=== PATIENT | female | born 1940 | race Caucasian/White ===

== ENCOUNTER 2016-03-09 14:12 | Observation (INO) | payer MEDICARE ==
--- NOTE | 2016-03-09 15:30 | ED ---
Fall HPI <Perfecto Camacho - Last Filed: 03/09/16 17:02> - General Source: patient, RN notes reviewed Mode of arrival: wheelchair <Johanny Cai - Last Filed: 03/09/16 17:29> - General Chief Complaint: Fall Stated Complaint: Fall Time Seen by Provider: 03/09/16 15:03 - History of Present Illness Initial Comments: 75 yo female presents to the ER with cc of fall. Patient states that yesterday she fell. Patient states all of a sudden she fell. Patient denies any lightheadedness or dizziness or chest pain or shortness of breath for the fall but does not really remember the fall. Patient was out for a few minutes after she fell. Patient felt left side of the face. Patient states she has left knee and right ankle pain from the fall as well. Patient states since the fall she just feels more unsteady than normal. Patient states isn't seen because her legs were just seems like if she didn't have her walker she'll most fall forward every time that she got up to move. Patient states she does have a little bit of a headache at this time he'll deep into her skull. Patient denies any neck pain. Patient denies any nausea vomiting. Patient states that she was concerned due to the fall so she thought that she should be evaluated. Patient denies any recent fever, chills, shortness of breath, chest pain, back pain, abdominal pain, nausea vomiting, numbness or tingling, dysuria or hematuria, constipation or diarrhea, headaches or visual changes, or any other current symptoms. (Johanny Cai) - Related Data Home Medications Medication Instructions Recorded Confirmed Adalimumab [Humira] 40 mg SQ WE 02/26/14 03/09/16 Levothyroxine Sodium [Synthroid] 274 mcg PO MOTUWETHFRSA 02/26/14 03/09/16 Simvastatin [Simvastatin] 40 mg PO HS 02/26/14 03/09/16 glyBURIDE/METFORMIN HCL 1 tab PO BID 02/26/14 03/09/16 [Glucovance 2.5-500 mg Tablet] Bisacodyl [Dulcolax] 5 mg PO QID 02/27/14 03/09/16 Calcium Carbonate/Vitamin D3 1 tab PO BID 02/27/14 03/09/16 [Calcium 600 + Vit D Tablet] Carisoprodol [Soma] 350 mg PO ACHS 02/27/14 03/09/16 Clotrimazole Cream [Lotrimin Cream] 1 applic TOPICAL DAILY PRN 02/27/14 03/09/16 Ergocalciferol [Vitamin D2 50,000 units PO LONG 02/27/14 03/09/16 (DRISDOL)] Fexofenadine/Pseudoephedrine 1 tab PO QID 02/27/14 03/09/16 [Iris-D 24 Hour Tablet] Gabapentin [Neurontin] 1,200 mg PO TID 02/27/14 03/09/16 Glucosamine Sulfate 1,500 mg PO DAILY 02/27/14 03/09/16 HYDROcodone/APAP 10-325MG [[place] 1 tab PO TID PRN 02/27/14 03/09/16 10-325] Insulin NPH Hum/Reg Insulin Hm See Protocol SQ BID 02/27/14 03/09/16 [NovoLIN 70-30 100 UNIT/ML VIAL] Lansoprazole [Prevacid] 15 mg PO HS 02/27/14 03/09/16 Levothyroxine Sodium [Synthroid] 137 mcg PO LONG 02/27/14 03/09/16 Morphine Sulfate ER [Ms Contin 30 mg PO Q12HR 02/27/14 03/09/16 30Mg] Multivitamins, Thera [Multivitamin] 1 tab PO DAILY 02/27/14 03/09/16 Pilocarpine HCl [Salagen] 7.5 mg PO TID 02/27/14 03/09/16 predniSONE 4 mg PO QAM 02/27/14 03/09/16 Aspirin 325 mg PO DAILY 03/09/16 03/09/16 Gabapentin 1,600 mg PO HS 03/09/16 03/09/16 Latanoprost [Xalatan 0.005%] 1 drop BOTH EYES HS 03/09/16 03/09/16 Magnesium 600 mg PO DAILY 03/09/16 03/09/16 Moexipril HCl [Univasc] 15 mg PO QAM 03/09/16 03/09/16 Psyllium Husk [Konsyl] 0.52 gm PO DAILY 03/09/16 03/09/16 hydrOXYzine HCL [Atarax] 50 mg PO HS 03/09/16 03/09/16 Allergies Allergy/AdvReac Type Severity Reaction Status Date / Time adhesive Allergy Rash/Hives Verified 03/09/16 15:28 cephalexin [From Keflex] Allergy Rash/Hives Verified 03/09/16 15:28 Sulfa (Sulfonamide Allergy Rash/Hives Verified 03/09/16 15:28 Antibiotics) Review of Systems ROS Other: All systems not noted in ROS Statement are negative. <Perfecto Camacho - Last Filed: 03/09/16 17:02> ROS Other: All systems not noted in ROS Statement are negative. <Johanny Cai - Last Filed: 03/09/16 17:29> ROS Statement: Those systems with pertinent positive or pertinent negative responses have been documented in the HPI. Past Medical History Past Medical History: Cancer, Diabetes Mellitus, Musculoskeletal Disorder, Neurologic Disorder, Osteoarthritis (OA), Rheumatoid Arthritis (RA), Thyroid Disorder Additional Past Medical History / Comment(s): spinal stenosis, renauds,sjogrens , hypothyroidism, acute kidney failure psoriasis History of Any Multi-Drug Resistant Organisms: MRSA Date of last positivie culture/infection: feb 2014 MDRO Source:: lungs Past Surgical History: Back Surgery, Breast Surgery, Orthopedic Surgery Additional Past Surgical History / Comment(s): cataracts Past Anesthesia/Blood Transfusion Reactions: No Reported Reaction Past Psychological History: No Psychological Hx Reported Additional Psychological History / Comment(s): She does have a history of prior MRSA infection, with the BURSITIS, DID REQUIRE SURGICAL DRAINAGE AND ANTIBIOTIC THERAPY. Smoking Status: Former smoker Past Alcohol Use History: None Reported Past Drug Use History: None Reported - Past Family History Sister(s) Additional Family Medical History / Comment(s): at age 34 with lupus <Johanny Cai - Last Filed: 03/09/16 17:29> General Exam Limitations: no limitations General appearance: alert Head exam: Present: other (Patient does appear to have ecchymosis around the left eye with associated lacerations.) Eye exam: Present: normal appearance ENT exam: Present: normal exam, mucous membranes moist Neck exam: Present: normal inspection. Absent: tenderness, meningismus, lymphadenopathy Respiratory exam: Present: normal lung sounds bilaterally. Absent: respiratory distress, wheezes, rales, rhonchi, stridor Cardiovascular Exam: Present: regular rate, normal rhythm, normal heart sounds. Absent: systolic murmur, diastolic murmur, rubs, gallop, clicks GI/Abdominal exam: Present: soft, normal bowel sounds. Absent: distended, tenderness, guarding, rebound, rigid Extremities exam: Present: normal inspection, full ROM (Except for the right ankle. Patient has pain and limited flexion and extensionmore associated with flexion and extension.), tenderness (Behind the right posterior calf), normal capillary refill. Absent: pedal edema, joint swelling, calf tenderness Back exam: Present: normal inspection Neurological exam: Present: alert, oriented X3, CN II-XII intact, reflexes normal, other. Absent: motor sensory deficit Psychiatric exam: Present: normal affect, normal mood Skin exam: Present: warm, dry, intact, normal color. Absent: rash <Johanny Cai - Last Filed: 03/09/16 17:29> Procedures - Orthopedic Splinting/Casting Injury #1 Side: right Lower Extremity Injury Location: foot Lower Extremity Immobilizer: posterior splint (short leg ) <Johanny Cai - Last Filed: 03/09/16 17:29> Medical Decision Making <Perfecto Camacho - Last Filed: 03/09/16 17:02> - Lab Data Result diagrams: 03/09/16 16:48 03/09/16 16:48 - Radiology Data Radiology results: report reviewed, image reviewed <Johanny Cai - Last Filed: 03/09/16 17:29> - Medical Decision Making The patient was seen and examined. All diagnostics were reviewed. The case was discussed with the PA and I agree with the findings as documented. (Perfecto Camacho) 75-year-old female presents emergency Department chief complaint of fall. At this time patient's head and C-spine and facial bone Scans do appear to be negative. Patient's x-ray and CAT scan of foot due to a calcaneal fracture with an Achilles tendon rupture with a fifth metatarsal fracture as well. This patient was placed in a splint. Due to patient being unsteady on her feet and unable to not bear weight to the right foot and be safe at home we will admit the patient. Due to this being a fall at his in protocol that we did contact orthopedic on-call Dr. Cormier regarding the admission he states does not believe the patient needs to be admitted for the fracture he does not want to be the person that the patient is admitted to. Dr. Hart the patient's Imitrex does agree to the admission due to her chronic issues her obesity her difficulty moving around along with a new foot fracture and unable to bear weight on only one leg and get around the house he does agree to the admission we will admit to Dr. Hart and consult Dr. Cormier We discussed with the patient who is in agreement with the plan. Patient does have chronic dizziness chronic double vision and chronic many other issues. At this time this would be a safer approach for the patient's continued care and outpatient follow-up. This was discussed the patient and family who are in agreement. (Johanny Cai) - Lab Data Lab Results 03/09/16 03/09/16 03/09/16 Range/Units 16:48 16:48 16:48 WBC 9.4 (3.8-10.6) k/uL RBC 4.34 (3.80-5.40) m/uL Hgb 12.4 (11.4-16.0) gm/dL Hct 39.6 (34.0-46.0) % MCV 91.1 (80.0-100.0) fL MCH 28.6 (25.0-35.0) pg MCHC 31.4 (31.0-37.0) g/dL RDW 14.2 (11.5-15.5) % Plt Count 207 (150-450) k/uL Neutrophils % 65 % Lymphocytes % 25 % Monocytes % 7 % Eosinophils % 2 % Basophils % 1 % Neutrophils # 6.1 (1.3-7.7) k/uL Lymphocytes # 2.3 (1.0-4.8) k/uL Monocytes # 0.6 (0-1.0) k/uL Eosinophils # 0.2 (0-0.7) k/uL Basophils # 0.1 (0-0.2) k/uL PT 10.5 (9.0-12.0) sec INR 1.0 (<1.1) APTT 23.6 (22.0-30.0) sec Sodium 138 (137-145) mmol/L Potassium 4.7 (3.5-5.1) mmol/L Chloride 97 L (98-107) mmol/L Carbon Dioxide 31 H (22-30) mmol/L Anion Gap 10 mmol/L BUN 19 H (7-17) mg/dL Creatinine 0.77 (0.52-1.04) mg/dL Est GFR (MDRD) Af Amer >60 (>60 ml/min/1.73 sqM) Est GFR (MDRD) Non-Af >60 (>60 ml/min/1.73 sqM) Glucose 174 H (74-99) mg/dL Calcium 9.3 (8.4-10.2) mg/dL Total Bilirubin 0.3 (0.2-1.3) mg/dL AST 30 (14-36) U/L ALT 33 (9-52) U/L Alkaline Phosphatase 63 (38-126) U/L Total Protein 6.7 (6.3-8.2) g/dL Albumin 3.9 (3.5-5.0) g/dL Disposition <Perfecto Camacho - Last Filed: 03/09/16 17:02> Time of Disposition: 17:06 Decision Date: 03/09/16 Decision Time: 17:06 <Johanny Cai - Last Filed: 03/09/16 17:29> Clinical Impression: Fall, Contusion, eye, left, Concussion with loss of consciousness, Abrasion, left knee, initial encounter, Fracture of metatarsal of right foot, closed, Avulsion fracture of calcaneus, Avulsion of achilles tendon Disposition: ADMITTED IP TO THIS [facility] Condition: Stable
--- NOTE | 2016-03-09 16:03 | XR ---
EXAMINATION TYPE: XR ankle complete RT DATE OF EXAM: 03/09/2016 3:59 PM COMPARISON: NONE HISTORY: Pain fall TECHNIQUE: 3 views right ankle FINDINGS: Degenerative joint changes are at the ankle. Secondary ossification centers or old fracture s are evident in the medial malleolus. There is soft tissue swelling over the lateral malleolus. Ankl e mortise is intact. A fracture of the ankle is not identified There is an avulsion and displacement of the posterior superior calcaneus on the lateral projection. Also correlate for Achilles tendon avulsion. On the frontal and oblique views there is a broad space between the first and second metatarsals part ially visualized. This could suggest an underlying Lisfranc fracture. Additional evaluation of the fo ot is recommended. IMPRESSION: 1. Avulsion from the superior posterior calcaneus. Secondary avulsion of the Achilles tendon is also suspected. 2. Additional evaluation of foot is recommended. There is a broad space between the first and second metatarsals suggestive for Lisfranc fracture. 3. Soft tissue swelling lateral malleolus.
--- NOTE | 2016-03-09 16:04 | XR ---
EXAMINATION TYPE: XR knee complete LT DATE OF EXAM: 03/09/2016 3:59 PM COMPARISON: NONE HISTORY: Pain, fall TECHNIQUE: 3 view left knee FINDINGS: There is loss of joint space from the medial compartment. Medial and lateral tibial plateau spurring is present. Moderate narrowing of the lateral compartment joint space is present. Medial an d lateral femoral condylar spurring is present. No significant joint effusion is evident. Patellofemo ral spurring is present. IMPRESSION: 1. No acute osseous abnormality. 2. Moderately advanced degenerative changes left knee
--- NOTE | 2016-03-09 16:23 | CT ---
EXAMINATION TYPE: CT brain simon wo con DATE OF EXAM: 03/09/2016 4:13 PM COMPARISON: NONE HISTORY: Left sided facial bruising post fall yesterday CT DLP: 2610 mGycm, Automated exposure control for dose reduction was used. CONTRAST: None CT of the brain is performed utilizing 3 mm thick sections through the posterior fossa and 3 mm thick sections through the remaining calvarium. Study is performed within 24 hours of arrival to the hospital. No abnormal hyperdensity is present to suggest an acute intracranial hemorrhage. No mass lesion is evident. No acute infarcts are evident. Minimal periventricular white matter ischemic type changes may be pre sent. Ventricles and sulci are appropriate for the patient age. Paranasal sinuses and mastoid air cells within the [id number] are clear. IMPRESSIONS: 1. No acute intracranial process. CT cervical spine. COMPARISON: None CT of the cervical spine is performed in the axial plane at 2 mm thick sections. Reconstructed image s in the coronal, and sagittal plane are reviewed on the computer. No acute fractures are evident. There is a grade 1 spondylolisthesis of C7 anterior and T1. Postsurgical changes are present C4-C6 Vertebral body heights are preserved. No spinal canal stenosis is evident. Severe left and moderate right foraminal stenosis at C3-4 level is present due to uncovertebral joint hypertrophy and facet hypertrophy. There is severe right foraminal stenosis C4-C5. IMPRESSIONS: 1. Multilevel degenerative disc changes. 2. Postsurgical changes. 3. Foraminal stenosis discussed above
--- NOTE | 2016-03-09 16:25 | CT ---
EXAMINATION TYPE: CT facial bones wo con DATE OF EXAM: 03/09/2016 4:13 PM COMPARISON: NONE HISTORY: Left sided facial bruising post fall yesterday CT DLP: 2610 mGycm Automated exposure control for dose reduction was used. TECHNIQUE: CT scan of the sinuses is performed without contrast, axial images are obtained, coronal r eformatted images are also reviewed. FINDINGS: No acute fractures are evident. The maxillary spine appears intact. Maxillary sinuses are clear. Ethm oid air cells are clear. Sphenoid sinuses are clear. Frontal sinuses are normal. No acute fractures a re evident. Zygomatic arches are intact. Greater wings of the sphenoid are normal. Temporomandibular joints appear normal. Right septal deviation is present. The ostiomeatal units are patent rate orbits are symmetrical. No b lowout fractures are evident. Some mild left cheek periorbital and left lateral soft tissue swelling is present. IMPRESSION: 1. Mild superficial soft tissue swelling. 2. No underlying fractures are evident.
--- NOTE | 2016-03-09 16:42 | CT ---
EXAMINATION TYPE: CT foot RT wo con DATE OF EXAM: 03/09/2016 4:34 PM COMPARISON: NONE HISTORY: Recent falls. Right foot pain. CT DLP: 169.20 mGycm Automated exposure control for dose reduction was used. Three-D reconstructed images are performed separately by the technologist on a separate computer revi ewed on the PACS. FINDINGS: Degenerative changes are noted through the ankle mortise. Acute fracture at the ankle mortise is not identified. There is an avulsion from the superior calcaneus. Additional calcification may be present more superi or to the calcaneal avulsion suggested for Achilles tendon tear. Soft tissue increased density can be compatible with the Achilles tendon tear. The space between the first and second metatarsal identified on the ankle images appears to be relate d to degenerative change in these images. An acute tarsal fracture is not identified. There is a nond isplaced fracture of the proximal fifth metatarsal. IMPRESSION: 1. AVULSION FROM THE POSTERIOR SUPERIOR CALCANEUS. 2. AVULSION OF THE ACHILLES TENDON INSERTION FROM THE CALCANEAL AVULSION. 3. NONDISPLACED FRACTURE PROXIMAL FIFTH METATARSAL. 4. DEGENERATIVE JOINT CHANGES.
[2016-03-09 17:03] LABS: Basophils # (A) 0.1 k/uL (0-0.2); Basophils % (A) 1 %; CH 28.8; CHCM 31.8; Eosinophils # (A) 0.2 k/uL (0-0.7); Eosinophils % (A) 2 %; HCT 39.6 % (34.0-46.0); HDW 2.46; HGB 12.4 gm/dL (11.4-16.0); Luc # (Auto) 0.13; Luc % (Auto) 1; Lymphocytes # (A) 2.3 k/uL (1.0-4.8); Lymphocytes % (A) 25 %; MCH 28.6 pg (25.0-35.0); MCHC 31.4 g/dL (31.0-37.0); MCV 91.1 fL (80.0-100.0); Mean Platelet Volume 7.4; Monocytes # (A) 0.6 k/uL (0-1.0); Monocytes % (A) 7 %; Neutrophils # (A) 6.1 k/uL (1.3-7.7); Neutrophils % (A) 65 %; RBC 4.34 m/uL (3.80-5.40); RDW 14.2 % (11.5-15.5); WBC 9.4 k/uL (3.8-10.6); WBC (Perox) 9.71
[2016-03-09] MEDS ORDERED: ONDANSETRON 4 MG/2 ML VIAL IVP PRN (17:07)
[2016-03-09] MEDS ORDERED: NALOXONE 0.4 MG/ML 1 ML VIAL IV PRN (17:07)
[2016-03-09] MEDS ORDERED: HYDROcodone/APAP 10-325MG 1 EACH TAB PO PRN ×2 (17:11→21:49)
[2016-03-09] MEDS ORDERED: CLOTRIMAZOLE 1% CREAM 15 GM TUBE TOPICAL PRN (17:11)
[2016-03-09 17:13] LABS: Partial Thromboplastin Time 23.6 sec (22.0-30.0); Prothrombin Time 10.5 sec (9.0-12.0)
[2016-03-09] MEDS ORDERED: ADALIMUMAB 40 MG SQ SCH (17:15)
[2016-03-09 17:16] LABS: ALT 33 U/L (9-52); AST 30 U/L (14-36); Alkaline Phosphatase 63 U/L (38-126); Anion Gap 10 mmol/L; Blood Urea Nitrogen 19 mg/dL (7-17); Calcium 9.3 mg/dL (8.4-10.2); Carbon Dioxide 31 mmol/L (22-30); Chloride 97 mmol/L (98-107); Glucose 174 mg/dL (74-99); Non-African American GFR(MDRD) >60 (>60 ml/min/1.73 sqM); Potassium 4.7 mmol/L (3.5-5.1); Sodium 138 mmol/L (137-145); Total Bilirubin 0.3 mg/dL (0.2-1.3); Total Protein 6.7 g/dL (6.3-8.2)
[2016-03-09] MEDS ORDERED: glipiZIDE 5 MG TAB PO SCH (18:00)
[2016-03-09] MEDS ORDERED: LORATADINE-PSEUDOEPH 5-120 MG 1 EACH TAB.ER.12H PO PRN (18:00)
[2016-03-09] MEDS ORDERED: metFORMIN 500 MG TAB PO SCH (18:00)
[2016-03-09] MEDS ORDERED: GABAPENTIN 400 MG CAP PO SCH ×2 (18:00→21:00)
[2016-03-09 20:53] LABS: Glucose,Whole Blood 202 mg/dL (75-99)
[2016-03-09] MEDS ORDERED: LATANOPROST 0.005% OPHTH DROPS 2.5 ML BTL BOTH EYES SCH (21:00)
[2016-03-09] MEDS ORDERED: NEURONTIN 800 MG PO SCH (21:00)
[2016-03-09] MEDS ORDERED: hydrOXYzine HCL 25 MG TAB PO SCH (21:00)
[2016-03-09] MEDS ORDERED: ATORVASTATIN 20 MG TAB PO SCH (21:00)
[2016-03-09] MEDS ORDERED: PANTOPRAZOLE 40 MG TABLET PO SCH (21:00)
[2016-03-09] MEDS: CARISOPRODOL 350 MG TAB PO SCH ×2 (21:01→23:24)
[2016-03-09] MEDS: BISACODYL 5 MG TABLET.DR PO SCH (21:01)
[2016-03-09] MEDS: CALCIUM CARB-VIT D 500MG-200UN 1 EACH TAB PO SCH (21:02)
[2016-03-09] MEDS: MORPHINE SULFATE ER 30 MG TABLET PO SCH (21:02)
[2016-03-09] MEDS: PILOCARPINE 5 MG TAB PO SCH (21:03)
[2016-03-09] MEDS ORDERED: MORPHINE SULFATE ER 30 MG TABLET PO STA (21:50)
[2016-03-10] MEDS: SODIUM CHLORIDE 0.9% 1,000 ML IV SCH ×3 (04:05→15:29)
[2016-03-10] MEDS ORDERED: LEVOTHYROXINE 137 MCG TAB PO SCH (06:30)
[2016-03-10 06:58] LABS: Glucose,Whole Blood 126 mg/dL (75-99)
[2016-03-10] MEDS ORDERED: GABAPENTIN 400 MG CAP PO SCH (07:30)
[2016-03-10] MEDS: INSULIN LISPRO (humaLOG) 300 UNIT/3 ML VIAL SQ SCH ×2 (07:54→13:21)
[2016-03-10] MEDS ORDERED: HYDROmorphone 1 MG/ML 1 ML SYRINGE IVP PRN (08:36)
--- NOTE | 2016-03-10 08:36 | P.HPIM ---
History of Present Illness This is a history and physical on a 75-year-old white female who has a history of diabetic neuropathy. The patient states she fell secondary to the fact that she has visual distortion and depth perception issues. She states she does struggle with this. Because of the fall, foot CT does show avulsion fracture of the posterior superior calcaneus with Achilles tendon insertion issue from the calcaneal avulsion. She also hasfracture of the proximal fifth metatarsal secondary to the fall. Have kept her nothing by mouth if orthopedics needs to repair from a surgical perspective. She is requesting Neurontin for her chronic neuropathic pain. I will allow this medication to continue. She is also on diabetes medication which will be held secondary to being nothing by mouth. Review of Systems Constitutional: Denies chills, Denies fever Eyes: left diplopia Ears, nose, mouth and throat: Denies headache, Denies sore throat Cardiovascular: Denies chest pain, Denies shortness of breath Respiratory: Denies cough Gastrointestinal: Denies abdominal pain, Denies diarrhea, Denies nausea, Denies vomiting Genitourinary: Denies dysuria, Denies hematuria Musculoskeletal: Denies myalgias Past Medical History Past Medical History: Cancer, Diabetes Mellitus, Musculoskeletal Disorder, Neurologic Disorder, Osteoarthritis (OA), Pneumonia, Rheumatoid Arthritis (RA), Thyroid Disorder Additional Past Medical History / Comment(s): spinal stenosis, reYnauds,sjogrens ," BALANCE ISSUES,SINUS 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 Past Anesthesia/Blood Transfusion Reactions: No Reported Reaction Past Psychological History: No Psychological Hx Reported Additional Psychological History / Comment(s): She does have a history of prior MRSA infection, with the BURSITIS, DID REQUIRE SURGICAL DRAINAGE AND ANTIBIOTIC THERAPY. Smoking Status: Former smoker Past Alcohol Use History: None Reported Additional Past Alcohol Use History / Comment(s): QUIT SMOKING 1970 Past Drug Use History: None Reported - Past Family History Mother Family Medical History: CVA/TIA Additional Family Medical History / Comment(s): RUPTURED BOWEL Father Family Medical History: Cancer, Pneumonia Additional Family Medical History / Comment(s): ASPIRATIVE PNE Sister(s) Additional Family Medical History / Comment(s): at age 34 with lupus Medications and Allergies Home Medications Medication Instructions Recorded Confirmed Type Adalimumab [Humira] 40 mg SQ WE 02/26/14 03/09/16 History Levothyroxine Sodium [Synthroid] 274 mcg PO MOTUWETHFRSA 02/26/14 03/09/16 History Simvastatin [Simvastatin] 40 mg PO HS 02/26/14 03/09/16 History glyBURIDE/METFORMIN HCL 1 tab PO BID 02/26/14 03/09/16 History [Glucovance 2.5-500 mg Tablet] Bisacodyl [Dulcolax] 5 mg PO QID 02/27/14 03/09/16 History Calcium Carbonate/Vitamin D3 1 tab PO BID 02/27/14 03/09/16 History [Calcium 600 + Vit D Tablet] Carisoprodol [Soma] 350 mg PO ACHS 02/27/14 03/09/16 History Clotrimazole Cream [Lotrimin Cream] 1 applic TOPICAL DAILY PRN 02/27/14 History Ergocalciferol [Vitamin D2 50,000 units PO LONG 02/27/14 03/09/16 History (DRISDOL)] Fexofenadine/Pseudoephedrine 1 tab PO QID 02/27/14 03/09/16 History [Iris-D 24 Hour Tablet] Gabapentin [Neurontin] 1,200 mg PO TID 02/27/14 03/09/16 History Glucosamine Sulfate 1,500 mg PO DAILY 02/27/14 03/09/16 History HYDROcodone/APAP 10-325MG [[place] 1 tab PO TID PRN 02/27/14 03/09/16 History 10-325] Insulin NPH Hum/Reg Insulin Hm See Protocol SQ BID 02/27/14 03/09/16 History [NovoLIN 70-30 100 UNIT/ML VIAL] Lansoprazole [Prevacid] 15 mg PO HS 02/27/14 03/09/16 History Levothyroxine Sodium [Synthroid] 137 mcg PO LONG 02/27/14 03/09/16 History Morphine Sulfate ER [Ms Contin 30 mg PO Q12HR 02/27/14 03/09/16 History 30Mg] Multivitamins, Thera [Multivitamin] 1 tab PO DAILY 02/27/14 03/09/16 History Pilocarpine HCl [Salagen] 7.5 mg PO TID 02/27/14 03/09/16 History predniSONE 4 mg PO QAM 02/27/14 03/09/16 History Aspirin 325 mg PO DAILY 03/09/16 03/09/16 History Gabapentin 1,600 mg PO HS 03/09/16 03/09/16 History Latanoprost [Xalatan 0.005%] 1 drop BOTH EYES HS 03/09/16 03/09/16 History Magnesium 600 mg PO DAILY 03/09/16 03/09/16 History Moexipril HCl [Univasc] 15 mg PO QAM 03/09/16 03/09/16 History Psyllium Husk [Konsyl] 0.52 gm PO DAILY 03/09/16 03/09/16 History hydrOXYzine HCL [Atarax] 50 mg PO HS 03/09/16 03/09/16 History Allergies Allergy/AdvReac Type Severity Reaction Status Date / Time adhesive Allergy Rash/Hives Verified 03/09/16 15:28 cephalexin [From Keflex] Allergy Rash/Hives Verified 03/09/16 15:28 Sulfa (Sulfonamide Allergy Rash/Hives Verified 03/09/16 15:28 Antibiotics) Physical Exam Vitals: Vital Signs Temp Pulse Pulse Pulse Resp BP BP 03/10/16 07:00 97.8 F 74 18 131/60 03/09/16 23:00 97.8 F 80 16 153/63 03/09/16 20:29 97.3 F L 81 16 140/65 03/09/16 18:26 79 14 142/65 Pulse Ox 03/10/16 07:00 93 L 03/09/16 23:00 94 L 03/09/16 20:29 93 L 03/09/16 18:26 95 Intake and Output 03/09/16 03/10/16 03/10/16 22:59 06:59 14:59 Intake Total 200 300 Balance 200 300 Intake: Intake, IV Titration 300 Amount Sodium Chloride 0.9% 1, 300 000 ml @ 100 mls/hr IV . Q10H ASHUTOSH Rx#:[id number] Oral 200 Other: Voiding Method Toilet Bedside Commode # Voids 1 1 # Bowel Movements 1 Weight 116.573 kg - Constitutional General appearance: obese - EENT Bruising of the left periorbital area secondary to the fall. Eyes: EOMI - Neck Neck: no lymphadenopathy - Respiratory Respiratory: bilateral: CTA - Cardiovascular Rhythm: regular Heart sounds: normal: S1, S2 - Gastrointestinal General gastrointestinal: soft, no tenderness Results CBC & Chem 7: 03/09/16 16:48 03/09/16 16:48 Labs: Abnormal Lab Results - Last 24 Hours (Table) 03/09/16 03/10/16 Range/Units 20:51 06:56 POC Glucose (mg/dL) 202 H 126 H (75-99) mg/dL Thrombosis Risk Factor Assmnt - Choose All That Apply Any of the Below Risk Factors Present?: Yes Each Factor Represents 1 point: Obesity (BMI >25) Other Risk Factors: Yes Each Risk Factor Represents 2 Points: Age 61-74 years, Malignancy Other congenital or acquired thrombophilia - If yes, enter type in comment: No Thrombosis Risk Factor Assessment Total Risk Factor Score: 5 Thrombosis Risk Factor Assessment Level: High Risk Assessment and Plan (1) Avulsion fracture of calcaneus Status: Acute (2) Avulsion of achilles tendon Status: Acute (3) Contusion, eye, left Status: Acute (4) Fall Status: Acute (5) Fracture of metatarsal of right foot, closed Status: Acute (6) Diabetes Status: Acute Plan: We'll go ahead and await orthopedic evaluation. Otherwise, keep nothing by mouth for possible surgical repair. Restart Neurontin as requested. Place on sliding scale for diabetes. If surgical treatment is unnecessary, restart home medications immediately and possibly discharge if weightbearing element is addressed with orthopedics. See orders otherwise. Time with Patient: Greater than 30
[2016-03-10] MEDS ORDERED: ASPIRIN 325 MG TAB PO SCH (09:00)
[2016-03-10] MEDS ORDERED: LISINOPRIL 20 MG TAB PO SCH (09:00)
[2016-03-10] MEDS ORDERED: MAGNESIUM OXIDE 400 MG TAB PO SCH (09:00)
[2016-03-10] MEDS ORDERED: predniSONE 1 MG TAB PO SCH (09:00)
[2016-03-10] MEDS ORDERED: MULTIVITAMINS, THERA 1 EACH TAB PO SCH (09:00)
[2016-03-10] MEDS ORDERED: PSYLLIUM HUSK 100% 6 GM PACKET PO SCH (09:00)
[2016-03-10] MEDS: PILOCARPINE 5 MG TAB PO SCH (09:07)
[2016-03-10] MEDS: CALCIUM CARB-VIT D 500MG-200UN 1 EACH TAB PO SCH (09:09)
[2016-03-10] MEDS: NEURONTIN 800 MG PO SCH ×2 (09:10→13:21)
[2016-03-10 09:12] LABS: Basophils # (A) 0.1 k/uL (0-0.2); Basophils % (A) 2 %; CH 28.8; CHCM 31.8; Eosinophils # (A) 0.3 k/uL (0-0.7); Eosinophils % (A) 3 %; HCT 39.3 % (34.0-46.0); HDW 2.41; HGB 12.1 gm/dL (11.4-16.0); Luc # (Auto) 0.18; Luc % (Auto) 2; Lymphocytes % (A) 42 %; MCH 28.1 pg (25.0-35.0); MCHC 30.9 g/dL (31.0-37.0); Mean Platelet Volume 7.4; Monocytes # (A) 0.6 k/uL (0-1.0); Monocytes % (A) 6 %; Neutrophils # (A) 4.3 k/uL (1.3-7.7); Neutrophils % (A) 46 %; RBC 4.32 m/uL (3.80-5.40); RDW 14.1 % (11.5-15.5); WBC 9.4 k/uL (3.8-10.6); WBC (Perox) 9.55
[2016-03-10 09:33] LABS: ALT 36 U/L (9-52); AST 26 U/L (14-36); Alkaline Phosphatase 66 U/L (38-126); Anion Gap 11 mmol/L; Blood Urea Nitrogen 15 mg/dL (7-17); Calcium 9.6 mg/dL (8.4-10.2); Carbon Dioxide 32 mmol/L (22-30); Chloride 98 mmol/L (98-107); Glucose 134 mg/dL (74-99); Non-African American GFR(MDRD) >60 (>60 ml/min/1.73 sqM); Potassium 4.6 mmol/L (3.5-5.1); Sodium 141 mmol/L (137-145); Total Bilirubin 0.5 mg/dL (0.2-1.3)
[2016-03-10] MEDS: CARISOPRODOL 350 MG TAB PO SCH ×2 (11:01→11:20)
[2016-03-10] MEDS: BISACODYL 5 MG TABLET.DR PO SCH ×2 (11:01→11:13)
[2016-03-10] MEDS: MORPHINE SULFATE ER 30 MG TABLET PO SCH (11:20)
[2016-03-10 12:09] LABS: Hemoglobin A1C 6.4 % (4.2-6.1)
[2016-03-10 12:36] LABS: Glucose,Whole Blood 154 mg/dL (75-99)
--- NOTE | 2016-03-10 12:46 | P.CNOR ---
History of Present Illness - [facility] Consult date: 03/10/16 Consult reason: fracture History of present illness: This is a 75-year-old female who fell in her home this week sustaining injury to her head and right foot. She states that she gets dizzy and lightheaded often secondary to her neurologic condition. She states that she got dizzy yesterday and fell in her home. She recalls falling but was told that she did have a short loss of consciousness. She complains of pain about the foot and ankle. She is admitted for her multiple medical problems and evaluation of her fracture. Past Medical History Past Medical History: Cancer, Diabetes Mellitus, Musculoskeletal Disorder, Neurologic Disorder, Osteoarthritis (OA), Pneumonia, Rheumatoid Arthritis (RA), Thyroid Disorder Additional Past Medical History / Comment(s): spinal stenosis, reYnauds,sjogrens ," BALANCE ISSUES,SINUS INFECTIONSHAS HAD DOUBLE VISION ALL HER LIFE" hypothyroidism, acute kidney failure psoriasis UTI STATED TAKING ABX, 03-09-16 FALL/RT FOOT FX AND LT EYE CONTUSION.melanoma skin cancer lt arm, egd/ colonoscopy, History of Any Multi-Drug Resistant Organisms: MRSA Year Discovered:: feb 2014 MDRO Source:: lungs Past Surgical History: Back Surgery, Breast Surgery, Orthopedic Surgery Additional Past Surgical History / Comment(s): cataracts, arthroscopies to lt wrist, gualberto knees, gualberto ankles, gualberto hips, lt hip replacment and redone, lt shoulder sx, rt breast bx,egd/colonoscopy. Past Anesthesia/Blood Transfusion Reactions: No Reported Reaction Past Psychological History: No Psychological Hx Reported Additional Psychological History / Comment(s): She does have a history of prior MRSA infection, with the BURSITIS, DID REQUIRE SURGICAL DRAINAGE AND ANTIBIOTIC THERAPY. Smoking Status: Former smoker Past Alcohol Use History: None Reported Additional Past Alcohol Use History / Comment(s): QUIT SMOKING 1970 Past Drug Use History: None Reported - Past Family History Mother Family Medical History: CVA/TIA Additional Family Medical History / Comment(s): RUPTURED BOWEL Father Family Medical History: Cancer, Pneumonia Additional Family Medical History / Comment(s): ASPIRATIVE PNE Sister(s) Additional Family Medical History / Comment(s): at age 34 with lupus Medications and Allergies Home Medications Medication Instructions Recorded Confirmed Type Adalimumab [Humira] 40 mg SQ WE 02/26/14 03/09/16 History Levothyroxine Sodium [Synthroid] 274 mcg PO MOTUWETHFRSA 02/26/14 03/09/16 History Simvastatin [Simvastatin] 40 mg PO HS 02/26/14 03/09/16 History glyBURIDE/METFORMIN HCL 1 tab PO BID 02/26/14 03/09/16 History [Glucovance 2.5-500 mg Tablet] Bisacodyl [Dulcolax] 5 mg PO QID 02/27/14 03/09/16 History Calcium Carbonate/Vitamin D3 1 tab PO BID 02/27/14 03/09/16 History [Calcium 600 + Vit D Tablet] Carisoprodol [Soma] 350 mg PO ACHS 02/27/14 03/09/16 History Clotrimazole Cream [Lotrimin Cream] 1 applic TOPICAL DAILY PRN 02/27/14 History Ergocalciferol [Vitamin D2 50,000 units PO LONG 02/27/14 03/09/16 History (DRISDOL)] Fexofenadine/Pseudoephedrine 1 tab PO QID 02/27/14 03/09/16 History [Iris-D 24 Hour Tablet] Gabapentin [Neurontin] 1,200 mg PO TID 02/27/14 03/09/16 History Glucosamine Sulfate 1,500 mg PO DAILY 02/27/14 03/09/16 History HYDROcodone/APAP 10-325MG [[place] 1 tab PO TID PRN 02/27/14 03/09/16 History 10-325] Insulin NPH Hum/Reg Insulin Hm See Protocol SQ BID 02/27/14 03/09/16 History [NovoLIN 70-30 100 UNIT/ML VIAL] Lansoprazole [Prevacid] 15 mg PO HS 02/27/14 03/09/16 History Levothyroxine Sodium [Synthroid] 137 mcg PO LONG 02/27/14 03/09/16 History Morphine Sulfate ER [Ms Contin 30 mg PO Q12HR 02/27/14 03/09/16 History 30Mg] Multivitamins, Thera [Multivitamin] 1 tab PO DAILY 02/27/14 03/09/16 History Pilocarpine HCl [Salagen] 7.5 mg PO TID 02/27/14 03/09/16 History predniSONE 4 mg PO QAM 02/27/14 03/09/16 History Aspirin 325 mg PO DAILY 03/09/16 03/09/16 History Gabapentin 1,600 mg PO HS 03/09/16 03/09/16 History Latanoprost [Xalatan 0.005%] 1 drop BOTH EYES HS 03/09/16 03/09/16 History Magnesium 600 mg PO DAILY 03/09/16 03/09/16 History Moexipril HCl [Univasc] 15 mg PO QAM 03/09/16 03/09/16 History Psyllium Husk [Konsyl] 0.52 gm PO DAILY 03/09/16 03/09/16 History hydrOXYzine HCL [Atarax] 50 mg PO HS 03/09/16 03/09/16 History Allergies Allergy/AdvReac Type Severity Reaction Status Date / Time adhesive Allergy Rash/Hives Verified 03/09/16 15:28 cephalexin [From Keflex] Allergy Rash/Hives Verified 03/09/16 15:28 Sulfa (Sulfonamide Allergy Rash/Hives Verified 03/09/16 15:28 Antibiotics) Physical Examination This is a 75-year-old female in no acute distress. She is alert and oriented 3. Exam of the head and neck reveal ecchymosis about the left orbit with a superficial laceration above the eye about the brow line. There is minimal pain with cervical spine motion. Minimal pain on palpation about cervical spine. Exam of the upper extremities unremarkable. She has fairly good shoulder, elbow , wrist and finger motion without difficulty or pain. Neurovascular status the upper extremities is intact. Exam of the lower extremities reveals soft dressing in place to the right ankle. She has removed the splint that was put on by the ER. There is no hip irritability noted. She can straight leg raise bilaterally. There is swelling and ecchymosis to the right foot and ankle, particularly about the posterior aspect of the heel. Skin is intact but there is questionable integrity to the skin due to the swelling. She is unable to actively dorsiflex or plantarflex the foot. She has full toe motion without difficulty or pain. There is pain with palpation about the lateral aspect of the foot and the heel. Neurovascular status to the lower extremities intact. Results X-ray and computed tomography scan of the foot and ankle reveal a displaced posterior calcaneus fracture consistent with an Achilles avulsion. There is also a nondisplaced fracture of the base of the fifth metatarsal. 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 Knee x-rays revealmoderate degenerative arthritis. No acute fractures identified. It appears there is an old healed fracture the proximal fibula. Facial CT revealed no acute fractures. - Labs Labs: Abnormal Lab Results - Last 24 Hours (Table) 03/09/16 03/10/16 03/10/16 Range/Units 20:51 06:56 08:46 MCHC 30.9 L (31.0-37.0) g/dL POC Glucose (mg/dL) 202 H 126 H (75-99) mg/dL H & H 03/10/16 Range/Units 08:46 Hgb 12.1 (11.4-16.0) gm/dL Hct 39.3 (34.0-46.0) % Result Diagrams: 03/10/16 08:46 03/10/16 08:46 Assessment and Plan (1) Avulsion fracture of calcaneus Status: Acute (2) Avulsion of achilles tendon Status: Acute (3) Concussion with loss of consciousness Status: Acute (4) Contusion, eye, left Status: Acute (5) Fracture of metatarsal of right foot, closed Status: Acute Plan: This is a 75-year-old female with multiple medical comorbidities with a significant injury to her right foot. It is discussed with the patient that she may possibly require surgical fixation. It is discussed that her skin is an issue, especially with her history of diabetes. I recommended the patient be placed in a short leg well-padded splint which she adamantly refuses. I also recommended that she have the heel off of the bed with a rolled towel to protect her skin, which she also refuses. I did get her to agreed to a pillow under the calf to raise the heel. I have recommended that she be evaluated by Dr. Lee who is our foot and ankle specialist. The patient is a bit agitated on exam today and states that she has no idea who Dr. Lee is and does not want to see him. I tried to explain to her the significance of her injury and the benefit of a specialist and I assured her of Dr Lee's qualifications. She still refused. She also went on for about 10 minutes about another orthopedic surgeon in our group stating that she had a horrible outcome and would not see him either. She states that she will only see Dr. Shearer. With her history of negative experiences I offered evaluation by the other orthopedic group in town which she refused. I discussed the case with Dr. Shearer. She has apparently been a noncompliant patient who has had several complaints regarding her care whenever she is in our office. Dr. Shearer has stated in the patient's chart that he will no longer see her as a patient. He too felt that she should be evaluated by a foot and ankle surgeon. The case is discussed between Dr. Shearer and Dr. Lee and they agreed that the patient should be transferred to a tertiary care center to be evaluated by a foot and ankle specialist or traumatologist. The patient was not willing to be evaluated by our foot and ankle specialist initially, and the surgeons in our practice feel that it would be a significant conflict of interest to treat this patient at this time. She would be best served by evaluation in a trauma Center. This has been discussed with the outpatient case manager, Jeannette Romero.
--- NOTE | 2016-03-10 13:46 | P.CNOR ---
History of Present Illness - [facility] Consult date: 03/10/16 Consult reason: fracture History of present illness: This is a 75-year-old female who is seen and examined today at bedside. Patient was recently admitted to [facility] after sustaining a fall at her home. Patient has a very significant history of falls. Patient deals with double vision and difficulty with depth perception. Patient states that she was walking along and feels that she tripped, she fell forward hitting her left side of her face along with hitting the left knee and obviously the right ankle and foot. Patient noted some increasing pain in the right foot, and decided to come to the hospital. Upon admission to the hospital, multiple imaging test were done. Images demonstrated a nondisplaced fracture of the fifth metatarsal the right foot, also a avulsion fracture involving the posterior aspect of the right calcaneus. She was Nonweightbearing and nothing by mouth for possible surgical fixation. Patient has seen a few different orthopedic surgeons in town, including having surgical procedures. Our practice has done a previous arthroscopic surgery on her left shoulder. Patient has a very significant medical history with regards to a neurologic Sjogren syndrome, she sees a specialist at [facility] for this problem. Patient admits to some left-sided facial pain, denies any lightheadedness, chest pain, shortness of breath. Review of Systems Constitutional: Reports as per HPI Past Medical History Past Medical History: Cancer, Diabetes Mellitus, Musculoskeletal Disorder, Neurologic Disorder, Osteoarthritis (OA), Pneumonia, Rheumatoid Arthritis (RA), Thyroid Disorder Additional Past Medical History / Comment(s): spinal stenosis, reYnauds,sjogrens ," BALANCE ISSUES,SINUS INFECTIONSHAS HAD DOUBLE VISION ALL HER LIFE" hypothyroidism, acute kidney failure psoriasis UTI STATED TAKING ABX, 03-09-16 FALL/RT FOOT FX AND LT EYE CONTUSION.melanoma skin cancer lt arm, egd/ colonoscopy, History of Any Multi-Drug Resistant Organisms: MRSA Year Discovered:: feb 2014 MDRO Source:: lungs Past Surgical History: Back Surgery, Breast Surgery, Orthopedic Surgery Additional Past Surgical History / Comment(s): cataracts, arthroscopies to lt wrist, gualberto knees, gualberto ankles, gualberto hips, lt hip replacment and redone, lt shoulder sx, rt breast bx,egd/colonoscopy. Past Anesthesia/Blood Transfusion Reactions: No Reported Reaction Past Psychological History: No Psychological Hx Reported Additional Psychological History / Comment(s): She does have a history of prior MRSA infection, with the BURSITIS, DID REQUIRE SURGICAL DRAINAGE AND ANTIBIOTIC THERAPY. Smoking Status: Former smoker Past Alcohol Use History: None Reported Additional Past Alcohol Use History / Comment(s): QUIT SMOKING 1970 Past Drug Use History: None Reported - Past Family History Mother Family Medical History: CVA/TIA Additional Family Medical History / Comment(s): RUPTURED BOWEL Father Family Medical History: Cancer, Pneumonia Additional Family Medical History / Comment(s): ASPIRATIVE PNE Sister(s) Additional Family Medical History / Comment(s): at age 34 with lupus Medications and Allergies Home Medications Medication Instructions Recorded Confirmed Type Adalimumab [Humira] 40 mg SQ WE 02/26/14 03/09/16 History Levothyroxine Sodium [Synthroid] 274 mcg PO MOTUWETHFRSA 02/26/14 03/09/16 History Simvastatin [Simvastatin] 40 mg PO HS 02/26/14 03/09/16 History glyBURIDE/METFORMIN HCL 1 tab PO BID 02/26/14 03/09/16 History [Glucovance 2.5-500 mg Tablet] Bisacodyl [Dulcolax] 5 mg PO QID 02/27/14 03/09/16 History Calcium Carbonate/Vitamin D3 1 tab PO BID 02/27/14 03/09/16 History [Calcium 600 + Vit D Tablet] Carisoprodol [Soma] 350 mg PO ACHS 02/27/14 03/09/16 History Clotrimazole Cream [Lotrimin Cream] 1 applic TOPICAL DAILY PRN 02/27/14 History Ergocalciferol [Vitamin D2 50,000 units PO LONG 02/27/14 03/09/16 History (DRISDOL)] Fexofenadine/Pseudoephedrine 1 tab PO QID 02/27/14 03/09/16 History [Iris-D 24 Hour Tablet] Gabapentin [Neurontin] 1,200 mg PO TID 02/27/14 03/09/16 History Glucosamine Sulfate 1,500 mg PO DAILY 02/27/14 03/09/16 History HYDROcodone/APAP 10-325MG [[place] 1 tab PO TID PRN 02/27/14 03/09/16 History 10-325] Insulin NPH Hum/Reg Insulin Hm See Protocol SQ BID 02/27/14 03/09/16 History [NovoLIN 70-30 100 UNIT/ML VIAL] Lansoprazole [Prevacid] 15 mg PO HS 02/27/14 03/09/16 History Levothyroxine Sodium [Synthroid] 137 mcg PO LONG 02/27/14 03/09/16 History Morphine Sulfate ER [Ms Contin 30 mg PO Q12HR 02/27/14 03/09/16 History 30Mg] Multivitamins, Thera [Multivitamin] 1 tab PO DAILY 02/27/14 03/09/16 History Pilocarpine HCl [Salagen] 7.5 mg PO TID 02/27/14 03/09/16 History predniSONE 4 mg PO QAM 02/27/14 03/09/16 History Aspirin 325 mg PO DAILY 03/09/16 03/09/16 History Gabapentin 1,600 mg PO HS 03/09/16 03/09/16 History Latanoprost [Xalatan 0.005%] 1 drop BOTH EYES HS 03/09/16 03/09/16 History Magnesium 600 mg PO DAILY 03/09/16 03/09/16 History Moexipril HCl [Univasc] 15 mg PO QAM 03/09/16 03/09/16 History Psyllium Husk [Konsyl] 0.52 gm PO DAILY 03/09/16 03/09/16 History hydrOXYzine HCL [Atarax] 50 mg PO HS 03/09/16 03/09/16 History Allergies Allergy/AdvReac Type Severity Reaction Status Date / Time adhesive Allergy Rash/Hives Verified 03/09/16 15:28 cephalexin [From Keflex] Allergy Rash/Hives Verified 03/09/16 15:28 Sulfa (Sulfonamide Allergy Rash/Hives Verified 03/09/16 15:28 Antibiotics) Physical Examination Right lower extremity: No obvious open lesions present throughout the right foot and ankle. There is obvious soft tissue swelling present on the dorsal aspect more in the forefoot and heel. There is also ecchymosis present mainly in the area of the heel. Minimal tenderness palpation of the base of the fifth metatarsal. Tenderness noted with palpation over the posterior heel. She is able to wiggle all the toes without difficulty. She denies any pain with palpation of the medial and lateral malleolus. I was able to visualize active plantar and dorsiflexion. Her sensory exam to light touch was intact throughout the right lower extremity. Her calf is supple , no tenderness with palpation. Dorsal pedis pulses 2+. Results - Labs Labs: Abnormal Lab Results - Last 24 Hours (Table) 03/09/16 03/10/16 03/10/16 Range/Units 20:51 06:56 08:46 MCHC 30.9 L (31.0-37.0) g/dL Carbon Dioxide (22-30) mmol/L Glucose (74-99) mg/dL POC Glucose (mg/dL) 202 H 126 H (75-99) mg/dL Hemoglobin A1c (4.2-6.1) % 03/10/16 03/10/16 03/10/16 Range/Units 08:46 08:46 12:34 MCHC (31.0-37.0) g/dL Carbon Dioxide 32 H (22-30) mmol/L Glucose 134 H (74-99) mg/dL POC Glucose (mg/dL) 154 H (75-99) mg/dL Hemoglobin A1c 6.4 H (4.2-6.1) % H & H 03/10/16 Range/Units 08:46 Hgb 12.1 (11.4-16.0) gm/dL Hct 39.3 (34.0-46.0) % Result Diagrams: 03/10/16 08:46 03/10/16 08:46 - Diagnostic results Ankle/Foot x-ray: report reviewed, image reviewed Ankle/Foot CT: report reviewed, image reviewed Assessment and Plan Plan: Imaging: Multiple images were reviewed of the right foot, including both x-rays and CT. Images demonstrated a nondisplaced fracture involving the base of the fifth metatarsal. Evidence of a avulsion fracture of the posterior calcaneus is present. Chronic arthritic changes noted both throughout the ankle and foot. Assessment: 1. Right foot pain and swelling 2. Nondisplaced right fifth metatarsal base fracture 3. Avulsion fracture posterior calcaneus Plan: 1. I was able to discuss this case with Dr. Mcfarland, including the physical exam findings and x-ray evaluation. Due to the patient's significant medical history she is very high risk for wound complications for surgical fixation. We believe conservative management should be attempted at this time. We recommend nonweightbearing at this time, either utilizing crutches or walker. He prescription was also placed for a Cam Walker boot. Ice and elevation often 2. Pain control via medical recommendations 3. Nonweightbearing, utilize Cam Walker boot 4. GI and DVT prophylaxis per medical 5. Discharge planning: On an orthopedic standpoint patient stable for outpatient follow-up Time with Patient: Less than 30
[2016-03-10 14:43] VITALS: BP 155/67; PULSE 71; RESP 20; TEMP 96.9
[2016-03-13] MEDS ORDERED: LEVOTHYROXINE 137 MCG TAB PO SCH (06:30)
[2016-03-13] MEDS ORDERED: ERGOCALCIFEROL 50,000 UNIT CAP PO SCH (12:00)
== END 2016-03-10 15:56 | disposition home or self-care (01) ==
LOC: EC 14:12 → 4MS4W 17:07
PROVIDERS: ADMIT Family Medicine; ATTEND Family Medicine
DX: S06.0X1A Concussion with loss of consciousness of 30 minutes or less, initial encounter (principal); S92.001A Unspecified fracture of right calcaneus, initial encounter for closed fracture; S92.354A Nondisplaced fracture of fifth metatarsal bone, right foot, initial encounter for closed fracture; W01.10XA Fall on same level from slipping, tripping and stumbling with subsequent striking against unspecified object, initial encounter; Z91.81 History of falling; Y93.01 Activity, walking, marching and hiking; Y92.009 Unspecified place in unspecified non-institutional (private) residence as the place of occurrence of the external cause; S00.12XA Contusion of left eyelid and periocular area, initial encounter; M54.2 Cervicalgia; M17.12 Unilateral primary osteoarthritis, left knee; E03.9 Hypothyroidism, unspecified; E11.40 Type 2 diabetes mellitus with diabetic neuropathy, unspecified; E66.9 Obesity, unspecified; H53.2 Diplopia; M06.9 Rheumatoid arthritis, unspecified; M19.90 Unspecified osteoarthritis, unspecified site; M35.00 Sjogren syndrome, unspecified; S80.212A Abrasion, left knee, initial encounter; S86.019A Strain of unspecified Achilles tendon, initial encounter; Z79.82 Long term (current) use of aspirin; Z85.820 Personal history of malignant melanoma of skin; Z86.14 Personal history of Methicillin resistant Staphylococcus aureus infection; Z87.891 Personal history of nicotine dependence; Z79.899 Other long term (current) drug therapy; Z79.84 Long term (current) use of oral hypoglycemic drugs; Z79.4 Long term (current) use of insulin; Z79.52 Long term (current) use of systemic steroids; Z88.1 Allergy status to other antibiotic agents; Z88.2 Allergy status to sulfonamides
CPT/HCPCS: 36415; 80053 ×2; 83036; 85025 ×2; 85610; 85730; 73562; 73610; 72125; 70486; 70450; 73700; 99285; 29515; G0378 ×2; J7512

== ENCOUNTER 2016-04-12 05:01 | Observation (INO) | payer MEDICARE ==
[2016-04-12] MEDS ORDERED: SODIUM CHLORIDE 0.9% 1,000 ML IV STA (05:09)
[2016-04-12] MEDS ORDERED: SODIUM CHLORIDE 0.9% 500 ML IV STA (05:09)
[2016-04-12] MEDS ORDERED: methylPREDNISolone SOD SUCCI 125 MG/2 ML VIAL IV STA (05:29)
--- NOTE | 2016-04-12 05:29 | ED ---
General Adult HPI - General Source: patient, RN notes reviewed, old records reviewed Mode of arrival: EMS Limitations: no limitations <Keon Nguyen - Last Filed: 04/12/16 05:28> <Keon Steinberg - Last Filed: 04/12/16 08:57> - General Chief complaint: Fever Stated complaint: flu Time Seen by Provider: 04/12/16 05:06 - History of Present Illness Initial comments: This is a 75-year-old female here for evaluation of weakness. Patient states she was going to the bathroom became very weak and went to the ground. She was unable to get up. Patient's of her multiple medical Cortez's recent broken foot, and autoimmune disease. Patient is on daily steroids. She also notes fever yesterday and thinks that she's had generalized body aches and weakness. No headaches no chest pain or shortness of breath no abdominal pain no dysuria or diarrhea, no nausea vomiting. Eating appropriately. (Keon Nguyen) - Related Data Home Medications Medication Instructions Recorded Confirmed Adalimumab [Humira] 40 mg SQ WE 02/26/14 04/12/16 Levothyroxine Sodium [Synthroid] 274 mcg PO DAILY 02/26/14 04/12/16 Simvastatin [Simvastatin] 40 mg PO HS 02/26/14 04/12/16 glyBURIDE/METFORMIN HCL 1 tab PO BID 02/26/14 04/12/16 [Glucovance 2.5-500 mg Tablet] Bisacodyl [Dulcolax] 5 mg PO QID 02/27/14 04/12/16 Calcium Carbonate/Vitamin D3 1 tab PO BID 02/27/14 04/12/16 [Calcium 600 + Vit D Tablet] Carisoprodol [Soma] 350 mg PO QID 02/27/14 04/12/16 Clotrimazole Cream [Lotrimin Cream] 1 applic TOPICAL DAILY PRN 02/27/14 04/12/16 Ergocalciferol [Vitamin D2 50,000 units PO LONG 02/27/14 04/12/16 (DRISDOL)] Fexofenadine/Pseudoephedrine 1 tab PO QID 02/27/14 04/12/16 [Iris-D 24 Hour Tablet] Gabapentin [Neurontin] 1,200 mg PO TID 02/27/14 04/12/16 Glucosamine Sulfate 1,500 mg PO DAILY 02/27/14 04/12/16 HYDROcodone/APAP 10-325MG [[place] 1 tab PO TID PRN 02/27/14 04/12/16 10-325] Insulin NPH Hum/Reg Insulin Hm 20 unit SQ BID 02/27/14 04/12/16 [NovoLIN 70-30 100 UNIT/ML VIAL] Lansoprazole [Prevacid] 15 mg PO HS 02/27/14 04/12/16 Morphine Sulfate ER [Ms Contin 30 mg PO Q12HR 02/27/14 04/12/16 30Mg] Multivitamins, Thera [Multivitamin] 1 tab PO DAILY 02/27/14 04/12/16 Pilocarpine HCl [Salagen] 7.5 mg PO TID 02/27/14 04/12/16 predniSONE 4 mg PO QAM 02/27/14 04/12/16 Aspirin 325 mg PO DAILY 03/09/16 04/12/16 Gabapentin 1,600 mg PO HS 03/09/16 04/12/16 Moexipril HCl [Univasc] 15 mg PO QAM 03/09/16 04/12/16 Psyllium Husk [Konsyl] 0.52 gm PO DAILY 03/09/16 04/12/16 Magnesium Oxide 600 mg PO DAILY 04/12/16 04/12/16 Travoprost [Travatan Z 0.004%] 1 drop BOTH EYES HS 04/12/16 04/12/16 hydrOXYzine HCL [Atarax] 50 mg PO HS PRN 04/12/16 04/12/16 Allergies Allergy/AdvReac Type Severity Reaction Status Date / Time adhesive Allergy Rash/Hives Verified 04/12/16 07:58 cephalexin [From Keflex] Allergy Rash/Hives Verified 04/12/16 07:58 Sulfa (Sulfonamide Allergy Rash/Hives Verified 04/12/16 07:58 Antibiotics) Review of Systems ROS Other: All systems not noted in ROS Statement are negative. <Keon Nguyen - Last Filed: 04/12/16 05:28> ROS Other: All systems not noted in ROS Statement are negative. <Keon Steinberg - Last Filed: 04/12/16 08:57> ROS Statement: Those systems with pertinent positive or pertinent negative responses have been documented in the HPI. Past Medical History Past Medical History: Cancer, Diabetes Mellitus, Musculoskeletal Disorder, Neurologic Disorder, Osteoarthritis (OA), Pneumonia, Rheumatoid Arthritis (RA), Thyroid Disorder Additional Past Medical History / Comment(s): spinal stenosis, reYnauds,sjogrens ," BALANCE ISSUES,SINUS INFECTIONSHAS HAD DOUBLE VISION ALL HER LIFE" hypothyroidism, acute kidney failure psoriasis UTI STATED TAKING ABX, 03-09-16 FALL/RT FOOT FX AND LT EYE CONTUSION.melanoma skin cancer lt arm, egd/ colonoscopy, History of Any Multi-Drug Resistant Organisms: MRSA Date of last positivie culture/infection: 02/27/14 MDRO Source:: Sputum Past Surgical History: Back Surgery, Breast Surgery, Orthopedic Surgery Additional Past Surgical History / Comment(s): cataracts, arthroscopies to lt wrist, gualberto knees, gualberto ankles, gualberto hips, lt hip replacment and redone, lt shoulder sx, rt breast bx,egd/colonoscopy. Past Anesthesia/Blood Transfusion Reactions: No Reported Reaction Past Psychological History: No Psychological Hx Reported Additional Psychological History / Comment(s): She does have a history of prior MRSA infection, with the BURSITIS, DID REQUIRE SURGICAL DRAINAGE AND ANTIBIOTIC THERAPY. Smoking Status: Former smoker Past Alcohol Use History: None Reported Additional Past Alcohol Use History / Comment(s): QUIT SMOKING 1970 Past Drug Use History: None Reported - Past Family History Mother Family Medical History: CVA/TIA Additional Family Medical History / Comment(s): RUPTURED BOWEL Father Family Medical History: Cancer, Pneumonia Additional Family Medical History / Comment(s): ASPIRATIVE PNE Sister(s) Additional Family Medical History / Comment(s): at age 34 with lupus <Keon Nguyen - Last Filed: 04/12/16 05:28> General Exam Limitations: no limitations General appearance: alert, in no apparent distress Head exam: Present: atraumatic, normocephalic, normal inspection Eye exam: Present: normal appearance, PERRL, EOMI. Absent: scleral icterus, conjunctival injection, periorbital swelling ENT exam: Present: normal exam, mucous membranes moist Neck exam: Present: normal inspection. Absent: tenderness, meningismus, lymphadenopathy Respiratory exam: Present: normal lung sounds bilaterally. Absent: respiratory distress, wheezes, rales, rhonchi, stridor Cardiovascular Exam: Present: regular rate, normal rhythm, normal heart sounds. Absent: systolic murmur, diastolic murmur, rubs, gallop, clicks GI/Abdominal exam: Present: soft, normal bowel sounds. Absent: distended, tenderness, guarding, rebound, rigid Extremities exam: Present: normal inspection, full ROM, normal capillary refill. Absent: tenderness, pedal edema, joint swelling, calf tenderness Back exam: Present: normal inspection Neurological exam: Present: alert, oriented X3, CN II-XII intact Psychiatric exam: Present: normal affect, normal mood Skin exam: Present: warm, dry, intact, normal color. Absent: rash <Keon Nguyen - Last Filed: 04/12/16 05:28> EKG Findings - EKG Comments: EKG Findings:: EKG shows normal sinus rhythm rate 98, IA 206, QRS 92, QTC 472 <Keon Nguyen - Last Filed: 04/12/16 05:28> Medical Decision Making <Keon Nguyen - Last Filed: 04/12/16 05:28> - Lab Data Result diagrams: 04/12/16 05:30 04/12/16 05:30 <Keon Steinberg - Last Filed: 04/12/16 08:57> - Medical Decision Making I spoke with Dr. Hart and he agreed that the patient should stay overnight we' ll hydrate her up and he'll reevaluate her again in the morning (Keon Steinberg ) - Lab Data Lab Results 04/12/16 04/12/16 04/12/16 Range/Units 05:30 05:30 05:30 WBC 11.3 H (3.8-10.6) k/uL RBC 4.86 (3.80-5.40) m/uL Hgb 14.2 (11.4-16.0) gm/dL Hct 44.5 (34.0-46.0) % MCV 91.5 (80.0-100.0) fL MCH 29.2 (25.0-35.0) pg MCHC 31.9 (31.0-37.0) g/dL RDW 14.5 (11.5-15.5) % Plt Count 165 (150-450) k/uL Neutrophils % 73 % Lymphocytes % 19 % Monocytes % 5 % Eosinophils % 1 % Basophils % 1 % Neutrophils # 8.2 H (1.3-7.7) k/uL Lymphocytes # 2.2 (1.0-4.8) k/uL Monocytes # 0.6 (0-1.0) k/uL Eosinophils # 0.1 (0-0.7) k/uL Basophils # 0.1 (0-0.2) k/uL PT (9.0-12.0) sec INR (<1.1) APTT (22.0-30.0) sec Sodium 137 (137-145) mmol/L Potassium 5.2 H (3.5-5.1) mmol/L Chloride 97 L (98-107) mmol/L Carbon Dioxide 26 (22-30) mmol/L Anion Gap 14 mmol/L BUN 12 (7-17) mg/dL Creatinine 0.69 (0.52-1.04) mg/dL Est GFR (MDRD) Af Amer >60 (>60 ml/min/1.73 sqM) Est GFR (MDRD) Non-Af >60 (>60 ml/min/1.73 sqM) Glucose 189 H (74-99) mg/dL Plasma Lactic Acid Cj (0.7-2.0) mmol/L Calcium 9.7 (8.4-10.2) mg/dL Phosphorus 4.3 (2.5-4.5) mg/dL Magnesium 1.7 (1.6-2.3) mg/dL Total Bilirubin 1.0 (0.2-1.3) mg/dL AST 35 (14-36) U/L ALT 32 (9-52) U/L Alkaline Phosphatase 76 (38-126) U/L Total Creatine Kinase 42 (30-135) U/L CK-MB (CK-2) 0.4 (0.0-2.4) ng/mL CK-MB (CK-2) Rel Index 1.0 Troponin I 0.018 (0.000-0.034) ng/mL Total Protein 8.2 (6.3-8.2) g/dL Albumin 4.3 (3.5-5.0) g/dL Urine Color Urine Appearance (Clear) Urine pH (5.0-8.0) Ur Specific [place] (1.001-1.035) Urine Protein (Negative) Urine Glucose (UA) (Negative) Urine Ketones (Negative) Urine Blood (Negative) Urine Nitrate (Negative) Urine Bilirubin (Negative) Urine Urobilinogen (<2.0) mg/dL Ur Leukocyte Esterase (Negative) Urine RBC (0-5) /hpf Urine WBC (0-5) /hpf Ur Squamous Epith Cells (0-4) /hpf Hyaline Casts (0-2) /lpf Urine Mucus (None) /hpf Influenza Type A RNA (Not Detectd) Influenza Type B (PCR) (Not Detectd) 04/12/16 04/12/16 04/12/16 Range/Units 05:30 05:30 07:00 WBC (3.8-10.6) k/uL RBC (3.80-5.40) m/uL Hgb (11.4-16.0) gm/dL Hct (34.0-46.0) % MCV (80.0-100.0) fL MCH (25.0-35.0) pg MCHC (31.0-37.0) g/dL RDW (11.5-15.5) % Plt Count (150-450) k/uL Neutrophils % % Lymphocytes % % Monocytes % % Eosinophils % % Basophils % % Neutrophils # (1.3-7.7) k/uL Lymphocytes # (1.0-4.8) k/uL Monocytes # (0-1.0) k/uL Eosinophils # (0-0.7) k/uL Basophils # (0-0.2) k/uL PT 11.4 (9.0-12.0) sec INR 1.1 (<1.1) APTT 22.4 (22.0-30.0) sec Sodium (137-145) mmol/L Potassium (3.5-5.1) mmol/L Chloride (98-107) mmol/L Carbon Dioxide (22-30) mmol/L Anion Gap mmol/L BUN (7-17) mg/dL Creatinine (0.52-1.04) mg/dL Est GFR (MDRD) Af Amer (>60 ml/min/1.73 sqM) Est GFR (MDRD) Non-Af (>60 ml/min/1.73 sqM) Glucose (74-99) mg/dL Plasma Lactic Acid Cj 1.6 (0.7-2.0) mmol/L Calcium (8.4-10.2) mg/dL Phosphorus (2.5-4.5) mg/dL Magnesium (1.6-2.3) mg/dL Total Bilirubin (0.2-1.3) mg/dL AST (14-36) U/L ALT (9-52) U/L Alkaline Phosphatase (38-126) U/L Total Creatine Kinase (30-135) U/L CK-MB (CK-2) (0.0-2.4) ng/mL CK-MB (CK-2) Rel Index Troponin I (0.000-0.034) ng/mL Total Protein (6.3-8.2) g/dL Albumin (3.5-5.0) g/dL Urine Color Urine Appearance (Clear) Urine pH (5.0-8.0) Ur Specific [place] (1.001-1.035) Urine Protein (Negative) Urine Glucose (UA) (Negative) Urine Ketones (Negative) Urine Blood (Negative) Urine Nitrate (Negative) Urine Bilirubin (Negative) Urine Urobilinogen (<2.0) mg/dL Ur Leukocyte Esterase (Negative) Urine RBC (0-5) /hpf Urine WBC (0-5) /hpf Ur Squamous Epith Cells (0-4) /hpf Hyaline Casts (0-2) /lpf Urine Mucus (None) /hpf Influenza Type A RNA Not Detected (Not Detectd) Influenza Type B (PCR) Not Detected (Not Detectd) 04/12/16 Range/Units 08:17 WBC (3.8-10.6) k/uL RBC (3.80-5.40) m/uL Hgb (11.4-16.0) gm/dL Hct (34.0-46.0) % MCV (80.0-100.0) fL MCH (25.0-35.0) pg MCHC (31.0-37.0) g/dL RDW (11.5-15.5) % Plt Count (150-450) k/uL Neutrophils % % Lymphocytes % % Monocytes % % Eosinophils % % Basophils % % Neutrophils # (1.3-7.7) k/uL Lymphocytes # (1.0-4.8) k/uL Monocytes # (0-1.0) k/uL Eosinophils # (0-0.7) k/uL Basophils # (0-0.2) k/uL PT (9.0-12.0) sec INR (<1.1) APTT (22.0-30.0) sec Sodium (137-145) mmol/L Potassium (3.5-5.1) mmol/L Chloride (98-107) mmol/L Carbon Dioxide (22-30) mmol/L Anion Gap mmol/L BUN (7-17) mg/dL Creatinine (0.52-1.04) mg/dL Est GFR (MDRD) Af Amer (>60 ml/min/1.73 sqM) Est GFR (MDRD) Non-Af (>60 ml/min/1.73 sqM) Glucose (74-99) mg/dL Plasma Lactic Acid Cj (0.7-2.0) mmol/L Calcium (8.4-10.2) mg/dL Phosphorus (2.5-4.5) mg/dL Magnesium (1.6-2.3) mg/dL Total Bilirubin (0.2-1.3) mg/dL AST (14-36) U/L ALT (9-52) U/L Alkaline Phosphatase (38-126) U/L Total Creatine Kinase (30-135) U/L CK-MB (CK-2) (0.0-2.4) ng/mL CK-MB (CK-2) Rel Index Troponin I (0.000-0.034) ng/mL Total Protein (6.3-8.2) g/dL Albumin (3.5-5.0) g/dL Urine Color Yellow Urine Appearance Clear (Clear) Urine pH 6.0 (5.0-8.0) Ur Specific [place] 1.022 (1.001-1.035) Urine Protein 1+ H (Negative) Urine Glucose (UA) Negative (Negative) Urine Ketones Negative (Negative) Urine Blood Trace H (Negative) Urine Nitrate Negative (Negative) Urine Bilirubin Negative (Negative) Urine Urobilinogen <2.0 (<2.0) mg/dL Ur Leukocyte Esterase Negative (Negative) Urine RBC 3 (0-5) /hpf Urine WBC 5 (0-5) /hpf Ur Squamous Epith Cells <1 (0-4) /hpf Hyaline Casts 3 H (0-2) /lpf Urine Mucus Occasional H (None) /hpf Influenza Type A RNA (Not Detectd) Influenza Type B (PCR) (Not Detectd) Disposition <Keon Nguyen - Last Filed: 04/12/16 05:28> Time of Disposition: 08:54 <Keon Steinberg - Last Filed: 04/12/16 08:57> Clinical Impression: Generalized weakness, Increased weakness when ambulating Disposition: ADMITTED IP TO THIS HOSP
--- NOTE | 2016-04-12 06:00 | XR ---
EXAMINATION TYPE: XR chest 2V DATE OF EXAM: 04/12/2016 5:44 AM COMPARISON: 03/03/2014 HISTORY: Weakness, no history of heart and lung disease. Patient complains of fever and bodyaches flulike symptoms with nausea TECHNIQUE: Frontal and lateral views of the chest are obtained. FINDINGS: There is evidence of mild pulmonary vascular congestion. There is no focal air space opacity, pleural effusion, or pneumothorax seen. Heart is borderline enla rged in size.. Atherosclerotic calcification is noted in the aortic arch. Mild degenerative changes are present in the thoracic spine. IMPRESSION: 1. Mild pulmonary vascular congestion. 2. No focal pneumonia. 3. No significant interval change.
[2016-04-12 06:09] LABS: Basophils # (A) 0.1 k/uL (0-0.2); Basophils % (A) 1 %; CH 29.5; CHCM 32.4; Eosinophils # (A) 0.1 k/uL (0-0.7); Eosinophils % (A) 1 %; HCT 44.5 % (34.0-46.0); HDW 2.59; HGB 14.2 gm/dL (11.4-16.0); Luc # (Auto) 0.13; Luc % (Auto) 1; Lymphocytes # (A) 2.2 k/uL (1.0-4.8); Lymphocytes % (A) 19 %; MCH 29.2 pg (25.0-35.0); MCHC 31.9 g/dL (31.0-37.0); MCV 91.5 fL (80.0-100.0); Mean Platelet Volume 8.6; Monocytes # (A) 0.6 k/uL (0-1.0); Monocytes % (A) 5 %; Neutrophils # (A) 8.2 k/uL (1.3-7.7); Neutrophils % (A) 73 %; RBC 4.86 m/uL (3.80-5.40); RDW 14.5 % (11.5-15.5); WBC 11.3 k/uL (3.8-10.6); WBC (Perox) 11.25
[2016-04-12 06:18] LABS: INR 1.1 (<1.1); Partial Thromboplastin Time 22.4 sec (22.0-30.0); Prothrombin Time 11.4 sec (9.0-12.0)
[2016-04-12 06:21] LABS: ALT 32 U/L (9-52); AST 35 U/L (14-36); Alkaline Phosphatase 76 U/L (38-126); Anion Gap 14 mmol/L; Blood Urea Nitrogen 12 mg/dL (7-17); Calcium 9.7 mg/dL (8.4-10.2); Carbon Dioxide 26 mmol/L (22-30); Chloride 97 mmol/L (98-107); Glucose 189 mg/dL (74-99); Magnesium 1.7 mg/dL (1.6-2.3); Non-African American GFR(MDRD) >60 (>60 ml/min/1.73 sqM); Phosphorous 4.3 mg/dL (2.5-4.5); Potassium 5.2 mmol/L (3.5-5.1); Sodium 137 mmol/L (137-145); Total Protein 8.2 g/dL (6.3-8.2)
[2016-04-12] MEDS ORDERED: KETOROLAC 30 MG/ML 1 ML VIAL IVP STA (06:39)
[2016-04-12 06:47] LABS: Creatine Kinase MB 0.4 ng/mL (0.0-2.4); Troponin I 0.018 ng/mL (0.000-0.034)
[2016-04-12] MEDS ORDERED: ACETAMINOPHEN TAB 500 MG TAB PO STA (08:21)
[2016-04-12 08:29] LABS: Appearance,Urine Clear (Clear); Bilirubin,Urine Negative (Negative); Glucose,Urine (UA) Negative (Negative); Ketones,Urine Negative (Negative); Leukocyte Esterase,Urine Negative (Negative); Mucus,Urine Occasional /hpf; Nitrite,Urine Negative (Negative); Particle Count 6715; Protein,Urine 1+ (Negative); RBC,Urine 3 /hpf (0-5); Specific Gravity,Urine 1.022 (1.001-1.035); Squamous Epithelial Cell,Urine <1 /hpf (0-4); UA Billing (MACRO vs. MICRO) MICRO; Urobilinogen,Urine <2.0 mg/dL (<2.0); WBC,Urine 5 /hpf (0-5)
[2016-04-12] MEDS ORDERED: SODIUM CHLORIDE 0.9% 1,000 ML IV ONE (08:59)
[2016-04-12 12:02] LABS: Glucose,Whole Blood 235 mg/dL (75-99)
[2016-04-12 13:02] LABS: Hemoglobin A1C 6.2 % (4.2-6.1)
[2016-04-12] MEDS: INSULIN LISPRO (humaLOG) 300 UNIT/3 ML VIAL SQ SCH ×4 (13:20→21:59)
[2016-04-12] MEDS ORDERED: HYDROcodone/APAP 10-325MG 1 EACH TAB PO PRN (13:28)
[2016-04-12] MEDS ORDERED: hydrOXYzine HCL 25 MG TAB PO PRN (13:28)
[2016-04-12] MEDS ORDERED: CLOTRIMAZOLE 1% CREAM 15 GM TUBE TOPICAL PRN (13:28)
[2016-04-12] MEDS: MORPHINE SULFATE ER 30 MG TABLET PO SCH ×2 (15:54→23:37)
[2016-04-12] MEDS: CARISOPRODOL 350 MG TAB PO SCH ×2 (15:56→21:45)
[2016-04-12] MEDS: PILOCARPINE 5 MG TAB PO SCH ×2 (16:55→21:41)
[2016-04-12] MEDS: GABAPENTIN 800 MG PO SCH (16:58)
[2016-04-12] MEDS ORDERED: MAGNESIUM SULFATE-D5W PMX 1 GM in DEXTROSE/WATER 1 100ML.BAG IVPB ONE (17:00)
[2016-04-12] MEDS: BISACODYL 5 MG TABLET.DR PO SCH ×2 (17:01→21:45)
[2016-04-12] MEDS: PSEUDOEPHEDRINE 30 MG TAB PO SCH ×2 (17:02→21:41)
[2016-04-12 17:24] LABS: Glucose,Whole Blood 299 mg/dL (75-99)
[2016-04-12] MEDS ORDERED: CARISOPRODOL 350 MG TAB PO SCH (18:00)
[2016-04-12] MEDS ORDERED: ACETAMINOPHEN TAB 325 MG TAB PO PRN (19:01)
[2016-04-12] MEDS ORDERED: MORPHINE SULFATE ER 30 MG TABLET PO SCH (21:00)
[2016-04-12] MEDS ORDERED: LATANOPROST 0.005% OPHTH DROPS 2.5 ML BTL BOTH EYES SCH (21:00)
[2016-04-12] MEDS ORDERED: PANTOPRAZOLE 40 MG TABLET PO SCH (21:00)
[2016-04-12] MEDS ORDERED: GABAPENTIN 800 MG PO SCH (21:00)
[2016-04-12] MEDS ORDERED: ATORVASTATIN 20 MG TAB PO SCH (21:00)
[2016-04-12 21:08] LABS: Glucose,Whole Blood 261 mg/dL (75-99)
[2016-04-12] MEDS: glipiZIDE 5 MG TAB PO SCH (21:41)
[2016-04-12] MEDS: CALCIUM CARB-VIT D 500MG-200UN 1 EACH TAB PO SCH (21:41)
[2016-04-12] MEDS: metFORMIN 500 MG TAB PO SCH (21:41)
[2016-04-12] MEDS: INSULIN NPH/REG INSULIN 70/30 300 UNIT/3 ML VIAL SQ SCH ×2 (21:43→21:49)
--- NOTE | 2016-04-12 23:45 | P.HPIM ---
History of Present Illness H&P Date: 04/12/16 Chief Complaint: Weakness with fever The patient comes in the hospital essentially for recent fall in bathroom. Significant weakness overcame the patient. She has multiple issues including recent foot fracture. Significant DJD with osteoarthritis and rheumatoid arthritis. She is on chronic steroid therapy at this time. She has an underlying history of spinal stenosis and Sjogren syndrome and visual distortion. She was recently discharged from the hospital after having a foot fracture. Workup so far has not shown significant problem but she is diaphoretic with fever. Question adrenal insufficiency element. Review of Systems Constitutional: Reports fatigue, Reports fever, Reports sweats Eyes: denies blurred vision, denies pain Ears, nose, mouth and throat: Denies headache, Denies sore throat Cardiovascular: Denies chest pain, Denies shortness of breath Respiratory: Denies cough Gastrointestinal: Reports as per HPI Genitourinary: Denies dysuria, Denies hematuria Musculoskeletal: Reports frequent falls, Reports gait dysfunction, Reports myalgias Integumentary: Denies pruritus, Denies rash Past Medical History Past Medical History: Cancer, Diabetes Mellitus, Hyperlipidemia, Hypertension, Musculoskeletal Disorder, Neurologic Disorder, Osteoarthritis (OA), Renal Disease, Skin Disorder, Thyroid Disorder Additional Past Medical History / Comment(s): IDDM type II, spinal stenosis, Reynauds, neurologic sjogrens BALANCE ISSUES, SINUS INFECTIONS, HAS HAD DOUBLE VISION ALL HER LIFE-when looks certain directions, hypothyroidism, acute kidney failure psoriasis, UTI s, 03-09-16 FALL/RT FOOT FX AND LT EYE CONTUSION, melanoma skin cancer lt arm, bilateral elbow bursitis with MRSA and I&Ds/ antibiotics. History of Any Multi-Drug Resistant Organisms: MRSA Date of last positivie culture/infection: 02/27/14 MDRO Source:: Sputum Past Surgical History: Back Surgery, Breast Surgery, Joint Replacement, Orthopedic Surgery Additional Past Surgical History / Comment(s): Bilateral cataracts with lens implants, arthroscopies to lt wrist, gualberto knees, gualberto ankles, gualberto hips, lt hip replacment and redone, L/R shoulder sxs, rt breast bx-benign, egd/colonoscopy, skin cancer removal L arm. Past Anesthesia/Blood Transfusion Reactions: No Reported Reaction Past Psychological History: No Psychological Hx Reported Additional Psychological History / Comment(s): Pt resides with her spouse. She is currently wearing a R leg immobilizer. She is also using crutches to ambulate. She is not driving at this time, but was prior to her R foot fracture. No home care. Smoking Status: Former smoker Past Alcohol Use History: None Reported Additional Past Alcohol Use History / Comment(s): Pt started smoking in college and QUIT SMOKING in 1969 Past Drug Use History: None Reported - Past Family History Mother Family Medical History: CVA/TIA Additional Family Medical History / Comment(s): RUPTURED BOWEL Father Family Medical History: Cancer, Pneumonia Additional Family Medical History / Comment(s): ASPIRATIVE PNE Sister(s) Additional Family Medical History / Comment(s): at age 34 with lupus Medications and Allergies Home Medications Medication Instructions Recorded Confirmed Type Adalimumab [Humira] 40 mg SQ WE 02/26/14 04/12/16 History Levothyroxine Sodium [Synthroid] 274 mcg PO DAILY 02/26/14 04/12/16 History Simvastatin [Simvastatin] 40 mg PO HS 02/26/14 04/12/16 History glyBURIDE/METFORMIN HCL 1 tab PO BID 02/26/14 04/12/16 History [Glucovance 2.5-500 mg Tablet] Bisacodyl [Dulcolax] 5 mg PO QID 02/27/14 04/12/16 History Calcium Carbonate/Vitamin D3 1 tab PO BID 02/27/14 04/12/16 History [Calcium 600 + Vit D Tablet] Carisoprodol [Soma] 350 mg PO QID 02/27/14 04/12/16 History Clotrimazole Cream [Lotrimin Cream] 1 applic TOPICAL DAILY PRN 02/27/14 History Ergocalciferol [Vitamin D2 50,000 units PO LONG 02/27/14 04/12/16 History (DRISDOL)] Fexofenadine/Pseudoephedrine 1 tab PO QID 02/27/14 04/12/16 History [Iris-D 24 Hour Tablet] Gabapentin [Neurontin] 1,200 mg PO TID 02/27/14 04/12/16 History Glucosamine Sulfate 1,500 mg PO DAILY 02/27/14 04/12/16 History HYDROcodone/APAP 10-325MG [[place] 1 tab PO TID PRN 02/27/14 04/12/16 History 10-325] Insulin NPH Hum/Reg Insulin Hm 20 unit SQ BID 02/27/14 04/12/16 History [NovoLIN 70-30 100 UNIT/ML VIAL] Lansoprazole [Prevacid] 15 mg PO HS 02/27/14 04/12/16 History Morphine Sulfate ER [Ms Contin 30 mg PO Q12HR 02/27/14 04/12/16 History 30Mg] Multivitamins, Thera [Multivitamin] 1 tab PO DAILY 02/27/14 04/12/16 History Pilocarpine HCl [Salagen] 7.5 mg PO TID 02/27/14 04/12/16 History predniSONE 4 mg PO QAM 02/27/14 04/12/16 History Aspirin 325 mg PO DAILY 03/09/16 04/12/16 History Gabapentin 1,600 mg PO HS 03/09/16 04/12/16 History Moexipril HCl [Univasc] 15 mg PO QAM 03/09/16 04/12/16 History Psyllium Husk [Konsyl] 0.52 gm PO DAILY 03/09/16 04/12/16 History Magnesium Oxide 600 mg PO DAILY 04/12/16 04/12/16 History Travoprost [Travatan Z 0.004%] 1 drop BOTH EYES HS 04/12/16 04/12/16 History hydrOXYzine HCL [Atarax] 50 mg PO HS PRN 04/12/16 04/12/16 History Allergies Allergy/AdvReac Type Severity Reaction Status Date / Time adhesive Allergy Rash/Hives Verified 04/12/16 07:58 cephalexin [From Keflex] Allergy Rash/Hives Verified 04/12/16 07:58 Sulfa (Sulfonamide Allergy Rash/Hives Verified 04/12/16 07:58 Antibiotics) Physical Exam Vitals: Vital Signs Temp Pulse Pulse Resp BP BP Pulse Ox 04/12/16 15:30 99.1 F 95 20 133/59 92 L 04/12/16 13:00 99.6 F 84 19 143/65 96 04/12/16 09:20 97.5 F L 89 16 139/64 93 L Intake and Output 04/12/16 04/12/16 04/13/16 14:59 22:59 06:59 Other: # Voids 2 - Constitutional General appearance: obese - EENT Eyes: EOMI - Neck Neck: no lymphadenopathy - Respiratory Respiratory: bilateral: diminished - Cardiovascular Rhythm: regular Heart sounds: normal: S1, S2 - Gastrointestinal General gastrointestinal: no organomegaly, soft, no tenderness - Integumentary Integumentary: rash - Neurologic Neurologic: CNII-XII intact - Musculoskeletal Musculoskeletal: gait normal - Psychiatric Psychiatric: A&O x's 3 Results CBC & Chem 7: 04/12/16 05:30 04/12/16 05:30 Labs: Abnormal Lab Results - Last 24 Hours (Table) 04/12/16 04/12/16 04/12/16 Range/Units 12:00 17:22 20:59 POC Glucose (mg/dL) 235 H 299 H 261 H (75-99) mg/dL Thrombosis Risk Factor Assmnt - Choose All That Apply Any of the Below Risk Factors Present?: Yes Each Factor Represents 1 point: Obesity (BMI >25) Other Risk Factors: Yes Each Risk Factor Represents 2 Points: Age 61-74 years, Malignancy Other congenital or acquired thrombophilia - If yes, enter type in comment: No Thrombosis Risk Factor Assessment Total Risk Factor Score: 5 Thrombosis Risk Factor Assessment Level: High Risk Assessment and Plan (1) Generalized weakness Status: Acute (2) Avulsion fracture of calcaneus Status: Acute (3) Diabetes Status: Acute Plan: I suspect IV hydration will help this patient significantly. Workup has been negative so far for influenza type some type of infectious etiology as far as viral element. Check CBC a CMP in a.m. Increase ambulation as close to baseline. If no better, consider infectious disease consult. Time with Patient: Less than 30
[2016-04-13 02:21] VITALS: RESP 18; TEMP 97
[2016-04-13 03:48] LABS: Glucose,Whole Blood 118 mg/dL (75-99)
[2016-04-13] MEDS ORDERED: LEVOTHYROXINE 137 MCG TAB PO SCH (06:30)
[2016-04-13 07:38] LABS: Glucose,Whole Blood 116 mg/dL (75-99)
[2016-04-13] MEDS: INSULIN LISPRO (humaLOG) 300 UNIT/3 ML VIAL SQ SCH (07:39)
[2016-04-13] MEDS: GABAPENTIN 800 MG PO SCH (08:31)
[2016-04-13] MEDS: BISACODYL 5 MG TABLET.DR PO SCH (08:32)
[2016-04-13] MEDS: glipiZIDE 5 MG TAB PO SCH (08:32)
[2016-04-13] MEDS: metFORMIN 500 MG TAB PO SCH (08:34)
[2016-04-13] MEDS: CALCIUM CARB-VIT D 500MG-200UN 1 EACH TAB PO SCH (08:34)
[2016-04-13] MEDS: PILOCARPINE 5 MG TAB PO SCH (08:34)
[2016-04-13] MEDS: INSULIN NPH/REG INSULIN 70/30 300 UNIT/3 ML VIAL SQ SCH (08:36)
[2016-04-13] MEDS: CARISOPRODOL 350 MG TAB PO SCH (08:36)
[2016-04-13] MEDS: PSEUDOEPHEDRINE 30 MG TAB PO SCH (08:36)
[2016-04-13 08:40] LABS: CH 29.1; CHCM 31.6; HCT 37.8 % (34.0-46.0); HDW 2.56; HGB 11.8 gm/dL (11.4-16.0); MCHC 31.3 g/dL (31.0-37.0); MCV 92.6 fL (80.0-100.0); Mean Platelet Volume 7.7; RBC 4.09 m/uL (3.80-5.40); RDW 14.4 % (11.5-15.5); WBC 10.6 k/uL (3.8-10.6)
[2016-04-13 08:54] LABS: ALT 27 U/L (9-52); AST 15 U/L (14-36); Alkaline Phosphatase 64 U/L (38-126); Anion Gap 10 mmol/L; Blood Urea Nitrogen 12 mg/dL (7-17); Calcium 9.3 mg/dL (8.4-10.2); Carbon Dioxide 30 mmol/L (22-30); Chloride 102 mmol/L (98-107); Glucose 129 mg/dL (74-99); Non-African American GFR(MDRD) >60 (>60 ml/min/1.73 sqM); Potassium 4.4 mmol/L (3.5-5.1); Sodium 142 mmol/L (137-145); Total Bilirubin 0.5 mg/dL (0.2-1.3); Total Protein 6.7 g/dL (6.3-8.2)
--- NOTE | 2016-04-13 08:58 | P.DS ---
Providers Date of admission: 04/12/16 09:01 Attending physician: Nicholas Hart Primary care physician: Nicholas Hart - Discharge Diagnosis(es) (1) Generalized weakness Current Visit: Yes Status: Acute (2) Avulsion fracture of calcaneus Current Visit: No Status: Acute (3) Diabetes Current Visit: No Status: Acute Hospital Course: This is a discharge summary on a 75 white female essentially admitted for weakness and fall. Question element of dehydration. Workup was negative in the emergency room. She is now resolved as far as her strength. She's emulating without difficulty with no voiding difficulties. She states probable dehydration with viral element. We will discharged in stable condition to follow-up with me in about one week. Patient Condition at Discharge: Stable Plan - Discharge Summary Discharge Medication List Adalimumab [Humira] 40 mg SQ WE 02/26/14 [History] Levothyroxine Sodium [Synthroid] 274 mcg PO DAILY 02/26/14 [History] Simvastatin [Simvastatin] 40 mg PO HS 02/26/14 [History] glyBURIDE/METFORMIN HCL [Glucovance 2.5-500 mg Tablet] 1 tab PO BID 02/26/14 [ History] Bisacodyl [Dulcolax] 5 mg PO QID 02/27/14 [History] Calcium Carbonate/Vitamin D3 [Calcium 600 + Vit D Tablet] 1 tab PO BID 02/27/14 [History] Carisoprodol [Soma] 350 mg PO QID 02/27/14 [History] Clotrimazole Cream [Lotrimin Cream] 1 applic TOPICAL DAILY PRN 02/27/14 [History ] Ergocalciferol [Vitamin D2 (DRISDOL)] 50,000 units PO LONG 02/27/14 [History] Fexofenadine/Pseudoephedrine [Iris-D 24 Hour Tablet] 1 tab PO QID 02/27/14 [ History] Gabapentin [Neurontin] 1,200 mg PO TID 02/27/14 [History] Glucosamine Sulfate 1,500 mg PO DAILY 02/27/14 [History] HYDROcodone/APAP 10-325MG [[place] 10-325] 1 tab PO TID PRN 02/27/14 [History] Insulin NPH Hum/Reg Insulin Hm [NovoLIN 70-30 100 UNIT/ML VIAL] 20 unit SQ BID 02/27/14 [History] Lansoprazole [Prevacid] 15 mg PO HS 02/27/14 [History] Morphine Sulfate ER [Ms Contin 30Mg] 30 mg PO Q12HR 02/27/14 [History] Multivitamins, Thera [Multivitamin] 1 tab PO DAILY 02/27/14 [History] Pilocarpine HCl [Salagen] 7.5 mg PO TID 02/27/14 [History] predniSONE 4 mg PO QAM 02/27/14 [History] Aspirin 325 mg PO DAILY 03/09/16 [History] Gabapentin 1,600 mg PO HS 03/09/16 [History] Moexipril HCl [Univasc] 15 mg PO QAM 03/09/16 [History] Psyllium Husk [Konsyl] 0.52 gm PO DAILY 03/09/16 [History] Magnesium Oxide 600 mg PO DAILY 04/12/16 [History] Travoprost [Travatan Z 0.004%] 1 drop BOTH EYES HS 04/12/16 [History] hydrOXYzine HCL [Atarax] 50 mg PO HS PRN 04/12/16 [History] Follow up Appointment(s)/Referral(s): Nicholas Hart MD [Primary Care Provider] - 1 Week
[2016-04-13] MEDS ORDERED: MAGNESIUM OXIDE 400 MG TAB PO SCH (09:00)
[2016-04-13] MEDS ORDERED: LORATADINE 10 MG TAB PO SCH (09:00)
[2016-04-13] MEDS ORDERED: predniSONE 1 MG TAB PO SCH (09:00)
[2016-04-13] MEDS ORDERED: PSYLLIUM HUSK 100% 6 GM PACKET PO SCH (09:00)
[2016-04-13] MEDS ORDERED: GLUCOSAMINE SULFATE 1500 MG PO SCH (09:00)
[2016-04-13] MEDS ORDERED: ASPIRIN 325 MG TAB PO SCH (09:00)
[2016-04-13] MEDS ORDERED: LISINOPRIL 20 MG TAB PO SCH (09:00)
[2016-04-13 10:08] VITALS: BP 145/76; PULSE 88
[2016-04-13] MEDS ORDERED: MULTIVITAMINS, THERA 1 EACH TAB PO SCH (12:00)
[2016-04-13] MEDS ORDERED: ADALIMUMAB 40 MG SQ SCH (13:28)
[2016-04-17] MEDS ORDERED: ERGOCALCIFEROL 50,000 UNIT CAP PO SCH (09:00)
== END 2016-04-13 10:49 | disposition home or self-care (01) ==
LOC: EC 05:01 → 4MS4W 09:01
PROVIDERS: ADMIT Family Medicine; ATTEND Family Medicine
DX: R53.1 Weakness (principal); S92.001A Unspecified fracture of right calcaneus, initial encounter for closed fracture; W19.XXXA Unspecified fall, initial encounter; E11.9 Type 2 diabetes mellitus without complications; E03.9 Hypothyroidism, unspecified; E78.5 Hyperlipidemia, unspecified; I10 Essential (primary) hypertension; M06.9 Rheumatoid arthritis, unspecified; M19.90 Unspecified osteoarthritis, unspecified site; M35.00 Sjogren syndrome, unspecified; Z79.52 Long term (current) use of systemic steroids; Z79.82 Long term (current) use of aspirin; Z79.4 Long term (current) use of insulin; Z87.891 Personal history of nicotine dependence; Z79.899 Other long term (current) drug therapy; Z88.1 Allergy status to other antibiotic agents; Z88.2 Allergy status to sulfonamides; R29.90 Unspecified symptoms and signs involving the nervous system; Z91.81 History of falling; R26.9 Unspecified abnormalities of gait and mobility
CPT/HCPCS: 36415; 80053 ×2; 83036; 82550; 82553; 83605; 83735; 84100; 84484; 85025; 85027; 85610; 85730; 81001; 87086; 87502; 71020; 99285; 96375 ×2; 96361 ×2; G0378 ×2; J2930; J1885; J3475; J7512; 93005; 96365

== ENCOUNTER 2016-08-13 18:25 | Emergency (ER) | payer MEDICARE ==
[2016-08-13] MEDS ORDERED: RX INFO: IV CONTRAST WAS GIVEN 1 EACH MISC MISCELLANE PRN (18:53)
[2016-08-13] MEDS ORDERED: SODIUM CHLORIDE 0.9% 1,000 ML IV STA ×2 (18:53)
[2016-08-13] MEDS: IPRATROPIUM 0.5 MG/2.5 ML NEBU INHALATION STA ×2 (19:02→19:08)
[2016-08-13] MEDS: ALBUTEROL NEBULIZED 2.5 MG/3 ML INHALATION STA ×2 (19:02→19:07)
[2016-08-13 19:05] LABS: Basophils % (A) 1 %; Eosinophils # (A) 0.2 k/uL (0-0.7); Eosinophils % (A) 3 %; HCT 40.8 % (34.0-46.0); HDW 2.69; HGB 13.8 gm/dL (11.4-16.0); Luc # (Auto) 0.22; Luc % (Auto) 3; Lymphocytes # (A) 2.9 k/uL (1.0-4.8); Lymphocytes % (A) 41 %; MCH 30.1 pg (25.0-35.0); MCHC 33.9 g/dL (31.0-37.0); MCV 88.6 fL (80.0-100.0); Mean Platelet Volume 6.9; Monocytes # (A) 0.4 k/uL (0-1.0); Monocytes % (A) 6 %; Neutrophils # (A) 3.3 k/uL (1.3-7.7); Neutrophils % (A) 46 %; RDW 14.7 % (11.5-15.5); WBC (Perox) 7.38
[2016-08-13] MEDS: IPRATROPIUM-ALBUTEROL 3 ML NEB INHALATION STA ×2 (19:07→19:08)
[2016-08-13 19:17] LABS: ALT 37 U/L (9-52); AST 27 U/L (14-36); Alkaline Phosphatase 52 U/L (38-126); Anion Gap 12 mmol/L; Blood Urea Nitrogen 18 mg/dL (7-17); Calcium 9.8 mg/dL (8.4-10.2); Carbon Dioxide 27 mmol/L (22-30); Chloride 102 mmol/L (98-107); Glucose 118 mg/dL (74-99); Magnesium 1.7 mg/dL (1.6-2.3); Non-African American GFR(MDRD) >60 (>60 ml/min/1.73 sqM); Potassium 4.1 mmol/L (3.5-5.1); Sodium 141 mmol/L (137-145); Total Bilirubin 0.4 mg/dL (0.2-1.3); Total Protein 7.1 g/dL (6.3-8.2)
[2016-08-13 19:19] LABS: Creatine Kinase 37 U/L (30-135); INR 1.1 (<1.1); Partial Thromboplastin Time 22.1 sec (22.0-30.0); Prothrombin Time 10.7 sec (9.0-12.0)
[2016-08-13 19:33] LABS: Creatine Kinase MB 0.9 ng/mL (0.0-2.4); Troponin I <0.012 ng/mL (0.000-0.034)
--- NOTE | 2016-08-13 19:35 | ED ---
General Adult HPI - General Chief complaint: Shortness of Breath Stated complaint: ROSE Time Seen by Provider: 08/13/16 18:42 Source: patient, family, RN notes reviewed, old records reviewed Mode of arrival: wheelchair Limitations: no limitations - History of Present Illness Initial comments: This is a 75-year-old female with multiple medical complications, multiple medical issues. History of shortness of breath and lung disease. Patient also has history of arthritis, multiple disease modifying factors, biologic medications. No fevers or cough congestion. Patient presented with back pain and shortness of breath for about a week now. We'll pulse ox 1 home today. again no fevers or travel history, patient has been states she was having some coughing, note abdominal pain. No nausea vomiting or diarrhea. Patient did stop taking her medication today she thought that was possibly the problem - Related Data Home Medications Medication Instructions Recorded Confirmed Levothyroxine Sodium [Synthroid] 274 mcg PO SUTUWETHFRSA 02/26/14 08/13/16 Simvastatin [Simvastatin] 40 mg PO HS 02/26/14 08/13/16 glyBURIDE/METFORMIN HCL 2 tab PO BID 02/26/14 08/13/16 [Glucovance 2.5-500 mg Tablet] Calcium Carbonate/Vitamin D3 1 tab PO BID 02/27/14 08/13/16 [Calcium 600 + Vit D Tablet] Carisoprodol [Soma] 350 mg PO QID 02/27/14 08/13/16 Clotrimazole Cream [Lotrimin Cream] 1 applic TOPICAL DAILY PRN 02/27/14 08/13/16 Ergocalciferol [Vitamin D2 50,000 units PO SUTUFR 02/27/14 08/13/16 (DRISDOL)] Fexofenadine/Pseudoephedrine 1 tab PO QID 02/27/14 08/13/16 [Iris-D 24 Hour Tablet] Gabapentin [Neurontin] 1,200 mg PO TID 02/27/14 08/13/16 Glucosamine Sulfate 1,500 mg PO DAILY 02/27/14 08/13/16 HYDROcodone/APAP 10-325MG [[place] 1 tab PO TID PRN 02/27/14 08/13/16 10-325] Insulin NPH Hum/Reg Insulin Hm See Protocol SQ ACHS 02/27/14 08/13/16 [NovoLIN 70-30 100 UNIT/ML VIAL] Lansoprazole [Prevacid] 15 mg PO HS 02/27/14 08/13/16 Multivitamins, Thera [Multivitamin] 1 tab PO DAILY 02/27/14 08/13/16 Pilocarpine HCl [Salagen] 7.5 mg PO TID 02/27/14 08/13/16 predniSONE 4 mg PO QAM 02/27/14 08/13/16 Gabapentin 1,600 mg PO HS 03/09/16 08/13/16 Moexipril HCl [Univasc] 7.5 mg PO QAM 03/09/16 08/13/16 Travoprost [Travatan Z 0.004%] 1 drop BOTH EYES HS 04/12/16 08/13/16 hydrOXYzine HCL [Atarax] 50 mg PO HS PRN 04/12/16 08/13/16 Aspirin EC [Ecotrin Low Dose] 81 mg PO DAILY 08/13/16 08/13/16 Folic Acid 1 mg PO DAILY 08/13/16 08/13/16 Levothyroxine Sodium [Synthroid] 137 mcg PO MO 08/13/16 08/13/16 Methotrexate Sodium [Methotrexate] 2.5 mg PO SUTUFR 08/13/16 08/13/16 Allergies Allergy/AdvReac Type Severity Reaction Status Date / Time adhesive Allergy Rash/Hives Verified 08/13/16 19:29 cephalexin [From Keflex] Allergy Rash/Hives Verified 08/13/16 19:29 Sulfa (Sulfonamide Allergy Rash/Hives Verified 08/13/16 19:29 Antibiotics) Review of Systems ROS Statement: Those systems with pertinent positive or pertinent negative responses have been documented in the HPI. ROS Other: All systems not noted in ROS Statement are negative. Past Medical History Past Medical History: Cancer, Diabetes Mellitus, Hyperlipidemia, Hypertension, Musculoskeletal Disorder, Neurologic Disorder, Osteoarthritis (OA), Renal Disease, Skin Disorder, Thyroid Disorder Additional Past Medical History / Comment(s): IDDM type II, spinal stenosis, Reynauds, neurologic sjogrens BALANCE ISSUES, SINUS INFECTIONS, HAS HAD DOUBLE VISION ALL HER LIFE-when looks certain directions, hypothyroidism, acute kidney failure psoriasis, UTI s, 03-09-16 FALL/RT FOOT FX AND LT EYE CONTUSION, melanoma skin cancer lt arm, bilateral elbow bursitis with MRSA and I&Ds/ antibiotics. History of Any Multi-Drug Resistant Organisms: MRSA Date of last positivie culture/infection: 02/27/14 MDRO Source:: Sputum Past Surgical History: Back Surgery, Breast Surgery, Joint Replacement, Orthopedic Surgery Additional Past Surgical History / Comment(s): Bilateral cataracts with lens implants, arthroscopies to lt wrist, gualberto knees, gualberto ankles, gualberto hips, lt hip replacment and redone, L/R shoulder sxs, rt breast bx-benign, egd/colonoscopy, skin cancer removal L arm. Past Anesthesia/Blood Transfusion Reactions: No Reported Reaction Past Psychological History: No Psychological Hx Reported Smoking Status: Former smoker Past Alcohol Use History: None Reported Past Drug Use History: None Reported - Past Family History Mother Family Medical History: CVA/TIA Additional Family Medical History / Comment(s): RUPTURED BOWEL Father Family Medical History: Cancer, Pneumonia Additional Family Medical History / Comment(s): ASPIRATIVE PNE Sister(s) Additional Family Medical History / Comment(s): at age 34 with lupus General Exam Limitations: no limitations General appearance: alert, in no apparent distress Head exam: Present: atraumatic, normocephalic, normal inspection Eye exam: Present: normal appearance, PERRL, EOMI. Absent: scleral icterus, conjunctival injection, periorbital swelling ENT exam: Present: normal exam, mucous membranes moist Neck exam: Present: normal inspection. Absent: tenderness, meningismus, lymphadenopathy Respiratory exam: Present: normal lung sounds bilaterally. Absent: respiratory distress, wheezes, rales, rhonchi, stridor Cardiovascular Exam: Present: regular rate, normal rhythm, normal heart sounds. Absent: systolic murmur, diastolic murmur, rubs, gallop, clicks GI/Abdominal exam: Present: soft, normal bowel sounds. Absent: distended, tenderness, guarding, rebound, rigid Extremities exam: Present: normal inspection, full ROM, normal capillary refill. Absent: tenderness, pedal edema, joint swelling, calf tenderness Back exam: Present: normal inspection Neurological exam: Present: alert, oriented X3, CN II-XII intact Psychiatric exam: Present: normal affect, normal mood Skin exam: Present: warm, dry, intact, normal color. Absent: rash Course Vital Signs 08/13/16 08/13/16 08/13/16 18:26 19:07 19:18 Temperature 97.8 F Pulse Rate 96 80 82 Respiratory 20 Rate Blood Pressure 169/74 O2 Sat by Pulse 96 Oximetry 08/13/16 08/13/16 19:20 20:17 Temperature Pulse Rate 86 Respiratory 22 18 Rate Blood Pressure 170/73 O2 Sat by Pulse 97 Oximetry - Reevaluation(s) Reevaluation #1: 08/13/16 19:35 Patient has really no improvement of breathing treatment EKG Findings - EKG Comments: EKG Findings:: EKG shows normal sinus rhythm rate of 80, ID 186, QRS 100, QTC 476 Medical Decision Making - Medical Decision Making 75 female ER for evaluation per patient presents here for evaluation chest patient was of breath, chest pain shortness of breath at this time are improved , CT labwork is normal. Patient's in no acute distress and can be discharged home - Lab Data Result diagrams: 08/13/16 18:48 08/13/16 18:48 Lab Results 08/13/16 08/13/16 08/13/16 Range/Units 18:48 18:48 18:48 WBC 7.0 (3.8-10.6) k/uL RBC 4.60 (3.80-5.40) m/uL Hgb 13.8 (11.4-16.0) gm/dL Hct 40.8 (34.0-46.0) % MCV 88.6 (80.0-100.0) fL MCH 30.1 (25.0-35.0) pg MCHC 33.9 (31.0-37.0) g/dL RDW 14.7 (11.5-15.5) % Plt Count 185 (150-450) k/uL Neutrophils % 46 % Lymphocytes % 41 % Monocytes % 6 % Eosinophils % 3 % Basophils % 1 % Neutrophils # 3.3 (1.3-7.7) k/uL Lymphocytes # 2.9 (1.0-4.8) k/uL Monocytes # 0.4 (0-1.0) k/uL Eosinophils # 0.2 (0-0.7) k/uL Basophils # 0.0 (0-0.2) k/uL PT (9.0-12.0) sec INR (<1.1) APTT (22.0-30.0) sec D-Dimer (<0.60) mg/L FEU Sodium 141 (137-145) mmol/L Potassium 4.1 (3.5-5.1) mmol/L Chloride 102 (98-107) mmol/L Carbon Dioxide 27 (22-30) mmol/L Anion Gap 12 mmol/L BUN 18 H (7-17) mg/dL Creatinine 0.57 (0.52-1.04) mg/dL Est GFR (MDRD) Af Amer >60 (>60 ml/min/1.73 sqM) Est GFR (MDRD) Non-Af >60 (>60 ml/min/1.73 sqM) Glucose 118 H (74-99) mg/dL Calcium 9.8 (8.4-10.2) mg/dL Magnesium 1.7 (1.6-2.3) mg/dL Total Bilirubin 0.4 (0.2-1.3) mg/dL AST 27 (14-36) U/L ALT 37 (9-52) U/L Alkaline Phosphatase 52 (38-126) U/L Total Creatine Kinase 37 (30-135) U/L CK-MB (CK-2) 0.9 (0.0-2.4) ng/mL CK-MB (CK-2) Rel Index 2.4 Troponin I <0.012 (0.000-0.034) ng/mL NT-Pro-B Natriuret Pep pg/mL Total Protein 7.1 (6.3-8.2) g/dL Albumin 4.2 (3.5-5.0) g/dL 08/13/16 08/13/16 Range/Units 18:48 18:48 WBC (3.8-10.6) k/uL RBC (3.80-5.40) m/uL Hgb (11.4-16.0) gm/dL Hct (34.0-46.0) % MCV (80.0-100.0) fL MCH (25.0-35.0) pg MCHC (31.0-37.0) g/dL RDW (11.5-15.5) % Plt Count (150-450) k/uL Neutrophils % % Lymphocytes % % Monocytes % % Eosinophils % % Basophils % % Neutrophils # (1.3-7.7) k/uL Lymphocytes # (1.0-4.8) k/uL Monocytes # (0-1.0) k/uL Eosinophils # (0-0.7) k/uL Basophils # (0-0.2) k/uL PT 10.7 (9.0-12.0) sec INR 1.1 (<1.1) APTT 22.1 (22.0-30.0) sec D-Dimer 0.21 (<0.60) mg/L FEU Sodium (137-145) mmol/L Potassium (3.5-5.1) mmol/L Chloride (98-107) mmol/L Carbon Dioxide (22-30) mmol/L Anion Gap mmol/L BUN (7-17) mg/dL Creatinine (0.52-1.04) mg/dL Est GFR (MDRD) Af Amer (>60 ml/min/1.73 sqM) Est GFR (MDRD) Non-Af (>60 ml/min/1.73 sqM) Glucose (74-99) mg/dL Calcium (8.4-10.2) mg/dL Magnesium (1.6-2.3) mg/dL Total Bilirubin (0.2-1.3) mg/dL AST (14-36) U/L ALT (9-52) U/L Alkaline Phosphatase (38-126) U/L Total Creatine Kinase (30-135) U/L CK-MB (CK-2) (0.0-2.4) ng/mL CK-MB (CK-2) Rel Index Troponin I (0.000-0.034) ng/mL NT-Pro-B Natriuret Pep 158 pg/mL Total Protein (6.3-8.2) g/dL Albumin (3.5-5.0) g/dL - Radiology Data Radiology results: report reviewed (CTA chest was negative for acute disease), image reviewed Disposition Clinical Impression: Bronchospasm Disposition: HOME SELF-CARE Condition: Good Instructions: Bronchospasm (ED) Referrals: Nicholas Hart MD [Primary Care Provider] - 1-2 days
[2016-08-13 20:23] VITALS: RESP 18
--- NOTE | 2016-08-13 20:26 | CT ---
EXAMINATION TYPE: CT angio chest DATE OF EXAM: 08/13/2016 8:09 PM COMPARISON: 11/01/2010 HISTORY: Patient denies pain at time of exam. Patient complains of episodes of difficulty breathing. CT DLP: 530.8 mGycm Automated exposure control for dose reduction was used. CONTRAST: CTA scan of the thorax is performed with IV Contrast, patient injected with 100 mL of Visipaque 320, pulmonary embolism protocol. There are 3-D post processed images.. FINDINGS: There is pulmonary interstitial edema. Heart is enlarged. There is no pleural effusion. Thoracic aort a is atheromatous. There is no evidence of aortic aneurysm or dissection. There is no pericardial eff usion. There are large central pulmonary arteries. I see no filling defects in the pulmonary arteries . There is no mediastinal adenopathy. I see no bony destructive process. IMPRESSION: NO EVIDENCE OF PULMONARY EMBOLISM. ATHEROSCLEROTIC VASCULAR DISEASE. CARDIOMEGALY. THERE IS PROBABLY SOME DEGREE OF PULMONARY HYPERTENSION. THERE IS MILD PULMONARY INTERSTITIAL EDEMA THAT COULD RELATE T O CONGESTIVE HEART FAILURE.
--- NOTE | 2016-08-13 20:28 | XR ---
EXAMINATION TYPE: XR chest 2V DATE OF EXAM: 08/13/2016 COMPARISON: 04/12/2016 HISTORY: Short of breath TECHNIQUE: Frontal and lateral views of the chest are obtained. FINDINGS: There is coarsening of interstitial markings. Heart appears enlarged. Lungs are clear of c onsolidation. I see no definite pleural effusion. IMPRESSION: Coarse lung markings that could relate to interstitial fibrosis or mild pulmonary inters titial edema and heart failure. This is similar to old exam. Mild cardiomegaly.
[2016-08-13 20:50] VITALS: BP 141/72; PULSE 87; TEMP 97.2
== END 2016-08-13 20:49 | disposition home or self-care (01) ==
LOC: EC 18:25
DX: J98.01 Acute bronchospasm (principal); M54.9 Dorsalgia, unspecified; R10.9 Unspecified abdominal pain; E78.5 Hyperlipidemia, unspecified; I10 Essential (primary) hypertension; E11.9 Type 2 diabetes mellitus without complications; E03.9 Hypothyroidism, unspecified; M19.90 Unspecified osteoarthritis, unspecified site; L40.9 Psoriasis, unspecified; M35.09 Sjogren syndrome with other organ involvement; Z87.891 Personal history of nicotine dependence; Z79.4 Long term (current) use of insulin; Z79.52 Long term (current) use of systemic steroids; Z79.82 Long term (current) use of aspirin; Z79.84 Long term (current) use of oral hypoglycemic drugs; Z79.899 Other long term (current) drug therapy; Z88.1 Allergy status to other antibiotic agents; Z88.2 Allergy status to sulfonamides; Z91.09 Other allergy status, other than to drugs and biological substances; Z86.69 Personal history of other diseases of the nervous system and sense organs; Z98.890 Other specified postprocedural states; Z83.6 Family history of other diseases of the respiratory system
CPT/HCPCS: 36415; 93005; 85379; 83880; 80053; 82550; 82553; 83735; 84484; 85025; 85610; 85730; 87040; 71020; 71275; 99285; 96360; Q9967

== ENCOUNTER 2016-10-17 20:33 | Emergency (ER) | payer MEDICARE ==
[2016-10-17 20:51] VITALS: RESP 16
[2016-10-17] MEDS ORDERED: SODIUM CHLORIDE 0.9% 1,000 ML IV STA (21:29)
--- NOTE | 2016-10-17 21:32 | ED ---
General Adult HPI - General Chief complaint: Weakness Stated complaint: weakness Time Seen by Provider: 10/17/16 21:13 Source: patient, family, EMS, RN notes reviewed Mode of arrival: EMS Limitations: no limitations - History of Present Illness Initial comments: Patient is a pleasant 76-year-old female presenting to the emergency department with weakness. Patient states she has these episodes frequently associated with her autoimmune disease. Patient has known neurological Sjogren's syndrome , rheumatoid arthritis and psoriatic arthritis. Patient has had similar episodes dozens of times. Patient gets extremely fatigued and weak all over. Patient becomes diaphoretic. Patient had another episode today prior to arrival. Symptoms have improved at this point however not completely resolved. No isolated area of weakness. No confusion. No pain. Onset was fairly sudden. - Related Data Home Medications Medication Instructions Recorded Confirmed Simvastatin [Simvastatin] 40 mg PO HS 02/26/14 10/17/16 glyBURIDE/METFORMIN HCL 2 tab PO BID 02/26/14 10/17/16 [Glucovance 2.5-500 mg Tablet] Calcium Carbonate/Vitamin D3 1 tab PO BID 02/27/14 10/17/16 [Calcium 600 + Vit D Tablet] Carisoprodol [Soma] 350 mg PO ACHS 02/27/14 10/17/16 Clotrimazole Cream [Lotrimin Cream] 1 applic TOPICAL DAILY PRN 02/27/14 10/17/16 Ergocalciferol [Vitamin D2 50,000 units PO SUTUFR 02/27/14 10/17/16 (DRISDOL)] Fexofenadine/Pseudoephedrine 1 tab PO QID 02/27/14 10/17/16 [Iris-D 24 Hour Tablet] Gabapentin [Neurontin] 1,200 mg PO TID 02/27/14 10/17/16 Glucosamine Sulfate 1,500 mg PO DAILY 02/27/14 10/17/16 HYDROcodone/APAP 10-325MG [[place] 1 tab PO TID PRN 02/27/14 10/17/16 10-325] Insulin NPH Hum/Reg Insulin Hm See Protocol SQ [facility] 02/27/14 10/17/16 [NovoLIN 70-30 100 UNIT/ML VIAL] Lansoprazole [Prevacid] 15 mg PO HS 02/27/14 10/17/16 Multivitamins, Thera [Multivitamin] 1 tab PO DAILY 02/27/14 10/17/16 Pilocarpine HCl [Salagen] 7.5 mg PO TID 02/27/14 10/17/16 predniSONE 4 mg PO QAM 02/27/14 10/17/16 Gabapentin 1,600 mg PO HS 03/09/16 10/17/16 Moexipril HCl [Univasc] 7.5 mg PO QAM 03/09/16 10/17/16 Travoprost [Travatan Z 0.004%] 1 drop BOTH EYES HS 04/12/16 10/17/16 hydrOXYzine HCL [Atarax] 50 mg PO HS 04/12/16 10/17/16 Aspirin EC [Ecotrin Low Dose] 81 mg PO DAILY 08/13/16 10/17/16 Folic Acid 1 mg PO DAILY 08/13/16 10/17/16 Adalimumab [Humira Pen] 40 mg SQ [id number] 10/17/16 10/17/16 Levothyroxine Sodium [Synthroid] 250 mcg PO DAILY 10/17/16 10/17/16 Allergies Allergy/AdvReac Type Severity Reaction Status Date / Time adhesive Allergy Rash/Hives Verified 10/17/16 22:08 cephalexin [From Keflex] Allergy Rash/Hives Verified 10/17/16 22:08 Sulfa (Sulfonamide Allergy Rash/Hives Verified 10/17/16 22:08 Antibiotics) Review of Systems ROS Statement: Those systems with pertinent positive or pertinent negative responses have been documented in the HPI. ROS Other: All systems not noted in ROS Statement are negative. Constitutional: Denies: fever Eyes: Denies: eye pain ENT: Denies: ear pain Respiratory: Denies: dyspnea Cardiovascular: Denies: chest pain Endocrine: Reports: fatigue Gastrointestinal: Denies: abdominal pain Genitourinary: Denies: dysuria Musculoskeletal: Denies: back pain Skin: Denies: rash Neurological: Reports: weakness (Generalized) Past Medical History Past Medical History: Cancer, Diabetes Mellitus, Hyperlipidemia, Hypertension, Musculoskeletal Disorder, Neurologic Disorder, Osteoarthritis (OA), Renal Disease, Skin Disorder, Thyroid Disorder Additional Past Medical History / Comment(s): IDDM type II, spinal stenosis, Reynauds, neurologic sjogrens BALANCE ISSUES, SINUS INFECTIONS, HAS HAD DOUBLE VISION ALL HER LIFE-when looks certain directions, hypothyroidism, acute kidney failure psoriasis, UTI s, 1-11-17 FALL/RT FOOT FX AND LT EYE CONTUSION, melanoma skin cancer lt arm, bilateral elbow bursitis with MRSA and I&Ds/ antibiotics. History of Any Multi-Drug Resistant Organisms: MRSA Date of last positivie culture/infection: 02/27/14 MDRO Source:: Sputum Past Surgical History: Back Surgery, Breast Surgery, Joint Replacement, Orthopedic Surgery Additional Past Surgical History / Comment(s): Bilateral cataracts with lens implants, arthroscopies to lt wrist, gualberto knees, gualberto ankles, gualberto hips, lt hip replacment and redone, L/R shoulder sxs, rt breast bx-benign, egd/colonoscopy, skin cancer removal L arm. Past Anesthesia/Blood Transfusion Reactions: No Reported Reaction Past Psychological History: No Psychological Hx Reported Smoking Status: Former smoker Past Alcohol Use History: None Reported Past Drug Use History: None Reported - Past Family History Mother Family Medical History: CVA/TIA Additional Family Medical History / Comment(s): RUPTURED BOWEL Father Family Medical History: Cancer, Pneumonia Additional Family Medical History / Comment(s): ASPIRATIVE PNE Sister(s) Additional Family Medical History / Comment(s): at age 34 with lupus General Exam Limitations: no limitations General appearance: alert, in no apparent distress Head exam: Present: atraumatic Eye exam: Present: normal appearance, PERRL, EOMI. Absent: nystagmus ENT exam: Present: normal oropharynx Neck exam: Present: normal inspection Respiratory exam: Present: normal lung sounds bilaterally Cardiovascular Exam: Present: regular rate, normal rhythm GI/Abdominal exam: Present: soft. Absent: tenderness Extremities exam: Present: normal inspection. Absent: pedal edema, calf tenderness Neurological exam: Present: alert, CN II-XII intact. Absent: motor sensory deficit Expanded Cranial nerves: EOM's Intact: Normal Sensory exam: Upper Extremity Light Touch: Normal, Lower Extremity Light Touch: Normal Motor strength exam: RUE: 5, LUE: 5, RLE: 5, LLE: 5 Eye Response: (4) open spontaneously Motor Response: (6) obeys commands Verbal Response: (5) oriented Psychiatric exam: Present: normal affect, normal mood Skin exam: Present: normal color Course Vital Signs 10/17/16 20:43 Temperature 97.0 F L Pulse Rate 101 H Respiratory 16 Rate Blood Pressure 111/47 O2 Sat by Pulse 96 Oximetry EKG Findings - EKG Comments: EKG Findings:: Sinus rhythm at 81. Sinus arrhythmia. PVC. VT 174. QRS 96. QT 386. QTc 448. Normal axis. Normal QRS. Nonspecific ST-T. Medical Decision Making - Medical Decision Making Patient reexamined and requests discharge. Patient states she feels better. Patient states is happened dozens of times previously. Patient was able to get up without difficulty. - Lab Data Result diagrams: 10/17/16 21:56 10/17/16 21:56 Lab Results 10/17/16 10/17/16 10/17/16 Range/Units 21:56 21:56 21:56 WBC 8.5 (3.8-10.6) k/uL RBC 4.51 (3.80-5.40) m/uL Hgb 13.5 (11.4-16.0) gm/dL Hct 41.1 (34.0-46.0) % MCV 91.3 (80.0-100.0) fL MCH 30.0 (25.0-35.0) pg MCHC 32.9 (31.0-37.0) g/dL RDW 13.7 (11.5-15.5) % Plt Count 210 (150-450) k/uL Neutrophils % 57 % Lymphocytes % 30 % Monocytes % 6 % Eosinophils % 3 % Basophils % 1 % Neutrophils # 4.9 (1.3-7.7) k/uL Lymphocytes # 2.6 (1.0-4.8) k/uL Monocytes # 0.5 (0-1.0) k/uL Eosinophils # 0.2 (0-0.7) k/uL Basophils # 0.0 (0-0.2) k/uL PT (9.0-12.0) sec INR (<1.2) APTT (22.0-30.0) sec Sodium 137 (137-145) mmol/L Potassium 4.5 (3.5-5.1) mmol/L Chloride 100 (98-107) mmol/L Carbon Dioxide 24 (22-30) mmol/L Anion Gap 13 mmol/L BUN 15 (7-17) mg/dL Creatinine 0.89 (0.52-1.04) mg/dL Est GFR (MDRD) Af Amer >60 (>60 ml/min/1.73 sqM) Est GFR (MDRD) Non-Af >60 (>60 ml/min/1.73 sqM) Glucose 263 H (74-99) mg/dL Calcium 9.2 (8.4-10.2) mg/dL Phosphorus 3.7 (2.5-4.5) mg/dL Magnesium 1.5 L (1.6-2.3) mg/dL Total Bilirubin 0.2 (0.2-1.3) mg/dL AST 26 (14-36) U/L ALT 29 (9-52) U/L Alkaline Phosphatase 46 (38-126) U/L Total Creatine Kinase 31 (30-135) U/L CK-MB (CK-2) 0.6 (0.0-2.4) ng/mL CK-MB (CK-2) Rel Index 1.9 Troponin I <0.012 (0.000-0.034) ng/mL Total Protein 6.6 (6.3-8.2) g/dL Albumin 3.9 (3.5-5.0) g/dL Urine Color Urine Appearance (Clear) Urine pH (5.0-8.0) Ur Specific [place] (1.001-1.035) Urine Protein (Negative) Urine Glucose (UA) (Negative) Urine Ketones (Negative) Urine Blood (Negative) Urine Nitrite (Negative) Urine Bilirubin (Negative) Urine Urobilinogen (<2.0) mg/dL Ur Leukocyte Esterase (Negative) Urine RBC (0-5) /hpf Urine WBC (0-5) /hpf Ur Squamous Epith Cells (0-4) /hpf Hyaline Casts (0-2) /lpf Urine Mucus (None) /hpf 10/17/16 10/17/16 Range/Units 21:56 22:45 WBC (3.8-10.6) k/uL RBC (3.80-5.40) m/uL Hgb (11.4-16.0) gm/dL Hct (34.0-46.0) % MCV (80.0-100.0) fL MCH (25.0-35.0) pg MCHC (31.0-37.0) g/dL RDW (11.5-15.5) % Plt Count (150-450) k/uL Neutrophils % % Lymphocytes % % Monocytes % % Eosinophils % % Basophils % % Neutrophils # (1.3-7.7) k/uL Lymphocytes # (1.0-4.8) k/uL Monocytes # (0-1.0) k/uL Eosinophils # (0-0.7) k/uL Basophils # (0-0.2) k/uL PT 10.9 (9.0-12.0) sec INR 1.1 (<1.2) APTT 20.8 L (22.0-30.0) sec Sodium (137-145) mmol/L Potassium (3.5-5.1) mmol/L Chloride (98-107) mmol/L Carbon Dioxide (22-30) mmol/L Anion Gap mmol/L BUN (7-17) mg/dL Creatinine (0.52-1.04) mg/dL Est GFR (MDRD) Af Amer (>60 ml/min/1.73 sqM) Est GFR (MDRD) Non-Af (>60 ml/min/1.73 sqM) Glucose (74-99) mg/dL Calcium (8.4-10.2) mg/dL Phosphorus (2.5-4.5) mg/dL Magnesium (1.6-2.3) mg/dL Total Bilirubin (0.2-1.3) mg/dL AST (14-36) U/L ALT (9-52) U/L Alkaline Phosphatase (38-126) U/L Total Creatine Kinase (30-135) U/L CK-MB (CK-2) (0.0-2.4) ng/mL CK-MB (CK-2) Rel Index Troponin I (0.000-0.034) ng/mL Total Protein (6.3-8.2) g/dL Albumin (3.5-5.0) g/dL Urine Color Yellow Urine Appearance Cloudy H (Clear) Urine pH 5.0 (5.0-8.0) Ur Specific [place] 1.030 (1.001-1.035) Urine Protein 1+ H (Negative) Urine Glucose (UA) Negative (Negative) Urine Ketones Trace H (Negative) Urine Blood Negative (Negative) Urine Nitrite Negative (Negative) Urine Bilirubin 1+ H (Negative) Urine Urobilinogen 2.0 (<2.0) mg/dL Ur Leukocyte Esterase Trace H (Negative) Urine RBC 2 (0-5) /hpf Urine WBC 2 (0-5) /hpf Ur Squamous Epith Cells 2 (0-4) /hpf Hyaline Casts 20 H (0-2) /lpf Urine Mucus Rare H (None) /hpf Disposition Clinical Impression: Generalized weakness Disposition: HOME SELF-CARE Condition: Stable Instructions: Weakness (ED) Additional Instructions: Please follow-up with your doctor, call in the morning. Return for weakness, fever, worsening or change in symptoms or other concerns. Referrals: Nicholas Hart MD [Primary Care Provider] - 1-2 days Time of Disposition: 23:45
[2016-10-17 22:09] LABS: Basophils % (A) 1 %; CH 29.4; CHCM 32.4; Eosinophils # (A) 0.2 k/uL (0-0.7); Eosinophils % (A) 3 %; HCT 41.1 % (34.0-46.0); HGB 13.5 gm/dL (11.4-16.0); Luc # (Auto) 0.27; Luc % (Auto) 3; Lymphocytes # (A) 2.6 k/uL (1.0-4.8); Lymphocytes % (A) 30 %; MCHC 32.9 g/dL (31.0-37.0); MCV 91.3 fL (80.0-100.0); Mean Platelet Volume 6.7; Monocytes # (A) 0.5 k/uL (0-1.0); Monocytes % (A) 6 %; Neutrophils # (A) 4.9 k/uL (1.3-7.7); Neutrophils % (A) 57 %; RBC 4.51 m/uL (3.80-5.40); RDW 13.7 % (11.5-15.5); WBC 8.5 k/uL (3.8-10.6); WBC (Perox) 8.87
[2016-10-17 22:18] LABS: ALT 29 U/L (9-52); AST 26 U/L (14-36); Alkaline Phosphatase 46 U/L (38-126); Anion Gap 13 mmol/L; Blood Urea Nitrogen 15 mg/dL (7-17); Calcium 9.2 mg/dL (8.4-10.2); Carbon Dioxide 24 mmol/L (22-30); Chloride 100 mmol/L (98-107); Glucose 263 mg/dL (74-99); Magnesium 1.5 mg/dL (1.6-2.3); Non-African American GFR(MDRD) >60 (>60 ml/min/1.73 sqM); Phosphorous 3.7 mg/dL (2.5-4.5); Potassium 4.5 mmol/L (3.5-5.1); Sodium 137 mmol/L (137-145); Total Bilirubin 0.2 mg/dL (0.2-1.3); Total Protein 6.6 g/dL (6.3-8.2)
[2016-10-17 22:20] LABS: INR 1.1 (<1.2); Prothrombin Time 10.9 sec (9.0-12.0)
[2016-10-17 22:26] LABS: Partial Thromboplastin Time 20.8 sec (22.0-30.0)
[2016-10-17 22:28] LABS: Creatine Kinase 31 U/L (30-135)
[2016-10-17 22:41] LABS: Creatine Kinase MB 0.6 ng/mL (0.0-2.4); Troponin I <0.012 ng/mL (0.000-0.034)
[2016-10-17 23:09] LABS: Appearance,Urine Cloudy (Clear); Bilirubin,Urine 1+ (Negative); Glucose,Urine (UA) Negative (Negative); Ketones,Urine Trace (Negative); Leukocyte Esterase,Urine Trace (Negative); Mucus,Urine Rare /hpf; Nitrite,Urine Negative (Negative); Particle Count 9897; Protein,Urine 1+ (Negative); RBC,Urine 2 /hpf (0-5); Squamous Epithelial Cell,Urine 2 /hpf (0-4); UA Billing (MACRO vs. MICRO) MICRO; WBC,Urine 2 /hpf (0-5)
[2016-10-17] MEDS ORDERED: MAGNESIUM OXIDE 400 MG TAB PO STA (23:18)
[2016-10-18 00:11] VITALS: BP 116/50; PULSE 76; TEMP 98.3
== END 2016-10-18 00:12 | disposition home or self-care (01) ==
LOC: EC 20:33
DX: R53.1 Weakness (principal); E11.9 Type 2 diabetes mellitus without complications; E78.5 Hyperlipidemia, unspecified; I10 Essential (primary) hypertension; M19.90 Unspecified osteoarthritis, unspecified site; E03.9 Hypothyroidism, unspecified; N17.9 Acute kidney failure, unspecified; Z85.820 Personal history of malignant melanoma of skin; Z87.891 Personal history of nicotine dependence; Z79.4 Long term (current) use of insulin; Z79.82 Long term (current) use of aspirin; Z79.52 Long term (current) use of systemic steroids; Z79.899 Other long term (current) drug therapy; Z88.1 Allergy status to other antibiotic agents; Z88.2 Allergy status to sulfonamides; Z91.048 Other nonmedicinal substance allergy status
CPT/HCPCS: 36415; 80053; 81001; 82550; 82553; 83735; 84100; 84484; 85025; 85610; 85730; 93005; 96360; 96361; 99285

== ENCOUNTER → 2016-11-24 | Outpatient (CLI) | payer MEDICARE | END | disposition home or self-care (01) | LOC: RADMRIMAIN 10:36 | PROVIDERS: ATTEND Family Medicine | DX: Z53.9 Procedure and treatment not carried out, unspecified reason (principal) ==

== ENCOUNTER 2017-08-11 15:41 | Inpatient (IN) | payer MEDICARE ==
[2017-08-11] MEDS ORDERED: SODIUM CHLORIDE 0.9% 1,000 ML IV STA (16:11)
[2017-08-11 16:36] LABS: Anisocytosis Slight; Basophils % (A) 0 %; Eosinophils # (A) 0.2 k/uL (0-0.7); Eosinophils % (A) 2 %; HGB 12.1 gm/dL (11.4-16.0); Hypochromasia Slight; Lymphocytes # (A) 2.3 k/uL (1.0-4.8); Lymphocytes % (A) 31 %; MCV 93.7 fL (80.0-100.0); Mean Platelet Volume 7.3; Monocytes # (A) 0.4 k/uL (0-1.0); Monocytes % (A) 5 %; Neutrophils # (A) 4.6 k/uL (1.3-7.7); Neutrophils % (A) 61 %; Platelet Count 195 k/uL (150-450); RBC 4.05 m/uL (3.80-5.40); WBC 7.6 k/uL (3.8-10.6)
[2017-08-11 16:48] LABS: ALT 30 U/L (9-52); AST 26 U/L (14-36); Albumin 4.1 g/dL (3.5-5.0); Alkaline Phosphatase 48 U/L (38-126); Anion Gap 12 mmol/L; Blood Urea Nitrogen 13 mg/dL (7-17); Calcium 9.5 mg/dL (8.4-10.2); Carbon Dioxide 26 mmol/L (22-30); Chloride 103 mmol/L (98-107); Glucose 127 mg/dL (74-99); Magnesium 1.6 mg/dL (1.6-2.3); Phosphorus 3.9 mg/dL (2.5-4.5); Potassium 4.5 mmol/L (3.5-5.1); Sodium 141 mmol/L (137-145); Total Bilirubin 0.4 mg/dL (0.2-1.3); Total Protein 6.9 g/dL (6.3-8.2)
[2017-08-11 16:55] LABS: INR 1.1 (<1.2); Partial Thromboplastin Time 22.7 sec (22.0-30.0); Prothrombin Time 10.6 sec (9.0-12.0)
--- NOTE | 2017-08-11 16:58 | XR ---
EXAMINATION TYPE: XR chest 2V DATE OF EXAM: 08/11/2017 COMPARISON: Prior chest x-ray 08/13/2016 HISTORY: Shortness of breath and irregular heartbeat, weakness TECHNIQUE: Frontal and lateral views of the chest are obtained. FINDINGS: Prominent lung volume could be indicative of underlying COPD. Central vascularity is incre ased, the heart is enlarged. No evident pneumothorax or pleural effusion. Question some increase in t he interstitium. IMPRESSION: Correlate for pulmonary artery hypertension, possible early congestive heart failure, fo llow-up suggested
[2017-08-11 17:11] LABS: Creatine Kinase MB 0.9 ng/mL (0.0-2.4); Troponin I 0.024 ng/mL (0.000-0.034)
[2017-08-11] MEDS ORDERED: DILTIAZEM 50 MG in SODIUM CHLORIDE 0.9% 40 ML IV ONE (17:18)
--- NOTE | 2017-08-11 17:18 | ED ---
General Adult HPI - General Chief complaint: Shortness of Breath Stated complaint: ROSE Time Seen by Provider: 08/11/17 15:58 Source: patient, RN notes reviewed, old records reviewed Mode of arrival: ambulatory Limitations: physical limitation - History of Present Illness Initial comments: This is a 76-year-old male to the ER for evaluation. They presents for evaluation regarding shortness of breath cough and congestion. Patient has significant shortness of breath, no specific chest pain. She states severe shortness of breath with exertion. 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 No prior similar episodes of elevated heart rate and irregular heart rate. Patient states any activity makes her severely short of breath. Denies fever and again denies chest pain - Related Data Home Medications Medication Instructions Recorded Confirmed Calcium Carbonate/Vitamin D3 1 tab PO BID 02/27/14 08/11/17 [Calcium 600 + Vit D Tablet] Carisoprodol [Soma] 350 mg PO ACHS 02/27/14 08/11/17 Clotrimazole Cream [Lotrimin Cream] 1 applic TOPICAL DAILY PRN 02/27/14 08/11/17 Fexofenadine/Pseudoephedrine 1 tab PO QID 02/27/14 08/11/17 [Iris-D 24 Hour Tablet] Gabapentin [Neurontin] 1,200 mg PO TID 02/27/14 08/11/17 Glucosamine Sulfate 1,500 mg PO DAILY 02/27/14 08/11/17 HYDROcodone/APAP 10-325MG [[place] 1 tab PO DAILY 02/27/14 08/11/17 10-325] Insulin NPH Hum/Reg Insulin Hm See Protocol SQ [facility] 02/27/14 08/11/17 [NovoLIN 70-30 100 UNIT/ML VIAL] Lansoprazole [Prevacid] 15 mg PO HS 02/27/14 08/11/17 Multivitamins, Thera [Multivitamin] 1 tab PO DAILY 02/27/14 08/11/17 Pilocarpine HCl [Salagen] 7.5 mg PO TID 02/27/14 08/11/17 predniSONE 4 mg PO QAM 02/27/14 08/11/17 Gabapentin 1,600 mg PO HS 03/09/16 08/11/17 Moexipril HCl [Univasc] 15 mg PO QAM 03/09/16 08/11/17 hydrOXYzine HCL [Atarax] 50 mg PO HS 04/12/16 08/11/17 Folic Acid 1 mg PO DAILY 08/13/16 08/11/17 Adalimumab [Humira Pen] 40 mg SQ WE 10/17/16 08/11/17 Acetaminophen [Tylenol Arthritis] 650 mg PO Q6H PRN 08/11/17 08/11/17 Aspirin 325 mg PO DAILY 08/11/17 08/11/17 Atorvastatin [Lipitor] 40 mg PO HS 08/11/17 08/11/17 Latanoprost [Xalatan 0.005%] 1 drop BOTH EYES HS 08/11/17 08/11/17 Levothyroxine Sodium [Synthroid] 124 mcg PO DAILY 08/11/17 08/11/17 Methotrexate Sodium [Methotrexate] 12.5 mg PO WE 08/11/17 08/11/17 metFORMIN HCL [Glucophage] 1,000 mg PO AC-BID 08/11/17 08/11/17 traMADol HCL [Ultram] 50 mg PO Q6HR PRN 08/11/17 08/11/17 Allergies Allergy/AdvReac Type Severity Reaction Status Date / Time adhesive Allergy Rash/Hives Verified 08/11/17 16:17 cephalexin [From Keflex] Allergy Rash/Hives Verified 08/11/17 16:17 grass pollen Allergy Unknown Verified 08/11/17 16:17 mold Allergy Unknown Verified 08/11/17 16:17 Sulfa (Sulfonamide Allergy Rash/Hives Verified 08/11/17 16:17 Antibiotics) yeast, dried Allergy Unknown Verified 08/11/17 16:17 newspaper ink Allergy Unknown Uncoded 08/11/17 16:17 Review of Systems ROS Statement: Those systems with pertinent positive or pertinent negative responses have been documented in the HPI. ROS Other: All systems not noted in ROS Statement are negative. Past Medical History Past Medical History: Cancer, Diabetes Mellitus, Hyperlipidemia, Hypertension, Musculoskeletal Disorder, Neurologic Disorder, Osteoarthritis (OA), Renal Disease, Skin Disorder, Thyroid Disorder Additional Past Medical History / Comment(s): IDDM type II, spinal stenosis, Reynauds, neurologic sjogrens BALANCE ISSUES, SINUS INFECTIONS, HAS HAD DOUBLE VISION ALL HER LIFE-when looks certain directions, hypothyroidism, acute kidney failure psoriasis, UTI s, 03-09-16 FALL/RT FOOT FX AND LT EYE CONTUSION, melanoma skin cancer lt arm, bilateral elbow bursitis with MRSA and I&Ds/ antibiotics. History of Any Multi-Drug Resistant Organisms: MRSA Date of last positivie culture/infection: 02/27/14 MDRO Source:: Sputum Past Surgical History: Back Surgery, Breast Surgery, Joint Replacement, Orthopedic Surgery Additional Past Surgical History / Comment(s): Bilateral cataracts with lens implants, arthroscopies to lt wrist, gualberto knees, gualberto ankles, gualberto hips, lt hip replacment and redone, L/R shoulder sxs, rt breast bx-benign, egd/colonoscopy, skin cancer removal L arm. Past Anesthesia/Blood Transfusion Reactions: No Reported Reaction Past Psychological History: No Psychological Hx Reported Smoking Status: Former smoker Past Alcohol Use History: None Reported Past Drug Use History: None Reported - Past Family History Mother Family Medical History: CVA/TIA Additional Family Medical History / Comment(s): RUPTURED BOWEL Father Family Medical History: Cancer, Pneumonia Additional Family Medical History / Comment(s): ASPIRATIVE PNE Sister(s) Additional Family Medical History / Comment(s): at age 34 with lupus General Exam Limitations: physical limitation General appearance: alert, in no apparent distress, anxious Head exam: Present: atraumatic, normocephalic, normal inspection Eye exam: Present: normal appearance, PERRL, EOMI. Absent: scleral icterus, conjunctival injection, periorbital swelling ENT exam: Present: normal exam, mucous membranes moist Neck exam: Present: normal inspection. Absent: tenderness, meningismus, lymphadenopathy Respiratory exam: Present: normal lung sounds bilaterally. Absent: respiratory distress, wheezes, rales, rhonchi, stridor Cardiovascular Exam: Present: tachycardia, irregular rhythm, normal heart sounds. Absent: systolic murmur, diastolic murmur, rubs, gallop, clicks GI/Abdominal exam: Present: soft, normal bowel sounds. Absent: distended, tenderness, guarding, rebound, rigid Extremities exam: Present: normal inspection, full ROM, normal capillary refill. Absent: tenderness, pedal edema, joint swelling, calf tenderness Back exam: Present: normal inspection Neurological exam: Present: alert, oriented X3, CN II-XII intact Psychiatric exam: Present: normal affect, normal mood Skin exam: Present: warm, dry, intact, normal color. Absent: rash Course Vital Signs 08/11/17 08/11/17 08/11/17 15:54 16:56 17:54 Temperature 97.7 F Pulse Rate 103 H 125 H 110 H Respiratory 22 20 20 Rate Blood Pressure 109/85 171/87 148/82 O2 Sat by Pulse 95 94 L 95 Oximetry - Reevaluation(s) Reevaluation #1: 08/11/17 17:57 Patient is having improvement heart rate control with medication here in the emergency room EKG Findings - EKG Comments: EKG Findings:: EKG shows A. fib with RVR rate 123, QRS 02, QTc 503 Medical Decision Making - Medical Decision Making 76 female the ER for evaluation of shortness of breath cough or congestion. Patient presented today for continued shortness of breath tachycardia and elevated heart rate. Positive new onset atrial fibrillation with RVR. Patient to be admitted for cardiology evaluation - Lab Data Result diagrams: 08/11/17 16:22 08/11/17 16:22 Lab Results 08/11/17 08/11/17 08/11/17 Range/Units 16:22 16:22 16:22 WBC 7.6 (3.8-10.6) k/uL RBC 4.05 (3.80-5.40) m/uL Hgb 12.1 (11.4-16.0) gm/dL Hct 38.0 (34.0-46.0) % MCV 93.7 (80.0-100.0) fL MCH 30.0 (25.0-35.0) pg MCHC 32.0 (31.0-37.0) g/dL RDW 16.0 H (11.5-15.5) % Plt Count 195 (150-450) k/uL Neutrophils % 61 % Lymphocytes % 31 % Monocytes % 5 % Eosinophils % 2 % Basophils % 0 % Neutrophils # 4.6 (1.3-7.7) k/uL Lymphocytes # 2.3 (1.0-4.8) k/uL Monocytes # 0.4 (0-1.0) k/uL Eosinophils # 0.2 (0-0.7) k/uL Basophils # 0.0 (0-0.2) k/uL Hypochromasia Slight Anisocytosis Slight PT (9.0-12.0) sec INR (<1.2) APTT (22.0-30.0) sec D-Dimer (<0.60) mg/L FEU Sodium 141 (137-145) mmol/L Potassium 4.5 (3.5-5.1) mmol/L Chloride 103 (98-107) mmol/L Carbon Dioxide 26 (22-30) mmol/L Anion Gap 12 mmol/L BUN 13 (7-17) mg/dL Creatinine 0.60 (0.52-1.04) mg/dL Est GFR (CKD-EPI)AfAm >90 (>60 ml/min/1.73 sqM) Est GFR (CKD-EPI)NonAf 90 (>60 ml/min/1.73 sqM) Glucose 127 H (74-99) mg/dL Calcium 9.5 (8.4-10.2) mg/dL Phosphorus 3.9 (2.5-4.5) mg/dL Magnesium 1.6 (1.6-2.3) mg/dL Total Bilirubin 0.4 (0.2-1.3) mg/dL AST 26 (14-36) U/L ALT 30 (9-52) U/L Alkaline Phosphatase 48 (38-126) U/L Total Creatine Kinase 22 L (30-135) U/L CK-MB (CK-2) 0.9 (0.0-2.4) ng/mL CK-MB (CK-2) Rel Index 4.1 Troponin I 0.024 (0.000-0.034) ng/mL NT-Pro-B Natriuret Pep pg/mL Total Protein 6.9 (6.3-8.2) g/dL Albumin 4.1 (3.5-5.0) g/dL TSH 1.810 (0.465-4.680) mIU/L 08/11/17 08/11/17 Range/Units 16:22 16:22 WBC (3.8-10.6) k/uL RBC (3.80-5.40) m/uL Hgb (11.4-16.0) gm/dL Hct (34.0-46.0) % MCV (80.0-100.0) fL MCH (25.0-35.0) pg MCHC (31.0-37.0) g/dL RDW (11.5-15.5) % Plt Count (150-450) k/uL Neutrophils % % Lymphocytes % % Monocytes % % Eosinophils % % Basophils % % Neutrophils # (1.3-7.7) k/uL Lymphocytes # (1.0-4.8) k/uL Monocytes # (0-1.0) k/uL Eosinophils # (0-0.7) k/uL Basophils # (0-0.2) k/uL Hypochromasia Anisocytosis PT 10.6 (9.0-12.0) sec INR 1.1 (<1.2) APTT 22.7 (22.0-30.0) sec D-Dimer 1.61 H (<0.60) mg/L FEU Sodium (137-145) mmol/L Potassium (3.5-5.1) mmol/L Chloride (98-107) mmol/L Carbon Dioxide (22-30) mmol/L Anion Gap mmol/L BUN (7-17) mg/dL Creatinine (0.52-1.04) mg/dL Est GFR (CKD-EPI)AfAm (>60 ml/min/1.73 sqM) Est GFR (CKD-EPI)NonAf (>60 ml/min/1.73 sqM) Glucose (74-99) mg/dL Calcium (8.4-10.2) mg/dL Phosphorus (2.5-4.5) mg/dL Magnesium (1.6-2.3) mg/dL Total Bilirubin (0.2-1.3) mg/dL AST (14-36) U/L ALT (9-52) U/L Alkaline Phosphatase (38-126) U/L Total Creatine Kinase (30-135) U/L CK-MB (CK-2) (0.0-2.4) ng/mL CK-MB (CK-2) Rel Index Troponin I (0.000-0.034) ng/mL NT-Pro-B Natriuret Pep 1000 pg/mL Total Protein (6.3-8.2) g/dL Albumin (3.5-5.0) g/dL TSH (0.465-4.680) mIU/L - Radiology Data Radiology results: report reviewed (Chest x-ray negative for acute disease, CTA pending), image reviewed Disposition Clinical Impression: Atrial fibrillation with RVR Disposition: ADMITTED IP TO THIS HOSP Condition: Fair Referrals: Nicholas Hart MD [Primary Care Provider] - 1-2 days
[2017-08-11 17:21] LABS: D-Dimer 1.61 mg/L FEU (<0.60)
[2017-08-11] MEDS ORDERED: traMADol 50 MG TAB PO STA (17:47)
[2017-08-11] MEDS ORDERED: ASPIRIN 81 MG PO STA (17:55)
[2017-08-11] MEDS ORDERED: HEPARIN SODIUM,PORCINE 5,000 UNIT/ML 1 ML VIAL IV ONE (17:55)
[2017-08-11] MEDS ORDERED: HEPARIN SODIUM,PORCINE 5,000 UNIT/ML 1 ML VIAL IV PRN (17:55)
[2017-08-11] MEDS ORDERED: NITROGLYCERIN SL TABS 0.4 MG TAB SUBLINGUAL PRN (17:55)
[2017-08-11] MEDS ORDERED: HEPARIN SOD,PORK IN 0.45% NACL 25,000 UNIT in 0.45% NACL 1 500ML.BAG IV SCH (18:00)
[2017-08-11] MEDS ORDERED: HEPARIN SODIUM,PORCINE/D5W PMX 25,000 UNIT in DEXTROSE/WATER 1 500ML.BAG IV SCH (18:20)
--- NOTE | 2017-08-11 18:32 | CT ---
EXAMINATION TYPE: CT angio chest DATE OF EXAM: 08/11/2017 6:25 PM COMPARISON: 08/13/2016 HISTORY: SOB/AFIB CT DLP: 524.8 mGycm Automated exposure control for dose reduction was used. CONTRAST: CTA scan of the thorax is performed with IV Contrast, patient injected with 100 mL of Isovue 370, pul monary embolism protocol. There are 3-D post processed images.. FINDINGS: There are bilateral pleural effusions. Heart size is normal. There is no pericardial effusion. There is some groundglass interstitial infiltrates throughout the lungs. There is bilateral mild bronchial adenopathy with lymph nodes that measure up to 1.5 cm. There are paratracheal lymph nodes that measur e up to 1.7 cm. There is some anterior mediastinal adenopathy. There is a 22 x 12 mm lymph node. Thor acic aorta is atheromatous. I see no filling defects in the pulmonary arteries. There is degenerative spurring in the thoracic sp ine. IMPRESSION: NO EVIDENCE OF PULMONARY EMBOLISM. THERE IS MEDIASTINAL AND BRONCHIAL ADENOPATHY THAT APPEARS INCREASED COMPARED TO LAST EXAM. GROUNDGLA SS INTERSTITIAL PULMONARY DENSITY IS SLIGHTLY INCREASED COMPARED TO OLD EXAM. THERE ARE NEW BILATERAL PLEURAL EFFUSIONS. CHEST FINDINGS MORE LIKELY RELATED TO INFLAMMATORY DISEASE.
[2017-08-11] MEDS: SODIUM CHLORIDE 0.9% 1,000 ML IV SCH (18:37)
[2017-08-11 20:18] VITALS: BMI 36.6
[2017-08-11] MEDS ORDERED: CLOTRIMAZOLE 1% CREAM 15 GM TUBE TOPICAL PRN (20:19)
[2017-08-11] MEDS ORDERED: ACETAMINOPHEN TAB 325 MG TAB PO PRN (20:19)
[2017-08-11 20:44] LABS: Glucose,Whole Blood 215 mg/dL (75-99)
[2017-08-11] MEDS ORDERED: METOPROLOL TARTRATE 25 MG TAB PO SCH (21:00)
[2017-08-11] MEDS ORDERED: GABAPENTIN 400 MG CAP PO SCH (21:00)
[2017-08-11] MEDS: ATORVASTATIN 40 MG TAB PO SCH (21:22)
[2017-08-11] MEDS: hydrOXYzine HCL 25 MG TAB PO SCH (21:23)
[2017-08-11] MEDS: LORATADINE-PSEUDOEPH 5-120 MG 1 EACH TAB.ER.12H PO SCH (21:23)
[2017-08-11] MEDS: CALCIUM CARB-VIT D 500MG-200UN 1 EACH TAB PO SCH (21:23)
[2017-08-11] MEDS: PILOCARPINE 5 MG TAB PO SCH (21:24)
[2017-08-11] MEDS: INSULIN ASPART 100 UNIT/ML 1 ML 10 ML VIAL SQ SCH (21:28)
[2017-08-11] MEDS: LATANOPROST 0.005% OPHTH DROPS 2.5 ML BTL BOTH EYES SCH (21:29)
[2017-08-11] MEDS: CARISOPRODOL 350 MG TAB PO SCH (21:57)
[2017-08-11 23:03] LABS: Troponin I 0.034 ng/mL (0.000-0.034)
[2017-08-12 01:35] LABS: Hemoglobin A1C 7.1 % (4.0-6.0)
[2017-08-12] MEDS: HYDROcodone/APAP 10-325MG 1 EACH TAB PO PRN (03:25)
[2017-08-12 04:32] LABS: Platelet Count 173 k/uL (150-450)
[2017-08-12 04:57] LABS: Cholesterol 88 mg/dL (<200); HDL Cholesterol 53 mg/dL (40-60); LDL Cholesterol,Calculated 20 mg/dL (0-99); Triglycerides 77 mg/dL (<150)
[2017-08-12] MEDS: SODIUM CHLORIDE 0.9% 1,000 ML IV SCH (04:58)
[2017-08-12 05:09] LABS: Creatine Kinase MB 0.7 ng/mL (0.0-2.4)
[2017-08-12 05:16] LABS: Troponin I 0.039 ng/mL (0.000-0.034)
[2017-08-12 05:30] LABS: Glucose,Whole Blood 169 mg/dL (75-99)
[2017-08-12] MEDS: CARISOPRODOL 350 MG TAB PO SCH ×4 (06:52→20:31)
[2017-08-12] MEDS: INSULIN ASPART 100 UNIT/ML 1 ML 10 ML VIAL SQ SCH ×4 (06:53→21:13)
[2017-08-12] MEDS: LEVOTHYROXINE 112 MCG TAB PO SCH (06:53)
[2017-08-12] MEDS: PANTOPRAZOLE 40 MG TABLET PO SCH (06:54)
[2017-08-12] MEDS ORDERED: GABAPENTIN 400 MG CAP PO SCH (08:00)
[2017-08-12] MEDS ORDERED: GLUCOSAMINE SULFATE 1500 MG PO SCH (09:00)
[2017-08-12] MEDS ORDERED: HYDROcodone/APAP 10-325MG 1 EACH TAB PO SCH (09:00)
[2017-08-12] MEDS ORDERED: ASPIRIN 325 MG TAB PO SCH ×2 (09:00)
[2017-08-12] MEDS: PILOCARPINE 5 MG TAB PO SCH ×3 (09:06→20:33)
[2017-08-12] MEDS: FOLIC ACID 1 MG TAB PO SCH (09:07)
[2017-08-12] MEDS: CALCIUM CARB-VIT D 500MG-200UN 1 EACH TAB PO SCH ×2 (09:07→20:31)
[2017-08-12] MEDS: LORATADINE-PSEUDOEPH 5-120 MG 1 EACH TAB.ER.12H PO SCH ×2 (09:08→20:32)
[2017-08-12] MEDS: metFORMIN 500 MG TAB PO SCH ×2 (09:08→17:18)
[2017-08-12] MEDS: APIXABAN 5 MG TAB PO SCH ×2 (09:09→20:31)
[2017-08-12] MEDS: METOPROLOL TARTRATE 50 MG TAB PO SCH ×2 (09:09→20:32)
[2017-08-12] MEDS: LISINOPRIL 20 MG TAB PO SCH (09:09)
[2017-08-12] MEDS: MULTIVITAMINS, THERA 1 EACH TAB PO SCH (09:10)
[2017-08-12] MEDS: predniSONE 1 MG TAB PO SCH (09:10)
[2017-08-12 10:13] LABS: Glucose,Whole Blood 166 mg/dL (75-99)
[2017-08-12] MEDS ORDERED: FUROSEMIDE 10 MG/ML 4 ML VIAL IV STA (11:14)
--- NOTE | 2017-08-12 11:26 | CONS ---
CONSULTATION Rosalva Lr is a 76-year-old female with a history of rheumatoid arthritis who follows with Dr. Gillette. She presented to the hospital with several weeks of shortness of breath even when she laid down. No chest discomfort. She was severely short of breath with average exertion. She states that she has started on steroids for pulmonary rheumatoid and since then she has been quite short of breath. There is no past history of atrial fibrillation. She was found to be in atrial fibrillation with RVR. She denies any chest discomfort. REVIEW OF SYSTEMS: No fever, chills, or rigors. No cough or expectoration. No nausea, vomiting, or diarrhea. No hematuria or dysuria. No strokes, seizures or skin lesions. No musculoskeletal complaints. MEDICATIONS: Home medications include calcium, Soma and gabapentin, pain medications, insulin, pilocarpine, prednisone, gabapentin, Univasc, , Lipitor, methotrexate, Glucophage, and tramadol. ALLERGIES: ALLERGIES TO ADHESIVE TAPE, KEFLEX, SULFA. PAST MEDICAL HISTORY: Diabetes, dyslipidemia, hypertension, increased BMI, morbid obesity, renal disease, type 2 diabetes, spinal stenosis, renal phenomena. PAST SURGICAL HISTORY: Orthopedic surgeries, cataract surgery. SOCIAL HISTORY: She is a former smoker. FAMILY HISTORY: CVA. PHYSICAL EXAMINATION: VITAL SIGNS: On examination, her blood pressure was 109/85, 148/82 mmHg, pulse rate was 125 beats per minute. She was afebrile, pulse ox was 95% on room air. Breath sounds are reduced bilaterally. Rhythm is irregular. She is on IV Cardizem drip. ABDOMEN: Soft, nontender. Extremities are warm. 12-lead ECG shows atrial fibrillation with RVR. IMPRESSION: 1. 76-year-old female presenting with shortness of breath with exertion as well as when lying flat in bed. 2. History of hypertension, diabetes type 2, dyslipidemia. 3. History of morbid obesity. 4. New onset atrial fibrillation or newly diagnosed atrial fibrillation possibly for the last 3 weeks since she has been having symptoms for the last 3 weeks. SUGGEST: 1. Start Eliquis 5 mg twice daily and heparin can be discontinued thereafter. 2. Metoprolol 50 mg twice daily and IV Cardizem can be discontinued thereafter. 3. 2D echo and Doppler study to assess cardiac structure and function. 4. I would recommend anticoagulation and rate control. Labs reviewed and hemoglobin is 12. D-dimer was elevated 1.61. Kidney function is normal. Troponin is borderline elevated. LDL 20, TSH is 1.8. From a cardiac standpoint, I would recommend anticoagulation, rate controlled. From a medical standpoint, workup for elevated D-dimer in view for shortness of breath and a borderline troponin and atrial fibrillation should be considered since she has obesity and risk factors for DVT. MMODL / IJN: [id number] /
[2017-08-12 12:13] LABS: Glucose,Whole Blood 167 mg/dL (75-99)
[2017-08-12] MEDS: GABAPENTIN 800 MG PO SCH ×2 (12:14→17:17)
[2017-08-12] MEDS: traMADol 50 MG TAB PO PRN ×2 (12:26→18:43)
--- NOTE | 2017-08-12 13:18 | ECHOF ---
Referral Reason:Cardiac function MEASUREMENTS -------- HEIGHT: 182.9 cm WEIGHT: 134.3 kg BP: IVSd: 1.3 cm (0.6 - 1.1) LVIDd: 5.1 cm (3.9 - 5.3) LVPWd: 1.4 cm (0.6 - 1.1) IVSs: 1.6 cm LVIDs: 4.3 cm LVPWs: 1.2 cm LA Diam: 4.4 cm (2.7 - 3.8) RVIDd: 2.6 cm (< 3.3) LAESV Index (A-L): 59.14 ml/m Ao Diam: 3.3 cm (2.0 - 3.7) LA Diam: 4.4 cm (2.7 - 3.8) AV Cusp: 1.6 cm (1.5 - 2.6) EPSS: 1.1 cm MV E Zi: 1.14 m/s MV DecT: 222 ms MV A Zi: 0.23 m/s MV E/A Ratio: 5.03 RAP: 5.00 mmHg RVSP: 38.46 mmHg MV EF SLOPE: 46.41 mm/s (70 - 150) MV EXCURSION: 14.45 mm (> 18.000) FINDINGS -------- Undetermined rhythm. This was a technically adequate study. Morbid Obesity The left ventricular size is normal. There is mild concentric left ventricular hypertrophy. Overa ll left ventricular systolic function is low-normal with, an EF between 50 - 55 %. The right ventricle is normal in size. The left atrium is moderately dilated. LA is moderately dilated 34-39 ml/m2 The right atrial size is normal. There is mild aortic valve sclerosis. There is no evidence of aortic regurgitation. Moderate mitral annular calcification present. Moderate mitral regurgitation is present. The pea k and mean MV gradients are 16.16mmHg 5.08mmHg as measured by doppler. Mild tricuspid regurgitation present. There is mild pulmonary hypertension. The right ventricular systolic pressure, as measured by Doppler, is 38.46mmHg. Trace/mild (physiologic) pulmonic regurgitation. The aortic root size is normal. There is no pericardial effusion. CONCLUSIONS -------- 1. This was a technically adequate study. 2. Morbid Obesity 3. The left ventricular size is normal. 4. There is mild concentric left ventricular hypertrophy. 5. Overall left ventricular systolic function is low-normal with, an EF between 50 - 55 %. 6. The right ventricle is normal in size. 7. The left atrium is moderately dilated. 8. LA is moderately dilated 34-39 ml/m2 9. The right atrial size is normal. 10. There is mild aortic valve sclerosis. 11. Moderate mitral annular calcification present. 12. Moderate mitral regurgitation is present. 13. The peak and mean MV gradients are 16.16mmHg 5.08mmHg as measured by doppler. 14. Mild tricuspid regurgitation present. 15. There is mild pulmonary hypertension. 16. The right ventricular systolic pressure, as measured by Doppler, is 38.46mmHg. 17. Trace/mild (physiologic) pulmonic regurgitation. 18. The aortic root size is normal. 19. There is no pericardial effusion. EDUCATIONAL RECRUITER: Yue Patel RDCS
--- NOTE | 2017-08-12 13:52 | P.HPIM ---
History of Present Illness 76-year-old female came in with complaints of shortness of breath cough with whitish production. Patient does have history of Sjogrens with systemic involvement including the lungs. Denied any orthopnea PND was found to be in atrial fibrillation with rapid ventricular rate had a computed tomography scan of the head chest which showed bilateral pleural effusions and some possible groundglass a paced is in the lung bases probably pulmonary edema, has BNP of thousand was admitted patient is presently rate controlled started on metoprolol. Metoprolol dose was increased today after which patient started having lightheadedness. Patient is saturating at 94% I'm giving her IV Lasix because of her lightheadedness improved with increased dose of metoprolol in the dose of IV Lasix all will monitor her overnight today if patient is clinically doing will be discharged tomorrow was a valid by cardiology and they recommended anticoagulation with the Eliquis, cleared for discharge. Patient's d-dimer is bit elevated because of which patient underwent CT angios the chest which did not show any pulmonary embolism. Patient denied any fever chills, no leukocytosis. Review of Systems REVIEW OF SYSTEMS: CONSTITUTIONAL: No fever, no malaise, no fatigue. HEENT: No recent visual problems or hearing problems. Denied any sore throat. CARDIOVASCULAR: No chest pain, orthopnea, PND, no palpitations, no syncope. PULMONARY: As mentioned in HPI GASTROINTESTINAL: No diarrhea, no nausea, no vomiting, no abdominal pain. Normoactive bowel sounds. NEUROLOGICAL: No headaches, no weakness, no numbness. HEMATOLOGICAL: Denies any bleeding or petechiae. GENITOURINARY: Denies any burning micturition, frequency, or urgency. MUSCULOSKELETAL/RHEUMATOLOGICAL: Denies any joint pain, swelling, or any muscle pain. ENDOCRINE: Denies any polyuria or polydipsia. The rest of the 14-point review of systems is negative. Past Medical History Past Medical History: Cancer, Diabetes Mellitus, Hyperlipidemia, Hypertension, Musculoskeletal Disorder, Neurologic Disorder, Osteoarthritis (OA), Renal Disease, Skin Disorder, Thyroid Disorder Additional Past Medical History / Comment(s): IDDM type II, spinal stenosis, Reynauds, neurologic sjogrens BALANCE ISSUES, SINUS INFECTIONS, HAS HAD DOUBLE VISION ALL HER LIFE-when looks certain directions, hypothyroidism, acute kidney failure psoriasis, UTI s, 03-09-16 FALL/RT FOOT FX AND LT EYE CONTUSION, melanoma skin cancer lt arm, bilateral elbow bursitis with MRSA and I&Ds/ antibiotics. History of Any Multi-Drug Resistant Organisms: MRSA Date of last positivie culture/infection: 02/27/14 MDRO Source:: Sputum Past Surgical History: Back Surgery, Breast Surgery, Joint Replacement, Orthopedic Surgery Additional Past Surgical History / Comment(s): Bilateral cataracts with lens implants, arthroscopies to lt wrist, gualberto knees, gualberto ankles, gualberto hips, lt hip replacment and redone, L/R shoulder sxs, rt breast bx-benign, egd/colonoscopy, skin cancer removal L arm. Past Anesthesia/Blood Transfusion Reactions: No Reported Reaction Past Psychological History: No Psychological Hx Reported Additional Psychological History / Comment(s): Pt resides with her spouse. She is currently wearing a R leg immobilizer. She is also using crutches to ambulate. She is not driving at this time, but was prior to her R foot fracture. No home care. Smoking Status: Former smoker Past Alcohol Use History: None Reported Additional Past Alcohol Use History / Comment(s): Pt started smoking in college and QUIT SMOKING in 1969 Past Drug Use History: None Reported - Past Family History Mother Family Medical History: CVA/TIA Additional Family Medical History / Comment(s): RUPTURED BOWEL Father Family Medical History: Cancer, Pneumonia Additional Family Medical History / Comment(s): ASPIRATIVE PNA Sister(s) Additional Family Medical History / Comment(s): at age 34 with lupus Medications and Allergies Home Medications Medication Instructions Recorded Confirmed Type Calcium Carbonate/Vitamin D3 1 tab PO BID 02/27/14 08/11/17 History [Calcium 600 + Vit D Tablet] Carisoprodol [Soma] 350 mg PO ACHS 02/27/14 08/11/17 History Clotrimazole Cream [Lotrimin Cream] 1 applic TOPICAL DAILY PRN 02/27/14 History Fexofenadine/Pseudoephedrine 1 tab PO QID 02/27/14 08/11/17 History [Iris-D 24 Hour Tablet] Gabapentin [Neurontin] 1,200 mg PO TID 02/27/14 08/11/17 History Glucosamine Sulfate 1,500 mg PO DAILY 02/27/14 08/11/17 History HYDROcodone/APAP 10-325MG [[place] 1 tab PO DAILY PRN 02/27/14 08/11/17 History 10-325] Insulin NPH Hum/Reg Insulin Hm 40 unit SQ TID-W/MEALS 02/27/14 08/11/17 History [NovoLIN 70-30 100 UNIT/ML VIAL] Lansoprazole [Prevacid] 15 mg PO HS 02/27/14 08/11/17 History Multivitamins, Thera [Multivitamin] 1 tab PO DAILY 02/27/14 08/11/17 History Pilocarpine HCl [Salagen] 7.5 mg PO TID 02/27/14 08/11/17 History predniSONE 4 mg PO QAM 02/27/14 08/11/17 History Gabapentin 1,600 mg PO HS 03/09/16 08/11/17 History Moexipril HCl [Univasc] 15 mg PO QAM 03/09/16 08/11/17 History hydrOXYzine HCL [Atarax] 50 mg PO HS 04/12/16 08/11/17 History Folic Acid 1 mg PO DAILY 08/13/16 08/11/17 History Adalimumab [Humira Pen] 40 mg SQ WE 10/17/16 08/11/17 History Acetaminophen [Tylenol Arthritis] 650 mg PO Q6H PRN 08/11/17 08/11/17 History Aspirin 325 mg PO DAILY 08/11/17 08/11/17 History Atorvastatin [Lipitor] 40 mg PO HS 08/11/17 08/11/17 History Latanoprost [Xalatan 0.005%] 1 drop BOTH EYES HS 08/11/17 08/11/17 History Levothyroxine Sodium [Synthroid] 224 mcg PO DAILY 08/11/17 08/11/17 History Methotrexate Sodium [Methotrexate] 10 mg PO WE 08/11/17 08/11/17 History Pilocarpine HCl [Salagen] 7.5 mg PO TID 08/11/17 08/11/17 History metFORMIN HCL [Glucophage] 1,000 mg PO AC-BID 08/11/17 08/11/17 History traMADol HCL [Ultram] 50 mg PO Q6HR PRN 08/11/17 08/11/17 History Allergies Allergy/AdvReac Type Severity Reaction Status Date / Time adhesive Allergy Rash/Hives Verified 08/11/17 16:17 cephalexin [From Keflex] Allergy Rash/Hives Verified 08/11/17 16:17 grass pollen Allergy Unknown Verified 08/11/17 16:17 mold Allergy Unknown Verified 08/11/17 16:17 Sulfa (Sulfonamide Allergy Rash/Hives Verified 08/11/17 16:17 Antibiotics) yeast, dried Allergy Unknown Verified 08/11/17 16:17 newspaper ink Allergy Unknown Uncoded 08/11/17 16:17 Physical Exam Vitals: Vital Signs Temp Pulse Pulse Resp BP BP Pulse Ox 08/12/17 08:00 97.6 F 79 16 125/62 94 L 08/12/17 03:20 97.6 F 88 18 121/62 97 08/12/17 00:00 96.9 F L 88 18 125/72 92 L 08/11/17 20:09 97.0 F L 128 H 18 135/68 93 L 08/11/17 19:30 97.0 F L 128 H 18 135/68 93 L 08/11/17 18:39 127 H 18 177/94 95 08/11/17 17:54 110 H 20 148/82 95 08/11/17 16:56 125 H 20 171/87 94 L 08/11/17 15:54 97.7 F 103 H 22 109/85 95 Intake and Output 08/11/17 08/12/17 08/12/17 22:59 06:59 14:59 Intake Total 138.514 Balance 138.514 Intake: Intake, IV Titration 138.514 Amount Heparin Sodium,Porcine/ 138.514 D5w Pmx 25,000 unit In Dextrose/Water 1 500ml. bag @ 7.5 UNITS/KG/HR 19. 93 mls/hr IV .Q24H [facility] Rx #:[id number] Other: # Voids 2 Weight 132.903 kg 134.4 kg PHYSICAL EXAMINATION: GENERAL: The patient is alert and oriented x3, not in any acute distress. Well developed, well nourished. HEENT: Pupils are round and equally reacting to light. EOMI. No scleral icterus. No conjunctival pallor. Normocephalic, atraumatic. No pharyngeal erythema. No thyromegaly. CARDIOVASCULAR: S1 and S2 present. No murmurs, rubs, or gallops. There is a minimally elevated JVD, still remains tachycardic irregularly irregular rhythm PULMONARY: Chest is clear to auscultation, no wheezing or crackles. ABDOMEN: Soft, nontender, nondistended, normoactive bowel sounds. No palpable organomegaly. MUSCULOSKELETAL: No joint swelling or deformity. EXTREMITIES: No cyanosis, clubbing, or pedal edema. NEUROLOGICAL: Gross neurological examination did not reveal any focal deficits. SKIN: No rashes. Results CBC & Chem 7: 08/12/17 04:10 08/11/17 16:22 Labs: Abnormal Lab Results - Last 24 Hours (Table) 08/11/17 08/11/17 08/11/17 Range/Units 16:22 16:22 16:22 RDW 16.0 H (11.5-15.5) % APTT (22.0-30.0) sec D-Dimer (<0.60) mg/L FEU Glucose 127 H (74-99) mg/dL POC Glucose (mg/dL) (75-99) mg/dL Hemoglobin A1c (4.0-6.0) % Total Creatine Kinase 22 L (30-135) U/L Troponin I (0.000-0.034) ng/mL 08/11/17 08/11/17 08/11/17 Range/Units 16:22 16:22 20:40 RDW (11.5-15.5) % APTT (22.0-30.0) sec D-Dimer 1.61 H (<0.60) mg/L FEU Glucose (74-99) mg/dL POC Glucose (mg/dL) 215 H (75-99) mg/dL Hemoglobin A1c 7.1 H (4.0-6.0) % Total Creatine Kinase (30-135) U/L Troponin I (0.000-0.034) ng/mL 08/11/17 08/12/17 08/12/17 Range/Units 22:10 04:10 05:25 RDW (11.5-15.5) % APTT (22.0-30.0) sec D-Dimer (<0.60) mg/L FEU Glucose (74-99) mg/dL POC Glucose (mg/dL) 169 H (75-99) mg/dL Hemoglobin A1c (4.0-6.0) % Total Creatine Kinase 26 L 22 L (30-135) U/L Troponin I 0.039 H* (0.000-0.034) ng/mL 08/12/17 08/12/17 08/12/17 Range/Units 05:28 10:10 12:11 RDW (11.5-15.5) % APTT 37.2 H (22.0-30.0) sec D-Dimer (<0.60) mg/L FEU Glucose (74-99) mg/dL POC Glucose (mg/dL) 166 H 167 H (75-99) mg/dL Hemoglobin A1c (4.0-6.0) % Total Creatine Kinase (30-135) U/L Troponin I (0.000-0.034) ng/mL Thrombosis Risk Factor Assmnt - Choose All That Apply Each Factor Represents 1 point: Obesity (BMI >25) Each Risk Factor Represents 3 Points: Age 75 years or older Thrombosis Risk Factor Assessment Total Risk Factor Score: 4 Thrombosis Risk Factor Assessment Level: Moderate Risk Assessment and Plan Plan: -New onset atrial fibrillation: Patient was started on metoprolol presently fairly rate controlled but today complaining of some dizziness. Monitor her one more night continue with anticoagulation possibly of discharge tomorrow if her heart rate remains under control. IV fluids will be discontinued -Bilateral pleural effusions and possible mild pulmonary edema: Secondary to atrial fibrillation, her systolic heart function is essentially within normal limits. Mild pulmonary hypertension. We will give a dose of Lasix. -Hypertension -Type 2 diabetes mellitus, he. To be uncontrolled and elevated with hemoglobin A1c of 7.1 -Hypothyroidism -sjogren's syndrome -Troponin elevation: Secondary to atrial fibrillation For above-mentioned chronic visual problems patient will be resumed and continued on appropriate home medications
[2017-08-12 16:39] LABS: Glucose,Whole Blood 163 mg/dL (75-99)
[2017-08-12] MEDS: ATORVASTATIN 40 MG TAB PO SCH (20:31)
[2017-08-12] MEDS: hydrOXYzine HCL 25 MG TAB PO SCH (20:32)
[2017-08-12] MEDS: LATANOPROST 0.005% OPHTH DROPS 2.5 ML BTL BOTH EYES SCH (20:38)
[2017-08-12 20:59] LABS: Glucose,Whole Blood 153 mg/dL (75-99)
[2017-08-12] MEDS ORDERED: GABAPENTIN 800 MG PO SCH (21:00)
[2017-08-12] MEDS ORDERED: METOPROLOL TARTRATE 50 MG TAB PO STA (22:04)
[2017-08-13] MEDS: traMADol 50 MG TAB PO PRN (00:38)
[2017-08-13] MEDS: HYDROcodone/APAP 10-325MG 1 EACH TAB PO PRN (02:25)
[2017-08-13 05:52] LABS: Glucose,Whole Blood 196 mg/dL (75-99)
[2017-08-13 06:18] LABS: Mean Platelet Volume 6.8; Platelet Count 190 k/uL (150-450)
[2017-08-13] MEDS: CARISOPRODOL 350 MG TAB PO SCH (06:50)
[2017-08-13] MEDS: metFORMIN 500 MG TAB PO SCH (06:51)
[2017-08-13] MEDS: INSULIN ASPART 100 UNIT/ML 1 ML 10 ML VIAL SQ SCH (06:51)
[2017-08-13] MEDS: LEVOTHYROXINE 112 MCG TAB PO SCH (06:51)
[2017-08-13] MEDS: PANTOPRAZOLE 40 MG TABLET PO SCH (06:52)
[2017-08-13 08:43] LABS: Magnesium 1.5 mg/dL (1.6-2.3); Potassium 4.7 mmol/L (3.5-5.1)
[2017-08-13] MEDS ORDERED: ASPIRIN 81 MG PO SCH (09:00)
[2017-08-13] MEDS ORDERED: VERAPAMIL SR 240 MG TABLET.ER PO SCH (09:00)
[2017-08-13] MEDS ORDERED: METOPROLOL TARTRATE 50 MG TAB PO SCH (09:00)
[2017-08-13] MEDS: PILOCARPINE 5 MG TAB PO SCH (10:50)
[2017-08-13] MEDS: MULTIVITAMINS, THERA 1 EACH TAB PO SCH (10:52)
[2017-08-13] MEDS: predniSONE 1 MG TAB PO SCH (10:52)
[2017-08-13] MEDS: FOLIC ACID 1 MG TAB PO SCH (10:53)
[2017-08-13] MEDS: LISINOPRIL 20 MG TAB PO SCH (10:53)
[2017-08-13] MEDS: CALCIUM CARB-VIT D 500MG-200UN 1 EACH TAB PO SCH (10:54)
[2017-08-13] MEDS: APIXABAN 5 MG TAB PO SCH (10:54)
[2017-08-13] MEDS: LORATADINE-PSEUDOEPH 5-120 MG 1 EACH TAB.ER.12H PO SCH (10:54)
[2017-08-13] MEDS: GABAPENTIN 800 MG PO SCH (10:56)
[2017-08-13] MEDS ORDERED: MAGNESIUM SULFATE-D5W PMX 1 GM in DEXTROSE/WATER 1 100ML.BAG IVPB SCH (11:00)
--- NOTE | 2017-08-13 11:03 | XR ---
EXAMINATION TYPE: XR chest 1V DATE OF EXAM: 08/13/2017 COMPARISON: 08/11/2017 HISTORY: Shortness of breath TECHNIQUE: Single frontal view of the chest is obtained. FINDINGS: Mediastinum is widened. Postsurgical change overlying the cervical spine. Interstitial pro minence and cardiomegaly noted and there are subsegmental changes at both lung bases with small effus ion. IMPRESSION: 1. Correlate for mild venous congestion with small left effusion. 2. Mediastinal and hilar widening compatible with the recent CT scans suggestive of adenopathy.
[2017-08-13 11:58] LABS: Glucose,Whole Blood 168 mg/dL (75-99)
--- NOTE | 2017-08-13 12:15 | PN ---
PROGRESS NOTE Rosalva is lying in bed and she states she is not feeling well and she is not tolerating her beta blockers. She does not look to be in any respiratory distress. She denies any chest discomfort. She just describes and she states the beta blockers are not making her feel good. EXAMINATION: She is afebrile, 97.8 degrees Fahrenheit, pulse rate in the 90s, blood pressure 134/67 mmHg. Head and neck examination is normal. She is obese. Breath sounds are reduced bilaterally. Heart sounds are irregular. IMPRESSION: Atrial fibrillation with rapid ventricular response. SUGGEST: Stop metoprolol. Start verapamil 240 mg p.o. daily. Continue anticoagulation. Suggest rate control and anticoagulation and follow up with Dr. Gillette as an outpatient on discharge. MMODL / IJN: [id number] /
[2017-08-13] MEDS ORDERED: FUROSEMIDE 40 MG TAB PO STA (12:29)
--- NOTE | 2017-08-13 12:32 | P.DS ---
Providers Date of admission: 08/11/17 17:56 Attending physician: Arthur Doyle Consults: 08/11/17 17:55 Consult Physician Urgent Consulting Provider: Levi Tolentino Consult Reason/Comments: afib Do you want consulting provider notified?: Yes Primary care physician: Nicholas Hart [facility] Course: 71-year-old admitted secondary to new onset atrial fibrillation patient had normal ejection fraction. Patient was cleared for discharge from cardiology perspective patient was started on anticoagulation with Apixaban 5 mg twice a day. Patient believes she is having a flareup of her autoimmune disease, asked her to discuss with her mortgage loan underwriter and patient is able to ambulate without rales and will be discharged today. Patient can use to have bilateral pleural effusions mild pulmonary edema patient will be discharged on oral Lasix. Need for Lasix need to be reevaluated as an outpatient patient pulmonary edema is probably secondary to atrial fibrillation which is rate controlled now. Constitutional: Still complaining of some fatigue PHYSICAL EXAMINATION: GENERAL: The patient is alert and oriented x3, not in any acute distress. Well developed, well nourished. HEENT: Pupils are round and equally reacting to light. EOMI. No scleral icterus. No conjunctival pallor. Normocephalic, atraumatic. No pharyngeal erythema. No thyromegaly. CARDIOVASCULAR: S1 and S2 present. No murmurs, rubs, or gallops. No JVD today PULMONARY: Chest is clear to auscultation, no wheezing or crackles. ABDOMEN: Soft, nontender, nondistended, normoactive bowel sounds. No palpable organomegaly. MUSCULOSKELETAL: No joint swelling or deformity. EXTREMITIES: No cyanosis, clubbing, or pedal edema. NEUROLOGICAL: Gross neurological examination did not reveal any focal deficits. SKIN: No rashes. Assessment and Plan Plan: -New onset atrial fibrillation: Presently rate controlled -Bilateral pleural effusions and possible mild pulmonary edema: Secondary to atrial fibrillation, her systolic heart function is essentially within normal limits. Mild pulmonary hypertension. -Hypertension -Type 2 diabetes mellitus, he. To be uncontrolled and elevated with hemoglobin A1c of 7.1 -Hypothyroidism -sjogren's syndrome -Troponin elevation: Secondary to atrial fibrillation Patient Condition at Discharge: Fair Plan - Discharge Summary Discharge Rx Participant: No New Discharge Prescriptions: New Apixaban [Eliquis] 5 mg PO BID #30 tab Insulin Aspart [NovoLOG (formulary)] See Protocol SQ ACHS #1 vial Nitroglycerin Sl Tabs [Nitrostat] 0.4 mg SUBLINGUAL Q5M PRN #30 tab PRN Reason: Chest Pain Verapamil Sr [Isoptin Sr] 240 mg PO DAILY #30 tablet.er Continue Pilocarpine HCl [Salagen] 7.5 mg PO TID Carisoprodol [Soma] 350 mg PO ACHS HYDROcodone/APAP 10-325MG [[place] 10-325] 1 tab PO DAILY PRN PRN Reason: Pain Gabapentin [Neurontin] 1,200 mg PO TID Multivitamins, Thera [Multivitamin (formulary)] 1 tab PO DAILY Glucosamine Sulfate 1,500 mg PO DAILY Lansoprazole [Prevacid] 15 mg PO HS Clotrimazole Cream [Lotrimin Cream] 1 applic TOPICAL DAILY PRN PRN Reason: Rash Calcium Carbonate/Vitamin D3 [Calcium 600-Vit D3 400 Tablet] 1 tab PO BID predniSONE 4 mg PO QAM Moexipril HCl [Univasc] 15 mg PO QAM Gabapentin 1,600 mg PO HS hydrOXYzine HCL [Atarax] 50 mg PO HS Folic Acid 1 mg PO DAILY Adalimumab [Humira Pen] 40 mg SQ WE Acetaminophen [Tylenol Arthritis] 650 mg PO Q6H PRN PRN Reason: Pain Aspirin 325 mg PO DAILY Atorvastatin [Lipitor] 40 mg PO HS Latanoprost [Xalatan 0.005%] 1 drop BOTH EYES HS Levothyroxine Sodium [Synthroid] 224 mcg PO DAILY metFORMIN HCL [Glucophage] 1,000 mg PO AC-BID Methotrexate Sodium [Methotrexate] 10 mg PO WE traMADol HCL [Ultram] 50 mg PO Q6HR PRN PRN Reason: Pain Pilocarpine HCl [Salagen] 7.5 mg PO TID Discontinued Fexofenadine/Pseudoephedrine [Iris-D 24 Hour Tablet] 1 tab PO QID Insulin NPH Hum/Reg Insulin Hm [NovoLIN 70-30 100 UNIT/ML VIAL] 40 unit SQ TID-W/MEALS Discharge Medication List Calcium Carbonate/Vitamin D3 [Calcium 600-Vit D3 400 Tablet] 1 tab PO BID [History] Carisoprodol [Soma] 350 mg PO ACHS 02/27/14 [History] Clotrimazole Cream [Lotrimin Cream] 1 applic TOPICAL DAILY PRN 02/27/14 [History ] Gabapentin [Neurontin] 1,200 mg PO TID 02/27/14 [History] Glucosamine Sulfate 1,500 mg PO DAILY 02/27/14 [History] HYDROcodone/APAP 10-325MG [[place] 10-325] 1 tab PO DAILY PRN 02/27/14 [History] Lansoprazole [Prevacid] 15 mg PO HS 02/27/14 [History] Multivitamins, Thera [Multivitamin (formulary)] 1 tab PO DAILY 02/27/14 [History ] Pilocarpine HCl [Salagen] 7.5 mg PO TID 02/27/14 [History] predniSONE 4 mg PO QAM 02/27/14 [History] Gabapentin 1,600 mg PO HS 03/09/16 [History] Moexipril HCl [Univasc] 15 mg PO QAM 03/09/16 [History] hydrOXYzine HCL [Atarax] 50 mg PO HS 04/12/16 [History] Folic Acid 1 mg PO DAILY 08/13/16 [History] Adalimumab [Humira Pen] 40 mg SQ WE 10/17/16 [History] Acetaminophen [Tylenol Arthritis] 650 mg PO Q6H PRN 08/11/17 [History] Aspirin 325 mg PO DAILY 08/11/17 [History] Atorvastatin [Lipitor] 40 mg PO HS 08/11/17 [History] Latanoprost [Xalatan 0.005%] 1 drop BOTH EYES HS 08/11/17 [History] Levothyroxine Sodium [Synthroid] 224 mcg PO DAILY 08/11/17 [History] Methotrexate Sodium [Methotrexate] 10 mg PO WE 08/11/17 [History] Pilocarpine HCl [Salagen] 7.5 mg PO TID 08/11/17 [History] metFORMIN HCL [Glucophage] 1,000 mg PO AC-BID 08/11/17 [History] traMADol HCL [Ultram] 50 mg PO Q6HR PRN 08/11/17 [History] Apixaban [Eliquis] 5 mg PO BID #30 tab 08/13/17 [Rx] Insulin Aspart [NovoLOG (formulary)] See Protocol SQ ACHS #1 vial 08/13/17 [Rx] Nitroglycerin Sl Tabs [Nitrostat] 0.4 mg SUBLINGUAL Q5M PRN #30 tab 08/13/17 [Rx ] Verapamil Sr [Isoptin Sr] 240 mg PO DAILY #30 tablet.er 08/13/17 [Rx] Follow up Appointment(s)/Referral(s): Nicholas Hart MD [Primary Care Provider] - 3 Days (Please call office when open on Monday) Patient Instructions/Handouts: A-fib (Atrial Fibrillation) (DC) Discharge Disposition: HOME SELF-CARE
[2017-08-13 12:36] VITALS: BP 137/81; PULSE 75; RESP 16; TEMP 97.9
[2017-08-16] MEDS ORDERED: METHOTREXATE SODIUM 2.5 MG TAB PO SCH (09:00)
[2017-08-16] MEDS ORDERED: ADALIMUMAB 80 MG/1.6 ML KIT SQ SCH (20:19)
== END 2017-08-13 15:09 | disposition home or self-care (01) | DRG 309 ==
LOC: EC 15:41 → 6SEL 17:56
PROVIDERS: ADMIT Hospitalist; ATTEND Hospitalist
DX: I48.91 Unspecified atrial fibrillation (principal); J90 Pleural effusion, not elsewhere classified; J81.1 Chronic pulmonary edema; M35.00 Sjogren syndrome, unspecified; Z79.4 Long term (current) use of insulin; Z79.82 Long term (current) use of aspirin; Z79.899 Other long term (current) drug therapy; Z82.3 Family history of stroke; Z85.820 Personal history of malignant melanoma of skin; M05.10 Rheumatoid lung disease with rheumatoid arthritis of unspecified site; Z87.891 Personal history of nicotine dependence; Z96.1 Presence of intraocular lens; Z98.42 Cataract extraction status, left eye; Z98.41 Cataract extraction status, right eye; E03.9 Hypothyroidism, unspecified; E11.65 Type 2 diabetes mellitus with hyperglycemia; Z68.37 Body mass index [BMI] 37.0-37.9, adult; E78.5 Hyperlipidemia, unspecified; I10 Essential (primary) hypertension; I27.20 Pulmonary hypertension, unspecified; Z87.440 Personal history of urinary (tract) infections; Z91.81 History of falling; Z79.52 Long term (current) use of systemic steroids; R74.8 Abnormal levels of other serum enzymes; Z79.890 Hormone replacement therapy; Z96.642 Presence of left artificial hip joint; Z80.9 Family history of malignant neoplasm, unspecified; E66.01 Morbid (severe) obesity due to excess calories; M48.00 Spinal stenosis, site unspecified
CPT/HCPCS: 36415; 71045; 71046; 71275; 80053; 80061; 82550; 82553; 83036; 83735; 83880; 84100; 84132; 84443; 84484; 85025; 85049; 85379; 85610; 85730; 93005; 93306; 96361; 96365; 96368; 96376; 99285

== ENCOUNTER → 2017-08-24 | Outpatient (CLI) | payer MEDICARE ==
[~2017-08-24] MED LIST: REGADENOSON 0.4 MG/5 ML SYRINGE IV ONE
--- NOTE | 2017-08-24 11:54 | NM ---
EXAMINATION TYPE: NM stress lexiscan cardiolite DATE OF EXAM: 08/24/2017 COMPARISON: NONE HISTORY: 76-year-old female with atrial fibrillation, difficulty in breathing, palpitations, hyperten gregory, diabetes, hypercholesterolemia. TECHNIQUE: After the intravenous administration of 10.68 mCi Tc 99m Sestamibi - Cardiolite resting S PECT images acquired 50 minutes post injection. The patient received 0.4mg Lexiscan, 28 mCi Tc 99m Sestamibi - Stress images obtained 35 minutes post injection FINDINGS: Review of stress and rest SPECT images demonstrates a few moderate-sized fixed perfusion defect along the mid anterior wall. There is mild left ventricular chamber enlargement. Gated analysis shows some hypokinesis along the anterior wall with an estimated left ventricular ejection fraction of 43 %. T ID calculated at 1.09, within normal limits. IMPRESSION: 1. 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 Correlate for possible underlying ischemic c ardiomyopathy. 2. No convincing evidence of inducible ischemia on this study.
--- NOTE | 2017-08-24 14:48 | EST ---
EXERCISE STRESS AGE: 76 SEX: F HT: 6 foot 3 WT: 292 PROTOCOL: Lexiscan HEART RATE REST: 131 BLOOD PRESSURE REST: 124/74 MAXIMUM HEART RATE ACHIEVED: 135 MAXIMUM BLOOD PRESSURE: 127/62 INDICATIONS: Atrial fibrillation. CLINICAL INFORMATION: Baseline EKG revealed atrial fibrillation with variable rate. The patient was administered Lexiscan as per protocol. Heart rate was around 120 beats per minute. Blood pressure was I 24/70. EKG remained inconclusive. By EKG criteria, this is an inconclusive Lexiscan stress test because of resting EKG changes. The nuclear scan results which are more pertinent, will be reported by the radiologist. MMODL / IJN: [id number] /
== END | disposition home or self-care (01) ==
LOC: RADNMMAIN 07:49
PROVIDERS: ATTEND Internal Medicine Cardiovascular Disease
DX: I48.91 Unspecified atrial fibrillation (principal); R94.39 Abnormal result of other cardiovascular function study; Z88.2 Allergy status to sulfonamides
CPT/HCPCS: 93017; 78452; A9500; J2785

== ENCOUNTER 2017-08-26 13:43 | Inpatient (IN) | payer MEDICARE ==
--- NOTE | 2017-08-26 14:32 | ED ---
SOB HPI - General Chief Complaint: Shortness of Breath Stated Complaint: SOB Time Seen by Provider: 08/26/17 14:07 Source: patient Mode of arrival: wheelchair Limitations: no limitations - History of Present Illness Initial Comments: Patient is a 76-year-old female presenting for shortness of breath. She states that 3 weeks ago, she was admitted for shortness of breath for approximately 3 days and diagnosed with atrial fibrillation. She was discharged and started come in today because last night she was having shortness of breath and worsening when she lay flat. She denies any cough or chest pain. She also denies any fevers or chills but admits to some nausea that started after she started taking Lasix. She also denies any vomiting or diarrhea. Additionally, she admits to taking Lasix that she was put on for the atrial fibrillation. She is unsure which medications she was started on at this last hospitalization. - Related Data Home Medications Medication Instructions Recorded Confirmed Calcium Carbonate/Vitamin D3 1 tab PO BID 02/27/14 08/11/17 [Calcium 600-Vit D3 400 Tablet] Carisoprodol [Soma] 350 mg PO ACHS 02/27/14 08/11/17 Clotrimazole Cream [Lotrimin Cream] 1 applic TOPICAL DAILY PRN 02/27/14 08/11/17 Gabapentin [Neurontin] 1,200 mg PO TID 02/27/14 08/11/17 Glucosamine Sulfate 1,500 mg PO DAILY 02/27/14 08/11/17 HYDROcodone/APAP 10-325MG [[place] 1 tab PO DAILY PRN 02/27/14 08/11/17 10-325] Lansoprazole [Prevacid] 15 mg PO HS 02/27/14 08/11/17 Multivitamins, Thera [Multivitamin 1 tab PO DAILY 02/27/14 08/11/17 (formulary)] Pilocarpine HCl [Salagen] 7.5 mg PO TID 02/27/14 08/11/17 predniSONE 4 mg PO QAM 02/27/14 08/11/17 Gabapentin 1,600 mg PO HS 03/09/16 08/11/17 Moexipril HCl [Univasc] 15 mg PO QAM 03/09/16 08/11/17 hydrOXYzine HCL [Atarax] 50 mg PO HS 04/12/16 08/11/17 Folic Acid 1 mg PO DAILY 08/13/16 08/11/17 Adalimumab [Humira Pen] 40 mg SQ WE 10/17/16 08/11/17 Acetaminophen [Tylenol Arthritis] 650 mg PO Q6H PRN 08/11/17 08/11/17 Aspirin 325 mg PO DAILY 08/11/17 08/11/17 Atorvastatin [Lipitor] 40 mg PO HS 08/11/17 08/11/17 Latanoprost [Xalatan 0.005%] 1 drop BOTH EYES HS 08/11/17 08/11/17 Levothyroxine Sodium [Synthroid] 224 mcg PO DAILY 08/11/17 08/11/17 Methotrexate Sodium [Methotrexate] 10 mg PO WE 08/11/17 08/11/17 Pilocarpine HCl [Salagen] 7.5 mg PO TID 08/11/17 08/11/17 metFORMIN HCL [Glucophage] 1,000 mg PO AC-BID 08/11/17 08/11/17 traMADol HCL [Ultram] 50 mg PO Q6HR PRN 08/11/17 08/11/17 Previous Rx's Medication Instructions Recorded Apixaban [Eliquis] 5 mg PO BID #30 tab 08/13/17 Furosemide [Lasix] 40 mg PO DAILY #30 tablet 08/13/17 Insulin Aspart [NovoLOG See Protocol SQ ACHS #1 vial 08/13/17 (formulary)] Nitroglycerin Sl Tabs [Nitrostat] 0.4 mg SUBLINGUAL Q5M PRN #30 tab 08/13/17 Verapamil Sr [Isoptin Sr] 240 mg PO DAILY #30 tablet.er 08/13/17 Allergies Allergy/AdvReac Type Severity Reaction Status Date / Time adhesive Allergy Rash/Hives Verified 08/26/17 14:00 cephalexin [From Keflex] Allergy Rash/Hives Verified 08/26/17 14:00 grass pollen Allergy Unknown Verified 08/26/17 14:00 mold Allergy Unknown Verified 08/26/17 14:00 Sulfa (Sulfonamide Allergy Rash/Hives Verified 08/26/17 14:00 Antibiotics) yeast, dried Allergy Unknown Verified 08/26/17 14:00 newspaper ink Allergy Unknown Uncoded 08/26/17 14:00 Review of Systems ROS Statement: Those systems with pertinent positive or pertinent negative responses have been documented in the HPI. Constitutional: Negative for chills, fatigue and fever. HENT: Negative for congestion. Respiratory: Negative for chest tightness, and wheezing. Negative for cough. Positive for shortness of breath Cardiovascular: Negative for chest pain and palpitations. Negative for leg swelling Gastrointestinal: Negative for abdominal pain. Negative for abdominal distention , diarrhea, and vomiting. Positive for nausea Genitourinary: Negative for dysuria. Musculoskeletal: Negative for back pain, neck pain and neck stiffness. Skin: Negative for color change. Neurological: Negative for dizziness, speech difficulty, weakness and light- headedness. Psychiatric/Behavioral: Negative for agitation and confusion. The patient is not nervous/anxious. ROS Other: All systems not noted in ROS Statement are negative. Past Medical History Past Medical History: Atrial Fibrillation, Cancer, Diabetes Mellitus, Hyperlipidemia, Hypertension, Musculoskeletal Disorder, Neurologic Disorder, Osteoarthritis (OA), Renal Disease, Skin Disorder, Thyroid Disorder Additional Past Medical History / Comment(s): IDDM type II, spinal stenosis, Reynauds, neurologic sjogrens BALANCE ISSUES, SINUS INFECTIONS, HAS HAD DOUBLE VISION ALL HER LIFE-when looks certain directions, hypothyroidism, acute kidney failure psoriasis, UTI s, melanoma skin cancer lt arm, bilateral elbow bursitis with MRSA and I&Ds/antibiotics. History of Any Multi-Drug Resistant Organisms: MRSA Date of last positivie culture/infection: 02/27/14 MDRO Source:: Sputum Past Surgical History: Back Surgery, Breast Surgery, Joint Replacement, Orthopedic Surgery Additional Past Surgical History / Comment(s): Bilateral cataracts with lens implants, arthroscopies to lt wrist, gualberto knees, gualberto ankles, gualberto hips, lt hip replacment and redone, L/R shoulder sxs, rt breast bx-benign, egd/colonoscopy, skin cancer removal L arm. Past Anesthesia/Blood Transfusion Reactions: No Reported Reaction Past Psychological History: No Psychological Hx Reported Smoking Status: Former smoker Past Alcohol Use History: None Reported Past Drug Use History: None Reported - Past Family History Mother Family Medical History: CVA/TIA Additional Family Medical History / Comment(s): RUPTURED BOWEL Father Family Medical History: Cancer, Pneumonia Additional Family Medical History / Comment(s): ASPIRATIVE PNA Sister(s) Additional Family Medical History / Comment(s): at age 34 with lupus General Exam - General Exam Comments Initial Comments: Constitutional: Pt is oriented to person, place, and time. Pt appears well- developed and well-nourished. No distress. HENT: Head: Normocephalic and atraumatic. Eyes: EOM are normal. Neck: Normal range of motion. Neck supple. Cardiovascular: Irregularly irregular and tachycardic, S1 normal, S2 normal and normal heart sounds. Exam reveals no gallop and no friction rub. No murmur heard. Pulmonary/Chest: Effort normal and breath sounds normal. No tachypnea and no bradypnea. No respiratory distress. No wheezes or rales noted. Abdominal: Soft. Bowel sounds are normal. Pt exhibits no shifting dullness, no distension, no pulsatile liver, no fluid wave, no abdominal bruit and no ascites. There is no tenderness. There is no rigidity, no rebound, no guarding, no tenderness at McBurney's point and negative Jerry's sign. Musculoskeletal: Normal range of motion. Neurological: Pt is alert and oriented to person, place, and time. No cranial nerve deficit. Skin: Skin is warm and dry. No rash noted. Pt is not diaphoretic. No erythema. No pallor. Psychiatric: Pt has a normal mood and affect. Pt behavior is normal. Thought content normal. Limitations: no limitations Course Vital Signs 08/26/17 08/26/17 13:57 15:29 Temperature 98.3 F Pulse Rate 78 122 H Respiratory 18 16 Rate Blood Pressure 151/77 110/76 O2 Sat by Pulse 97 94 L Oximetry Medical Decision Making - Medical Decision Making Laboratory studies showed that there is no significant leukocytosis and there is no changes to renal function. However, BNP appears to be trending upwards and now is close to 1500 from last recorded value of 1000. Additionally, troponin was negative and chest x-ray showed no evidence of acute pathology. However, the patient was in atrial fibrillation with RVR and therefore she had to be started on Cardizem bolus and infusion. She was also given 40 mg of Lasix as well as aspirin and noted to be chest pain-free at time of disposition.Explained all labs and diagnostic test results and that we will admit patient to hospital. Pt is agreeable to plan and case has been discussed with Dr. Agudelo and they agree to accept the pt. - Lab Data Result diagrams: 08/26/17 14:20 08/26/17 14:20 Lab Results 08/26/17 08/26/17 08/26/17 Range/Units 14:20 14:20 14:20 WBC 7.5 (3.8-10.6) k/uL RBC 4.08 (3.80-5.40) m/uL Hgb 12.5 (11.4-16.0) gm/dL Hct 38.8 (34.0-46.0) % MCV 95.2 (80.0-100.0) fL MCH 30.7 (25.0-35.0) pg MCHC 32.2 (31.0-37.0) g/dL RDW 16.8 H (11.5-15.5) % Plt Count 256 (150-450) k/uL Neutrophils % 60 % Lymphocytes % 29 % Monocytes % 4 % Eosinophils % 6 % Basophils % 0 % Neutrophils # 4.5 (1.3-7.7) k/uL Lymphocytes # 2.2 (1.0-4.8) k/uL Monocytes # 0.3 (0-1.0) k/uL Eosinophils # 0.4 (0-0.7) k/uL Basophils # 0.0 (0-0.2) k/uL Hypochromasia Slight Anisocytosis Slight PT (9.0-12.0) sec INR (<1.2) APTT (22.0-30.0) sec Sodium 138 (137-145) mmol/L Potassium 4.4 (3.5-5.1) mmol/L Chloride 100 (98-107) mmol/L Carbon Dioxide 25 (22-30) mmol/L Anion Gap 13 mmol/L BUN 14 (7-17) mg/dL Creatinine 0.50 L (0.52-1.04) mg/dL Est GFR (CKD-EPI)AfAm >90 (>60 ml/min/1.73 sqM) Est GFR (CKD-EPI)NonAf >90 (>60 ml/min/1.73 sqM) Glucose 139 H (74-99) mg/dL Calcium 9.6 (8.4-10.2) mg/dL Magnesium 1.6 (1.6-2.3) mg/dL Total Bilirubin 0.4 (0.2-1.3) mg/dL AST 23 (14-36) U/L ALT 30 (9-52) U/L Alkaline Phosphatase 50 (38-126) U/L Troponin I (0.000-0.034) ng/mL NT-Pro-B Natriuret Pep 1420 pg/mL Total Protein 7.0 (6.3-8.2) g/dL Albumin 4.1 (3.5-5.0) g/dL 08/26/17 08/26/17 Range/Units 14:20 14:20 WBC (3.8-10.6) k/uL RBC (3.80-5.40) m/uL Hgb (11.4-16.0) gm/dL Hct (34.0-46.0) % MCV (80.0-100.0) fL MCH (25.0-35.0) pg MCHC (31.0-37.0) g/dL RDW (11.5-15.5) % Plt Count (150-450) k/uL Neutrophils % % Lymphocytes % % Monocytes % % Eosinophils % % Basophils % % Neutrophils # (1.3-7.7) k/uL Lymphocytes # (1.0-4.8) k/uL Monocytes # (0-1.0) k/uL Eosinophils # (0-0.7) k/uL Basophils # (0-0.2) k/uL Hypochromasia Anisocytosis PT 10.9 (9.0-12.0) sec INR 1.1 (<1.2) APTT 23.5 (22.0-30.0) sec Sodium (137-145) mmol/L Potassium (3.5-5.1) mmol/L Chloride (98-107) mmol/L Carbon Dioxide (22-30) mmol/L Anion Gap mmol/L BUN (7-17) mg/dL Creatinine (0.52-1.04) mg/dL Est GFR (CKD-EPI)AfAm (>60 ml/min/1.73 sqM) Est GFR (CKD-EPI)NonAf (>60 ml/min/1.73 sqM) Glucose (74-99) mg/dL Calcium (8.4-10.2) mg/dL Magnesium (1.6-2.3) mg/dL Total Bilirubin (0.2-1.3) mg/dL AST (14-36) U/L ALT (9-52) U/L Alkaline Phosphatase (38-126) U/L Troponin I 0.021 (0.000-0.034) ng/mL NT-Pro-B Natriuret Pep pg/mL Total Protein (6.3-8.2) g/dL Albumin (3.5-5.0) g/dL - EKG Data EKG Comments: EKG shows atrial fibrillation with RVR with multiple PVCs. Rate measured at 114 , NH interval 200, QRS 106, QTC 427. There is no significant ST depressions or elevations. Disposition Clinical Impression: Congestive heart failure, Atrial fibrillation with RVR Disposition: ADMITTED IP TO THIS HOSP Condition: Good Referrals: Nicholas Hart MD [Primary Care Provider] - 1-2 days Time of Disposition: 16:11 Decision to Admit Reason: Admit from EC
[2017-08-26] MEDS ORDERED: ASPIRIN 81 MG PO STA (14:37)
[2017-08-26] MEDS ORDERED: DILTIAZEM DRIP BOLUS FROM BAG 1 MG SOLN IV ONE (14:46)
[2017-08-26 14:47] LABS: Anisocytosis Slight; Basophils % (A) 0 %; Eosinophils # (A) 0.4 k/uL (0-0.7); Eosinophils % (A) 6 %; HCT 38.8 % (34.0-46.0); HGB 12.5 gm/dL (11.4-16.0); Hypochromasia Slight; Lymphocytes # (A) 2.2 k/uL (1.0-4.8); Lymphocytes % (A) 29 %; MCH 30.7 pg (25.0-35.0); MCHC 32.2 g/dL (31.0-37.0); MCV 95.2 fL (80.0-100.0); Mean Platelet Volume 6.6; Monocytes # (A) 0.3 k/uL (0-1.0); Monocytes % (A) 4 %; Neutrophils # (A) 4.5 k/uL (1.3-7.7); Neutrophils % (A) 60 %; Platelet Count 256 k/uL (150-450); RBC 4.08 m/uL (3.80-5.40); RDW 16.8 % (11.5-15.5); WBC 7.5 k/uL (3.8-10.6)
[2017-08-26 14:56] LABS: INR 1.1 (<1.2); Partial Thromboplastin Time 23.5 sec (22.0-30.0); Prothrombin Time 10.9 sec (9.0-12.0)
[2017-08-26 14:57] LABS: ALT 30 U/L (9-52); AST 23 U/L (14-36); Albumin 4.1 g/dL (3.5-5.0); Alkaline Phosphatase 50 U/L (38-126); Anion Gap 13 mmol/L; Blood Urea Nitrogen 14 mg/dL (7-17); Calcium 9.6 mg/dL (8.4-10.2); Carbon Dioxide 25 mmol/L (22-30); Chloride 100 mmol/L (98-107); Glucose 139 mg/dL (74-99); Magnesium 1.6 mg/dL (1.6-2.3); Potassium 4.4 mmol/L (3.5-5.1); Sodium 138 mmol/L (137-145); Total Bilirubin 0.4 mg/dL (0.2-1.3)
[2017-08-26] MEDS ORDERED: DILTIAZEM 5 MG/ML 5 ML VIAL IV ONE (15:15)
--- NOTE | 2017-08-26 15:27 | XR ---
EXAMINATION TYPE: XR chest 2V DATE OF EXAM: 08/26/2017 COMPARISON: Prior chest x-ray 08/13/2017, 08/17/2017 HISTORY: Difficulty breathing TECHNIQUE: Frontal and lateral views of the chest are obtained. FINDINGS: There is no focal air space opacity, pleural effusion, or pneumothorax seen. The cardiac silhouette size is stable. Mediastinal adenopathy, right hilar adenopathy persists. Central vascular ity is prominent. Postop change noted to the cervical spine. Prominent lung volume may be indicative of underlying COPD. The osseous structures are intact. IMPRESSION: Stable exam, mediastinal and hilar adenopathy.
[2017-08-26] MEDS ORDERED: FUROSEMIDE 10 MG/ML 4 ML VIAL IV STA (15:29)
[2017-08-26] MEDS: DILTIAZEM 50 MG in SODIUM CHLORIDE 0.9% 40 ML IV SCH ×2 (15:48→20:40)
[2017-08-26] MEDS ORDERED: NALOXONE 0.4 MG/ML 1 ML VIAL IV PRN (16:12)
[2017-08-26] MEDS ORDERED: CLOTRIMAZOLE 1% CREAM 15 GM TUBE TOPICAL PRN (17:03)
[2017-08-26] MEDS ORDERED: NITROGLYCERIN SL TABS 0.4 MG TAB SUBLINGUAL PRN (17:03)
--- NOTE | 2017-08-26 17:23 | P.HPIM ---
History of Present Illness 76-year-old female came in with the comments of shortness of breath orthopnea and denied any paroxysmal nocturnal dyspnea has history of atrial seen by me and discharged by me about 3 weeks ago well-known patient to me patient does have history Sjogren's syndrome. Does have paratracheal lymphadenopathy during her last hospitalization as well patient had a CAT scan of the time. Patient is following up with pulmonology as an outpatient for that. Patient denied any fever chills nausea vomiting diarrhea. Patient had the bilateral pleural effusions during last admission which resolved at this point of time patient is on 40 mg of Lasix had normal ejection fraction the past. Patient takes verapamil 240 mg daily for atrial fibrillation along with anticoagulation. Patient doesn't take aspirin. Anti-correlation will be continued since she took her verapamil today we'll continue with Cardizem that was started in ER. Patient probably can be started back on her verapamil at a higher dose tomorrow and cardiology will evaluate the patient. TSH will be obtained. Review of Systems REVIEW OF SYSTEMS: CONSTITUTIONAL: No fever, no malaise, no fatigue. HEENT: No recent visual problems or hearing problems. Denied any sore throat. CARDIOVASCULAR: No chest pain, no palpitations, no syncope. PULMONARY: no cough, no hemoptysis. GASTROINTESTINAL: No diarrhea, no nausea, no vomiting, no abdominal pain. Normoactive bowel sounds. NEUROLOGICAL: No headaches, no weakness, no numbness. HEMATOLOGICAL: Denies any bleeding or petechiae. GENITOURINARY: Denies any burning micturition, frequency, or urgency. MUSCULOSKELETAL/RHEUMATOLOGICAL: Denies any joint pain, swelling, or any muscle pain. ENDOCRINE: Denies any polyuria or polydipsia. The rest of the 14-point review of systems is negative. Past Medical History Past Medical History: Atrial Fibrillation, Cancer, Diabetes Mellitus, Hyperlipidemia, Hypertension, Musculoskeletal Disorder, Neurologic Disorder, Osteoarthritis (OA), Renal Disease, Skin Disorder, Thyroid Disorder Additional Past Medical History / Comment(s): IDDM type II, spinal stenosis, Reynauds, neurologic sjogrens BALANCE ISSUES, SINUS INFECTIONS, HAS HAD DOUBLE VISION ALL HER LIFE-when looks certain directions, hypothyroidism, acute kidney failure psoriasis, UTI s, melanoma skin cancer lt arm, bilateral elbow bursitis with MRSA and I&Ds/antibiotics. History of Any Multi-Drug Resistant Organisms: MRSA Date of last positivie culture/infection: 02/27/14 MDRO Source:: Sputum Past Surgical History: Back Surgery, Breast Surgery, Joint Replacement, Orthopedic Surgery Additional Past Surgical History / Comment(s): Bilateral cataracts with lens implants, arthroscopies to lt wrist, gualberto knees, gualberto ankles, gualberto hips, lt hip replacment and redone, L/R shoulder sxs, rt breast bx-benign, egd/colonoscopy, skin cancer removal L arm. Past Anesthesia/Blood Transfusion Reactions: No Reported Reaction Past Psychological History: No Psychological Hx Reported Smoking Status: Former smoker Past Alcohol Use History: None Reported Past Drug Use History: None Reported - Past Family History Mother Family Medical History: CVA/TIA Additional Family Medical History / Comment(s): RUPTURED BOWEL Father Family Medical History: Cancer, Pneumonia Additional Family Medical History / Comment(s): ASPIRATIVE PNA Sister(s) Additional Family Medical History / Comment(s): at age 34 with lupus Medications and Allergies Home Medications Medication Instructions Recorded Confirmed Type Calcium Carbonate/Vitamin D3 1 tab PO BID 02/27/14 08/26/17 History [Calcium 600-Vit D3 400 Tablet] Carisoprodol [Soma] 350 mg PO ACHS 02/27/14 08/26/17 History Clotrimazole Cream [Lotrimin Cream] 1 applic TOPICAL DAILY PRN 02/27/14 History Gabapentin [Neurontin] 1,200 mg PO TID 02/27/14 08/26/17 History Glucosamine Sulfate 1,500 mg PO DAILY 02/27/14 08/26/17 History HYDROcodone/APAP 10-325MG [[place] 1 tab PO DAILY PRN 02/27/14 08/26/17 History 10-325] Lansoprazole [Prevacid] 15 mg PO HS 02/27/14 08/26/17 History Multivitamins, Thera [Multivitamin 1 tab PO DAILY 02/27/14 08/26/17 History (formulary)] predniSONE 4 mg PO QAM 02/27/14 08/26/17 History Gabapentin 1,600 mg PO HS 03/09/16 08/26/17 History Moexipril HCl [Univasc] 15 mg PO QAM 03/09/16 08/26/17 History hydrOXYzine HCL [Atarax] 50 mg PO HS 04/12/16 08/26/17 History Folic Acid 1 mg PO DAILY 08/13/16 08/26/17 History Adalimumab [Humira Pen] 40 mg SQ WE 10/17/16 08/26/17 History Acetaminophen [Tylenol Arthritis] 650 mg PO Q6H PRN 08/11/17 08/26/17 History Aspirin 325 mg PO DAILY 08/11/17 08/26/17 History Atorvastatin [Lipitor] 40 mg PO HS 08/11/17 08/26/17 History Latanoprost [Xalatan 0.005%] 1 drop BOTH EYES HS 08/11/17 08/26/17 History Levothyroxine Sodium [Synthroid] 224 mcg PO DAILY 08/11/17 08/26/17 History Methotrexate Sodium [Methotrexate] 10 mg PO WE 08/11/17 08/26/17 History Pilocarpine HCl [Salagen] 7.5 mg PO TID 08/11/17 08/26/17 History metFORMIN HCL [Glucophage] 1,000 mg PO AC-BID 08/11/17 08/26/17 History traMADol HCL [Ultram] 50 mg PO Q6HR PRN 08/11/17 08/26/17 History Apixaban [Eliquis] 5 mg PO BID #30 tab 08/13/17 08/26/17 Rx Furosemide [Lasix] 40 mg PO DAILY #30 tablet 08/13/17 08/26/17 Rx Insulin Aspart [NovoLOG See Protocol SQ ACHS #1 vial 08/13/17 08/26/17 Rx (formulary)] Nitroglycerin Sl Tabs [Nitrostat] 0.4 mg SUBLINGUAL Q5M PRN #30 tab 08/13/17 Rx Verapamil Sr [Isoptin Sr] 240 mg PO DAILY #30 tablet.er 08/13/17 08/26/17 Rx Allergies Allergy/AdvReac Type Severity Reaction Status Date / Time adhesive Allergy Rash/Hives Verified 08/26/17 16:31 cephalexin [From Keflex] Allergy Rash/Hives Verified 08/26/17 16:31 grass pollen Allergy Unknown Verified 08/26/17 16:31 mold Allergy Unknown Verified 08/26/17 16:31 Sulfa (Sulfonamide Allergy Rash/Hives Verified 08/26/17 16:31 Antibiotics) yeast, dried Allergy Unknown Verified 08/26/17 16:31 newspaper ink Allergy Unknown Uncoded 08/26/17 14:00 Physical Exam Vitals: Vital Signs Temp Pulse Resp BP Pulse Ox 08/26/17 16:51 120 H 16 144/79 97 08/26/17 16:16 91 16 131/69 95 08/26/17 15:29 122 H 16 110/76 94 L 08/26/17 13:57 98.3 F 78 18 151/77 97 Intake and Output 08/26/17 08/26/17 08/26/17 06:59 14:59 22:59 Other: Weight 132.449 kg PHYSICAL EXAMINATION: GENERAL: The patient is alert and oriented x3, not in any acute distress. Well developed, well nourished. HEENT: Pupils are round and equally reacting to light. EOMI. No scleral icterus. No conjunctival pallor. Normocephalic, atraumatic. No pharyngeal erythema. No thyromegaly. CARDIOVASCULAR: S1 and S2 present. No murmurs, rubs, or gallops. Irregularly irregular rhythm mildly tachycardic 90s heart rate PULMONARY: Chest is clear to auscultation, no wheezing or crackles. ABDOMEN: Soft, nontender, nondistended, normoactive bowel sounds. No palpable organomegaly. MUSCULOSKELETAL: No joint swelling or deformity. EXTREMITIES: No cyanosis, clubbing, or pedal edema. NEUROLOGICAL: Gross neurological examination did not reveal any focal deficits. SKIN: No rashes. Results CBC & Chem 7: 08/26/17 14:20 08/26/17 14:20 Labs: Abnormal Lab Results - Last 24 Hours (Table) 08/26/17 08/26/17 Range/Units 14:20 14:20 RDW 16.8 H (11.5-15.5) % Creatinine 0.50 L (0.52-1.04) mg/dL Glucose 139 H (74-99) mg/dL Assessment and Plan Plan: -Atrial fibrillation with rapid unclear rate: Further management as mentioned above continue with the Cardizem now patient is on Eliquis which will be continued. -History of Sjogren's syndrome: Continue with her immunosuppressive therapy. -Paratracheal lymphadenopathy: Being evaluated as an outpatient by pulmonology with concerns of lymphoma because of her autoimmune disease -Type 2 diabetes mellitus hold off on oral hypoglycemic agents sliding scale insulin -Hyperlipidemia -Hypothyroidism: We will obtain TSH patient is on high-dose of levothyroxine.
[2017-08-26 18:38] VITALS: BMI 36.5
[2017-08-26] MEDS: CARISOPRODOL 350 MG TAB PO SCH ×2 (19:52→21:41)
[2017-08-26 20:43] LABS: Glucose,Whole Blood 197 mg/dL (75-99)
[2017-08-26] MEDS: traMADol 50 MG TAB PO PRN (21:41)
[2017-08-26] MEDS: INSULIN ASPART 100 UNIT/ML 1 ML 10 ML VIAL SQ SCH (21:42)
[2017-08-26] MEDS: NEURONTIN 800 MG PO SCH (21:43)
[2017-08-26] MEDS: PANTOPRAZOLE 40 MG TABLET PO SCH (21:43)
[2017-08-26] MEDS: ATORVASTATIN 40 MG TAB PO SCH (21:44)
[2017-08-26] MEDS: hydrOXYzine HCL 25 MG TAB PO SCH (21:44)
[2017-08-26] MEDS: PILOCARPINE 5 MG TAB PO SCH (21:44)
[2017-08-26] MEDS: LATANOPROST 0.005% OPHTH DROPS 2.5 ML BTL BOTH EYES SCH (21:44)
[2017-08-26] MEDS: APIXABAN 5 MG TAB PO SCH (21:44)
[2017-08-26] MEDS ORDERED: GABAPENTIN 400 MG CAP PO SCH ×2 (22:00)
[2017-08-27] MEDS: DILTIAZEM 50 MG in SODIUM CHLORIDE 0.9% 40 ML IV SCH ×4 (00:07→15:22)
[2017-08-27] MEDS: HYDROcodone/APAP 10-325MG 1 EACH TAB PO PRN (00:08)
[2017-08-27 06:06] LABS: Glucose,Whole Blood 173 mg/dL (75-99)
[2017-08-27] MEDS: INSULIN ASPART 100 UNIT/ML 1 ML 10 ML VIAL SQ SCH ×4 (06:34→18:28)
[2017-08-27] MEDS: LEVOTHYROXINE 112 MCG TAB PO SCH (06:34)
[2017-08-27] MEDS: CARISOPRODOL 350 MG TAB PO SCH ×4 (06:34→21:26)
[2017-08-27] MEDS: traMADol 50 MG TAB PO PRN ×3 (06:35→18:27)
[2017-08-27] MEDS: NEURONTIN 800 MG PO SCH ×4 (06:37→22:32)
[2017-08-27 06:42] LABS: Anion Gap 14 mmol/L; Blood Urea Nitrogen 14 mg/dL (7-17); Calcium 9.5 mg/dL (8.4-10.2); Carbon Dioxide 29 mmol/L (22-30); Chloride 98 mmol/L (98-107); Glucose 171 mg/dL (74-99); Potassium 4.3 mmol/L (3.5-5.1); Sodium 141 mmol/L (137-145)
[2017-08-27] MEDS: APIXABAN 5 MG TAB PO SCH ×2 (07:52→21:22)
[2017-08-27] MEDS: FUROSEMIDE 40 MG TAB PO SCH (07:52)
[2017-08-27] MEDS: FOLIC ACID 1 MG TAB PO SCH (07:53)
[2017-08-27] MEDS: PILOCARPINE 5 MG TAB PO SCH ×3 (07:53→22:33)
[2017-08-27] MEDS: LISINOPRIL 20 MG TAB PO SCH (07:53)
[2017-08-27] MEDS: predniSONE 1 MG TAB PO SCH (07:54)
[2017-08-27] MEDS ORDERED: VERAPAMIL SR 240 MG TABLET.ER PO SCH ×2 (09:00→12:00)
[2017-08-27] MEDS ORDERED: ASPIRIN 325 MG TAB PO SCH (09:00)
[2017-08-27 11:28] LABS: Glucose,Whole Blood 165 mg/dL (75-99)
--- NOTE | 2017-08-27 11:28 | P.CRDCN ---
History of Present Illness Consult date: 08/27/17 Chief complaint: Shortness of breath History of present illness: This is a pleasant 76-year-old female patient with a past medical history significant for paroxysmal atrial fibrillation, diabetes, hypertension, and dyslipidemia, presented to the hospital complaining of shortness of breath. The patient was admitted to the hospital 2 weeks ago with shortness of breath and she was diagnosed with A. fib with RVR which was of new onset A. fib. Rate controlled strategy was advised and the patient was discharged home on verapamil as well as oral anticoagulation. During her stay, she underwent an echocardiogram which showed normal LV function with moderate MR and mild mitral stenosis. She underwent also a myocardial perfusion imaging stress test and that revealed a moderate area of myocardial infarction involving the anterior wall. There was a concern about severe underlying coronary artery disease at that point. She was in her usual state of health this time until yesterday when she started experiencing shortness of breath again without any chest pain or discomfort, dizziness or lightheadedness, or syncope. In the ER she was found to be in A. fib with RVR. She was admitted to the floor and started on Cardizem and drip. Her oral anticoagulation was resume. Past Medical History Past Medical History: Atrial Fibrillation, Cancer, Diabetes Mellitus, Hyperlipidemia, Hypertension, Musculoskeletal Disorder, Neurologic Disorder, Osteoarthritis (OA), Renal Disease, Skin Disorder, Thyroid Disorder Additional Past Medical History / Comment(s): IDDM type II, spinal stenosis, Reynauds, neurologic sjogrens BALANCE ISSUES, SINUS INFECTIONS, HAS HAD DOUBLE VISION ALL HER LIFE-when looks certain directions, hypothyroidism, acute kidney failure psoriasis, UTI s, melanoma skin cancer lt arm, bilateral elbow bursitis with MRSA and I&Ds/antibiotics. History of Any Multi-Drug Resistant Organisms: MRSA Date of last positivie culture/infection: 02/27/14 MDRO Source:: Sputum Past Surgical History: Back Surgery, Breast Surgery, Joint Replacement, Orthopedic Surgery Additional Past Surgical History / Comment(s): Bilateral cataracts with lens implants, arthroscopies to lt wrist, gualberto knees, gualberto ankles, gualberto hips, lt hip replacment and redone, L/R shoulder sxs, rt breast bx-benign, egd/colonoscopy, skin cancer removal L arm. Past Anesthesia/Blood Transfusion Reactions: No Reported Reaction Past Psychological History: No Psychological Hx Reported Additional Psychological History / Comment(s): Pt resides with her spouse. She is currently wearing a R leg immobilizer. She is also using crutches to ambulate. She is not driving at this time, but was prior to her R foot fracture. No home care. Smoking Status: Former smoker Past Alcohol Use History: None Reported Additional Past Alcohol Use History / Comment(s): Pt started smoking in college and QUIT SMOKING in 1970 Past Drug Use History: None Reported - Past Family History Mother Family Medical History: CVA/TIA Additional Family Medical History / Comment(s): RUPTURED BOWEL Father Family Medical History: Cancer, Pneumonia Additional Family Medical History / Comment(s): ASPIRATIVE PNA Sister(s) Additional Family Medical History / Comment(s): at age 34 with lupus Medications and Allergies Home Medications Medication Instructions Recorded Confirmed Type Calcium Carbonate/Vitamin D3 1 tab PO BID 02/27/14 08/26/17 History [Calcium 600-Vit D3 400 Tablet] Carisoprodol [Soma] 350 mg PO ACHS 02/27/14 08/26/17 History Clotrimazole Cream [Lotrimin Cream] 1 applic TOPICAL DAILY PRN 02/27/14 History Gabapentin [Neurontin] 1,200 mg PO TID 02/27/14 08/26/17 History Glucosamine Sulfate 1,500 mg PO DAILY 02/27/14 08/26/17 History HYDROcodone/APAP 10-325MG [Honaker 1 tab PO DAILY PRN 02/27/14 08/26/17 History 10-325] Lansoprazole [Prevacid] 15 mg PO HS 02/27/14 08/26/17 History Multivitamins, Thera [Multivitamin 1 tab PO DAILY 02/27/14 08/26/17 History (formulary)] predniSONE 4 mg PO QAM 02/27/14 08/26/17 History Gabapentin 1,600 mg PO HS 03/09/16 08/26/17 History Moexipril HCl [Univasc] 15 mg PO QAM 03/09/16 08/26/17 History hydrOXYzine HCL [Atarax] 50 mg PO HS 04/12/16 08/26/17 History Folic Acid 1 mg PO DAILY 08/13/16 08/26/17 History Adalimumab [Humira Pen] 40 mg SQ WE 10/17/16 08/26/17 History Acetaminophen [Tylenol Arthritis] 650 mg PO Q6H PRN 08/11/17 08/26/17 History Aspirin 325 mg PO DAILY 08/11/17 08/26/17 History Atorvastatin [Lipitor] 40 mg PO HS 08/11/17 08/26/17 History Latanoprost [Xalatan 0.005%] 1 drop BOTH EYES HS 08/11/17 08/26/17 History Levothyroxine Sodium [Synthroid] 224 mcg PO DAILY 08/11/17 08/26/17 History Methotrexate Sodium [Methotrexate] 10 mg PO WE 08/11/17 08/26/17 History Pilocarpine HCl [Salagen] 7.5 mg PO TID 08/11/17 08/26/17 History metFORMIN HCL [Glucophage] 1,000 mg PO AC-BID 08/11/17 08/26/17 History traMADol HCL [Ultram] 50 mg PO Q6HR PRN 08/11/17 08/26/17 History Apixaban [Eliquis] 5 mg PO BID #30 tab 08/13/17 08/26/17 Rx Furosemide [Lasix] 40 mg PO DAILY #30 tablet 08/13/17 08/26/17 Rx Insulin Aspart [NovoLOG See Protocol SQ ACHS #1 vial 08/13/17 08/26/17 Rx (formulary)] Nitroglycerin Sl Tabs [Nitrostat] 0.4 mg SUBLINGUAL Q5M PRN #30 tab 08/13/17 Rx Verapamil Sr [Isoptin Sr] 240 mg PO DAILY #30 tablet.er 08/13/17 08/26/17 Rx Allergies Allergy/AdvReac Type Severity Reaction Status Date / Time adhesive Allergy Rash/Hives Verified 08/26/17 16:31 cephalexin [From Keflex] Allergy Rash/Hives Verified 08/26/17 16:31 grass pollen Allergy Unknown Verified 08/26/17 16:31 mold Allergy Unknown Verified 08/26/17 16:31 Sulfa (Sulfonamide Allergy Rash/Hives Verified 08/26/17 16:31 Antibiotics) yeast, dried Allergy Unknown Verified 08/26/17 16:31 newspaper ink Allergy Unknown Uncoded 08/26/17 14:00 Physical Exam Vitals: Vital Signs Temp Pulse Pulse Resp BP BP Pulse Ox 08/27/17 04:00 75 17 146/69 100 08/27/17 00:00 97.7 F 80 17 140/64 94 L 08/26/17 20:00 98.3 F 83 16 133/74 95 08/26/17 18:10 96.2 F L 94 18 141/78 95 08/26/17 17:35 108 H 16 123/67 97 08/26/17 16:51 120 H 16 144/79 97 08/26/17 16:16 91 16 131/69 95 08/26/17 15:29 122 H 16 110/76 94 L 08/26/17 13:57 98.3 F 78 18 151/77 97 Intake and Output 08/26/17 08/27/17 08/27/17 22:59 06:59 14:59 Intake Total 78.667 234.5 480 Balance 78.667 234.5 480 Intake: IV 30 150 0.9 20 100 Diltiazem 50 mg In Sodium 10 50 Chloride 0.9% 40 ml @ 10 MG/HR 10 mls/hr IV .Q5H [facility] Rx#:[id number] Intake, IV Titration 48.667 84.5 Amount Diltiazem 50 mg In Sodium 48.667 84.5 Chloride 0.9% 40 ml @ 10 MG/HR 10 mls/hr IV .Q5H [facility] Rx#:[id number] Oral 480 Other: Voiding Method Toilet Toilet # Voids 1 Weight 132.449 kg 130 kg - Constitutional General appearance: no acute distress - Respiratory Respiratory: bilateral: CTA - Cardiovascular Rhythm: irregularly irregular Heart sounds: normal: S1, S2 Results 08/26/17 14:20 08/27/17 06:13 Cardiac Enzymes 08/26/17 08/26/17 08/26/17 Range/Units 14:20 14:20 20:20 AST 23 (14-36) U/L Troponin I 0.021 0.023 (0.000-0.034) ng/mL Coagulation 08/26/17 Range/Units 14:20 PT 10.9 (9.0-12.0) sec APTT 23.5 (22.0-30.0) sec CBC 08/26/17 Range/Units 14:20 WBC 7.5 (3.8-10.6) k/uL RBC 4.08 (3.80-5.40) m/uL Hgb 12.5 (11.4-16.0) gm/dL Hct 38.8 (34.0-46.0) % Plt Count 256 (150-450) k/uL Comprehensive Metabolic Panel 08/26/17 08/27/17 Range/Units 14:20 06:13 Sodium 138 141 (137-145) mmol/L Potassium 4.4 4.3 (3.5-5.1) mmol/L Chloride 100 98 (98-107) mmol/L Carbon Dioxide 25 29 (22-30) mmol/L BUN 14 14 (7-17) mg/dL Creatinine 0.50 L 0.59 (0.52-1.04) mg/dL Glucose 139 H 171 H (74-99) mg/dL Calcium 9.6 9.5 (8.4-10.2) mg/dL AST 23 (14-36) U/L ALT 30 (9-52) U/L Alkaline Phosphatase 50 (38-126) U/L Total Protein 7.0 (6.3-8.2) g/dL Albumin 4.1 (3.5-5.0) g/dL Current Medications Generic Name Dose Route Start Last Admin Trade Name Freq PRN Reason Stop Dose Admin Hydrocodone Bitart/Acetaminophen 1 each 08/26/17 17:03 08/27/17 00:08 Honaker 10 PO 1 each DAILY PRN Administration Pain Adalimumab 40 mg 08/30/17 12:00 Humira SQ WE [facility] Apixaban 5 mg 08/26/17 21:00 08/27/17 07:52 Eliquis PO 5 mg BID [facility] Administration Atorvastatin Calcium 40 mg 08/26/17 21:00 08/26/17 21:44 Lipitor PO 40 mg HS [facility] Administration Carisoprodol 350 mg 08/26/17 17:30 08/27/17 06:34 Soma PO 350 mg ACHS [facility] Administration Clotrimazole 1 applic 08/26/17 17:03 Lotrimin Cream TOPICAL DAILY PRN Rash Folic Acid 1 mg 08/27/17 12:00 08/27/17 07:53 Folic Acid PO 1 mg 1200 [facility] Administration Furosemide 40 mg 08/27/17 09:00 08/27/17 07:52 Lasix PO 40 mg DAILY [facility] Administration Hydroxyzine HCl 50 mg 08/26/17 21:00 08/26/17 21:44 Atarax PO 50 mg HS [facility] Administration Diltiazem HCl 50 mg/ Sodium 50 mls @ 10 mls/hr 08/26/17 15:30 08/27/17 06:34 Chloride IV 10 mg/hr .Q5H [facility] 10 mls/hr Administration 10 MG/HR Insulin Aspart 0 unit 08/26/17 21:00 08/27/17 06:34 Novolog SQ 2 unit ACHS [facility] Administration Protocol Latanoprost 1 drops 08/26/17 21:00 08/26/17 21:44 Xalatan 0.005% BOTH EYES 1 drops HS [facility] Administration Levothyroxine Sodium 224 mcg 08/27/17 06:30 08/27/17 06:34 Synthroid PO 224 mcg 0630 [facility] Administration Lisinopril 20 mg 08/27/17 09:00 08/27/17 07:53 Zestril PO 20 mg QAM [facility] Administration Methotrexate 10 mg 08/30/17 09:00 Methotrexate PO We@0900 [facility] Metoprolol Tartrate 25 mg 08/27/17 21:00 Lopressor PO BID [facility] Naloxone HCl 0.2 mg 08/26/17 16:12 Narcan IV Q2M PRN Opioid Reversal Nitroglycerin 0.4 mg 08/26/17 17:03 Nitrostat SUBLINGUAL Q5M PRN Chest Pain Patient's Own Med-- 1.5 each 08/26/17 22:00 08/27/17 06:37 Neurontin 800mg Tab PO 1.5 each QID [facility] Administration Pantoprazole Sodium 40 mg 08/26/17 21:00 08/26/17 21:43 Protonix PO 40 mg HS [facility] Administration Pilocarpine HCl 7.5 mg 08/26/17 22:00 08/27/17 07:53 Salagen PO 7.5 mg TID [facility] Administration Prednisone 4 mg 08/27/17 09:00 08/27/17 07:54 PO 4 mg QAM [facility] Administration Tramadol HCl 50 mg 08/26/17 17:03 08/27/17 06:35 Ultram PO 50 mg Q6HR PRN Administration Pain Intake and Output 08/26/17 08/27/17 08/27/17 22:59 06:59 14:59 Intake Total 78.667 234.5 480 Balance 78.667 234.5 480 Intake: IV 30 150 0.9 20 100 Diltiazem 50 mg In Sodium 10 50 Chloride 0.9% 40 ml @ 10 MG/HR 10 mls/hr IV .Q5H [facility] Rx#:[id number] Intake, IV Titration 48.667 84.5 Amount Diltiazem 50 mg In Sodium 48.667 84.5 Chloride 0.9% 40 ml @ 10 MG/HR 10 mls/hr IV .Q5H [facility] Rx#:[id number] Oral 480 Other: Voiding Method Toilet Toilet # Voids 1 Weight 132.449 kg 130 kg 08/26/17 14:20 08/27/17 06:13 Assessment and Plan Assessment: Assessment #1 atrial fibrillation with RVR. #2 diabetes type 2 #3 hypertension #4 morbid obesity Plan #1 continue oral anticoagulation #2 I am going to start the patient on metoprolol and try to wean her from the Cardizem drip #3 she underwent a workup recently including echocardiogram and stress test #4 she does need to have a heart catheterization to rule out any severe underlying coronary artery disease. The stress test suggestive possible severe underlying CAD. Thank you for allowing us participate in her care and we will continue following up with the patient
--- NOTE | 2017-08-27 13:28 | P.PN ---
Subjective Patient is admitted for atrial fibrillation with rapid ventricular rate patient did is fairly controlled now patient is being continued on anticoagulation. Cardiology valid the patient patient is being started on beta kathi and may eventually need a cardiac catheterization as per the recommendation. Calcium channel blockers are being discontinued. Constitutional: Denied any fatigue denied any fever. Cardio vascular: denied any chest pain, palpitations Gastrointestinal denied any nausea vomiting Pulmonary: Denied any shortness of breath cough Neurologic denied any new focal deficits Objective - Vital Signs Vital signs: Vital Signs Temp 96.7 F L 08/27/17 12:00 Pulse 88 08/27/17 12:00 Resp 18 08/27/17 12:00 BP 136/80 08/27/17 12:00 Pulse Ox 95 08/27/17 12:00 Intake & Output 08/26/17 08/27/17 08/27/17 18:59 06:59 18:59 Intake Total 30 283.167 480 Balance 30 283.167 480 Weight 132.449 kg 130 kg Intake: IV 30 150 0.9 20 100 Diltiazem 50 mg In Sodium 10 50 Chloride 0.9% 40 ml @ 10 MG/HR 10 mls/hr IV .Q5H [facility] Rx#:[id number] Intake, IV Titration 133.167 Amount Diltiazem 50 mg In Sodium 133.167 Chloride 0.9% 40 ml @ 10 MG/HR 10 mls/hr IV .Q5H [facility] Rx#:[id number] Oral 480 Other: Voiding Method Toilet Toilet # Voids 1 - Exam PHYSICAL EXAMINATION: GENERAL: The patient is alert and oriented x3, not in any acute distress. Well developed, well nourished. HEENT: Pupils are round and equally reacting to light. EOMI. No scleral icterus. No conjunctival pallor. Normocephalic, atraumatic. No pharyngeal erythema. No thyromegaly. CARDIOVASCULAR: S1 and S2 present. No murmurs, rubs, or gallops. Irregularly irregular rhythm mildly tachycardic 90s heart rate PULMONARY: Chest is clear to auscultation, no wheezing or crackles. ABDOMEN: Soft, nontender, nondistended, normoactive bowel sounds. No palpable organomegaly. MUSCULOSKELETAL: No joint swelling or deformity. EXTREMITIES: No cyanosis, clubbing, or pedal edema. NEUROLOGICAL: Gross neurological examination did not reveal any focal deficits. SKIN: No rashes. - Labs CBC & Chem 7: 08/26/17 14:20 08/27/17 06:13 Labs: Abnormal Lab Results - Last 24 Hours (Table) 08/26/17 08/26/17 08/26/17 Range/Units 14:20 14:20 20:39 RDW 16.8 H (11.5-15.5) % Creatinine 0.50 L (0.52-1.04) mg/dL Glucose 139 H (74-99) mg/dL POC Glucose (mg/dL) 197 H (75-99) mg/dL 08/27/17 08/27/17 08/27/17 Range/Units 06:04 06:13 11:23 RDW (11.5-15.5) % Creatinine (0.52-1.04) mg/dL Glucose 171 H (74-99) mg/dL POC Glucose (mg/dL) 173 H 165 H (75-99) mg/dL Assessment and Plan Plan: -Atrial fibrillation with rapid unclear rate: Patient was started on beta kathi discontinuing calcium channel blockers because of a fixed defect on the myocardial perfusion imaging during her last hospitalization, patient may need cardiac catheterization eventually as per cardiology patient is on Eliquis which will be continued. -History of Sjogren's syndrome: Continue with her immunosuppressive therapy. -Paratracheal lymphadenopathy: Being evaluated as an outpatient by pulmonology with concerns of lymphoma because of her autoimmune disease -Type 2 diabetes mellitus hold off on oral hypoglycemic agents sliding scale insulin -Hyperlipidemia -Hypothyroidism: We will obtain TSH patient is on high-dose of levothyroxine.
[2017-08-27] MEDS: METOPROLOL TARTRATE 25 MG TAB PO SCH ×2 (15:20→21:23)
[2017-08-27 16:50] LABS: Glucose,Whole Blood 192 mg/dL (75-99)
[2017-08-27 20:55] LABS: Glucose,Whole Blood 228 mg/dL (75-99)
[2017-08-27] MEDS ORDERED: METOPROLOL TARTRATE 25 MG TAB PO SCH (21:00)
[2017-08-27] MEDS: hydrOXYzine HCL 25 MG TAB PO SCH (21:20)
[2017-08-27] MEDS: ATORVASTATIN 40 MG TAB PO SCH (21:22)
[2017-08-27] MEDS: PANTOPRAZOLE 40 MG TABLET PO SCH (21:23)
[2017-08-28] MEDS: traMADol 50 MG TAB PO PRN ×4 (00:40→22:45)
[2017-08-28] MEDS: HYDROcodone/APAP 10-325MG 1 EACH TAB PO PRN (04:22)
[2017-08-28] MEDS: LATANOPROST 0.005% OPHTH DROPS 2.5 ML BTL BOTH EYES SCH (06:04)
[2017-08-28 06:10] LABS: Glucose,Whole Blood 280 mg/dL (75-99)
[2017-08-28] MEDS: INSULIN ASPART 100 UNIT/ML 1 ML 10 ML VIAL SQ SCH ×4 (07:09→22:35)
[2017-08-28] MEDS: LEVOTHYROXINE 112 MCG TAB PO SCH (07:09)
[2017-08-28] MEDS: CARISOPRODOL 350 MG TAB PO SCH ×4 (07:11→22:30)
--- NOTE | 2017-08-28 07:26 | P.PN ---
Subjective Progress Note Date: 08/28/17 Principal diagnosis: HR fibrillation rapid ventricular response. This is a continue process on 6-year-old white female who is very well-known to my practice with admission for A. fib with RVR. The patient also has history of recent stress test which shows coronary artery disease. Question need for cardiac catheterization in the future. Appreciate cardiology input. Patient seems asymptomatic today. No sniffing nausea or vomiting. Objective - Vital Signs Vital signs: Vital Signs Temp 97.2 F L 08/28/17 04:00 Pulse 96 08/28/17 04:00 Resp 18 08/28/17 04:00 BP 126/69 08/28/17 04:00 Pulse Ox 94 L 08/28/17 04:00 Intake & Output 08/27/17 08/28/17 08/28/17 18:59 06:59 18:59 Intake Total 1080 Balance 1080 Weight 130.5 kg Intake: Oral 1080 Other: Voiding Method Toilet Toilet # Voids 1 2 - Constitutional General appearance: Present: obese - EENT Eyes: Absent: abnormal pupil - Neck Neck: Absent: lymphadenopathy - Respiratory Respiratory: bilateral: CTA - Cardiovascular Rhythm: regular Heart sounds: normal: S1, S2 Abnormal Heart Sounds: Absent: S3 Gallop - Gastrointestinal General gastrointestinal: Absent: tenderness - Integumentary Integumentary: Absent: rash - Labs CBC & Chem 7: 08/26/17 14:20 08/27/17 06:13 Labs: Abnormal Lab Results - Last 24 Hours (Table) 08/27/17 08/27/17 08/27/17 Range/Units 11:23 16:41 20:54 POC Glucose (mg/dL) 165 H 192 H 228 H (75-99) mg/dL 08/28/17 Range/Units 06:09 POC Glucose (mg/dL) 280 H (75-99) mg/dL Assessment and Plan (1) CAD (coronary artery disease) Current Visit: Yes Status: Acute Code(s): I25.10 - ATHSCL HEART DISEASE OF [place] CORONARY ARTERY W/O ANG PCTRS SNOMED Code(s): 63370839 (2) Atrial fibrillation with RVR Current Visit: Yes Status: Acute Code(s): I48.91 - UNSPECIFIED ATRIAL FIBRILLATION SNOMED Code(s): 956516872317234 (3) Diabetes Current Visit: No Status: Acute Code(s): E11.9 - TYPE 2 DIABETES MELLITUS WITHOUT COMPLICATIONS SNOMED Code(s): 60467600 (4) Generalized weakness Current Visit: No Status: Acute Code(s): R53.1 - WEAKNESS SNOMED Code(s): 35221388 Plan: Continue current regimen of treatment. Oral anticoagulation has been instituted. The patient seems to be improving clinically. We'll continue to follow. Time with Patient: Less than 30
[2017-08-28] MEDS: NEURONTIN 800 MG PO SCH ×4 (08:39→22:37)
[2017-08-28] MEDS: predniSONE 1 MG TAB PO SCH (08:39)
[2017-08-28] MEDS: PILOCARPINE 5 MG TAB PO SCH ×3 (08:40→22:37)
[2017-08-28] MEDS: FUROSEMIDE 40 MG TAB PO SCH (08:41)
[2017-08-28] MEDS: APIXABAN 5 MG TAB PO SCH (08:41)
[2017-08-28] MEDS: METOPROLOL TARTRATE 25 MG TAB PO SCH ×2 (08:41→18:47)
[2017-08-28] MEDS: LISINOPRIL 20 MG TAB PO SCH (08:42)
[2017-08-28] MEDS: FOLIC ACID 1 MG TAB PO SCH (08:42)
[2017-08-28] MEDS ORDERED: ALPRAZolam 0.25 MG TAB PO PRN (10:05)
[2017-08-28] MEDS ORDERED: ALPRAZolam 0.5 MG TAB PO PRN (10:05)
[2017-08-28] MEDS ORDERED: NITROGLYCERIN SL TABS 0.4 MG TAB SUBLINGUAL PRN (10:05)
[2017-08-28] MEDS ORDERED: SODIUM CHLORIDE 0.9% 1,000 ML in EMPTY BAG 1 BAG IV ONE (10:05)
[2017-08-28] MEDS ORDERED: ASPIRIN 325 MG TAB PO STA (10:08)
[2017-08-28] MEDS ORDERED: ATORVASTATIN 80 MG TAB PO STA (10:08)
[2017-08-28 11:57] LABS: Glucose,Whole Blood 188 mg/dL (75-99)
--- NOTE | 2017-08-28 13:03 | P.PN ---
Subjective Progress Note Date: 08/28/17 This is a pleasant 76-year-old female patient with a past medical history significant for paroxysmal atrial fibrillation, diabetes, hypertension, and dyslipidemia, presented to the hospital complaining of shortness of breath.The patient was admitted to the hospital 2 weeks ago with shortness of breath and she was diagnosed with A. fib with RVR which was of new onset A. fib. Rate controlled strategy was advised and the patient was discharged home on verapamil as well as oral anticoagulation. During her stay, she underwent an echocardiogram which showed normal LV function with moderate MR and mild mitral stenosis. She underwent also a myocardial perfusion imaging stress test and that revealed a moderate area of myocardial infarction involving the anterior wall. There was a concern about severe underlying coronary artery disease at that point. In the ER on admission patient was found to be in atrial fibrillation with rapid ventricular response, was admitted to the floor and initiated on Cardizem drip. Cardizem drip was discontinued, patient is currently on beta kathi. Because of the mild abnormality in troponin, as well as the evidence of a prior myocardial infarction on her recent stress test , patient was advised to undergo cardiac catheterization, the risks and the benefits were explained to the patient in detail, this will be performed tomorrow by Dr. Burgess. Objective - Vital Signs Vital signs: Vital Signs Temp 97.0 F L 08/28/17 08:00 Pulse 90 08/28/17 08:00 Resp 18 08/28/17 08:00 BP 120/60 08/28/17 08:00 Pulse Ox 94 L 08/28/17 09:10 Intake & Output 08/27/17 08/28/17 08/28/17 18:59 06:59 18:59 Intake Total 1080 120 Balance 1080 120 Weight 130.5 kg Intake: Oral 1080 120 Other: Voiding Method Toilet Toilet Toilet # Voids 1 2 0 # Bowel Movements 0 - Exam PHYSICAL EXAMINATION: GENERAL: 76-year-old female in no acute distress at the time of my examination. HEENT: Head is atraumatic, normocephalic. Pupils equal, round. Sclera anicteric. Conjunctiva are clear. Mucous membranes of the mouth are moist. Neck is supple. There is no elevated jugular venous pressure.] bruit is heard. HEART EXAMINATION: Heart S1-S2 irregular irregular CHEST EXAMINATION: Lungs are clear to auscultation and precussion. No chest wall tenderness is noted on palpation or with deep breathing. ABDOMEN: Soft, nontender. Bowel sounds are heard. No organomegaly noted. EXTREMITIES: 2+ peripheral pulses with no evidence of peripheral edema and no calf tenderness noted. NEUROLOGIC patient is awake, alert and oriented ?-3. . - Labs CBC & Chem 7: 08/26/17 14:20 08/27/17 06:13 Labs: Abnormal Lab Results - Last 24 Hours (Table) 08/27/17 08/27/17 08/28/17 Range/Units 16:41 20:54 06:09 POC Glucose (mg/dL) 192 H 228 H 280 H (75-99) mg/dL 08/28/17 Range/Units 11:55 POC Glucose (mg/dL) 188 H (75-99) mg/dL Assessment and Plan Plan: Assessment and plan #1 atrial fibrillation with RVR. #2 diabetes type 2 #3 hypertension #4 morbid obesity #5 abnormal troponin Plan From cardiology's perspective, patient has been advised to undergo cardiac catheterization in view of the fact the recent stress test show evidence of a moderate size defect along the mid anterior wall suggesting an old infarct. Ejection fraction documented by stress testing 43% suggesting ischemic cardiomyopathy. The risks and the benefits of the procedure were explained to the patient in detail, we will hold her Eliquis today and she will be scheduled to undergo cardiac catheterization tomorrow with Dr. Kitchen. DNP note has been reviewed, I agree with a documented findings and plan of care. Patient was seen and examined.
[2017-08-28 15:19] LABS: Hemoglobin A1C 6.8 % (4.0-6.0)
[2017-08-28 16:40] LABS: Glucose,Whole Blood 189 mg/dL (75-99)
[2017-08-28 20:47] LABS: Glucose,Whole Blood 241 mg/dL (75-99)
[2017-08-28] MEDS: hydrOXYzine HCL 25 MG TAB PO SCH (22:31)
[2017-08-28] MEDS: PANTOPRAZOLE 40 MG TABLET PO SCH (22:36)
[2017-08-29] MEDS ORDERED: ATORVASTATIN 80 MG TAB PO ONE (05:00)
[2017-08-29] MEDS ORDERED: ASPIRIN 325 MG TAB PO ONE (05:00)
[2017-08-29] MEDS: LATANOPROST 0.005% OPHTH DROPS 2.5 ML BTL BOTH EYES SCH ×2 (05:39→21:37)
[2017-08-29] MEDS: traMADol 50 MG TAB PO PRN ×4 (05:40→23:40)
[2017-08-29] MEDS: LISINOPRIL 20 MG TAB PO SCH (05:45)
[2017-08-29] MEDS: LEVOTHYROXINE 112 MCG TAB PO SCH (05:45)
[2017-08-29] MEDS: NEURONTIN 800 MG PO SCH ×5 (05:46→21:39)
[2017-08-29] MEDS: predniSONE 1 MG TAB PO SCH (05:47)
[2017-08-29] MEDS: PILOCARPINE 5 MG TAB PO SCH ×3 (05:47→21:38)
[2017-08-29] MEDS: METOPROLOL TARTRATE 25 MG TAB PO SCH ×2 (05:47→20:19)
[2017-08-29 05:56] LABS: Glucose,Whole Blood 183 mg/dL (75-99)
[2017-08-29 06:54] LABS: Anisocytosis Slight; HCT 41.6 % (34.0-46.0); HGB 12.8 gm/dL (11.4-16.0); Hypochromasia Moderate; MCH 29.4 pg (25.0-35.0); MCHC 30.9 g/dL (31.0-37.0); Platelet Count 265 k/uL (150-450); RBC 4.37 m/uL (3.80-5.40); RDW 16.1 % (11.5-15.5); WBC 9.5 k/uL (3.8-10.6)
--- NOTE | 2017-08-29 07:05 | P.PN ---
Subjective Principal diagnosis: HR fibrillation rapid ventricular response. The patient essentially 6-year-old white female essentially admitted for H fibrillation and rapid ventricular response with a normal stress testing. Cardiac Physicians pending today. She is asymptomatic at this point from a palpitation perspective. I did take some time to explain the reasoning behind her testing. No significant nausea, vomiting or diarrhea stated Objective - Vital Signs Vital signs: Vital Signs Temp 96.7 F L 08/29/17 04:00 Pulse 87 08/29/17 04:00 Resp 18 08/29/17 04:00 BP 147/76 08/29/17 04:00 Pulse Ox 93 L 08/29/17 04:00 Intake & Output 08/28/17 08/29/17 08/29/17 18:59 06:59 18:59 Intake Total 592 Balance 592 Weight 131 kg Intake: Oral 592 Other: Voiding Method Toilet Toilet # Voids 1 1 # Bowel Movements 0 0 - Constitutional General appearance: Present: obese - EENT Eyes: Absent: abnormal pupil - Respiratory Respiratory: bilateral: CTA - Cardiovascular Rhythm: regular Heart sounds: normal: S1, S2 Abnormal Heart Sounds: Absent: S3 Gallop - Gastrointestinal General gastrointestinal: Present: soft. Absent: tenderness - Integumentary Integumentary: Absent: cyanotic - Neurologic Neurologic: Present: CNII-XII intact - Labs CBC & Chem 7: 08/26/17 14:20 08/27/17 06:13 Labs: Abnormal Lab Results - Last 24 Hours (Table) 08/26/17 08/28/17 08/28/17 Range/Units 14:20 11:55 16:37 POC Glucose (mg/dL) 188 H 189 H (75-99) mg/dL Hemoglobin A1c 6.8 H (4.0-6.0) % 08/28/17 08/29/17 Range/Units 20:45 05:54 POC Glucose (mg/dL) 241 H 183 H (75-99) mg/dL Hemoglobin A1c (4.0-6.0) % Assessment and Plan (1) CAD (coronary artery disease) Current Visit: Yes Status: Acute Code(s): I25.10 - ATHSCL HEART DISEASE OF [place] CORONARY ARTERY W/O ANG PCTRS SNOMED Code(s): 86310674 (2) Atrial fibrillation with RVR Current Visit: Yes Status: Acute Code(s): I48.91 - UNSPECIFIED ATRIAL FIBRILLATION SNOMED Code(s): 043465959799357 (3) Diabetes Current Visit: No Status: Acute Code(s): E11.9 - TYPE 2 DIABETES MELLITUS WITHOUT COMPLICATIONS SNOMED Code(s): 12222932 (4) Generalized weakness Current Visit: No Status: Acute Code(s): R53.1 - WEAKNESS SNOMED Code(s): 13353485 Plan: Element of abnormal stress test with atrial fibrillation. Diabetes-stable with control. Again, await cardiac catheterization. We'll continue follow with appropriate specialty consultation.
[2017-08-29 07:15] LABS: ALT 31 U/L (9-52); AST 23 U/L (14-36); Albumin 4.2 g/dL (3.5-5.0); Alkaline Phosphatase 54 U/L (38-126); Anion Gap 14 mmol/L; Blood Urea Nitrogen 15 mg/dL (7-17); Calcium 9.6 mg/dL (8.4-10.2); Carbon Dioxide 26 mmol/L (22-30); Chloride 99 mmol/L (98-107); Glucose 206 mg/dL (74-99); Potassium 4.5 mmol/L (3.5-5.1); Sodium 139 mmol/L (137-145); Total Bilirubin 0.4 mg/dL (0.2-1.3); Total Protein 7.3 g/dL (6.3-8.2)
[2017-08-29] MEDS: CARISOPRODOL 350 MG TAB PO SCH ×4 (08:04→21:37)
[2017-08-29] MEDS: INSULIN ASPART 100 UNIT/ML 1 ML 10 ML VIAL SQ SCH ×4 (08:04→21:37)
[2017-08-29] MEDS ORDERED: LIDOCAINE 1% INJ 10MG/ML (20 ML MDV) ONE (09:10)
[2017-08-29] MEDS ORDERED: MIDAZOLAM 2 MG/2 ML VIAL ONE (09:10)
[2017-08-29] MEDS: FOLIC ACID 1 MG TAB PO SCH (11:21)
[2017-08-29 11:26] LABS: Glucose,Whole Blood 235 mg/dL (75-99)
[2017-08-29] MEDS: FUROSEMIDE 40 MG TAB PO SCH (13:17)
--- NOTE | 2017-08-29 15:32 | P.PN ---
Subjective Progress Note Date: 08/29/17 This is a pleasant 76-year-old female patient with a past medical history significant for paroxysmal atrial fibrillation, diabetes, hypertension, and dyslipidemia, presented to the hospital complaining of shortness of breath.The patient was admitted to the hospital 2 weeks ago with shortness of breath and she was diagnosed with A. fib with RVR which was of new onset A. fib. Rate controlled strategy was advised and the patient was discharged home on verapamil as well as oral anticoagulation. During her stay, she underwent an echocardiogram which showed normal LV function with moderate MR and mild mitral stenosis. She underwent also a myocardial perfusion imaging stress test and that revealed a moderate area of myocardial infarction involving the anterior wall. There was a concern about severe underlying coronary artery disease at that point. In the ER on admission patient was found to be in atrial fibrillation with rapid ventricular response, was admitted to the floor and initiated on Cardizem drip. Cardizem drip was discontinued, patient is currently on beta kathi. Because of the mild abnormality in troponin, as well as the evidence of a prior myocardial infarction on her recent stress test , patient was advised to undergo cardiac catheterization, the risks and the benefits were explained to the patient in detail. Cardiac catheterization will be performed by Dr. George via radial approach. Objective - Vital Signs Vital signs: Vital Signs Temp 97 F L 08/29/17 08:00 Pulse 76 08/29/17 11:41 Resp 17 08/29/17 15:01 BP 128/61 08/29/17 11:41 Pulse Ox 99 08/29/17 11:41 Intake & Output 08/28/17 08/29/17 08/29/17 18:59 06:59 18:59 Intake Total 592 Balance 592 Weight 131 kg Intake: Oral 592 Other: Voiding Method Toilet Toilet Toilet # Voids 1 1 # Bowel Movements 0 0 - Exam GENERAL: 76-year-old female in no acute distress at the time of my examination. HEENT: Head is atraumatic, normocephalic. Pupils equal, round. Sclera anicteric. Conjunctiva are clear. Mucous membranes of the mouth are moist. Neck is supple. There is no elevated jugular venous pressure. HEART EXAMINATION: Heart S1-S2 irregular irregular, no murmur noted CHEST EXAMINATION: Lungs are clear to auscultation and precussion. No chest wall tenderness is noted on palpation or with deep breathing. ABDOMEN: Soft, nontender. Bowel sounds are heard. No organomegaly noted. EXTREMITIES: 2+ peripheral pulses with evidence of trace peripheral edema and no calf tenderness noted. NEUROLOGIC patient is awake, alert and oriented x3. - Labs CBC & Chem 7: 08/29/17 06:23 08/29/17 06:23 Labs: Abnormal Lab Results - Last 24 Hours (Table) 08/26/17 08/28/17 08/28/17 Range/Units 14:20 16:37 20:45 MCHC (31.0-37.0) g/dL RDW (11.5-15.5) % Glucose (74-99) mg/dL POC Glucose (mg/dL) 189 H 241 H (75-99) mg/dL Hemoglobin A1c 6.8 H (4.0-6.0) % 08/29/17 08/29/17 08/29/17 Range/Units 05:54 06:23 06:23 MCHC 30.9 L (31.0-37.0) g/dL RDW 16.1 H (11.5-15.5) % Glucose 206 H (74-99) mg/dL POC Glucose (mg/dL) 183 H (75-99) mg/dL Hemoglobin A1c (4.0-6.0) % 08/29/17 Range/Units 11:24 MCHC (31.0-37.0) g/dL RDW (11.5-15.5) % Glucose (74-99) mg/dL POC Glucose (mg/dL) 235 H (75-99) mg/dL Hemoglobin A1c (4.0-6.0) % Assessment and Plan Assessment: #1 atrial fibrillation with RVR. #2 diabetes type 2 #3 hypertension #4 morbid obesity #5 abnormal troponin with evidence of old NC noted on recent stress test Plan: From cardiology's perspective, patient has been advised to undergo cardiac catheterization in view of the fact the recent stress test show evidence of a moderate size defect along the mid anterior wall suggesting an old infarct. Ejection fraction documented by stress testing 43% suggesting ischemic cardiomyopathy. The risks and the benefits of the procedure were explained to the patient in detail, we will hold her Eliquis today and she will be scheduled to undergo cardiac catheterization tomorrow with Dr. George. The above dictated assessment and findings were discussed with signing physician. The impression and plan of care have been directed as dictated. Stephanie Zhao, Nurse Practitioner, acting as scribe for signing physician.
[2017-08-29 17:13] LABS: Glucose,Whole Blood 189 mg/dL (75-99)
[2017-08-29] MEDS: PANTOPRAZOLE 40 MG TABLET PO SCH (20:19)
[2017-08-29] MEDS: hydrOXYzine HCL 25 MG TAB PO SCH (20:19)
[2017-08-29 21:00] LABS: Glucose,Whole Blood 194 mg/dL (75-99)
[2017-08-29] MEDS ORDERED: NEURONTIN 800 MG PO SCH (22:00)
[2017-08-29] MEDS ORDERED: METOPROLOL TARTRATE 25 MG TAB PO STA (22:35)
[2017-08-30] MEDS: HYDROcodone/APAP 10-325MG 1 EACH TAB PO PRN ×2 (01:42→16:19)
[2017-08-30 05:37] VITALS: TEMP 97.1
[2017-08-30 06:10] LABS: Glucose,Whole Blood 252 mg/dL (75-99)
[2017-08-30] MEDS: NEURONTIN 800 MG PO SCH ×3 (06:40→17:38)
[2017-08-30] MEDS: LEVOTHYROXINE 112 MCG TAB PO SCH (06:40)
[2017-08-30] MEDS: predniSONE 1 MG TAB PO SCH (06:41)
[2017-08-30] MEDS: FUROSEMIDE 40 MG TAB PO SCH (06:41)
[2017-08-30] MEDS: METOPROLOL TARTRATE 25 MG TAB PO SCH (06:41)
[2017-08-30] MEDS: LISINOPRIL 20 MG TAB PO SCH (06:42)
[2017-08-30] MEDS: PILOCARPINE 5 MG TAB PO SCH ×2 (06:42→16:19)
[2017-08-30] MEDS: CARISOPRODOL 350 MG TAB PO SCH ×3 (06:42→17:36)
[2017-08-30] MEDS: INSULIN ASPART 100 UNIT/ML 1 ML 10 ML VIAL SQ SCH ×3 (06:43→17:38)
[2017-08-30] MEDS ORDERED: ATORVASTATIN 80 MG TAB PO STA (07:14)
[2017-08-30] MEDS ORDERED: ASPIRIN 325 MG TAB PO STA (07:14)
[2017-08-30] MEDS ORDERED: ASPIRIN 325 MG TAB PO ONE (07:45)
[2017-08-30] MEDS ORDERED: ASPIRIN 325 MG TAB ONE (07:55)
[2017-08-30] MEDS ORDERED: VERAPAMIL 2.5 MG/ML 2 ML AMP ONE (08:02)
[2017-08-30] MEDS ORDERED: HEPARIN SODIUM 1,000 UN/ML (10ML VL) ONE (08:02)
[2017-08-30] MEDS ORDERED: LIDOCAINE 1% INJ 10MG/ML (20 ML MDV) ONE (08:02)
[2017-08-30] MEDS ORDERED: MIDAZOLAM 2 MG/2 ML VIAL ONE (08:03)
[2017-08-30] MEDS ORDERED: SODIUM CHLORIDE 0.9% 1,000 ML IV ONE (08:17)
[2017-08-30] MEDS ORDERED: MIDAZOLAM 2 MG/2 ML VIAL IVP ONE (08:23)
[2017-08-30] MEDS ORDERED: LIDOCAINE 1% INJ 10MG/ML (20 ML MDV) SQ ONE (08:25)
[2017-08-30] MEDS ORDERED: VERAPAMIL SYRINGE (5 MG/10 ML) INTRAARTER ONE (08:26)
[2017-08-30] MEDS ORDERED: HEPARIN SODIUM 1,000 UN/ML (10ML VL) IV ONE (08:27)
[2017-08-30] MEDS ORDERED: RX INFO: IV CONTRAST WAS GIVEN 1 EACH MISC MISCELLANE PRN (08:43)
[2017-08-30] MEDS ORDERED: SODIUM CHLORIDE 0.9% 1,000 ML IV SCH (08:45)
[2017-08-30] MEDS ORDERED: IOPAMIDOL-370 125ML BTL INJ ONE (08:49)
[2017-08-30] MEDS ORDERED: METHOTREXATE SODIUM 2.5 MG TAB PO SCH (09:00)
--- NOTE | 2017-08-30 10:02 | P.DS ---
Providers Date of admission: 08/26/17 15:29 Expected date of discharge: 08/30/17 Attending physician: Nicholas Hart Consults: 08/26/17 17:20 Consult Physician Routine Consulting Provider: Jamshid George Consult Reason/Comments: Kareen Do you want consulting provider notified?: Yes Primary care physician: Nicholas Hart - Discharge Diagnosis(es) (1) CAD (coronary artery disease) Current Visit: Yes Status: Acute (2) Atrial fibrillation with RVR Current Visit: Yes Status: Acute (3) Diabetes Current Visit: No Status: Acute (4) Generalized weakness Current Visit: No Status: Acute Hospital Course: This discharge summary 76-year-old white female essentially admitted for new- onset atrial from a rapid ventricular response. She had abnormal stress testing last week and ended up having cardiac catheterization. She is now stabilized on Eliquis and metoprolol in addition to the medication that has been reconciled. The patient will be discharged in stable condition once cleared by cardiology to follow-up with me in about 3-5 days. Patient Condition at Discharge: Good Plan - Discharge Summary New Discharge Prescriptions: New Metoprolol Tartrate [Lopressor] 25 mg PO BID #60 tab Continue Carisoprodol [Soma] 350 mg PO ACHS HYDROcodone/APAP 10-325MG [Whitney 10-325] 1 tab PO DAILY PRN PRN Reason: Pain Gabapentin [Neurontin] 1,200 mg PO TID Multivitamins, Thera [Multivitamin (formulary)] 1 tab PO DAILY Glucosamine Sulfate 1,500 mg PO DAILY Lansoprazole [Prevacid] 15 mg PO HS Clotrimazole Cream [Lotrimin Cream] 1 applic TOPICAL DAILY PRN PRN Reason: Rash Calcium Carbonate/Vitamin D3 [Calcium 600-Vit D3 400 Tablet] 1 tab PO BID predniSONE 4 mg PO QAM Moexipril HCl [Univasc] 15 mg PO QAM Gabapentin 1,600 mg PO HS hydrOXYzine HCL [Atarax] 50 mg PO HS Folic Acid 1 mg PO DAILY Adalimumab [Humira Pen] 40 mg SQ WE Acetaminophen [Tylenol Arthritis] 650 mg PO Q6H PRN PRN Reason: Pain Aspirin 325 mg PO DAILY Atorvastatin [Lipitor] 40 mg PO HS Latanoprost [Xalatan 0.005%] 1 drop BOTH EYES HS Levothyroxine Sodium [Synthroid] 224 mcg PO DAILY metFORMIN HCL [Glucophage] 1,000 mg PO AC-BID Methotrexate Sodium [Methotrexate] 10 mg PO WE traMADol HCL [Ultram] 50 mg PO Q6HR PRN PRN Reason: Pain Pilocarpine HCl [Salagen] 7.5 mg PO TID Insulin Aspart [NovoLOG (formulary)] See Protocol SQ ACHS #1 vial Nitroglycerin Sl Tabs [Nitrostat] 0.4 mg SUBLINGUAL Q5M PRN #30 tab PRN Reason: Chest Pain Verapamil Sr [Isoptin Sr] 240 mg PO DAILY #30 tablet.er Furosemide [Lasix] 40 mg PO DAILY #30 tablet Apixaban [Eliquis] 5 mg PO BID #60 tab Discharge Medication List Calcium Carbonate/Vitamin D3 [Calcium 600-Vit D3 400 Tablet] 1 tab PO BID [History] Carisoprodol [Soma] 350 mg PO ACHS 02/27/14 [History] Clotrimazole Cream [Lotrimin Cream] 1 applic TOPICAL DAILY PRN 02/27/14 [History ] Gabapentin [Neurontin] 1,200 mg PO TID 02/27/14 [History] Glucosamine Sulfate 1,500 mg PO DAILY 02/27/14 [History] HYDROcodone/APAP 10-325MG [Whitney 10-325] 1 tab PO DAILY PRN 02/27/14 [History] Lansoprazole [Prevacid] 15 mg PO HS 02/27/14 [History] Multivitamins, Thera [Multivitamin (formulary)] 1 tab PO DAILY 02/27/14 [History ] predniSONE 4 mg PO QAM 02/27/14 [History] Gabapentin 1,600 mg PO HS 03/09/16 [History] Moexipril HCl [Univasc] 15 mg PO QAM 03/09/16 [History] hydrOXYzine HCL [Atarax] 50 mg PO HS 04/12/16 [History] Folic Acid 1 mg PO DAILY 08/13/16 [History] Adalimumab [Humira Pen] 40 mg SQ WE 10/17/16 [History] Acetaminophen [Tylenol Arthritis] 650 mg PO Q6H PRN 08/11/17 [History] Aspirin 325 mg PO DAILY 08/11/17 [History] Atorvastatin [Lipitor] 40 mg PO HS 08/11/17 [History] Latanoprost [Xalatan 0.005%] 1 drop BOTH EYES HS 08/11/17 [History] Levothyroxine Sodium [Synthroid] 224 mcg PO DAILY 08/11/17 [History] Methotrexate Sodium [Methotrexate] 10 mg PO WE 08/11/17 [History] Pilocarpine HCl [Salagen] 7.5 mg PO TID 08/11/17 [History] metFORMIN HCL [Glucophage] 1,000 mg PO AC-BID 08/11/17 [History] traMADol HCL [Ultram] 50 mg PO Q6HR PRN 08/11/17 [History] Furosemide [Lasix] 40 mg PO DAILY #30 tablet 08/13/17 [Rx] Insulin Aspart [NovoLOG (formulary)] See Protocol SQ ACHS #1 vial 08/13/17 [Rx] Nitroglycerin Sl Tabs [Nitrostat] 0.4 mg SUBLINGUAL Q5M PRN #30 tab 08/13/17 [Rx ] Verapamil Sr [Isoptin Sr] 240 mg PO DAILY #30 tablet.er 08/13/17 [Rx] Apixaban [Eliquis] 5 mg PO BID #60 tab 08/30/17 [Rx] Metoprolol Tartrate [Lopressor] 25 mg PO BID #60 tab 08/30/17 [Rx] Follow up Appointment(s)/Referral(s): [facility] [Provider Group] - 1 Week Nicholas Hart MD [Primary Care Provider] - 09/04/17 3:10 pm (MONDAY) Patient Instructions/Handouts: A-fib (Atrial Fibrillation) (DC), Left Heart Catheterization (DC)
--- NOTE | 2017-08-30 10:22 | CC ---
CARDIAC CATHETERIZATION REPORT DATE OF SERVICE: August 30, 2017 PERFORMING PHYSICIAN: Jamshid George MD. PROCEDURE PERFORMED: 1. Selective right and left coronary angiogram. 2. Left heart catheterization. INDICATION: This is a pleasant 76-year-old female patient, female patient with a past medical history significant for paroxysmal atrial fibrillation, diabetes, hypertension, and dyslipidemia, was admitted to the hospital with shortness of breath. The patient underwent a stress test recently showed prior myocardial infarction. Her troponin was slightly elevated. Because of that, a heart catheterization was advised to rule out any severe underlying coronary artery disease. APPROACH: Right radial artery. LEVEL OF SEDATION: Moderate with sedation length of 16 minutes. COMPLICATION: None. PROCEDURE DESCRIPTION: After obtaining an informed consent, the patient was brought to cardiac section laborer. The right radial artery was cannulated using micropuncture technique and then I placed a 6- [place] sheath in the right radial artery. Subsequently I gave the patient 2 mg of verapamil IA and 8000 units of heparin IV. I did after that selective right and left coronary angiogram using JR4 and JL3.5 catheters. Left heart catheterization was performed using 5-[place] pigtail catheter. The procedure was completed without any complication. SELECTIVE CORONARY ANGIOGRAM: 1. The RCA is a large caliber vessel, and it is a dominant vessel. It does have mild diffuse disease only. Distally bifurcates into PDA and PLV branches both are angiographically normal. 2. The left main has mild disease only distally. It bifurcates into left circumflex, ramus intermedius, and left anterior descending artery. 3. The left circumflex is a medium caliber vessel and it is a nondominant vessel. The proximal left circumflex appeared to be angiographically normal. The mid left circumflex has a lesion in the range of 50%. The left circumflex at that area is a medium caliber vessel only. The left circumflex distally angiographically normal. 4. The ramus intermedius is angiographically normal. 5. The LAD: The LAD itself in the proximal, mid and distal portion appeared to be angiographically normal. Proximally it gives rise into the first diagonal branch which is a large caliber vessel with mild disease in the ostium. HEMODYNAMICS: The left ventricular end-diastolic pressure was 12 mmHg. CONCLUSION: 1. Mild disease involving the right coronary artery which is a large and dominant vessel. 2. Intermediate disease involving the mid left circumflex which is a medium caliber nondominant vessel. 3. Normal left anterior descending artery. 4. Mild disease involving the left main coronary artery. POSTPROCEDURE MANAGEMENT: Maximize medical treatment and follow up with the patient. RAFA / INOCENCIA: [id number] /
--- NOTE | 2017-08-30 10:22 | LTR ---
August 30, [address] Hart: Ms. Rosalva Lr underwent a heart catheterization and that revealed intermediate disease involving the left circumflex. Maximized medical treatment is recommended at this point of time. Thank you for allowing us to participate in her care and please do not hesitate to call if you have any questions or concerns. MMODL / IJN: [id number] /
[2017-08-30 11:56] LABS: Glucose,Whole Blood 334 mg/dL (75-99)
[2017-08-30] MEDS ORDERED: ADALIMUMAB SQ SCH (12:00)
[2017-08-30] MEDS: FOLIC ACID 1 MG TAB PO SCH (12:52)
[2017-08-30 13:35] VITALS: RESP 17
[2017-08-30 16:12] VITALS: BP 118/70; PULSE 97
[2017-08-30 16:52] LABS: Glucose,Whole Blood 200 mg/dL (75-99)
[2017-08-30] MEDS ORDERED: ATORVASTATIN 40 MG TAB PO SCH (21:00)
== END 2017-08-30 19:27 | disposition home or self-care (01) | DRG 287 ==
LOC: EC 13:43 → 6SEL 15:29
PROVIDERS: ADMIT Family Medicine; ATTEND Family Medicine
PROC: 4A023N7 Measurement of Cardiac Sampling and Pressure, Left Heart, Percutaneous Approach (ICD-10-PCS; principal; 2017-08-26)
PROC: B2111ZZ Fluoroscopy of Multiple Coronary Arteries using Low Osmolar Contrast (ICD-10-PCS; 2017-08-26)
PROC: B2151ZZ Fluoroscopy of Left Heart using Low Osmolar Contrast (ICD-10-PCS; 2017-08-26)
DX: I48.0 Paroxysmal atrial fibrillation (principal); E11.9 Type 2 diabetes mellitus without complications; I10 Essential (primary) hypertension; E03.9 Hypothyroidism, unspecified; E66.01 Morbid (severe) obesity due to excess calories; Z96.1 Presence of intraocular lens; E78.5 Hyperlipidemia, unspecified; I25.10 Atherosclerotic heart disease of native coronary artery without angina pectoris; M35.00 Sjogren syndrome, unspecified; R59.0 Localized enlarged lymph nodes; H53.2 Diplopia; L40.9 Psoriasis, unspecified; M48.00 Spinal stenosis, site unspecified; R77.8 Other specified abnormalities of plasma proteins; Z87.440 Personal history of urinary (tract) infections; Z68.38 Body mass index [BMI] 38.0-38.9, adult; I25.2 Old myocardial infarction; Z86.14 Personal history of Methicillin resistant Staphylococcus aureus infection; Z79.4 Long term (current) use of insulin; Z79.82 Long term (current) use of aspirin; Z79.899 Other long term (current) drug therapy; Z87.891 Personal history of nicotine dependence; Z98.42 Cataract extraction status, left eye; Z98.41 Cataract extraction status, right eye; Z79.890 Hormone replacement therapy; Z88.1 Allergy status to other antibiotic agents; Z88.2 Allergy status to sulfonamides; Z91.09 Other allergy status, other than to drugs and biological substances; I34.0 Nonrheumatic mitral (valve) insufficiency; Z79.01 Long term (current) use of anticoagulants; Z85.820 Personal history of malignant melanoma of skin
CPT/HCPCS: 36415; 71046; 78452; 80048; 80053; 83036; 83735; 83880; 84443; 84484; 85025; 85027; 85610; 85730; 93005; 93017; 93458; 94760; 96365; 96366; 96375; 96376; 99285

== ENCOUNTER 2017-09-06 09:59 | Inpatient (IN) | payer MEDICARE ==
--- NOTE | 2017-09-06 11:09 | XR ---
EXAMINATION TYPE: XR chest 2V DATE OF EXAM: 09/06/2017 COMPARISON: Chest x-ray August 26, 2017. CTA chest 04/13/2017. HISTORY: Shortness of breath today. TECHNIQUE: Frontal and lateral views of the chest are obtained. FINDINGS: Cardiomegaly is redemonstrated with atherosclerotic thoracic aorta. There is mild to moder ate central vascular congestion there is no suspicious new peripheral focal airspace opacity or pneum othorax seen bilaterally. No large effusions are evident. Widening right acromioclavicular joint is r edemonstrated. IMPRESSION: Correlate for CHF exacerbation as there is cardiomegaly with suspected mild to moderate central vascular congestion on current study.
[2017-09-06 11:10] LABS: Basophils % (A) 1 %; Eosinophils # (A) 0.3 k/uL (0-0.7); Eosinophils % (A) 4 %; HCT 35.5 % (34.0-46.0); HGB 11.5 gm/dL (11.4-16.0); Hypochromasia Slight; Lymphocytes # (A) 1.4 k/uL (1.0-4.8); Lymphocytes % (A) 18 %; MCH 30.1 pg (25.0-35.0); MCHC 32.4 g/dL (31.0-37.0); Mean Platelet Volume 7.3; Monocytes # (A) 0.5 k/uL (0-1.0); Monocytes % (A) 7 %; Neutrophils # (A) 5.6 k/uL (1.3-7.7); Neutrophils % (A) 70 %; Platelet Count 208 k/uL (150-450); RBC 3.81 m/uL (3.80-5.40); RDW 15.8 % (11.5-15.5); WBC 7.9 k/uL (3.8-10.6)
[2017-09-06 11:16] LABS: INR 1.4 (<1.2); Partial Thromboplastin Time 24.3 sec (22.0-30.0); Prothrombin Time 12.7 sec (9.0-12.0)
[2017-09-06 12:46] LABS: Creatine Kinase MB 0.5 ng/mL (0.0-2.4)
[2017-09-06 13:17] LABS: ALT 27 U/L (9-52); AST 20 U/L (14-36); Albumin 3.7 g/dL (3.5-5.0); Alkaline Phosphatase 48 U/L (38-126); Anion Gap 16 mmol/L; Blood Urea Nitrogen 20 mg/dL (7-17); Calcium 9.4 mg/dL (8.4-10.2); Carbon Dioxide 25 mmol/L (22-30); Chloride 99 mmol/L (98-107); Glucose 176 mg/dL (74-99); Potassium 3.8 mmol/L (3.5-5.1); Sodium 140 mmol/L (137-145); Total Bilirubin 0.4 mg/dL (0.2-1.3); Total Protein 6.4 g/dL (6.3-8.2)
[2017-09-06 13:26] LABS: Troponin I 0.022 ng/mL (0.000-0.034)
[2017-09-06] MEDS ORDERED: FUROSEMIDE 10 MG/ML 4 ML VIAL IV STA (13:45)
[2017-09-06] MEDS ORDERED: NITROGLYCERIN SL TABS 0.4 MG TAB SUBLINGUAL PRN ×2 (13:53→13:59)
--- NOTE | 2017-09-06 13:53 | ED ---
SOB HPI - General Chief Complaint: Shortness of Breath Stated Complaint: shani, Hx AFIB Time Seen by Provider: 09/06/17 10:39 Source: patient Mode of arrival: ambulatory Limitations: no limitations - History of Present Illness Initial Comments: 77 years old female sets with a shortness of breath she stating she was started on new medications recently she feels those meds or affecting her adversely she been nauseous no vomiting has been short-winded no chest pain no pleuritic chest pain no fever no chills no abdominal pain no frequency urgency dysuria no symptoms of TIA or CVA he has a history of for atrial fibrillation - Related Data Home Medications Medication Instructions Recorded Confirmed Calcium Carbonate/Vitamin D3 1 tab PO BID 02/27/14 09/06/17 [Calcium 600-Vit D3 400 Tablet] Carisoprodol [Soma] 350 mg PO ACHS 02/27/14 09/06/17 Clotrimazole Cream [Lotrimin Cream] 1 applic TOPICAL DAILY PRN 02/27/14 09/06/17 Gabapentin [Neurontin] 1,200 mg PO TID 02/27/14 09/06/17 Glucosamine Sulfate 1,500 mg PO DAILY 02/27/14 09/06/17 HYDROcodone/APAP 10-325MG [[place] 1 tab PO DAILY PRN 02/27/14 09/06/17 10-325] Lansoprazole [Prevacid] 15 mg PO HS 02/27/14 09/06/17 Multivitamins, Thera [Multivitamin 1 tab PO DAILY 02/27/14 09/06/17 (formulary)] predniSONE 4 mg PO QAM 02/27/14 09/06/17 Gabapentin 1,600 mg PO HS 03/09/16 09/06/17 Moexipril HCl [Univasc] 15 mg PO QAM 03/09/16 09/06/17 hydrOXYzine HCL [Atarax] 50 mg PO HS 04/12/16 09/06/17 Folic Acid 1 mg PO DAILY 08/13/16 09/06/17 Adalimumab [Humira Pen] 40 mg SQ WE 10/17/16 09/06/17 Atorvastatin [Lipitor] 40 mg PO HS 08/11/17 09/06/17 Latanoprost [Xalatan 0.005%] 1 drop BOTH EYES HS 08/11/17 09/06/17 Levothyroxine Sodium [Synthroid] 224 mcg PO DAILY 08/11/17 09/06/17 Methotrexate Sodium [Methotrexate] 10 mg PO WE 08/11/17 09/06/17 Pilocarpine HCl [Salagen] 7.5 mg PO TID 08/11/17 09/06/17 metFORMIN HCL [Glucophage] 1,000 mg PO AC-BID 08/11/17 09/06/17 traMADol HCL [Ultram] 50 mg PO Q6HR PRN 08/11/17 09/06/17 Insulin NPH Hum/Reg Insulin Hm See Protocol SQ ACHS 09/06/17 09/06/17 [NovoLIN 70-30 100 UNIT/ML VIAL] Previous Rx's Medication Instructions Recorded Furosemide [Lasix] 40 mg PO DAILY #30 tablet 08/13/17 Nitroglycerin Sl Tabs [Nitrostat] 0.4 mg SUBLINGUAL Q5M PRN #30 tab 08/13/17 Verapamil Sr [Isoptin Sr] 240 mg PO DAILY #30 tablet.er 08/13/17 Apixaban [Eliquis] 5 mg PO BID #60 tab 08/30/17 Metoprolol Tartrate [Lopressor] 25 mg PO BID #60 tab 08/30/17 Allergies Allergy/AdvReac Type Severity Reaction Status Date / Time adhesive Allergy Rash/Hives Verified 09/06/17 11:04 cephalexin [From Keflex] Allergy Rash/Hives Verified 09/06/17 11:04 grass pollen Allergy Unknown Verified 09/06/17 11:04 mold Allergy Unknown Verified 09/06/17 11:04 Sulfa (Sulfonamide Allergy Rash/Hives Verified 09/06/17 11:04 Antibiotics) newspaper ink Allergy Unknown Uncoded 09/06/17 10:22 Review of Systems ROS Statement: Those systems with pertinent positive or pertinent negative responses have been documented in the HPI. ROS Other: All systems not noted in ROS Statement are negative. Past Medical History Past Medical History: Atrial Fibrillation, Cancer, Diabetes Mellitus, Hyperlipidemia, Hypertension, Musculoskeletal Disorder, Neurologic Disorder, Osteoarthritis (OA), Renal Disease, Skin Disorder, Thyroid Disorder Additional Past Medical History / Comment(s): IDDM type II, spinal stenosis, Reynauds, neurologic sjogrens BALANCE ISSUES, SINUS INFECTIONS, HAS HAD DOUBLE VISION ALL HER LIFE-when looks certain directions, hypothyroidism, acute kidney failure psoriasis, UTI s, melanoma skin cancer lt arm, bilateral elbow bursitis with MRSA and I&Ds/antibiotics. History of Any Multi-Drug Resistant Organisms: MRSA Date of last positivie culture/infection: 02/27/14 MDRO Source:: Sputum Past Surgical History: Back Surgery, Breast Surgery, Joint Replacement, Orthopedic Surgery Additional Past Surgical History / Comment(s): Bilateral cataracts with lens implants, arthroscopies to lt wrist, gualberto knees, gualberto ankles, gualberto hips, lt hip replacment and redone, L/R shoulder sxs, rt breast bx-benign, egd/colonoscopy, skin cancer removal L arm. Past Anesthesia/Blood Transfusion Reactions: No Reported Reaction Past Psychological History: No Psychological Hx Reported Smoking Status: Former smoker Past Alcohol Use History: None Reported Past Drug Use History: None Reported - Past Family History Mother Family Medical History: CVA/TIA Additional Family Medical History / Comment(s): RUPTURED BOWEL Father Family Medical History: Cancer, Pneumonia Additional Family Medical History / Comment(s): ASPIRATIVE PNA Sister(s) Additional Family Medical History / Comment(s): at age 34 with lupus General Exam - General Exam Comments Initial Comments: General: The patient is awake and alert, in no distress, and does not appear acutely ill. Skin: Skin is warm and dry and no rashes or lesions are noted. Eye: Pupils are equal, round and reactive to light, extra-ocular movements are intact; there is normal conjunctiva bilaterally. Ears, nose, mouth and throat: There are moist mucous membranes and no oral lesions. Neck: The neck is supple, there is no tenderness or JVD. Cardiovascular: There is atrial fibrillation Respiratory: To auscultation bilateral, noticed crackles at the bases bilateral Gastrointestinal: Soft, non-distended, non-tender abdomen without masses or organomegaly noted. There is no rebound or guarding present. Bowel sounds are unremarkable. Back: There is no tenderness to palpation in the midline. There is no obvious deformity. Musculoskeletal: Normal ROM, no tenderness, There is no pedal edema. There is no calf tenderness or swelling. No cords were appreciated. Neurological: CN II-XII intact, Cranial nerves III through XII are intact. There are no obvious motor or sensory deficits. Coordination appears grossly intact. Speech is normal. Psychiatric: Cooperative, appropriate mood & affect, normal judgment. Limitations: no limitations Course Vital Signs 09/06/17 09/06/17 09/06/17 10:17 10:37 11:47 Temperature 97.6 F Pulse Rate 86 83 86 Respiratory 18 20 20 Rate Blood Pressure 102/65 103/57 135/60 O2 Sat by Pulse 96 93 L 97 Oximetry 09/06/17 12:05 Temperature Pulse Rate 74 Respiratory 16 Rate Blood Pressure 106/59 O2 Sat by Pulse 98 Oximetry EKG is atrial fibrillation ventricular rate is 83 MN interval, QRS duration is 110 QT/QTc is 412/484 review of this EKG reveals slight ST depression in lead 2 and 3 and aVF Noticed CBC is normal, INR, troponin, comp his metabolic panel are unremarkable considering congestive heart failure and chest x-ray she be admitted to Dr. Hart's service and will consult cardiology Medical Decision Making - Lab Data Result diagrams: 09/06/17 10:40 09/06/17 10:40 Lab Results 09/06/17 09/06/17 09/06/17 Range/Units 10:40 10:40 10:40 WBC 7.9 (3.8-10.6) k/uL RBC 3.81 (3.80-5.40) m/uL Hgb 11.5 (11.4-16.0) gm/dL Hct 35.5 (34.0-46.0) % MCV 93.0 (80.0-100.0) fL MCH 30.1 (25.0-35.0) pg MCHC 32.4 (31.0-37.0) g/dL RDW 15.8 H (11.5-15.5) % Plt Count 208 (150-450) k/uL Neutrophils % 70 % Lymphocytes % 18 % Monocytes % 7 % Eosinophils % 4 % Basophils % 1 % Neutrophils # 5.6 (1.3-7.7) k/uL Lymphocytes # 1.4 (1.0-4.8) k/uL Monocytes # 0.5 (0-1.0) k/uL Eosinophils # 0.3 (0-0.7) k/uL Basophils # 0.0 (0-0.2) k/uL Hypochromasia Slight PT (9.0-12.0) sec INR (<1.2) APTT (22.0-30.0) sec Sodium 140 (137-145) mmol/L Potassium 3.8 (3.5-5.1) mmol/L Chloride 99 (98-107) mmol/L Carbon Dioxide 25 (22-30) mmol/L Anion Gap 16 mmol/L BUN 20 H (7-17) mg/dL Creatinine 0.60 (0.52-1.04) mg/dL Est GFR (CKD-EPI)AfAm >90 (>60 ml/min/1.73 sqM) Est GFR (CKD-EPI)NonAf 89 (>60 ml/min/1.73 sqM) Glucose 176 H (74-99) mg/dL Calcium 9.4 (8.4-10.2) mg/dL Total Bilirubin 0.4 (0.2-1.3) mg/dL AST 20 (14-36) U/L ALT 27 (9-52) U/L Alkaline Phosphatase 48 (38-126) U/L Total Creatine Kinase 21 L (30-135) U/L CK-MB (CK-2) 0.5 (0.0-2.4) ng/mL CK-MB (CK-2) Rel Index 2.4 Troponin I 0.022 (0.000-0.034) ng/mL Total Protein 6.4 (6.3-8.2) g/dL Albumin 3.7 (3.5-5.0) g/dL 09/06/17 Range/Units 10:40 WBC (3.8-10.6) k/uL RBC (3.80-5.40) m/uL Hgb (11.4-16.0) gm/dL Hct (34.0-46.0) % MCV (80.0-100.0) fL MCH (25.0-35.0) pg MCHC (31.0-37.0) g/dL RDW (11.5-15.5) % Plt Count (150-450) k/uL Neutrophils % % Lymphocytes % % Monocytes % % Eosinophils % % Basophils % % Neutrophils # (1.3-7.7) k/uL Lymphocytes # (1.0-4.8) k/uL Monocytes # (0-1.0) k/uL Eosinophils # (0-0.7) k/uL Basophils # (0-0.2) k/uL Hypochromasia PT 12.7 H (9.0-12.0) sec INR 1.4 H (<1.2) APTT 24.3 (22.0-30.0) sec Sodium (137-145) mmol/L Potassium (3.5-5.1) mmol/L Chloride (98-107) mmol/L Carbon Dioxide (22-30) mmol/L Anion Gap mmol/L BUN (7-17) mg/dL Creatinine (0.52-1.04) mg/dL Est GFR (CKD-EPI)AfAm (>60 ml/min/1.73 sqM) Est GFR (CKD-EPI)NonAf (>60 ml/min/1.73 sqM) Glucose (74-99) mg/dL Calcium (8.4-10.2) mg/dL Total Bilirubin (0.2-1.3) mg/dL AST (14-36) U/L ALT (9-52) U/L Alkaline Phosphatase (38-126) U/L Total Creatine Kinase (30-135) U/L CK-MB (CK-2) (0.0-2.4) ng/mL CK-MB (CK-2) Rel Index Troponin I (0.000-0.034) ng/mL Total Protein (6.3-8.2) g/dL Albumin (3.5-5.0) g/dL Disposition Clinical Impression: Dyspnea, Congestive heart failure Disposition: ADMITTED IP TO THIS HOSP Condition: Good Referrals: Nicholas Hart MD [Primary Care Provider] - 1-2 days
[2017-09-06] MEDS ORDERED: CLOTRIMAZOLE 1% CREAM 15 GM TUBE TOPICAL PRN (13:59)
[2017-09-06 17:22] LABS: Creatine Kinase MB 0.6 ng/mL (0.0-2.4); Troponin I 0.023 ng/mL (0.000-0.034)
[2017-09-06] MEDS ORDERED: GABAPENTIN 400 MG CAP PO SCH ×2 (17:30→21:00)
[2017-09-06] MEDS: ADALIMUMAB 80 MG/1.6 ML KIT SQ SCH (17:58)
[2017-09-06] MEDS: PILOCARPINE HCL PO SCH (17:59)
[2017-09-06] MEDS: traMADol 50 MG TAB PO PRN ×2 (18:29→22:55)
[2017-09-06] MEDS: metFORMIN 500 MG TAB PO SCH (18:31)
[2017-09-06] MEDS: CARISOPRODOL 350 MG TAB PO SCH ×2 (18:35→20:42)
[2017-09-06] MEDS: APIXABAN 5 MG TAB PO SCH (20:37)
[2017-09-06] MEDS: ATORVASTATIN 40 MG TAB PO SCH (20:37)
[2017-09-06] MEDS: METOPROLOL TARTRATE 25 MG TAB PO SCH (20:38)
[2017-09-06] MEDS: hydrOXYzine HCL 25 MG TAB PO SCH (20:38)
[2017-09-06] MEDS: CALCIUM CARB-VIT D 500MG-200UN 1 EACH TAB PO SCH (20:38)
[2017-09-06] MEDS: PANTOPRAZOLE 40 MG TABLET PO SCH (20:39)
[2017-09-06] MEDS: LATANOPROST 0.005% OPHTH DROPS 2.5 ML BTL BOTH EYES SCH (20:42)
[2017-09-06 21:04] LABS: Glucose,Whole Blood 176 mg/dL (75-99)
[2017-09-06 22:12] LABS: Cholesterol 73 mg/dL (<200); HDL Cholesterol 37 mg/dL (40-60); LDL Cholesterol,Calculated 17 mg/dL (0-99); Triglycerides 96 mg/dL (<150)
[2017-09-06] MEDS: NEURONTIN 800 MG PO SCH (22:48)
[2017-09-06 23:32] LABS: Creatine Kinase MB 0.5 ng/mL (0.0-2.4); Troponin I 0.022 ng/mL (0.000-0.034)
[2017-09-07] MEDS: PILOCARPINE HCL PO SCH ×4 (00:31→16:14)
[2017-09-07] MEDS: MORPHINE SULFATE 2 MG/ML SYRINGE IVP PRN (00:37)
[2017-09-07 06:08] LABS: Glucose,Whole Blood 175 mg/dL (75-99)
[2017-09-07] MEDS: metFORMIN 500 MG TAB PO SCH ×2 (06:41→17:09)
[2017-09-07] MEDS: LEVOTHYROXINE 112 MCG TAB PO SCH (06:41)
[2017-09-07] MEDS: NEURONTIN 800 MG PO SCH ×4 (06:42→21:40)
[2017-09-07] MEDS: CARISOPRODOL 350 MG TAB PO SCH ×4 (06:50→21:40)
--- NOTE | 2017-09-07 07:56 | P.HPIM ---
History of Present Illness H&P Date: 09/07/17 Chief Complaint: Shortness of breath This is a history of physical 77-year-old white female with known history of fibromyalgia with new onset atrial fibrillation. She was recently discharged recently and I saw her for follow-up where she was fairly stable. However, for the last 3 days she's been having significant worsening shortness of breath and lower extremity edema. The patient is now admitted secondary to exacerbation of heart failure most likely related to atrial fibrillation. No overt fever or chills. No overt chest pain or anginal equivalent stated. The patient has orthopnea which is worsening over the last several days. Review of Systems Constitutional: Denies chills, Denies fever Eyes: denies blurred vision, denies pain Ears, nose, mouth and throat: Denies headache, Denies sore throat Cardiovascular: Reports edema, Reports orthopnea, Reports shortness of breath Respiratory: Denies cough Gastrointestinal: Denies abdominal pain, Denies diarrhea, Denies nausea, Denies vomiting Musculoskeletal: Denies myalgias Past Medical History Past Medical History: Atrial Fibrillation, Cancer, Diabetes Mellitus, Hyperlipidemia, Hypertension, Musculoskeletal Disorder, Neurologic Disorder, Osteoarthritis (OA), Renal Disease, Rheumatoid Arthritis (RA), Skin Disorder, Thyroid Disorder Additional Past Medical History / Comment(s): IDDM type II, spinal stenosis, Reynauds, neurologic sjogrens BALANCE ISSUES, SINUS INFECTIONS, HAS HAD DOUBLE VISION ALL HER LIFE-when looks certain directions, hypothyroidism, acute kidney failure psoriasis, UTI s, melanoma skin cancer lt arm, bilateral elbow bursitis with MRSA and I&Ds/antibiotics.pt stated never had gout. History of Any Multi-Drug Resistant Organisms: MRSA Date of last positivie culture/infection: 02/27/14 MDRO Source:: Sputum Past Surgical History: Back Surgery, Breast Surgery, Heart Catheterization, Joint Replacement, Orthopedic Surgery Additional Past Surgical History / Comment(s): Bilateral cataracts with lens implants, arthroscopies to lt wrist, gualberto knees, gualberto ankles, gualberto hips, lt hip replacment and redone, L/R shoulder sxs, rt breast bx-benign, egd/colonoscopy, skin cancer removal L arm. Past Anesthesia/Blood Transfusion Reactions: No Reported Reaction Smoking Status: Former smoker - Past Family History Mother Family Medical History: CVA/TIA Additional Family Medical History / Comment(s): RUPTURED BOWEL Father Family Medical History: Cancer, Pneumonia Additional Family Medical History / Comment(s): ASPIRATIVE PNA Sister(s) Additional Family Medical History / Comment(s): at age 34 with lupus Medications and Allergies Home Medications Medication Instructions Recorded Confirmed Type Calcium Carbonate/Vitamin D3 1 tab PO BID 02/27/14 09/06/17 History [Calcium 600-Vit D3 400 Tablet] Carisoprodol [Soma] 350 mg PO ACHS 02/27/14 09/06/17 History Clotrimazole Cream [Lotrimin Cream] 1 applic TOPICAL DAILY PRN 02/27/14 History Gabapentin [Neurontin] 1,200 mg PO TID 02/27/14 09/06/17 History Glucosamine Sulfate 1,500 mg PO DAILY 02/27/14 09/06/17 History HYDROcodone/APAP 10-325MG [[place] 1 tab PO DAILY PRN 02/27/14 09/06/17 History 10-325] Lansoprazole [Prevacid] 15 mg PO HS 02/27/14 09/06/17 History Multivitamins, Thera [Multivitamin 1 tab PO DAILY 02/27/14 09/06/17 History (formulary)] predniSONE 4 mg PO QAM 02/27/14 09/06/17 History Gabapentin 1,600 mg PO HS 03/09/16 09/06/17 History Moexipril HCl [Univasc] 15 mg PO QAM 03/09/16 09/06/17 History hydrOXYzine HCL [Atarax] 50 mg PO HS 04/12/16 09/06/17 History Folic Acid 1 mg PO DAILY 08/13/16 09/06/17 History Adalimumab [Humira Pen] 40 mg SQ WE 10/17/16 09/06/17 History Atorvastatin [Lipitor] 40 mg PO HS 08/11/17 09/06/17 History Latanoprost [Xalatan 0.005%] 1 drop BOTH EYES HS 08/11/17 09/06/17 History Levothyroxine Sodium [Synthroid] 224 mcg PO DAILY 08/11/17 09/06/17 History Methotrexate Sodium [Methotrexate] 10 mg PO WE 08/11/17 09/06/17 History Pilocarpine HCl [Salagen] 7.5 mg PO TID 08/11/17 09/06/17 History metFORMIN HCL [Glucophage] 1,000 mg PO AC-BID 08/11/17 09/06/17 History traMADol HCL [Ultram] 50 mg PO Q6HR PRN 08/11/17 09/06/17 History Furosemide [Lasix] 40 mg PO DAILY #30 tablet 08/13/17 09/06/17 Rx Nitroglycerin Sl Tabs [Nitrostat] 0.4 mg SUBLINGUAL Q5M PRN #30 tab 08/13/1701/14 Rx Verapamil Sr [Isoptin Sr] 240 mg PO DAILY #30 tablet.er 08/13/17 09/06/17 Rx Apixaban [Eliquis] 5 mg PO BID #60 tab 08/30/17 09/06/17 Rx Metoprolol Tartrate [Lopressor] 25 mg PO BID #60 tab 08/30/17 09/06/17 Rx Insulin NPH Hum/Reg Insulin Hm See Protocol SQ ACHS 09/06/17 09/06/17 History [NovoLIN 70-30 100 UNIT/ML VIAL] Allergies Allergy/AdvReac Type Severity Reaction Status Date / Time adhesive Allergy Rash/Hives Verified 09/06/17 11:04 cephalexin [From Keflex] Allergy Rash/Hives Verified 09/06/17 11:04 grass pollen Allergy Unknown Verified 09/06/17 11:04 mold Allergy Unknown Verified 09/06/17 11:04 Sulfa (Sulfonamide Allergy Rash/Hives Verified 09/06/17 11:04 Antibiotics) newspaper ink Allergy Unknown Uncoded 09/06/17 10:22 Physical Exam Vitals: Vital Signs Temp Pulse Pulse Resp BP BP Pulse Ox 09/07/17 04:00 97.6 F 71 18 117/69 97 09/07/17 00:00 97.7 F 69 17 119/63 94 L 09/06/17 20:00 98.2 F 83 18 117/70 94 L 09/06/17 18:53 16 09/06/17 15:38 97.4 F L 84 16 131/79 97 09/06/17 14:53 76 16 125/68 97 09/06/17 13:00 74 16 123/84 92 L 09/06/17 12:05 74 16 106/59 98 09/06/17 11:47 86 20 135/60 97 09/06/17 10:37 83 20 103/57 93 L 09/06/17 10:17 97.6 F 86 18 102/65 96 Intake and Output 09/06/17 09/07/17 09/07/17 22:59 06:59 14:59 Intake Total 240 Output Total 400 Balance -160 Intake: Oral 240 Output: Urine 400 Other: Voiding Method Toilet Toilet Weight 133.2 kg 132.7 kg - Constitutional General appearance: morbidly obese - EENT Eyes: no abnormal pupil - Neck Neck: no lymphadenopathy - Respiratory Respiratory: bilateral: diminished - Cardiovascular Rhythm: irregularly irregular Heart sounds: normal: S1, S2 Abnormal Heart Sounds: no S3 Gallop - Gastrointestinal General gastrointestinal: soft, no tenderness - Musculoskeletal Musculoskeletal: generalized weakness - Psychiatric Psychiatric: A&O x's 3, appropriate affect, intact judgment & insight Results CBC & Chem 7: 09/06/17 10:40 09/06/17 10:40 Labs: Abnormal Lab Results - Last 24 Hours (Table) 09/06/17 09/06/17 09/06/17 Range/Units 10:40 10:40 10:40 RDW 15.8 H (11.5-15.5) % PT (9.0-12.0) sec INR (<1.2) BUN 20 H (7-17) mg/dL Glucose 176 H (74-99) mg/dL POC Glucose (mg/dL) (75-99) mg/dL Total Creatine Kinase 21 L (30-135) U/L HDL Cholesterol (40-60) mg/dL 09/06/17 09/06/17 09/06/17 Range/Units 10:40 10:40 16:28 RDW (11.5-15.5) % PT 12.7 H (9.0-12.0) sec INR 1.4 H (<1.2) BUN (7-17) mg/dL Glucose (74-99) mg/dL POC Glucose (mg/dL) (75-99) mg/dL Total Creatine Kinase 23 L (30-135) U/L HDL Cholesterol 37 L (40-60) mg/dL 09/06/17 09/06/17 09/07/17 Range/Units 21:03 22:28 06:06 RDW (11.5-15.5) % PT (9.0-12.0) sec INR (<1.2) BUN (7-17) mg/dL Glucose (74-99) mg/dL POC Glucose (mg/dL) 176 H 175 H (75-99) mg/dL Total Creatine Kinase 23 L (30-135) U/L HDL Cholesterol (40-60) mg/dL Assessment and Plan (1) Chronic atrial fibrillation Current Visit: Yes Status: Acute Code(s): I48.2 - CHRONIC ATRIAL FIBRILLATION SNOMED Code(s): 934734598 (2) Congestive heart failure Current Visit: Yes Status: Acute Code(s): I50.9 - HEART FAILURE, UNSPECIFIED SNOMED Code(s): 85639964 (3) Dyspnea Current Visit: Yes Status: Acute Code(s): R06.00 - DYSPNEA, UNSPECIFIED SNOMED Code(s): 233530784 (4) Diabetes Current Visit: No Status: Acute Code(s): E11.9 - TYPE 2 DIABETES MELLITUS WITHOUT COMPLICATIONS SNOMED Code(s): 15569515 (5) Generalized weakness Current Visit: No Status: Acute Code(s): R53.1 - WEAKNESS SNOMED Code(s): 07130472 (6) Gout Current Visit: No Status: Acute Code(s): M10.9 - GOUT, UNSPECIFIED SNOMED Code(s): 95605348 Plan: Due to her acute congestive heart failure, we will go ahead and institute appropriate diuresis. Glacing Machine Tender consulted. Repeat echocardiogram if necessary. Check CBC and CMP in a.m. She is otherwise full code. See orders otherwise. Prognosis is guarded today but should improve once her baseline edema is addressed. Time with Patient: Greater than 30
[2017-09-07] MEDS ORDERED: GLUCOSAMINE SULFATE 1500 MG PO SCH (09:00)
[2017-09-07] MEDS: predniSONE 1 MG TAB PO SCH (09:00)
[2017-09-07] MEDS ORDERED: ASPIRIN 325 MG TAB PO SCH (09:00)
[2017-09-07] MEDS: APIXABAN 5 MG TAB PO SCH ×2 (09:00→21:41)
[2017-09-07] MEDS ORDERED: FUROSEMIDE 40 MG TAB PO SCH (09:00)
[2017-09-07] MEDS: METOPROLOL TARTRATE 25 MG TAB PO SCH ×2 (09:01→21:42)
[2017-09-07] MEDS: VERAPAMIL SR 240 MG TABLET.ER PO SCH (09:03)
[2017-09-07] MEDS: FUROSEMIDE 10 MG/ML 4 ML VIAL IV SCH ×2 (09:05→19:54)
[2017-09-07] MEDS: CALCIUM CARB-VIT D 500MG-200UN 1 EACH TAB PO SCH ×2 (09:07→21:41)
--- NOTE | 2017-09-07 10:02 | P.CRDCN ---
History of Present Illness Consult date: 09/07/17 Requesting physician: Nicholas Hart Consult reason: congestive heart failure Chief complaint: Shortness of breath History of present illness: This is 77 year old female who follows with Dr. Gillette in the office. She has a known history of paroxysmal atrial fibrillation, rheumatoid arthritis, diabetes, hypertension, hyperlipidemia, she was recently in the hospital at the end of July, underwent a cardiac catheterization by Dr. Gaytan which revealed mild disease involving the right coronary artery, intermediate disease involving the mid circumflex, normal LAD, mild disease in the left main , medical therapy was advised. She presents to the hospital on this occasion with symptoms of progressively worsening shortness of breath. She also states that she had noticed some bilateral leg swelling which was new to her. Chest x- ray on admission showed congestive heart failure exacerbation with mild to moderate central vascular congestion. An echocardiogram with Doppler study was performed which revealed an ejection fraction of 50-55%, moderate mitral regurgitation. EKG on admission here showed atrial fibrillation with a controlled ventricular response. White blood cell count 7.9, hemoglobin 11.5, platelet count 208. Sodium 140, potassium 3.8, BUN 20, creatinine 0.6. BNP level 1510. Troponins 0.022, 0.023, 0.022. At the time of my examination this morning, patient states she cannot lie completely flat in bed still has some short of breath when she does that, she has been putting out good amounts of urine on the IV Lasix. She is currently on Lasix 40 mg IV twice a day. Past Medical History Past Medical History: Atrial Fibrillation, Cancer, Diabetes Mellitus, Hyperlipidemia, Hypertension, Musculoskeletal Disorder, Neurologic Disorder, Osteoarthritis (OA), Renal Disease, Rheumatoid Arthritis (RA), Skin Disorder, Thyroid Disorder Additional Past Medical History / Comment(s): IDDM type II, spinal stenosis, Reynauds, neurologic sjogrens BALANCE ISSUES, SINUS INFECTIONS, HAS HAD DOUBLE VISION ALL HER LIFE-when looks certain directions, hypothyroidism, acute kidney failure psoriasis, UTI s, melanoma skin cancer lt arm, bilateral elbow bursitis with MRSA and I&Ds/antibiotics.pt stated never had gout. History of Any Multi-Drug Resistant Organisms: MRSA Date of last positivie culture/infection: 02/27/14 MDRO Source:: Sputum Past Surgical History: Back Surgery, Breast Surgery, Heart Catheterization, Joint Replacement, Orthopedic Surgery Additional Past Surgical History / Comment(s): Bilateral cataracts with lens implants, arthroscopies to lt wrist, gualberto knees, gualberto ankles, gualberto hips, lt hip replacment and redone, L/R shoulder sxs, rt breast bx-benign, egd/colonoscopy, skin cancer removal L arm. Past Anesthesia/Blood Transfusion Reactions: No Reported Reaction Smoking Status: Former smoker - Past Family History Mother Family Medical History: CVA/TIA Additional Family Medical History / Comment(s): RUPTURED BOWEL Father Family Medical History: Cancer, Pneumonia Additional Family Medical History / Comment(s): ASPIRATIVE PNA Sister(s) Additional Family Medical History / Comment(s): at age 34 with lupus Medications and Allergies Home Medications Medication Instructions Recorded Confirmed Type Calcium Carbonate/Vitamin D3 1 tab PO BID 02/27/14 09/06/17 History [Calcium 600-Vit D3 400 Tablet] Carisoprodol [Soma] 350 mg PO ACHS 02/27/14 09/06/17 History Clotrimazole Cream [Lotrimin Cream] 1 applic TOPICAL DAILY PRN 02/27/14 History Gabapentin [Neurontin] 1,200 mg PO TID 02/27/14 09/06/17 History Glucosamine Sulfate 1,500 mg PO DAILY 02/27/14 09/06/17 History HYDROcodone/APAP 10-325MG [[place] 1 tab PO DAILY PRN 02/27/14 09/06/17 History 10-325] Lansoprazole [Prevacid] 15 mg PO HS 02/27/14 09/06/17 History Multivitamins, Thera [Multivitamin 1 tab PO DAILY 02/27/14 09/06/17 History (formulary)] predniSONE 4 mg PO QAM 02/27/14 09/06/17 History Gabapentin 1,600 mg PO HS 03/09/16 09/06/17 History Moexipril HCl [Univasc] 15 mg PO QAM 03/09/16 09/06/17 History hydrOXYzine HCL [Atarax] 50 mg PO HS 04/12/16 09/06/17 History Folic Acid 1 mg PO DAILY 08/13/16 09/06/17 History Adalimumab [Humira Pen] 40 mg SQ WE 10/17/16 09/06/17 History Atorvastatin [Lipitor] 40 mg PO HS 08/11/17 09/06/17 History Latanoprost [Xalatan 0.005%] 1 drop BOTH EYES HS 08/11/17 09/06/17 History Levothyroxine Sodium [Synthroid] 224 mcg PO DAILY 08/11/17 09/06/17 History Methotrexate Sodium [Methotrexate] 10 mg PO WE 08/11/17 09/06/17 History Pilocarpine HCl [Salagen] 7.5 mg PO TID 08/11/17 09/06/17 History metFORMIN HCL [Glucophage] 1,000 mg PO AC-BID 08/11/17 09/06/17 History traMADol HCL [Ultram] 50 mg PO Q6HR PRN 08/11/17 09/06/17 History Furosemide [Lasix] 40 mg PO DAILY #30 tablet 08/13/17 09/06/17 Rx Nitroglycerin Sl Tabs [Nitrostat] 0.4 mg SUBLINGUAL Q5M PRN #30 tab 08/13/1701/14 Rx Verapamil Sr [Isoptin Sr] 240 mg PO DAILY #30 tablet.er 08/13/17 09/06/17 Rx Apixaban [Eliquis] 5 mg PO BID #60 tab 08/30/17 09/06/17 Rx Metoprolol Tartrate [Lopressor] 25 mg PO BID #60 tab 08/30/17 09/06/17 Rx Insulin NPH Hum/Reg Insulin Hm See Protocol SQ ACHS 09/06/17 09/06/17 History [NovoLIN 70-30 100 UNIT/ML VIAL] Allergies Allergy/AdvReac Type Severity Reaction Status Date / Time adhesive Allergy Rash/Hives Verified 09/06/17 11:04 cephalexin [From Keflex] Allergy Rash/Hives Verified 09/06/17 11:04 grass pollen Allergy Unknown Verified 09/06/17 11:04 mold Allergy Unknown Verified 09/06/17 11:04 Sulfa (Sulfonamide Allergy Rash/Hives Verified 09/06/17 11:04 Antibiotics) newspaper ink Allergy Unknown Uncoded 09/06/17 10:22 Physical Exam Vitals: Vital Signs Temp Pulse Pulse Pulse Resp BP BP 09/07/17 09:13 71 18 09/07/17 09:12 98.5 F 71 18 107/62 09/07/17 08:53 09/07/17 04:00 97.6 F 71 18 117/69 09/07/17 00:00 97.7 F 69 17 119/63 09/06/17 20:00 98.2 F 83 18 117/70 09/06/17 18:53 16 09/06/17 15:38 97.4 F L 84 16 131/79 09/06/17 14:53 76 16 125/68 09/06/17 13:00 74 16 123/84 09/06/17 12:05 74 16 106/59 09/06/17 11:47 86 20 135/60 09/06/17 10:37 83 20 103/57 09/06/17 10:17 97.6 F 86 18 102/65 Pulse Ox 09/07/17 09:13 09/07/17 09:12 97 09/07/17 08:53 97 09/07/17 04:00 97 09/07/17 00:00 94 L 09/06/17 20:00 94 L 09/06/17 18:53 09/06/17 15:38 97 09/06/17 14:53 97 09/06/17 13:00 92 L 09/06/17 12:05 98 09/06/17 11:47 97 09/06/17 10:37 93 L 09/06/17 10:17 96 Intake and Output 09/06/17 09/07/17 09/07/17 22:59 06:59 14:59 Intake Total 240 400 Output Total 400 0 0 Balance -160 0 400 Intake: Oral 240 400 Output: Urine 400 0 0 Other: Voiding Method Toilet Toilet Toilet Weight 133.2 kg 132.7 kg PHYSICAL EXAMINATION: GENERAL: 77-year-old female in no apparent distress at the time of my examination HEENT: Head is atraumatic, normocephalic. Pupils equal, round. Sclera anicteric. Conjunctiva are clear. Mucous membranes of the mouth are moist. Neck is supple. There is no elevated jugular venous pressure.] bruit is heard. HEART EXAMINATION: Heart S1 and S2 irregularly irregular a systolic murmur is heard CHEST EXAMINATION: Lungs are clear to auscultation and precussion. No chest wall tenderness is noted on palpation or with deep breathing. ABDOMEN: Soft, nontender. Bowel sounds are heard. No organomegaly noted. EXTREMITIES: 2+ peripheral pulses with trace evidence of peripheral edema and no calf tenderness noted. Right radial site from prior cath no hematoma, no ecchymosis, good distal pulse NEUROLOGIC patient is awake, alert and oriented ?-3. . Results 09/06/17 10:40 09/06/17 10:40 Cardiac Enzymes 09/06/17 09/06/17 09/06/17 Range/Units 10:40 10:40 16:28 AST 20 (14-36) U/L CK-MB (CK-2) 0.5 0.6 (0.0-2.4) ng/mL Troponin I 0.022 0.023 (0.000-0.034) ng/mL 09/06/17 Range/Units 22:28 AST (14-36) U/L CK-MB (CK-2) 0.5 (0.0-2.4) ng/mL Troponin I 0.022 (0.000-0.034) ng/mL Coagulation 09/06/17 Range/Units 10:40 PT 12.7 H (9.0-12.0) sec APTT 24.3 (22.0-30.0) sec Lipids 09/06/17 Range/Units 10:40 Triglycerides 96 (<150) mg/dL Cholesterol 73 (<200) mg/dL HDL Cholesterol 37 L (40-60) mg/dL CBC 09/06/17 Range/Units 10:40 WBC 7.9 (3.8-10.6) k/uL RBC 3.81 (3.80-5.40) m/uL Hgb 11.5 (11.4-16.0) gm/dL Hct 35.5 (34.0-46.0) % Plt Count 208 (150-450) k/uL Comprehensive Metabolic Panel 09/06/17 Range/Units 10:40 Sodium 140 (137-145) mmol/L Potassium 3.8 (3.5-5.1) mmol/L Chloride 99 (98-107) mmol/L Carbon Dioxide 25 (22-30) mmol/L BUN 20 H (7-17) mg/dL Creatinine 0.60 (0.52-1.04) mg/dL Glucose 176 H (74-99) mg/dL Calcium 9.4 (8.4-10.2) mg/dL AST 20 (14-36) U/L ALT 27 (9-52) U/L Alkaline Phosphatase 48 (38-126) U/L Total Protein 6.4 (6.3-8.2) g/dL Albumin 3.7 (3.5-5.0) g/dL Current Medications Generic Name Dose Route Start Last Admin Trade Name Freq PRN Reason Stop Dose Admin Hydrocodone Bitart/Acetaminophen 1 each 09/06/17 13:59 [place] 10 PO DAILY PRN Moderate Pain Adalimumab 40 mg 09/06/17 14:00 09/06/17 17:58 Humira SQ Not Given WE ASHUTOSH Apixaban 5 mg 09/06/17 21:00 09/07/17 09:00 Eliquis PO 5 mg BID ASHUTOSH Administration Aspirin 325 mg 09/07/17 09:00 09/07/17 09:00 Aspirin PO Not Given DAILY ASHUTOSH Atorvastatin Calcium 40 mg 09/06/17 21:00 09/06/17 20:37 Lipitor PO 40 mg HS ASHUTOSH Administration Calcium Carbonate 1 each 09/06/17 21:00 09/07/17 09:07 Oscal 500+D PO 1 each BID ASHUTOSH Administration Carisoprodol 350 mg 09/06/17 17:30 09/07/17 06:50 Soma PO 350 mg ACHS ASHUTOSH Administration Clotrimazole 1 applic 09/06/17 13:59 Lotrimin Cream TOPICAL DAILY PRN Rash Folic Acid 1 mg 09/07/17 12:00 Folic Acid PO DAILY@1200 ASHUTOSH Furosemide 40 mg 09/07/17 09:00 09/07/17 09:05 Lasix IV 40 mg Q12HR ASHUTOSH Administration Hydroxyzine HCl 50 mg 09/06/17 21:00 09/06/17 20:38 Atarax PO 50 mg HS ASHUTOSH Administration Latanoprost 1 drops 09/06/17 21:00 09/06/17 20:42 Xalatan 0.005% BOTH EYES 1 drops HS ASHUTOSH Administration Levothyroxine Sodium 224 mcg 09/07/17 06:30 09/07/17 06:41 Synthroid PO 224 mcg DAILY@0630 ASHUTOSH Administration Lisinopril 20 mg 09/07/17 09:00 Zestril PO QAM ASHUTOSH Metformin HCl 1,000 mg 09/06/17 17:30 09/07/17 06:41 Glucophage PO 1,000 mg AC-BID ASHUTOSH Administration Methotrexate 10 mg 09/13/17 09:00 Methotrexate PO WE ASHUTOSH Metoprolol Tartrate 25 mg 09/06/17 21:00 09/07/17 09:01 Lopressor PO 25 mg BID ASHUTOSH Administration Morphine Sulfate 2 mg 09/06/17 13:53 09/07/17 00:37 Morphine Sulfate (Inj) IVP 2 mg Q5M PRN Administration Chest Pain Multivitamins 1 each 09/07/17 12:00 Theragran PO DAILY@1200 ASHUTOSH Nitroglycerin 0.4 mg 09/06/17 13:59 Nitrostat SUBLINGUAL Q5M PRN Chest Pain Pilocarpine Hcl [ 7.5 mg 09/06/17 16:00 09/07/17 09:02 Salagen] PO Not Given TID ASHUTOSH Neurontin 800mg Tab 1.5 each 09/06/17 18:23 09/07/17 06:42 PO 1.5 each TID-W/MEALS ASHUTOSH Administration Neurontin 800mg Tab 2 each 09/06/17 21:00 09/06/17 22:48 PO 2 each HS ASHUTOSH Administration Pantoprazole Sodium 40 mg 09/06/17 21:00 09/06/17 20:39 Protonix PO 40 mg HS ASHUTOSH Administration Prednisone 4 mg 09/07/17 09:00 09/07/17 09:00 PO 4 mg QAM ASHUTOSH Administration Tramadol HCl 50 mg 09/06/17 13:59 09/06/17 22:55 Ultram PO 50 mg Q6HR PRN Administration Mild Pain Verapamil HCl 240 mg 09/07/17 09:00 09/07/17 09:03 Isoptin Sr PO 240 mg DAILY ASHUTOSH Administration Intake and Output 09/06/17 09/07/17 09/07/17 22:59 06:59 14:59 Intake Total 240 400 Output Total 400 0 0 Balance -160 0 400 Intake: Oral 240 400 Output: Urine 400 0 0 Other: Voiding Method Toilet Toilet Toilet Weight 133.2 kg 132.7 kg 09/06/17 10:40 09/06/17 10:40 EKG Interpretations (text) EKG shows atrial fibrillation with a controlled ventricular response Assessment and Plan Plan: Assessment and plan #1 congestive heart failure, diastolic, acute on chronic #2 recent heart catheterization less than one month ago which revealed mild disease involving the RCA, intermediate disease in the mid circumflex, normal LAD, mild disease in the left main, medical therapy advised #3 paroxysmal atrial fibrillation, on Eliquis for anticoagulation #4 rheumatoid arthritis #5 hypertension #6 diabetes #7 hyperlipidemia Plan We will decrease aspirin 81 mg daily, continue IV Lasix as well as DIANA inhibitor , beta kathi, Lipitor, and Eliquis. Check daily lytes BUN and creatinine, intake and output and daily weights. Further recommendations to follow. DNP note has been reviewed, I agree with a documented findings and plan of care. Patient was seen and examined.
[2017-09-07] MEDS: traMADol 50 MG TAB PO PRN ×2 (10:29→17:14)
[2017-09-07 11:12] VITALS: BMI 36.6
[2017-09-07 11:29] LABS: Glucose,Whole Blood 135 mg/dL (75-99)
[2017-09-07] MEDS: MULTIVITAMINS, THERA 1 EACH TAB PO SCH (12:00)
[2017-09-07] MEDS: FOLIC ACID 1 MG TAB PO SCH (12:01)
[2017-09-07] MEDS: LISINOPRIL 20 MG TAB PO SCH (12:01)
[2017-09-07] MEDS: ADALIMUMAB 80 MG/1.6 ML KIT SQ SCH (16:13)
[2017-09-07 16:29] LABS: Glucose,Whole Blood 210 mg/dL (75-99)
[2017-09-07 20:44] LABS: Glucose,Whole Blood 156 mg/dL (75-99)
[2017-09-07] MEDS: hydrOXYzine HCL 25 MG TAB PO SCH (21:41)
[2017-09-07] MEDS: ATORVASTATIN 40 MG TAB PO SCH (21:41)
[2017-09-07] MEDS: PANTOPRAZOLE 40 MG TABLET PO SCH (21:42)
[2017-09-07] MEDS: LATANOPROST 0.005% OPHTH DROPS 2.5 ML BTL BOTH EYES SCH (21:42)
[2017-09-08] MEDS: PILOCARPINE HCL PO SCH ×4 (00:03→21:56)
[2017-09-08] MEDS: traMADol 50 MG TAB PO PRN ×4 (00:04→23:10)
[2017-09-08] MEDS: HYDROcodone/APAP 10-325MG 1 EACH TAB PO PRN (00:35)
[2017-09-08 05:39] LABS: Glucose,Whole Blood 156 mg/dL (75-99)
[2017-09-08] MEDS: NEURONTIN 800 MG PO SCH ×4 (06:16→21:54)
[2017-09-08] MEDS: CARISOPRODOL 350 MG TAB PO SCH ×4 (06:16→21:54)
[2017-09-08] MEDS: LEVOTHYROXINE 112 MCG TAB PO SCH (06:17)
[2017-09-08] MEDS: metFORMIN 500 MG TAB PO SCH ×2 (06:17→17:07)
[2017-09-08 07:23] LABS: Albumin 3.9 g/dL (3.5-5.0); Calcium 9.3 mg/dL (8.4-10.2); Potassium 4.1 mmol/L (3.5-5.1); Total Bilirubin 0.4 mg/dL (0.2-1.3); Total Protein 6.6 g/dL (6.3-8.2)
--- NOTE | 2017-09-08 08:02 | P.PN ---
Subjective Progress Note Date: 09/08/17 Principal diagnosis: Congestive heart failure This can impression a 77-year-old white female essentially admitted for exacerbation of congestive heart failure most likely related to recent onset of atrial fibrillation. The patient is feeling much better. Less orthopnea is noted. The patient otherwise has decreased edema. No other voiding symptoms are stated. No significant nausea, vomiting or diarrhea is noted. Objective - Vital Signs Vital signs: Vital Signs Temp 97.2 F L 09/08/17 04:00 Pulse 63 09/08/17 04:00 Resp 18 09/08/17 04:00 BP 112/61 09/08/17 04:00 Pulse Ox 95 09/08/17 04:00 Intake & Output 09/07/17 09/08/17 09/08/17 18:59 06:59 18:59 Intake Total 980 Output Total 500 Balance 480 Weight 132.7 kg 135.4 kg Intake: Oral 980 Output: Urine 500 Other: Voiding Method Toilet Toilet # Voids 1 1 - Constitutional General appearance: Present: morbidly obese - EENT Eyes: Absent: abnormal pupil - Respiratory Respiratory: bilateral: diminished - Cardiovascular Rhythm: irregularly irregular Heart sounds: normal: S1, S2 Abnormal Heart Sounds: Absent: S3 Gallop - Gastrointestinal General gastrointestinal: Present: soft. Absent: tenderness - Integumentary Integumentary: Absent: cellulitis - Psychiatric Psychiatric: Present: A&O x's 3, appropriate affect - Labs CBC & Chem 7: 09/06/17 10:40 09/08/17 06:53 Labs: Abnormal Lab Results - Last 24 Hours (Table) 09/07/17 09/07/17 09/07/17 Range/Units 11:27 16:28 20:42 Sodium (137-145) mmol/L Chloride (98-107) mmol/L Carbon Dioxide (22-30) mmol/L BUN (7-17) mg/dL Glucose (74-99) mg/dL POC Glucose (mg/dL) 135 H 210 H 156 H (75-99) mg/dL 09/08/17 09/08/17 Range/Units 05:38 06:53 Sodium 134 L (137-145) mmol/L Chloride 93 L (98-107) mmol/L Carbon Dioxide 31 H (22-30) mmol/L BUN 32 H (7-17) mg/dL Glucose 149 H (74-99) mg/dL POC Glucose (mg/dL) 156 H (75-99) mg/dL Assessment and Plan (1) Chronic atrial fibrillation Current Visit: Yes Status: Acute Code(s): I48.2 - CHRONIC ATRIAL FIBRILLATION SNOMED Code(s): 993517912 (2) Congestive heart failure Current Visit: Yes Status: Acute Code(s): I50.9 - HEART FAILURE, UNSPECIFIED SNOMED Code(s): 40283587 (3) Dyspnea Current Visit: Yes Status: Acute Code(s): R06.00 - DYSPNEA, UNSPECIFIED SNOMED Code(s): 768199331 (4) Diabetes Current Visit: No Status: Acute Code(s): E11.9 - TYPE 2 DIABETES MELLITUS WITHOUT COMPLICATIONS SNOMED Code(s): 21480202 (5) Generalized weakness Current Visit: No Status: Acute Code(s): R53.1 - WEAKNESS SNOMED Code(s): 47641047 (6) Gout Current Visit: No Status: Acute Code(s): M10.9 - GOUT, UNSPECIFIED SNOMED Code(s): 04951717 Plan: Continue current regimen of treatment including IV Lasix. Check CMP in a.m. Appreciate cardiology input. Dr. Doyle's group will covering for the weekend. Anticipate discharge in next 24-48 hours if clinical improvement follows this trajectory.
[2017-09-08] MEDS: VERAPAMIL SR 240 MG TABLET.ER PO SCH (08:40)
[2017-09-08] MEDS: LISINOPRIL 20 MG TAB PO SCH (08:41)
[2017-09-08] MEDS: APIXABAN 5 MG TAB PO SCH ×2 (08:41→21:53)
[2017-09-08] MEDS: METOPROLOL TARTRATE 25 MG TAB PO SCH ×2 (08:41→21:53)
[2017-09-08] MEDS: FUROSEMIDE 10 MG/ML 4 ML VIAL IV SCH ×2 (08:41→21:54)
[2017-09-08] MEDS: predniSONE 1 MG TAB PO SCH (08:41)
[2017-09-08] MEDS: ASPIRIN 81 MG PO SCH (08:41)
[2017-09-08] MEDS: CALCIUM CARB-VIT D 500MG-200UN 1 EACH TAB PO SCH ×2 (08:41→21:53)
[2017-09-08 11:24] LABS: Glucose,Whole Blood 145 mg/dL (75-99)
[2017-09-08] MEDS: MULTIVITAMINS, THERA 1 EACH TAB PO SCH (12:17)
[2017-09-08] MEDS: FOLIC ACID 1 MG TAB PO SCH (12:18)
--- NOTE | 2017-09-08 14:28 | P.PN ---
Subjective Progress Note Date: 09/08/17 This is 77 year old female who follows with Dr. Gillette in the office. She has a known history of paroxysmal atrial fibrillation, rheumatoid arthritis, diabetes, hypertension, hyperlipidemia, she was recently in the hospital at the end of July, underwent a cardiac catheterization by Dr. Gaytan which revealed mild disease involving the right coronary artery, intermediate disease involving the mid circumflex, normal LAD, mild disease in the left main , medical therapy was advised. She presents to the hospital on this occasion with symptoms of progressively worsening shortness of breath. She also states that she had noticed some bilateral leg swelling which was new to her. Chest x- ray on admission showed congestive heart failure exacerbation with mild to moderate central vascular congestion. An echocardiogram with Doppler study was performed which revealed an ejection fraction of 50-55%, moderate mitral regurgitation. EKG on admission here showed atrial fibrillation with a controlled ventricular response. White blood cell count 7.9, hemoglobin 11.5, platelet count 208. Sodium 140, potassium 3.8, BUN 20, creatinine 0.6. BNP level 1510. Troponins 0.022, 0.023, 0.022. She is currently on Lasix 40 mg IV twice a day. Upon examination, patient is up ambulating to the bathroom. She verbalizes feeling quite a bit better today. Denies shortness of breath with activity. She continues to complain of some lower extremity edema but feels that this is either compared to yesterday. Denies complaints of orthopnea. Objective - Vital Signs Vital signs: Vital Signs Temp 96.8 F L 09/08/17 08:50 Pulse 71 09/08/17 12:08 Resp 20 09/08/17 12:08 BP 113/56 09/08/17 08:50 Pulse Ox 97 09/08/17 12:09 Intake & Output 09/07/17 09/08/17 09/08/17 18:59 06:59 18:59 Intake Total 980 236 Output Total 500 200 Balance 480 36 Weight 132.7 kg 135.4 kg Intake: Oral 980 236 Output: Urine 500 200 Other: Voiding Method Toilet Toilet Toilet # Voids 1 1 1 - Exam GENERAL: 77-year-old female in no apparent distress at the time of my examination HEENT: Head is atraumatic, normocephalic. Pupils equal, round. Sclera anicteric. Conjunctiva are clear. Mucous membranes of the mouth are moist. Neck is supple. There is no elevated jugular venous pressure. HEART EXAMINATION: Heart S1 and S2 irregularly irregular a systolic murmur is heard CHEST EXAMINATION: Lungs are clear to auscultation and precussion. No chest wall tenderness is noted on palpation or with deep breathing. ABDOMEN: Soft, nontender. Bowel sounds are heard. No organomegaly noted. EXTREMITIES: 2+ peripheral pulses with trace evidence of peripheral edema and no calf tenderness noted. Right radial site from prior cath no hematoma, no ecchymosis, good distal pulse NEUROLOGIC patient is awake, alert and oriented x3. - Labs CBC & Chem 7: 09/06/17 10:40 09/08/17 06:53 Labs: Abnormal Lab Results - Last 24 Hours (Table) 09/07/17 09/07/17 09/08/17 Range/Units 16:28 20:42 05:38 Sodium (137-145) mmol/L Chloride (98-107) mmol/L Carbon Dioxide (22-30) mmol/L BUN (7-17) mg/dL Glucose (74-99) mg/dL POC Glucose (mg/dL) 210 H 156 H 156 H (75-99) mg/dL 09/08/17 09/08/17 Range/Units 06:53 11:21 Sodium 134 L (137-145) mmol/L Chloride 93 L (98-107) mmol/L Carbon Dioxide 31 H (22-30) mmol/L BUN 32 H (7-17) mg/dL Glucose 149 H (74-99) mg/dL POC Glucose (mg/dL) 145 H (75-99) mg/dL Assessment and Plan Assessment: #1 congestive heart failure, diastolic, acute on chronic #2 recent heart catheterization which revealed mild disease involving RCA, intermediate disease involving the mid circumflex, normal LAD and mild disease in left main, medical therapy was advised #3 paroxysmal atrial fibrillation, likely related #4 rheumatoid arthritis #5 hypertension #6 hyperlipidemia #7 diabetes mellitus Plan: From cardiology's perspective, we will continue IV Lasix. continue to monitor daily weights, intake and output as well as electrolytes and renal function. We' ll continue to follow the patient right further recommendations accordingly. PROFESSIONAL BONDSMAN note has been reviewed, I agree with a documented findings and plan of care. Patient was seen and examined.
[2017-09-08 17:03] LABS: Glucose,Whole Blood 138 mg/dL (75-99)
[2017-09-08 20:42] LABS: Glucose,Whole Blood 157 mg/dL (75-99)
[2017-09-08] MEDS: hydrOXYzine HCL 25 MG TAB PO SCH (21:53)
[2017-09-08] MEDS: ATORVASTATIN 40 MG TAB PO SCH (21:53)
[2017-09-08] MEDS: LATANOPROST 0.005% OPHTH DROPS 2.5 ML BTL BOTH EYES SCH (21:53)
[2017-09-08] MEDS: PANTOPRAZOLE 40 MG TABLET PO SCH (21:53)
[2017-09-09] MEDS: HYDROcodone/APAP 10-325MG 1 EACH TAB PO PRN (01:13)
[2017-09-09 06:26] LABS: Glucose,Whole Blood 147 mg/dL (75-99)
[2017-09-09] MEDS: CARISOPRODOL 350 MG TAB PO SCH ×4 (06:42→21:28)
[2017-09-09] MEDS: traMADol 50 MG TAB PO PRN ×2 (06:42→18:03)
[2017-09-09] MEDS: LEVOTHYROXINE 112 MCG TAB PO SCH (06:43)
[2017-09-09] MEDS: NEURONTIN 800 MG PO SCH ×4 (06:43→21:29)
[2017-09-09] MEDS: metFORMIN 500 MG TAB PO SCH ×2 (06:43→17:44)
[2017-09-09] MEDS: INSULIN ASPART 100 UNIT/ML 1 ML 10 ML VIAL SQ SCH ×4 (06:43→21:30)
[2017-09-09] MEDS: PILOCARPINE HCL PO SCH ×3 (06:50→21:41)
[2017-09-09] MEDS: APIXABAN 5 MG TAB PO SCH ×2 (08:32→21:28)
[2017-09-09] MEDS: METOPROLOL TARTRATE 25 MG TAB PO SCH (08:32)
[2017-09-09] MEDS: FUROSEMIDE 10 MG/ML 4 ML VIAL IV SCH ×2 (08:32→21:28)
[2017-09-09] MEDS: VERAPAMIL SR 240 MG TABLET.ER PO SCH (08:32)
[2017-09-09] MEDS: ASPIRIN 81 MG PO SCH (08:32)
[2017-09-09] MEDS: predniSONE 1 MG TAB PO SCH (08:32)
[2017-09-09] MEDS: LISINOPRIL 20 MG TAB PO SCH (08:32)
[2017-09-09] MEDS: CALCIUM CARB-VIT D 500MG-200UN 1 EACH TAB PO SCH ×2 (08:33→21:28)
--- NOTE | 2017-09-09 08:36 | P.PN ---
Subjective Progress Note Date: 09/09/17 Principal diagnosis: CHF secondary to diastole dysfunction This is a pleasant 77-year-old female patient with history of mild to moderate nonobstructive CAD based on recent heart catheterization, congestive heart failure secondary to diastolic dysfunction, paroxysmal atrial fibrillation , and morbid obesity, was admitted to the hospital with progressive dyspnea and bilateral lower extremities edema and was diagnosed with CHF secondary to diastolic dysfunction. On follow-up with her today, overall she is feeling better. She denies having any chest pain or chest discomfort. The shortness of breath has improved. She still have diminished breathing sounds bilaterally and also bilateral lower extremities edema and she is slightly tachycardic and she does have irregular rhythm seems to be in atrial fibrillation with heart rate around 110 beats per minutes. I did recommend keeping the patient for additional 24 hours. The patient would like to be discharged home. I am going to increase the dose of metoprolol to 50 mg by mouth twice a day. Continue oral anticoagulation. And continue IV Lasix as well. We'll continue monitor the kidney function and electrolytes. Objective - Vital Signs Vital signs: Vital Signs Temp 96.0 F L 09/09/17 04:00 Pulse 105 H 09/09/17 04:00 Resp 18 09/09/17 04:00 BP 140/90 09/09/17 04:00 Pulse Ox 95 09/09/17 04:00 Intake & Output 09/08/17 09/09/17 09/09/17 18:59 06:59 18:59 Intake Total 534 240 Output Total 600 Balance -66 240 Weight 131.5 kg Intake: Oral 534 240 Output: Urine 600 Other: Voiding Method Toilet Toilet # Voids 1 4 - Constitutional General appearance: Present: no acute distress - Respiratory Respiratory: bilateral: diminished - Cardiovascular Rhythm: irregularly irregular Heart sounds: normal: S1, S2 - Labs CBC & Chem 7: 09/06/17 10:40 09/08/17 06:53 Labs: Abnormal Lab Results - Last 24 Hours (Table) 09/08/17 09/08/17 09/08/17 Range/Units 11:21 16:40 20:40 POC Glucose (mg/dL) 145 H 138 H 157 H (75-99) mg/dL 09/09/17 Range/Units 06:25 POC Glucose (mg/dL) 147 H (75-99) mg/dL Assessment and Plan Assessment: Assessment #1 congestive heart failure exacerbation secondary to diastolic dysfunction #2 atrial fibrillation was uncontrolled heart rate #3 mild to moderate nonobstructive coronary artery disease #4 obesity Plan #1 increase the dose of metoprolol to 50 mg by mouth twice a day #2 continue the IV Lasix for additional 24 hours #3 follow-up with the patient.
[2017-09-09] MEDS: MORPHINE SULFATE 2 MG/ML SYRINGE IVP PRN (10:43)
[2017-09-09 11:44] LABS: Glucose,Whole Blood 150 mg/dL (75-99)
[2017-09-09] MEDS: MULTIVITAMINS, THERA 1 EACH TAB PO SCH (11:56)
[2017-09-09] MEDS: FOLIC ACID 1 MG TAB PO SCH (11:56)
--- NOTE | 2017-09-09 15:33 | P.PN ---
Subjective Progress Note Date: 09/09/17 Principal diagnosis: Acute exacerbation diastolic CHF This is a pleasant 77-year-old female patient with history of mild to moderate nonobstructive CAD based on recent heart catheterization, congestive heart failure secondary to diastolic dysfunction, paroxysmal atrial fibrillation , and morbid obesity, was admitted to the hospital with progressive dyspnea and bilateral lower extremities edema and was diagnosed with CHF secondary to diastolic dysfunction. 09/09/2017 Patient is seen and evaluated in the room at bedside; she reports improvement in shortness of breath; patient denies any chest pain Patient continues to have decreased breath sounds bilaterally with bibasilar crackles along with lower extremity edema; she remains in atrial fibrillation with heart rate around 110; patient has been seen by cardiology service this morning; they're recommending continued IV Lasix and monitoring for another 24 hours with monitoring of renal function and electrolytes; patient's metoprolol has been increased to 50 mg twice a day Objective - Vital Signs Vital signs: Vital Signs Temp 96.8 F L 09/09/17 12:06 Pulse 56 L 09/09/17 12:09 Resp 20 09/09/17 12:09 BP 114/71 09/09/17 12:06 Pulse Ox 96 09/09/17 12:10 Intake & Output 09/08/17 09/09/17 09/09/17 18:59 06:59 18:59 Intake Total 534 580 Output Total 600 200 Balance -66 380 Weight 131.5 kg Intake: Oral 534 580 Output: Urine 600 200 Other: Voiding Method Toilet Toilet Toilet # Voids 1 4 1 # Bowel Movements 0 - Exam - Constitutional General appearance: Present: average body habitus, cooperative, no acute distress - EENT Eyes: Present: anicteric sclerae, EOMI, PERRLA, normal appearance ENT: Present: hearing grossly normal, normal oropharynx Ears: bilateral: normal - Neck Neck: Present: normal ROM. Absent: lymphadenopathy, rigidity, thyromegaly Carotids: negative: bruit present Thyroid: bilateral: normal size, negative: enlarged, nodule - Respiratory Respiratory: bilateral: Decreased breath sounds with bibasilar crackles - Cardiovascular Rhythm: Tachycardic ;irregular Heart sounds: normal: S1, S2 Abnormal Heart Sounds: Absent: systolic murmur, diastolic murmur - Gastrointestinal General gastrointestinal: Present: normal bowel sounds, soft. Absent: distended , organomegaly, tenderness - Genitourinary Genitourinary Comment(s): deferred - Integumentary Integumentary: Present: normal turgor. Absent: jaundiced, rash, ulcer - Neurologic Neurologic: Present: CNII-XII intact. Absent: focal deficits - Musculoskeletal Musculoskeletal: Present: gait normal, strength equal bilaterally - Psychiatric Psychiatric: Present: A&O x's 3, appropriate affect, intact judgment & insight - Labs CBC & Chem 7: 09/06/17 10:40 09/08/17 06:53 Labs: Abnormal Lab Results - Last 24 Hours (Table) 09/08/17 09/08/17 09/09/17 Range/Units 16:40 20:40 06:25 POC Glucose (mg/dL) 138 H 157 H 147 H (75-99) mg/dL 09/09/17 Range/Units 11:43 POC Glucose (mg/dL) 150 H (75-99) mg/dL Assessment and Plan Assessment: 1. Acute exacerbation diastolic CHF - Cardiology service is following and is recommending to continue IV Lasix for additional 24 hours - Metoprolol is increased to 50 mg twice a day per cardiology recommendations - We will continue to monitor electrolytes and renal function along with daily weights and I&O's - Discharged and agreeable to cardiology 2. Atrial fibrillation with RVR - Heart rate remains in 110 - Cardiology increased her metoprolol to 50 mg twice a day - We will continue to monitor for another 24 hours 3. Coronary artery disease; stable 4. Obesity; counseling done on weight reduction 5. Diabetes mellitus; fairly controlled Disposition; possible discharge in next 24-48 hours once cleared by cardiology Time with Patient: Greater than 30
[2017-09-09 16:54] LABS: Glucose,Whole Blood 173 mg/dL (75-99)
[2017-09-09 18:29] VITALS: RESP 18
[2017-09-09 20:49] LABS: Glucose,Whole Blood 109 mg/dL (75-99)
[2017-09-09] MEDS: ATORVASTATIN 40 MG TAB PO SCH (21:28)
[2017-09-09] MEDS: hydrOXYzine HCL 25 MG TAB PO SCH (21:28)
[2017-09-09] MEDS: LATANOPROST 0.005% OPHTH DROPS 2.5 ML BTL BOTH EYES SCH (21:29)
[2017-09-09] MEDS: PANTOPRAZOLE 40 MG TABLET PO SCH (21:29)
[2017-09-09] MEDS: METOPROLOL TARTRATE 50 MG TAB PO SCH (21:40)
[2017-09-10] MEDS: traMADol 50 MG TAB PO PRN ×3 (00:13→14:09)
[2017-09-10] MEDS: HYDROcodone/APAP 10-325MG 1 EACH TAB PO PRN ×2 (01:37→12:51)
[2017-09-10 05:43] LABS: Glucose,Whole Blood 150 mg/dL (75-99)
[2017-09-10] MEDS: metFORMIN 500 MG TAB PO SCH (06:50)
[2017-09-10] MEDS: CARISOPRODOL 350 MG TAB PO SCH ×2 (06:51→12:47)
[2017-09-10] MEDS: NEURONTIN 800 MG PO SCH ×2 (06:51→12:33)
[2017-09-10] MEDS: INSULIN ASPART 100 UNIT/ML 1 ML 10 ML VIAL SQ SCH ×3 (06:51→17:10)
[2017-09-10] MEDS: LEVOTHYROXINE 112 MCG TAB PO SCH (06:51)
[2017-09-10] MEDS: METOPROLOL TARTRATE 50 MG TAB PO SCH (08:17)
[2017-09-10] MEDS: CALCIUM CARB-VIT D 500MG-200UN 1 EACH TAB PO SCH (08:17)
[2017-09-10] MEDS: ASPIRIN 81 MG PO SCH (08:17)
[2017-09-10] MEDS: predniSONE 1 MG TAB PO SCH (08:17)
[2017-09-10] MEDS: FUROSEMIDE 10 MG/ML 4 ML VIAL IV SCH (08:17)
[2017-09-10] MEDS: APIXABAN 5 MG TAB PO SCH (08:17)
[2017-09-10] MEDS: LISINOPRIL 20 MG TAB PO SCH (08:17)
[2017-09-10] MEDS: FOLIC ACID 1 MG TAB PO SCH (08:18)
[2017-09-10] MEDS: MULTIVITAMINS, THERA 1 EACH TAB PO SCH (08:18)
[2017-09-10] MEDS: VERAPAMIL SR 240 MG TABLET.ER PO SCH (08:18)
[2017-09-10] MEDS: PILOCARPINE HCL PO SCH ×2 (08:19→16:38)
--- NOTE | 2017-09-10 09:39 | P.PN ---
Subjective Progress Note Date: 09/10/17 Principal diagnosis: CHF secondary to diastole dysfunction This is a pleasant 77-year-old female patient with history of mild to moderate nonobstructive CAD based on recent heart catheterization, congestive heart failure secondary to diastolic dysfunction, paroxysmal atrial fibrillation , and morbid obesity, was admitted to the hospital with progressive dyspnea and bilateral lower extremities edema and was diagnosed with CHF secondary to diastolic dysfunction. On follow-up with her today, overall she is feeling better. She denies having any chest pain or chest discomfort. The shortness of breath has improved. She still have diminished breathing sounds bilaterally and also bilateral lower extremities edema and she continues to be in atrial fibrillation was controlled heart rate. The patient would like to be discharged home. I am going to change the Lasix IV to Lasix by mouth. Continue the oral anticoagulation. Continue the current dose of metoprolol. From the cardiac standpoint the patient can be discharged home. Objective - Vital Signs Vital signs: Vital Signs Temp 97.3 F L 09/10/17 04:00 Pulse 89 09/10/17 08:15 Resp 18 09/10/17 08:15 BP 114/59 09/10/17 04:00 Pulse Ox 96 09/10/17 04:00 Intake & Output 09/09/17 09/10/17 09/10/17 18:59 06:59 18:59 Intake Total 820 250 Output Total 750 2400 Balance 70 -2400 250 Weight 130.6 kg Intake: IV 10 Invasive Line 2 10 Oral 820 240 Output: Urine 750 2400 Other: Voiding Method Toilet Toilet Toilet Bedside Commode Bedside Commode # Voids 1 # Bowel Movements 0 - Constitutional General appearance: Present: no acute distress - Respiratory Respiratory: bilateral: CTA - Cardiovascular Rhythm: irregularly irregular Heart sounds: normal: S1, S2 - Labs CBC & Chem 7: 09/06/17 10:40 09/08/17 06:53 Labs: Abnormal Lab Results - Last 24 Hours (Table) 09/09/17 09/09/17 09/09/17 Range/Units 11:43 16:25 20:48 POC Glucose (mg/dL) 150 H 173 H 109 H (75-99) mg/dL 09/10/17 Range/Units 05:42 POC Glucose (mg/dL) 150 H (75-99) mg/dL Assessment and Plan Assessment: Assessment #1 congestive heart failure exacerbation secondary to diastolic dysfunction #2 atrial fibrillation was uncontrolled heart rate #3 mild to moderate nonobstructive coronary artery disease #4 obesity Plan #1 changed the Lasix IV to Lasix by mouth. #2 continue the current dose of metoprolol #3 from the cardiac standpoint the patient can be discharged home.
[2017-09-10 11:51] LABS: Glucose,Whole Blood 169 mg/dL (75-99)
--- NOTE | 2017-09-10 15:33 | P.DS ---
Providers Date of admission: 09/08/17 12:46 Expected date of discharge: 09/10/17 Attending physician: Nicholas Hart Consults: 09/06/17 13:53 Consult Physician Urgent Consulting Provider: Main Kitchen Consult Reason/Comments: CHF Do you want consulting provider notified?: Yes Primary care physician: Nicholas Hart [facility] Course: This is a pleasant 77-year-old female patient with history of mild to moderate nonobstructive CAD based on recent heart catheterization, congestive heart failure secondary to diastolic dysfunction, paroxysmal atrial fibrillation , and morbid obesity, was admitted to the hospital with progressive dyspnea and bilateral lower extremities edema and was diagnosed with CHF secondary to diastolic dysfunction. 09/09/2017 Patient is seen and evaluated in the room at bedside; she reports improvement in shortness of breath; patient denies any chest pain Patient continues to have decreased breath sounds bilaterally with bibasilar crackles along with lower extremity edema; she remains in atrial fibrillation with heart rate around 110; patient has been seen by cardiology service this morning; they're recommending continued IV Lasix and monitoring for another 24 hours with monitoring of renal function and electrolytes; patient's metoprolol has been increased to 50 mg twice a day 09/10/17; dc patient Plan - Discharge Summary Discharge Rx Participant: No New Discharge Prescriptions: New Furosemide [Lasix] 40 mg PO BID@0900,1600 tab Continue Carisoprodol [Soma] 350 mg PO ACHS HYDROcodone/APAP 10-325MG [[place] 10-325] 1 tab PO DAILY PRN PRN Reason: Pain Gabapentin [Neurontin] 1,200 mg PO TID Multivitamins, Thera [Multivitamin (formulary)] 1 tab PO DAILY Glucosamine Sulfate 1,500 mg PO DAILY Lansoprazole [Prevacid] 15 mg PO HS Clotrimazole Cream [Lotrimin Cream] 1 applic TOPICAL DAILY PRN PRN Reason: Rash Calcium Carbonate/Vitamin D3 [Calcium 600-Vit D3 400 Tablet] 1 tab PO BID predniSONE 4 mg PO QAM Moexipril HCl [Univasc] 15 mg PO QAM Gabapentin 1,600 mg PO HS hydrOXYzine HCL [Atarax] 50 mg PO HS Folic Acid 1 mg PO DAILY Adalimumab [Humira Pen] 40 mg SQ WE Atorvastatin [Lipitor] 40 mg PO HS Latanoprost [Xalatan 0.005%] 1 drop BOTH EYES HS Levothyroxine Sodium [Synthroid] 224 mcg PO DAILY metFORMIN HCL [Glucophage] 1,000 mg PO AC-BID Methotrexate Sodium [Methotrexate] 10 mg PO WE traMADol HCL [Ultram] 50 mg PO Q6HR PRN PRN Reason: Pain Pilocarpine HCl [Salagen] 7.5 mg PO TID Nitroglycerin Sl Tabs [Nitrostat] 0.4 mg SUBLINGUAL Q5M PRN #30 tab PRN Reason: Chest Pain Verapamil Sr [Isoptin Sr] 240 mg PO DAILY #30 tablet.er Metoprolol Tartrate [Lopressor] 25 mg PO BID #60 tab Apixaban [Eliquis] 5 mg PO BID #60 tab Insulin NPH Hum/Reg Insulin Hm [NovoLIN 70-30 100 UNIT/ML VIAL] See Protocol SQ ACHS Discontinued Furosemide [Lasix] 40 mg PO DAILY #30 tablet Discharge Medication List Calcium Carbonate/Vitamin D3 [Calcium 600-Vit D3 400 Tablet] 1 tab PO BID [History] Carisoprodol [Soma] 350 mg PO ACHS 02/27/14 [History] Clotrimazole Cream [Lotrimin Cream] 1 applic TOPICAL DAILY PRN 02/27/14 [History ] Gabapentin [Neurontin] 1,200 mg PO TID 02/27/14 [History] Glucosamine Sulfate 1,500 mg PO DAILY 02/27/14 [History] HYDROcodone/APAP 10-325MG [[place] 10-325] 1 tab PO DAILY PRN 02/27/14 [History] Lansoprazole [Prevacid] 15 mg PO HS 02/27/14 [History] Multivitamins, Thera [Multivitamin (formulary)] 1 tab PO DAILY 02/27/14 [History ] predniSONE 4 mg PO QAM 02/27/14 [History] Gabapentin 1,600 mg PO HS 03/09/16 [History] Moexipril HCl [Univasc] 15 mg PO QAM 03/09/16 [History] hydrOXYzine HCL [Atarax] 50 mg PO HS 04/12/16 [History] Folic Acid 1 mg PO DAILY 08/13/16 [History] Adalimumab [Humira Pen] 40 mg SQ WE 10/17/16 [History] Atorvastatin [Lipitor] 40 mg PO HS 08/11/17 [History] Latanoprost [Xalatan 0.005%] 1 drop BOTH EYES HS 08/11/17 [History] Levothyroxine Sodium [Synthroid] 224 mcg PO DAILY 08/11/17 [History] Methotrexate Sodium [Methotrexate] 10 mg PO WE 08/11/17 [History] Pilocarpine HCl [Salagen] 7.5 mg PO TID 08/11/17 [History] metFORMIN HCL [Glucophage] 1,000 mg PO AC-BID 08/11/17 [History] traMADol HCL [Ultram] 50 mg PO Q6HR PRN 08/11/17 [History] Nitroglycerin Sl Tabs [Nitrostat] 0.4 mg SUBLINGUAL Q5M PRN #30 tab 08/13/17 [Rx ] Verapamil Sr [Isoptin Sr] 240 mg PO DAILY #30 tablet.er 08/13/17 [Rx] Apixaban [Eliquis] 5 mg PO BID #60 tab 08/30/17 [Rx] Metoprolol Tartrate [Lopressor] 25 mg PO BID #60 tab 08/30/17 [Rx] Insulin NPH Hum/Reg Insulin Hm [NovoLIN 70-30 100 UNIT/ML VIAL] See Protocol SQ ACHS 09/06/17 [History] Furosemide [Lasix] 40 mg PO BID@0900,1600 tab 09/10/17 [Rx] Follow up Appointment(s)/Referral(s): Jamshid George MD [STAFF PHYSICIAN] - 1 Week (Offices are closed at this time. Please call to make a follow up appointment) Nicholas Hart MD [Primary Care Provider] - 09/15/17 11:00 am (Monday) Patient Instructions/Handouts: Heart Failure (DC) Discharge Disposition: HOME SELF-CARE Pending Studies Pending Results: none
[2017-09-10 16:00] VITALS: BP 135/66; PULSE 66; TEMP 98.4
[2017-09-10] MEDS ORDERED: FUROSEMIDE 40 MG TAB PO SCH (16:00)
[2017-09-10 16:35] LABS: Glucose,Whole Blood 232 mg/dL (75-99)
[2017-09-13] MEDS ORDERED: METHOTREXATE SODIUM 2.5 MG TAB PO SCH (09:00)
== END 2017-09-10 17:40 | disposition home or self-care (01) | DRG 293 ==
LOC: EC 09:59 → 6SEL 13:53 → OBSVTOIN 09-08 12:46
PROVIDERS: ADMIT Family Medicine; ATTEND Family Medicine
DX: I11.0 Hypertensive heart disease with heart failure (principal); E03.9 Hypothyroidism, unspecified; E11.9 Type 2 diabetes mellitus without complications; Z68.36 Body mass index [BMI] 36.0-36.9, adult; Z71.3 Dietary counseling and surveillance; E78.5 Hyperlipidemia, unspecified; I25.10 Atherosclerotic heart disease of native coronary artery without angina pectoris; I34.0 Nonrheumatic mitral (valve) insufficiency; I48.2 Chronic atrial fibrillation; I50.33 Acute on chronic diastolic (congestive) heart failure; M06.9 Rheumatoid arthritis, unspecified; E66.01 Morbid (severe) obesity due to excess calories; M10.9 Gout, unspecified; M35.00 Sjogren syndrome, unspecified; Z96.642 Presence of left artificial hip joint; Z96.1 Presence of intraocular lens; M79.7 Fibromyalgia; Z79.01 Long term (current) use of anticoagulants; Z79.4 Long term (current) use of insulin; Z79.899 Other long term (current) drug therapy; Z85.820 Personal history of malignant melanoma of skin; Z87.891 Personal history of nicotine dependence; Z98.42 Cataract extraction status, left eye; Z98.41 Cataract extraction status, right eye; Z79.890 Hormone replacement therapy; Z88.1 Allergy status to other antibiotic agents; Z88.2 Allergy status to sulfonamides; Z91.048 Other nonmedicinal substance allergy status
CPT/HCPCS: 36415; 71046; 80053; 80061; 82550; 82553; 83880; 84484; 85025; 85610; 85730; 93005; 94760; 96374; 99285

== ENCOUNTER 2017-09-16 23:49 | Observation (INO) | payer MEDICARE ==
[2017-09-17] MEDS ORDERED: SODIUM CHLORIDE 0.9% 1,000 ML IV STA (00:28)
[2017-09-17 00:45] LABS: Basophils # (A) 0.1 k/uL (0-0.2); Basophils % (A) 1 %; Eosinophils # (A) 0.4 k/uL (0-0.7); Eosinophils % (A) 4 %; HCT 37.4 % (34.0-46.0); HGB 11.8 gm/dL (11.4-16.0); Hypochromasia Slight; Lymphocytes % (A) 33 %; MCH 28.7 pg (25.0-35.0); MCHC 31.7 g/dL (31.0-37.0); MCV 90.8 fL (80.0-100.0); Mean Platelet Volume 7.2; Monocytes # (A) 0.5 k/uL (0-1.0); Monocytes % (A) 5 %; Neutrophils # (A) 5.1 k/uL (1.3-7.7); Neutrophils % (A) 56 %; Platelet Count 222 k/uL (150-450); RBC 4.12 m/uL (3.80-5.40); RDW 15.5 % (11.5-15.5); WBC 9.1 k/uL (3.8-10.6)
[2017-09-17 00:54] LABS: ALT 33 U/L (9-52); AST 23 U/L (14-36); Albumin 3.5 g/dL (3.5-5.0); Alkaline Phosphatase 52 U/L (38-126); Anion Gap 7 mmol/L; Blood Urea Nitrogen 17 mg/dL (7-17); Calcium 9.7 mg/dL (8.4-10.2); Carbon Dioxide 30 mmol/L (22-30); Chloride 102 mmol/L (98-107); Glucose 149 mg/dL (74-99); Potassium 3.6 mmol/L (3.5-5.1); Sodium 139 mmol/L (137-145); Total Bilirubin 0.4 mg/dL (0.2-1.3); Total Protein 6.4 g/dL (6.3-8.2)
[2017-09-17 00:57] LABS: INR 1.3 (<1.2); Partial Thromboplastin Time 23.3 sec (22.0-30.0); Prothrombin Time 12.4 sec (9.0-12.0)
[2017-09-17 01:05] LABS: Creatine Kinase <20 U/L (30-135)
[2017-09-17 01:17] LABS: Creatine Kinase MB 0.5 ng/mL (0.0-2.4); Troponin I 0.022 ng/mL (0.000-0.034)
--- NOTE | 2017-09-17 01:17 | XR ---
EXAMINATION TYPE: XR chest 2V DATE OF EXAM: 09/17/2017 COMPARISON: 09/06/2017 HISTORY: Difficulty breathing TECHNIQUE: Frontal and lateral views of the chest are obtained. FINDINGS: Thoracic aorta is atheromatous. There is no overt heart failure. There is some coarsening of interstitial markings. There is no pleural effusion. Heart is slightly enlarged. IMPRESSION: Cardiomegaly. Mild pulmonary fibrosis. No gross heart failure. There is however some mil d pulmonary vascular redistribution similar to old exam. No significant change compared to old exam.
[2017-09-17] MEDS ORDERED: FUROSEMIDE 10 MG/ML 4 ML VIAL IV STA (02:00)
--- NOTE | 2017-09-17 02:06 | ED ---
SOB HPI - General Chief Complaint: Shortness of Breath Stated Complaint: ROSE Time Seen by Provider: 09/17/17 00:17 Source: patient, family Mode of arrival: wheelchair Limitations: no limitations - History of Present Illness Initial Comments: Going shortness of breath for about a month now got worse today she has been using her Lasix and that she is using aliquots she does have a history of atrial fibrillation she noticed her heart rate was in 120s earlier today. She denies any pleuritic chest pain or worsening of about chest pain with deep breaths she has no chest pain at this point. She has been compliant with her A[place]quist. Venous system is unremarkable otherwise - Related Data Home Medications Medication Instructions Recorded Confirmed Calcium Carbonate/Vitamin D3 1 tab PO BID 02/27/14 09/16/17 [Calcium 600-Vit D3 400 Tablet] Carisoprodol [Soma] 350 mg PO ACHS 02/27/14 09/16/17 Clotrimazole Cream [Lotrimin Cream] 1 applic TOPICAL DAILY PRN 02/27/14 09/16/17 Gabapentin [Neurontin] 1,200 mg PO TID 02/27/14 09/16/17 Glucosamine Sulfate 1,500 mg PO DAILY 02/27/14 09/16/17 HYDROcodone/APAP 10-325MG [Phillips 1 tab PO DAILY PRN 02/27/14 09/16/17 10-325] Lansoprazole [Prevacid] 15 mg PO HS 02/27/14 09/16/17 Multivitamins, Thera [Multivitamin 1 tab PO DAILY 02/27/14 09/16/17 (formulary)] predniSONE 4 mg PO QAM 02/27/14 09/16/17 Gabapentin 1,600 mg PO HS 03/09/16 09/16/17 Moexipril HCl [Univasc] 15 mg PO QAM 03/09/16 09/16/17 hydrOXYzine HCL [Atarax] 50 mg PO HS 04/12/16 09/16/17 Folic Acid 1 mg PO DAILY 08/13/16 09/16/17 Adalimumab [Humira Pen] 40 mg SQ WE 10/17/16 09/16/17 Atorvastatin [Lipitor] 40 mg PO HS 08/11/17 09/16/17 Latanoprost [Xalatan 0.005%] 1 drop BOTH EYES HS 08/11/17 09/16/17 Levothyroxine Sodium [Synthroid] 224 mcg PO DAILY 08/11/17 09/16/17 Methotrexate Sodium [Methotrexate] 10 mg PO WE 08/11/17 09/16/17 Pilocarpine HCl [Salagen] 7.5 mg PO TID 08/11/17 09/16/17 metFORMIN HCL [Glucophage] 1,000 mg PO AC-BID 08/11/17 09/16/17 traMADol HCL [Ultram] 50 mg PO Q6HR PRN 08/11/17 09/16/17 Insulin NPH Hum/Reg Insulin Hm See Protocol SQ ACHS 09/06/17 09/16/17 [NovoLIN 70-30 100 UNIT/ML VIAL] Previous Rx's Medication Instructions Recorded Nitroglycerin Sl Tabs [Nitrostat] 0.4 mg SUBLINGUAL Q5M PRN #30 tab 08/13/17 Verapamil Sr [Isoptin Sr] 240 mg PO DAILY #30 tablet.er 08/13/17 Apixaban [Eliquis] 5 mg PO BID #60 tab 08/30/17 Metoprolol Tartrate [Lopressor] 25 mg PO BID #60 tab 08/30/17 Furosemide [Lasix] 40 mg PO BID@0900,1600 tab 09/10/17 Allergies Allergy/AdvReac Type Severity Reaction Status Date / Time adhesive Allergy Rash/Hives Verified 09/16/17 23:53 cephalexin [From Keflex] Allergy Rash/Hives Verified 09/16/17 23:53 grass pollen Allergy Unknown Verified 09/16/17 23:53 mold Allergy Unknown Verified 09/16/17 23:53 Sulfa (Sulfonamide Allergy Rash/Hives Verified 09/16/17 23:53 Antibiotics) newspaper ink Allergy Unknown Uncoded 09/16/17 23:53 Review of Systems ROS Statement: Those systems with pertinent positive or pertinent negative responses have been documented in the HPI. ROS Other: All systems not noted in ROS Statement are negative. Past Medical History Past Medical History: Atrial Fibrillation, Cancer, Diabetes Mellitus, Hyperlipidemia, Hypertension, Musculoskeletal Disorder, Neurologic Disorder, Osteoarthritis (OA), Renal Disease, Rheumatoid Arthritis (RA), Skin Disorder, Thyroid Disorder Additional Past Medical History / Comment(s): IDDM type II, spinal stenosis, Reynauds, neurologic sjogrens BALANCE ISSUES, SINUS INFECTIONS, HAS HAD DOUBLE VISION ALL HER LIFE-when looks certain directions, hypothyroidism, acute kidney failure psoriasis, UTI s, melanoma skin cancer lt arm, bilateral elbow bursitis with MRSA and I&Ds/antibiotics.pt stated never had gout. History of Any Multi-Drug Resistant Organisms: MRSA Date of last positivie culture/infection: 02/27/14 MDRO Source:: Sputum Past Surgical History: Back Surgery, Breast Surgery, Heart Catheterization, Joint Replacement, Orthopedic Surgery Additional Past Surgical History / Comment(s): Bilateral cataracts with lens implants, arthroscopies to lt wrist, gualberto knees, gualberto ankles, gualberto hips, lt hip replacment and redone, L/R shoulder sxs, rt breast bx-benign, egd/colonoscopy, skin cancer removal L arm. Past Anesthesia/Blood Transfusion Reactions: No Reported Reaction Past Psychological History: No Psychological Hx Reported Smoking Status: Former smoker Past Alcohol Use History: None Reported Past Drug Use History: None Reported - Past Family History Mother Family Medical History: CVA/TIA Additional Family Medical History / Comment(s): RUPTURED BOWEL Father Family Medical History: Cancer, Pneumonia Additional Family Medical History / Comment(s): ASPIRATIVE PNA Sister(s) Additional Family Medical History / Comment(s): at age 34 with lupus General Exam - General Exam Comments Initial Comments: General: The patient is awake and alert, in no distress, and does not appear acutely ill. Skin: Skin is warm and dry and no rashes or lesions are noted. Eye: Pupils are equal, round and reactive to light, extra-ocular movements are intact; there is normal conjunctiva bilaterally. Ears, nose, mouth and throat: There are moist mucous membranes and no oral lesions. Neck: The neck is supple, there is no tenderness or JVD. Cardiovascular: There is a regular rate and rhythm. No murmur, rub or gallop is appreciated. Respiratory: To auscultation bilateral, noticed some atrial fibrillation and some PVCs Gastrointestinal: Soft, non-distended, non-tender abdomen without masses or organomegaly noted. There is no rebound or guarding present. Bowel sounds are unremarkable. Back: There is no tenderness to palpation in the midline. There is no obvious deformity. Musculoskeletal: Normal ROM, no tenderness, noticed some pedal edema as well as dependent edema Neurological: CN II-XII intact, Cranial nerves III through XII are intact. There are no obvious motor or sensory deficits. Coordination appears grossly intact. Speech is normal. Psychiatric: Cooperative, appropriate mood & affect, normal judgment. Limitations: no limitations Course Vital Signs 09/16/17 23:51 Temperature 97.7 F Pulse Rate 80 Respiratory 18 Rate Blood Pressure 121/82 O2 Sat by Pulse 94 L Oximetry EKG is atrial fibrillation noticed a few PVCs ventricular rate is 101 QRS duration is 106 QT/QTc is 382/495 review of this EKG does not reveal any STEMI. There are some few artifacts making it hard to interpret the case Upon reassessment noticed CBC is normal INR, troponin is normal EKG didn't reveal any STEMI does confirm atrial fibrillation BNP is 3726 chest x-ray is unremarkable compress metabolic panel is within normal range considering his shortness of breath and history of heart disease I would like to observe her for next 24 hours she also mentioned that heart rate was fast at home though he here it has been quite watch her with the 3 sets of cardiac markers cardiology consult and patient be admitted to Dr. Doyle Medical Decision Making - Lab Data Result diagrams: 09/17/17 00:25 09/17/17 00:25 Lab Results 09/17/17 09/17/17 09/17/17 Range/Units 00:25 00:25 00:25 WBC 9.1 (3.8-10.6) k/uL RBC 4.12 (3.80-5.40) m/uL Hgb 11.8 (11.4-16.0) gm/dL Hct 37.4 (34.0-46.0) % MCV 90.8 (80.0-100.0) fL MCH 28.7 (25.0-35.0) pg MCHC 31.7 (31.0-37.0) g/dL RDW 15.5 (11.5-15.5) % Plt Count 222 (150-450) k/uL Neutrophils % 56 % Lymphocytes % 33 % Monocytes % 5 % Eosinophils % 4 % Basophils % 1 % Neutrophils # 5.1 (1.3-7.7) k/uL Lymphocytes # 3.0 (1.0-4.8) k/uL Monocytes # 0.5 (0-1.0) k/uL Eosinophils # 0.4 (0-0.7) k/uL Basophils # 0.1 (0-0.2) k/uL Hypochromasia Slight PT (9.0-12.0) sec INR (<1.2) APTT (22.0-30.0) sec Sodium 139 (137-145) mmol/L Potassium 3.6 (3.5-5.1) mmol/L Chloride 102 (98-107) mmol/L Carbon Dioxide 30 (22-30) mmol/L Anion Gap 7 mmol/L BUN 17 (7-17) mg/dL Creatinine 0.60 (0.52-1.04) mg/dL Est GFR (CKD-EPI)AfAm >90 (>60 ml/min/1.73 sqM) Est GFR (CKD-EPI)NonAf 89 (>60 ml/min/1.73 sqM) Glucose 149 H (74-99) mg/dL Calcium 9.7 (8.4-10.2) mg/dL Total Bilirubin 0.4 (0.2-1.3) mg/dL AST 23 (14-36) U/L ALT 33 (9-52) U/L Alkaline Phosphatase 52 (38-126) U/L Total Creatine Kinase <20 L (30-135) U/L CK-MB (CK-2) 0.5 (0.0-2.4) ng/mL CK-MB (CK-2) Rel Index Troponin I 0.022 (0.000-0.034) ng/mL NT-Pro-B Natriuret Pep pg/mL Total Protein 6.4 (6.3-8.2) g/dL Albumin 3.5 (3.5-5.0) g/dL 09/17/17 09/17/17 Range/Units 00:25 00:25 WBC (3.8-10.6) k/uL RBC (3.80-5.40) m/uL Hgb (11.4-16.0) gm/dL Hct (34.0-46.0) % MCV (80.0-100.0) fL MCH (25.0-35.0) pg MCHC (31.0-37.0) g/dL RDW (11.5-15.5) % Plt Count (150-450) k/uL Neutrophils % % Lymphocytes % % Monocytes % % Eosinophils % % Basophils % % Neutrophils # (1.3-7.7) k/uL Lymphocytes # (1.0-4.8) k/uL Monocytes # (0-1.0) k/uL Eosinophils # (0-0.7) k/uL Basophils # (0-0.2) k/uL Hypochromasia PT 12.4 H (9.0-12.0) sec INR 1.3 H (<1.2) APTT 23.3 (22.0-30.0) sec Sodium (137-145) mmol/L Potassium (3.5-5.1) mmol/L Chloride (98-107) mmol/L Carbon Dioxide (22-30) mmol/L Anion Gap mmol/L BUN (7-17) mg/dL Creatinine (0.52-1.04) mg/dL Est GFR (CKD-EPI)AfAm (>60 ml/min/1.73 sqM) Est GFR (CKD-EPI)NonAf (>60 ml/min/1.73 sqM) Glucose (74-99) mg/dL Calcium (8.4-10.2) mg/dL Total Bilirubin (0.2-1.3) mg/dL AST (14-36) U/L ALT (9-52) U/L Alkaline Phosphatase (38-126) U/L Total Creatine Kinase (30-135) U/L CK-MB (CK-2) (0.0-2.4) ng/mL CK-MB (CK-2) Rel Index Troponin I (0.000-0.034) ng/mL NT-Pro-B Natriuret Pep 3720 pg/mL Total Protein (6.3-8.2) g/dL Albumin (3.5-5.0) g/dL Disposition Clinical Impression: Atrial fibrillation, Dyspnea Disposition: ADMITTED IP TO THIS HOSP Referrals: Nicholas Hart MD [Primary Care Provider] - 1-2 days
[2017-09-17] MEDS ORDERED: MORPHINE SULFATE 4 MG/ML SYRINGE IV PRN (02:37)
[2017-09-17] MEDS ORDERED: NITROGLYCERIN SL TABS 0.4 MG TAB SUBLINGUAL PRN ×2 (02:37→02:42)
[2017-09-17] MEDS ORDERED: traMADol 50 MG TAB PO PRN (02:42)
[2017-09-17] MEDS ORDERED: HYDROcodone/APAP 10-325MG 1 EACH TAB PO PRN (02:42)
[2017-09-17] MEDS ORDERED: CLOTRIMAZOLE 1% CREAM 15 GM TUBE TOPICAL PRN (02:42)
[2017-09-17 03:40] VITALS: BMI 36.1
[2017-09-17] MEDS ORDERED: LEVOTHYROXINE 112 MCG TAB PO SCH (06:30)
[2017-09-17] MEDS: CARISOPRODOL 350 MG TAB PO SCH ×2 (06:41→12:39)
[2017-09-17 06:49] LABS: Glucose,Whole Blood 100 mg/dL (75-99)
[2017-09-17] MEDS ORDERED: metFORMIN 500 MG TAB PO SCH (07:30)
[2017-09-17 07:32] LABS: Creatine Kinase MB 0.4 ng/mL (0.0-2.4); Troponin I 0.021 ng/mL (0.000-0.034)
[2017-09-17 08:45] VITALS: RESP 16; TEMP 97.8
[2017-09-17] MEDS ORDERED: predniSONE 1 MG TAB PO SCH (09:00)
[2017-09-17] MEDS ORDERED: OSCAL PO SCH (09:00)
[2017-09-17] MEDS ORDERED: VERAPAMIL SR 240 MG TABLET.ER PO SCH (09:00)
[2017-09-17] MEDS ORDERED: PILOCARPINE 5 MG TAB PO SCH (09:00)
[2017-09-17] MEDS ORDERED: GABAPENTIN 400 MG CAP PO SCH ×2 (09:00→21:00)
[2017-09-17] MEDS ORDERED: GLUCOSAMINE SULFATE 1500 MG PO SCH (09:00)
[2017-09-17] MEDS ORDERED: LISINOPRIL 20 MG TAB PO SCH (09:00)
[2017-09-17] MEDS: NEURONTIN 800 MG PO SCH ×2 (09:00→12:39)
[2017-09-17] MEDS ORDERED: NEURONTIN 800 MG PO SCH ×3 (09:00→21:00)
[2017-09-17] MEDS ORDERED: METOPROLOL TARTRATE 25 MG TAB PO SCH (09:00)
[2017-09-17] MEDS ORDERED: APIXABAN 5 MG TAB PO SCH (09:00)
[2017-09-17] MEDS ORDERED: FUROSEMIDE 40 MG TAB PO SCH (09:00)
[2017-09-17 11:32] VITALS: BP 105/64; PULSE 73
--- NOTE | 2017-09-17 11:37 | CONS ---
CONSULTATION ATTENDING PHYSICIAN: Dr. Hart Mrs. Lr is a 77-year-old female with known history of atrial fibrillation, hypertension, who presented with symptoms of dyspnea and palpitations. She was in the hospital recently with CHF with diastolic dysfunction and preserved systolic function. She has underwent cardiac catheterization recently and she has mild nonobstructive coronary artery disease. She has run out of her verapamil for a few days and she has noted that her heart rate was going faster and she was becoming more dyspneic. She came into the emergency room and received 1 dose of IV Lasix. She is feeling well today. She feels that her breathing is back to her baseline. She denies any chest pain. She denies any syncope. No PND, orthopnea. No peripheral edema. Her coronary risk factors are remarkable for history of hypertension and diabetes. She is nonsmoker. She is hyperlipidemic. MEDICATION: Include Ultram, prednisone, metformin 1 g twice a day, hydroxyzine, verapamil SR 240 mg daily, pilocarpine, Univasc 15 mg daily, metoprolol tartrate 25 mg twice a day, methotrexate, Xalatan, Prevacid, insulin, Neurontin, Lasix 40 mg twice a day, Lipitor 40 mg daily, Eliquis 5 mg twice a day. REVIEW OF SYSTEMS: RESPIRATORY system: She had dyspnea on exertion. No recent wheezing or cough. GI system: No recent GI bleeding. No peptic ulcer disease. system: No dysuria or hematuria. Nervous system: No history of stroke or seizures. Musculoskeletal: She has history of rheumatoid arthritis. PHYSICAL EXAMINATION: 77-year-old female, alert, oriented, in no apparent distress. Blood pressure 133/80 with a heart rate in the 180s. HEAD: Normocephalic. Eyes: Sclerae anicteric. Neck: Good upstroke. No bruit. No jugular venous distention. Lungs clear to auscultation. Heart irregularly irregular S1, S2. No S3 with systolic murmur heard at the base. No diastolic murmur. No rub. ABDOMEN: Soft, nontender, obese. Positive bowel sounds. No organomegaly. Extremities: Trace edema. LAB DATA: Lab data revealed EKG, atrial fibrillation with right axis deviation. Occasional wide- complex rhythm probable aberrantly conducted with nonspecific ST-T wave changes. Troponin 0.022, 0.021, BUN and creatinine 17 and 0.6, potassium 3.6. Her NT proBNP 3720. Chest x-ray shows no acute changes. IMPRESSION: 1. Atrial fibrillation with prior episode of rapid ventricular response. Improved after taking her verapamil. 2. Symptoms of dyspnea with known history of congestive heart failure with preserved systolic function. 3. Hypertension. 4. Hyperlipidemia. 5. Diabetes mellitus. 6. Mild nonobstructive coronary disease. RECOMMENDATION: From the cardiac standpoint, she is stable. I do not see any significant fluid overload at this time. She should be able to be discharged home on her present medical regimen and follow up as an outpatient with Dr. George. Thank you for this consult. We will follow with you. RAFA / MANNN: [id number] /
[2017-09-17 11:52] LABS: Glucose,Whole Blood 93 mg/dL (75-99)
[2017-09-17] MEDS ORDERED: MULTIVITAMINS, THERA 1 EACH TAB PO SCH (12:00)
[2017-09-17] MEDS ORDERED: FOLIC ACID 1 MG TAB PO SCH (12:00)
[2017-09-17 13:11] LABS: Creatine Kinase MB 0.4 ng/mL (0.0-2.4); Troponin I 0.018 ng/mL (0.000-0.034)
--- NOTE | 2017-09-17 15:49 | P.DS ---
Providers Date of admission: 09/17/17 02:37 Attending physician: Arthur Doyle Consults: 09/17/17 02:37 Consult Physician Urgent Consulting Provider: Main Kitchen Consult Reason/Comments: Atrial fibrillation, dyspnea Do you want consulting provider notified?: Yes Primary care physician: Nicholas Hart [facility] Course: Please refer to my HPI Plan - Discharge Summary Discharge Rx Participant: Yes New Discharge Prescriptions: Continue Carisoprodol [Soma] 350 mg PO ACHS HYDROcodone/APAP 10-325MG [Arp 10-325] 1 tab PO DAILY PRN PRN Reason: Pain Gabapentin [Neurontin] 1,200 mg PO TID Multivitamins, Thera [Multivitamin (formulary)] 1 tab PO DAILY Glucosamine Sulfate 1,500 mg PO DAILY Lansoprazole [Prevacid] 15 mg PO HS Clotrimazole Cream [Lotrimin Cream] 1 applic TOPICAL DAILY PRN PRN Reason: Rash Calcium Carbonate/Vitamin D3 [Calcium 600-Vit D3 400 Tablet] 1 tab PO BID predniSONE 4 mg PO QAM Moexipril HCl [Univasc] 15 mg PO QAM Gabapentin 1,600 mg PO HS hydrOXYzine HCL [Atarax] 50 mg PO HS Folic Acid 1 mg PO DAILY Adalimumab [Humira Pen] 40 mg SQ WE Atorvastatin [Lipitor] 40 mg PO HS Latanoprost [Xalatan 0.005%] 1 drop BOTH EYES HS Levothyroxine Sodium [Synthroid] 224 mcg PO DAILY metFORMIN HCL [Glucophage] 1,000 mg PO AC-BID Methotrexate Sodium [Methotrexate] 10 mg PO WE traMADol HCL [Ultram] 50 mg PO Q6HR PRN PRN Reason: Pain Pilocarpine HCl [Salagen] 7.5 mg PO TID Nitroglycerin Sl Tabs [Nitrostat] 0.4 mg SUBLINGUAL Q5M PRN #30 tab PRN Reason: Chest Pain Verapamil Sr [Isoptin Sr] 240 mg PO DAILY #30 tablet.er Metoprolol Tartrate [Lopressor] 25 mg PO BID #60 tab Apixaban [Eliquis] 5 mg PO BID #60 tab Insulin NPH Hum/Reg Insulin Hm [NovoLIN 70-30 100 UNIT/ML VIAL] See Protocol SQ ACHS Furosemide [Lasix] 40 mg PO BID@0900,1600 tab Discharge Medication List Calcium Carbonate/Vitamin D3 [Calcium 600-Vit D3 400 Tablet] 1 tab PO BID [History] Carisoprodol [Soma] 350 mg PO ACHS 02/27/14 [History] Clotrimazole Cream [Lotrimin Cream] 1 applic TOPICAL DAILY PRN 02/27/14 [History ] Gabapentin [Neurontin] 1,200 mg PO TID 02/27/14 [History] Glucosamine Sulfate 1,500 mg PO DAILY 02/27/14 [History] HYDROcodone/APAP 10-325MG [Arp 10-325] 1 tab PO DAILY PRN 02/27/14 [History] Lansoprazole [Prevacid] 15 mg PO HS 02/27/14 [History] Multivitamins, Thera [Multivitamin (formulary)] 1 tab PO DAILY 02/27/14 [History ] predniSONE 4 mg PO QAM 02/27/14 [History] Gabapentin 1,600 mg PO HS 03/09/16 [History] Moexipril HCl [Univasc] 15 mg PO QAM 03/09/16 [History] hydrOXYzine HCL [Atarax] 50 mg PO HS 04/12/16 [History] Folic Acid 1 mg PO DAILY 08/13/16 [History] Adalimumab [Humira Pen] 40 mg SQ WE 10/17/16 [History] Atorvastatin [Lipitor] 40 mg PO HS 08/11/17 [History] Latanoprost [Xalatan 0.005%] 1 drop BOTH EYES HS 08/11/17 [History] Levothyroxine Sodium [Synthroid] 224 mcg PO DAILY 08/11/17 [History] Methotrexate Sodium [Methotrexate] 10 mg PO WE 08/11/17 [History] Pilocarpine HCl [Salagen] 7.5 mg PO TID 08/11/17 [History] metFORMIN HCL [Glucophage] 1,000 mg PO AC-BID 08/11/17 [History] traMADol HCL [Ultram] 50 mg PO Q6HR PRN 08/11/17 [History] Nitroglycerin Sl Tabs [Nitrostat] 0.4 mg SUBLINGUAL Q5M PRN #30 tab 08/13/17 [Rx ] Verapamil Sr [Isoptin Sr] 240 mg PO DAILY #30 tablet.er 08/13/17 [Rx] Apixaban [Eliquis] 5 mg PO BID #60 tab 08/30/17 [Rx] Metoprolol Tartrate [Lopressor] 25 mg PO BID #60 tab 08/30/17 [Rx] Insulin NPH Hum/Reg Insulin Hm [NovoLIN 70-30 100 UNIT/ML VIAL] See Protocol SQ ACHS 09/06/17 [History] Furosemide [Lasix] 40 mg PO BID@0900,1600 tab 09/10/17 [Rx] Follow up Appointment(s)/Referral(s): Jamshid George MD [STAFF PHYSICIAN] - 1 Week Nicholas Hart MD [Primary Care Provider] - 3 Days Patient Instructions/Handouts: A-fib (Atrial Fibrillation) (DC), Dyspnea (GEN) Discharge Disposition: HOME SELF-CARE
--- NOTE | 2017-09-17 15:49 | P.HPIM ---
History of Present Illness 77-year-old pleasant female came in with comments of shortness of breath and felt like patient is having water in her lungs because of which patient came to ER. Before coming to ER, patient took verapamil which was a recently refilled, and he misses some doses and felt like she is going into atrial fibrillation because of which she ended up taking verapamil after which her symptoms completely resolved patient came to ER anyway patient any significant orthopnea PND chest x-ray did not show any increased pulmonary edema patient is rate controlled now with the the previous regimen she is on. Patient was evaluated cardiology and they cleared her for discharge patient is being discharged today. Patient had fever chills nausea vomiting abdominal pain. Review of Systems REVIEW OF SYSTEMS: CONSTITUTIONAL: No fever, no malaise, no fatigue. HEENT: No recent visual problems or hearing problems. Denied any sore throat. CARDIOVASCULAR: No chest pain, orthopnea, PND, no syncope. PULMONARY: no cough, no hemoptysis. GASTROINTESTINAL: No diarrhea, no nausea, no vomiting, no abdominal pain. Normoactive bowel sounds. NEUROLOGICAL: No headaches, no weakness, no numbness. HEMATOLOGICAL: Denies any bleeding or petechiae. GENITOURINARY: Denies any burning micturition, frequency, or urgency. MUSCULOSKELETAL/RHEUMATOLOGICAL: Denies any joint pain, swelling, or any muscle pain. ENDOCRINE: Denies any polyuria or polydipsia. The rest of the 14-point review of systems is negative. Past Medical History Past Medical History: Atrial Fibrillation, Cancer, Diabetes Mellitus, Hyperlipidemia, Hypertension, Musculoskeletal Disorder, Neurologic Disorder, Osteoarthritis (OA), Renal Disease, Rheumatoid Arthritis (RA), Skin Disorder, Thyroid Disorder Additional Past Medical History / Comment(s): IDDM type II, spinal stenosis, Reynauds, neurologic sjogrens BALANCE ISSUES, SINUS INFECTIONS, HAS HAD DOUBLE VISION ALL HER LIFE-when looks certain directions, hypothyroidism, acute kidney failure psoriasis, UTI s, melanoma skin cancer lt arm, bilateral elbow bursitis with MRSA and I&Ds/antibiotics.pt stated never had gout. History of Any Multi-Drug Resistant Organisms: MRSA Date of last positivie culture/infection: 02/27/14 MDRO Source:: Sputum Past Surgical History: Back Surgery, Breast Surgery, Heart Catheterization, Joint Replacement, Orthopedic Surgery Additional Past Surgical History / Comment(s): Bilateral cataracts with lens implants, arthroscopies to lt wrist, gualberto knees, gualberto ankles, gualberto hips, lt hip replacment and redone, L/R shoulder sxs, rt breast bx-benign, egd/colonoscopy, skin cancer removal L arm. Past Anesthesia/Blood Transfusion Reactions: No Reported Reaction Past Psychological History: No Psychological Hx Reported Additional Psychological History / Comment(s): Pt resides with her spouse. pt drives. No home care.uses cane when up Smoking Status: Former smoker Past Alcohol Use History: None Reported Additional Past Alcohol Use History / Comment(s): Pt started smoking in college and QUIT SMOKING in 1969 Past Drug Use History: None Reported - Past Family History Mother Family Medical History: CVA/TIA Additional Family Medical History / Comment(s): RUPTURED BOWEL Father Family Medical History: Cancer, Pneumonia Additional Family Medical History / Comment(s): ASPIRATIVE PNA Sister(s) Additional Family Medical History / Comment(s): at age 34 with lupus Medications and Allergies Home Medications Medication Instructions Recorded Confirmed Type Calcium Carbonate/Vitamin D3 1 tab PO BID 02/27/14 09/17/17 History [Calcium 600-Vit D3 400 Tablet] Carisoprodol [Soma] 350 mg PO ACHS 02/27/14 09/17/17 History Clotrimazole Cream [Lotrimin Cream] 1 applic TOPICAL DAILY PRN 02/27/14 History Gabapentin [Neurontin] 1,200 mg PO TID 02/27/14 09/17/17 History Glucosamine Sulfate 1,500 mg PO DAILY 02/27/14 09/17/17 History HYDROcodone/APAP 10-325MG [Berwick 1 tab PO DAILY PRN 02/27/14 09/17/17 History 10-325] Lansoprazole [Prevacid] 15 mg PO HS 02/27/14 09/17/17 History Multivitamins, Thera [Multivitamin 1 tab PO DAILY 02/27/14 09/17/17 History (formulary)] predniSONE 4 mg PO QAM 02/27/14 09/17/17 History Gabapentin 1,600 mg PO HS 03/09/16 09/17/17 History Moexipril HCl [Univasc] 15 mg PO QAM 03/09/16 09/17/17 History hydrOXYzine HCL [Atarax] 50 mg PO HS 04/12/16 09/17/17 History Folic Acid 1 mg PO DAILY 08/13/16 09/17/17 History Adalimumab [Humira Pen] 40 mg SQ WE 10/17/16 09/17/17 History Atorvastatin [Lipitor] 40 mg PO HS 08/11/17 09/17/17 History Latanoprost [Xalatan 0.005%] 1 drop BOTH EYES HS 08/11/17 09/17/17 History Levothyroxine Sodium [Synthroid] 224 mcg PO DAILY 08/11/17 09/17/17 History Methotrexate Sodium [Methotrexate] 10 mg PO WE 08/11/17 09/17/17 History Pilocarpine HCl [Salagen] 7.5 mg PO TID 08/11/17 09/17/17 History metFORMIN HCL [Glucophage] 1,000 mg PO AC-BID 08/11/17 09/17/17 History traMADol HCL [Ultram] 50 mg PO Q6HR PRN 08/11/17 09/17/17 History Nitroglycerin Sl Tabs [Nitrostat] 0.4 mg SUBLINGUAL Q5M PRN #30 tab 08/13/17 Rx Verapamil Sr [Isoptin Sr] 240 mg PO DAILY #30 tablet.er 08/13/17 09/17/17 Rx Apixaban [Eliquis] 5 mg PO BID #60 tab 08/30/17 09/17/17 Rx Metoprolol Tartrate [Lopressor] 25 mg PO BID #60 tab 08/30/17 09/17/17 Rx Insulin NPH Hum/Reg Insulin Hm See Protocol SQ ACHS 09/06/17 09/17/17 History [NovoLIN 70-30 100 UNIT/ML VIAL] Furosemide [Lasix] 40 mg PO BID@0900,1600 tab 09/10/17 09/17/17 Rx Allergies Allergy/AdvReac Type Severity Reaction Status Date / Time adhesive Allergy Rash/Hives Verified 09/17/17 12:14 cephalexin [From Keflex] Allergy Rash/Hives Verified 09/17/17 12:14 grass pollen Allergy Unknown Verified 09/17/17 12:14 mold Allergy Unknown Verified 09/17/17 12:14 Sulfa (Sulfonamide Allergy Rash/Hives Verified 09/17/17 12:14 Antibiotics) newspaper ink Allergy Unknown Uncoded 07/21/18 23:53 Physical Exam Vitals: Vital Signs Temp Pulse Pulse Resp BP BP Pulse Ox 09/17/17 11:33 16 09/17/17 11:31 73 16 105/64 91 L 09/17/17 08:30 97.8 F 80 16 133/85 95 09/17/17 04:00 93 18 09/17/17 03:38 97.5 F L 93 18 147/93 100 09/17/17 02:48 93 16 146/74 96 09/16/17 23:51 97.7 F 80 18 121/82 94 L Intake and Output 09/17/17 09/17/17 09/17/17 06:59 14:59 22:59 Intake Total 240 Balance 240 Intake: Oral 240 Other: Voiding Method Toilet Toilet # Voids 1 2 Weight 130.5 kg PHYSICAL EXAMINATION: GENERAL: The patient is alert and oriented x3, not in any acute distress. Well developed, well nourished. HEENT: Pupils are round and equally reacting to light. EOMI. No scleral icterus. No conjunctival pallor. Normocephalic, atraumatic. No pharyngeal erythema. No thyromegaly. CARDIOVASCULAR: S1 and S2 present. No murmurs, rubs, or gallops. PULMONARY: Chest is clear to auscultation, no wheezing or crackles. ABDOMEN: Soft, nontender, nondistended, normoactive bowel sounds. No palpable organomegaly. MUSCULOSKELETAL: No joint swelling or deformity. EXTREMITIES: No cyanosis, clubbing, or pedal edema. NEUROLOGICAL: Gross neurological examination did not reveal any focal deficits. SKIN: No rashes. Results CBC & Chem 7: 09/17/17 00:25 09/17/17 00:25 Labs: Abnormal Lab Results - Last 24 Hours (Table) 09/17/17 09/17/17 09/17/17 Range/Units 00:25 00:25 00:25 PT 12.4 H (9.0-12.0) sec INR 1.3 H (<1.2) Glucose 149 H (74-99) mg/dL POC Glucose (mg/dL) (75-99) mg/dL Total Creatine Kinase <20 L (30-135) U/L 09/17/17 09/17/17 09/17/17 Range/Units 06:37 06:40 12:20 PT (9.0-12.0) sec INR (<1.2) Glucose (74-99) mg/dL POC Glucose (mg/dL) 100 H (75-99) mg/dL Total Creatine Kinase 20 L 23 L (30-135) U/L Thrombosis Risk Factor Assmnt - Choose All That Apply Each Risk Factor Represents 3 Points: Age 75 years or older Thrombosis Risk Factor Assessment Total Risk Factor Score: 3 Thrombosis Risk Factor Assessment Level: Moderate Risk Assessment and Plan Plan: -Atrial fibrillation, episode of rapid and regular rate improved with verapamil no further changes are being made patient is to be discharged today -Dyspnea secondary to A. fib patient is not in CHF exacerbation patient has can start failure with preserved ejection fraction of chronic diastolic dysfunction does not have any acute exacerbation -Hypertension -Hyperlipidemia -Type 2 diabetes mellitus -Coronary artery disease history nonobstructive -Hypothyroidism -History of scleroderma -Rheumatoid arthritis -Osteoarthritis Patient had multiple medical problems no changes are being made in her medication list for above-mentioned chronic medical problems
[2017-09-17] MEDS ORDERED: PANTOPRAZOLE 40 MG TABLET PO SCH (21:00)
[2017-09-17] MEDS ORDERED: hydrOXYzine HCL 25 MG TAB PO SCH (21:00)
[2017-09-17] MEDS ORDERED: ATORVASTATIN 40 MG TAB PO SCH (21:00)
[2017-09-17] MEDS ORDERED: LATANOPROST 0.005% OPHTH DROPS 2.5 ML BTL BOTH EYES SCH (21:00)
[2017-09-20] MEDS ORDERED: METHOTREXATE SODIUM 2.5 MG TAB PO SCH (09:00)
[2017-09-20] MEDS ORDERED: ADALIMUMAB 80 MG/1.6 ML KIT SQ SCH (09:00)
== END 2017-09-17 14:31 | disposition home or self-care (01) ==
LOC: EC 23:49 → 6SEL 09-17 02:37
PROVIDERS: ADMIT Hospitalist; ATTEND Hospitalist
DX: I48.91 Unspecified atrial fibrillation (principal); I11.0 Hypertensive heart disease with heart failure; I50.32 Chronic diastolic (congestive) heart failure; E78.5 Hyperlipidemia, unspecified; E11.9 Type 2 diabetes mellitus without complications; I25.10 Atherosclerotic heart disease of native coronary artery without angina pectoris; E03.9 Hypothyroidism, unspecified; M48.00 Spinal stenosis, site unspecified; M35.00 Sjogren syndrome, unspecified; H53.2 Diplopia; I73.00 Raynaud's syndrome without gangrene; M06.9 Rheumatoid arthritis, unspecified; M19.90 Unspecified osteoarthritis, unspecified site; Z79.01 Long term (current) use of anticoagulants; Z79.890 Hormone replacement therapy; Z79.4 Long term (current) use of insulin; Z79.899 Other long term (current) drug therapy; Z88.1 Allergy status to other antibiotic agents; Z88.2 Allergy status to sulfonamides; Z91.048 Other nonmedicinal substance allergy status; Z86.14 Personal history of Methicillin resistant Staphylococcus aureus infection; Z98.42 Cataract extraction status, left eye; Z98.41 Cataract extraction status, right eye; Z96.1 Presence of intraocular lens; Z96.642 Presence of left artificial hip joint; Z87.891 Personal history of nicotine dependence; Z85.820 Personal history of malignant melanoma of skin; Z82.3 Family history of stroke; Z82.5 Family history of asthma and other chronic lower respiratory diseases; Z83.49 Family history of other endocrine, nutritional and metabolic diseases; Z80.9 Family history of malignant neoplasm, unspecified
CPT/HCPCS: 99285 ×2; 96374 ×2; 36415; 83880; 80053; 82550; 82553; 84484; 85025; 85610; 85730; 71046; G0378; J1940; J7512

== ENCOUNTER → 2017-10-17 | Outpatient (CLI) | payer MEDICARE ==
[2017-10-17 10:09] LABS: Anisocytosis Slight; HCT 39.2 % (34.0-46.0); HGB 12.1 gm/dL (11.4-16.0); Hypochromasia Moderate; MCH 28.4 pg (25.0-35.0); MCHC 30.9 g/dL (31.0-37.0); MCV 91.9 fL (80.0-100.0); Platelet Count 198 k/uL (150-450); RBC 4.27 m/uL (3.80-5.40); RDW 16.1 % (11.5-15.5); WBC 5.2 k/uL (3.8-10.6)
[2017-10-17 10:15] LABS: Anion Gap 8 mmol/L; Blood Urea Nitrogen 13 mg/dL (7-17); Carbon Dioxide 35 mmol/L (22-30); Chloride 98 mmol/L (98-107); Potassium 3.8 mmol/L (3.5-5.1); Sodium 141 mmol/L (137-145)
== END | disposition home or self-care (01) ==
LOC: LABPAT 09:43
PROVIDERS: ATTEND Internal Medicine Interventional Cardiology
DX: Z01.812 Encounter for preprocedural laboratory examination (principal)
CPT/HCPCS: 36415; 80051; 82565; 84520; 85027

== ENCOUNTER → 2017-10-20 | Day surgery (SDC) | payer MEDICARE ==
[2017-10-17 11:48] VITALS: BMI 34.9
[~2017-10-20] MED LIST changes: +BENZOCAINE SPRAY 1 CAN MUCOUS MEM ONE; +LACTATED RINGERS 1,000 ML IV SCH; +LIDOCAINE 1% 20 ML VIAL (10MG/ML) FOR IV START INTRADERMA PRN; +MIDAZOLAM 2 MG/2 ML VIAL IV PRN; +PROPOFOL 10 MG/ML 20 ML VIAL IV ONE; -REGADENOSON 0.4 MG/5 ML SYRINGE IV ONE; +SODIUM CHLORIDE 0.9% 1,000 ML IV ONE
[2017-10-20 07:09] LABS: Glucose,Whole Blood 194 mg/dL (75-99)
--- NOTE | 2017-10-20 07:59 | ECHOT ---
TRANSESOPHAGEAL ECHOCARDIOGRAM DATE OF SERVICE: October 20, 2017 PERFORMING PHYSICIAN: Jamshid George MD. PROCEDURE PERFORMED: Transesophageal echocardiogram. INDICATION: This is a pleasant 77-year-old female patient with history of paroxysmal atrial fibrillation, who was experiencing shortness of breath and she was found to be in A. fib. COMPLICATION: None. LEVEL OF SEDATION: Deep sedation was performed using propofol. PROCEDURE DESCRIPTION: After obtaining an informed consent, explaining the procedure, benefits, risks, complications and alternatives, the patient was brought to the transesophageal echocardiogram suite. A pulse oximetry and heart rate monitors were attached to the patient prior to the procedure. The patient's throat was sprayed using lidocaine locally. Following that, the patient was turned into left lateral position. A bite guard was placed and the patient was then sedated with the above doses of Versed and fentanyl in divided doses. Following that, the transesophageal echocardiogram probe was advanced through the bite guard into the mid esophagus where 2-D echocardiogram images as well as color Doppler images of various cardiac structures were obtained. We evaluated the interatrial septum using 2-D echocardiogram, color Doppler, and contrast study. The procedure was completed. There were no complications. FINDINGS: The left ventricular dimension and systolic function appeared to be on the low normal of limits. The ejection fraction appeared to be in the range of 50%. The right ventricle appeared to be within normal limits for dimension. The left atrium is mildly dilated and left atrial appendage appeared to be free from any thrombus. The interatrial septum appeared to be intact. The aortic valve is trileaflet valve without stenosis with mild insufficiency. The mitral valve seems to be thickened and calcified with evidence of mild mitral stenosis and moderate insufficiency. Normal tricuspid valve and pulmonic valve. CONCLUSION: 1. Normal left atrial appendage without any evidence of thrombus. 2. Intact interatrial septum without any evidence of shunt. 3. Low normal left ventricular systolic function with ejection fraction of 50%. 4. Trileaflet aortic valve without stenosis with mild insufficiency. 5. Thickened mitral valve leaflets with mild stenosis and moderate to severe mitral insufficiency. 6. Normal tricuspid valve and pulmonic valve. 7. Normal aortic root dimension. 8. No evidence of pericardial effusion. MMODL / IJN: [id number] /
[2017-10-20 08:05] VITALS: RESP 16
--- NOTE | 2017-10-20 08:08 | CE ---
CARDIAC ELECTROPHYSIOLOGY REPORT CARDIOVERSION DATE OF SERVICE: October 20, 2017. PERFORMING PHYSICIAN: Jamshid George MD. PROCEDURE PERFORMED: Cardioversion. INDICATION: This is a pleasant 77-year-old female patient who was diagnosed with A. fib and she was brought today for cardioversion. She was symptomatic with A. fib with shortness of breath. COMPLICATION: None. LEVEL OF SEDATION: Deep sedation was performed using propofol. PROCEDURE DESCRIPTION: After transesophageal echocardiogram was performed and left atrial appendage as well as intracardiac thrombus was ruled out, we did cardioversion. The patient converted from atrial fibrillation to normal sinus mechanism using 200 joules on first attempt. CONCLUSION: Successful cardioversion of atrial fibrillation to normal sinus mechanism using 200 joules on first attempt. MMODL / IJN: [id number] /
[2017-10-20 08:40] VITALS: TEMP 98
[2017-10-20 09:19] VITALS: BP 109/56; PULSE 79
== END | disposition home or self-care (01) ==
LOC: CATHCVL 06:30
PROVIDERS: ATTEND Internal Medicine Interventional Cardiology
DX: I48.0 Paroxysmal atrial fibrillation (principal); J44.9 Chronic obstructive pulmonary disease, unspecified; E78.00 Pure hypercholesterolemia, unspecified; I11.0 Hypertensive heart disease with heart failure; I50.32 Chronic diastolic (congestive) heart failure; E11.9 Type 2 diabetes mellitus without complications; E66.9 Obesity, unspecified; M05.10 Rheumatoid lung disease with rheumatoid arthritis of unspecified site; I34.0 Nonrheumatic mitral (valve) insufficiency; Z86.73 Personal history of transient ischemic attack (TIA), and cerebral infarction without residual deficits; Z79.82 Long term (current) use of aspirin; Z79.4 Long term (current) use of insulin; Z79.899 Other long term (current) drug therapy; Z79.891 Long term (current) use of opiate analgesic; Z79.890 Hormone replacement therapy
CPT/HCPCS: 93312; 93320; 93325; 92960; J2250; J2704

== ENCOUNTER → 2017-11-28 | Outpatient (CLI) | payer MEDICARE ==
[2017-11-28 13:30] LABS: Blood Urea Nitrogen 13 mg/dL (7-17)
--- NOTE | 2017-11-28 16:05 | CT ---
EXAMINATION TYPE: CT abdomen pelvis w con DATE OF EXAM: 11/28/2017 COMPARISON: 03/24/2011 CT lower extremity and CT chest 08/11/2017 HISTORY: 77-year-old female malignant melanoma, observation for metastases. Abnormal chest CT per pat ient TECHNIQUE: Contiguous axial scanning of the abdomen and pelvis following administration of 100 ml Iso ron 300 IV contrast. Delayed images through the kidneys and coronal/sagittal reconstructions perform ed. CT DLP: 2723.5 mGycm Automated exposure control for dose reduction was used. FINDINGS: Heart borderline enlarged with dense mitral annular calcifications and coronary vessel calcifications . No pericardial effusion. Interval resolution of the patient's previous small pleural effusions. Liver enlarged measuring 22.7 cm craniocaudal. No focal lesion. Gallbladder, adrenal glands, spleen, and pancreas show no gross abnormality. Moderate atherosclerotic calcifications within the abdominal aorta and proximal iliac arteries with a fusiform ectasia infrarenal abdominal aorta 2.6 cm. There is a subcentimeter hypodensity lower pole right kidney too small fractured CT characterization, likely cyst. Parapelvic cysts are present in the left kidney. No mesenteric or retroperitoneal lymphadenopathy. There is mild overall stone burden without pericolonic inflammatory change. Bladder nondistended. Small uterus. Bilateral ovaries are seen. No abnormal fluid collection clearly seen in the pelvis. There is limitation due to extensive artifacts from the patient's left hip total arthroplasty. No definite pelvic lymphadenopathy. Bones: Left hip total arthroplasty. Moderate to severe degenerative changes at the right hip. Extensi ve posterior fusion hardware from L2 through S1 levels with corresponding laminectomies. IMPRESSION: 1. INTERVAL RESOLUTION OF PREVIOUS SMALL EFFUSIONS. QUERY RESOLUTION OF CHF SINCE THE CT OF 08/11/2017 . 2. THREE-MONTH FOLLOW-UP CT CHEST CAN BE CONSIDERED TO REASSESS THE MEDIASTINAL LYMPH NODES WHICH MAY HAVE BEEN REACTIVE. 3. NO SUSPICIOUS LYMPHADENOPATHY IN THE ABDOMEN OR PELVIS. 4. HEPATOMEGALY (22.7 CM) WITHOUT FOCAL LIVER LESION. 5. FUSIFORM ECTASIA OF THE INFRARENAL ABDOMINAL AORTA AT 2.6 CM. NO WILLIAM AAA.
== END ==
LOC: RADCTMAIN 13:00
PROVIDERS: ATTEND Internal Medicine Hematology & Oncology
DX: C43.9 Malignant melanoma of skin, unspecified (principal); R16.0 Hepatomegaly, not elsewhere classified; I77.811 Abdominal aortic ectasia; Z88.1 Allergy status to other antibiotic agents; Z88.2 Allergy status to sulfonamides; Z91.09 Other allergy status, other than to drugs and biological substances
CPT/HCPCS: 82565; 84520; 74177; 36415; Q9967

== ENCOUNTER → 2018-04-03 | Outpatient (CLI) | payer MEDICARE ==
--- NOTE | 2018-04-03 12:45 | CT ---
EXAMINATION TYPE: CT ChestAbdPelvis wo con DATE OF EXAM: 04/03/2018 COMPARISON: November 28, 2017 HISTORY: Lymphadenopathy CT DLP: 2453.6mGycm Unenhanced CT of the Chest, Abdomen and Pelvis Unenhanced CT of the chest ,abdomen and pelvis is performed. The lack of intravenous contrast limits evaluation of the solid and hollow viscera. Oral contrast: Yes CT Chest: LUNGS: The lungs are clear and free of infiltrate or atelectasis. No pulmonary nodule or mass is det ected. No pleural effusion or CT evidence of interstitial lung disease. MEDIASTINUM: Thoracic aorta is of normal caliber. The heart is not enlarged. No evidence for media stinal mass or adenopathy. HILAR STRUCTURES: No evidence for mass. No hilar adenopathy is appreciated. OTHER: No significant abnormality. CONTRAST CT ABDOMEN AND PELVIS: LIVER/GB: No calcified gallstones. No space occupying hepatic lesion. Biliary tree is of normal ca liber. PANCREAS: No inflammation. No distinct mass. SPLEEN: No splenic enlargement. No lesion seen. ADRENALS: No nodule. No thickening. KIDNEYS/BLADDER: No hydronephrosis. No nephrolithiasis. No disctinct renal mass. Renal parenchymal thinning noted. BOWEL: Normal appendix. Normal bowel caliber. No inflammation. GENITAL ORGANS: No gross abnormality. LYMPH NODES: No greater than 1cm abdominal or pelvic lymph nodes areappreciated. AORTA: No significant abnormality. OSSEOUS STRUCTURES: No significant abnormality is seen. OTHER: No significant additional abnormality is seen. IMPRESSION: 1. No evidence for adenopathy. No significant abnormality seen.
== END | disposition home or self-care (01) ==
LOC: RADCTMAIN 09:39
PROVIDERS: ATTEND Internal Medicine Hematology & Oncology
DX: R59.0 Localized enlarged lymph nodes (principal); Z88.2 Allergy status to sulfonamides; Z88.1 Allergy status to other antibiotic agents; Z91.048 Other nonmedicinal substance allergy status
CPT/HCPCS: 71250; 74176

== ENCOUNTER 2018-05-14 01:03 | Inpatient (IN) | payer MEDICARE ==
--- NOTE | 2018-05-14 01:42 | XR ---
EXAM: XR Chest, 2 Views CLINICAL HISTORY: ITS.REASON XR Reason: Pain TECHNIQUE: Frontal and lateral views of the chest. COMPARISON: 09/17/2017 FINDINGS: Lungs: Subsegmental changes are suggested in the lateral projection inferior to the norma and anterior overlying the cardiac silhouette and appear to be new from the previous exam. These opacities are not well defined in the frontal projection. Pleural space: No pleural effusion. No pneumothorax. Heart: The cardiac silhouette is within normal limits. Mediastinum: Minimal calcification of the aortic arch is noted. The medius CONTOURS are otherwise unremarkable. The trachea is midline. Bones/joints: Unremarkable. IMPRESSION: Questionable transient subsegmental changes at the lung bases without evidence for significant lung consolidation. No large pleural effusion or pneumothorax. Otherwise no significant alteration from previous examination.
[2018-05-14] MEDS ORDERED: SODIUM CHLORIDE 0.9% 1,000 ML IV STA (02:36)
[2018-05-14] MEDS ORDERED: methylPREDNISolone SOD SUCCI 125 MG/2 ML VIAL IV STA (02:37)
[2018-05-14] MEDS ORDERED: ALBUTEROL NEBULIZED 2.5 MG/3 ML INHALATION STA (02:37)
[2018-05-14] MEDS ORDERED: IPRATROPIUM 0.5 MG/2.5 ML NEBU INHALATION STA (02:37)
[2018-05-14 03:04] LABS: Basophils % (A) 0 %; Eosinophils # (A) 0.2 k/uL (0-0.7); Eosinophils % (A) 2 %; HCT 43.1 % (34.0-46.0); HGB 13.5 gm/dL (11.4-16.0); Hypochromasia Slight; Lymphocytes # (A) 1.7 k/uL (1.0-4.8); Lymphocytes % (A) 18 %; MCHC 31.3 g/dL (31.0-37.0); MCV 95.9 fL (80.0-100.0); Mean Platelet Volume 6.1; Monocytes # (A) 0.7 k/uL (0-1.0); Monocytes % (A) 7 %; Neutrophils # (A) 6.2 k/uL (1.3-7.7); Neutrophils % (A) 69 %; Platelet Count 158 k/uL (150-450); RBC 4.49 m/uL (3.80-5.40); RDW 15.5 % (11.5-15.5)
[2018-05-14 03:11] LABS: ALT 31 U/L (9-52); AST 31 U/L (14-36); Albumin 3.6 g/dL (3.5-5.0); Alkaline Phosphatase 56 U/L (38-126); Anion Gap 10 mmol/L; Blood Urea Nitrogen 12 mg/dL (7-17); Calcium 9.1 mg/dL (8.4-10.2); Carbon Dioxide 27 mmol/L (22-30); Chloride 99 mmol/L (98-107); Glucose 180 mg/dL (74-99); Partial Thromboplastin Time 23.5 sec (22.0-30.0); Potassium 3.9 mmol/L (3.5-5.1); Prothrombin Time 10.6 sec (9.0-12.0); Sodium 136 mmol/L (137-145); Total Bilirubin 0.5 mg/dL (0.2-1.3); Total Protein 6.5 g/dL (6.3-8.2)
[2018-05-14 03:28] LABS: Appearance,Urine Cloudy (Clear); Bilirubin,Urine Negative (Negative); Blood,Urine Negative (Negative); Color,Urine Yellow; Glucose,Urine (UA) Negative (Negative); Ketones,Urine Trace (Negative); Leukocyte Esterase,Urine Trace (Negative); Nitrite,Urine Negative (Negative); PH, Urine 8.5 (5.0-8.0); Protein,Urine Trace (Negative); RBC,Urine <1 /hpf (0-5); Specific Gravity,Urine 1.019 (1.001-1.035); Squamous Epithelial Cell,Urine 2 /hpf (0-4); Urobilinogen,Urine <2.0 mg/dL (<2.0); WBC,Urine 8 /hpf (0-5)
[2018-05-14] MEDS ORDERED: IBUPROFEN 600 MG TAB PO STA (03:58)
[2018-05-14] MEDS ORDERED: HYDROcodone/APAP 10-325MG 1 EACH TAB PO ONE (03:58)
[2018-05-14] MEDS ORDERED: ACETAMINOPHEN TAB 325 MG TAB PO STA (03:58)
--- NOTE | 2018-05-14 04:28 | ED ---
URI HPI - General Source: patient, EMS Mode of arrival: EMS Limitations: no limitations <Savannah Natarajan - Last Filed: 05/14/18 04:53> <Emre Mcgowan - Last Filed: 05/15/18 10:04> - General Chief Complaint: Upper Respiratory Infection Stated Complaint: pain Time Seen by Provider: 05/14/18 01:49 - History of Present Illness Initial Comments: 77-year-old female patient presents to the emergency department today for evaluation of shortness of breath and weakness. Patient states that she has been sick with upper respiratory symptoms for the last 3 days. States that she has had a dry nonproductive cough. She reports sore throat and nasal congestion. States that she has felt generally weak and chilled today. States that she has been having some shortness of breath with the illness however it seemed to worsen this evening. States that she was unable to catch her breath so thought she should come in for evaluation. Patient states she was having an aching pain in her chest and some nausea prior to arrival. She denies any sweats or dizziness. Denies any numbness or tingling to her extremities. Casper alford denies any recent rash, abdominal pain, vomiting, diarrhea, constipation, back pain, numbness, tingling, hematuria, dysuria, urinary urgency, urinary frequency, headache, visual changes, or any other complaints. (Savannah Natarajan) - Related Data Home Medications Medication Instructions Recorded Confirmed Calcium Carbonate/Vitamin D3 1 tab PO BID 02/27/14 05/14/18 [Calcium 600-Vit D3 400 Tablet] Clotrimazole Cream [Lotrimin Cream] 1 applic TOPICAL DAILY PRN 02/27/14 05/14/18 Gabapentin [Neurontin] 1,200 mg PO TID 02/27/14 05/14/18 Glucosamine Sulfate 1,500 mg PO DAILY 02/27/14 05/14/18 Lansoprazole [Prevacid] 15 mg PO HS 02/27/14 05/14/18 predniSONE 4 mg PO QAM 02/27/14 05/14/18 Gabapentin 1,600 mg PO HS 03/09/16 05/14/18 hydrOXYzine HCL [Atarax] 50 mg PO HS 04/12/16 05/14/18 Folic Acid 1 mg PO DAILY 08/13/16 05/14/18 Adalimumab [Humira Pen] 40 mg SQ WE 10/17/16 05/14/18 Atorvastatin [Lipitor] 40 mg PO HS 08/11/17 05/14/18 Latanoprost [Xalatan 0.005%] 1 drop BOTH EYES HS 08/11/17 05/14/18 Levothyroxine Sodium [Synthroid] 224 mcg PO DAILY 08/11/17 05/14/18 Methotrexate Sodium [Methotrexate] 12.5 mg PO WE 08/11/17 05/14/18 Pilocarpine HCl [Salagen] 7.5 mg PO TID 08/11/17 05/14/18 metFORMIN HCL [Glucophage] 1,000 mg PO AC-BID 08/11/17 05/14/18 traMADol HCL [Ultram] 50 mg PO Q6HR PRN 08/11/17 05/14/18 Insulin NPH Hum/Reg Insulin Hm See Protocol SQ ACHS 09/06/17 05/14/18 [NovoLIN 70-30 100 UNIT/ML VIAL] Aspirin 325 mg PO DAILY 10/17/17 05/14/18 Acetaminophen [Tylenol Arthritis] 650 mg PO Q6H PRN 05/14/18 05/14/18 Multivitamins, Thera [Multivitamin 1 tab PO DAILY 05/14/18 05/14/18 (formulary)] Previous Rx's Medication Instructions Recorded Nitroglycerin Sl Tabs [Nitrostat] 0.4 mg SUBLINGUAL Q5M PRN #30 tab 08/13/17 Verapamil Sr [Isoptin Sr] 240 mg PO DAILY #30 tablet.er 08/13/17 Apixaban [Eliquis] 5 mg PO BID #60 tab 08/30/17 Metoprolol Tartrate [Lopressor] 25 mg PO BID #60 tab 08/30/17 Furosemide [Lasix] 40 mg PO BID@0900,1600 tab 09/10/17 Allergies Allergy/AdvReac Type Severity Reaction Status Date / Time adhesive Allergy Rash/Hives Verified 05/14/18 07:57 cephalexin [From Keflex] Allergy Rash/Hives Verified 05/14/18 07:57 grass pollen Allergy Unknown Verified 05/14/18 07:57 mold Allergy Unknown Verified 05/14/18 07:57 Sulfa (Sulfonamide Allergy Rash/Hives Verified 05/14/18 07:57 Antibiotics) newspaper ink Allergy Unknown Uncoded 10/17/17 11:35 Review of Systems ROS Other: All systems not noted in ROS Statement are negative. <Savannah Natarajan - Last Filed: 05/14/18 04:53> ROS Other: All systems not noted in ROS Statement are negative. <Emre Mcgowan - Last Filed: 05/15/18 10:04> ROS Statement: Those systems with pertinent positive or pertinent negative responses have been documented in the HPI. Past Medical History Past Medical History: Atrial Fibrillation, Cancer, Diabetes Mellitus, Hyperlipidemia, Hypertension, Musculoskeletal Disorder, Neurologic Disorder, Osteoarthritis (OA), Renal Disease, Rheumatoid Arthritis (RA), Skin Disorder, Thyroid Disorder Additional Past Medical History / Comment(s): IDDM type II, spinal stenosis, Reynauds, neurologic sjogrens BALANCE ISSUES, SINUS INFECTIONS, HAS HAD DOUBLE VISION ALL HER LIFE-when looks certain directions, hypothyroidism, acute kidney failure psoriasis, UTI s, melanoma skin cancer lt arm, bilateral elbow bursitis with MRSA and I&Ds/antibiotics.pt stated never had gout. History of Any Multi-Drug Resistant Organisms: MRSA Date of last positivie culture/infection: 02/27/14 MDRO Source:: Sputum Past Surgical History: Back Surgery, Breast Surgery, Heart Catheterization, Joint Replacement, Orthopedic Surgery Additional Past Surgical History / Comment(s): Bilateral cataracts with lens implants, arthroscopies to lt wrist, gualberto knees, gualberto ankles, gualberto hips, lt hip replacment and redone, L/R shoulder sxs, rt breast bx-benign, egd/colonoscopy, skin cancer removal L arm. Past Anesthesia/Blood Transfusion Reactions: No Reported Reaction Past Psychological History: No Psychological Hx Reported Smoking Status: Former smoker - Past Family History Mother Family Medical History: CVA/TIA Additional Family Medical History / Comment(s): RUPTURED BOWEL Father Family Medical History: Cancer, Pneumonia Additional Family Medical History / Comment(s): ASPIRATIVE PNA Sister(s) Additional Family Medical History / Comment(s): at age 34 with lupus <Savannah Natarajan - Last Filed: 05/14/18 04:53> General Exam Limitations: no limitations General appearance: alert, in no apparent distress, other (Physical well- developed, well-nourished elderly female patient sent to mild shortness of breath. Vital signs upon presentation are temperature 101.4F, pulse 132, respirations 32, blood pressure 160/84, pulse ox 93% on room air.) Eye exam: Present: normal appearance, PERRL, EOMI. Absent: scleral icterus, c onjunctival injection, periorbital swelling ENT exam: Present: normal exam, normal oropharynx, mucous membranes moist Respiratory exam: Present: wheezes (Expiratory wheezing noted in the posterior lung oliveira.). Absent: normal lung sounds bilaterally, respiratory distress, rales, rhonchi, stridor Cardiovascular Exam: Present: normal rhythm, tachycardia, normal heart sounds. Absent: systolic murmur, diastolic murmur, rubs, gallop, clicks GI/Abdominal exam: Present: soft, normal bowel sounds. Absent: distended, tenderness, guarding, rebound, rigid Neurological exam: Present: alert, oriented X3, CN II-XII intact Psychiatric exam: Present: normal affect, normal mood Skin exam: Present: warm, dry, intact, normal color. Absent: rash <Savannah Natarajan M - Last Filed: 05/14/18 04:53> Course Vital Signs 05/14/18 05/14/18 05/14/18 01:13 02:30 02:48 Temperature 101.4 F H 102 F H Pulse Rate 132 H 118 H Respiratory 32 H Rate Blood Pressure 168/84 O2 Sat by Pulse 93 L Oximetry 05/14/18 05/14/18 05/14/18 02:51 03:00 03:10 Temperature Pulse Rate 112 H 110 H 120 H Respiratory 22 20 Rate Blood Pressure 158/72 159/76 O2 Sat by Pulse 100 97 Oximetry 05/14/18 05/14/18 05/14/18 05:30 05:35 09:33 Temperature 100 F H 100.5 F H 98.4 F Pulse Rate 112 H 102 H Respiratory 20 16 Rate Blood Pressure 151/73 138/69 O2 Sat by Pulse 97 95 Oximetry 05/14/18 12:24 Temperature 97.8 F Pulse Rate 96 Respiratory 16 Rate Blood Pressure 138/70 O2 Sat by Pulse 98 Oximetry Medical Decision Making - Lab Data Result diagrams: 05/14/18 02:48 05/14/18 02:48 - EKG Data -: EKG Interpreted by Ne - Radiology Data Radiology results: report reviewed, image reviewed <Savannah Natarajan - Last Filed: 05/14/18 04:53> - Lab Data Result diagrams: 05/15/18 03:34 05/14/18 02:48 <Emre Mcgowan - Last Filed: 05/15/18 10:04> - Medical Decision Making 77-year-old female patient presents to the emergency department today for evaluation of upper respiratory symptoms, shortness of breath, and weakness. Patient did report some aching in her chest and nausea prior to arrival but this is after coughing episode. Physical examination did reveal expiratory wheezing to the posterior lung oliveira. Patient was tachypneic and tachycardic. She did have T-max of 102F in the department. Labs reviewed and did reveal normal white blood cell count, normal lactic acid. She had elevated troponin at 0.04. Patient also exhibited EKG changes. We will start heparin and give aspirin. P mary ann will be admitted to the hospital for serial troponins and further evaluation of what appears to be an acute bronchitis most likely viral as chest x-ray was negative for any consolidation. She is negative influenza. I did discuss findings, results, and plan with the patient she is agreeable. (Savannah Natarajan) I saw this patient in conjunction with the physician ssn/ssbn assistant navigator. I performed independent history and physical exam. Agree with case management. (Emre Mcgowan) - Lab Data Lab Results 05/14/18 05/14/18 05/14/18 Range/Units 01:15 02:48 02:48 WBC 9.0 (3.8-10.6) k/uL RBC 4.49 (3.80-5.40) m/uL Hgb 13.5 (11.4-16.0) gm/dL Hct 43.1 (34.0-46.0) % MCV 95.9 (80.0-100.0) fL MCH 30.0 (25.0-35.0) pg MCHC 31.3 (31.0-37.0) g/dL RDW 15.5 (11.5-15.5) % Plt Count 158 (150-450) k/uL Neutrophils % 69 % Lymphocytes % 18 % Monocytes % 7 % Eosinophils % 2 % Basophils % 0 % Neutrophils # 6.2 (1.3-7.7) k/uL Lymphocytes # 1.7 (1.0-4.8) k/uL Monocytes # 0.7 (0-1.0) k/uL Eosinophils # 0.2 (0-0.7) k/uL Basophils # 0.0 (0-0.2) k/uL Hypochromasia Slight PT (9.0-12.0) sec INR (<1.2) APTT (22.0-30.0) sec Sodium 136 L (137-145) mmol/L Potassium 3.9 (3.5-5.1) mmol/L Chloride 99 (98-107) mmol/L Carbon Dioxide 27 (22-30) mmol/L Anion Gap 10 mmol/L BUN 12 (7-17) mg/dL Creatinine 0.44 L (0.52-1.04) mg/dL Est GFR (CKD-EPI)AfAm >90 (>60 ml/min/1.73 sqM) Est GFR (CKD-EPI)NonAf >90 (>60 ml/min/1.73 sqM) Glucose 180 H (74-99) mg/dL Plasma Lactic Acid Cj (0.7-2.0) mmol/L Calcium 9.1 (8.4-10.2) mg/dL Total Bilirubin 0.5 (0.2-1.3) mg/dL AST 31 (14-36) U/L ALT 31 (9-52) U/L Alkaline Phosphatase 56 (38-126) U/L Troponin I (0.000-0.034) ng/mL Total Protein 6.5 (6.3-8.2) g/dL Albumin 3.6 (3.5-5.0) g/dL Urine Color Urine Appearance (Clear) Urine pH (5.0-8.0) Ur Specific [place] (1.001-1.035) Urine Protein (Negative) Urine Glucose (UA) (Negative) Urine Ketones (Negative) Urine Blood (Negative) Urine Nitrite (Negative) Urine Bilirubin (Negative) Urine Urobilinogen (<2.0) mg/dL Ur Leukocyte Esterase (Negative) Urine RBC (0-5) /hpf Urine WBC (0-5) /hpf Ur Squamous Epith Cells (0-4) /hpf Influenza Type A RNA Not Detected (Not Detectd) Influenza Type B (PCR) Not Detected (Not Detectd) 05/14/18 05/14/18 05/14/18 Range/Units 02:48 02:48 02:48 WBC (3.8-10.6) k/uL RBC (3.80-5.40) m/uL Hgb (11.4-16.0) gm/dL Hct (34.0-46.0) % MCV (80.0-100.0) fL MCH (25.0-35.0) pg MCHC (31.0-37.0) g/dL RDW (11.5-15.5) % Plt Count (150-450) k/uL Neutrophils % % Lymphocytes % % Monocytes % % Eosinophils % % Basophils % % Neutrophils # (1.3-7.7) k/uL Lymphocytes # (1.0-4.8) k/uL Monocytes # (0-1.0) k/uL Eosinophils # (0-0.7) k/uL Basophils # (0-0.2) k/uL Hypochromasia PT 10.6 (9.0-12.0) sec INR 1.0 (<1.2) APTT 23.5 (22.0-30.0) sec Sodium (137-145) mmol/L Potassium (3.5-5.1) mmol/L Chloride (98-107) mmol/L Carbon Dioxide (22-30) mmol/L Anion Gap mmol/L BUN (7-17) mg/dL Creatinine (0.52-1.04) mg/dL Est GFR (CKD-EPI)AfAm (>60 ml/min/1.73 sqM) Est GFR (CKD-EPI)NonAf (>60 ml/min/1.73 sqM) Glucose (74-99) mg/dL Plasma Lactic Acid Cj 2.0 (0.7-2.0) mmol/L Calcium (8.4-10.2) mg/dL Total Bilirubin (0.2-1.3) mg/dL AST (14-36) U/L ALT (9-52) U/L Alkaline Phosphatase (38-126) U/L Troponin I 0.042 H* (0.000-0.034) ng/mL Total Protein (6.3-8.2) g/dL Albumin (3.5-5.0) g/dL Urine Color Urine Appearance (Clear) Urine pH (5.0-8.0) Ur Specific [place] (1.001-1.035) Urine Protein (Negative) Urine Glucose (UA) (Negative) Urine Ketones (Negative) Urine Blood (Negative) Urine Nitrite (Negative) Urine Bilirubin (Negative) Urine Urobilinogen (<2.0) mg/dL Ur Leukocyte Esterase (Negative) Urine RBC (0-5) /hpf Urine WBC (0-5) /hpf Ur Squamous Epith Cells (0-4) /hpf Influenza Type A RNA (Not Detectd) Influenza Type B (PCR) (Not Detectd) 05/14/18 05/14/18 Range/Units 03:20 04:04 WBC (3.8-10.6) k/uL RBC (3.80-5.40) m/uL Hgb (11.4-16.0) gm/dL Hct (34.0-46.0) % MCV (80.0-100.0) fL MCH (25.0-35.0) pg MCHC (31.0-37.0) g/dL RDW (11.5-15.5) % Plt Count (150-450) k/uL Neutrophils % % Lymphocytes % % Monocytes % % Eosinophils % % Basophils % % Neutrophils # (1.3-7.7) k/uL Lymphocytes # (1.0-4.8) k/uL Monocytes # (0-1.0) k/uL Eosinophils # (0-0.7) k/uL Basophils # (0-0.2) k/uL Hypochromasia PT (9.0-12.0) sec INR (<1.2) APTT (22.0-30.0) sec Sodium (137-145) mmol/L Potassium (3.5-5.1) mmol/L Chloride (98-107) mmol/L Carbon Dioxide (22-30) mmol/L Anion Gap mmol/L BUN (7-17) mg/dL Creatinine (0.52-1.04) mg/dL Est GFR (CKD-EPI)AfAm (>60 ml/min/1.73 sqM) Est GFR (CKD-EPI)NonAf (>60 ml/min/1.73 sqM) Glucose (74-99) mg/dL Plasma Lactic Acid Cj (0.7-2.0) mmol/L Calcium (8.4-10.2) mg/dL Total Bilirubin (0.2-1.3) mg/dL AST (14-36) U/L ALT (9-52) U/L Alkaline Phosphatase (38-126) U/L Troponin I (0.000-0.034) ng/mL Total Protein (6.3-8.2) g/dL Albumin (3.5-5.0) g/dL Urine Color Yellow Urine Appearance Cloudy H (Clear) Urine pH 8.5 H (5.0-8.0) Ur Specific [place] 1.019 (1.001-1.035) Urine Protein Trace H (Negative) Urine Glucose (UA) Negative (Negative) Urine Ketones Trace H (Negative) Urine Blood Negative (Negative) Urine Nitrite Negative (Negative) Urine Bilirubin Negative (Negative) Urine Urobilinogen <2.0 (<2.0) mg/dL Ur Leukocyte Esterase Trace H (Negative) Urine RBC <1 (0-5) /hpf Urine WBC 8 H (0-5) /hpf Ur Squamous Epith Cells 2 (0-4) /hpf Influenza Type A RNA Not Detected (Not Detectd) Influenza Type B (PCR) Not Detected (Not Detectd) - EKG Data EKG Comments: EKG obtained at 0111 shows sinus tachycardia with incomplete right bundle branch block, ventricular rate is 127, para interval 154, QRS duration 96, QT 354, QTC 514. ST changes in aVR, V4, and V5. (Savannah Natarajan) - Radiology Data Two-view x-ray of the chest is obtained. Report was reviewed in its entirety. Impression by Dr. Childs shows question of a transient subsegmental changes at the lung bases without evidence for significant lung consolidation. No large pleural effusion or pneumothorax. Otherwise no significant alteration from previous exam. (Savannah Natarajan) Disposition Decision to Admit Reason: Admit from EC Decision Date: 05/14/18 Decision Time: 04:48 <Savannah Natarajan - Last Filed: 05/14/18 04:53> <Emre Mcgowan - Last Filed: 05/15/18 10:04> Clinical Impression: Chest pain, Acute bronchitis, Elevated troponin Disposition: ADMITTED IP TO THIS [facility] Condition: Serious
[2018-05-14] MEDS ORDERED: ASPIRIN 81 MG PO STA (04:29)
[2018-05-14] MEDS ORDERED: HEPARIN SODIUM,PORCINE 5,000 UNIT/ML 1 ML VIAL IV ONE (04:29)
[2018-05-14] MEDS ORDERED: MORPHINE SULFATE 2 MG/ML SYRINGE IVP PRN (04:48)
[2018-05-14] MEDS ORDERED: NITROGLYCERIN SL TABS 0.4 MG TAB SUBLINGUAL PRN ×2 (04:48→18:07)
[2018-05-14] MEDS ORDERED: ACETAMINOPHEN TAB 325 MG TAB PO PRN (04:51)
[2018-05-14] MEDS ORDERED: IPRATROPIUM-ALBUTEROL 3 ML NEB INHALATION PRN (04:51)
[2018-05-14] MEDS ORDERED: METOPROLOL TARTRATE 25 MG TAB PO STA (05:35)
[2018-05-14] MEDS: HEPARIN SOD,PORK IN 0.45% NACL 25,000 UNIT in 0.45% NACL 1 250ML.BAG IV SCH (05:38)
[2018-05-14] MEDS: IPRATROPIUM-ALBUTEROL 3 ML NEB INHALATION SCH ×5 (07:01→23:27)
--- NOTE | 2018-05-14 08:13 | P.HPIM ---
History of Present Illness H&P Date: 05/14/18 Chief Complaint: Respiratory cough This is a history and physical on a 77-year-old white female with multiple issues including diabetes, hyperlipidemia and chronic pain elements. She does have history of gait disturbances. She saw me last week for lower respiratory infection was treated with appropriate antibiotics. Her has been ill also in the last several weeks with respiratory infection. She came in because she felt flulike. Evaluation here did show slight elevation of cardiac enzymes and she is appropriately admitted for rule out myocardial infarction. Heparin has been instituted and her jewelry racker is now to be consulted. No diaphoresis stated. Questions mild element of nausea without vomiting. Review of Systems Constitutional: Denies chills, Denies fever Eyes: denies blurred vision, denies pain Ears, nose, mouth and throat: Denies headache, Denies sore throat Cardiovascular: Reports shortness of breath, Denies chest pain Respiratory: Denies cough Gastrointestinal: Denies abdominal pain, Denies diarrhea, Denies nausea, Denies vomiting Genitourinary: Denies dysuria, Denies hematuria Past Medical History Past Medical History: Atrial Fibrillation, Cancer, Diabetes Mellitus, Hyperlipidemia, Hypertension, Musculoskeletal Disorder, Neurologic Disorder, Osteoarthritis (OA), Renal Disease, Rheumatoid Arthritis (RA), Skin Disorder, Thyroid Disorder Additional Past Medical History / Comment(s): IDDM type II, spinal stenosis, Reynauds, neurologic sjogrens BALANCE ISSUES, SINUS INFECTIONS, HAS HAD DOUBLE VISION ALL HER LIFE-when looks certain directions, hypothyroidism, acute kidney failure psoriasis, UTI s, melanoma skin cancer lt arm, bilateral elbow bursitis with MRSA and I&Ds/antibiotics.pt stated never had gout. History of Any Multi-Drug Resistant Organisms: MRSA Date of last positivie culture/infection: 02/27/14 MDRO Source:: Sputum Past Surgical History: Back Surgery, Breast Surgery, Heart Catheterization, Joint Replacement, Orthopedic Surgery Additional Past Surgical History / Comment(s): Bilateral cataracts with lens implants, arthroscopies to lt wrist, gualberto knees, gualberto ankles, gualberto hips, lt hip replacment and redone, L/R shoulder sxs, rt breast bx-benign, egd/colonoscopy, skin cancer removal L arm. Past Anesthesia/Blood Transfusion Reactions: No Reported Reaction Past Psychological History: No Psychological Hx Reported Smoking Status: Former smoker - Past Family History Mother Family Medical History: CVA/TIA Additional Family Medical History / Comment(s): RUPTURED BOWEL Father Family Medical History: Cancer, Pneumonia Additional Family Medical History / Comment(s): ASPIRATIVE PNA Sister(s) Additional Family Medical History / Comment(s): at age 34 with lupus Medications and Allergies Home Medications Medication Instructions Recorded Confirmed Type Calcium Carbonate/Vitamin D3 1 tab PO BID 02/27/14 05/14/18 History [Calcium 600-Vit D3 400 Tablet] Clotrimazole Cream [Lotrimin Cream] 1 applic TOPICAL DAILY PRN 02/27/14 05/14/18 History Gabapentin [Neurontin] 1,200 mg PO TID 02/27/14 05/14/18 History Glucosamine Sulfate 1,500 mg PO DAILY 02/27/14 05/14/18 History Lansoprazole [Prevacid] 15 mg PO HS 02/27/14 05/14/18 History predniSONE 4 mg PO QAM 02/27/14 05/14/18 History Gabapentin 1,600 mg PO HS 03/09/16 05/14/18 History hydrOXYzine HCL [Atarax] 50 mg PO HS 04/12/16 05/14/18 History Folic Acid 1 mg PO DAILY 08/13/16 05/14/18 History Adalimumab [Humira Pen] 40 mg SQ WE 10/17/16 05/14/18 History Atorvastatin [Lipitor] 40 mg PO HS 08/11/17 05/14/18 History Latanoprost [Xalatan 0.005%] 1 drop BOTH EYES HS 08/11/17 05/14/18 History Levothyroxine Sodium [Synthroid] 224 mcg PO DAILY 08/11/17 05/14/18 History Methotrexate Sodium [Methotrexate] 12.5 mg PO WE 08/11/17 05/14/18 History Pilocarpine HCl [Salagen] 7.5 mg PO TID 08/11/17 05/14/18 History metFORMIN HCL [Glucophage] 1,000 mg PO AC-BID 08/11/17 05/14/18 History traMADol HCL [Ultram] 50 mg PO Q6HR PRN 08/11/17 05/14/18 History Nitroglycerin Sl Tabs [Nitrostat] 0.4 mg SUBLINGUAL Q5M PRN #30 tab 08/13/17 05/14/18 Rx Verapamil Sr [Isoptin Sr] 240 mg PO DAILY #30 tablet.er 08/13/17 05/14/18 Rx Apixaban [Eliquis] 5 mg PO BID #60 tab 08/30/17 05/14/18 Rx Metoprolol Tartrate [Lopressor] 25 mg PO BID #60 tab 08/30/17 05/14/18 Rx Insulin NPH Hum/Reg Insulin Hm See Protocol SQ ACHS 09/06/17 05/14/18 History [NovoLIN 70-30 100 UNIT/ML VIAL] Furosemide [Lasix] 40 mg PO BID@0900,1600 tab 09/10/17 05/14/18 Rx Aspirin 325 mg PO DAILY 10/17/17 05/14/18 History Acetaminophen [Tylenol Arthritis] 650 mg PO Q6H PRN 05/14/18 05/14/18 History Multivitamins, Thera [Multivitamin 1 tab PO DAILY 05/14/18 05/14/18 History (formulary)] Allergies Allergy/AdvReac Type Severity Reaction Status Date / Time adhesive Allergy Rash/Hives Verified 05/14/18 07:57 cephalexin [From Keflex] Allergy Rash/Hives Verified 05/14/18 07:57 grass pollen Allergy Unknown Verified 05/14/18 07:57 mold Allergy Unknown Verified 05/14/18 07:57 Sulfa (Sulfonamide Allergy Rash/Hives Verified 05/14/18 07:57 Antibiotics) newspaper ink Allergy Unknown Uncoded 10/17/17 11:35 Physical Exam Vitals: Vital Signs Temp Pulse Resp BP Pulse Ox 05/14/18 05:35 100.5 F H 05/14/18 05:30 100 F H 112 H 20 151/73 97 05/14/18 03:10 120 H 05/14/18 03:00 110 H 20 159/76 97 05/14/18 02:51 112 H 22 158/72 100 05/14/18 02:48 118 H 05/14/18 02:30 102 F H 05/14/18 01:13 101.4 F H 132 H 32 H 168/84 93 L Intake and Output 05/13/18 05/14/18 05/14/18 22:59 06:59 14:59 Other: Weight 134.717 kg - Constitutional General appearance: obese - EENT Eyes: EOMI - Neck Neck: no lymphadenopathy - Respiratory Respiratory: bilateral: CTA - Cardiovascular Rhythm: regular Heart sounds: normal: S1, S2 Abnormal Heart Sounds: no S3 Gallop - Gastrointestinal General gastrointestinal: soft, no tenderness - Integumentary Integumentary: no cellulitis - Neurologic Neurologic: CNII-XII intact Results CBC & Chem 7: 05/14/18 02:48 05/14/18 02:48 Labs: Abnormal Lab Results - Last 24 Hours (Table) 05/14/18 05/14/18 05/14/18 Range/Units 02:48 02:48 03:20 Sodium 136 L (137-145) mmol/L Creatinine 0.44 L (0.52-1.04) mg/dL Glucose 180 H (74-99) mg/dL Troponin I 0.042 H* (0.000-0.034) ng/mL Urine Appearance Cloudy H (Clear) Urine pH 8.5 H (5.0-8.0) Urine Protein Trace H (Negative) Urine Ketones Trace H (Negative) Ur Leukocyte Esterase Trace H (Negative) Urine WBC 8 H (0-5) /hpf Assessment and Plan (1) Acute bronchitis Current Visit: Yes Status: Acute Code(s): J20.9 - ACUTE BRONCHITIS, UNSPECIFIED SNOMED Code(s): 40948821 (2) Elevated troponin Current Visit: Yes Status: Acute Code(s): R74.8 - ABNORMAL LEVELS OF OTHER SERUM ENZYMES SNOMED Code(s): 560336038 (3) Atrial fibrillation with RVR Current Visit: No Status: Acute Code(s): I48.91 - UNSPECIFIED ATRIAL FIBRILLATION SNOMED Code(s): 214173062584081 (4) CAD (coronary artery disease) Current Visit: No Status: Acute Code(s): I25.10 - ATHSCL HEART DISEASE OF [place] CORONARY ARTERY W/O ANG PCTRS SNOMED Code(s): 93794562 (5) Generalized weakness Current Visit: No Status: Acute Code(s): R53.1 - WEAKNESS SNOMED Code(s): 46177994 (6) Gout Current Visit: No Status: Acute Code(s): M10.9 - GOUT, UNSPECIFIED SNOMED Code(s): 81680781 (7) Increased weakness when ambulating Current Visit: No Status: Acute Code(s): R53.1 - WEAKNESS SNOMED Code(s): 880182309 Plan: Rule out myocardial infarction. Consult cardiology. Reconcile medications as necessary. Keep nothing by mouth in with heparin at this time. We'll continue to follow. Prognosis is guarded secondary to her multiple comorbidities. Time with Patient: Greater than 30
[2018-05-14] MEDS ORDERED: GLUCOSAMINE SULFATE 1500 MG PO SCH (09:00)
[2018-05-14] MEDS ORDERED: METOPROLOL TARTRATE 25 MG TAB PO SCH (09:00)
[2018-05-14] MEDS ORDERED: METOPROLOL TARTRATE 50 MG TAB PO STA (09:14)
[2018-05-14] MEDS: LEVOTHYROXINE 112 MCG TAB PO SCH (10:20)
[2018-05-14] MEDS: PILOCARPINE 5 MG TAB PO SCH ×3 (10:21→21:21)
[2018-05-14] MEDS: MULTIVITAMINS, THERA 1 EACH TAB PO SCH (10:21)
[2018-05-14] MEDS: CALCIUM CARB-VIT D 500MG-200UN 1 EACH TAB PO SCH ×2 (10:22→21:20)
[2018-05-14] MEDS: FOLIC ACID 1 MG TAB PO SCH (10:23)
[2018-05-14] MEDS: VERAPAMIL SR 240 MG TABLET.ER PO SCH (10:23)
[2018-05-14 10:48] LABS: Basophils % (A) 0 %; Eosinophils % (A) 0 %; HCT 42.8 % (34.0-46.0); HGB 13.4 gm/dL (11.4-16.0); Hypochromasia Slight; Lymphocytes % (A) 13 %; MCH 29.6 pg (25.0-35.0); MCHC 31.4 g/dL (31.0-37.0); MCV 94.2 fL (80.0-100.0); Mean Platelet Volume 7.6; Monocytes # (A) 0.1 k/uL (0-1.0); Monocytes % (A) 2 %; Neutrophils # (A) 6.3 k/uL (1.3-7.7); Neutrophils % (A) 84 %; Platelet Count 187 k/uL (150-450); RBC 4.54 m/uL (3.80-5.40); RDW 15.3 % (11.5-15.5); WBC 7.5 k/uL (3.8-10.6)
[2018-05-14 10:55] LABS: Partial Thromboplastin Time 33.4 sec (22.0-30.0); Prothrombin Time 10.5 sec (9.0-12.0)
--- NOTE | 2018-05-14 12:18 | P.CRDCN ---
History of Present Illness Consult date: 05/14/18 Reason for Consult (text): Elevated troponins/shortnes of breath Chief complaint: Elevated troponins/shortness of breath History of present illness: HISTORY OF PRESENT ILLNESS AND PLAN: This is a 77-year-old female who presents in the emergency department with history of atrial fibrillation s/p post cardioversion, recent ERIK in September 2017 WNL, EF 50%, negative for thrombus. Patient also has history of diabetes mellitus, chronic pain syndrome, altered gait. Patient presents to ER with c omplaints of increasing shortness of breath and weakness. Recently has been treated with outpatient antibiotics for upper respiratory infection, states she just started antibiotics on Monday. Patient states she has productive cough green sputum, sore throat, and sinus infection, fever with nausea, and vomiting. patient presents with increased temperature of 100.5. Patient's troponins elevated on presentation 0.042. Patient has no current complaints of chest pain or discomfort. Patient has no current complaints of shortness of breath palpitations or lower extremity edema. She should still complains of sore throat and sinus infection. Patient tested negative for flu. Borderline U/A. Patient sinus rhythm sinus tach on monitor heart rate currently 98. Patient in no acute distress, alert, oriented, able to sit up at the edge of the bed or examination. Plan: Discontinue aspirin. Increase metoprolol tartrate to 50 mg twice a day, first dose now. Continue with cautious IV hydration, continue with antibiotics. SIGNIFICANT PAST MEDICAL HISTORY: [Atrial fibrillation status post cardioversion September 2017. ERIK negative for thrombus within normal limits, EF 50-55% September 2017. Cardiac cath August 2017 right dominant system, WNL. No disease of LAD. Mild disease in the RCA. Moderate disease in circumflex. diabetes mellitus, hypertension, chronic pain, altered gait.] PAST SURGICAL HISTORY: See list. EKG shows [sinus rhythm/sinus tach], heart rate [98] beats per minute. Troponins positive x [1] 0.042. negative 1 0.029 SIGNIFICANT LABORATORY VALUES: [CBC negative. BMP negative. Negative flu swab. borderline UA.]. Chest x-ray [significant consolidation, possible changes at lung bases.]. Most recent ERIK echo dated = [september 2017] indicates [EF THE NORMAL LIMITS, ef 5 0-55% NEGATIVE FOR THROMBUS]. Most recent cardiac cath = August 2017 right dominant system, WNL. No disease of LAD. Mild disease in the RCA. Moderate disease in circumflex. 1. acute upper respiratory tract infection 2. troponin elevation, not suggestive of acute myocardial injury 3. Tachycardia, fever. With history of atrial fibrillation status post cardioversion increased metoprolol titrate 50 mg twice daily. PLAN: [Troponin elevation secondary to acute upper respiratory infection. No acute myocardial injury. Discontinue aspirin. Increase metoprolol tartrate to 50 mg twice daily. Will follow along, call with questions or concerns.] Nurse Practitioner note has been reviewed by Physician. Signing provider agrees with the documented findings, assessment and plan of care. Review of Systems REVIEW OF SYSTEMS: CONSTITUTIONAL: [Complains of fever. Denies chills.] EYES: Denies blurred vision. [Denies blurred vision or vision changes. Denies eye pain.] EARS, NOSE, MOUTH & THROAT: [Denies headache. C/o sore throat. Denies ear pain Denies hemoptysis.] CARDIOVASCULAR: [Denies chest pain. Denies shortness of breath. Denies orthopnea. Denies PND. Denies palpitations.] RESPIRATORY: [C/o cough. No current shortness of breath. Complains of sputum ] GASTROINTESTINAL: [Denies abdominal pain or distention. Denies diarrhea. Denies constipation. Denies no current nausea or vomiting.] MUSCULOSKELETAL: [C/O myalgias.] INTEGUMENTARY: [Denies pruitis. Denies rash.] ENDOCRINE: [C/o fatigue. Denies weight change. Denies polydipsia. Denies polyurina Denies heat/cold intolerance.] GENITOURINARY:[ Denies burning, hematuria or urgency with micturation.] HEMATOLOGIC: [Denies history of anemia. Denies bleeding.] NEUROLOGIC: [Denies numbness. Denies tingling. Denies weakness.] PSYCHIATRIC: [Denies anxiety. Denies depression.] Past Medical History Past Medical History: Atrial Fibrillation, Cancer, Diabetes Mellitus, Hyperlipidemia, Hypertension, Musculoskeletal Disorder, Neurologic Disorder, Osteoarthritis (OA), Renal Disease, Rheumatoid Arthritis (RA), Skin Disorder, Thyroid Disorder Additional Past Medical History / Comment(s): IDDM type II, spinal stenosis, Reynauds, neurologic sjogrens BALANCE ISSUES, SINUS INFECTIONS, HAS HAD DOUBLE VISION ALL HER LIFE-when looks certain directions, hypothyroidism, acute kidney failure psoriasis, UTI s, melanoma skin cancer lt arm, bilateral elbow bursitis with MRSA and I&Ds/antibiotics.pt stated never had gout. History of Any Multi-Drug Resistant Organisms: MRSA Date of last positivie culture/infection: 02/27/14 MDRO Source:: Sputum Past Surgical History: Back Surgery, Breast Surgery, Heart Catheterization, Joint Replacement, Orthopedic Surgery Additional Past Surgical History / Comment(s): Bilateral cataracts with lens implants, arthroscopies to lt wrist, gualberto knees, gualberto ankles, gualberto hips, lt hip replacment and redone, L/R shoulder sxs, rt breast bx-benign, egd/colonoscopy, skin cancer removal L arm. Past Anesthesia/Blood Transfusion Reactions: No Reported Reaction Past Psychological History: No Psychological Hx Reported Smoking Status: Former smoker - Past Family History Mother Family Medical History: CVA/TIA Additional Family Medical History / Comment(s): RUPTURED BOWEL Father Family Medical History: Cancer, Pneumonia Additional Family Medical History / Comment(s): ASPIRATIVE PNA Sister(s) Additional Family Medical History / Comment(s): at age 34 with lupus Medications and Allergies Home Medications Medication Instructions Recorded Confirmed Type Calcium Carbonate/Vitamin D3 1 tab PO BID 02/27/14 05/14/18 History [Calcium 600-Vit D3 400 Tablet] Clotrimazole Cream [Lotrimin Cream] 1 applic TOPICAL DAILY PRN 02/27/14 05/14/18 History Gabapentin [Neurontin] 1,200 mg PO TID 02/27/14 05/14/18 History Glucosamine Sulfate 1,500 mg PO DAILY 02/27/14 05/14/18 History Lansoprazole [Prevacid] 15 mg PO HS 02/27/14 05/14/18 History predniSONE 4 mg PO QAM 02/27/14 05/14/18 History Gabapentin 1,600 mg PO HS 03/09/16 05/14/18 History hydrOXYzine HCL [Atarax] 50 mg PO HS 04/12/16 05/14/18 History Folic Acid 1 mg PO DAILY 08/13/16 05/14/18 History Adalimumab [Humira Pen] 40 mg SQ WE 10/17/16 05/14/18 History Atorvastatin [Lipitor] 40 mg PO HS 08/11/17 05/14/18 History Latanoprost [Xalatan 0.005%] 1 drop BOTH EYES HS 08/11/17 05/14/18 History Levothyroxine Sodium [Synthroid] 224 mcg PO DAILY 08/11/17 05/14/18 History Methotrexate Sodium [Methotrexate] 12.5 mg PO WE 08/11/17 05/14/18 History Pilocarpine HCl [Salagen] 7.5 mg PO TID 08/11/17 05/14/18 History metFORMIN HCL [Glucophage] 1,000 mg PO AC-BID 08/11/17 05/14/18 History traMADol HCL [Ultram] 50 mg PO Q6HR PRN 08/11/17 05/14/18 History Nitroglycerin Sl Tabs [Nitrostat] 0.4 mg SUBLINGUAL Q5M PRN #30 tab 08/13/17 05/14/18 Rx Verapamil Sr [Isoptin Sr] 240 mg PO DAILY #30 tablet.er 08/13/17 05/14/18 Rx Apixaban [Eliquis] 5 mg PO BID #60 tab 08/30/17 05/14/18 Rx Metoprolol Tartrate [Lopressor] 25 mg PO BID #60 tab 08/30/17 05/14/18 Rx Insulin NPH Hum/Reg Insulin Hm See Protocol SQ ACHS 09/06/17 05/14/18 History [NovoLIN 70-30 100 UNIT/ML VIAL] Furosemide [Lasix] 40 mg PO BID@0900,1600 tab 09/10/17 05/14/18 Rx Aspirin 325 mg PO DAILY 10/17/17 05/14/18 History Acetaminophen [Tylenol Arthritis] 650 mg PO Q6H PRN 05/14/18 05/14/18 History Multivitamins, Thera [Multivitamin 1 tab PO DAILY 05/14/18 05/14/18 History (formulary)] Allergies Allergy/AdvReac Type Severity Reaction Status Date / Time adhesive Allergy Rash/Hives Verified 05/14/18 07:57 cephalexin [From Keflex] Allergy Rash/Hives Verified 05/14/18 07:57 grass pollen Allergy Unknown Verified 05/14/18 07:57 mold Allergy Unknown Verified 05/14/18 07:57 Sulfa (Sulfonamide Allergy Rash/Hives Verified 05/14/18 07:57 Antibiotics) newspaper ink Allergy Unknown Uncoded 10/17/17 11:35 Physical Exam Vitals: Vital Signs Temp Pulse Resp BP Pulse Ox 05/14/18 09:33 98.4 F 102 H 16 138/69 95 05/14/18 05:35 100.5 F H 05/14/18 05:30 100 F H 112 H 20 151/73 97 05/14/18 03:10 120 H 05/14/18 03:00 110 H 20 159/76 97 05/14/18 02:51 112 H 22 158/72 100 05/14/18 02:48 118 H 05/14/18 02:30 102 F H 05/14/18 01:13 101.4 F H 132 H 32 H 168/84 93 L Intake and Output 05/13/18 05/14/18 05/14/18 22:59 06:59 14:59 Other: Weight 134.717 kg PHYSICAL EXAM: VITAL SIGNS: WNL. HR 98. GENERAL: Well developed, in no acute distress. HEENT: Head is atraumatic, normocephalic. Pupils are equal, round. Extra ocular movements intact. Mucous membranes moist. Neck supple. No JVD. No carotid bruit. No thyromegaly. LUNGS: Clear to auscultation no wheezes, rales or rhonchi. No chest wall tenderness on palpation or with deep breathing. HEART: Regular rate and rhythm, no rubs or gallops. S1 and S2 heard. No murmur. ABDOMEN: Abdominal exam, WNL. Bowel sounds x4 quads. Soft, non-tender, without masses, organomegaly, or abdominal aorta enlargement. EXTREMITIES/VASCULAR: Extremities have easily palpable radial, femoral, dorsalis pedis and posterior tibial pulses. No cyanosis, calf tenderness. No BLE edema. NEUROLOGIC: Patient is awake, alert and oriented x3. No focal neurologic abnormalities. Results 05/14/18 10:24 05/14/18 02:48 Cardiac Enzymes 05/14/18 05/14/18 05/14/18 Range/Units 02:48 02:48 10:24 AST 31 (14-36) U/L Troponin I 0.042 H* 0.029 (0.000-0.034) ng/mL Coagulation 05/14/18 05/14/18 Range/Units 02:48 10:24 PT 10.6 10.5 (9.0-12.0) sec APTT 23.5 33.4 H (22.0-30.0) sec CBC 05/14/18 05/14/18 Range/Units 02:48 10:24 WBC 9.0 7.5 (3.8-10.6) k/uL RBC 4.49 4.54 (3.80-5.40) m/uL Hgb 13.5 13.4 (11.4-16.0) gm/dL Hct 43.1 42.8 (34.0-46.0) % Plt Count 158 187 (150-450) k/uL Comprehensive Metabolic Panel 05/14/18 Range/Units 02:48 Sodium 136 L (137-145) mmol/L Potassium 3.9 (3.5-5.1) mmol/L Chloride 99 (98-107) mmol/L Carbon Dioxide 27 (22-30) mmol/L BUN 12 (7-17) mg/dL Creatinine 0.44 L (0.52-1.04) mg/dL Glucose 180 H (74-99) mg/dL Calcium 9.1 (8.4-10.2) mg/dL AST 31 (14-36) U/L ALT 31 (9-52) U/L Alkaline Phosphatase 56 (38-126) U/L Total Protein 6.5 (6.3-8.2) g/dL Albumin 3.6 (3.5-5.0) g/dL Current Medications Generic Name Dose Route Start Last Admin Trade Name Freq PRN Reason Stop Dose Admin Acetaminophen 650 mg 05/14/18 04:51 Tylenol Tab PO Q6HR PRN Fever and/ or Pain Albuterol/Ipratropium 3 ml 05/14/18 08:00 05/14/18 11:27 Duoneb 0.5 Mg-3 Mg/3 Ml Soln INHALATION Not Given RT-Q4H [facility] Albuterol/Ipratropium 3 ml 05/14/18 04:51 Duoneb 0.5 Mg-3 Mg/3 Ml Soln INHALATION RT-Q2H PRN Shortness Of Breath Or Wheezing Atorvastatin Calcium 40 mg 05/14/18 21:00 Lipitor PO HS [facility] Calcium Carbonate 1 each 05/14/18 09:00 05/14/18 10:22 Oscal 500+D PO 1 each BID [facility] Administration Folic Acid 1 mg 03/18/19 12:00 05/14/18 10:23 Folic Acid PO 1 mg 1200 [facility] Administration Gabapentin 1,600 mg 05/14/18 21:00 Neurontin PO HS [facility] Heparin Sodium (Porcine) 0 unit 05/14/18 04:29 Heparin IV PER PROTOCOL PRN Low PTT Protocol Hydroxyzine HCl 50 mg 05/14/18 21:00 Atarax PO HS [facility] Heparin Sodium/Sodium Chloride 250 mls @ 9.43 mls/hr 05/14/18 04:30 05/14/18 05:38 25,000 unit/ Sodium Chloride IV 7 units/kg/hr .Q24H [facility] 9.43 mls/hr Administration Protocol 7 UNITS/KG/HR Latanoprost 1 drops 05/14/18 21:00 Xalatan 0.005% BOTH EYES HS [facility] Levothyroxine Sodium 224 mcg 05/14/18 09:00 05/14/18 10:20 Synthroid PO 224 mcg 0630 [facility] Administration Methylprednisolone Sodium Succinate 60 mg 05/14/18 06:00 Solu-Medrol IV Q6HR [facility] Metoprolol Tartrate 50 mg 05/14/18 21:00 Lopressor PO BID [facility] Morphine Sulfate 2 mg 05/14/18 04:48 Morphine Sulfate (Inj) IVP Q5M PRN Chest Pain Multivitamins 1 each 05/14/18 12:00 05/14/18 10:21 Theragran PO 1 each 1200 [facility] Administration Nitroglycerin 0.4 mg 05/14/18 04:48 Nitrostat SUBLINGUAL Q5M PRN Chest Pain Pantoprazole Sodium 40 mg 05/14/18 21:00 Protonix PO HS [facility] Pilocarpine HCl 7.5 mg 05/14/18 09:00 05/14/18 10:21 Salagen PO 7.5 mg TID [facility] Administration Tramadol HCl 50 mg 05/14/18 08:07 Ultram PO Q6HR PRN Pain Verapamil HCl 240 mg 05/14/18 09:00 05/14/18 10:23 Isoptin Sr PO 240 mg DAILY [facility] Administration Intake and Output 05/13/18 05/14/18 05/14/18 22:59 06:59 14:59 Other: Weight 134.717 kg 05/14/18 10:24 05/14/18 02:48 - EKG Interpretation EKG: sinus rhythm (, HR 98) Assessment and Plan Plan: 1. acute upper respiratory tract infection 2. troponin elevation, not suggestive of acute myocardial injury 3. Tachycardia, fever. With history of atrial fibrillation status post cardioversion increased metoprolol titrate 50 mg twice daily. PLAN: [Troponin elevation secondary to acute upper respiratory infection. No acute myocardial injury. Discontinue aspirin. Increase metoprolol tartrate to 50 mg twice daily. Will follow along, call with questions or concerns.]
[2018-05-14 13:18] LABS: Glucose,Whole Blood 330 mg/dL (75-99)
[2018-05-14 16:55] LABS: Glucose,Whole Blood 321 mg/dL (75-99)
[2018-05-14] MEDS: methylPREDNISolone SOD SUCCI 125 MG/2 ML VIAL IV SCH ×3 (17:18→23:41)
[2018-05-14] MEDS ORDERED: CLOTRIMAZOLE 1% CREAM 15 GM TUBE TOPICAL PRN (18:07)
[2018-05-14] MEDS: GABAPENTIN 400 MG CAP PO SCH ×2 (19:01→21:23)
[2018-05-14] MEDS: traMADol 50 MG TAB PO PRN (19:10)
[2018-05-14 20:43] LABS: Glucose,Whole Blood 318 mg/dL (75-99)
[2018-05-14] MEDS: ATORVASTATIN 40 MG TAB PO SCH (21:20)
[2018-05-14] MEDS: METOPROLOL TARTRATE 50 MG TAB PO SCH (21:21)
[2018-05-14] MEDS: PANTOPRAZOLE 40 MG TABLET PO SCH (21:21)
[2018-05-14] MEDS: HEPARIN SODIUM,PORCINE 5,000 UNIT/ML 1 ML VIAL IV PRN (21:30)
[2018-05-14] MEDS: hydrOXYzine HCL 25 MG TAB PO SCH (22:01)
[2018-05-14] MEDS: LATANOPROST 0.005% OPHTH DROPS 2.5 ML BTL BOTH EYES SCH (22:01)
[2018-05-14] MEDS: INSULIN ASPART (NovoLOG) 100 UNIT/ML VIAL SQ SCH (22:11)
[2018-05-15] MEDS: IPRATROPIUM-ALBUTEROL 3 ML NEB INHALATION SCH ×5 (03:33→20:40)
[2018-05-15 04:02] LABS: Basophils % (A) 0 %; Eosinophils % (A) 0 %; HCT 42.9 % (34.0-46.0); HGB 13.3 gm/dL (11.4-16.0); Hypochromasia Slight; Lymphocytes # (A) 1.2 k/uL (1.0-4.8); Lymphocytes % (A) 17 %; MCH 29.6 pg (25.0-35.0); MCHC 30.9 g/dL (31.0-37.0); MCV 95.7 fL (80.0-100.0); Mean Platelet Volume 6.3; Monocytes # (A) 0.2 k/uL (0-1.0); Monocytes % (A) 3 %; Neutrophils # (A) 5.6 k/uL (1.3-7.7); Neutrophils % (A) 79 %; Platelet Count 186 k/uL (150-450); RBC 4.48 m/uL (3.80-5.40); RDW 15.7 % (11.5-15.5)
[2018-05-15] MEDS: HEPARIN SODIUM,PORCINE 5,000 UNIT/ML 1 ML VIAL IV PRN (04:13)
[2018-05-15 04:14] LABS: Cholesterol 122 mg/dL (<200); HDL Cholesterol 61 mg/dL (40-60); LDL Cholesterol,Calculated 40 mg/dL (0-99); Triglycerides 103 mg/dL (<150)
[2018-05-15] MEDS: HEPARIN SOD,PORK IN 0.45% NACL 25,000 UNIT in 0.45% NACL 1 250ML.BAG IV SCH (04:14)
[2018-05-15 06:11] LABS: Glucose,Whole Blood 350 mg/dL (75-99)
[2018-05-15] MEDS: methylPREDNISolone SOD SUCCI 125 MG/2 ML VIAL IV SCH (06:13)
[2018-05-15] MEDS: LEVOTHYROXINE 112 MCG TAB PO SCH (06:13)
[2018-05-15] MEDS: GABAPENTIN 400 MG CAP PO SCH ×4 (06:15→17:35)
[2018-05-15] MEDS: INSULIN ASPART (NovoLOG) 100 UNIT/ML VIAL SQ SCH ×4 (06:41→22:12)
--- NOTE | 2018-05-15 07:14 | P.PN ---
Subjective Progress Note Date: 05/15/18 Principal diagnosis: Upper rest or infection with chest pain element of elevated troponin. The patient is much improved this morning. No overt chest pressure. Appreciate cardiology consult. At this time, her atrial fibrillation is fairly stable. No significant chills or sweats. Recent relation and discontinue heparin when cleared by cardiology. Objective - Vital Signs Vital signs: Vital Signs Temp 99 F 05/15/18 03:52 Pulse 94 05/15/18 03:53 Resp 18 05/15/18 03:53 BP 175/82 05/15/18 03:52 Pulse Ox 95 05/15/18 04:48 Intake & Output 05/14/18 05/15/18 05/15/18 18:59 06:59 18:59 Intake Total 240 1770.964 Balance 240 1770.964 Weight 134.859 kg Intake: IV 330 normal saline 330 Intake, IV Titration 240.964 Amount Heparin Sod,Pork in 0.45% 240.964 NaCl 25,000 unit In 0.45 % NaCl 1 250ml.bag @ 7 UNITS/KG/HR 9.43 mls/hr IV .Q24H [facility] Rx#: [id number] Oral 240 1200 Other: Voiding Method Toilet Toilet Diaper Diaper # Voids 1 3 - Constitutional General appearance: Present: obese - EENT Eyes: Absent: abnormal pupil - Neck Neck: Absent: lymphadenopathy - Respiratory Respiratory: bilateral: CTA - Cardiovascular Rhythm: irregularly irregular Abnormal Heart Sounds: Absent: S3 Gallop - Gastrointestinal General gastrointestinal: Present: soft. Absent: tenderness - Neurologic Neurologic: Present: CNII-XII intact. Absent: focal deficits - Labs CBC & Chem 7: 05/15/18 03:34 05/14/18 02:48 Labs: Abnormal Lab Results - Last 24 Hours (Table) 05/14/18 05/14/18 05/14/18 Range/Units 10:24 13:16 16:51 MCHC (31.0-37.0) g/dL RDW (11.5-15.5) % APTT 33.4 H (22.0-30.0) sec POC Glucose (mg/dL) 330 H 321 H (75-99) mg/dL HDL Cholesterol (40-60) mg/dL 05/14/18 05/15/18 05/15/18 Range/Units 20:41 03:34 03:34 MCHC 30.9 L (31.0-37.0) g/dL RDW 15.7 H (11.5-15.5) % APTT (22.0-30.0) sec POC Glucose (mg/dL) 318 H (75-99) mg/dL HDL Cholesterol 61 H (40-60) mg/dL 05/15/18 05/15/18 Range/Units 03:34 06:06 MCHC (31.0-37.0) g/dL RDW (11.5-15.5) % APTT 31.0 H (22.0-30.0) sec POC Glucose (mg/dL) 350 H (75-99) mg/dL HDL Cholesterol (40-60) mg/dL Microbiology - Last 24 Hours (Table) 05/14/18 02:48 Blood Culture - Preliminary Blood No Growth after 24 hours Assessment and Plan (1) Acute bronchitis Current Visit: Yes Status: Acute Code(s): J20.9 - ACUTE BRONCHITIS, UNSPECIFIED SNOMED Code(s): 70706451 (2) Elevated troponin Current Visit: Yes Status: Acute Code(s): R74.8 - ABNORMAL LEVELS OF OTHER SERUM ENZYMES SNOMED Code(s): 778531221 (3) Atrial fibrillation with RVR Current Visit: No Status: Acute Code(s): I48.91 - UNSPECIFIED ATRIAL FIBRILLATION SNOMED Code(s): 254369344005375 (4) CAD (coronary artery disease) Current Visit: No Status: Acute Code(s): I25.10 - ATHSCL HEART DISEASE OF [place] CORONARY ARTERY W/O ANG PCTRS SNOMED Code(s): 48490097 (5) Generalized weakness Current Visit: No Status: Acute Code(s): R53.1 - WEAKNESS SNOMED Code(s): 33898913 (6) Gout Current Visit: No Status: Acute Code(s): M10.9 - GOUT, UNSPECIFIED SNOMED Code(s): 05276345 (7) Increased weakness when ambulating Current Visit: No Status: Acute Code(s): R53.1 - WEAKNESS SNOMED Code(s): 179640613 Plan: We'll continue to follow. Decrease Solu-Medrol. Anticoagulation element. New. Check CBC and CMP in a.m. Anticipate discharge in a.m. Time with Patient: Less than 30
[2018-05-15] MEDS: FUROSEMIDE 40 MG TAB PO SCH ×2 (07:55→17:56)
[2018-05-15] MEDS: FOLIC ACID 1 MG TAB PO SCH (07:55)
[2018-05-15] MEDS: VERAPAMIL SR 240 MG TABLET.ER PO SCH (07:56)
[2018-05-15] MEDS: MULTIVITAMINS, THERA 1 EACH TAB PO SCH (07:56)
[2018-05-15] MEDS: APIXABAN 5 MG TAB PO SCH ×2 (07:56→21:47)
[2018-05-15] MEDS: METOPROLOL TARTRATE 50 MG TAB PO SCH ×2 (07:56→21:51)
[2018-05-15] MEDS: methylPREDNISolone SOD SUCCI 40 MG/ML 1 ML VIAL IV SCH ×3 (07:57→23:37)
[2018-05-15] MEDS: AZITHROMYCIN 500 MG TAB PO SCH (07:57)
[2018-05-15] MEDS: CALCIUM CARB-VIT D 500MG-200UN 1 EACH TAB PO SCH ×2 (07:57→21:47)
[2018-05-15] MEDS: PILOCARPINE 5 MG TAB PO SCH ×3 (07:57→21:53)
[2018-05-15] MEDS: metFORMIN 500 MG TAB PO SCH ×2 (08:03→17:55)
[2018-05-15] MEDS ORDERED: ASPIRIN 325 MG TAB PO SCH (09:00)
[2018-05-15] MEDS: traMADol 50 MG TAB PO PRN ×2 (10:48→21:58)
[2018-05-15 12:07] LABS: Glucose,Whole Blood 328 mg/dL (75-99)
--- NOTE | 2018-05-15 12:47 | P.PN ---
Subjective Progress Note Date: 05/15/18 05/15/2018 Patient continues sinus rhythm on telemetry s/p cardioversion 2017. Patient in no acute distress sitting up in chair with no current complaints of shortness of breath or chest pain. Patient currently afebrile. She states she feels much better this day. DC IV heparin, no need for subcutaneous heparin with eliquis anticoagulation. Continue all other cardiac meds, continue IV steroids and ca utious IV fluid administration. Will continue to follow, please call with questions or concerns. Objective - Vital Signs Vital signs: Vital Signs Temp 98.4 F 05/15/18 07:55 Pulse 91 05/15/18 07:55 Resp 20 05/15/18 07:55 BP 143/90 05/15/18 07:55 Pulse Ox 94 L 05/15/18 07:55 Intake & Output 05/14/18 05/15/18 05/15/18 18:59 06:59 18:59 Intake Total 240 1770.964 Balance 240 1770.964 Weight 134.859 kg Intake: IV 330 normal saline 330 Intake, IV Titration 240.964 Amount Heparin Sod,Pork in 0.45% 240.964 NaCl 25,000 unit In 0.45 % NaCl 1 250ml.bag @ 7 UNITS/KG/HR 9.43 mls/hr IV .Q24H [facility] Rx#: [id number] Oral 240 1200 Other: Voiding Method Toilet Toilet Diaper Diaper # Voids 1 3 - Labs CBC & Chem 7: 05/15/18 03:34 05/14/18 02:48 Labs: Abnormal Lab Results - Last 24 Hours (Table) 05/14/18 05/14/18 05/14/18 Range/Units 13:16 16:51 20:41 MCHC (31.0-37.0) g/dL RDW (11.5-15.5) % APTT (22.0-30.0) sec POC Glucose (mg/dL) 330 H 321 H 318 H (75-99) mg/dL HDL Cholesterol (40-60) mg/dL 05/15/18 05/15/18 05/15/18 Range/Units 03:34 03:34 03:34 MCHC 30.9 L (31.0-37.0) g/dL RDW 15.7 H (11.5-15.5) % APTT 31.0 H (22.0-30.0) sec POC Glucose (mg/dL) (75-99) mg/dL HDL Cholesterol 61 H (40-60) mg/dL 05/15/18 05/15/18 05/15/18 Range/Units 06:06 10:05 11:48 MCHC (31.0-37.0) g/dL RDW (11.5-15.5) % APTT 45.9 H (22.0-30.0) sec POC Glucose (mg/dL) 350 H 328 H (75-99) mg/dL HDL Cholesterol (40-60) mg/dL Microbiology - Last 24 Hours (Table) 05/14/18 02:48 Blood Culture - Preliminary Blood No Growth after 24 hours
[2018-05-15] MEDS ORDERED: INSULIN ASPART (NovoLOG) 100 UNIT/ML VIAL SQ ONE ×2 (13:34→21:17)
[2018-05-15 15:50] LABS: Hemoglobin A1C 8.4 % (4.0-6.0)
[2018-05-15 16:47] LABS: Glucose,Whole Blood 288 mg/dL (75-99)
[2018-05-15 19:39] LABS: Glucose,Whole Blood 320 mg/dL (75-99)
[2018-05-15] MEDS: ATORVASTATIN 40 MG TAB PO SCH (21:47)
[2018-05-15] MEDS: LATANOPROST 0.005% OPHTH DROPS 2.5 ML BTL BOTH EYES SCH (21:50)
[2018-05-15] MEDS: PANTOPRAZOLE 40 MG TABLET PO SCH (21:52)
[2018-05-15] MEDS: hydrOXYzine HCL 25 MG TAB PO SCH (22:13)
[2018-05-16] MEDS: IPRATROPIUM-ALBUTEROL 3 ML NEB INHALATION SCH ×3 (00:12→07:36)
[2018-05-16] MEDS: traMADol 50 MG TAB PO PRN (05:57)
[2018-05-16 07:15] LABS: Glucose,Whole Blood 347 mg/dL (75-99)
[2018-05-16] MEDS: INSULIN ASPART (NovoLOG) 100 UNIT/ML VIAL SQ SCH (07:21)
[2018-05-16] MEDS: FUROSEMIDE 40 MG TAB PO SCH (07:21)
[2018-05-16] MEDS: AZITHROMYCIN 500 MG TAB PO SCH (07:21)
[2018-05-16] MEDS: CALCIUM CARB-VIT D 500MG-200UN 1 EACH TAB PO SCH (07:22)
[2018-05-16] MEDS: APIXABAN 5 MG TAB PO SCH (07:22)
[2018-05-16] MEDS: methylPREDNISolone SOD SUCCI 40 MG/ML 1 ML VIAL IV SCH (07:22)
[2018-05-16] MEDS: metFORMIN 500 MG TAB PO SCH (07:22)
[2018-05-16] MEDS: GABAPENTIN 400 MG CAP PO SCH (07:22)
[2018-05-16] MEDS: METOPROLOL TARTRATE 50 MG TAB PO SCH (07:23)
[2018-05-16] MEDS: PILOCARPINE 5 MG TAB PO SCH (07:23)
[2018-05-16] MEDS: MULTIVITAMINS, THERA 1 EACH TAB PO SCH (07:23)
[2018-05-16] MEDS: FOLIC ACID 1 MG TAB PO SCH (07:23)
[2018-05-16] MEDS ORDERED: INSULIN ASPART (NovoLOG) 100 UNIT/ML VIAL SQ SCH (07:30)
[2018-05-16 07:49] VITALS: BP 176/74; PULSE 80; RESP 16; TEMP 97.4
--- NOTE | 2018-05-16 07:53 | P.DS ---
Providers Date of admission: 05/14/18 05:32 Attending physician: Nicholas Hart Consults: 05/14/18 04:48 Consult Physician Urgent Consulting Provider: [facility] Consult Reason/Comments: Chest Pain; Elevated trop Do you want consulting provider notified?: Yes Primary care physician: Nicholas Hart - Discharge Diagnosis(es) (1) Acute bronchitis Current Visit: Yes Status: Acute (2) Elevated troponin Current Visit: Yes Status: Acute (3) Atrial fibrillation with RVR Current Visit: No Status: Acute (4) CAD (coronary artery disease) Current Visit: No Status: Acute (5) Generalized weakness Current Visit: No Status: Acute (6) Gout Current Visit: No Status: Acute (7) Increased weakness when ambulating Current Visit: No Status: Acute Hospital Course: This discharge summary 77 or white female with history of H fibrillation diabetes morbid obesity and elements of fibromyalgia and rheumatoid arthritis. The patient was admitted for chest pain with elevated troponin. The patient ended up having clearance from cardiology but this continue to be treated for lower respiratory infection. The patient is doing quite well and will be discharged in stable but fair condition to be followed me in about one week. Patient Condition at Discharge: Fair Plan - Discharge Summary Discharge Rx Participant: No New Discharge Prescriptions: New Metoprolol Tartrate [Lopressor] 50 mg PO BID #60 tab Azithromycin [Zithromax] 500 mg PO DAILY #3 tab Continue Gabapentin [Neurontin] 1,200 mg PO TID Glucosamine Sulfate 1,500 mg PO DAILY Lansoprazole [Prevacid] 15 mg PO HS Clotrimazole Cream [Lotrimin Cream] 1 applic TOPICAL DAILY PRN PRN Reason: Rash Calcium Carbonate/Vitamin D3 [Calcium 600-Vit D3 400 Tablet] 1 tab PO BID predniSONE 4 mg PO QAM Gabapentin 1,600 mg PO HS hydrOXYzine HCL [Atarax] 50 mg PO HS Folic Acid 1 mg PO DAILY Adalimumab [Humira Pen] 40 mg SQ WE Atorvastatin [Lipitor] 40 mg PO HS Latanoprost [Xalatan 0.005%] 1 drop BOTH EYES HS Levothyroxine Sodium [Synthroid] 224 mcg PO DAILY metFORMIN HCL [Glucophage] 1,000 mg PO AC-BID Methotrexate Sodium [Methotrexate] 12.5 mg PO WE traMADol HCL [Ultram] 50 mg PO Q6HR PRN PRN Reason: Pain Pilocarpine HCl [Salagen] 7.5 mg PO TID Nitroglycerin Sl Tabs [Nitrostat] 0.4 mg SUBLINGUAL Q5M PRN #30 tab PRN Reason: Chest Pain Verapamil Sr [Isoptin Sr] 240 mg PO DAILY #30 tablet.er Apixaban [Eliquis] 5 mg PO BID #60 tab Insulin NPH Hum/Reg Insulin Hm [NovoLIN 70-30 100 UNIT/ML VIAL] See Protocol SQ ACHS Furosemide [Lasix] 40 mg PO BID@0900,1600 tab Aspirin 325 mg PO DAILY Multivitamins, Thera [Multivitamin (formulary)] 1 tab PO DAILY Acetaminophen [Tylenol Arthritis] 650 mg PO Q6H PRN PRN Reason: Pain Discontinued Metoprolol Tartrate [Lopressor] 25 mg PO BID #60 tab Discharge Medication List Calcium Carbonate/Vitamin D3 [Calcium 600-Vit D3 400 Tablet] 1 tab PO BID [History] Clotrimazole Cream [Lotrimin Cream] 1 applic TOPICAL DAILY PRN 02/27/14 [History] Gabapentin [Neurontin] 1,200 mg PO TID 02/27/14 [History] Glucosamine Sulfate 1,500 mg PO DAILY 02/27/14 [History] Lansoprazole [Prevacid] 15 mg PO HS 02/27/14 [History] predniSONE 4 mg PO QAM 02/27/14 [History] Gabapentin 1,600 mg PO HS 03/09/16 [History] hydrOXYzine HCL [Atarax] 50 mg PO HS 04/12/16 [History] Folic Acid 1 mg PO DAILY 08/13/16 [History] Adalimumab [Humira Pen] 40 mg SQ WE 10/17/16 [History] Atorvastatin [Lipitor] 40 mg PO HS 08/11/17 [History] Latanoprost [Xalatan 0.005%] 1 drop BOTH EYES HS 08/11/17 [History] Levothyroxine Sodium [Synthroid] 224 mcg PO DAILY 08/11/17 [History] Methotrexate Sodium [Methotrexate] 12.5 mg PO WE 08/11/17 [History] Pilocarpine HCl [Salagen] 7.5 mg PO TID 08/11/17 [History] metFORMIN HCL [Glucophage] 1,000 mg PO AC-BID 08/11/17 [History] traMADol HCL [Ultram] 50 mg PO Q6HR PRN 08/11/17 [History] Nitroglycerin Sl Tabs [Nitrostat] 0.4 mg SUBLINGUAL Q5M PRN #30 tab 08/13/17 [Rx] Verapamil Sr [Isoptin Sr] 240 mg PO DAILY #30 tablet.er 08/13/17 [Rx] Apixaban [Eliquis] 5 mg PO BID #60 tab 08/30/17 [Rx] Insulin NPH Hum/Reg Insulin Hm [NovoLIN 70-30 100 UNIT/ML VIAL] See Protocol SQ ACHS 09/06/17 [History] Furosemide [Lasix] 40 mg PO BID@0900,1600 tab 09/10/17 [Rx] Aspirin 325 mg PO DAILY 10/17/17 [History] Acetaminophen [Tylenol Arthritis] 650 mg PO Q6H PRN 05/14/18 [History] Multivitamins, Thera [Multivitamin (formulary)] 1 tab PO DAILY 05/14/18 [History] Azithromycin [Zithromax] 500 mg PO DAILY #3 tab 05/16/18 [Rx] Metoprolol Tartrate [Lopressor] 50 mg PO BID #60 tab 05/16/18 [Rx] Follow up Appointment(s)/Referral(s): [facility] [Provider Group] - 1 Week Nicholas Hart MD [Primary Care Provider] - 1-2 days Patient Instructions/Handouts: Chest Pain (DC), Dyspnea (DC)
[2018-05-16] MEDS ORDERED: METHOTREXATE SODIUM 2.5 MG TAB PO SCH (09:00)
[2018-05-16] MEDS: LEVOTHYROXINE 112 MCG TAB PO SCH (09:07)
[2018-05-16] MEDS: VERAPAMIL SR 240 MG TABLET.ER PO SCH (09:08)
== END 2018-05-16 10:16 | disposition home or self-care (01) | DRG 203 ==
LOC: EC 01:03 → 3SCARD 05:32 → 4MS4W 05-15 22:48
PROVIDERS: ADMIT Internal Medicine; ATTEND Family Medicine
DX: J20.9 Acute bronchitis, unspecified (principal); E03.9 Hypothyroidism, unspecified; E11.9 Type 2 diabetes mellitus without complications; E78.5 Hyperlipidemia, unspecified; G89.4 Chronic pain syndrome; I10 Essential (primary) hypertension; I25.10 Atherosclerotic heart disease of native coronary artery without angina pectoris; I48.91 Unspecified atrial fibrillation; M06.9 Rheumatoid arthritis, unspecified; M10.9 Gout, unspecified; M35.00 Sjogren syndrome, unspecified; M79.7 Fibromyalgia; Z79.01 Long term (current) use of anticoagulants; Z79.4 Long term (current) use of insulin; Z79.82 Long term (current) use of aspirin; Z79.890 Hormone replacement therapy; Z79.899 Other long term (current) drug therapy; Z85.820 Personal history of malignant melanoma of skin; Z87.891 Personal history of nicotine dependence; Z98.42 Cataract extraction status, left eye; Z98.41 Cataract extraction status, right eye; Z96.1 Presence of intraocular lens; R26.89 Other abnormalities of gait and mobility; Z82.3 Family history of stroke; Z83.6 Family history of other diseases of the respiratory system; Z80.9 Family history of malignant neoplasm, unspecified; M48.00 Spinal stenosis, site unspecified; I73.00 Raynaud's syndrome without gangrene; Z82.0 Family history of epilepsy and other diseases of the nervous system; Z86.14 Personal history of Methicillin resistant Staphylococcus aureus infection; Z87.440 Personal history of urinary (tract) infections; Z88.1 Allergy status to other antibiotic agents; Z88.2 Allergy status to sulfonamides; Z96.642 Presence of left artificial hip joint
CPT/HCPCS: 36415; 71046; 80053; 80061; 81001; 83036; 83605; 84484; 85025; 85610; 85730; 87040; 87502; 93005; 94640; 96361; 96365; 96366; 96374; 96376; 99285

== ENCOUNTER 2018-09-25 10:04 | Emergency (ER) | payer MEDICARE ==
--- NOTE | 2018-09-25 10:24 | ED ---
General Adult HPI - General Chief complaint: Overdose Stated complaint: Accidental insulin overdose Time Seen by Provider: 09/25/18 10:09 Source: patient Mode of arrival: wheelchair Limitations: no limitations - History of Present Illness Initial comments: Patient is a 78-year-old female presenting to the emergency Department with complaints of accidentally taking 46 units of Humalog x 1 hour ago. Patient states her doctor recently switched her insulin to Tresiba and novalog and she got her bottles mixed up this morning and actually took Humalog instead. Patient states she called her doctor and he recommended coming to the ER to be evaluated. Patient states she feels a little "out of it" but denies nausea, vomiting, dizziness, chest pain, shortness of breath, sweating. Patient states she has not eaten anything today but did have some juice and an egg salad sandwich in the ER waiting room. Patient has multiple comorbidities including A. fib, diabetes, hypertension, renal disease among the few. No other complaints at this time. Upon arrival, patient is sitting comfortably on the bed eating a sandwich with her present. - Related Data Home Medications Medication Instructions Recorded Confirmed Calcium Carbonate/Vitamin D3 1 tab PO BID 02/27/14 09/25/18 [Calcium 600-Vit D3 400 Tablet] Clotrimazole Cream [Lotrimin Cream] 1 applic TOPICAL DAILY PRN 02/27/14 09/25/18 Gabapentin [Neurontin] 1,600 mg PO DAILY 02/27/14 09/25/18 Glucosamine Sulfate 500 mg PO TID 02/27/14 09/25/18 Lansoprazole [Prevacid] 15 mg PO HS 02/27/14 09/25/18 hydrOXYzine HCL [Atarax] 50 mg PO HS 04/12/16 09/25/18 Folic Acid 1 mg PO DAILY 08/13/16 09/25/18 Latanoprost [Xalatan 0.005%] 1 drop BOTH EYES HS 08/11/17 09/25/18 Levothyroxine Sodium [Synthroid] 224 mcg PO DAILY 08/11/17 09/25/18 Methotrexate Sodium [Methotrexate] 12.5 mg PO WE 08/11/17 09/25/18 Pilocarpine HCl [Salagen] 7.5 mg PO TID 08/11/17 09/25/18 metFORMIN HCL [Glucophage] 1,000 mg PO AC-BID 08/11/17 09/25/18 Aspirin 325 mg PO DAILY 10/17/17 09/25/18 Acetaminophen [Tylenol Arthritis] 650 mg PO Q6H PRN 05/14/18 09/25/18 Multivitamins, Thera [Multivitamin 1 tab PO DAILY 05/14/18 09/25/18 (formulary)] Adalimumab [Humira Pediatric] 40 mg SQ WE 09/25/18 09/25/18 Cyclobenzaprine [Flexeril] 10 mg PO BID 09/25/18 09/25/18 Furosemide [Lasix] 80 mg PO DAILY 09/25/18 09/25/18 Gabapentin 1,200 mg PO TID 09/25/18 09/25/18 HYDROcodone/APAP 10-325MG [Boaz 1 tab PO Q6HR PRN 09/25/18 09/25/18 10-325] Insulin Degludec [Tresiba] 46 units SQ DAILY 09/25/18 09/25/18 Insulin Lispro [humaLOG Kwikpen] 3 unit SQ AC-TID 09/25/18 09/25/18 Metoprolol Tartrate [Lopressor] 25 mg PO BID 09/25/18 09/25/18 Moexipril HCl [Univasc] 15 mg PO DAILY 09/25/18 09/25/18 Montelukast [Singulair] 10 mg PO HS 09/25/18 09/25/18 Rosuvastatin [Crestor] 10 mg PO HS 09/25/18 09/25/18 Tolterodine Tartrate [Detrol LA] 4 mg PO DAILY 09/25/18 09/25/18 predniSONE 5 mg PO BID 09/25/18 09/25/18 Previous Rx's Medication Instructions Recorded Nitroglycerin Sl Tabs [Nitrostat] 0.4 mg SUBLINGUAL Q5M PRN #30 tab 08/13/17 Verapamil Sr [Isoptin Sr] 240 mg PO DAILY #30 tablet.er 08/13/17 Apixaban [Eliquis] 5 mg PO BID #60 tab 08/30/17 Allergies Allergy/AdvReac Type Severity Reaction Status Date / Time adhesive Allergy Rash/Hives Verified 09/25/18 10:26 cephalexin [From Keflex] Allergy Rash/Hives Verified 09/25/18 10:26 grass pollen Allergy Unknown Verified 09/25/18 10:26 mold Allergy Unknown Verified 09/25/18 10:26 Sulfa (Sulfonamide Allergy Rash/Hives Verified 09/25/18 10:26 Antibiotics) newspaper ink Allergy Unknown Uncoded 09/25/18 10:12 Review of Systems ROS Statement: Those systems with pertinent positive or pertinent negative responses have been documented in the HPI. ROS Other: All systems not noted in ROS Statement are negative. Past Medical History Past Medical History: Atrial Fibrillation, Cancer, Diabetes Mellitus, Hyperlipidemia, Hypertension, Musculoskeletal Disorder, Neurologic Disorder, Osteoarthritis (OA), Renal Disease, Rheumatoid Arthritis (RA), Skin Disorder, Thyroid Disorder Additional Past Medical History / Comment(s): IDDM type II, spinal stenosis, Reynauds, neurologic sjogrens BALANCE ISSUES, SINUS INFECTIONS, HAS HAD DOUBLE VISION ALL HER LIFE-when looks certain directions, hypothyroidism, acute kidney failure psoriasis, UTI s, melanoma skin cancer lt arm, bilateral elbow bursitis with MRSA and I&Ds/antibiotics.pt stated never had gout. History of Any Multi-Drug Resistant Organisms: MRSA Date of last positivie culture/infection: 02/27/14 MDRO Source:: Sputum Past Surgical History: Back Surgery, Breast Surgery, Heart Catheterization, Joint Replacement, Orthopedic Surgery Additional Past Surgical History / Comment(s): Bilateral cataracts with lens implants, arthroscopies to lt wrist, gualberto knees, gualberto ankles, gualberto hips, lt hip replacment and redone, L/R shoulder sxs, rt breast bx-benign, egd/colonoscopy, skin cancer removal L arm. Past Anesthesia/Blood Transfusion Reactions: No Reported Reaction Past Psychological History: No Psychological Hx Reported Smoking Status: Former smoker Past Alcohol Use History: None Reported Past Drug Use History: None Reported - Past Family History Mother Family Medical History: CVA/TIA Additional Family Medical History / Comment(s): RUPTURED BOWEL Father Family Medical History: Cancer, Pneumonia Additional Family Medical History / Comment(s): ASPIRATIVE PNA Sister(s) Additional Family Medical History / Comment(s): at age 34 with lupus General Exam - General Exam Comments Initial Comments: GENERAL: Well-appearing, well-nourished and in no acute distress. HEAD: Atraumatic, normocephalic. EYES: Pupils equal round and reactive to light, extraocular movements intact, sclera anicteric, conjunctiva are normal. ENT: TMs normal, nares patent, oropharynx clear without exudates. Moist mucous membranes. NECK: Normal range of motion, supple without lymphadenopathy or JVD. LUNGS: Breath sounds clear to auscultation bilaterally and equal. No wheezes rales or rhonchi. HEART: Regular rate and rhythm without murmurs, rubs or gallops. ABDOMEN: Soft, nontender, normoactive bowel sounds. No guarding, no rebound. No masses appreciated. : Deferred EXTREMITIES: Normal range of motion, no pitting or edema. No clubbing or cyanosis. NEUROLOGICAL: Cranial nerves II through XII grossly intact. Normal speech, normal gait. PSYCH: Normal mood, normal affect. SKIN: Warm, Dry, normal turgor, no rashes or lesions noted. Limitations: no limitations Course Vital Signs 09/25/18 09/25/18 10:07 10:39 Temperature 97.4 F L Pulse Rate 76 Respiratory 18 Rate Blood Pressure 119/84 O2 Sat by Pulse 96 98 Oximetry Medical Decision Making - Medical Decision Making Patient is a 78-year-old female presenting to the ER after accidentally taking too much insulin this morning. Patient states she took 46 units of Humalog by mistake. Upon arrival to ER patient was feeling a little "out of it." The patient's exam is within normal limits. Blood glucose check was 165 upon arrival. I did order some basic lab work but the lab work was lost. Patient did not want to be re-poked. Patient was feeling improvement after eating a sandwich and drinking some apple juice. Patient is wanting to go home. Patient states she will label her medications for this will not happen again. Patient's vital signs remained stable during stay. Patient is stable for discharge. Case discussed with Dr. Staley. Return parameters were discussed with the patient she verbalized understanding. - Lab Data Lab Results 09/25/18 Range/Units 10:34 POC Glucose (mg/dL) 165 H (75-99) mg/dL POC Glu Alterations Tailor ID Sravani Shankar Disposition Clinical Impression: Insulin overdose Disposition: HOME SELF-CARE Condition: Stable Instructions (If sedation given, give patient instructions): Type 2 Diabetes Management for Adults (ED) Additional Instructions: Please return to the Emergency Department if symptoms worsen or any other concerns. Follow-up with PCP as needed Is patient prescribed a controlled substance at d/c from ED?: No Referrals: Nicholas Hart MD [Primary Care Provider] - 1-2 days
[2018-09-25 10:35] LABS: Glucose,Whole Blood 165 mg/dL (75-99)
[2018-09-25 12:22] VITALS: BP 106/64; PULSE 80; RESP 12; TEMP 98.2
[2018-09-25 12:35] LABS: Anisocytosis Slight; Basophils # (A) 0.1 k/uL (0-0.2); Basophils % (A) 1 %; Eosinophils # (A) 0.1 k/uL (0-0.7); Eosinophils % (A) 2 %; HCT 42.8 % (34.0-46.0); HGB 13.5 gm/dL (11.4-16.0); Lymphocytes % (A) 46 %; MCH 27.9 pg (25.0-35.0); MCHC 31.6 g/dL (31.0-37.0); MCV 88.3 fL (80.0-100.0); Mean Platelet Volume 8.1; Monocytes # (A) 0.4 k/uL (0-1.0); Monocytes % (A) 6 %; Neutrophils # (A) 2.8 k/uL (1.3-7.7); Neutrophils % (A) 43 %; Platelet Count 201 k/uL (150-450); RBC 4.85 m/uL (3.80-5.40); RDW 16.1 % (11.5-15.5); WBC 6.4 k/uL (3.8-10.6)
[2018-09-25 12:44] LABS: ALT 46 U/L (9-52); AST 44 U/L (14-36); African American GFR (CKD) >90 (>60 ml/min/1.73 sqM); Alkaline Phosphatase 51 U/L (38-126); Anion Gap 11 mmol/L; Blood Urea Nitrogen 22 mg/dL (7-17); Calcium 10.3 mg/dL (8.4-10.2); Carbon Dioxide 30 mmol/L (22-30); Chloride 99 mmol/L (98-107); Glucose 154 mg/dL (74-99); Potassium 3.3 mmol/L (3.5-5.1); Sodium 140 mmol/L (137-145); Total Bilirubin 0.5 mg/dL (0.2-1.3)
== END 2018-09-25 12:13 | disposition home or self-care (01) ==
LOC: EC 10:04
DX: T38.3X1A Poisoning by insulin and oral hypoglycemic [antidiabetic] drugs, accidental (unintentional), initial encounter (principal); I48.91 Unspecified atrial fibrillation; E78.5 Hyperlipidemia, unspecified; I10 Essential (primary) hypertension; M06.9 Rheumatoid arthritis, unspecified; E03.9 Hypothyroidism, unspecified; E11.9 Type 2 diabetes mellitus without complications; Z85.820 Personal history of malignant melanoma of skin; Z86.14 Personal history of Methicillin resistant Staphylococcus aureus infection; Z95.818 Presence of other cardiac implants and grafts; Z96.642 Presence of left artificial hip joint; Z87.891 Personal history of nicotine dependence; Z79.890 Hormone replacement therapy; Z79.4 Long term (current) use of insulin; Z79.82 Long term (current) use of aspirin; Z79.52 Long term (current) use of systemic steroids; Z79.899 Other long term (current) drug therapy; Z91.048 Other nonmedicinal substance allergy status; Z88.1 Allergy status to other antibiotic agents; Z88.2 Allergy status to sulfonamides
CPT/HCPCS: 36415; 80053; 85025; 99284

== ENCOUNTER → 2018-09-28 | Outpatient (CLI) | payer MEDICARE ==
[2018-09-28 12:45] LABS: African American GFR (CKD) >90 (>60 ml/min/1.73 sqM); Blood Urea Nitrogen 17 mg/dL (7-17)
--- NOTE | 2018-09-28 14:43 | CT ---
EXAMINATION TYPE: CT ChestAbdPelvis w con DATE OF EXAM: 09/28/2018 COMPARISON: Prior exam 04/03/2018 HISTORY: MELANOMA CT DLP: 3009.6 mGycm Automated exposure control for dose reduction was used. CONTRAST: CT scan of the chest, abdomen and pelvis is performed with Oral Contrast and with IV Contrast, patien t injected with 80 mL of Isovue 300. FINDINGS: LUNGS: The lungs are grossly clear, there is no concerning parenchymal mass or nodule identified. T here is no pleural effusion or pneumothorax seen. The tracheobronchial tree is patent. MEDIASTINUM: There are no greater than 1 cm hilar or mediastinal lymph nodes. No pericardial effusi on is seen. Coronary artery calcifications, mitral annular calcification, calcification at the level of the aortic root are again noted AORTA: Atheromatous changes are present, distal abdominal aorta mildly ectatic at approximately 3 cm .. OTHER: No additional significant abnormality is seen. LIVER/GB: The liver shows low attenuation likely due to hepatic steatosis and liver is enlarged, gall bladder is unremarkable. PANCREAS: No significant abnormality is seen. SPLEEN: No significant abnormality is seen. ADRENALS: No significant abnormality is seen. KIDNEYS: Stable, there are likely parapelvic cysts present bilaterally.. REPRODUCTIVE ORGANS: Thought to be stable, there is artifact due to patient's hip prosthesis. BOWEL: No significant abnormality is seen. FREE AIR: No Free Air visible. ASCITES: None seen. RETROPERITONEAL ADENOPATHY: No retroperitoneal adenopathy is seen. LYMPH NODES: No greater than 1 cm abdominal or pelvic lymph nodes are appreciated. URINARY BLADDER: No significant abnormality is seen. PELVIC ADENOPATHY: None visualized. OSSEOUS STRUCTURES: Postop changes noted to the left hip and lumbar spine. IMPRESSION: Stable exam, no significant interval change. Coronary artery disease, correlate for hepat ic steatosis. Postop changes.
== END | disposition home or self-care (01) ==
LOC: RADCTMAIN 12:04
PROVIDERS: ATTEND Internal Medicine Hematology & Oncology
DX: I25.10 Atherosclerotic heart disease of native coronary artery without angina pectoris (principal); R59.0 Localized enlarged lymph nodes; C43.9 Malignant melanoma of skin, unspecified
CPT/HCPCS: 82565; 84520; 71260; 74177; 36415; Q9967

== ENCOUNTER → 2018-10-16 | Outpatient (CLI) | payer MEDICARE ==
--- NOTE | 2018-10-16 23:06 | XR ---
EXAMINATION TYPE: XR tibia fibula LT DATE OF EXAM: 10/16/2018 COMPARISON: Correlation knee radiograph 03/09/2016 HISTORY: 78-year-old female with proximal and lateral leg pain. History of multiple prior fractures. TECHNIQUE: 2 views FINDINGS: As compared to 03/09/2016, there is stable prominent periosteal callus along the proximal fibular shaf t. Moderate to severe loss of cartilage and joint space in the medial compartment with tricompartment al marginal spurring. Some nonspecific soft tissue calcifications are present in the mid pretibial re gion. Additional mature callus formation along the distal fibular shaft. Underlying degenerative change at the tibiotalar joint. Prominent ossification at the medial malleolus without overlying soft tissue sw elling. No acute fracture seen. IMPRESSION: 1. Mature callus involving healed fractures along the proximal and distal fibular shafts. 2. Moderate to severe medial compartmental osteoarthrosis of the knee and moderate to severe tibiotal ar joint osteoarthrosis. 3. Prominent hyperostotic change of the medial malleolus likely reflecting sequela of prior injury.
== END | disposition home or self-care (01) ==
LOC: RADXRMAIN 11:27
PROVIDERS: ATTEND Family Medicine
DX: M17.12 Unilateral primary osteoarthritis, left knee (principal); M19.072 Primary osteoarthritis, left ankle and foot

== ENCOUNTER 2018-11-14 05:43 | Emergency (ER) | payer MEDICARE ==
[2018-11-14 05:53] VITALS: TEMP 97.3
[2018-11-14] MEDS ORDERED: SODIUM CHLORIDE 0.9% 1,000 ML IV STA (06:16)
[2018-11-14] MEDS ORDERED: KETOROLAC 30 MG/ML 1 ML VIAL IVP STA (06:16)
[2018-11-14] MEDS ORDERED: MORPHINE SULFATE 4 MG/ML SYRINGE IV STA (06:16)
--- NOTE | 2018-11-14 06:18 | ED ---
Back Pain HPI - General Chief Complaint: Back Pain/Injury Stated Complaint: Back Pain Time Seen by Provider: 11/14/18 06:04 Source: patient, RN notes reviewed, old records reviewed Limitations: no limitations - History of Present Illness Initial Comments: Patient is a 78-year-old female percent segments department today with 3 days of right-sided mid to lower back pain radiation towards the abdomen. She has history of chronic kidney disease as well as history of incontinence. She states that she is on diuretics and has frequent urination. She also reports history of kidney and urinary tract infections. Patient states that she's had no fever. She's taken multiple doses of her chronic pain medication including Langeloth and Soma and states that she has had no relief of her back pain. She states that she's tried heat and taking admissions a muscle spasm but is continuing to persist despite all efforts. Patient states that she's had no falls or trauma. She denies any significant strenuous activity prior to the onset of her pain. - Related Data Home Medications Medication Instructions Recorded Confirmed Gabapentin [Neurontin] 1,200 mg PO TID 02/27/14 11/14/18 Lansoprazole [Prevacid] 15 mg PO HS 02/27/14 11/14/18 hydrOXYzine HCL [Atarax] 50 mg PO HS 04/12/16 11/14/18 Folic Acid 1 mg PO DAILY 08/13/16 11/14/18 Latanoprost [Xalatan 0.005%] 1 drop BOTH EYES HS 08/11/17 11/14/18 Levothyroxine Sodium [Synthroid] 224 mcg PO DAILY 08/11/17 11/14/18 Pilocarpine HCl [Salagen] 7.5 mg PO TID 08/11/17 11/14/18 metFORMIN HCL [Glucophage] 1,000 mg PO AC-BID@1200,1700 08/11/17 11/14/18 Adalimumab [Humira Pediatric] 40 mg SQ WE 09/25/18 11/14/18 Furosemide [Lasix] 40 mg PO DAILY 09/25/18 11/14/18 HYDROcodone/APAP 10-325MG [Langeloth 1 tab PO Q6HR PRN 09/25/18 11/14/18 10-325] Insulin Degludec [Tresiba] 46 units SQ DAILY 09/25/18 11/14/18 Insulin Lispro [humaLOG Kwikpen] See Protocol SQ AC-TID 09/25/18 11/14/18 Metoprolol Tartrate [Lopressor] 25 mg PO BID 09/25/18 11/14/18 Tolterodine Tartrate [Detrol LA] 4 mg PO DAILY 09/25/18 11/14/18 Amoxicillin 2,000 mg PO ONCE PRN 11/14/18 11/14/18 Gabapentin 1,600 mg PO HS 11/14/18 11/14/18 Leflunomide 20 mg PO DAILY 11/14/18 11/14/18 Methocarbamol [Robaxin] 750 mg PO TID 11/14/18 11/14/18 predniSONE 4 mg PO DAILY 11/14/18 11/14/18 Previous Rx's Medication Instructions Recorded Nitroglycerin Sl Tabs [Nitrostat] 0.4 mg SUBLINGUAL Q5M PRN #30 tab 08/13/17 Verapamil Sr [Isoptin Sr] 240 mg PO DAILY #30 tablet.er 08/13/17 Apixaban [Eliquis] 5 mg PO BID #60 tab 08/30/17 methylPREDNISolone Dose Pack 4 mg PO DIRECTED #21 package 11/14/18 [Medrol Dose Pack] Allergies Allergy/AdvReac Type Severity Reaction Status Date / Time adhesive Allergy Rash/Hives Verified 11/14/18 07:45 cephalexin [From Keflex] Allergy Rash/Hives Verified 11/14/18 07:45 grass pollen Allergy Unknown Verified 11/14/18 07:45 mold Allergy Unknown Verified 11/14/18 07:45 Sulfa (Sulfonamide Allergy Rash/Hives Verified 11/14/18 07:45 Antibiotics) newspaper ink Allergy Unknown Uncoded 09/25/18 10:12 Review of Systems ROS Statement: Those systems with pertinent positive or pertinent negative responses have been documented in the HPI. ROS Other: All systems not noted in ROS Statement are negative. Past Medical History Past Medical History: Atrial Fibrillation, Cancer, Diabetes Mellitus, Hyperlipidemia, Hypertension, Musculoskeletal Disorder, Neurologic Disorder, Osteoarthritis (OA), Renal Disease, Rheumatoid Arthritis (RA), Skin Disorder, Thyroid Disorder Additional Past Medical History / Comment(s): IDDM type II, spinal stenosis, Reynauds, neurologic sjogrens BALANCE ISSUES, SINUS INFECTIONS, HAS HAD DOUBLE VISION ALL HER LIFE-when looks certain directions, hypothyroidism, acute kidney failure psoriasis, UTI s, melanoma skin cancer lt arm, bilateral elbow bursitis with MRSA and I&Ds/antibiotics.pt stated never had gout. History of Any Multi-Drug Resistant Organisms: MRSA Date of last positivie culture/infection: 02/27/14 MDRO Source:: Sputum Past Surgical History: Back Surgery, Breast Surgery, Heart Catheterization, Natali int Replacement, Orthopedic Surgery Additional Past Surgical History / Comment(s): Bilateral cataracts with lens implants, arthroscopies to lt wrist, gualberto knees, gualberto ankles, gualberto hips, lt hip replacment and redone, L/R shoulder sxs, rt breast bx-benign, egd/colonoscopy, skin cancer removal L arm. Past Anesthesia/Blood Transfusion Reactions: No Reported Reaction Past Psychological History: No Psychological Hx Reported Smoking Status: Former smoker Past Alcohol Use History: None Reported Past Drug Use History: None Reported - Past Family History Mother Family Medical History: CVA/TIA Additional Family Medical History / Comment(s): RUPTURED BOWEL Father Family Medical History: Cancer, Pneumonia Additional Family Medical History / Comment(s): ASPIRATIVE PNA Sister(s) Additional Family Medical History / Comment(s): at age 34 with lupus General Exam - General Exam Comments Initial Comments: 78-year-old female. Alert and oriented 3. Patient appears in no significant distress. Sitting in a wheelchair. Limitations: no limitations General appearance: alert, in no apparent distress Head exam: Present: atraumatic, normocephalic, normal inspection Eye exam: Present: normal appearance, PERRL, EOMI. Absent: scleral icterus, conjunctival injection, periorbital swelling ENT exam: Present: normal exam, mucous membranes moist Neck exam: Present: normal inspection. Absent: tenderness, meningismus, lymphadenopathy Respiratory exam: Present: normal lung sounds bilaterally Cardiovascular Exam: Present: regular rate GI/Abdominal exam: Present: soft, normal bowel sounds. Absent: distended, tenderness, guarding, rebound, rigid Extremities exam: Present: normal inspection, full ROM, normal capillary refill, other (Right CVA tenderness.). Absent: tenderness, pedal edema, joint swelling, calf tenderness Back exam: Present: normal inspection Neurological exam: Present: alert, oriented X3, CN II-XII intact Psychiatric exam: Present: normal affect, normal mood Skin exam: Present: warm, dry, intact, normal color. Absent: rash Course Vital Signs 11/14/18 11/14/18 05:45 06:25 Temperature 97.3 F L Pulse Rate 91 64 Respiratory 18 18 Rate Blood Pressure 118/76 107/83 O2 Sat by Pulse 97 96 Oximetry Medical Decision Making - Medical Decision Making This Patient is a 38-year-old female presents emergency room today with back pa in right side reading towards the front of her abdomen. At this time patient's labwork was reviewed and unremarkable including UA. On reevaluation she of back pain and concern for abdominal tenderness. CT on pelvis started. This name for any acute process. Patient was informed of these results Patient feels better after morphine and Toradol. Discussed the Patient started prescribe nifedipine medicine, no further prescription can be completed as well as she receives I and Soma. Discussed is no other concerning findings that muscle spasm. Patient is agreeable to following up with her primary care doctor. Patient instructed to return parameters were discussed. - Lab Data Result diagrams: 11/14/18 06:30 11/14/18 06:30 Lab Results 11/14/18 11/14/18 11/14/18 Range/Units 06:30 06:30 06:55 WBC 7.8 (3.8-10.6) k/uL RBC 4.51 (3.80-5.40) m/uL Hgb 12.9 (11.4-16.0) gm/dL Hct 38.9 (34.0-46.0) % MCV 86.2 (80.0-100.0) fL MCH 28.5 (25.0-35.0) pg MCHC 33.1 (31.0-37.0) g/dL RDW 15.8 H (11.5-15.5) % Plt Count 208 (150-450) k/uL Neutrophils % 47 % Lymphocytes % 42 % Monocytes % 6 % Eosinophils % 2 % Basophils % 1 % Neutrophils # 3.7 (1.3-7.7) k/uL Lymphocytes # 3.3 (1.0-4.8) k/uL Monocytes # 0.5 (0-1.0) k/uL Eosinophils # 0.2 (0-0.7) k/uL Basophils # 0.1 (0-0.2) k/uL Sodium 140 (137-145) mmol/L Potassium 4.0 (3.5-5.1) mmol/L Chloride 101 (98-107) mmol/L Carbon Dioxide 29 (22-30) mmol/L Anion Gap 10 mmol/L BUN 18 H (7-17) mg/dL Creatinine 0.57 (0.52-1.04) mg/dL Est GFR (CKD-EPI)AfAm >90 (>60 ml/min/1.73 sqM) Est GFR (CKD-EPI)NonAf 90 (>60 ml/min/1.73 sqM) Glucose 208 H (74-99) mg/dL Calcium 9.3 (8.4-10.2) mg/dL Total Bilirubin 0.6 (0.2-1.3) mg/dL AST 25 (14-36) U/L ALT 20 (9-52) U/L Alkaline Phosphatase 39 (38-126) U/L Total Protein 6.8 (6.3-8.2) g/dL Albumin 3.8 (3.5-5.0) g/dL Lipase 28 (23-300) U/L Urine Color Yellow Urine Appearance Clear (Clear) Urine pH 5.5 (5.0-8.0) Ur Specific [place] 1.025 (1.001-1.035) Urine Protein Trace H (Negative) Urine Glucose (UA) Negative (Negative) Urine Ketones Negative (Negative) Urine Blood Negative (Negative) Urine Nitrite Negative (Negative) Urine Bilirubin Negative (Negative) Urine Urobilinogen <2.0 (<2.0) mg/dL Ur Leukocyte Esterase Negative (Negative) - Radiology Data Radiology results: report reviewed CT abdomen and pelvis was reviewed negative for any acute findings seen for patient's symptoms. Extensive surgical hent L2 S1. Tachycardia from left hip arthroplasty cousin streaking artifact limiting evaluation posterior structures. Moderate to severe narrowing of the right hip joint. Atherosclerotic changes of the aorta extending to the branch vessels. Ectatic course is noted. No guarding 3 animal changes seen. Cortical thinning of both kidneys as of demonstrated. Some metric obtained with delayed excretion on current study. No hydronephrosis. Pelvic cyst on left kidney. No signs of bowel dilation. No CT evidence for diverticulitis. Disposition Clinical Impression: Back pain Disposition: HOME SELF-CARE Condition: Good Instructions (If sedation given, give patient instructions): Acute Low Back Pain (ED) Additional Instructions: Please use already prescribed medication as discussed. She uses steroids help with inflammation. Please follow up with family doctor if symptoms have not improved over the next two days. Please return to the emergency room if your symptoms increase or worsen or for any other concerns. Prescriptions: methylPREDNISolone Dose Pack [Medrol Dose Pack] 4 mg PO DIRECTED #21 package Is patient prescribed a controlled substance at d/c from ED?: No Referrals: Nicholas Hart MD [Primary Care Provider] - 1-2 days Time of Disposition: 08:39
[2018-11-14 06:52] LABS: Basophils # (A) 0.1 k/uL (0-0.2); Basophils % (A) 1 %; Eosinophils # (A) 0.2 k/uL (0-0.7); Eosinophils % (A) 2 %; HCT 38.9 % (34.0-46.0); HGB 12.9 gm/dL (11.4-16.0); Lymphocytes # (A) 3.3 k/uL (1.0-4.8); Lymphocytes % (A) 42 %; MCH 28.5 pg (25.0-35.0); MCHC 33.1 g/dL (31.0-37.0); MCV 86.2 fL (80.0-100.0); Monocytes # (A) 0.5 k/uL (0-1.0); Monocytes % (A) 6 %; Neutrophils # (A) 3.7 k/uL (1.3-7.7); Neutrophils % (A) 47 %; Platelet Count 208 k/uL (150-450); RBC 4.51 m/uL (3.80-5.40); RDW 15.8 % (11.5-15.5); WBC 7.8 k/uL (3.8-10.6)
[2018-11-14 07:07] LABS: Appearance,Urine Clear (Clear); Bilirubin,Urine Negative (Negative); Blood,Urine Negative (Negative); Color,Urine Yellow; Glucose,Urine (UA) Negative (Negative); Ketones,Urine Negative (Negative); Leukocyte Esterase,Urine Negative (Negative); Nitrite,Urine Negative (Negative); PH, Urine 5.5 (5.0-8.0); Protein,Urine Trace (Negative); Specific Gravity,Urine 1.025 (1.001-1.035); Urobilinogen,Urine <2.0 mg/dL (<2.0)
[2018-11-14 07:20] LABS: ALT 20 U/L (9-52); AST 25 U/L (14-36); African American GFR (CKD) >90 (>60 ml/min/1.73 sqM); Albumin 3.8 g/dL (3.5-5.0); Alkaline Phosphatase 39 U/L (38-126); Anion Gap 10 mmol/L; Blood Urea Nitrogen 18 mg/dL (7-17); Calcium 9.3 mg/dL (8.4-10.2); Carbon Dioxide 29 mmol/L (22-30); Chloride 101 mmol/L (98-107); Glucose 208 mg/dL (74-99); Sodium 140 mmol/L (137-145); Total Bilirubin 0.6 mg/dL (0.2-1.3); Total Protein 6.8 g/dL (6.3-8.2)
--- NOTE | 2018-11-14 08:29 | CT ---
EXAMINATION TYPE: CT abdomen pelvis w con DATE OF EXAM: 11/14/2018 HISTORY: Right sided abdominal and back pain; history of spinal fusion CT DLP: 3828.4mGycm Automated Exposure Control for Dose Reduction was Utilized. CONTRAST: CT scan of the abdomen and pelvis is performed without oral but with IV Contrast, patient injected wi th 100 ml mL of Isovue 300. COMPARISON: CT abdomen and pelvis 6 weeks ago. FINDINGS: LUNG BASES: Coronary artery calcification in the RCA distribution is redemonstrated. Calcific at the level of mitral valve again seen. LIVER/GB: Liver remains low dense suggesting diffuse fatty infiltration PANCREAS: Moderate fat replaced atrophy. SPLEEN: No significant abnormality is seen. ADRENALS: No significant abnormality is seen. KIDNEYS: Cortical thinning both kidneys is redemonstrated. Symmetric respiratory uptake with delayed excretion on current study. No hydronephrosis is noted bilaterally. Small parapelvic cyst centrally l eft kidney are redemonstrated. BOWEL: No suspicious small or large bowel dilatation. Occasional distal colonic diverticula. No CT e vidence for acute diverticulitis. UTERUS/ADNEXA: Uterus is surgically absent or markedly atrophic. LYMPH NODES: No greater than 1cm abdominal or pelvic lymph nodes are appreciated. OSSEOUS STRUCTURES: Extensive surgical change to the back L2-S1 levels redemonstrated. Loss of normal lumbar lordosis. Metallic hardware from left hip arthroplasty causes streak artifact limiting evalua tion of pelvic structures. Moderate to severe narrowing and spurring of the right hip joint. OTHER: There is atherosclerotic change of the aorta extending into branch vessels. Ectatic course is noted. No greater than 3 cm aneurysmal changes seen IMPRESSION: No significant new or acute finding is seen to account for patient's clinical symptoms.
[2018-11-14 08:53] VITALS: BP 110/73; PULSE 65; RESP 16
== END 2018-11-14 08:48 | disposition home or self-care (01) ==
LOC: EC 05:43
DX: M54.5 Low back pain (principal); R10.819 Abdominal tenderness, unspecified site; G89.29 Other chronic pain; E11.9 Type 2 diabetes mellitus without complications; I10 Essential (primary) hypertension; L98.9 Disorder of the skin and subcutaneous tissue, unspecified; H53.2 Diplopia; E03.9 Hypothyroidism, unspecified; M06.9 Rheumatoid arthritis, unspecified; J30.1 Allergic rhinitis due to pollen; M19.90 Unspecified osteoarthritis, unspecified site; Z79.84 Long term (current) use of oral hypoglycemic drugs; Z79.4 Long term (current) use of insulin; Z79.52 Long term (current) use of systemic steroids; Z79.890 Hormone replacement therapy; Z91.048 Other nonmedicinal substance allergy status; Z88.1 Allergy status to other antibiotic agents; Z88.2 Allergy status to sulfonamides; Z85.828 Personal history of other malignant neoplasm of skin; Z87.891 Personal history of nicotine dependence; Z86.14 Personal history of Methicillin resistant Staphylococcus aureus infection
CPT/HCPCS: 99284; 96374; 96375; 96361 ×2; 36415; 80053; 83690; 85025; 81003; 74177; J2270; J1885; Q9967

== ENCOUNTER 2018-11-14 21:49 | Inpatient (IN) | payer MEDICARE ==
[2018-11-14] MEDS ORDERED: KETOROLAC 30 MG/ML 1 ML VIAL IVP STA (22:19)
[2018-11-14 22:45] LABS: Anisocytosis Slight; Basophils # (A) 0.1 k/uL (0-0.2); Basophils % (A) 1 %; Eosinophils % (A) 1 %; HCT 40.2 % (34.0-46.0); HGB 12.6 gm/dL (11.4-16.0); Lymphocytes % (A) 17 %; MCH 27.2 pg (25.0-35.0); MCHC 31.3 g/dL (31.0-37.0); Mean Platelet Volume 7.1; Monocytes # (A) 0.3 k/uL (0-1.0); Monocytes % (A) 5 %; Neutrophils # (A) 4.6 k/uL (1.3-7.7); Neutrophils % (A) 76 %; Platelet Count 218 k/uL (150-450); RBC 4.62 m/uL (3.80-5.40); WBC 6.1 k/uL (3.8-10.6)
[2018-11-14 23:07] LABS: ALT 23 U/L (9-52); AST 21 U/L (14-36); African American GFR (CKD) >90 (>60 ml/min/1.73 sqM); Alkaline Phosphatase 55 U/L (38-126); Anion Gap 12 mmol/L; Blood Urea Nitrogen 19 mg/dL (7-17); Calcium 9.2 mg/dL (8.4-10.2); Carbon Dioxide 28 mmol/L (22-30); Chloride 100 mmol/L (98-107); Creatine Kinase 36 U/L (30-135); Glucose 333 mg/dL (74-99); Magnesium 1.7 mg/dL (1.6-2.3); Potassium 4.1 mmol/L (3.5-5.1); Sodium 140 mmol/L (137-145); Total Bilirubin 0.4 mg/dL (0.2-1.3); Total Protein 7.1 g/dL (6.3-8.2)
--- NOTE | 2018-11-14 23:17 | ED ---
Back Pain HPI - General Chief Complaint: Back Pain/Injury Stated Complaint: Back Pain Time Seen by Provider: 11/14/18 22:02 Source: patient, RN notes reviewed Limitations: no limitations - History of Present Illness Initial Comments: This is a 78-year-old female with a history of multiple medical problems was seen here earlier today for right-sided abdominal and chest pain who is back today complaining of 9/10 severe pain she states is right-sided sharp and waxing and waning she's had for 3 nights and has not slept for 3 days she states she was here earlier and they get some relief with the medication was rendered but after the medication wore off she had pain this as severe as when it started. She denies any shortness of breath cough fevers chills nausea vomiting sweats no phlegm production. No known trauma. She does have a history of herpes zoster is in the past but she states this feels different and she has no rash. No other complaints or modifying factors at this time MD Complaint: back pain - Related Data Home Medications Medication Instructions Recorded Confirmed Gabapentin [Neurontin] 1,200 mg PO TID 02/27/14 11/14/18 Lansoprazole [Prevacid] 15 mg PO HS 02/27/14 11/14/18 hydrOXYzine HCL [Atarax] 50 mg PO HS 04/12/16 11/14/18 Folic Acid 1 mg PO DAILY 08/13/16 11/14/18 Latanoprost [Xalatan 0.005%] 1 drop BOTH EYES HS 08/11/17 11/14/18 Levothyroxine Sodium [Synthroid] 224 mcg PO DAILY 08/11/17 11/14/18 Pilocarpine HCl [Salagen] 7.5 mg PO TID 08/11/17 11/14/18 metFORMIN HCL [Glucophage] 1,000 mg PO AC-BID@1200,1700 08/11/17 11/14/18 Adalimumab [Humira Pediatric] 40 mg SQ WE 09/25/18 11/14/18 Furosemide [Lasix] 40 mg PO DAILY 09/25/18 11/14/18 HYDROcodone/APAP 10-325MG [[place] 1 tab PO Q6HR PRN 09/25/18 11/14/18 10-325] Insulin Degludec [Tresiba] 46 units SQ DAILY 09/25/18 11/14/18 Insulin Lispro [humaLOG Kwikpen] See Protocol SQ AC-TID 09/25/18 11/14/18 Metoprolol Tartrate [Lopressor] 25 mg PO BID 09/25/18 11/14/18 Tolterodine Tartrate [Detrol LA] 4 mg PO DAILY 09/25/18 11/14/18 Amoxicillin 2,000 mg PO ONCE PRN 11/14/18 11/14/18 Gabapentin 1,600 mg PO HS 11/14/18 11/14/18 Leflunomide 20 mg PO DAILY 11/14/18 11/14/18 Methocarbamol [Robaxin] 750 mg PO TID 11/14/18 11/14/18 methylPREDNISolone Dose Pack See Taper PO DIRECTED 11/14/18 11/14/18 [Medrol Dose Pack] predniSONE 4 mg PO DAILY 11/14/18 11/14/18 Previous Rx's Medication Instructions Recorded Nitroglycerin Sl Tabs [Nitrostat] 0.4 mg SUBLINGUAL Q5M PRN #30 tab 08/13/17 Verapamil Sr [Isoptin Sr] 240 mg PO DAILY #30 tablet.er 08/13/17 Apixaban [Eliquis] 5 mg PO BID #60 tab 08/30/17 Allergies Allergy/AdvReac Type Severity Reaction Status Date / Time adhesive Allergy Rash/Hives Verified 11/14/18 22:16 cephalexin [From Keflex] Allergy Rash/Hives Verified 11/14/18 22:16 grass pollen Allergy Unknown Verified 11/14/18 22:16 mold Allergy Unknown Verified 11/14/18 22:16 Sulfa (Sulfonamide Allergy Rash/Hives Verified 11/14/18 22:16 Antibiotics) newspaper ink Allergy Unknown Uncoded 11/14/18 21:55 Review of Systems ROS Statement: Those systems with pertinent positive or pertinent negative responses have been documented in the HPI. ROS Other: All systems not noted in ROS Statement are negative. Past Medical History Past Medical History: Atrial Fibrillation, Cancer, Diabetes Mellitus, Hyperlipidemia, Hypertension, Musculoskeletal Disorder, Neurologic Disorder, Osteoarthritis (OA), Renal Disease, Rheumatoid Arthritis (RA), Skin Disorder, Thyroid Disorder Additional Past Medical History / Comment(s): IDDM type II, spinal stenosis, Reynauds, neurologic sjogrens BALANCE ISSUES, SINUS INFECTIONS, HAS HAD DOUBLE VISION ALL HER LIFE-when looks certain directions, hypothyroidism, acute kidney failure psoriasis, UTI s, melanoma skin cancer lt arm, bilateral elbow bursitis with MRSA and I&Ds/antibiotics.pt stated never had gout. History of Any Multi-Drug Resistant Organisms: MRSA Date of last positivie culture/infection: 02/27/14 MDRO Source:: Sputum Past Surgical History: Back Surgery, Breast Surgery, Heart Catheterization, Yun nt Replacement, Orthopedic Surgery Additional Past Surgical History / Comment(s): Bilateral cataracts with lens implants, arthroscopies to lt wrist, gualberto knees, gualberto ankles, gualberto hips, lt hip replacment and redone, L/R shoulder sxs, rt breast bx-benign, egd/colonoscopy, skin cancer removal L arm. Past Anesthesia/Blood Transfusion Reactions: No Reported Reaction Past Psychological History: No Psychological Hx Reported Smoking Status: Former smoker Past Alcohol Use History: None Reported Past Drug Use History: None Reported - Past Family History Mother Family Medical History: CVA/TIA Additional Family Medical History / Comment(s): RUPTURED BOWEL Father Family Medical History: Cancer, Pneumonia Additional Family Medical History / Comment(s): ASPIRATIVE PNA Sister(s) Additional Family Medical History / Comment(s): at age 34 with lupus General Exam - General Exam Comments Initial Comments: This is a well-developed well-nourished awake alert oriented 3 female Limitations: no limitations General appearance: alert, in no apparent distress Head exam: Present: atraumatic, normocephalic, normal inspection Eye exam: Present: normal appearance, PERRL, EOMI. Absent: scleral icterus, conjunctival injection, periorbital swelling ENT exam: Present: mucous membranes dry Neck exam: Present: normal inspection. Absent: tenderness, meningismus, lymphadenopathy Respiratory exam: Present: normal lung sounds bilaterally, other (No rash noted). Absent: respiratory distress, wheezes, rales, rhonchi, stridor, chest wall tenderness Cardiovascular Exam: Present: normal rhythm, tachycardia, normal heart sounds. Absent: systolic murmur, diastolic murmur, rubs, gallop, clicks GI/Abdominal exam: Present: soft, normal bowel sounds. Absent: distended, tenderness, guarding, rebound, rigid, bruit, pulsatile mass (No rash noted) Extremities exam: Present: normal inspection, full ROM, normal capillary refill. Absent: tenderness, pedal edema, joint swelling, calf tenderness Back exam: Present: normal inspection Neurological exam: Present: alert, oriented X3, CN II-XII intact Psychiatric exam: Present: normal affect, normal mood Skin exam: Present: warm, dry, intact, normal color. Absent: rash Course Vital Signs 11/14/18 11/14/18 21:51 23:47 Temperature 97.7 F 98 F Pulse Rate 137 H 83 Respiratory 20 18 Rate Blood Pressure 175/109 144/116 O2 Sat by Pulse 95 96 Oximetry - Reevaluation(s) Reevaluation #1: 11/14/18 23:50 I did discuss the findings with the patient and her . Patient has continued pain patient will be admitted for pain control tonight. The case is discussed with Dr. Hart Medical Decision Making - Lab Data Result diagrams: 11/14/18 22:32 11/14/18 22:32 Lab Results 11/14/18 11/14/18 11/14/18 Range/Units 22:32 22:32 22:32 WBC 6.1 (3.8-10.6) k/uL RBC 4.62 (3.80-5.40) m/uL Hgb 12.6 (11.4-16.0) gm/dL Hct 40.2 (34.0-46.0) % MCV 87.0 (80.0-100.0) fL MCH 27.2 (25.0-35.0) pg MCHC 31.3 (31.0-37.0) g/dL RDW 16.0 H (11.5-15.5) % Plt Count 218 (150-450) k/uL Neutrophils % 76 % Lymphocytes % 17 % Monocytes % 5 % Eosinophils % 1 % Basophils % 1 % Neutrophils # 4.6 (1.3-7.7) k/uL Lymphocytes # 1.0 (1.0-4.8) k/uL Monocytes # 0.3 (0-1.0) k/uL Eosinophils # 0.0 (0-0.7) k/uL Basophils # 0.1 (0-0.2) k/uL Anisocytosis Slight Sodium 140 (137-145) mmol/L Potassium 4.1 (3.5-5.1) mmol/L Chloride 100 (98-107) mmol/L Carbon Dioxide 28 (22-30) mmol/L Anion Gap 12 mmol/L BUN 19 H (7-17) mg/dL Creatinine 0.61 (0.52-1.04) mg/dL Est GFR (CKD-EPI)AfAm >90 (>60 ml/min/1.73 sqM) Est GFR (CKD-EPI)NonAf 88 (>60 ml/min/1.73 sqM) Glucose 333 H (74-99) mg/dL Calcium 9.2 (8.4-10.2) mg/dL Magnesium 1.7 (1.6-2.3) mg/dL Total Bilirubin 0.4 (0.2-1.3) mg/dL AST 21 (14-36) U/L ALT 23 (9-52) U/L Alkaline Phosphatase 55 (38-126) U/L Creatine Kinase 36 (30-135) U/L Troponin I 0.019 (0.000-0.034) ng/mL C-Reactive Protein 13.0 H (<10.0) mg/L Total Protein 7.1 (6.3-8.2) g/dL Albumin 4.0 (3.5-5.0) g/dL Lipase 25 (23-300) U/L Acetone, Qual (Negative) 11/14/18 Range/Units 22:32 WBC (3.8-10.6) k/uL RBC (3.80-5.40) m/uL Hgb (11.4-16.0) gm/dL Hct (34.0-46.0) % MCV (80.0-100.0) fL MCH (25.0-35.0) pg MCHC (31.0-37.0) g/dL RDW (11.5-15.5) % Plt Count (150-450) k/uL Neutrophils % % Lymphocytes % % Monocytes % % Eosinophils % % Basophils % % Neutrophils # (1.3-7.7) k/uL Lymphocytes # (1.0-4.8) k/uL Monocytes # (0-1.0) k/uL Eosinophils # (0-0.7) k/uL Basophils # (0-0.2) k/uL Anisocytosis Sodium (137-145) mmol/L Potassium (3.5-5.1) mmol/L Chloride (98-107) mmol/L Carbon Dioxide (22-30) mmol/L Anion Gap mmol/L BUN (7-17) mg/dL Creatinine (0.52-1.04) mg/dL Est GFR (CKD-EPI)AfAm (>60 ml/min/1.73 sqM) Est GFR (CKD-EPI)NonAf (>60 ml/min/1.73 sqM) Glucose (74-99) mg/dL Calcium (8.4-10.2) mg/dL Magnesium (1.6-2.3) mg/dL Total Bilirubin (0.2-1.3) mg/dL AST (14-36) U/L ALT (9-52) U/L Alkaline Phosphatase (38-126) U/L Creatine Kinase (30-135) U/L Troponin I (0.000-0.034) ng/mL C-Reactive Protein (<10.0) mg/L Total Protein (6.3-8.2) g/dL Albumin (3.5-5.0) g/dL Lipase (23-300) U/L Acetone, Qual Negative (Negative) Disposition Clinical Impression: Intractable abdominal pain, Right-sided chest wall pain Disposition: ADMITTED IP TO THIS [facility] Condition: Fair Referrals: Nicholas Hart MD [Primary Care Provider] - 1-2 days
[2018-11-14] MEDS ORDERED: SODIUM CHLORIDE 0.9% 1,000 ML IV STA (23:18)
[2018-11-14] MEDS ORDERED: SODIUM CHLORIDE 0.9% 500 ML 500 ML IV STA (23:18)
[2018-11-14] MEDS ORDERED: HYDROmorphone 1 MG/ML 1 ML SYRINGE IVP STA (23:31)
[2018-11-14] MEDS ORDERED: MAGNESIUM SULFATE-D5W PMX 1 GM in DEXTROSE/WATER 1 100ML.BAG IVPB ONE (23:31)
[2018-11-14 23:49] VITALS: RESP 18
[2018-11-14] MEDS ORDERED: ONDANSETRON 4 MG/2 ML VIAL IVP PRN (23:54)
[2018-11-14] MEDS ORDERED: NALOXONE 0.4 MG/ML 1 ML VIAL IV PRN (23:54)
--- NOTE | 2018-11-14 23:54 | ED ---
Medical Decision Making - Lab Data Result diagrams: 11/14/18 22:32 11/14/18 22:32 Lab Results 11/14/18 11/14/18 11/14/18 Range/Units 22:32 22:32 22:32 WBC 6.1 (3.8-10.6) k/uL RBC 4.62 (3.80-5.40) m/uL Hgb 12.6 (11.4-16.0) gm/dL Hct 40.2 (34.0-46.0) % MCV 87.0 (80.0-100.0) fL MCH 27.2 (25.0-35.0) pg MCHC 31.3 (31.0-37.0) g/dL RDW 16.0 H (11.5-15.5) % Plt Count 218 (150-450) k/uL Neutrophils % 76 % Lymphocytes % 17 % Monocytes % 5 % Eosinophils % 1 % Basophils % 1 % Neutrophils # 4.6 (1.3-7.7) k/uL Lymphocytes # 1.0 (1.0-4.8) k/uL Monocytes # 0.3 (0-1.0) k/uL Eosinophils # 0.0 (0-0.7) k/uL Basophils # 0.1 (0-0.2) k/uL Anisocytosis Slight Sodium 140 (137-145) mmol/L Potassium 4.1 (3.5-5.1) mmol/L Chloride 100 (98-107) mmol/L Carbon Dioxide 28 (22-30) mmol/L Anion Gap 12 mmol/L BUN 19 H (7-17) mg/dL Creatinine 0.61 (0.52-1.04) mg/dL Est GFR (CKD-EPI)AfAm >90 (>60 ml/min/1.73 sqM) Est GFR (CKD-EPI)NonAf 88 (>60 ml/min/1.73 sqM) Glucose 333 H (74-99) mg/dL Calcium 9.2 (8.4-10.2) mg/dL Magnesium 1.7 (1.6-2.3) mg/dL Total Bilirubin 0.4 (0.2-1.3) mg/dL AST 21 (14-36) U/L ALT 23 (9-52) U/L Alkaline Phosphatase 55 (38-126) U/L Creatine Kinase 36 (30-135) U/L Troponin I 0.019 (0.000-0.034) ng/mL C-Reactive Protein 13.0 H (<10.0) mg/L Total Protein 7.1 (6.3-8.2) g/dL Albumin 4.0 (3.5-5.0) g/dL Lipase 25 (23-300) U/L Acetone, Qual (Negative) 11/14/18 Range/Units 22:32 WBC (3.8-10.6) k/uL RBC (3.80-5.40) m/uL Hgb (11.4-16.0) gm/dL Hct (34.0-46.0) % MCV (80.0-100.0) fL MCH (25.0-35.0) pg MCHC (31.0-37.0) g/dL RDW (11.5-15.5) % Plt Count (150-450) k/uL Neutrophils % % Lymphocytes % % Monocytes % % Eosinophils % % Basophils % % Neutrophils # (1.3-7.7) k/uL Lymphocytes # (1.0-4.8) k/uL Monocytes # (0-1.0) k/uL Eosinophils # (0-0.7) k/uL Basophils # (0-0.2) k/uL Anisocytosis Sodium (137-145) mmol/L Potassium (3.5-5.1) mmol/L Chloride (98-107) mmol/L Carbon Dioxide (22-30) mmol/L Anion Gap mmol/L BUN (7-17) mg/dL Creatinine (0.52-1.04) mg/dL Est GFR (CKD-EPI)AfAm (>60 ml/min/1.73 sqM) Est GFR (CKD-EPI)NonAf (>60 ml/min/1.73 sqM) Glucose (74-99) mg/dL Calcium (8.4-10.2) mg/dL Magnesium (1.6-2.3) mg/dL Total Bilirubin (0.2-1.3) mg/dL AST (14-36) U/L ALT (9-52) U/L Alkaline Phosphatase (38-126) U/L Creatine Kinase (30-135) U/L Troponin I (0.000-0.034) ng/mL C-Reactive Protein (<10.0) mg/L Total Protein (6.3-8.2) g/dL Albumin (3.5-5.0) g/dL Lipase (23-300) U/L Acetone, Qual Negative (Negative) Disposition Clinical Impression: Intractable abdominal pain, Right-sided chest wall pain, Dehydration Disposition: ADMITTED IP TO THIS [facility] Condition: Fair Referrals: Nicholas Hart MD [Primary Care Provider] - 1-2 days
[2018-11-14] MEDS ORDERED: NITROGLYCERIN SL TABS 0.4 MG TAB SUBLINGUAL PRN (23:57)
[2018-11-15] MEDS ORDERED: METOPROLOL TARTRATE 25 MG TAB PO STA (00:45)
[2018-11-15] MEDS: HYDROcodone/APAP 10-325MG 1 EACH TAB PO PRN ×2 (04:47→16:11)
[2018-11-15] MEDS: LEVOTHYROXINE 112 MCG TAB PO SCH (06:04)
[2018-11-15] MEDS: HYDROmorphone 1 MG/ML 1 ML SYRINGE IVP PRN ×2 (06:04→19:38)
[2018-11-15 06:33] LABS: Glucose,Whole Blood 292 mg/dL (75-99)
[2018-11-15] MEDS: INSULIN ASPART (NovoLOG) 100 UNIT/ML VIAL SQ SCH ×4 (08:36→19:37)
[2018-11-15] MEDS: [UNRECOGNIZED DRUG - REMARK] PO SCH ×3 (08:36→17:17)
[2018-11-15] MEDS: INSULIN DETEMIR (LEVEMIR) 100 UNIT/ML SYR SQ SCH (08:36)
[2018-11-15] MEDS: METOPROLOL TARTRATE 25 MG TAB PO SCH ×2 (08:37→19:39)
[2018-11-15] MEDS: VERAPAMIL SR 240 MG TABLET.ER PO SCH (08:37)
[2018-11-15] MEDS: OXYBUTYNIN XL 5 MG TAB.ER.24 PO SCH (08:37)
[2018-11-15] MEDS: METHOCARBAMOL 750 MG TAB PO SCH ×3 (08:37→19:38)
[2018-11-15] MEDS ORDERED: tiZANidine 4 MG TAB PO PRN (08:37)
[2018-11-15] MEDS: FOLIC ACID 1 MG TAB PO SCH (08:38)
[2018-11-15] MEDS: PILOCARPINE 5 MG TAB PO SCH ×3 (08:38→19:38)
[2018-11-15] MEDS: FAMOTIDINE 20 MG TAB PO SCH ×2 (08:38→19:38)
[2018-11-15] MEDS: APIXABAN 5 MG TAB PO SCH ×2 (08:39→19:39)
[2018-11-15] MEDS: FUROSEMIDE 40 MG TAB PO SCH (08:39)
--- NOTE | 2018-11-15 08:41 | P.HPIM ---
History of Present Illness H&P Date: 11/15/18 Chief Complaint: Right-sided chest wall pain. 78-year-old white female with history of gout DJD and hypertension who states yesterday she is having intractable right-sided chest wall pain with right lower quadrant abdominal pain. No GI element no cough no pleurisy stated. The patient states no fever or chills. The pain waxes and wanes and is not aggravated by movement or made better with positional change. Workup in the ER did not show significant element of pathology as far as computed tomography scan. Cardiology has cleared the patient and the patient still continues to have atypical type chest wall pain. We will try Lidoderm and if no better, consider anesthesia referral. Review of Systems Constitutional: Denies chills, Denies fever Eyes: denies blurred vision, denies pain Ears, nose, mouth and throat: Denies headache, Denies sore throat Cardiovascular: Reports chest pain Respiratory: Denies cough Gastrointestinal: Denies abdominal pain, Denies diarrhea, Denies nausea, Denies vomiting Genitourinary: Denies dysuria, Denies hematuria Musculoskeletal: Denies myalgias Past Medical History Past Medical History: Atrial Fibrillation, Cancer, Diabetes Mellitus, Hyperlipidemia, Hypertension, Musculoskeletal Disorder, Neurologic Disorder, Osteoarthritis (OA), Renal Disease, Rheumatoid Arthritis (RA), Skin Disorder, Thyroid Disorder Additional Past Medical History / Comment(s): IDDM type II, spinal stenosis, Reynauds, neurologic sjogrens BALANCE ISSUES, SINUS INFECTIONS, HAS HAD DOUBLE VISION ALL HER LIFE-when looks certain directions, hypothyroidism, acute kidney failure psoriasis, UTI s, melanoma skin cancer lt arm, bilateral elbow bursitis with MRSA and I&Ds/antibiotics.pt stated never had gout. History of Any Multi-Drug Resistant Organisms: MRSA Date of last positivie culture/infection: 02/27/14 MDRO Source:: Sputum Past Surgical History: Back Surgery, Breast Surgery, Heart Catheterization, Joint Replacement, Orthopedic Surgery Additional Past Surgical History / Comment(s): Bilateral cataracts with lens implants, arthroscopies to lt wrist, gualberto knees, gualberto ankles, gualberto hips, lt hip replacment and redone, L/R shoulder sxs, rt breast bx-benign, egd/colonoscopy, skin cancer removal L arm. Past Anesthesia/Blood Transfusion Reactions: No Reported Reaction Smoking Status: Former smoker - Past Family History Mother Family Medical History: CVA/TIA Additional Family Medical History / Comment(s): RUPTURED BOWEL Father Family Medical History: Cancer, Pneumonia Additional Family Medical History / Comment(s): ASPIRATIVE PNA Sister(s) Additional Family Medical History / Comment(s): at age 34 with lupus Medications and Allergies Home Medications Medication Instructions Recorded Confirmed Type Gabapentin [Neurontin] 1,200 mg PO TID 02/27/14 11/14/18 History Lansoprazole [Prevacid] 15 mg PO HS 02/27/14 11/14/18 History hydrOXYzine HCL [Atarax] 50 mg PO HS 04/12/16 11/14/18 History Folic Acid 1 mg PO DAILY 08/13/16 11/14/18 History Latanoprost [Xalatan 0.005%] 1 drop BOTH EYES HS 08/11/17 11/14/18 History Levothyroxine Sodium [Synthroid] 224 mcg PO DAILY 08/11/17 11/14/18 History Pilocarpine HCl [Salagen] 7.5 mg PO TID 08/11/17 11/14/18 History metFORMIN HCL [Glucophage] 1,000 mg PO AC-BID@1200,1700 08/11/17 11/14/18 History Nitroglycerin Sl Tabs [Nitrostat] 0.4 mg SUBLINGUAL Q5M PRN #30 tab 08/13/17 11/14/18 Rx Verapamil Sr [Isoptin Sr] 240 mg PO DAILY #30 tablet.er 08/13/17 11/14/18 Rx Apixaban [Eliquis] 5 mg PO BID #60 tab 08/30/17 11/14/18 Rx Adalimumab [Humira Pediatric] 40 mg SQ WE 09/25/18 11/14/18 History Furosemide [Lasix] 40 mg PO DAILY 09/25/18 11/14/18 History HYDROcodone/APAP 10-325MG [[place] 1 tab PO Q6HR PRN 09/25/18 11/14/18 History 10-325] Insulin Degludec [Tresiba] 75 units SQ DAILY 09/25/18 11/15/18 History Insulin Lispro [humaLOG Kwikpen] See Protocol SQ AC-TID 09/25/18 11/14/18 History Metoprolol Tartrate [Lopressor] 25 mg PO BID 09/25/18 11/14/18 History Tolterodine Tartrate [Detrol LA] 4 mg PO DAILY 09/25/18 11/14/18 History Gabapentin 1,600 mg PO HS 11/14/18 11/14/18 History Leflunomide 20 mg PO DAILY 11/14/18 11/14/18 History Methocarbamol [Robaxin] 750 mg PO TID 11/14/18 11/14/18 History methylPREDNISolone Dose Pack See Taper PO DIRECTED 11/14/18 11/14/18 History [Medrol Dose Pack] predniSONE 4 mg PO DAILY 11/14/18 11/14/18 History Cyclobenzaprine [Flexeril] 10 mg PO BID 11/15/18 11/15/18 History tiZANidine [Zanaflex] 8 mg PO Q8HR PRN 11/15/18 11/15/18 History Allergies Allergy/AdvReac Type Severity Reaction Status Date / Time adhesive Allergy Rash/Hives Verified 11/15/18 01:01 cephalexin [From Keflex] Allergy Rash/Hives Verified 11/15/18 01:01 grass pollen Allergy Unknown Verified 11/15/18 01:01 mold Allergy Unknown Verified 11/15/18 01:01 Sulfa (Sulfonamide Allergy Rash/Hives Verified 11/15/18 01:01 Antibiotics) newspaper ink Allergy Unknown Uncoded 11/15/18 01:01 Physical Exam Vitals: Vital Signs Temp Pulse Pulse Resp BP BP Pulse Ox 11/15/18 06:58 97.8 F 98 18 108/78 95 11/15/18 03:37 18 11/15/18 02:00 18 11/15/18 01:48 97.6 F 137 H 18 147/82 93 L 11/15/18 00:38 150/104 98 11/14/18 23:47 98 F 83 18 144/116 96 11/14/18 21:51 97.7 F 137 H 20 175/109 95 Intake and Output 11/14/18 11/15/18 11/15/18 22:59 06:59 14:59 Other: # Voids 1 Weight 134.263 kg Results CBC & Chem 7: 11/14/18 22:32 11/14/18 22:32 Labs: Abnormal Lab Results - Last 24 Hours (Table) 11/14/18 11/14/18 11/15/18 Range/Units 22:32 22:32 06:31 RDW 16.0 H (11.5-15.5) % BUN 19 H (7-17) mg/dL Glucose 333 H (74-99) mg/dL POC Glucose (mg/dL) 292 H (75-99) mg/dL C-Reactive Protein 13.0 H (<10.0) mg/L Thrombosis Risk Factor Assmnt - Choose All That Apply Each Factor Represents 1 point: Obesity (BMI >25) Each Risk Factor Represents 3 Points: Age 75 years or older Thrombosis Risk Factor Assessment Total Risk Factor Score: 4 Thrombosis Risk Factor Assessment Level: Moderate Risk Assessment and Plan (1) Dehydration Current Visit: Yes Status: Acute Code(s): E86.0 - DEHYDRATION SNOMED Code(s): 12521600 (2) Right-sided chest wall pain Current Visit: Yes Status: Acute Code(s): R07.89 - OTHER CHEST PAIN SNOMED Code(s): 895496169 (3) Chronic atrial fibrillation Current Visit: No Status: Acute Code(s): I48.2 - CHRONIC ATRIAL FIBRILLATION SNOMED Code(s): 409682847 (4) Diabetes Current Visit: No Status: Acute Code(s): E11.9 - TYPE 2 DIABETES MELLITUS WITHOUT COMPLICATIONS SNOMED Code(s): 85457804 Plan: Reconcile medications. Lidoderm patch. Again, consider anesthesia consult if no improvement. Anticipate discharge in the next 24 hours. We will attempt pain control at this time. We'll continue to follow.
[2018-11-15] MEDS: predniSONE 1 MG TAB PO SCH (08:48)
[2018-11-15] MEDS: LIDOCAINE 5% PATCH TOPICAL SCH (08:48)
[2018-11-15] MEDS ORDERED: GABAPENTIN 400 MG CAP PO SCH ×2 (09:00→21:00)
[2018-11-15] MEDS ORDERED: INSULIN DETEMIR (LEVEMIR) 100 UNIT/ML SYR SQ SCH (09:00)
[2018-11-15] MEDS: LEFLUNOMIDE 20 MG TAB PO SCH (09:16)
--- NOTE | 2018-11-15 09:44 | P.CRDCN ---
History of Present Illness History of present illness: This is a pleasant 78-year-old female past medical history significant for mild nonobstructive coronary artery disease, paroxysmal atrial fibrillation despite cardioversion on long-term anticoagulation, hypertension, dyslipidemia, diabetes mellitus, rheumatoid arthritis, chronic pain. She follows in the office with Dr. George. We have been asked to see her in consultation secondary to chest pain. She presented to the hospital initially yesterday morning with symptoms of right upper and lower quadrant abdominal discomfort she underwent a CT of her abdomen and pelvis that was unremarkable and was discharged home. She came back last evening with ongoing abdominal discomfort. She states she has a pain in the right lower quadrant that radiates up to the right upper quadrant. The pain has been constant for 4 days however has worsening episodes of intensity. She denies associated nausea, vomiting or constipation. She denies chest discomfort, has chronic dyspnea with no worsening recently, denies palpitations or diaphoresis. She underwent successful cardioversion in September 2017. The patient states she cannot feel palpitations or telemetry when she is in atrial fibrillation however when she was in the office in September undergoing an echocardiogram it was noted that she was in A. fib at that time. EKG obtained on arrival reveals atrial fibrillation with nonspecific ST abnormalities with a heart rate of 118. Laboratory data reviewed, WBC 6.1, hemoglobin to 18, sodium 140, potassium 4.1, creatinine 0.61, magnesium 1.7, cardiac enzymes negative 2, C-reactive protein 13. Current daily cardiac medications include Eliquis 5 mg twice a day, Lasix 40 mg daily, Lopressor 25 mg twice a day. Most recent echocardiogram obtained in the office September 2018 reveals preserved LV systolic function with ejection fraction 55%, mild tricuspid regurgitation and moderate left ventricular hypertrophy. At that time she was noted to be in atrial fibrillation. At the time of my exam: CONSTITUTIONAL: Denies fever. Denies chills. EYES: Denies blurred vision. Denies vision changes. Denies eye pain. EARS, NOSE, MOUTH & THROAT: Denies headache. Denies sore throat. Denies ear pain. CARDIOVASCULAR: Denies chest pain. Denies shortness of breath. Denies orthopnea. Denies PND. Denies palpitations. RESPIRATORY: Denies cough. GASTROINTESTINAL: Complains of abdominal pain. Denies diarrhea. Denies constipation. Denies nausea. Denies vomiting. MUSCULOSKELETAL: Denies myalgias. INTEGUMENTARY: Denies pruitis. Denies rash. NEUROLOGIC: Denies numbness. Denies tingling. Denies weakness. PSYCHIATRIC: Denies anxiety. Denies depression. ENDOCRINE: Denies fatigue. Denies weight change. Denies polydipsia. Denies polyurina. GENITOURINARY: Denies burning, hematuria or urgency with micturation. HEMATOLOGIC: Denies history of anemia. Denies bleeding. Blood pressure 108/78 heart rate 98 afebrile maintaining oxygen saturation on room air GENERAL: This is a 78-year-old occasion female in no apparent distress at the time of my examination. Obese. HEENT: Head is atraumatic, normocephalic. Pupils are equal, round. Sclerae anicteric. Conjunctivae are clear. Mucous membranes of the mouth are moist. Neck is supple. There is no jugular venous distention. No carotid bruit is heard. LUNGS: Clear to auscultation no wheezes, rales or rhonchi. No chest wall tenderness is noted on palpation or with deep breathing. HEART: Irregular rate and rhythm with systolic ejection murmur at the left sternal border, no rubs or gallops. S1 and S2 heard. ABDOMEN: Soft, nontender. Bowel sounds are heard. No organomegaly noted. EXTREMITIES: No evidence of peripheral edema and no calf tenderness noted. VASCULAR: Radial and dorsalis pedis pulses palpated, no evidence of clubbing. NEUROLOGIC: Patient is awake, alert and oriented x3. ASSESSMENT Paroxysmal atrial fibrillation with relatively controlled ventricular rates Abdominal pain of unclear etiology, non-cardiac Hypertension Dyslipidemia Diabetes mellitus Rheumatoid arthritis Obesity, BMI 37 PLAN Pain is non-cardiac. A-fib is noted with relatively controlled ventricular rates. Continue current medical regimen. Can given an additional dose of lopressor as needed for elevated heart rates if blood pressure tolerates. Ongoing medical management. No further cardiac work-up at this time. Plan has been discussed with the patient in detail. Follow up with Dr. George upon discharge. Thank you kindly for this consultation. Nurse Practitioner note has been reviewed, I agree with a documented findings and plan of care. Patient was seen and examined. Past Medical History Past Medical History: Atrial Fibrillation, Cancer, Diabetes Mellitus, Hyperlipidemia, Hypertension, Musculoskeletal Disorder, Neurologic Disorder, Osteoarthritis (OA), Renal Disease, Rheumatoid Arthritis (RA), Skin Disorder, Thyroid Disorder Additional Past Medical History / Comment(s): IDDM type II, spinal stenosis, Reynauds, neurologic sjogrens BALANCE ISSUES, SINUS INFECTIONS, HAS HAD DOUBLE VISION ALL HER LIFE-when looks certain directions, hypothyroidism, acute kidney failure psoriasis, UTI s, melanoma skin cancer lt arm, bilateral elbow bursitis with MRSA and I&Ds/antibiotics.pt stated never had gout. History of Any Multi-Drug Resistant Organisms: MRSA Date of last positivie culture/infection: 02/27/14 MDRO Source:: Sputum Past Surgical History: Back Surgery, Breast Surgery, Heart Catheterization, Joint Replacement, Orthopedic Surgery Additional Past Surgical History / Comment(s): Bilateral cataracts with lens implants, arthroscopies to lt wrist, gualberto knees, gualberto ankles, gualberto hips, lt hip replacment and redone, L/R shoulder sxs, rt breast bx-benign, egd/colonoscopy, skin cancer removal L arm. Past Anesthesia/Blood Transfusion Reactions: No Reported Reaction Smoking Status: Former smoker - Past Family History Mother Family Medical History: CVA/TIA Additional Family Medical History / Comment(s): RUPTURED BOWEL Father Family Medical History: Cancer, Pneumonia Additional Family Medical History / Comment(s): ASPIRATIVE PNA Sister(s) Additional Family Medical History / Comment(s): at age 34 with lupus Medications and Allergies Home Medications Medication Instructions Recorded Confirmed Type Gabapentin [Neurontin] 1,200 mg PO TID 02/27/14 11/14/18 History Lansoprazole [Prevacid] 15 mg PO HS 02/27/14 11/14/18 History hydrOXYzine HCL [Atarax] 50 mg PO HS 04/12/16 11/14/18 History Folic Acid 1 mg PO DAILY 08/13/16 11/14/18 History Latanoprost [Xalatan 0.005%] 1 drop BOTH EYES HS 08/11/17 11/14/18 History Levothyroxine Sodium [Synthroid] 224 mcg PO DAILY 08/11/17 11/14/18 History Pilocarpine HCl [Salagen] 7.5 mg PO TID 08/11/17 11/14/18 History metFORMIN HCL [Glucophage] 1,000 mg PO AC-BID@1200,1700 08/11/17 11/14/18 History Nitroglycerin Sl Tabs [Nitrostat] 0.4 mg SUBLINGUAL Q5M PRN #30 tab 08/13/17 11/14/18 Rx Verapamil Sr [Isoptin Sr] 240 mg PO DAILY #30 tablet.er 08/13/17 11/14/18 Rx Apixaban [Eliquis] 5 mg PO BID #60 tab 08/30/17 11/14/18 Rx Adalimumab [Humira Pediatric] 40 mg SQ WE 09/25/18 11/14/18 History Furosemide [Lasix] 40 mg PO DAILY 09/25/18 11/14/18 History HYDROcodone/APAP 10-325MG [[place] 1 tab PO Q6HR PRN 09/25/18 11/14/18 History 10-325] Insulin Degludec [Tresiba] 75 units SQ DAILY 09/25/18 11/15/18 History Insulin Lispro [humaLOG Kwikpen] See Protocol SQ AC-TID 09/25/18 11/14/18 History Metoprolol Tartrate [Lopressor] 25 mg PO BID 09/25/18 11/14/18 History Tolterodine Tartrate [Detrol LA] 4 mg PO DAILY 09/25/18 11/14/18 History Gabapentin 1,600 mg PO HS 11/14/18 11/14/18 History Leflunomide 20 mg PO DAILY 11/14/18 11/14/18 History Methocarbamol [Robaxin] 750 mg PO TID 11/14/18 11/14/18 History methylPREDNISolone Dose Pack See Taper PO DIRECTED 11/14/18 11/14/18 History [Medrol Dose Pack] predniSONE 4 mg PO DAILY 11/14/18 11/14/18 History Cyclobenzaprine [Flexeril] 10 mg PO BID 11/15/18 11/15/18 History tiZANidine [Zanaflex] 8 mg PO Q8HR PRN 11/15/18 11/15/18 History Allergies Allergy/AdvReac Type Severity Reaction Status Date / Time adhesive Allergy Rash/Hives Verified 11/15/18 01:01 cephalexin [From Keflex] Allergy Rash/Hives Verified 11/15/18 01:01 grass pollen Allergy Unknown Verified 11/15/18 01:01 mold Allergy Unknown Verified 11/15/18 01:01 Sulfa (Sulfonamide Allergy Rash/Hives Verified 11/15/18 01:01 Antibiotics) newspaper ink Allergy Unknown Uncoded 11/15/18 01:01 Physical Exam Vitals: Vital Signs Temp Pulse Pulse Resp BP BP Pulse Ox 11/15/18 06:58 97.8 F 98 18 108/78 95 11/15/18 03:37 18 11/15/18 02:00 18 11/15/18 01:48 97.6 F 137 H 18 147/82 93 L 11/15/18 00:38 150/104 98 11/14/18 23:47 98 F 83 18 144/116 96 11/14/18 21:51 97.7 F 137 H 20 175/109 95 Intake and Output 11/14/18 11/15/18 11/15/18 22:59 06:59 14:59 Other: # Voids 1 Weight 134.263 kg Results 11/14/18 22:32 11/14/18 22:32 Cardiac Enzymes 11/14/18 11/14/18 11/15/18 Range/Units 22:32 22:32 05:21 AST 21 (14-36) U/L Troponin I 0.019 0.024 (0.000-0.034) ng/mL CBC 11/14/18 Range/Units 22:32 WBC 6.1 (3.8-10.6) k/uL RBC 4.62 (3.80-5.40) m/uL Hgb 12.6 (11.4-16.0) gm/dL Hct 40.2 (34.0-46.0) % Plt Count 218 (150-450) k/uL Comprehensive Metabolic Panel 11/14/18 Range/Units 22:32 Sodium 140 (137-145) mmol/L Potassium 4.1 (3.5-5.1) mmol/L Chloride 100 (98-107) mmol/L Carbon Dioxide 28 (22-30) mmol/L BUN 19 H (7-17) mg/dL Creatinine 0.61 (0.52-1.04) mg/dL Glucose 333 H (74-99) mg/dL Calcium 9.2 (8.4-10.2) mg/dL AST 21 (14-36) U/L ALT 23 (9-52) U/L Alkaline Phosphatase 55 (38-126) U/L Total Protein 7.1 (6.3-8.2) g/dL Albumin 4.0 (3.5-5.0) g/dL Current Medications Generic Name Dose Route Start Last Admin Trade Name Freq PRN Reason Stop Dose Admin Hydrocodone Bitart/Acetaminophen 1 each 11/14/18 23:57 11/15/18 04:47 [place] 10 PO 1 each Q6HR PRN Administration Pain Apixaban 5 mg 11/15/18 09:00 Eliquis PO BID [facility] Famotidine 20 mg 11/15/18 09:00 Pepcid PO BID [facility] Folic Acid 1 mg 11/15/18 09:00 Folic Acid PO DAILY [facility] Furosemide 40 mg 11/15/18 09:00 Lasix PO DAILY [facility] Hydromorphone HCl 1 mg 11/15/18 00:00 11/15/18 06:04 Dilaudid IVP 1 mg Q3HR PRN Administration Severe Pain Hydroxyzine HCl 50 mg 11/15/18 21:00 Atarax PO HS [facility] Sodium Chloride 1,000 mls @ 80 mls/hr 11/14/18 23:18 11/14/18 23:50 Saline 0.9% IV 11/15/18 11:47 75 mls/hr .[id number] STA Administration Insulin Aspart 0 unit 11/15/18 07:30 Novolog SQ ACHS [facility] Protocol Insulin Detemir 75 unit 11/15/18 09:00 Levemir SQ DAILY [facility] Latanoprost 1 drops 11/15/18 21:00 Xalatan 0.005% BOTH EYES HS [facility] Leflunomide 20 mg 11/15/18 09:00 Arava PO DAILY [facility] Levothyroxine Sodium 224 mcg 11/15/18 06:30 11/15/18 06:04 Synthroid PO 224 mcg DAILY@0630 A[facility]H Administration Metformin HCl 1,000 mg 11/15/18 12:00 Glucophage PO AC-BID@1200,1700 [facility] Methocarbamol 750 mg 11/15/18 09:00 Robaxin PO TID [facility] Metoprolol Tartrate 25 mg 11/15/18 09:00 Lopressor PO BID [facility] Naloxone HCl 0.2 mg 11/14/18 23:54 Narcan IV Q2M PRN Opioid Reversal Nitroglycerin 0.4 mg 11/14/18 23:57 Nitrostat SUBLINGUAL Q5M PRN Chest Pain Non Form. Drug 1.5 each 11/15/18 09:00 Gabapentin 1,200mg ( PO Neurontin 800mg Ea.) TID@0900,1300,1700 ASHUTOSH Non Form. Drug 2 each 11/15/18 21:00 Gabapentin 1,600mg ( PO Neurontin 800mg Ea.) HS A[facility] Ondansetron HCl 4 mg 11/14/18 23:54 Zofran IVP Q8HR PRN Nausea And Vomiting Oxybutynin Chloride 10 mg 11/15/18 09:00 Ditropan Xl PO DAILY [facility] Pantoprazole Sodium 40 mg 11/15/18 21:00 Protonix PO HS [facility] Pilocarpine HCl 7.5 mg 11/15/18 09:00 Salagen PO TID [facility] Verapamil HCl 240 mg 11/15/18 09:00 Isoptin Sr PO DAILY [facility] Intake and Output 11/14/18 11/15/18 11/15/18 22:59 06:59 14:59 Other: # Voids 1 Weight 134.263 kg 11/14/18 22:32 11/14/18 22:32
[2018-11-15 11:37] LABS: Glucose,Whole Blood 128 mg/dL (75-99)
[2018-11-15] MEDS: metFORMIN 500 MG TAB PO SCH ×2 (12:06→17:17)
[2018-11-15 16:34] LABS: Glucose,Whole Blood 116 mg/dL (75-99)
[2018-11-15 19:29] LABS: Glucose,Whole Blood 124 mg/dL (75-99)
[2018-11-15] MEDS ORDERED: hydrOXYzine HCL 25 MG TAB PO SCH (21:00)
[2018-11-15] MEDS ORDERED: PANTOPRAZOLE 40 MG TABLET PO SCH (21:00)
[2018-11-15] MEDS ORDERED: [UNRECOGNIZED DRUG - REMARK] PO SCH (21:00)
[2018-11-15] MEDS ORDERED: LATANOPROST 0.005% OPHTH DROPS 2.5 ML BTL BOTH EYES SCH (21:00)
[2018-11-16] MEDS: HYDROmorphone 1 MG/ML 1 ML SYRINGE IVP PRN ×3 (02:27→11:09)
[2018-11-16] MEDS: LEVOTHYROXINE 112 MCG TAB PO SCH (06:07)
[2018-11-16 06:43] LABS: Glucose,Whole Blood 83 mg/dL (75-99)
[2018-11-16] MEDS: INSULIN ASPART (NovoLOG) 100 UNIT/ML VIAL SQ SCH ×3 (07:14→16:37)
[2018-11-16] MEDS: METOPROLOL TARTRATE 25 MG TAB PO SCH (08:21)
[2018-11-16] MEDS: APIXABAN 5 MG TAB PO SCH (08:21)
[2018-11-16] MEDS: HYDROcodone/APAP 10-325MG 1 EACH TAB PO PRN ×2 (08:21→14:52)
[2018-11-16] MEDS: FAMOTIDINE 20 MG TAB PO SCH (08:21)
[2018-11-16] MEDS: LEFLUNOMIDE 20 MG TAB PO SCH (08:21)
[2018-11-16] MEDS: METHOCARBAMOL 750 MG TAB PO SCH ×2 (08:21→16:37)
[2018-11-16] MEDS: predniSONE 1 MG TAB PO SCH (08:22)
[2018-11-16] MEDS: LIDOCAINE 5% PATCH TOPICAL SCH (08:22)
[2018-11-16] MEDS: PILOCARPINE 5 MG TAB PO SCH ×2 (08:22→16:37)
[2018-11-16] MEDS: VERAPAMIL SR 240 MG TABLET.ER PO SCH (08:22)
[2018-11-16] MEDS: OXYBUTYNIN XL 5 MG TAB.ER.24 PO SCH (08:22)
[2018-11-16] MEDS: FUROSEMIDE 40 MG TAB PO SCH (08:23)
[2018-11-16] MEDS: [UNRECOGNIZED DRUG - REMARK] PO SCH ×3 (08:23→14:50)
[2018-11-16] MEDS: FOLIC ACID 1 MG TAB PO SCH (08:23)
[2018-11-16] MEDS: INSULIN DETEMIR (LEVEMIR) 100 UNIT/ML SYR SQ SCH (08:25)
[2018-11-16 11:37] LABS: Glucose,Whole Blood 140 mg/dL (75-99)
[2018-11-16] MEDS: metFORMIN 500 MG TAB PO SCH ×2 (12:11→16:37)
[2018-11-16 15:24] VITALS: BP 127/68; PULSE 77; TEMP 97.5
[2018-11-16] MEDS ORDERED: GABAPENTIN 400 MG CAP PO SCH (16:00)
[2018-11-16 16:27] LABS: Glucose,Whole Blood 219 mg/dL (75-99)
== END 2018-11-16 17:50 | disposition home or self-care (01) | DRG 641 ==
LOC: EC 21:49 → 1SOBS 23:54 → OBSVTOIN 11-16 14:40
PROVIDERS: ADMIT Family Medicine; ATTEND Family Medicine
DX: E86.0 Dehydration (principal); G89.29 Other chronic pain; E11.65 Type 2 diabetes mellitus with hyperglycemia; E66.9 Obesity, unspecified; Z68.37 Body mass index [BMI] 37.0-37.9, adult; E78.5 Hyperlipidemia, unspecified; I10 Essential (primary) hypertension; I25.10 Atherosclerotic heart disease of native coronary artery without angina pectoris; I48.2 Chronic atrial fibrillation; Z79.01 Long term (current) use of anticoagulants; E03.9 Hypothyroidism, unspecified; M06.9 Rheumatoid arthritis, unspecified; M48.00 Spinal stenosis, site unspecified; M35.00 Sjogren syndrome, unspecified; Z79.4 Long term (current) use of insulin; Z79.890 Hormone replacement therapy; Z79.899 Other long term (current) drug therapy; Z85.820 Personal history of malignant melanoma of skin; Z87.891 Personal history of nicotine dependence; Z98.42 Cataract extraction status, left eye; Z98.41 Cataract extraction status, right eye; Z96.1 Presence of intraocular lens; Z83.49 Family history of other endocrine, nutritional and metabolic diseases; Z96.642 Presence of left artificial hip joint; Z87.440 Personal history of urinary (tract) infections; I73.00 Raynaud's syndrome without gangrene; Z82.3 Family history of stroke; Z83.6 Family history of other diseases of the respiratory system; Z86.14 Personal history of Methicillin resistant Staphylococcus aureus infection; Z88.1 Allergy status to other antibiotic agents; Z88.2 Allergy status to sulfonamides
CPT/HCPCS: 36415; 74177; 80053; 81003; 82009; 82550; 83690; 83735; 84484; 85025; 86140; 96361; 96365; 96374; 96375; 99284

== ENCOUNTER 2018-11-19 00:14 | Inpatient (IN) | payer MEDICARE ==
[2018-11-19 00:25] LABS: Glucose,Whole Blood 186 mg/dL (75-99)
[2018-11-19] MEDS ORDERED: ASPIRIN 81 MG PO STA (00:31)
[2018-11-19] MEDS ORDERED: DILTIAZEM DRIP BOLUS FROM BAG 1 MG SOLN IV ONE (00:31)
--- NOTE | 2018-11-19 00:32 | ED ---
SOB HPI - General Chief Complaint: Shortness of Breath Stated Complaint: Afib Time Seen by Provider: 11/19/18 00:20 Source: EMS Mode of arrival: EMS Limitations: altered mental status - History of Present Illness Initial Comments: Rosalva is a 78-year-old female with extensive past medical history is brought to the ED via EMS for evaluation of shortness of breath. Patient reports that this evening she became short of breath, she tried breathing treatments didn't feel any better. EMS was contacted and found the patient to be in A. fib with RVR with heart rates in the 180s. Patient also had some mild accessory wheezing she is given a breathing treatment in route to the hospital. Patient denies any chest pain but reports significant pain in her lower back her is concerned she has a shingles outbreak. She has had shingles vaccine in the past. is a history of atrial fibrillation, she is on metoprolol and verapamil. She reports she's been compliant with her medications. She is also on L Michelle. - Related Data Home Medications Medication Instructions Recorded Confirmed Gabapentin [Neurontin] 1,200 mg PO TID 02/27/14 11/14/18 Lansoprazole [Prevacid] 15 mg PO HS 02/27/14 11/14/18 hydrOXYzine HCL [Atarax] 50 mg PO HS 04/12/16 11/14/18 Folic Acid 1 mg PO DAILY 08/13/16 11/14/18 Latanoprost [Xalatan 0.005%] 1 drop BOTH EYES HS 08/11/17 11/14/18 Levothyroxine Sodium [Synthroid] 224 mcg PO DAILY 08/11/17 11/14/18 Pilocarpine HCl [Salagen] 7.5 mg PO TID 08/11/17 11/14/18 metFORMIN HCL [Glucophage] 1,000 mg PO AC-BID@1200,1700 08/11/17 11/14/18 Adalimumab [Humira Pediatric 40 mg SQ WE 09/25/18 11/14/18 Crohn's] Furosemide [Lasix] 40 mg PO DAILY 09/25/18 11/14/18 HYDROcodone/APAP 10-325MG [[place] 1 tab PO Q6HR PRN 09/25/18 11/14/18 10-325] Insulin Degludec [Tresiba] 75 units SQ DAILY 09/25/18 11/15/18 Insulin Lispro [humaLOG Kwikpen] See Protocol SQ AC-TID 09/25/18 11/14/18 Metoprolol Tartrate [Lopressor] 25 mg PO BID 09/25/18 11/14/18 Tolterodine Tartrate [Detrol LA] 4 mg PO DAILY 09/25/18 11/14/18 Gabapentin 1,600 mg PO HS 11/14/18 11/14/18 Leflunomide 20 mg PO DAILY 11/14/18 11/14/18 Methocarbamol [Robaxin] 750 mg PO TID 11/14/18 11/14/18 methylPREDNISolone Dose Pack See Taper PO DIRECTED 11/14/18 11/14/18 [Medrol Dose Pack] predniSONE 4 mg PO DAILY 11/14/18 11/14/18 tiZANidine [Zanaflex] 8 mg PO Q8HR PRN 11/15/18 11/15/18 Previous Rx's Medication Instructions Recorded Nitroglycerin Sl Tabs [Nitrostat] 0.4 mg SUBLINGUAL Q5M PRN #30 tab 08/13/17 Verapamil Sr [Isoptin Sr] 240 mg PO DAILY #30 tablet.er 08/13/17 Apixaban [Eliquis] 5 mg PO BID #60 tab 08/30/17 Lidocaine 5% Patch [Lidoderm 5% 1 patch TOPICAL DAILY #5 patch 11/16/18 Patch] Allergies Allergy/AdvReac Type Severity Reaction Status Date / Time adhesive Allergy Rash/Hives Verified 11/19/18 00:27 cephalexin [From Keflex] Allergy Rash/Hives Verified 11/19/18 00:27 grass pollen Allergy Unknown Verified 11/19/18 00:27 mold Allergy Unknown Verified 11/19/18 00:27 Sulfa (Sulfonamide Allergy Rash/Hives Verified 11/19/18 00:27 Antibiotics) newspaper ink Allergy Unknown Uncoded 11/19/18 00:27 Review of Systems ROS Statement: Those systems with pertinent positive or pertinent negative responses have been documented in the HPI. ROS Other: All systems not noted in ROS Statement are negative. Past Medical History Past Medical History: Atrial Fibrillation, Cancer, Diabetes Mellitus, Hyperlipidemia, Hypertension, Musculoskeletal Disorder, Neurologic Disorder, Osteoarthritis (OA), Renal Disease, Rheumatoid Arthritis (RA), Skin Disorder, Thyroid Disorder Additional Past Medical History / Comment(s): IDDM type II, spinal stenosis, Reynauds, neurologic sjogrens BALANCE ISSUES, SINUS INFECTIONS, HAS HAD DOUBLE VISION ALL HER LIFE-when looks certain directions, hypothyroidism, acute kidney failure psoriasis, UTI s, melanoma skin cancer lt arm, bilateral elbow bursitis with MRSA and I&Ds/antibiotics.pt stated never had gout. History of Any Multi-Drug Resistant Organisms: MRSA Date of last positivie culture/infection: 02/27/14 MDRO Source:: Sputum Past Surgical History: Back Surgery, Breast Surgery, Heart Catheterization, Joint Replacement, Orthopedic Surgery Additional Past Surgical History / Comment(s): Bilateral cataracts with lens implants, arthroscopies to lt wrist, gualberto knees, gualberto ankles, gualberto hips, lt hip replacment and redone, L/R shoulder sxs, rt breast bx-benign, egd/colonoscopy, skin cancer removal L arm. Past Anesthesia/Blood Transfusion Reactions: No Reported Reaction Past Psychological History: No Psychological Hx Reported Smoking Status: Former smoker Past Alcohol Use History: Occasional Past Drug Use History: None Reported - Past Family History Mother Family Medical History: CVA/TIA Additional Family Medical History / Comment(s): RUPTURED BOWEL Father Family Medical History: Cancer, Pneumonia Additional Family Medical History / Comment(s): ASPIRATIVE PNA Sister(s) Additional Family Medical History / Comment(s): at age 34 with lupus General Exam - General Exam Comments Initial Comments: Physical Exam GENERAL: Patient is well-developed and well-nourished. Patient is nontoxic and well-hy drated and is in no distress. HENT: Normocephalic, Atraumatic. EYES: PERRL, EOMI PULMONARY: Crackles at bases CARDIOVASCULAR: Irregularly irregular tachycardia ABDOMEN: Obese Soft and nontender with normal bowel sounds. SKIN: Seizure a rash over the right lumbar region concerning for shingles : Deferred NEUROLOGIC: Patient is alert and oriented x3. Moving all extremities spontaneously MUSCULOSKELETAL: Chronic deformity of bilateral feet PSYCHIATRIC: Normal psychiatric evaluation. Limitations: altered mental status Course Vital Signs 11/19/18 11/19/18 11/19/18 00:27 00:31 01:08 Temperature 97.9 F Pulse Rate 173 H 160 H Pulse Rate [ 172 H Apical] Respiratory 30 H 30 H Rate Blood Pressure 191/143 134/97 O2 Sat by Pulse 93 L 97 Oximetry 09/23/19 09/23/19 09/23/19 01:21 01:55 03:00 Temperature 99.8 F H Pulse Rate 168 H 172 H 146 H Pulse Rate [ Apical] Respiratory 28 H 26 H 26 H Rate Blood Pressure 142/80 129/89 109/64 O2 Sat by Pulse 95 95 95 Oximetry 11/19/18 11/19/18 11/19/18 03:37 04:15 04:22 Temperature 98.3 F Pulse Rate 147 H 154 H 146 H Pulse Rate [ Apical] Respiratory 24 24 24 Rate Blood Pressure 107/79 118/78 119/91 O2 Sat by Pulse 95 95 95 Oximetry 11/19/18 11/19/18 04:45 04:54 Temperature 99.1 F Pulse Rate 120 H 114 H Pulse Rate [ Apical] Respiratory 26 H 20 Rate Blood Pressure 114/73 113/70 O2 Sat by Pulse 96 97 Oximetry Medical Decision Making - Medical Decision Making The patient was seen and evaluated upon arrival emergency department if the patient was noted to be per family tachycardic with rates in the 160s to 180s, EKG was obtained, EKG obtained at 12:22 AM, rate is 177 rhythm is narrow complex irregularly irregular tachycardia consistent with atrial fibrillation with RVR. There is some ST depressions laterally but no acute ST elevations. Labs and imaging were ordered Cardizem bolus and infusion were ordered for management of A. fib with RVR Troponin mildly elevated this is likely a type II in STEMI secondary to tachycardia care was discussed with cardiology on-call Dr. Gillette who recommends adding amiodarone for better rate management Amiodarone infusion was ordered Chest x-ray concerning for right upper lobe pneumonia, Levaquin was ordered due to the patient's previous ALLERGIES care was again discussed with cardiology Dr. Gillette who recommended adding dig or Lopressor pushes. - Lab Data Result diagrams: 11/19/18 00:22 11/19/18 00:22 Lab Results 11/19/18 11/19/18 11/19/18 Range/Units 00:22 00:22 00:22 WBC 8.1 (3.8-10.6) k/uL RBC 4.63 (3.80-5.40) m/uL Hgb 13.0 (11.4-16.0) gm/dL Hct 40.0 (34.0-46.0) % MCV 86.5 (80.0-100.0) fL MCH 28.2 (25.0-35.0) pg MCHC 32.6 (31.0-37.0) g/dL RDW 18.3 H (11.5-15.5) % Plt Count 174 (150-450) k/uL Neutrophils % 71 % Lymphocytes % 17 % Monocytes % 8 % Eosinophils % 1 % Basophils % 1 % Neutrophils # 5.7 (1.3-7.7) k/uL Lymphocytes # 1.4 (1.0-4.8) k/uL Monocytes # 0.7 (0-1.0) k/uL Eosinophils # 0.1 (0-0.7) k/uL Basophils # 0.1 (0-0.2) k/uL Anisocytosis Slight PT (9.0-12.0) sec INR (<1.2) APTT (22.0-30.0) sec Sodium 138 (137-145) mmol/L Potassium 3.9 (3.5-5.1) mmol/L Chloride 100 (98-107) mmol/L Carbon Dioxide 24 (22-30) mmol/L Anion Gap 14 mmol/L BUN 15 (7-17) mg/dL Creatinine 0.61 (0.52-1.04) mg/dL Est GFR (CKD-EPI)AfAm >90 (>60 ml/min/1.73 sqM) Est GFR (CKD-EPI)NonAf 88 (>60 ml/min/1.73 sqM) Glucose 192 H (74-99) mg/dL POC Glucose (mg/dL) (75-99) mg/dL POC Glu Scrap Picker ID Plasma Lactic Acid Cj (0.7-2.0) mmol/L Calcium 9.4 (8.4-10.2) mg/dL Magnesium 1.5 L (1.6-2.3) mg/dL Total Bilirubin 1.3 (0.2-1.3) mg/dL AST 33 (14-36) U/L ALT 28 (9-52) U/L Alkaline Phosphatase 57 (38-126) U/L Troponin I (0.000-0.034) ng/mL NT-Pro-B Natriuret Pep 2240 pg/mL Total Protein 7.2 (6.3-8.2) g/dL Albumin 4.1 (3.5-5.0) g/dL 11/19/18 11/19/18 11/19/18 Range/Units 00:22 00:22 00:23 WBC (3.8-10.6) k/uL RBC (3.80-5.40) m/uL Hgb (11.4-16.0) gm/dL Hct (34.0-46.0) % MCV (80.0-100.0) fL MCH (25.0-35.0) pg MCHC (31.0-37.0) g/dL RDW (11.5-15.5) % Plt Count (150-450) k/uL Neutrophils % % Lymphocytes % % Monocytes % % Eosinophils % % Basophils % % Neutrophils # (1.3-7.7) k/uL Lymphocytes # (1.0-4.8) k/uL Monocytes # (0-1.0) k/uL Eosinophils # (0-0.7) k/uL Basophils # (0-0.2) k/uL Anisocytosis PT 11.6 (9.0-12.0) sec INR 1.1 (<1.2) APTT 20.6 L (22.0-30.0) sec Sodium (137-145) mmol/L Potassium (3.5-5.1) mmol/L Chloride (98-107) mmol/L Carbon Dioxide (22-30) mmol/L Anion Gap mmol/L BUN (7-17) mg/dL Creatinine (0.52-1.04) mg/dL Est GFR (CKD-EPI)AfAm (>60 ml/min/1.73 sqM) Est GFR (CKD-EPI)NonAf (>60 ml/min/1.73 sqM) Glucose (74-99) mg/dL POC Glucose (mg/dL) 186 H (75-99) mg/dL POC Glu Scrap Picker ID Valentine Marquis Plasma Lactic Acid Cj (0.7-2.0) mmol/L Calcium (8.4-10.2) mg/dL Magnesium (1.6-2.3) mg/dL Total Bilirubin (0.2-1.3) mg/dL AST (14-36) U/L ALT (9-52) U/L Alkaline Phosphatase (38-126) U/L Troponin I 0.056 H* (0.000-0.034) ng/mL NT-Pro-B Natriuret Pep pg/mL Total Protein (6.3-8.2) g/dL Albumin (3.5-5.0) g/dL 11/19/18 Range/Units 04:00 WBC (3.8-10.6) k/uL RBC (3.80-5.40) m/uL Hgb (11.4-16.0) gm/dL Hct (34.0-46.0) % MCV (80.0-100.0) fL MCH (25.0-35.0) pg MCHC (31.0-37.0) g/dL RDW (11.5-15.5) % Plt Count (150-450) k/uL Neutrophils % % Lymphocytes % % Monocytes % % Eosinophils % % Basophils % % Neutrophils # (1.3-7.7) k/uL Lymphocytes # (1.0-4.8) k/uL Monocytes # (0-1.0) k/uL Eosinophils # (0-0.7) k/uL Basophils # (0-0.2) k/uL Anisocytosis PT (9.0-12.0) sec INR (<1.2) APTT (22.0-30.0) sec Sodium (137-145) mmol/L Potassium (3.5-5.1) mmol/L Chloride (98-107) mmol/L Carbon Dioxide (22-30) mmol/L Anion Gap mmol/L BUN (7-17) mg/dL Creatinine (0.52-1.04) mg/dL Est GFR (CKD-EPI)AfAm (>60 ml/min/1.73 sqM) Est GFR (CKD-EPI)NonAf (>60 ml/min/1.73 sqM) Glucose (74-99) mg/dL POC Glucose (mg/dL) (75-99) mg/dL POC Glu Scrap Picker ID Plasma Lactic Acid Cj 2.0 (0.7-2.0) mmol/L Calcium (8.4-10.2) mg/dL Magnesium (1.6-2.3) mg/dL Total Bilirubin (0.2-1.3) mg/dL AST (14-36) U/L ALT (9-52) U/L Alkaline Phosphatase (38-126) U/L Troponin I (0.000-0.034) ng/mL NT-Pro-B Natriuret Pep pg/mL Total Protein (6.3-8.2) g/dL Albumin (3.5-5.0) g/dL Critical Care Time Critical Care Time: Yes Total Critical Care Time: 45 Critical Care Time: Critical Care Time Critical care time was exclusive of separately billable procedures and treating other patients and teaching time. Critical care was necessary to treat or prevent imminent or life-threatening deterioration. Given the critical condition in which the patient arrived, the patient was immediately assessed by myself and the nurse, and cardiac monitoring initiated due to the potential for rapid decompensation of the patient's clinical condition. During the course of the patients stay, I spent a considerable amount of time at the bedside performing serial re-evaluations of the patient's hemodynamic and clinical status because of the recognized potential threat to life or limb in this condition. I then had a chance to review not only all of the available current laboratory and radiographic studies obtained today, but I also reviewed old records available to me at the time. Additionally, any ancillary information available including delivery mgr records were reviewed. Sequential vital signs were obtained. Disposition Clinical Impression: Community acquired pneumonia, Atrial fibrillation with RVR Disposition: ADMITTED IP TO THIS HOSP Condition: Serious Is patient prescribed a controlled substance at d/c from ED?: No
[2018-11-19 00:58] LABS: Anisocytosis Slight; Basophils # (A) 0.1 k/uL (0-0.2); Basophils % (A) 1 %; Eosinophils # (A) 0.1 k/uL (0-0.7); Eosinophils % (A) 1 %; Lymphocytes # (A) 1.4 k/uL (1.0-4.8); Lymphocytes % (A) 17 %; MCH 28.2 pg (25.0-35.0); MCHC 32.6 g/dL (31.0-37.0); MCV 86.5 fL (80.0-100.0); Mean Platelet Volume 7.9; Monocytes # (A) 0.7 k/uL (0-1.0); Monocytes % (A) 8 %; Neutrophils # (A) 5.7 k/uL (1.3-7.7); Neutrophils % (A) 71 %; Platelet Count 174 k/uL (150-450); RBC 4.63 m/uL (3.80-5.40); RDW 18.3 % (11.5-15.5); WBC 8.1 k/uL (3.8-10.6)
--- NOTE | 2018-11-19 00:58 | XR ---
EXAMINATION TYPE: XR chest 1V portable DATE OF EXAM: 11/19/2018 COMPARISON: 05/14/2018 HISTORY: Chest pain TECHNIQUE: Single frontal view of the chest is obtained. FINDINGS: There is some airspace consolidation in the right upper lobe. Heart is slightly enlarged. There is no gross heart failure. There is slight blunting of the costophrenic angles. IMPRESSION: There is right upper lobe pneumonia that is new compared to last exam. Pulmonary fibroti c changes. No overt heart failure. There are probably small pleural effusions new compared to last ex am.
[2018-11-19] MEDS: DILTIAZEM 125 MG in SODIUM CHLORIDE 0.9% 100 ML IV SCH (01:03)
[2018-11-19 01:14] LABS: INR 1.1 (<1.2); Prothrombin Time 11.6 sec (9.0-12.0)
[2018-11-19 01:37] LABS: Partial Thromboplastin Time 20.6 sec (22.0-30.0)
[2018-11-19 01:45] LABS: ALT 28 U/L (9-52); AST 33 U/L (14-36); African American GFR (CKD) >90 (>60 ml/min/1.73 sqM); Albumin 4.1 g/dL (3.5-5.0); Alkaline Phosphatase 57 U/L (38-126); Anion Gap 14 mmol/L; Blood Urea Nitrogen 15 mg/dL (7-17); Calcium 9.4 mg/dL (8.4-10.2); Carbon Dioxide 24 mmol/L (22-30); Chloride 100 mmol/L (98-107); Glucose 192 mg/dL (74-99); Magnesium 1.5 mg/dL (1.6-2.3); Potassium 3.9 mmol/L (3.5-5.1); Sodium 138 mmol/L (137-145); Total Bilirubin 1.3 mg/dL (0.2-1.3); Total Protein 7.2 g/dL (6.3-8.2)
[2018-11-19] MEDS ORDERED: DEXTROSE 5% IN WATER 100 ML with AMIODARONE 150 MG IV ONE (02:30)
[2018-11-19] MEDS ORDERED: AMIODARONE 360 MG in DEXTROSE 5% IN WATER 200 ML IV ONE ×2 (02:30)
[2018-11-19] MEDS ORDERED: LEVOFLOXACIN 750MG-D5W PMX 750 MG in DEXTROSE/WATER 1 150ML.BAG IVPB STA (03:29)
[2018-11-19] MEDS: METOPROLOL TARTRATE 5 MG/5 ML VIAL IVP SCH ×3 (04:17→05:55)
[2018-11-19] MEDS ORDERED: ACETAMINOPHEN TAB 325 MG TAB PO PRN (04:28)
[2018-11-19] MEDS ORDERED: NALOXONE 0.4 MG/ML 1 ML VIAL IV PRN (04:28)
[2018-11-19] MEDS: MORPHINE SULFATE 4 MG/ML SYRINGE IV PRN ×5 (04:43→21:30)
[2018-11-19 05:22] LABS: Glucose,Whole Blood 236 mg/dL (75-99)
[2018-11-19 06:38] VITALS: BMI 36.8
[2018-11-19 06:53] LABS: Glucose,Whole Blood 241 mg/dL (75-99)
[2018-11-19] MEDS ORDERED: NITROGLYCERIN SL TABS 0.4 MG TAB SUBLINGUAL PRN (07:59)
--- NOTE | 2018-11-19 07:59 | P.HPIM ---
History of Present Illness H&P Date: 11/19/18 Chief Complaint: Shortness of breath This is a history and physical on a 78-year-old white female who was recently admitted for observation status because of right-sided chest pain. Because of atypical nature cardiology and I signed off on the patient at but 2 days later, she had worsening shortness of breath. Readmission to the emergency room showed atrial fibrillation with rapid ventricular response and she now admitted for this. No fever or chills. She seems somewhat tired and slightly disoriented today. No history of illicit substance abuse or alcohol abuse. Review of Systems Constitutional: Denies chills, Denies fever Eyes: denies blurred vision, denies pain Ears, nose, mouth and throat: Denies headache, Denies sore throat Cardiovascular: Reports rapid heart beat, Reports shortness of breath Respiratory: Denies cough Gastrointestinal: Denies abdominal pain, Denies diarrhea, Denies nausea, Denies vomiting Genitourinary: Denies dysuria, Denies hematuria Past Medical History Past Medical History: Atrial Fibrillation, Cancer, Diabetes Mellitus, Hyperlipidemia, Hypertension, Musculoskeletal Disorder, Neurologic Disorder, O steoarthritis (OA), Renal Disease, Rheumatoid Arthritis (RA), Skin Disorder, Thyroid Disorder Additional Past Medical History / Comment(s): IDDM type II, spinal stenosis, Reynauds, neurologic sjogrens BALANCE ISSUES, SINUS INFECTIONS, HAS HAD DOUBLE VISION ALL HER LIFE-when looks certain directions, hypothyroidism, acute kidney failure psoriasis, UTI s, melanoma skin cancer lt arm, bilateral elbow bursitis with MRSA and I&Ds/antibiotics.pt stated never had gout. History of Any Multi-Drug Resistant Organisms: MRSA Date of last positivie culture/infection: 02/27/14 MDRO Source:: Sputum Past Surgical History: Back Surgery, Breast Surgery, Heart Catheterization, Joint Replacement, Orthopedic Surgery Additional Past Surgical History / Comment(s): Bilateral cataracts with lens implants, arthroscopies to lt wrist, gualberto knees, gualberto ankles, gualberto hips, lt hip replacment and redone, L/R shoulder sxs, rt breast bx-benign, egd/colonoscopy, skin cancer removal L arm. Past Anesthesia/Blood Transfusion Reactions: No Reported Reaction Past Psychological History: No Psychological Hx Reported Smoking Status: Former smoker Past Alcohol Use History: Occasional Past Drug Use History: None Reported - Past Family History Mother Family Medical History: CVA/TIA Additional Family Medical History / Comment(s): RUPTURED BOWEL Father Family Medical History: Cancer, Pneumonia Additional Family Medical History / Comment(s): ASPIRATIVE PNA Sister(s) Additional Family Medical History / Comment(s): at age 34 with lupus Medications and Allergies Home Medications Medication Instructions Recorded Confirmed Type Gabapentin [Neurontin] 1,200 mg PO TID 02/27/14 11/19/18 History Lansoprazole [Prevacid] 15 mg PO HS 02/27/14 11/19/18 History hydrOXYzine HCL [Atarax] 50 mg PO HS 04/12/16 11/19/18 History Folic Acid 1 mg PO DAILY 08/13/16 11/19/18 History Latanoprost [Xalatan 0.005%] 1 drop BOTH EYES HS 08/11/17 11/19/18 History Levothyroxine Sodium [Synthroid] 224 mcg PO DAILY 08/11/17 11/19/18 History Pilocarpine HCl [Salagen] 7.5 mg PO TID 08/11/17 11/19/18 History metFORMIN HCL [Glucophage] 1,000 mg PO AC-BID@1200,1700 08/11/17 11/19/18 History Nitroglycerin Sl Tabs [Nitrostat] 0.4 mg SUBLINGUAL Q5M PRN #30 tab 08/13/17 11/19/18 Rx Verapamil Sr [Isoptin Sr] 240 mg PO DAILY #30 tablet.er 08/13/17 11/19/18 Rx Apixaban [Eliquis] 5 mg PO BID #60 tab 08/30/17 11/19/18 Rx Adalimumab [Humira Pediatric 40 mg SQ WE 09/25/18 11/19/18 History Crohn's] Furosemide [Lasix] 40 mg PO DAILY 09/25/18 11/19/18 History HYDROcodone/APAP 10-325MG [[place] 1 tab PO Q6HR PRN 09/25/18 11/19/18 History 10-325] Insulin Degludec [Tresiba] 46 units SQ DAILY 09/25/18 11/19/18 History Insulin Lispro [humaLOG Kwikpen] See Protocol SQ AC-TID 09/25/18 11/19/18 History Tolterodine Tartrate [Detrol LA] 4 mg PO DAILY 09/25/18 11/19/18 History Gabapentin 1,600 mg PO HS 11/14/18 11/19/18 History Leflunomide 20 mg PO DAILY 11/14/18 11/19/18 History Methocarbamol [Robaxin] 750 mg PO TID 11/14/18 11/19/18 History methylPREDNISolone Dose Pack See Taper PO DIRECTED 11/14/18 11/19/18 History [Medrol Dose Pack] predniSONE 4 mg PO DAILY 11/14/18 11/19/18 History tiZANidine [Zanaflex] 4 - 8 mg PO HS PRN 11/15/18 11/19/18 History Aspirin EC [Ecotrin] 325 mg PO DAILY 11/19/18 11/19/18 History Calcium Carbonate/Vitamin D3 1 tab PO BID 11/19/18 11/19/18 History [Calcium 500-Vit D3 200 Tablet] Clotrimazole [Lotrimin AF] 1 applic TOPICAL DAILY 11/19/18 11/19/18 History Cyclobenzaprine [Flexeril] 10 mg PO BID 11/19/18 11/19/18 History Glucosam/Cristian-Msm1/C/Finn/Bosw 1 tab PO DAILY 11/19/18 11/19/18 History [Glucosamine-Chondroitin Tablet] Metoprolol Tartrate [Lopressor] 50 mg PO BID 11/19/18 11/19/18 History Multivitamins, Thera [Multivitamin 1 tab PO DAILY 11/19/18 11/19/18 History (formulary)] Rosuvastatin [Crestor] 10 mg PO HS 11/19/18 11/19/18 History Allergies Allergy/AdvReac Type Severity Reaction Status Date / Time adhesive Allergy Rash/Hives Verified 11/19/18 07:28 cephalexin [From Keflex] Allergy Rash/Hives Verified 11/19/18 07:28 grass pollen Allergy Unknown Verified 11/19/18 07:28 mold Allergy Unknown Verified 11/19/18 07:28 Sulfa (Sulfonamide Allergy Rash/Hives Verified 11/19/18 07:28 Antibiotics) newspaper ink Allergy Unknown Uncoded 11/19/18 00:27 Physical Exam Vitals: Vital Signs Temp Pulse Pulse Resp BP Pulse Ox 11/19/18 07:00 113 H 20 91/58 98 11/19/18 06:30 122 H 22 90/61 97 11/19/18 06:00 115 H 19 90/54 97 11/19/18 05:30 97.6 F 116 H 20 93/56 96 11/19/18 04:54 99.1 F 114 H 20 113/70 97 11/19/18 04:45 120 H 26 H 114/73 96 11/19/18 04:22 146 H 24 119/91 95 11/19/18 04:15 98.3 F 154 H 24 118/78 95 11/19/18 03:37 147 H 24 107/79 95 11/19/18 03:00 99.8 F H 146 H 26 H 109/64 95 11/19/18 01:55 172 H 26 H 129/89 95 11/19/18 01:21 168 H 28 H 142/80 95 11/19/18 01:08 160 H 30 H 134/97 97 11/19/18 00:31 172 H 11/19/18 00:27 97.9 F 173 H 30 H 191/143 93 L Intake and Output 11/18/18 11/19/18 11/19/18 22:59 06:59 14:59 Intake Total 182.000 Balance 182.000 Intake: Intake, IV Titration 182.000 Amount Diltiazem 125 mg In 32.000 Sodium Chloride 0.9% 100 ml @ Per Protocol IV .Q0M [facility] Rx#:[id number] Levofloxacin 750Mg-D5w 150 Pmx 750 mg In Dextrose/ Water 1 150ml.bag @ 100 mls/hr IVPB ONCE STA Rx#: [id number] Other: Weight 136.577 kg - EENT Eyes: no abnormal pupil - Neck Neck: no lymphadenopathy - Respiratory Respiratory: bilateral: CTA - Cardiovascular Rhythm: regularly irregular Heart sounds: normal: S1, S2 Abnormal Heart Sounds: no S3 Gallop - Gastrointestinal General gastrointestinal: soft, no tenderness - Integumentary Integumentary: cellulitis - Musculoskeletal Musculoskeletal: generalized weakness - Psychiatric Psychiatric: A&O x's 3, no appropriate affect Results CBC & Chem 7: 11/19/18 00:22 11/19/18 00:22 Labs: Abnormal Lab Results - Last 24 Hours (Table) 11/19/18 11/19/18 11/19/18 Range/Units 00:22 00:22 00:22 RDW 18.3 H (11.5-15.5) % APTT 20.6 L (22.0-30.0) sec Glucose 192 H (74-99) mg/dL POC Glucose (mg/dL) (75-99) mg/dL Magnesium 1.5 L (1.6-2.3) mg/dL Troponin I (0.000-0.034) ng/mL 11/19/18 11/19/18 11/19/18 Range/Units 00:22 00:23 05:10 RDW (11.5-15.5) % APTT (22.0-30.0) sec Glucose (74-99) mg/dL POC Glucose (mg/dL) 186 H 236 H (75-99) mg/dL Magnesium (1.6-2.3) mg/dL Troponin I 0.056 H* (0.000-0.034) ng/mL 11/19/18 Range/Units 06:42 RDW (11.5-15.5) % APTT (22.0-30.0) sec Glucose (74-99) mg/dL POC Glucose (mg/dL) 241 H (75-99) mg/dL Magnesium (1.6-2.3) mg/dL Troponin I (0.000-0.034) ng/mL Thrombosis Risk Factor Assmnt - Choose All That Apply Any of the Below Risk Factors Present?: Yes Each Factor Represents 1 point: Medical pt on bed rest, Obesity (BMI >25), Serious lung disease incl. pneumonia (< 1month), Swollen legs (current) Other Risk Factors: Yes Each Risk Factor Represents 3 Points: Age 75 years or older Thrombosis Risk Factor Assessment Total Risk Factor Score: 7 Thrombosis Risk Factor Assessment Level: High Risk Assessment and Plan (1) Atrial fibrillation with RVR Current Visit: Yes Status: Acute Code(s): I48.91 - UNSPECIFIED ATRIAL FIBRILLATION SNOMED Code(s): 252926332297225 (2) Community acquired pneumonia Current Visit: Yes Status: Acute Code(s): J18.9 - PNEUMONIA, UNSPECIFIED ORGANISM SNOMED Code(s): 118698352 (3) Diabetes Current Visit: No Status: Acute Code(s): E11.9 - TYPE 2 DIABETES MELLITUS WITHOUT COMPLICATIONS SNOMED Code(s): 61190427 (4) Elevated troponin Current Visit: No Status: Acute Code(s): R74.8 - ABNORMAL LEVELS OF OTHER SERUM ENZYMES SNOMED Code(s): 494251881 (5) Generalized weakness Current Visit: No Status: Acute Code(s): R53.1 - WEAKNESS SNOMED Code(s): 22065558 Plan: Titrate medication for rate control. Reconcile home medications. Was on sliding scale. Check CBC and CMP in a.m. Appreciate multiple consultants input. See orders otherwise. Prognosis is guarded. The patient is otherwise full code.
[2018-11-19] MEDS: INSULIN ASPART (NovoLOG) 100 UNIT/ML VIAL SQ SCH ×4 (08:10→21:30)
[2018-11-19 08:20] LABS: Glucose,Whole Blood 213 mg/dL (75-99)
[2018-11-19] MEDS: METOPROLOL TARTRATE 50 MG TAB PO SCH ×2 (08:43→21:29)
[2018-11-19] MEDS: GABAPENTIN 400 MG CAP PO SCH ×2 (09:31→13:07)
[2018-11-19] MEDS: APIXABAN 5 MG TAB PO SCH ×2 (09:31→21:28)
[2018-11-19] MEDS: FOLIC ACID 1 MG TAB PO SCH (09:31)
[2018-11-19] MEDS: CLOTRIMAZOLE 1% CREAM 15 GM TUBE TOPICAL SCH (09:31)
[2018-11-19] MEDS: MULTIVITAMINS, THERA 1 EACH TAB PO SCH (09:31)
[2018-11-19] MEDS: LEVOTHYROXINE 112 MCG TAB PO SCH (09:40)
[2018-11-19] MEDS: predniSONE 1 MG TAB PO SCH (09:45)
[2018-11-19] MEDS: OXYBUTYNIN 10 MG TAB.ER.24 PO SCH (09:45)
[2018-11-19] MEDS: PILOCARPINE 5 MG TAB PO SCH ×3 (09:45→21:29)
[2018-11-19] MEDS: valACYclovir HCL 1,000 MG TABLET PO SCH ×2 (09:46→21:29)
[2018-11-19] MEDS: LEFLUNOMIDE 20 MG TAB PO SCH (09:46)
[2018-11-19 12:04] LABS: Glucose,Whole Blood 203 mg/dL (75-99)
[2018-11-19] MEDS: AMIODARONE 300 MG in DEXTROSE 5% IN WATER 250 ML IV SCH ×4 (12:45→21:28)
[2018-11-19] MEDS: NON FORMULARY DRUG (Glucosam/Chon-Msm1/C/Mang/Bosw [Glucosamine-Chondroitin Tablet] 1 TAB) PO SCH (13:07)
[2018-11-19] MEDS: NEURONTIN 800 MG PO SCH ×2 (15:02→21:29)
[2018-11-19] MEDS: AZITHROMYCIN 500 MG in SODIUM CHLORIDE 0.9% 250 ML IVPB SCH ×2 (15:36→15:44)
[2018-11-19] MEDS ORDERED: LEVOFLOXACIN 500MG-D5W PMX 500 MG in DEXTROSE/WATER 1 100ML.BAG IVPB SCH (15:45)
--- NOTE | 2018-11-19 16:56 | P.CRDCN ---
History of Present Illness Consult date: 11/19/18 History of present illness: This is a 78-year-old female with history of mild coronary artery disease, paroxysmal atrial fibrillation on long-term anticoagulation, hypertension, dyslipidemia, diabetes mellitus who follows with Dr. Gaytan regularly. Patient came to hospital with complaints of right-sided chest pain and also pulmonary congestion and cough and worsening shortness of breath. On admission patient was found to have atrial fibrillation with rapid ventricular response. Chest x- ray is consistent with pneumonia. Patient was started on IV amiodarone and also Cardizem and is admitted here for further evaluation. Her heart rate is moderately controlled at this time. She doesn't seem to be in acute distress. She is currently being treated with antibiotics for pneumonia. Will stay on the current cardiac medications Review of Systems As per the chart Past Medical History Past Medical History: Atrial Fibrillation, Cancer, Diabetes Mellitus, Hyperlipidemia, Hypertension, Musculoskeletal Disorder, Neurologic Disorder, Osteoarthritis (OA), Renal Disease, Rheumatoid Arthritis (RA), Skin Disorder, Thyroid Disorder Additional Past Medical History / Comment(s): IDDM type II, spinal stenosis, Reynauds, neurologic sjogrens BALANCE ISSUES, SINUS INFECTIONS, HAS HAD DOUBLE VISION ALL HER LIFE-when looks certain directions, hypothyroidism, acute kidney failure psoriasis, UTI s, melanoma skin cancer lt arm, bilateral elbow bursitis with MRSA and I&Ds/antibiotics.pt stated never had gout. History of Any Multi-Drug Resistant Organisms: MRSA Date of last positivie culture/infection: 02/27/14 MDRO Source:: Sputum Past Surgical History: Back Surgery, Breast Surgery, Heart Catheterization, Joint Replacement, Orthopedic Surgery Additional Past Surgical History / Comment(s): Bilateral cataracts with lens implants, arthroscopies to lt wrist, gualberto knees, gualberto ankles, gualberto hips, lt hip replacment and redone, L/R shoulder sxs, rt breast bx-benign, egd/colonoscopy, skin cancer removal L arm. Past Anesthesia/Blood Transfusion Reactions: No Reported Reaction Past Psychological History: No Psychological Hx Reported Smoking Status: Former smoker Past Alcohol Use History: Occasional Past Drug Use History: None Reported - Past Family History Mother Family Medical History: CVA/TIA Additional Family Medical History / Comment(s): RUPTURED BOWEL Father Family Medical History: Cancer, Pneumonia Additional Family Medical History / Comment(s): ASPIRATIVE PNA Sister(s) Additional Family Medical History / Comment(s): at age 34 with lupus Medications and Allergies Home Medications Medication Instructions Recorded Confirmed Type Gabapentin [Neurontin] 1,200 mg PO TID 02/27/14 11/19/18 History Lansoprazole [Prevacid] 15 mg PO HS 02/27/14 11/19/18 History hydrOXYzine HCL [Atarax] 50 mg PO HS 04/12/16 11/19/18 History Folic Acid 1 mg PO DAILY 08/13/16 11/19/18 History Latanoprost [Xalatan 0.005%] 1 drop BOTH EYES HS 08/11/17 11/19/18 History Levothyroxine Sodium [Synthroid] 224 mcg PO DAILY 08/11/17 11/19/18 History Pilocarpine HCl [Salagen] 7.5 mg PO TID 08/11/17 11/19/18 History metFORMIN HCL [Glucophage] 1,000 mg PO AC-BID@1200,1700 08/11/17 11/19/18 History Nitroglycerin Sl Tabs [Nitrostat] 0.4 mg SUBLINGUAL Q5M PRN #30 tab 08/13/17 11/19/18 Rx Verapamil Sr [Isoptin Sr] 240 mg PO DAILY #30 tablet.er 08/13/17 11/19/18 Rx Apixaban [Eliquis] 5 mg PO BID #60 tab 08/30/17 11/19/18 Rx Adalimumab [Humira Pediatric 40 mg SQ WE 09/25/18 11/19/18 History Crohn's] Furosemide [Lasix] 40 mg PO DAILY 09/25/18 11/19/18 History HYDROcodone/APAP 10-325MG [[place] 1 tab PO Q6HR PRN 09/25/18 11/19/18 History 10-325] Insulin Degludec [Tresiba] 46 units SQ DAILY 09/25/18 11/19/18 History Insulin Lispro [humaLOG Kwikpen] See Protocol SQ AC-TID 09/25/18 11/19/18 History Tolterodine Tartrate [Detrol LA] 4 mg PO DAILY 09/25/18 11/19/18 History Gabapentin 1,600 mg PO HS 11/14/18 11/19/18 History Leflunomide 20 mg PO DAILY 11/14/18 11/19/18 History Methocarbamol [Robaxin] 750 mg PO TID 11/14/18 11/19/18 History methylPREDNISolone Dose Pack See Taper PO DIRECTED 11/14/18 11/19/18 History [Medrol Dose Pack] predniSONE 4 mg PO DAILY 11/14/18 11/19/18 History tiZANidine [Zanaflex] 4 - 8 mg PO HS PRN 11/15/18 11/19/18 History Aspirin EC [Ecotrin] 325 mg PO DAILY 11/19/18 11/19/18 History Calcium Carbonate/Vitamin D3 1 tab PO BID 11/19/18 11/19/18 History [Calcium 500-Vit D3 200 Tablet] Clotrimazole [Lotrimin AF] 1 applic TOPICAL DAILY 11/19/18 11/19/18 History Cyclobenzaprine [Flexeril] 10 mg PO BID 11/19/18 11/19/18 History Glucosam/Cristian-Msm1/C/Finn/Bosw 1 tab PO DAILY 11/19/18 11/19/18 History [Glucosamine-Chondroitin Tablet] Metoprolol Tartrate [Lopressor] 50 mg PO BID 11/19/18 11/19/18 History Multivitamins, Thera [Multivitamin 1 tab PO DAILY 11/19/18 11/19/18 History (formulary)] Rosuvastatin [Crestor] 10 mg PO HS 11/19/18 11/19/18 History Allergies Allergy/AdvReac Type Severity Reaction Status Date / Time adhesive Allergy Rash/Hives Verified 11/19/18 07:28 cephalexin [From Keflex] Allergy Rash/Hives Verified 11/19/18 07:28 grass pollen Allergy Unknown Verified 11/19/18 07:28 mold Allergy Unknown Verified 11/19/18 07:28 Sulfa (Sulfonamide Allergy Rash/Hives Verified 11/19/18 07:28 Antibiotics) newspaper ink Allergy Unknown Uncoded 11/19/18 00:27 Physical Exam Vitals: Vital Signs Temp Pulse Pulse Resp BP Pulse Ox 11/19/18 12:00 98.2 F 93 18 97/72 97 11/19/18 11:30 105 H 18 119/69 97 11/19/18 11:00 107 H 22 108/72 96 11/19/18 10:30 93 7 L 99/60 98 11/19/18 10:00 106 H 19 96/54 95 11/19/18 09:30 105 H 16 103/61 95 11/19/18 09:00 103 H 12 88/52 96 11/19/18 08:30 110 H 16 92/61 97 11/19/18 08:00 98.1 F 105 H 12 89/74 97 11/19/18 07:00 113 H 20 91/58 98 11/19/18 06:30 122 H 22 90/61 97 11/19/18 06:00 115 H 19 90/54 97 11/19/18 05:30 97.6 F 116 H 20 93/56 96 11/19/18 04:54 99.1 F 114 H 20 113/70 97 11/19/18 04:45 120 H 26 H 114/73 96 11/19/18 04:22 146 H 24 119/91 95 11/19/18 04:15 98.3 F 154 H 24 118/78 95 11/19/18 03:37 147 H 24 107/79 95 11/19/18 03:00 99.8 F H 146 H 26 H 109/64 95 11/19/18 01:55 172 H 26 H 129/89 95 11/19/18 01:21 168 H 28 H 142/80 95 11/19/18 01:08 160 H 30 H 134/97 97 11/19/18 00:31 172 H 11/19/18 00:27 97.9 F 173 H 30 H 191/143 93 L Intake and Output 11/19/18 11/19/18 11/19/18 06:59 14:59 22:59 Intake Total 182.000 220 Output Total 500 Balance 182.000 -280 Intake: IV 220 0.9 220 Intake, IV Titration 182.000 Amount Diltiazem 125 mg In 32.000 Sodium Chloride 0.9% 100 ml @ Per Protocol IV .Q0M [facility], [facility]1983 Rx#:[id number] Levofloxacin 750Mg-D5w 150 Pmx 750 mg In Dextrose/ Water 1 150ml.bag @ 100 mls/hr IVPB ONCE STA Rx#: [id number] Output: Urine 500 Other: Voiding Method Incontinent Incontinent # Bowel Movements 1 Weight 136.577 kg GENERAL EXAM: Patient is alert and oriented and doesn't appear to be in any acute distress HEENT: Normocephalic. Normal reaction of pupils, equal size, normal range of extraocular motion. No erythema or exudates in the throat. NECK: No masses, no nuchal rigidity. CHEST: No chest wall deformity. LUNGS: Diminished breath sounds with scattered rhonchi HEART: S1 and S2 normal. Irregular heart sounds ABDOMEN: No hepatosplenomegaly, normal bowel sounds, no guarding or rigidity. SKIN: No rashes CENTRAL NERVOUS SYSTEM: No focal deficits. EXTREMITIES: No cyanosis, clubbing or edema. Results 11/19/18 00:22 11/19/18 00:22 Cardiac Enzymes 11/19/18 11/19/18 Range/Units 00:22 00:22 AST 33 (14-36) U/L Troponin I 0.056 H* (0.000-0.034) ng/mL Coagulation 11/19/18 Range/Units 00:22 PT 11.6 (9.0-12.0) sec APTT 20.6 L (22.0-30.0) sec CBC 11/19/18 Range/Units 00:22 WBC 8.1 (3.8-10.6) k/uL RBC 4.63 (3.80-5.40) m/uL Hgb 13.0 (11.4-16.0) gm/dL Hct 40.0 (34.0-46.0) % Plt Count 174 (150-450) k/uL Comprehensive Metabolic Panel 11/19/18 Range/Units 00:22 Sodium 138 (137-145) mmol/L Potassium 3.9 (3.5-5.1) mmol/L Chloride 100 (98-107) mmol/L Carbon Dioxide 24 (22-30) mmol/L BUN 15 (7-17) mg/dL Creatinine 0.61 (0.52-1.04) mg/dL Glucose 192 H (74-99) mg/dL Calcium 9.4 (8.4-10.2) mg/dL AST 33 (14-36) U/L ALT 28 (9-52) U/L Alkaline Phosphatase 57 (38-126) U/L Total Protein 7.2 (6.3-8.2) g/dL Albumin 4.1 (3.5-5.0) g/dL Current Medications Generic Name Dose Route Start Last Admin Trade Name Freq PRN Reason Stop Dose Admin Acetaminophen 650 mg 11/19/18 04:28 11/19/18 04:41 Tylenol Tab PO 650 mg Q6HR PRN Administration Mild Pain or Fever > 100.5 Apixaban 5 mg 11/19/18 09:00 11/19/18 09:31 Eliquis PO 5 mg BID [facility] Administration Atorvastatin Calcium 20 mg 11/19/18 21:00 Lipitor PO HS [facility] Clotrimazole 1 applic 11/19/18 09:00 11/19/18 09:31 Lotrimin Cream TOPICAL 1 applic DAILY [facility] Administration Folic Acid 1 mg 11/19/18 09:00 11/19/18 09:31 Folic Acid PO 1 mg DAILY [facility] Administration Hydroxyzine HCl 50 mg 11/19/18 21:00 Atarax PO HS [facility] Diltiazem HCl 125 mg/ Sodium 125 mls @ 0 mls/hr 11/19/18 01:00 11/19/18 03:35 Chloride IV 5 ml/hr .Q0M [facility] 5 mls/hr Titration Protocol Per Protocol Amiodarone HCl 300 mg/ 250 mls @ 25 mls/hr 11/19/18 09:00 11/19/18 12:45 Dextrose/Water IV 11/20/18 02:59 0.5 mg/min .Q10H [facility] 25 mls/hr Administration Protocol 0.5 MG/MIN Levofloxacin 500 mg/ IV 100 mls @ 100 mls/hr 11/20/18 06:00 Solution IVPB Q24H [facility] Insulin Aspart 0 unit 11/19/18 07:30 11/19/18 13:07 Novolog SQ 4 unit ACHS [facility] Administration Protocol Latanoprost 1 drops 11/19/18 21:00 Xalatan 0.005% BOTH EYES HS [facility] Leflunomide 20 mg 11/19/18 09:00 11/19/18 09:46 Arava PO 20 mg DAILY [facility] Administration Levothyroxine Sodium 224 mcg 11/19/18 09:00 11/19/18 09:40 Synthroid PO 224 mcg DAILY@0630 [facility] Administration Metoprolol Tartrate 50 mg 11/19/18 09:00 11/19/18 08:43 Lopressor PO Not Given BID [facility] Morphine Sulfate 4 mg 11/19/18 04:28 11/19/18 14:22 Morphine Sulfate (Inj) IV 4 mg Q4HR PRN Administration Severe Pain Multivitamins 1 each 11/19/18 09:00 11/19/18 09:31 Theragran PO 1 each DAILY [facility] Administration Naloxone HCl 0.2 mg 11/19/18 04:28 Narcan IV Q2M PRN Opioid Reversal Nitroglycerin 0.4 mg 11/19/18 07:59 Nitrostat SUBLINGUAL Q5M PRN Chest Pain Non-Formulary Medication 1 tab 11/19/18 09:00 11/19/18 13:07 Glucosam/Cristian-Msm1/C/Finn/Bosw [Glucosamine-Chondroitin Tablet] PO Not Given DAILY [facility] *Pom* Neurontin 1.5 each 11/19/18 17:00 11/19/18 15:02 800mg Tablet PO 1.5 each TID@0900,1300,1700 [facility] Administration *Pom* Neurontin 2 each 11/19/18 21:00 800mg Tablet PO HS [facility] Oxybutynin Chloride 10 mg 11/19/18 09:00 11/19/18 09:45 Ditropan Xl PO 10 mg DAILY [facility] Administration Pantoprazole Sodium 40 mg 11/19/18 21:00 Protonix PO HS [facility] Pilocarpine HCl 7.5 mg 11/19/18 09:00 11/19/18 15:02 Salagen PO 7.5 mg TID [facility] Administration Prednisone 4 mg 11/19/18 09:00 11/19/18 09:45 PO 4 mg DAILY [facility] Administration Valacyclovir HCl 1,000 mg 11/19/18 09:00 11/19/18 09:46 Valtrex PO 1,000 mg BID [facility] Administration Intake and Output 11/19/18 11/19/18 11/19/18 06:59 14:59 22:59 Intake Total 182.000 220 Output Total 500 Balance 182.000 -280 Intake: IV 220 0.9 220 Intake, IV Titration 182.000 Amount Diltiazem 125 mg In 32.000 Sodium Chloride 0.9% 100 ml @ Per Protocol IV .Q0M [facility] Rx#:[id number] Levofloxacin 750Mg-D5w 150 Pmx 750 mg In Dextrose/ Water 1 150ml.bag @ 100 mls/hr IVPB ONCE STA Rx#: [id number] Output: Urine 500 Other: Voiding Method Incontinent Incontinent # Bowel Movements 1 Weight 136.577 kg 11/19/18 00:22 09/23/19 00:22 EKG Interpretations (text) Atrial fibrillation with rapid ventricular response Assessment and Plan (1) Atrial fibrillation with RVR Current Visit: Yes Status: Acute Code(s): I48.91 - UNSPECIFIED ATRIAL FIBRILLATION SNOMED Code(s): 247004297640380 (2) Community acquired pneumonia Current Visit: Yes Status: Acute Code(s): J18.9 - PNEUMONIA, UNSPECIFIED ORGANISM SNOMED Code(s): 599978558 (3) CAD (coronary artery disease) Current Visit: No Status: Acute Code(s): I25.10 - ATHSCL HEART DISEASE OF [place] CORONARY ARTERY W/O ANG PCTRS SNOMED Code(s): 13770673 Plan: Continue current medical therapy. We'll switch to by mouth amiodarone. Once the pneumonia is corrected, heart rate control will become easier.
[2018-11-19 17:08] LABS: Glucose,Whole Blood 225 mg/dL (75-99)
[2018-11-19 20:32] LABS: Glucose,Whole Blood 246 mg/dL (75-99)
[2018-11-19] MEDS ORDERED: GABAPENTIN 400 MG CAP PO SCH (21:00)
[2018-11-19] MEDS: ATORVASTATIN 20 MG TAB PO SCH (21:28)
[2018-11-19] MEDS: PANTOPRAZOLE 40 MG TABLET PO SCH (21:28)
[2018-11-19] MEDS: LATANOPROST 0.005% OPHTH DROPS 2.5 ML BTL BOTH EYES SCH (21:29)
[2018-11-19] MEDS: hydrOXYzine HCL 25 MG TAB PO SCH (21:29)
[2018-11-20] MEDS: METOPROLOL TARTRATE 5 MG/5 ML VIAL IVP SCH ×3 (00:02→19:43)
[2018-11-20] MEDS: MORPHINE SULFATE 4 MG/ML SYRINGE IV PRN ×6 (02:23→23:19)
[2018-11-20] MEDS: LEVOTHYROXINE 112 MCG TAB PO SCH (05:52)
[2018-11-20] MEDS ORDERED: LEVOFLOXACIN 500MG-D5W PMX 500 MG in DEXTROSE/WATER 1 100ML.BAG IVPB SCH (06:00)
[2018-11-20] MEDS: DILTIAZEM 125 MG in SODIUM CHLORIDE 0.9% 100 ML IV SCH ×2 (07:01→15:18)
[2018-11-20] MEDS: INSULIN ASPART (NovoLOG) 100 UNIT/ML VIAL SQ SCH ×4 (07:01→21:48)
[2018-11-20 07:03] LABS: Glucose,Whole Blood 160 mg/dL (75-99)
[2018-11-20] MEDS: APIXABAN 5 MG TAB PO SCH ×2 (10:26→21:48)
[2018-11-20] MEDS: FOLIC ACID 1 MG TAB PO SCH (10:27)
[2018-11-20] MEDS: LEFLUNOMIDE 20 MG TAB PO SCH (10:29)
[2018-11-20] MEDS: MULTIVITAMINS, THERA 1 EACH TAB PO SCH (10:31)
[2018-11-20] MEDS: OXYBUTYNIN 10 MG TAB.ER.24 PO SCH (10:32)
[2018-11-20] MEDS: PILOCARPINE 5 MG TAB PO SCH ×3 (10:33→21:47)
[2018-11-20] MEDS: CLOTRIMAZOLE 1% CREAM 15 GM TUBE TOPICAL SCH (10:36)
[2018-11-20] MEDS: valACYclovir HCL 1,000 MG TABLET PO SCH ×2 (10:36→21:50)
[2018-11-20] MEDS: predniSONE 1 MG TAB PO SCH (10:36)
[2018-11-20] MEDS: AMIODARONE 200 MG TAB PO SCH ×3 (10:40→21:54)
[2018-11-20] MEDS: NEURONTIN 800 MG PO SCH ×4 (11:03→21:47)
[2018-11-20] MEDS: NON FORMULARY DRUG (Glucosam/Chon-Msm1/C/Mang/Bosw [Glucosamine-Chondroitin Tablet] 1 TAB) PO SCH (12:29)
[2018-11-20 13:01] LABS: Glucose,Whole Blood 183 mg/dL (75-99)
[2018-11-20 13:12] LABS: Hemoglobin A1C 8.3 % (4.0-6.0)
[2018-11-20] MEDS: METOPROLOL TARTRATE 50 MG TAB PO SCH ×3 (16:39→21:48)
[2018-11-20 17:08] LABS: Glucose,Whole Blood 201 mg/dL (75-99)
--- NOTE | 2018-11-20 17:13 | P.PN ---
Subjective Progress Note Date: 11/20/18 This patient is being treated for pneumonia and also atrial fibrillation with rapid ventricular response. She is off amiodarone drip. I'm going to start her on by mouth amiodarone. I also increase the dose of the metoprolol. If heart rate is well controlled, will discontinue IV Cardizem tomorrow. She is getting IV antibiotics. Overall she seemed to be stable. She is also being treated for shingles. Lungs appeared to be relatively clear. Heart is irregular Objective - Vital Signs Vital signs: Vital Signs Temp 98.6 F 11/20/18 16:00 Pulse 90 11/20/18 16:00 Resp 11 L 11/20/18 16:20 BP 128/76 11/20/18 16:00 Pulse Ox 95 11/20/18 16:00 Intake & Output 11/19/18 11/20/18 11/20/18 18:59 06:59 18:59 Intake Total 220 217.917 372.833 Output Total 500 300 Balance -280 -82.083 372.833 Weight 134 kg Intake: IV 220 240 0.9 220 240 Intake, IV Titration 217.917 132.833 Amount Amiodarone 300 mg In 217.917 Dextrose 5% in Water 250 ml @ 0.5 MG/MIN 25 mls/hr IV .Q10H [facility] Rx#: [id number] Diltiazem 125 mg In 132.833 Sodium Chloride 0.9% 100 ml @ Per Protocol IV .Q0M [facility] Rx#:[id number] Output: Urine 500 300 Other: Voiding Method Incontinent Bedside Commode Bedside Commode # Voids 1 # Bowel Movements 1 1 - Exam GENERAL EXAM: Patient is alert and oriented and doesn't appear to be in any acute distress HEENT: Normocephalic. Normal reaction of pupils, equal size, normal range of extraocular motion. No erythema or exudates in the throat. NECK: No masses, no nuchal rigidity. CHEST: No chest wall deformity. LUNGS: Diminished breath sounds HEART: S1 and S2 normal with no audible mumurs or gallops. Regular rhythm, femorals equal on both sides.. ABDOMEN: No hepatosplenomegaly, normal bowel sounds, no guarding or rigidity. SKIN: No rashes CENTRAL NERVOUS SYSTEM: No focal deficits. EXTREMITIES: No cyanosis, clubbing or edema. - Labs CBC & Chem 7: 11/19/18 00:22 11/19/18 00:22 Labs: Abnormal Lab Results - Last 24 Hours (Table) 11/19/18 11/19/18 11/20/18 Range/Units 00:22 20:21 06:52 POC Glucose (mg/dL) 246 H 160 H (75-99) mg/dL Hemoglobin A1c 8.3 H (4.0-6.0) % 11/20/18 11/20/18 Range/Units 12:31 16:57 POC Glucose (mg/dL) 183 H 201 H (75-99) mg/dL Hemoglobin A1c (4.0-6.0) % Microbiology - Last 24 Hours (Table) 11/19/18 04:07 Blood Culture - Preliminary Blood No Growth after 24 hours Assessment and Plan (1) Atrial fibrillation with RVR Current Visit: Yes Status: Acute Code(s): I48.91 - UNSPECIFIED ATRIAL FIBRILLATION SNOMED Code(s): 622919290991654 (2) Community acquired pneumonia Current Visit: Yes Status: Acute Code(s): J18.9 - PNEUMONIA, UNSPECIFIED ORGANISM SNOMED Code(s): 290448575 (3) CAD (coronary artery disease) Current Visit: No Status: Acute Code(s): I25.10 - ATHSCL HEART DISEASE OF [place] CORONARY ARTERY W/O ANG PCTRS SNOMED Code(s): 08642616 Plan: Atrial fibrillation with a rapid ventricle response. Heart rate is better controlled. I'm going to increase the dose of beta kathi. Hopefully we can discontinue IV Cardizem tomorrow.
[2018-11-20 21:06] LABS: Glucose,Whole Blood 182 mg/dL (75-99)
[2018-11-20] MEDS: ATORVASTATIN 20 MG TAB PO SCH (21:48)
[2018-11-20] MEDS: hydrOXYzine HCL 25 MG TAB PO SCH (21:48)
[2018-11-20] MEDS: LATANOPROST 0.005% OPHTH DROPS 2.5 ML BTL BOTH EYES SCH (21:48)
[2018-11-20] MEDS: PANTOPRAZOLE 40 MG TABLET PO SCH (21:48)
--- NOTE | 2018-11-20 22:38 | P.PN ---
Subjective Progress Note Date: 11/20/18 Principal diagnosis: Atrial fibrillation with RVR This is a continue present a 78-year-old white female with known history of atrial fibrillation with rapid ventricular response who has also element of shingles on the right lower quadrant abdominal area. She is resting more com fortably this morning. No significant chest pressure or shortness of breath. No voiding difficulties otherwise stated. She still has significant rapid ventricular response. Objective - Vital Signs Vital signs: Vital Signs Temp 97.8 F 11/20/18 20:00 Pulse 80 11/20/18 20:00 Resp 16 11/20/18 20:00 BP 117/61 11/20/18 20:00 Pulse Ox 98 11/20/18 20:00 Intake & Output 11/20/18 11/20/18 11/21/18 06:59 18:59 06:59 Intake Total 217.917 372.833 61.167 Output Total 300 Balance -82.083 372.833 61.167 Weight 134 kg Intake: IV 240 0.9 240 Intake, IV Titration 217.917 132.833 61.167 Amount Amiodarone 300 mg In 217.917 Dextrose 5% in Water 250 ml @ 0.5 MG/MIN 25 mls/hr IV .Q10H [facility] Rx#: [id number] Diltiazem 125 mg In 132.833 61.167 Sodium Chloride 0.9% 100 ml @ Per Protocol IV .Q0M [facility] Rx#:[id number] Output: Urine 300 Other: Voiding Method Bedside Commode Bedside Commode # Voids 1 # Bowel Movements 1 - Constitutional General appearance: Present: obese - EENT Eyes: Present: abnormal pupil - Cardiovascular Rhythm: irregularly irregular Abnormal Heart Sounds: Absent: S3 Gallop - Integumentary Integumentary: Absent: cellulitis - Psychiatric Psychiatric: Present: A&O x's 3, appropriate affect - Labs CBC & Chem 7: 11/19/18 00:22 11/19/18 00:22 Labs: Abnormal Lab Results - Last 24 Hours (Table) 11/19/18 11/20/18 11/20/18 Range/Units 00:22 06:52 12:31 POC Glucose (mg/dL) 160 H 183 H (75-99) mg/dL Hemoglobin A1c 8.3 H (4.0-6.0) % 11/20/18 11/20/18 Range/Units 16:57 20:55 POC Glucose (mg/dL) 201 H 182 H (75-99) mg/dL Hemoglobin A1c (4.0-6.0) % Microbiology - Last 24 Hours (Table) 11/19/18 04:07 Blood Culture - Preliminary Blood No Growth after 24 hours Assessment and Plan (1) Atrial fibrillation with RVR Current Visit: Yes Status: Acute Code(s): I48.91 - UNSPECIFIED ATRIAL FIBRILLATION SNOMED Code(s): 499773092695547 (2) Community acquired pneumonia Current Visit: Yes Status: Acute Code(s): J18.9 - PNEUMONIA, UNSPECIFIED ORGANISM SNOMED Code(s): 666539916 (3) Diabetes Current Visit: No Status: Acute Code(s): E11.9 - TYPE 2 DIABETES MELLITUS WITHOUT COMPLICATIONS SNOMED Code(s): 67534670 (4) Elevated troponin Current Visit: No Status: Acute Code(s): R74.8 - ABNORMAL LEVELS OF OTHER S LANA ENZYMES SNOMED Code(s): 964876736 (5) Generalized weakness Current Visit: No Status: Acute Code(s): R53.1 - WEAKNESS SNOMED Code(s): 43637293 Plan: We will continue current regimen of treatment with amiodarone and Cardizem. Hopefully we can wean off the IV medication. Appreciate cardiology input. Check CBC and CMP in a.m.
[2018-11-21 05:42] LABS: African American GFR (CKD) >90 (>60 ml/min/1.73 sqM); Anion Gap 7 mmol/L; Blood Urea Nitrogen 11 mg/dL (7-17); Calcium 8.5 mg/dL (8.4-10.2); Carbon Dioxide 29 mmol/L (22-30); Chloride 99 mmol/L (98-107); Glucose 148 mg/dL (74-99); Potassium 3.7 mmol/L (3.5-5.1); Sodium 135 mmol/L (137-145)
[2018-11-21 05:45] LABS: Anisocytosis Slight; Basophils # (A) 0.1 k/uL (0-0.2); Basophils % (A) 3 %; Eosinophils # (A) 0.1 k/uL (0-0.7); Eosinophils % (A) 3 %; HGB 10.6 gm/dL (11.4-16.0); Lymphocytes # (A) 1.5 k/uL (1.0-4.8); Lymphocytes % (A) 35 %; MCH 28.1 pg (25.0-35.0); MCHC 32.2 g/dL (31.0-37.0); MCV 87.4 fL (80.0-100.0); Mean Platelet Volume 6.9; Monocytes # (A) 0.4 k/uL (0-1.0); Monocytes % (A) 9 %; Neutrophils % (A) 47 %; Platelet Count 166 k/uL (150-450); RBC 3.78 m/uL (3.80-5.40); WBC 4.3 k/uL (3.8-10.6)
[2018-11-21] MEDS: LEVOTHYROXINE 112 MCG TAB PO SCH (06:04)
[2018-11-21] MEDS: MORPHINE SULFATE 4 MG/ML SYRINGE IV PRN ×5 (06:05→22:08)
[2018-11-21 06:25] LABS: Glucose,Whole Blood 139 mg/dL (75-99)
[2018-11-21] MEDS: INSULIN ASPART (NovoLOG) 100 UNIT/ML VIAL SQ SCH ×4 (06:27→22:01)
--- NOTE | 2018-11-21 09:13 | P.PN ---
Subjective Progress Note Date: 11/21/18 This patient is being treated for pneumonia and also atrial fibrillation with rapid ventricular response. She is off amiodarone drip. I'm going to start her on by mouth amiodarone. I also increase the dose of the metoprolol. If heart rate is well controlled, will discontinue IV Cardizem tomorrow. She is getting IV antibiotics. Overall she seemed to be stable. She is also being treated for shingles. Lungs appeared to be relatively clear. Heart is irregular. 11/21/2018: This patient is admitted to the hospital with pneumonia atrial fibrillation with rapid ventricular response. Patient required multiple medications and control the heart rate. Currently she is on amiodarone and also IV Cardizem and Lopressor. I'm going to discontinue IV Cardizem and start her on by mouth Cardizem. Patient is otherwise doing well. She is also being treated for herpes [place]. Continue current medical therapy. Patient could be transferred to telemetry unit Objective - Vital Signs Vital signs: Vital Signs Temp 98.4 F 11/21/18 04:00 Pulse 81 11/21/18 08:00 Resp 21 11/21/18 08:00 BP 104/62 11/21/18 08:00 Pulse Ox 97 11/21/18 08:00 Intake & Output 11/20/18 11/21/18 11/21/18 18:59 06:59 18:59 Intake Total 372.833 61.167 20 Output Total 400 Balance 372.833 -338.833 20 Weight 135 kg Intake: IV 240 20 0.9 240 20 Intake, IV Titration 132.833 61.167 Amount Diltiazem 125 mg In 132.833 61.167 Sodium Chloride 0.9% 100 ml @ Per Protocol IV .Q0M [facility] Rx#:[id number] Output: Urine 400 Other: Voiding Method Bedside Commode Bedside Commode # Voids 1 1 # Bowel Movements 1 - Exam GENERAL EXAM: Patient is alert and oriented and doesn't appear to be in any acute distress HEENT: Normocephalic. Normal reaction of pupils, equal size, normal range of extraocular motion. No erythema or exudates in the throat. NECK: No masses, no nuchal rigidity. CHEST: No chest wall deformity. LUNGS: Diminished breath sounds HEART: S1 and S2 normal with no audible mumurs or gallops. Regular rhythm, femorals equal on both sides.. ABDOMEN: No hepatosplenomegaly, normal bowel sounds, no guarding or rigidity. SKIN: No rashes CENTRAL NERVOUS SYSTEM: No focal deficits. EXTREMITIES: No cyanosis, clubbing or edema. - Labs CBC & Chem 7: 11/21/18 04:50 11/21/18 04:50 Labs: Abnormal Lab Results - Last 24 Hours (Table) 11/19/18 11/20/18 11/20/18 Range/Units 00:22 12:31 16:57 RBC (3.80-5.40) m/uL Hgb (11.4-16.0) gm/dL Hct (34.0-46.0) % RDW (11.5-15.5) % Sodium (137-145) mmol/L Glucose (74-99) mg/dL POC Glucose (mg/dL) 183 H 201 H (75-99) mg/dL Hemoglobin A1c 8.3 H (4.0-6.0) % 11/20/18 11/21/18 11/21/18 Range/Units 20:55 04:50 04:50 RBC 3.78 L (3.80-5.40) m/uL Hgb 10.6 L (11.4-16.0) gm/dL Hct 33.0 L (34.0-46.0) % RDW 16.0 H (11.5-15.5) % Sodium 135 L (137-145) mmol/L Glucose 148 H (74-99) mg/dL POC Glucose (mg/dL) 182 H (75-99) mg/dL Hemoglobin A1c (4.0-6.0) % 11/21/18 Range/Units 06:13 RBC (3.80-5.40) m/uL Hgb (11.4-16.0) gm/dL Hct (34.0-46.0) % RDW (11.5-15.5) % Sodium (137-145) mmol/L Glucose (74-99) mg/dL POC Glucose (mg/dL) 139 H (75-99) mg/dL Hemoglobin A1c (4.0-6.0) % Microbiology - Last 24 Hours (Table) 11/19/18 04:07 Blood Culture - Preliminary Blood No Growth after 48 hours Assessment and Plan (1) Atrial fibrillation with RVR Current Visit: Yes Status: Acute Code(s): I48.91 - UNSPECIFIED ATRIAL FIBRILLATION SNOMED Code(s): 686980265816937 (2) Community acquired pneumonia Current Visit: Yes Status: Acute Code(s): J18.9 - PNEUMONIA, UNSPECIFIED ORGANISM SNOMED Code(s): 663598703 (3) CAD (coronary artery disease) Current Visit: No Status: Acute Code(s): I25.10 - ATHSCL HEART DISEASE OF [place] CORONARY ARTERY W/O ANG PCTRS SNOMED Code(s): 36040470 Plan: Change IV Cardizem to by mouth Cardizem. Continue rest of the medication, patient may be transferred to telemetry
[2018-11-21] MEDS: NON FORMULARY DRUG (Glucosam/Chon-Msm1/C/Mang/Bosw [Glucosamine-Chondroitin Tablet] 1 TAB) PO SCH (09:16)
--- NOTE | 2018-11-21 09:19 | P.PN ---
Subjective Principal diagnosis: Atrial fibrillation with RVR This is a continue present a 78-year-old white female with known history of atrial fibrillation with rapid ventricular response who has also element of shingles on the right lower quadrant abdominal area. She is resting more comfortably this morning. No significant chest pressure or shortness of breath. No voiding difficulties otherwise stated. She still has significant rapid ventricular response. 11/21 The patient continues to improve. HR is now controlled. NO side effects from medication stated Objective - Vital Signs Vital signs: Vital Signs Temp 98.4 F 11/21/18 04:00 Pulse 81 11/21/18 08:00 Resp 21 11/21/18 08:00 BP 104/62 11/21/18 08:00 Pulse Ox 97 11/21/18 08:00 Intake & Output 11/20/18 11/21/18 11/21/18 18:59 06:59 18:59 Intake Total 372.833 61.167 20 Output Total 400 Balance 372.833 -338.833 20 Weight 135 kg Intake: IV 240 20 0.9 240 20 Intake, IV Titration 132.833 61.167 Amount Diltiazem 125 mg In 132.833 61.167 Sodium Chloride 0.9% 100 ml @ Per Protocol IV .Q0M [facility] Rx#:[id number] Output: Urine 400 Other: Voiding Method Bedside Commode Bedside Commode # Voids 1 1 # Bowel Movements 1 - Constitutional General appearance: Present: obese - EENT Eyes: Absent: abnormal pupil - Respiratory Respiratory: bilateral: diminished - Cardiovascular Rhythm: regular Heart sounds: normal: S1, S2 Abnormal Heart Sounds: Absent: S3 Gallop - Gastrointestinal General gastrointestinal: Present: soft. Absent: tenderness - Psychiatric Psychiatric: Present: A&O x's 3 - Labs CBC & Chem 7: 11/21/18 04:50 11/21/18 04:50 Labs: Abnormal Lab Results - Last 24 Hours (Table) 11/19/18 11/20/18 11/20/18 Range/Units 00:22 12:31 16:57 RBC (3.80-5.40) m/uL Hgb (11.4-16.0) gm/dL Hct (34.0-46.0) % RDW (11.5-15.5) % Sodium (137-145) mmol/L Glucose (74-99) mg/dL POC Glucose (mg/dL) 183 H 201 H (75-99) mg/dL Hemoglobin A1c 8.3 H (4.0-6.0) % 11/20/18 11/21/18 11/21/18 Range/Units 20:55 04:50 04:50 RBC 3.78 L (3.80-5.40) m/uL Hgb 10.6 L (11.4-16.0) gm/dL Hct 33.0 L (34.0-46.0) % RDW 16.0 H (11.5-15.5) % Sodium 135 L (137-145) mmol/L Glucose 148 H (74-99) mg/dL POC Glucose (mg/dL) 182 H (75-99) mg/dL Hemoglobin A1c (4.0-6.0) % 11/21/18 Range/Units 06:13 RBC (3.80-5.40) m/uL Hgb (11.4-16.0) gm/dL Hct (34.0-46.0) % RDW (11.5-15.5) % Sodium (137-145) mmol/L Glucose (74-99) mg/dL POC Glucose (mg/dL) 139 H (75-99) mg/dL Hemoglobin A1c (4.0-6.0) % Microbiology - Last 24 Hours (Table) 11/19/18 04:07 Blood Culture - Preliminary Blood No Growth after 48 hours Assessment and Plan (1) Atrial fibrillation with RVR Current Visit: Yes Status: Acute Code(s): I48.91 - UNSPECIFIED ATRIAL FIBRIL LATION SNOMED Code(s): 024408787254162 (2) Community acquired pneumonia Current Visit: Yes Status: Acute Code(s): J18.9 - PNEUMONIA, UNSPECIFIED ORGANISM SNOMED Code(s): 486918766 (3) Diabetes Current Visit: No Status: Acute Code(s): E11.9 - TYPE 2 DIABETES MELLITUS WITHOUT COMPLICATIONS SNOMED Code(s): 95705620 (4) Elevated troponin Current Visit: No Status: Acute Code(s): R74.8 - ABNORMAL LEVELS OF OTHER SERUM ENZYMES SNOMED Code(s): 090433120 (5) Generalized weakness Current Visit: No Status: Acute Code(s): R53.1 - WEAKNESS SNOMED Code(s): 25948769 Plan: We will continue current regimen of treatment with Cardizem. Hopefully we can wean off the IV medication. Appreciate cardiology input. Check CBC and CMP in a.m. Anticipate transfer from ICU soon Time with Patient: Less than 30
[2018-11-21] MEDS: CLOTRIMAZOLE 1% CREAM 15 GM TUBE TOPICAL SCH (09:20)
[2018-11-21] MEDS: AMIODARONE 200 MG TAB PO SCH ×3 (09:20→21:59)
[2018-11-21] MEDS: DILTIAZEM ORAL 30 MG TAB PO SCH ×3 (09:20→21:58)
[2018-11-21] MEDS: APIXABAN 5 MG TAB PO SCH ×2 (09:20→21:59)
[2018-11-21] MEDS: FOLIC ACID 1 MG TAB PO SCH (09:21)
[2018-11-21] MEDS: LEFLUNOMIDE 20 MG TAB PO SCH (09:21)
[2018-11-21] MEDS: MULTIVITAMINS, THERA 1 EACH TAB PO SCH (09:22)
[2018-11-21] MEDS: METOPROLOL TARTRATE 50 MG TAB PO SCH ×3 (09:22→22:00)
[2018-11-21] MEDS: PILOCARPINE 5 MG TAB PO SCH ×3 (09:23→22:00)
[2018-11-21] MEDS: OXYBUTYNIN 10 MG TAB.ER.24 PO SCH (09:23)
[2018-11-21] MEDS: predniSONE 1 MG TAB PO SCH (09:24)
[2018-11-21] MEDS: LEVOFLOXACIN 500 MG TAB PO SCH (09:24)
[2018-11-21] MEDS: valACYclovir HCL 1,000 MG TABLET PO SCH ×2 (09:24→21:59)
[2018-11-21] MEDS: NEURONTIN 800 MG PO SCH ×4 (10:22→21:58)
--- NOTE | 2018-11-21 10:29 | XR ---
EXAMINATION TYPE: XR chest 1V portable DATE OF EXAM: 11/21/2018 CLINICAL HISTORY: Pneumonia progress study. TECHNIQUE: Single AP portable upright view of the chest is obtained. COMPARISON: Chest x-ray from 2 days earlier FINDINGS: Marked interval improvement in right upper lobe infiltrate with air bronchograms. No new f ocal airspace opacity, pleural effusion, or pneumothorax as noted bilaterally. Elevated right hemidia phragm. Cardiac silhouette size is stable and enlarged with atherosclerotic aorta. Partial visualizat ion of surgical change lower cervical spine. IMPRESSION: Resolution/near-complete resolution of right upper lobe pneumonic infiltrate. No new infi ltrate is seen.
[2018-11-21 11:46] LABS: Glucose,Whole Blood 227 mg/dL (75-99)
[2018-11-21 17:12] LABS: Glucose,Whole Blood 219 mg/dL (75-99)
[2018-11-21 21:44] LABS: Glucose,Whole Blood 273 mg/dL (75-99)
[2018-11-21] MEDS: ATORVASTATIN 20 MG TAB PO SCH (21:59)
[2018-11-21] MEDS: hydrOXYzine HCL 25 MG TAB PO SCH (22:01)
[2018-11-21] MEDS: LATANOPROST 0.005% OPHTH DROPS 2.5 ML BTL BOTH EYES SCH (22:01)
[2018-11-21] MEDS: PANTOPRAZOLE 40 MG TABLET PO SCH (22:02)
[2018-11-22 05:27] LABS: Anisocytosis Slight; Basophils # (A) 0.1 k/uL (0-0.2); Basophils % (A) 1 %; Eosinophils # (A) 0.1 k/uL (0-0.7); Eosinophils % (A) 2 %; HCT 31.8 % (34.0-46.0); HGB 10.4 gm/dL (11.4-16.0); Hypochromasia Slight; Lymphocytes % (A) 38 %; MCH 28.8 pg (25.0-35.0); MCHC 32.7 g/dL (31.0-37.0); MCV 88.4 fL (80.0-100.0); Mean Platelet Volume 7.6; Monocytes # (A) 0.3 k/uL (0-1.0); Monocytes % (A) 6 %; Neutrophils # (A) 2.6 k/uL (1.3-7.7); Neutrophils % (A) 49 %; Platelet Count 161 k/uL (150-450); RBC 3.59 m/uL (3.80-5.40); RDW 18.4 % (11.5-15.5); WBC 5.3 k/uL (3.8-10.6)
[2018-11-22 05:37] LABS: African American GFR (CKD) >90 (>60 ml/min/1.73 sqM); Anion Gap 8 mmol/L; Blood Urea Nitrogen 11 mg/dL (7-17); Calcium 8.4 mg/dL (8.4-10.2); Carbon Dioxide 25 mmol/L (22-30); Chloride 101 mmol/L (98-107); Glucose 204 mg/dL (74-99); Potassium 3.5 mmol/L (3.5-5.1); Sodium 134 mmol/L (137-145)
[2018-11-22] MEDS: MORPHINE SULFATE 4 MG/ML SYRINGE IV PRN ×5 (06:00→21:15)
[2018-11-22] MEDS ORDERED: Potassium Replacement Protocol 1 EACH MISC MISCELLANE PRN (06:05)
[2018-11-22] MEDS: INSULIN ASPART (NovoLOG) 100 UNIT/ML VIAL SQ SCH ×4 (06:50→21:12)
[2018-11-22] MEDS: LEVOTHYROXINE 112 MCG TAB PO SCH (06:50)
[2018-11-22 06:59] LABS: Glucose,Whole Blood 198 mg/dL (75-99)
[2018-11-22] MEDS: APIXABAN 5 MG TAB PO SCH ×2 (09:20→21:11)
[2018-11-22] MEDS: CLOTRIMAZOLE 1% CREAM 15 GM TUBE TOPICAL SCH (09:20)
[2018-11-22] MEDS: FOLIC ACID 1 MG TAB PO SCH (09:20)
[2018-11-22] MEDS: NON FORMULARY DRUG (Glucosam/Chon-Msm1/C/Mang/Bosw [Glucosamine-Chondroitin Tablet] 1 TAB) PO SCH (09:27)
--- NOTE | 2018-11-22 09:29 | P.PN ---
Subjective Progress Note Date: 11/22/18 This patient is being treated for pneumonia and also atrial fibrillation with rapid ventricular response. She is off amiodarone drip. I'm going to start her on by mouth amiodarone. I also increase the dose of the metoprolol. If heart rate is well controlled, will discontinue IV Cardizem tomorrow. She is getting IV antibiotics. Overall she seemed to be stable. She is also being treated for shingles. Lungs appeared to be relatively clear. Heart is irregular. 11/21/2018: This patient is admitted to the hospital with pneumonia atrial fibrillation with rapid ventricular response. Patient required multiple medications and control the heart rate. Currently she is on amiodarone and also IV Cardizem and Lopressor. I'm going to discontinue IV Cardizem and start her on by mouth Cardizem. Patient is otherwise doing well. She is also being treated for herpes Josten. Continue current medical therapy. Patient could be transferred to telemetry unit. 11/22/2018: This patient seemed to be clinically stable. Doesn't appear to be in acute distress. Her chest x-ray showed complete resolution of the pneumonia. Heart heart rate is well controlled and in fact sometimes his bradycardic. We will cut back the dose of the amiodarone to 200 mg by mouth twice a day. Continue rest of the medications. Increase activity. Also to stepdown unit. Consider discharge within next 24 hours Objective - Vital Signs Vital signs: Vital Signs Temp 98.0 F 11/22/18 04:00 Pulse 89 11/22/18 06:00 Resp 14 11/22/18 06:00 BP 146/68 11/22/18 06:00 Pulse Ox 94 L 11/22/18 04:00 Intake & Output 11/21/18 11/22/18 11/22/18 18:59 06:59 18:59 Intake Total 280 Balance 280 Weight 134.8 kg Intake: IV 20 0.9 20 Oral 260 Other: Voiding Method Bedside Commode Bedside Commode # Voids 1 2 - Exam GENERAL EXAM: Patient is alert and oriented and doesn't appear to be in any acute distress HEENT: Normocephalic. Normal reaction of pupils, equal size, normal range of extraocular motion. No erythema or exudates in the throat. NECK: No masses, no nuchal rigidity. CHEST: No chest wall deformity. LUNGS: Diminished breath sounds HEART: S1 and S2 normal with no audible mumurs or gallops. Regular rhythm, femorals equal on both sides.. ABDOMEN: No hepatosplenomegaly, normal bowel sounds, no guarding or rigidity. SKIN: No rashes CENTRAL NERVOUS SYSTEM: No focal deficits. EXTREMITIES: No cyanosis, clubbing or edema. - Labs CBC & Chem 7: 11/22/18 05:16 11/22/18 05:16 Labs: Abnormal Lab Results - Last 24 Hours (Table) 11/21/18 11/21/18 11/21/18 Range/Units 11:35 17:00 21:32 RBC (3.80-5.40) m/uL Hgb (11.4-16.0) gm/dL Hct (34.0-46.0) % RDW (11.5-15.5) % Sodium (137-145) mmol/L Glucose (74-99) mg/dL POC Glucose (mg/dL) 227 H 219 H 273 H (75-99) mg/dL 11/22/18 11/22/18 11/22/18 Range/Units 05:16 05:16 06:48 RBC 3.59 L (3.80-5.40) m/uL Hgb 10.4 L (11.4-16.0) gm/dL Hct 31.8 L (34.0-46.0) % RDW 18.4 H (11.5-15.5) % Sodium 134 L (137-145) mmol/L Glucose 204 H (74-99) mg/dL POC Glucose (mg/dL) 198 H (75-99) mg/dL Microbiology - Last 24 Hours (Table) 11/19/18 04:07 Blood Culture - Preliminary Blood No Growth after 72 hours Assessment and Plan (1) Atrial fibrillation with RVR Current Visit: Yes Status: Acute Code(s): I48.91 - UNSPECIFIED ATRIAL FIBRILLATION SNOMED Code(s): 091643896373990 (2) Community acquired pneumonia Current Visit: Yes Status: Acute Code(s): J18.9 - PNEUMONIA, UNSPECIFIED ORGANISM SNOMED Code(s): 503695660 (3) CAD (coronary artery disease) Current Visit: No Status: Acute Code(s): I25.10 - ATHSCL HEART DISEASE OF [place] CORONARY ARTERY W/O ANG PCTRS SNOMED Code(s): 25211831 Plan: Patient's heart rate is well controlled. Sometimes his becoming bradycardic. Will cut back the dose of the amiodarone to 200 mg by mouth twice a day. Increase activity. Possible discharge within next 24 hours
[2018-11-22] MEDS: METOPROLOL TARTRATE 50 MG TAB PO SCH ×3 (09:51→21:14)
[2018-11-22] MEDS: NEURONTIN 800 MG PO SCH ×4 (09:51→21:13)
[2018-11-22] MEDS: valACYclovir HCL 1,000 MG TABLET PO SCH ×2 (09:51→21:13)
[2018-11-22] MEDS: LEFLUNOMIDE 20 MG TAB PO SCH (09:52)
[2018-11-22] MEDS: AMIODARONE 200 MG TAB PO SCH ×2 (09:52→21:11)
[2018-11-22] MEDS: LEVOFLOXACIN 500 MG TAB PO SCH (09:52)
[2018-11-22] MEDS: PILOCARPINE 5 MG TAB PO SCH ×3 (09:52→21:14)
[2018-11-22] MEDS: MULTIVITAMINS, THERA 1 EACH TAB PO SCH (09:52)
[2018-11-22] MEDS: OXYBUTYNIN 10 MG TAB.ER.24 PO SCH (09:52)
[2018-11-22] MEDS: DILTIAZEM ORAL 30 MG TAB PO SCH ×3 (09:52→21:14)
[2018-11-22] MEDS: POTASSIUM CHLORIDE ER 20 MEQ TAB.ER PO SCH ×2 (09:53→11:47)
[2018-11-22] MEDS: predniSONE 1 MG TAB PO SCH (09:53)
[2018-11-22 11:44] LABS: Glucose,Whole Blood 211 mg/dL (75-99)
--- NOTE | 2018-11-22 14:52 | CDI ---
Non Stemi ruled out Documentation Clarification Form Date: 11/22/2018 2:36:41 PM From: Lauren King Phone: '[phone] Admit Date: 11/19/2018 4:31:00 AM Patient Name: Rosalva Lr Visit Number: [id number] Discharge Date: ATTENTION: The Clinical Documentation Specialists (CDI) and [facility] Coding Staff appreciate your assistance in clarifying documentation. Please respond to the clarification below the line at the bottom and electronically sign. The CDI & [facility] Coding staff will review the response and follow-up if needed. Please note: Queries are made part of the Legal Health Record. If you have any questions, please contact the author of this message via ITS. Dr. Akua Gillette, Troponin mildly elevated this is likely a type II in STEMI secondary to tachycardia History/Risk Factors: 78-year-old female presents to the ED via EMS for shortness of breath. Medical History of Atrial Fibrillation; Cancer; DM2; HTN; Renal Disease; Clinical Indicators: Lab findings: Troponin 0.056 EKG Atrial fibrillation with RVR with premature ventricular or aberrantly conducted complexes. Possible Anterior Infarct, age determined. . Marked ST abnormality possible inferior subendocardial injury. Vital Signs: 159/143 173 97.9 30 93% ra Treatment: ICU admit , Amiodarone ivpb ; Amiodarone hcl po 200mg bid , Cardizem ivpb Consults: Cardiology Consult In your professional opinion, can you please clarify If NSTEMI Type II secondary to tachycardia? * NSTEMI Type II secondary to tachycardia * NSTEMI (please specify type) * NSTEMI Ruled Out * Other, please specify * Unable to determine (Last Revision: May 2017) MTDD
[2018-11-22 16:40] LABS: Glucose,Whole Blood 237 mg/dL (75-99)
[2018-11-22 16:55] VITALS: PULSE 83
--- NOTE | 2018-11-22 20:42 | P.PN ---
Subjective Principal diagnosis: Atrial fibrillation with RVR This is a continue present a 78-year-old white female with known history of atrial fibrillation with rapid ventricular response who has also element of shingles on the right lower quadrant abdominal area. She is resting more comfortably this morning. No significant chest pressure or shortness of breath. No voiding difficulties otherwise stated. She still has significant rapid ventricular response. 11/21 The patient continues to improve. HR is now controlled. NO side effects from medication stated. 11/22. Heart rate seems nomina I anticipate transfer to general medical floor today. Objective - Vital Signs Vital signs: Vital Signs Temp 98.2 F 11/22/18 16:00 Pulse 83 11/22/18 16:00 Resp 17 11/22/18 16:00 BP 125/88 11/22/18 16:00 Pulse Ox 94 L 11/22/18 16:00 Intake & Output 11/22/18 11/22/18 11/23/18 06:59 18:59 06:59 Intake Total 200 Balance 200 Weight 134.8 kg Intake: Oral 200 Other: Voiding Method Bedside Commode Bedside Commode # Voids 2 2 - Constitutional General appearance: Present: morbidly obese - EENT Eyes: Absent: abnormal pupil - Neck Neck: Present: lymphadenopathy - Respiratory Respiratory: bilateral: diminished - Cardiovascular Rhythm: irregularly irregular Heart sounds: normal: S1, S2 Abnormal Heart Sounds: Absent: S3 Gallop - Gastrointestinal Gastrointestinal Comment(s): There is right lower quadrant tenderness related to shingles General gastrointestinal: Present: soft. Absent: tenderness - Psychiatric Psychiatric: Present: A&O x's 3, appropriate affect - Labs CBC & Chem 7: 11/22/18 05:16 11/22/18 05:16 Labs: Abnormal Lab Results - Last 24 Hours (Table) 11/21/18 11/22/18 11/22/18 Range/Units 21:32 05:16 05:16 RBC 3.59 L (3.80-5.40) m/uL Hgb 10.4 L (11.4-16.0) gm/dL Hct 31.8 L (34.0-46.0) % RDW 18.4 H (11.5-15.5) % Sodium 134 L (137-145) mmol/L Glucose 204 H (74-99) mg/dL POC Glucose (mg/dL) 273 H (75-99) mg/dL 11/22/18 11/22/18 11/22/18 Range/Units 06:48 11:33 16:29 RBC (3.80-5.40) m/uL Hgb (11.4-16.0) gm/dL Hct (34.0-46.0) % RDW (11.5-15.5) % Sodium (137-145) mmol/L Glucose (74-99) mg/dL POC Glucose (mg/dL) 198 H 211 H 237 H (75-99) mg/dL Microbiology - Last 24 Hours (Table) 11/19/18 04:07 Blood Culture - Preliminary Blood No Growth after 72 hours Assessment and Plan (1) Atrial fibrillation with RVR Current Visit: Yes Status: Acute Code(s): I48.91 - UNSPECIFIED ATRIAL FIBRILLATION SNOMED Code(s): 061706766342929 (2) Community acquired pneumonia Current Visit: Yes Status: Acute Code(s): J18.9 - PNEUMONIA, UNSPECIFIED ORGANISM SNOMED Code(s): 233694549 (3) Diabetes Current Visit: No Status: Acute Code(s): E11.9 - TYPE 2 DIABETES MELLITUS W ITHOUT COMPLICATIONS SNOMED Code(s): 23352516 (4) Elevated troponin Current Visit: No Status: Acute Code(s): R74.8 - ABNORMAL LEVELS OF OTHER SERUM ENZYMES SNOMED Code(s): 251356420 (5) Generalized weakness Current Visit: No Status: Acute Code(s): R53.1 - WEAKNESS SNOMED Code(s): 82558109 Plan: We will continue current regimen of treatment with Cardizem. Hopefully we can wean off the IV medication. Appreciate cardiology input. Check CBC and CMP in a.m. Anticipate transfer from ICU Today Time with Patient: Greater than 30
[2018-11-22 21:08] LABS: Glucose,Whole Blood 230 mg/dL (75-99)
[2018-11-22] MEDS: ATORVASTATIN 20 MG TAB PO SCH (21:11)
[2018-11-22] MEDS: LATANOPROST 0.005% OPHTH DROPS 2.5 ML BTL BOTH EYES SCH (21:12)
[2018-11-22] MEDS: hydrOXYzine HCL 25 MG TAB PO SCH (21:12)
[2018-11-22] MEDS: PANTOPRAZOLE 40 MG TABLET PO SCH (21:13)
[2018-11-23 01:05] VITALS: RESP 18
[2018-11-23] MEDS: MORPHINE SULFATE 4 MG/ML SYRINGE IV PRN ×3 (01:30→10:10)
[2018-11-23] MEDS: LEVOTHYROXINE 112 MCG TAB PO SCH (06:25)
[2018-11-23 06:51] LABS: Glucose,Whole Blood 219 mg/dL (75-99)
[2018-11-23] MEDS: INSULIN ASPART (NovoLOG) 100 UNIT/ML VIAL SQ SCH ×2 (07:28→12:05)
--- NOTE | 2018-11-23 09:19 | P.DS ---
Providers Date of admission: 11/19/18 04:31 Expected date of discharge: 11/23/18 Attending physician: Nicholas Hart Consults: 11/19/18 04:28 Consult Physician Stat Consulting Provider: Akua Gillette Consult Reason/Comments: RVR Do you want consulting provider notified?: Already Contacted Primary care physician: Nicholas Hart - Discharge Diagnosis(es) (1) Atrial fibrillation with RVR Current Visit: Yes Status: Acute (2) Community acquired pneumonia Current Visit: Yes Status: Acute (3) Diabetes Current Visit: No Status: Acute (4) Elevated troponin Current Visit: No Status: Acute (5) Generalized weakness Current Visit: No Status: Acute Hospital Course: This discharge summary 78-year-old white female essentially admitted for atrial fibrillation left ventricular response. Cardiology was consulted and amiodarone and Cardizem was instituted and the patient was stabilized. The patient did develop varicella-zoster of the right lower quadrant area and she is start Valtrex. The patient is discharged once cleared by cardiology follow-up with me in about one week Patient Condition at Discharge: Serious Plan - Discharge Summary Discharge Rx Participant: No New Discharge Prescriptions: New Diltiazem Oral [Cardizem*] 90 mg PO TID #90 tab Amiodarone [Cordarone] 200 mg PO BID #60 tab Levofloxacin [Levaquin] 500 mg PO DAILY #7 tab valACYclovir HCL [Valtrex] 1,000 mg PO BID #10 tablet Continue Gabapentin [Neurontin] 1,200 mg PO TID Lansoprazole [Prevacid] 15 mg PO HS hydrOXYzine HCL [Atarax] 50 mg PO HS Folic Acid 1 mg PO DAILY Latanoprost [Xalatan 0.005%] 1 drop BOTH EYES HS Levothyroxine Sodium [Synthroid] 224 mcg PO DAILY metFORMIN HCL [Glucophage] 1,000 mg PO AC-BID@1200,1700 Pilocarpine HCl [Salagen] 7.5 mg PO TID Nitroglycerin Sl Tabs [Nitrostat] 0.4 mg SUBLINGUAL Q5M PRN #30 tab PRN Reason: Chest Pain Apixaban [Eliquis] 5 mg PO BID #60 tab Insulin Degludec [Tresiba] 46 units SQ DAILY HYDROcodone/APAP 10-325MG [[place] 10-325] 1 tab PO Q6HR PRN PRN Reason: Pain Adalimumab [Humira Pediatric Crohn's] 40 mg SQ WE Furosemide [Lasix] 40 mg PO DAILY Insulin Lispro [humaLOG Kwikpen] See Protocol SQ AC-TID Tolterodine Tartrate [Detrol LA] 4 mg PO DAILY Gabapentin 1,600 mg PO HS Leflunomide 20 mg PO DAILY Methocarbamol [Robaxin] 750 mg PO TID predniSONE 4 mg PO DAILY methylPREDNISolone Dose Pack [Medrol Dose Pack] See Taper PO DIRECTED tiZANidine [Zanaflex] 4 - 8 mg PO HS PRN PRN Reason: Muscle Spasm Aspirin EC [Ecotrin] 325 mg PO DAILY Calcium Carbonate/Vitamin D3 [Calcium 500-Vit D3 200 Tablet] 1 tab PO BID Clotrimazole [Lotrimin AF] 1 applic TOPICAL DAILY Cyclobenzaprine [Flexeril] 10 mg PO BID Glucosam/Cristian-Msm1/C/Finn/Bosw [Glucosamine-Chondroitin Tablet] 1 tab PO DAILY Metoprolol Tartrate [Lopressor] 50 mg PO BID Multivitamins, Thera [Multivitamin (formulary)] 1 tab PO DAILY Rosuvastatin [Crestor] 10 mg PO HS Discontinued Verapamil Sr [Isoptin Sr] 240 mg PO DAILY #30 tablet.er Discharge Medication List Gabapentin [Neurontin] 1,200 mg PO TID 02/27/14 [History] Lansoprazole [Prevacid] 15 mg PO HS 02/27/14 [History] hydrOXYzine HCL [Atarax] 50 mg PO HS 04/12/16 [History] Folic Acid 1 mg PO DAILY 08/13/16 [History] Latanoprost [Xalatan 0.005%] 1 drop BOTH EYES HS 08/11/17 [History] Levothyroxine Sodium [Synthroid] 224 mcg PO DAILY 08/11/17 [History] Pilocarpine HCl [Salagen] 7.5 mg PO TID 08/11/17 [History] metFORMIN HCL [Glucophage] 1,000 mg PO AC-BID@1200,1700 08/11/17 [History] Nitroglycerin Sl Tabs [Nitrostat] 0.4 mg SUBLINGUAL Q5M PRN #30 tab 08/13/17 [Rx] Apixaban [Eliquis] 5 mg PO BID #60 tab 08/30/17 [Rx] Adalimumab [Humira Pediatric Crohn's] 40 mg SQ WE 09/25/18 [History] Furosemide [Lasix] 40 mg PO DAILY 09/25/18 [History] HYDROcodone/APAP 10-325MG [[place] 10-325] 1 tab PO Q6HR PRN 09/25/18 [History] Insulin Degludec [Tresiba] 46 units SQ DAILY 09/25/18 [History] Insulin Lispro [humaLOG Kwikpen] See Protocol SQ AC-TID 09/25/18 [History] Tolterodine Tartrate [Detrol LA] 4 mg PO DAILY 09/25/18 [History] Gabapentin 1,600 mg PO HS 11/14/18 [History] Leflunomide 20 mg PO DAILY 11/14/18 [History] Methocarbamol [Robaxin] 750 mg PO TID 11/14/18 [History] methylPREDNISolone Dose Pack [Medrol Dose Pack] See Taper PO DIRECTED 11/14/18 [History] predniSONE 4 mg PO DAILY 11/14/18 [History] tiZANidine [Zanaflex] 4 - 8 mg PO HS PRN 11/15/18 [History] Aspirin EC [Ecotrin] 325 mg PO DAILY 11/19/18 [History] Calcium Carbonate/Vitamin D3 [Calcium 500-Vit D3 200 Tablet] 1 tab PO BID 11/19/18 [History] Clotrimazole [Lotrimin AF] 1 applic TOPICAL DAILY 11/19/18 [History] Cyclobenzaprine [Flexeril] 10 mg PO BID 11/19/18 [History] Glucosam/Cristian-Msm1/C/Finn/Bosw [Glucosamine-Chondroitin Tablet] 1 tab PO DAILY 11/19/18 [History] Metoprolol Tartrate [Lopressor] 50 mg PO BID 11/19/18 [History] Multivitamins, Thera [Multivitamin (formulary)] 1 tab PO DAILY 11/19/18 [History] Rosuvastatin [Crestor] 10 mg PO HS 11/19/18 [History] Amiodarone [Cordarone] 200 mg PO BID #60 tab 11/23/18 [Rx] Diltiazem Oral [Cardizem*] 90 mg PO TID #90 tab 11/23/18 [Rx] Levofloxacin [Levaquin] 500 mg PO DAILY #7 tab 11/23/18 [Rx] valACYclovir HCL [Valtrex] 1,000 mg PO BID #10 tablet 11/23/18 [Rx] Follow up Appointment(s)/Referral(s): [facility] Visiting Nurse, [NON-STAFF] - 1-2 Days Nicholas Hart MD [Primary Care Provider] - 3 Days
[2018-11-23] MEDS: METOPROLOL TARTRATE 50 MG TAB PO SCH (10:10)
[2018-11-23] MEDS: LEVOFLOXACIN 500 MG TAB PO SCH (10:10)
[2018-11-23] MEDS: CLOTRIMAZOLE 1% CREAM 15 GM TUBE TOPICAL SCH (10:10)
[2018-11-23] MEDS: DILTIAZEM ORAL 30 MG TAB PO SCH (10:10)
[2018-11-23] MEDS: AMIODARONE 200 MG TAB PO SCH (10:10)
[2018-11-23] MEDS: APIXABAN 5 MG TAB PO SCH (10:10)
[2018-11-23] MEDS: FOLIC ACID 1 MG TAB PO SCH (10:10)
[2018-11-23] MEDS: MULTIVITAMINS, THERA 1 EACH TAB PO SCH (10:10)
[2018-11-23] MEDS: NEURONTIN 800 MG PO SCH (10:10)
[2018-11-23 11:02] VITALS: BP 167/64; TEMP 97.7
[2018-11-23] MEDS: NON FORMULARY DRUG (Glucosam/Chon-Msm1/C/Mang/Bosw [Glucosamine-Chondroitin Tablet] 1 TAB) PO SCH (11:56)
[2018-11-23 11:58] LABS: Glucose,Whole Blood 292 mg/dL (75-99)
[2018-11-23] MEDS: PILOCARPINE 5 MG TAB PO SCH (11:58)
[2018-11-23] MEDS: valACYclovir HCL 1,000 MG TABLET PO SCH (11:58)
[2018-11-23] MEDS: LEFLUNOMIDE 20 MG TAB PO SCH (11:58)
[2018-11-23] MEDS: OXYBUTYNIN 10 MG TAB.ER.24 PO SCH (11:58)
[2018-11-23] MEDS: predniSONE 1 MG TAB PO SCH (11:58)
--- NOTE | 2018-11-23 17:27 | P.PN ---
Subjective Progress Note Date: 11/23/18 This patient is being treated for pneumonia and also atrial fibrillation with rapid ventricular response. She is off amiodarone drip. I'm going to start her on by mouth amiodarone. I also increase the dose of the metoprolol. If heart rate is well controlled, will discontinue IV Cardizem tomorrow. She is getting IV antibiotics. Overall she seemed to be stable. She is also being treated for shingles. Lungs appeared to be relatively clear. Heart is irregular. 11/21/2018: This patient is admitted to the hospital with pneumonia atrial fibrillation with rapid ventricular response. Patient required multiple medications and control the heart rate. Currently she is on amiodarone and also IV Cardizem and Lopressor. I'm going to discontinue IV Cardizem and start her on by mouth Cardizem. Patient is otherwise doing well. She is also being treated for herpes Josten. Continue current medical therapy. Patient could be transferred to telemetry unit. 11/22/2018: This patient seemed to be clinically stable. Doesn't appear to be in acute distress. Her chest x-ray showed complete resolution of the pneumonia. Heart heart rate is well controlled and in fact sometimes his bradycardic. We will cut back the dose of the amiodarone to 200 mg by mouth twice a day. Continue rest of the medications. Increase activity. Also to stepdown unit. Consider discharge within next 24 hours. 11/23/2018: This patient is admitted with atypical fibrillation of the Event corresponds and also pneumonia. Patient also has had with zoster. Her heart rate is well controlled. Chest x-ray showed clearing of pneumonia. Patient is otherwise clinically stable. Being discharged home today. Follow-up in the office Objective - Vital Signs Vital signs: Vital Signs Temp 97.7 F 11/23/18 08:00 Pulse 83 11/22/18 16:00 Resp 18 11/23/18 08:00 BP 167/64 11/23/18 08:00 Pulse Ox 94 L 11/23/18 08:00 Intake & Output 11/22/18 11/23/18 11/23/18 18:59 06:59 18:59 Intake Total 200 1160 Output Total 800 1100 Balance 200 -800 60 Weight 134.8 kg Intake: Oral 200 1160 Output: Urine 800 1100 Other: Voiding Method Bedside Commode Toilet Toilet # Voids 2 1 - Exam GENERAL EXAM: Patient is alert and oriented and doesn't appear to be in any acute distress HEENT: Normocephalic. Normal reaction of pupils, equal size, normal range of extraocular motion. No erythema or exudates in the throat. NECK: No masses, no nuchal rigidity. CHEST: No chest wall deformity. LUNGS: Diminished breath sounds HEART: S1 and S2 normal with no audible mumurs or gallops. Regular rhythm, femorals equal on both sides.. ABDOMEN: No hepatosplenomegaly, normal bowel sounds, no guarding or rigidity. SKIN: No rashes CENTRAL NERVOUS SYSTEM: No focal deficits. EXTREMITIES: No cyanosis, clubbing or edema. - Labs CBC & Chem 7: 11/22/18 05:16 11/22/18 05:16 Labs: Abnormal Lab Results - Last 24 Hours (Table) 11/22/18 11/23/18 11/23/18 Range/Units 21:07 06:32 11:37 POC Glucose (mg/dL) 230 H 219 H 292 H (75-99) mg/dL Microbiology - Last 24 Hours (Table) 11/19/18 04:07 Blood Culture - Preliminary Blood No Growth after 96 hours Assessment and Plan (1) Atrial fibrillation with RVR Status: Acute Code(s): I48.91 - UNSPECIFIED ATRIAL FIBRILLATION SNOMED Code(s): 938601478803396 (2) Community acquired pneumonia Status: Acute Code(s): J18.9 - PNEUMONIA, UNSPECIFIED ORGANISM SNOMED Code(s): 261829258 (3) CAD (coronary artery disease) Status: Acute Code(s): I25.10 - ATHSCL HEART DISEASE OF [place] CORONARY ARTERY W/O ANG PCTRS SNOMED Code(s): 75068653 Plan: Patient is clinically stable. Will cut back the dose of the amiodarone to 200 mg daily. She'll continue the Cardizem and beta kathi. Follow-up in the office in one week
[2018-11-24] MEDS ORDERED: AMIODARONE 200 MG TAB PO SCH (09:00)
== END 2018-11-23 12:57 | disposition home health service (06) | DRG 308 ==
LOC: EC 00:14 → 2SICU 04:31 → 3SCARD 11-22 18:49
PROVIDERS: ADMIT Family Medicine; ATTEND Family Medicine
DX: I48.91 Unspecified atrial fibrillation (principal); J18.9 Pneumonia, unspecified organism; K50.90 Crohn's disease, unspecified, without complications; B02.9 Zoster without complications; E11.9 Type 2 diabetes mellitus without complications; R79.89 Other specified abnormal findings of blood chemistry; I25.10 Atherosclerotic heart disease of native coronary artery without angina pectoris; R00.1 Bradycardia, unspecified; Z96.1 Presence of intraocular lens; E03.9 Hypothyroidism, unspecified; E78.5 Hyperlipidemia, unspecified; I10 Essential (primary) hypertension; M06.9 Rheumatoid arthritis, unspecified; M35.00 Sjogren syndrome, unspecified; Z79.01 Long term (current) use of anticoagulants; Z79.4 Long term (current) use of insulin; Z79.82 Long term (current) use of aspirin; Z79.890 Hormone replacement therapy; Z79.899 Other long term (current) drug therapy; Z85.820 Personal history of malignant melanoma of skin; Z87.891 Personal history of nicotine dependence; Z88.1 Allergy status to other antibiotic agents; Z88.2 Allergy status to sulfonamides; Z91.048 Other nonmedicinal substance allergy status; Z91.09 Other allergy status, other than to drugs and biological substances; Z98.42 Cataract extraction status, left eye; Z98.41 Cataract extraction status, right eye
CPT/HCPCS: 36415; 71045; 80048; 80053; 83036; 83605; 83735; 83880; 84484; 85025; 85610; 85730; 87040; 93005; 96365; 96366; 96367; 96375; 96376; 99291

== ENCOUNTER 2019-08-02 08:52 | Inpatient (IN) | payer MEDICARE ==
--- NOTE | 2019-08-02 09:20 | ED ---
General Adult HPI - General Chief complaint: Shortness of Breath Stated complaint: ROSE Time Seen by Provider: 08/02/19 08:54 Source: EMS Mode of arrival: EMS Limitations: no limitations - History of Present Illness Initial comments: Dictation was produced using [employer] dictation software. please excuse any grammatical, word or spelling errors. This patient was cared for during a federal and state declared state of emergency secondary to Covid 19 Chief Complaint: 78-year-old female presents with dyspnea 3 days. History of Present Illness: 78-year-old female presents with dyspnea 3 days. Patient states she has history of H fibrillation. She denies any history of heart failure. Patient reports that there is ago she began having symptoms. He states worse when she lies flat. She denies any chest pain but does complain of some left shoulder pain. Patient states his hard to sleep when lying flat she sleeps in a hospital bed and has to sit up. She denies any swelling in her legs. Patient does take a look was atrial fibrillation. She denies any history of DVT or PE. 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 She does see a chemical production engineer for this. Patient per she is compliant with her medications at home. The ROS documented in this emergency department record has been reviewed and confirmed by me. Those systems with pertinent positive or negative responses have been documented in the HPI. All other systems are other negative and/or noncontributory. PHYSICAL EXAM: General Impression: Alert and oriented x3, not in acute distress HEENT: Normocephalic atraumatic, extra-ocular movements intact, pupils equal and reactive to light bilaterally, mucous membranes moist. Cardiovascular: Heart regular rate and rhythm Chest: Speaking 5-6 word sentences, no retractions, no tachypnea, lungs clear to auscultation bilaterally Abdomen: abdomen soft, non-tender, non-distended, no organomegaly Musculoskeletal: Pulses present and equal in all extremities, no peripheral edema Motor: no focal deficits noted Neurological: CN II-XII grossly intact, no focal motor or sensory deficits noted Skin: Intact with no visualized rashes Psych: Normal affect and mood ED course: 78-year-old female presents with acute on chronic dyspnea 3 days. Signs upon arrival shows findings within acceptable limits. Patient at rest appears to be in no respiratory distress however when asked to speak long sentences she can with complete 5-6 word sentences. Laboratory evaluation obtained. CBC, coag panel unremarkable. Venous blood gas is unremarkable. Metabolic panel is negative. Patient has a troponin 0.015 which is around her baseline. Her nitrate peptide is 2500 which is slightly above her baseline. Patient's chest x-ray was clear. Considering patient's clear lung sounds and normal chest x-ray highly doubt that patient's clinical presentation represents decompensated heart failure. May be slightly mild. Patient given 40 mg of IV Lasix. Concerning patient's degree of dyspnea we'll have patient made observation with consultation to pulmonology. Discussed patient case with Tanner was is willing to accept patients care. EKG interpretation: Ventricular rate 104, A. fib, QRS 104, QTc 507. No UT prolongation, no QTC prolongation, no ST or T-wave changes noted. EKG compared to November 262018 showing no changes. Overall, this EKG is unremar kable - Related Data Home Medications Medication Instructions Recorded Confirmed Gabapentin [Neurontin] 1,200 mg PO TID 02/27/14 11/19/18 Lansoprazole [Prevacid] 15 mg PO HS 02/27/14 11/19/18 hydrOXYzine HCL [Atarax] 50 mg PO HS 04/12/16 11/19/18 Folic Acid 1 mg PO DAILY 08/13/16 11/19/18 Latanoprost [Xalatan 0.005%] 1 drop BOTH EYES HS 08/11/17 11/19/18 Levothyroxine Sodium [Synthroid] 224 mcg PO DAILY 08/11/17 11/19/18 Pilocarpine HCl [Salagen] 7.5 mg PO TID 08/11/17 11/19/18 metFORMIN HCL [Glucophage] 1,000 mg PO AC-BID@1200,1700 08/11/17 11/19/18 Adalimumab [Humira Pediatric 40 mg SQ WE 09/25/18 11/19/18 Crohn's] Furosemide [Lasix] 40 mg PO DAILY 09/25/18 11/19/18 HYDROcodone/APAP 10-325MG [[place] 1 tab PO Q6HR PRN 09/25/18 11/19/18 10-325] Insulin Degludec [Tresiba] 46 units SQ DAILY 09/25/18 11/19/18 Insulin Lispro [humaLOG Kwikpen] See Protocol SQ AC-TID 09/25/18 11/19/18 Tolterodine Tartrate [Detrol LA] 4 mg PO DAILY 09/25/18 11/19/18 Gabapentin 1,600 mg PO HS 11/14/18 11/19/18 Leflunomide 20 mg PO DAILY 11/14/18 11/19/18 Methocarbamol [Robaxin] 750 mg PO TID 11/14/18 11/19/18 methylPREDNISolone Dose Pack See Taper PO DIRECTED 11/14/18 11/19/18 [Medrol Dose Pack] predniSONE 4 mg PO DAILY 11/14/18 11/19/18 tiZANidine [Zanaflex] 4 - 8 mg PO HS PRN 11/15/18 11/19/18 Aspirin EC [Ecotrin] 325 mg PO DAILY 11/19/18 11/19/18 Calcium Carbonate/Vitamin D3 1 tab PO BID 11/19/18 11/19/18 [Calcium 500-Vit D3 200 Tablet] Clotrimazole [Lotrimin AF] 1 applic TOPICAL DAILY 11/19/18 11/19/18 Cyclobenzaprine [Flexeril] 10 mg PO BID 11/19/18 11/19/18 Glucosam/Cristian-Msm1/C/Finn/Bosw 1 tab PO DAILY 11/19/18 11/19/18 [Glucosamine-Chondroitin Tablet] Metoprolol Tartrate [Lopressor] 50 mg PO BID 11/19/18 11/19/18 Multivitamins, Thera [Multivitamin 1 tab PO DAILY 11/19/18 11/19/18 (formulary)] Rosuvastatin [Crestor] 10 mg PO HS 11/19/18 11/19/18 Previous Rx's Medication Instructions Recorded Nitroglycerin Sl Tabs [Nitrostat] 0.4 mg SUBLINGUAL Q5M PRN #30 tab 08/13/17 Apixaban [Eliquis] 5 mg PO BID #60 tab 08/30/17 Amiodarone [Cordarone] 200 mg PO DAILY #30 tab 11/23/18 Diltiazem Oral [Cardizem*] 90 mg PO TID #90 tab 11/23/18 Levofloxacin [Levaquin] 500 mg PO DAILY #7 tab 11/23/18 valACYclovir HCL [Valtrex] 1,000 mg PO BID #10 tablet 11/23/18 Allergies Allergy/AdvReac Type Severity Reaction Status Date / Time adhesive Allergy Rash/Hives Verified 11/19/18 07:28 cephalexin [From Keflex] Allergy Rash/Hives Verified 11/19/18 07:28 grass pollen Allergy Unknown Verified 11/19/18 07:28 mold Allergy Unknown Verified 11/19/18 07:28 Sulfa (Sulfonamide Allergy Rash/Hives Verified 11/19/18 07:28 Antibiotics) newspaper ink Allergy Unknown Uncoded 11/19/18 00:27 Review of Systems ROS Statement: Those systems with pertinent positive or pertinent negative responses have been documented in the HPI. ROS Other: All systems not noted in ROS Statement are negative. Past Medical History Past Medical History: Atrial Fibrillation, Cancer, Diabetes Mellitus, Hyperlipidemia, Hypertension, Musculoskeletal Disorder, Neurologic Disorder, Osteoarthritis (OA), Renal Disease, Rheumatoid Arthritis (RA), Skin Disorder, Thyroid Disorder Additional Past Medical History / Comment(s): IDDM type II, spinal stenosis, Reynauds, neurologic sjogrens BALANCE ISSUES, SINUS INFECTIONS, HAS HAD DOUBLE VISION ALL HER LIFE-when looks certain directions, hypothyroidism, acute kidney failure psoriasis, UTI s, melanoma skin cancer lt arm, bilateral elbow bursitis with MRSA and I&Ds/antibiotics.pt stated never had gout. History of Any Multi-Drug Resistant Organisms: MRSA Date of last positivie culture/infection: 02/27/14 MDRO Source:: Sputum Past Surgical History: Back Surgery, Breast Surgery, Heart Catheterization, Joint Replacement, Orthopedic Surgery Additional Past Surgical History / Comment(s): Bilateral cataracts with lens implants, arthroscopies to lt wrist, gualberto knees, gualberto ankles, gualberto hips, lt hip replacment and redone, L/R shoulder sxs, rt breast bx-benign, egd/colonoscopy, skin cancer removal L arm. Past Anesthesia/Blood Transfusion Reactions: No Reported Reaction Past Psychological History: No Psychological Hx Reported Smoking Status: Former smoker Past Alcohol Use History: None Reported Past Drug Use History: None Reported - Past Family History Mother Family Medical History: CVA/TIA Additional Family Medical History / Comment(s): RUPTURED BOWEL Father Family Medical History: Cancer, Pneumonia Additional Family Medical History / Comment(s): ASPIRATIVE PNA Sister(s) Additional Family Medical History / Comment(s): at age 34 with lupus General Exam Limitations: no limitations Course Vital Signs 08/02/19 08/02/19 08/02/19 08:53 08:59 09:30 Temperature 99.3 F Pulse Rate 103 H 89 Respiratory 18 18 15 Rate Blood Pressure 116/68 111/59 O2 Sat by Pulse 94 L 95 Oximetry 08/02/19 08/02/19 10:00 10:30 Temperature Pulse Rate 86 84 Respiratory 18 17 Rate Blood Pressure 114/60 122/71 O2 Sat by Pulse 96 96 Oximetry Medical Decision Making - Lab Data Result diagrams: 08/02/19 08:59 08/02/19 08:59 Lab Results 08/02/19 08/02/19 08/02/19 Range/Units 08:59 08:59 08:59 WBC 8.8 (3.8-10.6) k/uL RBC 4.38 (3.80-5.40) m/uL Hgb 11.9 (11.4-16.0) gm/dL Hct 38.8 (34.0-46.0) % MCV 88.5 (80.0-100.0) fL MCH 27.3 (25.0-35.0) pg MCHC 30.8 L (31.0-37.0) g/dL RDW 15.5 (11.5-15.5) % Plt Count 195 (150-450) k/uL Neutrophils % 70 % Lymphocytes % 18 % Monocytes % 8 % Eosinophils % 1 % Basophils % 1 % Neutrophils # 6.1 (1.3-7.7) k/uL Lymphocytes # 1.6 (1.0-4.8) k/uL Monocytes # 0.7 (0-1.0) k/uL Eosinophils # 0.1 (0-0.7) k/uL Basophils # 0.1 (0-0.2) k/uL Hypochromasia Slight PT 11.1 (9.0-12.0) sec INR 1.1 (<1.2) APTT 26.6 (22.0-30.0) sec VBG pH (7.31-7.41) VBG pCO2 (37-51) mmHg VBG HCO3 (24-28) mmol/L Sodium 134 L (137-145) mmol/L Potassium 4.3 (3.5-5.1) mmol/L Chloride 100 (98-107) mmol/L Carbon Dioxide 26 (22-30) mmol/L Anion Gap 8 mmol/L BUN 11 (7-17) mg/dL Creatinine 0.59 (0.52-1.04) mg/dL Est GFR (CKD-EPI)AfAm >90 (>60 ml/min/1.73 sqM) Est GFR (CKD-EPI)NonAf 89 (>60 ml/min/1.73 sqM) Glucose 161 H (74-99) mg/dL Plasma Lactic Acid Cj (0.7-2.0) mmol/L Calcium 9.4 (8.4-10.2) mg/dL Magnesium 1.5 L (1.6-2.3) mg/dL Total Bilirubin 0.9 (0.2-1.3) mg/dL AST 27 (14-36) U/L ALT 14 (4-34) U/L Alkaline Phosphatase 51 (38-126) U/L Troponin I (0.000-0.034) ng/mL NT-Pro-B Natriuret Pep pg/mL Total Protein 6.7 (6.3-8.2) g/dL Albumin 3.8 (3.5-5.0) g/dL 08/02/19 08/02/19 08/02/19 Range/Units 08:59 08:59 08:59 WBC (3.8-10.6) k/uL RBC (3.80-5.40) m/uL Hgb (11.4-16.0) gm/dL Hct (34.0-46.0) % MCV (80.0-100.0) fL MCH (25.0-35.0) pg MCHC (31.0-37.0) g/dL RDW (11.5-15.5) % Plt Count (150-450) k/uL Neutrophils % % Lymphocytes % % Monocytes % % Eosinophils % % Basophils % % Neutrophils # (1.3-7.7) k/uL Lymphocytes # (1.0-4.8) k/uL Monocytes # (0-1.0) k/uL Eosinophils # (0-0.7) k/uL Basophils # (0-0.2) k/uL Hypochromasia PT (9.0-12.0) sec INR (<1.2) APTT (22.0-30.0) sec VBG pH (7.31-7.41) VBG pCO2 (37-51) mmHg VBG HCO3 (24-28) mmol/L Sodium (137-145) mmol/L Potassium (3.5-5.1) mmol/L Chloride (98-107) mmol/L Carbon Dioxide (22-30) mmol/L Anion Gap mmol/L BUN (7-17) mg/dL Creatinine (0.52-1.04) mg/dL Est GFR (CKD-EPI)AfAm (>60 ml/min/1.73 sqM) Est GFR (CKD-EPI)NonAf (>60 ml/min/1.73 sqM) Glucose (74-99) mg/dL Plasma Lactic Acid Cj 1.9 (0.7-2.0) mmol/L Calcium (8.4-10.2) mg/dL Magnesium (1.6-2.3) mg/dL Total Bilirubin (0.2-1.3) mg/dL AST (14-36) U/L ALT (4-34) U/L Alkaline Phosphatase (38-126) U/L Troponin I 0.015 (0.000-0.034) ng/mL NT-Pro-B Natriuret Pep 2510 pg/mL Total Protein (6.3-8.2) g/dL Albumin (3.5-5.0) g/dL 08/02/19 Range/Units 09:28 WBC (3.8-10.6) k/uL RBC (3.80-5.40) m/uL Hgb (11.4-16.0) gm/dL Hct (34.0-46.0) % MCV (80.0-100.0) fL MCH (25.0-35.0) pg MCHC (31.0-37.0) g/dL RDW (11.5-15.5) % Plt Count (150-450) k/uL Neutrophils % % Lymphocytes % % Monocytes % % Eosinophils % % Basophils % % Neutrophils # (1.3-7.7) k/uL Lymphocytes # (1.0-4.8) k/uL Monocytes # (0-1.0) k/uL Eosinophils # (0-0.7) k/uL Basophils # (0-0.2) k/uL Hypochromasia PT (9.0-12.0) sec INR (<1.2) APTT (22.0-30.0) sec VBG pH 7.46 H (7.31-7.41) VBG pCO2 39 (37-51) mmHg VBG HCO3 27 (24-28) mmol/L Sodium (137-145) mmol/L Potassium (3.5-5.1) mmol/L Chloride (98-107) mmol/L Carbon Dioxide (22-30) mmol/L Anion Gap mmol/L BUN (7-17) mg/dL Creatinine (0.52-1.04) mg/dL Est GFR (CKD-EPI)AfAm (>60 ml/min/1.73 sqM) Est GFR (CKD-EPI)NonAf (>60 ml/min/1.73 sqM) Glucose (74-99) mg/dL Plasma Lactic Acid Cj (0.7-2.0) mmol/L Calcium (8.4-10.2) mg/dL Magnesium (1.6-2.3) mg/dL Total Bilirubin (0.2-1.3) mg/dL AST (14-36) U/L ALT (4-34) U/L Alkaline Phosphatase (38-126) U/L Troponin I (0.000-0.034) ng/mL NT-Pro-B Natriuret Pep pg/mL Total Protein (6.3-8.2) g/dL Albumin (3.5-5.0) g/dL Disposition Clinical Impression: Dyspnea Disposition: ADMITTED IP TO THIS HOSP Condition: Fair Referrals: Nicholas Hart MD [Primary Care Provider] - 1-2 days Decision Time: 10:56
[2019-08-02 09:32] LABS: Basophils # (A) 0.1 k/uL (0-0.2); Basophils % (A) 1 %; Eosinophils # (A) 0.1 k/uL (0-0.7); Eosinophils % (A) 1 %; HCT 38.8 % (34.0-46.0); HGB 11.9 gm/dL (11.4-16.0); Hypochromasia Slight; Lymphocytes # (A) 1.6 k/uL (1.0-4.8); Lymphocytes % (A) 18 %; MCH 27.3 pg (25.0-35.0); MCHC 30.8 g/dL (31.0-37.0); MCV 88.5 fL (80.0-100.0); Monocytes # (A) 0.7 k/uL (0-1.0); Monocytes % (A) 8 %; Neutrophils # (A) 6.1 k/uL (1.3-7.7); Neutrophils % (A) 70 %; Platelet Count 195 k/uL (150-450); RBC 4.38 m/uL (3.80-5.40); RDW 15.5 % (11.5-15.5); WBC 8.8 k/uL (3.8-10.6)
[2019-08-02 09:42] LABS: INR 1.1 (<1.2); Partial Thromboplastin Time 26.6 sec (22.0-30.0); Prothrombin Time 11.1 sec (9.0-12.0)
[2019-08-02 09:43] LABS: ALT 14 U/L (4-34); AST 27 U/L (14-36); African American GFR (CKD) >90 (>60 ml/min/1.73 sqM); Albumin 3.8 g/dL (3.5-5.0); Alkaline Phosphatase 51 U/L (38-126); Anion Gap 8 mmol/L; Blood Urea Nitrogen 11 mg/dL (7-17); Calcium 9.4 mg/dL (8.4-10.2); Carbon Dioxide 26 mmol/L (22-30); Chloride 100 mmol/L (98-107); Glucose 161 mg/dL (74-99); Magnesium 1.5 mg/dL (1.6-2.3); Non-African American GFR(CKD) 89 (>60 ml/min/1.73 sqM); Potassium 4.3 mmol/L (3.5-5.1); Sodium 134 mmol/L (137-145); Total Bilirubin 0.9 mg/dL (0.2-1.3); Total Protein 6.7 g/dL (6.3-8.2)
--- NOTE | 2019-08-02 09:43 | XR ---
EXAMINATION TYPE: XR chest 1V DATE OF EXAM: 08/02/2019 COMPARISON: Chest x-ray November 21, 2018. CT September 28, 2018. HISTORY: Dyspnea. TECHNIQUE: Single AP portable frontal view of the chest is obtained. FINDINGS: Overlying EKG leads are present. There is chronic parenchymal changes bilaterally without suspicious new focal air space opacity, pleural effusion, or pneumothorax seen. The cardiac silhouet te size remains mildly enlarged with atherosclerotic aorta. Partial visualization of fusion plate in the cervical spine noted. Suspect prior distal right clavicular resection. IMPRESSION: Chronic changes and mild cardiomegaly without acute pulmonary process currently.
[2019-08-02 09:47] LABS: VBG PH 7.46 (7.31-7.41)
[2019-08-02] MEDS ORDERED: NALOXONE 0.4 MG/ML 1 ML VIAL IV PRN (10:52)
[2019-08-02] MEDS ORDERED: ACETAMINOPHEN TAB 325 MG TAB PO PRN (10:52)
[2019-08-02] MEDS ORDERED: FUROSEMIDE 10 MG/ML 4 ML VIAL IV STA (10:55)
[2019-08-02] MEDS: SODIUM CHLORIDE 0.9% 1,000 ML IV SCH (12:58)
--- NOTE | 2019-08-02 13:53 | P.CNPUL ---
History of Present Illness Consult date: 08/02/19 Reason for consult: dyspnea History of present illness: 78-year-old morbidly obese female patient with known history of chronic atrial fibrillation and rheumatoid arthritis maintained on immunosuppressive agents coming into the hospital because of some limited shortness of breath over the past few days. No significant hypoxemia. No pleurisy. No hemoptysis. Shortness of breath essentially exertional. No orthopnea. No proximal nocturnal dyspnea. No previous history of DVT or pulmonary embolism. No indication for any form of chronic interstitial lung disease based on the most recent computed tomography scan of the chest that was done 2018. At that time the patient also was noted to have recovery of previously noted mediastinal ly mph nodes. The patient's white cell count of 8.8. Hemoglobin is 11.9. ProBNP is 2510. All of the LFTs are within normal limits. Electrodes are also within normal limits. Renal function is within normal limits. The patient's chest x- ray showing some mild cardiomegaly without any acute cardio pulmonary process the EKG is consistent with atrial fibrillation and old anterior wall myocardial infarction with Q waves and left posterior fascicular block. Review of Systems CONSTITUTIONAL: No fever, no malaise, no fatigue. HEENT: No recent visual problems or hearing problems. Denied any sore throat. CARDIOVASCULAR: No chest pain, orthopnea, PND, no syncope. PULMONARY: no cough, no hemoptysis. GASTROINTESTINAL: No diarrhea, no nausea, no vomiting, no abdominal pain. Normoactive bowel sounds. NEUROLOGICAL: No headaches, no weakness, no numbness. HEMATOLOGICAL: Denies any bleeding or petechiae. GENITOURINARY: Denies any burning micturition, frequency, or urgency. MUSCULOSKELETAL/RHEUMATOLOGICAL: Denies any joint pain, swelling, or any muscle pain. ENDOCRINE: Denies any polyuria or polydipsia. The rest of the 14-point review of systems is negative. Past Medical History Past Medical History: Atrial Fibrillation, Coronary Artery Disease (CAD), Cancer, Diabetes Mellitus, Hyperlipidemia, Hypertension, Musculoskeletal Disorder, Neurologic Disorder, Osteoarthritis (OA), Renal Disease, Rheumatoid Arthritis (RA), Skin Disorder, Thyroid Disorder Additional Past Medical History / Comment(s): Morbid obesity, chronic atrial fibrillation, diabetes mellitus type 2, hypertension, hyperlipidemia, spinal stenosis, osteoarthritis, hypothyroidism, hypertension, history of skin melanoma, history of bursitis with MRSA post I&D, rheumatoid arthritis, Sjogren's disease, 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 Past Anesthesia/Blood Transfusion Reactions: No Reported Reaction Past Psychological History: No Psychological Hx Reported Smoking Status: Former smoker Past Alcohol Use History: None Reported Past Drug Use History: None Reported - Past Family History Mother Family Medical History: CVA/TIA Additional Family Medical History / Comment(s): RUPTURED BOWEL Father Family Medical History: Cancer, Pneumonia Additional Family Medical History / Comment(s): ASPIRATIVE PNA Sister(s) Additional Family Medical History / Comment(s): at age 34 with lupus Medications and Allergies Home Medications Medication Instructions Recorded Confirmed Type RX: Gabapentin [Neurontin] 1,200 mg PO BID@0800,1800 02/27/14 08/02/19 History RX: Lansoprazole [Prevacid] 15 mg PO HS 02/27/14 08/02/19 History RX: hydrOXYzine HCL [Atarax] 50 mg PO HS 04/12/16 08/02/19 History RX: Folic Acid 1 mg PO DAILY 08/13/16 08/02/19 History RX: Latanoprost [Xalatan 0.005%] 1 drop BOTH EYES HS 08/11/17 08/02/19 History RX: Pilocarpine HCl [Salagen] 7.5 mg PO TID@0800,1200,1800 08/11/17 08/02/19 History RX: metFORMIN HCL [Glucophage] 1,000 mg PO AC-BID 08/11/17 08/02/19 History RX: Nitroglycerin Sl Tabs 0.4 mg SUBLINGUAL Q5M PRN #30 tab 08/13/17 08/02/19 Rx [Nitrostat] RX: Apixaban [Eliquis] 5 mg PO BID #60 tab 08/30/17 08/02/19 Rx RX: Adalimumab [Humira Pediatric 40 mg SQ WE 09/25/18 08/02/19 History Crohn's] RX: Furosemide [Lasix] 80 mg PO DAILY 09/25/18 08/02/19 History RX: HYDROcodone/APAP 10-325MG 1 tab PO Q6HR 09/25/18 08/02/19 History [[place] 10-325] RX: Insulin Degludec [Tresiba] 46 units SQ DAILY 09/25/18 08/02/19 History RX: Insulin Lispro [humaLOG See Protocol SQ AC-TID 09/25/18 08/02/19 History Kwikpen] RX: Tolterodine Tartrate [Detrol 4 mg PO DAILY@1200 09/25/18 08/02/19 History LA] RX: Gabapentin 1,600 mg PO HS 11/14/18 08/02/19 History RX: Leflunomide 20 mg PO DAILY 11/14/18 08/02/19 History RX: Methocarbamol [Robaxin] 750 mg PO TID@1200,1800,2100 11/14/18 08/02/19 History RX: predniSONE 4 mg PO DAILY 11/14/18 08/02/19 History RX: tiZANidine [Zanaflex] 4 - 8 mg PO HS PRN 11/15/18 08/02/19 History RX: Aspirin EC [Ecotrin] 325 mg PO DAILY 11/19/18 08/02/19 History RX: Calcium Carbonate/Vitamin D3 1 tab PO BID 11/19/18 08/02/19 History [Calcium 500-Vit D3 200 Tablet] RX: Clotrimazole [Lotrimin AF] 1 applic TOPICAL DAILY 11/19/18 08/02/19 History RX: Glucosam/Cristian-Msm1/C/Finn/Bosw 1 tab PO DAILY 11/19/18 08/02/19 History [Glucosamine-Chondroitin Tablet] RX: Metoprolol Tartrate [Lopressor] 50 mg PO BID@0800,2100 11/19/18 08/02/19 History RX: Multivitamins, Thera 1 tab PO DAILY 11/19/18 08/02/19 History [Multivitamin (formulary)] RX: Amiodarone [Cordarone] 200 mg PO DAILY #30 tab 11/23/18 08/02/19 Rx RX: Diltiazem Oral [Cardizem*] 90 mg PO TID #90 tab 11/23/18 08/02/19 Rx Gabapentin [Neurontin] 800 mg PO DAILY@1200 08/02/19 08/02/19 History Levothyroxine Sodium [Synthroid] 250 mcg PO DAILY 08/02/19 08/02/19 History Metoprolol Tartrate [Lopressor] 25 mg PO DAILY@1200 08/02/19 08/02/19 History Allergies Allergy/AdvReac Type Severity Reaction Status Date / Time adhesive Allergy Rash/Hives Verified 08/02/19 11:25 cephalexin [From Keflex] Allergy Rash/Hives Verified 08/02/19 11:25 grass pollen Allergy Unknown Verified 08/02/19 11:25 mold Allergy Unknown Verified 08/02/19 11:25 Sulfa (Sulfonamide Allergy Rash/Hives Verified 08/02/19 11:25 Antibiotics) Yeast Allergy Unknown Verified 08/02/19 11:25 newspaper ink Allergy Mild Unknown Uncoded 08/02/19 11:25 Physical Exam Vitals: Vital Signs Temp Pulse Resp BP Pulse Ox 08/02/19 12:30 17 126/63 98 08/02/19 12:00 76 18 114/76 97 08/02/19 11:30 78 18 115/61 97 08/02/19 11:00 70 17 116/72 93 L 08/02/19 10:30 84 17 122/71 96 08/02/19 10:00 86 18 114/60 96 08/02/19 09:30 89 15 111/59 95 08/02/19 08:59 18 08/02/19 08:53 99.3 F 103 H 18 116/68 94 L Intake and Output 08/01/19 08/02/19 08/02/19 22:59 06:59 14:59 Other: Weight 129.274 kg GENERAL: The patient is alert and oriented x3, not in any acute distress. Well developed, well nourished. HEENT: Pupils are round and equally reacting to light. EOMI. No scleral icterus. No conjunctival pallor. Normocephalic, atraumatic. No pharyngeal erythema. No thyromegaly. CARDIOVASCULAR: S1 and S2 present. No murmurs, rubs, or gallops. PULMONARY: Chest is clear to auscultation, no wheezing or crackles. ABDOMEN: Soft, nontender, nondistended, normoactive bowel sounds. No palpable organomegaly. MUSCULOSKELETAL: No joint swelling or deformity. EXTREMITIES: No cyanosis, clubbing, or pedal edema. NEUROLOGICAL: Gross neurological examination did not reveal any focal deficits. SKIN: No rashes. Results - Laboratory Findings CBC and BMP: 08/02/19 08:59 08/02/19 08:59 PT/INR, D-dimer PT 11.1 sec (9.0-12.0) 08/02/19 08:59 INR 1.1 (<1.2) 08/02/19 08:59 Abnormal lab findings: Abnormal Labs 08/02/19 08/02/19 08/02/19 08:59 08:59 09:28 MCHC 30.8 L VBG pH 7.46 H Sodium 134 L Glucose 161 H Magnesium 1.5 L - Diagnostic Findings Chest x-ray: image reviewed Assessment and Plan Plan: 1 chronic dyspnea/shortness of breath, multifactorial, without any acute abnor malities identified on today's evaluation 2 chronic atrial fibrillation rate controlled on long-term and to coagulation with Eliquis 3 history of rheumatoid arthritis maintained on immunosuppressive agents 4 history of Sjogren's disease 5 hypertension 6 hyperlipidemia 7 obesity with a BMI of 35.6 8 diabetes mellitus type 2 9 coronary artery disease, nonobstructive 10 hypothyroidism 11 osteoarthritis 12 history of skin melanoma, resected 13 history of bursitis with MRSA, postprandial and treated 13 history of spinal stenosis Plan Patient has been admitted for observation I will resume home medications Continue long-term articulation with Eliquis Room air pulse ox is ranging between 90-98% We'll follow
[2019-08-02 14:53] LABS: Glucose,Whole Blood 178 mg/dL (75-99)
[2019-08-02] MEDS ORDERED: NITROGLYCERIN SL TABS 0.4 MG TAB SUBLINGUAL PRN (16:08)
[2019-08-02] MEDS ORDERED: tiZANidine 4 MG TAB PO PRN (16:08)
[2019-08-02 16:44] LABS: Glucose,Whole Blood 198 mg/dL (75-99)
[2019-08-02] MEDS: HYDROcodone/APAP 10-325MG 1 EACH TAB PO SCH (17:13)
[2019-08-02] MEDS: metFORMIN 500 MG TAB PO SCH (17:13)
[2019-08-02] MEDS: INSULIN ASPART (NovoLOG) 100 UNIT/ML VIAL SQ SCH ×2 (17:14→21:52)
[2019-08-02] MEDS: METHOCARBAMOL 750 MG TAB PO SCH ×2 (17:17→21:51)
[2019-08-02] MEDS: PILOCARPINE 5 MG TAB PO SCH (17:17)
[2019-08-02] MEDS ORDERED: GABAPENTIN PO SCH ×3 (17:30→21:00)
[2019-08-02] MEDS: GABAPENTIN PO SCH ×2 (17:43→22:43)
[2019-08-02 21:04] LABS: Glucose,Whole Blood 187 mg/dL (75-99)
[2019-08-02] MEDS: METOPROLOL TARTRATE 50 MG TAB PO SCH (21:50)
[2019-08-02] MEDS: hydrOXYzine HCL 25 MG TAB PO SCH (21:50)
[2019-08-02] MEDS: APIXABAN 5 MG TAB PO SCH (21:50)
[2019-08-02] MEDS: PANTOPRAZOLE 40 MG TABLET PO SCH (21:50)
[2019-08-02] MEDS: CALCIUM CARB-VIT D 500MG-200UN 1 EACH TAB PO SCH (21:50)
[2019-08-02] MEDS: INSULIN DETEMIR (LEVEMIR) 100 UNIT/ML SYR SQ SCH (21:50)
[2019-08-02] MEDS: LATANOPROST 0.005% OPHTH DROPS 2.5 ML BTL BOTH EYES SCH (21:51)
[2019-08-02] MEDS: DILTIAZEM ORAL 30 MG TAB PO SCH (21:52)
[2019-08-02] MEDS ORDERED: ALPRAZolam 0.25 MG TAB PO PRN (23:44)
[2019-08-03] MEDS: HYDROcodone/APAP 10-325MG 1 EACH TAB PO SCH ×5 (00:22→23:45)
[2019-08-03] MEDS: methylPREDNISolone SOD SUCCI 125 MG/2 ML VIAL IV SCH ×5 (00:23→23:46)
[2019-08-03] MEDS: LEVOTHYROXINE 125 MCG TAB PO SCH (06:19)
--- NOTE | 2019-08-03 07:11 | HP ---
HISTORY AND PHYSICAL DATE OF SERVICE: 08/02/2019 CHIEF COMPLAINT: Shortness of breath. 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 Hart in the outpatient setting is complaining of increased shortness of breath for the last 3 weeks. The patient came to [facility] and admitted for further evaluation and treatment. Chest x-ray showed only chronic changes. Otherwise, there is no history of fever or rigors. No headache, loss of consciousness, seizures. No history of sick contacts. Also, the patient is started on IV steroids. Heart rate is also elevated up to 100 at this time. PAST MEDICAL HISTORY: History of atrial fibrillation, CAD, diabetes, hypertension, hyperlipidemia, DJD, history of back surgery. HOME MEDICATIONS: 1. Insulin degludec, that is Tresiba. 2. Gabapentin. 3. Atarax. 4. Detrol LA. 5. Salagen. 6. Nitrostat. 7. Folic acid. 8. Zanaflex. 9. Prednisone. 10.Ecotrin. 11.Cordarone. 12.Humira. 13.Lotrimin. 14.Gabapentin. 15.Lopressor. 16.Glucophage. 17.Robaxin. 18.Pravachol. 19.Hydrocodone. 20.Lasix. 21.Eliquis. 22.Cardizem. Doses are reviewed. ALLERGIES: ( ), GRASS, POLLEN, MOLD, SULFA, NEWSPAPER INK. FAMILY HISTORY: History of CVA, TIA, history of lupus. SOCIAL HISTORY: History of smoking. No current smoking or alcohol intake. REVIEW OF SYSTEMS: ENT No history of diminished hearing or vision. CARDIOVASCULAR No angina or palpitations. RESPIRATORY As mentioned earlier. GI No nausea, vomiting, or diarrhea. No dysuria or hematuria. NERVOUS No numbness or weakness. ALLERGY/IMMUNOLOGY No asthma or hayfever. MUSCULOSKELETAL As mentioned earlier. HEMATOLOGY/ONCOLOGY Negative. ENDOCRINE As mentioned earlier. CONSTITUTIONAL As mentioned earlier. DERMATOLOGY Negative. RHEUMATOLOGY Negative. PSYCHIATRY As mentioned earlier. PHYSICAL EXAMINATION: Alert and oriented x3. Pulse is 93, blood pressure 124/77, respiration 12, temperature 97.8, pulse ox 99% on 3 L. HEENT: Conjunctivae normal. Oral mucosa moist. NECK: No jugular venous distention. No lymph node enlargement. CARDIOVASCULAR: S1, S2. Tachycardiac. RESPIRATORY: Diminished breath sounds at the bases. A few scattered rhonchi and crackles. ABDOMEN: Soft, obese, nontender. LEGS: No edema, no swelling. NERVOUS SYSTEM: Higher functions mentioned earlier. Moves all four limbs. No focal deficits. LYMPHATICS: No lymph node in neck or axilla. SKIN: No rash. JOINTS: No active deforming arthropathy. LABS: WBC 8.2, hemoglobin 11.9, sodium 135, magnesium 1.5. ASSESSMENT: 1. 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 2. Atrial fibrillation with fast ventricular rate. 3. Hyponatremia. 4. Hypomagnesemia. 5. History of chronic atrial fibrillation. 6. Coronary artery disease. 7. Diabetes type 2. 8. Hypertension. 9. Hyperlipidemia. 10.Degenerative joint disease. 11.History of pneumonia. 12.History of skin disorder. 13.History of morbid obesity. 14.History of spinal stenosis. 15.History of degenerative joint disease. 16.History of hypothyroidism. 17.History of skin melanoma. 18.History of bursitis MRSA. 19.History of Sjogren's disease. 20.History of mediastinal lymphadenopathy, recovered. 21.History of MRSA. 22.History of cardiac catheterization. 23.History of bilateral cataracts. 24.History of degenerative joint disease. 25.Remote history of nicotine dependence. 26.FULL CODE. RECOMMENDATIONS AND DISCUSSION: In this 78-year-old woman who presented with multiple complex medical issues, at this time I recommend to continue the current medications, continue symptomatic treatment. I recommend empiric course of IV steroids and bronchodilators. Continue to monitor. Otherwise, resume the rest of the medications. Sugars are elevated, I recommend IV insulin drip otherwise continue to monitor. Prognosis guarded because of multiple complex medical issues. I would also recommend consult Cardiology because heart rate is also elevated up to 100. The patient might require further adjustment of the beta blockers or Cardizem. We will follow the patient closely with you. MMRUIZL / MANNN: [id number] /
[2019-08-03 07:31] LABS: Glucose,Whole Blood 318 mg/dL (75-99)
[2019-08-03] MEDS: INSULIN ASPART (NovoLOG) 100 UNIT/ML VIAL SQ SCH ×4 (07:38→21:27)
[2019-08-03] MEDS: GABAPENTIN PO SCH ×4 (07:38→21:26)
[2019-08-03] MEDS: FOLIC ACID 1 MG TAB PO SCH (07:39)
[2019-08-03] MEDS: metFORMIN 500 MG TAB PO SCH ×2 (07:39→17:28)
[2019-08-03] MEDS: DILTIAZEM ORAL 30 MG TAB PO SCH ×3 (07:39→21:26)
[2019-08-03] MEDS: METOPROLOL TARTRATE 50 MG TAB PO SCH ×3 (07:39→23:45)
[2019-08-03] MEDS: MULTIVITAMINS, THERA 1 EACH TAB PO SCH (07:40)
[2019-08-03] MEDS: CALCIUM CARB-VIT D 500MG-200UN 1 EACH TAB PO SCH ×2 (07:40→21:26)
[2019-08-03] MEDS: PILOCARPINE 5 MG TAB PO SCH ×3 (07:40→17:28)
[2019-08-03] MEDS: APIXABAN 5 MG TAB PO SCH ×2 (07:40→21:26)
[2019-08-03] MEDS: FUROSEMIDE 80 MG TAB PO SCH (07:40)
[2019-08-03] MEDS: NON FORMULARY DRUG (Glucosam/Chon-Msm1/C/Mang/Bosw [Glucosamine-Chondroitin Tablet] 1 TAB) PO SCH (07:48)
[2019-08-03 08:20] LABS: Basophils % (A) 1 %; Eosinophils % (A) 1 %; HCT 37.9 % (34.0-46.0); HGB 11.6 gm/dL (11.4-16.0); Hypochromasia Slight; Lymphocytes # (A) 0.7 k/uL (1.0-4.8); Lymphocytes % (A) 14 %; MCH 27.6 pg (25.0-35.0); MCHC 30.6 g/dL (31.0-37.0); MCV 90.2 fL (80.0-100.0); Mean Platelet Volume 7.8; Monocytes # (A) 0.2 k/uL (0-1.0); Monocytes % (A) 3 %; Neutrophils # (A) 4.1 k/uL (1.3-7.7); Neutrophils % (A) 81 %; Platelet Count 186 k/uL (150-450); RDW 15.4 % (11.5-15.5)
[2019-08-03 08:31] LABS: African American GFR (CKD) >90 (>60 ml/min/1.73 sqM); Anion Gap 7 mmol/L; Blood Urea Nitrogen 14 mg/dL (7-17); Calcium 9.4 mg/dL (8.4-10.2); Carbon Dioxide 28 mmol/L (22-30); Chloride 101 mmol/L (98-107); Glucose 289 mg/dL (74-99); Non-African American GFR(CKD) >90 (>60 ml/min/1.73 sqM); Potassium 4.8 mmol/L (3.5-5.1); Sodium 136 mmol/L (137-145)
[2019-08-03] MEDS: CLOTRIMAZOLE 1% CREAM 15 GM TUBE TOPICAL SCH (08:45)
[2019-08-03] MEDS ORDERED: LEFLUNOMIDE 20 MG TAB PO SCH (09:00)
[2019-08-03] MEDS ORDERED: ASPIRIN 325 MG TAB PO SCH (09:00)
[2019-08-03] MEDS ORDERED: AMIODARONE 200 MG TAB PO SCH (09:00)
[2019-08-03] MEDS ORDERED: predniSONE 1 MG TAB PO SCH (09:00)
--- NOTE | 2019-08-03 10:06 | P.CRDCN ---
History of Present Illness History of present illness: This is Dr. Murphy dictating a consult on this patient, Rosalva The patient was interviewed and examined IMPRESSION / ASSESSMENT: Patient presenting with shortness of breath and orthopnea History of mitral regurgitation Atrial fibrillation despite 200 mg of amiodarone Mildly elevated BNP and and rate control of atrial fibrillation PLAN: Stop amiodarone Check TSH 2-D echo and Doppler study HPI patient presenting with shortness of breath the last 3 days. Past history of atrial fibrillation status post electrical cardioversion Currently in atrial fibrillation with mild RVR Symptoms consistent with orthopnea Normal troponin BNP around 2500 Treated with IV Lasix 40 mg in the ER Twelve-lead ECG shows atrial fibrillation with a ventricular rate of 104 beats a minute ROS: No fever chills or rigors, no cough, phlegm or expectoration, no nausea, vomiting or diarrhea, no hematuria, dysuria, no musculoskeletal complaints, no strokes or seizures, no skin lesions. EXAMINATION: Blood pressure 124 77 mmHg pulse rate in the 80s and 90s afebrile Systolic murmur consistent with mitral regurgitation Breath sounds are diminished on the right side Lower extremity no edema ?JVD, thick neck REVIEW OF LABS, ECG & MEDICAL DATA Past history diabetes Past history of persistent atrial fibrillation and electrical cardioversion in 2018 Currently on amiodarone Diabetic on insulin Past history of dyslipidemia and hypertension Twelve-lead ECG is reviewed and shows atrial fibrillation with ventricular rate of 140 beats a minute ERIK in 2018 showed moderate to severe mitral regurgitation Past Medical History Past Medical History: Atrial Fibrillation, Coronary Artery Disease (CAD), Cancer, Diabetes Mellitus, Hyperlipidemia, Hypertension, Musculoskeletal Disorder, Neurologic Disorder, Osteoarthritis (OA), Pneumonia, Renal Disease, Rheumatoid Arthritis (RA), Skin Disorder, Thyroid Disorder Additional Past Medical History / Comment(s): Morbid obesity, chronic atrial fibrillation, diabetes mellitus type 2, hypertension, hyperlipidemia, spinal stenosis, osteoarthritis, hypothyroidism, hypertension, history of skin melanoma, history of bursitis with MRSA post I&D, rheumatoid arthritis, Sjogren's disease, 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 without any indication of ILD related to RA, History of Any Multi-Drug Resistant Organisms: MRSA Date of last positivie culture/infection: 02/27/14 MDRO Source:: Sputum Past Surgical History: Back Surgery, Breast Surgery, Heart Catheterization, J oint Replacement, Orthopedic Surgery Additional Past Surgical History / Comment(s): Bilateral cataracts with lens implants, arthroscopies to lt wrist, gualberto knees, gualberto ankles, gualberto hips, lt hip replacment and redone, L/R shoulder sxs, rt breast bx-benign, egd/colonoscopy, skin cancer removal L arm. Past Anesthesia/Blood Transfusion Reactions: No Reported Reaction Past Psychological History: No Psychological Hx Reported Additional Psychological History / Comment(s): Pt resides with her spouse. pt nataly aponte. No home care.uses cane when up Smoking Status: Former smoker Past Alcohol Use History: None Reported Additional Past Alcohol Use History / Comment(s): Pt started smoking in college and QUIT SMOKING in 1969 Past Drug Use History: None Reported - Past Family History Mother Family Medical History: CVA/TIA Additional Family Medical History / Comment(s): RUPTURED BOWEL Father Family Medical History: Cancer, Pneumonia Additional Family Medical History / Comment(s): ASPIRATIVE PNA Sister(s) Additional Family Medical History / Comment(s): at age 34 with lupus Medications and Allergies Home Medications Medication Instructions Recorded Confirmed Type Gabapentin [Neurontin] 1,200 mg PO AC-TID 02/27/14 08/02/19 History Lansoprazole [Prevacid] 15 mg PO HS 02/27/14 08/02/19 History hydrOXYzine HCL [Atarax] 50 mg PO HS 04/12/16 08/02/19 History Folic Acid 1 mg PO DAILY 08/13/16 08/02/19 History Latanoprost [Xalatan 0.005%] 1 drop BOTH EYES HS 08/11/17 08/02/19 History Pilocarpine HCl [Salagen] 7.5 mg PO TID@0800,1200,1800 08/11/17 08/02/19 History metFORMIN HCL [Glucophage] 1,000 mg PO AC-BID 08/11/17 08/02/19 History Nitroglycerin Sl Tabs [Nitrostat] 0.4 mg SUBLINGUAL Q5M PRN #30 tab 08/13/17 08/02/19 Rx Apixaban [Eliquis] 5 mg PO BID #60 tab 08/30/17 08/02/19 Rx Adalimumab [Humira Pediatric 40 mg SQ WE 09/25/18 08/02/19 History Crohn's] Furosemide [Lasix] 80 mg PO DAILY 09/25/18 08/02/19 History HYDROcodone/APAP 10-325MG [Rowan 1 tab PO Q6HR 09/25/18 08/02/19 History 10-325] Insulin Degludec [Tresiba] 60 units SQ HS 09/25/18 08/02/19 History Insulin Lispro [humaLOG Kwikpen] See Protocol SQ AC-TID 09/25/18 08/02/19 His tory Tolterodine Tartrate [Detrol LA] 4 mg PO DAILY@1200 09/25/18 08/02/19 History Gabapentin 1,600 mg PO HS 11/14/18 08/02/19 History Leflunomide 20 mg PO DAILY 11/14/18 08/02/19 History Methocarbamol [Robaxin] 750 mg PO TID@1200,1800,2100 11/14/18 08/02/19 History predniSONE 4 mg PO DAILY 11/14/18 08/02/19 History tiZANidine [Zanaflex] 4 - 8 mg PO HS PRN 11/15/18 08/02/19 History Aspirin EC [Ecotrin] 325 mg PO DAILY 11/19/18 08/02/19 History Calcium Carbonate/Vitamin D3 1 tab PO BID 11/19/18 08/02/19 History [Calcium 500-Vit D3 200 Tablet] Clotrimazole [Lotrimin AF] 1 applic TOPICAL DAILY 11/19/18 08/02/19 History Glucosam/Cristian-Msm1/C/Finn/Bosw 1 tab PO DAILY 11/19/18 08/02/19 History [Glucosamine-Chondroitin Tablet] Metoprolol Tartrate [Lopressor] 50 mg PO BID@0800,2100 11/19/18 08/02/19 History Multivitamins, Thera [Multivitamin 1 tab PO DAILY 11/19/18 08/02/19 History (formulary)] Amiodarone [Cordarone] 200 mg PO DAILY #30 tab 11/23/18 08/02/19 Rx Diltiazem Oral [Cardizem*] 90 mg PO TID #90 tab 11/23/18 08/02/19 Rx Levothyroxine Sodium [Synthroid] 250 mcg PO DAILY 08/02/19 08/02/19 History Metoprolol Tartrate [Lopressor] 25 mg PO DAILY@1200 08/02/19 08/02/19 History Allergies Allergy/AdvReac Type Severity Reaction Status Date / Time adhesive Allergy Rash/Hives Verified 08/02/19 11:25 cephalexin [From Keflex] Allergy Rash/Hives Verified 08/02/19 11:25 grass pollen Allergy Unknown Verified 08/02/19 11:25 mold Allergy Unknown Verified 08/02/19 11:25 Sulfa (Sulfonamide Allergy Rash/Hives Verified 08/02/19 11:25 Antibiotics) newspaper ink Allergy Mild Unknown Uncoded 08/02/19 11:25 Physical Exam Vitals: Vital Signs Temp Pulse Pulse Resp BP BP Pulse Ox 08/03/19 07:00 98.0 F 81 18 134/76 95 08/03/19 02:34 97.5 F L 72 18 131/79 97 08/02/19 19:45 97.8 F 93 12 125/77 99 08/02/19 15:00 97.9 F 101 H 18 133/69 97 08/02/19 14:22 97.9 F 105 H 18 134/86 98 08/02/19 12:30 17 126/63 98 08/02/19 12:00 76 18 114/76 97 08/02/19 11:30 78 18 115/61 97 08/02/19 11:00 70 17 116/72 93 L 08/02/19 10:30 84 17 122/71 96 Intake and Output 08/02/19 08/03/19 08/03/19 22:59 06:59 14:59 Other: Voiding Method Toilet Toilet # Voids 1 1 Weight 129.274 kg Results 08/03/19 07:43 08/03/19 07:43 Cardiac Enzymes 08/02/19 Range/Units 08:59 Troponin I 0.015 (0.000-0.034) ng/mL CBC 08/03/19 Range/Units 07:43 WBC 5.0 (3.8-10.6) k/uL RBC 4.20 (3.80-5.40) m/uL Hgb 11.6 (11.4-16.0) gm/dL Hct 37.9 (34.0-46.0) % Plt Count 186 (150-450) k/uL Comprehensive Metabolic Panel 08/03/19 Range/Units 07:43 Sodium 136 L (137-145) mmol/L Potassium 4.8 (3.5-5.1) mmol/L Chloride 101 (98-107) mmol/L Carbon Dioxide 28 (22-30) mmol/L BUN 14 (7-17) mg/dL Creatinine 0.52 (0.52-1.04) mg/dL Glucose 289 H (74-99) mg/dL Calcium 9.4 (8.4-10.2) mg/dL Current Medications Generic Name Dose Route Start Last Admin Trade Name Freq PRN Reason Stop Dose Admin Acetaminophen 650 mg 08/02/19 10:52 08/02/19 12:59 Tylenol Tab PO 650 mg Q6HR PRN Administration Mild Pain or Fever > 100.5 Hydrocodone Bitart/Acetaminophen 1 each 08/02/19 18:00 08/03/19 06:18 Rowan 10 PO 1 each Q6HR ASHUTOSH Administration Alprazolam 0.25 mg 08/02/19 23:44 Xanax PO TID PRN Anxiety Apixaban 5 mg 08/02/19 21:00 08/03/19 07:40 Eliquis PO 5 mg BID ASHUTOSH Administration Aspirin 81 mg 08/04/19 09:00 Aspirin PO DAILY ASHUTOSH Calcium Carbonate 1 each 08/02/19 21:00 08/03/19 07:40 Oscal 500+D PO 1 each BID ASHUTOSH Administration Clotrimazole 1 applic 08/03/19 09:00 08/03/19 08:45 Lotrimin Cream TOPICAL 1 applic DAILY ASHUTOSH Administration Diltiazem HCl 90 mg 08/02/19 22:00 08/03/19 07:39 Cardizem Oral PO 90 mg TID ASHUTOSH Administration Folic Acid 1 mg 08/03/19 09:00 08/03/19 07:39 Folic Acid PO 1 mg DAILY ASHUTOSH Administration Furosemide 80 mg 08/03/19 09:00 08/03/19 07:40 Lasix PO 80 mg DAILY ASHUTOSH Administration Hydromorphone HCl 0.5 mg 08/02/19 23:44 Dilaudid IVP Q6HR PRN Severe Pain Hydroxyzine HCl 50 mg 08/02/19 21:00 08/02/19 21:50 Atarax PO 50 mg HS ASHUTOSH Administration Sodium Chloride 1,000 mls @ 20 mls/hr 08/02/19 11:00 08/02/19 12:58 Saline 0.9% IV 20 mls/hr .Q24H ASHUTOSH Administration Insulin Aspart 0 unit 08/02/19 17:30 08/03/19 07:38 Novolog SQ 8 unit ACHS ASHUTOSH Administration Protocol Insulin Detemir 60 unit 08/02/19 21:00 08/02/19 21:50 Levemir SQ 60 unit HS ASHUTOSH Administration Latanoprost 1 drops 08/02/19 21:00 08/02/19 21:51 Xalatan 0.005% BOTH EYES 1 drops HS ASHUTOSH Administration Leflunomide 20 mg 08/03/19 09:00 08/03/19 08:46 Arava PO 20 mg DAILY ASHUTOSH Administration Levothyroxine Sodium 250 mcg 08/03/19 06:30 08/03/19 06:19 Synthroid PO 250 mcg 0630 ASHUTOSH Administration Metformin HCl 1,000 mg 08/02/19 17:30 08/03/19 07:39 Glucophage PO 1,000 mg AC-BID ASHUTOSH Administration Methocarbamol 750 mg 08/02/19 18:00 08/02/19 21:51 Robaxin PO 750 mg TID@1200,1800,2100 ASHUTOSH Administration Methylprednisolone Sodium Succinate 60 mg 08/03/19 00:00 08/03/19 06:18 Solu-Medrol IV 60 mg Q6HR ASHUTOSH Administration Metoprolol Tartrate 50 mg 08/03/19 10:15 Lopressor PO Q8H ASHUTOSH Multivitamins 1 each 08/03/19 09:00 08/03/19 07:40 Theragran PO 1 each DAILY ASHUTOSH Administration Naloxone HCl 0.2 mg 08/02/19 10:52 Narcan IV Q2M PRN Opioid Reversal Nitroglycerin 0.4 mg 08/02/19 16:08 Nitrostat SUBLINGUAL Q5M PRN Chest Pain Non-Formulary Medication 1 tab 08/03/19 09:00 08/03/19 07:48 Glucosam/Cristian-Msm1/C/Finn/Bosw [Glucosamine-Chondroitin Tablet] PO Not Given DAILY ASHUTOSH *Pom Brand* 1,200 mg 08/02/19 17:30 08/03/19 07:38 Neurontin ( PO 1,200 mg Gabapentin) 800 Mg AC-TID ASHUTOSH Administration Tablet *Pom Brand* 1,600 each 08/02/19 21:00 08/02/19 22:43 Neurontin ( PO 1,600 each Gabapentin) 800 Mg HS ASHUTOSH Administration Tablet Oxybutynin Chloride 10 mg 08/03/19 12:00 Ditropan Xl PO DAILY@1200 ASHUTOSH Pantoprazole Sodium 40 mg 08/02/19 21:00 08/02/19 21:50 Protonix PO 40 mg HS ASHUTOSH Administration Pilocarpine HCl 7.5 mg 08/02/19 18:00 08/03/19 07:40 Salagen PO 7.5 mg TID@0800,1200,1800 ASHUTOSH Administration Tizanidine HCl 4 mg 08/02/19 16:08 Zanaflex PO HS PRN Muscle Spasm Intake and Output 08/02/19 08/03/19 08/03/19 22:59 06:59 14:59 Other: Voiding Method Toilet Toilet # Voids 1 1 Weight 129.274 kg 08/03/19 07:43 08/03/19 07:43
--- NOTE | 2019-08-03 10:52 | P.PN ---
Subjective Progress Note Date: 08/03/19 Principal diagnosis: Acute on chronic shortness of breath 78-year-old morbidly obese female patient with known history of chronic atrial fibrillation and rheumatoid arthritis maintained on immunosuppressive agents coming into the hospital because of some limited shortness of breath over the past few days. No significant hypoxemia. No pleurisy. No hemoptysis. Shortness of breath essentially exertional. No orthopnea. No proximal nocturnal dyspnea. No previous history of DVT or pulmonary embolism. No indication for any form of chronic interstitial lung disease based on the most recent computed tomography scan of the chest that was done 2018. At that time the patient also was noted to have recovery of previously noted mediastinal lymph nodes. The patient's white cell count of 8.8. Hemoglobin is 11.9. ProBNP is 2510. All of the LFTs are within normal limits. Electrodes are also within normal limits. Renal function is within normal limits. The patient's c hest x-ray showing some mild cardiomegaly without any acute cardio pulmonary process the EKG is consistent with atrial fibrillation and old anterior wall myocardial infarction with Q waves and left posterior fascicular block. The patient is seen today 08/03/2019 in follow-up on the regular medical floor. She is awake and alert in no acute distress. He is maintaining O2 saturations in the 90s on 2 L/m per nasal cannula. She is short of breath with exertion only. She's been afebrile. Hemodynamically stable. White count 5.0. Hemoglobin 11.6. Sodium 136. Potassium 4.8. Creatinine 0.52. She is currently on IV Solu-Medrol. Anticoagulated with Eliquis. Objective - Vital Signs Vital signs: Vital Signs Temp 98.0 F 08/03/19 07:00 Pulse 81 08/03/19 07:00 Resp 18 08/03/19 07:00 BP 134/76 08/03/19 07:00 Pulse Ox 95 08/03/19 07:00 Intake & Output 08/02/19 08/03/19 08/03/19 18:59 06:59 18:59 Weight 129.274 kg Other: Voiding Method Toilet Toilet # Voids 1 - Exam GENERAL: Pleasant 78-year-old female patient, alert and oriented x3, not in any acute distress. Well developed, well nourished. HEENT: Pupils are round and equally reacting to light. EOMI. No scleral icterus. No conjunctival pallor. Normocephalic, atraumatic. No pharyngeal erythema. No thyromegaly. CARDIOVASCULAR: S1 and S2 present. No murmurs, rubs, or gallops. PULMONARY: Chest is clear to auscultation, no wheezing or crackles. ABDOMEN: Soft, nontender, nondistended, normoactive bowel sounds. No palpable organomegaly. MUSCULOSKELETAL: No joint swelling or deformity. EXTREMITIES: No cyanosis, clubbing, or pedal edema. NEUROLOGICAL: Gross neurological examination did not reveal any focal deficits. SKIN: No rashes. - Labs CBC & Chem 7: 08/03/19 07:43 08/03/19 07:43 Labs: Abnormal Lab Results - Last 24 Hours (Table) 08/02/19 08/02/19 08/02/19 Range/Units 14:52 16:44 21:01 MCHC (31.0-37.0) g/dL Lymphocytes # (1.0-4.8) k/uL Sodium (137-145) mmol/L Glucose (74-99) mg/dL POC Glucose (mg/dL) 178 H 198 H 187 H (75-99) mg/dL 08/03/19 08/03/19 08/03/19 Range/Units 07:31 07:43 07:43 MCHC 30.6 L (31.0-37.0) g/dL Lymphocytes # 0.7 L (1.0-4.8) k/uL Sodium 136 L (137-145) mmol/L Glucose 289 H (74-99) mg/dL POC Glucose (mg/dL) 318 H (75-99) mg/dL Assessment and Plan Assessment: 1 chronic dyspnea/shortness of breath, multifactorial, without any acute abno rmalities identified on today's evaluation 2 chronic atrial fibrillation rate controlled on long-term and to coagulation with Eliquis 3 history of rheumatoid arthritis maintained on immunosuppressive agents 4 history of Sjogren's disease 5 hypertension 6 hyperlipidemia 7 obesity with a BMI of 35.6 8 diabetes mellitus type 2 9 coronary artery disease, nonobstructive 10 hypothyroidism 11 osteoarthritis 12 history of skin melanoma, resected 13 history of bursitis with MRSA, postprandial and treated 13 history of spinal stenosis Plan The patient was seen and evaluated by Dr. Crowe She is stable from the pulmonary standpoint Titrate down the FiO2 Continue steroids Echocardiogram pending We'll continue to follow I, the cosigning physician, performed a history & physical examination of the patient. Lungs sounds are clear. Maintaining good O2 saturations in the 90s on 2 L/m per nasal cannula. I discussed the assessment and plan of care with my nurse practitioner, Suze Rdz. I attest to the above note as dictated by her.
[2019-08-03] MEDS: SODIUM CHLORIDE 0.9% 1,000 ML IV SCH (11:06)
[2019-08-03 11:22] LABS: Glucose,Whole Blood 342 mg/dL (75-99)
[2019-08-03] MEDS ORDERED: METOPROLOL TARTRATE 25 MG TAB PO SCH (12:00)
[2019-08-03] MEDS: METHOCARBAMOL 750 MG TAB PO SCH ×3 (12:12→21:27)
[2019-08-03] MEDS: OXYBUTYNIN XL 5 MG TAB.ER.24 PO SCH (12:12)
--- NOTE | 2019-08-03 15:38 | ECHOF ---
Referral Reason:chf, mitral regurg MEASUREMENTS -------- HEIGHT: 190.5 cm WEIGHT: 129.3 kg BP: 134/76 IVSd: 1.5 cm (0.6 - 1.1) LVIDd: 4.5 cm (3.9 - 5.3) LVPWd: 1.4 cm (0.6 - 1.1) IVSs: 2.1 cm LVIDs: 3.0 cm LVPWs: 1.8 cm LA Diam: 4.1 cm (2.7 - 3.8) RVIDd: 2.8 cm (< 3.3) LAESV Index (A-L): 43.82 ml/m Ao Diam: 3.2 cm (2.0 - 3.7) AV Cusp: 2.2 cm (1.5 - 2.6) EPSS: 1.1 cm AR PHT: 557 ms RAP: 5.00 mmHg RVSP: 40.44 mmHg MV EF SLOPE: 32.91 mm/s (70 - 150) MV EXCURSION: 10.33 mm (> 18.000) FINDINGS -------- Atrial fibrillation. This was a technically adequate study. The left ventricular size is normal. There is moderate concentric left ventricular hypertrophy. O verall left ventricular systolic function is normal with, an EF between 60 - 65 %. The right ventricle is normal in size. LA is severely dilated >40 ml/m2 The right atrium is normal in size. Interatrial and interventricular septum intact. There is mild aortic valve sclerosis. The mitral valve leaflets are mildly thickened. Moderate mitral annular calcification present. Mi ld mitral regurgitation is present. The peak and mean MV gradients are 19.72mmHg 7.23mmHg as measu red by doppler. Mild tricuspid regurgitation present. There is mild pulmonary hypertension. The right ventricular systolic pressure, as measured by Doppler, is 40.44mmHg. Trace/mild (physiologic) pulmonic regurgitation. The aortic root size is normal. IVC Not well visulized. There is no pericardial effusion. CONCLUSIONS -------- 1. Atrial fibrillation. 2. This was a technically adequate study. 3. The left ventricular size is normal. 4. There is moderate concentric left ventricular hypertrophy. 5. Overall left ventricular systolic function is normal with, an EF between 60 - 65 %. 6. The right ventricle is normal in size. 7. LA is severely dilated >40 ml/m2 8. The right atrium is normal in size. 9. Interatrial and interventricular septum intact. 10. There is mild aortic valve sclerosis. 11. The mitral valve leaflets are mildly thickened. 12. Moderate mitral annular calcification present. 13. Mild mitral regurgitation is present. 14. The peak and mean MV gradients are 19.72mmHg 7.23mmHg as measured by doppler. 15. Mild tricuspid regurgitation present. 16. There is mild pulmonary hypertension. 17. The right ventricular systolic pressure, as measured by Doppler, is 40.44mmHg. 18. Trace/mild (physiologic) pulmonic regurgitation. 19. The aortic root size is normal. 20. IVC Not well visulized. 21. There is no pericardial effusion. WEB APPLICATIONS PROGRAMMER: Judith Mesa RDCS
[2019-08-03 16:31] LABS: Glucose,Whole Blood 314 mg/dL (75-99)
--- NOTE | 2019-08-03 19:50 | PN ---
PROGRESS NOTE DATE OF SERVICE: 08/02/2009 I am covering for Dr. Hart. 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 The patient also had atrial fibrillation. A 2D echo with Doppler was also done which was evaluated by Cardiology, Pulmonary and Cardiology following the patient closely. Ejection fraction found to be 60-65 percent and mild valvular abnormalities also noted with a moderate mitral valve calcification. LA was severely dilated 40 mm. Mitral valve gradient was also noted. PAST MEDICAL HISTORY: Reviewed. REVIEW OF SYSTEMS: Cardiovascular is as mentioned earlier. Respiratory as mentioned earlier. GI no nausea. no dysuria. NERVOUS SYSTEM: No numbness or weakness. CURRENT MEDICATIONS: Reviewed and include: 1. Tylenol 650 q.6 p.r.n. 2. Vassar 10 mg q.h.s. 3. Xanax 0.25 t.i.d. 4. Eliquis 5 mg b.i.d. 5. Aspirin 81 mg daily. 6. Os-Florencio with vitamin D 1 p.o. b.i.d. 7. Lotrimin daily. 8. Cardizem 90 mg p.o. t.i.d. 9. Folic acid 1 mg daily. 10.Lasix 80 mg p.o. daily. 11.Dilaudid p.r.n. 12.Atarax 50 mg q.h.s. 13.NovoLog. 14.Levemir 60 units subcu q.h.s. 15.Xalatan 0.05 1 drop both eyes. 16.Arava 20 mg p.o. daily. 17.Synthroid 250 mcg p.o. 18.Glucophage 1000 mg p.o. daily. 19.Robaxin 750 p.o. t.i.d. 20.Solu-Medrol 60 IV q.6h. 21.Lopressor 50 mg q.h.s. 22.Multivitamins. 23.Narcan. 24.Nitrostat. 25.Protonix 40 mg. 26.Salagen. 27.Zanaflex 4 mg q.h.s. p.r.n. PHYSICAL EXAM: Patient is alert, oriented x3. Pulse 78. Blood pressure 110/60. Respirations 18. Temperature 98 degrees, pulse ox 94% on 3 L. HEENT: Conjunctivae normal. NECK: No JVD. CARDIOVASCULAR: S1, S2 muffled. RESPIRATION: Breath sounds diminished in the bases. A few scattered rhonchi and crackles. ABDOMEN: Soft, obese. LEGS no edema. No swelling. NERVOUS SYSTEM: No focal deficits. LABS: Accu-Cheks 318, 342. Other labs are noted. ASSESSMENT: 1. 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 2. Atrial fibrillation with fast ventricular rate. 3. Hyponatremia. 4. Hypomagnesemia. 5. History of chronic atrial fibrillation. 6. Coronary artery disease. 7. Diabetes type 2. 8. Hypertension. 9. Hyperlipidemia. 10.Degenerative joint disease. 11.History of pneumonia. 12.History of skin disorder. 13.History of morbid obesity. 14.History of spinal stenosis. 15.History of degenerative joint disease. 16.History of hypothyroidism. 17.History of skin melanoma. 18.History of bursitis MRSA. 19.History of Sjogren's disease. 20.History of mediastinal lymphadenopathy recovered. 21.History of MRSA. 22.History of cardiac ablation. 23.History of bilateral cataracts. 24.History of degenerative joint disease. 25.Remote history of nicotine dependence. 26.FULL CODE. RECOMMENDATIONS AND DISCUSSION: Recommend to continue current medications, continue to monitor. Symptomatic treatment. Otherwise at this time I would recommend continue with monitor the blood sugars. Continue with IV steroids. Continue the rest of the medications. Prognosis guarded. Otherwise, closely follow. See orders for details. Further recommendations to follow. MMODL / IJN: [id number] /
[2019-08-03 21:07] LABS: Glucose,Whole Blood 355 mg/dL (75-99)
[2019-08-03] MEDS: hydrOXYzine HCL 25 MG TAB PO SCH (21:26)
[2019-08-03] MEDS: PANTOPRAZOLE 40 MG TABLET PO SCH (21:26)
[2019-08-03] MEDS: INSULIN DETEMIR (LEVEMIR) 100 UNIT/ML SYR SQ SCH (21:27)
[2019-08-03] MEDS: LATANOPROST 0.005% OPHTH DROPS 2.5 ML BTL BOTH EYES SCH (21:30)
[2019-08-04] MEDS: HYDROmorphone 0.5 MG/0.5 ML SYRINGE IVP PRN ×2 (03:38→10:15)
[2019-08-04] MEDS: HYDROcodone/APAP 10-325MG 1 EACH TAB PO SCH ×4 (05:35→23:25)
[2019-08-04] MEDS: methylPREDNISolone SOD SUCCI 125 MG/2 ML VIAL IV SCH (05:36)
[2019-08-04] MEDS: LEVOTHYROXINE 125 MCG TAB PO SCH (05:36)
[2019-08-04 07:15] LABS: Glucose,Whole Blood 320 mg/dL (75-99)
[2019-08-04] MEDS: DILTIAZEM ORAL 30 MG TAB PO SCH ×3 (07:27→21:49)
[2019-08-04] MEDS: INSULIN ASPART (NovoLOG) 100 UNIT/ML VIAL SQ SCH ×4 (07:27→21:49)
[2019-08-04] MEDS: metFORMIN 500 MG TAB PO SCH ×2 (07:27→16:38)
[2019-08-04] MEDS: CALCIUM CARB-VIT D 500MG-200UN 1 EACH TAB PO SCH ×2 (07:28→21:48)
[2019-08-04] MEDS: APIXABAN 5 MG TAB PO SCH ×2 (07:28→21:48)
[2019-08-04] MEDS: ASPIRIN 81 MG PO SCH (07:28)
[2019-08-04] MEDS: MULTIVITAMINS, THERA 1 EACH TAB PO SCH (07:28)
[2019-08-04] MEDS: FOLIC ACID 1 MG TAB PO SCH (07:28)
[2019-08-04] MEDS: METOPROLOL TARTRATE 50 MG TAB PO SCH ×3 (07:28→23:25)
[2019-08-04] MEDS: GABAPENTIN PO SCH ×4 (07:29→21:50)
[2019-08-04] MEDS: PILOCARPINE 5 MG TAB PO SCH ×3 (07:32→17:26)
[2019-08-04] MEDS: CLOTRIMAZOLE 1% CREAM 15 GM TUBE TOPICAL SCH (07:36)
[2019-08-04] MEDS: FUROSEMIDE 80 MG TAB PO SCH (07:36)
[2019-08-04] MEDS: NON FORMULARY DRUG (Glucosam/Chon-Msm1/C/Mang/Bosw [Glucosamine-Chondroitin Tablet] 1 TAB) PO SCH (07:38)
[2019-08-04 08:01] LABS: Basophils % (A) 0 %; Eosinophils # (A) 0.1 k/uL (0-0.7); Eosinophils % (A) 1 %; HCT 36.7 % (34.0-46.0); HGB 11.7 gm/dL (11.4-16.0); Hypochromasia Moderate; Lymphocytes # (A) 1.1 k/uL (1.0-4.8); Lymphocytes % (A) 10 %; MCHC 31.8 g/dL (31.0-37.0); MCV 91.4 fL (80.0-100.0); Mean Platelet Volume 7.9; Monocytes # (A) 0.4 k/uL (0-1.0); Monocytes % (A) 4 %; Neutrophils # (A) 9.5 k/uL (1.3-7.7); Neutrophils % (A) 86 %; Platelet Count 204 k/uL (150-450); RBC 4.01 m/uL (3.80-5.40); RDW 15.4 % (11.5-15.5); WBC 11.2 k/uL (3.8-10.6)
[2019-08-04 08:10] LABS: African American GFR (CKD) >90 (>60 ml/min/1.73 sqM); Anion Gap 10 mmol/L; Blood Urea Nitrogen 22 mg/dL (7-17); Calcium 9.5 mg/dL (8.4-10.2); Carbon Dioxide 25 mmol/L (22-30); Chloride 98 mmol/L (98-107); Glucose 322 mg/dL (74-99); Non-African American GFR(CKD) 82 (>60 ml/min/1.73 sqM); Potassium 4.7 mmol/L (3.5-5.1); Sodium 133 mmol/L (137-145)
[2019-08-04 11:30] LABS: Glucose,Whole Blood 381 mg/dL (75-99)
--- NOTE | 2019-08-04 11:44 | P.PN ---
Subjective Progress Note Date: 08/04/19 The patient is a 78-year-old female with past medical history of persistent atrial fibrillation, mild coronary artery disease, diabetes mellitus, hypertension, hyperlipidemia, and rheumatoid lung disease, who presented to the hospital with increased shortness of breath. Today she states she is doing well. She does not have any shortness of breath at rest, however she is on 2 L nasal cannula. She denies any chest pain, chest pressure, palpitations, dizziness, or lightheadedness. Echocardiogram shows LV function at 60-65% with moderate LVH and without significant valvular abnormalities GENERAL: Well-appearing, well-nourished and in no acute distress. NECK: Supple without JVD or thyromegaly. LUNGS: Breath sounds clear to auscultation. Diminished in the bases. Respiration equal and unlabored. No wheezes, rales or rhonchi. HEART: Irregular rate and rhythm. Soft systolic murmur. No rubs or gallops. S1 and S2 heard. EXTREMITIES: Normal range of motion. No clubbing or cyanosis. Peripheral pulses intact and strong. Mild lower extremity edema TELEMETRY: Rate controlled atrial fibrillation overnight LABS: WBC 11.2, hemoglobin 11.7, hematocrit 36.7, platelet 204, sodium 133, potassium 4.7, BUN 22, creatinine 0.72, IMPRESSION: #1 shortness of breath, multifactorial #2 congestive heart failure, diastolic #3 persistent atrial fibrillation, rate controlled, on anticoagulation with Eliquis #4 valvular heart disease, mitral regurgitation #5 hypertension #6 history of coronary artery disease #7 history of diabetes mellitus #8 history of dyslipidemia #9 morbid obesity PLAN: Continue current medication regimen, including diuretics. No additional recommendations at this time. Objective - Vital Signs Vital signs: Vital Signs Temp 98.1 F 08/04/19 07:00 Pulse 85 08/04/19 07:00 Resp 19 08/04/19 07:00 BP 125/67 08/04/19 07:00 Pulse Ox 96 08/04/19 07:00 Intake & Output 08/03/19 08/04/19 08/04/19 18:59 06:59 18:59 Other: Voiding Method Toilet Toilet Toilet # Voids 4 3 - Labs CBC & Chem 7: 08/04/19 07:27 08/04/19 07:27 Labs: Abnormal Lab Results - Last 24 Hours (Table) 08/03/19 08/03/19 08/04/19 Range/Units 16:30 21:05 07:14 WBC (3.8-10.6) k/uL Neutrophils # (1.3-7.7) k/uL Sodium (137-145) mmol/L BUN (7-17) mg/dL Glucose (74-99) mg/dL POC Glucose (mg/dL) 314 H 355 H 320 H (75-99) mg/dL 08/04/19 08/04/19 Range/Units 07:27 07:27 WBC 11.2 H (3.8-10.6) k/uL Neutrophils # 9.5 H (1.3-7.7) k/uL Sodium 133 L (137-145) mmol/L BUN 22 H (7-17) mg/dL Glucose 322 H (74-99) mg/dL POC Glucose (mg/dL) (75-99) mg/dL
--- NOTE | 2019-08-04 11:49 | P.PN ---
Subjective Progress Note Date: 08/04/19 Principal diagnosis: Acute on chronic shortness of breath 78-year-old morbidly obese female patient with known history of chronic atrial fibrillation and rheumatoid arthritis maintained on immunosuppressive agents coming into the hospital because of some limited shortness of breath over the past few days. No significant hypoxemia. No pleurisy. No hemoptysis. Shortness of breath essentially exertional. No orthopnea. No proximal nocturnal dyspnea. No previous history of DVT or pulmonary embolism. No indication for any form of chronic interstitial lung disease based on the most recent computed tomography scan of the chest that was done 2018. At that time the patient also was noted to have recovery of previously noted mediastinal lymph nodes. The patient's white cell count of 8.8. Hemoglobin is 11.9. ProBNP is 2510. All of the LFTs are within normal limits. Electrodes are also within normal limits. Renal function is within normal limits. The patient's c hest x-ray showing some mild cardiomegaly without any acute cardio pulmonary process the EKG is consistent with atrial fibrillation and old anterior wall myocardial infarction with Q waves and left posterior fascicular block. The patient is seen today 08/03/2019 in follow-up on the regular medical floor. She is awake and alert in no acute distress. He is maintaining O2 saturations in the 90s on 2 L/m per nasal cannula. She is short of breath with exertion only. She's been afebrile. Hemodynamically stable. White count 5.0. Hemoglobin 11.6. Sodium 136. Potassium 4.8. Creatinine 0.52. She is currently on IV Solu-Medrol. Anticoagulated with Eliquis. The patient is seen today 08/04/2019 in follow-up on the regular medical floor. She is currently resting comfortably in bed. Awake and alert in no acute distress. Maintaining O2 saturations in the mid to upper 90s on 2 L/m per nasal cannula. She's afebrile. Hemodynamically stable. White count 11.2. Hemoglobin 11.7. Sodium 133. Potassium 4.7. Creatinine 0.72. Lung sounds are clear. Objective - Vital Signs Vital signs: Vital Signs Temp 98.1 F 08/04/19 07:00 Pulse 85 08/04/19 07:00 Resp 19 08/04/19 07:00 BP 125/67 08/04/19 07:00 Pulse Ox 96 08/04/19 07:00 Intake & Output 08/03/19 08/04/19 08/04/19 18:59 06:59 18:59 Other: Voiding Method Toilet Toilet Toilet # Voids 4 3 - Exam GENERAL: Pleasant 78-year-old female patient, alert and oriented x3, not in any acute distress. Well developed, well nourished. HEENT: Pupils are round and equally reacting to light. EOMI. No scleral icterus. No conjunctival pallor. Normocephalic, atraumatic. No pharyngeal erythema. No thyromegaly. CARDIOVASCULAR: S1 and S2 present. No murmurs, rubs, or gallops. PULMONARY: Chest is clear to auscultation, no wheezing or crackles. ABDOMEN: Soft, nontender, nondistended, normoactive bowel sounds. No palpable organomegaly. MUSCULOSKELETAL: No joint swelling or deformity. EXTREMITIES: No cyanosis, clubbing, or pedal edema. NEUROLOGICAL: Gross neurological examination did not reveal any focal deficits. SKIN: No rashes. - Labs CBC & Chem 7: 08/04/19 07:27 08/04/19 07:27 Labs: Abnormal Lab Results - Last 24 Hours (Table) 08/03/19 08/03/19 08/04/19 Range/Units 16:30 21:05 07:14 WBC (3.8-10.6) k/uL Neutrophils # (1.3-7.7) k/uL Sodium (137-145) mmol/L BUN (7-17) mg/dL Glucose (74-99) mg/dL POC Glucose (mg/dL) 314 H 355 H 320 H (75-99) mg/dL 08/04/19 08/04/19 08/04/19 Range/Units 07:27 07:27 11:29 WBC 11.2 H (3.8-10.6) k/uL Neutrophils # 9.5 H (1.3-7.7) k/uL Sodium 133 L (137-145) mmol/L BUN 22 H (7-17) mg/dL Glucose 322 H (74-99) mg/dL POC Glucose (mg/dL) 381 H (75-99) mg/dL Assessment and Plan Assessment: 1 chronic dyspnea/shortness of breath, multifactorial, with acute on chronic diastolic congestive heart failure without any acute abnormalities identified on today's evaluation 2 chronic atrial fibrillation rate controlled on long-term and to coagulation with Eliquis 3 history of rheumatoid arthritis maintained on immunosuppressive agents 4 history of Sjogren's disease 5 hypertension 6 hyperlipidemia 7 obesity with a BMI of 35.6 8 diabetes mellitus type 2 9 coronary artery disease, nonobstructive 10 hypothyroidism 11 osteoarthritis 12 history of skin melanoma, resected 13 history of bursitis with MRSA, postprandial and treated 13 history of spinal stenosis Plan The patient was seen and evaluated by Dr. Crowe She is stable from the pulmonary standpoint Titrate down the FiO2 IV Solu-Medrol discontinued Prednisone taper We'll continue to follow I, the cosigning physician, performed a history & physical examination of the patient. Lungs sounds are clear. Maintaining good O2 saturations in the 90s on 2 L/m per nasal cannula. I discussed the assessment and plan of care with my nurse practitioner, Suze Rdz. I attest to the above note as dictated by her.
[2019-08-04] MEDS: OXYBUTYNIN XL 5 MG TAB.ER.24 PO SCH (12:05)
[2019-08-04] MEDS: METHOCARBAMOL 750 MG TAB PO SCH ×3 (12:05→21:48)
[2019-08-04] MEDS: SODIUM CHLORIDE 0.9% 1,000 ML IV SCH (13:10)
[2019-08-04 16:28] LABS: Glucose,Whole Blood 309 mg/dL (75-99)
[2019-08-04 21:02] LABS: Glucose,Whole Blood 258 mg/dL (75-99)
[2019-08-04] MEDS: ALBUTEROL HFA INHALER INHALATION SCH (21:08)
[2019-08-04] MEDS: INSULIN DETEMIR (LEVEMIR) 100 UNIT/ML SYR SQ SCH (21:49)
[2019-08-04] MEDS: hydrOXYzine HCL 25 MG TAB PO SCH (21:49)
[2019-08-04] MEDS: LATANOPROST 0.005% OPHTH DROPS 2.5 ML BTL BOTH EYES SCH (21:51)
[2019-08-04] MEDS: PANTOPRAZOLE 40 MG TABLET PO SCH (21:51)
--- NOTE | 2019-08-05 03:50 | PN ---
PROGRESS NOTE DATE OF SERVICE: 08/04/2019 I am covering for Dr. Hart. This 78-year-old woman who was admitted with shortness of breath and possible rheumatoid lung acute exacerbation is closely monitored. Patient is on IV steroids. and bronchodilators. No chest pain or palpitations. No fever. PHYSICAL EXAMINATION: On exam, alert and oriented x3. Pulse 82, blood pressure 112/65, respiration 18, temperature 98 degrees, pulse ox 96% on 2 L. HEENT: Conjunctivae normal. NECK: No jugular venous distention. CARDIOVASCULAR: S1, S2 muffled. RESPIRATORY: Breath sounds diminished at the bases. A few scattered rhonchi and crackles. Expiratory wheezing. ABDOMEN: Soft, nontender. LEGS: No edema. No swelling. NERVOUS SYSTEM: No focal deficits. LABS: WBC 11.2, hemoglobin 11.7. Glucose 322. Sodium 133. ASSESSMENT: 1. Shortness of breath, possibly acute rheumatoid lung acute exacerbation. 2. Atrial fibrillation with fast ventricular rate. 3. Hyponatremia. 4. Hypomagnesemia. 5. History of chronic atrial fibrillation. 6. History of coronary artery disease. 7. Diabetes mellitus type 2. 8. Hypertension. 9. Hyperlipidemia. 10.History of degenerative joint disease. 11.History of pneumonia. 12.History of skin disorder. 13.History of morbid obesity. 14.History of spinal stenosis. 15.History of degenerative joint disease. 16.History of hypothyroidism. 17.History of skin melanoma. 18.History of bursitis MRSA. 19.History of Sjogren's disease. 20.History of mediastinal lymphadenopathy, improved. 21.History of MRSA. 22.History of cardiac ablation. 23.History of bilateral cataracts. 24.History of degenerative joint disease. 25.Remote history of nicotine dependence. 26.FULL CODE. RECOMMENDATIONS AND DISCUSSION: Recommend to continue current medications, continue symptomatic treatment. Continue steroids, bronchodilators. Closely follow with Pulmonary. Otherwise Dr. Hart will follow tomorrow. MMODL / IJN: [id number] /
[2019-08-05] MEDS: HYDROcodone/APAP 10-325MG 1 EACH TAB PO SCH (05:24)
[2019-08-05] MEDS: LEVOTHYROXINE 125 MCG TAB PO SCH (05:24)
[2019-08-05 06:41] LABS: Glucose,Whole Blood 266 mg/dL (75-99)
[2019-08-05] MEDS: metFORMIN 500 MG TAB PO SCH (07:37)
[2019-08-05] MEDS: MULTIVITAMINS, THERA 1 EACH TAB PO SCH (07:37)
[2019-08-05] MEDS: FOLIC ACID 1 MG TAB PO SCH (07:37)
[2019-08-05] MEDS: APIXABAN 5 MG TAB PO SCH (07:37)
[2019-08-05] MEDS: CALCIUM CARB-VIT D 500MG-200UN 1 EACH TAB PO SCH (07:38)
[2019-08-05] MEDS: METOPROLOL TARTRATE 50 MG TAB PO SCH (07:38)
[2019-08-05] MEDS: ASPIRIN 81 MG PO SCH (07:38)
[2019-08-05] MEDS: INSULIN ASPART (NovoLOG) 100 UNIT/ML VIAL SQ SCH (07:38)
[2019-08-05] MEDS: PILOCARPINE 5 MG TAB PO SCH (07:39)
[2019-08-05] MEDS: FUROSEMIDE 80 MG TAB PO SCH (07:39)
[2019-08-05] MEDS: DILTIAZEM ORAL 30 MG TAB PO SCH (07:39)
[2019-08-05] MEDS: NON FORMULARY DRUG (Glucosam/Chon-Msm1/C/Mang/Bosw [Glucosamine-Chondroitin Tablet] 1 TAB) PO SCH (07:40)
[2019-08-05] MEDS: CLOTRIMAZOLE 1% CREAM 15 GM TUBE TOPICAL SCH (07:44)
[2019-08-05 07:53] LABS: Calcium 9.7 mg/dL (8.4-10.2); Potassium 4.4 mmol/L (3.5-5.1)
[2019-08-05 08:02] LABS: Basophils % (A) 0 %; Eosinophils % (A) 0 %; HCT 37.5 % (34.0-46.0); HGB 11.9 gm/dL (11.4-16.0); Hypochromasia Slight; Lymphocytes # (A) 1.6 k/uL (1.0-4.8); Lymphocytes % (A) 14 %; MCH 28.6 pg (25.0-35.0); MCHC 31.7 g/dL (31.0-37.0); MCV 90.2 fL (80.0-100.0); Mean Platelet Volume 7.7; Monocytes # (A) 0.7 k/uL (0-1.0); Monocytes % (A) 6 %; Neutrophils # (A) 9.4 k/uL (1.3-7.7); Neutrophils % (A) 79 %; Platelet Count 227 k/uL (150-450); RBC 4.16 m/uL (3.80-5.40); RDW 15.3 % (11.5-15.5); WBC 11.9 k/uL (3.8-10.6)
--- NOTE | 2019-08-05 08:05 | P.DS ---
Providers Date of admission: 08/05/19 07:17 Attending physician: Nicholas Hart Consults: 08/02/19 10:53 Consult Physician Routine Consulting Provider: Otoniel Mckeon Consult Reason/Comments: dyspnea Do you want consulting provider notified?: Yes 08/03/19 00:07 Consult Physician Routine Consulting Provider: Jamshid George Consult Reason/Comments: Afib/sob Do you want consulting provider notified?: Yes, Notify in am Primary care physician: Nicholas Hart Patient Condition at Discharge: Fair Plan - Discharge Summary Discharge Rx Participant: No New Discharge Prescriptions: New RX: predniSONE [Deltasone] 40 mg PO DAILY #5 tab Continue RX: Gabapentin [Neurontin] 1,200 mg PO AC-TID RX: Lansoprazole [Prevacid] 15 mg PO HS RX: hydrOXYzine HCL [Atarax] 50 mg PO HS RX: Folic Acid 1 mg PO DAILY RX: Latanoprost [Xalatan 0.005%] 1 drop BOTH EYES HS RX: metFORMIN HCL [Glucophage] 1,000 mg PO AC-BID RX: Pilocarpine HCl [Salagen] 7.5 mg PO TID@0800,1200,1800 RX: Nitroglycerin Sl Tabs [Nitrostat] 0.4 mg SUBLINGUAL Q5M PRN #30 tab PRN Reason: Chest Pain RX: Apixaban [Eliquis] 5 mg PO BID #60 tab RX: Insulin Degludec [Tresiba] 60 units SQ HS RX: HYDROcodone/APAP 10-325MG [[place] 10-325] 1 tab PO Q6HR RX: Adalimumab [Humira Pediatric Crohn's] 40 mg SQ WE RX: Furosemide [Lasix] 80 mg PO DAILY RX: Insulin Lispro [humaLOG Kwikpen] See Protocol SQ AC-TID RX: Tolterodine Tartrate [Detrol LA] 4 mg PO DAILY@1200 RX: Gabapentin 1,600 mg PO HS RX: Leflunomide 20 mg PO DAILY RX: Methocarbamol [Robaxin] 750 mg PO TID@1200,1800,2100 RX: tiZANidine [Zanaflex] 4 - 8 mg PO HS PRN PRN Reason: Muscle Spasm RX: Aspirin EC [Ecotrin] 325 mg PO DAILY RX: Calcium Carbonate/Vitamin D3 [Calcium 500-Vit D3 200 Tablet] 1 tab PO BID RX: Clotrimazole [Lotrimin AF] 1 applic TOPICAL DAILY RX: Glucosam/Cristian-Msm1/C/Finn/Bosw [Glucosamine-Chondroitin Tablet] 1 tab PO DAILY RX: Metoprolol Tartrate [Lopressor] 50 mg PO BID@0800,2100 RX: Multivitamins, Thera [Multivitamin (formulary)] 1 tab PO DAILY RX: Diltiazem Oral [Cardizem*] 90 mg PO TID #90 tab RX: Amiodarone [Cordarone] 200 mg PO DAILY #30 tab RX: Metoprolol Tartrate [Lopressor] 25 mg PO DAILY@1200 RX: Levothyroxine Sodium [Synthroid] 250 mcg PO DAILY Discontinued RX: predniSONE 4 mg PO DAILY Discharge Medication List RX: Gabapentin [Neurontin] 1,200 mg PO AC-TID 02/27/14 [History] RX: Lansoprazole [Prevacid] 15 mg PO HS 02/27/14 [History] RX: hydrOXYzine HCL [Atarax] 50 mg PO HS 04/12/16 [History] RX: Folic Acid 1 mg PO DAILY 08/13/16 [History] RX: Latanoprost [Xalatan 0.005%] 1 drop BOTH EYES HS 08/11/17 [History] RX: Pilocarpine HCl [Salagen] 7.5 mg PO TID@0800,1200,1800 08/11/17 [History] RX: metFORMIN HCL [Glucophage] 1,000 mg PO AC-BID 08/11/17 [History] RX: Nitroglycerin Sl Tabs [Nitrostat] 0.4 mg SUBLINGUAL Q5M PRN #30 tab 08/13/17 [Rx] RX: Apixaban [Eliquis] 5 mg PO BID #60 tab 08/30/17 [Rx] RX: Adalimumab [Humira Pediatric Crohn's] 40 mg SQ WE 09/25/18 [History] RX: Furosemide [Lasix] 80 mg PO DAILY 09/25/18 [History] RX: HYDROcodone/APAP 10-325MG [[place] 10-325] 1 tab PO Q6HR 09/25/18 [History] RX: Insulin Degludec [Tresiba] 60 units SQ HS 09/25/18 [History] RX: Insulin Lispro [humaLOG Kwikpen] See Protocol SQ AC-TID 09/25/18 [History] RX: Tolterodine Tartrate [Detrol LA] 4 mg PO DAILY@1200 09/25/18 [History] RX: Gabapentin 1,600 mg PO HS 11/14/18 [History] RX: Leflunomide 20 mg PO DAILY 11/14/18 [History] RX: Methocarbamol [Robaxin] 750 mg PO TID@1200,1800,2100 11/14/18 [History] RX: tiZANidine [Zanaflex] 4 - 8 mg PO HS PRN 11/15/18 [History] RX: Aspirin EC [Ecotrin] 325 mg PO DAILY 11/19/18 [History] RX: Calcium Carbonate/Vitamin D3 [Calcium 500-Vit D3 200 Tablet] 1 tab PO BID 11/19/18 [History] RX: Clotrimazole [Lotrimin AF] 1 applic TOPICAL DAILY 11/19/18 [History] RX: Glucosam/Cristian-Msm1/C/Finn/Bosw [Glucosamine-Chondroitin Tablet] 1 tab PO DAILY 11/19/18 [History] RX: Metoprolol Tartrate [Lopressor] 50 mg PO BID@0800,2100 11/19/18 [History] RX: Multivitamins, Thera [Multivitamin (formulary)] 1 tab PO DAILY 11/19/18 [History] RX: Amiodarone [Cordarone] 200 mg PO DAILY #30 tab 11/23/18 [Rx] RX: Diltiazem Oral [Cardizem*] 90 mg PO TID #90 tab 11/23/18 [Rx] RX: Levothyroxine Sodium [Synthroid] 250 mcg PO DAILY 08/02/19 [History] RX: Metoprolol Tartrate [Lopressor] 25 mg PO DAILY@1200 08/02/19 [History] RX: predniSONE [Deltasone] 40 mg PO DAILY #5 tab 08/05/19 [Rx] Follow up Appointment(s)/Referral(s): Nicholas Hart MD [Primary Care Provider] - 1 Week Discharge Disposition: HOME SELF-CARE
[2019-08-05] MEDS: GABAPENTIN PO SCH (08:15)
[2019-08-05 08:30] VITALS: BP 150/83; PULSE 81; RESP 16; TEMP 97.9
[2019-08-05] MEDS: ALBUTEROL HFA INHALER INHALATION SCH ×2 (08:49→12:32)
[2019-08-05] MEDS ORDERED: LEFLUNOMIDE 20 MG TAB PO SCH (09:00)
[2019-08-05] MEDS ORDERED: predniSONE 20 MG TAB PO SCH (09:00)
[2019-08-05 11:03] LABS: Glucose,Whole Blood 217 mg/dL (75-99)
[2019-08-05] MEDS: SODIUM CHLORIDE 0.9% 1,000 ML IV SCH (11:36)
--- NOTE | 2019-08-05 13:02 | P.PN ---
Subjective Progress Note Date: 08/05/19 Principal diagnosis: Acute on chronic shortness of breath 78-year-old morbidly obese female patient with known history of chronic atrial fibrillation and rheumatoid arthritis maintained on immunosuppressive agents coming into the hospital because of some limited shortness of breath over the past few days. No significant hypoxemia. No pleurisy. No hemoptysis. Shortness of breath essentially exertional. No orthopnea. No proximal nocturnal dyspnea. No previous history of DVT or pulmonary embolism. No indication for any form of chronic interstitial lung disease based on the most recent computed tomography scan of the chest that was done 2018. At that time the patient also was noted to have recovery of previously noted mediastinal lymph nodes. The patient's white cell count of 8.8. Hemoglobin is 11.9. ProBNP is 2510. All of the LFTs are within normal limits. Electrodes are also within normal limits. Renal function is within normal limits. The patient's c hest x-ray showing some mild cardiomegaly without any acute cardio pulmonary process the EKG is consistent with atrial fibrillation and old anterior wall myocardial infarction with Q waves and left posterior fascicular block. The patient is seen today 08/03/2019 in follow-up on the regular medical floor. She is awake and alert in no acute distress. He is maintaining O2 saturations in the 90s on 2 L/m per nasal cannula. She is short of breath with exertion only. She's been afebrile. Hemodynamically stable. White count 5.0. Hemoglobin 11.6. Sodium 136. Potassium 4.8. Creatinine 0.52. She is currently on IV Solu-Medrol. Anticoagulated with Eliquis. The patient is seen today 08/04/2019 in follow-up on the regular medical floor. She is currently resting comfortably in bed. Awake and alert in no acute distress. Maintaining O2 saturations in the mid to upper 90s on 2 L/m per nasal cannula. She's afebrile. Hemodynamically stable. White count 11.2. Hemoglobin 11.7. Sodium 133. Potassium 4.7. Creatinine 0.72. Lung sounds are clear. On 6 L thousand 20 patient seen in follow-up on a regular medical surgical floor. She is feeling better, she remains on 2 L of oxygen and her pulse ox is 95%, afebrile, hemodynamically she is stable. She remains on oral Lasix, breath ing treatments, she is on Eliquis for chronic atrial fibrillation, IV steroids have been transitioned to oral prednisone. No acute events overnight, no worsening dyspnea, cough or congestion, no complaints of chest pain. Patient is going home today. Objective - Vital Signs Vital signs: Vital Signs Temp 97.9 F 08/05/19 07:00 Pulse 81 08/05/19 07:00 Resp 16 08/05/19 07:00 BP 150/83 08/05/19 07:00 Pulse Ox 95 08/05/19 07:00 Intake & Output 08/04/19 08/05/19 08/05/19 18:59 06:59 18:59 Other: Voiding Method Toilet Toilet Toilet # Voids 3 2 - Exam GENERAL EXAM: Alert, very pleasant, 78-year-old female on 2 L of oxygen and the pulse ox of 95%, comfortable in no apparent distress. HEAD: Normocephalic/atraumatic. EYES: Normal reaction of pupils, equal size. Conjunctiva pink, sclera white. NOSE: Clear with pink turbinates. THROAT: No erythema or exudates. NECK: No masses, no JVD, no thyroid enlargement, no adenopathy. CHEST: No chest wall deformity. Symmetrical expansion. LUNGS: Equal air entry with no crackles, wheeze, rhonchi or dullness. CVS: Irregular rate and rhythm, normal S1 and S2, no gallops, no murmurs, no rubs ABDOMEN: Soft, nontender. No hepatosplenomegaly, normal bowel sounds, no guarding or rigidity. EXTREMITIES: No clubbing, no edema, no cyanosis, 2+ pulses and upper and lower extremities. MUSCULOSKELETAL: Muscle strength and tone normal. SPINE: No scoliosis or deformity SKIN: No rashes CENTRAL NERVOUS SYSTEM: Alert and oriented -3. No focal deficits, tone is normal in all 4 extremities. PSYCHIATRIC: Alert and oriented -3. Appropriate affect. Intact judgment and insight. - Labs CBC & Chem 7: 08/05/19 06:34 08/05/19 06:34 Labs: Abnormal Lab Results - Last 24 Hours (Table) 08/04/19 08/04/19 08/05/19 Range/Units 16:27 21:00 06:34 WBC 11.9 H (3.8-10.6) k/uL Neutrophils # 9.4 H (1.3-7.7) k/uL Sodium (137-145) mmol/L Chloride (98-107) mmol/L BUN (7-17) mg/dL Glucose (74-99) mg/dL POC Glucose (mg/dL) 309 H 258 H (75-99) mg/dL 08/05/19 08/05/19 08/05/19 Range/Units 06:34 06:40 11:01 WBC (3.8-10.6) k/uL Neutrophils # (1.3-7.7) k/uL Sodium 135 L (137-145) mmol/L Chloride 97 L (98-107) mmol/L BUN 29 H (7-17) mg/dL Glucose 258 H (74-99) mg/dL POC Glucose (mg/dL) 266 H 217 H (75-99) mg/dL Assessment and Plan Plan: Assessment: 1 chronic dyspnea/shortness of breath, multifactorial, with acute on chronic diastolic congestive heart failure without any acute abnormalities identified on today's evaluation 2 chronic atrial fibrillation rate controlled on long-term and to coagulation with Eliquis 3 history of rheumatoid arthritis maintained on immunosuppressive agents 4 history of Sjogren's disease 5 hypertension 6 hyperlipidemia 7 obesity with a BMI of 35.6 8 diabetes mellitus type 2 9 coronary artery disease, nonobstructive 10 hypothyroidism 11 osteoarthritis 12 history of skin melanoma, resected 13 history of bursitis with MRSA, postprandial and treated 13 history of spinal stenosis Plan: Patient continues to improve, no worsening dyspnea, vital signs are stable, no fever or chills, patient has been transitioned to oral steroids, she is on home dose of Lasix, she is breathing easier, no complaints of chest pain, no cough or congestion, no wheezing. From pulmonary perspective patient stable for discharge home today, follow up with Dr. Riley in the office in 7-10 days I performed a history & physical examination of the patient and discussed their management with my nurse practitioner, Jaleesa Benitez. I reviewed the nurse practitioner's note and agree with the documented findings and plan of care. Lung sounds are positive for diminished breath sounds The findings and the impression was discussed with the patient. I attest to the documentation by the nurse practitioner. Time with Patient: Less than 30
== END 2019-08-05 12:59 | disposition home or self-care (01) | DRG 196 ==
LOC: EC 08:52 → 4SSUR 10:52 → OBSVTOIN 08-05 07:17
PROVIDERS: ADMIT Family Medicine; ATTEND Family Medicine
DX: M05.10 Rheumatoid lung disease with rheumatoid arthritis of unspecified site (principal); I50.33 Acute on chronic diastolic (congestive) heart failure; I48.19 Other persistent atrial fibrillation; E87.1 Hypo-osmolality and hyponatremia; K50.90 Crohn's disease, unspecified, without complications; I11.0 Hypertensive heart disease with heart failure; Z79.01 Long term (current) use of anticoagulants; E11.9 Type 2 diabetes mellitus without complications; M35.00 Sjogren syndrome, unspecified; Z79.4 Long term (current) use of insulin; E66.01 Morbid (severe) obesity due to excess calories; Z20.828 Contact with and (suspected) exposure to other viral communicable diseases; E83.42 Hypomagnesemia; I34.0 Nonrheumatic mitral (valve) insufficiency; E78.5 Hyperlipidemia, unspecified; E03.9 Hypothyroidism, unspecified; I25.10 Atherosclerotic heart disease of native coronary artery without angina pectoris; I44.5 Left posterior fascicular block; M19.90 Unspecified osteoarthritis, unspecified site; M48.00 Spinal stenosis, site unspecified; I73.00 Raynaud's syndrome without gangrene; L40.9 Psoriasis, unspecified; M25.512 Pain in left shoulder; H53.2 Diplopia; Z68.35 Body mass index [BMI] 35.0-35.9, adult; Z79.82 Long term (current) use of aspirin; Z79.890 Hormone replacement therapy; Z79.52 Long term (current) use of systemic steroids; Z79.899 Other long term (current) drug therapy; Z87.891 Personal history of nicotine dependence; Z86.14 Personal history of Methicillin resistant Staphylococcus aureus infection; Z98.42 Cataract extraction status, left eye; Z98.41 Cataract extraction status, right eye; Z96.1 Presence of intraocular lens; Z87.440 Personal history of urinary (tract) infections; Z85.820 Personal history of malignant melanoma of skin; Z96.642 Presence of left artificial hip joint; Z98.890 Other specified postprocedural states; Z87.01 Personal history of pneumonia (recurrent); Z88.1 Allergy status to other antibiotic agents; Z88.2 Allergy status to sulfonamides; Z91.048 Other nonmedicinal substance allergy status; Z82.3 Family history of stroke; Z83.79 Family history of other diseases of the digestive system; Z83.6 Family history of other diseases of the respiratory system; Z82.69 Family history of other diseases of the musculoskeletal system and connective tissue
CPT/HCPCS: 36415; 71045; 80048; 80053; 82803; 83605; 83735; 83880; 84443; 84484; 85025; 85610; 85730; 93005; 93306; 96374; 99285

== ENCOUNTER → 2020-03-09 | Outpatient (CLI) | payer MEDICARE | END | disposition home or self-care (01) | LOC: LABWHC1 13:11 | PROVIDERS: ATTEND Family Medicine | DX: Z20.822 Contact with and (suspected) exposure to COVID-19 (principal); R09.81 Nasal congestion; R11.0 Nausea | CPT/HCPCS: U0003; C9803; U0005 ==

== ENCOUNTER → 2020-04-10 | Outpatient (CLI) | payer MEDICARE ==
--- NOTE | 2020-04-10 13:57 | ECHOF ---
Referral Reason:R60.9 Edema MEASUREMENTS -------- HEIGHT: 182.9 cm WEIGHT: 144.2 kg BP: RVIDd: 3.9 cm (< 3.3) IVSd: 1.3 cm (0.6 - 1.1) LVIDd: 4.3 cm (3.9 - 5.3) LVPWd: 1.7 cm (0.6 - 1.1) IVSs: 1.9 cm LVIDs: 3.1 cm LVPWs: 1.9 cm LA Diam: 5.4 cm (2.7 - 3.8) Ao Diam: 3.2 cm (2.0 - 3.7) AV Cusp: 1.6 cm (1.5 - 2.6) LA Diam: 4.1 cm (2.7 - 3.8) MV EXCURSION: 18.351 mm (> 18.000) MV EF SLOPE: 49 mm/s (70 - 150) EPSS: 0.9 cm AR PHT: 550 ms RAP: 10.00 mmHg RVSP: 68.31 mmHg FINDINGS -------- Atrial fibrillation. This was a technically adequate study. Morbid Obesity LV size, wall thickness and systolic function are normal, with an EF greater than 55%. The left katie tricular size is normal. The right ventricle is moderately enlarged. The left atrium is markedly dilated. The right atrial size is normal. There is mild aortic valve sclerosis. There is mild aortic regurgitation. Mild mitral annular calcification present. Moderate mitral regurgitation is present. The peak an d mean MV gradients are 14.80mmHg 4.76mmHg as measured by doppler. Mild mitral stenosis. Moderate tricuspid regurgitation present. There is moderate to severe pulmonary hypertension. The right ventricular systolic pressure, as measured by Doppler, is 68.31mmHg. There is no pulmonic regurgitation present. The aortic root size is normal. There is no pericardial effusion. CONCLUSIONS -------- 1. Morbid Obesity 2. LV size, wall thickness and systolic function are normal, with an EF greater than 55%. 3. The right ventricle is moderately enlarged. 4. The left atrium is markedly dilated. 5. There is mild aortic valve sclerosis. 6. There is mild aortic regurgitation. 7. Moderate mitral regurgitation is present. 8. Mild mitral stenosis. 9. Moderate tricuspid regurgitation present. 10. There is moderate to severe pulmonary hypertension. 11. There is no pericardial effusion. [employer]: Yue Patel RDCS
== END | disposition home or self-care (01) ==
LOC: RADECHMAIN 11:26
PROVIDERS: ATTEND Family Medicine
DX: I08.3 Combined rheumatic disorders of mitral, aortic and tricuspid valves (principal); I27.20 Pulmonary hypertension, unspecified; E66.01 Morbid (severe) obesity due to excess calories
CPT/HCPCS: 93306

== ENCOUNTER → 2020-04-13 | Outpatient (CLI) | payer MEDICARE ==
[2020-04-13 21:38] LABS: HCT 38.8 % (37.2-46.3); HGB 11.1 g/dL (12.0-15.0); MCH 26.7 pg (27.0-32.0); MCHC 28.6 g/dL (32.0-37.0); MCV 93.3 fL (80.0-97.0); Mean Platelet Volume 10.1 fL (9.5-12.2); Platelet Count 273 X 10*3/uL (140-440); RBC 4.16 X 10*6/uL (4.10-5.20); RDW 15.9 % (11.5-14.5); WBC 10.22 X 10*3/uL (4.50-10.00)
[2020-04-13 23:13] LABS: Albumin 4.3 g/dL (3.80-4.90); Albumin/Globulin Ratio 1.79 (1.60-3.17); Anion Gap 7.5 mmol/L (4.00-12.00); BUN/Creat Ratio 15.56 Ratio (12.00-20.00); Calcium 9.2 mg/dL (8.7-10.3); Carbon Dioxide 35.5 mmol/L (21.6-31.8); Globulin 2.4 g/dL (1.6-3.3); Non-African American GFR(CKD) 61.2 (60.0-200.0); Potassium 4.2 mmol/L (3.5-5.5); Total Bilirubin 0.4 mg/dL (0.3-1.2); Total Protein 6.7 g/dL (6.2-8.2)
== END | disposition home or self-care (01) ==
LOC: LABWHC1 12:20
PROVIDERS: ATTEND Family Medicine
DX: R60.9 Edema, unspecified (principal)
CPT/HCPCS: 36415; 80053; 85027

== ENCOUNTER → 2020-09-25 | Outpatient (CLI) | payer MEDICARE ==
--- NOTE | 2020-09-25 14:11 | CT ---
EXAMINATION TYPE: CT abdomen wo con DATE OF EXAM: 09/25/2020 COMPARISON: 11/14/2018 HISTORY: Abdominal distention. CT DLP: 1001.7 mGycm Automated exposure control for dose reduction was used. TECHNIQUE: Helical acquisition of images was performed from the lung bases through the top of iliac crest to include entire abdomen. Lack of contrast limits the exam. CONTRAST: Performed with Oral Contrast and without IV contrast. FINDINGS: LUNG BASES: The heart is enlarged there subsegmental atelectasis involving both lung bases. Coronary artery calcification noted. Atherosclerotic change aorta. LIVER/GB: No significant abnormality is appreciated. PANCREAS: No significant abnormality is seen. SPLEEN: No significant abnormality is seen. ADRENALS: No significant abnormality is seen. KIDNEYS: No hydronephrosis or nephrolithiasis. There appears to be cortical loss involving the right kidney chronic and unchanged from prior exam. Able suspected left-sided parapelvic renal cyst. BOWEL: Nonspecific gas pattern with retained debris throughout the colon. LYMPH NODES: No significant abnormality is appreciated. OSSEOUS STRUCTURES: Degenerative changes of the spine with postsurgical change involving the vertebr al column. FREE AIR: No free air is visualized. OTHER: No free fluid. Aorta of normal caliber with atherosclerotic changes. IMPRESSION: 1. No acute process. 2. Cardiomegaly with coronary artery calcification. 3. Nonspecific abdomen with extensive retained fecal debris correlate for constipation
== END | disposition home or self-care (01) ==
LOC: RADCTMAIN 11:54
PROVIDERS: ATTEND Family Medicine
DX: I25.10 Atherosclerotic heart disease of native coronary artery without angina pectoris (principal)
CPT/HCPCS: 74150

== ENCOUNTER 2021-07-23 12:16 | Inpatient (IN) | payer MEDICARE ==
[2021-07-23] MEDS ORDERED: SODIUM CHLORIDE 0.9% 500 ML 500 ML IV STA (12:40)
--- NOTE | 2021-07-23 12:44 | ED ---
General Adult HPI - General Chief complaint: Weakness Stated complaint: Weakness Time Seen by Provider: 07/23/21 12:31 Source: patient, EMS, RN notes reviewed Mode of arrival: EMS Limitations: no limitations - History of Present Illness Initial comments: Patient is a pleasant 80-year-old female presenting to the emergency Department with weakness and left leg injury. Patient had a fall yesterday. Patient needed assistance getting back in bed by EMS. This morning patient was unable to get out of bed. Patient states this is secondary to discomfort of her left knee area. Patient does have history of previous hip surgery. Patient denies any head injury or loss of consciousness. No syncope. Discomfort improved with morphine by EMS - Related Data Home Medications Medication Instructions Recorded Confirmed Gabapentin [Neurontin] 1,200 mg PO BID@0800,1700 02/27/14 07/23/21 Lansoprazole [Prevacid] 15 mg PO HS 02/27/14 07/23/21 hydrOXYzine HCL [Atarax] 50 mg PO HS 04/12/16 07/23/21 Latanoprost [Xalatan 0.005%] 1 drop BOTH EYES HS 08/11/17 07/23/21 Pilocarpine HCl [Salagen] 7.5 mg PO TID@0800,1200,1800 08/11/17 07/23/21 metFORMIN HCL [Glucophage] 1,000 mg PO AC-BID 08/11/17 07/23/21 Adalimumab [Humira Pediatric 40 mg SQ WE 09/25/18 07/23/21 Crohn's] Furosemide [Lasix] 80 mg PO DAILY 09/25/18 07/23/21 HYDROcodone/APAP 10-325MG [[place]fu 1 tab PO Q6HR 09/25/18 07/23/21 10-325] Insulin Degludec [Tresiba] 46 units SQ DAILY 09/25/18 07/23/21 Insulin Lispro [humaLOG Kwikpen] See Protocol SQ AC-TID 09/25/18 07/23/21 Tolterodine Tartrate [Detrol LA] 4 mg PO DAILY 09/25/18 07/23/21 Gabapentin 1,600 mg PO HS 11/14/18 07/23/21 methocarbamoL [Robaxin] 750 mg PO TID@1200,1800,2100 11/14/18 07/23/21 Calcium Carbonate/Vitamin D3 1 tab PO BID 11/19/18 07/23/21 [Calcium 500-Vit D3 5 Mcg (200 Iu)] Clotrimazole [Lotrimin AF] 1 applic TOPICAL DAILY 11/19/18 07/23/21 Glucosam/Cristian-Msm1/C/Finn/Bosw 1 tab PO DAILY 11/19/18 07/23/21 [Glucosamine-Chondroitin Tablet] Metoprolol Tartrate [Lopressor] 100 mg PO BID 11/19/18 07/23/21 Multivitamins, Thera [Multivitamin 1 tab PO DAILY 11/19/18 07/23/21 (formulary)] Levothyroxine Sodium [Synthroid] 250 mcg PO DAILY 08/02/19 07/23/21 Amiodarone [Cordarone] 100 mg PO DAILY 07/23/21 07/23/21 Aspirin EC [Ecotrin Low Dose] 81 mg PO DAILY 07/23/21 07/23/21 Cyclobenzaprine [Flexeril] 10 mg PO BID PRN 07/23/21 07/23/21 Gabapentin 800 mg PO DAILY@1200 07/23/21 07/23/21 dilTIAZem HCL 90 mg PO BID 07/23/21 07/23/21 predniSONE 5 mg PO DAILY 07/23/21 07/23/21 Previous Rx's Medication Instructions Recorded Nitroglycerin Sl Tabs [Nitrostat] 0.4 mg SUBLINGUAL Q5M PRN #30 tab 08/13/17 Apixaban [Eliquis] 5 mg PO BID #60 tab 08/30/17 Allergies Allergy/AdvReac Type Severity Reaction Status Date / Time adhesive Allergy Rash/Hives Verified 07/23/21 13:55 cephalexin [From Keflex] Allergy Rash/Hives Verified 07/23/21 13:55 grass pollen Allergy Unknown Verified 07/23/21 13:55 mold Allergy Unknown Verified 07/23/21 13:55 Sulfa (Sulfonamide Allergy Rash/Hives Verified 07/23/21 13:55 Antibiotics) newspaper ink Allergy Mild Unknown Uncoded 08/02/19 11:25 Review of Systems ROS Statement: Those systems with pertinent positive or pertinent negative responses have been documented in the HPI. ROS Other: All systems not noted in ROS Statement are negative. Constitutional: Denies: fever Eyes: Denies: eye pain ENT: Denies: ear pain Respiratory: Denies: cough Cardiovascular: Denies: palpitations Endocrine: Denies: fatigue Gastrointestinal: Denies: vomiting Genitourinary: Denies: dysuria Musculoskeletal: Reports: as per HPI. Denies: back pain Skin: Denies: rash Neurological: Denies: confusion Past Medical History Past Medical History: Atrial Fibrillation, Coronary Artery Disease (CAD), Cancer, Diabetes Mellitus, Hyperlipidemia, Hypertension, Musculoskeletal Disorder, Neurologic Disorder, Osteoarthritis (OA), Pneumonia, Renal Disease, Rheumatoid Arthritis (RA), Skin Disorder, Thyroid Disorder Additional Past Medical History / Comment(s): Morbid obesity, chronic atrial fibrillation, diabetes mellitus type 2, hypertension, hyperlipidemia, spinal stenosis, osteoarthritis, hypothyroidism, hypertension, history of skin melanoma, history of bursitis with MRSA post I&D, rheumatoid arthritis, Sjogren's disease, 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 Past Anesthesia/Blood Transfusion Reactions: No Reported Reaction Past Psychological History: No Psychological Hx Reported Additional Psychological History / Comment(s): Pt resides with her spouse. pt drives. No home care.uses cane when up Past Alcohol Use History: None Reported Additional Past Alcohol Use History / Comment(s): Pt started smoking in college and QUIT SMOKING in 1969 Past Drug Use History: None Reported - Past Family History Mother Family Medical History: CVA/TIA Additional Family Medical History / Comment(s): RUPTURED BOWEL Father Family Medical History: Cancer, Pneumonia Additional Family Medical History / Comment(s): ASPIRATIVE PNA Sister(s) Additional Family Medical History / Comment(s): at age 34 with lupus General Exam Limitations: no limitations General appearance: alert, in no apparent distress Head exam: Present: normocephalic Eye exam: Present: normal appearance ENT exam: Present: mucous membranes dry (Patient states chronic from her Sjogren syndrome) Neck exam: Present: normal inspection Respiratory exam: Present: normal lung sounds bilaterally Cardiovascular Exam: Present: irregular rhythm Expanded Peripheral pulses: 2+: Posterior Tibialis (L), Dorsalis Pedis (L) GI/Abdominal exam: Present: soft. Absent: tenderness Extremities exam: Present: tenderness (Tenderness upper portion of left knee and lower femur) Neurological exam: Present: alert, CN II-XII intact. Absent: motor sensory deficit Expanded Neurological exam: Present: protecting the airway Motor strength exam: RUE: 5, LUE: 5, RLE: 5, LLE: 5 Eye Response: (4) open spontaneously Motor Response: (6) obeys commands Verbal Response: (5) oriented Psychiatric exam: Present: normal affect, normal mood Skin exam: Present: normal color Course Vital Signs 07/23/21 07/23/21 12:55 14:25 Temperature 98.2 F Pulse Rate 84 84 Respiratory 20 20 Rate Blood Pressure 116/63 115/94 O2 Sat by Pulse 98 95 Oximetry Medical Decision Making - Medical Decision Making Patient reevaluated. Patient and family updated. Both are not comfortable with discharge home secondary to patient being unable Amer later take care of herself. Patient has no traumatic injuries therefore Dr. Hart has been paged for admission of his patient. Case was discussed with Dr. Hart. - Lab Data Result diagrams: 07/23/21 13:12 07/23/21 13:12 Lab Results 07/23/21 07/23/21 07/23/21 Range/Units 13:12 13:12 13:12 WBC 10.2 (3.8-10.6) k/uL RBC 4.12 (3.80-5.40) m/uL Hgb 10.2 L (11.4-16.0) gm/dL Hct 35.0 (34.0-46.0) % MCV 84.9 (80.0-100.0) fL MCH 24.8 L (25.0-35.0) pg MCHC 29.2 L (31.0-37.0) g/dL RDW 17.7 H (11.5-15.5) % Plt Count 207 (150-450) k/uL MPV 6.9 Neutrophils % 74 % Lymphocytes % 14 % Monocytes % 7 % Eosinophils % 3 % Basophils % 1 % Neutrophils # 7.6 (1.3-7.7) k/uL Lymphocytes # 1.5 (1.0-4.8) k/uL Monocytes # 0.7 (0-1.0) k/uL Eosinophils # 0.3 (0-0.7) k/uL Basophils # 0.1 (0-0.2) k/uL Hypochromasia Marked Anisocytosis Slight PT 12.1 H (9.0-12.0) sec INR 1.1 (<1.2) APTT 25.1 (22.0-30.0) sec Sodium 138 (137-145) mmol/L Potassium 4.0 (3.5-5.1) mmol/L Chloride 95 L (98-107) mmol/L Carbon Dioxide 37 H (22-30) mmol/L Anion Gap 6 mmol/L BUN 15 (7-17) mg/dL Creatinine 0.72 (0.52-1.04) mg/dL Est GFR (CKD-EPI)AfAm >90 (>60 ml/min/1.73 sqM) Est GFR (CKD-EPI)NonAf 81 (>60 ml/min/1.73 sqM) Glucose 71 L (74-99) mg/dL Calcium 8.6 (8.4-10.2) mg/dL Total Bilirubin 0.7 (0.2-1.3) mg/dL AST 23 (14-36) U/L ALT 12 (4-34) U/L Alkaline Phosphatase 57 (38-126) U/L Total Protein 7.0 (6.3-8.2) g/dL Albumin 3.8 (3.5-5.0) g/dL - Radiology Data Radiology results: image reviewed (Pelvis, left femur and left knee x-ray shows no acute process.) Disposition Clinical Impression: Weakness, Fall Disposition: ADMITTED IP TO THIS HOSP Is patient prescribed a controlled substance at d/c from ED?: No Referrals: Nicholas Hart MD [Primary Care Provider] - 1-2 days Time of Disposition: 14:47
[2021-07-23 13:28] LABS: Anisocytosis Slight; Basophils # (A) 0.1 k/uL (0-0.2); Basophils % (A) 1 %; Eosinophils # (A) 0.3 k/uL (0-0.7); Eosinophils % (A) 3 %; HGB 10.2 gm/dL (11.4-16.0); Hypochromasia Marked; Lymphocytes # (A) 1.5 k/uL (1.0-4.8); Lymphocytes % (A) 14 %; MCH 24.8 pg (25.0-35.0); MCHC 29.2 g/dL (31.0-37.0); MCV 84.9 fL (80.0-100.0); Mean Platelet Volume 6.9; Monocytes # (A) 0.7 k/uL (0-1.0); Monocytes % (A) 7 %; Neutrophils # (A) 7.6 k/uL (1.3-7.7); Neutrophils % (A) 74 %; Platelet Count 207 k/uL (150-450); RBC 4.12 m/uL (3.80-5.40); RDW 17.7 % (11.5-15.5); WBC 10.2 k/uL (3.8-10.6)
[2021-07-23 13:46] LABS: ALT 12 U/L (4-34); AST 23 U/L (14-36); African American GFR (CKD) >90 (>60 ml/min/1.73 sqM); Albumin 3.8 g/dL (3.5-5.0); Alkaline Phosphatase 57 U/L (38-126); Anion Gap 6 mmol/L; Blood Urea Nitrogen 15 mg/dL (7-17); Calcium 8.6 mg/dL (8.4-10.2); Carbon Dioxide 37 mmol/L (22-30); Chloride 95 mmol/L (98-107); Glucose 71 mg/dL (74-99); Non-African American GFR(CKD) 81 (>60 ml/min/1.73 sqM); Sodium 138 mmol/L (137-145); Total Bilirubin 0.7 mg/dL (0.2-1.3)
[2021-07-23 13:51] LABS: INR 1.1 (<1.2); Partial Thromboplastin Time 25.1 sec (22.0-30.0); Prothrombin Time 12.1 sec (9.0-12.0)
--- NOTE | 2021-07-23 14:01 | XR ---
EXAMINATION TYPE: XR pelvis AP view, XR knee complete LT, XR femur LT DATE OF EXAM: 07/23/2021 CLINICAL HISTORY: Pelvic and left femur and knee pain after recent fall injury. TECHNIQUE: A single AP view of the pelvis is obtained. Two views of the left femur are obtained. 2 v iews left knee. COMPARISON: Prior pelvic x-ray April 28, 2015. FINDINGS: There is no acute fracture/dislocation evident in the pelvis. Advanced degenerative change right hip joint is redemonstrated with marked joint space loss and spurring. Pubic symphysis is intact. Sacroil iac joints are preserved. Surgical change of lumbar spine is partially imaged. Mild left-sided vascul ar calcification is present. 2 views of left femur show metallic artifact from left hip arthroplasty redemonstrated with 2 proxima l surgical anchors near greater tuberosity again seen. Osseous structures are demineralized. No acute displaced fracture. Overlying clothing material is present. Mild to moderate medial posterior arteri al vascular calcification. Images of left knee show [id number] medial tibiofemoral compartment joint space loss. There i s moderate narrowing and spurring patellofemoral compartment with additional anterior patellar spurri ng. There is old healed fracture of the proximal fibular diaphysis. There is no acute displaced fract ure seen. IMPRESSION: There is no acute fracture or dislocation in the pelvis, left femur, or left knee.
[2021-07-23] MEDS ORDERED: MORPHINE SULFATE 4 MG/ML SYRINGE IVP STA (14:19)
[2021-07-23] MEDS ORDERED: ACETAMINOPHEN TAB 325 MG TAB PO PRN (14:48)
[2021-07-23] MEDS ORDERED: IBUPROFEN 400 MG TAB PO PRN (14:48)
[2021-07-23] MEDS ORDERED: NALOXONE 0.4 MG/ML 1 ML VIAL IV PRN (14:48)
--- NOTE | 2021-07-23 14:48 | XR ---
EXAMINATION TYPE: XR chest 2V DATE OF EXAM: 07/23/2021 COMPARISON: Chest x-ray dated 08/02/2019 HISTORY: Trauma and pain TECHNIQUE: Frontal and lateral views of the chest are obtained. FINDINGS: There is no focal air space opacity, pleural effusion, or pneumothorax seen. The cardiac silhouette size is stable accounting for differences in technique, heart may be enlarged, aorta is de nse. Postop changes are noted the cervical spine. Patient is rotated. The osseous structures are sta ble, distal clavicle in the right is superiorly displaced in relation to the acromion, question some erosion, chronic posttraumatic change.. IMPRESSION: No acute cardiopulmonary process.
[2021-07-23] MEDS: SODIUM CHLORIDE 0.9% 1,000 ML IV SCH (15:15)
--- NOTE | 2021-07-23 16:34 | CT ---
EXAMINATION TYPE: CT brain wo con DATE OF EXAM: 07/23/2021 COMPARISON: 03/09/2016 HISTORY: ams CT DLP: 1145.4 mGycm Automated exposure control for dose reduction was used. FINDINGS: The ventricles, basal cisterns and sulci over the convexities are moderately enlarged consistent with moderate atrophy. There is no mass, mass effect or shift of midline structures. There is remote cortical and subcortical white matter infarct in the right parietal lobe which is see n previously. There is no acute intra or extra-axial hemorrhage.: THE POSTERIOR FOSSA INCLUDING THE BRAINSTEM, FOURTH VENTRICLE AND CEREBELLAR PONTINE ANGLES APPEAR NO RMAL. INTRAORBITAL CONTENTS APPEAR NORMAL AND SYMMETRIC. VISUALIZED PARANASAL SINUSES AND MASTOID AIR CELLS ARE WELL AERATED. IMPRESSION: 1. NO ACUTE BLEED OR MASS EFFECT. 2. 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 3. MODERATE GENERALIZED ATROPHY APPROPRIATE FOR THE PATIENT'S AGE.
[2021-07-23 18:26] LABS: Appearance,Urine Cloudy (Clear); Bilirubin,Urine Negative (Negative); Blood,Urine Negative (Negative); Color,Urine Yellow; Glucose,Urine (UA) Negative (Negative); Ketones,Urine Negative (Negative); Leukocyte Esterase,Urine Moderate (Negative); Nitrite,Urine Negative (Negative); Protein,Urine Negative (Negative); RBC,Urine 1 /hpf (0-5); Specific Gravity,Urine 1.013 (1.001-1.035); Squamous Epithelial Cell,Urine <1 /hpf (0-4); Urobilinogen,Urine <2.0 mg/dL (<2.0); WBC,Urine 8 /hpf (0-5)
[2021-07-24] MEDS ORDERED: GABAPENTIN 400 MG CAP PO SCH (00:45)
[2021-07-24] MEDS: MORPHINE SULFATE 4 MG/ML SYRINGE IV PRN ×6 (00:55→21:09)
[2021-07-24] MEDS: traMADol 50 MG TAB PO PRN (02:42)
[2021-07-24] MEDS: SODIUM CHLORIDE 0.9% 1,000 ML IV SCH ×3 (03:59→18:10)
[2021-07-24] MEDS: GABAPENTIN 400 MG CAP PO SCH ×2 (08:36→11:38)
[2021-07-24] MEDS: NEURONTIN 800 MG PO SCH ×2 (10:24→18:07)
[2021-07-24] MEDS: AMIODARONE 100 MG TAB PO SCH (11:42)
[2021-07-24] MEDS: PILOCARPINE 5 MG TAB PO SCH ×2 (11:42→18:06)
[2021-07-24] MEDS: APIXABAN 5 MG TAB PO SCH ×2 (11:42→21:08)
[2021-07-24] MEDS: metFORMIN 500 MG TAB PO SCH (18:07)
[2021-07-24] MEDS: METOPROLOL TARTRATE 50 MG TAB PO SCH (18:19)
--- NOTE | 2021-07-24 19:50 | P.HPIM ---
History of Present Illness H&P Date: 07/24/21 Chief Complaint: Weakness 80-year-old female presenting to the emergency Department with weakness and left leg injury. Patient had a fall yesterday. Patient needed assistance getting back in bed by EMS. This morning patient was unable to get out of bed. Patient states this is secondary to discomfort of her left knee area. Patient does have history of previous hip surgery. Patient denies any head injury or loss of consciousness. No syncope. Discomfort improved with morphine by EMS At the time of examination patient was reported to have elevated heart rate in the 140s and EKG revealed atrial fibrillation; patient denies any complaint of chest pain or shortness of breath; does report swelling both lower extremities up to the abdomen Review of Systems REVIEW OF SYSTEMS: CONSTITUTIONAL: No fever, no malaise, no fatigue. HEENT: No recent visual problems or hearing problems. Denied any sore throat. CARDIOVASCULAR: No chest pain, orthopnea, PND, no palpitations, no syncope. PULMONARY: No shortness of breath, no cough, no hemoptysis. GASTROINTESTINAL: No diarrhea, no nausea, no vomiting, no abdominal pain. NEUROLOGICAL: No headaches, no weakness, no numbness. HEMATOLOGICAL: Denies any bleeding or petechiae. GENITOURINARY: Denies any burning micturition, frequency, or urgency. MUSCULOSKELETAL/RHEUMATOLOGICAL: Denies any joint pain, swelling, or any muscle pain. ENDOCRINE: Denies any polyuria or polydipsia. The rest of the 14-point review of systems is negative. Past Medical History Past Medical History: Atrial Fibrillation, Coronary Artery Disease (CAD), Cancer, Diabetes Mellitus, Hyperlipidemia, Hypertension, Musculoskeletal Disorder, Neurologic Disorder, Osteoarthritis (OA), Pneumonia, Renal Disease, Rheumatoid Arthritis (RA), Skin Disorder, Thyroid Disorder Additional Past Medical History / Comment(s): Morbid obesity, chronic atrial fibrillation, diabetes mellitus type 2, hypertension, hyperlipidemia, spinal stenosis, osteoarthritis, hypothyroidism, hypertension, history of skin melanoma, history of bursitis with MRSA post I&D, rheumatoid arthritis, Sjogren's disease, 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 Past Anesthesia/Blood Transfusion Reactions: No Reported Reaction Past Psychological History: No Psychological Hx Reported Additional Psychological History / Comment(s): Pt resides with her spouse. pt drives. No home care.uses cane when up Smoking Status: Former smoker Past Alcohol Use History: None Reported Additional Past Alcohol Use History / Comment(s): Pt started smoking in college and QUIT SMOKING in 1969 Past Drug Use History: None Reported - Past Family History Mother Family Medical History: CVA/TIA Additional Family Medical History / Comment(s): RUPTURED BOWEL Father Family Medical History: Cancer, Pneumonia Additional Family Medical History / Comment(s): ASPIRATIVE PNA Sister(s) Additional Family Medical History / Comment(s): at age 34 with lupus Medications and Allergies Home Medications Medication Instructions Recorded Confirmed Type Gabapentin [Neurontin] 1,200 mg PO BID@0800,1700 02/27/14 07/23/21 History Lansoprazole [Prevacid] 15 mg PO HS 02/27/14 07/23/21 History hydrOXYzine HCL [Atarax] 50 mg PO HS 04/12/16 07/23/21 History Latanoprost [Xalatan 0.005%] 1 drop BOTH EYES HS 08/11/17 07/23/21 History Pilocarpine HCl [Salagen] 7.5 mg PO TID@0800,1200,1800 08/11/17 07/23/21 History metFORMIN HCL [Glucophage] 1,000 mg PO AC-BID 08/11/17 07/23/21 History Nitroglycerin Sl Tabs [Nitrostat] 0.4 mg SUBLINGUAL Q5M PRN #30 tab 08/13/17 07/23/21 Rx Apixaban [Eliquis] 5 mg PO BID #60 tab 08/30/17 07/23/21 Rx Adalimumab [Humira Pediatric 40 mg SQ WE 09/25/18 07/23/21 History Crohn's] Furosemide [Lasix] 80 mg PO DAILY 09/25/18 07/23/21 History HYDROcodone/APAP 10-325MG [[place] 1 tab PO Q6HR 09/25/18 07/23/21 History 10-325] Insulin Degludec [Tresiba] 46 units SQ DAILY 09/25/18 07/23/21 History Insulin Lispro [humaLOG Kwikpen] See Protocol SQ AC-TID 09/25/18 07/23/21 History Tolterodine Tartrate [Detrol LA] 4 mg PO DAILY 09/25/18 07/23/21 History Gabapentin 1,600 mg PO HS 11/14/18 07/23/21 History methocarbamoL [Robaxin] 750 mg PO TID@1200,1800,2100 11/14/18 07/23/21 History Calcium Carbonate/Vitamin D3 1 tab PO BID 11/19/18 07/23/21 History [Calcium 500-Vit D3 5 Mcg (200 Iu)] Clotrimazole [Lotrimin AF] 1 applic TOPICAL DAILY 11/19/18 07/23/21 History Glucosam/Cristian-Msm1/C/Finn/Bosw 1 tab PO DAILY 11/19/18 07/23/21 History [Glucosamine-Chondroitin Tablet] Metoprolol Tartrate [Lopressor] 100 mg PO BID 11/19/18 07/23/21 History Multivitamins, Thera [Multivitamin 1 tab PO DAILY 11/19/18 07/23/21 History (formulary)] Levothyroxine Sodium [Synthroid] 250 mcg PO DAILY 08/02/19 07/23/21 History Amiodarone [Cordarone] 100 mg PO DAILY 07/23/21 07/23/21 History Aspirin EC [Ecotrin Low Dose] 81 mg PO DAILY 07/23/21 07/23/21 History Cyclobenzaprine [Flexeril] 10 mg PO BID PRN 07/23/21 07/23/21 History Gabapentin 800 mg PO DAILY@1200 07/23/21 07/23/21 History dilTIAZem HCL 90 mg PO BID 07/23/21 07/23/21 History predniSONE 5 mg PO DAILY 07/23/21 07/23/21 History Allergies Allergy/AdvReac Type Severity Reaction Status Date / Time adhesive Allergy Rash/Hives Verified 07/23/21 13:55 cephalexin [From Keflex] Allergy Rash/Hives Verified 07/23/21 13:55 grass pollen Allergy Unknown Verified 07/23/21 13:55 mold Allergy Unknown Verified 07/23/21 13:55 Sulfa (Sulfonamide Allergy Rash/Hives Verified 07/23/21 13:55 Antibiotics) newspaper ink Allergy Mild Unknown Uncoded 08/02/19 11:25 Physical Exam Vitals: Vital Signs Temp Pulse Pulse Resp BP BP Pulse Ox 07/24/21 08:40 98.2 F 96 16 146/72 96 07/24/21 02:15 98.8 F 111 H 20 146/65 94 L 07/23/21 14:25 84 20 115/94 95 07/23/21 12:55 98.2 F 84 20 116/63 98 Intake and Output 07/23/21 07/24/21 07/24/21 22:59 06:59 14:59 Intake Total 118 Output Total 650 Balance -650 118 Intake: Oral 118 Output: Urine 650 Other: Voiding Method External Catheter External Catheter External Catheter # Voids 1 Weight 136.078 kg PHYSICAL EXAMINATION: GENERAL: The patient is alert and oriented x3, not in any acute distress. Well developed, well nourished. HEENT: Pupils are round and equally reacting to light. EOMI. No scleral icterus. No conjunctival pallor. Normocephalic, atraumatic. No pharyngeal erythema. No thyromegaly. CARDIOVASCULAR: S1 and S2 present. No murmurs, rubs, or gallops. PULMONARY: Chest is clear to auscultation, no wheezing or crackles. ABDOMEN: Soft, nontender, nondistended, normoactive bowel sounds. No palpable organomegaly. MUSCULOSKELETAL: No joint swelling or deformity. EXTREMITIES: No cyanosis, clubbing, or pedal edema. NEUROLOGICAL: Gross neurological examination did not reveal any focal deficits. SKIN: No rashes. Results CBC & Chem 7: 07/23/21 13:12 07/23/21 13:12 Labs: Abnormal Lab Results - Last 24 Hours (Table) 07/23/21 07/23/21 07/23/21 Range/Units 13:12 13:12 13:12 Hgb 10.2 L (11.4-16.0) gm/dL MCH 24.8 L (25.0-35.0) pg MCHC 29.2 L (31.0-37.0) g/dL RDW 17.7 H (11.5-15.5) % PT 12.1 H (9.0-12.0) sec Chloride 95 L (98-107) mmol/L Carbon Dioxide 37 H (22-30) mmol/L Glucose 71 L (74-99) mg/dL Urine Appearance (Clear) Ur Leukocyte Esterase (Negative) Urine WBC (0-5) /hpf 07/23/21 Range/Units 18:17 Hgb (11.4-16.0) gm/dL MCH (25.0-35.0) pg MCHC (31.0-37.0) g/dL RDW (11.5-15.5) % PT (9.0-12.0) sec Chloride (98-107) mmol/L Carbon Dioxide (22-30) mmol/L Glucose (74-99) mg/dL Urine Appearance Cloudy H (Clear) Ur Leukocyte Esterase Moderate H (Negative) Urine WBC 8 H (0-5) /hpf Assessment and Plan Assessment: 1. Atrial fibrillation with RVR - Start EKGs order; patient is placed on telemetry; heart rate down in 80s to 90s - Patient remains on metoprolol 100 mg twice a day and Cardizem 90 mg; amiodarone 100 mg daily - Patient is currently anticoagulated with Eliquis 5 mg twice a day 2. Fluid overload/CHF; we will order BNP; monitor strict RAEGAN's and daily weights; low-salt and fluid restricted diet - Order 2-D echo; patient takes Lasix 80 mg daily; we will hold on oral Lasix and switched to Lasix 60 mg IV every 12 hours - Consult cardiology for further recommendations 3. Pain and swelling both lower extremities; rule out DVT; we will check venous Doppler both lower extremities 4. Hypertension; stable on Cardizem, metoprolol and Lasix 5. Hypothyroidism; levothyroxin 250 MCG daily 6. Diabetes mellitus controlled with insulin; continue with home dose of Levemir 46 units subcu daily; metformin thousand milligrams twice a day - We will continue to monitor Accu-Cheks every before meals and at bedtime with insulin sliding scale DVT prophylaxis; SCDs/systemic anticoagulation CODE STATUS; full code
[2021-07-24 20:19] LABS: Glucose,Whole Blood 143 mg/dL (75-99)
[2021-07-24] MEDS: PANTOPRAZOLE 40 MG TABLET PO SCH (21:08)
[2021-07-24] MEDS: DILTIAZEM ORAL 30 MG TAB PO SCH (21:08)
[2021-07-24] MEDS: LATANOPROST 0.005% OPHTH DROPS 2.5 ML BTL BOTH EYES SCH (21:08)
[2021-07-24] MEDS: CALCIUM CARB-VIT D 500 MG-5 MCG TAB PO SCH (21:08)
--- NOTE | 2021-07-24 21:14 | US ---
EXAMINATION TYPE: US venous doppler duplex LE DATE OF EXAM: 07/24/2021 8:26 PM COMPARISON: NONE CLINICAL HISTORY: swelling. Leg pain and swelling SIDE PERFORMED: Bilateral TECHNIQUE: The lower extremity deep venous system is examined utilizing real time linear array sonog matthew with graded compression, doppler sonography and color-flow sonography. VESSELS IMAGED: Common Femoral Vein Deep Femoral Vein Greater Saphenous Vein * Femoral Vein Popliteal Vein Small Saphenous Vein * Proximal Calf Veins (* superficial vessels) Limited exam, pt morbidly obese, unable to tolerate compressions bilaterally Right Leg: Visualized portions appear negative for DVT, right EIV, CFV, Deep FV, and GSV unable to b e visualized, probable Hilton's Cyst right pop fossa= 5.7 x 2.1 x 4.1 cm Left Leg: Visualized portions appear negative for DVT, left EIV, CFV, Deep FV, and GSV unable to be visualized IMPRESSION: No evidence of deep vein thrombosis in both legs. There is right-sided popliteal cyst. Akua palafox exam.
[2021-07-24] MEDS ORDERED: METOPROLOL TARTRATE 50 MG TAB PO STA (22:01)
[2021-07-25] MEDS: MORPHINE SULFATE 4 MG/ML SYRINGE IV PRN ×5 (04:01→20:41)
[2021-07-25] MEDS: traMADol 50 MG TAB PO PRN ×2 (06:04→14:53)
[2021-07-25] MEDS: LEVOTHYROXINE 125 MCG TAB PO SCH (06:05)
[2021-07-25 08:01] LABS: Glucose,Whole Blood 123 mg/dL (75-99)
[2021-07-25] MEDS: CALCIUM CARB-VIT D 500 MG-5 MCG TAB PO SCH ×2 (08:05→20:39)
[2021-07-25] MEDS: DILTIAZEM ORAL 30 MG TAB PO SCH ×3 (08:05→20:39)
[2021-07-25] MEDS: AMIODARONE 100 MG TAB PO SCH (08:05)
[2021-07-25] MEDS: ASPIRIN 81 MG PO SCH (08:05)
[2021-07-25] MEDS: MULTIVITAMINS, THERA 1 EACH TAB PO SCH (08:05)
[2021-07-25] MEDS: metFORMIN 500 MG TAB PO SCH ×2 (08:06→17:53)
[2021-07-25] MEDS: predniSONE 5 MG TAB PO SCH (08:06)
[2021-07-25] MEDS: OXYBUTYNIN 10 MG TAB.ER.24 PO SCH (08:06)
[2021-07-25] MEDS: APIXABAN 5 MG TAB PO SCH ×2 (08:06→20:39)
[2021-07-25] MEDS: PILOCARPINE 5 MG TAB PO SCH ×3 (08:07→17:52)
[2021-07-25] MEDS ORDERED: FUROSEMIDE 80 MG TAB PO SCH (09:00)
[2021-07-25 09:16] LABS: Anion Gap 10.4 mmol/L (10.00-18.00); BUN/Creat Ratio 15.61 Ratio (12.00-20.00); Blood Urea Nitrogen 10.1 mg/dL (9.0-27.0); Calcium 8.7 mg/dL (8.7-10.3); Carbon Dioxide 28.9 mmol/L (20.0-27.5); Non-African American GFR(CKD) 84.6 (60.0-200.0); Potassium 4.3 mmol/L (3.5-5.5)
[2021-07-25 09:24] LABS: Basophils # (A) 0.05 X 10*3/uL (0.00-0.10); Basophils % (A) 0.5 %; Eosinophils # (A) 0.35 X 10*3/uL (0.04-0.35); Eosinophils % (A) 3.4 %; HCT 33.8 % (37.2-46.3); HGB 9.6 g/dL (12.0-15.0); Immature Grans, Automated 0.3 %; Lymphocytes # (A) 2.38 X 10*3/uL (0.90-5.00); Lymphocytes % (A) 23.3 %; MCH 24.7 pg (27.0-32.0); MCHC 28.4 g/dL (32.0-37.0); MCV 87.1 fL (80.0-97.0); Mean Platelet Volume 10.4 fL (9.5-12.2); Monocytes # (A) 1.11 X 10*3/uL (0.20-1.00); Monocytes % (A) 10.9 %; NRBC Per 100 WBC 0 /100 WBCS (0.0-0.0); Neutrophils # (A) 6.28 X 10*3/uL (1.80-7.70); Neutrophils % (A) 61.6 %; Platelet Count 182 X 10*3/uL (140-440); RBC 3.88 X 10*6/uL (4.10-5.20); RDW 18.9 % (11.5-14.5)
[2021-07-25] MEDS: INSULIN DETEMIR (LEVEMIR) 100 UNIT/ML SYR SQ SCH (11:45)
[2021-07-25] MEDS: SODIUM CHLORIDE 0.9% 1,000 ML IV SCH ×2 (11:45→20:40)
[2021-07-25] MEDS: METOPROLOL TARTRATE 50 MG TAB PO SCH ×2 (11:57→20:39)
[2021-07-25] MEDS: NEURONTIN 800 MG PO SCH ×2 (11:57→17:52)
[2021-07-25 12:09] LABS: Glucose,Whole Blood 156 mg/dL (75-99)
--- NOTE | 2021-07-25 12:37 | CONS ---
CONSULTATION HISTORY OF PRESENT ILLNESS: Rosalva is a 80-year-old lady with multiple and complex medical problems, including persistent atrial fibrillation, hypertension, insulin-requiring diabetes, hypothyroidism, who presented to the hospital following a fall at home that was mechanical in nature with discomfort in her left leg. The patient had atrial fibrillation with rapid ventricular rate due to which she is admitted to hospital and Cardiology had been consulted. She does not have chest pain or difficulty in breathing. She has mild bilateral leg edema. She did not have any syncope. Her predominant symptom at the moment is leg discomfort and patient had received morphine for the same. Her EKG shows atrial fibrillation with rapid ventricular rate with secondary ST-T wave changes. Troponins have come back mildly elevated at 0.04 and 0.04, probably due to supply/demand mismatch related to atrial fibrillation with rapid ventricular rate. Her BNP is elevated and she has mild bilateral leg edema. These could be related to acute exacerbation of chronic congestive heart failure. The patient had an echocardiogram last year that showed ejection fraction of 55%, enlarged right ventricle, mild aortic regurgitation and moderate mitral regurgitation. PAST MEDICAL HISTORY: Significant for persistent atrial fibrillation. Mild nonobstructive coronary artery disease based on cardiac catheterization in 2018, hypertension, diabetes, dyslipidemia. MEDICATIONS: Medications at home include: Amiodarone, Eliquis 5 b.i.d., aspirin, Cardizem CD 90 b.i.d., Lasix 80 mg daily, , Synthroid, Glucophage, Lopressor, Narcan, Ditropan, Protonix and Ultram. ALLERGIC: TO KEFLEX, MOLD, SULFA AND POLLEN. FAMILY HISTORY: Negative for premature coronary artery disease. SOCIAL HISTORY: Negative for smoking, EtOH abuse or drug abuse. REVIEW OF SYSTEMS: 14 out of review of systems has been performed. The pertinent are the patient had a fall and had pain in the left and she had a fall today. Rest of the system review is unremarkable. EXAM: Comfortable at rest. Heart rate is 130 beats per minute. Blood pressure is 149/85. Respiratory 18, O2 saturation 95% on room air. There is no jugular venous distention. Chest exam reveals good air entry bilaterally. Heart exam reveals first and second heart sounds, irregular rhythm and an ejection systolic murmur in the aortic area. Abdomen: Soft. Exam of extremities reveals bilateral 2+ pitting edema with chronic stasis changes and palpable pulses. LAB: Showed that the hemoglobin is low at 9.6, platelet count is 182, potassium is 4.3, creatinine 0.6. Troponins are mildly elevated. BNP is elevated. EKG is abnormal as described above. ASSESSMENT AND PLAN: 1. Persistent atrial fibrillation with poorly controlled ventricular rate. 2. Acute exacerbation of chronic diastolic heart failure. 3. Status post fall. 4. Hypertension. 5. Dyslipidemia. PLAN: The patient's heart rate is still poorly controlled. I am going to hold the amiodarone at this time, go up on the Cardizem to 90 t.i.d. and add digoxin 0.25 mg daily. I will increase the dose of oral Cardizem, add digoxin and continue the metoprolol. I will obtain a 2D echo on her tomorrow morning. MMODL / IJN: [id number] /
[2021-07-25 17:09] LABS: Glucose,Whole Blood 185 mg/dL (75-99)
[2021-07-25] MEDS: PANTOPRAZOLE 40 MG TABLET PO SCH (20:39)
--- NOTE | 2021-07-25 20:39 | P.PN ---
Subjective Progress Note Date: 07/25/21 Principal diagnosis: Persistent if to fibrillation with RVR Acute exacerbation of chronic diastolic CHF Status post fall/debility 80-year-old female presenting to the emergency Department with weakness and left leg injury. Patient had a fall yesterday. Patient needed assistance getting back in bed by EMS. This morning patient was unable to get out of bed. Patient states this is secondary to discomfort of her left knee area. Patient does have history of previous hip surgery. Patient denies any head injury or loss of consciousness. No syncope. Discomfort improved with morphine by EMS At the time of examination patient was reported to have elevated heart rate in the 140s and EKG revealed atrial fibrillation; patient denies any complaint of chest pain or shortness of breath; does report swelling both lower extremities up to the abdomen Cardiology on board for acute exacerbation of diastolic CHF; patient has been placed on Lasix 60 mg IV every 12 hours; patient's heart rate remains poorly controlled; cardiology recommending to discontinue amiodarone at this time and increased Cardizem up to 90 mg 3 times a day with addition of digoxin 0.25 mg daily - 2-D echo is ordered and pending Objective - Vital Signs Vital signs: Vital Signs Temp 98.5 F 07/25/21 14:42 Pulse 85 07/25/21 14:42 Resp 18 07/25/21 14:42 BP 152/74 07/25/21 14:42 Pulse Ox 96 07/25/21 14:42 FiO2 Intake & Output 07/24/21 07/25/21 07/25/21 18:59 06:59 18:59 Intake Total 718 Output Total 600 1200 Balance 718 -600 -1200 Intake: Intake, IV Titration 600 Amount Sodium Chloride 0.9% 1, 600 000 ml @ 75 mls/hr IV . [id number] [facility] Rx#:[id number] Oral 118 Output: Urine 600 1200 Other: Voiding Method External Catheter External Catheter - Exam PHYSICAL EXAMINATION: GENERAL: The patient is alert and oriented x3, not in any acute distress. Well developed, well nourished. HEENT: Pupils are round and equally reacting to light. EOMI. No scleral icterus. No conjunctival pallor. Normocephalic, atraumatic. No pharyngeal erythema. No th yromegaly. CARDIOVASCULAR: S1 and S2 present. No murmurs, rubs, or gallops. PULMONARY: Chest is clear to auscultation, no wheezing or crackles. ABDOMEN: Soft, nontender, nondistended, normoactive bowel sounds. No palpable organomegaly. MUSCULOSKELETAL: No joint swelling or deformity. EXTREMITIES: No cyanosis, clubbing, or pedal edema. NEUROLOGICAL: Gross neurological examination did not reveal any focal deficits. SKIN: No rashes. - Labs CBC & Chem 7: 07/25/21 06:07 07/25/21 06:07 Labs: Abnormal Lab Results - Last 24 Hours (Table) 07/24/21 07/24/21 07/25/21 Range/Units 20:17 20:36 00:37 WBC (4.50-10.00) X 10*3/uL RBC (4.10-5.20) X 10*6/uL Hgb (12.0-15.0) g/dL Hct (37.2-46.3) % MCH (27.0-32.0) pg MCHC (32.0-37.0) g/dL RDW (11.5-14.5) % Monocytes # (0.20-1.00) X 10*3/uL Carbon Dioxide (20.0-27.5) mmol/L Glucose (70-110) mg/dL POC Glucose (mg/dL) 143 H (75-99) mg/dL Troponin I 0.044 H* 0.045 H* (0.000-0.034) ng/mL 07/25/21 07/25/21 07/25/21 Range/Units 06:07 06:07 08:00 WBC 10.20 H (4.50-10.00) X 10*3/uL RBC 3.88 L (4.10-5.20) X 10*6/uL Hgb 9.6 L (12.0-15.0) g/dL Hct 33.8 L (37.2-46.3) % MCH 24.7 L (27.0-32.0) pg MCHC 28.4 L (32.0-37.0) g/dL RDW 18.9 H (11.5-14.5) % Monocytes # 1.11 H (0.20-1.00) X 10*3/uL Carbon Dioxide 28.9 H (20.0-27.5) mmol/L Glucose 131 H (70-110) mg/dL POC Glucose (mg/dL) 123 H (75-99) mg/dL Troponin I (0.000-0.034) ng/mL 07/25/21 Range/Units 12:06 WBC (4.50-10.00) X 10*3/uL RBC (4.10-5.20) X 10*6/uL Hgb (12.0-15.0) g/dL Hct (37.2-46.3) % MCH (27.0-32.0) pg MCHC (32.0-37.0) g/dL RDW (11.5-14.5) % Monocytes # (0.20-1.00) X 10*3/uL Carbon Dioxide (20.0-27.5) mmol/L Glucose (70-110) mg/dL POC Glucose (mg/dL) 156 H (75-99) mg/dL Troponin I (0.000-0.034) ng/mL Assessment and Plan Assessment: 1. Atrial fibrillation with RVR - Start EKGs order; patient is placed on telemetry; heart rate down in 80s to 90s - Patient remains on metoprolol 100 mg twice a day and Cardizem 90 mg; amiodarone 100 mg daily - Patient is currently anticoagulated with Eliquis 5 mg twice a day 2. Fluid overload/CHF; we will order BNP; monitor strict RAEGAN's and daily weights; low-salt and fluid restricted diet - Order 2-D echo; patient takes Lasix 80 mg daily; we will hold on oral Lasix and switched to Lasix 60 mg IV every 12 hours - Consult cardiology for further recommendations 3. Pain and swelling both lower extremities; rule out DVT; we will check venous Doppler both lower extremities 4. Hypertension; stable on Cardizem, metoprolol and Lasix 5. Hypothyroidism; levothyroxin 250 MCG daily 6. Diabetes mellitus controlled with insulin; continue with home dose of Levemir 46 units subcu daily; metformin thousand milligrams twice a day - We will continue to monitor Accu-Cheks every before meals and at bedtime with insulin sliding scale DVT prophylaxis; SCDs/systemic anticoagulation CODE STATUS; full code
[2021-07-25] MEDS: LATANOPROST 0.005% OPHTH DROPS 2.5 ML BTL BOTH EYES SCH (20:40)
[2021-07-25] MEDS: FUROSEMIDE 10 MG/ML 10 ML VIAL IV SCH (20:40)
[2021-07-25 21:20] LABS: Glucose,Whole Blood 193 mg/dL (75-99)
[2021-07-26] MEDS: MORPHINE SULFATE 4 MG/ML SYRINGE IV PRN ×5 (01:59→22:15)
[2021-07-26] MEDS: LEVOTHYROXINE 125 MCG TAB PO SCH (05:41)
[2021-07-26] MEDS: traMADol 50 MG TAB PO PRN ×2 (05:45→20:03)
[2021-07-26 07:22] LABS: Glucose,Whole Blood 174 mg/dL (75-99)
[2021-07-26] MEDS: MULTIVITAMINS, THERA 1 EACH TAB PO SCH (08:16)
[2021-07-26] MEDS: APIXABAN 5 MG TAB PO SCH ×2 (08:16→19:49)
[2021-07-26] MEDS: metFORMIN 500 MG TAB PO SCH ×2 (08:16→17:23)
[2021-07-26] MEDS: METOPROLOL TARTRATE 50 MG TAB PO SCH ×2 (08:16→19:50)
[2021-07-26] MEDS: ASPIRIN 81 MG PO SCH (08:16)
[2021-07-26] MEDS: CALCIUM CARB-VIT D 500 MG-5 MCG TAB PO SCH ×2 (08:16→19:50)
[2021-07-26] MEDS: PILOCARPINE 5 MG TAB PO SCH ×3 (08:17→17:23)
[2021-07-26] MEDS: predniSONE 5 MG TAB PO SCH (08:17)
[2021-07-26] MEDS: AMIODARONE 100 MG TAB PO SCH (08:18)
[2021-07-26] MEDS: FUROSEMIDE 10 MG/ML 10 ML VIAL IV SCH ×2 (08:19→19:50)
[2021-07-26] MEDS: DILTIAZEM ORAL 30 MG TAB PO SCH ×3 (08:19→22:15)
[2021-07-26] MEDS: DIGOXIN 125 MCG TAB PO SCH (08:38)
[2021-07-26] MEDS: INSULIN DETEMIR (LEVEMIR) 100 UNIT/ML SYR SQ SCH (08:38)
[2021-07-26] MEDS: OXYBUTYNIN 10 MG TAB.ER.24 PO SCH (08:51)
[2021-07-26] MEDS: NEURONTIN 800 MG PO SCH ×2 (09:03→17:24)
--- NOTE | 2021-07-26 11:26 | P.PN ---
Subjective Progress Note Date: 07/26/21 Patient is a 80-year-old female with a known history of mild nonobstructive CAD persistent atrial fibrillation, hypertension, insulin dependent diabetes, hypothyroidism who initially presented to the hospital after a fall at home that was mechanical in nature. Patient's EKG showed her in atrial fibrillation with rapid ventricular rate. Patient's heart rate is better controlled today will continue digoxin, Cardizem, and amiodarone. TSH is 1.9. Echocardiogram is pending. Due to high fall risk Will discontinue her aspirin and continue with Eliquis only. Objective - Vital Signs Vital signs: Vital Signs Temp 98.1 F 07/26/21 07:00 Pulse 82 07/26/21 07:00 Resp 16 07/26/21 07:00 BP 157/81 07/26/21 07:00 Pulse Ox 97 07/26/21 07:00 FiO2 Intake & Output 07/25/21 07/26/21 07/26/21 18:59 06:59 18:59 Output Total 1200 900 Balance -1200 -900 Output: Urine 1200 900 Other: Voiding Method External Catheter External Catheter # Voids 2 - Exam PHYSICAL EXAM: VITAL SIGNS: Reviewed. GENERAL: Well-developed in no acute distress. HEENT: Head is normocephalic. Pupils are equal, round. Sclerae anicteric. Mucous membranes of the mouth are moist. NECK: Supple. No JVD or thyromegaly RESPIRATORY: Respirations even and unlabored. Lungs diminished to auscultation bilaterally. CARDIO: Regular rate and rhythm. S1 and S2 heard. No murmur or gallops. EXTREMITIES: Normal range of motion. No clubbing or cyanosis. Peripheral pulses intact. bilateral lower extremity edema NEURO: Orientated to person, time, mood is appropriate - Labs CBC & Chem 7: 07/25/21 06:07 07/25/21 06:07 Labs: Abnormal Lab Results - Last 24 Hours (Table) 07/25/21 07/25/21 07/25/21 Range/Units 12:06 17:07 21:18 POC Glucose (mg/dL) 156 H 185 H 193 H (75-99) mg/dL 07/26/21 Range/Units 07:20 POC Glucose (mg/dL) 174 H (75-99) mg/dL Assessment and Plan Assessment: Persistent atrial fibrillation with controlled ventricle rate Acute exacerbation of chronic diastolic heart failure Status post fall Hypertension Dyslipidemia Plan: Discontinue aspirin due to high fall risk Continue with all other current cardiac medications Echocardiogram pending Continue with telemetry monitoring Continue with strict I's and O's Further recommendations based on clinical course The above impression and plan of care have been discussed and directed by the signing physician. Stephanie Youngblood, nurse practitioner, acting as scribe for signing physician.
[2021-07-26 12:00] LABS: Glucose,Whole Blood 166 mg/dL (75-99)
[2021-07-26] MEDS: SODIUM CHLORIDE 0.9% 1,000 ML IV SCH (13:54)
[2021-07-26 17:23] LABS: Glucose,Whole Blood 180 mg/dL (75-99)
[2021-07-26] MEDS: LATANOPROST 0.005% OPHTH DROPS 2.5 ML BTL BOTH EYES SCH (19:50)
[2021-07-26] MEDS: PANTOPRAZOLE 40 MG TABLET PO SCH (19:51)
[2021-07-26 20:31] LABS: Glucose,Whole Blood 164 mg/dL (75-99)
[2021-07-26 22:01] LABS: Anisocytosis Slight; HCT 36.5 % (34.0-46.0); HGB 10.3 gm/dL (11.4-16.0); Hypochromasia Marked; MCH 25.1 pg (25.0-35.0); MCHC 28.3 g/dL (31.0-37.0); MCV 88.6 fL (80.0-100.0); Mean Platelet Volume 6.8; Platelet Count 239 k/uL (150-450); RBC 4.12 m/uL (3.80-5.40); RDW 17.7 % (11.5-15.5); WBC 11.3 k/uL (3.8-10.6)
[2021-07-26] MEDS ORDERED: ACETAMINOPHEN TAB 325 MG TAB PO STA (22:05)
[2021-07-26 22:09] LABS: African American GFR (CKD) >90 (>60 ml/min/1.73 sqM); Anion Gap 7 mmol/L; Blood Urea Nitrogen 16 mg/dL (7-17); Calcium 8.5 mg/dL (8.4-10.2); Carbon Dioxide 32 mmol/L (22-30); Chloride 97 mmol/L (98-107); Glucose 168 mg/dL (74-99); Magnesium 1.5 mg/dL (1.6-2.3); Non-African American GFR(CKD) 87 (>60 ml/min/1.73 sqM); Potassium 3.6 mmol/L (3.5-5.1); Sodium 136 mmol/L (137-145)
--- NOTE | 2021-07-26 22:10 | P.PN ---
Subjective 80-year-old female presenting to the emergency Department with weakness and left leg injury. Patient had a fall yesterday. Patient needed assistance getting back in bed by EMS. This morning patient was unable to get out of bed. Patient states this is secondary to discomfort of her left knee area. Patient does have history of previous hip surgery. Patient denies any head injury or loss of consciousness. No syncope. Discomfort improved with morphine by EMS At the time of examination patient was reported to have elevated heart rate in the 140s and EKG revealed atrial fibrillation; patient denies any complaint of chest pain or shortness of breath; does report swelling both lower extremities up to the abdomen Cardiology on board for acute exacerbation of diastolic CHF; patient has been placed on Lasix 60 mg IV every 12 hours; patient's heart rate remains poorly controlled; cardiology recommending to discontinue amiodarone at this time and increased Cardizem up to 90 mg 3 times a day with addition of digoxin 0.25 mg daily - 2-D echo is ordered and pending I am resuming the care of the patient today 07/26/2021 This is a pleasant 80 years old female who presents with fall at rest from. She has generalized weakness and severe osteoarthritis of the knee. Patient states that she has chronic history of back and neck pain and she had previous fusion surgeries of her neck and back more than 10 years ago, her orthopedic is out of the town. She is complaining of from chronic leg weakness, but now is worsened by pain, she does not think her leg weakness is getting worse per se. No upper extremity weakness. No numbness. No dizziness. No chest pain. No dyspnea while sitting in bed. She was found to have with elevated troponin and acute CHF, diastolic type and she was currently covered with IV Lasix 60 mg twice daily. Also she was on Eliquis at home 5 mg which is continued with cardiology team followed closely for her A. fib and RVR. She has mild coronary artery disease and because of fall risk I discussed the case with cardiology team who agreed to discontinue aspirin. Also she is on home dose of prednisone of 5 mg. She is diabetic on metformin and Levemir, also she is on metoprolol and amiodarone, digoxin is admitted today by cardiology team X-rays of the left knee and femur is negative, chest x-ray showing no significant infiltrate. CT of the brain is negative. Ultrasound of both legs is negative for DVT. Labs showing WBC of 10.2, hemoglobin 9.6, repeat labs tonight ordered for tonight. Patient is getting Lasix 60 mg IV twice daily and normal saline 75 mL/h together, we are going to discontinue IV fluid for her a CHF Review of systems CONSTITUTIONAL: No fever, no malaise, no fatigue. HEENT: No recent visual problems or hearing problems. Denied any sore throat. CARDIOVASCULAR: No orthopnea, PND, no palpitations, no syncope. PULMONARY: No shortness of breath, no cough, no hemoptysis. GASTROINTESTINAL: No diarrhea, no nausea, no vomiting, no abdominal pain. Normoactive bowel sounds. NEUROLOGICAL: No dizziness, no slurred speech, no blurred vision, no numbness. Active Medications Generic Name Dose Route Start Last Admin Trade Name Freq PRN Reason Stop Dose Admin Acetaminophen 650 mg 07/23/21 14:48 Acetaminophen Tab 325 Mg Tab PO Q6HR PRN Mild Pain or Fever > 100.5 Amiodarone HCl 100 mg 07/24/21 10:45 07/26/21 08:18 Amiodarone 100 Mg Tab PO 100 mg DAILY ASHUTOSH Administration Apixaban 5 mg 07/24/21 10:45 07/26/21 19:49 Apixaban 5 Mg Tab PO 5 mg BID ASHUTOSH Administration Protocol Calcium Carbonate 1 each 07/24/21 21:00 07/26/21 19:50 Calcium Carb-Vit D 500 Mg-5 Mcg Tab PO 1 each BID ASHUTOSH Administration Digoxin 125 mcg 07/26/21 09:00 07/26/21 08:38 Digoxin 125 Mcg Tab PO 125 mcg DAILY ASHUTOSH Administration Diltiazem HCl 90 mg 07/25/21 16:00 07/26/21 17:23 Diltiazem Oral 30 Mg Tab PO 90 mg TID ASHUTOSH Administration Furosemide 60 mg 07/25/21 21:00 07/26/21 19:50 Furosemide 10 Mg/Ml 10 Ml Vial IV 60 mg Q12HR ASHUTOSH Administration Ibuprofen 400 mg 07/23/21 14:48 Ibuprofen 400 Mg Tab PO Q6HR PRN Mild Pain or Fever > 100.5 Insulin Detemir 46 unit 07/25/21 09:00 07/26/21 08:38 Insulin Detemir (Levemir) 100 Unit/Ml Syr SQ 46 unit DAILY ASHUTOSH Administration Latanoprost 1 drops 07/24/21 21:00 07/26/21 19:50 Latanoprost 0.005% Ophth Drops 2.5 Ml Btl BOTH EYES 1 drops HS ASHUTOSH Administration Levothyroxine Sodium 250 mcg 07/25/21 06:30 07/26/21 05:41 Levothyroxine 125 Mcg Tab PO 250 mcg DAILY@0630 ASHUTOSH Administration Metformin HCl 1,000 mg 07/24/21 17:30 07/26/21 17:23 Metformin 500 Mg Tab PO 1,000 mg AC-BID ASHUTOSH Administration Metoprolol Tartrate 100 mg 07/24/21 21:00 07/26/21 19:50 Metoprolol Tartrate 50 Mg Tab PO 100 mg BID ASHUTOSH Administration Morphine Sulfate 4 mg 07/23/21 14:48 07/26/21 17:55 Morphine Sulfate 4 Mg/Ml Syringe IV 4 mg Q4HR PRN Administration Severe Pain Multivitamins 1 each 07/25/21 09:00 07/26/21 08:16 Multivitamins, Thera 1 Each Tab PO 1 each DAILY ASHUTOSH Administration Naloxone HCl 0.2 mg 07/23/21 14:48 Naloxone 0.4 Mg/Ml 1 Ml Vial IV Q2M PRN Opioid Reversal Neurontin 800 Mg Tab 1,200 each 07/24/21 10:15 07/26/21 17:24 PO 1,200 each BID@0800,1700 ASHUTOSH Administration Oxybutynin Chloride 10 mg 07/25/21 09:00 07/26/21 08:51 Oxybutynin 10 Mg Tab.Er.24 PO 10 mg DAILY ASHUTOSH Administration Pantoprazole Sodium 40 mg 07/24/21 21:00 07/26/21 19:51 Pantoprazole 40 Mg Tablet PO 40 mg HS ASHUTOSH Administration Pilocarpine HCl 7.5 mg 07/24/21 12:00 07/26/21 17:23 Pilocarpine 5 Mg Tab PO 7.5 mg TID@0800,1200,1800 ASHUTOSH Administration Prednisone 5 mg 07/25/21 09:00 07/26/21 08:17 Prednisone 5 Mg Tab PO 5 mg DAILY ASHUTOSH Administration Tramadol HCl 50 mg 07/23/21 14:48 07/26/21 20:03 Tramadol 50 Mg Tab PO 50 mg Q6H PRN Administration Moderate Pain Objective - Vital Signs Vital signs: Vital Signs Temp 98.1 F 07/26/21 07:00 Pulse 82 05/30/22 07:00 Resp 16 07/26/21 07:00 BP 157/81 07/26/21 07:00 Pulse Ox 97 07/26/21 07:00 FiO2 Intake & Output 07/25/21 07/26/21 07/26/21 18:59 06:59 18:59 Output Total 1200 900 Balance -1200 -900 Output: Urine 1200 900 Other: Voiding Method External Catheter External Catheter # Voids 2 - Exam GENERAL: The patient is alert and oriented x3, not in any acute distress. Morbidly obese, generally weak HEENT: Pupils are round and equally reacting to light. EOMI. No scleral icterus. No conjunctival pallor. Normocephalic, atraumatic. No pharyngeal erythema. No thyromegaly. CARDIOVASCULAR: S1 and S2 present. No murmurs, rubs, or gallops. PULMONARY: Chest is clear to auscultation, no wheezing or crackles. ABDOMEN: Soft, nontender, nondistended, normoactive bowel sounds. No palpable organomegaly. MUSCULOSKELETAL: No joint swelling or deformity. -EXTREMITIES: No cyanosis, clubbing, bilateral pitting like edema -NEUROLOGICAL: Cranial nerves are grossly intact. Sensation is intact. Strength is 5/5, they can examination is limited by severe pain in her knees and hip areas. Meningeal signs are absent. Gait is deferred SKIN: No rashes. no petechiae. - Labs CBC & Chem 7: 07/25/21 06:07 07/25/21 06:07 Labs: Abnormal Lab Results - Last 24 Hours (Table) 07/25/21 07/25/21 07/25/21 Range/Units 12:06 17:07 21:18 POC Glucose (mg/dL) 156 H 185 H 193 H (75-99) mg/dL 07/26/21 Range/Units 07:20 POC Glucose (mg/dL) 174 H (75-99) mg/dL Assessment and Plan Assessment: Persistent atrial fibrillation with RVR Acute on chronic diastolic CHF Elevated troponin, secondary to above Severe osteoarthritis with chronic neck and back pain, which may contributing to fall Anemia History of mild coronary artery disease Severe osteoarthritis of the knees Morbid obesity with BMI of 37.5. Diabetes mellitus Hypertension Hypothermic Plan: This is a pleasant 80 his old female who presents with A. fib and RVR, CHF and fall Continue with IV Lasix Continue with Eliquis, discontinue aspirin after discussion with sericulture teacher Discontinue IV fluids Continue with prednisone Online Advertising Director team on the case We going to reconsult orthopedic team given her severe osteoarthritis which may contribute to her falling Prior to check urinalysis and bladder scan Labs and medication were reviewed.. Continue same treatment. Continue with symptomatic treatment. Resume home medication. Monitor lytes and vitals. DVT and GI prophylaxis. Further recommendations as per clinical course of the patient DVT prophylaxis: Eliquis GI Prophylaxis: Ppi PT/OT: Pending Prognosis is guarded
[2021-07-26 23:32] LABS: Appearance,Urine Clear (Clear); Bilirubin,Urine Negative (Negative); Blood,Urine Negative (Negative); Color,Urine Light Yellow; Glucose,Urine (UA) Negative (Negative); Ketones,Urine Negative (Negative); Leukocyte Esterase,Urine Negative (Negative); Nitrite,Urine Negative (Negative); Protein,Urine Negative (Negative); Specific Gravity,Urine 1.009 (1.001-1.035); Urobilinogen,Urine <2.0 mg/dL (<2.0)
[2021-07-27] MEDS ORDERED: Magnesium Replacement Protocol 1 EACH MISC MISCELLANE PRN (00:43)
[2021-07-27] MEDS: TAMSULOSIN 0.4 MG CAP.ER.24H PO SCH ×2 (01:37→17:42)
[2021-07-27] MEDS: MORPHINE SULFATE 4 MG/ML SYRINGE IV PRN ×5 (02:15→21:53)
[2021-07-27] MEDS: LEVOTHYROXINE 125 MCG TAB PO SCH (05:45)
[2021-07-27 07:40] LABS: Glucose,Whole Blood 87 mg/dL (75-99)
--- NOTE | 2021-07-27 08:21 | P.PN ---
Subjective Principal diagnosis: Urinary retention The patient is here status post weakness. Still not ambulatory. Element of urinary retention stated. Ruth catheter and is now been placed. No significant nausea, vomiting or diarrhea Objective - Vital Signs Vital signs: Vital Signs Temp 98.1 F 07/27/21 02:12 Pulse 62 07/27/21 02:12 Resp 18 07/27/21 02:12 BP 124/51 07/27/21 02:12 Pulse Ox 98 07/27/21 02:12 FiO2 Intake & Output 07/26/21 07/27/21 07/27/21 18:59 06:59 18:59 Intake Total 600 Output Total 1550 350 Balance -950 -350 Intake: Intake, IV Titration 600 Amount Sodium Chloride 0.9% 1, 600 000 ml @ 75 mls/hr IV . [id number] [facility] Rx#:[id number] Output: Urine 1550 350 Other: Voiding Method External Catheter External Catheter # Voids 0 - Constitutional General appearance: Present: morbidly obese - EENT Eyes: Absent: abnormal pupil - Neck Neck: Absent: lymphadenopathy - Respiratory Respiratory: bilateral: CTA - Cardiovascular Rhythm: regular Heart sounds: normal: S1, S2 Abnormal Heart Sounds: Absent: S3 Gallop - Gastrointestinal General gastrointestinal: Present: soft. Absent: tenderness - Integumentary Integumentary: Present: normal - Musculoskeletal Musculoskeletal: Present: generalized weakness - Labs CBC & Chem 7: 07/26/21 21:41 07/26/21 21:41 Labs: Abnormal Lab Results - Last 24 Hours (Table) 07/26/21 07/26/21 07/26/21 Range/Units 11:57 17:22 20:30 WBC (3.8-10.6) k/uL Hgb (11.4-16.0) gm/dL MCHC (31.0-37.0) g/dL RDW (11.5-15.5) % Sodium (137-145) mmol/L Chloride (98-107) mmol/L Carbon Dioxide (22-30) mmol/L Glucose (74-99) mg/dL POC Glucose (mg/dL) 166 H 180 H 164 H (75-99) mg/dL Magnesium (1.6-2.3) mg/dL 07/26/21 07/26/21 Range/Units 21:41 21:41 WBC 11.3 H (3.8-10.6) k/uL Hgb 10.3 L (11.4-16.0) gm/dL MCHC 28.3 L (31.0-37.0) g/dL RDW 17.7 H (11.5-15.5) % Sodium 136 L (137-145) mmol/L Chloride 97 L (98-107) mmol/L Carbon Dioxide 32 H (22-30) mmol/L Glucose 168 H (74-99) mg/dL POC Glucose (mg/dL) (75-99) mg/dL Magnesium 1.5 L (1.6-2.3) mg/dL Assessment and Plan (1) Fall Current Visit: Yes Status: Acute Code(s): W19.XXXA - UNSPECIFIED FALL, INITIAL ENCOUNTER SNOMED Code(s): 1161297 (2) Generalized weakness Current Visit: Yes Status: Acute Code(s): R53.1 - WEAKNESS SNOMED Code(s): 77816674 (3) CAD (coronary artery disease) Current Visit: No Status: Acute Code(s): I25.10 - ATHSCL HEART DISEASE OF [place] CORONARY ARTERY W/O ANG PCTRS SNOMED Code(s): 22287781 (4) Chronic atrial fibrillation Current Visit: No Status: Acute Code(s): I48.2 - CHRONIC ATRIAL FIBRILLATION * DO NOT USE * SNOMED Code(s): 100921644 (5) Gout Current Visit: No Status: Acute Code(s): M10.9 - GOUT, UNSPECIFIED SNOMED Code(s): 24287793 (6) Increased weakness when ambulating Current Visit: No Status: Acute Code(s): R53.1 - WEAKNESS SNOMED Code(s): 946544205 Plan: Discharge planning. PT/OT. Leave Ruth catheter in for now. I anticipate need for rehab.
[2021-07-27] MEDS: OXYBUTYNIN 10 MG TAB.ER.24 PO SCH (09:00)
[2021-07-27] MEDS: DILTIAZEM ORAL 30 MG TAB PO SCH ×3 (09:00→20:56)
[2021-07-27] MEDS: PILOCARPINE 5 MG TAB PO SCH ×3 (09:01→17:42)
[2021-07-27] MEDS: CALCIUM CARB-VIT D 500 MG-5 MCG TAB PO SCH ×2 (09:02→20:56)
[2021-07-27] MEDS: AMIODARONE 100 MG TAB PO SCH (09:02)
[2021-07-27] MEDS: metFORMIN 500 MG TAB PO SCH ×2 (09:02→17:42)
[2021-07-27] MEDS: METOPROLOL TARTRATE 50 MG TAB PO SCH ×2 (09:02→20:56)
[2021-07-27] MEDS: predniSONE 5 MG TAB PO SCH (09:02)
[2021-07-27] MEDS: APIXABAN 5 MG TAB PO SCH ×2 (09:03→20:56)
[2021-07-27] MEDS: FUROSEMIDE 10 MG/ML 10 ML VIAL IV SCH ×2 (09:03→20:56)
[2021-07-27] MEDS: NEURONTIN 800 MG PO SCH ×2 (09:03→17:43)
[2021-07-27] MEDS: DIGOXIN 125 MCG TAB PO SCH (09:03)
[2021-07-27] MEDS: MULTIVITAMINS, THERA 1 EACH TAB PO SCH (09:10)
--- NOTE | 2021-07-27 10:00 | P.GSCN ---
History of Present Illness Consult date: 07/27/21 Reason for Consult: Urinary retention History of present illness: This is a 80 yo female Admitted to the hospital with following a fall, on ev aluation she patient was also tachycardic. Urology is consulted for urinary retention, postvoid residual was obtained which was 1 L. she indicated at baseline she is able to void, but has urinary incontinence. No history of recurrent UTIs gross hematuria. Attempted to place Ruth catheter by nurses was unsuccessful due to patient's obesity Review of Systems - Constitutional Denies fever, Denies weight loss - EENT Ears, nose, mouth and throat: Denies dysphagia - Cardiovascular Denies chest pain, Denies shortness of breath - Respiratory Denies cough, Denies 7 - Gastrointestinal Reports as per HPI - Genitourinary Genitourinary: Denies dysuria, Denies flank pain, Denies hematuria - Musculoskeletal Reports frequent falls - Neurological Denies headaches, Denies syncope Past Medical History Past Medical History: Atrial Fibrillation, Coronary Artery Disease (CAD), Cancer, Diabetes Mellitus, Hyperlipidemia, Hypertension, Musculoskeletal Disorder, Neurologic Disorder, Osteoarthritis (OA), Pneumonia, Renal Disease, Rheumatoid Arthritis (RA), Skin Disorder, Thyroid Disorder Additional Past Medical History / Comment(s): Morbid obesity, chronic atrial fibrillation, diabetes mellitus type 2, hypertension, hyperlipidemia, spinal stenosis, osteoarthritis, hypothyroidism, hypertension, history of skin melanoma, history of bursitis with MRSA post I&D, rheumatoid arthritis, Sjogren's disease, 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 Past Anesthesia/Blood Transfusion Reactions: No Reported Reaction Past Psychological History: No Psychological Hx Reported Additional Psychological History / Comment(s): Pt resides with her spouse. pt drives. No home care.uses cane when up Smoking Status: Former smoker Past Alcohol Use History: None Reported Additional Past Alcohol Use History / Comment(s): Pt started smoking in college and QUIT SMOKING in 1970 Past Drug Use History: None Reported - Past Family History Mother Family Medical History: CVA/TIA Additional Family Medical History / Comment(s): RUPTURED BOWEL Father Family Medical History: Cancer, Pneumonia Additional Family Medical History / Comment(s): ASPIRATIVE PNA Sister(s) Additional Family Medical History / Comment(s): at age 34 with lupus Medications and Allergies Home Medications Medication Instructions Recorded Confirmed Type Gabapentin [Neurontin] 1,200 mg PO BID@0800,1700 02/27/14 07/23/21 History Lansoprazole [Prevacid] 15 mg PO HS 02/27/14 07/23/21 History hydrOXYzine HCL [Atarax] 50 mg PO HS 04/12/16 07/23/21 History Latanoprost [Xalatan 0.005%] 1 drop BOTH EYES HS 08/11/17 07/23/21 History Pilocarpine HCl [Salagen] 7.5 mg PO TID@0800,1200,1800 08/11/17 07/23/21 History metFORMIN HCL [Glucophage] 1,000 mg PO AC-BID 08/11/17 07/23/21 History Nitroglycerin Sl Tabs [Nitrostat] 0.4 mg SUBLINGUAL Q5M PRN #30 tab 08/13/17 07/23/21 Rx Apixaban [Eliquis] 5 mg PO BID #60 tab 08/30/17 07/23/21 Rx Adalimumab [Humira Pediatric 40 mg SQ WE 09/25/18 07/23/21 History Crohn's] Furosemide [Lasix] 80 mg PO DAILY 09/25/18 07/23/21 History HYDROcodone/APAP 10-325MG [[place] 1 tab PO Q6HR 09/25/18 07/23/21 History 10-325] Insulin Degludec [Tresiba] 46 units SQ DAILY 09/25/18 07/23/21 History Insulin Lispro [humaLOG Kwikpen] See Protocol SQ AC-TID 09/25/18 07/23/21 History Tolterodine Tartrate [Detrol LA] 4 mg PO DAILY 09/25/18 07/23/21 History Gabapentin 1,600 mg PO HS 11/14/18 07/23/21 History methocarbamoL [Robaxin] 750 mg PO TID@1200,1800,2100 11/14/18 07/23/21 History Calcium Carbonate/Vitamin D3 1 tab PO BID 11/19/18 07/23/21 History [Calcium 500-Vit D3 5 Mcg (200 Iu)] Clotrimazole [Lotrimin AF] 1 applic TOPICAL DAILY 11/19/18 07/23/21 History Glucosam/Cristian-Msm1/C/Finn/Bosw 1 tab PO DAILY 11/19/18 07/23/21 History [Glucosamine-Chondroitin Tablet] Metoprolol Tartrate [Lopressor] 100 mg PO BID 11/19/18 07/23/21 History Multivitamins, Thera [Multivitamin 1 tab PO DAILY 11/19/18 07/23/21 History (formulary)] Levothyroxine Sodium [Synthroid] 250 mcg PO DAILY 08/02/19 07/23/21 History Amiodarone [Cordarone] 100 mg PO DAILY 07/23/21 07/23/21 History Aspirin EC [Ecotrin Low Dose] 81 mg PO DAILY 07/23/21 07/23/21 History Cyclobenzaprine [Flexeril] 10 mg PO BID PRN 07/23/21 07/23/21 History Gabapentin 800 mg PO DAILY@1200 07/23/21 07/23/21 History dilTIAZem HCL 90 mg PO BID 07/23/21 07/23/21 History predniSONE 5 mg PO DAILY 07/23/21 07/23/21 History Allergies Allergy/AdvReac Type Severity Reaction Status Date / Time adhesive Allergy Rash/Hives Verified 07/23/21 13:55 cephalexin [From Keflex] Allergy Rash/Hives Verified 07/23/21 13:55 grass pollen Allergy Unknown Verified 07/23/21 13:55 mold Allergy Unknown Verified 07/23/21 13:55 Sulfa (Sulfonamide Allergy Rash/Hives Verified 07/23/21 13:55 Antibiotics) newspaper ink Allergy Mild Unknown Uncoded 08/02/19 11:25 Surgical - Exam Vital Signs Temp Pulse Resp BP Pulse Ox 98.2 F 84 20 116/63 98 07/23/21 12:55 07/23/21 12:55 07/23/21 12:55 07/23/21 12:55 07/23/21 12:55 - General no distress, no pain - Eyes normal ocular movement, no pale - ENT normal nares, normal mucosa - Respiratory normal expansion, normal respiratory effort - Abdomen Abdomen: soft, non tender - Psychiatric oriented to time, oriented to person, no oriented to place Results - Labs 07/26/21 21:41 07/26/21 21:41 Abnormal Lab Results - Last 24 Hours (Table) 07/26/21 07/26/21 07/26/21 Range/Units 11:57 17:22 20:30 WBC (3.8-10.6) k/uL Hgb (11.4-16.0) gm/dL MCHC (31.0-37.0) g/dL RDW (11.5-15.5) % Sodium (137-145) mmol/L Chloride (98-107) mmol/L Carbon Dioxide (22-30) mmol/L Glucose (74-99) mg/dL POC Glucose (mg/dL) 166 H 180 H 164 H (75-99) mg/dL Magnesium (1.6-2.3) mg/dL 07/26/21 07/26/21 Range/Units 21:41 21:41 WBC 11.3 H (3.8-10.6) k/uL Hgb 10.3 L (11.4-16.0) gm/dL MCHC 28.3 L (31.0-37.0) g/dL RDW 17.7 H (11.5-15.5) % Sodium 136 L (137-145) mmol/L Chloride 97 L (98-107) mmol/L Carbon Dioxide 32 H (22-30) mmol/L Glucose 168 H (74-99) mg/dL POC Glucose (mg/dL) (75-99) mg/dL Magnesium 1.5 L (1.6-2.3) mg/dL Diabetes panel 07/26/21 Range/Units 21:41 Sodium 136 L (137-145) mmol/L Potassium 3.6 (3.5-5.1) mmol/L Chloride 97 L (98-107) mmol/L Carbon Dioxide 32 H (22-30) mmol/L BUN 16 (7-17) mg/dL Creatinine 0.60 (0.52-1.04) mg/dL Glucose 168 H (74-99) mg/dL Calcium 8.5 (8.4-10.2) mg/dL Thyroid panel 07/26/21 Range/Units 05:14 TSH 1.900 (0.350-5.500) uIU/mL Calcium panel 07/26/21 Range/Units 21:41 Calcium 8.5 (8.4-10.2) mg/dL Pituitary panel 07/26/21 07/26/21 Range/Units 05:14 21:41 Sodium 136 L (137-145) mmol/L Potassium 3.6 (3.5-5.1) mmol/L Chloride 97 L (98-107) mmol/L Carbon Dioxide 32 H (22-30) mmol/L BUN 16 (7-17) mg/dL Creatinine 0.60 (0.52-1.04) mg/dL Glucose 168 H (74-99) mg/dL Calcium 8.5 (8.4-10.2) mg/dL TSH 1.900 (0.350-5.500) uIU/mL Adrenal panel 07/26/21 Range/Units 21:41 Sodium 136 L (137-145) mmol/L Potassium 3.6 (3.5-5.1) mmol/L Chloride 97 L (98-107) mmol/L Carbon Dioxide 32 H (22-30) mmol/L BUN 16 (7-17) mg/dL Creatinine 0.60 (0.52-1.04) mg/dL Glucose 168 H (74-99) mg/dL Calcium 8.5 (8.4-10.2) mg/dL Assessment and Plan Assessment: 80-year-old female with 1 L urinary retention, nursing staff unable to place Ruth catheter secondary to patient's obesity. at baseline patient is able to void, but has urinary incontinence, most likely her incontinence from overflow incontinence, she mostly has incomplete voiding at baseline.. I Was able to place a 16-Tajik Ruth with return of clear urine. -keep catheter in for minimum of 1 week, if still in the hospital can perform a trial of void, otherwise can follow-up as an outpatient for trial of void.
[2021-07-27 10:59] LABS: African American GFR (CKD) 100.5 (60.0-200.0); Anion Gap 10.9 mmol/L (10.00-18.00); BUN/Creat Ratio 22.5 Ratio (12.00-20.00); Blood Urea Nitrogen 13.5 mg/dL (9.0-27.0); Calcium 8.7 mg/dL (8.7-10.3); Carbon Dioxide 30.1 mmol/L (20.0-27.5); Magnesium 1.6 mg/dL (1.5-2.4); Non-African American GFR(CKD) 86.7 (60.0-200.0); Potassium 3.5 mmol/L (3.5-5.5)
--- NOTE | 2021-07-27 12:11 | P.PN ---
Subjective Progress Note Date: 07/27/21 HISTORY OF PRESENT ILLNESS: This is 80-year-old female who is admitted to the hospital after sustaining a fall. The patient was found to be in A. fib with RVR. The patient was started on digoxin and her Cardizem dose was increased to 3 times a day. The patient remains in atrial fibrillation with a heart rate in the 80s. She denies chest pain or pressure. She denies shortness of breath. She remains on IV Lasix for lower extremity edema. PHYSICAL EXAM: VITAL SIGNS: Reviewed. GENERAL: Well-developed in no acute distress. NECK: Supple. No JVD or thyromegaly LUNGS: Respirations even and unlabored. Lungs essentially clear to auscultation bilaterally. HEART: Regular rate and rhythm. S1 and S2 heard. EXTREMITIES: Normal range of motion. No clubbing or cyanosis. Peripheral pulses intact. No lower extremity edema ASSESSMENT: Status post fall Paroxysmal atrial fibrillation Acute on chronic heart failure with preserved ejection fraction Hypertension Hyperlipidemia PLAN: 2D echo ordered. Await results. Continue current cardiac medications Continue IV lasix Continue telemetry monitoring Further recommendations pending patient course Nurse practitioner note has been reviewed by physician. Signing provider agrees with the documented findings, assessment, and plan of care. Objective - Vital Signs Vital signs: Vital Signs Temp 98.2 F 07/27/21 07:00 Pulse 69 07/27/21 07:00 Resp 19 07/27/21 07:00 BP 126/63 07/27/21 07:00 Pulse Ox 98 07/27/21 07:00 FiO2 Intake & Output 07/26/21 07/27/21 07/27/21 18:59 06:59 18:59 Intake Total 600 236 Output Total 2362 089 0720 Balance -950 -350 -764 Intake: Intake, IV Titration 600 Amount Sodium Chloride 0.9% 1, 600 000 ml @ 75 mls/hr IV . [id number] [facility] Rx#:[id number] Oral 236 Output: Urine 1791 526 8081 Other: Voiding Method External Catheter External Catheter Indwelling Catheter # Voids 0 - Labs CBC & Chem 7: 07/26/21 21:41 07/27/21 07:47 Labs: Abnormal Lab Results - Last 24 Hours (Table) 07/26/21 07/26/21 07/26/21 Range/Units 11:57 17:22 20:30 WBC (3.8-10.6) k/uL Hgb (11.4-16.0) gm/dL MCHC (31.0-37.0) g/dL RDW (11.5-15.5) % Sodium (137-145) mmol/L Chloride (98-107) mmol/L Carbon Dioxide (22-30) mmol/L BUN/Creatinine Ratio (12.00-20.00) Ratio Glucose (74-99) mg/dL POC Glucose (mg/dL) 166 H 180 H 164 H (75-99) mg/dL Magnesium (1.6-2.3) mg/dL 07/26/21 07/26/21 07/27/21 Range/Units 21:41 21:41 07:47 WBC 11.3 H (3.8-10.6) k/uL Hgb 10.3 L (11.4-16.0) gm/dL MCHC 28.3 L (31.0-37.0) g/dL RDW 17.7 H (11.5-15.5) % Sodium 136 L (137-145) mmol/L Chloride 97 L (98-107) mmol/L Carbon Dioxide 32 H 30.1 H (22-30) mmol/L BUN/Creatinine Ratio 22.50 H (12.00-20.00) Ratio Glucose 168 H (74-99) mg/dL POC Glucose (mg/dL) (75-99) mg/dL Magnesium 1.5 L (1.6-2.3) mg/dL
[2021-07-27 12:31] LABS: Glucose,Whole Blood 169 mg/dL (75-99)
--- NOTE | 2021-07-27 12:58 | P.CNOR ---
History of Present Illness - [facility] Consult date: 07/27/21 Requesting physician: Meek E Sheet History of present illness: She is a pleasant 80-year-old female who is seen and examined at bedside for further evaluation of her left lower extremity. She sustained a fall on 07/22/2021. She was unable to get off of the floor and back into her bed and needed assistance by the EMS. She was unable to get out of bed on the morning of 07/23/2021 and presented to the emergency department via EMS for further evaluation. Patient states she chronically uses a walker to aid in ambulation. She states since the fall she has had significant difficulty with mobility and weakness. She feels generally weaker specifically generally weak in the bilateral lower extremities. She initially was having some left lower extremity leg pain and most significant towards the knee. Multiple imaging modalities were taken including the pelvis, left hip, and left knee without evidence of acute fracture. She does have history of a left total hip arthroplasty. She states she has history of previous surgical intervention with fusion at her lumbar spine performed by Dr. Sorto. At the bedside she has difficulty lifting her legs off the bed independently. She states she has back pain as well. She has not had any imaging in regards to her lumbar spine. She is unwilling to roll over in bed with assistance for examination of her lumbar spine. She does have difficulty describing pains in her lower extremities. She is not complaining of a specific pain in the lower extremities but does state her legs hurt. She has been in bed over the weekend as I was told therapy was not available to help the patient increase her mobility and ambulation. Patient states she is unsure what kind of mobility she could perform independently. She was experiencing urinary retention this morning and a Ruth catheter was placed by urology. Nursing states patient did void her bladder yesterday unknowingly and did not sense that she was urinating. She continues to be seen by medicine and cardiology. When specifically questioned about it, patient denied saddle anesthesia. Patient does admit to a history of previous fracture to her left proximal fibula. Patient's other medical diagnoses include acute on chronic heart failure with preserved ejection fraction, persistent atrial fibrillation, hypertension, hyperlipidemia, insulin-dependent diabetes, obesity, and hypothyroidism. Cardiology is planning for a 2-D echocardiogram. Past Medical History Past Medical History: Atrial Fibrillation, Coronary Artery Disease (CAD), Cancer, Diabetes Mellitus, Hyperlipidemia, Hypertension, Musculoskeletal Disorder, Neurologic Disorder, Osteoarthritis (OA), Pneumonia, Renal Disease, Rheumatoid Arthritis (RA), Skin Disorder, Thyroid Disorder Additional Past Medical History / Comment(s): Morbid obesity, chronic atrial fibrillation, diabetes mellitus type 2, hypertension, hyperlipidemia, spinal stenosis, osteoarthritis, hypothyroidism, hypertension, history of skin melanoma, history of bursitis with MRSA post I&D, rheumatoid arthritis, Sjogren's disease, 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 Past Anesthesia/Blood Transfusion Reactions: No Reported Reaction Past Psychological History: No Psychological Hx Reported Additional Psychological History / Comment(s): Pt resides with her spouse. pt drives. No home care.uses cane when up Smoking Status: Former smoker Past Alcohol Use History: None Reported Additional Past Alcohol Use History / Comment(s): Pt started smoking in college and QUIT SMOKING in 1969 Past Drug Use History: None Reported - Past Family History Mother Family Medical History: CVA/TIA Additional Family Medical History / Comment(s): RUPTURED BOWEL Father Family Medical History: Cancer, Pneumonia Additional Family Medical History / Comment(s): ASPIRATIVE PNA Sister(s) Additional Family Medical History / Comment(s): at age 34 with lupus Medications and Allergies Home Medications Medication Instructions Recorded Confirmed Type Gabapentin [Neurontin] 1,200 mg PO BID@0800,1700 02/27/14 07/23/21 History Lansoprazole [Prevacid] 15 mg PO HS 02/27/14 07/23/21 History hydrOXYzine HCL [Atarax] 50 mg PO HS 04/12/16 07/23/21 History Latanoprost [Xalatan 0.005%] 1 drop BOTH EYES HS 08/11/17 07/23/21 History Pilocarpine HCl [Salagen] 7.5 mg PO TID@0800,1200,1800 08/11/17 07/23/21 History metFORMIN HCL [Glucophage] 1,000 mg PO AC-BID 08/11/17 07/23/21 History Nitroglycerin Sl Tabs [Nitrostat] 0.4 mg SUBLINGUAL Q5M PRN #30 tab 08/13/17 07/23/21 Rx Apixaban [Eliquis] 5 mg PO BID #60 tab 08/30/17 07/23/21 Rx Adalimumab [Humira Pediatric 40 mg SQ WE 09/25/18 07/23/21 History Crohn's] Furosemide [Lasix] 80 mg PO DAILY 09/25/18 07/23/21 History HYDROcodone/APAP 10-325MG [[place] 1 tab PO Q6HR 09/25/18 07/23/21 History 10-325] Insulin Degludec [Tresiba] 46 units SQ DAILY 09/25/18 07/23/21 History Insulin Lispro [humaLOG Kwikpen] See Protocol SQ AC-TID 09/25/18 07/23/21 History Tolterodine Tartrate [Detrol LA] 4 mg PO DAILY 09/25/18 07/23/21 History Gabapentin 1,600 mg PO HS 11/14/18 07/23/21 History methocarbamoL [Robaxin] 750 mg PO TID@1200,1800,2100 11/14/18 07/23/21 History Calcium Carbonate/Vitamin D3 1 tab PO BID 11/19/18 07/23/21 History [Calcium 500-Vit D3 5 Mcg (200 Iu)] Clotrimazole [Lotrimin AF] 1 applic TOPICAL DAILY 11/19/18 07/23/21 History Glucosam/Cristian-Msm1/C/Finn/Bosw 1 tab PO DAILY 11/19/18 07/23/21 History [Glucosamine-Chondroitin Tablet] Metoprolol Tartrate [Lopressor] 100 mg PO BID 11/19/18 07/23/21 History Multivitamins, Thera [Multivitamin 1 tab PO DAILY 11/19/18 07/23/21 History (formulary)] Levothyroxine Sodium [Synthroid] 250 mcg PO DAILY 08/02/19 07/23/21 History Amiodarone [Cordarone] 100 mg PO DAILY 07/23/21 07/23/21 History Aspirin EC [Ecotrin Low Dose] 81 mg PO DAILY 07/23/21 07/23/21 History Cyclobenzaprine [Flexeril] 10 mg PO BID PRN 07/23/21 07/23/21 History Gabapentin 800 mg PO DAILY@1200 07/23/21 07/23/21 History dilTIAZem HCL 90 mg PO BID 07/23/21 07/23/21 History predniSONE 5 mg PO DAILY 07/23/21 07/23/21 History Allergies Allergy/AdvReac Type Severity Reaction Status Date / Time adhesive Allergy Rash/Hives Verified 07/23/21 13:55 cephalexin [From Keflex] Allergy Rash/Hives Verified 07/23/21 13:55 grass pollen Allergy Unknown Verified 07/23/21 13:55 mold Allergy Unknown Verified 07/23/21 13:55 Sulfa (Sulfonamide Allergy Rash/Hives Verified 07/23/21 13:55 Antibiotics) newspaper ink Allergy Mild Unknown Uncoded 08/02/19 11:25 Physical Examination Physical exam: Patient is awake, alert, and oriented 3 Vital signs stable Good chest excursion with deep inspiration and expiration Patient remains lying flat in bed during physical examination; patient unwilling to roll or be rolled for examination of her lumbar spine Dorsiflexion and plantar flexion positive sustained bilaterally Significant generalized weakness in bilateral lower extremities Patient is unable to lift her legs off the bed independently Mild generalized pain with palpation over the lower extremities No significant pain with internal and external rotation of the hips bilaterally Some increased pain with Lasegue's test bilaterally No hyperreflexia the patellar bilaterally No signs or symptoms of DVT; no calf pain No pain with internal and external rotation of the hips bilaterally Neurovascularly intact Some generalized swelling in the lower extremities Results Pertinent studies: X-rays of the left femur, pelvis, and left knee taken on 07/23/2021: Evidence of a left total hip arthroplasty which remains in good alignment and good position; osteoarthritis of the left knee; evidence of chronic proximal fibular diaphysis fracture with evidence of good bony healing; evidence of retained hardware at the lumbosacral spine but can only visualize up to L5; moderate to severe medial tibial femoral compartment osteoarthritis - Labs Labs: Abnormal Lab Results - Last 24 Hours (Table) 07/26/21 07/26/21 07/26/21 Range/Units 17:22 20:30 21:41 WBC 11.3 H (3.8-10.6) k/uL Hgb 10.3 L (11.4-16.0) gm/dL MCHC 28.3 L (31.0-37.0) g/dL RDW 17.7 H (11.5-15.5) % Sodium (137-145) mmol/L Chloride (98-107) mmol/L Carbon Dioxide (22-30) mmol/L BUN/Creatinine Ratio (12.00-20.00) Ratio Glucose (74-99) mg/dL POC Glucose (mg/dL) 180 H 164 H (75-99) mg/dL Magnesium (1.6-2.3) mg/dL 07/26/21 07/27/21 07/27/21 Range/Units 21:41 07:47 12:27 WBC (3.8-10.6) k/uL Hgb (11.4-16.0) gm/dL MCHC (31.0-37.0) g/dL RDW (11.5-15.5) % Sodium 136 L (137-145) mmol/L Chloride 97 L (98-107) mmol/L Carbon Dioxide 32 H 30.1 H (22-30) mmol/L BUN/Creatinine Ratio 22.50 H (12.00-20.00) Ratio Glucose 168 H (74-99) mg/dL POC Glucose (mg/dL) 169 H (75-99) mg/dL Magnesium 1.5 L (1.6-2.3) mg/dL H & H 07/23/21 07/25/21 07/26/21 Range/Units 13:12 06:07 21:41 Hgb 10.2 L 9.6 L 10.3 L (11.4-16.0) gm/dL Hct 35.0 33.8 L 36.5 (34.0-46.0) % Coagulation 07/23/21 Range/Units 13:12 INR 1.1 (<1.2) Result Diagrams: 07/26/21 21:41 07/27/21 07:47 Assessment and Plan Assessment: Assessment: Significant generalized bilateral lower extremity weakness Status post fall Urinary retention Urinary voiding yesterday without sensation while doing so Low back pain History of lumbar fusion Rule out cauda equina and nerve Acute on chronic heart failure with preserved ejection fraction Persistent atrial fibrillation Hypertension Hyperlipidemia Insulin-dependent diabetes Obesity Hypothyroidism History of left proximal fibular fracture History of left total hip arthroplasty Osteoarthritis of the left knee History of lumbar fusion (1) Lower extremity weakness Current Visit: Yes Status: Acute Code(s): R29.898 - OTH SYMPTOMS AND SIGNS INVOLVING THE MUSCULOSKELETAL SYSTEM SNOMED Code(s): 692754034 (2) Urinary retention Current Visit: Yes Status: Acute Code(s): R33.9 - RETENTION OF URINE, UNSPECIFIED SNOMED Code(s): 722137262 (3) Lower extremity pain Current Visit: Yes Status: Acute Code(s): M79.606 - PAIN IN LEG, UNSPECIFIED SNOMED Code(s): 94831018 (4) Loss of sensation Current Visit: Yes Status: Acute Code(s): R20.0 - ANESTHESIA OF SKIN SNOMED Code(s): 99745314 (5) Cauda equina syndrome Current Visit: Yes Status: Acute Code(s): G83.4 - CAUDA EQUINA SYNDROME SNOMED Code(s): 454307347 (6) Heart failure Current Visit: Yes Status: Acute Code(s): I50.9 - HEART FAILURE, UNSPECIFIED SNOMED Code(s): 69398643 (7) Persistent atrial fibrillation Current Visit: Yes Status: Acute Code(s): I48.19 - OTHER PERSISTENT ATRIAL FIBRILLATION SNOMED Code(s): 304409974 (8) Hypertension Current Visit: Yes Status: Acute Code(s): I10 - ESSENTIAL (PRIMARY) HYPERTENSION SNOMED Code(s): 84746056 (9) Hyperlipidemia Current Visit: Yes Status: Acute Code(s): E78.5 - HYPERLIPIDEMIA, UNSPECIFIED SNOMED Code(s): 88935175 (10) Insulin dependent diabetes mellitus Current Visit: Yes Status: Acute Code(s): KYH7542 - SNOMED Code(s): 03805343 (11) Obesity (BMI 30-39.9) Current Visit: Yes Status: Acute Code(s): E66.9 - OBESITY, UNSPECIFIED SNOMED Code(s): 877310901 (12) Low back pain Current Visit: Yes Status: Acute Code(s): M54.50 - LOW BACK PAIN, UNSPECIFIED SNOMED Code(s): 653114086 (13) History of lumbar fusion Current Visit: Yes Status: Acute Code(s): Z98.1 - ARTHRODESIS STATUS SN OMED Code(s): 16945745568716 (14) Hypothyroidism Current Visit: Yes Status: Acute Code(s): E03.9 - HYPOTHYROIDISM, UNSPECIFIED SNOMED Code(s): 93115814 (15) History of total left hip arthroplasty Current Visit: Yes Status: Acute Code(s): Z96.642 - PRESENCE OF LEFT AR TIFICIAL HIP JOINT SNOMED Code(s): 365325239099 (16) History of fracture of fibula Current Visit: Yes Status: Acute Code(s): Z87.81 - PERSONAL HISTORY OF (HEALED) TRAUMATIC FRACTURE SNOMED Code(s): 087731282 (17) Osteoarthritis of left knee Current Visit: Yes Status: Acute Code(s): M17.12 - UNILATERAL PRIMARY OSTEOARTHRITIS, LEFT KNEE SNOMED Code(s): 560344280465188 (18) Fall Current Visit: Yes Status: Acute Code(s): W19.XXXA - UNSPECIFIED FALL, INITIAL ENCOUNTER SNOMED Code(s): 2474626 (19) Generalized weakness Current Visit: Yes Status: Acute Code(s): R53.1 - WEAKNESS SNOMED Code(s): 33912226 Plan: Plan: 1. Patient has been having significant difficulty with mobility and ambulation after sustaining a fall at home on 07/22/2021. At the time the fall she was unable to get up off of the floor required EMS to help her get back into bed. She was unable to get out of bed the following day and presented to [facility] via EMS for further evaluation. Initially she was complaining of some left lower extremity pain with some pain at the knee and underwent multiple imaging modalities including x-rays of the left hip, pelvis, and left knee without evidence of acute fracture. Patient has been lying in bed over the weekend. I have been told there was not physical therapy available over the wee kend to help increase the patient's mobility. With further discussion with the patient, she is not currently able to describe a specific pain in her lower extremities. She admits to some bilateral lower extremity leg pain without a specific pattern. She does have significant weakness with her bilateral lower extremities has difficulty attempting to lift her legs off the bed. She is able to perform dorsiflexion and plantar flexion bilaterally. She does have a history of previous lumbar fusion with some retained hardware that is partially visualized on pelvis x-ray imaging. Her lumbar surgery was performed by Dr. Sorto. She states she has been experiencing some low back pain. She has not had any imaging specifically in regards to her lumbar spine during this admission. Patient yesterday voided her bladder but was unable to sense she was urinating at that time. Today she is experiencing urinary retention and a catheter placed by urology this morning. Patient is experiencing some cauda equina symptoms. Given the patient's recent fall, significant changes in function of her bilateral lower extremities in terms of weakness following a fall, low back pain, her inability to sense voiding yesterday, and current urinary retention, we will plan to order a stat MRI of the lumbar spine with and without contrast for further evaluation and to rule out cauda equina. We did discuss the patient will remain on bed rest until following the completion and review of her lumbar MRI imaging. We did discuss that if the patient is unable to have this stat MRI imaging performed here at [facility] she must be transferred to a tertiary facility that could perform this lumbar MRI imaging for her. Plan of care is discussed in detail with nursing. 2. Patient will continue to be seen in exam by other medical providers including medicine and cardiology Time with Patient: Greater than 30 (Including obtaining history, physical examination, reviewing of imaging, and dictation.)
[2021-07-27] MEDS ORDERED: diazePAM 5 MG TAB PO STA (13:05)
[2021-07-27] MEDS: INSULIN DETEMIR (LEVEMIR) 100 UNIT/ML SYR SQ SCH (13:11)
--- NOTE | 2021-07-27 13:40 | CA ---
Transthoracic Echo Report Name: Rosalva Lr Age: 80 Gender: F : 1940 Exam Date: 07/27/2021 08:25 Exam Location: [facility] Ht (in): 73 Wt (lb): 300 Ordering Physician: Stephanie Youngblood Attending/Referring Phys: [employer] Prevention Specialist Erin Mcmahon RDCS Procedure CPT: Indications: a fib Cardiac Hx: Technical Quality: Good Contrast 1: Total Dose (mL): Contrast 2: Total Dose (mL): MEASUREMENTS (Male / Female) Normal Values 2D ECHO LV Diastolic Diameter PLAX 4.0 cm 4.2 - 5.9 / 3.9 - 5.3 cm LV Systolic Diameter PLAX 1.8 cm IVS Diastolic Thickness 1.4 cm 0.6 - 1.0 / 0.6 - 0.9 cm LVPW Diastolic Thickness 1.9 cm 0.6 - 1.0 / 0.6 - 0.9 cm LV Relative Wall Thickness 0.8 RV Internal Dim ED PLAX 4.3 cm M-MODE Aortic Root Diameter MM 3.2 cm LA Systolic Diameter MM 3.3 cm LA Ao Ratio MM 1.0 MV E Point Septal Separation 1.1 cm AV Cusp Separation MM 1.8 cm DOPPLER AV Peak Velocity 150.6 cm/s AV Peak Gradient 9.1 mmHg AI Peak Velocity 190.5 cm/s AI Peak Gradient 14.5 mmHg AI Pressure Half Time 587.9 ms MR Peak Velocity 454.2 cm/s MR Peak Gradient 82.5 mmHg TR Peak Velocity 350.4 cm/s TR Peak Gradient 49.1 mmHg Right Ventricular Systolic Press 50.7 mmHg FINDINGS Left Ventricle Moderately increased septal wall thickness. Left ventricular ejection fraction is estimated at 55-60 %. Left ventricular cavity size normal. Right Ventricle Mild right ventricular dilatation. Moderate pulmonary hypertension. Right ventricular systolic pressure estimated at 50 mmHg. Right Atrium Normal right atrial size. Left Atrium The left atrium is normal in size. Mitral Valve Structurally normal mitral valve without significant stenosis or prolapse. There is mild mitral regurgitation. Mitral valve thickened. Mitral annular calcification. Aortic Valve Structurally normal aortic valve without significant sclerosis or stenosis. There is a trace of aortic regurgitation. Tricuspid Valve Structurally normal tricuspid valve without significant stenosis. Pulmonary artery systolic pressure is normal. Moderate tricuspid regurgitation. Pulmonic Valve Structurally normal pulmonic valve without significant stenosis. There is no pulmonic regurgitation. Pericardium Normal pericardium without effusion. Aorta Normal aortic root dimension. CONCLUSIONS Moderate left ventricular hypertrophy Normal left ventricular ejection fraction 55-60% Moderate pulmonary hypertension RVSP 50 Mild mitral regurgitation Moderate to severe mitral annular calcification Moderate tricuspid regurgitation Previewed by: Dr. Vincent Ellis DO (Electronically Signed) Final Date: 27 Jul 2021 13:39
[2021-07-27 17:08] LABS: Glucose,Whole Blood 210 mg/dL (75-99)
[2021-07-27 19:28] LABS: Glucose,Whole Blood 248 mg/dL (75-99)
[2021-07-27 20:32] LABS: Glucose,Whole Blood 234 mg/dL (75-99)
[2021-07-27] MEDS: PANTOPRAZOLE 40 MG TABLET PO SCH (20:56)
[2021-07-27] MEDS: LATANOPROST 0.005% OPHTH DROPS 2.5 ML BTL BOTH EYES SCH (20:57)
[2021-07-27] MEDS: traMADol 50 MG TAB PO PRN (22:42)
[2021-07-28] MEDS: MORPHINE SULFATE 4 MG/ML SYRINGE IV PRN ×4 (02:00→17:33)
[2021-07-28] MEDS: LEVOTHYROXINE 125 MCG TAB PO SCH (05:49)
[2021-07-28 07:12] LABS: Glucose,Whole Blood 201 mg/dL (75-99)
[2021-07-28] MEDS ORDERED: LORazepam 2 MG/ML INJ IV STA (08:04)
--- NOTE | 2021-07-28 08:21 | P.PN ---
Subjective Principal diagnosis: Urinary retention The patient is here status post weakness. Still not ambulatory. Element of urinary retention stated. Ruth catheter and is now been placed. No significant nausea, vomiting or diarrhea MRI scheduled for later today of the lumbar spine due to her mobility. Objective - Vital Signs Vital signs: Vital Signs Temp 97.9 F 07/28/21 07:32 Pulse 71 07/28/21 07:32 Resp 16 07/28/21 07:32 BP 148/70 07/28/21 07:32 Pulse Ox 99 07/28/21 07:32 FiO2 Intake & Output 07/27/21 07/28/21 07/28/21 18:59 06:59 18:59 Intake Total 354 Output Total 2600 1125 Balance -2246 -1125 Intake: Oral 354 Output: Urine 2600 1125 Other: Voiding Method Indwelling Catheter Indwelling Catheter Indwelling Catheter - Constitutional General appearance: Present: morbidly obese - EENT Eyes: Absent: abnormal pupil - Respiratory Respiratory: bilateral: CTA - Cardiovascular Rhythm: regular Heart sounds: normal: S1, S2 Abnormal Heart Sounds: Absent: S3 Gallop - Gastrointestinal General gastrointestinal: Present: soft. Absent: tenderness - Musculoskeletal Musculoskeletal: Present: generalized weakness - Labs CBC & Chem 7: 07/26/21 21:41 07/27/21 07:47 Labs: Abnormal Lab Results - Last 24 Hours (Table) 07/27/21 07/27/21 07/27/21 Range/Units 07:47 12:27 17:06 Carbon Dioxide 30.1 H (20.0-27.5) mmol/L BUN/Creatinine Ratio 22.50 H (12.00-20.00) Ratio POC Glucose (mg/dL) 169 H 210 H (75-99) mg/dL 07/27/21 07/27/21 07/28/21 Range/Units 19:27 20:30 07:10 Carbon Dioxide (20.0-27.5) mmol/L BUN/Creatinine Ratio (12.00-20.00) Ratio POC Glucose (mg/dL) 248 H 234 H 201 H (75-99) mg/dL Assessment and Plan (1) Fall Current Visit: Yes Status: Acute Code(s): W19.XXXA - UNSPECIFIED FALL, INITIAL ENCOUNTER SNOMED Code(s): 1439958 (2) Generalized weakness Current Visit: Yes Status: Acute Code(s): R53.1 - WEAKNESS SNOMED Code(s): 53522941 (3) CAD (coronary artery disease) Current Visit: No Status: Acute Code(s): I25.10 - ATHSCL HEART DISEASE OF [place] CORONARY ARTERY W/O ANG PCTRS SNOMED Code(s): 52893957 (4) Chronic atrial fibrillation Current Visit: No Status: Acute Code(s): I48.2 - CHRONIC ATRIAL FIBRILLATION * DO NOT USE * SNOMED Code(s): 568283127 (5) Gout Current Visit: No Status: Acute Code(s): M10.9 - GOUT, UNSPECIFIED SNOMED Code(s): 18187573 (6) Increased weakness when ambulating Current Visit: No Status: Acute Code(s): R53.1 - WEAKNESS SNOMED Code(s): 427767675 Plan: Discharge planning. PT/OT. Leave Ruth catheter in for now. I anticipate need for rehab. Await MRI results. Appreciate multiple consultants.
[2021-07-28] MEDS: AMIODARONE 100 MG TAB PO SCH (08:32)
[2021-07-28] MEDS: CALCIUM CARB-VIT D 500 MG-5 MCG TAB PO SCH (08:32)
[2021-07-28] MEDS: DILTIAZEM ORAL 30 MG TAB PO SCH ×2 (08:32→16:30)
--- NOTE | 2021-07-28 08:32 | P.PN ---
Subjective HISTORY OF PRESENT ILLNESS: This is 80-year-old female who is admitted to the hospital after sustaining a fall. The patient was found to be in A. fib with RVR. The patient was started on digoxin and her Cardizem dose was increased to 3 times a day. The patient remains in atrial fibrillation with a heart rate in the 80s. She denies chest pain or pressure. She denies shortness of breath. She remains on IV Lasix for lower extremity edema. 07/28 Patient seen and examined. Patient remains in A. fib with relatively controlled rates 80s to 90s. She denies any chest pain or pressure. Remains on IV Lasix with Ruth in place. Documentation of approximately -3 L over the last 24 hours. Echo shows preserved EF 55-60% with RVSP of 50, mild mitral regurgitation, moderate to severe mitral annular calcification. PHYSICAL EXAM: VITAL SIGNS: Reviewed. GENERAL: Well-developed in no acute distress. Obese NECK: Supple. No JVD or thyromegaly LUNGS: Respirations even and unlabored. Lungs essentially clear to auscultation bilaterally. HEART: Irregular rate and rhythm. S1 and S2 heard. EXTREMITIES: Normal range of motion. No clubbing or cyanosis. Peripheral pulses intact. 1-2+ lower extremity edema ASSESSMENT: Status post fall Paroxysmal atrial fibrillation Acute on chronic heart failure with preserved ejection fraction Hypertension Hyperlipidemia PLAN: 2D echo ordered. Await results. Continue current cardiac medications Continue IV lasix as appears to be diuresing well with improved LE edema. Continue telemetry monitoring Further recommendations pending patient course Objective - Vital Signs Vital signs: Vital Signs Temp 97.9 F 07/28/21 07:32 Pulse 71 07/28/21 07:32 Resp 16 07/28/21 07:32 BP 148/70 07/28/21 07:32 Pulse Ox 99 07/28/21 07:32 FiO2 Intake & Output 07/27/21 07/28/21 07/28/21 18:59 06:59 18:59 Intake Total 354 Output Total 2600 1125 Balance -2246 -1125 Intake: Oral 354 Output: Urine 2600 1125 Other: Voiding Method Indwelling Catheter Indwelling Catheter Indwelling Catheter - Labs CBC & Chem 7: 07/26/21 21:41 07/27/21 07:47 Labs: Abnormal Lab Results - Last 24 Hours (Table) 05/07/27/21 07/27/21 Range/Units 07:47 12:27 17:06 Carbon Dioxide 30.1 H (20.0-27.5) mmol/L BUN/Creatinine Ratio 22.50 H (12.00-20.00) Ratio POC Glucose (mg/dL) 169 H 210 H (75-99) mg/dL 07/27/21 07/27/21 07/28/21 Range/Units 19:27 20:30 07:10 Carbon Dioxide (20.0-27.5) mmol/L BUN/Creatinine Ratio (12.00-20.00) Ratio POC Glucose (mg/dL) 248 H 234 H 201 H (75-99) mg/dL
[2021-07-28] MEDS: predniSONE 5 MG TAB PO SCH (08:33)
[2021-07-28] MEDS: MULTIVITAMINS, THERA 1 EACH TAB PO SCH (08:33)
[2021-07-28] MEDS: DIGOXIN 125 MCG TAB PO SCH (08:34)
[2021-07-28] MEDS: OXYBUTYNIN 10 MG TAB.ER.24 PO SCH (08:34)
[2021-07-28] MEDS: metFORMIN 500 MG TAB PO SCH ×2 (08:34→17:20)
[2021-07-28] MEDS: APIXABAN 5 MG TAB PO SCH (08:34)
[2021-07-28] MEDS: traMADol 50 MG TAB PO PRN (08:34)
[2021-07-28] MEDS: PILOCARPINE 5 MG TAB PO SCH ×3 (08:35→17:20)
[2021-07-28] MEDS: FUROSEMIDE 10 MG/ML 10 ML VIAL IV SCH (08:35)
[2021-07-28] MEDS: METOPROLOL TARTRATE 50 MG TAB PO SCH (08:35)
[2021-07-28] MEDS: NEURONTIN 800 MG PO SCH ×2 (08:42→17:21)
[2021-07-28] MEDS: INSULIN DETEMIR (LEVEMIR) 100 UNIT/ML SYR SQ SCH (08:42)
[2021-07-28] MEDS: CALCIUM CARBONATE 500 MG CHEWABLE PO PRN (10:11)
--- NOTE | 2021-07-28 10:56 | P.PN ---
Progress Note - Text Progress Note Date: 07/28/21 Orthopedic spine: History of present illness: She is a pleasant 80-year-old female who is seen and examined at bedside for further evaluation of her left lower extremity and lumbar spine. She sustained a fall on 07/22/2021. She was unable to get off of the floor and back into her bed and needed assistance by the EMS. She was unable to get out of bed on the morning of 07/23/2021 and presented to the emergency department via EMS for further evaluation. Patient states she chronically uses a walker to aid in ambulation. She states since the fall she has had significant difficulty with mobility and weakness. She feels generally weaker specifically generally weak in the bilateral lower extremities. She initially was having some left lower extremity leg pain and most significant towards the knee. Multiple imaging modalities were taken including the pelvis, left hip, and left knee without evidence of acute fracture. She does have history of a left total hip arthroplasty. She states she has history of previous surgical intervention with fusion at her lumbar spine performed by Dr. Sorto. She has not had any improvement of her symptoms as compared to yesterday. She continues to have difficulty lifting her legs off the bed independently. She states she has back pain as well. She has not had any imaging in regards to her lumbar spine. She is unwilling to roll over in bed with assistance for examination of her lumbar spine. She does have difficulty describing pains in her lower extremities. She is not complaining of a specific pain in the lower extremities but does state her legs hurt. She has been in bed over the weekend as I was told therapy was not available to help the patient increase her mobility and ambulation. Patient states she is unsure what kind of mobility she could perform independently. She was experiencing urinary retention yesterday morning and a Ruth catheter was placed by urology. Nursing states patient did void her bladder yesterday unknowingly and did not sense that she was urinating. She continues to be seen by medicine and cardiology. Patient does admit to a history of previous fracture to her left proximal fibula. Patient's other medical diagnoses include acute on chronic heart failure with preserved ejection fraction, persistent atrial fibrillation, hypertension, hyperlipidemia, insulin-dependent diabetes, obesity, and hypothyroidism. Cardiology is planning for a 2-D echocardiogram. Lumbar MRI imaging with and without contrast was ordered to be performed yesterday. I left the patient on bed rest until following the completion of the lumbar MRI with and without contrast. Patient was scheduledand taken downstairs for the MRI to be performed and once she got down for her MRI she declined to have the MRI performed due to pain. Patient was given further medication this morning and was scheduled for her lumbar MRI to be performed this morning. Patient once again declined to have this MRI imaging performed when she was taken down for the scheduled lumbar MRI testing. The necessity of this test was discussed in significant detail with the patient. Multiple times the patient states she understood and would be willing to go forward with the MRI but has continued to decline having it performed on the testing has been scheduled. Physical exam: Patient is awake, alert, and oriented 3 Vital signs stable Good chest excursion with deep inspiration and expiration Patient remains lying flat in bed during physical examination; patient unwilling to roll or be rolled for examination of her lumbar spine Dorsiflexion and plantar flexion positive sustained bilaterally Significant generalized weakness in bilateral lower extremities Patient is unable to lift her legs off the bed independently Mild generalized pain with palpation over the lower extremities No significant pain with internal and external rotation of the hips bilaterally No hyperreflexia the patellar bilaterally No signs or symptoms of DVT; no calf pain No pain with internal and external rotation of the hips bilaterally Neurovascularly intact Some generalized swelling in the lower extremities Ruth catheter intact Pertinent studies: X-rays of the left femur, pelvis, and left knee taken on 07/23/2021: Evidence of a left total hip arthroplasty which remains in good alignment and good position; osteoarthritis of the left knee; evidence of chronic proximal fibular diaphysis fracture with evidence of good bony healing; evidence of retained hardware at the lumbosacral spine but can only visualize up to L5; moderate to severe medial tibial femoral compartment osteoarthritis Assessment: Significant generalized bilateral lower extremity weakness Status post fall Urinary retention Urinary voiding yesterday without sensation while doing so Low back pain History of lumbar fusion Rule out cauda equina and nerve Acute on chronic heart failure with preserved ejection fraction Persistent atrial fibrillation Hypertension Hyperlipidemia Insulin-dependent diabetes Obesity Hypothyroidism History of left proximal fibular fracture History of left total hip arthroplasty Osteoarthritis of the left knee History of lumbar fusion Plan: 1. She has not had any significant change or improvement of her symptoms as compared to yesterday. Patient has been having significant difficulty with m obility and ambulation after sustaining a fall at home on 07/22/2021. At the time the fall she was unable to get up off of the floor required EMS to help her get back into bed. She was unable to get out of bed the following day and presented to [facility] via EMS for further evaluation. Initially she was complaining of some left lower extremity pain with some pain at the knee and underwent multiple imaging modalities including x-rays of the left hip, pelvis, and left knee without evidence of acute fracture. Patient has been lying in bed over the weekend. I have been told there was not physical therapy available over the weekend to help increase the patient's mobility. With further discussion with the patient, she is not currently able to describe a specific pain in her lower extremities. She admits to some bilateral lower extremity leg pain without a specific pattern. She does have significant weakness with her bilateral lower extremities has difficulty attempting to lift her legs off the bed. She is able to perform dorsiflexion and plantar flexion bilaterally. She does have a history of previous lumbar fusion with some retained hardware that is partially visualized on pelvis x-ray imaging. Her lumbar surgery was performed by Dr. Sorto. She states she has been experiencing some low back pain. She has not had any imaging specifically in regards to her lumbar spine during this admission. Patient previously voided her bladder but was unable to sense she was urinating at that time. Yesterday she was experiencing urinary retention and a catheter placed by urology yesterday morning. Patient is experiencing some cauda equina symptoms. Given the patient's recent fall, significant changes in function of her bilateral lower extremities in terms of weakness following a fall, low back pain, her inability to sense voiding yesterday, and current urinary retention, I ordered STAT Lumbar MRI imaging with and without contrast for further evaluation and to rule out cauda equina, which was scheduled to to be performed yesterday. I put the patient patient on bed rest until following the completion of the lumbar MRI with and without contrast. Patient has remained in bed. Patient was scheduled and taken downstairs for the MRI to be performed and once she got down for her MRI she declined to have the MRI performed due to pain. Patient was given further medication again this morning and was scheduled for her lumbar MRI to be performed this morning. Patient once again, for a second time, declined to have this MRI imaging performed when she was taken down for the scheduled lumbar MRI testing. The necessity of this test was discussed in significant detail with the patient. Multiple times the patient states she understood and would be willing to go forward with the MRI but has continued to decline having it performed on the testing has been scheduled. Given her declining to have this lumbar MRI imaging performed on 2 separate occasions, we would strongly recommend transfer to a tertiary facility for the patient to have a sedated MRI of the lumbar spine with and without contrast. This has been discussed in detail with nursing we will contact the patient's admitting service, medicine, to discuss transfer. It was discussed that this lumbar MRI imaging is necessary for this patient. She will continue to remain on bed rest. 2. Patient will continue to be seen in exam by other medical providers including medicine and cardiology She has seen and examined today at bedside. I reviewed the imaging as well as her chart. We have ordered an MRI and we try to obtain yesterday but she refused the MRI. We try to arrange the MRI again today but she again refused. She says she is unable lay flat for the MRI. She denies any thoracic back pain she says the pain is mainly around her lower back and toward her hips. On exam she is nontender to palpation at her back for at her midline of her lower lumbar spine. She is nontender to palpation over thoracic and lumbar spine. She moves her neck and her arms well. She is a well-healed incision at her anterior cervical spine. Her lower extremity she has some tenderness over her anterior patella on the right knee but she is able to move her knee. She has difficulty moving her right leg in general but she is able to do so. She has weakness at her right leg really due to pain. She localizes her pain by description over her hips posteriorly. She denies acute change with numbness tingling in her legs but she says her legs feel very weak and this is significant change from her to last week since she fell last . She says that normally she is able to walk around to some degree with a walker around the house. Now she has great difficulty. She denies any thoracic back pain. She denies any shortness of breath. She denies any radiating pain around her midsection or core. We have attempted to obtain MRI. Hospital I think it is worthwhile image for her. She is insistent that she is unable to have it without sedation. With this issue I think that she needs transfer to another facility where they can perform sedated MRI. She has a prior L2 to S1 fusion and lumbar spine prior anterior cervical fusion which was done with Dr. Fleming more than 10 years ago. His difficul to fully ascertain the extent of her issues as she has some restrictions in her exam due to her pain. I think further imaging given her history is necessary for transfer her to another facility and further imaging with sedation for an MRI and further workup and possible definitive treatment. I discussed this with her at length bedside and she seems to understand and she is now requesting to transfer
[2021-07-28 11:59] LABS: Glucose,Whole Blood 188 mg/dL (75-99)
[2021-07-28 12:44] LABS: Anisocytosis Slight; Basophils % (A) 0 %; Eosinophils # (A) 0.2 k/uL (0-0.7); Eosinophils % (A) 3 %; HCT 34.6 % (34.0-46.0); HGB 10.6 gm/dL (11.4-16.0); Hypochromasia Marked; Lymphocytes # (A) 1.2 k/uL (1.0-4.8); Lymphocytes % (A) 14 %; MCH 26.3 pg (25.0-35.0); MCHC 30.6 g/dL (31.0-37.0); MCV 85.9 fL (80.0-100.0); Mean Platelet Volume 6.7; Monocytes # (A) 0.7 k/uL (0-1.0); Monocytes % (A) 8 %; Neutrophils # (A) 6.6 k/uL (1.3-7.7); Neutrophils % (A) 74 %; Platelet Count 261 k/uL (150-450); RBC 4.02 m/uL (3.80-5.40); RDW 17.9 % (11.5-15.5); WBC 8.9 k/uL (3.8-10.6)
[2021-07-28 13:16] LABS: ALT 14 U/L (4-34); African American GFR (CKD) >90 (>60 ml/min/1.73 sqM); Albumin 3.5 g/dL (3.5-5.0); Anion Gap 12 mmol/L; Blood Urea Nitrogen 16 mg/dL (7-17); Calcium 8.7 mg/dL (8.4-10.2); Carbon Dioxide 27 mmol/L (22-30); Chloride 95 mmol/L (98-107); Globulin 3.5 g/dL; Glucose 175 mg/dL (74-99); Non-African American GFR(CKD) 88 (>60 ml/min/1.73 sqM); Sodium 134 mmol/L (137-145); Total Bilirubin 0.9 mg/dL (0.2-1.3)
[2021-07-28 13:28] LABS: AST 52 U/L (14-36); Alkaline Phosphatase 50 U/L (38-126); Potassium 4.5 mmol/L (3.5-5.1)
[2021-07-28 17:11] LABS: Glucose,Whole Blood 189 mg/dL (75-99)
[2021-07-28] MEDS: TAMSULOSIN 0.4 MG CAP.ER.24H PO SCH (17:20)
--- NOTE | 2021-07-28 20:20 | CT ---
EXAMINATION TYPE: CT thor lumbar spine wo con CT DLP: 2594.1 mGycm, Automated exposure control for dose reduction was used. DATE OF EXAM: 07/28/2021 5:13 PM COMPARISON: CT angiogram chest 08/11/2017. CLINICAL INDICATION:Female, 80 years old with history of Falls with Lower extremity weakness and h/o fusion, Falls with Lower extremity weakness and h/o fusion TECHNIQUE: Axial images of the thoracic spine were obtained without contrast. Coronal and sagittal re formats were performed. FINDINGS: There is fusion hardware within the lower cervical spine C4-C5 and C5-C6. Additionally fixa tion hardware at L2-S1 is also present. Hardware appears intact. There is laminectomy changes at L3-L 5. There is straightening of the spine with bony fusion of the facets along the L2-L5 levels. Streak hardware limits evaluation of the spinal canal and neural foramen, within these limitations th ere is mild bilateral L5-S1 neural foraminal stenosis. No gross evidence for spinal canal stenosis wi thin the lumbar or cervical spine. The thoracic spine demonstrates mild spinal canal stenosis at T8-T 9 through T11-T12 secondary to facet joint arthropathy and the neural foramen demonstrate mild multil evel neural foraminal narrowing. There is atherosclerosis of the arterial vasculature. Coronary artery atherosclerosis is also present . Mitral valve annular calcifications are present. Fusiform ectasia of the distal aorta measuring up to 2.6 cm. Asymmetric right elevated diaphragm. Low lung volumes with mosaic attenuation to the lung parenchyma. IMPRESSION: 1. No evidence of acute fracture. 2. Postsurgical changes to the cervical and lumbar spine. No evidence of hardware failure. 3. Multilevel disc degeneration changes resulting in at least mild spinal canal stenosis from T8-T9 t hrough T11-T12 as well as at least mild neural foraminal stenosis scattered throughout these levels.
[2021-07-28 21:29] LABS: Glucose,Whole Blood 187 mg/dL (75-99)
[2021-07-29] MEDS: LATANOPROST 0.005% OPHTH DROPS 2.5 ML BTL BOTH EYES SCH ×2 (00:08→19:47)
[2021-07-29] MEDS: MORPHINE SULFATE 4 MG/ML SYRINGE IV PRN ×6 (00:09→22:11)
[2021-07-29] MEDS: CALCIUM CARB-VIT D 500 MG-5 MCG TAB PO SCH ×3 (00:10→19:47)
[2021-07-29] MEDS: APIXABAN 5 MG TAB PO SCH ×3 (00:10→19:46)
[2021-07-29] MEDS: PANTOPRAZOLE 40 MG TABLET PO SCH ×2 (00:11→19:47)
[2021-07-29] MEDS: METOPROLOL TARTRATE 50 MG TAB PO SCH ×3 (00:11→19:47)
[2021-07-29] MEDS: DILTIAZEM ORAL 30 MG TAB PO SCH ×4 (00:12→19:48)
[2021-07-29] MEDS: FUROSEMIDE 10 MG/ML 10 ML VIAL IV SCH ×3 (00:12→19:47)
[2021-07-29] MEDS: traMADol 50 MG TAB PO PRN ×3 (02:36→19:48)
[2021-07-29] MEDS: LEVOTHYROXINE 125 MCG TAB PO SCH (06:23)
[2021-07-29 07:20] LABS: Glucose,Whole Blood 203 mg/dL (75-99)
[2021-07-29] MEDS: metFORMIN 500 MG TAB PO SCH ×2 (08:07→16:53)
[2021-07-29] MEDS: INSULIN DETEMIR (LEVEMIR) 100 UNIT/ML SYR SQ SCH (08:08)
[2021-07-29] MEDS: DIGOXIN 125 MCG TAB PO SCH (08:08)
[2021-07-29] MEDS: AMIODARONE 100 MG TAB PO SCH (08:08)
[2021-07-29] MEDS: PILOCARPINE 5 MG TAB PO SCH ×3 (08:08→17:05)
[2021-07-29] MEDS: predniSONE 5 MG TAB PO SCH (08:09)
[2021-07-29] MEDS: OXYBUTYNIN 10 MG TAB.ER.24 PO SCH (08:09)
[2021-07-29] MEDS: MULTIVITAMINS, THERA 1 EACH TAB PO SCH (08:09)
--- NOTE | 2021-07-29 08:12 | P.DS ---
Providers Date of admission: 07/27/21 11:59 Attending physician: Nicholas Hart Consults: 07/24/21 14:25 Consult Physician Routine Consulting Provider: Main iKtchen Consult Reason/Comments: afib, gualberto le edema Do you want consulting provider notified?: Yes 07/26/21 22:04 Consult Physician Urgent Consulting Provider: Sissy Everett Consult Reason/Comments: sever osteoarthritis and weakness of legs Do you want consulting provider notified?: Yes 07/27/21 05:58 Consult Physician Stat Consulting Provider: Osvaldo Mendoza Consult Reason/Comments: Urine Retention Do you want consulting provider notified?: Already Contacted Primary care physician: Nicholas Hart - Discharge Diagnosis(es) (1) Fall Current Visit: Yes Status: Acute (2) Generalized weakness Current Visit: Yes Status: Acute (3) CAD (coronary artery disease) Current Visit: No Status: Acute (4) Chronic atrial fibrillation Current Visit: No Status: Acute (5) Gout Current Visit: No Status: Acute (6) Increased weakness when ambulating Current Visit: No Status: Acute Hospital Course: This discharge summary 80-year-old white female who essentially minute for fall with generalized weakness. She's been nonambulatory and has sudden onset of urinary retention. Scan did not show acute fracture but because of her inability to mobilize, we are anticipating need for MRI. Urology was consulted for her urinary retention and catheter has been placed. She was unable to tolerate MRI in our facility and will need to be sedated prior to being transferred for appropriate rehab. She is going to be transferred to [facility] for appropriate treatment. Continue all her home medications she is multiplicity of chronic illnesses as stated in her H&P. Patient Condition at Discharge: Undetermined Plan - Discharge Summary New Discharge Prescriptions: New RX: Digoxin [Lanoxin] 125 mcg PO DAILY tab RX: Calcium Carbonate [Tums] 1,000 mg PO QID PRN tab PRN Reason: Heartburn RX: traMADol HCl [Ultram] 50 mg PO Q6H PRN tab PRN Reason: Moderate Pain RX: Ibuprofen [Motrin] 400 mg PO Q6HR PRN tab PRN Reason: Mild Pain Or Fever > 100.5 Continue RX: Gabapentin [Neurontin] 1,200 mg PO BID@0800,1700 RX: Lansoprazole [Prevacid] 15 mg PO HS RX: hydrOXYzine HCL [Atarax] 50 mg PO HS RX: Latanoprost [Xalatan 0.005%] 1 drop BOTH EYES HS RX: metFORMIN HCL [Glucophage] 1,000 mg PO AC-BID RX: Pilocarpine HCl [Salagen] 7.5 mg PO TID@0800,1200,1800 RX: Nitroglycerin Sl Tabs [Nitrostat] 0.4 mg SUBLINGUAL Q5M PRN #30 tab PRN Reason: Chest Pain RX: Apixaban [Eliquis] 5 mg PO BID #60 tab RX: Insulin Degludec [Tresiba] 46 units SQ DAILY RX: HYDROcodone/APAP 10-325MG [[place] 10-325] 1 tab PO Q6HR RX: Adalimumab [Humira Pediatric Crohn's] 40 mg SQ WE RX: Furosemide [Lasix] 80 mg PO DAILY RX: Insulin Lispro [humaLOG Kwikpen] See Protocol SQ AC-TID RX: Tolterodine Tartrate [Detrol LA] 4 mg PO DAILY RX: Gabapentin 1,600 mg PO HS RX: methocarbamoL [Robaxin] 750 mg PO TID@1200,1800,2100 RX: Calcium Carbonate/Vitamin D3 [Calcium 500-Vit D3 5 Mcg (200 Iu)] 1 tab PO BID RX: Clotrimazole [Lotrimin AF] 1 applic TOPICAL DAILY RX: Glucosam/Cristian-Msm1/C/Finn/Bosw [Glucosamine-Chondroitin Tablet] 1 tab PO DAILY RX: Metoprolol Tartrate [Lopressor] 100 mg PO BID RX: Multivitamins, Thera [Multivitamin (formulary)] 1 tab PO DAILY RX: Levothyroxine Sodium [Synthroid] 250 mcg PO DAILY RX: Amiodarone [Cordarone] 100 mg PO DAILY RX: Aspirin EC [Ecotrin Low Dose] 81 mg PO DAILY RX: Cyclobenzaprine [Flexeril] 10 mg PO BID PRN PRN Reason: Muscle Spasm RX: dilTIAZem HCL 90 mg PO BID RX: Gabapentin 800 mg PO DAILY@1200 RX: predniSONE 5 mg PO DAILY Discharge Medication List RX: Gabapentin [Neurontin] 1,200 mg PO BID@0800,1700 02/27/14 [History] RX: Lansoprazole [Prevacid] 15 mg PO HS 02/27/14 [History] RX: hydrOXYzine HCL [Atarax] 50 mg PO HS 04/12/16 [History] RX: Latanoprost [Xalatan 0.005%] 1 drop BOTH EYES HS 08/11/17 [History] RX: Pilocarpine HCl [Salagen] 7.5 mg PO TID@0800,1200,1800 08/11/17 [History] RX: metFORMIN HCL [Glucophage] 1,000 mg PO AC-BID 08/11/17 [History] RX: Nitroglycerin Sl Tabs [Nitrostat] 0.4 mg SUBLINGUAL Q5M PRN #30 tab 08/13/17 [Rx] RX: Apixaban [Eliquis] 5 mg PO BID #60 tab 08/30/17 [Rx] RX: Adalimumab [Humira Pediatric Crohn's] 40 mg SQ WE 09/25/18 [History] RX: Furosemide [Lasix] 80 mg PO DAILY 09/25/18 [History] RX: HYDROcodone/APAP 10-325MG [[place] 10-325] 1 tab PO Q6HR 09/25/18 [History] RX: Insulin Degludec [Tresiba] 46 units SQ DAILY 09/25/18 [History] RX: Insulin Lispro [humaLOG Kwikpen] See Protocol SQ AC-TID 09/25/18 [History] RX: Tolterodine Tartrate [Detrol LA] 4 mg PO DAILY 09/25/18 [History] RX: Gabapentin 1,600 mg PO HS 11/14/18 [History] RX: methocarbamoL [Robaxin] 750 mg PO TID@1200,1800,2100 11/14/18 [History] RX: Calcium Carbonate/Vitamin D3 [Calcium 500-Vit D3 5 Mcg (200 Iu)] 1 tab PO BID 11/19/18 [History] RX: Clotrimazole [Lotrimin AF] 1 applic TOPICAL DAILY 11/19/18 [History] RX: Glucosam/Cristian-Msm1/C/Finn/Bosw [Glucosamine-Chondroitin Tablet] 1 tab PO DAILY 11/19/18 [History] RX: Metoprolol Tartrate [Lopressor] 100 mg PO BID 11/19/18 [History] RX: Multivitamins, Thera [Multivitamin (formulary)] 1 tab PO DAILY 11/19/18 [History] RX: Levothyroxine Sodium [Synthroid] 250 mcg PO DAILY 08/02/19 [History] RX: Amiodarone [Cordarone] 100 mg PO DAILY 07/23/21 [History] RX: Aspirin EC [Ecotrin Low Dose] 81 mg PO DAILY 07/23/21 [History] RX: Cyclobenzaprine [Flexeril] 10 mg PO BID PRN 07/23/21 [History] RX: Gabapentin 800 mg PO DAILY@1200 07/23/21 [History] RX: dilTIAZem HCL 90 mg PO BID 07/23/21 [History] RX: predniSONE 5 mg PO DAILY 07/23/21 [History] RX: Calcium Carbonate [Tums] 1,000 mg PO QID PRN tab 07/29/21 [Rx] RX: Digoxin [Lanoxin] 125 mcg PO DAILY tab 07/29/21 [Rx] RX: Ibuprofen [Motrin] 400 mg PO Q6HR PRN tab 07/29/21 [Rx] RX: traMADol HCl [Ultram] 50 mg PO Q6H PRN tab 07/29/21 [Rx] Follow up Appointment(s)/Referral(s): Nicholas Hart MD [Primary Care Provider] - 1-2 days
[2021-07-29] MEDS: NEURONTIN 800 MG PO SCH ×2 (08:30→17:06)
--- NOTE | 2021-07-29 08:33 | P.PN ---
Progress Note - Text Progress Note Date: 07/29/21 The patient is seen and examined today at bedside. I was able to review the computed tomography scan images and report. The patient says that she feels her right leg is moving somewhat better today. She has not yet been out of bed on her own but feels her pain may be slightly better. She is not sure that she would be able stand up on her own and she still has a Ruth intact. On exam she is afebrile with stable vital signs. She says weakness globally at her right lower extremity but has about 3 or 5 dorsal flexion plantarflexion right foot. Unable to lift her leg up off the bed but she is able to slightly flex her knee had about 3 out of 5 The computed tomography scan shows prior fusion and decompression L2 to S1 which appears stable. There is some degenerative changes at her lower thoracic and upper lumbar. She has prior surgery at her cervical spine as well which appears stable. There is no evidence of any fracture dislocation or instability. Assessment and plan Acute neurologic change of uncertain etiology. She had an episode where she lost control of her bladder and had new weakness in her right leg. It is very difficult to attribute this to orthopedic issue or spine origin however with her multiple for seizures a requires further investigation. She has been unable to obtain an MRI here as she has been unable to lay flat and is requiring sedation for MRI imaging. She has had 2 views these here in the hospital on 2 separate occasions. We obtained a computed tomography scan which shows good overall bony stability will we need further soft tissue neurologic imaging for further care. We discussed at length the possibility of transferring to a alternative facility for further testing and per potential treatment. She has been accepted at [facility] and will pursue transferring her to [facility] for further imaging and definitive care. I discussed this with Dr. Hart and the patient and they're agreeable.
--- NOTE | 2021-07-29 11:53 | P.PN ---
Subjective Progress Note Date: 07/29/21 HISTORY OF PRESENT ILLNESS: This is 80-year-old female who is admitted to the hospital after sustaining a fall. The patient was found to be in A. fib with RVR. The patient was started on digoxin and her Cardizem dose was increased to 3 times a day. The patient remains in atrial fibrillation with a heart rate in the 80s. She denies chest pain or pressure. She denies shortness of breath. She remains on IV Lasix for lower extremity edema. 07/28 Patient seen and examined. Patient remains in A. fib with relatively controlled rates 80s to 90s. She denies any chest pain or pressure. Remains on IV Lasix with Ruth in place. Documentation of approximately -3 L over the last 24 hours. Echo shows preserved EF 55-60% with RVSP of 50, mild mitral regurgitation, moderate to severe mitral annular calcification. 07/29/2021 Patient examined this morning at the bedside. She denies SOB. Denies chest pain or pressure. Remains on IV lasix. Lower extremity edema present but improving. PHYSICAL EXAM: VITAL SIGNS: Reviewed. GENERAL: Well-developed in no acute distress. NECK: Supple. No JVD or thyromegaly LUNGS: Respirations even and unlabored. Lungs essentially clear to auscultation bilaterally. HEART: Regular rate and rhythm. S1 and S2 heard. EXTREMITIES: Normal range of motion. No clubbing or cyanosis. Peripheral pulses intact. No lower extremity edema ASSESSMENT: Status post fall Paroxysmal atrial fibrillation Acute on chronic heart failure with preserved ejection fraction Hypertension Hyperlipidemia PLAN: Continue current cardiac medications Continue IV lasix for lower extremity edema Patient is being transferred to [facility] in [place] per internal medicine and orthopedics Nurse practitioner note has been reviewed by physician. Signing provider agrees with the documented findings, assessment, and plan of care. Objective - Vital Signs Vital signs: Vital Signs Temp 98.4 F 07/29/21 07:45 Pulse 62 07/29/21 07:45 Resp 16 07/29/21 07:45 BP 155/61 07/29/21 07:45 Pulse Ox 100 07/29/21 07:45 FiO2 Intake & Output 07/28/21 07/29/21 07/29/21 18:59 06:59 18:59 Intake Total 118 240 Output Total 750 3400 Balance -632 -3160 Intake: Oral 118 240 Output: Urine 750 3400 Other: Voiding Method Indwelling Catheter Indwelling Catheter # Voids 1 - Labs CBC & Chem 7: 07/28/21 12:19 07/28/21 12:19 Labs: Abnormal Lab Results - Last 24 Hours (Table) 07/28/21 07/28/21 07/28/21 Range/Units 11:57 12:19 12:19 Hgb 10.6 L (11.4-16.0) gm/dL MCHC 30.6 L (31.0-37.0) g/dL RDW 17.9 H (11.5-15.5) % Sodium 134 L (137-145) mmol/L Chloride 95 L (98-107) mmol/L Glucose 175 H (74-99) mg/dL POC Glucose (mg/dL) 188 H (75-99) mg/dL AST 52 H (14-36) U/L 07/28/21 07/28/21 07/29/21 Range/Units 17:08 21:27 07:18 Hgb (11.4-16.0) gm/dL MCHC (31.0-37.0) g/dL RDW (11.5-15.5) % Sodium (137-145) mmol/L Chloride (98-107) mmol/L Glucose (74-99) mg/dL POC Glucose (mg/dL) 189 H 187 H 203 H (75-99) mg/dL AST (14-36) U/L
[2021-07-29 12:09] LABS: Glucose,Whole Blood 186 mg/dL (75-99)
[2021-07-29 16:19] LABS: Glucose,Whole Blood 214 mg/dL (75-99)
[2021-07-29] MEDS: TAMSULOSIN 0.4 MG CAP.ER.24H PO SCH (17:11)
[2021-07-29 19:35] LABS: Glucose,Whole Blood 171 mg/dL (75-99)
[2021-07-30] MEDS: MORPHINE SULFATE 4 MG/ML SYRINGE IV PRN ×5 (04:28→21:16)
[2021-07-30] MEDS: LEVOTHYROXINE 125 MCG TAB PO SCH (05:51)
[2021-07-30 07:24] LABS: Glucose,Whole Blood 137 mg/dL (75-99)
[2021-07-30] MEDS: FUROSEMIDE 10 MG/ML 10 ML VIAL IV SCH ×2 (07:58→20:13)
[2021-07-30] MEDS: OXYBUTYNIN 10 MG TAB.ER.24 PO SCH (07:58)
[2021-07-30] MEDS: CALCIUM CARB-VIT D 500 MG-5 MCG TAB PO SCH ×2 (07:58→20:11)
[2021-07-30] MEDS: METOPROLOL TARTRATE 50 MG TAB PO SCH ×2 (07:58→20:12)
[2021-07-30] MEDS: predniSONE 5 MG TAB PO SCH (07:59)
[2021-07-30] MEDS: traMADol 50 MG TAB PO PRN ×3 (07:59→20:12)
[2021-07-30] MEDS: AMIODARONE 100 MG TAB PO SCH (07:59)
[2021-07-30] MEDS: DILTIAZEM ORAL 30 MG TAB PO SCH ×3 (07:59→21:16)
[2021-07-30] MEDS: APIXABAN 5 MG TAB PO SCH ×2 (07:59→20:11)
[2021-07-30] MEDS: MULTIVITAMINS, THERA 1 EACH TAB PO SCH (08:00)
[2021-07-30] MEDS: PILOCARPINE 5 MG TAB PO SCH ×3 (08:00→17:07)
[2021-07-30] MEDS: metFORMIN 500 MG TAB PO SCH ×2 (08:00→17:07)
[2021-07-30] MEDS: DIGOXIN 125 MCG TAB PO SCH (08:00)
[2021-07-30] MEDS: NEURONTIN 800 MG PO SCH ×2 (08:00→17:07)
[2021-07-30] MEDS: INSULIN DETEMIR (LEVEMIR) 100 UNIT/ML SYR SQ SCH (08:01)
--- NOTE | 2021-07-30 08:27 | P.PN ---
Subjective Principal diagnosis: Urinary retention The patient is here status post weakness. Still not ambulatory. Element of urinary retention stated. Ruth catheter and is now been placed. No significant nausea, vomiting or diarrhea Otherwise, we are awaiting transferred to [facility] related to sedated MRI Objective - Vital Signs Vital signs: Vital Signs Temp 98.1 F 07/30/21 08:00 Pulse 76 07/30/21 08:00 Resp 16 07/30/21 08:00 BP 152/66 07/30/21 08:00 Pulse Ox 95 07/30/21 08:00 FiO2 Intake & Output 07/29/21 07/30/21 07/30/21 18:59 06:59 18:59 Intake Total 960 Output Total 3400 2500 Balance -2440 -2500 Intake: Oral 960 Output: Urine 3400 2500 Other: Voiding Method Indwelling Catheter # Voids 1 # Bowel Movements 0 0 - Labs CBC & Chem 7: 07/28/21 12:19 07/28/21 12:19 Labs: Abnormal Lab Results - Last 24 Hours (Table) 07/29/21 07/29/21 07/29/21 Range/Units 12:01 16:17 19:34 POC Glucose (mg/dL) 186 H 214 H 171 H (75-99) mg/dL 07/30/21 Range/Units 07:22 POC Glucose (mg/dL) 137 H (75-99) mg/dL Assessment and Plan (1) Fall Current Visit: Yes Status: Acute Code(s): W19.XXXA - UNSPECIFIED FALL, INITIAL ENCOUNTER SNOMED Code(s): 3276366 (2) Generalized weakness Current Visit: Yes Status: Acute Code(s): R53.1 - WEAKNESS SNOMED Code(s): 12095655 (3) CAD (coronary artery disease) Current Visit: No Status: Acute Code(s): I25.10 - ATHSCL HEART DISEASE OF [place] CORONARY ARTERY W/O ANG PCTRS SNOMED Code(s): 56153729 (4) Chronic atrial fibrillation Current Visit: No Status: Acute Code(s): I48.2 - CHRONIC ATRIAL FIBRILLATION * DO NOT USE * SNOMED Code(s): 373923479 (5) Gout Current Visit: No Status: Acute Code(s): M10.9 - GOUT, UNSPECIFIED SNOMED Code(s): 48309723 (6) Increased weakness when ambulating Current Visit: No Status: Acute Code(s): R53.1 - WEAKNESS SNOMED Code(s): 309430234 Plan: Essentially awaiting transfer for MRI sedation. Continue to follow. Dr. Doyle's group will be covering for the weekend
[2021-07-30 12:24] LABS: Glucose,Whole Blood 124 mg/dL (75-99)
[2021-07-30] MEDS: TAMSULOSIN 0.4 MG CAP.ER.24H PO SCH (17:07)
[2021-07-30 17:30] LABS: Glucose,Whole Blood 99 mg/dL (75-99)
[2021-07-30 19:39] LABS: Glucose,Whole Blood 102 mg/dL (75-99)
[2021-07-30] MEDS: PANTOPRAZOLE 40 MG TABLET PO SCH (20:12)
[2021-07-30] MEDS: LATANOPROST 0.005% OPHTH DROPS 2.5 ML BTL BOTH EYES SCH (20:13)
[2021-07-31] MEDS: CALCIUM CARBONATE 500 MG CHEWABLE PO PRN ×3 (00:49→17:56)
[2021-07-31] MEDS: MORPHINE SULFATE 4 MG/ML SYRINGE IV PRN ×4 (05:32→22:12)
[2021-07-31 07:02] LABS: Glucose,Whole Blood 138 mg/dL (75-99)
[2021-07-31] MEDS: FUROSEMIDE 10 MG/ML 10 ML VIAL IV SCH ×2 (08:33→20:36)
[2021-07-31] MEDS: DILTIAZEM ORAL 30 MG TAB PO SCH ×3 (08:33→22:12)
[2021-07-31] MEDS: PILOCARPINE 5 MG TAB PO SCH ×3 (08:33→16:58)
[2021-07-31] MEDS: traMADol 50 MG TAB PO PRN ×3 (08:34→20:37)
[2021-07-31] MEDS: METOPROLOL TARTRATE 50 MG TAB PO SCH ×2 (08:34→20:37)
[2021-07-31] MEDS: CALCIUM CARB-VIT D 500 MG-5 MCG TAB PO SCH ×2 (08:34→20:39)
[2021-07-31] MEDS: APIXABAN 5 MG TAB PO SCH ×2 (08:34→20:39)
[2021-07-31] MEDS: INSULIN DETEMIR (LEVEMIR) 100 UNIT/ML SYR SQ SCH (08:34)
[2021-07-31] MEDS: LEVOTHYROXINE 125 MCG TAB PO SCH (08:35)
[2021-07-31] MEDS: AMIODARONE 100 MG TAB PO SCH (08:35)
[2021-07-31] MEDS: DIGOXIN 125 MCG TAB PO SCH (08:35)
[2021-07-31] MEDS: predniSONE 5 MG TAB PO SCH (08:35)
[2021-07-31] MEDS: OXYBUTYNIN 10 MG TAB.ER.24 PO SCH (08:37)
[2021-07-31] MEDS: metFORMIN 500 MG TAB PO SCH ×2 (08:37→16:58)
[2021-07-31] MEDS: MULTIVITAMINS, THERA 1 EACH TAB PO SCH (08:37)
[2021-07-31] MEDS: NEURONTIN 800 MG PO SCH ×2 (08:43→16:57)
[2021-07-31 11:54] LABS: Glucose,Whole Blood 171 mg/dL (75-99)
[2021-07-31 12:07] LABS: Anisocytosis Slight; Basophils # (A) 0.1 k/uL (0-0.2); Basophils % (A) 1 %; Eosinophils # (A) 0.3 k/uL (0-0.7); Eosinophils % (A) 3 %; HCT 37.7 % (34.0-46.0); HGB 11.4 gm/dL (11.4-16.0); Hypochromasia Marked; Lymphocytes # (A) 1.4 k/uL (1.0-4.8); Lymphocytes % (A) 16 %; MCH 25.8 pg (25.0-35.0); MCHC 30.2 g/dL (31.0-37.0); MCV 85.4 fL (80.0-100.0); Mean Platelet Volume 6.6; Monocytes # (A) 0.5 k/uL (0-1.0); Monocytes % (A) 6 %; Neutrophils % (A) 71 %; Platelet Count 333 k/uL (150-450); RBC 4.41 m/uL (3.80-5.40); RDW 17.7 % (11.5-15.5); WBC 8.4 k/uL (3.8-10.6)
[2021-07-31 12:23] LABS: African American GFR (CKD) 85 (>60 ml/min/1.73 sqM); Anion Gap 7 mmol/L; Blood Urea Nitrogen 22 mg/dL (7-17); Calcium 8.5 mg/dL (8.4-10.2); Carbon Dioxide 40 mmol/L (22-30); Chloride 86 mmol/L (98-107); Glucose 184 mg/dL (74-99); Magnesium 1.1 mg/dL (1.6-2.3); Non-African American GFR(CKD) 74 (>60 ml/min/1.73 sqM); Potassium 3.4 mmol/L (3.5-5.1); Sodium 133 mmol/L (137-145)
[2021-07-31] MEDS ORDERED: Magnesium Replacement Protocol 1 EACH MISC MISCELLANE PRN (12:38)
[2021-07-31] MEDS ORDERED: Potassium Replacement Protocol 1 EACH MISC MISCELLANE PRN (13:20)
[2021-07-31] MEDS: MAGNESIUM SULFATE-D5W PMX 1 GM in DEXTROSE/WATER 1 100ML.BAG IVPB SCH ×3 (13:31→16:07)
[2021-07-31] MEDS: POTASSIUM CHLORIDE ER 20 MEQ TAB.ER PO SCH ×2 (13:37→15:05)
[2021-07-31 16:49] LABS: Glucose,Whole Blood 295 mg/dL (75-99)
[2021-07-31] MEDS: TAMSULOSIN 0.4 MG CAP.ER.24H PO SCH (16:57)
--- NOTE | 2021-07-31 17:07 | P.PN ---
Subjective 80-year-old female presenting to the emergency Department with weakness and left leg injury. Patient had a fall yesterday. Patient needed assistance getting back in bed by EMS. This morning patient was unable to get out of bed. Patient states this is secondary to discomfort of her left knee area. Patient does have history of previous hip surgery. Patient denies any head injury or loss of consciousness. No syncope. Discomfort improved with morphine by EMS At the time of examination patient was reported to have elevated heart rate in the 140s and EKG revealed atrial fibrillation; patient denies any complaint of chest pain or shortness of breath; does report swelling both lower extremities up to the abdomen Cardiology on board for acute exacerbation of diastolic CHF; patient has been placed on Lasix 60 mg IV every 12 hours; patient's heart rate remains poorly controlled; cardiology recommending to discontinue amiodarone at this time and increased Cardizem up to 90 mg 3 times a day with addition of digoxin 0.25 mg daily - 2-D echo is ordered and pending I am resuming the care of the patient today 07/26/2021 This is a pleasant 80 years old female who presents with fall at rest from. She has generalized weakness and severe osteoarthritis of the knee. Patient states that she has chronic history of back and neck pain and she had previous fusion surgeries of her neck and back more than 10 years ago, her orthopedic is out of the town. She is complaining of from chronic leg weakness, but now is worsened by pain, she does not think her leg weakness is getting worse per se. No upper extremity weakness. No numbness. No dizziness. No chest pain. No dyspnea while sitting in bed. She was found to have with elevated troponin and acute CHF, diastolic type and she was currently covered with IV Lasix 60 mg twice daily. Also she was on Eliquis at home 5 mg which is continued with cardiology team followed closely for her A. fib and RVR. She has mild coronary artery disease and because of fall risk I discussed the case with cardiology team who agreed to discontinue aspirin. Also she is on home dose of prednisone of 5 mg. She is diabetic on metformin and Levemir, also she is on metoprolol and amiodarone, digoxin is admitted today by cardiology team X-rays of the left knee and femur is negative, chest x-ray showing no significant infiltrate. CT of the brain is negative. Ultrasound of both legs is negative for DVT. Labs showing WBC of 10.2, hemoglobin 9.6, repeat labs tonight ordered for tonight. Patient is getting Lasix 60 mg IV twice daily and normal saline 75 mL/h together, we are going to discontinue IV fluid for her a CHF I am Resuming the care of the patient today 07/31/2021, covering Dr. Hart over the weekend and will resume the care of the patient on Wednesday 08/02 Patient still weak and lying in bed she has minimal ability to move her both legs, she cannot lift them off the bed. No significant back pain. She's been evaluated by orthopedic team, MRI of the lumbar spine is recommended however because of her body habitus it cannot be done at this facility, patient is pending transfer to [facility]. Today she is lying in bed comfortable no distress, no shortness of breath while in bed. She has mild leg edema. She remains on IV Lasix 60 mg twice daily. Ruth catheter replaced for urinary retention Continue with insulin and prednisone. Also she is on home dose of Eliquis 5 mg Protonix. Objective - Vital Signs Vital signs: Vital Signs Temp 98 F 07/31/21 08:00 Pulse 68 07/31/21 08:00 Resp 18 07/31/21 08:00 BP 131/58 07/31/21 08:00 Pulse Ox 92 L 07/31/21 08:00 FiO2 Intake & Output 07/30/21 07/31/21 07/31/21 18:59 06:59 18:59 Intake Total 472 120 Output Total 2300 1000 Balance -1828 -1000 120 Intake: Oral 472 120 Output: Urine 2300 1000 Other: Voiding Method Indwelling Catheter Indwelling Catheter Indwelling Catheter # Voids 1 # Bowel Movements 0 - Exam GENERAL: The patient is alert and oriented x3, not in any acute distress. Morbidly obese, generally weak HEENT: Pupils are round and equally reacting to light. EOMI. No scleral icterus. No conjunctival pallor. Normocephalic, atraumatic. No pharyngeal erythema. No thyromegaly. CARDIOVASCULAR: S1 and S2 present. No murmurs, rubs, or gallops. PULMONARY: Chest is clear to auscultation, no wheezing or crackles. ABDOMEN: Soft, nontender, nondistended, normoactive bowel sounds. No palpable organomegaly. MUSCULOSKELETAL: No joint swelling or deformity. -EXTREMITIES: No cyanosis, clubbing, bilateral pitting like edema -NEUROLOGICAL: Cranial nerves are grossly intact. Sensation is intact. Strength is 5/5, they can examination is limited by severe pain in her knees and hip areas. Meningeal signs are absent. Gait is deferred SKIN: No rashes. no petechiae. - Labs CBC & Chem 7: 07/31/21 11:45 07/31/21 11:45 Labs: Abnormal Lab Results - Last 24 Hours (Table) 07/30/21 07/30/21 07/31/21 Range/Units 12:22 19:38 06:51 POC Glucose (mg/dL) 124 H 102 H 138 H (75-99) mg/dL Assessment and Plan Assessment: Persistent atrial fibrillation with RVR Acute on chronic diastolic CHF Elevated troponin, secondary to above Severe osteoarthritis with chronic neck and back pain, which may contributing to fall Anemia History of mild coronary artery disease Severe osteoarthritis of the knees Morbid obesity with BMI of 37.5. Diabetes mellitus Hypertension Hypothermic Plan: This is a pleasant 80 his old female who presents with A. fib and RVR, CHF and fall, with leg weakness Patient pending bit inability at [facility] to do a lumbar MRI as she cannot fit in this facility MRI Continue with IV Lasix, currently on 60 mg twice daily Continue with Eliquis, discontinue aspirin Continue with prednisone Event Specialist team on the case We going orthopedic team already evaluated the patient Continue Ruth catheter Labs and medication were reviewed.. Continue same treatment. Continue with symptomatic treatment. Resume home medication. Monitor lytes and vitals. DVT and GI prophylaxis. Further recommendations as per clinical course of the patient DVT prophylaxis: Eliquis GI Prophylaxis: Ppi PT/OT: Pending Prognosis is guarded
[2021-07-31 20:15] LABS: Glucose,Whole Blood 254 mg/dL (75-99)
[2021-07-31 20:19] VITALS: BP 147/61; PULSE 88; RESP 16; TEMP 98.1
--- NOTE | 2021-07-31 20:32 | P.PN ---
Progress Note - Text Progress Note Date: 07/31/21 The patient was seen and examined this morning. Long discussion with her in regards to her issues at her back and her lower extremities and her urinary status. She has had low back pain chronically for decades she says she says is quite severe and she has been through multiple surgeries and now has fusion from L2 to S1. She says her back pain is not particularly changed. She also says that she is incontinent of urine for the past 2 years. She says however that last week she was doing much better than she is now and she had a significant change after she fell. She feels significantly weaker at her right leg. She is unsure if her urinary status has worsened. When she initially presented she had told us that she had acute change in her urinary status. Currently she says she is feeling somewhat better overall. Therapy was able to get her up sitting at the side of the bed but she is not able to that on her own. She says that prior to her fall she was moving much better and moving her right leg much better. On exam she is able to dorsiflex and plantarflex to about 2+ or 3 minus out of 5. She is not able to lift her legs up off the bed. She is not able to sit herself up independently. The patient has apparent new weakness at her right lower extremity and had initially reported acute change in her urinary status Her computed tomography scan does not show any acute changes and I think with her history is necessary to get further imaging with MRI. We have tried this on 2 occasions here in the hospital but she has been unable to go through with the image and we are awaiting transfer to another facility so she can continue with sedated MRI imaging and potential further workup as needed. she seems to understand this and agrees.
[2021-07-31] MEDS: LATANOPROST 0.005% OPHTH DROPS 2.5 ML BTL BOTH EYES SCH (20:36)
[2021-07-31] MEDS: PANTOPRAZOLE 40 MG TABLET PO SCH (20:39)
[2021-08-01] MEDS: CALCIUM CARBONATE 500 MG CHEWABLE PO PRN (00:55)
[2021-08-01] MEDS: MORPHINE SULFATE 4 MG/ML SYRINGE IV PRN (01:57)
== END 2021-08-01 02:04 | DRG 291 ==
LOC: EC 12:16 → 6NMEDSUR 14:48 → OBSVTOIN 07-27 11:59
PROVIDERS: ADMIT Family Medicine; ATTEND Family Medicine
DX: I11.0 Hypertensive heart disease with heart failure (principal); I50.33 Acute on chronic diastolic (congestive) heart failure; I48.19 Other persistent atrial fibrillation; G83.4 Cauda equina syndrome; K50.90 Crohn's disease, unspecified, without complications; W19.XXXA Unspecified fall, initial encounter; Z79.899 Other long term (current) drug therapy; E03.9 Hypothyroidism, unspecified; E11.9 Type 2 diabetes mellitus without complications; Z79.4 Long term (current) use of insulin; T68.XXXA Hypothermia, initial encounter; M35.00 Sjogren syndrome, unspecified; I25.10 Atherosclerotic heart disease of native coronary artery without angina pectoris; N39.490 Overflow incontinence; R56.9 Unspecified convulsions; E78.5 Hyperlipidemia, unspecified; D64.9 Anemia, unspecified; M06.9 Rheumatoid arthritis, unspecified; I48.0 Paroxysmal atrial fibrillation; I08.1 Rheumatic disorders of both mitral and tricuspid valves; R00.0 Tachycardia, unspecified; M54.2 Cervicalgia; M54.9 Dorsalgia, unspecified; I27.20 Pulmonary hypertension, unspecified; E66.9 Obesity, unspecified; R33.8 Other retention of urine; G89.29 Other chronic pain; M10.9 Gout, unspecified; M17.0 Bilateral primary osteoarthritis of knee; Y92.009 Unspecified place in unspecified non-institutional (private) residence as the place of occurrence of the external cause; Z79.01 Long term (current) use of anticoagulants; Z79.82 Long term (current) use of aspirin; Z79.84 Long term (current) use of oral hypoglycemic drugs; Z79.890 Hormone replacement therapy; Z82.3 Family history of stroke; Z85.820 Personal history of malignant melanoma of skin; Z87.891 Personal history of nicotine dependence; Z91.81 History of falling; Z96.642 Presence of left artificial hip joint; Z96.1 Presence of intraocular lens; Z98.1 Arthrodesis status; Z98.42 Cataract extraction status, left eye; Z98.41 Cataract extraction status, right eye; Z68.37 Body mass index [BMI] 37.0-37.9, adult; Z86.14 Personal history of Methicillin resistant Staphylococcus aureus infection
CPT/HCPCS: 36415; 70450; 71046; 72128; 72131; 72170; 80048; 80053; 81001; 81003; 83735; 83880; 84443; 84484; 85025; 85027; 85610; 85730; 87635; 93306; 93970; 96361; 96374; 99285

== ENCOUNTER 2021-08-30 19:50 | Inpatient (IN) | payer MEDICARE ==
[2021-08-30 20:07] LABS: Glucose,Whole Blood 160 mg/dL (70-110)
[2021-08-30 20:28] LABS: Anisocytosis Slight; Basophils # (A) 0.1 k/uL (0-0.2); Basophils % (A) 1 %; Eosinophils # (A) 0.1 k/uL (0-0.7); Eosinophils % (A) 0 %; HCT 34.9 % (34.0-46.0); HGB 11.1 gm/dL (11.4-16.0); Hypochromasia Moderate; Lymphocytes # (A) 1.8 k/uL (1.0-4.8); Lymphocytes % (A) 9 %; MCH 27.9 pg (25.0-35.0); MCHC 31.7 g/dL (31.0-37.0); MCV 87.9 fL (80.0-100.0); Monocytes % (A) 5 %; Neutrophils # (A) 16.3 k/uL (1.3-7.7); Neutrophils % (A) 83 %; Platelet Count 175 k/uL (150-450); RBC 3.97 m/uL (3.80-5.40); RDW 18.3 % (11.5-15.5); WBC 19.6 k/uL (3.8-10.6)
[2021-08-30 20:42] LABS: ALT 15 U/L (4-34); AST 21 U/L (14-36); African American GFR (CKD) >90 (>60 ml/min/1.73 sqM); Albumin 2.6 g/dL (3.5-5.0); Alkaline Phosphatase 85 U/L (38-126); Anion Gap 5 mmol/L; Blood Urea Nitrogen 22 mg/dL (7-17); Calcium 8.2 mg/dL (8.4-10.2); Carbon Dioxide 29 mmol/L (22-30); Chloride 97 mmol/L (98-107); Glucose 163 mg/dL (74-99); Magnesium 1.8 mg/dL (1.6-2.3); Non-African American GFR(CKD) 85 (>60 ml/min/1.73 sqM); Potassium 3.7 mmol/L (3.5-5.1); Sodium 131 mmol/L (137-145); Total Bilirubin 0.8 mg/dL (0.2-1.3); Total Protein 5.5 g/dL (6.3-8.2)
--- NOTE | 2021-08-30 20:42 | XR ---
EXAMINATION TYPE: XR chest 2V DATE OF EXAM: 08/30/2021 COMPARISON: 07/23/2021 HISTORY: Fall. Pain TECHNIQUE: 2 views FINDINGS: Heart is enlarged. There is some mild pulmonary congestion. Thoracic aorta is atheromatous. No definite pleural effusion. Bony thorax is intact. IMPRESSION: Cardiomegaly and pulmonary congestion increased slightly compared to old exam. I suspect mild heart failure.
[2021-08-30 20:47] LABS: INR 1.2 (<1.2); Partial Thromboplastin Time 27.8 sec (22.0-30.0); Prothrombin Time 12.7 sec (9.0-12.0)
[2021-08-30 21:41] LABS: T4, Free (Free Thyroxine) 1.21 ng/dL (0.78-2.19)
--- NOTE | 2021-08-30 21:50 | ED ---
General Adult HPI - General Chief complaint: Arrhythmia/Palpitations Stated complaint: AFib Time Seen by Provider: 08/30/21 20:15 Source: patient Mode of arrival: ambulatory Limitations: no limitations - History of Present Illness Initial comments: 80-year-old female is brought in from [facility] for A. fib with RVR. Patient does have a history of A. fib however staff was concerned that her heart rate was higher than normal. does present to bedside and provides more history. States that the patient has been confused since Monday. She has been yelling out in pain. Reports to abdominal pain with nausea. She has had a poor appetite with very poor oral intake. Denies fevers or chills. No vomiting. The patient has not reported any diarrhea or constipation. No known head trauma. The patient's Bal been complaining of some chest pain. HPI is limited due to the patient's current mental status however does have significant medical history documented on patient which I do review - Related Data Home Medications Medication Instructions Recorded Confirmed Latanoprost [Xalatan 0.005%] 1 drop BOTH EYES HS@199908/11/17 08/30/21 Insulin Lispro [humaLOG Kwikpen] See Protocol SQ ACHS 09/25/18 08/30/21 Multivitamins, Thera [Multivitamin 1 tab PO HS@199911/19/18 08/30/21 (formulary)] Levothyroxine Sodium [Synthroid] 125 mcg PO DAILY@0800 08/02/19 08/30/21 Gabapentin 800 mg PO BID@0800,1700 07/23/21 08/30/21 predniSONE 5 mg PO DAILY@0800 07/23/21 08/30/21 Acetaminophen Tab [Tylenol] 650 mg PO Q6H PRN 08/30/21 08/30/21 Amiodarone HCl [Cordarone] 100 mg PO DAILY@0800 08/30/21 08/30/21 Apixaban [Eliquis] 5 mg PO BID@0800,1700 08/30/21 08/30/21 Artificial Tears-Hypromellose 2 drops BOTH EYES DAILY PRN 08/30/21 08/30/21 [Artificial Tear Drops] Dicyclomine [Bentyl] 10 mg PO Q8H PRN 08/30/21 08/30/21 Famotidine [Pepcid] 10 mg PO Q12H PRN 08/30/21 08/30/21 Insulin Glargine,Hum.rec.anlog 46 units SQ DAILY@0800 08/30/21 08/30/21 [Lantus Solostar Pen] Magnesium Oxide 400 mg PO BID@0800,1700 08/30/21 08/30/21 Metoprolol Tartrate [Lopressor] 100 mg PO BID@0800,1700 08/30/21 08/30/21 Omeprazole 20 mg PO DAILY@0800 08/30/21 08/30/21 Oxybutynin Chloride [Oxybutynin 10 mg PO DAILY@0808/30/21 08/30/21 Chloride ER] Tamsulosin [Flomax] 0.4 mg PO DAILY@0800 08/30/21 08/30/21 methocarbamoL [Methocarbamol] 1,000 mg PO Q6H PRN 08/30/21 08/30/21 Previous Rx's Medication Instructions Recorded Nitroglycerin Sl Tabs [Nitrostat] 0.4 mg SUBLINGUAL Q5M PRN #30 tab 08/13/17 Allergies Allergy/AdvReac Type Severity Reaction Status Date / Time adhesive Allergy Rash/Hives Verified 08/30/21 23:15 cephalexin [From Keflex] Allergy Rash/Hives Verified 08/30/21 23:15 grass pollen Allergy Unknown Verified 08/30/21 23:15 mold Allergy Unknown Verified 08/30/21 23:15 Sulfa (Sulfonamide Allergy Rash/Hives Verified 08/30/21 23:15 Antibiotics) newspaper ink Allergy Mild Unknown Uncoded 08/30/21 20:11 Review of Systems ROS Statement: Those systems with pertinent positive or pertinent negative responses have been documented in the HPI. ROS Other: All systems not noted in ROS Statement are negative. Past Medical History Past Medical History: Atrial Fibrillation, Coronary Artery Disease (CAD), Cancer, Diabetes Mellitus, Hyperlipidemia, Hypertension, Musculoskeletal Disorder, Neurologic Disorder, Osteoarthritis (OA), Pneumonia, Renal Disease, Rheumatoid Arthritis (RA), Skin Disorder, Thyroid Disorder Additional Past Medical History / Comment(s): Morbid obesity, chronic atrial fibrillation, diabetes mellitus type 2, hypertension, hyperlipidemia, spinal stenosis, osteoarthritis, hypothyroidism, hypertension, history of skin melanoma, history of bursitis with MRSA post I&D, rheumatoid arthritis, Sjogren's disease, 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 Past Anesthesia/Blood Transfusion Reactions: No Reported Reaction Past Psychological History: No Psychological Hx Reported Smoking Status: Former smoker Past Alcohol Use History: None Reported Past Drug Use History: None Reported - Past Family History Mother Family Medical History: CVA/TIA Additional Family Medical History / Comment(s): RUPTURED BOWEL Father Family Medical History: Cancer, Pneumonia Additional Family Medical History / Comment(s): ASPIRATIVE PNA Sister(s) Additional Family Medical History / Comment(s): at age 34 with lupus General Exam Limitations: altered mental status General appearance: alert, in no apparent distress, lethargic Head exam: Present: atraumatic, normocephalic, normal inspection Eye exam: Present: normal appearance, PERRL, EOMI. Absent: scleral icterus, conjunctival injection, periorbital swelling ENT exam: Present: normal exam, mucous membranes dry Neck exam: Present: normal inspection. Absent: tenderness, meningismus, lymphadenopathy Respiratory exam: Present: normal lung sounds bilaterally. Absent: respiratory distress, wheezes, rales, rhonchi, stridor Cardiovascular Exam: Present: tachycardia, irregular rhythm, normal heart sounds. Absent: systolic murmur, diastolic murmur, rubs, gallop, clicks GI/Abdominal exam: Present: distended, tenderness (generalized), normal bowel sounds. Absent: guarding, rebound, rigid Extremities exam: Present: normal inspection, full ROM, normal capillary refill. Absent: tenderness, pedal edema, joint swelling, calf tenderness Back exam: Present: normal inspection Neurological exam: Present: altered, CN II-XII intact Psychiatric exam: Present: flat affect Skin exam: Present: warm, dry, intact, normal color. Absent: rash Course Vital Signs 08/30/21 08/30/21 08/30/21 20:11 21:00 22:00 Temperature 98.1 F Pulse Rate 108 H 113 H Respiratory 20 21 24 Rate Blood Pressure 93/52 114/65 113/61 O2 Sat by Pulse 96 Oximetry 08/30/21 08/31/21 08/31/21 23:00 00:00 01:00 Temperature Pulse Rate 125 H 111 H 113 H Respiratory 22 24 21 Rate Blood Pressure 96/56 108/56 107/92 O2 Sat by Pulse 95 Oximetry 08/31/21 08/31/21 08/31/21 02:00 03:00 04:00 Temperature Pulse Rate 112 H 130 H 118 H Respiratory 22 24 24 Rate Blood Pressure 119/75 106/56 86/67 O2 Sat by Pulse Oximetry 08/31/21 08/31/21 08/31/21 05:00 06:00 07:30 Temperature Pulse Rate 115 H 124 H Respiratory 22 22 Rate Blood Pressure 95/71 113/80 109/71 O2 Sat by Pulse 92 L 95 Oximetry 08/31/21 08/31/21 08/31/21 08:27 09:30 12:32 Temperature Pulse Rate 112 H 105 H 101 H Respiratory 22 22 18 Rate Blood Pressure 111/53 111/53 101/50 O2 Sat by Pulse 94 L 97 99 Oximetry 08/31/21 13:34 Temperature Pulse Rate 100 Respiratory 22 Rate Blood Pressure 96/75 O2 Sat by Pulse 100 Oximetry EKG Findings - EKG Comments: EKG Findings:: EKG demonstrates A. fib with a rate of 106. QRS 111. QTC 385. No acute ST segment elevations or depressions Medical Decision Making - Medical Decision Making Upon arrival patient is placed in a trauma 2. A thorough history and physical exam was performed. Patient is in A. fib however rate is only between 105 and 115. IV is established and laboratory studies are conducted. White count of 19.6. Sodium 131. Troponin 0.053. BNP 10,700. Urinalysis does demonstrate moderate bacteria. No old urine cultures. CT of the head and cervical spine demonstrates no acute process. Chest x-ray demonstrates mild pulmonary vascular congestion. CT of the abdomen and pelvis demonstrates ileus. Gallbladder is thickened with questionable signs of cystitis. Patient is placed on Colace and MiraLAX. She is additionally started on Zosyn for her urinary tract infection and questionable cholecystitis. is updated. I did order her home meds for her A. fib. does agree to admission. Patient awaiting a bed on the floor in stable condition - Lab Data Result diagrams: 09/02/21 08:26 09/02/21 08:26 Lab Results 08/30/21 08/30/21 08/30/21 Range/Units 20:06 20:17 20:17 WBC 19.6 H (3.8-10.6) k/uL RBC 3.97 (3.80-5.40) m/uL Hgb 11.1 L (11.4-16.0) gm/dL Hct 34.9 (34.0-46.0) % MCV 87.9 (80.0-100.0) fL MCH 27.9 (25.0-35.0) pg MCHC 31.7 (31.0-37.0) g/dL RDW 18.3 H (11.5-15.5) % Plt Count 175 (150-450) k/uL MPV 8.0 Neutrophils % 83 % Lymphocytes % 9 % Monocytes % 5 % Eosinophils % 0 % Basophils % 1 % Neutrophils # 16.3 H (1.3-7.7) k/uL Lymphocytes # 1.8 (1.0-4.8) k/uL Monocytes # 1.0 (0-1.0) k/uL Eosinophils # 0.1 (0-0.7) k/uL Basophils # 0.1 (0-0.2) k/uL Hypochromasia Moderate Anisocytosis Slight PT 12.7 H (9.0-12.0) sec INR 1.2 H (<1.2) APTT 27.8 (22.0-30.0) sec Sodium (137-145) mmol/L Potassium (3.5-5.1) mmol/L Chloride (98-107) mmol/L Carbon Dioxide (22-30) mmol/L Anion Gap mmol/L BUN (7-17) mg/dL Creatinine (0.52-1.04) mg/dL Est GFR (CKD-EPI)AfAm (>60 ml/min/1.73 sqM) Est GFR (CKD-EPI)NonAf (>60 ml/min/1.73 sqM) Glucose (74-99) mg/dL POC Glucose (mg/dL) 160 H (70-110) mg/dL POC Glu Stage Builder ID Joaquim Quarles Calcium (8.4-10.2) mg/dL Magnesium (1.6-2.3) mg/dL Total Bilirubin (0.2-1.3) mg/dL AST (14-36) U/L ALT (4-34) U/L Alkaline Phosphatase (38-126) U/L Troponin I (0.000-0.034) ng/mL NT-Pro-B Natriuret Pep pg/mL Total Protein (6.3-8.2) g/dL Albumin (3.5-5.0) g/dL Lipase (23-300) U/L TSH (0.465-4.680) mIU/L Free T4 (0.78-2.19) ng/dL Urine Color Urine Appearance (Clear) Urine pH (5.0-8.0) Ur Specific [place] (1.001-1.035) Urine Protein (Negative) Urine Glucose (UA) (Negative) Urine Ketones (Negative) Urine Blood (Negative) Urine Nitrite (Negative) Urine Bilirubin (Negative) Urine Urobilinogen (<2.0) mg/dL Ur Leukocyte Esterase (Negative) Urine RBC (0-5) /hpf Urine WBC (0-5) /hpf Urine WBC Clumps (None) /hpf Ur Squamous Epith Cells (0-4) /hpf Ur Transition Epith Cell (0-1) /hpf Ur Renal Epithelial Cell (0) /hpf Urine Bacteria (None) /hpf Urine Mucus (None) /hpf 08/30/21 08/30/21 08/30/21 Range/Units 20:17 20:17 20:44 WBC (3.8-10.6) k/uL RBC (3.80-5.40) m/uL Hgb (11.4-16.0) gm/dL Hct (34.0-46.0) % MCV (80.0-100.0) fL MCH (25.0-35.0) pg MCHC (31.0-37.0) g/dL RDW (11.5-15.5) % Plt Count (150-450) k/uL MPV Neutrophils % % Lymphocytes % % Monocytes % % Eosinophils % % Basophils % % Neutrophils # (1.3-7.7) k/uL Lymphocytes # (1.0-4.8) k/uL Monocytes # (0-1.0) k/uL Eosinophils # (0-0.7) k/uL Basophils # (0-0.2) k/uL Hypochromasia Anisocytosis PT (9.0-12.0) sec INR (<1.2) APTT (22.0-30.0) sec Sodium 131 L (137-145) mmol/L Potassium 3.7 (3.5-5.1) mmol/L Chloride 97 L (98-107) mmol/L Carbon Dioxide 29 (22-30) mmol/L Anion Gap 5 mmol/L BUN 22 H (7-17) mg/dL Creatinine 0.64 (0.52-1.04) mg/dL Est GFR (CKD-EPI)AfAm >90 (>60 ml/min/1.73 sqM) Est GFR (CKD-EPI)NonAf 85 (>60 ml/min/1.73 sqM) Glucose 163 H (74-99) mg/dL POC Glucose (mg/dL) (70-110) mg/dL POC Glu Stage Builder ID Calcium 8.2 L (8.4-10.2) mg/dL Magnesium 1.8 (1.6-2.3) mg/dL Total Bilirubin 0.8 (0.2-1.3) mg/dL AST 21 (14-36) U/L ALT 15 (4-34) U/L Alkaline Phosphatase 85 (38-126) U/L Troponin I 0.053 H* (0.000-0.034) ng/mL NT-Pro-B Natriuret Pep 88146 pg/mL Total Protein 5.5 L (6.3-8.2) g/dL Albumin 2.6 L (3.5-5.0) g/dL Lipase (23-300) U/L TSH 7.140 H (0.465-4.680) mIU/L Free T4 1.21 (0.78-2.19) ng/dL Urine Color Urine Appearance (Clear) Urine pH (5.0-8.0) Ur Specific [place] (1.001-1.035) Urine Protein (Negative) Urine Glucose (UA) (Negative) Urine Ketones (Negative) Urine Blood (Negative) Urine Nitrite (Negative) Urine Bilirubin (Negative) Urine Urobilinogen (<2.0) mg/dL Ur Leukocyte Esterase (Negative) Urine RBC (0-5) /hpf Urine WBC (0-5) /hpf Urine WBC Clumps (None) /hpf Ur Squamous Epith Cells (0-4) /hpf Ur Transition Epith Cell (0-1) /hpf Ur Renal Epithelial Cell (0) /hpf Urine Bacteria (None) /hpf Urine Mucus (None) /hpf 08/30/21 08/30/21 Range/Units 21:03 23:18 WBC (3.8-10.6) k/uL RBC (3.80-5.40) m/uL Hgb (11.4-16.0) gm/dL Hct (34.0-46.0) % MCV (80.0-100.0) fL MCH (25.0-35.0) pg MCHC (31.0-37.0) g/dL RDW (11.5-15.5) % Plt Count (150-450) k/uL MPV Neutrophils % % Lymphocytes % % Monocytes % % Eosinophils % % Basophils % % Neutrophils # (1.3-7.7) k/uL Lymphocytes # (1.0-4.8) k/uL Monocytes # (0-1.0) k/uL Eosinophils # (0-0.7) k/uL Basophils # (0-0.2) k/uL Hypochromasia Anisocytosis PT (9.0-12.0) sec INR (<1.2) APTT (22.0-30.0) sec Sodium (137-145) mmol/L Potassium (3.5-5.1) mmol/L Chloride (98-107) mmol/L Carbon Dioxide (22-30) mmol/L Anion Gap mmol/L BUN (7-17) mg/dL Creatinine (0.52-1.04) mg/dL Est GFR (CKD-EPI)AfAm (>60 ml/min/1.73 sqM) Est GFR (CKD-EPI)NonAf (>60 ml/min/1.73 sqM) Glucose (74-99) mg/dL POC Glucose (mg/dL) (70-110) mg/dL POC Glu Stage Builder ID Calcium (8.4-10.2) mg/dL Magnesium (1.6-2.3) mg/dL Total Bilirubin (0.2-1.3) mg/dL AST (14-36) U/L ALT (4-34) U/L Alkaline Phosphatase (38-126) U/L Troponin I (0.000-0.034) ng/mL NT-Pro-B Natriuret Pep pg/mL Total Protein (6.3-8.2) g/dL Albumin (3.5-5.0) g/dL Lipase 10 L (23-300) U/L TSH (0.465-4.680) mIU/L Free T4 (0.78-2.19) ng/dL Urine Color Yellow Urine Appearance Cloudy H (Clear) Urine pH 5.5 (5.0-8.0) Ur Specific [place] 1.037 H (1.001-1.035) Urine Protein 1+ H (Negative) Urine Glucose (UA) Negative (Negative) Urine Ketones Negative (Negative) Urine Blood Small H (Negative) Urine Nitrite Negative (Negative) Urine Bilirubin Negative (Negative) Urine Urobilinogen <2.0 (<2.0) mg/dL Ur Leukocyte Esterase Large H (Negative) Urine RBC 7 H (0-5) /hpf Urine WBC 122 H (0-5) /hpf Urine WBC Clumps Few H (None) /hpf Ur Squamous Epith Cells 3 (0-4) /hpf Ur Transition Epith Cell <1 (0-1) /hpf Ur Renal Epithelial Cell <1 (0) /hpf Urine Bacteria Moderate H (None) /hpf Urine Mucus Few H (None) /hpf Disposition Clinical Impression: Abdominal pain, Ileus, UTI (urinary tract infection), Cholecystitis, Leukocytosis, Atrial fibrillation with RVR Disposition: ADMITTED IP TO THIS HOSP Condition: Stable Is patient prescribed a controlled substance at d/c from ED?: No Time of Disposition: 01:19 Decision to Admit Reason: Admit from EC Decision Date: 08/31/21 Decision Time: 01:19
--- NOTE | 2021-08-30 22:02 | CT ---
EXAMINATION TYPE: CT abdomen pelvis w con DATE OF EXAM: 08/30/2021 COMPARISON: 09/25/2020 HISTORY: Abdominal pain. CT DLP: 3715 mGycm Automated exposure control for dose reduction was used. CONTRAST: Performed with IV Contrast, patient injected with 100ml mL of Isovue 300. Images obtained from the diaphragm to the floor of the pelvis with the IV contrast. There is some patchy interstitial infiltrate and atelectasis at the lung bases. No pleural effusion. Heart is mildly enlarged. No pericardial effusion. Liver is intact. The gallbladder is dilated with mild wall thickening. Gallbladder measures 6 cm in d iameter. Spleen is intact. The stomach is intact. No evidence of pancreatic mass. The bile ducts are not dilated. There is no adrenal mass. Kidneys have normal size. No hydronephrosis. Ureters are not dilated. Delay ed images show little renal excretion. There is no retroperitoneal adenopathy. There is left hip pros thesis. There is some retained fecal material in the rectum. No evidence of free air. There is some g as-filled distended large bowel. There is some retained fecal material in the large bowel. No sign of free air. No mesenteric edema. There is some minimal fluid in the right paracolic gutter. There is lower lumbar spine and multilevel posterior fusion surgery with rods and screws. IMPRESSION: There is some interstitial infiltrate and atelectasis at the lung bases increased compared to old exa m. Cardiomegaly. Dilated gallbladder with some wall thickening that is increased compared to old exam an d consistent with cholecystitis. Minimal fluid in the right paracolic gutter is new and could relate to cholecystitis. Large bowel ileus and constipation.
--- NOTE | 2021-08-30 22:06 | CT ---
EXAMINATION TYPE: CT brain simon gavin DATE OF EXAM: 08/30/2021 COMPARISON: None HISTORY: Altered mental status. CT DLP: 1594.8 mGycm Automated exposure control for dose reduction was used. Images of the brain and cervical spine obtained with no contrast. There is diffuse cerebral cortical atrophy. There is no mass effect or midline shift. No sign of intr acranial hemorrhage. There is 1.5 cm area of hypodensity in the cortex right posterior temporal lobe that could be an old infarct. The calvarium is intact. There is normal aeration of the mastoid sinuse s. The cervical vertebra have normal alignment. There is plate with screws fusing anteriorly the cervica l spine from C4 to C6. There is hypertrophic multilevel facet arthropathy. There is no evidence of fo fran bone destruction. IMPRESSION: Previous cervical spine fusion surgery. Spondylotic changes. No fracture in the cervical spine. Cerebral atrophy. No acute intracranial abnormality. 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
[2021-08-30] MEDS: SODIUM CHLORIDE 0.9% 1,000 ML IV SCH (23:20)
[2021-08-31 00:13] LABS: Appearance,Urine Cloudy (Clear); Bacteria,Urine Moderate /hpf; Bilirubin,Urine Negative (Negative); Blood,Urine Small (Negative); Color,Urine Yellow; Glucose,Urine (UA) Negative (Negative); Ketones,Urine Negative (Negative); Leukocyte Esterase,Urine Large (Negative); Mucus,Urine Few /hpf; Nitrite,Urine Negative (Negative); PH, Urine 5.5 (5.0-8.0); Protein,Urine 1+ (Negative); RBC,Urine 7 /hpf (0-5); Renal Epithelial Cells,Urine <1 /hpf (0); Specific Gravity,Urine 1.037 (1.001-1.035); Squamous Epithelial Cell,Urine 3 /hpf (0-4); Transitional Epi Cells,Urine <1 /hpf (0-1); Urobilinogen,Urine <2.0 mg/dL (<2.0); WBC,Urine 122 /hpf (0-5)
[2021-08-31] MEDS ORDERED: DILTIAZEM CD 120 MG CAP.ER.24H PO STA (00:27)
[2021-08-31] MEDS ORDERED: GABAPENTIN 400 MG CAP PO STA (00:29)
[2021-08-31] MEDS ORDERED: fentaNYL (PF) 50 MCG/ML 2 ML AMP IVP STA (00:50)
[2021-08-31] MEDS ORDERED: LEVOFLOXACIN 750MG-D5W PMX 750 MG in DEXTROSE/WATER 1 150ML.BAG IVPB STA (00:54)
[2021-08-31] MEDS ORDERED: NALOXONE 0.4 MG/ML 1 ML VIAL IV PRN (01:30)
[2021-08-31] MEDS: PIPERACILLIN-TAZOBACTAM 3.375 GM in SODIUM CHLORIDE 0.9% 100 ML IVPB SCH ×3 (02:13→18:20)
[2021-08-31] MEDS ORDERED: LORazepam 2 MG/ML INJ IV STA (03:31)
[2021-08-31] MEDS: SODIUM CHLORIDE 0.9% 1,000 ML IV SCH ×3 (05:17→22:24)
[2021-08-31] MEDS ORDERED: HYDROmorphone 0.5 MG/0.5 ML SYRINGE IVP STA (05:22)
[2021-08-31] MEDS: polyethylene glycoL 3350 17 GM POWD.PACK PO SCH (08:12)
[2021-08-31] MEDS: METOPROLOL TARTRATE 50 MG TAB PO SCH ×2 (08:45→17:53)
--- NOTE | 2021-08-31 08:53 | US ---
EXAMINATION TYPE: US gallbladder DATE OF EXAM: 08/31/2021 COMPARISON: none CLINICAL HISTORY: possible cholecystitis. Poor historian. Patient unable to move or follow instructio ns. EXAM MEASUREMENTS: Liver Length: 20.0 cm Gallbladder Wall: 0.7 cm Right Kidney: 11.5 x 5.2 x 5.9 cm Limited due to patient body habitus and patient unable to move Pancreas: Obscured by bowel gas Liver: Limited visualization Gallbladder: Internal echoes visualized, gb wall thickening Evidence for sonographic Jerry's sign: neg CBD: Obscured by overlying bowel gas Right Kidney: No hydronephrosis or masses seen IMPRESSION: Internal echoes are seen within the gallbladder lumen as well as associated wall thickening.
[2021-08-31] MEDS: predniSONE 5 MG TAB PO SCH (08:56)
[2021-08-31] MEDS: DOCUSATE 100 MG CAP PO SCH ×2 (08:56→20:39)
[2021-08-31] MEDS: DIGOXIN 125 MCG TAB PO SCH (08:56)
--- NOTE | 2021-08-31 08:56 | P.HPIM ---
History of Present Illness H&P Date: 08/31/21 Chief Complaint: Atrial fibrillation with poor ambulation. This is history and physical on a 80-year-old white female with known history of atrial fibrillation. The patient was recently discharged from the hospital because she could not tolerate MRI of the lumbar spine which was ordered secondary to her inability to ambulate. She went to [facility] and found that the MRI showed that she only had chronic changes however ambulation has been very difficult and she has returned secondary to rehab. However, the patient has had significant worsening heart rate and was admitted for evaluation of this. She has chronic atrial fibrillation. However, cognitively she's becoming more unresponsive. She now has developed elevated white blood cell count and workup does show UTI but possible cholecystitis. Surgery is not consulted. Poor by mouth intake otherwise. Review of Systems ROS unobtainable: due to mental status Past Medical History Past Medical History: Atrial Fibrillation, Coronary Artery Disease (CAD), Cancer, Diabetes Mellitus, Hyperlipidemia, Hypertension, Musculoskeletal Disorder, Neurologic Disorder, Osteoarthritis (OA), Pneumonia, Renal Disease, Rheumatoid Arthritis (RA), Skin Disorder, Thyroid Disorder Additional Past Medical History / Comment(s): Morbid obesity, chronic atrial fibrillation, diabetes mellitus type 2, hypertension, hyperlipidemia, spinal stenosis, osteoarthritis, hypothyroidism, hypertension, history of skin melano ma, history of bursitis with MRSA post I&D, rheumatoid arthritis, Sjogren's disease, 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 Past Anesthesia/Blood Transfusion Reactions: No Reported Reaction Past Psychological History: No Psychological Hx Reported Smoking Status: Former smoker Past Alcohol Use History: None Reported Past Drug Use History: None Reported - Past Family History Mother Family Medical History: CVA/TIA Additional Family Medical History / Comment(s): RUPTURED BOWEL Father Family Medical History: Cancer, Pneumonia Additional Family Medical History / Comment(s): ASPIRATIVE PNA Sister(s) Additional Family Medical History / Comment(s): at age 34 with lupus Medications and Allergies Home Medications Medication Instructions Recorded Confirmed Type Latanoprost [Xalatan 0.005%] 1 drop BOTH EYES HS@199908/11/17 08/30/21 History Nitroglycerin Sl Tabs [Nitrostat] 0.4 mg SUBLINGUAL Q5M PRN #30 tab 08/13/17 08/30/21 Rx Insulin Lispro [humaLOG Kwikpen] See Protocol SQ ACHS 09/25/18 08/30/21 History Multivitamins, Thera [Multivitamin 1 tab PO HS@199911/19/18 08/30/21 History (formulary)] Levothyroxine Sodium [Synthroid] 125 mcg PO DAILY@0800 08/02/19 08/30/21 History Gabapentin 800 mg PO BID@0800,1700 07/23/21 08/30/21 History predniSONE 5 mg PO DAILY@0800 07/23/21 08/30/21 History Acetaminophen Tab [Tylenol] 650 mg PO Q6H PRN 08/30/21 08/30/21 History Amiodarone HCl [Cordarone] 100 mg PO DAILY@0800 08/30/21 08/30/21 History Apixaban [Eliquis] 5 mg PO BID@0800,1700 08/30/21 08/30/21 History Artificial Tears-Hypromellose 2 drops BOTH EYES DAILY PRN 08/30/21 08/30/21 History [Artificial Tear Drops] Dicyclomine [Bentyl] 10 mg PO Q8H PRN 08/30/21 08/30/21 History Famotidine [Pepcid] 10 mg PO Q12H PRN 08/30/21 08/30/21 History Insulin Glargine,Hum.rec.anlog 46 units SQ DAILY@0800 08/30/21 08/30/21 History [Lantus Solostar Pen] Magnesium Oxide 400 mg PO BID@0800,1700 08/30/21 08/30/21 History Metoprolol Tartrate [Lopressor] 100 mg PO BID@0800,1700 08/30/21 08/30/21 History Omeprazole 20 mg PO DAILY@0800 08/30/22 07/04/22 History Oxybutynin Chloride [Oxybutynin 10 mg PO DAILY@79908/30/21 08/30/21 History Chloride ER] Tamsulosin [Flomax] 0.4 mg PO DAILY@79908/30/21 08/30/21 History methocarbamoL [Methocarbamol] 1,000 mg PO Q6H PRN 08/30/21 08/30/21 History Allergies Allergy/AdvReac Type Severity Reaction Status Date / Time adhesive Allergy Rash/Hives Verified 08/30/21 23:15 cephalexin [From Keflex] Allergy Rash/Hives Verified 08/30/21 23:15 grass pollen Allergy Unknown Verified 08/30/21 23:15 mold Allergy Unknown Verified 08/30/21 23:15 Sulfa (Sulfonamide Allergy Rash/Hives Verified 08/30/21 23:15 Antibiotics) newspaper ink Allergy Mild Unknown Uncoded 08/30/21 20:11 Physical Exam Vitals: Vital Signs Temp Pulse Resp BP Pulse Ox 08/31/21 08:27 112 H 22 111/53 94 L 08/31/21 06:00 115 H 22 113/80 92 L 08/31/21 05:00 95/71 08/31/21 04:00 118 H 24 86/67 08/31/21 03:00 130 H 24 106/56 08/31/21 02:00 112 H 22 119/75 08/31/21 01:00 113 H 21 107/92 95 08/31/21 00:00 111 H 24 108/56 08/30/21 23:00 125 H 22 96/56 08/30/21 22:00 24 113/61 08/30/21 21:00 113 H 21 114/65 08/30/21 20:11 98.1 F 108 H 20 93/52 96 Intake and Output 08/30/21 08/31/21 08/31/21 22:59 06:59 14:59 Other: Weight 142 kg - Constitutional General appearance: no cooperative, obese - EENT Eyes: EOMI - Neck Neck: no lymphadenopathy - Respiratory Respiratory: bilateral: CTA - Cardiovascular Rhythm: regular Heart sounds: normal: S1, S2 Abnormal Heart Sounds: no S3 Gallop - Gastrointestinal General gastrointestinal: distended, soft, no tenderness - Integumentary Integumentary: no cellulitis - Psychiatric Psychiatric: no A&O x's 3, no appropriate affect Results CBC & Chem 7: 08/30/21 20:17 08/30/21 20:17 Labs: Abnormal Lab Results - Last 24 Hours (Table) 08/30/21 08/30/21 08/30/21 Range/Units 20:06 20:17 20:17 WBC 19.6 H (3.8-10.6) k/uL Hgb 11.1 L (11.4-16.0) gm/dL RDW 18.3 H (11.5-15.5) % Neutrophils # 16.3 H (1.3-7.7) k/uL PT 12.7 H (9.0-12.0) sec INR 1.2 H (<1.2) Sodium (137-145) mmol/L Chloride (98-107) mmol/L BUN (7-17) mg/dL Glucose (74-99) mg/dL POC Glucose (mg/dL) 160 H (70-110) mg/dL Calcium (8.4-10.2) mg/dL Troponin I (0.000-0.034) ng/mL Total Protein (6.3-8.2) g/dL Albumin (3.5-5.0) g/dL Lipase (23-300) U/L TSH (0.465-4.680) mIU/L Urine Appearance (Clear) Ur Specific [place] (1.001-1.035) Urine Protein (Negative) Urine Blood (Negative) Ur Leukocyte Esterase (Negative) Urine RBC (0-5) /hpf Urine WBC (0-5) /hpf Urine WBC Clumps (None) /hpf Urine Bacteria (None) /hpf Urine Mucus (None) /hpf 08/30/21 08/30/21 08/30/21 Range/Units 20:17 20:17 21:03 WBC (3.8-10.6) k/uL Hgb (11.4-16.0) gm/dL RDW (11.5-15.5) % Neutrophils # (1.3-7.7) k/uL PT (9.0-12.0) sec INR (<1.2) Sodium 131 L (137-145) mmol/L Chloride 97 L (98-107) mmol/L BUN 22 H (7-17) mg/dL Glucose 163 H (74-99) mg/dL POC Glucose (mg/dL) (70-110) mg/dL Calcium 8.2 L (8.4-10.2) mg/dL Troponin I 0.053 H* (0.000-0.034) ng/mL Total Protein 5.5 L (6.3-8.2) g/dL Albumin 2.6 L (3.5-5.0) g/dL Lipase 10 L (23-300) U/L TSH 7.140 H (0.465-4.680) mIU/L Urine Appearance (Clear) Ur Specific [place] (1.001-1.035) Urine Protein (Negative) Urine Blood (Negative) Ur Leukocyte Esterase (Negative) Urine RBC (0-5) /hpf Urine WBC (0-5) /hpf Urine WBC Clumps (None) /hpf Urine Bacteria (None) /hpf Urine Mucus (None) /hpf 08/30/21 Range/Units 23:18 WBC (3.8-10.6) k/uL Hgb (11.4-16.0) gm/dL RDW (11.5-15.5) % Neutrophils # (1.3-7.7) k/uL PT (9.0-12.0) sec INR (<1.2) Sodium (137-145) mmol/L Chloride (98-107) mmol/L BUN (7-17) mg/dL Glucose (74-99) mg/dL POC Glucose (mg/dL) (70-110) mg/dL Calcium (8.4-10.2) mg/dL Troponin I (0.000-0.034) ng/mL Total Protein (6.3-8.2) g/dL Albumin (3.5-5.0) g/dL Lipase (23-300) U/L TSH (0.465-4.680) mIU/L Urine Appearance Cloudy H (Clear) Ur Specific [place] 1.037 H (1.001-1.035) Urine Protein 1+ H (Negative) Urine Blood Small H (Negative) Ur Leukocyte Esterase Large H (Negative) Urine RBC 7 H (0-5) /hpf Urine WBC 122 H (0-5) /hpf Urine WBC Clumps Few H (None) /hpf Urine Bacteria Moderate H (None) /hpf Urine Mucus Few H (None) /hpf Assessment and Plan (1) Cholecystitis Current Visit: Yes Status: Acute Code(s): K81.9 - CHOLECYSTITIS, UNSPECIFIED SNOMED Code(s): 30148461 (2) Ileus Current Visit: Yes Status: Acute Code(s): K56.7 - ILEUS, UNSPECIFIED SNOMED Code(s): 237293942 (3) UTI (urinary tract infection) Current Visit: Yes Status: Acute Code(s): N39.0 - URINARY TRACT INFECTION, SITE NOT SPECIFIED SNOMED Code(s): 19946114 (4) CAD (coronary artery disease) Current Visit: No Status: Acute Code(s): I25.10 - ATHSCL HEART DISEASE OF [place] CORONARY ARTERY W/O ANG PCTRS SNOMED Code(s): 85805468 (5) Congestive heart failure Current Visit: No Status: Acute Code(s): I50.9 - HEART FAILURE, UNSPECIFIED SNOMED Code(s): 71706633 (6) Diabetes Current Visit: No Status: Acute Code(s): E11.9 - TYPE 2 DIABETES MELLITUS WITHOUT COMPLICATIONS SNOMED Code(s): 12555873 (7) Elevated troponin Current Visit: No Status: Acute Code(s): R74.8 - ABNORMAL LEVELS OF OTHER SERUM ENZYMES SNOMED Code(s): 097807690 (8) History of total left hip arthroplasty Current Visit: No Status: Acute Code(s): Z96.642 - PRESENCE OF LEFT ARTIFICIAL HIP JOINT SNOMED Code(s): 031662037965 (9) Hypertension Current Visit: No Status: Acute Code(s): I10 - ESSENTIAL (PRIMARY) HYPERTENSION SNOMED Code(s): 48069284 (10) Hypothyroidism Current Visit: No Status: Acute Code(s): E03.9 - HYPOTHYROIDISM, UNSPECIFIED SNOMED Code(s): 02234368 Plan: Continue current regimen of antibiotic treatment. Ultrasound of abdomen is pending. Appreciate surgical input. Consider cardiology evaluation for atrial flutter especially if the patient is not able to tolerate by mouth medication. Prognosis is guarded secondary to multiple comorbidities. check CBC and CMP in a.m. Sliding scale otherwise.
[2021-08-31] MEDS: TAMSULOSIN 0.4 MG CAP.ER.24H PO SCH (08:57)
[2021-08-31] MEDS: OXYBUTYNIN 10 MG TAB.ER.24 PO SCH (08:58)
[2021-08-31] MEDS: APIXABAN 5 MG TAB PO SCH ×2 (08:58→22:44)
[2021-08-31] MEDS: AMIODARONE 100 MG TAB PO SCH (08:59)
[2021-08-31] MEDS: LEVOTHYROXINE 125 MCG TAB PO SCH (08:59)
[2021-08-31] MEDS: PANTOPRAZOLE 40 MG/10 ML VIAL IVP SCH (09:02)
[2021-08-31] MEDS: GABAPENTIN 400 MG CAP PO SCH ×2 (09:03→17:53)
[2021-08-31] MEDS ORDERED: LORazepam 2 MG/ML INJ IV PRN (10:10)
[2021-08-31] MEDS ORDERED: ACETAMINOPHEN TAB 325 MG TAB PO PRN (16:16)
--- NOTE | 2021-08-31 17:24 | P.GSCN ---
History of Present Illness Consult date: 08/31/21 Reason for Consult: Cholecystitis History of present illness: This 80-year-old female admitted to Dr. Hart service. Patient is unable to give any significant medical history. Apparently she has had some complaints of abdominal pain. Patient's CAT scan suggestive of cholecystitis. Patient's currently on liquids. She is also been diagnosed with atrial ablation with rapid ventricular rate. Past Medical History Past Medical History: Atrial Fibrillation, Coronary Artery Disease (CAD), Cancer, Heart Failure, Diabetes Mellitus, Eye Disorder, GERD/Reflux, Hyperlipidemia, Hypertension, Musculoskeletal Disorder, Neurologic Disorder, Pneumonia, Renal Disease, Rheumatoid Arthritis (RA), Skin Disorder, Thyroid Disorder, Vascular Disorder Additional Past Medical History / Comment(s): IDDM type II, chronic Afib, pulmonary htn, mediastinal lymphodenopathy, past pleurisy, neurologic sjogren's, psoriatic arthritis, chronic pain, balance issues/FALLS, melanoma L arm with removal, UTIs, UTI with sepsis, urinary retention, episodes of acute renal failure/renal cysts, gout, bilateral elbow bursitis/mrsa, gastric and colon polyps, diverticular disease, mouth/throat ulcers, vasculitis bilateral arms, hypothyroid, past cellulitis R breast, dental issues. History of Any Multi-Drug Resistant Organisms: MRSA Year Discovered:: 02/27/14 MDRO Source:: Sputum Past Surgical History: Back Surgery, Breast Surgery, Heart Catheterization, Joint Replacement, Orthopedic Surgery Additional Past Surgical History / Comment(s): Bilateral cataracts with lens implants/eye surgeries, arthroscopies to lt wrist/gualberto knees/ gualberto ankles/ gualberto hips, lt hip replacment and redone, L/R shoulder sxs, rt breast bx-benign, egd/colonoscopy, skin cancer removal L arm, salivary gland biopsy, ERIK/cardioversion, Past Anesthesia/Blood Transfusion Reactions: Previous Problems w/ Anesthesia Additional Past Anesthesia/Blood Transfusion Reaction / Comm: Pt has been told not to have anesthesia metabolized by the kidneys and has neurologic Sjogren's with post anesthesia paralysis. Smoking Status: Former smoker - Past Family History Mother Family Medical History: CVA/TIA Additional Family Medical History / Comment(s): RUPTURED BOWEL Father Family Medical History: Cancer, Pneumonia Additional Family Medical History / Comment(s): ASPIRATIVE PNA Sister(s) Additional Family Medical History / Comment(s): at age 34 with lupus Medications and Allergies Home Medications Medication Instructions Recorded Confirmed Type Latanoprost [Xalatan 0.005%] 1 drop BOTH EYES HS@199908/11/17 08/30/21 History Nitroglycerin Sl Tabs [Nitrostat] 0.4 mg SUBLINGUAL Q5M PRN #30 tab 08/13/17 08/30/21 Rx Insulin Lispro [humaLOG Kwikpen] See Protocol SQ ACHS 09/25/18 08/30/21 History Multivitamins, Thera [Multivitamin 1 tab PO HS@199911/19/18 08/30/21 History (formulary)] Levothyroxine Sodium [Synthroid] 125 mcg PO DAILY@0800 08/02/19 08/30/21 History Gabapentin 800 mg PO BID@0800,1700 07/23/21 08/30/21 History predniSONE 5 mg PO DAILY@0800 07/23/21 08/30/21 History Acetaminophen Tab [Tylenol] 650 mg PO Q6H PRN 08/30/21 08/30/21 History Amiodarone HCl [Cordarone] 100 mg PO DAILY@0800 08/30/21 08/30/21 History Apixaban [Eliquis] 5 mg PO BID@0800,1700 08/30/21 08/30/21 History Artificial Tears-Hypromellose 2 drops BOTH EYES DAILY PRN 08/30/21 08/30/21 History [Artificial Tear Drops] Dicyclomine [Bentyl] 10 mg PO Q8H PRN 08/30/21 08/30/21 History Famotidine [Pepcid] 10 mg PO Q12H PRN 08/30/21 08/30/21 History Insulin Glargine,Hum.rec.anlog 46 units SQ DAILY@0800 08/30/21 08/30/21 History [Lantus Solostar Pen] Magnesium Oxide 400 mg PO BID@0800,1700 08/30/21 08/30/21 History Metoprolol Tartrate [Lopressor] 100 mg PO BID@0800,1700 08/30/21 08/30/21 History Omeprazole 20 mg PO DAILY@0800 08/30/21 08/30/21 History Oxybutynin Chloride [Oxybutynin 10 mg PO DAILY@0808/30/21 07/04/22 History Chloride ER] Tamsulosin [Flomax] 0.4 mg PO DAILY@79908/30/21 08/30/21 History methocarbamoL [Methocarbamol] 1,000 mg PO Q6H PRN 08/30/21 08/30/21 History Allergies Allergy/AdvReac Type Severity Reaction Status Date / Time adhesive Allergy Rash/Hives Verified 08/30/21 23:15 cephalexin [From Keflex] Allergy Rash/Hives Verified 08/30/21 23:15 grass pollen Allergy Unknown Verified 08/30/21 23:15 mold Allergy Unknown Verified 08/30/21 23:15 Sulfa (Sulfonamide Allergy Rash/Hives Verified 08/30/21 23:15 Antibiotics) newspaper ink Allergy Mild Unknown Uncoded 08/30/21 20:11 Surgical - Exam Vital Signs Temp Pulse Resp BP Pulse Ox 98.1 F 108 H 20 93/52 96 08/30/21 20:11 08/30/21 20:11 08/30/21 20:11 08/30/21 20:11 08/30/21 20:11 - General Patient is somnolent and unable to give any medical history. well developed, no distress - Eyes PERRL - ENT normal pinna - Neck no masses - Cardiovascular Rhythm: regular - Abdomen Mild epigastric tenderness Abdomen: soft Results - Labs 08/30/21 20:17 08/30/21 20:17 Abnormal Lab Results - Last 24 Hours (Table) 08/30/21 08/30/21 08/30/21 Range/Units 20:06 20:17 20:17 WBC 19.6 H (3.8-10.6) k/uL Hgb 11.1 L (11.4-16.0) gm/dL RDW 18.3 H (11.5-15.5) % Neutrophils # 16.3 H (1.3-7.7) k/uL PT 12.7 H (9.0-12.0) sec INR 1.2 H (<1.2) Sodium (137-145) mmol/L Chloride (98-107) mmol/L BUN (7-17) mg/dL Glucose (74-99) mg/dL POC Glucose (mg/dL) 160 H (70-110) mg/dL Calcium (8.4-10.2) mg/dL Troponin I (0.000-0.034) ng/mL Total Protein (6.3-8.2) g/dL Albumin (3.5-5.0) g/dL Lipase (23-300) U/L TSH (0.465-4.680) mIU/L Urine Appearance (Clear) Ur Specific [place] (1.001-1.035) Urine Protein (Negative) Urine Blood (Negative) Ur Leukocyte Esterase (Negative) Urine RBC (0-5) /hpf Urine WBC (0-5) /hpf Urine WBC Clumps (None) /hpf Urine Bacteria (None) /hpf Urine Mucus (None) /hpf 08/30/21 08/30/21 08/30/21 Range/Units 20:17 20:17 21:03 WBC (3.8-10.6) k/uL Hgb (11.4-16.0) gm/dL RDW (11.5-15.5) % Neutrophils # (1.3-7.7) k/uL PT (9.0-12.0) sec INR (<1.2) Sodium 131 L (137-145) mmol/L Chloride 97 L (98-107) mmol/L BUN 22 H (7-17) mg/dL Glucose 163 H (74-99) mg/dL POC Glucose (mg/dL) (70-110) mg/dL Calcium 8.2 L (8.4-10.2) mg/dL Troponin I 0.053 H* (0.000-0.034) ng/mL Total Protein 5.5 L (6.3-8.2) g/dL Albumin 2.6 L (3.5-5.0) g/dL Lipase 10 L (23-300) U/L TSH 7.140 H (0.465-4.680) mIU/L Urine Appearance (Clear) Ur Specific [place] (1.001-1.035) Urine Protein (Negative) Urine Blood (Negative) Ur Leukocyte Esterase (Negative) Urine RBC (0-5) /hpf Urine WBC (0-5) /hpf Urine WBC Clumps (None) /hpf Urine Bacteria (None) /hpf Urine Mucus (None) /hpf 08/30/21 Range/Units 23:18 WBC (3.8-10.6) k/uL Hgb (11.4-16.0) gm/dL RDW (11.5-15.5) % Neutrophils # (1.3-7.7) k/uL PT (9.0-12.0) sec INR (<1.2) Sodium (137-145) mmol/L Chloride (98-107) mmol/L BUN (7-17) mg/dL Glucose (74-99) mg/dL POC Glucose (mg/dL) (70-110) mg/dL Calcium (8.4-10.2) mg/dL Troponin I (0.000-0.034) ng/mL Total Protein (6.3-8.2) g/dL Albumin (3.5-5.0) g/dL Lipase (23-300) U/L TSH (0.465-4.680) mIU/L Urine Appearance Cloudy H (Clear) Ur Specific [place] 1.037 H (1.001-1.035) Urine Protein 1+ H (Negative) Urine Blood Small H (Negative) Ur Leukocyte Esterase Large H (Negative) Urine RBC 7 H (0-5) /hpf Urine WBC 122 H (0-5) /hpf Urine WBC Clumps Few H (None) /hpf Urine Bacteria Moderate H (None) /hpf Urine Mucus Few H (None) /hpf Microbiology - Last 24 Hours (Table) 08/30/21 23:18 Urine Culture - Preliminary Urine,Voided Diabetes panel 08/30/21 Range/Units 20:17 Sodium 131 L (137-145) mmol/L Potassium 3.7 (3.5-5.1) mmol/L Chloride 97 L (98-107) mmol/L Carbon Dioxide 29 (22-30) mmol/L BUN 22 H (7-17) mg/dL Creatinine 0.64 (0.52-1.04) mg/dL Glucose 163 H (74-99) mg/dL Calcium 8.2 L (8.4-10.2) mg/dL AST 21 (14-36) U/L ALT 15 (4-34) U/L Alkaline Phosphatase 85 (38-126) U/L Total Protein 5.5 L (6.3-8.2) g/dL Albumin 2.6 L (3.5-5.0) g/dL Thyroid panel 08/30/21 Range/Units 20:17 TSH 7.140 H (0.465-4.680) mIU/L Calcium panel 08/30/21 Range/Units 20:17 Calcium 8.2 L (8.4-10.2) mg/dL Albumin 2.6 L (3.5-5.0) g/dL Pituitary panel 08/30/21 Range/Units 20:17 Sodium 131 L (137-145) mmol/L Potassium 3.7 (3.5-5.1) mmol/L Chloride 97 L (98-107) mmol/L Carbon Dioxide 29 (22-30) mmol/L BUN 22 H (7-17) mg/dL Creatinine 0.64 (0.52-1.04) mg/dL Glucose 163 H (74-99) mg/dL Calcium 8.2 L (8.4-10.2) mg/dL TSH 7.140 H (0.465-4.680) mIU/L Adrenal panel 08/30/21 Range/Units 20:17 Sodium 131 L (137-145) mmol/L Potassium 3.7 (3.5-5.1) mmol/L Chloride 97 L (98-107) mmol/L Carbon Dioxide 29 (22-30) mmol/L BUN 22 H (7-17) mg/dL Creatinine 0.64 (0.52-1.04) mg/dL Glucose 163 H (74-99) mg/dL Calcium 8.2 L (8.4-10.2) mg/dL Total Bilirubin 0.8 (0.2-1.3) mg/dL AST 21 (14-36) U/L ALT 15 (4-34) U/L Alkaline Phosphatase 85 (38-126) U/L Total Protein 5.5 L (6.3-8.2) g/dL Albumin 2.6 L (3.5-5.0) g/dL - Imaging US - abdomen: report reviewed (Gallbladder was grossly thickened at 7 mm. There is evidence of cholelithiasis) Assessment and Plan Assessment: Probable acute cholecystitis. Patient is currently L Michelle. He HAS been held. She will be treated for with IV and a box currently.
[2021-08-31] MEDS ORDERED: ACETAMINOPHEN IV (For NPO) 1,000 MG in EMPTY BAG 1 BAG IVPB SCH (18:00)
[2021-08-31] MEDS ORDERED: LORazepam 0.5 MG TAB PO PRN (18:03)
[2021-08-31] MEDS ORDERED: ACETAMINOPHEN IV (For NPO) 1,000 MG in EMPTY BAG 1 BAG IVPB PRN (19:00)
[2021-08-31] MEDS: LATANOPROST 0.005% OPHTH DROPS 2.5 ML BTL BOTH EYES SCH (20:53)
[2021-08-31] MEDS: HYDROmorphone 0.5 MG/0.5 ML SYRINGE IVP PRN (22:19)
[2021-08-31] MEDS: DILTIAZEM 125 MG in SODIUM CHLORIDE 0.9% 100 ML IV SCH (23:41)
[2021-09-01] MEDS: PIPERACILLIN-TAZOBACTAM 3.375 GM in SODIUM CHLORIDE 0.9% 100 ML IVPB SCH ×3 (01:00→17:12)
[2021-09-01] MEDS: HYDROmorphone 0.5 MG/0.5 ML SYRINGE IVP PRN ×4 (02:54→21:48)
--- NOTE | 2021-09-01 08:33 | P.PN ---
Subjective Principal diagnosis: Back pain altered mental status This 80-year-old white female who is essentially admitted for weakness and alter ed mental status. She had significant workup yesterday which showed probable acute cholecystitis. Appreciate surgical consult. Last night because of her poor by mouth intake she has not been taking most her medications and her heart rate has been elevated. She has not underlying history of atrial fibrillation with rapid ventricular response and the patient has been started on Cardizem drip. Cardiology consult is now pending. No new voiding difficulties she is not ambulating at this time. Objective - Vital Signs Vital signs: Vital Signs Temp 97.8 F 09/01/21 04:00 Pulse 132 H 09/01/21 04:00 Resp 16 09/01/21 04:00 BP 121/58 09/01/21 04:00 Pulse Ox 97 09/01/21 04:00 FiO2 Intake & Output 08/31/21 09/01/21 09/01/21 18:59 06:59 18:59 Intake Total 1000 Output Total 375 Balance 625 Weight 142 kg Intake: Intake, IV Titration 1000 Amount Piperacillin-Tazobactam 3 100 .375 gm In Sodium Chloride 0.9% 100 ml @ 25 mls/hr IVPB Q8H [facility] Rx#: [id number] Sodium Chloride 0.9% 1, 900 000 ml @ 75 mls/hr IV . [id number] [facility] Rx#:[id number] Oral 0 Output: Urine 375 Other: Voiding Method Diaper External Catheter Incontinent - Constitutional General appearance: Present: morbidly obese - EENT Eyes: Absent: abnormal pupil - Neck Neck: Absent: lymphadenopathy - Respiratory Respiratory: bilateral: diminished - Cardiovascular Rhythm: irregularly irregular Heart sounds: normal: S1, S2 Abnormal Heart Sounds: Absent: S3 Gallop - Gastrointestinal General gastrointestinal: Present: soft. Absent: tenderness - Integumentary Integumentary: Absent: cellulitis - Musculoskeletal Musculoskeletal: Present: generalized weakness - Psychiatric Psychiatric: Absent: A&O x's 3 - Labs CBC & Chem 7: 08/30/21 20:17 08/30/21 20:17 Labs: Microbiology - Last 24 Hours (Table) 08/30/21 23:18 Urine Culture - Preliminary Urine,Voided Assessment and Plan (1) Cholecystitis Current Visit: Yes Status: Acute Code(s): K81.9 - CHOLECYSTITIS, UNSPECIFIED SNOMED Code(s): 77879180 (2) Ileus Current Visit: Yes Status: Acute Code(s): K56.7 - ILEUS, UNSPECIFIED SNOMED Code(s): 139570408 (3) UTI (urinary tract infection) Current Visit: Yes Status: Acute Code(s): N39.0 - URINARY TRACT INFECTION, SITE NOT SPECIFIED SNOMED Code(s): 81143389 (4) CAD (coronary artery disease) Current Visit: No Status: Acute Code(s): I25.10 - ATHSCL HEART DISEASE OF [place] CORONARY ARTERY W/O ANG PCTRS SNOMED Code(s): 20405719 (5) Congestive heart failure Current Visit: No Status: Acute Code(s): I50.9 - HEART FAILURE, UNSPECIFIED SNOMED Code(s): 24196374 (6) Diabetes Current Visit: No Status: Acute Code(s): E11.9 - TYPE 2 DIABETES MELLITUS WITHOUT COMPLICATIONS SNOMED Code(s): 93689585 (7) Elevated troponin Current Visit: No Status: Acute Code(s): R74.8 - ABNORMAL LEVELS OF OTHER SERUM ENZYMES SNOMED Code(s): 352032391 (8) History of total left hip arthroplasty Current Visit: No Status: Acute Code(s): Z96.642 - PRESENCE OF LEFT ARTIFICIAL HIP JOINT SNOMED Code(s): 156290815757 (9) Hypertension Current Visit: No Status: Acute Code(s): I10 - ESSENTIAL (PRIMARY) HYPERTENSION SNOMED Code(s): 73502235 (10) Hypothyroidism Current Visit: No Status: Acute Code(s): E03.9 - HYPOTHYROIDISM, UNSPECIFIED SNOMED Code(s): 42217549 Plan: Continue current regimen of antibiotic treatment. Cardiology consult is pending. Continue Cardizem drip for now. check CBC and CMP in a.m. Altered mental status could be multifactorial. Poor nutrition versus UTI versus cholecystitis. Discharge planning? We'll continue to follow
[2021-09-01 08:45] LABS: Anisocytosis Slight; Basophils # (A) 0.1 k/uL (0-0.2); Basophils % (A) 0 %; Eosinophils # (A) 0.3 k/uL (0-0.7); Eosinophils % (A) 2 %; HCT 33.4 % (34.0-46.0); HGB 10.2 gm/dL (11.4-16.0); Hypochromasia Marked; Lymphocytes % (A) 8 %; MCH 27.6 pg (25.0-35.0); MCHC 30.6 g/dL (31.0-37.0); MCV 90.2 fL (80.0-100.0); Monocytes # (A) 0.8 k/uL (0-1.0); Monocytes % (A) 6 %; Neutrophils # (A) 9.9 k/uL (1.3-7.7); Neutrophils % (A) 80 %; Platelet Count 167 k/uL (150-450); RBC 3.71 m/uL (3.80-5.40); RDW 17.9 % (11.5-15.5); WBC 12.3 k/uL (3.8-10.6)
[2021-09-01 09:13] LABS: ALT 37 U/L (4-34); AST 109 U/L (14-36); African American GFR (CKD) >90 (>60 ml/min/1.73 sqM); Albumin 2.6 g/dL (3.5-5.0); Alkaline Phosphatase 103 U/L (38-126); Anion Gap 7 mmol/L; Blood Urea Nitrogen 19 mg/dL (7-17); Calcium 8.3 mg/dL (8.4-10.2); Carbon Dioxide 29 mmol/L (22-30); Chloride 100 mmol/L (98-107); Glucose 115 mg/dL (74-99); Non-African American GFR(CKD) 86 (>60 ml/min/1.73 sqM); Sodium 136 mmol/L (137-145); Total Protein 5.7 g/dL (6.3-8.2)
[2021-09-01] MEDS: METOPROLOL TARTRATE 50 MG TAB PO SCH ×2 (09:33→17:13)
[2021-09-01] MEDS: OXYBUTYNIN 10 MG TAB.ER.24 PO SCH (09:33)
[2021-09-01] MEDS: PANTOPRAZOLE 40 MG/10 ML VIAL IVP SCH (09:34)
[2021-09-01] MEDS: predniSONE 5 MG TAB PO SCH (09:34)
[2021-09-01] MEDS: AMIODARONE 100 MG TAB PO SCH (09:34)
[2021-09-01] MEDS: GABAPENTIN 400 MG CAP PO SCH ×2 (09:55→17:14)
[2021-09-01] MEDS: DIGOXIN 125 MCG TAB PO SCH (10:06)
[2021-09-01] MEDS: FUROSEMIDE 10 MG/ML 2 ML VIAL IV SCH ×2 (11:19→21:46)
[2021-09-01] MEDS: ONDANSETRON 4 MG/2 ML VIAL IVP PRN ×3 (11:19→21:48)
[2021-09-01 12:41] VITALS: BMI 42.4
--- NOTE | 2021-09-01 12:53 | P.CRDCN ---
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 She follows in the office with Dr. George. We have been asked to see in consultation for elevated troponin. Patient is seen and examined at bedside, she is confused. Unable to give an accurate history. Patient apparently was brought in for medical [place] for an increased heart rate as well as increased confusion, and yelling out in pain and shortness of breath. Patient is currently being treated for cholecystitis, urinary tract infection and ileus. Patient was found to be in atrial fibrillation with heart rate in the low 100s.She was recently admitted from 07/28/19 with heart failure exacerbation fall, atrial fibrillation with RVR. DIAGNOSTICS EKG reveals atrial fibrillation, heart rate 106 Telemetry tracings indicate atrial fibrillation heart rate [address]. CT abdomen and pelvis revealed no pericardial effusion, heart is mildly enlarged, dilated gallbladder with some wall thickening as increased compared to old exam consistent with cholecystitis, large bowel ileus and constipation. Chest x-ray revealed cardiomegaly with pulmonary congestion and increased compar ed to last exam. 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 No acute intracranial abnormality Gallbladder revealed internal echoes as well as wall thickening Laboratory reviewed, WBC 12.3, hemoglobin 10.2, platelets 167, sodium 136, potassium 4.0, BUN 19, serum gram 0.6, troponin negative, WBC 3020 Current home cardiac medications include metoprolol titrate 100 mg twice a day, Eliquis 5 mg twice a day, amiodarone 200 mg daily, digoxin 125 mcg daiy Echo 07/27/2021 shows preserved EF 55-60% with RVSP of 50, mild mitral regurgitation, moderate to severe mitral annular calcification. REVIEW OF SYSTEMS At the time of my exam: Unable to complete an accurate review of systems due to patient's mental status PHYSICAL EXAMINATION Blood pressure 135/63, heart rate 114, temp 99.8, 97% on 3 L nasal cannula CONSTITUTIONAL: Confused HEENT: Head is normocephalic. Pupils are equal, round. Sclerae anicteric. Mucous membranes of the mouth are moist. No JVD. CHEST EXAMINATION: Lungs mild crackes in the bases to auscultation. No chest wall tenderness is noted on palpation or with deep breathing. HEART EXAMINATION: Irregular rate and rhythm. S1, S2 heard. Systolic murmur at apex. ABDOMEN: Soft, nontender. Positive bowel sounds. EXTREMITIES: 2+ peripheral pulses, 3+ bilateral lower extremity edema and no calf tenderness. 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 PLAN Continue outpatient Digoxin, metoprolol and amiodarone IV lasix 20mg BID for 24 hours Monitor I/Os, daily weights renal function and electrolytes Wean off cardizem drip Further recommendations based on clinical course Nurse practitioner note has been reviewed by physician. Signing provider agrees with the documented findings, assessment, and plan of care. Past Medical History Past Medical History: Atrial Fibrillation, Coronary Artery Disease (CAD), Cancer, Heart Failure, Diabetes Mellitus, Eye Disorder, GERD/Reflux, Hyperlipidemia, Hypertension, Musculoskeletal Disorder, Neurologic Disorder, Pneumonia, Renal Disease, Rheumatoid Arthritis (RA), Skin Disorder, Thyroid Disorder, Vascular Disorder Additional Past Medical History / Comment(s): IDDM type II, chronic Afib, pulmonary htn, mediastinal lymphodenopathy, past pleurisy, neurologic sjogren's, psoriatic arthritis, chronic pain, balance issues/FALLS, melanoma L arm with removal, UTIs, UTI with sepsis, urinary retention, episodes of acute renal failure/renal cysts, gout, bilateral elbow bursitis/mrsa, gastric and colon polyps, diverticular disease, mouth/throat ulcers, vasculitis bilateral arms, hypothyroid, past cellulitis R breast, dental issues. History of Any Multi-Drug Resistant Organisms: MRSA Date of last positivie culture/infection: 02/27/14 MDRO Source:: Sputum Past Surgical History: Back Surgery, Breast Surgery, Heart Catheterization, Joint Replacement, Orthopedic Surgery Additional Past Surgical History / Comment(s): Bilateral cataracts with lens implants/eye surgeries, arthroscopies to lt wrist/gualberto knees/ gualberto ankles/ gualberto hips, lt hip replacment and redone, L/R shoulder sxs, rt breast bx-benign, egd/colonoscopy, skin cancer removal L arm, salivary gland biopsy, ERIK/cardioversion, Past Anesthesia/Blood Transfusion Reactions: Previous Problems w/ Anesthesia Additional Past Anesthesia/Blood Transfusion Reaction / Comment(s): Pt has been told not to have anesthesia metabolized by the kidneys and has neurologic Sjogren's with post anesthesia paralysis. Smoking Status: Former smoker - Past Family History Mother Family Medical History: CVA/TIA Additional Family Medical History / Comment(s): RUPTURED BOWEL Father Family Medical History: Cancer, Pneumonia Additional Family Medical History / Comment(s): ASPIRATIVE PNA Sister(s) Additional Family Medical History / Comment(s): at age 34 with lupus Medications and Allergies Home Medications Medication Instructions Recorded Confirmed Type Latanoprost [Xalatan 0.005%] 1 drop BOTH EYES HS@199908/11/17 08/30/21 History Nitroglycerin Sl Tabs [Nitrostat] 0.4 mg SUBLINGUAL Q5M PRN #30 tab 08/13/17 08/30/21 Rx Insulin Lispro [humaLOG Kwikpen] See Protocol SQ ACHS 09/25/18 08/30/21 History Multivitamins, Thera [Multivitamin 1 tab PO HS@199911/19/18 08/30/21 History (formulary)] Levothyroxine Sodium [Synthroid] 125 mcg PO DAILY@0800 08/02/19 08/30/21 History Gabapentin 800 mg PO BID@0800,1700 07/23/21 08/30/21 History predniSONE 5 mg PO DAILY@0800 07/23/21 08/30/21 History Acetaminophen Tab [Tylenol] 650 mg PO Q6H PRN 08/30/21 08/30/21 History Amiodarone HCl [Cordarone] 100 mg PO DAILY@0800 08/30/21 08/30/21 History Apixaban [Eliquis] 5 mg PO BID@0800,1700 08/30/21 08/30/21 History Artificial Tears-Hypromellose 2 drops BOTH EYES DAILY PRN 08/30/21 08/30/21 History [Artificial Tear Drops] Dicyclomine [Bentyl] 10 mg PO Q8H PRN 08/30/21 08/30/21 History Famotidine [Pepcid] 10 mg PO Q12H PRN 08/30/21 08/30/21 History Insulin Glargine,Hum.rec.anlog 46 units SQ DAILY@0800 08/30/21 08/30/21 History [Lantus Solostar Pen] Magnesium Oxide 400 mg PO BID@0800,1700 08/30/21 08/30/21 History Metoprolol Tartrate [Lopressor] 100 mg PO BID@0800,1700 08/30/21 08/30/21 History Omeprazole 20 mg PO DAILY@0800 08/30/21 08/30/21 History Oxybutynin Chloride [Oxybutynin 10 mg PO DAILY@0800 08/30/21 08/30/21 History Chloride ER] Tamsulosin [Flomax] 0.4 mg PO DAILY@0800 08/30/21 08/30/21 History methocarbamoL [Methocarbamol] 1,000 mg PO Q6H PRN 08/30/21 08/30/21 History Allergies Allergy/AdvReac Type Severity Reaction Status Date / Time adhesive Allergy Rash/Hives Verified 08/30/21 23:15 cephalexin [From Keflex] Allergy Rash/Hives Verified 08/30/21 23:15 grass pollen Allergy Unknown Verified 08/30/21 23:15 mold Allergy Unknown Verified 08/30/21 23:15 Sulfa (Sulfonamide Allergy Rash/Hives Verified 08/30/21 23:15 Antibiotics) newspaper ink Allergy Mild Unknown Uncoded 08/30/21 20:11 Physical Exam Vitals: Vital Signs Temp Pulse Pulse Resp BP BP Pulse Ox 09/01/21 04:00 97.8 F 132 H 16 121/58 97 09/01/21 00:00 97.6 F 124 H 18 135/62 100 08/31/21 20:00 97.8 F 58 L 20 147/69 100 08/31/21 16:44 96.7 F L 99 22 127/69 98 08/31/21 14:30 101 H 16 08/31/21 14:15 100.0 F H 101 H 16 128/72 97 08/31/21 13:34 100 22 96/75 100 08/31/21 12:32 101 H 18 101/50 99 08/31/21 09:30 105 H 22 111/53 97 08/31/21 08:27 112 H 22 111/53 94 L 08/31/21 07:30 124 H 22 109/71 95 Intake and Output 08/31/21 09/01/21 09/01/21 22:59 06:59 14:59 Intake Total 0 1000 Output Total 375 Balance 0 625 Intake: Intake, IV Titration 1000 Amount Piperacillin-Tazobactam 3 100 .375 gm In Sodium Chloride 0.9% 100 ml @ 25 mls/hr IVPB Q8H [facility] Rx#: [id number] Sodium Chloride 0.9% 1, 900 000 ml @ 75 mls/hr IV . [id number] [facility] Rx#:[id number] Oral 0 Output: Urine 375 Other: Voiding Method External Catheter External Catheter Results 09/01/21 08:06 09/01/21 08:06 Current Medications Generic Name Dose Route Start Last Admin Trade Name Freq PRN Reason Stop Dose Admin Acetaminophen 650 mg 08/31/21 16:16 Acetaminophen Tab 325 Mg Tab PO Q6HR PRN Fever and/ or Pain Amiodarone HCl 100 mg 08/31/21 08:00 08/31/21 08:59 Amiodarone 100 Mg Tab PO 100 mg DAILY@0800 [facility] Administration Digoxin 125 mcg 08/31/21 09:00 08/31/21 08:56 Digoxin 125 Mcg Tab PO 125 mcg DAILY [facility] Administration Docusate Sodium 100 mg 08/31/21 09:00 08/31/21 20:39 Docusate 100 Mg Cap PO Not Given BID [facility] Gabapentin 800 mg 08/31/21 08:00 08/31/21 17:53 Gabapentin 400 Mg Cap PO Not Given BID@0800,1700 [facility] Hydromorphone HCl 0.5 mg 08/31/21 10:10 09/01/21 02:54 Hydromorphone 0.5 Mg/0.5 Ml Syringe IVP 0.5 mg Q4HR PRN Administration Pain Piperacillin Sod/Tazobactam 100 mls @ 25 mls/hr 08/31/21 01:00 09/01/21 01:00 Sod 3.375 gm/ Sodium Chloride IVPB 25 mls/hr Q8H [facility] Administration Protocol Sodium Chloride 1,000 mls @ 75 mls/hr 08/31/21 09:00 08/31/21 22:24 Saline 0.9% IV Not Given .[id number] [facility] Acetaminophen 1,000 mg/ IV 100 mls @ 400 mls/hr 08/31/21 19:00 Solution IVPB 09/01/21 19:01 Q6H PRN Fever Diltiazem HCl 125 mg/ Sodium 125 mls @ 10 mls/hr 08/31/21 23:30 08/31/21 23:41 Chloride IV 10 mg/hr .[id number] [facility] 10 mls/hr Administration 10 MG/HR Latanoprost 1 drops 08/31/21 20:00 08/31/21 20:53 Latanoprost 0.005% Ophth Drops 2.5 Ml Btl BOTH EYES 1 drops HS@2000 [facility] Administration Levothyroxine Sodium 125 mcg 08/31/21 08:00 08/31/21 08:59 Levothyroxine 125 Mcg Tab PO 125 mcg DAILY@0800 [facility] Administration Lorazepam 0.5 mg 08/31/21 18:03 Lorazepam 0.5 Mg Tab PO Q6HR PRN Anxiety Metoprolol Tartrate 100 mg 08/31/21 08:00 08/31/21 17:53 Metoprolol Tartrate 50 Mg Tab PO Not Given BID@0800,1700 [facility] Naloxone HCl 0.2 mg 08/31/21 01:30 Naloxone 0.4 Mg/Ml 1 Ml Vial IV Q2M PRN Opioid Reversal Oxybutynin Chloride 10 mg 08/31/21 08:00 08/31/21 08:58 Oxybutynin 10 Mg Tab.Er.24 PO 10 mg DAILY@0800 [facility] Administration Pantoprazole Sodium 40 mg 08/31/21 09:00 08/31/21 09:02 Pantoprazole 40 Mg/10 Ml Vial IVP 40 mg DAILY [facility] Administration Polyethylene Glycol 17 gm 08/31/21 09:00 08/31/21 08:12 Polyethylene Glycol 3350 17 Gm Powd.Pack PO Not Given DAILY [facility] Prednisone 5 mg 08/31/21 08:00 08/31/21 08:56 Prednisone 5 Mg Tab PO 5 mg DAILY@0800 [facility] Administration Tamsulosin HCl 0.4 mg 08/31/21 08:00 08/31/21 08:57 Tamsulosin 0.4 Mg Cap.Er.24h PO 0.4 mg DAILY@0800 [facility] Administration Intake and Output 08/31/21 09/01/21 09/01/21 22:59 06:59 14:59 Intake Total 0 1000 Output Total 375 Balance 0 625 Intake: Intake, IV Titration 1000 Amount Piperacillin-Tazobactam 3 100 .375 gm In Sodium Chloride 0.9% 100 ml @ 25 mls/hr IVPB Q8H [facility] Rx#: [id number] Sodium Chloride 0.9% 1, 900 000 ml @ 75 mls/hr IV . [id number] [facility] Rx#:[id number] Oral 0 Output: Urine 375 Other: Voiding Method External Catheter External Catheter 08/30/21 20:17 08/30/21 20:17
--- NOTE | 2021-09-01 12:56 | P.PN ---
Subjective Progress Note Date: 09/01/21 CHIEF COMPLAINT: A. fib/palpitations HISTORY OF PRESENT ILLNESS: Surgical service following in regards to cholecystitis. Patient's is confused. At times she does report abdominal pain. When examined with Dr. sy patient had reported no abdominal pain. No nausea or vomiting. She did have a temp of 100 yesterday. She is currently afebrile. She has been tachycardic with atrial fibrillation. Ultrasound had shown gallbladder wall thickening. Her Eliquis is on hold. WBC is down from 19.6-12.3 hemoglobin 10.2 platelets 167 sodium 136 potassium is 4 creatinine 0.63 AST 109 and ALT 37. LFTs have gone up. Total bili 1.0 Patient seen and examined with Dr. sy PHYSICAL EXAM: VITAL SIGNS: Reviewed. GENERAL: Well-developed in no acute distress. HEENT: No sclera icterus. Extraocular movements grossly intact. Moist buccal mucosa. Head is atraumatic, normocephalic. ABDOMEN: Soft. Nondistended. Nontender when examined with Dr. sy NEUROLOGIC: Confused ASSESSMENT: 1. Acute on chronic cholecystitis PLAN: -Continue supportive care -Recommend laparoscopic cholecystectomy when medically stable -Continue antibiotics -Add low-fat diet -IV Lasix per cardiology for CHF exacerbation Physician Staff Development Educator note has been reviewed by physician. Signing provider agrees with the documented findings, assessment, and plan of care. Objective - Vital Signs Vital signs: Vital Signs Temp 98.4 F 09/01/21 11:29 Pulse 72 09/01/21 11:29 Resp 13 09/01/21 11:29 BP 147/70 09/01/21 11:29 Pulse Ox 97 09/01/21 11:29 FiO2 Intake & Output 08/31/21 09/01/21 09/01/21 18:59 06:59 18:59 Intake Total 1000 349.916 Output Total 375 Balance 625 349.916 Weight 142 kg 142 kg Intake: Intake, IV Titration 1000 109.916 Amount Diltiazem 125 mg In 109.916 Sodium Chloride 0.9% 100 ml @ 10 MG/HR 10 mls/hr IV .[id number] [facility] Rx#: [id number] Piperacillin-Tazobactam 3 100 .375 gm In Sodium Chloride 0.9% 100 ml @ 25 mls/hr IVPB Q8H [facility] Rx#: [id number] Sodium Chloride 0.9% 1, 900 000 ml @ 75 mls/hr IV . [id number] [facility] Rx#:[id number] Oral 0 240 Output: Urine 375 Other: Voiding Method Diaper External Catheter Incontinent Incontinent External Catheter - Labs CBC & Chem 7: 09/01/21 08:06 09/01/21 08:06 Labs: Abnormal Lab Results - Last 24 Hours (Table) 09/01/21 09/01/21 Range/Units 08:06 08:06 WBC 12.3 H (3.8-10.6) k/uL RBC 3.71 L (3.80-5.40) m/uL Hgb 10.2 L (11.4-16.0) gm/dL Hct 33.4 L (34.0-46.0) % MCHC 30.6 L (31.0-37.0) g/dL RDW 17.9 H (11.5-15.5) % Neutrophils # 9.9 H (1.3-7.7) k/uL Sodium 136 L (137-145) mmol/L BUN 19 H (7-17) mg/dL Glucose 115 H (74-99) mg/dL Calcium 8.3 L (8.4-10.2) mg/dL AST 109 H (14-36) U/L ALT 37 H (4-34) U/L Total Protein 5.7 L (6.3-8.2) g/dL Albumin 2.6 L (3.5-5.0) g/dL Microbiology - Last 24 Hours (Table) 08/30/21 23:18 Urine Culture - Preliminary Urine,Voided Gram Neg Bacilli
[2021-09-01] MEDS: DILTIAZEM 125 MG in SODIUM CHLORIDE 0.9% 100 ML IV SCH (14:21)
[2021-09-01] MEDS: DOCUSATE 100 MG CAP PO SCH ×2 (14:22→21:46)
[2021-09-01] MEDS: LEVOTHYROXINE 125 MCG TAB PO SCH (14:24)
[2021-09-01] MEDS: TAMSULOSIN 0.4 MG CAP.ER.24H PO SCH (14:30)
[2021-09-01] MEDS: SODIUM CHLORIDE 0.9% 1,000 ML IV SCH (14:31)
[2021-09-01] MEDS: polyethylene glycoL 3350 17 GM POWD.PACK PO SCH (14:31)
[2021-09-01 23:39] LABS: Glucose,Whole Blood 160 mg/dL (70-110)
[2021-09-01] MEDS: LATANOPROST 0.005% OPHTH DROPS 2.5 ML BTL BOTH EYES SCH (23:41)
[2021-09-02] MEDS: PIPERACILLIN-TAZOBACTAM 3.375 GM in SODIUM CHLORIDE 0.9% 100 ML IVPB SCH ×3 (01:12→15:47)
[2021-09-02] MEDS: HYDROmorphone 0.5 MG/0.5 ML SYRINGE IVP PRN ×2 (01:19→05:49)
[2021-09-02 05:57] LABS: Glucose,Whole Blood 152 mg/dL (70-110)
[2021-09-02] MEDS: SODIUM CHLORIDE 0.9% 1,000 ML IV SCH ×2 (06:44→11:11)
[2021-09-02] MEDS: GABAPENTIN 400 MG CAP PO SCH ×2 (08:21→15:46)
[2021-09-02] MEDS: OXYBUTYNIN 10 MG TAB.ER.24 PO SCH (08:21)
[2021-09-02] MEDS: METOPROLOL TARTRATE 50 MG TAB PO SCH ×2 (08:21→15:46)
[2021-09-02] MEDS: predniSONE 5 MG TAB PO SCH (08:21)
[2021-09-02] MEDS: LEVOTHYROXINE 125 MCG TAB PO SCH (08:21)
[2021-09-02] MEDS: DOCUSATE 100 MG CAP PO SCH ×2 (08:21→22:50)
[2021-09-02] MEDS: TAMSULOSIN 0.4 MG CAP.ER.24H PO SCH (08:21)
[2021-09-02] MEDS: DIGOXIN 125 MCG TAB PO SCH (08:21)
[2021-09-02] MEDS: AMIODARONE 100 MG TAB PO SCH (08:21)
[2021-09-02] MEDS: polyethylene glycoL 3350 17 GM POWD.PACK PO SCH (08:22)
[2021-09-02] MEDS: FUROSEMIDE 10 MG/ML 2 ML VIAL IV SCH ×2 (08:25→22:50)
[2021-09-02] MEDS: PANTOPRAZOLE 40 MG/10 ML VIAL IVP SCH (08:26)
--- NOTE | 2021-09-02 08:36 | P.PN ---
Subjective Principal diagnosis: Back pain altered mental status This is an 81-year-old white female who is essentially admitted for UTI with sep sis element acute on chronic cholecystitis with element of heart failure and atrial fibrillation with rapid ventricular response. Appreciate cardiology input. She still seems a little disoriented. Element of discharge planning needs to be addressed. Objective - Vital Signs Vital signs: Vital Signs Temp 97.7 F 09/02/21 08:00 Pulse 160 H 09/02/21 08:00 Resp 16 09/02/21 08:00 BP 131/64 09/02/21 08:00 Pulse Ox 98 09/02/21 08:00 FiO2 Intake & Output 09/01/21 09/02/21 09/02/21 18:59 06:59 18:59 Intake Total 349.916 Output Total 800 650 Balance -450.084 -650 Weight 142 kg Intake: Intake, IV Titration 109.916 Amount Diltiazem 125 mg In 109.916 Sodium Chloride 0.9% 100 ml @ 10 MG/HR 10 mls/hr IV .[id number] [facility] Rx#: [id number] Oral 240 Output: Urine 800 650 Other: Voiding Method External Catheter Incontinent External Catheter - Constitutional General appearance: Present: morbidly obese - EENT Eyes: Absent: abnormal pupil - Neck Neck: Absent: lymphadenopathy - Respiratory Respiratory: bilateral: diminished - Cardiovascular Rhythm: irregularly irregular Abnormal Heart Sounds: Absent: S3 Gallop - Gastrointestinal General gastrointestinal: Present: soft. Absent: tenderness - Integumentary Integumentary: Absent: cellulitis - Psychiatric Psychiatric: Absent: A&O x's 3, appropriate affect, intact judgment & insight - Labs CBC & Chem 7: 09/01/21 08:06 09/01/21 08:06 Labs: Abnormal Lab Results - Last 24 Hours (Table) 09/01/21 09/01/21 09/01/21 Range/Units 08:06 08:06 23:37 WBC 12.3 H (3.8-10.6) k/uL RBC 3.71 L (3.80-5.40) m/uL Hgb 10.2 L (11.4-16.0) gm/dL Hct 33.4 L (34.0-46.0) % MCHC 30.6 L (31.0-37.0) g/dL RDW 17.9 H (11.5-15.5) % Neutrophils # 9.9 H (1.3-7.7) k/uL Sodium 136 L (137-145) mmol/L BUN 19 H (7-17) mg/dL Glucose 115 H (74-99) mg/dL POC Glucose (mg/dL) 160 H (70-110) mg/dL Calcium 8.3 L (8.4-10.2) mg/dL AST 109 H (14-36) U/L ALT 37 H (4-34) U/L Total Protein 5.7 L (6.3-8.2) g/dL Albumin 2.6 L (3.5-5.0) g/dL 09/02/21 Range/Units 05:56 WBC (3.8-10.6) k/uL RBC (3.80-5.40) m/uL Hgb (11.4-16.0) gm/dL Hct (34.0-46.0) % MCHC (31.0-37.0) g/dL RDW (11.5-15.5) % Neutrophils # (1.3-7.7) k/uL Sodium (137-145) mmol/L BUN (7-17) mg/dL Glucose (74-99) mg/dL POC Glucose (mg/dL) 152 H (70-110) mg/dL Calcium (8.4-10.2) mg/dL AST (14-36) U/L ALT (4-34) U/L Total Protein (6.3-8.2) g/dL Albumin (3.5-5.0) g/dL Microbiology - Last 24 Hours (Table) 08/30/21 23:18 Urine Culture - Preliminary Urine,Voided Gram Neg Bacilli Assessment and Plan (1) Cholecystitis Current Visit: Yes Status: Acute Code(s): K81.9 - CHOLECYSTITIS, UNSPECIFIED SNOMED Code(s): 88887107 (2) Ileus Current Visit: Yes Status: Acute Code(s): K56.7 - ILEUS, UNSPECIFIED SNOMED Code(s): 097317199 (3) UTI (urinary tract infection) Current Visit: Yes Status: Acute Code(s): N39.0 - URINARY TRACT INFECTION, SITE NOT SPECIFIED SNOMED Code(s): 58607446 (4) CAD (coronary artery disease) Current Visit: No Status: Acute Code(s): I25.10 - ATHSCL HEART DISEASE OF [place] CORONARY ARTERY W/O ANG PCTRS SNOMED Code(s): 99315661 (5) Congestive heart failure Current Visit: No Status: Acute Code(s): I50.9 - HEART FAILURE, UNSPECIFIED SNOMED Code(s): 88359797 (6) Diabetes Current Visit: No Status: Acute Code(s): E11.9 - TYPE 2 DIABETES MELLITUS WITHOUT COMPLICATIONS SNOMED Code(s): 38931361 (7) Elevated troponin Current Visit: No Status: Acute Code(s): R74.8 - ABNORMAL LEVELS OF OTHER SERUM ENZYMES SNOMED Code(s): 842564534 (8) History of total left hip arthroplasty Current Visit: No Status: Acute Code(s): Z96.642 - PRESENCE OF LEFT ARTIFICIAL HIP JOINT SNOMED Code(s): 132044799652 (9) Hypertension Current Visit: No Status: Acute Code(s): I10 - ESSENTIAL (PRIMARY) HYPERTENSION SNOMED Code(s): 54286609 (10) Hypothyroidism Current Visit: No Status: Acute Code(s): E03.9 - HYPOTHYROIDISM, UNSPECIFIED SNOMED Code(s): 46953021 Plan: Her mental state still does not seem appropriately like it is resolving. Multifactorial causes. 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 Discharge planning element. Heart failure with A. fib and RVR. White blood cell count is improved. Check CBC and CMP in a.m.
[2021-09-02 09:22] LABS: ALT 39 U/L (4-34); AST 67 U/L (14-36); African American GFR (CKD) >90 (>60 ml/min/1.73 sqM); Albumin 2.8 g/dL (3.5-5.0); Alkaline Phosphatase 117 U/L (38-126); Anion Gap 8 mmol/L; Blood Urea Nitrogen 17 mg/dL (7-17); Calcium 8.4 mg/dL (8.4-10.2); Carbon Dioxide 30 mmol/L (22-30); Chloride 98 mmol/L (98-107); Glucose 175 mg/dL (74-99); Non-African American GFR(CKD) 84 (>60 ml/min/1.73 sqM); Potassium 4.2 mmol/L (3.5-5.1); Sodium 136 mmol/L (137-145); Total Bilirubin 0.9 mg/dL (0.2-1.3)
[2021-09-02 09:42] LABS: Anisocytosis Slight; HCT 33.5 % (34.0-46.0); HGB 10.8 gm/dL (11.4-16.0); Hypochromasia Marked; MCH 29.3 pg (25.0-35.0); MCHC 32.2 g/dL (31.0-37.0); MCV 90.9 fL (80.0-100.0); Mean Platelet Volume 7.9; Platelet Count 165 k/uL (150-450); RBC 3.69 m/uL (3.80-5.40); RDW 17.6 % (11.5-15.5); WBC 12.3 k/uL (3.8-10.6)
[2021-09-02 11:49] LABS: Glucose,Whole Blood 209 mg/dL (70-110)
--- NOTE | 2021-09-02 13:13 | CDI ---
Documentation Clarification Form Date: 09/02/2021 12:48:26 PM From: Annia LiRecinosEUSEBIA pearce, CCDS Admit Date: 08/31/2021 01:30:00 AM Patient Name: Rosalva Lr Visit Number: [id number] Discharge Date: ATTENTION: The Clinical Documentation Specialists (CDI) and [facility] Coding Staff appreciate your assistance in clarifying documentation. Please respond to the clarification below the line at the bottom and electronically sign. The CDI & [facility] Coding staff will review the response and follow-up if needed. Please note: Queries are made part of the Legal Health Record. If you have any questions, please contact the author of this message via ITS. Dr. Nicholas Hart: Per the 09/02 Attending Progress Note: Admitted for UTI with Sepsis, element Acute on Chronic Cholecystitis with element of Heart Failure & Atrial Fibrillation with RVR. She still seems a little disoriented. 09/01 Cardiology Consult: Patient brought in from (SNF) for an increased heart rate as well as increased confusion and yelling out in pain and SOB. IMP: Altered mental status. Additional clarification regarding the patient's altered mental status and confusion is requested. History/Risk Factors per the 08/31 H/P: Atrial Fibrillation, CAD, DM, Hyperlipidemia, Hypertension, Osteoarthritis, Pneumonia, Rheumatoid Arthritis, Morbid Obesity (BMI 42.5), Sjogren's Disease, MRSA sputum infection 02/2014. Former smoker. Clinical Indicators: Presented to the ED on 08/30 with Arrhythmia/Palpitations from SNF with Atrial Fibrillation RVR. Poor appetite with very poor oral intake. Admit with Abdominal pain, Ileus, UTI, Cholecystitis, Leukocytosis, Atrial Fibrillation w/RVR 08/30 VS: T 98.1, P 108, R 20, BP 93/52, PO 96 2Lnc, BMI: 42.5 08/30 LAB: WBC 19.6, Hgb 11.1, Neutrophils 16.3; PT 12.7, INR 1.2; Na 131, Chl 97, BUN 22, Glucose 163, Calcium 8.2, Troponin 0.053, Total Protein 5.5, Albumin 2.6, Lipase 10, TSH 7.140. 08/30 UA: Cloudy, Specific [place] 1.037, 1+ Protein, Small Blood, Large Esterase, RBC 7, WBC 122, Moderate Bacteria 08/30 Urine culture: (Preliminary): Enterobacter aerogenes 09/01 Blood culture: (Preliminary): neg after 24 hours. 08/30 CXR: Cardiomegaly and pulmonary congestion increased slightly compared to old exam. I suspect mild heart failure. Treatment 08/30, 08/31: Telemetry, Hypoglycemia protocol, Insulin sliding scale, O2 2Lnc, IV Na Chl 1,000 mls @ 130 mls/hr q7H, po Neurontinn 800 mg x1, IV Fentanyl 50 mcg x1, IV Zosyn 100 mls @ 25 mls/hr q8H, IV Ativan 0.5 mg x1. Please clarify the type of encephalopathy, if known: [ ] Metabolic Encephalopathy [ x ] Septic Encephalopathy [ ] Other, please specify: [ ] Unable to determine (Template Last Revised: April 2020) MTDD
--- NOTE | 2021-09-02 13:31 | P.PN ---
Subjective Progress Note Date: 09/02/21 CHIEF COMPLAINT: A. fib/palpitations HISTORY OF PRESENT ILLNESS: Surgical service following in regards to cholecystitis. Patient is confused. When asked if she has abdominal pain she points to the left side the abdomen. She denies any nausea or vomiting. Cardiology following in regards to her atrial fibrillation. Cardiology has placed patient on IV Lasix for CHF. Patient has been in atrial fibrillation with RVR. Afebrile. Tachycardic. WBC 12.3 HCP 10.8 platelets 165 Patient seen and examined with Dr. sy PHYSICAL EXAM: VITAL SIGNS: Reviewed. GENERAL: Well-developed in no acute distress. HEENT: No sclera icterus. Extraocular movements grossly intact. Moist buccal mucosa. Head is atraumatic, normocephalic. ABDOMEN: Soft. Nondistended. Tenderness to palpation right upper quadrant NEUROLOGIC: Confused ASSESSMENT: 1. Acute on chronic cholecystitis PLAN: -Continue supportive care -Recommend laparoscopic cholecystectomy when medically stable -Continue antibiotics -low-fat diet Physician Transactional Attorney note has been reviewed by physician. Signing provider agrees with the documented findings, assessment, and plan of care. Objective - Vital Signs Vital signs: Vital Signs Temp 97.3 F L 09/02/21 12:00 Pulse 80 09/02/21 12:00 Resp 16 09/02/21 12:00 BP 125/57 09/02/21 12:00 Pulse Ox 98 09/02/21 12:00 FiO2 Intake & Output 09/01/21 09/02/21 09/02/21 18:59 06:59 18:59 Intake Total 349.916 148 Output Total 800 650 Balance -450.084 -650 148 Weight 142 kg 142 kg Intake: IV 30 Invasive Line 1 10 Invasive Line 2 20 Intake, IV Titration 109.916 Amount Diltiazem 125 mg In 109.916 Sodium Chloride 0.9% 100 ml @ 10 MG/HR 10 mls/hr IV .[id number] [facility] Rx#: [id number] Oral 240 118 Output: Urine 800 650 Other: Voiding Method External Catheter Incontinent Diaper External Catheter Incontinent - Labs CBC & Chem 7: 09/02/21 08:26 09/02/21 08:26 Labs: Abnormal Lab Results - Last 24 Hours (Table) 09/01/21 09/02/21 09/02/21 Range/Units 23:37 05:56 08:26 WBC 12.3 H (3.8-10.6) k/uL RBC 3.69 L (3.80-5.40) m/uL Hgb 10.8 L (11.4-16.0) gm/dL Hct 33.5 L (34.0-46.0) % RDW 17.6 H (11.5-15.5) % Sodium (137-145) mmol/L Glucose (74-99) mg/dL POC Glucose (mg/dL) 160 H 152 H (70-110) mg/dL AST (14-36) U/L ALT (4-34) U/L Total Protein (6.3-8.2) g/dL Albumin (3.5-5.0) g/dL 09/02/21 09/02/21 Range/Units 08:26 11:47 WBC (3.8-10.6) k/uL RBC (3.80-5.40) m/uL Hgb (11.4-16.0) gm/dL Hct (34.0-46.0) % RDW (11.5-15.5) % Sodium 136 L (137-145) mmol/L Glucose 175 H (74-99) mg/dL POC Glucose (mg/dL) 209 H (70-110) mg/dL AST 67 H (14-36) U/L ALT 39 H (4-34) U/L Total Protein 6.0 L (6.3-8.2) g/dL Albumin 2.8 L (3.5-5.0) g/dL Microbiology - Last 24 Hours (Table) 09/01/21 09:44 Blood Culture - Preliminary Blood No Growth after 24 hours 08/30/21 23:18 Urine Culture - Preliminary Urine,Voided Enterobacter aerogenes
--- NOTE | 2021-09-02 13:55 | P.PN ---
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 She follows in the office with Dr. George. We have been asked to see in consultation for elevated troponin. Patient is seen and examined at bedside, she is confused. Unable to give an accurate history. Patient apparently was brought in for medical [place] for an increased heart rate as well as increased confusion, and yelling out in pain and shortness of breath. Patient is currently being treated for cholecystitis, urinary tract infection and ileus. Patient was found to be in atrial fibrillation with heart rate in the low 100s.She was recently admitted from 07/28/19 with heart failure exacerbation, fall, and atrial fibrillation with RVR. DIAGNOSTICS EKG reveals atrial fibrillation, heart rate 106 CT abdomen and pelvis revealed no pericardial effusion, heart is mildly enlarged, dilated gallbladder with some wall thickening as increased compared to old exam consistent with cholecystitis, large bowel ileus and constipation. Chest x-ray revealed cardiomegaly with pulmonary congestion and increased compared to last exam. 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 No acute intracranial abnormality Gallbladder revealed internal echoes as well as wall thickening Laboratory reviewed, WBC 12.3, hemoglobin 10.2, platelets 167, sodium 136, potassium 4.0, BUN 19, serum gram 0.6, troponin negative, WBC 3020 Echo 07/27/2021 shows preserved EF 55-60% with RVSP of 50, mild mitral regurgitation, moderate to severe mitral annular calcification. 09/02/2021 patient seen and examined at bedside, she is lethargic. Oriented 1. She is unable to explain her symptoms. She is lethargic. Patient is incontinent, I/Os reveal 1.4L urine output over the past 24 hours. No change in weight. She is continued on IV Lasix 20mg BID her Edema has improved. Her heart rates are relatively controlled today with some improvement in HR 80s-115. She is currently maintained on amiodarone 100 mg daily, digoxin 125mcg daily, metoprolol titrate 100 mg twice a day Labs: blood culture negative. Urine culture positive for Enterobacter aerogenes , WBC 12.3, hemoglobin 10.8, platelets 165, sodium 136, potassium 4.2, BUN 17, serum creatinine 0.6 PHYSICAL EXAMINATION Vitals reviewed CONSTITUTIONAL: Confused HEENT: Head is normocephalic. No JVD. CHEST EXAMINATION: Lungs mild crackles in the bases to auscultation. No chest wall tenderness is noted on palpation or with deep breathing. HEART EXAMINATION: Irregular rate and rhythm. S1, S2 heard. Systolic murmur at apex. ABDOMEN: Soft, nontender. Positive bowel sounds. EXTREMITIES: 2+ peripheral pulses, 2+ bilateral lower extremity edema and no calf tenderness. NEUROLOGIC EXAMINATION: Patient is awake, oriented to person only ASSESSMENT Altered mental status Urinary tract infection Cholecystitis Leukocytosis Acute on chronic congestive heart failure with preserved ejection fraction. 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 Signing provider agrees with the documented findings, assessment, and plan of care. Objective - Vital Signs Vital signs: Vital Signs Temp 97.3 F L 09/02/21 12:00 Pulse 80 09/02/21 12:00 Resp 16 09/02/21 12:00 BP 125/57 09/02/21 12:00 Pulse Ox 98 09/02/21 12:00 FiO2 Intake & Output 09/01/21 09/02/21 09/02/21 18:59 06:59 18:59 Intake Total 349.916 148 Output Total 800 650 Balance -450.084 -650 148 Weight 142 kg 142 kg Intake: IV 30 Invasive Line 1 10 Invasive Line 2 20 Intake, IV Titration 109.916 Amount Diltiazem 125 mg In 109.916 Sodium Chloride 0.9% 100 ml @ 10 MG/HR 10 mls/hr IV .[id number] [facility] Rx#: [id number] Oral 240 118 Output: Urine 800 650 Other: Voiding Method External Catheter Incontinent Diaper External Catheter Incontinent - Labs CBC & Chem 7: 09/02/21 08:26 09/02/21 08:26 Labs: Abnormal Lab Results - Last 24 Hours (Table) 09/01/21 09/02/21 09/02/21 Range/Units 23:37 05:56 08:26 WBC 12.3 H (3.8-10.6) k/uL RBC 3.69 L (3.80-5.40) m/uL Hgb 10.8 L (11.4-16.0) gm/dL Hct 33.5 L (34.0-46.0) % RDW 17.6 H (11.5-15.5) % Sodium (137-145) mmol/L Glucose (74-99) mg/dL POC Glucose (mg/dL) 160 H 152 H (70-110) mg/dL AST (14-36) U/L ALT (4-34) U/L Total Protein (6.3-8.2) g/dL Albumin (3.5-5.0) g/dL 09/02/21 09/02/21 Range/Units 08:26 11:47 WBC (3.8-10.6) k/uL RBC (3.80-5.40) m/uL Hgb (11.4-16.0) gm/dL Hct (34.0-46.0) % RDW (11.5-15.5) % Sodium 136 L (137-145) mmol/L Glucose 175 H (74-99) mg/dL POC Glucose (mg/dL) 209 H (70-110) mg/dL AST 67 H (14-36) U/L ALT 39 H (4-34) U/L Total Protein 6.0 L (6.3-8.2) g/dL Albumin 2.8 L (3.5-5.0) g/dL Microbiology - Last 24 Hours (Table) 09/01/21 09:44 Blood Culture - Preliminary Blood No Growth after 24 hours 08/30/21 23:18 Urine Culture - Preliminary Urine,Voided Enterobacter aerogenes
--- NOTE | 2021-09-02 16:25 | XR ---
EXAMINATION TYPE: XR abdomen 2V DATE OF EXAM: 09/02/2021 COMPARISON: None INDICATION: Pain free air or ileus TECHNIQUE: Abdominal series performed supine and upright views the abdomen FINDINGS: Fixation is rods and screws are within the lumbar spine. There may be a fracture on the left inferior fixation narda. Abundant bowel gas is within colon. Air fluid level may be within the right upper quad rant. Diaphragm is poorly visualized and small amount of free air may not be visualized on this exami nation. No mass effect is evident. Some small bowel loops containing air are present. Differential ai r-fluid levels are not identified. IMPRESSION: 1. Nonspecific abdomen. Ileus could be considered. 2. Given the patient's body habitus and field of view, a small amount of free air may not be visualiz ed on this exam. Follow-up as clinically indicated.
[2021-09-02 16:48] LABS: Glucose,Whole Blood 220 mg/dL (70-110)
[2021-09-02 20:11] LABS: Glucose,Whole Blood 204 mg/dL (70-110)
[2021-09-02] MEDS: HYDROcodone/APAP 7.5-325MG 1 EACH TAB PO PRN (23:03)
[2021-09-03] MEDS: PIPERACILLIN-TAZOBACTAM 3.375 GM in SODIUM CHLORIDE 0.9% 100 ML IVPB SCH ×3 (01:11→16:43)
[2021-09-03 06:09] LABS: Glucose,Whole Blood 202 mg/dL (70-110)
[2021-09-03] MEDS: LATANOPROST 0.005% OPHTH DROPS 2.5 ML BTL BOTH EYES SCH ×2 (07:07→22:11)
[2021-09-03] MEDS: SODIUM CHLORIDE 0.9% 1,000 ML IV SCH ×2 (07:34→16:45)
[2021-09-03 08:28] LABS: ALT 35 U/L (4-34); AST 57 U/L (14-36); African American GFR (CKD) >90 (>60 ml/min/1.73 sqM); Albumin 2.4 g/dL (3.5-5.0); Alkaline Phosphatase 106 U/L (38-126); Anion Gap 4 mmol/L; Blood Urea Nitrogen 15 mg/dL (7-17); Calcium 7.9 mg/dL (8.4-10.2); Carbon Dioxide 34 mmol/L (22-30); Chloride 95 mmol/L (98-107); Glucose 192 mg/dL (74-99); Magnesium 1.6 mg/dL (1.6-2.3); Non-African American GFR(CKD) 87 (>60 ml/min/1.73 sqM); Potassium 3.6 mmol/L (3.5-5.1); Sodium 133 mmol/L (137-145); Total Bilirubin 0.6 mg/dL (0.2-1.3); Total Protein 5.2 g/dL (6.3-8.2)
[2021-09-03 08:39] LABS: Anisocytosis Slight; Basophils % (A) 0 %; Eosinophils # (A) 0.3 k/uL (0-0.7); Eosinophils % (A) 3 %; HCT 33.7 % (34.0-46.0); HGB 10.3 gm/dL (11.4-16.0); Hypochromasia Marked; Lymphocytes # (A) 1.5 k/uL (1.0-4.8); Lymphocytes % (A) 14 %; MCH 27.6 pg (25.0-35.0); MCHC 30.7 g/dL (31.0-37.0); Mean Platelet Volume 7.6; Monocytes # (A) 0.8 k/uL (0-1.0); Monocytes % (A) 8 %; Neutrophils # (A) 7.6 k/uL (1.3-7.7); Neutrophils % (A) 72 %; Platelet Count 216 k/uL (150-450); RBC 3.74 m/uL (3.80-5.40); RDW 17.8 % (11.5-15.5); WBC 10.6 k/uL (3.8-10.6)
[2021-09-03] MEDS: PANTOPRAZOLE 40 MG/10 ML VIAL IVP SCH (09:24)
[2021-09-03] MEDS: predniSONE 5 MG TAB PO SCH (09:25)
[2021-09-03] MEDS: METOPROLOL TARTRATE 50 MG TAB PO SCH ×2 (09:25→16:42)
[2021-09-03] MEDS: DIGOXIN 125 MCG TAB PO SCH (09:25)
[2021-09-03] MEDS: FUROSEMIDE 10 MG/ML 2 ML VIAL IV SCH (09:25)
[2021-09-03] MEDS: AMIODARONE 100 MG TAB PO SCH (09:25)
[2021-09-03] MEDS: DOCUSATE 100 MG CAP PO SCH ×2 (09:25→21:23)
[2021-09-03] MEDS: TAMSULOSIN 0.4 MG CAP.ER.24H PO SCH (09:25)
[2021-09-03] MEDS: OXYBUTYNIN 10 MG TAB.ER.24 PO SCH (09:26)
[2021-09-03] MEDS: LEVOTHYROXINE 125 MCG TAB PO SCH (09:26)
[2021-09-03] MEDS: GABAPENTIN 400 MG CAP PO SCH ×2 (09:26→16:42)
[2021-09-03] MEDS: polyethylene glycoL 3350 17 GM POWD.PACK PO SCH (09:27)
[2021-09-03 11:50] LABS: Glucose,Whole Blood 302 mg/dL (70-110)
--- NOTE | 2021-09-03 13:10 | P.PN ---
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 She follows in the office with Dr. George. We have been asked to see in consultation for elevated troponin. Patient is seen and examined at bedside, she is confused. Unable to give an accurate history. Patient apparently was brought in for medical [place] for an increased heart rate as well as increased confusion, and yelling out in pain and shortness of breath. Patient is currently being treated for cholecystitis, urinary tract infection and ileus. Patient was found to be in atrial fibrillation with heart rate in the low 100s.She was recently admitted from 07/28/19 with heart failure exacerbation, fall, and atrial fibrillation with RVR. DIAGNOSTICS EKG reveals atrial fibrillation, heart rate 106 CT abdomen and pelvis revealed no pericardial effusion, heart is mildly enlarged, dilated gallbladder with some wall thickening as increased compared to old exam consistent with cholecystitis, large bowel ileus and constipation. Chest x-ray revealed cardiomegaly with pulmonary congestion and increased compared to last exam. 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 No acute intracranial abnormality Gallbladder revealed internal echoes as well as wall thickening Laboratory reviewed, WBC 12.3, hemoglobin 10.2, platelets 167, sodium 136, potassium 4.0, BUN 19, serum gram 0.6, troponin negative, WBC 3020 Echo 07/27/2021 shows preserved EF 55-60% with RVSP of 50, mild mitral regurgitation, moderate to severe mitral annular calcification. 09/03/2021 Patient seen and examined at bedside, she is alert this morning. Oriented x3, mentation has significantly improved. She denies any chest pain or worsening shortness of breath, very adamant on being discharged to rehab today. Patient is incontinent, I/Os do not appear to be accurate but LE edema improved. No change in weight. She is continued on IV Lasix 20mg BID. Her heart rates are better controlled today She is currently maintained on amiodarone 100 mg daily, digoxin 125mcg daily, metoprolol tartrate 100 mg twice a day Labs: blood culture negative. Urine culture positive for Enterobacter aerogenes , WBC 10.6, hemoglobin 10.3, platelets 216, sodium 133, potassium 3.6, BUN 15, serum creatinine 0.5 PHYSICAL EXAMINATION Vitals reviewed CONSTITUTIONAL: No acute distress. More alert this morning. HEENT: Head is normocephalic. No JVD. CHEST EXAMINATION: Lungs mild crackles in the bases to auscultation. No chest wall tenderness is noted on palpation or with deep breathing. HEART EXAMINATION: Irregular rate and rhythm. S1, S2 heard. Systolic murmur at apex. ABDOMEN: Soft, nontender. Positive bowel sounds. EXTREMITIES: 2+ peripheral pulses, 1-2+ bilateral lower extremity edema and no calf tenderness. NEUROLOGIC EXAMINATION: Patient is awake, oriented to person, knows she is at [facility] in [place] and knows year ASSESSMENT Altered mental status, improved Urinary tract infection Cholecystitis Leukocytosis Acute on chronic congestive heart failure with preserved ejection fraction. 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 We'll follow the patient as needed. Please reconsult if needed. Patient to follow up outpatient with Dr. George Nurse practitioner note has been reviewed by physician. Signing provider agrees with the documented findings, assessment, and plan of care. Objective - Vital Signs Vital signs: Vital Signs Temp 97.6 F 09/03/21 09:08 Pulse 80 09/03/21 09:08 Resp 16 09/03/21 09:08 BP 137/57 09/03/21 09:08 Pulse Ox 99 09/03/21 09:08 FiO2 Intake & Output 09/02/21 09/03/21 09/03/21 18:59 06:59 18:59 Intake Total 178 60 30 Balance 178 60 30 Weight 142 kg 142 kg Intake: IV 60 60 30 Invasive Line 1 20 20 10 Invasive Line 2 40 40 20 Oral 118 Other: Voiding Method Diaper Diaper Diaper Incontinent Incontinent Incontinent # Voids 1 - Labs CBC & Chem 7: 09/03/21 07:47 09/03/21 07:47 Labs: Abnormal Lab Results - Last 24 Hours (Table) 09/02/21 09/02/21 09/03/21 Range/Units 16:47 20:04 06:08 RBC (3.80-5.40) m/uL Hgb (11.4-16.0) gm/dL Hct (34.0-46.0) % MCHC (31.0-37.0) g/dL RDW (11.5-15.5) % Sodium (137-145) mmol/L Chloride (98-107) mmol/L Carbon Dioxide (22-30) mmol/L Glucose (74-99) mg/dL POC Glucose (mg/dL) 220 H 204 H 202 H (70-110) mg/dL Calcium (8.4-10.2) mg/dL AST (14-36) U/L ALT (4-34) U/L Total Protein (6.3-8.2) g/dL Albumin (3.5-5.0) g/dL 09/03/21 09/03/21 09/03/21 Range/Units 07:47 07:47 11:48 RBC 3.74 L (3.80-5.40) m/uL Hgb 10.3 L (11.4-16.0) gm/dL Hct 33.7 L (34.0-46.0) % MCHC 30.7 L (31.0-37.0) g/dL RDW 17.8 H (11.5-15.5) % Sodium 133 L (137-145) mmol/L Chloride 95 L (98-107) mmol/L Carbon Dioxide 34 H (22-30) mmol/L Glucose 192 H (74-99) mg/dL POC Glucose (mg/dL) 302 H (70-110) mg/dL Calcium 7.9 L (8.4-10.2) mg/dL AST 57 H (14-36) U/L ALT 35 H (4-34) U/L Total Protein 5.2 L (6.3-8.2) g/dL Albumin 2.4 L (3.5-5.0) g/dL Microbiology - Last 24 Hours (Table) 09/01/21 09:44 Blood Culture - Preliminary Blood No Growth after 48 hours 08/30/21 23:18 Urine Culture - Final Urine,Voided Enterobacter aerogenes Enterococcus faecium
--- NOTE | 2021-09-03 13:39 | P.PN ---
Subjective Progress Note Date: 09/03/21 CHIEF COMPLAINT: A. fib/palpitations HISTORY OF PRESENT ILLNESS: Surgical service following in regards to cholecystitis. Patient is confused. Patient denies any nausea or vomiting. Decreased appetite. She does complain of abdominal pain. She points to the left side of the abdomen. White count has normalized to 10.6. Minimally elevated LFTs trending down. Cardiology following in regards to her atrial fibrillation. Cardiology has switched patient to oral Lasix. afebrile. Abdominal x-ray nonspecific abdomen. Ileus could be considered. Given the patient's body habitus and field of view small amount of free air may not be visualized on this exam. X-ray results reviewed with Dr. sy. Per nurse patient has not had a bowel movement in several days. Patient seen and examined with Dr. sy PHYSICAL EXAM: VITAL SIGNS: Reviewed. GENERAL: Well-developed in no acute distress. HEENT: No sclera icterus. Extraocular movements grossly intact. Moist buccal mucosa. Head is atraumatic, normocephalic. ABDOMEN: Soft. Nondistended. Tenderness to palpation right upper quadrant NEUROLOGIC: Confused ASSESSMENT: 1. Acute on chronic cholecystitis 2. Ileus PLAN: -Add Reglan for ileus -continue colace and miralax -Continue supportive care -Recommend laparoscopic cholecystectomy when medically stable -Continue antibiotics -low-fat diet Physician Hot Metal Crane Operator note has been reviewed by physician. Signing provider agrees with the documented findings, assessment, and plan of care. Objective - Vital Signs Vital signs: Vital Signs Temp 97.6 F 09/03/21 09:08 Pulse 80 09/03/21 09:08 Resp 16 09/03/21 09:08 BP 137/57 09/03/21 09:08 Pulse Ox 99 09/03/21 09:08 FiO2 Intake & Output 09/02/21 09/03/21 09/03/21 18:59 06:59 18:59 Intake Total 178 60 30 Balance 178 60 30 Weight 142 kg 142 kg Intake: IV 60 60 30 Invasive Line 1 20 20 10 Invasive Line 2 40 40 20 Oral 118 Other: Voiding Method Diaper Diaper Diaper Incontinent Incontinent Incontinent # Voids 1 - Labs CBC & Chem 7: 09/03/21 07:47 09/03/21 07:47 Labs: Abnormal Lab Results - Last 24 Hours (Table) 09/02/21 09/02/21 09/03/21 Range/Units 16:47 20:04 06:08 RBC (3.80-5.40) m/uL Hgb (11.4-16.0) gm/dL Hct (34.0-46.0) % MCHC (31.0-37.0) g/dL RDW (11.5-15.5) % Sodium (137-145) mmol/L Chloride (98-107) mmol/L Carbon Dioxide (22-30) mmol/L Glucose (74-99) mg/dL POC Glucose (mg/dL) 220 H 204 H 202 H (70-110) mg/dL Calcium (8.4-10.2) mg/dL AST (14-36) U/L ALT (4-34) U/L Total Protein (6.3-8.2) g/dL Albumin (3.5-5.0) g/dL 09/03/21 09/03/21 09/03/21 Range/Units 07:47 07:47 11:48 RBC 3.74 L (3.80-5.40) m/uL Hgb 10.3 L (11.4-16.0) gm/dL Hct 33.7 L (34.0-46.0) % MCHC 30.7 L (31.0-37.0) g/dL RDW 17.8 H (11.5-15.5) % Sodium 133 L (137-145) mmol/L Chloride 95 L (98-107) mmol/L Carbon Dioxide 34 H (22-30) mmol/L Glucose 192 H (74-99) mg/dL POC Glucose (mg/dL) 302 H (70-110) mg/dL Calcium 7.9 L (8.4-10.2) mg/dL AST 57 H (14-36) U/L ALT 35 H (4-34) U/L Total Protein 5.2 L (6.3-8.2) g/dL Albumin 2.4 L (3.5-5.0) g/dL Microbiology - Last 24 Hours (Table) 09/01/21 09:44 Blood Culture - Preliminary Blood No Growth after 48 hours 08/30/21 23:18 Urine Culture - Final Urine,Voided Enterobacter aerogenes Enterococcus faecium
[2021-09-03] MEDS: METOCLOPRAMIDE 5 MG/ML 2 ML VIAL IVP SCH ×2 (15:47→16:42)
[2021-09-03 16:28] LABS: Glucose,Whole Blood 313 mg/dL (70-110)
[2021-09-03] MEDS: FUROSEMIDE 40 MG TAB PO SCH (16:42)
[2021-09-03] MEDS: INSULIN ASPART (NovoLOG) 100 UNIT/ML VIAL SQ SCH ×2 (17:04→21:23)
--- NOTE | 2021-09-03 17:15 | P.PN ---
Subjective Principal diagnosis: Back pain altered mental status This is an 81-year-old white female who is essentially admitted for UTI with sep sis element acute on chronic cholecystitis with element of heart failure and atrial fibrillation with rapid ventricular response. Appreciate cardiology input. She still seems a little disoriented. Element of discharge planning needs to be addressed. Discussion held with the family today. They are quite concerned about her overall prognosis. I tried to reassure the Family that we need to motivate the patient so that she can get strength enough to rehabilitate to try to possibly go home. The son Kevin, is now temporary guardian. Objective - Vital Signs Vital signs: Vital Signs Temp 97.6 F 09/03/21 15:42 Pulse 91 09/03/21 15:42 Resp 16 09/03/21 15:42 BP 157/72 09/03/21 15:42 Pulse Ox 93 L 09/03/21 15:42 FiO2 Intake & Output 09/02/21 09/03/21 09/03/21 18:59 06:59 18:59 Intake Total 178 60 60 Balance 178 60 60 Weight 142 kg 142 kg Intake: IV 60 60 60 Invasive Line 1 20 20 20 Invasive Line 2 40 40 40 Oral 118 Other: Voiding Method Diaper Diaper Diaper Incontinent Incontinent Incontinent # Voids 1 1 - Constitutional General appearance: Present: morbidly obese - EENT Eyes: Absent: abnormal pupil - Neck Neck: Absent: lymphadenopathy - Respiratory Respiratory: bilateral: diminished - Cardiovascular Rhythm: irregularly irregular Heart sounds: normal: S1, S2 Abnormal Heart Sounds: Absent: S3 Gallop - Gastrointestinal General gastrointestinal: Present: soft. Absent: tenderness - Psychiatric Psychiatric: Present: appropriate affect - Labs CBC & Chem 7: 09/03/21 07:47 09/03/21 07:47 Labs: Abnormal Lab Results - Last 24 Hours (Table) 09/02/21 09/03/21 09/03/21 Range/Units 20:04 06:08 07:47 RBC 3.74 L (3.80-5.40) m/uL Hgb 10.3 L (11.4-16.0) gm/dL Hct 33.7 L (34.0-46.0) % MCHC 30.7 L (31.0-37.0) g/dL RDW 17.8 H (11.5-15.5) % Sodium (137-145) mmol/L Chloride (98-107) mmol/L Carbon Dioxide (22-30) mmol/L Glucose (74-99) mg/dL POC Glucose (mg/dL) 204 H 202 H (70-110) mg/dL Calcium (8.4-10.2) mg/dL AST (14-36) U/L ALT (4-34) U/L Total Protein (6.3-8.2) g/dL Albumin (3.5-5.0) g/dL 09/03/21 09/03/21 09/03/21 Range/Units 07:47 11:48 16:26 RBC (3.80-5.40) m/uL Hgb (11.4-16.0) gm/dL Hct (34.0-46.0) % MCHC (31.0-37.0) g/dL RDW (11.5-15.5) % Sodium 133 L (137-145) mmol/L Chloride 95 L (98-107) mmol/L Carbon Dioxide 34 H (22-30) mmol/L Glucose 192 H (74-99) mg/dL POC Glucose (mg/dL) 302 H 313 H (70-110) mg/dL Calcium 7.9 L (8.4-10.2) mg/dL AST 57 H (14-36) U/L ALT 35 H (4-34) U/L Total Protein 5.2 L (6.3-8.2) g/dL Albumin 2.4 L (3.5-5.0) g/dL Microbiology - Last 24 Hours (Table) 09/01/21 09:44 Blood Culture - Preliminary Blood No Growth after 48 hours 08/30/21 23:18 Urine Culture - Final Urine,Voided Enterobacter aerogenes Enterococcus faecium Assessment and Plan (1) Cholecystitis Current Visit: Yes Status: Acute Code(s): K81.9 - CHOLECYSTITIS, UNSPECIFIED SNOMED Code(s): 88078361 (2) Ileus Current Visit: Yes Status: Acute Code(s): K56.7 - ILEUS, UNSPECIFIED SNOMED Code(s): 590806698 (3) UTI (urinary tract infection) Current Visit: Yes Status: Acute Code(s): N39.0 - URINARY TRACT INFECTION, SITE NOT SPECIFIED SNOMED Code(s): 48701582 (4) CAD (coronary artery disease) Current Visit: No Status: Acute Code(s): I25.10 - ATHSCL HEART DISEASE OF [place] CORONARY ARTERY W/O ANG PCTRS SNOMED Code(s): 78948398 (5) Congestive heart failure Current Visit: No Status: Acute Code(s): I50.9 - HEART FAILURE, UNSPECIFIED SNOMED Code(s): 24613785 (6) Diabetes Current Visit: No Status: Acute Code(s): E11.9 - TYPE 2 DIABETES MELLITUS WITHOUT COMPLICATIONS SNOMED Code(s): 36959741 (7) Elevated troponin Current Visit: No Status: Acute Code(s): R74.8 - ABNORMAL LEVELS OF OTHER SERUM ENZYMES SNOMED Code(s): 687148353 (8) History of total left hip arthroplasty Current Visit: No Status: Acute Code(s): Z96.642 - PRESENCE OF LEFT ARTIFICIAL HIP JOINT SNOMED Code(s): 301710936725 (9) Hypertension Current Visit: No Status: Acute Code(s): I10 - ESSENTIAL (PRIMARY) HYPERTENSION SNOMED Code(s): 26789142 (10) Hypothyroidism Current Visit: No Status: Acute Code(s): E03.9 - HYPOTHYROIDISM, UNSPECIFIED SNOMED Code(s): 48622540 Plan: Her mental state still does not seem appropriately like it is resolving. Multifactorial causes. 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 Heart failure with A. fib and RVR Heart rate significantly improved. White blood cell count is improved. Check CBC and CMP in a.m. Dr. Doyle's group is covering for the weekend. Discharge planning for appropriate placement. Time with Patient: Greater than 30
[2021-09-03] MEDS ORDERED: INSULIN ASPART (NovoLOG) 100 UNIT/ML VIAL SQ SCH (17:30)
[2021-09-03] MEDS: HYDROcodone/APAP 7.5-325MG 1 EACH TAB PO PRN (19:42)
[2021-09-03 20:18] LABS: Glucose,Whole Blood 231 mg/dL (70-110)
[2021-09-04] MEDS: METOCLOPRAMIDE 5 MG/ML 2 ML VIAL IVP SCH ×5 (00:02→23:24)
[2021-09-04] MEDS: PIPERACILLIN-TAZOBACTAM 3.375 GM in SODIUM CHLORIDE 0.9% 100 ML IVPB SCH ×4 (00:03→23:23)
[2021-09-04 06:46] LABS: Glucose,Whole Blood 233 mg/dL (70-110)
[2021-09-04] MEDS: INSULIN ASPART (NovoLOG) 100 UNIT/ML VIAL SQ SCH ×4 (07:01→21:21)
[2021-09-04] MEDS: SODIUM CHLORIDE 0.9% 1,000 ML IV SCH ×2 (07:02→21:21)
[2021-09-04 08:33] LABS: ALT 28 U/L (4-34); AST 35 U/L (14-36); African American GFR (CKD) >90 (>60 ml/min/1.73 sqM); Albumin 2.4 g/dL (3.5-5.0); Alkaline Phosphatase 102 U/L (38-126); Anion Gap 5 mmol/L; Blood Urea Nitrogen 9 mg/dL (7-17); Calcium 7.7 mg/dL (8.4-10.2); Carbon Dioxide 34 mmol/L (22-30); Chloride 94 mmol/L (98-107); Glucose 208 mg/dL (74-99); Magnesium 1.6 mg/dL (1.6-2.3); Non-African American GFR(CKD) 87 (>60 ml/min/1.73 sqM); Potassium 3.5 mmol/L (3.5-5.1); Sodium 133 mmol/L (137-145); Total Bilirubin 0.7 mg/dL (0.2-1.3); Total Protein 5.3 g/dL (6.3-8.2)
--- NOTE | 2021-09-04 08:55 | P.PN ---
Subjective Progress Note Date: 09/04/21 Principal diagnosis: Cholecystitis Patient without new complaints. She is tired today she says. Denies pain. Had a bowel movement. Denies nausea or vomiting. Objective - Vital Signs Vital signs: Vital Signs Temp 98.9 F 09/04/21 04:00 Pulse 87 09/04/21 04:00 Resp 17 09/04/21 04:00 BP 140/63 09/04/21 04:00 Pulse Ox 94 L 09/04/21 04:00 FiO2 Intake & Output 09/03/21 09/04/21 09/04/21 18:59 06:59 18:59 Intake Total 60 20 Balance 60 20 Weight 142 kg Intake: IV 60 20 Invasive Line 1 20 20 Invasive Line 2 40 Other: Voiding Method Diaper Diaper Incontinent Incontinent # Voids 1 # Bowel Movements 1 - Exam Abdomen: Soft, nontender, nondistended - Labs CBC & Chem 7: 09/03/21 07:47 09/04/21 07:25 Labs: Abnormal Lab Results - Last 24 Hours (Table) 09/03/21 09/03/21 09/03/21 Range/Units 11:48 16:26 20:16 Sodium (137-145) mmol/L Chloride (98-107) mmol/L Carbon Dioxide (22-30) mmol/L Glucose (74-99) mg/dL POC Glucose (mg/dL) 302 H 313 H 231 H (70-110) mg/dL Calcium (8.4-10.2) mg/dL Total Protein (6.3-8.2) g/dL Albumin (3.5-5.0) g/dL 09/04/21 09/04/21 Range/Units 06:42 07:25 Sodium 133 L (137-145) mmol/L Chloride 94 L (98-107) mmol/L Carbon Dioxide 34 H (22-30) mmol/L Glucose 208 H (74-99) mg/dL POC Glucose (mg/dL) 233 H (70-110) mg/dL Calcium 7.7 L (8.4-10.2) mg/dL Total Protein 5.3 L (6.3-8.2) g/dL Albumin 2.4 L (3.5-5.0) g/dL Microbiology - Last 24 Hours (Table) 07/06/22 09:44 Blood Culture - Preliminary Blood No Growth after 48 hours Assessment and Plan (1) Cholecystitis Narrative/Plan: Patient clinically doing fairly well. Continue diet. Continue optimization. Possible laparoscopic cholecystectomy when medically stable. Current Visit: Yes Status: Acute Code(s): K81.9 - CHOLECYSTITIS, UNSPECIFIED SNOMED Code(s): 32571107
[2021-09-04 09:17] LABS: Anisocytosis Slight; Basophils # (A) 0.1 k/uL (0-0.2); Basophils % (A) 1 %; Eosinophils # (A) 0.2 k/uL (0-0.7); Eosinophils % (A) 2 %; HCT 35.1 % (34.0-46.0); Hypochromasia Marked; Lymphocytes # (A) 1.5 k/uL (1.0-4.8); Lymphocytes % (A) 13 %; MCH 28.1 pg (25.0-35.0); MCHC 31.4 g/dL (31.0-37.0); MCV 89.4 fL (80.0-100.0); Mean Platelet Volume 7.5; Monocytes # (A) 0.7 k/uL (0-1.0); Monocytes % (A) 6 %; Neutrophils # (A) 8.2 k/uL (1.3-7.7); Neutrophils % (A) 74 %; Platelet Count 272 k/uL (150-450); RBC 3.93 m/uL (3.80-5.40); RDW 17.7 % (11.5-15.5); WBC 11.1 k/uL (3.8-10.6)
[2021-09-04] MEDS: AMIODARONE 100 MG TAB PO SCH (09:19)
[2021-09-04] MEDS: METOPROLOL TARTRATE 50 MG TAB PO SCH ×2 (09:19→18:15)
[2021-09-04] MEDS: GABAPENTIN 400 MG CAP PO SCH ×2 (09:19→18:16)
[2021-09-04] MEDS: PANTOPRAZOLE 40 MG/10 ML VIAL IVP SCH (09:19)
[2021-09-04] MEDS: DOCUSATE 100 MG CAP PO SCH ×2 (09:20→21:15)
[2021-09-04] MEDS: DIGOXIN 125 MCG TAB PO SCH (09:20)
[2021-09-04] MEDS: LEVOTHYROXINE 125 MCG TAB PO SCH (09:20)
[2021-09-04] MEDS: OXYBUTYNIN 10 MG TAB.ER.24 PO SCH (09:20)
[2021-09-04] MEDS: FUROSEMIDE 40 MG TAB PO SCH ×2 (09:20→18:16)
[2021-09-04] MEDS: TAMSULOSIN 0.4 MG CAP.ER.24H PO SCH (09:20)
[2021-09-04] MEDS: predniSONE 5 MG TAB PO SCH (09:20)
[2021-09-04] MEDS: polyethylene glycoL 3350 17 GM POWD.PACK PO SCH (09:20)
[2021-09-04 11:58] LABS: Glucose,Whole Blood 212 mg/dL (70-110)
[2021-09-04 16:47] LABS: Glucose,Whole Blood 217 mg/dL (70-110)
--- NOTE | 2021-09-04 17:19 | P.PN ---
Subjective Progress Note Date: 09/04/21 Principal diagnosis: Altered mental status/ UTI with sepsis Acute on chronic cholecystitis Atrial fibrillation with rapid ventricular response 80-year-old white female with known history of atrial fibrillation. The patient was recently discharged from the hospital because she could not tolerate MRI of the lumbar spine which was ordered secondary to her inability to ambulate. She went to [facility] and found that the MRI showed that she only had chronic changes however ambulation has been very difficult and she has returned secondary to rehab. However, the patient has had significant worsening heart rate and was admitted for evaluation of this. She has chronic atrial fibrillation. However, cognitively she's becoming more unresponsive. She now has developed elevated white blood cell count and workup does show UTI but possible cholecystitis. Surgery is not consulted. Poor by mouth intake otherwise. Objective - Vital Signs Vital signs: Vital Signs Temp 98.6 F 09/04/21 08:00 Pulse 79 09/04/21 08:00 Resp 19 09/04/21 08:00 BP 125/67 09/04/21 08:00 Pulse Ox 99 09/04/21 08:00 FiO2 Intake & Output 09/03/21 09/04/21 09/04/21 18:59 06:59 18:59 Intake Total 60 20 118 Balance 60 20 118 Weight 142 kg Intake: IV 60 20 Invasive Line 1 20 20 Invasive Line 2 40 Oral 118 Other: Voiding Method Diaper Diaper Incontinent Incontinent # Voids 1 # Bowel Movements 1 1 - Exam PHYSICAL EXAMINATION: GENERAL: The patient is alert and oriented x3, not in any acute distress. Well developed, well nourished. HEENT: Pupils are round and equally reacting to light. EOMI. No scleral icterus. No conjunctival pallor. Normocephalic, atraumatic. No pharyngeal erythema. No thyromegaly. CARDIOVASCULAR: S1 and S2 present. No murmurs, rubs, or gallops. PULMONARY: Chest is clear to auscultation, no wheezing or crackles. ABDOMEN: Soft, nontender, nondistended, normoactive bowel sounds. No palpable organomegaly. MUSCULOSKELETAL: No joint swelling or deformity. EXTREMITIES: No cyanosis, clubbing, or pedal edema. NEUROLOGICAL: Gross neurological examination did not reveal any focal deficits. SKIN: No rashes. - Labs CBC & Chem 7: 09/04/21 07:25 09/04/21 07:25 Labs: Abnormal Lab Results - Last 24 Hours (Table) 09/03/21 09/03/21 09/03/21 Range/Units 11:48 16:26 20:16 WBC (3.8-10.6) k/uL Hgb (11.4-16.0) gm/dL RDW (11.5-15.5) % Neutrophils # (1.3-7.7) k/uL Sodium (137-145) mmol/L Chloride (98-107) mmol/L Carbon Dioxide (22-30) mmol/L Glucose (74-99) mg/dL POC Glucose (mg/dL) 302 H 313 H 231 H (70-110) mg/dL Calcium (8.4-10.2) mg/dL Total Protein (6.3-8.2) g/dL Albumin (3.5-5.0) g/dL 09/04/21 09/04/21 09/04/21 Range/Units 06:42 07:25 07:25 WBC 11.1 H (3.8-10.6) k/uL Hgb 11.0 L (11.4-16.0) gm/dL RDW 17.7 H (11.5-15.5) % Neutrophils # 8.2 H (1.3-7.7) k/uL Sodium 133 L (137-145) mmol/L Chloride 94 L (98-107) mmol/L Carbon Dioxide 34 H (22-30) mmol/L Glucose 208 H (74-99) mg/dL POC Glucose (mg/dL) 233 H (70-110) mg/dL Calcium 7.7 L (8.4-10.2) mg/dL Total Protein 5.3 L (6.3-8.2) g/dL Albumin 2.4 L (3.5-5.0) g/dL Microbiology - Last 24 Hours (Table) 09/01/21 09:44 Blood Culture - Preliminary Blood No Growth after 48 hours Assessment and Plan Assessment: 1. Altered mental status; toxic/metabolic encephalopathy related to UTI/acute on chronic cholecystitis 2. Sepsis/UTI/acute or chronic cholecystitis; patient remains on IV Zosyn 3.375 g IV every 8 hours; general surgery on board with plans to proceed with cholecystectomy once patient is clinically stable 3. CHF/elevated troponin; no signs of acute coronary syndrome 4. Hypertension; metoprolol 100 mg twice a day 5. Hypothyroidism; levothyroxine 125 MCG daily 6. Diabetes mellitus; monitor Accu-Cheks before meals and at bedtime with insulin sliding scale 7. Atrial fibrillation with RVR; patient is currently rate controlled on amiodarone and digoxin along with metoprolol 100 mg twice a day; currently not anticoagulated DVT prophylaxis; SCDs CODE STATUS; full code
[2021-09-04 20:58] LABS: Glucose,Whole Blood 216 mg/dL (70-110)
[2021-09-04] MEDS: LATANOPROST 0.005% OPHTH DROPS 2.5 ML BTL BOTH EYES SCH (21:20)
[2021-09-04] MEDS: HYDROcodone/APAP 7.5-325MG 1 EACH TAB PO PRN (21:21)
[2021-09-05] MEDS: HYDROcodone/APAP 7.5-325MG 1 EACH TAB PO PRN ×3 (04:43→20:56)
[2021-09-05] MEDS: METOCLOPRAMIDE 5 MG/ML 2 ML VIAL IVP SCH ×4 (06:21→23:49)
[2021-09-05 06:25] LABS: Glucose,Whole Blood 190 mg/dL (70-110)
[2021-09-05] MEDS: INSULIN ASPART (NovoLOG) 100 UNIT/ML VIAL SQ SCH ×4 (06:57→20:56)
[2021-09-05] MEDS: METOPROLOL TARTRATE 50 MG TAB PO SCH ×2 (08:41→17:24)
[2021-09-05] MEDS: DIGOXIN 125 MCG TAB PO SCH (08:41)
[2021-09-05] MEDS: FUROSEMIDE 40 MG TAB PO SCH ×2 (08:41→17:24)
[2021-09-05] MEDS: OXYBUTYNIN 10 MG TAB.ER.24 PO SCH (08:41)
[2021-09-05] MEDS: GABAPENTIN 400 MG CAP PO SCH ×2 (08:41→17:24)
[2021-09-05] MEDS: TAMSULOSIN 0.4 MG CAP.ER.24H PO SCH (08:41)
[2021-09-05] MEDS: AMIODARONE 100 MG TAB PO SCH (08:41)
[2021-09-05] MEDS: predniSONE 5 MG TAB PO SCH (08:41)
[2021-09-05] MEDS: LEVOTHYROXINE 125 MCG TAB PO SCH (08:41)
[2021-09-05] MEDS: PANTOPRAZOLE 40 MG/10 ML VIAL IVP SCH (08:42)
[2021-09-05] MEDS: DOCUSATE 100 MG CAP PO SCH ×2 (08:42→20:07)
[2021-09-05] MEDS: polyethylene glycoL 3350 17 GM POWD.PACK PO SCH (08:42)
[2021-09-05] MEDS: PIPERACILLIN-TAZOBACTAM 3.375 GM in SODIUM CHLORIDE 0.9% 100 ML IVPB SCH ×3 (08:42→23:49)
--- NOTE | 2021-09-05 09:18 | P.PN ---
Subjective Progress Note Date: 09/05/21 Principal diagnosis: Cholecystitis Patient without new complaints. She is more alert today. Tolerating diet. Denies abdominal pain. Objective - Vital Signs Vital signs: Vital Signs Temp 97.4 F L 09/05/21 08:34 Pulse 62 09/05/21 08:34 Resp 18 09/05/21 08:34 BP 120/62 09/05/21 08:34 Pulse Ox 99 09/05/21 08:34 FiO2 Intake & Output 09/04/21 09/05/21 09/05/21 18:59 06:59 18:59 Intake Total 776 180 Balance 776 180 Weight 140 kg Intake: Oral 776 180 Other: Voiding Method Diaper Diaper Incontinent Incontinent # Voids 1 1 # Bowel Movements 2 - Exam Abdomen: Soft, nontender, nondistended - Labs CBC & Chem 7: 09/04/21 07:25 09/04/21 07:25 Labs: Abnormal Lab Results - Last 24 Hours (Table) 09/04/21 09/04/21 09/04/21 Range/Units 07:25 11:56 16:45 WBC 11.1 H (3.8-10.6) k/uL Hgb 11.0 L (11.4-16.0) gm/dL RDW 17.7 H (11.5-15.5) % Neutrophils # 8.2 H (1.3-7.7) k/uL POC Glucose (mg/dL) 212 H 217 H (70-110) mg/dL 09/04/21 09/05/21 Range/Units 20:56 06:24 WBC (3.8-10.6) k/uL Hgb (11.4-16.0) gm/dL RDW (11.5-15.5) % Neutrophils # (1.3-7.7) k/uL POC Glucose (mg/dL) 216 H 190 H (70-110) mg/dL Microbiology - Last 24 Hours (Table) 09/01/21 09:44 Blood Culture - Preliminary Blood No Growth after 72 hours Assessment and Plan (1) Cholecystitis Narrative/Plan: Patient doing well at this time. Continue diet as tolerated. Monitor for recurrent abdominal pain symptoms. Will follow. Current Visit: Yes Status: Acute Code(s): K81.9 - CHOLECYSTITIS, UNSPECIFIED SNOMED Code(s): 38573212
[2021-09-05 11:45] LABS: Glucose,Whole Blood 240 mg/dL (70-110)
[2021-09-05] MEDS: SODIUM CHLORIDE 0.9% 1,000 ML IV SCH ×2 (12:03→23:48)
--- NOTE | 2021-09-05 15:50 | P.PN ---
Subjective Progress Note Date: 09/05/21 Principal diagnosis: Altered mental status/ UTI with sepsis Acute on chronic cholecystitis Atrial fibrillation with rapid ventricular response 80-year-old white female with known history of atrial fibrillation. The patient was recently discharged from the hospital because she could not tolerate MRI of the lumbar spine which was ordered secondary to her inability to ambulate. She went to [facility] and found that the MRI showed that she only had chronic changes however ambulation has been very difficult and she has returned secondary to rehab. However, the patient has had significant worsening heart rate and was admitted for evaluation of this. She has chronic atrial fibrillation. However, cognitively she's becoming more unresponsive. She now has developed elevated white blood cell count and workup does show UTI but possible cholecystitis. Surgery is not consulted. Poor by mouth intake otherwise. 09/05/2021 Patient is seen and evaluated with son at bedside; questions about further plans regarding cholecystectomy was discussed with patient and family; family is concerned about patient's anticoagulation therapy placed on hold Vital signs are reviewed and are stable with temperature of 97.4, pulse 62, respiration 18 and blood pressure 120/62, O2 saturation of 99% General surgery on board; patient is currently asymptomatic and denies any abdominal pain; no plans to proceed with surgery for acute cholecystitis at this time; surgery is recommending to monitor closely to patient is more stable - Patient remains on IV Zosyn 3.375 g IV every 8 hours for acute on chronic cholecystitis and UTI - We will continue to monitor CBC, CRP and pro-calcitonin Objective - Vital Signs Vital signs: Vital Signs Temp 97.4 F L 09/05/21 08:34 Pulse 62 09/05/21 08:34 Resp 18 09/05/21 08:34 BP 120/62 09/05/21 08:34 Pulse Ox 99 09/05/21 08:34 FiO2 Intake & Output 09/04/21 09/05/21 09/05/21 18:59 06:59 18:59 Intake Total 776 180 Balance 776 180 Weight 140 kg Intake: Oral 776 180 Other: Voiding Method Diaper Diaper Incontinent Incontinent # Voids 1 1 # Bowel Movements 2 - Exam PHYSICAL EXAMINATION: GENERAL: The patient is alert and oriented x3, not in any acute distress. Well developed, well nourished. HEENT: Pupils are round and equally reacting to light. EOMI. No scleral icterus. No conjunctival pallor. Normocephalic, atraumatic. No pharyngeal erythema. No thyromegaly. CARDIOVASCULAR: S1 and S2 present. No murmurs, rubs, or gallops. PULMONARY: Chest is clear to auscultation, no wheezing or crackles. ABDOMEN: Soft, nontender, nondistended, normoactive bowel sounds. No palpable organomegaly. MUSCULOSKELETAL: No joint swelling or deformity. EXTREMITIES: No cyanosis, clubbing, or pedal edema. NEUROLOGICAL: Gross neurological examination did not reveal any focal deficits. SKIN: No rashes. - Labs CBC & Chem 7: 09/04/21 07:25 09/04/21 07:25 Labs: Abnormal Lab Results - Last 24 Hours (Table) 09/04/21 09/04/21 09/04/21 Range/Units 11:56 16:45 20:56 POC Glucose (mg/dL) 212 H 217 H 216 H (70-110) mg/dL 09/05/21 Range/Units 06:24 POC Glucose (mg/dL) 190 H (70-110) mg/dL Microbiology - Last 24 Hours (Table) 09/01/21 09:44 Blood Culture - Preliminary Blood No Growth after 72 hours Assessment and Plan Assessment: 1. Altered mental status; toxic/metabolic encephalopathy related to UTI/acute on chronic cholecystitis 2. Sepsis/UTI/acute or chronic cholecystitis; patient remains on IV Zosyn 3.375 g IV every 8 hours; general surgery on board with plans to proceed with cholecystectomy once patient is clinically stable 3. CHF/elevated troponin; no signs of acute coronary syndrome 4. Hypertension; metoprolol 100 mg twice a day 5. Hypothyroidism; levothyroxine 125 MCG daily 6. Diabetes mellitus; monitor Accu-Cheks before meals and at bedtime with insulin sliding scale 7. Atrial fibrillation with RVR; patient is currently rate controlled on amiodarone and digoxin along with metoprolol 100 mg twice a day; currently not anticoagulated DVT prophylaxis; SCDs CODE STATUS; full code
[2021-09-05 17:13] LABS: Glucose,Whole Blood 223 mg/dL (70-110)
[2021-09-05 20:26] LABS: Glucose,Whole Blood 271 mg/dL (70-110)
[2021-09-05] MEDS: LATANOPROST 0.005% OPHTH DROPS 2.5 ML BTL BOTH EYES SCH (20:56)
[2021-09-06] MEDS: METOCLOPRAMIDE 5 MG/ML 2 ML VIAL IVP SCH ×3 (05:47→17:00)
[2021-09-06 06:16] LABS: Glucose,Whole Blood 192 mg/dL (70-110)
[2021-09-06] MEDS: INSULIN ASPART (NovoLOG) 100 UNIT/ML VIAL SQ SCH ×4 (06:50→20:36)
[2021-09-06 07:28] LABS: Anisocytosis Slight; Basophils # (A) 0.1 k/uL (0-0.2); Basophils % (A) 1 %; Eosinophils # (A) 0.2 k/uL (0-0.7); Eosinophils % (A) 3 %; HCT 34.2 % (34.0-46.0); HGB 10.6 gm/dL (11.4-16.0); Hypochromasia Marked; Lymphocytes # (A) 1.7 k/uL (1.0-4.8); Lymphocytes % (A) 21 %; MCH 27.7 pg (25.0-35.0); MCHC 30.9 g/dL (31.0-37.0); MCV 89.7 fL (80.0-100.0); Monocytes # (A) 0.4 k/uL (0-1.0); Monocytes % (A) 5 %; Neutrophils # (A) 5.3 k/uL (1.3-7.7); Neutrophils % (A) 67 %; Platelet Count 317 k/uL (150-450); RBC 3.82 m/uL (3.80-5.40); RDW 17.7 % (11.5-15.5); WBC 7.9 k/uL (3.8-10.6)
[2021-09-06] MEDS: DIGOXIN 125 MCG TAB PO SCH (08:06)
[2021-09-06] MEDS: DOCUSATE 100 MG CAP PO SCH ×2 (08:06→20:36)
[2021-09-06] MEDS: TAMSULOSIN 0.4 MG CAP.ER.24H PO SCH (08:06)
[2021-09-06] MEDS: PIPERACILLIN-TAZOBACTAM 3.375 GM in SODIUM CHLORIDE 0.9% 100 ML IVPB SCH ×2 (08:06→16:14)
[2021-09-06] MEDS: METOPROLOL TARTRATE 50 MG TAB PO SCH ×2 (08:06→16:14)
[2021-09-06] MEDS: PANTOPRAZOLE 40 MG/10 ML VIAL IVP SCH (08:06)
[2021-09-06] MEDS: LEVOTHYROXINE 125 MCG TAB PO SCH (08:06)
[2021-09-06] MEDS: OXYBUTYNIN 10 MG TAB.ER.24 PO SCH (08:06)
[2021-09-06] MEDS: FUROSEMIDE 40 MG TAB PO SCH ×2 (08:06→16:14)
[2021-09-06] MEDS: predniSONE 5 MG TAB PO SCH (08:06)
[2021-09-06] MEDS: GABAPENTIN 400 MG CAP PO SCH ×2 (08:06→16:14)
[2021-09-06] MEDS: AMIODARONE 100 MG TAB PO SCH (08:06)
[2021-09-06] MEDS: polyethylene glycoL 3350 17 GM POWD.PACK PO SCH ×2 (08:07→08:10)
--- NOTE | 2021-09-06 08:08 | P.DS ---
Providers Date of admission: 08/31/21 01:30 Attending physician: Nicholas Hart Consults: 08/31/21 09:57 Consult Physician Urgent Consulting Provider: Darius Cruz Consult Reason/Comments: possible cholecystitis Do you want consulting provider notified?: Yes 08/31/21 15:12 Consult Physician Routine Consulting Provider: Vincent Ellis Consult Reason/Comments: positive troponins Do you want consulting provider notified?: Already Contacted Primary care physician: Kevin Welsh - Discharge Diagnosis(es) (1) Cholecystitis Current Visit: Yes Status: Acute (2) Ileus Current Visit: Yes Status: Acute (3) UTI (urinary tract infection) Current Visit: Yes Status: Acute (4) CAD (coronary artery disease) Current Visit: No Status: Acute (5) Congestive heart failure Current Visit: No Status: Acute (6) Diabetes Current Visit: No Status: Acute (7) Elevated troponin Current Visit: No Status: Acute (8) History of total left hip arthroplasty Current Visit: No Status: Acute (9) Hypertension Current Visit: No Status: Acute (10) Hypothyroidism Current Visit: No Status: Acute Hospital Course: This is a discharge summary 81-year-old white female essentially admitted for altered mental status. The patient was found to have acute on chronic cholecystitis with UTI and sepsis element. The patient has an underlying history diabetes and atrial fibrillation showed significant rapid ventricular response and cardiology was consulted and adjusted medications are digoxin. The patient was stabilized has been afebrile now blood sugar has been somewhat labile but Place on sliding scale. I had a long discussion with her son and we need to get her rehabilitated so that she can tolerate probable outpatient surgery. She seems to be tolerating diet we will keep her on low-fat cardiac element. The patient will be discharged in stable but guarded condition to follow-up with me in about one week. She is to be transferred to rehab. Patient Condition at Discharge: Stable Plan - Discharge Summary Discharge Rx Participant: No New Discharge Prescriptions: New Docusate [Colace] 100 mg PO BID #0 cap Digoxin [Lanoxin] 125 mcg PO DAILY #30 tab Furosemide [Lasix] 40 mg PO BID@0900,1600 tab HYDROcodone/APAP 7.5-325MG [[place] 7.5-325] 1 each PO Q6HR PRN tab PRN Reason: Pain polyethylene glycoL 3350 [Miralax] 17 gm PO DAILY packet Continue Latanoprost [Xalatan 0.005%] 1 drop BOTH EYES HS@1999 Nitroglycerin Sl Tabs [Nitrostat] 0.4 mg SUBLINGUAL Q5M PRN #30 tab PRN Reason: Chest Pain Insulin Lispro [humaLOG Kwikpen] See Protocol SQ ACHS Multivitamins, Thera [Multivitamin (formulary)] 1 tab PO HS@1999 Levothyroxine Sodium [Synthroid] 125 mcg PO DAILY@0800 Gabapentin 800 mg PO BID@0800,1700 Acetaminophen Tab [Tylenol] 650 mg PO Q6H PRN PRN Reason: Pain Artificial Tears-Hypromellose [Artificial Tear Drops] 2 drops BOTH EYES DAILY PRN PRN Reason: DRY EYES Dicyclomine [Bentyl] 10 mg PO Q8H PRN PRN Reason: CRAMPS/STOMACH PAIN Insulin Glargine,Hum.rec.anlog [Lantus Solostar Pen] 46 units SQ DAILY@0800 Magnesium Oxide 400 mg PO BID@0800,1700 Omeprazole 20 mg PO DAILY@0800 Tamsulosin [Flomax] 0.4 mg PO DAILY@0800 predniSONE 5 mg PO DAILY@0800 Amiodarone HCl [Cordarone] 100 mg PO DAILY@0800 Apixaban [Eliquis] 5 mg PO BID@0800,1700 Famotidine [Pepcid] 10 mg PO Q12H PRN PRN Reason: Heartburn methocarbamoL [Methocarbamol] 1,000 mg PO Q6H PRN PRN Reason: Pain Metoprolol Tartrate [Lopressor] 100 mg PO BID@0800,1700 Oxybutynin Chloride [Oxybutynin Chloride ER] 10 mg PO DAILY@0800 Discharge Medication List Latanoprost [Xalatan 0.005%] 1 drop BOTH EYES HS@199908/11/17 [History] Nitroglycerin Sl Tabs [Nitrostat] 0.4 mg SUBLINGUAL Q5M PRN #30 tab 08/13/17 [Rx] Insulin Lispro [humaLOG Kwikpen] See Protocol SQ ACHS 09/25/18 [History] Multivitamins, Thera [Multivitamin (formulary)] 1 tab PO HS@199911/19/18 [History] Levothyroxine Sodium [Synthroid] 125 mcg PO DAILY@0800 08/02/19 [History] Gabapentin 800 mg PO BID@0800,1700 07/23/21 [History] predniSONE 5 mg PO DAILY@0807/23/21 [History] Acetaminophen Tab [Tylenol] 650 mg PO Q6H PRN 08/30/21 [History] Amiodarone HCl [Cordarone] 100 mg PO DAILY@0800 08/30/21 [History] Apixaban [Eliquis] 5 mg PO BID@0800,17008/30/21 [History] Artificial Tears-Hypromellose [Artificial Tear Drops] 2 drops BOTH EYES DAILY PRN 08/30/21 [History] Dicyclomine [Bentyl] 10 mg PO Q8H PRN 08/30/21 [History] Famotidine [Pepcid] 10 mg PO Q12H PRN 08/30/21 [History] Insulin Glargine,Hum.rec.anlog [Lantus Solostar Pen] 46 units SQ DAILY@0808/30/21 [History] Magnesium Oxide 400 mg PO BID@0800,17008/30/21 [History] Metoprolol Tartrate [Lopressor] 100 mg PO BID@0800,17008/30/21 [History] Omeprazole 20 mg PO DAILY@0808/30/21 [History] Oxybutynin Chloride [Oxybutynin Chloride ER] 10 mg PO DAILY@0800 08/30/21 [History] Tamsulosin [Flomax] 0.4 mg PO DAILY@0808/30/21 [History] methocarbamoL [Methocarbamol] 1,000 mg PO Q6H PRN 08/30/21 [History] Digoxin [Lanoxin] 125 mcg PO DAILY #30 tab 09/06/21 [Rx] Docusate [Colace] 100 mg PO BID #0 cap 09/06/21 [Rx] Furosemide [Lasix] 40 mg PO BID@0900,1600 tab 09/06/21 [Rx] HYDROcodone/APAP 7.5-325MG [[place] 7.5-325] 1 each PO Q6HR PRN tab 09/06/21 [Rx] polyethylene glycoL 3350 [Miralax] 17 gm PO DAILY packet 09/06/21 [Rx] Follow up Appointment(s)/Referral(s): Kevin Welsh DO [Primary Care Provider] - 1-2 days Jamshid George MD [STAFF PHYSICIAN] - 2 Weeks Darius Cruz MD [STAFF PHYSICIAN] - 1 Week Discharge Disposition: TRANSFER TO SNF/ECF
[2021-09-06] MEDS: SODIUM CHLORIDE 0.9% 1,000 ML IV SCH (08:13)
[2021-09-06 08:25] LABS: African American GFR (CKD) >90 (>60 ml/min/1.73 sqM); Anion Gap 4 mmol/L; Blood Urea Nitrogen 4 mg/dL (7-17); C Reactive Protein 8.3 mg/dL (<1.0); Calcium 7.8 mg/dL (8.4-10.2); Chloride 92 mmol/L (98-107); Glucose 191 mg/dL (74-99); Non-African American GFR(CKD) >90 (>60 ml/min/1.73 sqM); Potassium 3.3 mmol/L (3.5-5.1); Sodium 136 mmol/L (137-145)
[2021-09-06 08:35] LABS: Carbon Dioxide 40 mmol/L (22-30)
[2021-09-06] MEDS ORDERED: Potassium Replacement Protocol 1 EACH MISC MISCELLANE PRN (09:30)
[2021-09-06] MEDS: POTASSIUM CHLORIDE ER 20 MEQ TAB.ER PO SCH ×2 (09:47→12:12)
--- NOTE | 2021-09-06 11:22 | P.PN ---
Subjective Progress Note Date: 09/06/21 CHIEF COMPLAINT: A. fib/palpitations HISTORY OF PRESENT ILLNESS: Surgical service following in regards to cholecystitis. Patient's mentation has improved. She denies any abdominal pain. Denies any nausea or vomiting. Reports that her appetite is doing better. She is having bowel movements. Afebrile. WBC 7.9 Hgb 10.6 Patient seen and examined with Dr. sy PHYSICAL EXAM: VITAL SIGNS: Reviewed. GENERAL: Well-developed in no acute distress. ABDOMEN: Soft. Nondistended. Nontender ASSESSMENT: 1. Acute on chronic cholecystitis 2. Ileus PLAN: -Patient is stable from surgical standpoint for discharge -Recommend laparoscopic cholecystectomy when medically stable -low-fat diet -Follow up outpatient with Dr. sy -Continue good bowel regimen Physician Vendor Manager note has been reviewed by physician. Signing provider agrees with the documented findings, assessment, and plan of care. Objective - Vital Signs Vital signs: Vital Signs Temp 97.9 F 09/06/21 08:00 Pulse 66 09/06/21 11:03 Resp 18 09/06/21 11:03 BP 142/63 09/06/21 11:03 Pulse Ox 98 09/06/21 11:03 FiO2 Intake & Output 09/05/21 09/06/21 09/06/21 18:59 06:59 18:59 Intake Total 900 240 Output Total 600 Balance 900 -360 Intake: Oral 900 240 Output: Urine 600 Other: Voiding Method Diaper Diaper Diaper Incontinent Incontinent Incontinent External Catheter # Voids 1 1 # Bowel Movements 1 - Labs CBC & Chem 7: 09/06/21 07:10 09/06/21 07:10 Labs: Abnormal Lab Results - Last 24 Hours (Table) 09/05/21 09/05/21 09/05/21 Range/Units 11:44 17:12 20:24 Hgb (11.4-16.0) gm/dL MCHC (31.0-37.0) g/dL RDW (11.5-15.5) % Sodium (137-145) mmol/L Potassium (3.5-5.1) mmol/L Chloride (98-107) mmol/L Carbon Dioxide (22-30) mmol/L BUN (7-17) mg/dL Glucose (74-99) mg/dL POC Glucose (mg/dL) 240 H 223 H 271 H (70-110) mg/dL Calcium (8.4-10.2) mg/dL C-Reactive Protein (<1.0) mg/dL 09/06/21 09/06/21 09/06/21 Range/Units 06:15 07:10 07:10 Hgb 10.6 L (11.4-16.0) gm/dL MCHC 30.9 L (31.0-37.0) g/dL RDW 17.7 H (11.5-15.5) % Sodium 136 L (137-145) mmol/L Potassium 3.3 L (3.5-5.1) mmol/L Chloride 92 L (98-107) mmol/L Carbon Dioxide 40 H (22-30) mmol/L BUN 4 L (7-17) mg/dL Glucose 191 H (74-99) mg/dL POC Glucose (mg/dL) 192 H (70-110) mg/dL Calcium 7.8 L (8.4-10.2) mg/dL C-Reactive Protein 8.3 H (<1.0) mg/dL Microbiology - Last 24 Hours (Table) 09/01/21 09:44 Blood Culture - Preliminary Blood No Growth after 96 hours
[2021-09-06 12:09] LABS: Glucose,Whole Blood 344 mg/dL (70-110)
[2021-09-06] MEDS: HYDROcodone/APAP 7.5-325MG 1 EACH TAB PO PRN ×2 (12:59→20:38)
[2021-09-06 16:50] LABS: Glucose,Whole Blood 209 mg/dL (70-110)
[2021-09-06] MEDS: HYDROmorphone 0.5 MG/0.5 ML SYRINGE IVP PRN (18:06)
[2021-09-06 20:05] LABS: Glucose,Whole Blood 273 mg/dL (70-110)
[2021-09-06] MEDS: LATANOPROST 0.005% OPHTH DROPS 2.5 ML BTL BOTH EYES SCH (20:36)
[2021-09-07] MEDS: PIPERACILLIN-TAZOBACTAM 3.375 GM in SODIUM CHLORIDE 0.9% 100 ML IVPB SCH (00:07)
[2021-09-07] MEDS: METOCLOPRAMIDE 5 MG/ML 2 ML VIAL IVP SCH ×2 (00:08→06:38)
[2021-09-07 06:12] LABS: Glucose,Whole Blood 194 mg/dL (70-110)
[2021-09-07] MEDS: SODIUM CHLORIDE 0.9% 1,000 ML IV SCH ×2 (06:16→06:41)
[2021-09-07] MEDS: INSULIN ASPART (NovoLOG) 100 UNIT/ML VIAL SQ SCH ×3 (06:39→16:50)
[2021-09-07] MEDS: polyethylene glycoL 3350 17 GM POWD.PACK PO SCH (08:02)
[2021-09-07] MEDS: OXYBUTYNIN 10 MG TAB.ER.24 PO SCH (08:09)
[2021-09-07] MEDS: PANTOPRAZOLE 40 MG/10 ML VIAL IVP SCH (08:09)
[2021-09-07] MEDS: METOPROLOL TARTRATE 50 MG TAB PO SCH ×2 (08:09→16:17)
[2021-09-07] MEDS: TAMSULOSIN 0.4 MG CAP.ER.24H PO SCH (08:09)
[2021-09-07] MEDS: AMIODARONE 100 MG TAB PO SCH (08:09)
[2021-09-07] MEDS: FUROSEMIDE 40 MG TAB PO SCH ×2 (08:09→16:17)
[2021-09-07] MEDS: GABAPENTIN 400 MG CAP PO SCH ×2 (08:09→16:17)
[2021-09-07] MEDS: LEVOTHYROXINE 125 MCG TAB PO SCH (08:09)
[2021-09-07] MEDS: DOCUSATE 100 MG CAP PO SCH (08:09)
[2021-09-07] MEDS: predniSONE 5 MG TAB PO SCH (08:09)
[2021-09-07] MEDS: DIGOXIN 125 MCG TAB PO SCH (08:09)
[2021-09-07 11:31] VITALS: RESP 18
[2021-09-07 11:56] LABS: Glucose,Whole Blood 230 mg/dL (70-110)
[2021-09-07] MEDS: METOCLOPRAMIDE 10 MG TAB PO SCH ×2 (12:12→16:50)
--- NOTE | 2021-09-07 13:28 | P.PN ---
Subjective Progress Note Date: 09/07/21 CHIEF COMPLAINT: A. fib/palpitations HISTORY OF PRESENT ILLNESS: Surgical service following in regards to cholecystitis. Patient's mentation has improved. She denies any abdominal pain. Denies any nausea or vomiting. Reports that her appetite is doing better. She reports a small bowel movement yesterday. She is awaiting insurance authorization for placement. Afebrile. Patient seen and examined with Dr. sy PHYSICAL EXAM: VITAL SIGNS: Reviewed. GENERAL: Well-developed in no acute distress. ABDOMEN: Soft. Nondistended. Nontender ASSESSMENT: 1. Acute on chronic cholecystitis 2. Ileus PLAN: -Patient is stable from surgical standpoint for discharge -Recommend laparoscopic cholecystectomy when medically stable -low-fat diet -Follow up outpatient with Dr. sy -Continue good bowel regimen Physician Levers Lace Machine Operator note has been reviewed by physician. Signing provider agrees with the documented findings, assessment, and plan of care. Objective - Vital Signs Vital signs: Vital Signs Temp 97.7 F 09/07/21 08:06 Pulse 73 09/07/21 13:25 Resp 18 09/07/21 11:30 BP 150/66 09/07/21 11:30 Pulse Ox 99 09/07/21 11:30 FiO2 Intake & Output 09/06/21 09/07/21 09/07/21 18:59 06:59 18:59 Intake Total 960 281 3447 Output Total 600 2150 Balance 116 -1750 1190 Intake: Intake, IV Titration 160 Amount Piperacillin-Tazobactam 3 100 .375 gm In Sodium Chloride 0.9% 100 ml @ 25 mls/hr IVPB Q8H [facility] Rx#: [id number] Sodium Chloride 0.9% 1, 60 000 ml @ 75 mls/hr IV . [id number] [facility] Rx#:[id number] Oral 133 520 7502 Output: Urine 600 2150 Other: Voiding Method Diaper Diaper Diaper Incontinent Incontinent Incontinent External Catheter External Catheter External Catheter - Labs CBC & Chem 7: 09/06/21 07:10 09/06/21 07:10 Labs: Abnormal Lab Results - Last 24 Hours (Table) 09/06/21 09/06/21 09/07/21 Range/Units 16:32 20:04 06:11 POC Glucose (mg/dL) 209 H 273 H 194 H (70-110) mg/dL 09/07/21 Range/Units 11:54 POC Glucose (mg/dL) 230 H (70-110) mg/dL Microbiology - Last 24 Hours (Table) 09/01/21 09:44 Blood Culture - Final Blood No Growth after 144 hours
[2021-09-07] MEDS: HYDROcodone/APAP 7.5-325MG 1 EACH TAB PO PRN (13:37)
[2021-09-07 16:38] LABS: Glucose,Whole Blood 302 mg/dL (70-110)
[2021-09-07 17:46] VITALS: BP 153/66; PULSE 64; TEMP 98
== END 2021-09-07 20:03 | DRG 871 ==
LOC: EC 19:50 → 3SCARD 08-31 01:30 → EEVIPCON 08-31 01:30 → 3SCARD 08-31 13:30
PROVIDERS: ADMIT Family Medicine; ATTEND Family Medicine
DX: A41.9 Sepsis, unspecified organism (principal); G92.8 Other toxic encephalopathy; I50.33 Acute on chronic diastolic (congestive) heart failure; N39.0 Urinary tract infection, site not specified; K81.2 Acute cholecystitis with chronic cholecystitis; Z68.41 Body mass index [BMI] 40.0-44.9, adult; K56.7 Ileus, unspecified; I48.19 Other persistent atrial fibrillation; I27.20 Pulmonary hypertension, unspecified; M05.10 Rheumatoid lung disease with rheumatoid arthritis of unspecified site; L40.50 Arthropathic psoriasis, unspecified; I11.0 Hypertensive heart disease with heart failure; E11.9 Type 2 diabetes mellitus without complications; E66.01 Morbid (severe) obesity due to excess calories; M35.0B Sjogren syndrome with vasculitis; Z79.4 Long term (current) use of insulin; R65.20 Severe sepsis without septic shock; M47.816 Spondylosis without myelopathy or radiculopathy, lumbar region; E78.5 Hyperlipidemia, unspecified; E03.9 Hypothyroidism, unspecified; K21.9 Gastro-esophageal reflux disease without esophagitis; R32 Unspecified urinary incontinence; I25.10 Atherosclerotic heart disease of native coronary artery without angina pectoris; G89.29 Other chronic pain; M48.00 Spinal stenosis, site unspecified; K59.00 Constipation, unspecified; R77.8 Other specified abnormalities of plasma proteins; M19.90 Unspecified osteoarthritis, unspecified site; Z79.01 Long term (current) use of anticoagulants; Z79.890 Hormone replacement therapy; Z79.52 Long term (current) use of systemic steroids; Z79.899 Other long term (current) drug therapy; Z87.39 Personal history of other diseases of the musculoskeletal system and connective tissue; Z87.891 Personal history of nicotine dependence; Z86.14 Personal history of Methicillin resistant Staphylococcus aureus infection; Z86.19 Personal history of other infectious and parasitic diseases; Z85.820 Personal history of malignant melanoma of skin; Z96.642 Presence of left artificial hip joint; Z86.73 Personal history of transient ischemic attack (TIA), and cerebral infarction without residual deficits; Z71.3 Dietary counseling and surveillance; Z88.1 Allergy status to other antibiotic agents; Z88.2 Allergy status to sulfonamides; Z91.048 Other nonmedicinal substance allergy status
CPT/HCPCS: 36415; 70450; 71046; 72125; 74019; 74177; 76705; 80048; 80053; 81001; 83605; 83690; 83735; 83880; 84145; 84439; 84443; 84484; 85025; 85027; 85610; 85730; 86140; 87040; 87077; 87086; 87186; 93005; 94760; 96361; 96374; 96375; 99285

== ENCOUNTER 2021-11-16 08:22 | Observation (INO) | payer MEDICARE ==
--- NOTE | 2021-11-16 09:42 | XR ---
EXAMINATION TYPE: XR lumbar spine 2 or 3V DATE OF EXAM: 11/16/2021 CLINICAL HISTORY: Fall, pain. TECHNIQUE: Three views of the lumbar spine are submitted. COMPARISON: Lumbar spine radiographs 03/10/2011, CT thoracic lumbar spine 07/28/2021. FINDINGS: There are 5 lumbar type vertebral bodies identified. Mild degree of scoliotic curvature with right-si ded convexity centered at the mid lumbar spine redemonstrated. Interpedicular stabilization screws kimball perimpose the bodies of the second, third, fourth, fifth lumbar and first sacral segments. Multilevel laminectomy changes. Hardware appears unchanged. No definitive spondylolisthesis. Vertebral body hei ghts are maintained. Multilevel degenerative disc disease with disc space narrowing, endplate scleros is, and anterior osteophytosis. Vascular sclerosis. The overlying soft tissue appears unremarkable. P artial visualization of left total hip arthroplasty. IMPRESSION: 1. No acute fracture or dislocation is seen in the lumbar spine. 2. Redemonstration of posterior fusion changes of the lumbosacral spine. Hardware appears unchanged.
--- NOTE | 2021-11-16 09:46 | ED ---
Fall HPI - General Chief Complaint: Fall Stated Complaint: low back pain Time Seen by Provider: 11/16/21 08:36 Source: patient, EMS, RN notes reviewed Mode of arrival: EMS Limitations: no limitations - History of Present Illness Initial Comments: This an 81-year-old female presents emergency department via EMS for evaluation of low back pain. Patient states that she soaked former doctors into a wall and sliding down into her low back. Patient states she had pain in her low back initially but states that she does not have pain currently. She is concerned that she's had prior fusion of her lumbar spine years ago. Patient denies any bowel, bladder incontinence or retention or saddle anesthesias. Patient did not take anything prior arrival. Patient denies any head injury no loss conscious other complaints. - Related Data Home Medications Medication Instructions Recorded Confirmed Latanoprost [Xalatan 0.005%] 1 drop BOTH EYES HS@199908/11/17 08/30/21 Insulin Lispro [humaLOG Kwikpen] See Protocol SQ ACHS 09/25/18 08/30/21 Multivitamins, Thera [Multivitamin 1 tab PO HS@199911/19/18 08/30/21 (formulary)] Levothyroxine Sodium [Synthroid] 125 mcg PO DAILY@0800 08/02/19 08/30/21 predniSONE 5 mg PO DAILY@0800 07/23/21 08/30/21 Acetaminophen Tab [Tylenol] 650 mg PO Q6H PRN 08/30/21 08/30/21 Amiodarone HCl [Cordarone] 100 mg PO DAILY@0800 08/30/21 08/30/21 Apixaban [Eliquis] 5 mg PO BID@0800,1700 08/30/21 08/30/21 Artificial Tears-Hypromellose 2 drops BOTH EYES DAILY PRN 08/30/21 08/30/21 [Artificial Tear Drops] Dicyclomine [Bentyl] 10 mg PO Q8H PRN 08/30/21 08/30/21 Famotidine [Pepcid] 10 mg PO Q12H PRN 08/30/21 08/30/21 Insulin Glargine,Hum.rec.anlog 46 units SQ DAILY@0800 08/30/21 08/30/21 [Lantus Solostar Pen] Magnesium Oxide 400 mg PO BID@0800,1700 08/30/21 08/30/21 Metoprolol Tartrate [Lopressor] 100 mg PO BID@0800,1700 08/30/21 08/30/21 Omeprazole 20 mg PO DAILY@0800 08/30/21 08/30/21 Oxybutynin Chloride [Oxybutynin 10 mg PO DAILY@0800 08/30/21 08/30/21 Chloride ER] Tamsulosin [Flomax] 0.4 mg PO DAILY@0800 08/30/21 08/30/21 methocarbamoL [Methocarbamol] 1,000 mg PO Q6H PRN 08/30/21 08/30/21 Previous Rx's Medication Instructions Recorded Nitroglycerin Sl Tabs [Nitrostat] 0.4 mg SUBLINGUAL Q5M PRN #30 tab 08/13/17 Digoxin [Lanoxin] 125 mcg PO DAILY #30 tab 09/06/21 Docusate [Colace] 100 mg PO BID #0 cap 09/06/21 Furosemide [Lasix] 40 mg PO BID@0900,1600 tab 09/06/21 polyethylene glycoL 3350 [Miralax] 17 gm PO DAILY packet 09/06/21 Gabapentin 800 mg PO BID@0800,1700 #6 tab 09/07/21 HYDROcodone/APAP 7.5-325MG [Errol 1 tab PO Q6HR PRN 3 Days #12 tab 09/07/21 7.5-325] Allergies Allergy/AdvReac Type Severity Reaction Status Date / Time adhesive Allergy Rash/Hives Verified 11/16/21 08:33 cephalexin [From Keflex] Allergy Rash/Hives Verified 11/16/21 08:33 grass pollen Allergy Unknown Verified 11/16/21 08:33 mold Allergy Unknown Verified 11/16/21 08:33 Sulfa (Sulfonamide Allergy Rash/Hives Verified 11/16/21 08:33 Antibiotics) newspaper ink Allergy Mild Unknown Uncoded 11/16/21 08:33 Review of Systems ROS Statement: Those systems with pertinent positive or pertinent negative responses have been documented in the HPI. ROS Other: All systems not noted in ROS Statement are negative. Past Medical History Past Medical History: Atrial Fibrillation, Coronary Artery Disease (CAD), Cancer, Diabetes Mellitus, Hyperlipidemia, Hypertension, Musculoskeletal Disorder, Neurologic Disorder, Osteoarthritis (OA), Pneumonia, Renal Disease, Rheumatoid Arthritis (RA), Skin Disorder, Thyroid Disorder Additional Past Medical History / Comment(s): Morbid obesity, chronic atrial fibrillation, diabetes mellitus type 2, hypertension, hyperlipidemia, spinal stenosis, osteoarthritis, hypothyroidism, hypertension, history of skin melanoma, history of bursitis with MRSA post I&D, rheumatoid arthritis, Sjogren's disease, 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 Past Anesthesia/Blood Transfusion Reactions: No Reported Reaction Additional Past Anesthesia/Blood Transfusion Reaction / Comment(s): Pt has been told not to have anesthesia metabolized by the kidneys and has neurologic Sjogren's with post anesthesia paralysis. Past Psychological History: No Psychological Hx Reported Smoking Status: Former smoker Past Alcohol Use History: None Reported Past Drug Use History: None Reported - Past Family History Mother Family Medical History: CVA/TIA Additional Family Medical History / Comment(s): RUPTURED BOWEL Father Family Medical History: Cancer, Pneumonia Additional Family Medical History / Comment(s): ASPIRATIVE PNA Sister(s) Additional Family Medical History / Comment(s): at age 34 with lupus General Exam Limitations: no limitations General appearance: alert, in no apparent distress Head exam: Present: atraumatic, normocephalic, normal inspection Neck exam: Present: normal inspection, full ROM. Absent: tenderness, meningismus, lymphadenopathy Respiratory exam: Present: normal lung sounds bilaterally. Absent: respiratory distress, wheezes, rales, rhonchi, stridor Cardiovascular Exam: Present: regular rate, normal rhythm, normal heart sounds. Absent: systolic murmur, diastolic murmur, rubs, gallop, clicks GI/Abdominal exam: Present: soft, normal bowel sounds. Absent: distended, tenderness, guarding, rebound, rigid Extremities exam: Present: normal inspection, full ROM, normal capillary refill. Absent: tenderness, pedal edema, joint swelling, calf tenderness Back exam: Present: full ROM. Absent: tenderness, paraspinal tenderness, vertebral tenderness Neurological exam: Present: alert, oriented X3, CN II-XII intact, reflexes normal. Absent: motor sensory deficit Skin exam: Present: warm, dry, intact, normal color. Absent: rash Course Vital Signs 11/16/21 08:24 Pulse Rate 60 Respiratory 16 Rate Blood Pressure 118/65 O2 Sat by Pulse 98 Oximetry Medical Decision Making - Medical Decision Making X-ray shows no acute changes patient is neurologically intact with no red flag symptoms. Patient be discharged in stable condition return parameters were discussed. Disposition Clinical Impression: Fall, Back pain Disposition: HOME SELF-CARE Condition: Stable Instructions (If sedation given, give patient instructions): Back Pain (ED) Additional Instructions: Please return to the Emergency Department if symptoms worsen or any other concerns. Is patient prescribed a controlled substance at d/c from ED?: No Referrals: Nicholas Hart MD [Primary Care Provider] - 1-2 days Time of Disposition: 09:45
[2021-11-16] MEDS ORDERED: HYDROcodone/APAP 7.5-325MG 1 EACH TAB PO ONE (10:12)
[2021-11-16 10:23] LABS: Glucose,Whole Blood 272 mg/dL (70-110)
--- NOTE | 2021-11-16 11:58 | ED ---
Medical Decision Making - Medical Decision Making Patient is unable to stand, unable to ambulate upon being discharged. Patient will be admitted for physical therapy, rehab as she is unstable, unfit for home - Lab Data Lab Results 11/16/21 Range/Units 10:21 POC Glucose (mg/dL) 272 H (70-110) mg/dL POC Glu Activated Sludge Operator ID Emilee Koroma Disposition Clinical Impression: Fall, Back pain, Unable to ambulate, Inability to perform activities of daily living Disposition: ADMITTED IP TO THIS [facility] Condition: Fair Additional Instructions: Please return to the Emergency Department if symptoms worsen or any other concerns. Referrals: Nicholas Hart MD [Primary Care Provider] - 1-2 days
[2021-11-16] MEDS ORDERED: ONDANSETRON 4 MG/2 ML VIAL IVP PRN (12:05)
[2021-11-16] MEDS ORDERED: NALOXONE 0.4 MG/ML 1 ML VIAL IV PRN (12:05)
[2021-11-16 13:26] LABS: Anisocytosis Slight; Basophils # (A) 0.1 k/uL (0-0.2); Basophils % (A) 1 %; Eosinophils # (A) 0.1 k/uL (0-0.7); Eosinophils % (A) 1 %; HCT 38.4 % (34.0-46.0); HGB 11.8 gm/dL (11.4-16.0); Hypochromasia Moderate; Lymphocytes # (A) 1.2 k/uL (1.0-4.8); Lymphocytes % (A) 12 %; MCH 28.2 pg (25.0-35.0); MCHC 30.7 g/dL (31.0-37.0); MCV 91.8 fL (80.0-100.0); Mean Platelet Volume 7.2; Monocytes # (A) 0.5 k/uL (0-1.0); Monocytes % (A) 5 %; Neutrophils # (A) 8.3 k/uL (1.3-7.7); Neutrophils % (A) 81 %; Platelet Count 192 k/uL (150-450); RBC 4.18 m/uL (3.80-5.40); RDW 16.3 % (11.5-15.5); WBC 10.3 k/uL (3.8-10.6)
[2021-11-16 13:35] LABS: ALT 20 U/L (4-34); AST 33 U/L (14-36); African American GFR (CKD) >90 (>60 ml/min/1.73 sqM); Albumin 3.5 g/dL (3.5-5.0); Alkaline Phosphatase 103 U/L (38-126); Anion Gap 8 mmol/L; Blood Urea Nitrogen 10 mg/dL (7-17); Calcium 8.5 mg/dL (8.4-10.2); Carbon Dioxide 34 mmol/L (22-30); Chloride 95 mmol/L (98-107); Glucose 283 mg/dL (74-99); Magnesium 1.3 mg/dL (1.6-2.3); Non-African American GFR(CKD) 87 (>60 ml/min/1.73 sqM); Potassium 3.4 mmol/L (3.5-5.1); Sodium 137 mmol/L (137-145); Total Bilirubin 0.9 mg/dL (0.2-1.3); Total Protein 6.8 g/dL (6.3-8.2)
[2021-11-16] MEDS ORDERED: MAGNESIUM OXIDE 400 MG TAB PO STA (14:24)
[2021-11-16] MEDS ORDERED: POTASSIUM CHLORIDE ER 20 MEQ TAB.ER PO STA (14:24)
[2021-11-16] MEDS ORDERED: DICYCLOMINE 10 MG CAP PO PRN (14:25)
[2021-11-16] MEDS ORDERED: methocarbamoL 500 MG TAB PO PRN (14:25)
[2021-11-16] MEDS ORDERED: FAMOTIDINE 20 MG TAB PO PRN (14:25)
[2021-11-16] MEDS ORDERED: DIGOXIN 125 MCG TAB PO ONE (14:45)
[2021-11-16] MEDS: GABAPENTIN 400 MG CAP PO SCH (14:48)
[2021-11-16] MEDS: CALCIUM CARB-VIT D 500 MG-5 MCG TAB PO SCH (17:37)
[2021-11-16] MEDS: METOPROLOL TARTRATE 50 MG TAB PO SCH (17:37)
[2021-11-16] MEDS: FUROSEMIDE 40 MG TAB PO SCH (17:38)
[2021-11-16] MEDS: DOCUSATE 100 MG CAP PO SCH (17:38)
[2021-11-16] MEDS: APIXABAN 5 MG TAB PO SCH (17:38)
[2021-11-16] MEDS: metFORMIN 500 MG TAB PO SCH (20:55)
[2021-11-16] MEDS: HYDROcodone/APAP 7.5-325MG 1 EACH TAB PO SCH (20:55)
[2021-11-16] MEDS: LEVOTHYROXINE 75 MCG TAB PO SCH (20:56)
[2021-11-17] MEDS: HYDROcodone/APAP 7.5-325MG 1 EACH TAB PO SCH ×5 (01:55→21:57)
[2021-11-17 02:12] LABS: Appearance,Urine Turbid (Clear); Bacteria,Urine Many /hpf; Bilirubin,Urine Negative (Negative); Blood,Urine Trace (Negative); Color,Urine Yellow; Glucose,Urine (UA) 3+ (Negative); Ketones,Urine Negative (Negative); Leukocyte Esterase,Urine Large (Negative); Nitrite,Urine Positive (Negative); Protein,Urine 1+ (Negative); RBC,Urine 2 /hpf (0-5); Specific Gravity,Urine 1.019 (1.001-1.035); Squamous Epithelial Cell,Urine 1 /hpf (0-4); Urobilinogen,Urine <2.0 mg/dL (<2.0); WBC,Urine >182 /hpf (0-5)
[2021-11-17 07:15] LABS: Glucose,Whole Blood 264 mg/dL (70-110)
[2021-11-17] MEDS: predniSONE 5 MG TAB PO SCH (07:57)
[2021-11-17] MEDS: AMIODARONE 100 MG TAB PO SCH (07:57)
[2021-11-17] MEDS: OXYBUTYNIN 10 MG TAB.ER.24 PO SCH (07:57)
[2021-11-17] MEDS: DOCUSATE 100 MG CAP PO SCH ×2 (07:58→17:29)
[2021-11-17] MEDS: MAGNESIUM OXIDE 400 MG TAB PO SCH (07:58)
[2021-11-17] MEDS: PANTOPRAZOLE 40 MG TABLET PO SCH (07:58)
[2021-11-17] MEDS: GABAPENTIN 400 MG CAP PO SCH ×2 (08:01→17:29)
[2021-11-17] MEDS: metFORMIN 500 MG TAB PO SCH ×2 (08:01→17:30)
[2021-11-17] MEDS: METOPROLOL TARTRATE 50 MG TAB PO SCH ×2 (08:04→17:29)
[2021-11-17] MEDS: FUROSEMIDE 40 MG TAB PO SCH ×2 (08:05→17:29)
[2021-11-17] MEDS: TAMSULOSIN 0.4 MG CAP.ER.24H PO SCH (08:06)
[2021-11-17] MEDS: APIXABAN 5 MG TAB PO SCH ×2 (08:06→17:29)
[2021-11-17] MEDS: INSULIN DETEMIR (LEVEMIR) 100 UNIT/ML SYR SQ SCH (08:06)
[2021-11-17] MEDS ORDERED: DEXTROSE 50% SYRINGE 50 ML IVP PRN ×4 (08:16→13:06)
--- NOTE | 2021-11-17 08:23 | P.HPIM ---
History of Present Illness H&P Date: 11/17/21 Chief Complaint: Status post fall elbow pain The patient is admitted for observation related to fall. She states she was in her bedroom and it was dark and she tripped and fell. Workup in the emergency room did not show anything acute discharged fracture. However significant immobility secondary to chronic back pain. History diabetes atrial fibrillation fibromyalgia depression elements as well. She hasn't been unable to transfer appropriately. Physical therapy will be consulted. He told patient that if she is unable to transfer properly she'll need to go back to [facility]. Review of Systems Constitutional: Reports chronic pain, Denies chills, Denies fever Eyes: denies blurred vision, denies pain Ears, nose, mouth and throat: Denies headache, Denies sore throat Cardiovascular: Denies chest pain, Denies shortness of breath Respiratory: Denies cough Past Medical History Past Medical History: Atrial Fibrillation, Coronary Artery Disease (CAD), Cancer, Diabetes Mellitus, Hyperlipidemia, Hypertension, Musculoskeletal Disorder, Neurologic Disorder, Osteoarthritis (OA), Pneumonia, Renal Disease, Rheumatoid Arthritis (RA), Skin Disorder, Thyroid Disorder Additional Past Medical History / Comment(s): Morbid obesity, chronic atrial fibrillation, diabetes mellitus type 2, hypertension, hyperlipidemia, spinal stenosis, osteoarthritis, hypothyroidism, hypertension, history of skin melanoma, history of bursitis with MRSA post I&D, rheumatoid arthritis, Sjogren 's disease, 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 Past Anesthesia/Blood Transfusion Reactions: No Reported Reaction Additional Past Anesthesia/Blood Transfusion Reaction / Comment(s): Pt has been told not to have anesthesia metabolized by the kidneys and has neurologic Sjog hipolito's with post anesthesia paralysis. Past Psychological History: No Psychological Hx Reported Additional Psychological History / Comment(s): Pt currently at [facility] for rehab which spouse states "has not been going well". She has stood with assist/walker only. Smoking Status: Former smoker Past Alcohol Use History: None Reported Additional Past Alcohol Use History / Comment(s): Pt started smoking in 1961 and quit in 1969 Past Drug Use History: None Reported - Past Family History Mother Family Medical History: CVA/TIA Additional Family Medical History / Comment(s): RUPTURED BOWEL Father Family Medical History: Cancer, Pneumonia Additional Family Medical History / Comment(s): ASPIRATIVE PNA Sister(s) Additional Family Medical History / Comment(s): at age 34 with lupus Medications and Allergies Home Medications Medication Instructions Recorded Confirmed Type RX: Latanoprost [Xalatan 0.005%] 1 drop BOTH EYES HS 08/11/17 11/16/21 History RX: Insulin Lispro [humaLOG See Protocol SQ AC-TID 09/25/18 11/16/21 History Kwikpen] RX: Multivitamins, Thera 1 tab PO DAILY 11/19/18 11/16/21 History [Multivitamin (formulary)] RX: predniSONE 5 mg PO DAILY 07/23/21 11/16/21 History RX: Amiodarone HCl [Cordarone] 100 mg PO DAILY 08/30/21 11/16/21 History RX: Apixaban [Eliquis] 5 mg PO BID@0900,1700 08/30/21 11/16/21 History RX: Dicyclomine [Bentyl] 10 mg PO Q8H PRN 08/30/21 11/16/21 History RX: Famotidine [Pepcid] 10 mg PO Q12H PRN 08/30/21 11/16/21 History RX: Insulin Glargine,Hum.rec.anlog 52 units SQ DAILY 08/30/21 11/16/21 History [Lantus Solostar Pen] RX: Magnesium Oxide 400 mg PO DAILY 08/30/21 11/16/21 History RX: Metoprolol Tartrate [Lopressor] 100 mg PO BID@0900,1700 08/30/21 11/16/21 History RX: Omeprazole 20 mg PO DAILY 08/30/21 11/16/21 History RX: Oxybutynin Chloride 10 mg PO DAILY 08/30/21 11/16/21 History [Oxybutynin Chloride ER] RX: Tamsulosin [Flomax] 0.4 mg PO DAILY 08/30/21 11/16/21 History RX: methocarbamoL [Methocarbamol] 1,000 mg PO Q6H PRN 08/30/21 11/16/21 History RX: polyethylene glycoL 3350 17 gm PO DAILY packet 09/06/21 11/16/21 Rx [Miralax] Calcium Citrate/Vitamin D3 1 tab PO BID@0900,1700 11/16/21 11/16/21 History [Citracal + D Maximum Caplet] Clotrimazole [Lotrimin AF] 1 applic TOPICAL DAILY PRN 11/16/21 11/16/21 History HYDROcodone/APAP 7.5-325MG [Lenore 1 tab PO QID 11/16/21 11/16/21 History 7.5-325] Levothyroxine Sodium [Synthroid] 137 mcg PO SUTHFRSA@209911/16/21 11/16/21 History Potassium Chloride ER [K-Dur 10] 10 meq PO DAILY@1200 11/16/21 11/16/21 History RX: Digoxin [Lanoxin] 125 mcg PO Q48H 11/16/21 11/16/21 History RX: Docusate [Colace] 100 mg PO BID@0900,1700 11/16/21 11/16/21 History RX: Furosemide [Lasix] 40 mg PO BID@0900,1700 11/16/21 11/16/21 History RX: Gabapentin 800 mg PO BID@0900,1700 11/16/21 11/16/21 History RX: Levothyroxine Sodium 150 mcg PO MOTUWE@209911/16/21 11/16/21 History RX: Nitroglycerin Sl Tabs 0.4 mg SL Q5M PRN 11/16/21 11/16/21 History [Nitrostat] metFORMIN HCL ER [Glucophage XR] 500 mg PO DAILY@169911/16/21 11/16/21 History Allergies Allergy/AdvReac Type Severity Reaction Status Date / Time adhesive Allergy Rash/Hives Verified 11/16/21 11:56 cephalexin [From Keflex] Allergy Rash/Hives Verified 11/16/21 11:56 grass pollen Allergy Unknown Verified 11/16/21 11:56 mold Allergy Unknown Verified 11/16/21 11:56 Sulfa (Sulfonamide Allergy Rash/Hives Verified 11/16/21 11:56 Antibiotics) newspaper ink Allergy Mild Unknown Uncoded 11/16/21 11:56 Physical Exam Vitals: Vital Signs Temp Pulse Pulse Resp BP BP Pulse Ox 11/17/21 07:37 98.4 F 70 15 127/64 97 11/17/21 02:04 98.3 F 69 18 103/58 97 11/16/21 20:00 19 11/16/21 19:08 98.5 F 73 19 115/57 98 11/16/21 18:26 98.7 F 68 110 H 16 145/68 117/70 99 11/16/21 16:27 98.4 F 100 20 141/48 99 11/16/21 14:54 98.6 F 66 20 133/65 94 L 11/16/21 13:17 97.8 F 74 20 143/59 99 11/16/21 08:24 60 16 118/65 98 Intake and Output 11/16/21 11/17/21 11/17/21 22:59 06:59 14:59 Intake Total 118 Output Total 350 Balance 118 -350 Intake: Oral 118 Output: Urine 350 Other: # Voids 0 Weight 122.924 kg - Constitutional General appearance: morbidly obese - EENT Eyes: no abnormal pupil - Neck Neck: no lymphadenopathy - Respiratory Respiratory: bilateral: CTA - Cardiovascular Rhythm: irregularly irregular Heart sounds: normal: S1, S2 Abnormal Heart Sounds: no S3 Gallop - Gastrointestinal General gastrointestinal: soft, no tenderness - Integumentary Edema of the left lower external - Psychiatric Psychiatric: appropriate affect Results CBC & Chem 7: 11/16/21 13:16 11/16/21 13:16 Labs: Abnormal Lab Results - Last 24 Hours (Table) 11/16/21 11/16/21 11/16/21 Range/Units 10:21 13:16 13:16 MCHC 30.7 L (31.0-37.0) g/dL RDW 16.3 H (11.5-15.5) % Neutrophils # 8.3 H (1.3-7.7) k/uL Potassium 3.4 L (3.5-5.1) mmol/L Chloride 95 L (98-107) mmol/L Carbon Dioxide 34 H (22-30) mmol/L Glucose 283 H (74-99) mg/dL POC Glucose (mg/dL) 272 H (70-110) mg/dL Magnesium 1.3 L (1.6-2.3) mg/dL Urine Appearance (Clear) Urine Protein (Negative) Urine Glucose (UA) (Negative) Urine Blood (Negative) Urine Nitrite (Negative) Ur Leukocyte Esterase (Negative) Urine WBC (0-5) /hpf Urine WBC Clumps (None) /hpf Urine Bacteria (None) /hpf 11/17/21 11/17/21 Range/Units 02:00 07:13 MCHC (31.0-37.0) g/dL RDW (11.5-15.5) % Neutrophils # (1.3-7.7) k/uL Potassium (3.5-5.1) mmol/L Chloride (98-107) mmol/L Carbon Dioxide (22-30) mmol/L Glucose (74-99) mg/dL POC Glucose (mg/dL) 264 H (70-110) mg/dL Magnesium (1.6-2.3) mg/dL Urine Appearance Turbid H (Clear) Urine Protein 1+ H (Negative) Urine Glucose (UA) 3+ H (Negative) Urine Blood Trace H (Negative) Urine Nitrite Positive H (Negative) Ur Leukocyte Esterase Large H (Negative) Urine WBC >182 H (0-5) /hpf Urine WBC Clumps Occasional H (None) /hpf Urine Bacteria Many H (None) /hpf Assessment and Plan (1) Back pain Current Visit: Yes Status: Acute Code(s): M54.9 - DORSALGIA, UNSPECIFIED SNOMED Code(s): 051110495 (2) Fall Current Visit: Yes Status: Acute Code(s): W19.XXXA - UNSPECIFIED FALL, INITIAL ENCOUNTER SNOMED Code(s): 4364194 (3) Inability to perform activities of daily living Current Visit: Yes Status: Acute Code(s): Z78.9 - OTHER SPECIFIED HEALTH STATUS SNOMED Code(s): 566706604 (4) Unable to ambulate Current Visit: Yes Status: Acute Code(s): R26.2 - DIFFICULTY IN WALKING, NOT ELSEWHERE CLASSIFIED SNOMED Code(s): 492512115 (5) Chronic atrial fibrillation Current Visit: No Status: Acute Code(s): I48.2 - CHRONIC ATRIAL FIBRILLATION * DO NOT USE * SNOMED Code(s): 427096102 (6) Diabetes Current Visit: No Status: Acute Code(s): E11.9 - TYPE 2 DIABETES MELLITUS WITHOUT COMPLICATIONS SNOMED Code(s): 62253894 (7) UTI (urinary tract infection) Current Visit: No Status: Acute Code(s): N39.0 - URINARY TRACT INFECTION, SITE NOT SPECIFIED SNOMED Code(s): 96442505 Plan: Empiric Macrobid. Sliding scale. Physical therapy. Home versus placement. Reconcile medications. The patient is otherwise full code.
[2021-11-17] MEDS: NITROFURANTOIN MONOHYD/M-CRYST 100 MG CAP PO SCH ×2 (10:04→21:57)
[2021-11-17] MEDS: CALCIUM CARB-VIT D 500 MG-5 MCG TAB PO SCH ×2 (10:06→18:21)
[2021-11-17 12:17] LABS: Glucose,Whole Blood 334 mg/dL (70-110)
[2021-11-17] MEDS: INSULIN ASPART (NovoLOG) 100 UNIT/ML VIAL SQ SCH ×3 (13:20→21:57)
[2021-11-17] MEDS: POTASSIUM CHLORIDE ER 10 MEQ TAB.ER.PRT PO SCH (13:29)
[2021-11-17 17:58] LABS: Glucose,Whole Blood 259 mg/dL (70-110)
[2021-11-17 21:12] LABS: Glucose,Whole Blood 242 mg/dL (70-110)
[2021-11-17] MEDS: LEVOTHYROXINE 75 MCG TAB PO SCH (21:56)
[2021-11-18 07:33] LABS: Glucose,Whole Blood 172 mg/dL (70-110)
[2021-11-18] MEDS ORDERED: DIGOXIN 125 MCG TAB PO SCH (09:00)
[2021-11-18] MEDS: GABAPENTIN 400 MG CAP PO SCH ×2 (09:03→17:12)
[2021-11-18] MEDS: HYDROcodone/APAP 7.5-325MG 1 EACH TAB PO SCH ×4 (09:03→21:25)
[2021-11-18] MEDS: metFORMIN 500 MG TAB PO SCH ×2 (09:19→17:12)
[2021-11-18] MEDS: METOPROLOL TARTRATE 50 MG TAB PO SCH ×2 (09:19→17:12)
[2021-11-18] MEDS: INSULIN ASPART (NovoLOG) 100 UNIT/ML VIAL SQ SCH ×4 (09:19→21:28)
[2021-11-18] MEDS: APIXABAN 5 MG TAB PO SCH ×2 (09:20→17:12)
[2021-11-18] MEDS: PANTOPRAZOLE 40 MG TABLET PO SCH (09:20)
[2021-11-18] MEDS: DOCUSATE 100 MG CAP PO SCH ×2 (09:20→17:12)
[2021-11-18] MEDS: CALCIUM CARB-VIT D 500 MG-5 MCG TAB PO SCH ×2 (09:20→17:12)
[2021-11-18] MEDS: MAGNESIUM OXIDE 400 MG TAB PO SCH (09:20)
[2021-11-18] MEDS: INSULIN DETEMIR (LEVEMIR) 100 UNIT/ML SYR SQ SCH (09:21)
[2021-11-18] MEDS: AMIODARONE 100 MG TAB PO SCH (09:22)
[2021-11-18] MEDS: FUROSEMIDE 40 MG TAB PO SCH ×2 (09:30→17:17)
[2021-11-18] MEDS: NITROFURANTOIN MONOHYD/M-CRYST 100 MG CAP PO SCH ×2 (09:31→22:52)
[2021-11-18] MEDS: OXYBUTYNIN 10 MG TAB.ER.24 PO SCH (09:32)
[2021-11-18] MEDS: predniSONE 5 MG TAB PO SCH (09:32)
[2021-11-18] MEDS: TAMSULOSIN 0.4 MG CAP.ER.24H PO SCH (09:34)
[2021-11-18 12:18] LABS: Glucose,Whole Blood 216 mg/dL (70-110)
[2021-11-18] MEDS: POTASSIUM CHLORIDE ER 10 MEQ TAB.ER.PRT PO SCH (15:00)
[2021-11-18 16:54] LABS: Glucose,Whole Blood 258 mg/dL (70-110)
[2021-11-18 20:23] LABS: Glucose,Whole Blood 252 mg/dL (70-110)
--- NOTE | 2021-11-18 20:54 | P.PN ---
Subjective Progress Note Date: 11/18/21 Principal diagnosis: Mobility The patient is an 81-year-old white female essentially admitted for immobility. Status post fall. She has poor depth perception and fell in her house. History of chronic back pain. She is admitted essentially for therapy and possible placement back to [facility]. Objective - Vital Signs Vital signs: Vital Signs Temp 98.2 F 11/18/21 20:00 Pulse 64 11/18/21 20:00 Resp 22 11/18/21 20:00 BP 122/51 11/18/21 20:00 Pulse Ox 94 L 11/18/21 20:00 FiO2 Intake & Output 11/18/21 11/18/21 11/19/21 06:59 18:59 06:59 Intake Total 240 Output Total 600 1880 Balance -600 -1640 Intake: Oral 240 Output: Urine 600 1880 Other: Voiding Method External Catheter External Catheter External Catheter # Voids 2 - Constitutional General appearance: Present: obese - EENT Eyes: Absent: abnormal pupil - Neck Neck: Absent: lymphadenopathy - Respiratory Respiratory: bilateral: diminished - Cardiovascular Rhythm: irregularly irregular Heart sounds: normal: S1, S2 Abnormal Heart Sounds: Absent: S3 Gallop - Gastrointestinal General gastrointestinal: Present: soft. Absent: tenderness - Musculoskeletal Musculoskeletal: Present: generalized weakness - Labs CBC & Chem 7: 11/16/21 13:16 11/16/21 13:16 Labs: Abnormal Lab Results - Last 24 Hours (Table) 11/17/21 11/18/21 11/18/21 Range/Units 21:11 07:32 12:17 POC Glucose (mg/dL) 242 H 172 H 216 H (70-110) mg/dL 11/18/21 11/18/21 Range/Units 16:52 20:21 POC Glucose (mg/dL) 258 H 252 H (70-110) mg/dL Microbiology - Last 24 Hours (Table) 11/17/21 02:00 Urine Culture - Preliminary Urine,Voided Gram Neg Bacilli Assessment and Plan (1) Back pain Current Visit: Yes Status: Acute Code(s): M54.9 - DORSALGIA, UNSPECIFIED SNOMED Code(s): 514392864 (2) Fall Current Visit: Yes Status: Acute Code(s): W19.XXXA - UNSPECIFIED FALL, INITIAL ENCOUNTER SNOMED Code(s): 3621112 (3) Inability to perform activities of daily living Current Visit: Yes Status: Acute Code(s): Z78.9 - OTHER SPECIFIED HEALTH STATUS SNOMED Code(s): 786619774 (4) Unable to ambulate Current Visit: Yes Status: Acute Code(s): R26.2 - DIFFICULTY IN WALKING, NOT ELSEWHERE CLASSIFIED SNOMED Code(s): 131004239 (5) Chronic atrial fibrillation Current Visit: No Status: Acute Code(s): I48.2 - CHRONIC ATRIAL FIBRILLATION * DO NOT USE * SNOMED Code(s): 907710320 (6) Diabetes Current Visit: No Status: Acute Code(s): E11.9 - TYPE 2 DIABETES MELLITUS WITHOUT COMPLICATIONS SNOMED Code(s): 27299573 (7) UTI (urinary tract infection) Current Visit: No Status: Acute Code(s): N39.0 - URINARY TRACT INFECTION, SITE NOT SPECIFIED SNOMED Code(s): 23771746 Plan: Anticipate home health care versus placement back to [facility]. Continue PT. Prep anticipate discharge in the next 24 hours.
[2021-11-18] MEDS ORDERED: LEVOTHYROXINE 137 MCG TAB PO SCH (21:00)
[2021-11-19 07:24] LABS: Glucose,Whole Blood 154 mg/dL (70-110)
[2021-11-19] MEDS: APIXABAN 5 MG TAB PO SCH ×2 (08:32→17:38)
[2021-11-19] MEDS: CALCIUM CARB-VIT D 500 MG-5 MCG TAB PO SCH ×2 (08:32→17:38)
[2021-11-19] MEDS: FUROSEMIDE 40 MG TAB PO SCH ×2 (08:32→17:38)
[2021-11-19] MEDS: METOPROLOL TARTRATE 50 MG TAB PO SCH ×2 (08:32→17:38)
[2021-11-19] MEDS: INSULIN ASPART (NovoLOG) 100 UNIT/ML VIAL SQ SCH ×3 (08:33→18:05)
[2021-11-19] MEDS: AMIODARONE 100 MG TAB PO SCH (08:33)
[2021-11-19] MEDS: metFORMIN 500 MG TAB PO SCH ×2 (08:33→17:39)
[2021-11-19] MEDS: DOCUSATE 100 MG CAP PO SCH ×2 (08:33→17:38)
[2021-11-19] MEDS: GABAPENTIN 400 MG CAP PO SCH ×2 (08:33→17:38)
[2021-11-19] MEDS: TAMSULOSIN 0.4 MG CAP.ER.24H PO SCH (08:34)
[2021-11-19] MEDS: PANTOPRAZOLE 40 MG TABLET PO SCH (08:34)
[2021-11-19] MEDS: HYDROcodone/APAP 7.5-325MG 1 EACH TAB PO SCH ×3 (08:34→18:04)
[2021-11-19] MEDS: NITROFURANTOIN MONOHYD/M-CRYST 100 MG CAP PO SCH (08:34)
[2021-11-19] MEDS: MAGNESIUM OXIDE 400 MG TAB PO SCH (08:35)
[2021-11-19] MEDS: predniSONE 5 MG TAB PO SCH (08:35)
[2021-11-19] MEDS: OXYBUTYNIN 10 MG TAB.ER.24 PO SCH (08:35)
[2021-11-19] MEDS: INSULIN DETEMIR (LEVEMIR) 100 UNIT/ML SYR SQ SCH (08:36)
[2021-11-19 10:03] VITALS: RESP 18
[2021-11-19 12:12] LABS: Glucose,Whole Blood 167 mg/dL (70-110)
[2021-11-19] MEDS: POTASSIUM CHLORIDE ER 10 MEQ TAB.ER.PRT PO SCH (13:02)
--- NOTE | 2021-11-19 15:59 | P.DS ---
Providers Date of admission: 11/16/21 12:07 Attending physician: Nicholas Hart Primary care physician: Nicholas Hart - Discharge Diagnosis(es) (1) Back pain Current Visit: Yes Status: Acute (2) Fall Current Visit: Yes Status: Acute (3) Inability to perform activities of daily living Current Visit: Yes Status: Acute (4) Unable to ambulate Current Visit: Yes Status: Acute (5) Chronic atrial fibrillation Current Visit: No Status: Acute (6) Diabetes Current Visit: No Status: Acute (7) UTI (urinary tract infection) Current Visit: No Status: Acute Hospital Course: This is a discharge summary an 81-year-old white female essentially admitted status post fall with significant immobility. She was recently discharged from [facility] with similar symptomatology. She was home for about a week and ended up having another fall. She has poor depth perception and she fell in her house at night in the dark. Patient could not ambulate properly because of her severe back and degenerative disc disease. Previous surgery was otherwise noted. Because of her multiplicity of elements of chronic pain, rehab was instituted and she would be retransferred to [facility] for appropriate rehabilitation. Patient Condition at Discharge: Fair Plan - Discharge Summary New Discharge Prescriptions: New Nitrofurantoin Monohyd/M-Cryst [Macrobid] 100 mg PO BID #0 cap Continue Latanoprost [Xalatan 0.005%] 1 drop BOTH EYES HS Insulin Lispro [humaLOG Kwikpen] See Protocol SQ AC-TID Multivitamins, Thera [Multivitamin (formulary)] 1 tab PO DAILY Dicyclomine [Bentyl] 10 mg PO Q8H PRN PRN Reason: CRAMPS/STOMACH PAIN Insulin Glargine,Hum.rec.anlog [Lantus Solostar Pen] 52 units SQ DAILY Magnesium Oxide 400 mg PO DAILY Omeprazole 20 mg PO DAILY Tamsulosin [Flomax] 0.4 mg PO DAILY Levothyroxine Sodium 150 mcg PO MOTUWE@2100 Docusate [Colace] 100 mg PO BID@0900,1700 Calcium Citrate/Vitamin D3 [Citracal + D Maximum Caplet] 1 tab PO BID@0900,1700 predniSONE 5 mg PO DAILY Amiodarone HCl [Cordarone] 100 mg PO DAILY Apixaban [Eliquis] 5 mg PO BID@0900,1700 Famotidine [Pepcid] 10 mg PO Q12H PRN PRN Reason: Heartburn methocarbamoL [Methocarbamol] 1,000 mg PO Q6H PRN PRN Reason: Pain Metoprolol Tartrate [Lopressor] 100 mg PO BID@0900,1700 Oxybutynin Chloride [Oxybutynin Chloride ER] 10 mg PO DAILY polyethylene glycoL 3350 [Miralax] 17 gm PO DAILY packet Potassium Chloride ER [K-Dur 10] 10 meq PO DAILY@1200 Nitroglycerin Sl Tabs [Nitrostat] 0.4 mg SL Q5M PRN PRN Reason: Chest Pain metFORMIN HCL ER [Glucophage XR] 500 mg PO DAILY@1700 Levothyroxine Sodium [Synthroid] 137 mcg PO SUTHFRSA@2100 Furosemide [Lasix] 40 mg PO BID@0900,1700 Digoxin [Lanoxin] 125 mcg PO Q48H Clotrimazole [Lotrimin AF] 1 applic TOPICAL DAILY PRN PRN Reason: fungas Changed Gabapentin 800 mg PO BID@0900,1700 #6 tab HYDROcodone/APAP 7.5-325MG [[place] 7.5-325] 1 tab PO QID #12 tab Discharge Medication List Latanoprost [Xalatan 0.005%] 1 drop BOTH EYES HS 08/11/17 [History] Insulin Lispro [humaLOG Kwikpen] See Protocol SQ AC-TID 09/25/18 [History] Multivitamins, Thera [Multivitamin (formulary)] 1 tab PO DAILY 11/19/18 [History] predniSONE 5 mg PO DAILY 07/23/21 [History] Amiodarone HCl [Cordarone] 100 mg PO DAILY 08/30/21 [History] Apixaban [Eliquis] 5 mg PO BID@0900,1700 08/30/21 [History] Dicyclomine [Bentyl] 10 mg PO Q8H PRN 08/30/21 [History] Famotidine [Pepcid] 10 mg PO Q12H PRN 08/30/21 [History] Insulin Glargine,Hum.rec.anlog [Lantus Solostar Pen] 52 units SQ DAILY 08/30/21 [History] Magnesium Oxide 400 mg PO DAILY 08/30/21 [History] Metoprolol Tartrate [Lopressor] 100 mg PO BID@0900,1700 08/30/21 [History] Omeprazole 20 mg PO DAILY 08/30/21 [History] Oxybutynin Chloride [Oxybutynin Chloride ER] 10 mg PO DAILY 08/30/21 [History] Tamsulosin [Flomax] 0.4 mg PO DAILY 08/30/21 [History] methocarbamoL [Methocarbamol] 1,000 mg PO Q6H PRN 08/30/21 [History] polyethylene glycoL 3350 [Miralax] 17 gm PO DAILY packet 09/06/21 [Rx] Calcium Citrate/Vitamin D3 [Citracal + D Maximum Caplet] 1 tab PO BID@0900,1700 11/16/21 [History] Clotrimazole [Lotrimin AF] 1 applic TOPICAL DAILY PRN 11/16/21 [History] Digoxin [Lanoxin] 125 mcg PO Q48H 11/16/21 [History] Docusate [Colace] 100 mg PO BID@0900,1700 11/16/21 [History] Furosemide [Lasix] 40 mg PO BID@0900,1700 11/16/21 [History] Levothyroxine Sodium 150 mcg PO MOTUWE@209911/16/21 [History] Levothyroxine Sodium [Synthroid] 137 mcg PO SUTHFRSA@209911/16/21 [History] Nitroglycerin Sl Tabs [Nitrostat] 0.4 mg SL Q5M PRN 11/16/21 [History] Potassium Chloride ER [K-Dur 10] 10 meq PO DAILY@1200 11/16/21 [History] metFORMIN HCL ER [Glucophage XR] 500 mg PO DAILY@169911/16/21 [History] Nitrofurantoin Monohyd/M-Cryst [Macrobid] 100 mg PO BID #0 cap 11/18/21 [Rx] Gabapentin 800 mg PO BID@0900,1700 #6 tab 11/19/21 [Rx] HYDROcodone/APAP 7.5-325MG [[place] 7.5-325] 1 tab PO QID #12 tab 11/19/21 [Rx] Follow up Appointment(s)/Referral(s): Nicholas Hart MD [Primary Care Provider] - 1-2 days Activity/Diet/Wound Care/Special Instructions: Please return to the Emergency Department if symptoms worsen or any other concerns. Discharge Disposition: TRANSFER TO SNF/ECF
[2021-11-19 16:16] VITALS: BP 109/62; PULSE 67; TEMP 97.4
[2021-11-19 17:49] LABS: Glucose,Whole Blood 217 mg/dL (70-110)
== END 2021-11-19 19:55 ==
LOC: EEVIPCON 08:22 → EC 08:22 → 6NMEDSUR 12:07
PROVIDERS: ADMIT Family Medicine; ATTEND Family Medicine
DX: M54.9 Dorsalgia, unspecified (principal); G89.29 Other chronic pain; N39.0 Urinary tract infection, site not specified; R26.2 Difficulty in walking, not elsewhere classified; M41.86 Other forms of scoliosis, lumbar region; M51.36 Other intervertebral disc degeneration, lumbar region; I25.10 Atherosclerotic heart disease of native coronary artery without angina pectoris; E11.9 Type 2 diabetes mellitus without complications; E78.5 Hyperlipidemia, unspecified; I10 Essential (primary) hypertension; M06.9 Rheumatoid arthritis, unspecified; E66.9 Obesity, unspecified; I48.20 Chronic atrial fibrillation, unspecified; M48.00 Spinal stenosis, site unspecified; E03.9 Hypothyroidism, unspecified; M35.00 Sjogren syndrome, unspecified; Z98.42 Cataract extraction status, left eye; Z79.899 Other long term (current) drug therapy; Z96.642 Presence of left artificial hip joint; Z85.820 Personal history of malignant melanoma of skin; Z98.1 Arthrodesis status; Z79.890 Hormone replacement therapy; Z79.01 Long term (current) use of anticoagulants; Z79.4 Long term (current) use of insulin; Z88.2 Allergy status to sulfonamides; Z98.41 Cataract extraction status, right eye; Z96.1 Presence of intraocular lens; Z87.891 Personal history of nicotine dependence; Z82.3 Family history of stroke; Z80.9 Family history of malignant neoplasm, unspecified; Z79.84 Long term (current) use of oral hypoglycemic drugs; Z68.33 Body mass index [BMI] 33.0-33.9, adult
CPT/HCPCS: 99285; 36415; 97530 ×2; 97162; 97535; 97166; 80053; 83735; 85025; 81001; 87086; 87077; 87186; 83036 ×2; 72100; G0378 ×4; J7512 ×3

== ENCOUNTER 2021-12-15 01:34 | Inpatient (IN) | payer MEDICARE ==
--- NOTE | 2021-12-15 02:00 | ED ---
General Adult HPI - General Source: patient Mode of arrival: EMS <Bruna Pedroza - Last Filed: 12/15/21 04:07> <Burton Colindres - Last Filed: 12/15/21 05:31> - General Chief complaint: Fever Stated complaint: Weakness Time Seen by Provider: 12/15/21 01:41 - History of Present Illness Initial comments: Patient is an 81-year-old female presents to the emergency department via EMS with concerns regarding chills. She reports that she began having severe chills of approximately 9 PM this evening and symptoms have worsened. She is also complaining of continued decreased mobility and chronic back pain without an acute flare. She denies any cough, shortness of breath, chest pain, abdominal pain, nausea, vomiting, diarrhea, headache or dizziness. She complains of generalized weakness but denies any focal neurological deficits. She has a significant past medical history that includes atrial fibrillation violation, CAD, diabetes, hypertension, hyperlipidemia, spinal stenosis, hypothyroid, rheumatoid arthritis, Sjogren's disease, renal impairment, and skin cancer. (Bruna Pedroza) - Related Data Home Medications Medication Instructions Recorded Confirmed Latanoprost [Xalatan 0.005%] 1 drop BOTH EYES HS 08/11/17 11/16/21 Insulin Lispro [humaLOG Kwikpen] See Protocol SQ AC-TID 09/25/18 11/16/21 Multivitamins, Thera [Multivitamin 1 tab PO DAILY 11/19/18 11/16/21 (formulary)] predniSONE 5 mg PO DAILY 07/23/21 11/16/21 Amiodarone HCl [Cordarone] 100 mg PO DAILY 08/30/21 11/16/21 Apixaban [Eliquis] 5 mg PO BID@0900,1700 08/30/21 11/16/21 Dicyclomine [Bentyl] 10 mg PO Q8H PRN 08/30/21 11/16/21 Famotidine [Pepcid] 10 mg PO Q12H PRN 08/30/21 11/16/21 Insulin Glargine,Hum.rec.anlog 52 units SQ DAILY 08/30/21 11/16/21 [Lantus Solostar Pen] Magnesium Oxide 400 mg PO DAILY 08/30/21 11/16/21 Metoprolol Tartrate [Lopressor] 100 mg PO BID@0900,1700 08/30/21 11/16/21 Omeprazole 20 mg PO DAILY 08/30/21 11/16/21 Oxybutynin Chloride [Oxybutynin 10 mg PO DAILY 08/30/21 11/16/21 Chloride ER] Tamsulosin [Flomax] 0.4 mg PO DAILY 08/30/21 11/16/21 methocarbamoL [Methocarbamol] 1,000 mg PO Q6H PRN 08/30/21 11/16/21 Calcium Citrate/Vitamin D3 1 tab PO BID@0900,1700 11/16/21 11/16/21 [Citracal + D Maximum Caplet] Clotrimazole [Lotrimin AF] 1 applic TOPICAL DAILY PRN 11/16/21 11/16/21 Digoxin [Lanoxin] 125 mcg PO Q48H 11/16/21 11/16/21 Docusate [Colace] 100 mg PO BID@0900,169911/16/21 11/16/21 Furosemide [Lasix] 40 mg PO BID@0900,17011/16/21 11/16/21 Levothyroxine Sodium 150 mcg PO MOTUWE@209911/16/21 11/16/21 Levothyroxine Sodium [Synthroid] 137 mcg PO SUTHFRSA@209911/16/21 11/16/21 Nitroglycerin Sl Tabs [Nitrostat] 0.4 mg SL Q5M PRN 11/16/21 11/16/21 Potassium Chloride ER [K-Dur 10] 10 meq PO DAILY@1200 11/16/21 11/16/21 metFORMIN HCL ER [Glucophage XR] 500 mg PO DAILY@17011/16/21 11/16/21 Previous Rx's Medication Instructions Recorded polyethylene glycoL 3350 [Miralax] 17 gm PO DAILY packet 09/06/21 Nitrofurantoin Monohyd/M-Cryst 100 mg PO BID #0 cap 11/18/21 [Macrobid] Gabapentin 800 mg PO BID@0900,1700 #6 tab 11/19/21 HYDROcodone/APAP 7.5-325MG [[place] 1 tab PO QID #12 tab 11/19/21 7.5-325] Allergies Allergy/AdvReac Type Severity Reaction Status Date / Time adhesive Allergy Rash/Hives Verified 11/16/21 11:56 cephalexin [From Keflex] Allergy Rash/Hives Verified 11/16/21 11:56 grass pollen Allergy Unknown Verified 11/16/21 11:56 mold Allergy Unknown Verified 11/16/21 11:56 Sulfa (Sulfonamide Allergy Rash/Hives Verified 11/16/21 11:56 Antibiotics) newspaper ink Allergy Mild Unknown Uncoded 11/16/21 11:56 Review of Systems ROS Other: All systems not noted in ROS Statement are negative. <Bruna Pedroza - Last Filed: 12/15/21 04:07> ROS Other: All systems not noted in ROS Statement are negative. <Burton Colindres - Last Filed: 12/15/21 05:31> ROS Statement: Those systems with pertinent positive or pertinent negative responses have been documented in the HPI. Past Medical History Past Medical History: Atrial Fibrillation, Coronary Artery Disease (CAD), Cancer, Diabetes Mellitus, Hyperlipidemia, Hypertension, Musculoskeletal Disorder, Neurologic Disorder, Osteoarthritis (OA), Pneumonia, Renal Disease, Rheumatoid Arthritis (RA), Skin Disorder, Thyroid Disorder Additional Past Medical History / Comment(s): Morbid obesity, chronic atrial fibrillation, diabetes mellitus type 2, hypertension, hyperlipidemia, spinal stenosis, osteoarthritis, hypothyroidism, hypertension, history of skin melanoma, history of bursitis with MRSA post I&D, rheumatoid arthritis, Sjogren's disease, 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 without any indication of ILD related to RA, History of Any Multi-Drug Resistant Organisms: MRSA Date of last positivie culture/infection: 02/27/14 MDRO Source:: Sputum Past Surgical History: Back Surgery, Breast Surgery, Heart Catheterization, Yun nt Replacement, Orthopedic Surgery Additional Past Surgical History / Comment(s): Bilateral cataracts with lens implants, arthroscopies to lt wrist, gualberto knees, gualberto ankles, gualberto hips, lt hip replacment and redone, L/R shoulder sxs, rt breast bx-benign, egd/colonoscopy, skin cancer removal L arm. Past Anesthesia/Blood Transfusion Reactions: No Reported Reaction Additional Past Anesthesia/Blood Transfusion Reaction / Comment(s): Pt has been told not to have anesthesia metabolized by the kidneys and has neurologic Sjogren's with post anesthesia paralysis. Past Psychological History: No Psychological Hx Reported Additional Psychological History / Comment(s): Pt currently at [facility] for rehab which spouse states "has not been going well". She has stood with assist/walker only. Smoking Status: Former smoker Past Alcohol Use History: None Reported Additional Past Alcohol Use History / Comment(s): Pt started smoking in 1961 and quit in 1969 Past Drug Use History: None Reported - Past Family History Mother Family Medical History: CVA/TIA Additional Family Medical History / Comment(s): RUPTURED BOWEL Father Family Medical History: Cancer, Pneumonia Additional Family Medical History / Comment(s): ASPIRATIVE PNA Sister(s) Additional Family Medical History / Comment(s): at age 34 with lupus <Bruna Pedroza - Last Filed: 12/15/21 04:07> General Exam General appearance: alert, in no apparent distress, obese Head exam: Present: atraumatic, normocephalic, normal inspection Eye exam: Present: normal appearance, PERRL. Absent: scleral icterus, conjunctival injection ENT exam: Present: normal exam, mucous membranes moist Neck exam: Present: normal inspection Respiratory exam: Present: normal lung sounds bilaterally. Absent: respiratory distress, wheezes, rales, rhonchi, stridor Cardiovascular Exam: Present: regular rate, irregular rhythm. Absent: systolic murmur, diastolic murmur, rubs, gallop, clicks GI/Abdominal exam: Present: soft, normal bowel sounds. Absent: distended, tenderness, guarding, rebound, rigid Extremities exam: Present: other (pedal deformities noted). Absent: pedal edema, joint swelling Back exam: Present: other (unable to assess due to body habitus) Neurological exam: Present: alert, oriented X3, CN II-XII intact Psychiatric exam: Present: flat affect Skin exam: Present: warm, dry, intact, normal color. Absent: rash <Bruna Pedroza - Last Filed: 12/15/21 04:07> Course Vital Signs 12/15/21 12/15/21 01:35 04:43 Temperature 99.3 F 99.6 F Pulse Rate 98 63 Respiratory 18 20 Rate Blood Pressure 127/62 125/58 O2 Sat by Pulse 92 L 95 Oximetry Medical Decision Making - Lab Data Result diagrams: 12/15/21 02:22 12/15/21 02:22 - Radiology Data Radiology results: report reviewed, image reviewed <Bruna Pedroza - Last Filed: 12/15/21 04:07> - Lab Data Result diagrams: 12/15/21 02:22 12/15/21 02:22 <Burton Colindres - Last Filed: 12/15/21 05:31> - Medical Decision Making 81-year-old female presenting to the emergency room with onset of chills earlier this evening. Also reports generalized weakness and chronic back pain. No other specific complaints. Low-grade temperature and mild hypoxia noted. Will check CBC, CMP, blood cultures, lactic acid, urinalysis, Covid swab, influenza swab, and chest x-ray. Hypoxia mild setting 92 on room air no need for supplemental oxygen. No evidence of wheeze no indication for nebulized treatment or steroids at this time. Fever mild at 99.2, no need for antipyretics at this time. Will monitor. CBC showed slightly elevated white blood cell count and mild chronic anemia. CMP showed slightly elevated AST, ALT and alk phos; bilirubin normal. Renal function stable. Still awaiting urinalysis. Chest x-ray negative for acute disease. COVID and influenza not detected. Will check CT of the abdomen in the setting of mild leukocytosis with elevated AST, ALT and alk phos. (Bruna Pedroza) Low-grade fevers, chills, as well mildly elevated LFTs and alk phos above baseline, decision was made to obtain a CT abdomen and pelvis.. Patient signed out to me pending results. CT abdomen and pelvis revealed Stranding in the right upper quadrant around the gallbladder as well as findings consistent with acute and chronic cholecystitis. There is worsening gallbladder wall thickening. No dilated ducts. There is also a small irregular 3 cm fluid collection posterior to the gallbladder fundus of unknown etiology. Gallbladder rupture as possible. Aggressive gallbladder tumor is also possible. Follow-up is recommended. On evaluation of the patient by myself, patient's abdominal exam is relatively unremarkable. No concern for acute abdomen at this time. I did recommend admis gregory and initiation of antibiotics due to the findings on CT. She was in agreement this plan.Patient does not have an acute abdomen at this time.I spoke with surgery on-call, Dr. Cruz who was in agreement with the plan. He requested the patient remain nothing by mouth.. He will evaluate the patient the morning. I'll consult the patient's PCP Dr. Hart for medical management. We will hold her anticoagulation at this time and event that the patient goes for surgery. This can be restarted later. Patient was admitted in stable condition. (Burton Colindres) - Lab Data Lab Results 12/15/21 12/15/21 12/15/21 Range/Units 02:22 02:22 02:22 WBC 11.4 H (3.8-10.6) k/uL RBC 3.83 (3.80-5.40) m/uL Hgb 10.9 L (11.4-16.0) gm/dL Hct 34.2 (34.0-46.0) % MCV 89.3 (80.0-100.0) fL MCH 28.4 (25.0-35.0) pg MCHC 31.8 (31.0-37.0) g/dL RDW 15.5 (11.5-15.5) % Plt Count 194 (150-450) k/uL MPV 8.3 Neutrophils % 80 % Lymphocytes % 11 % Monocytes % 5 % Eosinophils % 2 % Basophils % 1 % Neutrophils # 9.2 H (1.3-7.7) k/uL Lymphocytes # 1.3 (1.0-4.8) k/uL Monocytes # 0.6 (0-1.0) k/uL Eosinophils # 0.2 (0-0.7) k/uL Basophils # 0.1 (0-0.2) k/uL Hypochromasia Moderate Sodium 133 L (137-145) mmol/L Potassium 4.1 (3.5-5.1) mmol/L Chloride 99 (98-107) mmol/L Carbon Dioxide 25 (22-30) mmol/L Anion Gap 9 mmol/L BUN 11 (7-17) mg/dL Creatinine 0.63 (0.52-1.04) mg/dL Est GFR (CKD-EPI)AfAm >90 (>60 ml/min/1.73 sqM) Est GFR (CKD-EPI)NonAf 85 (>60 ml/min/1.73 sqM) Glucose 220 H (74-99) mg/dL Plasma Lactic Acid Cj (0.7-2.0) mmol/L Calcium 8.3 L (8.4-10.2) mg/dL Total Bilirubin 1.0 (0.2-1.3) mg/dL AST 107 H (14-36) U/L ALT 50 H (4-34) U/L Alkaline Phosphatase 225 H (38-126) U/L Total Protein 6.4 (6.3-8.2) g/dL Albumin 3.2 L (3.5-5.0) g/dL Coronavirus (PCR) (Not Detectd) Influenza Type A RNA Not Detected (Not Detectd) Influenza Type B (PCR) Not Detected (Not Detectd) 12/15/21 12/15/21 Range/Units 02: 04:53 WBC (3.8-10.6) k/uL RBC (3.80-5.40) m/uL Hgb (11.4-16.0) gm/dL Hct (34.0-46.0) % MCV (80.0-100.0) fL MCH (25.0-35.0) pg MCHC (31.0-37.0) g/dL RDW (11.5-15.5) % Plt Count (150-450) k/uL MPV Neutrophils % % Lymphocytes % % Monocytes % % Eosinophils % % Basophils % % Neutrophils # (1.3-7.7) k/uL Lymphocytes # (1.0-4.8) k/uL Monocytes # (0-1.0) k/uL Eosinophils # (0-0.7) k/uL Basophils # (0-0.2) k/uL Hypochromasia Sodium (137-145) mmol/L Potassium (3.5-5.1) mmol/L Chloride (98-107) mmol/L Carbon Dioxide (22-30) mmol/L Anion Gap mmol/L BUN (7-17) mg/dL Creatinine (0.52-1.04) mg/dL Est GFR (CKD-EPI)AfAm (>60 ml/min/1.73 sqM) Est GFR (CKD-EPI)NonAf (>60 ml/min/1.73 sqM) Glucose (74-99) mg/dL Plasma Lactic Acid Cj 1.4 (0.7-2.0) mmol/L Calcium (8.4-10.2) mg/dL Total Bilirubin (0.2-1.3) mg/dL AST (14-36) U/L ALT (4-34) U/L Alkaline Phosphatase (38-126) U/L Total Protein (6.3-8.2) g/dL Albumin (3.5-5.0) g/dL Coronavirus (PCR) Not Detected (Not Detectd) Influenza Type A RNA (Not Detectd) Influenza Type B (PCR) (Not Detectd) - Radiology Data Chest x-ray two-view shows quotient pulmonary interstitial infiltrates straight which could correlate to interstitial fibrosis present on previous exam. No pleural fluid seen to check suggest heart failure. (Bruna Pedroza) Disposition Is patient prescribed a controlled substance at d/c from ED?: No Time of Disposition: 04:03 <Bruna Pedroza - Last Filed: 12/15/21 04:07> Time of Disposition: 05:00 <Burton Colindres - Last Filed: 12/15/21 05:31> Clinical Impression: Chills, Cholecystitis, History of atrial fibrillation Disposition: ADMITTED IP TO THIS HOSP Condition: Stable Instructions (If sedation given, give patient instructions): Fever in Adults (ED) Additional Instructions: Please continue to use Tylenol as needed for fevers. Stay well hydrated. Please follow-up with your primary care provider. Please return to the Emergency Department if symptoms worsen or any other concerns. Referrals: Nicholas Hart MD [Primary Care Provider] - 1-2 days
[2021-12-15 02:41] LABS: Basophils # (A) 0.1 k/uL (0-0.2); Basophils % (A) 1 %; Eosinophils # (A) 0.2 k/uL (0-0.7); Eosinophils % (A) 2 %; HCT 34.2 % (34.0-46.0); HGB 10.9 gm/dL (11.4-16.0); Hypochromasia Moderate; Lymphocytes # (A) 1.3 k/uL (1.0-4.8); Lymphocytes % (A) 11 %; MCH 28.4 pg (25.0-35.0); MCHC 31.8 g/dL (31.0-37.0); MCV 89.3 fL (80.0-100.0); Mean Platelet Volume 8.3; Monocytes # (A) 0.6 k/uL (0-1.0); Monocytes % (A) 5 %; Neutrophils # (A) 9.2 k/uL (1.3-7.7); Neutrophils % (A) 80 %; Platelet Count 194 k/uL (150-450); RBC 3.83 m/uL (3.80-5.40); RDW 15.5 % (11.5-15.5); WBC 11.4 k/uL (3.8-10.6)
--- NOTE | 2021-12-15 02:52 | XR ---
EXAMINATION TYPE: XR chest 2V DATE OF EXAM: 12/15/2021 COMPARISON: 08/30/2021 HISTORY: Hypoxemia TECHNIQUE: 2 views FINDINGS: There is coarse pulmonary interstitial edema. Heart is slightly enlarged. There are large c entral pulmonary arteries. No definite pleural effusion. IMPRESSION: Coarse pulmonary interstitial infiltrates could be interstitial fibrosis and also present on old exam. No pleural fluid seen to suggest heart failure. Pulmonary hypertension or bronchial fely nopathy also possible.
[2021-12-15 02:54] LABS: ALT 50 U/L (4-34); AST 107 U/L (14-36); African American GFR (CKD) >90 (>60 ml/min/1.73 sqM); Alkaline Phosphatase 225 U/L (38-126); Blood Urea Nitrogen 11 mg/dL (7-17); Calcium 8.3 mg/dL (8.4-10.2); Carbon Dioxide 25 mmol/L (22-30); Non-African American GFR(CKD) 85 (>60 ml/min/1.73 sqM); Potassium 4.1 mmol/L (3.5-5.1); Sodium 133 mmol/L (137-145)
[2021-12-15 03:09] LABS: Albumin 3.2 g/dL (3.5-5.0); Anion Gap 9 mmol/L; Chloride 99 mmol/L (98-107); Glucose 220 mg/dL (74-99); Total Protein 6.4 g/dL (6.3-8.2)
--- NOTE | 2021-12-15 04:15 | CT ---
EXAMINATION TYPE: CT abdomen pelvis wo con DATE OF EXAM: 12/15/2021 COMPARISON: 08/30/2021 HISTORY: Back pain elevated lab values CT DLP: 1794.6 mGycm Automated exposure control for dose reduction was used. Images obtained from the diaphragm to the floor the pelvis with no contrast. There is some mild atelectasis at the lung bases. Heart is enlarged. No pericardial effusion. There i s coronary artery calcification. There is calcification of the mitral annulus. There is irregular hypodensity around the gallbladder. Gallbladder wall appears thickened at the fund us. Spleen is intact. There is no pancreatic mass. The bile ducts are not dilated. There is fat stran ding in the right upper quadrant around the gallbladder. There is irregular 3 cm fluid collection pos terior to the gallbladder fundus. There is also hypodensity in the anterior right lobe of the liver s uperior to the gallbladder. There is no adrenal mass. Kidneys have normal size. No hydronephrosis. No retroperitoneal adenopathy. Abdominal aorta is atheromatous. There is no ascites or free air. No bowel obstruction. No mesenteri c edema. Urinary bladder distends smoothly. There is left hip prosthesis. There is metal artifact fro m multilevel posterior lumbar spine fusion surgery. There is osteoarthritis right hip joint. IMPRESSION: There is fat stranding right upper quadrant around the gallbladder there is gallbladder wall thickeni ng. This is consistent with acute and chronic cholecystitis. Gallbladder wall thickening significantl y increased compared to the old exam. No dilated ducts. There is small irregular 3 cm fluid collectio n posterior to the gallbladder fundus. Gallbladder rupture is possible. An aggressive gallbladder phil or is also possible. Follow-up is recommended.
[2021-12-15] MEDS ORDERED: VANCOMYCIN IV PER PHARMACY 1 EACH MISC MISCELLANE PRN (04:23)
[2021-12-15] MEDS ORDERED: VANCOMYCIN 2,000 MG in SODIUM CHLORIDE 0.9% 500 ML 500 ML IVPB ONE (04:30)
[2021-12-15] MEDS ORDERED: LEVOFLOXACIN 500MG-D5W PMX 500 MG in DEXTROSE/WATER 1 100ML.BAG IVPB ONE (04:30)
[2021-12-15] MEDS: metroNIDAZOLE 500 MG TAB PO SCH ×4 (04:39→23:07)
[2021-12-15] MEDS ORDERED: NALOXONE 0.4 MG/ML 1 ML VIAL IV PRN (05:25)
[2021-12-15] MEDS: MORPHINE SULFATE 4 MG/ML SYRINGE IVP PRN (06:11)
[2021-12-15] MEDS: SODIUM CHLORIDE 0.9% 1,000 ML IV SCH ×2 (06:32→16:30)
--- NOTE | 2021-12-15 08:31 | P.CONS ---
History of Present Illness - Reason for Consult Consult date: 12/15/21 - Chief Complaint Fever - History of Present Illness This is a progress note/consultation note on an 81-year-old white female whose contacted me last night because his was having difficulty with fever and chills. Auricular temperature was 101. I advised Motrin to observe. Fever returned and the patient felt the need to get evaluated. ER workup did not show a focal source of infection per se however chronic cholecystitis was found. The patient does not complain of overt abdominal pain is been tolerating diet. She has severe DJD of the lumbar spine mobility issues which we have been treating over the last several months. Atrial fibrillation diabetes fibromyalgia is also noted. The patient is now evaluated for observation. She's had similar hospitalization for this remotely. She denies any significant ethanol or IV drug abuse. Review of Systems Constitutional: Denies chills, Denies fever Eyes: denies blurred vision, denies pain Ears, nose, mouth and throat: Denies headache, Denies sore throat Cardiovascular: Denies chest pain, Denies shortness of breath Respiratory: Denies cough Gastrointestinal: Denies abdominal pain, Denies diarrhea, Denies nausea, Denies vomiting Genitourinary: Denies dysuria, Denies hematuria Musculoskeletal: Reports low back pain Integumentary: Denies pruritus, Denies rash Past Medical History Past Medical History: Atrial Fibrillation, Coronary Artery Disease (CAD), Cancer, Diabetes Mellitus, Hyperlipidemia, Hypertension, Musculoskeletal Disorder, Neurologic Disorder, Osteoarthritis (OA), Pneumonia, Renal Disease, Rheumatoid Arthritis (RA), Skin Disorder, Thyroid Disorder Additional Past Medical History / Comment(s): Morbid obesity, chronic atrial fibrillation, diabetes mellitus type 2, hypertension, hyperlipidemia, spinal stenosis, osteoarthritis, hypothyroidism, hypertension, history of skin melanoma, history of bursitis with MRSA post I&D, rheumatoid arthritis, Sjogren's disease, 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 Past Anesthesia/Blood Transfusion Reactions: No Reported Reaction Additional Past Anesthesia/Blood Transfusion Reaction / Comm: Pt has been told not to have anesthesia metabolized by the kidneys and has neurologic Sjogren's with post anesthesia paralysis. Past Psychological History: No Psychological Hx Reported Additional Psychological History / Comment(s): Pt currently at [facility] for rehab which spouse states "has not been going well". She has stood with assist/walker only. Smoking Status: Former smoker Past Alcohol Use History: None Reported Additional Past Alcohol Use History / Comment(s): Pt started smoking in 1961 and quit in 1969 Past Drug Use History: None Reported - Past Family History Mother Family Medical History: CVA/TIA Additional Family Medical History / Comment(s): RUPTURED BOWEL Father Family Medical History: Cancer, Pneumonia Additional Family Medical History / Comment(s): ASPIRATIVE PNA Sister(s) Additional Family Medical History / Comment(s): at age 34 with lupus Medications and Allergies Home Medications Medication Instructions Recorded Confirmed Type Latanoprost [Xalatan 0.005%] 1 drop BOTH EYES HS 08/11/17 11/16/21 History Insulin Lispro [humaLOG Kwikpen] See Protocol SQ AC-TID 09/25/18 11/16/21 History Multivitamins, Thera [Multivitamin 1 tab PO DAILY 11/19/18 11/16/21 History (formulary)] predniSONE 5 mg PO DAILY 07/23/21 11/16/21 History Amiodarone HCl [Cordarone] 100 mg PO DAILY 08/30/21 11/16/21 History Apixaban [Eliquis] 5 mg PO BID@0900,1700 08/30/21 11/16/21 History Dicyclomine [Bentyl] 10 mg PO Q8H PRN 08/30/21 11/16/21 History Famotidine [Pepcid] 10 mg PO Q12H PRN 08/30/21 11/16/21 History Insulin Glargine,Hum.rec.anlog 52 units SQ DAILY 08/30/21 11/16/21 History [Lantus Solostar Pen] Magnesium Oxide 400 mg PO DAILY 08/30/21 11/16/21 History Metoprolol Tartrate [Lopressor] 100 mg PO BID@0900,1700 08/30/21 11/16/21 History Omeprazole 20 mg PO DAILY 08/30/21 11/16/21 History Oxybutynin Chloride [Oxybutynin 10 mg PO DAILY 08/30/21 11/16/21 History Chloride ER] Tamsulosin [Flomax] 0.4 mg PO DAILY 08/30/21 11/16/21 History methocarbamoL [Methocarbamol] 1,000 mg PO Q6H PRN 08/30/21 11/16/21 History polyethylene glycoL 3350 [Miralax] 17 gm PO DAILY packet 09/06/21 11/16/21 Rx Calcium Citrate/Vitamin D3 1 tab PO BID@0900,1700 11/16/21 11/16/21 History [Citracal + D Maximum Caplet] Clotrimazole [Lotrimin AF] 1 applic TOPICAL DAILY PRN 11/16/21 11/16/21 History Digoxin [Lanoxin] 125 mcg PO Q48H 11/16/21 11/16/21 History Docusate [Colace] 100 mg PO BID@0900,1700 11/16/21 11/16/21 History Furosemide [Lasix] 40 mg PO BID@0900,1700 11/16/21 11/16/21 History Levothyroxine Sodium 150 mcg PO MOTUWE@209911/16/21 11/16/21 History Levothyroxine Sodium [Synthroid] 137 mcg PO SUTHFRSA@209911/16/21 11/16/21 History Nitroglycerin Sl Tabs [Nitrostat] 0.4 mg SL Q5M PRN 11/16/21 11/16/21 History Potassium Chloride ER [K-Dur 10] 10 meq PO DAILY@1200 11/16/21 11/16/21 History metFORMIN HCL ER [Glucophage XR] 500 mg PO DAILY@1700 11/16/21 11/16/21 History Nitrofurantoin Monohyd/M-Cryst 100 mg PO BID #0 cap 11/18/21 Rx [Macrobid] Gabapentin 800 mg PO BID@0900,1700 #6 tab 11/19/21 Rx HYDROcodone/APAP 7.5-325MG [[place] 1 tab PO QID #12 tab 11/19/21 Rx 7.5-325] Allergies Allergy/AdvReac Type Severity Reaction Status Date / Time adhesive Allergy Rash/Hives Verified 11/16/21 11:56 cephalexin [From Keflex] Allergy Rash/Hives Verified 11/16/21 11:56 grass pollen Allergy Unknown Verified 11/16/21 11:56 mold Allergy Unknown Verified 11/16/21 11:56 Sulfa (Sulfonamide Allergy Rash/Hives Verified 11/16/21 11:56 Antibiotics) newspaper ink Allergy Mild Unknown Uncoded 11/16/21 11:56 Physical Exam Vitals: Vital Signs Temp Pulse Resp BP Pulse Ox 12/15/21 06:15 98.5 F 60 18 106/54 97 12/15/21 04:43 99.6 F 63 20 125/58 95 12/15/21 01:35 99.3 F 98 18 127/62 92 L Intake and Output 12/14/21 12/15/21 12/15/21 22:59 06:59 14:59 Other: Weight 127.006 kg - Constitutional General appearance: no acute distress, obese - EENT Eyes: EOMI - Neck Neck: no lymphadenopathy - Respiratory Respiratory: bilateral: CTA - Cardiovascular Rhythm: irregularly irregular Heart sounds: normal: S1, S2 Abnormal Heart Sounds: no S3 Gallop - Gastrointestinal General gastrointestinal: soft, no tenderness - Integumentary Integumentary: no cyanotic - Neurologic Neurologic: CNII-XII intact - Musculoskeletal Musculoskeletal: strength equal bilaterally - Psychiatric Psychiatric: A&O x's 3, appropriate affect Results CBC & Chem 7: 12/15/21 02:22 12/15/21 02:22 Labs: Abnormal Lab Results - Last 24 Hours (Table) 12/15/21 12/15/21 Range/Units 02:22 02:22 WBC 11.4 H (3.8-10.6) k/uL Hgb 10.9 L (11.4-16.0) gm/dL Neutrophils # 9.2 H (1.3-7.7) k/uL Sodium 133 L (137-145) mmol/L Glucose 220 H (74-99) mg/dL Calcium 8.3 L (8.4-10.2) mg/dL AST 107 H (14-36) U/L ALT 50 H (4-34) U/L Alkaline Phosphatase 225 H (38-126) U/L Albumin 3.2 L (3.5-5.0) g/dL Assessment and Plan (1) Chills Current Visit: Yes Status: Acute Code(s): R68.83 - CHILLS (WITHOUT FEVER) SNOMED Code(s): 95235408 (2) Cholecystitis Current Visit: Yes Status: Acute Code(s): K81.9 - CHOLECYSTITIS, UNSPECIFIED SNOMED Code(s): 04780346 (3) History of atrial fibrillation Current Visit: Yes Status: Acute Code(s): Z86.79 - PERSONAL HISTORY OF OTHER DISEASES OF THE CIRCULATORY SYSTEM SNOMED Code(s): 163278806 (4) Back pain Current Visit: No Status: Acute Code(s): M54.9 - DORSALGIA, UNSPECIFIED SNOMED Code(s): 756978630 (5) Diabetes Current Visit: No Status: Acute Code(s): E11.9 - TYPE 2 DIABETES MELLITUS WITHOUT COMPLICATIONS SNOMED Code(s): 44133209 (6) Generalized weakness Current Visit: No Status: Acute Code(s): R53.1 - WEAKNESS SNOMED Code(s): 48180340 (7) Hyperlipidemia Current Visit: No Status: Acute Code(s): E78.5 - HYPERLIPIDEMIA, UNSPECIFIED SNOMED Code(s): 76668907 (8) Hypertension Current Visit: No Status: Acute Code(s): I10 - ESSENTIAL (PRIMARY) HYPERTENSION SNOMED Code(s): 84008897 (9) Hypothyroidism Current Visit: No Status: Acute Code(s): E03.9 - HYPOTHYROIDISM, UNSPECIFIED SNOMED Code(s): 89006804 Plan: We'll continue to follow with general surgery. Reconcile medications. Check CBC and CMP in a.m. Advance diet per surgery. See orders otherwise
[2021-12-15] MEDS ORDERED: SODIUM CHLORIDE 0.9% 1,000 ML IV ONE ×2 (09:50→11:15)
[2021-12-15] MEDS ORDERED: DICYCLOMINE 10 MG CAP PO PRN (10:31)
[2021-12-15] MEDS ORDERED: FAMOTIDINE 20 MG TAB PO PRN (10:31)
[2021-12-15] MEDS ORDERED: NITROGLYCERIN SL TABS 0.4 MG TAB SUBLINGUAL PRN (10:31)
[2021-12-15] MEDS ORDERED: CLOTRIMAZOLE 1% CREAM 30 GM TUBE TOPICAL PRN (10:31)
[2021-12-15] MEDS ORDERED: APIXABAN 5 MG TAB PO SCH (10:45)
--- NOTE | 2021-12-15 11:30 | P.GSHP ---
History of Present Illness H&P Date: 12/15/21 CHIEF COMPLAINT: Fever and chills HISTORY OF PRESENT ILLNESS: This is a 81-year-old female who presented to the hospital with complaints of fever and chills. She was having a temp of 101 at home. Patient reports she hadn't started to not feel well around 9:00 last night. She denies any nausea or vomiting. Denies any abdominal pain. She did have noted elevated liver enzymes and white count a computed tomography scan abdomen and pelvis was completed which demonstrated fat stranding in the right upper quadrant around the gallbladder. There is gallbladder wall thickening. This is consistent with acute on chronic cholecystitis. Gallbladder wall thickening has significantly increased compared to old exam. No dilated ducts. There is small irregular 3 cm fluid collection posterior to the gallbladder fundus. Gallbladder rupture as possible. Aggressive gallbladder tumor is also possible. Patient has a known history of atrial fibrillation. She is on Eliquis at home. Currently in the ER she was hypotensive and tachycardic. She has received a fluid bolus. Blood pressure had initially been in the 80s. And now blood pressure is 99/42 with a heart rate of 147. Patient is receive another 1 L fluid bolus. Patient denies any chest pain or shortness breath. PAST MEDICAL HISTORY: Atrial Fibrillation, Coronary Artery Disease (CAD), Cancer, Diabetes Mellitus, Hyperlipidemia, Hypertension, Musculoskeletal Disorder, Neurologic Disorder, Osteoarthritis (OA), Pneumonia, Renal Disease, Rheumatoid Arthritis (RA), Skin Disorder, Thyroid Disorder, sjogren's disease PAST SURGICAL HISTORY: Back Surgery, Breast Surgery, Heart Catheterization, Joint Replacement, Orthopedic Surgery MEDICATIONS: See list. ALLERGIES: See list. SOCIAL HISTORY: No illicit drug use. REVIEW OF SYSTEMS: CONSTITUTIONAL: Denies fever or chills. HEENT: Denies blurred vision, vision changes, or eye pain. Denies hemoptysis CARDIOVASCULAR: Denies chest pain or pressure. RESPIRATORY: No shortness of breath. GASTROINTESTINAL: See HPI for pertinent findings HEMATOLOGIC: Denies bleeding disorders. GENITOURINARY: Denies any blood in urine or increased urinary frequency. SKIN: Denies pruitis. Denies rash. PHYSICAL EXAM: VITAL SIGNS: Reviewed GENERAL: Well-developed in no acute distress. HEENT: No sclera icterus. Extraocular movements grossly intact. Moist buccal mucosa. Head is atraumatic, normocephalic. No nasal drainage. ABDOMEN: Soft. Obese. Nondistended. Nontender NEUROLOGIC: Patient is lethargic but able to arouse and answer questions LABORATORY DATA: WBC 11.4 hemoglobin 10.9 platelets 194 Sodium 133 potassium 4.1 creatinine 0.63 Lactic acid 1.4 Total bilirubin 1.0 AST 107 ALT 50 alk phos 225 Covid and influenza not detected IMAGING: Computed tomography scan abdomen and pelvis as stated above ASSESSMENT: 1. Acute on chronic cholecystitis with computed tomography scan showing fat stranding in the right upper quadrant. Gallbladder wall thickening. Small irregular 3 cm fluid collection at the gallbladder fundus. 2. Elevated LFTs secondary to above 3. Sepsis with hypotension and tachycardia 4. Known history of atrial fibrillation PLAN: -Patient scheduled for laparoscopic cholecystectomy today with Dr. Cruz -Continue antibiotics -Patient will receive another 1 L fluid bolus for her hypotension and tachycardia -Okay to resume her amiodarone and metoprolol if blood pressure improves with fluid bolus -Increase maintenance fluids to 125 mL per hour -Hold Eliquis -Continue supportive care Physician Kindergarten Teacher Assistant note has been reviewed by physician. Signing provider agrees with the documented findings, assessment, and plan of care. Past Medical History Past Medical History: Atrial Fibrillation, Coronary Artery Disease (CAD), Cancer, Diabetes Mellitus, Hyperlipidemia, Hypertension, Musculoskeletal Disorder, Neurologic Disorder, Osteoarthritis (OA), Pneumonia, Renal Disease, Rheumatoid Arthritis (RA), Skin Disorder, Thyroid Disorder Additional Past Medical History / Comment(s): Morbid obesity, chronic atrial fibrillation, diabetes mellitus type 2, hypertension, hyperlipidemia, spinal stenosis, osteoarthritis, hypothyroidism, hypertension, history of skin melanoma, history of bursitis with MRSA post I&D, rheumatoid arthritis, Sjogren's disease, 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 Past Anesthesia/Blood Transfusion Reactions: No Reported Reaction Additional Past Anesthesia/Blood Transfusion Reaction / Comment(s): Pt has been told not to have anesthesia metabolized by the kidneys and has neurologic Sjogren's with post anesthesia paralysis. Past Psychological History: No Psychological Hx Reported Additional Psychological History / Comment(s): Pt currently at [facility] for rehab which spouse states "has not been going well". She has stood with assist/walker only. Smoking Status: Former smoker Past Alcohol Use History: None Reported Additional Past Alcohol Use History / Comment(s): Pt started smoking in 1961 and quit in 1969 Past Drug Use History: None Reported - Past Family History Mother Family Medical History: CVA/TIA Additional Family Medical History / Comment(s): RUPTURED BOWEL Father Family Medical History: Cancer, Pneumonia Additional Family Medical History / Comment(s): ASPIRATIVE PNA Sister(s) Additional Family Medical History / Comment(s): at age 34 with lupus Medications and Allergies Home Medications Medication Instructions Recorded Confirmed Type Latanoprost [Xalatan 0.005%] 1 drop BOTH EYES HS 08/11/17 12/15/21 History Insulin Lispro [humaLOG Kwikpen] See Protocol SQ AC-TID 09/25/18 12/15/21 History Multivitamins, Thera [Multivitamin 1 tab PO DAILY 11/19/18 12/15/21 History (formulary)] predniSONE 5 mg PO DAILY 07/23/21 12/15/21 History Amiodarone HCl [Cordarone] 100 mg PO DAILY 08/30/21 12/15/21 History Apixaban [Eliquis] 5 mg PO BID@0900,1700 08/30/21 12/15/21 History Dicyclomine [Bentyl] 10 mg PO Q8H PRN 08/30/21 12/15/21 History Famotidine [Pepcid] 10 mg PO Q12H PRN 08/30/21 12/15/21 History Insulin Glargine,Hum.rec.anlog 30 units SQ Q12H 08/30/21 12/15/21 History [Lantus Solostar Pen] Magnesium Oxide 400 mg PO DAILY 08/30/21 12/15/21 History Metoprolol Tartrate [Lopressor] 100 mg PO BID@0900,1700 08/30/21 12/15/21 History Omeprazole 20 mg PO DAILY 08/30/21 12/15/21 History Oxybutynin Chloride [Oxybutynin 10 mg PO DAILY 08/30/21 12/15/21 History Chloride ER] Tamsulosin [Flomax] 0.4 mg PO DAILY 08/30/21 12/15/21 History methocarbamoL [Methocarbamol] 1,000 mg PO Q6H PRN 08/30/21 12/15/21 History polyethylene glycoL 3350 [Miralax] 17 gm PO DAILY packet 09/06/21 12/15/21 Rx Calcium Citrate/Vitamin D3 1 tab PO BID@0900,1700 11/16/21 12/15/21 History [Citracal + D Maximum Caplet] Clotrimazole [Lotrimin AF] 1 applic TOPICAL DAILY PRN 11/16/21 12/15/21 History Digoxin [Lanoxin] 125 mcg PO Q48H 11/16/21 12/15/21 History Docusate [Colace] 100 mg PO BID@0900,0 11/16/21 12/15/21 History Furosemide [Lasix] 40 mg PO BID@0900,1700 11/16/21 12/15/21 History Levothyroxine Sodium 150 mcg PO MOTUWE@209911/16/21 12/15/21 History Levothyroxine Sodium [Synthroid] 137 mcg PO SUTHFRSA@209911/16/21 12/15/21 History Nitroglycerin Sl Tabs [Nitrostat] 0.4 mg SL Q5M PRN 11/16/21 12/15/21 History Potassium Chloride ER [K-Dur 10] 10 meq PO DAILY@1200 11/16/21 12/15/21 History metFORMIN HCL ER [Glucophage XR] 500 mg PO DAILY@1700 11/16/21 12/15/21 History Gabapentin 800 mg PO BID@0900,1700 #6 tab 11/19/21 12/15/21 Rx HYDROcodone/APAP 7.5-325MG [[place] 1 tab PO QID #12 tab 11/19/21 12/15/21 Rx 7.5-325] Allergies Allergy/AdvReac Type Severity Reaction Status Date / Time adhesive Allergy Rash/Hives Verified 11/16/21 11:56 cephalexin [From Keflex] Allergy Rash/Hives Verified 11/16/21 11:56 grass pollen Allergy Unknown Verified 11/16/21 11:56 mold Allergy Unknown Verified 11/16/21 11:56 Sulfa (Sulfonamide Allergy Rash/Hives Verified 11/16/21 11:56 Antibiotics) newspaper ink Allergy Mild Unknown Uncoded 11/16/21 11:56 Surgical - Exam Vital Signs Temp Pulse Resp BP Pulse Ox 99.3 F 98 18 127/62 92 L 12/15/21 01:35 12/15/21 01:35 12/15/21 01:35 12/15/21 01:35 12/15/21 01:35 Results - Labs 12/15/21 02:22 12/15/21 02:22 Abnormal Lab Results - Last 24 Hours (Table) 12/15/21 12/15/21 Range/Units 02:22 02:22 WBC 11.4 H (3.8-10.6) k/uL Hgb 10.9 L (11.4-16.0) gm/dL Neutrophils # 9.2 H (1.3-7.7) k/uL Sodium 133 L (137-145) mmol/L Glucose 220 H (74-99) mg/dL Calcium 8.3 L (8.4-10.2) mg/dL AST 107 H (14-36) U/L ALT 50 H (4-34) U/L Alkaline Phosphatase 225 H (38-126) U/L Albumin 3.2 L (3.5-5.0) g/dL Diabetes panel 12/15/21 Range/Units 02:22 Sodium 133 L (137-145) mmol/L Potassium 4.1 (3.5-5.1) mmol/L Chloride 99 (98-107) mmol/L Carbon Dioxide 25 (22-30) mmol/L BUN 11 (7-17) mg/dL Creatinine 0.63 (0.52-1.04) mg/dL Glucose 220 H (74-99) mg/dL Calcium 8.3 L (8.4-10.2) mg/dL AST 107 H (14-36) U/L ALT 50 H (4-34) U/L Alkaline Phosphatase 225 H (38-126) U/L Total Protein 6.4 (6.3-8.2) g/dL Albumin 3.2 L (3.5-5.0) g/dL Calcium panel 12/15/21 Range/Units 02:22 Calcium 8.3 L (8.4-10.2) mg/dL Albumin 3.2 L (3.5-5.0) g/dL Pituitary panel 12/15/21 Range/Units 02:22 Sodium 133 L (137-145) mmol/L Potassium 4.1 (3.5-5.1) mmol/L Chloride 99 (98-107) mmol/L Carbon Dioxide 25 (22-30) mmol/L BUN 11 (7-17) mg/dL Creatinine 0.63 (0.52-1.04) mg/dL Glucose 220 H (74-99) mg/dL Calcium 8.3 L (8.4-10.2) mg/dL Adrenal panel 12/15/21 Range/Units 02:22 Sodium 133 L (137-145) mmol/L Potassium 4.1 (3.5-5.1) mmol/L Chloride 99 (98-107) mmol/L Carbon Dioxide 25 (22-30) mmol/L BUN 11 (7-17) mg/dL Creatinine 0.63 (0.52-1.04) mg/dL Glucose 220 H (74-99) mg/dL Calcium 8.3 L (8.4-10.2) mg/dL Total Bilirubin 1.0 (0.2-1.3) mg/dL AST 107 H (14-36) U/L ALT 50 H (4-34) U/L Alkaline Phosphatase 225 H (38-126) U/L Total Protein 6.4 (6.3-8.2) g/dL Albumin 3.2 L (3.5-5.0) g/dL
[2021-12-15 11:43] LABS: Glucose,Whole Blood 160 mg/dL (70-110)
[2021-12-15] MEDS: INSULIN DETEMIR (LEVEMIR) 100 UNIT/ML SYR SQ SCH ×2 (11:44→23:07)
[2021-12-15] MEDS: MAGNESIUM OXIDE 400 MG TAB PO SCH (11:48)
[2021-12-15] MEDS: POTASSIUM CHLORIDE ER 10 MEQ TAB.ER.PRT PO SCH (11:48)
[2021-12-15] MEDS: OXYBUTYNIN 10 MG TAB.ER.24 PO SCH (11:48)
[2021-12-15] MEDS ORDERED: LACTATED RINGERS 1,000 ML IV ONE ×2 (13:13→14:52)
[2021-12-15] MEDS ORDERED: ONDANSETRON 4 MG/2 ML VIAL ONE (13:20)
[2021-12-15 13:24] LABS: Glucose,Whole Blood 153 mg/dL (70-110)
[2021-12-15] MEDS ORDERED: ONDANSETRON 4 MG/2 ML VIAL IVP ONE (13:25)
[2021-12-15] MEDS ORDERED: SUCCINYLCHOLINE CHLORIDE 200 MG/10 ML VIAL IV ONE (13:53)
[2021-12-15] MEDS ORDERED: METOPROLOL TARTRATE 5 MG/5 ML VIAL IVP ONE ×2 (13:53→15:47)
[2021-12-15] MEDS ORDERED: fentaNYL (PF) 50 MCG/ML 2 ML AMP ONE (13:53)
[2021-12-15] MEDS ORDERED: HYDROmorphone (PF) 1 MG/ML ONE (13:53)
[2021-12-15] MEDS ORDERED: PHENYLEPHRINE-0.9% NACL SYG 1,000 MCG/10 ML SYRINGE ONE (13:53)
[2021-12-15] MEDS ORDERED: GLYCOPYRROLATE 0.2 MG/ML 2 ML VIAL ONE (13:53)
[2021-12-15] MEDS ORDERED: PROPOFOL 10 MG/ML 20 ML VIAL IV ONE (13:53)
[2021-12-15] MEDS ORDERED: NEOSTIGMINE 1 MG/ML 10 ML VIAL ONE (13:53)
[2021-12-15] MEDS ORDERED: LIDOCAINE 4% LTA KIT (4 ML) TOPICAL ONE (13:53)
[2021-12-15] MEDS ORDERED: LIDOCAINE 2% INJ 20 MG/ML (2 ML VIAL) ONE (13:53)
[2021-12-15] MEDS ORDERED: ROCURONIUM 10 MG/ML (5 ML VIAL) IV ONE (13:53)
[2021-12-15] MEDS ORDERED: LIDOCAINE 1%-EPI 1:100,000 20 ML VIAL SQ ONE (14:39)
[2021-12-15] MEDS: LEVOFLOXACIN 500MG-D5W PMX 500 MG in DEXTROSE/WATER 1 100ML.BAG IVPB SCH (14:52)
--- NOTE | 2021-12-15 15:57 | P.OP ---
Date of Procedure: 12/15/21 Preoperative Diagnosis: Acute cholecystitis Postoperative Diagnosis: Acute on chronic cholecystitis Empyema gallbladder Cholelithiasis Procedure(s) Performed: Diagnostic laparoscopy Open cholecystectomy Anesthesia: BRITTANY Surgeon: Darius Cruz Estimated Blood Loss (ml): 50 Pathology: other (Gallbladder) Condition: stable Disposition: PACU Description of Procedure: TThe patient was placed on the operating table. The patient received a general endotracheal tube anesthesia. The patients abdomen was prepped and draped in the usual sterile fashion. Through an infraumbilical stab incision, the fascia of the anterior abdominal wall was grasped with a pair of Kochers and then the Veress needle was placed in the peritoneal cavity. Position of the Veress needle was confirmed with positive drop test. The abdomen was then insufflated. After adequate insufflation, the 10 mm trocar was placed in the peritoneal cavity. Following this the laparoscope was placed in the peritoneal cavity. The patient was placed in the head-up, right side up position and then a 5 mm trocar was placed in the right lateral and right subcostal position under direct visualization. A 8 mm trocar was placed in the epigastric position. There was significant inflammatory change in the right upper quadrant. There was some bilious fluid seen. The gallbladder cannot be visualized secondary to adhesions. At this point decided perform an open cholestatic. The trochars withdrawn. The skin was divided in the right upper quadrant along the subcostal area using a 15 blade. Using left cautery this the abdominal was divided. There was inflammatory mass in the right upper quadrant at the liver. The gallbladder was encased in omentum. This was bluntly and sharply dissected. Left cautery was used to aid the dissection. The gallbladder was grossly thickened. There was significant inflammatory change around the gallbladder. At this point the cystic duct was doubly visualized. There was significant inflammatory change around the santhosh hepatis. The ductal structures could not be identified. This point the gallbladder was taken down in a dome down fashion. In order to not injure the cystic duct. It was decided perform a subtotal cholecystectomy. The gallbladder infundibulum was clamped with a Marcia clamp. And then the gallbladder was divided with a pair of [place]field scissors. There was mary pus seen within the gallbladder. There is multiple little gallstones. The gallbladder infundibulum was then oversewn with 0 Vicryl suture. A SYL drains placed the gallbladder fossa. Scope was brought out through separate stab incision right lower quadrant. The abdomen was irrigated there is no bleeding seen. The fascia was closed with looped #1 PDS suture. Skin was closed. Patient was sent to recovery room in stable condition.
[2021-12-15 16:05] LABS: Glucose,Whole Blood 161 mg/dL (70-110)
[2021-12-15] MEDS: AMIODARONE 100 MG TAB PO SCH (16:30)
[2021-12-15] MEDS: HYDROcodone/APAP 7.5-325MG 1 EACH TAB PO SCH ×3 (16:30→23:07)
[2021-12-15] MEDS: METOPROLOL TARTRATE 50 MG TAB PO SCH (18:02)
[2021-12-15] MEDS: CALCIUM CARB-VIT D 500 MG-5 MCG TAB PO SCH (18:02)
[2021-12-15] MEDS: DOCUSATE 100 MG CAP PO SCH (18:02)
[2021-12-15] MEDS: metFORMIN 500 MG TAB PO SCH (18:02)
[2021-12-15] MEDS: GABAPENTIN 400 MG CAP PO SCH (18:02)
[2021-12-15] MEDS: VANCOMYCIN 2,000 MG in SODIUM CHLORIDE 0.9% 500 ML 500 ML IVPB SCH (18:03)
[2021-12-15] MEDS: FUROSEMIDE 40 MG TAB PO SCH (18:03)
[2021-12-15 22:55] LABS: Glucose,Whole Blood 179 mg/dL (70-110)
[2021-12-15] MEDS: LEVOTHYROXINE 75 MCG TAB PO SCH (23:07)
[2021-12-15] MEDS: LATANOPROST 0.005% OPHTH DROPS 2.5 ML BTL BOTH EYES SCH (23:07)
[2021-12-15] MEDS ORDERED: METOPROLOL TARTRATE 50 MG TAB PO STA (23:54)
[2021-12-16] MEDS: SODIUM CHLORIDE 0.9% 1,000 ML IV SCH ×4 (00:02→23:45)
[2021-12-16] MEDS: ACETAMINOPHEN TAB 325 MG TAB PO PRN ×2 (01:34→07:39)
[2021-12-16] MEDS: VANCOMYCIN 2,000 MG in SODIUM CHLORIDE 0.9% 500 ML 500 ML IVPB SCH (06:02)
[2021-12-16] MEDS: methocarbamoL 500 MG TAB PO PRN (06:32)
[2021-12-16 07:03] LABS: Glucose,Whole Blood 122 mg/dL (70-110)
[2021-12-16] MEDS: INSULIN DETEMIR (LEVEMIR) 100 UNIT/ML SYR SQ SCH ×2 (08:51→20:52)
[2021-12-16] MEDS: AMIODARONE 100 MG TAB PO SCH (08:52)
[2021-12-16] MEDS: DIGOXIN 125 MCG TAB PO SCH (08:52)
[2021-12-16] MEDS: CALCIUM CARB-VIT D 500 MG-5 MCG TAB PO SCH ×2 (08:52→16:50)
[2021-12-16] MEDS: GABAPENTIN 400 MG CAP PO SCH ×2 (08:53→17:44)
[2021-12-16] MEDS: MULTIVITAMINS, THERA 1 EACH TAB PO SCH (08:53)
[2021-12-16] MEDS: OXYBUTYNIN 10 MG TAB.ER.24 PO SCH (08:53)
[2021-12-16] MEDS: DOCUSATE 100 MG CAP PO SCH ×2 (08:53→16:50)
[2021-12-16] MEDS: predniSONE 5 MG TAB PO SCH (08:53)
[2021-12-16] MEDS: metroNIDAZOLE 500 MG TAB PO SCH ×3 (08:53→20:52)
[2021-12-16] MEDS: FUROSEMIDE 40 MG TAB PO SCH ×2 (08:53→16:50)
[2021-12-16] MEDS: MAGNESIUM OXIDE 400 MG TAB PO SCH (08:54)
[2021-12-16] MEDS: HYDROcodone/APAP 7.5-325MG 1 EACH TAB PO SCH ×4 (08:54→20:52)
[2021-12-16] MEDS: PANTOPRAZOLE 40 MG TABLET PO SCH (08:54)
[2021-12-16] MEDS: TAMSULOSIN 0.4 MG CAP.ER.24H PO SCH (08:54)
[2021-12-16] MEDS: METOPROLOL TARTRATE 50 MG TAB PO SCH ×2 (08:54→16:50)
--- NOTE | 2021-12-16 08:57 | P.PN ---
Subjective Progress Note Date: 12/16/21 Principal diagnosis: Acute cholecystitis This is an 81-year-old female who presented to the ER with complaints of fever. Acute cholecystitis was found in an open cholecystectomy was performed last night by Dr. Cruz. Patient seen sitting on the side of the bed this morning about to be transferred to the chair with physical therapy. Patient reports moderate pain this morning. Fever is coming down, heart rate also now stable. Objective - Vital Signs Vital signs: Vital Signs Temp 100.3 F H 12/16/21 07:15 Pulse 81 12/16/21 07:40 Resp 16 12/16/21 07:40 BP 103/54 12/16/21 07:15 Pulse Ox 97 12/16/21 08:31 FiO2 3 12/16/21 08:31 Intake & Output 12/15/21 12/16/21 12/16/21 18:59 06:59 18:59 Intake Total 1850 Output Total 100 245 Balance 1750 -245 Weight 127.006 kg Intake: IV 1850 Output: Drainage 45 Right Abdomen 45 Urine 200 Estimated Blood Loss 100 Other: Voiding Method External Catheter External Catheter # Voids 2 - Constitutional General appearance: Present: cooperative, no acute distress - Neck Neck: Present: normal ROM - Respiratory Respiratory: bilateral: CTA - Cardiovascular Rhythm: irregularly irregular - Gastrointestinal General gastrointestinal: Present: normal bowel sounds, soft - Integumentary Integumentary: Present: normal - Psychiatric Psychiatric: Present: A&O x's 3, appropriate affect, intact judgment & insight - Labs CBC & Chem 7: 12/15/21 02:22 12/15/21 02:22 Labs: Abnormal Lab Results - Last 24 Hours (Table) 12/15/21 12/15/21 12/15/21 Range/Units 11:39 13:23 16:04 POC Glucose (mg/dL) 160 H 153 H 161 H (70-110) mg/dL 12/15/21 12/16/21 Range/Units 22:53 07:01 POC Glucose (mg/dL) 179 H 122 H (70-110) mg/dL Microbiology - Last 24 Hours (Table) 12/15/21 15:30 Gram Stain - Preliminary Other - Other Wound Culture - Preliminary 12/15/21 03:42 Blood Culture Gram Stain - Preliminary Blood 12/15/21 02:20 Blood Culture Gram Stain - Preliminary Blood 12/15/21 02:22 Blood Culture - Preliminary Blood No Growth after 24 hours 12/15/21 03:42 Blood Culture - Preliminary Blood No Growth after 24 hours 12/15/21 15:30 Anaerobic Culture - Preliminary Other - Other Assessment and Plan (1) Cholecystitis Current Visit: Yes Status: Acute Code(s): K81.9 - CHOLECYSTITIS, UNSPECIFIED SNOMED Code(s): 44084983 (2) Chills Current Visit: Yes Status: Acute Code(s): R68.83 - CHILLS (WITHOUT FEVER) SNOMED Code(s): 58911079 (3) History of atrial fibrillation Current Visit: Yes Status: Acute Code(s): Z86.79 - PERSONAL HISTORY OF OTHER DISEASES OF THE CIRCULATORY SYSTEM SNOMED Code(s): 237167360 (4) Back pain Current Visit: No Status: Acute Code(s): M54.9 - DORSALGIA, UNSPECIFIED SNOMED Code(s): 752629122 (5) Diabetes Current Visit: No Status: Acute Code(s): E11.9 - TYPE 2 DIABETES MELLITUS WITHOUT COMPLICATIONS SNOMED Code(s): 74376790 (6) Hyperlipidemia Current Visit: No Status: Acute Code(s): E78.5 - HYPERLIPIDEMIA, UNSPECIFIED SNOMED Code(s): 78800971 (7) Hypertension Current Visit: No Status: Acute Code(s): I10 - ESSENTIAL (PRIMARY) HYPERTENSION SNOMED Code(s): 10768264 Plan: CBC and CMP tomorrow morning. Continue to work with physical therapy. [facility] Patient seen and evaluated by nurse practitioner. Physician in agreement with plan.
[2021-12-16] MEDS: polyethylene glycoL 3350 17 GM POWD.PACK PO SCH (09:00)
[2021-12-16 09:09] LABS: Basophils # (A) 0.01 X 10*3/uL (0.00-0.10); Basophils % (A) 0.1 %; Eosinophils # (A) 0.03 X 10*3/uL (0.04-0.35); Eosinophils % (A) 0.3 %; HCT 31.1 % (37.2-46.3); HGB 9.7 g/dL (12.0-15.0); Immature Grans, Automated 0.5 %; Lymphocytes # (A) 0.72 X 10*3/uL (0.90-5.00); Lymphocytes % (A) 8.3 %; MCHC 31.2 g/dL (32.0-37.0); MCV 89.6 fL (80.0-97.0); Mean Platelet Volume 10.8 fL (9.5-12.2); Monocytes # (A) 0.84 X 10*3/uL (0.20-1.00); Monocytes % (A) 9.7 %; NRBC Per 100 WBC 0 /100 WBCS (0.0-0.0); Neutrophils # (A) 7.06 X 10*3/uL (1.80-7.70); Neutrophils % (A) 81.1 %; Platelet Count 177 X 10*3/uL (140-440); RBC 3.47 X 10*6/uL (4.10-5.20); RDW 15.9 % (11.5-14.5)
[2021-12-16 10:15] LABS: HCT 33.4 % (34.0-46.0); HGB 10.5 gm/dL (11.4-16.0); Hypochromasia Marked; MCH 28.8 pg (25.0-35.0); MCHC 31.3 g/dL (31.0-37.0); MCV 91.8 fL (80.0-100.0); Mean Platelet Volume 8.5; Platelet Count 181 k/uL (150-450); RBC 3.64 m/uL (3.80-5.40); WBC 7.9 k/uL (3.8-10.6)
[2021-12-16 10:23] LABS: African American GFR (CKD) 54.9 (60.0-200.0); Albumin 2.6 g/dL (3.8-4.9); Albumin/Globulin Ratio 0.96 (1.60-3.17); Anion Gap 9.9 mmol/L (10.00-18.00); BUN/Creat Ratio 14.91 Ratio (12.00-20.00); Blood Urea Nitrogen 16.4 mg/dL (9.0-27.0); Calcium 7.6 mg/dL (8.7-10.3); Carbon Dioxide 23.1 mmol/L (20.0-27.5); Globulin 2.7 g/dL (1.6-3.3); Non-African American GFR(CKD) 47.4 (60.0-200.0); Potassium 4.7 mmol/L (3.5-5.5); Total Bilirubin 3.5 mg/dL (0.30-1.20); Total Protein 5.3 g/dL (6.2-8.2)
[2021-12-16 11:29] LABS: Glucose,Whole Blood 140 mg/dL (70-110)
[2021-12-16] MEDS: KETOROLAC 15 MG/ML 1 ML VIAL IVP SCH ×3 (11:53→23:45)
[2021-12-16] MEDS: POTASSIUM CHLORIDE ER 10 MEQ TAB.ER.PRT PO SCH (13:22)
--- NOTE | 2021-12-16 14:01 | P.PN ---
Subjective Progress Note Date: 12/16/21 CHIEF COMPLAINT: Fever and chills HISTORY OF PRESENT ILLNESS: Patient is postop day #1 status post diagnostic laparoscopy with open cholecystectomy for acute on chronic cholecystitis, empyema gallbladder and cholelithiasis. Patient is sitting up at bedside chair. She is reporting abdominal pain as well as back pain. She did have a temp of 103 last night temp this morning is 100.3. Heart rate has improved. Cardiac meds restarted. She denies any nausea or vomiting. She did tolerate clear liquids. No flatus. SYL drain with 40 mL of serosanguineous output. WBC is 7.9 Hgb 10.5 platelet to 181 sodium is 135 potassium is 4.7 creatinine 1.1 total bilirubin is up at 3.50. AST 107/82 ALT 50 down to 49 alk phos 225 down to 189. Wound culture pending. One positive blood culture gram-positive cocci Patient seen and examined with Dr. sy PHYSICAL EXAM: VITAL SIGNS: Reviewed. GENERAL: Well-developed in no acute distress. HEENT: No sclera icterus. Extraocular movements grossly intact. Moist buccal mucosa. Head is atraumatic, normocephalic. ABDOMEN: Soft. Nondistended. Incision site clean dry and intact. SYL drain serosanguineous output Neuro: Alert and oriented. Cranial nerves II through XII grossly intact. ASSESSMENT: 1. Acute on chronic cholecystitis, empyema gallbladder, cholelithiasis status post open cholecystectomy PLAN: -Continue clear liquid diet -Toradol added for pain control -Continue antibiotics -Repeat blood culture -Encouraged patient to increase activity level -Encouraged patient to use incentive spirometer -Continue to work with PT OT -Consult transplant case manager for possible ECF placement -Continue to hold Eliquis -GI prophylaxis Protonix and DVT prophylaxis subcu heparin Physician Staff Development Nurse note has been reviewed by physician. Signing provider agrees with the documented findings, assessment, and plan of care. Objective - Vital Signs Vital signs: Vital Signs Temp 100.3 F H 12/16/21 07:15 Pulse 81 12/16/21 07:40 Resp 16 12/16/21 07:40 BP 103/54 12/16/21 07:15 Pulse Ox 97 12/16/21 08:31 FiO2 3 12/16/21 08:31 Intake & Output 12/15/21 12/16/21 12/16/21 18:59 06:59 18:59 Intake Total 1850 Output Total 100 245 Balance 1750 -245 Weight 127.006 kg Intake: IV 1850 Output: Drainage 45 Right Abdomen 45 Urine 200 Estimated Blood Loss 100 Other: Voiding Method External Catheter External Catheter # Voids 2 - Labs CBC & Chem 7: 12/16/21 08:53 12/16/21 06:12 Labs: Abnormal Lab Results - Last 24 Hours (Table) 12/15/21 12/15/21 12/16/21 Range/Units 16:04 22:53 06:12 RBC 3.47 L (4.10-5.20) X 10*6/uL Hgb 9.7 L (12.0-15.0) g/dL Hct 31.1 L (37.2-46.3) % MCHC 31.2 L (32.0-37.0) g/dL RDW 15.9 H (11.5-14.5) % Lymphocytes # 0.72 L (0.90-5.00) X 10*3/uL Eosinophils # 0.03 L (0.04-0.35) X 10*3/uL Anion Gap (10.00-18.00) mmol/L Est GFR (CKD-EPI)AfAm (60.0-200.0) Est GFR (CKD-EPI)NonAf (60.0-200.0) Glucose (70-110) mg/dL POC Glucose (mg/dL) 161 H 179 H (70-110) mg/dL Calcium (8.7-10.3) mg/dL Total Bilirubin (0.30-1.20) mg/dL AST (13-35) U/L ALT (8-44) U/L Alkaline Phosphatase (41-126) U/L Total Protein (6.2-8.2) g/dL Albumin (3.8-4.9) g/dL Albumin/Globulin Ratio (1.60-3.17) g/dL 12/16/21 12/16/21 12/16/21 Range/Units 06:12 07:01 08:53 RBC 3.64 L (4.10-5.20) X 10*6/uL Hgb 10.5 L (12.0-15.0) g/dL Hct 33.4 L (37.2-46.3) % MCHC (32.0-37.0) g/dL RDW (11.5-14.5) % Lymphocytes # (0.90-5.00) X 10*3/uL Eosinophils # (0.04-0.35) X 10*3/uL Anion Gap 9.90 L (10.00-18.00) mmol/L Est GFR (CKD-EPI)AfAm 54.9 L (60.0-200.0) Est GFR (CKD-EPI)NonAf 47.4 L (60.0-200.0) Glucose 125 H (70-110) mg/dL POC Glucose (mg/dL) 122 H (70-110) mg/dL Calcium 7.6 L (8.7-10.3) mg/dL Total Bilirubin 3.50 H (0.30-1.20) mg/dL AST 82 H (13-35) U/L ALT 49 H (8-44) U/L Alkaline Phosphatase 189 H (41-126) U/L Total Protein 5.3 L (6.2-8.2) g/dL Albumin 2.6 L (3.8-4.9) g/dL Albumin/Globulin Ratio 0.96 L (1.60-3.17) g/dL 12/16/21 Range/Units 11:28 RBC (4.10-5.20) X 10*6/uL Hgb (12.0-15.0) g/dL Hct (37.2-46.3) % MCHC (32.0-37.0) g/dL RDW (11.5-14.5) % Lymphocytes # (0.90-5.00) X 10*3/uL Eosinophils # (0.04-0.35) X 10*3/uL Anion Gap (10.00-18.00) mmol/L Est GFR (CKD-EPI)AfAm (60.0-200.0) Est GFR (CKD-EPI)NonAf (60.0-200.0) Glucose (70-110) mg/dL POC Glucose (mg/dL) 140 H (70-110) mg/dL Calcium (8.7-10.3) mg/dL Total Bilirubin (0.30-1.20) mg/dL AST (13-35) U/L ALT (8-44) U/L Alkaline Phosphatase (41-126) U/L Total Protein (6.2-8.2) g/dL Albumin (3.8-4.9) g/dL Albumin/Globulin Ratio (1.60-3.17) g/dL Microbiology - Last 24 Hours (Table) 12/15/21 02:20 Blood Culture Gram Stain - Preliminary Blood 12/15/21 03:42 Blood Culture Gram Stain - Preliminary Blood 12/15/21 15:30 Gram Stain - Preliminary Other - Other Wound Culture - Preliminary 12/15/21 02:22 Blood Culture - Preliminary Blood No Growth after 24 hours 12/15/21 03:42 Blood Culture - Preliminary Blood No Growth after 24 hours 12/15/21 15:30 Anaerobic Culture - Preliminary Other - Other
[2021-12-16 16:33] LABS: Glucose,Whole Blood 128 mg/dL (70-110)
[2021-12-16] MEDS: metFORMIN 500 MG TAB PO SCH (16:50)
[2021-12-16 19:41] LABS: Glucose,Whole Blood 155 mg/dL (70-110)
[2021-12-16] MEDS: HEPARIN SODIUM,PORCINE/PF 5,000 UNIT/0.5 ML SYRINGE SQ SCH (20:53)
[2021-12-16] MEDS: LATANOPROST 0.005% OPHTH DROPS 2.5 ML BTL BOTH EYES SCH (20:55)
[2021-12-16] MEDS ORDERED: VANCOMYCIN 2,000 MG in SODIUM CHLORIDE 0.9% 500 ML 500 ML IVPB SCH (22:00)
[2021-12-16] MEDS: LEVOTHYROXINE 137 MCG TAB PO SCH (22:09)
[2021-12-17] MEDS: LEVOFLOXACIN 500MG-D5W PMX 500 MG in DEXTROSE/WATER 1 100ML.BAG IVPB SCH (05:48)
[2021-12-17] MEDS: KETOROLAC 15 MG/ML 1 ML VIAL IVP SCH ×4 (05:48→23:42)
[2021-12-17 07:08] LABS: Glucose,Whole Blood 75 mg/dL (70-110)
[2021-12-17] MEDS: CALCIUM CARB-VIT D 500 MG-5 MCG TAB PO SCH ×2 (08:13→17:02)
[2021-12-17] MEDS: FUROSEMIDE 40 MG TAB PO SCH ×2 (08:13→17:02)
[2021-12-17] MEDS: MULTIVITAMINS, THERA 1 EACH TAB PO SCH (08:13)
[2021-12-17] MEDS: metroNIDAZOLE 500 MG TAB PO SCH ×3 (08:13→21:26)
[2021-12-17] MEDS: PANTOPRAZOLE 40 MG TABLET PO SCH (08:13)
[2021-12-17] MEDS: METOPROLOL TARTRATE 50 MG TAB PO SCH ×2 (08:13→17:02)
[2021-12-17] MEDS: TAMSULOSIN 0.4 MG CAP.ER.24H PO SCH (08:13)
[2021-12-17] MEDS: HYDROcodone/APAP 7.5-325MG 1 EACH TAB PO SCH ×4 (08:13→21:26)
[2021-12-17] MEDS: GABAPENTIN 400 MG CAP PO SCH ×2 (08:13→17:02)
[2021-12-17] MEDS: MAGNESIUM OXIDE 400 MG TAB PO SCH (08:13)
[2021-12-17] MEDS: DOCUSATE 100 MG CAP PO SCH ×2 (08:13→17:01)
[2021-12-17] MEDS: predniSONE 5 MG TAB PO SCH (08:14)
[2021-12-17] MEDS: AMIODARONE 100 MG TAB PO SCH (08:14)
[2021-12-17] MEDS: OXYBUTYNIN 10 MG TAB.ER.24 PO SCH (08:14)
[2021-12-17] MEDS: INSULIN DETEMIR (LEVEMIR) 100 UNIT/ML SYR SQ SCH ×2 (08:15→21:26)
[2021-12-17] MEDS: polyethylene glycoL 3350 17 GM POWD.PACK PO SCH (08:15)
[2021-12-17] MEDS: HEPARIN SODIUM,PORCINE/PF 5,000 UNIT/0.5 ML SYRINGE SQ SCH ×2 (08:15→21:26)
--- NOTE | 2021-12-17 08:27 | P.PN ---
Subjective Progress Note Date: 12/17/21 Principal diagnosis: Cholecystitis status post post cystectomy The patient is postop day #2 for infected cholecystitis. The patient is doing well however complaining of urinary retention. We will follow this closely. Increase mobilization as possible. Appreciate PT/OT. Objective - Vital Signs Vital signs: Vital Signs Temp 97.6 F 12/17/21 07:46 Pulse 66 12/17/21 07:46 Resp 15 12/17/21 07:46 BP 118/64 12/17/21 07:46 Pulse Ox 92 L 12/17/21 07:46 FiO2 3 12/16/21 08:31 Intake & Output 12/16/21 12/17/21 12/17/21 18:59 06:59 18:59 Intake Total 1200 3020 Output Total 70 Balance 1130 3020 Intake: Intake, IV Titration 1200 1800 Amount Levofloxacin 500Mg-D5w 100 Pmx 500 mg In Dextrose/ Water 1 100ml.bag @ 100 mls/hr IVPB Q24H [facility] Rx#: [id number] Sodium Chloride 0.9% 1, 1200 1200 000 ml @ 125 mls/hr IV . Q8H [facility] Rx#:[id number] Vancomycin 2,000 mg In 500 Sodium Chloride 0.9% 500 ml 500 ml @ 167 mls/hr IVPB Q16H [facility] Rx#: [id number] Oral 1220 Output: Drainage 70 Right Abdomen 70 Urine 0 Other: Voiding Method External Catheter Toilet - Constitutional General appearance: Present: morbidly obese - EENT Eyes: Absent: abnormal pupil - Neck Neck: Absent: lymphadenopathy - Respiratory Respiratory: bilateral: diminished - Cardiovascular Rhythm: irregularly irregular Heart sounds: normal: S1, S2 Abnormal Heart Sounds: Absent: S3 Gallop - Gastrointestinal General gastrointestinal: Present: distended, soft, tenderness - Integumentary Integumentary: Absent: cellulitis - Psychiatric Psychiatric: Present: A&O x's 3 - Labs CBC & Chem 7: 12/16/21 08:53 12/16/21 06:12 Labs: Abnormal Lab Results - Last 24 Hours (Table) 12/16/21 12/16/21 12/16/21 Range/Units 06:12 06:12 08:53 RBC 3.47 L 3.64 L (4.10-5.20) X 10*6/uL Hgb 9.7 L 10.5 L (12.0-15.0) g/dL Hct 31.1 L 33.4 L (37.2-46.3) % MCHC 31.2 L (32.0-37.0) g/dL RDW 15.9 H (11.5-14.5) % Lymphocytes # 0.72 L (0.90-5.00) X 10*3/uL Eosinophils # 0.03 L (0.04-0.35) X 10*3/uL Anion Gap 9.90 L (10.00-18.00) mmol/L Est GFR (CKD-EPI)AfAm 54.9 L (60.0-200.0) Est GFR (CKD-EPI)NonAf 47.4 L (60.0-200.0) Glucose 125 H (70-110) mg/dL POC Glucose (mg/dL) (70-110) mg/dL Calcium 7.6 L (8.7-10.3) mg/dL Total Bilirubin 3.50 H (0.30-1.20) mg/dL AST 82 H (13-35) U/L ALT 49 H (8-44) U/L Alkaline Phosphatase 189 H (41-126) U/L Total Protein 5.3 L (6.2-8.2) g/dL Albumin 2.6 L (3.8-4.9) g/dL Albumin/Globulin Ratio 0.96 L (1.60-3.17) g/dL 12/16/21 12/16/21 12/16/21 Range/Units 11:28 16:32 19:39 RBC (4.10-5.20) X 10*6/uL Hgb (12.0-15.0) g/dL Hct (37.2-46.3) % MCHC (32.0-37.0) g/dL RDW (11.5-14.5) % Lymphocytes # (0.90-5.00) X 10*3/uL Eosinophils # (0.04-0.35) X 10*3/uL Anion Gap (10.00-18.00) mmol/L Est GFR (CKD-EPI)AfAm (60.0-200.0) Est GFR (CKD-EPI)NonAf (60.0-200.0) Glucose (70-110) mg/dL POC Glucose (mg/dL) 140 H 128 H 155 H (70-110) mg/dL Calcium (8.7-10.3) mg/dL Total Bilirubin (0.30-1.20) mg/dL AST (13-35) U/L ALT (8-44) U/L Alkaline Phosphatase (41-126) U/L Total Protein (6.2-8.2) g/dL Albumin (3.8-4.9) g/dL Albumin/Globulin Ratio (1.60-3.17) g/dL Microbiology - Last 24 Hours (Table) 12/15/21 03:42 Blood Culture - Final Blood 12/15/21 02:22 Blood Culture - Final Blood 12/15/21 03:42 Blood Culture Gram Stain - Preliminary Blood Blood Culture - Preliminary Streptococcus species 12/15/21 15:30 Gram Stain - Preliminary Other - Other Wound Culture - Preliminary Gram Neg Bacilli 12/15/21 02:20 Blood Culture Gram Stain - Preliminary Blood Assessment and Plan (1) Chills Current Visit: Yes Status: Acute Code(s): R68.83 - CHILLS (WITHOUT FEVER) SNOMED Code(s): 00286635 (2) Cholecystitis Current Visit: Yes Status: Acute Code(s): K81.9 - CHOLECYSTITIS, UNSPECIFIED SNOMED Code(s): 06564554 (3) History of atrial fibrillation Current Visit: Yes Status: Acute Code(s): Z86.79 - PERSONAL HISTORY OF OTHER DISEASES OF THE CIRCULATORY SYSTEM SNOMED Code(s): 835746742 (4) Back pain Current Visit: No Status: Acute Code(s): M54.9 - DORSALGIA, UNSPECIFIED SNOMED Code(s): 150727159 (5) Diabetes Current Visit: No Status: Acute Code(s): E11.9 - TYPE 2 DIABETES MELLITUS WITHOUT COMPLICATIONS SNOMED Code(s): 99780535 (6) Generalized weakness Current Visit: No Status: Acute Code(s): R53.1 - WEAKNESS SNOMED Code(s): 08485293 (7) Hyperlipidemia Current Visit: No Status: Acute Code(s): E78.5 - HYPERLIPIDEMIA, UNSPECIFIED SNOMED Code(s): 69275265 (8) Hypertension Current Visit: No Status: Acute Code(s): I10 - ESSENTIAL (PRIMARY) HYPERTENSION SNOMED Code(s): 91372423 (9) Hypothyroidism Current Visit: No Status: Acute Code(s): E03.9 - HYPOTHYROIDISM, UNSPECIFIED SNOMED Code(s): 79864405 Plan: We'll continue to follow with general surgery. Reconcile medications. Check CBC and CMP in a.m. Advance diet per surgery. Restart anticoagulation per surgery clearance.
[2021-12-17] MEDS: SODIUM CHLORIDE 0.9% 1,000 ML IV SCH ×3 (09:03→22:45)
[2021-12-17 09:11] LABS: Basophils % (A) 1 %; Eosinophils # (A) 0.3 k/uL (0-0.7); Eosinophils % (A) 4 %; HCT 31.7 % (34.0-46.0); HGB 9.6 gm/dL (11.4-16.0); Hypochromasia Marked; Lymphocytes % (A) 13 %; MCH 28.1 pg (25.0-35.0); MCHC 30.4 g/dL (31.0-37.0); MCV 92.4 fL (80.0-100.0); Monocytes # (A) 0.4 k/uL (0-1.0); Monocytes % (A) 5 %; Neutrophils # (A) 5.6 k/uL (1.3-7.7); Neutrophils % (A) 75 %; Platelet Count 168 k/uL (150-450); RBC 3.43 m/uL (3.80-5.40); RDW 15.4 % (11.5-15.5); WBC 7.4 k/uL (3.8-10.6)
[2021-12-17 10:07] LABS: African American GFR (CKD) 44.9 (60.0-200.0); Albumin 2.4 g/dL (3.8-4.9); Albumin/Globulin Ratio 0.83 (1.60-3.17); Anion Gap 9.9 mmol/L (10.00-18.00); BUN/Creat Ratio 18.54 Ratio (12.00-20.00); Blood Urea Nitrogen 24.1 mg/dL (9.0-27.0); Calcium 7.9 mg/dL (8.7-10.3); Carbon Dioxide 23.1 mmol/L (20.0-27.5); Globulin 2.9 g/dL (1.6-3.3); Non-African American GFR(CKD) 38.7 (60.0-200.0); Potassium 4.2 mmol/L (3.5-5.5); Total Bilirubin 3.1 mg/dL (0.30-1.20); Total Protein 5.3 g/dL (6.2-8.2)
[2021-12-17 11:17] LABS: Glucose,Whole Blood 71 mg/dL (70-110)
[2021-12-17] MEDS: POTASSIUM CHLORIDE ER 10 MEQ TAB.ER.PRT PO SCH (12:18)
--- NOTE | 2021-12-17 13:55 | CDI ---
Documentation Clarification Form Date: 12/17/2021 01:31:41 PM From: Lauren King RN CCDS Admit Date: 12/15/2021 05:25:00 AM Patient Name: Rosalva Lr Visit Number: [id number] Discharge Date: ATTENTION: The Clinical Documentation Specialists (CDI) and [facility] Coding Staff appreciate your assistance in clarifying documentation. Please respond to the clarification below the line at the bottom and electronically sign. The CDI & [facility] Coding staff will review the response and follow-up if needed. Please note: Queries are made part of the Legal Health Record. If you have any questions, please contact the author of this message via ITS. Dr. Darius Cruz Sepsis is documented H&P, 12/17, but is not noted in subsequent documentation. Clarification is requested. History/Risk Factors: 81-year-old female presents to the ED with temp of 101 at home, abdominal pain and chills. Medical history: Atiral fibrillation; DM, HLD and renal disease. 12/15, H&P. Clinical Indicators: VSS: B/P 127/62; HR 98; Temp 99.3 F Oral; SpO2 92% room air LABS: 12/15 Wbc 11.4; Neutrophils 9.2 Blood Culture: 12/15 Alpha Hemolytic Streptococcus Wound Culture: 12/15 Gram negative Bacilli ABD PELV CT: 12/15 There is fat stranding right upper quadrant around the gallbladder there is gallbladder wall thickening. This is consistent with acute and chronic cholecystitis. Gallbladder wall thickening significantly increased compared to the old exam. No dilated ducts. There is small irregular 3 cm fluid collection posterior to the gallbladder fundus. Gallbladder rupture is possible Treatment: 12/15 Open cholecystectomy. Antibiotics: 12/15 Levofloxacin IVPB x 1; 12/15 Flagyl PO TID; 12/15 12/16 Vancomycin IVPB Q12H, 12/16 12/17 Levaquin IVPB Q24H; 12/16 - 12/16 Vancomycin IVPB Q16HR. Fluids: 12/15 0.9NS 1L bolus x 2; 12/15 0.9NS IVFL 125cc/hr; Please clarify if the Sepsis is: [ xxxx ] Sepsis confirmed, remains under treatment [ ] Sepsis confirmed, resolved [ ] Sepsis ruled out [ ] Other condition, please specify [ ] Unable to determine (Template Last Revised: April 2020) MTDD
--- NOTE | 2021-12-17 14:37 | P.PN ---
Subjective Progress Note Date: 12/17/21 CHIEF COMPLAINT: Fever and chills HISTORY OF PRESENT ILLNESS: Patient is postop day #2 status post diagnostic laparoscopy with open cholecystectomy for acute on chronic cholecystitis, empyema gallbladder and cholelithiasis. Patient is sitting up at bedside chair. Patient reports her pain is controlled. She denies any nausea or vomiting. Per nursing staff she is not moving much. Patient has worked with physical therapy. She is going to require rehab placement at discharge. Afebrile. WBC is 7.4 hemoglobin is 9.6 kg or 168 sodium is 136 potassium 4.2 creatinine 1.3 total bilirubin is down slightly from 3.5-3.10 AST is down from 82-66 ALT has normalized at 39 and alk phos trended down from 189-176. Blood culture 2 growing alpha hemolytic streptococcus. Repeat blood culture pending Wound culture gram-negative bacilli. SYL drain 70 mL serosanguineous output Patient seen and examined with Dr. sy PHYSICAL EXAM: VITAL SIGNS: Reviewed. GENERAL: Well-developed in no acute distress. HEENT: No sclera icterus. Extraocular movements grossly intact. Moist buccal mucosa. Head is atraumatic, normocephalic. ABDOMEN: Soft. Nondistended. Incisional dressing clean dry and intact. SYL drain serosanguineous output Neuro: Alert and oriented. Cranial nerves II through XII grossly intact. ASSESSMENT: 1. Acute on chronic cholecystitis, empyema gallbladder, cholelithiasis status post open cholecystectomy PLAN: -Continue clear liquid diet -Continue antibiotics -Consult infectious disease for possible blood cultures -Continue to hold Eliquis -Encouraged patient to increase activity level -Encouraged patient to use incentive spirometer -Continue to work with PT OT -Consult rn field case manager for possible ECF placement -GI prophylaxis Protonix and DVT prophylaxis subcu heparin Physician Science Manager note has been reviewed by physician. Signing provider agrees with the documented findings, assessment, and plan of care. Objective - Vital Signs Vital signs: Vital Signs Temp 96.9 F L 12/17/21 13:31 Pulse 69 12/17/21 13:31 Resp 16 12/17/21 13:31 BP 129/66 12/17/21 13:31 Pulse Ox 100 12/17/21 13:31 FiO2 3 12/16/21 08:31 Intake & Output 12/16/21 12/17/21 12/17/21 18:59 06:59 18:59 Intake Total 1200 3020 Output Total 70 Balance 1130 3020 Intake: Intake, IV Titration 1200 1800 Amount Levofloxacin 500Mg-D5w 100 Pmx 500 mg In Dextrose/ Water 1 100ml.bag @ 100 mls/hr IVPB Q24H [facility] Rx#: [id number] Sodium Chloride 0.9% 1, 1200 1200 000 ml @ 125 mls/hr IV . Q8H [facility] Rx#:[id number] Vancomycin 2,000 mg In 500 Sodium Chloride 0.9% 500 ml 500 ml @ 167 mls/hr IVPB Q16H [facility] Rx#: [id number] Oral 1220 Output: Drainage 70 Right Abdomen 70 Urine 0 Other: Voiding Method External Catheter Toilet Toilet - Labs CBC & Chem 7: 12/17/21 03:56 12/17/21 03:56 Labs: Abnormal Lab Results - Last 24 Hours (Table) 12/16/21 12/16/21 12/17/21 Range/Units 16:32 19:39 03:56 RBC (3.80-5.40) m/uL Hgb (11.4-16.0) gm/dL Hct (34.0-46.0) % MCHC (31.0-37.0) g/dL Anion Gap 9.90 L (10.00-18.00) mmol/L Est GFR (CKD-EPI)AfAm 44.9 L (60.0-200.0) Est GFR (CKD-EPI)NonAf 38.7 L (60.0-200.0) POC Glucose (mg/dL) 128 H 155 H (70-110) mg/dL Calcium 7.9 L (8.7-10.3) mg/dL Total Bilirubin 3.10 H (0.30-1.20) mg/dL AST 66 H (13-35) U/L Alkaline Phosphatase 176 H (41-126) U/L Total Protein 5.3 L (6.2-8.2) g/dL Albumin 2.4 L (3.8-4.9) g/dL Albumin/Globulin Ratio 0.83 L (1.60-3.17) g/dL 12/17/21 Range/Units 03:56 RBC 3.43 L (3.80-5.40) m/uL Hgb 9.6 L (11.4-16.0) gm/dL Hct 31.7 L (34.0-46.0) % MCHC 30.4 L (31.0-37.0) g/dL Anion Gap (10.00-18.00) mmol/L Est GFR (CKD-EPI)AfAm (60.0-200.0) Est GFR (CKD-EPI)NonAf (60.0-200.0) POC Glucose (mg/dL) (70-110) mg/dL Calcium (8.7-10.3) mg/dL Total Bilirubin (0.30-1.20) mg/dL AST (13-35) U/L Alkaline Phosphatase (41-126) U/L Total Protein (6.2-8.2) g/dL Albumin (3.8-4.9) g/dL Albumin/Globulin Ratio (1.60-3.17) g/dL Microbiology - Last 24 Hours (Table) 12/15/21 02:20 Blood Culture Gram Stain - Preliminary Blood Blood Culture - Preliminary Alpha Hemolytic Streptococcus 12/15/21 03:42 Blood Culture Gram Stain - Preliminary Blood Blood Culture - Preliminary Alpha Hemolytic Streptococcus 12/15/21 03:42 Blood Culture - Final Blood 12/15/21 02:22 Blood Culture - Final Blood 12/15/21 15:30 Gram Stain - Preliminary Other - Other Wound Culture - Preliminary Gram Neg Bacilli
[2021-12-17 16:12] LABS: Glucose,Whole Blood 78 mg/dL (70-110)
[2021-12-17] MEDS: methocarbamoL 500 MG TAB PO PRN (16:43)
[2021-12-17] MEDS: metFORMIN 500 MG TAB PO SCH (17:02)
[2021-12-17 19:25] LABS: Glucose,Whole Blood 77 mg/dL (70-110)
[2021-12-17 20:04] LABS: Appearance,Urine Cloudy (Clear); Bacteria,Urine Rare /hpf; Bilirubin,Urine 1+ (Negative); Blood,Urine Negative (Negative); Color,Urine Dark Yellow; Glucose,Urine (UA) Negative (Negative); Ketones,Urine Negative (Negative); Leukocyte Esterase,Urine Moderate (Negative); Mucus,Urine Rare /hpf; Nitrite,Urine Negative (Negative); Protein,Urine Trace (Negative); RBC,Urine 5 /hpf (0-5); Specific Gravity,Urine 1.017 (1.001-1.035); Squamous Epithelial Cell,Urine 4 /hpf (0-4); WBC,Urine 23 /hpf (0-5)
[2021-12-17] MEDS: LEVOTHYROXINE 137 MCG TAB PO SCH (21:25)
[2021-12-17] MEDS: LATANOPROST 0.005% OPHTH DROPS 2.5 ML BTL BOTH EYES SCH (21:26)
[2021-12-17] MEDS: VANCOMYCIN 2,000 MG in SODIUM CHLORIDE 0.9% 500 ML 500 ML IVPB SCH ×2 (21:26→22:45)
[2021-12-18 04:33] LABS: HGB 9.7 gm/dL (11.4-16.0); Hypochromasia Marked; MCH 28.7 pg (25.0-35.0); MCHC 31.2 g/dL (31.0-37.0); Mean Platelet Volume 8.5; Platelet Count 161 k/uL (150-450); RBC 3.37 m/uL (3.80-5.40); WBC 6.7 k/uL (3.8-10.6)
[2021-12-18] MEDS: KETOROLAC 15 MG/ML 1 ML VIAL IVP SCH ×4 (06:05→23:45)
[2021-12-18 06:56] LABS: Glucose,Whole Blood 52 mg/dL (70-110)
[2021-12-18 08:27] LABS: Glucose,Whole Blood 49 mg/dL (70-110)
[2021-12-18 08:48] LABS: Glucose,Whole Blood 57 mg/dL (70-110)
[2021-12-18] MEDS ORDERED: DEXTROSE 50% SYRINGE 50 ML IVP ONE (08:48)
[2021-12-18] MEDS: INSULIN DETEMIR (LEVEMIR) 100 UNIT/ML SYR SQ SCH (08:53)
[2021-12-18] MEDS: PANTOPRAZOLE 40 MG TABLET PO SCH (08:59)
[2021-12-18] MEDS: DOCUSATE 100 MG CAP PO SCH ×2 (08:59→17:08)
[2021-12-18] MEDS: FUROSEMIDE 40 MG TAB PO SCH ×2 (08:59→17:07)
[2021-12-18] MEDS: MULTIVITAMINS, THERA 1 EACH TAB PO SCH (08:59)
[2021-12-18] MEDS: TAMSULOSIN 0.4 MG CAP.ER.24H PO SCH (08:59)
[2021-12-18] MEDS: SODIUM CHLORIDE 0.9% 1,000 ML IV SCH ×3 (08:59→23:46)
[2021-12-18] MEDS: metroNIDAZOLE 500 MG TAB PO SCH ×3 (08:59→22:00)
[2021-12-18] MEDS: GABAPENTIN 400 MG CAP PO SCH ×2 (08:59→17:08)
[2021-12-18] MEDS: CALCIUM CARB-VIT D 500 MG-5 MCG TAB PO SCH ×2 (08:59→17:08)
[2021-12-18] MEDS: METOPROLOL TARTRATE 50 MG TAB PO SCH ×2 (09:00→17:07)
[2021-12-18] MEDS: HEPARIN SODIUM,PORCINE/PF 5,000 UNIT/0.5 ML SYRINGE SQ SCH ×2 (09:00→22:00)
[2021-12-18] MEDS: polyethylene glycoL 3350 17 GM POWD.PACK PO SCH (09:00)
[2021-12-18] MEDS: DIGOXIN 125 MCG TAB PO SCH (09:01)
[2021-12-18] MEDS: HYDROcodone/APAP 7.5-325MG 1 EACH TAB PO SCH ×4 (09:01→22:00)
[2021-12-18] MEDS: MAGNESIUM OXIDE 400 MG TAB PO SCH (09:01)
[2021-12-18] MEDS: OXYBUTYNIN 10 MG TAB.ER.24 PO SCH (09:02)
[2021-12-18] MEDS: predniSONE 5 MG TAB PO SCH (09:02)
[2021-12-18] MEDS: AMIODARONE 100 MG TAB PO SCH (09:02)
[2021-12-18 09:14] LABS: Glucose,Whole Blood 176 mg/dL (70-110)
--- NOTE | 2021-12-18 09:14 | P.CONS ---
History of Present Illness - Reason for Consult Consult date: 12/17/21 - History of Present Illness Patient is a 81-year-old female presenting to the ER on 15 December 2021 for evaluation of chills started 9 PM before presentation to the hospital patient complaining of decreased mobility and also have a chronic back pain but no acute flareup patient denies having any chest pain or shortness of breath or cough has been complaints of abdominal pain and nausea but no vomiting or no di arrhea on presentation to the hospital the patient was afebrile subsequently did spike a fever of 103 F yesterday morning patient has been afebrile since then patient did have a white count of 11.4 admission that has subsequently normalized kidney function has been normal Lumizyme's evaluated urine has been positive COVID and influenza testing was negative patient did have blood cultures coming back positive with alphahemolytic Streptococcus patient did have a chest x-ray coarse pulmonary station infiltrate could be interstitial fibrosis present on previous admission CT abdominal pelvis fat stranding right upper quadrant around the gallbladder and gallbladder wall thickening concerning for acute on chronic cholecystitis patient was taken to the OR on 15 December in this patient noticed to have acute and chronic ostitis empyema of the gallbladder cholelithiasis status post open cholecystectomy abdominal cultures obtained she currently growing gram-negative bacilli infectious disease was consulted today because of positive culture and need for further antibiotic therapy this patient do have a multiple antibiotic allergies Past Medical History Past Medical History: Atrial Fibrillation, Coronary Artery Disease (CAD), Cancer, Diabetes Mellitus, Hyperlipidemia, Hypertension, Musculoskeletal Disorder, Neurologic Disorder, Osteoarthritis (OA), Pneumonia, Renal Disease, Rheumatoid Arthritis (RA), Skin Disorder, Thyroid Disorder Additional Past Medical History / Comment(s): Morbid obesity, chronic atrial fibrillation, diabetes mellitus type 2, hypertension, hyperlipidemia, spinal stenosis, osteoarthritis, hypothyroidism, hypertension, history of skin melanoma, history of bursitis with MRSA post I&D, rheumatoid arthritis, Sjogren's disease, 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 without any indication of ILD related to RA, Fall on July 22 transfer to [facility] for MRI, then Fall on 11/16/21 History of Any Multi-Drug Resistant Organisms: MRSA Year Discovered:: 02/27/14 MDRO Source:: Sputum Past Surgical History: Back Surgery, Breast Surgery, Heart Catheterization, Joint Replacement, Orthopedic Surgery Additional Past Surgical History / Comment(s): Bilateral cataracts with lens implants, arthroscopies to lt wrist, gualberto knees, gualberto ankles, gualberto hips, lt hip replacment and redone, L/R shoulder sxs, rt breast bx-benign, egd/colonoscopy, skin cancer removal L arm, Lumbar fixnation possible broken Past Anesthesia/Blood Transfusion Reactions: No Reported Reaction Additional Past Anesthesia/Blood Transfusion Reaction / Comm: Pt has been told not to have anesthesia metabolized by the kidneys and has neurologic Sjogren's with post anesthesia paralysis. Past Psychological History: No Psychological Hx Reported Additional Psychological History / Comment(s): Pt currently at [facility] for rehab which spouse states "has not been going well". She has stood with assist/walker only. Smoking Status: Former smoker Past Alcohol Use History: None Reported Additional Past Alcohol Use History / Comment(s): Pt started smoking in 1961 and quit in 1969 Past Drug Use History: None Reported - Past Family History Mother Family Medical History: CVA/TIA Additional Family Medical History / Comment(s): RUPTURED BOWEL Father Family Medical History: Cancer, Pneumonia Additional Family Medical History / Comment(s): ASPIRATIVE PNA Sister(s) Additional Family Medical History / Comment(s): at age 34 with lupus Medications and Allergies Home Medications Medication Instructions Recorded Confirmed Type Latanoprost [Xalatan 0.005%] 1 drop BOTH EYES HS 08/11/17 12/15/21 History Insulin Lispro [humaLOG Kwikpen] See Protocol SQ AC-TID 09/25/18 12/15/21 History Multivitamins, Thera [Multivitamin 1 tab PO DAILY 11/19/18 12/15/21 History (formulary)] predniSONE 5 mg PO DAILY 07/23/21 12/15/21 History Amiodarone HCl [Cordarone] 100 mg PO DAILY 08/30/21 12/15/21 History Apixaban [Eliquis] 5 mg PO BID@0900,1700 08/30/21 12/15/21 History Dicyclomine [Bentyl] 10 mg PO Q8H PRN 08/30/21 12/15/21 History Famotidine [Pepcid] 10 mg PO Q12H PRN 08/30/21 12/15/21 History Insulin Glargine,Hum.rec.anlog 30 units SQ Q12H 08/30/21 12/15/21 History [Lantus Solostar Pen] Magnesium Oxide 400 mg PO DAILY 08/30/21 12/15/21 History Metoprolol Tartrate [Lopressor] 100 mg PO BID@0900,1700 08/30/21 12/15/21 History Omeprazole 20 mg PO DAILY 08/30/21 12/15/21 History Oxybutynin Chloride [Oxybutynin 10 mg PO DAILY 08/30/21 12/15/21 History Chloride ER] Tamsulosin [Flomax] 0.4 mg PO DAILY 08/30/21 12/15/21 History methocarbamoL [Methocarbamol] 1,000 mg PO Q6H PRN 08/30/21 12/15/21 History polyethylene glycoL 3350 [Miralax] 17 gm PO DAILY packet 09/06/21 12/15/21 Rx Calcium Citrate/Vitamin D3 1 tab PO BID@0900,1700 11/16/21 12/15/21 History [Citracal + D Maximum Caplet] Clotrimazole [Lotrimin AF] 1 applic TOPICAL DAILY PRN 11/16/21 12/15/21 History Digoxin [Lanoxin] 125 mcg PO Q48H 11/16/21 12/15/21 History Docusate [Colace] 100 mg PO BID@0900,1700 11/16/21 12/15/21 History Furosemide [Lasix] 40 mg PO BID@0900,1700 11/16/21 12/15/21 History Levothyroxine Sodium 150 mcg PO MOTUWE@209911/16/21 12/15/21 History Levothyroxine Sodium [Synthroid] 137 mcg PO SUTHFRSA@209911/16/21 12/15/21 History Nitroglycerin Sl Tabs [Nitrostat] 0.4 mg SL Q5M PRN 11/16/21 12/15/21 History Potassium Chloride ER [K-Dur 10] 10 meq PO DAILY@1200 11/16/21 12/15/21 History metFORMIN HCL ER [Glucophage XR] 500 mg PO DAILY@1700 11/16/21 12/15/21 History Gabapentin 800 mg PO BID@0900,1700 #6 tab 11/19/21 12/15/21 Rx HYDROcodone/APAP 7.5-325MG [[place] 1 tab PO QID #12 tab 11/19/21 12/15/21 Rx 7.5-325] Allergies Allergy/AdvReac Type Severity Reaction Status Date / Time adhesive Allergy Rash/Hives Verified 11/16/21 11:56 cephalexin [From Keflex] Allergy Rash/Hives Verified 11/16/21 11:56 grass pollen Allergy Unknown Verified 11/16/21 11:56 mold Allergy Unknown Verified 11/16/21 11:56 Sulfa (Sulfonamide Allergy Rash/Hives Verified 11/16/21 11:56 Antibiotics) newspaper ink Allergy Mild Unknown Uncoded 11/16/21 11:56 Physical Exam Vitals: Vital Signs Temp Pulse Pulse Resp BP Pulse Ox 12/17/21 07:46 97.6 F 66 15 118/64 92 L 12/17/21 02:48 98.2 F 82 16 116/64 99 12/16/21 20:52 114 H 70 17 12/16/21 19:36 98.1 F 70 17 98/60 93 L 12/16/21 13:58 97.5 F L 76 17 105/57 97 Intake and Output 12/16/21 12/17/21 12/17/21 22:59 06:59 14:59 Intake Total 1700 2520 Output Total 70 Balance 1630 2520 Intake: Intake, IV Titration 1200 1800 Amount Levofloxacin 500Mg-D5w 100 Pmx 500 mg In Dextrose/ Water 1 100ml.bag @ 100 mls/hr IVPB Q24H [facility] Rx#: [id number] Sodium Chloride 0.9% 1, 1200 1200 000 ml @ 125 mls/hr IV . Q8H [facility] Rx#:[id number] Vancomycin 2,000 mg In 500 Sodium Chloride 0.9% 500 ml 500 ml @ 167 mls/hr IVPB Q16H [facility] Rx#: [id number] Oral 500 720 Output: Drainage 70 Right Abdomen 70 Urine 0 Other: Voiding Method Toilet Toilet Results CBC & Chem 7: 12/18/21 03:05 12/17/21 03:56 Labs: Abnormal Lab Results - Last 24 Hours (Table) 12/16/21 12/16/21 12/17/21 Range/Units 16:32 19:39 03:56 RBC (3.80-5.40) m/uL Hgb (11.4-16.0) gm/dL Hct (34.0-46.0) % MCHC (31.0-37.0) g/dL Anion Gap 9.90 L (10.00-18.00) mmol/L Est GFR (CKD-EPI)AfAm 44.9 L (60.0-200.0) Est GFR (CKD-EPI)NonAf 38.7 L (60.0-200.0) POC Glucose (mg/dL) 128 H 155 H (70-110) mg/dL Calcium 7.9 L (8.7-10.3) mg/dL Total Bilirubin 3.10 H (0.30-1.20) mg/dL AST 66 H (13-35) U/L Alkaline Phosphatase 176 H (41-126) U/L Total Protein 5.3 L (6.2-8.2) g/dL Albumin 2.4 L (3.8-4.9) g/dL Albumin/Globulin Ratio 0.83 L (1.60-3.17) g/dL 12/17/21 Range/Units 03:56 RBC 3.43 L (3.80-5.40) m/uL Hgb 9.6 L (11.4-16.0) gm/dL Hct 31.7 L (34.0-46.0) % MCHC 30.4 L (31.0-37.0) g/dL Anion Gap (10.00-18.00) mmol/L Est GFR (CKD-EPI)AfAm (60.0-200.0) Est GFR (CKD-EPI)NonAf (60.0-200.0) POC Glucose (mg/dL) (70-110) mg/dL Calcium (8.7-10.3) mg/dL Total Bilirubin (0.30-1.20) mg/dL AST (13-35) U/L Alkaline Phosphatase (41-126) U/L Total Protein (6.2-8.2) g/dL Albumin (3.8-4.9) g/dL Albumin/Globulin Ratio (1.60-3.17) g/dL Microbiology - Last 24 Hours (Table) 12/15/21 02:20 Blood Culture Gram Stain - Preliminary Blood Blood Culture - Preliminary Alpha Hemolytic Streptococcus 12/15/21 03:42 Blood Culture Gram Stain - Preliminary Blood Blood Culture - Preliminary Alpha Hemolytic Streptococcus 12/15/21 03:42 Blood Culture - Final Blood 12/15/21 02:22 Blood Culture - Final Blood 12/15/21 15:30 Gram Stain - Preliminary Other - Other Wound Culture - Preliminary Gram Neg Bacilli Assessment and Plan Plan: 1patient presented to hospital with sepsis in this patient with a fever elevated white count source is likely acute on chronic ascites with empyema of the gallbladder status post open cholecystectomy in this patient abdominal cultures currently growing gram-negative Monnette enteric pathogen. 2positive blood culture with alphahemolytic Streptococcus possible skin contamination as currently no other obvious focus of infection. 3antibiotic allergies that would limit the number of antibiotics safe to use. 4continue with Levaquin however discontinue vancomycin and add Azactam for better gram-negative coverage We will follow on clinical condition and cultures to further adjust medication if needed Thank you for this consultation will follow this patient along with you Time with Patient: Greater than 30
[2021-12-18] MEDS ORDERED: DEXTROSE 50% SYRINGE 50 ML IVP PRN ×2 (09:38)
[2021-12-18] MEDS: AZTREONAM 2 GM in SODIUM CHLORIDE 0.9% 100 ML IVPB SCH ×2 (10:04→17:09)
[2021-12-18] MEDS: ONDANSETRON 4 MG/2 ML VIAL IVP PRN (10:47)
[2021-12-18 11:04] LABS: Glucose,Whole Blood 94 mg/dL (70-110)
[2021-12-18 11:05] LABS: African American GFR (CKD) 49.4 (60.0-200.0); Albumin 2.4 g/dL (3.8-4.9); Albumin/Globulin Ratio 0.83 (1.60-3.17); Anion Gap 7.8 mmol/L (10.00-18.00); BUN/Creat Ratio 20.67 Ratio (12.00-20.00); Blood Urea Nitrogen 24.8 mg/dL (9.0-27.0); Calcium 7.8 mg/dL (8.7-10.3); Carbon Dioxide 24.2 mmol/L (20.0-27.5); Globulin 2.9 g/dL (1.6-3.3); Non-African American GFR(CKD) 42.6 (60.0-200.0); Potassium 4.1 mmol/L (3.5-5.5); Total Bilirubin 2.4 mg/dL (0.30-1.20); Total Protein 5.3 g/dL (6.2-8.2)
[2021-12-18] MEDS: PANTOPRAZOLE 40 MG/10 ML VIAL IVP SCH ×2 (12:39→22:00)
[2021-12-18] MEDS: POTASSIUM CHLORIDE ER 10 MEQ TAB.ER.PRT PO SCH (12:40)
[2021-12-18] MEDS: INSULIN ASPART (NovoLOG) 100 UNIT/ML VIAL SQ SCH ×3 (12:41→22:00)
--- NOTE | 2021-12-18 15:58 | P.PN ---
Subjective Progress Note Date: 12/18/21 Cholecystitis status post post cystectomy The patient is postop day #2 for infected cholecystitis. The patient is doing well however complaining of urinary retention. We will follow this closely. Increase mobilization as possible. Appreciate PT/OT. 12/18/2021 Patient is seen today post up for open cholecystectomy with general surgery following. Patient is continued on IV abx and awaiting cultures. Patient is on clear liquid diet and is tolerating. Blood sugars have been running low and recommend to monitor accuchecks achs and will add sliding scale. Hold long acting BID. Encouraged increased activity as tolerated. ID following. Afebrile and denies chest pain or worsening shortness of breath. PHysical exam: GENERAL: Alert and oriented 3 ,SItting up in bed, obese HEENT: Normocephalic. Pupils reactive. Neck: supple, no lymphadenopathy noted CHEST EXAMINATION: diminished breath sounds bilaterally with no wheezing or rhonchi noted CARDIAC: S1, S2 muffled ABDOMEN: Soft. mildly tender, mildly distended. Bowel sounds normal. No organomegaly. No guarding. Extremities: reveal no edema. No clubbing or cyanosis Neurological: Cranial nerves 2 through 12 grossly intact. No focal deficits noted Skin: Warm and dry, No rash. Assessment: Cholecystitis s/p open cholecystectomy History of atrial fibrillation Back pain Diabetes type 2, insulin dependent Generalized weakness Hyperlipidemia Hypertension GI and DVT prophylaxis Full code Plan: Continue on current medication regimen ,monitoring and symptomatic treatment. Continue to monitor blood sugars achs. Blood sugars have been low and recommend continuing with sliding scale and hold long acting bid for now Continue on clear liquid per surgery and advance when surgical increases the d iet Resume anticoagulation when surgery clears Continue IV antibiotics with ID following Prognosis guarded given multiple complex medical issues. Further recommendations to follow based on the clinical course of the patient. We will continue to follow with surgery during hospitalization, Thank you for this consultation The impression and plan of care has been dictated as a scribe by Kimberlee Lopez, nurse practitioner as directed. Dr. Vivek MD I have performed a history and examination and MDM of this patient, discussed the same with the dictator, and has been documented as a scribe. Based on total visit time, I have performed more than 50% of the visit. Any additional findings or plans will be noted. Objective - Vital Signs Vital signs: Vital Signs Temp 97.3 F L 12/18/21 02:35 Pulse 65 12/18/21 02:35 Resp 16 12/18/21 02:35 BP 112/61 12/18/21 02:35 Pulse Ox 99 12/18/21 02:35 FiO2 3 12/16/21 08:31 Intake & Output 12/17/21 12/18/21 12/18/21 18:59 06:59 18:59 Intake Total 1700 Output Total 105 Balance 1595 Intake: Intake, IV Titration 1700 Amount Sodium Chloride 0.9% 1, 1200 000 ml @ 125 mls/hr IV . Q8H [facility] Rx#:[id number] Vancomycin 2,000 mg In 500 Sodium Chloride 0.9% 500 ml 500 ml @ 167 mls/hr IVPB Q24H [facility] Rx#: [id number] Output: Drainage 105 Right Abdomen 105 Other: Voiding Method Toilet Bedpan # Voids 1 # Bowel Movements 1 - Labs CBC & Chem 7: 12/18/21 03:05 12/18/21 03:05 Labs: Abnormal Lab Results - Last 24 Hours (Table) 12/17/21 12/17/21 12/17/21 Range/Units 03:56 03:56 19:44 RBC 3.43 L (3.80-5.40) m/uL Hgb 9.6 L (11.4-16.0) gm/dL Hct 31.7 L (34.0-46.0) % MCHC 30.4 L (31.0-37.0) g/dL Anion Gap 9.90 L (10.00-18.00) mmol/L Est GFR (CKD-EPI)AfAm 44.9 L (60.0-200.0) Est GFR (CKD-EPI)NonAf 38.7 L (60.0-200.0) POC Glucose (mg/dL) (70-110) mg/dL Calcium 7.9 L (8.7-10.3) mg/dL Total Bilirubin 3.10 H (0.30-1.20) mg/dL AST 66 H (13-35) U/L Alkaline Phosphatase 176 H (41-126) U/L Total Protein 5.3 L (6.2-8.2) g/dL Albumin 2.4 L (3.8-4.9) g/dL Albumin/Globulin Ratio 0.83 L (1.60-3.17) g/dL Urine Appearance Cloudy H (Clear) Urine Protein Trace H (Negative) Urine Bilirubin 1+ H (Negative) Ur Leukocyte Esterase Moderate H (Negative) Urine WBC 23 H (0-5) /hpf Urine Bacteria Rare H (None) /hpf Urine Mucus Rare H (None) /hpf 12/18/21 12/18/21 Range/Units 03:05 06:55 RBC 3.37 L (3.80-5.40) m/uL Hgb 9.7 L (11.4-16.0) gm/dL Hct 31.0 L (34.0-46.0) % MCHC (31.0-37.0) g/dL Anion Gap (10.00-18.00) mmol/L Est GFR (CKD-EPI)AfAm (60.0-200.0) Est GFR (CKD-EPI)NonAf (60.0-200.0) POC Glucose (mg/dL) 52 L (70-110) mg/dL Calcium (8.7-10.3) mg/dL Total Bilirubin (0.30-1.20) mg/dL AST (13-35) U/L Alkaline Phosphatase (41-126) U/L Total Protein (6.2-8.2) g/dL Albumin (3.8-4.9) g/dL Albumin/Globulin Ratio (1.60-3.17) g/dL Urine Appearance (Clear) Urine Protein (Negative) Urine Bilirubin (Negative) Ur Leukocyte Esterase (Negative) Urine WBC (0-5) /hpf Urine Bacteria (None) /hpf Urine Mucus (None) /hpf Microbiology - Last 24 Hours (Table) 12/17/21 19:44 Urine Culture - Preliminary Urine,Voided 12/16/21 14:56 Blood Culture - Preliminary Blood No Growth after 24 hours 12/15/21 02:20 Blood Culture Gram Stain - Preliminary Blood Blood Culture - Preliminary Alpha Hemolytic Streptococcus 12/15/21 03:42 Blood Culture Gram Stain - Preliminary Blood Blood Culture - Preliminary Alpha Hemolytic Streptococcus 12/15/21 03:42 Blood Culture - Final Blood 12/15/21 02:22 Blood Culture - Final Blood
--- NOTE | 2021-12-18 16:10 | P.PN ---
Subjective Progress Note Date: 12/18/21 CHIEF COMPLAINT: Acute cholecystitis HISTORY OF PRESENT ILLNESS: The patient is a 81-year-old female status post open cholecystectomy for gangrenous cholecystitis. She had positive blood cultures. She reports tolerating liquids and once more to eat. She is having bowel movements. She is voiding spontaneously. ROS: No fevers or chills. No new chest pain. PHYSICAL EXAM: VITAL SIGNS: Reviewed CONSTITUTIONAL: Well developed and in no acute distress. EYES: Conjuctivae without sclera icterus. Extraocular movements grossly intact. HEAD, EARS, NOSE, THROAT: Moist buccal mucosa. Head is atraumatic, normocephalic. Hears conversational speech. No nasal drainage. RESPIRATORY: Non-labored respirations and equal bilateral excursions. CARDIOVASCULAR: Palpable 2+ radial pulses. ABDOMEN: No peritonitis. MUSCULOSKELETAL: No gross deformity of the lower extremities noted. No clubbing. No cyanosis. SKIN: Good skin turgor. Well perfused. NEUROLOGIC: Cranial nerves II through XII grossly intact. No focal or lateralizing signs. PSYCH: Appropriate affect. Alert and oriented to person, place and time. CLINICAL LABS: Reviewed. WBC normal 6.7. Hemoglobin stable 9.6 yesterday, toda y 9.7. Total bilirubin elevated trending down 3.1-2.4. LFTs trending down. MICRO: Alphahemolytic streptococcus 2 and blood cultures. Wound gram-negative bacilli. ASSESSMENT: 1. Gangrenous cholecystitis 2. Bacteremia PLAN: 1. Antibiotic recommendations per Infectious disease 2. Advance diet to full liquid Objective - Vital Signs Vital signs: Vital Signs Temp 97.3 F L 12/18/21 02:35 Pulse 55 L 12/18/21 07:58 Resp 18 12/18/21 07:58 BP 99/61 12/18/21 07:58 Pulse Ox 100 12/18/21 07:58 FiO2 3 12/16/21 08:31 Intake & Output 12/17/21 12/18/21 12/18/21 18:59 06:59 18:59 Intake Total 1700 Output Total 105 Balance 1595 Intake: Intake, IV Titration 1700 Amount Sodium Chloride 0.9% 1, 1200 000 ml @ 125 mls/hr IV . Q8H [facility] Rx#:[id number] Vancomycin 2,000 mg In 500 Sodium Chloride 0.9% 500 ml 500 ml @ 167 mls/hr IVPB Q24H [facility] Rx#: [id number] Output: Drainage 105 Right Abdomen 105 Other: Voiding Method Toilet Bedpan Incontinent External Catheter # Voids 1 # Bowel Movements 1 # Emeses 1 - Labs CBC & Chem 7: 12/18/21 03:05 12/18/21 03:05 Labs: Abnormal Lab Results - Last 24 Hours (Table) 12/17/21 12/18/21 12/18/21 Range/Units 19:44 03:05 03:05 RBC 3.37 L (3.80-5.40) m/uL Hgb 9.7 L (11.4-16.0) gm/dL Hct 31.0 L (34.0-46.0) % Anion Gap 7.80 L (10.00-18.00) mmol/L Est GFR (CKD-EPI)AfAm 49.4 L (60.0-200.0) Est GFR (CKD-EPI)NonAf 42.6 L (60.0-200.0) BUN/Creatinine Ratio 20.67 H (12.00-20.00) Ratio Glucose 50 L (70-110) mg/dL POC Glucose (mg/dL) (70-110) mg/dL Calcium 7.8 L (8.7-10.3) mg/dL Total Bilirubin 2.40 H (0.30-1.20) mg/dL AST 63 H (13-35) U/L Alkaline Phosphatase 185 H (41-126) U/L Total Protein 5.3 L (6.2-8.2) g/dL Albumin 2.4 L (3.8-4.9) g/dL Albumin/Globulin Ratio 0.83 L (1.60-3.17) g/dL Urine Appearance Cloudy H (Clear) Urine Protein Trace H (Negative) Urine Bilirubin 1+ H (Negative) Ur Leukocyte Esterase Moderate H (Negative) Urine WBC 23 H (0-5) /hpf Urine Bacteria Rare H (None) /hpf Urine Mucus Rare H (None) /hpf 12/18/21 12/18/21 12/18/21 Range/Units 06:55 08:23 08:46 RBC (3.80-5.40) m/uL Hgb (11.4-16.0) gm/dL Hct (34.0-46.0) % Anion Gap (10.00-18.00) mmol/L Est GFR (CKD-EPI)AfAm (60.0-200.0) Est GFR (CKD-EPI)NonAf (60.0-200.0) BUN/Creatinine Ratio (12.00-20.00) Ratio Glucose (70-110) mg/dL POC Glucose (mg/dL) 52 L 49 L 57 L (70-110) mg/dL Calcium (8.7-10.3) mg/dL Total Bilirubin (0.30-1.20) mg/dL AST (13-35) U/L Alkaline Phosphatase (41-126) U/L Total Protein (6.2-8.2) g/dL Albumin (3.8-4.9) g/dL Albumin/Globulin Ratio (1.60-3.17) g/dL Urine Appearance (Clear) Urine Protein (Negative) Urine Bilirubin (Negative) Ur Leukocyte Esterase (Negative) Urine WBC (0-5) /hpf Urine Bacteria (None) /hpf Urine Mucus (None) /hpf 12/18/21 Range/Units 09:09 RBC (3.80-5.40) m/uL Hgb (11.4-16.0) gm/dL Hct (34.0-46.0) % Anion Gap (10.00-18.00) mmol/L Est GFR (CKD-EPI)AfAm (60.0-200.0) Est GFR (CKD-EPI)NonAf (60.0-200.0) BUN/Creatinine Ratio (12.00-20.00) Ratio Glucose (70-110) mg/dL POC Glucose (mg/dL) 176 H (70-110) mg/dL Calcium (8.7-10.3) mg/dL Total Bilirubin (0.30-1.20) mg/dL AST (13-35) U/L Alkaline Phosphatase (41-126) U/L Total Protein (6.2-8.2) g/dL Albumin (3.8-4.9) g/dL Albumin/Globulin Ratio (1.60-3.17) g/dL Urine Appearance (Clear) Urine Protein (Negative) Urine Bilirubin (Negative) Ur Leukocyte Esterase (Negative) Urine WBC (0-5) /hpf Urine Bacteria (None) /hpf Urine Mucus (None) /hpf Microbiology - Last 24 Hours (Table) 12/17/21 19:44 Urine Culture - Preliminary Urine,Voided 12/16/21 14:56 Blood Culture - Preliminary Blood No Growth after 24 hours 12/15/21 02:20 Blood Culture Gram Stain - Preliminary Blood Blood Culture - Preliminary Alpha Hemolytic Streptococcus 12/15/21 03:42 Blood Culture Gram Stain - Preliminary Blood Blood Culture - Preliminary Alpha Hemolytic Streptococcus
[2021-12-18] MEDS: methocarbamoL 500 MG TAB PO PRN (16:19)
[2021-12-18 16:56] LABS: Glucose,Whole Blood 88 mg/dL (70-110)
[2021-12-18] MEDS: metFORMIN 500 MG TAB PO SCH (17:08)
[2021-12-18 19:30] LABS: Glucose,Whole Blood 92 mg/dL (70-110)
[2021-12-18] MEDS: LEVOTHYROXINE 137 MCG TAB PO SCH (22:00)
[2021-12-18] MEDS: LATANOPROST 0.005% OPHTH DROPS 2.5 ML BTL BOTH EYES SCH (22:01)
[2021-12-19] MEDS: AZTREONAM 2 GM in SODIUM CHLORIDE 0.9% 100 ML IVPB SCH ×3 (02:10→22:56)
[2021-12-19] MEDS: KETOROLAC 15 MG/ML 1 ML VIAL IVP SCH (05:50)
[2021-12-19 07:07] LABS: Glucose,Whole Blood 50 mg/dL (70-110)
[2021-12-19] MEDS: INSULIN ASPART (NovoLOG) 100 UNIT/ML VIAL SQ SCH ×4 (07:34→21:20)
[2021-12-19 07:47] LABS: African American GFR (CKD) 45 (>60 ml/min/1.73 sqM); Anion Gap 7 mmol/L; Blood Urea Nitrogen 26 mg/dL (7-17); Calcium 7.7 mg/dL (8.4-10.2); Carbon Dioxide 24 mmol/L (22-30); Chloride 105 mmol/L (98-107); Non-African American GFR(CKD) 39 (>60 ml/min/1.73 sqM); Potassium 4.4 mmol/L (3.5-5.1); Sodium 136 mmol/L (137-145)
[2021-12-19 07:52] LABS: Glucose 46 mg/dL (74-99)
[2021-12-19 07:55] LABS: Glucose,Whole Blood 53 mg/dL (70-110)
[2021-12-19] MEDS ORDERED: LEVOFLOXACIN 500MG-D5W PMX 500 MG in DEXTROSE/WATER 1 100ML.BAG IVPB SCH (08:00)
[2021-12-19 08:02] LABS: Basophils % (A) 0 %; Eosinophils # (A) 0.3 k/uL (0-0.7); Eosinophils % (A) 3 %; HCT 31.5 % (34.0-46.0); HGB 9.5 gm/dL (11.4-16.0); Hypochromasia Marked; Lymphocytes # (A) 1.4 k/uL (1.0-4.8); Lymphocytes % (A) 19 %; MCH 28.3 pg (25.0-35.0); MCHC 30.1 g/dL (31.0-37.0); MCV 93.9 fL (80.0-100.0); Mean Platelet Volume 8.6; Monocytes # (A) 0.4 k/uL (0-1.0); Monocytes % (A) 6 %; Neutrophils # (A) 5.4 k/uL (1.3-7.7); Neutrophils % (A) 70 %; Platelet Count 155 k/uL (150-450); RBC 3.35 m/uL (3.80-5.40); RDW 15.1 % (11.5-15.5); WBC 7.7 k/uL (3.8-10.6)
[2021-12-19 08:21] LABS: Glucose,Whole Blood 58 mg/dL (70-110)
[2021-12-19] MEDS: HEPARIN SODIUM,PORCINE/PF 5,000 UNIT/0.5 ML SYRINGE SQ SCH ×2 (08:29→21:19)
[2021-12-19] MEDS: MULTIVITAMINS, THERA 1 EACH TAB PO SCH (08:30)
[2021-12-19] MEDS: MAGNESIUM OXIDE 400 MG TAB PO SCH (08:30)
[2021-12-19] MEDS: METOPROLOL TARTRATE 50 MG TAB PO SCH ×2 (08:30→21:19)
[2021-12-19] MEDS: DOCUSATE 100 MG CAP PO SCH ×2 (08:30→16:21)
[2021-12-19] MEDS: GABAPENTIN 400 MG CAP PO SCH ×2 (08:30→16:21)
[2021-12-19] MEDS: CALCIUM CARB-VIT D 500 MG-5 MCG TAB PO SCH ×2 (08:30→16:21)
[2021-12-19] MEDS: TAMSULOSIN 0.4 MG CAP.ER.24H PO SCH (08:31)
[2021-12-19] MEDS: FUROSEMIDE 40 MG TAB PO SCH ×2 (08:31→16:21)
[2021-12-19] MEDS: metroNIDAZOLE 500 MG TAB PO SCH ×3 (08:33→21:19)
[2021-12-19] MEDS: HYDROcodone/APAP 7.5-325MG 1 EACH TAB PO SCH ×4 (08:33→21:19)
[2021-12-19] MEDS: polyethylene glycoL 3350 17 GM POWD.PACK PO SCH (08:33)
[2021-12-19] MEDS: OXYBUTYNIN 10 MG TAB.ER.24 PO SCH (08:34)
[2021-12-19] MEDS: predniSONE 5 MG TAB PO SCH (08:35)
[2021-12-19] MEDS: SODIUM CHLORIDE 0.9% 1,000 ML IV SCH ×2 (08:37→08:47)
[2021-12-19 08:40] LABS: Glucose,Whole Blood 97 mg/dL (70-110)
[2021-12-19] MEDS: POTASSIUM CHLORIDE ER 10 MEQ TAB.ER.PRT PO SCH (08:47)
[2021-12-19] MEDS: PANTOPRAZOLE 40 MG/10 ML VIAL IVP SCH ×2 (08:47→21:20)
[2021-12-19] MEDS: AMIODARONE 100 MG TAB PO SCH (09:42)
[2021-12-19 11:17] LABS: Glucose,Whole Blood 92 mg/dL (70-110)
--- NOTE | 2021-12-19 14:43 | P.PN ---
Subjective Progress Note Date: 12/19/21 CHIEF COMPLAINT: Acute cholecystitis HISTORY OF PRESENT ILLNESS: The patient is a 81-year-old female status post open cholecystectomy for gangrenous cholecystitis. She had positive blood cultures are now growing E. coli. Antibiotic changes per infectious disease appreciated. Patient is resting comfortably. She is having bowel movements. ROS: No fevers or chills. No new chest pain. PHYSICAL EXAM: VITAL SIGNS: Reviewed CONSTITUTIONAL: Well developed and in no acute distress. EYES: Conjuctivae without sclera icterus. Extraocular movements grossly intact. HEAD, EARS, NOSE, THROAT: Moist buccal mucosa. Head is atraumatic, normocephalic. Hears conversational speech. No nasal drainage. RESPIRATORY: Non-labored respirations and equal bilateral excursions. CARDIOVASCULAR: Palpable 2+ radial pulses. ABDOMEN: No peritonitis. MUSCULOSKELETAL: No gross deformity of the lower extremities noted. No clubbing. No cyanosis. SKIN: Good skin turgor. Well perfused. NEUROLOGIC: Cranial nerves II through XII grossly intact. No focal or lateralizing signs. PSYCH: Appropriate affect. Alert and oriented to person, place and time. CLINICAL LABS: Reviewed. Blood sugar glucose 50-92. MICRO: Alphahemolytic streptococcus 2 and blood cultures. Wound gram-negative bacilli now E. coli. ASSESSMENT: 1. Gangrenous cholecystitis 2. Bacteremia PLAN: 1. Continue full liquid diet 2. Antibiotic adjustment per infectious disease Objective - Vital Signs Vital signs: Vital Signs Temp 97.6 F 12/19/21 07:29 Pulse 62 12/19/21 07:29 Resp 17 12/19/21 07:29 BP 96/56 12/19/21 07:29 Pulse Ox 99 12/19/21 07:29 FiO2 3 12/16/21 08:31 Intake & Output 12/18/21 12/19/21 12/19/21 18:59 06:59 18:59 Output Total 200 560 Balance -200 -560 Output: Drainage 200 60 Right Abdomen 200 60 Urine 500 Other: Voiding Method Incontinent Diaper Diaper External Catheter Incontinent Incontinent External Catheter # Voids 1 # Emeses 1 - Labs CBC & Chem 7: 12/19/21 06:59 12/19/21 06:59 Labs: Abnormal Lab Results - Last 24 Hours (Table) 12/19/21 12/19/21 12/19/21 Range/Units 06:59 06:59 07:05 RBC 3.35 L (3.80-5.40) m/uL Hgb 9.5 L (11.4-16.0) gm/dL Hct 31.5 L (34.0-46.0) % MCHC 30.1 L (31.0-37.0) g/dL Sodium 136 L (137-145) mmol/L BUN 26 H (7-17) mg/dL Creatinine 1.30 H (0.52-1.04) mg/dL Glucose 46 L* (74-99) mg/dL POC Glucose (mg/dL) 50 L (70-110) mg/dL Calcium 7.7 L (8.4-10.2) mg/dL 12/19/21 12/19/21 Range/Units 07:55 08:20 RBC (3.80-5.40) m/uL Hgb (11.4-16.0) gm/dL Hct (34.0-46.0) % MCHC (31.0-37.0) g/dL Sodium (137-145) mmol/L BUN (7-17) mg/dL Creatinine (0.52-1.04) mg/dL Glucose (74-99) mg/dL POC Glucose (mg/dL) 53 L 58 L (70-110) mg/dL Calcium (8.4-10.2) mg/dL Microbiology - Last 24 Hours (Table) 12/15/21 15:30 Gram Stain - Final Other - Other Wound Culture - Final Escherichia coli Alpha Hemolytic Streptococcus 12/15/21 15:30 Anaerobic Culture - Preliminary Other - Other 12/17/21 19:44 Urine Culture - Final Urine,Voided 12/16/21 14:56 Blood Culture - Preliminary Blood No Growth after 48 hours 12/15/21 02:20 Blood Culture Gram Stain - Final Blood Blood Culture - Final Alpha Hemolytic Streptococcus 12/15/21 03:42 Blood Culture Gram Stain - Final Blood Blood Culture - Final Alpha Hemolytic Streptococcus
[2021-12-19] MEDS: metFORMIN 500 MG TAB PO SCH (16:08)
[2021-12-19 16:30] LABS: Glucose,Whole Blood 139 mg/dL (70-110)
[2021-12-19 19:44] LABS: Glucose,Whole Blood 202 mg/dL (70-110)
[2021-12-19] MEDS: LATANOPROST 0.005% OPHTH DROPS 2.5 ML BTL BOTH EYES SCH (21:20)
[2021-12-19] MEDS: LEVOTHYROXINE 137 MCG TAB PO SCH (22:45)
[2021-12-19] MEDS: MORPHINE SULFATE 4 MG/ML SYRINGE IVP PRN (22:55)
--- NOTE | 2021-12-19 23:09 | P.PN ---
Subjective Progress Note Date: 12/18/21 Principal diagnosis: Empyema of the gallbladder and bacteremia Patient is a 81-year-old female presenting to the hospital on 12/15/2021 for evaluation of chills weakness patient did have a fever and has been diagnosed with empyema of the gallbladder status post open cholecystectomy patient did have a alphahemolytic Streptococcus bacteremia and cephalexin allergy. On today's evaluation that is 12/18/2021 the patient is afebrile, the patient complaining of some right-sided abdominal pain and nausea but no vomiting no chest pain shortness of breath or cough no diarrhea Objective - Vital Signs Vital signs: Vital Signs Temp 97.3 F L 12/18/21 02:35 Pulse 55 L 12/18/21 07:58 Resp 18 12/18/21 07:58 BP 99/61 12/18/21 07:58 Pulse Ox 100 12/18/21 07:58 FiO2 3 12/16/21 08:31 Intake & Output 12/17/21 12/18/21 12/18/21 18:59 06:59 18:59 Intake Total 1700 Output Total 105 Balance 1595 Intake: Intake, IV Titration 1700 Amount Sodium Chloride 0.9% 1, 1200 000 ml @ 125 mls/hr IV . Q8H [facility] Rx#:[id number] Vancomycin 2,000 mg In 500 Sodium Chloride 0.9% 500 ml 500 ml @ 167 mls/hr IVPB Q24H [facility] Rx#: [id number] Output: Drainage 105 Right Abdomen 105 Other: Voiding Method Toilet Bedpan Incontinent External Catheter # Voids 1 # Bowel Movements 1 # Emeses 1 - Exam GENERAL DESCRIPTION: An elderly female lying in bed in no distress RESPIRATORY SYSTEM: Unlabored breathing , decreased breath sounds at bases HEART: S1 S2 regular rate and rhythm , ABDOMEN: Soft , no tenderness EXTREMITIES: No edema feet - Labs CBC & Chem 7: 12/19/21 06:59 12/19/21 06:59 Labs: Abnormal Lab Results - Last 24 Hours (Table) 12/17/21 12/18/21 12/18/21 Range/Units 19:44 03:05 03:05 RBC 3.37 L (3.80-5.40) m/uL Hgb 9.7 L (11.4-16.0) gm/dL Hct 31.0 L (34.0-46.0) % Anion Gap 7.80 L (10.00-18.00) mmol/L Est GFR (CKD-EPI)AfAm 49.4 L (60.0-200.0) Est GFR (CKD-EPI)NonAf 42.6 L (60.0-200.0) BUN/Creatinine Ratio 20.67 H (12.00-20.00) Ratio Glucose 50 L (70-110) mg/dL POC Glucose (mg/dL) (70-110) mg/dL Calcium 7.8 L (8.7-10.3) mg/dL Total Bilirubin 2.40 H (0.30-1.20) mg/dL AST 63 H (13-35) U/L Alkaline Phosphatase 185 H (41-126) U/L Total Protein 5.3 L (6.2-8.2) g/dL Albumin 2.4 L (3.8-4.9) g/dL Albumin/Globulin Ratio 0.83 L (1.60-3.17) g/dL Urine Appearance Cloudy H (Clear) Urine Protein Trace H (Negative) Urine Bilirubin 1+ H (Negative) Ur Leukocyte Esterase Moderate H (Negative) Urine WBC 23 H (0-5) /hpf Urine Bacteria Rare H (None) /hpf Urine Mucus Rare H (None) /hpf 12/18/21 12/18/21 12/18/21 Range/Units 06:55 08:23 08:46 RBC (3.80-5.40) m/uL Hgb (11.4-16.0) gm/dL Hct (34.0-46.0) % Anion Gap (10.00-18.00) mmol/L Est GFR (CKD-EPI)AfAm (60.0-200.0) Est GFR (CKD-EPI)NonAf (60.0-200.0) BUN/Creatinine Ratio (12.00-20.00) Ratio Glucose (70-110) mg/dL POC Glucose (mg/dL) 52 L 49 L 57 L (70-110) mg/dL Calcium (8.7-10.3) mg/dL Total Bilirubin (0.30-1.20) mg/dL AST (13-35) U/L Alkaline Phosphatase (41-126) U/L Total Protein (6.2-8.2) g/dL Albumin (3.8-4.9) g/dL Albumin/Globulin Ratio (1.60-3.17) g/dL Urine Appearance (Clear) Urine Protein (Negative) Urine Bilirubin (Negative) Ur Leukocyte Esterase (Negative) Urine WBC (0-5) /hpf Urine Bacteria (None) /hpf Urine Mucus (None) /hpf 12/18/21 Range/Units 09:09 RBC (3.80-5.40) m/uL Hgb (11.4-16.0) gm/dL Hct (34.0-46.0) % Anion Gap (10.00-18.00) mmol/L Est GFR (CKD-EPI)AfAm (60.0-200.0) Est GFR (CKD-EPI)NonAf (60.0-200.0) BUN/Creatinine Ratio (12.00-20.00) Ratio Glucose (70-110) mg/dL POC Glucose (mg/dL) 176 H (70-110) mg/dL Calcium (8.7-10.3) mg/dL Total Bilirubin (0.30-1.20) mg/dL AST (13-35) U/L Alkaline Phosphatase (41-126) U/L Total Protein (6.2-8.2) g/dL Albumin (3.8-4.9) g/dL Albumin/Globulin Ratio (1.60-3.17) g/dL Urine Appearance (Clear) Urine Protein (Negative) Urine Bilirubin (Negative) Ur Leukocyte Esterase (Negative) Urine WBC (0-5) /hpf Urine Bacteria (None) /hpf Urine Mucus (None) /hpf Microbiology - Last 24 Hours (Table) 12/15/21 02:20 Blood Culture Gram Stain - Final Blood Blood Culture - Final Alpha Hemolytic Streptococcus 12/15/21 03:42 Blood Culture Gram Stain - Final Blood Blood Culture - Final Alpha Hemolytic Streptococcus 12/17/21 19:44 Urine Culture - Preliminary Urine,Voided 12/16/21 14:56 Blood Culture - Preliminary Blood No Growth after 24 hours Assessment and Plan (1) Bacteremia Current Visit: Yes Status: Acute Code(s): R78.81 - BACTEREMIA SNOMED Code(s): 8826337 (2) Cholecystitis Current Visit: Yes Status: Acute Code(s): K81.9 - CHOLECYSTITIS, UNSPECIFIED SNOMED Code(s): 40748661 Plan: 1patient presented to hospital with sepsis in this patient with a fever elevated white count source is likely acute on chronic ascites with empyema of the gallbladder status post open cholecystectomy in this patient abdominal cultures currently growing gram-negative Monnette enteric pathogen. 2positive blood culture with alphahemolytic Streptococcus possible related to empyema of the gallbladder 3antibiotic allergies that would limit the number of antibiotics safe to use. 4patient to continue with Levaquin and Azactam for better gram-negative coverage while waiting for sensitivities to finalize Time with Patient: Less than 30
--- NOTE | 2021-12-19 23:11 | P.PN ---
Subjective Progress Note Date: 12/19/21 Principal diagnosis: Empyema of the gallbladder and bacteremia Patient is a 81-year-old female presenting to the hospital on 12/15/2021 for evaluation of chills weakness patient did have a fever and has been diagnosed with empyema of the gallbladder status post open cholecystectomy patient did have a alphahemolytic Streptococcus bacteremia and cephalexin allergy. On today's evaluation that is 12/19/2021 the patient remains to be afebrile, the patient breathing comfortably, the patient denies having any chest pain or shortness of cough no abdominal pain has improved no nausea no vomiting or diarrhea Objective - Vital Signs Vital signs: Vital Signs Temp 97.8 F 12/19/21 15:03 Pulse 64 12/19/21 15:03 Resp 18 12/19/21 15:03 BP 105/51 12/19/21 15:03 Pulse Ox 99 12/19/21 15:03 FiO2 3 12/16/21 08:31 Intake & Output 12/18/21 12/19/21 12/19/21 18:59 06:59 18:59 Output Total 200 560 Balance -200 -560 Output: Drainage 200 60 Right Abdomen 200 60 Urine 500 Other: Voiding Method Incontinent Diaper Diaper External Catheter Incontinent Incontinent External Catheter # Voids 1 # Emeses 1 - Exam GENERAL DESCRIPTION: An elderly female lying in bed in no distress RESPIRATORY SYSTEM: Unlabored breathing , decreased breath sounds at bases HEART: S1 S2 regular rate and rhythm , ABDOMEN: Soft , no tenderness EXTREMITIES: No edema feet - Labs CBC & Chem 7: 12/19/21 06:59 12/19/21 06:59 Labs: Abnormal Lab Results - Last 24 Hours (Table) 12/19/21 12/19/21 12/19/21 Range/Units 06:59 06:59 07:05 RBC 3.35 L (3.80-5.40) m/uL Hgb 9.5 L (11.4-16.0) gm/dL Hct 31.5 L (34.0-46.0) % MCHC 30.1 L (31.0-37.0) g/dL Sodium 136 L (137-145) mmol/L BUN 26 H (7-17) mg/dL Creatinine 1.30 H (0.52-1.04) mg/dL Glucose 46 L* (74-99) mg/dL POC Glucose (mg/dL) 50 L (70-110) mg/dL Calcium 7.7 L (8.4-10.2) mg/dL 12/19/21 12/19/21 Range/Units 07:55 08:20 RBC (3.80-5.40) m/uL Hgb (11.4-16.0) gm/dL Hct (34.0-46.0) % MCHC (31.0-37.0) g/dL Sodium (137-145) mmol/L BUN (7-17) mg/dL Creatinine (0.52-1.04) mg/dL Glucose (74-99) mg/dL POC Glucose (mg/dL) 53 L 58 L (70-110) mg/dL Calcium (8.4-10.2) mg/dL Microbiology - Last 24 Hours (Table) 12/15/21 15:30 Gram Stain - Final Other - Other Wound Culture - Final Escherichia coli Alpha Hemolytic Streptococcus 12/15/21 15:30 Anaerobic Culture - Preliminary Other - Other 12/17/21 19:44 Urine Culture - Final Urine,Voided 12/16/21 14:56 Blood Culture - Preliminary Blood No Growth after 48 hours 12/15/21 02:20 Blood Culture Gram Stain - Final Blood Blood Culture - Final Alpha Hemolytic Streptococcus 12/15/21 03:42 Blood Culture Gram Stain - Final Blood Blood Culture - Final Alpha Hemolytic Streptococcus Assessment and Plan (1) Bacteremia Current Visit: Yes Status: Acute Code(s): R78.81 - BACTEREMIA SNOMED Code(s): 5882252 (2) Cholecystitis Current Visit: Yes Status: Acute Code(s): K81.9 - CHOLECYSTITIS, UNSPECIFIED SNOMED Code(s): 25218615 Plan: 1patient presented to hospital with sepsis in this patient with a fever elevated white count source is likely acute on chronic ascites with empyema of the gallbladder status post open cholecystectomy in this patient abdominal cultures currently growing gram-negative Monnette enteric pathogen. 2positive blood culture with alphahemolytic Streptococcus possible related to empyema of the gallbladder 3antibiotic allergies that would limit the number of antibiotics safe to use. 4patient repeat blood culture had been negative so far patient seemed to have her clinical improvement 5-patient to continue with Azactam however the patient will be able to finish therapy with oral Cipro and close outpatient follow-up Time with Patient: Less than 30
[2021-12-20] MEDS: SODIUM CHLORIDE 0.9% 1,000 ML IV SCH ×3 (00:58→12:30)
--- NOTE | 2021-12-20 01:19 | CONS ---
CONSULTATION CHIEF COMPLAINT: Pauses. HISTORY OF PRESENT ILLNESS: Rosalva is an 81-year-old lady with history of persistent atrial fibrillation who is admitted to hospital with not feeling well and had acute cholecystitis and underwent surgery for the same. She is on telemetry and has been having pauses less than 3 seconds, for which Cardiology had been consulted. She has known persistent atrial fibrillation and is currently on multiple AV lo blockers. I reviewed her rhythm strip. She is in atrial fibrillation with episodes of slow ventricular rate. I am going to cut back on the dose of her metoprolol. She is also taking digoxin once every 48 hours. PAST MEDICAL HISTORY: Significant for atrial fibrillation, hypothyroidism, fzk-kytxqgi-bbwpzhqig diabetes, and renal insufficiency. MEDICATIONS AT HOME: Include: 1. Amiodarone 100 mg daily. 2. Eliquis 5 b.i.d. 3. Synthroid. 4. Pepcid. 5. Lotrimin. 6. MiraLAX. 7. Flomax. 8. K-Dur. 9. Oxybutynin. 10.Metformin. 11.Lopressor 100 b.i.d. 12.Gabapentin. ALLERGIES: Multiple drug allergies, they are charted and I reviewed them. FAMILY HISTORY: Negative for premature coronary artery disease. SOCIAL HISTORY: Negative for current smoking, EtOH abuse, or drug abuse. REVIEW OF SYSTEMS: review of systems has been performed. Pertinents are as documented. PHYSICAL EXAMINATION: GENERAL: Comfortable at rest. VITAL SIGNS: Stable. Heart rate is 60 beats per minute. NECK: There is no jugular venous distention. Carotid upstroke is normal. There is no bruit. CHEST: Reveals diminished air entry at the bases. HEART: Reveals first and second heart sounds, irregular rhythm and a systolic murmur at the apex. ABDOMEN: Soft. EXTREMITIES: Do not reveal any edema. Peripheral pulses are felt. LABORATORIES: Show a potassium of 4.4, creatinine is 1.3. Hemoglobin is 9.5, platelet count is 155. IMAGING: The patient had an echocardiogram at the beginning of the year that revealed normal LV systolic function with moderate pulmonary hypertension. ASSESSMENT: Permanent atrial fibrillation with episodes of slow ventricular rate. PLAN: I am going to decrease the dose of the metoprolol to 50 b.i.d. MMODL / IJN: [id number] /
--- NOTE | 2021-12-20 02:43 | P.PN ---
Subjective Progress Note Date: 12/19/21 Cholecystitis status post post cystectomy The patient is postop day #2 for infected cholecystitis. The patient is doing well however complaining of urinary retention. We will follow this closely. Increase mobilization as possible. Appreciate PT/OT. 12/18/2021 Patient is seen today post up for open cholecystectomy with general surgery following. Patient is continued on IV abx and awaiting cultures. Patient is on clear liquid diet and is tolerating. Blood sugars have been running low and recommend to monitor accuchecks achs and will add sliding scale. Hold long acting BID. Encouraged increased activity as tolerated. ID following. Afebrile and denies chest pain or worsening shortness of breath. 12/19/2021 Patient is seen today with surgery following closely. Continued on IV a ntibiotics. Tolerating clear liquid although having low blood sugars. Recommend achs and sliding scale only for now. Patient is afebrile and reports to having bowel movements and is passing gas. No reports of nausea or vomiting and denies chest pain or shortness of breath. Recommend am labs. Encouraged increased activity as tolerated. Encourage incentive spirometer. PHysical exam: GENERAL: Alert and oriented 3 ,SItting up in bed, obese HEENT: Normocephalic. Pupils reactive. Neck: supple, no lymphadenopathy noted CHEST EXAMINATION: diminished breath sounds bilaterally with no wheezing or r honchi noted CARDIAC: S1, S2 muffled ABDOMEN: Soft. mildly tender, mildly distended. Bowel sounds normal. No organomegaly. No guarding. Extremities: reveal no edema. No clubbing or cyanosis Neurological: Cranial nerves 2 through 12 grossly intact. No focal deficits noted Skin: Warm and dry, No rash. Assessment: Cholecystitis s/p open cholecystectomy History of atrial fibrillation Back pain Diabetes type 2, insulin dependent Generalized weakness Hyperlipidemia Hypertension GI and DVT prophylaxis Full code Plan: Continue on current medication regimen ,monitoring and symptomatic treatment. Continue to monitor blood sugars achs. Blood sugars have been low and recommend continuing with sliding scale and hold long acting bid for now Continue on clear liquid per surgery and advance when surgical increases the diet Resume anticoagulation when surgery clears Continue IV antibiotics with ID following, on aztreonam Prognosis guarded given multiple complex medical issues. Further recommendations to follow based on the clinical course of the patient. We will continue to follow with surgery during hospitalization, Thank you for this consultation The impression and plan of care has been dictated as a scribe by Kimberlee Lopez, nurse practitioner as directed. Dr. Vivek MD I have performed a history and examination and MDM of this patient, discussed the same with the dictator, and has been documented as a scribe. Based on total visit time, I have performed more than 50% of the visit. Any additional findings or plans will be noted. Objective - Vital Signs Vital signs: Vital Signs Temp 97.6 F 12/19/21 07:29 Pulse 62 12/19/21 07:29 Resp 17 12/19/21 07:29 BP 96/56 12/19/21 07:29 Pulse Ox 99 12/19/21 07:29 FiO2 3 12/16/21 08:31 Intake & Output 12/18/21 12/19/21 12/19/21 18:59 06:59 18:59 Output Total 200 Balance -200 Output: Drainage 200 Right Abdomen 200 Other: Voiding Method Incontinent Diaper External Catheter Incontinent # Voids 1 # Emeses 1 - Labs CBC & Chem 7: 12/19/21 06:59 12/19/21 06:59 Labs: Abnormal Lab Results - Last 24 Hours (Table) 12/18/21 12/18/21 12/19/21 Range/Units 03:05 09:09 06:59 RBC (3.80-5.40) m/uL Hgb (11.4-16.0) gm/dL Hct (34.0-46.0) % MCHC (31.0-37.0) g/dL Sodium 136 L (137-145) mmol/L Anion Gap 7.80 L (10.00-18.00) mmol/L BUN 26 H (7-17) mg/dL Creatinine 1.30 H (0.52-1.04) mg/dL Est GFR (CKD-EPI)AfAm 49.4 L (60.0-200.0) Est GFR (CKD-EPI)NonAf 42.6 L (60.0-200.0) BUN/Creatinine Ratio 20.67 H (12.00-20.00) Ratio Glucose 50 L 46 L* (70-110) mg/dL POC Glucose (mg/dL) 176 H (70-110) mg/dL Calcium 7.8 L 7.7 L (8.7-10.3) mg/dL Total Bilirubin 2.40 H (0.30-1.20) mg/dL AST 63 H (13-35) U/L Alkaline Phosphatase 185 H (41-126) U/L Total Protein 5.3 L (6.2-8.2) g/dL Albumin 2.4 L (3.8-4.9) g/dL Albumin/Globulin Ratio 0.83 L (1.60-3.17) g/dL 12/19/21 12/19/21 12/19/21 Range/Units 06:59 07:05 07:55 RBC 3.35 L (3.80-5.40) m/uL Hgb 9.5 L (11.4-16.0) gm/dL Hct 31.5 L (34.0-46.0) % MCHC 30.1 L (31.0-37.0) g/dL Sodium (137-145) mmol/L Anion Gap (10.00-18.00) mmol/L BUN (7-17) mg/dL Creatinine (0.52-1.04) mg/dL Est GFR (CKD-EPI)AfAm (60.0-200.0) Est GFR (CKD-EPI)NonAf (60.0-200.0) BUN/Creatinine Ratio (12.00-20.00) Ratio Glucose (70-110) mg/dL POC Glucose (mg/dL) 50 L 53 L (70-110) mg/dL Calcium (8.7-10.3) mg/dL Total Bilirubin (0.30-1.20) mg/dL AST (13-35) U/L Alkaline Phosphatase (41-126) U/L Total Protein (6.2-8.2) g/dL Albumin (3.8-4.9) g/dL Albumin/Globulin Ratio (1.60-3.17) g/dL 12/19/21 Range/Units 08:20 RBC (3.80-5.40) m/uL Hgb (11.4-16.0) gm/dL Hct (34.0-46.0) % MCHC (31.0-37.0) g/dL Sodium (137-145) mmol/L Anion Gap (10.00-18.00) mmol/L BUN (7-17) mg/dL Creatinine (0.52-1.04) mg/dL Est GFR (CKD-EPI)AfAm (60.0-200.0) Est GFR (CKD-EPI)NonAf (60.0-200.0) BUN/Creatinine Ratio (12.00-20.00) Ratio Glucose (70-110) mg/dL POC Glucose (mg/dL) 58 L (70-110) mg/dL Calcium (8.7-10.3) mg/dL Total Bilirubin (0.30-1.20) mg/dL AST (13-35) U/L Alkaline Phosphatase (41-126) U/L Total Protein (6.2-8.2) g/dL Albumin (3.8-4.9) g/dL Albumin/Globulin Ratio (1.60-3.17) g/dL Microbiology - Last 24 Hours (Table) 12/15/21 15:30 Gram Stain - Final Other - Other Wound Culture - Final Escherichia coli Alpha Hemolytic Streptococcus 12/15/21 15:30 Anaerobic Culture - Preliminary Other - Other 12/17/21 19:44 Urine Culture - Final Urine,Voided 12/16/21 14:56 Blood Culture - Preliminary Blood No Growth after 48 hours 12/15/21 02:20 Blood Culture Gram Stain - Final Blood Blood Culture - Final Alpha Hemolytic Streptococcus 12/15/21 03:42 Blood Culture Gram Stain - Final Blood Blood Culture - Final Alpha Hemolytic Streptococcus
[2021-12-20 06:34] LABS: Glucose,Whole Blood 144 mg/dL (70-110)
[2021-12-20] MEDS: INSULIN ASPART (NovoLOG) 100 UNIT/ML VIAL SQ SCH ×4 (06:41→22:43)
[2021-12-20 07:03] LABS: African American GFR (CKD) 49 (>60 ml/min/1.73 sqM); Anion Gap 7 mmol/L; Blood Urea Nitrogen 23 mg/dL (7-17); Calcium 7.9 mg/dL (8.4-10.2); Carbon Dioxide 27 mmol/L (22-30); Chloride 104 mmol/L (98-107); Glucose 160 mg/dL (74-99); Non-African American GFR(CKD) 43 (>60 ml/min/1.73 sqM); Potassium 5.2 mmol/L (3.5-5.1); Sodium 138 mmol/L (137-145)
[2021-12-20] MEDS: AZTREONAM 2 GM in SODIUM CHLORIDE 0.9% 100 ML IVPB SCH ×2 (07:45→16:50)
[2021-12-20] MEDS: PANTOPRAZOLE 40 MG/10 ML VIAL IVP SCH ×2 (07:47→21:51)
[2021-12-20] MEDS: HEPARIN SODIUM,PORCINE/PF 5,000 UNIT/0.5 ML SYRINGE SQ SCH ×2 (07:49→21:51)
[2021-12-20] MEDS: MULTIVITAMINS, THERA 1 EACH TAB PO SCH (07:50)
[2021-12-20] MEDS: metroNIDAZOLE 500 MG TAB PO SCH ×3 (07:51→21:50)
[2021-12-20] MEDS: CALCIUM CARB-VIT D 500 MG-5 MCG TAB PO SCH ×2 (07:51→16:52)
[2021-12-20] MEDS: HYDROcodone/APAP 7.5-325MG 1 EACH TAB PO SCH ×4 (07:51→22:00)
[2021-12-20] MEDS: DOCUSATE 100 MG CAP PO SCH ×2 (07:51→16:52)
[2021-12-20] MEDS: GABAPENTIN 400 MG CAP PO SCH ×2 (07:51→16:52)
[2021-12-20] MEDS: TAMSULOSIN 0.4 MG CAP.ER.24H PO SCH (07:52)
[2021-12-20] MEDS: METOPROLOL TARTRATE 50 MG TAB PO SCH ×2 (07:52→21:51)
[2021-12-20] MEDS: MAGNESIUM OXIDE 400 MG TAB PO SCH (07:52)
[2021-12-20] MEDS: DIGOXIN 125 MCG TAB PO SCH (07:52)
[2021-12-20] MEDS: FUROSEMIDE 40 MG TAB PO SCH ×2 (07:52→16:52)
[2021-12-20] MEDS: AMIODARONE 100 MG TAB PO SCH (07:52)
[2021-12-20] MEDS: polyethylene glycoL 3350 17 GM POWD.PACK PO SCH (07:53)
[2021-12-20] MEDS: predniSONE 5 MG TAB PO SCH (07:53)
[2021-12-20] MEDS: OXYBUTYNIN 10 MG TAB.ER.24 PO SCH (07:53)
--- NOTE | 2021-12-20 08:52 | P.PN ---
Subjective Progress Note Date: 12/20/21 Principal diagnosis: Acute cholecystitis This is an 81-year-old female who presented to the ER with complaints of fever. Acute cholecystitis was found in and an open cholecystectomy was performed by Dr. Cruz. Patient awake and alert sitting up in bed today vitals have been stable. She has no current complaints. Patient reports she is able to transfer to the chair safely. Objective - Vital Signs Vital signs: Vital Signs Temp 98.1 F 12/20/21 07:24 Pulse 69 12/20/21 07:24 Resp 16 12/20/21 07:24 BP 115/52 12/20/21 07:24 Pulse Ox 100 12/20/21 07:24 FiO2 3 12/16/21 08:31 Intake & Output 12/19/21 12/20/21 12/20/21 18:59 06:59 18:59 Intake Total 120 Output Total 590 1600 Balance -590 -1600 120 Intake: Oral 120 Output: Drainage 90 150 Right Abdomen 90 150 Urine 500 1450 Other: Voiding Method Diaper Diaper Incontinent Incontinent External Catheter External Catheter - Constitutional General appearance: Present: cooperative. Absent: no acute distress - EENT Eyes: Present: EOMI, PERRLA - Neck Neck: Present: normal ROM - Respiratory Respiratory: bilateral: CTA - Cardiovascular Rhythm: irregularly irregular - Gastrointestinal General gastrointestinal: Present: normal bowel sounds, soft - Integumentary Integumentary: Present: normal - Psychiatric Psychiatric: Present: A&O x's 3, appropriate affect, intact judgment & insight - Labs CBC & Chem 7: 12/19/21 06:59 12/20/21 05:56 Labs: Abnormal Lab Results - Last 24 Hours (Table) 12/19/21 12/19/21 12/20/21 Range/Units 16:29 19:43 05:56 Potassium 5.2 H (3.5-5.1) mmol/L BUN 23 H (7-17) mg/dL Creatinine 1.21 H (0.52-1.04) mg/dL Glucose 160 H (74-99) mg/dL POC Glucose (mg/dL) 139 H 202 H (70-110) mg/dL Calcium 7.9 L (8.4-10.2) mg/dL 12/20/21 Range/Units 06:32 Potassium (3.5-5.1) mmol/L BUN (7-17) mg/dL Creatinine (0.52-1.04) mg/dL Glucose (74-99) mg/dL POC Glucose (mg/dL) 144 H (70-110) mg/dL Calcium (8.4-10.2) mg/dL Microbiology - Last 24 Hours (Table) 12/15/21 15:30 Anaerobic Culture - Final Other - Other 12/16/21 14:56 Blood Culture - Preliminary Blood No Growth after 72 hours Assessment and Plan (1) Cholecystitis Current Visit: Yes Status: Acute Code(s): K81.9 - CHOLECYSTITIS, UNSPECIFIED SNOMED Code(s): 38348967 (2) Chills Current Visit: Yes Status: Acute Code(s): R68.83 - CHILLS (WITHOUT FEVER) SNOMED Code(s): 58514814 (3) History of atrial fibrillation Current Visit: Yes Status: Acute Code(s): Z86.79 - PERSONAL HISTORY OF OTHER DISEASES OF THE CIRCULATORY SYSTEM SNOMED Code(s): 188398634 (4) Back pain Current Visit: No Status: Acute Code(s): M54.9 - DORSALGIA, UNSPECIFIED SNOMED Code(s): 148828110 (5) Diabetes Current Visit: No Status: Acute Code(s): E11.9 - TYPE 2 DIABETES MELLITUS WITHOUT COMPLICATIONS SNOMED Code(s): 21406289 (6) Hyperlipidemia Current Visit: No Status: Acute Code(s): E78.5 - HYPERLIPIDEMIA, UNSPECIFIED SNOMED Code(s): 23388082 (7) Hypertension Current Visit: No Status: Acute Code(s): I10 - ESSENTIAL (PRIMARY) HYPERTENSION SNOMED Code(s): 48747123 Plan: Continue to follow closely with surgeon. May need placement for rehab Dr. Butts recommending oral Cipro at discharge. Patient seen and evaluated by nurse practitioner. Physician in agreement with plan.
[2021-12-20 09:16] LABS: Basophils # (A) 0.03 X 10*3/uL (0.00-0.10); Basophils % (A) 0.4 %; Eosinophils # (A) 0.17 X 10*3/uL (0.04-0.35); Eosinophils % (A) 2.5 %; HCT 30.1 % (37.2-46.3); HGB 9.1 g/dL (12.0-15.0); Lymphocytes # (A) 1.56 X 10*3/uL (0.90-5.00); Lymphocytes % (A) 22.7 %; MCH 27.6 pg (27.0-32.0); MCHC 30.2 g/dL (32.0-37.0); MCV 91.2 fL (80.0-97.0); Mean Platelet Volume 11.2 fL (9.5-12.2); Monocytes # (A) 0.54 X 10*3/uL (0.20-1.00); Monocytes % (A) 7.9 %; NRBC Per 100 WBC 0 /100 WBCS (0.0-0.0); Neutrophils # (A) 4.49 X 10*3/uL (1.80-7.70); Neutrophils % (A) 65.5 %; Platelet Count 156 X 10*3/uL (140-440); RDW 15.9 % (11.5-14.5); WBC 6.86 X 10*3/uL (4.50-10.00)
--- NOTE | 2021-12-20 10:15 | P.PN ---
Subjective Progress Note Date: 12/20/21 HISTORY OF PRESENT ILLNESS: Patient examined this morning at the bedside. Patient denies chest pain or pressure. She denies shortness of breath. Patient's metoprolol was decreased to 50 mg twice a day yesterday. Patient remains in atrial fibrillation with a heart rate in the 60s. PHYSICAL EXAM: VITAL SIGNS: Reviewed. GENERAL: Well-developed in no acute distress. NECK: Supple. No JVD or thyromegaly LUNGS: Respirations even and unlabored. Lungs essentially clear to auscultation bilaterally. HEART: Irregular rate and rhythm. S1 and S2 heard. +systolic murmur. EXTREMITIES: Normal range of motion. No clubbing or cyanosis. Peripheral pulses intact. No lower extremity edema ASSESSMENT: Permanent atrial fibrillation with episodes of slow ventricular rate Gangrenous cholecystitis Bacteremia PLAN: Continue current dose of metoprolol Continue current cardiac medications Patient is currently stable from a cardiac standpoint We will sign off. Please reconsult if needed. Nurse practitioner note has been reviewed by physician. Signing provider agrees with the documented findings, assessment, and plan of care. Objective - Vital Signs Vital signs: Vital Signs Temp 98.1 F 12/20/21 07:24 Pulse 69 12/20/21 07:24 Resp 16 12/20/21 07:24 BP 115/52 12/20/21 07:24 Pulse Ox 100 12/20/21 07:24 FiO2 3 12/16/21 08:31 Intake & Output 12/19/21 12/20/21 12/20/21 18:59 06:59 18:59 Intake Total 120 Output Total 590 1600 Balance -590 -1600 120 Intake: Oral 120 Output: Drainage 90 150 Right Abdomen 90 150 Urine 500 1450 Other: Voiding Method Diaper Diaper Diaper Incontinent Incontinent Incontinent External Catheter External Catheter External Catheter - Labs CBC & Chem 7: 12/20/21 05:56 12/20/21 05:56 Labs: Abnormal Lab Results - Last 24 Hours (Table) 12/19/21 12/19/21 12/20/21 Range/Units 16:29 19:43 05:56 RBC (4.10-5.20) X 10*6/uL Hgb (12.0-15.0) g/dL Hct (37.2-46.3) % MCHC (32.0-37.0) g/dL RDW (11.5-14.5) % Immature Gran # (0.00-0.04) X 10*3/uL Potassium 5.2 H (3.5-5.1) mmol/L BUN 23 H (7-17) mg/dL Creatinine 1.21 H (0.52-1.04) mg/dL Glucose 160 H (74-99) mg/dL POC Glucose (mg/dL) 139 H 202 H (70-110) mg/dL Calcium 7.9 L (8.4-10.2) mg/dL 12/20/21 12/20/21 Range/Units 05:56 06:32 RBC 3.30 L (4.10-5.20) X 10*6/uL Hgb 9.1 L (12.0-15.0) g/dL Hct 30.1 L (37.2-46.3) % MCHC 30.2 L (32.0-37.0) g/dL RDW 15.9 H (11.5-14.5) % Immature Gran # 0.07 H (0.00-0.04) X 10*3/uL Potassium (3.5-5.1) mmol/L BUN (7-17) mg/dL Creatinine (0.52-1.04) mg/dL Glucose (74-99) mg/dL POC Glucose (mg/dL) 144 H (70-110) mg/dL Calcium (8.4-10.2) mg/dL Microbiology - Last 24 Hours (Table) 12/15/21 15:30 Anaerobic Culture - Final Other - Other 12/16/21 14:56 Blood Culture - Preliminary Blood No Growth after 72 hours
[2021-12-20 11:05] LABS: Glucose,Whole Blood 150 mg/dL (70-110)
--- NOTE | 2021-12-20 12:47 | P.DS ---
Providers Date of admission: 12/15/21 05:25 Expected date of discharge: 12/20/21 Attending physician: Darius Cruz Consults: 12/15/21 05:25 Consult Physician Routine Consulting Provider: Nicholas Hart Consult Reason/Comments: medical management Do you want consulting provider notified?: Already Contacted 12/17/21 11:46 Consult Physician Routine Consulting Provider: Tg Butts Consult Reason/Comments: positive blood culture Do you want consulting provider notified?: Yes Primary care physician: Nicholas Hart Hospital Course: Discharge diagnosis 1. Acute on chronic cholecystitis, empyema gallbladder, cholelithiasis status post open cholecystectomy 2. Bacteremia Hospital course This is a 81-year-old female who presented to the hospital with complaints of fever and chills. She did have noted elevated liver enzymes and white count a computed tomography scan abdomen and pelvis was completed which demonstrated fat stranding in the right upper quadrant around the gallbladder. There is gallbladder wall thickening. This is consistent with acute on chronic cholecystitis. Gallbladder wall thickening has significantly increased compared to old exam. No dilated ducts. There is small irregular 3 cm fluid collection posterior to the gallbladder fundus. Gallbladder rupture as possible. Aggressive gallbladder tumor is also possible. Patient status post open c holecystectomy for acute on chronic cholecystitis and empyema of the gallbladder. She also had positive blood cultures. She'll be discharged with antibiotics per ID service recommendations. Patient's abdominal pain is improved. She's tolerating diet. Afebrile. She has been up and ambulating. She's worked with physical per therapy they're recommending discharge to [facility] for rehab. She is stable for discharge. Please refer to chart for any further details. Physician Material Handler 2Nd Shift note has been reviewed by physician. Signing provider agrees with the documented findings, assessment, and plan of care. Patient Condition at Discharge: Stable Plan - Discharge Summary Discharge Rx Participant: No New Discharge Prescriptions: New Metoprolol Tartrate [Lopressor] 50 mg PO BID #60 tab Discontinued Metoprolol Tartrate [Lopressor] 100 mg PO BID@0900,1700 No Action Latanoprost [Xalatan 0.005%] 1 drop BOTH EYES HS Insulin Lispro [humaLOG Kwikpen] See Protocol SQ AC-TID Multivitamins, Thera [Multivitamin (formulary)] 1 tab PO DAILY Dicyclomine [Bentyl] 10 mg PO Q8H PRN PRN Reason: CRAMPS/STOMACH PAIN Insulin Glargine,Hum.rec.anlog [Lantus Solostar Pen] 30 units SQ Q12H Magnesium Oxide 400 mg PO DAILY Omeprazole 20 mg PO DAILY Tamsulosin [Flomax] 0.4 mg PO DAILY Levothyroxine Sodium 150 mcg PO MOTUWE@2100 Docusate [Colace] 100 mg PO BID@0900,1700 Calcium Citrate/Vitamin D3 [Citracal + D Maximum Caplet] 1 tab PO BID@0900,1700 Gabapentin 800 mg PO BID@0900,1700 #6 tab predniSONE 5 mg PO DAILY Amiodarone HCl [Cordarone] 100 mg PO DAILY Apixaban [Eliquis] 5 mg PO BID@0900,1700 Famotidine [Pepcid] 10 mg PO Q12H PRN PRN Reason: Heartburn methocarbamoL [Methocarbamol] 1,000 mg PO Q6H PRN PRN Reason: Pain Oxybutynin Chloride [Oxybutynin Chloride ER] 10 mg PO DAILY polyethylene glycoL 3350 [Miralax] 17 gm PO DAILY packet Potassium Chloride ER [K-Dur 10] 10 meq PO DAILY@1200 Nitroglycerin Sl Tabs [Nitrostat] 0.4 mg SL Q5M PRN PRN Reason: Chest Pain metFORMIN HCL ER [Glucophage XR] 500 mg PO DAILY@1700 Levothyroxine Sodium [Synthroid] 137 mcg PO SUTHFRSA@2100 Furosemide [Lasix] 40 mg PO BID@0900,1700 Digoxin [Lanoxin] 125 mcg PO Q48H Clotrimazole [Lotrimin AF] 1 applic TOPICAL DAILY PRN PRN Reason: fungas HYDROcodone/APAP 7.5-325MG [Leeds 7.5-325] 1 tab PO QID #12 tab Discharge Medication List Latanoprost [Xalatan 0.005%] 1 drop BOTH EYES HS 08/11/17 [History] Insulin Lispro [humaLOG Kwikpen] See Protocol SQ AC-TID 09/25/18 [History] Multivitamins, Thera [Multivitamin (formulary)] 1 tab PO DAILY 11/19/18 [History] predniSONE 5 mg PO DAILY 07/23/21 [History] Amiodarone HCl [Cordarone] 100 mg PO DAILY 08/30/21 [History] Apixaban [Eliquis] 5 mg PO BID@0900,1700 08/30/21 [History] Dicyclomine [Bentyl] 10 mg PO Q8H PRN 08/30/21 [History] Famotidine [Pepcid] 10 mg PO Q12H PRN 08/30/21 [History] Insulin Glargine,Hum.rec.anlog [Lantus Solostar Pen] 30 units SQ Q12H 08/30/21 [History] Magnesium Oxide 400 mg PO DAILY 08/30/21 [History] Omeprazole 20 mg PO DAILY 08/30/21 [History] Oxybutynin Chloride [Oxybutynin Chloride ER] 10 mg PO DAILY 08/30/21 [History] Tamsulosin [Flomax] 0.4 mg PO DAILY 08/30/21 [History] methocarbamoL [Methocarbamol] 1,000 mg PO Q6H PRN 08/30/21 [History] polyethylene glycoL 3350 [Miralax] 17 gm PO DAILY packet 09/06/21 [Rx] Calcium Citrate/Vitamin D3 [Citracal + D Maximum Caplet] 1 tab PO BID@0900,1700 11/16/21 [History] Clotrimazole [Lotrimin AF] 1 applic TOPICAL DAILY PRN 11/16/21 [History] Digoxin [Lanoxin] 125 mcg PO Q48H 11/16/21 [History] Docusate [Colace] 100 mg PO BID@0900,17011/16/21 [History] Furosemide [Lasix] 40 mg PO BID@0900,1700 11/16/21 [History] Levothyroxine Sodium 150 mcg PO MOTUWE@209911/16/21 [History] Levothyroxine Sodium [Synthroid] 137 mcg PO SUTHFRSA@209911/16/21 [History] Nitroglycerin Sl Tabs [Nitrostat] 0.4 mg SL Q5M PRN 11/16/21 [History] Potassium Chloride ER [K-Dur 10] 10 meq PO DAILY@1200 11/16/21 [History] metFORMIN HCL ER [Glucophage XR] 500 mg PO DAILY@169911/16/21 [History] Gabapentin 800 mg PO BID@0900,1700 #6 tab 11/19/21 [Rx] HYDROcodone/APAP 7.5-325MG [Leeds 7.5-325] 1 tab PO QID #12 tab 11/19/21 [Rx] Metoprolol Tartrate [Lopressor] 50 mg PO BID #60 tab 12/20/21 [Rx] Follow up Appointment(s)/Referral(s): Jamshid George MD [STAFF PHYSICIAN] - 2 Weeks Nicholas Hart MD [Primary Care Provider] - 1-2 days Darius Cruz MD [STAFF PHYSICIAN] - 1 Week Patient Instructions/Handouts: Fever in Adults (ED) Activity/Diet/Wound Care/Special Instructions: No driving while taking Leeds No lifting over 10 pounds Shower daily. No soaking or tub baths for 2 weeks Very light activity until you are reevaluated at your follow up appointment with your surgeon Keep a log of SYL drain output and bring with you to your follow-up appointment Milk/strip drains 2-3 times a day Discharge Disposition: TRANSFER TO SNF/ECF
[2021-12-20 14:16] LABS: ALT 32 U/L (4-34); AST 47 U/L (14-36); Albumin 2.4 g/dL (3.5-5.0); Albumin/Globulin Ratio 0.8; Alkaline Phosphatase 227 U/L (38-126); Total Bilirubin 1.1 mg/dL (0.2-1.3); Total Protein 5.4 g/dL (6.3-8.2)
[2021-12-20 16:37] LABS: Glucose,Whole Blood 272 mg/dL (70-110)
[2021-12-20] MEDS: metFORMIN 500 MG TAB PO SCH (16:52)
[2021-12-20 20:33] LABS: Glucose,Whole Blood 204 mg/dL (70-110)
[2021-12-20] MEDS: LATANOPROST 0.005% OPHTH DROPS 2.5 ML BTL BOTH EYES SCH (21:50)
[2021-12-20] MEDS: LEVOTHYROXINE 75 MCG TAB PO SCH (21:51)
[2021-12-20 22:33] LABS: Glucose,Whole Blood 207 mg/dL (70-110)
[2021-12-21] MEDS: SODIUM CHLORIDE 0.9% 1,000 ML IV SCH ×3 (03:52→17:15)
[2021-12-21] MEDS: ONDANSETRON 4 MG/2 ML VIAL IVP PRN (03:52)
[2021-12-21] MEDS: AZTREONAM 2 GM in SODIUM CHLORIDE 0.9% 100 ML IVPB SCH ×3 (04:31→17:32)
[2021-12-21 06:52] LABS: Glucose,Whole Blood 170 mg/dL (70-110)
[2021-12-21] MEDS: metroNIDAZOLE 500 MG TAB PO SCH ×4 (08:57→22:18)
[2021-12-21] MEDS: HEPARIN SODIUM,PORCINE/PF 5,000 UNIT/0.5 ML SYRINGE SQ SCH ×2 (08:57→22:31)
[2021-12-21] MEDS: GABAPENTIN 400 MG CAP PO SCH ×3 (08:58→17:34)
[2021-12-21] MEDS: TAMSULOSIN 0.4 MG CAP.ER.24H PO SCH (08:58)
[2021-12-21] MEDS: DOCUSATE 100 MG CAP PO SCH ×3 (08:58→17:34)
[2021-12-21] MEDS: CALCIUM CARB-VIT D 500 MG-5 MCG TAB PO SCH ×3 (08:58→17:34)
[2021-12-21] MEDS: PANTOPRAZOLE 40 MG/10 ML VIAL IVP SCH ×2 (08:58→22:16)
[2021-12-21] MEDS: MULTIVITAMINS, THERA 1 EACH TAB PO SCH ×2 (08:59→09:51)
[2021-12-21] MEDS: AMIODARONE 100 MG TAB PO SCH ×2 (08:59→09:51)
[2021-12-21] MEDS: predniSONE 5 MG TAB PO SCH (08:59)
[2021-12-21] MEDS: OXYBUTYNIN 10 MG TAB.ER.24 PO SCH (08:59)
[2021-12-21] MEDS: FUROSEMIDE 40 MG TAB PO SCH ×3 (08:59→17:34)
[2021-12-21] MEDS: polyethylene glycoL 3350 17 GM POWD.PACK PO SCH (08:59)
[2021-12-21] MEDS: MORPHINE SULFATE 4 MG/ML SYRINGE IVP PRN (09:43)
[2021-12-21] MEDS: INSULIN ASPART (NovoLOG) 100 UNIT/ML VIAL SQ SCH ×4 (09:44→22:31)
[2021-12-21] MEDS: METOPROLOL TARTRATE 50 MG TAB PO SCH ×2 (09:48→22:18)
[2021-12-21] MEDS: HYDROcodone/APAP 7.5-325MG 1 EACH TAB PO SCH ×4 (09:48→22:17)
[2021-12-21] MEDS: MAGNESIUM OXIDE 400 MG TAB PO SCH (09:48)
[2021-12-21] MEDS ORDERED: SODIUM CHLORIDE 0.9% 500 ML 500 ML IV ONE (11:12)
[2021-12-21 11:22] LABS: Glucose,Whole Blood 151 mg/dL (70-110)
[2021-12-21] MEDS ORDERED: LACTULOSE 20 GM/30 ML CUP PO ONE (11:30)
[2021-12-21 11:38] LABS: African American GFR (CKD) 69.8 (60.0-200.0); Albumin 2.3 g/dL (3.8-4.9); Albumin/Globulin Ratio 0.76 (1.60-3.17); Anion Gap 5.8 mmol/L (10.00-18.00); BUN/Creat Ratio 19.07 Ratio (12.00-20.00); Blood Urea Nitrogen 17.2 mg/dL (9.0-27.0); Carbon Dioxide 23.3 mmol/L (20.0-27.5); Non-African American GFR(CKD) 60.2 (60.0-200.0); Potassium 3.9 mmol/L (3.5-5.5); Total Bilirubin 0.8 mg/dL (0.30-1.20); Total Protein 5.4 g/dL (6.2-8.2)
[2021-12-21 11:54] LABS: Basophils % (A) 0 %; Eosinophils # (A) 0.2 k/uL (0-0.7); Eosinophils % (A) 2 %; HCT 32.5 % (34.0-46.0); HGB 9.9 gm/dL (11.4-16.0); Hypochromasia Marked; Lymphocytes # (A) 1.2 k/uL (1.0-4.8); Lymphocytes % (A) 14 %; MCH 28.5 pg (25.0-35.0); MCHC 30.6 g/dL (31.0-37.0); Mean Platelet Volume 8.6; Monocytes # (A) 0.6 k/uL (0-1.0); Monocytes % (A) 7 %; Neutrophils # (A) 6.1 k/uL (1.3-7.7); Neutrophils % (A) 75 %; Platelet Count 216 k/uL (150-450); RBC 3.49 m/uL (3.80-5.40); RDW 15.5 % (11.5-15.5); WBC 8.1 k/uL (3.8-10.6)
--- NOTE | 2021-12-21 14:38 | P.PN ---
Subjective Progress Note Date: 12/21/21 CHIEF COMPLAINT: Fever and chills HISTORY OF PRESENT ILLNESS: Patient is postop day #6 status post diagnostic laparoscopy with open cholecystectomy for acute on chronic cholecystitis, empyema gallbladder and cholelithiasis. Patient had vomiting last night and again this morning. She does report having flatus. It's been a few days since her last bowel movement. Patient has any increase in abdominal pain. SYL drain with a 20 mL serosanguineous output. Patient's urine appears dark. Afebrile. WBC is 8.1 hemoglobin is 9.9 platelets 216 sodium is 135 potassium 3.9 creatinine is 0.9 total bilirubin 0.80 AST is down to 26 ALT 23 alk phos 219 Patient seen and examined with Dr. sy PHYSICAL EXAM: VITAL SIGNS: Reviewed. GENERAL: Well-developed in no acute distress. HEENT: No sclera icterus. Extraocular movements grossly intact. Moist buccal mucosa. Head is atraumatic, normocephalic. ABDOMEN: Soft. Nondistended. Incisional dressing clean dry and intact. SYL drain serosanguineous output Neuro: Alert and oriented. Cranial nerves II through XII grossly intact. ASSESSMENT: 1. Acute on chronic cholecystitis, empyema gallbladder, cholelithiasis status post open cholecystectomy 2. Vomiting 3. Bacteremia PLAN: -Downgrade diet to clear liquids -Give dose of lactulose for constipation -We'll give a small normal saline 500m mL fluid bolus -No plans for discharge today due to vomiting -Continue antibiotics -Okay to resume Eliquis -Encouraged patient to increase activity level -Encouraged patient to use incentive spirometer -Continue to work with PT OT -Patient will be discharged to [facility] hopefully tomorrow. She does have insurance authorization. -GI prophylaxis Protonix and DVT prophylaxis subcu heparin Physician Assembly Cleaner note has been reviewed by physician. Signing provider agrees with the documented findings, assessment, and plan of care. Objective - Vital Signs Vital signs: Vital Signs Temp 97.3 F L 12/21/21 14:10 Pulse 97 12/21/21 14:10 Resp 16 12/21/21 14:10 BP 113/53 12/21/21 14:10 Pulse Ox 92 L 12/21/21 14:10 FiO2 3 12/16/21 08:31 Intake & Output 12/20/21 12/21/2122 18:59 06:59 18:59 Intake Total 320 Output Total 1670 700 Balance -1350 -700 Intake: Intake, IV Titration 200 Amount Aztreonam 2 gm In Sodium 200 Chloride 0.9% 100 ml @ 33 .3 mls/hr IVPB Q8H [facility] Rx #:[id number] Oral 120 Output: Drainage 70 Right Abdomen 70 Urine 1600 700 Other: Voiding Method Diaper Diaper External Catheter Incontinent Incontinent External Catheter External Catheter # Voids 600 - Labs CBC & Chem 7: 12/21/21 07:27 12/21/21 07:27 Labs: Abnormal Lab Results - Last 24 Hours (Table) 12/20/21 12/20/21 12/20/21 Range/Units 05:56 16:35 20:31 RBC (3.80-5.40) m/uL Hgb (11.4-16.0) gm/dL Hct (34.0-46.0) % MCHC (31.0-37.0) g/dL Anion Gap (10.00-18.00) mmol/L Glucose (70-110) mg/dL POC Glucose (mg/dL) 272 H 204 H (70-110) mg/dL Calcium (8.7-10.3) mg/dL Alkaline Phosphatase (41-126) U/L Total Protein (6.2-8.2) g/dL Albumin (3.8-4.9) g/dL Albumin/Globulin Ratio (1.60-3.17) g/dL TSH 19.000 H (0.350-5.500) uIU/mL 12/20/21 12/21/21 12/21/21 Range/Units 22:32 06:45 07:27 RBC (3.80-5.40) m/uL Hgb (11.4-16.0) gm/dL Hct (34.0-46.0) % MCHC (31.0-37.0) g/dL Anion Gap 5.80 L (10.00-18.00) mmol/L Glucose 164 H (70-110) mg/dL POC Glucose (mg/dL) 207 H 170 H (70-110) mg/dL Calcium 8.0 L (8.7-10.3) mg/dL Alkaline Phosphatase 219 H (41-126) U/L Total Protein 5.4 L (6.2-8.2) g/dL Albumin 2.3 L (3.8-4.9) g/dL Albumin/Globulin Ratio 0.76 L (1.60-3.17) g/dL TSH (0.350-5.500) uIU/mL 12/21/21 12/21/21 Range/Units 07:27 11:18 RBC 3.49 L (3.80-5.40) m/uL Hgb 9.9 L (11.4-16.0) gm/dL Hct 32.5 L (34.0-46.0) % MCHC 30.6 L (31.0-37.0) g/dL Anion Gap (10.00-18.00) mmol/L Glucose (70-110) mg/dL POC Glucose (mg/dL) 151 H (70-110) mg/dL Calcium (8.7-10.3) mg/dL Alkaline Phosphatase (41-126) U/L Total Protein (6.2-8.2) g/dL Albumin (3.8-4.9) g/dL Albumin/Globulin Ratio (1.60-3.17) g/dL TSH (0.350-5.500) uIU/mL Microbiology - Last 24 Hours (Table) 12/16/21 14:56 Blood Culture - Preliminary Blood No Growth after 96 hours
[2021-12-21 16:18] LABS: Glucose,Whole Blood 188 mg/dL (70-110)
[2021-12-21] MEDS: metFORMIN 500 MG TAB PO SCH (17:34)
[2021-12-21] MEDS: LEVOTHYROXINE 75 MCG TAB PO SCH (22:17)
[2021-12-21] MEDS: LATANOPROST 0.005% OPHTH DROPS 2.5 ML BTL BOTH EYES SCH (22:18)
[2021-12-21 22:27] LABS: Glucose,Whole Blood 160 mg/dL (70-110)
--- NOTE | 2021-12-22 00:11 | P.PN ---
Subjective Progress Note Date: 12/20/21 Principal diagnosis: Empyema of the gallbladder and bacteremia Patient is a 81-year-old female presenting to the hospital on 12/15/2021 for evaluation of chills weakness patient did have a fever and has been diagnosed with empyema of the gallbladder status post open cholecystectomy patient did have a alphahemolytic Streptococcus bacteremia and cephalexin allergy. On today's evaluation that is 12/20/2021 the patient continues to be afebrile, the patient breathing comfortably, the patient denies having any chest pain or shortness of cough no abdominal pain has decreased in intensity, the patient denies nausea no vomiting or diarrhea Objective - Vital Signs Vital signs: Vital Signs Temp 98.1 F 12/20/21 07:24 Pulse 69 12/20/21 07:24 Resp 16 12/20/21 07:24 BP 115/52 12/20/21 07:24 Pulse Ox 100 12/20/21 07:24 FiO2 3 12/16/21 08:31 Intake & Output 12/19/21 12/20/21 12/20/21 18:59 06:59 18:59 Intake Total 120 Output Total 590 1600 Balance -590 -1600 120 Intake: Oral 120 Output: Drainage 90 150 Right Abdomen 90 150 Urine 500 1450 Other: Voiding Method Diaper Diaper Diaper Incontinent Incontinent Incontinent External Catheter External Catheter External Catheter - Exam GENERAL DESCRIPTION: An elderly female lying in bed in no distress RESPIRATORY SYSTEM: Unlabored breathing , decreased breath sounds at bases HEART: S1 S2 regular rate and rhythm , ABDOMEN: Soft , no tenderness EXTREMITIES: No edema feet - Labs CBC & Chem 7: 12/21/21 07:27 12/21/21 07:27 Labs: Abnormal Lab Results - Last 24 Hours (Table) 12/19/21 12/19/21 12/20/21 Range/Units 16:29 19:43 05:56 RBC (4.10-5.20) X 10*6/uL Hgb (12.0-15.0) g/dL Hct (37.2-46.3) % MCHC (32.0-37.0) g/dL RDW (11.5-14.5) % Immature Gran # (0.00-0.04) X 10*3/uL Potassium 5.2 H (3.5-5.1) mmol/L BUN 23 H (7-17) mg/dL Creatinine 1.21 H (0.52-1.04) mg/dL Glucose 160 H (74-99) mg/dL POC Glucose (mg/dL) 139 H 202 H (70-110) mg/dL Calcium 7.9 L (8.4-10.2) mg/dL 12/20/21 12/20/21 12/20/21 Range/Units 05:56 06:32 11:03 RBC 3.30 L (4.10-5.20) X 10*6/uL Hgb 9.1 L (12.0-15.0) g/dL Hct 30.1 L (37.2-46.3) % MCHC 30.2 L (32.0-37.0) g/dL RDW 15.9 H (11.5-14.5) % Immature Gran # 0.07 H (0.00-0.04) X 10*3/uL Potassium (3.5-5.1) mmol/L BUN (7-17) mg/dL Creatinine (0.52-1.04) mg/dL Glucose (74-99) mg/dL POC Glucose (mg/dL) 144 H 150 H (70-110) mg/dL Calcium (8.4-10.2) mg/dL Microbiology - Last 24 Hours (Table) 12/15/21 15:30 Anaerobic Culture - Final Other - Other 12/16/21 14:56 Blood Culture - Preliminary Blood No Growth after 72 hours Assessment and Plan (1) Bacteremia Current Visit: Yes Status: Acute Code(s): R78.81 - BACTEREMIA SNOMED Code(s): 4478068 (2) Cholecystitis Current Visit: Yes Status: Acute Code(s): K81.9 - CHOLECYSTITIS, UNSPECIFIED SNOMED Code(s): 46394948 Plan: 1patient presented to hospital with sepsis in this patient with a fever elevated white count source is likely acute on chronic ascites with empyema of the gallbladder status post open cholecystectomy in this patient abdominal cultures currently growing gram-negative Monnette enteric pathogen. 2positive blood culture with alphahemolytic Streptococcus possible related to empyema of the gallbladder 3antibiotic allergies that would limit the number of antibiotics safe to use. 4patient repeat blood culture had been negative so far patient seemed to have her clinical improvement 5-patient to continue with Azactam , patient is on amiodarone cannot use oral Cipro she has tolerated penicillin and plan to finish therapy with oral Augmentin discussed with the MANAGER CONTRACT for surgical team Time with Patient: Less than 30
--- NOTE | 2021-12-22 00:13 | P.PN ---
Subjective Progress Note Date: 12/21/21 Principal diagnosis: Empyema of the gallbladder and bacteremia Patient is a 81-year-old female presenting to the hospital on 12/15/2021 for evaluation of chills weakness patient did have a fever and has been diagnosed with empyema of the gallbladder status post open cholecystectomy patient did have a alphahemolytic Streptococcus bacteremia and cephalexin allergy. On today's evaluation that is 12/21/2021 the patient remains to be afebrile, the patient breathing comfortably, the patient denies having any chest pain or shortness of cough no abdominal pain has decreased in intensity, the patient did have an episode of vomiting this morning and apparently the patient didn't have any bowel movement, the patient discharged has been put on hold Objective - Vital Signs Vital signs: Vital Signs Temp 98.2 F 12/21/21 00:00 Pulse 86 12/21/21 00:00 Resp 20 12/21/21 00:00 BP 148/67 12/21/21 00:00 Pulse Ox 99 12/21/21 00:00 FiO2 3 12/16/21 08:31 Intake & Output 12/20/21 12/21/21 12/21/21 18:59 06:59 18:59 Intake Total 320 Output Total 1670 700 Balance -1350 -700 Intake: Intake, IV Titration 200 Amount Aztreonam 2 gm In Sodium 200 Chloride 0.9% 100 ml @ 33 .3 mls/hr IVPB Q8H COUNTS INCLUDE 234 BEDS AT THE [facility] Rx #:[id number] Oral 120 Output: Drainage 70 Right Abdomen 70 Urine 1600 700 Other: Voiding Method Diaper Diaper Incontinent Incontinent External Catheter External Catheter # Voids 600 - Exam GENERAL DESCRIPTION: An elderly female lying in bed in no distress RESPIRATORY SYSTEM: Unlabored breathing , decreased breath sounds at bases HEART: S1 S2 regular rate and rhythm , ABDOMEN: Soft , no tenderness EXTREMITIES: No edema feet - Labs CBC & Chem 7: 12/21/21 07:27 12/21/21 07:27 Labs: Abnormal Lab Results - Last 24 Hours (Table) 12/20/21 12/20/21 12/20/21 Range/Units 05:56 05:56 16:35 Potassium 5.2 H (3.5-5.1) mmol/L Anion Gap (10.00-18.00) mmol/L BUN 23 H (7-17) mg/dL Creatinine 1.21 H (0.52-1.04) mg/dL Glucose 160 H (74-99) mg/dL POC Glucose (mg/dL) 272 H (70-110) mg/dL Calcium 7.9 L (8.4-10.2) mg/dL AST 47 H (14-36) U/L Alkaline Phosphatase 227 H (38-126) U/L Total Protein 5.4 L (6.3-8.2) g/dL Albumin 2.4 L (3.5-5.0) g/dL Albumin/Globulin Ratio (1.60-3.17) g/dL TSH 19.000 H (0.350-5.500) uIU/mL 12/20/21 12/20/21 12/21/21 Range/Units 20:31 22:32 06:45 Potassium (3.5-5.1) mmol/L Anion Gap (10.00-18.00) mmol/L BUN (7-17) mg/dL Creatinine (0.52-1.04) mg/dL Glucose (74-99) mg/dL POC Glucose (mg/dL) 204 H 207 H 170 H (70-110) mg/dL Calcium (8.4-10.2) mg/dL AST (14-36) U/L Alkaline Phosphatase (38-126) U/L Total Protein (6.3-8.2) g/dL Albumin (3.5-5.0) g/dL Albumin/Globulin Ratio (1.60-3.17) g/dL TSH (0.350-5.500) uIU/mL 12/21/21 12/21/21 Range/Units 07:27 11:18 Potassium (3.5-5.1) mmol/L Anion Gap 5.80 L (10.00-18.00) mmol/L BUN (7-17) mg/dL Creatinine (0.52-1.04) mg/dL Glucose 164 H (74-99) mg/dL POC Glucose (mg/dL) 151 H (70-110) mg/dL Calcium 8.0 L (8.4-10.2) mg/dL AST (14-36) U/L Alkaline Phosphatase 219 H (38-126) U/L Total Protein 5.4 L (6.3-8.2) g/dL Albumin 2.3 L (3.5-5.0) g/dL Albumin/Globulin Ratio 0.76 L (1.60-3.17) g/dL TSH (0.350-5.500) uIU/mL Microbiology - Last 24 Hours (Table) 12/16/21 14:56 Blood Culture - Preliminary Blood No Growth after 96 hours Assessment and Plan (1) Bacteremia Current Visit: Yes Status: Acute Code(s): R78.81 - BACTEREMIA SNOMED Code(s): 3995958 (2) Cholecystitis Current Visit: Yes Status: Acute Code(s): K81.9 - CHOLECYSTITIS, UNSPECIFIED SNOMED Code(s): 40318623 Plan: 1patient presented to hospital with sepsis in this patient with a fever elevated white count source is likely acute on chronic ascites with empyema of the gallbladder status post open cholecystectomy in this patient abdominal cultures currently growing gram-negative Monnette enteric pathogen. 2positive blood culture with alphahemolytic Streptococcus possible related to empyema of the gallbladder 3antibiotic allergies that would limit the number of antibiotics safe to use. 4patient repeat blood culture had been negative so far patient seemed to have her clinical improvement 5-patient to continue with Azactam , once patient's GI symptoms improved we will transitioned to oral Augmentin on discharge Time with Patient: Less than 30
[2021-12-22] MEDS: SODIUM CHLORIDE 0.9% 1,000 ML IV SCH ×3 (03:01→16:51)
[2021-12-22] MEDS: AZTREONAM 2 GM in SODIUM CHLORIDE 0.9% 100 ML IVPB SCH ×2 (03:02→09:27)
[2021-12-22 07:02] LABS: Glucose,Whole Blood 117 mg/dL (70-110)
--- NOTE | 2021-12-22 08:46 | P.PN ---
Subjective Principal diagnosis: Cholecystitis status post post cystectomy The patient is postop day #6 for infected cholecystitis. We are essentially awaiting transfer to rehab.. Objective - Vital Signs Vital signs: Vital Signs Temp 97.9 F 12/22/21 07:30 Pulse 77 12/22/21 07:30 Resp 16 12/22/21 07:30 BP 114/59 12/22/21 07:30 Pulse Ox 91 L 12/22/21 07:30 FiO2 3 12/16/21 08:31 Intake & Output 12/21/21 12/22/21 12/22/21 18:59 06:59 18:59 Output Total 500 1580 Balance -500 -1580 Output: Drainage 80 Right Abdomen 80 Urine 500 1500 Other: Voiding Method External Catheter External Catheter External Catheter # Bowel Movements 1 - Constitutional General appearance: Present: obese - EENT Eyes: Absent: abnormal pupil - Respiratory Respiratory: bilateral: CTA - Cardiovascular Rhythm: regular Heart sounds: normal: S1, S2 Abnormal Heart Sounds: Absent: S3 Gallop - Gastrointestinal General gastrointestinal: Present: soft. Absent: tenderness - Integumentary Integumentary: Absent: cellulitis - Psychiatric Psychiatric: Present: A&O x's 3 - Labs CBC & Chem 7: 12/21/21 07:27 12/21/21 07:27 Labs: Abnormal Lab Results - Last 24 Hours (Table) 12/21/21 12/21/21 12/21/21 Range/Units 07:27 07:27 11:18 RBC 3.49 L (3.80-5.40) m/uL Hgb 9.9 L (11.4-16.0) gm/dL Hct 32.5 L (34.0-46.0) % MCHC 30.6 L (31.0-37.0) g/dL Anion Gap 5.80 L (10.00-18.00) mmol/L Glucose 164 H (70-110) mg/dL POC Glucose (mg/dL) 151 H (70-110) mg/dL Calcium 8.0 L (8.7-10.3) mg/dL Alkaline Phosphatase 219 H (41-126) U/L Total Protein 5.4 L (6.2-8.2) g/dL Albumin 2.3 L (3.8-4.9) g/dL Albumin/Globulin Ratio 0.76 L (1.60-3.17) g/dL 12/21/21 12/21/21 12/22/21 Range/Units 16:16 22:26 06:46 RBC (3.80-5.40) m/uL Hgb (11.4-16.0) gm/dL Hct (34.0-46.0) % MCHC (31.0-37.0) g/dL Anion Gap (10.00-18.00) mmol/L Glucose (70-110) mg/dL POC Glucose (mg/dL) 188 H 160 H 117 H (70-110) mg/dL Calcium (8.7-10.3) mg/dL Alkaline Phosphatase (41-126) U/L Total Protein (6.2-8.2) g/dL Albumin (3.8-4.9) g/dL Albumin/Globulin Ratio (1.60-3.17) g/dL Microbiology - Last 24 Hours (Table) 12/16/21 14:56 Blood Culture - Preliminary Blood No Growth after 120 hours Assessment and Plan (1) Chills Current Visit: Yes Status: Acute Code(s): R68.83 - CHILLS (WITHOUT FEVER) SNOMED Code(s): 09373848 (2) Cholecystitis Current Visit: Yes Status: Acute Code(s): K81.9 - CHOLECYSTITIS, UNSPECIFIED SNOMED Code(s): 14958075 (3) History of atrial fibrillation Current Visit: Yes Status: Acute Code(s): Z86.79 - PERSONAL HISTORY OF OTHER DISEASES OF THE CIRCULATORY SYSTEM SNOMED Code(s): 693045310 (4) Back pain Current Visit: No Status: Acute Code(s): M54.9 - DORSALGIA, UNSPECIFIED SNOMED Code(s): 310312982 (5) Diabetes Current Visit: No Status: Acute Code(s): E11.9 - TYPE 2 DIABETES MELLITUS WITHOUT COMPLICATIONS SNOMED Code(s): 36267660 (6) Generalized weakness Current Visit: No Status: Acute Code(s): R53.1 - WEAKNESS SNOMED Code(s): 31540642 (7) Hyperlipidemia Current Visit: No Status: Acute Code(s): E78.5 - HYPERLIPIDEMIA, UNSPECIFIED SNOMED Code(s): 85881846 (8) Hypertension Current Visit: No Status: Acute Code(s): I10 - ESSENTIAL (PRIMARY) HYPER TENSION SNOMED Code(s): 46047648 (9) Hypothyroidism Current Visit: No Status: Acute Code(s): E03.9 - HYPOTHYROIDISM, UNSPECIFIED SNOMED Code(s): 79676690 Plan: We'll continue to follow with general surgery. Reconcile medications. Check CBC and CMP in a.m. Advance diet per surgery. Restart anticoagulation per surgery clearance.
[2021-12-22] MEDS: INSULIN ASPART (NovoLOG) 100 UNIT/ML VIAL SQ SCH ×2 (09:00→12:27)
[2021-12-22 09:12] LABS: Basophils # (A) 0.06 X 10*3/uL (0.00-0.10); Basophils % (A) 0.8 %; Eosinophils # (A) 0.26 X 10*3/uL (0.04-0.35); Eosinophils % (A) 3.3 %; HCT 30.1 % (37.2-46.3); HGB 9.2 g/dL (12.0-15.0); Immature Grans, Automated 3.9 %; Lymphocytes # (A) 1.54 X 10*3/uL (0.90-5.00); Lymphocytes % (A) 19.4 %; MCHC 30.6 g/dL (32.0-37.0); MCV 91.8 fL (80.0-97.0); Mean Platelet Volume 10.7 fL (9.5-12.2); Monocytes # (A) 0.68 X 10*3/uL (0.20-1.00); Monocytes % (A) 8.6 %; NRBC Per 100 WBC 0 /100 WBCS (0.0-0.0); Neutrophils # (A) 5.09 X 10*3/uL (1.80-7.70); Platelet Count 220 X 10*3/uL (140-440); RBC 3.28 X 10*6/uL (4.10-5.20); RDW 16.4 % (11.5-14.5); WBC 7.94 X 10*3/uL (4.50-10.00)
[2021-12-22 09:23] LABS: African American GFR (CKD) 80.7 (60.0-200.0); Albumin 2.4 g/dL (3.8-4.9); Albumin/Globulin Ratio 0.86 (1.60-3.17); Anion Gap 8.7 mmol/L (10.00-18.00); BUN/Creat Ratio 16.63 Ratio (12.00-20.00); Blood Urea Nitrogen 13.3 mg/dL (9.0-27.0); C Reactive Protein 5.8 mg/dL (0.00-0.80); Calcium 8.1 mg/dL (8.7-10.3); Carbon Dioxide 24.3 mmol/L (20.0-27.5); Globulin 2.8 g/dL (1.6-3.3); Non-African American GFR(CKD) 69.6 (60.0-200.0); Potassium 3.6 mmol/L (3.5-5.5); Total Bilirubin 0.6 mg/dL (0.30-1.20); Total Protein 5.2 g/dL (6.2-8.2)
[2021-12-22] MEDS: GABAPENTIN 400 MG CAP PO SCH (09:25)
[2021-12-22] MEDS: DOCUSATE 100 MG CAP PO SCH (09:25)
[2021-12-22] MEDS: TAMSULOSIN 0.4 MG CAP.ER.24H PO SCH (09:25)
[2021-12-22] MEDS: FUROSEMIDE 40 MG TAB PO SCH (09:25)
[2021-12-22] MEDS: OXYBUTYNIN 10 MG TAB.ER.24 PO SCH (09:25)
[2021-12-22] MEDS: AMIODARONE 100 MG TAB PO SCH (09:25)
[2021-12-22] MEDS: MULTIVITAMINS, THERA 1 EACH TAB PO SCH (09:25)
[2021-12-22] MEDS: DIGOXIN 125 MCG TAB PO SCH (09:25)
[2021-12-22] MEDS: predniSONE 5 MG TAB PO SCH (09:25)
[2021-12-22] MEDS: HYDROcodone/APAP 7.5-325MG 1 EACH TAB PO SCH ×2 (09:25→12:28)
[2021-12-22] MEDS: CALCIUM CARB-VIT D 500 MG-5 MCG TAB PO SCH (09:25)
[2021-12-22] MEDS: MAGNESIUM OXIDE 400 MG TAB PO SCH (09:25)
[2021-12-22] MEDS: polyethylene glycoL 3350 17 GM POWD.PACK PO SCH (09:27)
[2021-12-22] MEDS: PANTOPRAZOLE 40 MG/10 ML VIAL IVP SCH (09:27)
[2021-12-22] MEDS: METOPROLOL TARTRATE 50 MG TAB PO SCH (09:28)
[2021-12-22] MEDS: HEPARIN SODIUM,PORCINE/PF 5,000 UNIT/0.5 ML SYRINGE SQ SCH (09:28)
[2021-12-22] MEDS ORDERED: LACTULOSE 20 GM/30 ML CUP PO ONE (10:03)
[2021-12-22 11:11] LABS: Glucose,Whole Blood 163 mg/dL (70-110)
[2021-12-22] MEDS ORDERED: AMPICILLIN-SULBACTAM 3 GM in SODIUM CHLORIDE 0.9% 100 ML IVPB SCH (12:30)
[2021-12-22 13:12] VITALS: BP 109/51; PULSE 63; RESP 18; TEMP 97.5
--- NOTE | 2021-12-22 13:17 | P.DS ---
Providers Date of admission: 12/15/21 05:25 Expected date of discharge: 12/22/21 Attending physician: Darius Cruz Consults: 12/15/21 05:25 Consult Physician Routine Consulting Provider: Nicholas Hart Consult Reason/Comments: medical management Do you want consulting provider notified?: Already Contacted 12/17/21 11:46 Consult Physician Routine Consulting Provider: Tg Butts Consult Reason/Comments: positive blood culture Do you want consulting provider notified?: Yes Primary care physician: Nicholas Hart Hospital Course: Discharge diagnosis 1. Acute on chronic cholecystitis, empyema gallbladder, cholelithiasis status post open cholecystectomy 2. Bacteremia Hospital course This is a 81-year-old female who presented to the hospital with complaints of fever and chills. She did have noted elevated liver enzymes and white count a computed tomography scan abdomen and pelvis was completed which demonstrated fat stranding in the right upper quadrant around the gallbladder. There is gallbladder wall thickening. This is consistent with acute on chronic cholecystitis. Gallbladder wall thickening has significantly increased compared to old exam. No dilated ducts. There is small irregular 3 cm fluid collection posterior to the gallbladder fundus. Gallbladder rupture as possible. Aggressive gallbladder tumor is also possible. Patient status post open c holecystectomy for acute on chronic cholecystitis and empyema of the gallbladder. She also had positive blood cultures. She'll be discharged with antibiotics per ID service recommendations. Patient's abdominal pain is improved. She's tolerating diet. Afebrile. She has been up and ambulating. She's worked with physical per therapy they're recommending discharge to [facility] for rehab. Patient's discharge initially held on 12/20/2021 due to insurance authorization. Patient then had a few episodes of vomiting. Vomiting has resolved. She is tolerating diet. She is stable for discharge. Please refer to chart for any further details. Physician Channeler note has been reviewed by physician. Signing provider agrees with the documented findings, assessment, and plan of care. Patient Condition at Discharge: Stable Plan - Discharge Summary Discharge Rx Participant: No New Discharge Prescriptions: New Metoprolol Tartrate [Lopressor] 50 mg PO BID #60 tab Gabapentin 800 mg PO BID 3 Days #6 tab Amoxic-Pot Clav 875-125Mg [Augmentin 875-125] 1 tab PO Q12HR 10 Days #20 tab HYDROcodone/APAP 7.5-325MG [[place] 7.5-325] 1 tab PO Q6HR PRN 3 Days #12 tab PRN Reason: Pain Continue Latanoprost [Xalatan 0.005%] 1 drop BOTH EYES HS Insulin Lispro [humaLOG Kwikpen] See Protocol SQ AC-TID Multivitamins, Thera [Multivitamin (formulary)] 1 tab PO DAILY Dicyclomine [Bentyl] 10 mg PO Q8H PRN PRN Reason: CRAMPS/STOMACH PAIN Insulin Glargine,Hum.rec.anlog [Lantus Solostar Pen] 30 units SQ Q12H Magnesium Oxide 400 mg PO DAILY Omeprazole 20 mg PO DAILY Tamsulosin [Flomax] 0.4 mg PO DAILY Levothyroxine Sodium 150 mcg PO MOTUWE@2100 Docusate [Colace] 100 mg PO BID@0900,1700 Calcium Citrate/Vitamin D3 [Citracal + D Maximum [place]] 1 tab PO BID@0900,1700 Gabapentin 800 mg PO BID@0900,1700 #6 tab predniSONE 5 mg PO DAILY Amiodarone HCl [Cordarone] 100 mg PO DAILY Famotidine [Pepcid] 10 mg PO Q12H PRN PRN Reason: Heartburn methocarbamoL [Methocarbamol] 1,000 mg PO Q6H PRN PRN Reason: Pain Oxybutynin Chloride [Oxybutynin Chloride ER] 10 mg PO DAILY polyethylene glycoL 3350 [Miralax] 17 gm PO DAILY packet Potassium Chloride ER [K-Dur 10] 10 meq PO DAILY@1200 Nitroglycerin Sl Tabs [Nitrostat] 0.4 mg SL Q5M PRN PRN Reason: Chest Pain metFORMIN HCL ER [Glucophage XR] 500 mg PO DAILY@1700 Levothyroxine Sodium [Synthroid] 137 mcg PO SUTHFRSA@2100 Furosemide [Lasix] 40 mg PO BID@0900,1700 Digoxin [Lanoxin] 125 mcg PO Q48H Clotrimazole [Lotrimin AF] 1 applic TOPICAL DAILY PRN PRN Reason: fungas HYDROcodone/APAP 7.5-325MG [[place] 7.5-325] 1 tab PO QID #12 tab Apixaban [Eliquis] 5 mg PO BID@0900,1700 #0 Discontinued Metoprolol Tartrate [Lopressor] 100 mg PO BID@0900,1700 Discharge Medication List Latanoprost [Xalatan 0.005%] 1 drop BOTH EYES HS 08/11/17 [History] Insulin Lispro [humaLOG Kwikpen] See Protocol SQ AC-TID 09/25/18 [History] Multivitamins, Thera [Multivitamin (formulary)] 1 tab PO DAILY 11/19/18 [History] predniSONE 5 mg PO DAILY 07/23/21 [History] Amiodarone HCl [Cordarone] 100 mg PO DAILY 08/30/21 [History] Dicyclomine [Bentyl] 10 mg PO Q8H PRN 08/30/21 [History] Famotidine [Pepcid] 10 mg PO Q12H PRN 08/30/21 [History] Insulin Glargine,Hum.rec.anlog [Lantus Solostar Pen] 30 units SQ Q12H 08/30/21 [History] Magnesium Oxide 400 mg PO DAILY 08/30/21 [History] Omeprazole 20 mg PO DAILY 08/30/21 [History] Oxybutynin Chloride [Oxybutynin Chloride ER] 10 mg PO DAILY 08/30/21 [History] Tamsulosin [Flomax] 0.4 mg PO DAILY 08/30/21 [History] methocarbamoL [Methocarbamol] 1,000 mg PO Q6H PRN 08/30/21 [History] polyethylene glycoL 3350 [Miralax] 17 gm PO DAILY packet 09/06/21 [Rx] Calcium Citrate/Vitamin D3 [Citracal + D Maximum Caplet] 1 tab PO BID@0900,1700 11/16/21 [History] Clotrimazole [Lotrimin AF] 1 applic TOPICAL DAILY PRN 11/16/21 [History] Digoxin [Lanoxin] 125 mcg PO Q48H 11/16/21 [History] Docusate [Colace] 100 mg PO BID@0900,1700 11/16/21 [History] Furosemide [Lasix] 40 mg PO BID@0900,1700 11/16/21 [History] Levothyroxine Sodium 150 mcg PO MOTUWE@209911/16/21 [History] Levothyroxine Sodium [Synthroid] 137 mcg PO SUTHFRSA@2100 11/16/21 [History] Nitroglycerin Sl Tabs [Nitrostat] 0.4 mg SL Q5M PRN 11/16/21 [History] Potassium Chloride ER [K-Dur 10] 10 meq PO DAILY@1200 11/16/21 [History] metFORMIN HCL ER [Glucophage XR] 500 mg PO DAILY@1700 11/16/21 [History] Gabapentin 800 mg PO BID@0900,1700 #6 tab 11/19/21 [Rx] HYDROcodone/APAP 7.5-325MG [[place] 7.5-325] 1 tab PO QID #12 tab 11/19/21 [Rx] Amoxic-Pot Clav 875-125Mg [Augmentin 875-125] 1 tab PO Q12HR 10 Days #20 tab 12/20/21 [Rx] Apixaban [Eliquis] 5 mg PO BID@0900,1700 #0 12/20/21 [Rx] Gabapentin 800 mg PO BID 3 Days #6 tab 12/20/21 [Rx] HYDROcodone/APAP 7.5-325MG [[place] 7.5-325] 1 tab PO Q6HR PRN 3 Days #12 tab 12/20/21 [Rx] Metoprolol Tartrate [Lopressor] 50 mg PO BID #60 tab 12/20/21 [Rx] Follow up Appointment(s)/Referral(s): Jmashid George MD [STAFF PHYSICIAN] - 01/04/22 10:15 am Nicholas Hart MD [Primary Care Provider] - 12/23/21 9:30 am Darius Cruz MD [STAFF PHYSICIAN] - 12/28/21 2:15 pm Patient Instructions/Handouts: Fever in Adults (ED) Activity/Diet/Wound Care/Special Instructions: No driving while taking [place] No lifting over 10 pounds Shower daily. No soaking or tub baths for 2 weeks Very light activity until you are reevaluated at your follow up appointment with your surgeon Consistent carbohydrate diet at discharge Discharge Disposition: TRANSFER TO SNF/ECF
[2021-12-22 13:50] VITALS: BMI 34.9
[2021-12-22 16:25] LABS: Glucose,Whole Blood 221 mg/dL (70-110)
== END 2021-12-22 16:39 | DRG 854 ==
LOC: EC 01:34 → 4SSUR 05:25
PROVIDERS: ADMIT Surgery; ATTEND Surgery
PROC: 0FJ44ZZ Inspection of Gallbladder, Percutaneous Endoscopic Approach (ICD-10-PCS; 2021-12-15)
PROC: 0FT40ZZ Resection of Gallbladder, Open Approach (ICD-10-PCS; principal; 2021-12-15 08:30)
DX: A40.8 Other streptococcal sepsis (principal); I48.21 Permanent atrial fibrillation; R18.8 Other ascites; K80.12 Calculus of gallbladder with acute and chronic cholecystitis without obstruction; M35.07 Sjogren syndrome with central nervous system involvement; E11.9 Type 2 diabetes mellitus without complications; I10 Essential (primary) hypertension; M06.9 Rheumatoid arthritis, unspecified; E03.9 Hypothyroidism, unspecified; D64.9 Anemia, unspecified; I27.20 Pulmonary hypertension, unspecified; K82.A1 Gangrene of gallbladder in cholecystitis; I95.9 Hypotension, unspecified; R09.02 Hypoxemia; M47.816 Spondylosis without myelopathy or radiculopathy, lumbar region; E78.5 Hyperlipidemia, unspecified; M79.7 Fibromyalgia; R33.9 Retention of urine, unspecified; R74.01 Elevation of levels of liver transaminase levels; G89.29 Other chronic pain; B96.20 Unspecified Escherichia coli [E. coli] as the cause of diseases classified elsewhere; R01.1 Cardiac murmur, unspecified; J30.1 Allergic rhinitis due to pollen; I25.10 Atherosclerotic heart disease of native coronary artery without angina pectoris; Z20.822 Contact with and (suspected) exposure to COVID-19; Z28.311 Partially vaccinated for COVID-19; Z53.31 Laparoscopic surgical procedure converted to open procedure; Z87.891 Personal history of nicotine dependence; Z88.1 Allergy status to other antibiotic agents; Z79.899 Other long term (current) drug therapy; Z79.01 Long term (current) use of anticoagulants; Z79.4 Long term (current) use of insulin; Z79.52 Long term (current) use of systemic steroids; Z79.890 Hormone replacement therapy; Z79.84 Long term (current) use of oral hypoglycemic drugs; Z86.14 Personal history of Methicillin resistant Staphylococcus aureus infection; Z79.891 Long term (current) use of opiate analgesic; Z88.2 Allergy status to sulfonamides; Z91.048 Other nonmedicinal substance allergy status
CPT/HCPCS: 36415; 71046; 74176; 80048; 80053; 81001; 83605; 84439; 84443; 84484; 85025; 85027; 86140; 87040; 87070; 87075; 87077; 87086; 87186; 87205; 87502; 87635; 88304; 93005; 94760; 96361; 96365; 96366; 96367; 96375; 99285

== ENCOUNTER 2022-01-09 09:00 | Observation (INO) | payer MEDICARE ==
--- NOTE | 2022-01-09 09:14 | ED ---
Weakness HPI - General Chief complaint: Weakness Stated complaint: Dizziness Time Seen by Provider: 01/09/22 09:01 Source: patient, EMS, RN notes reviewed Mode of arrival: EMS Limitations: no limitations - History of Present Illness Initial comments: This is an 81-year-old female who presents to the emergency department for weakness. States that she was in the shower this morning, on her shower chair, and when she got out of the shower she proceeded to dry herself off. Afterwards she started to feel weak. Describes the weakness as being all over her body. Reports a couple of seconds of left-sided chest pain that resolved very quickly. Denies any shortness of breath. The weakness is not localized to one side of the body. She was discharged from a halfway recently and has only been at home for a couple of days. She does not recall why she was in the halfway, however upon review of her chart, she had an open cholecystectomy here on 12/15 with associated bacteremia and was [facility] 12/[facility] to [facility] facility. She currently lives with her . Other than the weakness, she is not complaining of any pain or other symptoms. Denies any fevers, chills, sore throat, cough, dyspnea, palpitations, abdominal pain, nausea, vomiting, diarrhea, back pain, or headaches. MD Complaint: generalized weakness Location: generalized - Related Data Home Medications Medication Instructions Recorded Confirmed Latanoprost [Xalatan 0.005%] 1 drop BOTH EYES HS 08/11/17 12/15/21 Insulin Lispro [humaLOG Kwikpen] See Protocol SQ AC-TID 09/25/18 12/15/21 Multivitamins, Thera [Multivitamin 1 tab PO DAILY 11/19/18 12/15/21 (formulary)] predniSONE 5 mg PO DAILY 07/23/21 12/15/21 Amiodarone HCl [Cordarone] 100 mg PO DAILY 08/30/21 12/15/21 Dicyclomine [Bentyl] 10 mg PO Q8H PRN 08/30/21 12/15/21 Famotidine [Pepcid] 10 mg PO Q12H PRN 08/30/21 12/15/21 Insulin Glargine,Hum.rec.anlog 30 units SQ Q12H 08/30/21 12/15/21 [Lantus Solostar Pen] Magnesium Oxide 400 mg PO DAILY 08/30/21 12/15/21 Omeprazole 20 mg PO DAILY 08/30/21 12/15/21 Oxybutynin Chloride [Oxybutynin 10 mg PO DAILY 08/30/21 12/15/21 Chloride ER] Tamsulosin [Flomax] 0.4 mg PO DAILY 08/30/21 12/15/21 methocarbamoL [Methocarbamol] 1,000 mg PO Q6H PRN 08/30/21 12/15/21 Calcium Citrate/Vitamin D3 1 tab PO BID@0900,1700 11/16/21 12/15/21 [Citracal + D Maximum Caplet] Clotrimazole [Lotrimin AF] 1 applic TOPICAL DAILY PRN 11/16/21 12/15/21 Digoxin [Lanoxin] 125 mcg PO Q48H 11/16/21 12/15/21 Docusate [Colace] 100 mg PO BID@0900,169911/16/21 12/15/21 Furosemide [Lasix] 40 mg PO BID@0900,169911/16/21 12/15/21 Levothyroxine Sodium 150 mcg PO MOTUWE@209911/16/21 12/15/21 Levothyroxine Sodium [Synthroid] 137 mcg PO SUTHFRSA@209911/16/21 12/15/21 Nitroglycerin Sl Tabs [Nitrostat] 0.4 mg SL Q5M PRN 11/16/21 12/15/21 Potassium Chloride ER [K-Dur 10] 10 meq PO DAILY@1200 11/16/21 12/15/21 metFORMIN HCL ER [Glucophage XR] 500 mg PO DAILY@169911/16/21 12/15/21 Previous Rx's Medication Instructions Recorded polyethylene glycoL 3350 [Miralax] 17 gm PO DAILY packet 09/06/21 Gabapentin 800 mg PO BID@0900,1700 #6 tab 11/19/21 HYDROcodone/APAP 7.5-325MG [[place] 1 tab PO QID #12 tab 11/19/21 7.5-325] Amoxic-Pot Clav 875-125Mg 1 tab PO Q12HR 10 Days #20 tab 12/20/21 [Augmentin 875-125] Apixaban [Eliquis] 5 mg PO BID@0900,1700 #0 12/20/21 Gabapentin 800 mg PO BID 3 Days #6 tab 12/20/21 HYDROcodone/APAP 7.5-325MG [[place] 1 tab PO Q6HR PRN 3 Days #12 tab 12/20/21 7.5-325] Metoprolol Tartrate [Lopressor] 50 mg PO BID #60 tab 12/20/21 Allergies Allergy/AdvReac Type Severity Reaction Status Date / Time adhesive Allergy Rash/Hives Verified 01/09/22 09:09 cephalexin [From Keflex] Allergy Rash/Hives Verified 01/09/22 09:09 grass pollen Allergy Unknown Verified 01/09/22 09:09 mold Allergy Unknown Verified 01/09/22 09:09 Sulfa (Sulfonamide Allergy Rash/Hives Verified 01/09/22 09:09 Antibiotics) newspaper ink Allergy Mild Unknown Uncoded 01/09/22 09:09 Review of Systems ROS Statement: Those systems with pertinent positive or pertinent negative responses have been documented in the HPI. ROS Other: All systems not noted in ROS Statement are negative. Past Medical History Past Medical History: Atrial Fibrillation, Coronary Artery Disease (CAD), Cancer, Diabetes Mellitus, Hyperlipidemia, Hypertension, Musculoskeletal Disorder, Neurologic Disorder, Osteoarthritis (OA), Pneumonia, Renal Disease, Rheumatoid Arthritis (RA), Skin Disorder, Thyroid Disorder Additional Past Medical History / Comment(s): Morbid obesity, chronic atrial fibrillation, diabetes mellitus type 2, hypertension, hyperlipidemia, spinal stenosis, osteoarthritis, hypothyroidism, hypertension, history of skin melanoma, history of bursitis with MRSA post I&D, rheumatoid arthritis, Sjogren's disease, 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 without any indication of ILD related to RA, Fall on July 22 transfer to [facility] for MRI, then Fall on 11/16/21 History of Any Multi-Drug Resistant Organisms: MRSA Date of last positivie culture/infection: 02/27/14 MDRO Source:: Sputum Past Surgical History: Back Surgery, Breast Surgery, Heart Catheterization, Joint Replacement, Orthopedic Surgery Additional Past Surgical History / Comment(s): Bilateral cataracts with lens implants, arthroscopies to lt wrist, gualberto knees, gualberto ankles, gualberto hips, lt hip replacment and redone, L/R shoulder sxs, rt breast bx-benign, egd/colonoscopy, skin cancer removal L arm, Lumbar fixnation possible broken Past Anesthesia/Blood Transfusion Reactions: No Reported Reaction Additional Past Anesthesia/Blood Transfusion Reaction / Comment(s): Pt has been told not to have anesthesia metabolized by the kidneys and has neurologic Sjogren's with post anesthesia paralysis. Past Psychological History: No Psychological Hx Reported Smoking Status: Former smoker Past Alcohol Use History: None Reported Past Drug Use History: None Reported - Past Family History Mother Family Medical History: CVA/TIA Additional Family Medical History / Comment(s): RUPTURED BOWEL Father Family Medical History: Cancer, Pneumonia Additional Family Medical History / Comment(s): ASPIRATIVE PNA Sister(s) Additional Family Medical History / Comment(s): at age 34 with lupus General Exam Limitations: no limitations General appearance: alert, other (drowsy) Head exam: Present: atraumatic, normocephalic, normal inspection Respiratory exam: Present: normal lung sounds bilaterally. Absent: respiratory distress, wheezes, rales, rhonchi, stridor Cardiovascular Exam: Present: irregular rhythm Neurological exam: Present: alert, oriented X3, CN II-XII intact Expanded Cranial nerves: EOM's Intact: Normal Sensory exam: Upper Extremity Light Touch: Normal, Upper Extremity Temperature: Normal Motor strength exam: RUE: 4, LUE: 4, RLE: 4, LLE: 4 Eye Response: (4) open spontaneously Motor Response: (6) obeys commands Verbal Response: (5) oriented Course Vital Signs 01/09/22 01/09/22 01/09/22 09:04 10:30 11:38 Temperature 96.9 F L Pulse Rate 89 80 80 Respiratory 18 16 18 Rate Blood Pressure 124/56 126/64 131/61 O2 Sat by Pulse 97 93 L 97 Oximetry EKG Findings - EKG Comments: EKG Findings:: Atrial fibrillation. Normal axis. Ventricular rate 77 bpm, QRS duration 111 ms, QTC 455 ms. - EKG Results: EKG: interpreted by BONIFACIO Medical Decision Making - Medical Decision Making This is an 81-year-old female who presents to the emergency department for weakness. Chest x-ray obtained and my interpretation of this does not reveal any acute consolidations or infiltrates. Lab work reveals lactic acidosis of 3.0. Hemoglobin is decreased but stable from prior values. Urinalysis is also consistent with a urinary tract infection. She was given a bolus of normal saline and started on maintenance fluids. She was also given a dose of Zosyn for the UTI. EKG reveals new ST segment depressions in leads 2 and 3 per ED attending. Given the rather sudden onset weakness with associated UTI and EKG changes, patient will be admitted to medicine for IV antibiotics and cardiac evaluation. This case was discussed in detail with the attending ED physician. Presentation, findings, and treatment plan discussed in detail as well. - Lab Data Result diagrams: 01/09/22 09:01/09/22 09: Lab Results 01/09/22 01/09/22 01/09/22 Range/Units 09: 09: 09: WBC 5.8 (3.8-10.6) k/uL RBC 3.85 (3.80-5.40) m/uL Hgb 10.7 L (11.4-16.0) gm/dL Hct 34.0 (34.0-46.0) % MCV 88.5 (80.0-100.0) fL MCH 27.8 (25.0-35.0) pg MCHC 31.4 (31.0-37.0) g/dL RDW 15.8 H (11.5-15.5) % Plt Count 272 (150-450) k/uL MPV 8.0 Neutrophils % 52 % Lymphocytes % 29 % Monocytes % 7 % Eosinophils % 7 % Basophils % 1 % Neutrophils # 3.0 (1.3-7.7) k/uL Lymphocytes # 1.7 (1.0-4.8) k/uL Monocytes # 0.4 (0-1.0) k/uL Eosinophils # 0.4 (0-0.7) k/uL Basophils # 0.1 (0-0.2) k/uL Hypochromasia Moderate PT 11.2 (9.0-12.0) sec INR 1.0 (<1.2) APTT 22.9 (22.0-30.0) sec Sodium 138 (137-145) mmol/L Potassium 3.6 (3.5-5.1) mmol/L Chloride 97 L (98-107) mmol/L Carbon Dioxide 32 H (22-30) mmol/L Anion Gap 9 mmol/L BUN 17 (7-17) mg/dL Creatinine 0.74 (0.52-1.04) mg/dL Est GFR (CKD-EPI)AfAm 89 (>60 ml/min/1.73 sqM) Est GFR (CKD-EPI)NonAf 77 (>60 ml/min/1.73 sqM) Glucose 223 H (74-99) mg/dL Lactic Ac Sepsis Rflx Plasma Lactic Acid Cj (0.7-2.0) mmol/L Calcium 8.8 (8.4-10.2) mg/dL Phosphorus 4.0 (2.5-4.5) mg/dL Magnesium 1.5 L (1.6-2.3) mg/dL Total Bilirubin 0.6 (0.2-1.3) mg/dL AST 39 H (14-36) U/L ALT 23 (4-34) U/L Alkaline Phosphatase 121 (38-126) U/L Troponin I (0.000-0.034) ng/mL NT-Pro-B Natriuret Pep pg/mL Total Protein 6.9 (6.3-8.2) g/dL Albumin 3.4 L (3.5-5.0) g/dL TSH 27.100 H (0.465-4.680) mIU/L Free T4 1.15 (0.78-2.19) ng/dL Urine Color Urine Appearance (Clear) Urine pH (5.0-8.0) Ur Specific [place] (1.001-1.035) Urine Protein (Negative) Urine Glucose (UA) (Negative) Urine Ketones (Negative) Urine Blood (Negative) Urine Nitrite (Negative) Urine Bilirubin (Negative) Urine Urobilinogen (<2.0) mg/dL Ur Leukocyte Esterase (Negative) Urine RBC (0-5) /hpf Urine WBC (0-5) /hpf Ur Squamous Epith Cells (0-4) /hpf Urine Bacteria (None) /hpf Urine Mucus (None) /hpf Coronavirus (PCR) (Not Detectd) Influenza Type A RNA (Not Detectd) Influenza Type B (PCR) (Not Detectd) 01/09/22 01/09/22 01/09/22 Range/Units 09:23 09:23 09:23 WBC (3.8-10.6) k/uL RBC (3.80-5.40) m/uL Hgb (11.4-16.0) gm/dL Hct (34.0-46.0) % MCV (80.0-100.0) fL MCH (25.0-35.0) pg MCHC (31.0-37.0) g/dL RDW (11.5-15.5) % Plt Count (150-450) k/uL MPV Neutrophils % % Lymphocytes % % Monocytes % % Eosinophils % % Basophils % % Neutrophils # (1.3-7.7) k/uL Lymphocytes # (1.0-4.8) k/uL Monocytes # (0-1.0) k/uL Eosinophils # (0-0.7) k/uL Basophils # (0-0.2) k/uL Hypochromasia PT (9.0-12.0) sec INR (<1.2) APTT (22.0-30.0) sec Sodium (137-145) mmol/L Potassium (3.5-5.1) mmol/L Chloride (98-107) mmol/L Carbon Dioxide (22-30) mmol/L Anion Gap mmol/L BUN (7-17) mg/dL Creatinine (0.52-1.04) mg/dL Est GFR (CKD-EPI)AfAm (>60 ml/min/1.73 sqM) Est GFR (CKD-EPI)NonAf (>60 ml/min/1.73 sqM) Glucose (74-99) mg/dL Lactic Ac Sepsis Rflx Plasma Lactic Acid Cj 3.0 H* (0.7-2.0) mmol/L Calcium (8.4-10.2) mg/dL Phosphorus (2.5-4.5) mg/dL Magnesium (1.6-2.3) mg/dL Total Bilirubin (0.2-1.3) mg/dL AST (14-36) U/L ALT (4-34) U/L Alkaline Phosphatase (38-126) U/L Troponin I <0.012 (0.000-0.034) ng/mL NT-Pro-B Natriuret Pep pg/mL Total Protein (6.3-8.2) g/dL Albumin (3.5-5.0) g/dL TSH (0.465-4.680) mIU/L Free T4 (0.78-2.19) ng/dL Urine Color Yellow Urine Appearance Cloudy H (Clear) Urine pH 7.5 (5.0-8.0) Ur Specific [place] 1.014 (1.001-1.035) Urine Protein 1+ H (Negative) Urine Glucose (UA) Negative (Negative) Urine Ketones Negative (Negative) Urine Blood Negative (Negative) Urine Nitrite Negative (Negative) Urine Bilirubin Negative (Negative) Urine Urobilinogen <2.0 (<2.0) mg/dL Ur Leukocyte Esterase Large H (Negative) Urine RBC 4 (0-5) /hpf Urine WBC >182 H (0-5) /hpf Ur Squamous Epith Cells <1 (0-4) /hpf Urine Bacteria Rare H (None) /hpf Urine Mucus Rare H (None) /hpf Coronavirus (PCR) (Not Detectd) Influenza Type A RNA (Not Detectd) Influenza Type B (PCR) (Not Detectd) 01/09/22 01/09/22 01/09/22 Range/Units 09:23 09:23 09:23 WBC (3.8-10.6) k/uL RBC (3.80-5.40) m/uL Hgb (11.4-16.0) gm/dL Hct (34.0-46.0) % MCV (80.0-100.0) fL MCH (25.0-35.0) pg MCHC (31.0-37.0) g/dL RDW (11.5-15.5) % Plt Count (150-450) k/uL MPV Neutrophils % % Lymphocytes % % Monocytes % % Eosinophils % % Basophils % % Neutrophils # (1.3-7.7) k/uL Lymphocytes # (1.0-4.8) k/uL Monocytes # (0-1.0) k/uL Eosinophils # (0-0.7) k/uL Basophils # (0-0.2) k/uL Hypochromasia PT (9.0-12.0) sec INR (<1.2) APTT (22.0-30.0) sec Sodium (137-145) mmol/L Potassium (3.5-5.1) mmol/L Chloride (98-107) mmol/L Carbon Dioxide (22-30) mmol/L Anion Gap mmol/L BUN (7-17) mg/dL Creatinine (0.52-1.04) mg/dL Est GFR (CKD-EPI)AfAm (>60 ml/min/1.73 sqM) Est GFR (CKD-EPI)NonAf (>60 ml/min/1.73 sqM) Glucose (74-99) mg/dL Lactic Ac Sepsis Rflx Plasma Lactic Acid Cj (0.7-2.0) mmol/L Calcium (8.4-10.2) mg/dL Phosphorus (2.5-4.5) mg/dL Magnesium (1.6-2.3) mg/dL Total Bilirubin (0.2-1.3) mg/dL AST (14-36) U/L ALT (4-34) U/L Alkaline Phosphatase (38-126) U/L Troponin I (0.000-0.034) ng/mL NT-Pro-B Natriuret Pep 1820 pg/mL Total Protein (6.3-8.2) g/dL Albumin (3.5-5.0) g/dL TSH (0.465-4.680) mIU/L Free T4 (0.78-2.19) ng/dL Urine Color Urine Appearance (Clear) Urine pH (5.0-8.0) Ur Specific [place] (1.001-1.035) Urine Protein (Negative) Urine Glucose (UA) (Negative) Urine Ketones (Negative) Urine Blood (Negative) Urine Nitrite (Negative) Urine Bilirubin (Negative) Urine Urobilinogen (<2.0) mg/dL Ur Leukocyte Esterase (Negative) Urine RBC (0-5) /hpf Urine WBC (0-5) /hpf Ur Squamous Epith Cells (0-4) /hpf Urine Bacteria (None) /hpf Urine Mucus (None) /hpf Coronavirus (PCR) Not Detected (Not Detectd) Influenza Type A RNA Not Detected (Not Detectd) Influenza Type B (PCR) Not Detected (Not Detectd) 01/09/22 Range/Units 09:57 WBC (3.8-10.6) k/uL RBC (3.80-5.40) m/uL Hgb (11.4-16.0) gm/dL Hct (34.0-46.0) % MCV (80.0-100.0) fL MCH (25.0-35.0) pg MCHC (31.0-37.0) g/dL RDW (11.5-15.5) % Plt Count (150-450) k/uL MPV Neutrophils % % Lymphocytes % % Monocytes % % Eosinophils % % Basophils % % Neutrophils # (1.3-7.7) k/uL Lymphocytes # (1.0-4.8) k/uL Monocytes # (0-1.0) k/uL Eosinophils # (0-0.7) k/uL Basophils # (0-0.2) k/uL Hypochromasia PT (9.0-12.0) sec INR (<1.2) APTT (22.0-30.0) sec Sodium (137-145) mmol/L Potassium (3.5-5.1) mmol/L Chloride (98-107) mmol/L Carbon Dioxide (22-30) mmol/L Anion Gap mmol/L BUN (7-17) mg/dL Creatinine (0.52-1.04) mg/dL Est GFR (CKD-EPI)AfAm (>60 ml/min/1.73 sqM) Est GFR (CKD-EPI)NonAf (>60 ml/min/1.73 sqM) Glucose (74-99) mg/dL Lactic Ac Sepsis Rflx Y Plasma Lactic Acid Cj (0.7-2.0) mmol/L Calcium (8.4-10.2) mg/dL Phosphorus (2.5-4.5) mg/dL Magnesium (1.6-2.3) mg/dL Total Bilirubin (0.2-1.3) mg/dL AST (14-36) U/L ALT (4-34) U/L Alkaline Phosphatase (38-126) U/L Troponin I (0.000-0.034) ng/mL NT-Pro-B Natriuret Pep pg/mL Total Protein (6.3-8.2) g/dL Albumin (3.5-5.0) g/dL TSH (0.465-4.680) mIU/L Free T4 (0.78-2.19) ng/dL Urine Color Urine Appearance (Clear) Urine pH (5.0-8.0) Ur Specific [place] (1.001-1.035) Urine Protein (Negative) Urine Glucose (UA) (Negative) Urine Ketones (Negative) Urine Blood (Negative) Urine Nitrite (Negative) Urine Bilirubin (Negative) Urine Urobilinogen (<2.0) mg/dL Ur Leukocyte Esterase (Negative) Urine RBC (0-5) /hpf Urine WBC (0-5) /hpf Ur Squamous Epith Cells (0-4) /hpf Urine Bacteria (None) /hpf Urine Mucus (None) /hpf Coronavirus (PCR) (Not Detectd) Influenza Type A RNA (Not Detectd) Influenza Type B (PCR) (Not Detectd) - Radiology Data Radiology results: report reviewed, image reviewed Disposition Clinical Impression: UTI (urinary tract infection), Weakness, Acute electrocardiogram changes, Lactic acidosis Disposition: ADMITTED IP TO THIS HOSP
[2022-01-09 09:40] LABS: Basophils # (A) 0.1 k/uL (0-0.2); Basophils % (A) 1 %; Eosinophils # (A) 0.4 k/uL (0-0.7); Eosinophils % (A) 7 %; HGB 10.7 gm/dL (11.4-16.0); Hypochromasia Moderate; Lymphocytes # (A) 1.7 k/uL (1.0-4.8); Lymphocytes % (A) 29 %; MCH 27.8 pg (25.0-35.0); MCHC 31.4 g/dL (31.0-37.0); MCV 88.5 fL (80.0-100.0); Monocytes # (A) 0.4 k/uL (0-1.0); Monocytes % (A) 7 %; Neutrophils % (A) 52 %; Platelet Count 272 k/uL (150-450); RBC 3.85 m/uL (3.80-5.40); RDW 15.8 % (11.5-15.5); WBC 5.8 k/uL (3.8-10.6)
--- NOTE | 2022-01-09 09:46 | XR ---
EXAMINATION TYPE: XR chest 2V DATE OF EXAM: 01/09/2022 COMPARISON: 12/15/2021 HISTORY: Shortness of breath TECHNIQUE: Frontal and lateral views of the chest are obtained. FINDINGS: Scattered senescent parenchymal changes noted. Hyperinflation compatible with COPD. No evidence for infiltrate. No evidence for atelectasis. Heart size is stable. Pulmonary venous congestion without overt failure at this time. Mediastinal structures are stable and grossly unremarkable. No evidence for hilar prominence. Degenerative changes dorsal spine. IMPRESSION: 1. Pulmonary venous congestion without overt failure at this time. No focal consolidation.
[2022-01-09 09:58] LABS: Partial Thromboplastin Time 22.9 sec (22.0-30.0); Prothrombin Time 11.2 sec (9.0-12.0)
[2022-01-09] MEDS ORDERED: SODIUM CHLORIDE 0.9% 1,000 ML IV STA ×2 (09:58→10:55)
[2022-01-09 10:06] LABS: ALT 23 U/L (4-34); AST 39 U/L (14-36); African American GFR (CKD) 89 (>60 ml/min/1.73 sqM); Albumin 3.4 g/dL (3.5-5.0); Alkaline Phosphatase 121 U/L (38-126); Anion Gap 9 mmol/L; Blood Urea Nitrogen 17 mg/dL (7-17); Calcium 8.8 mg/dL (8.4-10.2); Carbon Dioxide 32 mmol/L (22-30); Chloride 97 mmol/L (98-107); Glucose 223 mg/dL (74-99); Magnesium 1.5 mg/dL (1.6-2.3); Non-African American GFR(CKD) 77 (>60 ml/min/1.73 sqM); Potassium 3.6 mmol/L (3.5-5.1); Sodium 138 mmol/L (137-145); Total Bilirubin 0.6 mg/dL (0.2-1.3); Total Protein 6.9 g/dL (6.3-8.2)
[2022-01-09 10:24] LABS: Appearance,Urine Cloudy (Clear); Bacteria,Urine Rare /hpf; Bilirubin,Urine Negative (Negative); Blood,Urine Negative (Negative); Color,Urine Yellow; Glucose,Urine (UA) Negative (Negative); Ketones,Urine Negative (Negative); Leukocyte Esterase,Urine Large (Negative); Mucus,Urine Rare /hpf; Nitrite,Urine Negative (Negative); PH, Urine 7.5 (5.0-8.0); Protein,Urine 1+ (Negative); RBC,Urine 4 /hpf (0-5); Specific Gravity,Urine 1.014 (1.001-1.035); Squamous Epithelial Cell,Urine <1 /hpf (0-4); Urobilinogen,Urine <2.0 mg/dL (<2.0); WBC,Urine >182 /hpf (0-5)
[2022-01-09 10:49] LABS: T4, Free (Free Thyroxine) 1.15 ng/dL (0.78-2.19)
[2022-01-09] MEDS ORDERED: GABAPENTIN 400 MG CAP PO STA (11:42)
[2022-01-09] MEDS ORDERED: HYDROcodone/APAP 7.5-325MG 1 EACH TAB PO ONE (11:42)
[2022-01-09] MEDS ORDERED: ONDANSETRON 4 MG/2 ML VIAL IVP PRN (12:15)
[2022-01-09] MEDS ORDERED: NALOXONE 0.4 MG/ML 1 ML VIAL IV PRN (12:15)
[2022-01-09] MEDS ORDERED: ACETAMINOPHEN TAB 325 MG TAB PO PRN (12:15)
[2022-01-09] MEDS: PIPERACILLIN-TAZOBACTAM 3.375 GM in SODIUM CHLORIDE 0.9% 100 ML IVPB SCH ×2 (12:27→19:32)
[2022-01-09] MEDS: APIXABAN 5 MG TAB PO SCH (18:26)
[2022-01-09] MEDS: CALCIUM CARB-VIT D 500 MG-5 MCG TAB PO SCH (18:27)
[2022-01-09] MEDS: DOCUSATE 100 MG CAP PO SCH (18:27)
[2022-01-09] MEDS: FUROSEMIDE 40 MG TAB PO SCH (18:27)
[2022-01-09] MEDS: METOPROLOL TARTRATE 50 MG TAB PO SCH (18:27)
[2022-01-09] MEDS: HYDROcodone/APAP 7.5-325MG 1 EACH TAB PO PRN (18:27)
[2022-01-09] MEDS ORDERED: FAMOTIDINE 20 MG TAB PO PRN (19:17)
--- NOTE | 2022-01-09 19:22 | P.HPIM ---
History of Present Illness H&P Date: 01/09/22 Chief Complaint: Weakness/dizziness 81-year-old female who presents to the emergency department for weakness. States that she was in the shower this morning, on her shower chair, and when she got out of the shower she proceeded to dry herself off. Afterwards she started to feel weak. Describes the weakness as being all over her body. Reports a couple of seconds of left-sided chest pain that resolved very quickly. Denies any shortness of breath. The weakness is not localized to one side of the body. She was discharged from a alf recently and has only been at home for a couple of days. She does not recall why she was in the alf, however upon review of her chart, she had an open cholecystectomy here on 12/15 with associated bacteremia and was discharged on 12/22 to the shelter facility. She currently lives with her . Other than the weakness, she is not complaining of any pain or other symptoms. Chest x-ray obtained and my interpretation of this does not reveal any acute consolidations or infiltrates. Lab work reveals lactic acidosis of 3.0. Hemoglobin is decreased but stable from prior values. Urinalysis is also co nsistent with a urinary tract infection. She was given a bolus of normal saline and started on maintenance fluids. She was also given a dose of Zosyn for the UTI. EKG reveals new ST segment depressions in leads 2 and 3 per ED attending. Given the rather sudden onset weakness with associated UTI and EKG changes, patient will be admitted for IV antibiotics and cardiac evaluation. Review of Systems REVIEW OF SYSTEMS: CONSTITUTIONAL: No fever, no malaise, no fatigue. HEENT: No recent visual problems or hearing problems. Denied any sore throat. CARDIOVASCULAR: No chest pain, orthopnea, PND, no palpitations, no syncope. PULMONARY: No shortness of breath, no cough, no hemoptysis. GASTROINTESTINAL: No diarrhea, no nausea, no vomiting, no abdominal pain. NEUROLOGICAL: No headaches, no weakness, no numbness. HEMATOLOGICAL: Denies any bleeding or petechiae. GENITOURINARY: Denies any burning micturition, frequency, or urgency. MUSCULOSKELETAL/RHEUMATOLOGICAL: Denies any joint pain, swelling, or any muscle pain. ENDOCRINE: Denies any polyuria or polydipsia. The rest of the 14-point review of systems is negative. Past Medical History Past Medical History: Atrial Fibrillation, Coronary Artery Disease (CAD), Cancer, Diabetes Mellitus, Hyperlipidemia, Hypertension, Musculoskeletal Disorder, Neurologic Disorder, Osteoarthritis (OA), Pneumonia, Renal Disease, Rheumatoid Arthritis (RA), Skin Disorder, Thyroid Disorder Additional Past Medical History / Comment(s): Morbid obesity, chronic atrial fibrillation, diabetes mellitus type 2, hypertension, hyperlipidemia, spinal stenosis, osteoarthritis, hypothyroidism, hypertension, history of skin melanoma , history of bursitis with MRSA post I&D, rheumatoid arthritis, Sjogren's disease, 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 without any indication of ILD related to RA, Fall on July 22 transfer to [facility] for MRI, then Fall on 11/16/21 History of Any Multi-Drug Resistant Organisms: MRSA Date of last positivie culture/infection: 02/27/14 MDRO Source:: Sputum Past Surgical History: Back Surgery, Breast Surgery, Heart Catheterization, Joint Replacement, Orthopedic Surgery Additional Past Surgical History / Comment(s): Bilateral cataracts with lens implants, arthroscopies to lt wrist, gualberto knees, gualberto ankles, gualberto hips, lt hip replacment and redone, L/R shoulder sxs, rt breast bx-benign, egd/colonoscopy, skin cancer removal L arm, Lumbar fixnation possible broken Past Anesthesia/Blood Transfusion Reactions: No Reported Reaction Additional Past Anesthesia/Blood Transfusion Reaction / Comment(s): Pt has been told not to have anesthesia metabolized by the kidneys and has neurologic Sjogren's with post anesthesia paralysis. Past Psychological History: No Psychological Hx Reported Smoking Status: Former smoker Past Alcohol Use History: None Reported Past Drug Use History: None Reported - Past Family History Mother Family Medical History: CVA/TIA Additional Family Medical History / Comment(s): RUPTURED BOWEL Father Family Medical History: Cancer, Pneumonia Additional Family Medical History / Comment(s): ASPIRATIVE PNA Sister(s) Additional Family Medical History / Comment(s): at age 34 with lupus Medications and Allergies Home Medications Medication Instructions Recorded Confirmed Type Latanoprost [Xalatan 0.005%] 1 drop BOTH EYES HS 08/11/17 01/09/22 History Insulin Lispro [humaLOG Kwikpen] See Protocol SQ AC-TID 09/25/18 01/09/22 History Multivitamins, Thera [Multivitamin 1 tab PO DAILY@1200 11/19/18 01/09/22 History (formulary)] predniSONE 5 mg PO DAILY@0907/23/21 01/09/22 History Amiodarone HCl [Cordarone] 100 mg PO DAILY@89908/30/21 01/09/22 History Dicyclomine [Bentyl] 10 mg PO Q8H PRN 08/30/21 01/09/22 History Famotidine [Pepcid] 10 mg PO Q12H PRN 08/30/21 01/09/22 History Insulin Glargine,Hum.rec.anlog 30 units SQ DAILY@79908/30/21 01/09/22 History [Lantus Solostar Pen] Magnesium Oxide 400 mg PO DAILY@119908/30/21 01/09/22 History Omeprazole 20 mg PO DAILY@89908/30/21 01/09/22 History Oxybutynin Chloride [Oxybutynin 10 mg PO DAILY@89908/30/21 01/09/22 History Chloride ER] Tamsulosin [Flomax] 0.4 mg PO DAILY@89908/30/21 01/09/22 History methocarbamoL [Methocarbamol] 1,000 mg PO Q6H PRN 08/30/21 01/09/22 History polyethylene glycoL 3350 [Miralax] 17 gm PO DAILY packet 09/06/21 01/09/22 Rx Calcium Citrate/Vitamin D3 1 tab PO BID@0900,1700 11/16/21 01/09/22 History [Citracal + D Maximum Caplet] Clotrimazole [Lotrimin AF] 1 applic TOPICAL DAILY PRN 11/16/21 01/09/22 History Digoxin [Lanoxin] 125 mcg PO Q48H PRN 11/16/21 01/09/22 History Docusate [Colace] 100 mg PO BID@0900,1700 11/16/21 01/09/22 History Furosemide [Lasix] 40 mg PO BID@0900,1700 11/16/21 01/09/22 History Levothyroxine Sodium 150 mcg PO MOTUWETH@0600 11/16/21 01/09/22 History Levothyroxine Sodium [Synthroid] 137 mcg PO SUFRSA@59911/16/21 01/09/22 History Nitroglycerin Sl Tabs [Nitrostat] 0.4 mg SL Q5M PRN 11/16/21 01/09/22 History Potassium Chloride ER [K-Dur 10] 10 meq PO DAILY@1200 11/16/21 01/09/22 History metFORMIN HCL ER [Glucophage XR] 500 mg PO DAILY@1700 11/16/21 01/09/22 History Apixaban [Eliquis] 5 mg PO BID@0900,1700 #0 12/20/21 01/09/22 Rx HYDROcodone/APAP 7.5-325MG [[place] 1 tab PO Q6HR PRN 3 Days #12 tab 12/20/21 01/09/22 Rx 7.5-325] Acetaminophen [Tylenol] 650 mg PO Q4H PRN 01/09/22 01/09/22 History Adalimumab [Humira(Cf) Pen] 40 mg SQ WE 01/09/22 01/09/22 History Gabapentin 800 mg PO BID@0900,2130 01/09/22 01/09/22 History Insulin Glargine,Hum.rec.anlog 15 units SQ HS@212901/09/22 01/09/22 History [Lantus Solostar Pen] Mag Hydrox/Al Hydrox/Simeth 30 ml PO Q6H PRN 01/09/22 01/09/22 History [Maalox] Metoprolol Tartrate [Lopressor] 50 mg PO BID@0900,1700 01/09/22 01/09/22 History Sodium Chloride [Saline Mist] 1 spray EA NOSTRIL Q2H PRN 01/09/22 01/09/22 History Allergies Allergy/AdvReac Type Severity Reaction Status Date / Time adhesive Allergy Rash/Hives Verified 01/09/22 15:04 cephalexin [From Keflex] Allergy Rash/Hives Verified 01/09/22 15:04 grass pollen Allergy Unknown Verified 01/09/22 15:04 mold Allergy Unknown Verified 01/09/22 15:04 Sulfa (Sulfonamide Allergy Rash/Hives Verified 01/09/22 15:04 Antibiotics) newspaper ink Allergy Mild Unknown Uncoded 01/09/22 09:09 Physical Exam Vitals: Vital Signs Temp Pulse Resp BP Pulse Ox 01/09/22 16:00 78 18 138/74 95 01/09/22 11:38 80 18 131/61 97 01/09/22 10:30 80 16 126/64 93 L 01/09/22 09:04 96.9 F L 89 18 124/56 97 Intake and Output 01/09/22 01/09/22 01/09/22 06:59 14:59 22:59 Other: Weight 118.388 kg - Constitutional General appearance: Present: average body habitus, cooperative, no acute distress - EENT Eyes: Present: anicteric sclerae, EOMI, PERRLA, normal appearance ENT: Present: hearing grossly normal, normal oropharynx Ears: bilateral: normal - Neck Neck: Present: normal ROM. Absent: lymphadenopathy, rigidity, thyromegaly Carotids: negative: bruit present Thyroid: bilateral: normal size, negative: enlarged, nodule - Respiratory Respiratory: bilateral: CTA, negative: rales, rhonchi, wheezing - Cardiovascular Rhythm: regular Heart sounds: normal: S1, S2 Abnormal Heart Sounds: Absent: systolic murmur, diastolic murmur - Gastrointestinal General gastrointestinal: Present: normal bowel sounds, soft. Absent: distended, organomegaly, tenderness - Genitourinary Genitourinary Comment(s): deferred - Integumentary Integumentary: Present: normal turgor. Absent: jaundiced, rash, ulcer - Neurologic Neurologic: Present: CNII-XII intact. Absent: focal deficits - Musculoskeletal Musculoskeletal: Present: gait normal, strength equal bilaterally - Psychiatric Psychiatric: Present: A&O x's 3, appropriate affect, intact judgment & insight Results CBC & Chem 7: 01/09/22 09:23 01/09/22 09:23 Labs: Abnormal Lab Results - Last 24 Hours (Table) 01/09/22 01/09/22 01/09/22 Range/Units 09:23 09:23 09:23 Hgb 10.7 L (11.4-16.0) gm/dL RDW 15.8 H (11.5-15.5) % Chloride 97 L (98-107) mmol/L Carbon Dioxide 32 H (22-30) mmol/L Glucose 223 H (74-99) mg/dL Plasma Lactic Acid Cj 3.0 H* (0.7-2.0) mmol/L Magnesium 1.5 L (1.6-2.3) mg/dL AST 39 H (14-36) U/L Albumin 3.4 L (3.5-5.0) g/dL TSH 27.100 H (0.465-4.680) mIU/L Urine Appearance (Clear) Urine Protein (Negative) Ur Leukocyte Esterase (Negative) Urine WBC (0-5) /hpf Urine Bacteria (None) /hpf Urine Mucus (None) /hpf 01/09/22 Range/Units 09:23 Hgb (11.4-16.0) gm/dL RDW (11.5-15.5) % Chloride (98-107) mmol/L Carbon Dioxide (22-30) mmol/L Glucose (74-99) mg/dL Plasma Lactic Acid Cj (0.7-2.0) mmol/L Magnesium (1.6-2.3) mg/dL AST (14-36) U/L Albumin (3.5-5.0) g/dL TSH (0.465-4.680) mIU/L Urine Appearance Cloudy H (Clear) Urine Protein 1+ H (Negative) Ur Leukocyte Esterase Large H (Negative) Urine WBC >182 H (0-5) /hpf Urine Bacteria Rare H (None) /hpf Urine Mucus Rare H (None) /hpf Assessment and Plan Assessment: 1. EKG changes; possible unstable angina; history of coronary artery disease - Patient denies any complaint of chest pain; continue with metoprolol and anticoagulation - Cardiology is consulted for further recommendations 2. UTI; currently on IV antibiotics in form of Zosyn 3.375 g IV every 8 hours; we will adjust antibiotics once culture results are available 3. Anemia; stable at baseline; monitor CBC 4. Hyperglycemia/diabetes mellitus; monitor Accu-Cheks before meals and at bedtime with insulin sliding scale; continue with home dose of Lantus 15 units subcu daily at bedtime and 30 units subcu every morning 5. Hypertension; metoprolol 50 mg twice a day 6. Hyperlipidemia; currently not on statin therapy 7. Atrial fibrillation; patient remains rate controlled on amiodarone and metoprolol; continue anticoagulation 8. Hypothyroidism; levothyroxin 137 MCG daily every Monday and 150 MCG every Monday and 9. BPH/urinary incontinence; Flomax 0.4 mg daily
[2022-01-09] MEDS: GABAPENTIN 400 MG CAP PO SCH (20:53)
[2022-01-09] MEDS ORDERED: LATANOPROST 0.005% OPHTH DROPS 2.5 ML BTL BOTH EYES SCH (21:00)
[2022-01-09] MEDS ORDERED: INSULIN DETEMIR (LEVEMIR) 100 UNIT/ML SYR SQ SCH (21:30)
[2022-01-10] MEDS: HYDROcodone/APAP 7.5-325MG 1 EACH TAB PO PRN ×2 (01:04→07:40)
[2022-01-10] MEDS: PIPERACILLIN-TAZOBACTAM 3.375 GM in SODIUM CHLORIDE 0.9% 100 ML IVPB SCH ×2 (04:10→11:22)
[2022-01-10 05:39] VITALS: TEMP 98.2
[2022-01-10] MEDS ORDERED: LEVOTHYROXINE 75 MCG TAB PO SCH (06:00)
[2022-01-10] MEDS ORDERED: INSULIN DETEMIR (LEVEMIR) 100 UNIT/ML SYR SQ SCH (08:00)
--- NOTE | 2022-01-10 08:46 | P.PN ---
Subjective Progress Note Date: 01/10/22 Principal diagnosis: Weakness, UTI This is an 81-year-old female admitted for weakness and UTI. Patient reports she got out of the shower yesterday and had an episode of weakness and chest pain. Today she is seen alert and oriented laying in bed with no complaints. Patient denies any current chest pain. Will await consult with cardiology for further workup. Objective - Vital Signs Vital signs: Vital Signs Temp 98.2 F 01/10/22 05:38 Pulse 68 01/10/22 05:38 Resp 18 01/10/22 05:38 BP 159/81 01/10/22 05:38 Pulse Ox 97 01/10/22 05:38 FiO2 Intake & Output 01/09/22 01/10/22 01/10/22 18:59 06:59 18:59 Weight 118.388 kg - Constitutional General appearance: Present: cooperative. Absent: no acute distress - EENT Eyes: Present: EOMI, PERRLA - Neck Neck: Present: normal ROM. Absent: rigidity - Respiratory Respiratory: bilateral: CTA - Cardiovascular Rhythm: irregularly irregular - Gastrointestinal General gastrointestinal: Present: normal bowel sounds, soft - Integumentary Integumentary: Present: normal, normal turgor - Psychiatric Psychiatric: Present: A&O x's 3, appropriate affect, intact judgment & insight - Labs CBC & Chem 7: 01/09/22 09:23 01/09/22 09:23 Labs: Abnormal Lab Results - Last 24 Hours (Table) 01/09/22 01/09/22 01/09/22 Range/Units 09:23 09:23 09:23 Hgb 10.7 L (11.4-16.0) gm/dL RDW 15.8 H (11.5-15.5) % Chloride 97 L (98-107) mmol/L Carbon Dioxide 32 H (22-30) mmol/L Glucose 223 H (74-99) mg/dL Plasma Lactic Acid Cj 3.0 H* (0.7-2.0) mmol/L Magnesium 1.5 L (1.6-2.3) mg/dL AST 39 H (14-36) U/L Albumin 3.4 L (3.5-5.0) g/dL TSH 27.100 H (0.465-4.680) mIU/L Urine Appearance (Clear) Urine Protein (Negative) Ur Leukocyte Esterase (Negative) Urine WBC (0-5) /hpf Urine Bacteria (None) /hpf Urine Mucus (None) /hpf 01/09/22 Range/Units 09:23 Hgb (11.4-16.0) gm/dL RDW (11.5-15.5) % Chloride (98-107) mmol/L Carbon Dioxide (22-30) mmol/L Glucose (74-99) mg/dL Plasma Lactic Acid Cj (0.7-2.0) mmol/L Magnesium (1.6-2.3) mg/dL AST (14-36) U/L Albumin (3.5-5.0) g/dL TSH (0.465-4.680) mIU/L Urine Appearance Cloudy H (Clear) Urine Protein 1+ H (Negative) Ur Leukocyte Esterase Large H (Negative) Urine WBC >182 H (0-5) /hpf Urine Bacteria Rare H (None) /hpf Urine Mucus Rare H (None) /hpf Microbiology - Last 24 Hours (Table) 01/09/22 09:23 Urine Culture - Preliminary Urine,Voided Assessment and Plan (1) Acute electrocardiogram changes Current Visit: Yes Status: Acute Code(s): R94.31 - ABNORMAL ELECTROCARDIOGRAM [ECG] [EKG] SNOMED Code(s): 184491340 (2) Generalized weakness Current Visit: Yes Status: Acute Code(s): R53.1 - WEAKNESS SNOMED Code(s): 90008388 (3) UTI (urinary tract infection) Current Visit: Yes Status: Acute Code(s): N39.0 - URINARY TRACT INFECTION, SITE NOT SPECIFIED SNOMED Code(s): 33105279 (4) Atrial fibrillation Current Visit: Yes Status: Acute Code(s): I48.91 - UNSPECIFIED ATRIAL FIBRILLATION SNOMED Code(s): 85181318 (5) Hypertension Current Visit: No Status: Acute Code(s): I10 - ESSENTIAL (PRIMARY) HYPERTENSION SNOMED Code(s): 17888854 (6) Insulin dependent diabetes mellitus Current Visit: No Status: Acute Code(s): DKY9349 - SNOMED Code(s): 44214311 Plan: Cardiology is consulted. Will await for their recommendations. Continue to monitor closely. Patient seen and evaluated by nurse practitioner, physician in agreement with plan
[2022-01-10] MEDS ORDERED: OXYBUTYNIN 10 MG TAB.ER.24 PO SCH (09:00)
[2022-01-10] MEDS ORDERED: TAMSULOSIN 0.4 MG CAP.ER.24H PO SCH (09:00)
[2022-01-10] MEDS ORDERED: AMIODARONE 100 MG TAB PO SCH (09:00)
[2022-01-10] MEDS ORDERED: PANTOPRAZOLE 40 MG TABLET PO SCH (09:00)
[2022-01-10] MEDS ORDERED: polyethylene glycoL 3350 17 GM POWD.PACK PO SCH (09:00)
[2022-01-10] MEDS ORDERED: predniSONE 5 MG TAB PO SCH (09:00)
[2022-01-10] MEDS: GABAPENTIN 400 MG CAP PO SCH (10:31)
[2022-01-10] MEDS: FUROSEMIDE 40 MG TAB PO SCH ×2 (10:31→17:18)
[2022-01-10] MEDS: CALCIUM CARB-VIT D 500 MG-5 MCG TAB PO SCH ×2 (10:31→17:18)
[2022-01-10] MEDS: DOCUSATE 100 MG CAP PO SCH ×2 (10:31→17:18)
[2022-01-10] MEDS: APIXABAN 5 MG TAB PO SCH ×2 (10:31→17:17)
[2022-01-10] MEDS: METOPROLOL TARTRATE 50 MG TAB PO SCH ×2 (10:32→17:18)
[2022-01-10 10:39] LABS: Glucose,Whole Blood 197 mg/dL (70-110)
--- NOTE | 2022-01-10 11:22 | P.CRDCN ---
History of Present Illness Consult date: 01/10/22 History of present illness: HISTORY OF PRESENT ILLNESS: This is a 81 year old female with a past medical history significant for permanent atrial fibrillation, coronary artery disease, hypertension, hyperlipidemia, congestive heart failure and former nicotine dependence. Patient follows in the office with Dr. George. We have been asked to see the patient in consultation for abnormal EKG. Patient examined at the bedside. Patient is admitted to the hospital secondary to UTI and weakness. Patient denies chest pain or pressure. Denies SOB. Telemetry reveals atrial fibrillation with controlled ventricular rate. * EKG reveals atrial fibrillation with nonspecific ST depression * Chest xray pulmonary venous congestion without overt failure at this time. No focal consolidation. * Laboratory data: WBC 5.8. Hemoglobin 10.7. Platelet count 272. Sodium 138. Potassium 3.6. BUN 17. Creatinine 0.74. Lactic acid 3.0. Troponin negative 3. TSH 27.100. Free T4 1 0.15. * Current home cardiac medications include digoxin 125 g every 48 hours, a miodarone 100 mg daily, Eliquis 5 mg twice a day, Lasix 40 mg twice a day, metoprolol tartrate 50 mg twice a day * Most recent echocardiogram obtained in September 2018 revealed ejection fraction 55% * Cardiac catheterization history: August 2017 revealing intermediate disease involving the mid left circumflex which is a medium caliber vessel. REVIEW OF SYSTEMS: At the time of my exam: CONSTITUTIONAL: Denies fever or chills. HEENT: Denies blurred vision, vision changes, or eye pain. Denies hemoptysis CARDIOVASCULAR: Denies chest pain. Denies orthopnea. Denies PND. Denies palpitations RESPIRATORY: Denies shortness of breath. GASTROINTESTINAL: Denies abdominal pain. Denies nausea or vomiting. HEMATOLOGIC: Denies bleeding disorders. GENITOURINARY: Denies any blood in urine. SKIN: Denies pruitis. Denies rash. PHYSICAL EXAM: VITAL SIGNS: Reviewed. GENERAL: Well-developed in no acute distress. HEENT: Head is normocephalic. Pupils are equal, round. Sclerae anicteric. Mucous membranes of the mouth are moist. Neck supple. No JVD or thyromegaly LUNGS: Respirations even and unlabored. Lungs essentially clear to auscultation bilaterally. HEART: Irregular rate and rhythm. S1 and S2 heard. ABDOMEN: Soft. Nondistended. Nontender. EXTREMITIES: Normal range of motion. No clubbing or cyanosis. Peripheral pulses intact. No lower extremity edema NEUROLOGIC: Awake and alert. Oriented x 3. ASSESSMENT: Urinary tract infection Weakness Coronary artery disease Permanent atrial fibrillation Abnormal EKG, may be secondary to digoxin effect, ACS ruled out, troponin negative x 3 Chronic congestive heart failure with preserved ejection fraction Hypertension Hyperlipidemia Former nicotine dependence PLAN: Discontinue amiodarone as patient has permanent atrial fibrillation and has elevated TSH Continue additional cardiac medications Patient is currently stable from a cardiac standpoint We will sign off. Please reconsult if needed. Nurse practitioner note has been reviewed by physician. Signing provider agrees with the documented findings, assessment, and plan of care. Past Medical History Past Medical History: Atrial Fibrillation, Coronary Artery Disease (CAD), Cancer, Diabetes Mellitus, Hyperlipidemia, Hypertension, Musculoskeletal Disorder, Neurologic Disorder, Osteoarthritis (OA), Pneumonia, Renal Disease, Rheumatoid Arthritis (RA), Skin Disorder, Thyroid Disorder Additional Past Medical History / Comment(s): Morbid obesity, chronic atrial fibrillation, diabetes mellitus type 2, hypertension, hyperlipidemia, spinal stenosis, osteoarthritis, hypothyroidism, hypertension, history of skin melanoma, history of bursitis with MRSA post I&D, rheumatoid arthritis, Sjogren's disease, 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 without any indication of ILD related to RA, Fall on July 22 transfer to [facility] for MRI, then Fall on 11/16/21 History of Any Multi-Drug Resistant Organisms: MRSA Date of last positivie culture/infection: 02/27/14 MDRO Source:: Sputum Past Surgical History: Back Surgery, Breast Surgery, Heart Catheterization, Joint Replacement, Orthopedic Surgery Additional Past Surgical History / Comment(s): Bilateral cataracts with lens implants, arthroscopies to lt wrist, gualberto knees, gualberto ankles, gualberto hips, lt hip replacment and redone, L/R shoulder sxs, rt breast bx-benign, egd/colonoscopy, skin cancer removal L arm, Lumbar fixnation possible broken Past Anesthesia/Blood Transfusion Reactions: No Reported Reaction Additional Past Anesthesia/Blood Transfusion Reaction / Comment(s): Pt has been told not to have anesthesia metabolized by the kidneys and has neurologic Sjogren's with post anesthesia paralysis. Past Psychological History: No Psychological Hx Reported Smoking Status: Former smoker Past Alcohol Use History: None Reported Past Drug Use History: None Reported - Past Family History Mother Family Medical History: CVA/TIA Additional Family Medical History / Comment(s): RUPTURED BOWEL Father Family Medical History: Cancer, Pneumonia Additional Family Medical History / Comment(s): ASPIRATIVE PNA Sister(s) Additional Family Medical History / Comment(s): at age 34 with lupus Medications and Allergies Home Medications Medication Instructions Recorded Confirmed Type Latanoprost [Xalatan 0.005%] 1 drop BOTH EYES HS 08/11/17 01/09/22 History Insulin Lispro [humaLOG Kwikpen] See Protocol SQ AC-TID 09/25/18 01/09/22 History Multivitamins, Thera [Multivitamin 1 tab PO DAILY@1200 11/19/18 01/09/22 History (formulary)] predniSONE 5 mg PO DAILY@0907/23/21 01/09/22 History Amiodarone HCl [Cordarone] 100 mg PO DAILY@0908/30/21 01/09/22 History Dicyclomine [Bentyl] 10 mg PO Q8H PRN 08/30/21 01/09/22 History Famotidine [Pepcid] 10 mg PO Q12H PRN 08/30/21 01/09/22 History Insulin Glargine,Hum.rec.anlog 30 units SQ DAILY@0800 08/30/21 01/09/22 History [Lantus Solostar Pen] Magnesium Oxide 400 mg PO DAILY@1200 08/30/21 01/09/22 History Omeprazole 20 mg PO DAILY@0908/30/21 01/09/22 History Oxybutynin Chloride [Oxybutynin 10 mg PO DAILY@0908/30/21 01/09/22 History Chloride ER] Tamsulosin [Flomax] 0.4 mg PO DAILY@0908/30/21 01/09/22 History methocarbamoL [Methocarbamol] 1,000 mg PO Q6H PRN 08/30/21 01/09/22 History polyethylene glycoL 3350 [Miralax] 17 gm PO DAILY packet 09/06/21 01/09/22 Rx Calcium Citrate/Vitamin D3 1 tab PO BID@0900,1700 11/16/21 01/09/22 History [Citracal + D Maximum Caplet] Clotrimazole [Lotrimin AF] 1 applic TOPICAL DAILY PRN 11/16/21 01/09/22 History Digoxin [Lanoxin] 125 mcg PO Q48H PRN 11/16/21 01/09/22 History Docusate [Colace] 100 mg PO BID@0900,1700 11/16/21 01/09/22 History Furosemide [Lasix] 40 mg PO BID@0900,1700 11/16/21 01/09/22 History Levothyroxine Sodium 150 mcg PO MOTUWETH@0600 11/16/21 01/09/22 History Levothyroxine Sodium [Synthroid] 137 mcg PO SUFRSA@0600 11/16/21 01/09/22 History Nitroglycerin Sl Tabs [Nitrostat] 0.4 mg SL Q5M PRN 11/16/21 01/09/22 History Potassium Chloride ER [K-Dur 10] 10 meq PO DAILY@1200 11/16/21 01/09/22 History metFORMIN HCL ER [Glucophage XR] 500 mg PO DAILY@17011/16/21 01/09/22 History Apixaban [Eliquis] 5 mg PO BID@0900,1700 #0 12/20/21 01/09/22 Rx HYDROcodone/APAP 7.5-325MG [[place] 1 tab PO Q6HR PRN 3 Days #12 tab 12/20/21 01/09/22 Rx 7.5-325] Acetaminophen [Tylenol] 650 mg PO Q4H PRN 01/09/22 01/09/22 History Adalimumab [Humira(Cf) Pen] 40 mg SQ WE 01/09/22 01/09/22 History Gabapentin 800 mg PO BID@0900,212901/09/22 01/09/22 History Insulin Glargine,Hum.rec.anlog 15 units SQ HS@212901/09/22 01/09/22 History [Lantus Solostar Pen] Mag Hydrox/Al Hydrox/Simeth 30 ml PO Q6H PRN 01/09/22 01/09/22 History [Maalox] Metoprolol Tartrate [Lopressor] 50 mg PO BID@0900,1700 01/09/22 01/09/22 History Sodium Chloride [Saline Mist] 1 spray EA NOSTRIL Q2H PRN 01/09/22 01/09/22 History Allergies Allergy/AdvReac Type Severity Reaction Status Date / Time adhesive Allergy Rash/Hives Verified 01/09/22 15:04 cephalexin [From Keflex] Allergy Rash/Hives Verified 01/09/22 15:04 grass pollen Allergy Unknown Verified 01/09/22 15:04 mold Allergy Unknown Verified 01/09/22 15:04 Sulfa (Sulfonamide Allergy Rash/Hives Verified 01/09/22 15:04 Antibiotics) newspaper ink Allergy Mild Unknown Uncoded 01/09/22 09:09 Physical Exam Vitals: Vital Signs Temp Pulse Resp BP Pulse Ox 01/10/22 05:38 98.2 F 68 18 159/81 97 01/10/22 02:00 98.4 F 66 16 166/80 98 01/10/22 01:05 65 18 130/65 99 01/09/22 20:17 98.4 F 72 18 134/67 98 01/09/22 18:55 97.6 F 92 18 134/67 94 L 01/09/22 16:00 78 18 138/74 95 01/09/22 11:38 80 18 131/61 97 Results 01/09/22 09:23 01/09/22 09:23 Cardiac Enzymes 01/09/22 01/09/22 Range/Units 12:53 16:16 Troponin I <0.012 0.012 (0.000-0.034) ng/mL Current Medications Generic Name Dose Route Start Last Admin Trade Name Freq PRN Reason Stop Dose Admin Acetaminophen 650 mg 01/09/22 12:15 Acetaminophen Tab 325 Mg Tab PO Q6HR PRN Mild Pain or Fever > 100.5 Hydrocodone Bitart/Acetaminophen 1 each 01/09/22 15:57 01/10/22 07:40 Hydrocodone/Apap 7.5-325mg 1 Each Tab PO 1 each Q6HR PRN Administration Pain Apixaban 5 mg 01/09/22 17:00 01/10/22 10:31 Apixaban 5 Mg Tab PO 5 mg BID@0900,1700 [facility] Administration Protocol Calcium Carbonate 1 each 01/09/22 17:00 01/10/22 10:31 Calcium Carb-Vit D 500 Mg-5 Mcg Tab PO 1 each BID@0900,1700 [facility] Administration Docusate Sodium 100 mg 01/09/22 17:00 01/10/22 10:31 Docusate 100 Mg Cap PO 100 mg BID@0900,1700 [facility] Administration Famotidine 10 mg 01/09/22 19:17 Famotidine 20 Mg Tab PO Q12H PRN Heartburn Furosemide 40 mg 01/09/22 17:00 01/10/22 10:31 Furosemide 40 Mg Tab PO 40 mg BID@0900,1700 [facility] Administration Gabapentin 800 mg 01/09/22 21:30 01/10/22 10:31 Gabapentin 400 Mg Cap PO 800 mg BID@0900,2129 [facility] Administration Piperacillin Sod/Tazobactam 100 mls @ 25 mls/hr 01/09/22 12:00 01/10/22 04:10 Sod 3.375 gm/ Sodium Chloride IVPB 25 mls/hr Q8H [facility] Administration Protocol Insulin Detemir 30 unit 01/10/22 08:00 01/10/22 10:37 Insulin Detemir (Levemir) 100 Unit/Ml Syr SQ 30 unit DAILY@0800 [facility] Administration Insulin Detemir 15 unit 01/09/22 21:30 01/09/22 20:54 Insulin Detemir (Levemir) 100 Unit/Ml Syr SQ 15 unit HS@2129 [facility] Administration Latanoprost 1 drops 01/09/22 21:00 01/09/22 20:53 Latanoprost 0.005% Ophth Drops 2.5 Ml Btl BOTH EYES 1 drops HS [facility] Administration Levothyroxine Sodium 150 mcg 01/10/22 06:00 01/10/22 05:28 Levothyroxine 75 Mcg Tab PO 150 mcg MOTUWETH@0600 [facility] Administration Levothyroxine Sodium 137 mcg 01/14/22 06:00 Levothyroxine 137 Mcg Tab PO SUFRSA@0600 [facility] Magnesium Oxide 400 mg 01/10/22 12:00 Magnesium Oxide 400 Mg Tab PO DAILY@1200 [facility] Metoprolol Tartrate 50 mg 01/09/22 17:00 01/10/22 10:32 Metoprolol Tartrate 50 Mg Tab PO 50 mg BID@0900,1700 [facility] Administration Multivitamins 1 each 01/10/22 12:00 Multivitamins, Thera 1 Each Tab PO DAILY@1200 [facility] Naloxone HCl 0.2 mg 01/09/22 12:15 Naloxone 0.4 Mg/Ml 1 Ml Vial IV Q2M PRN Opioid Reversal Ondansetron HCl 4 mg 01/09/22 12:15 Ondansetron 4 Mg/2 Ml Vial IVP Q8HR PRN Nausea And Vomiting Oxybutynin Chloride 10 mg 01/10/22 09:00 01/10/22 10:32 Oxybutynin 10 Mg Tab.Er.24 PO 10 mg DAILY@0900 [facility] Administration Pantoprazole Sodium 40 mg 01/10/22 09:00 01/10/22 10:32 Pantoprazole 40 Mg Tablet PO 40 mg DAILY@0900 [facility] Administration Polyethylene Glycol 17 gm 01/10/22 09:00 01/10/22 10:32 Polyethylene Glycol 3350 17 Gm Powd.Pack PO 17 gm DAILY [facility] Administration Potassium Chloride 10 meq 01/10/22 12:00 Potassium Chloride Er 10 Meq Tab.Er.Prt PO DAILY@1200 [facility] Prednisone 5 mg 01/10/22 09:00 Prednisone 5 Mg Tab PO DAILY@0900 [facility] Tamsulosin HCl 0.4 mg 01/10/22 09:00 01/10/22 10:32 Tamsulosin 0.4 Mg Cap.Er.24h PO 0.4 mg DAILY@0900 [facility] Administration 01/09/22 09:23 01/09/22 09:23
[2022-01-10 11:31] LABS: Basophils # (A) 0.1 k/uL (0-0.2); Basophils % (A) 1 %; Eosinophils # (A) 0.6 k/uL (0-0.7); Eosinophils % (A) 11 %; HCT 31.9 % (34.0-46.0); Hypochromasia Marked; Lymphocytes # (A) 1.5 k/uL (1.0-4.8); Lymphocytes % (A) 28 %; MCH 28.4 pg (25.0-35.0); MCHC 31.3 g/dL (31.0-37.0); MCV 90.6 fL (80.0-100.0); Mean Platelet Volume 7.5; Monocytes # (A) 0.4 k/uL (0-1.0); Monocytes % (A) 7 %; Neutrophils # (A) 2.7 k/uL (1.3-7.7); Neutrophils % (A) 50 %; Platelet Count 235 k/uL (150-450); RBC 3.52 m/uL (3.80-5.40); RDW 15.5 % (11.5-15.5); WBC 5.3 k/uL (3.8-10.6)
[2022-01-10 11:52] LABS: African American GFR (CKD) >90 (>60 ml/min/1.73 sqM); Anion Gap 4 mmol/L; Blood Urea Nitrogen 10 mg/dL (7-17); Calcium 8.4 mg/dL (8.4-10.2); Carbon Dioxide 34 mmol/L (22-30); Chloride 100 mmol/L (98-107); Glucose 190 mg/dL (74-99); Non-African American GFR(CKD) 85 (>60 ml/min/1.73 sqM); Potassium 3.6 mmol/L (3.5-5.1); Sodium 138 mmol/L (137-145)
[2022-01-10] MEDS ORDERED: MULTIVITAMINS, THERA 1 EACH TAB PO SCH (12:00)
[2022-01-10] MEDS ORDERED: MAGNESIUM OXIDE 400 MG TAB PO SCH (12:00)
[2022-01-10] MEDS ORDERED: POTASSIUM CHLORIDE ER 10 MEQ TAB.ER.PRT PO SCH (12:00)
--- NOTE | 2022-01-10 17:45 | P.DS ---
Providers Date of admission: 01/09/22 10:55 Attending physician: Nicholas Hart Primary care physician: Nicholas Hart Hospital Course: This is discharge summary an 81-year-old white female with known history of atrial fibrillation and congestive heart failure COPD with diabetes who was admitted essentially for chest pain after exercising. 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 The patient was admitted for cardiology workup and found to also have UTI and placed on Zosyn. The patient is to be discharged on appropriate antibody treatment and to follow-up with me in 3 days. The patient was discharge from a cardiology perspective and is tolerating diet. Plan - Discharge Summary New Discharge Prescriptions: New Levofloxacin [Levaquin] 500 mg PO DAILY 5 Days #5 tab Continue Latanoprost [Xalatan 0.005%] 1 drop BOTH EYES HS Insulin Lispro [humaLOG Kwikpen] See Protocol SQ AC-TID Multivitamins, Thera [Multivitamin (formulary)] 1 tab PO DAILY@1200 Dicyclomine [Bentyl] 10 mg PO Q8H PRN PRN Reason: CRAMPS/STOMACH PAIN Insulin Glargine,Hum.rec.anlog [Lantus Solostar Pen] 30 units SQ DAILY@0800 Magnesium Oxide 400 mg PO DAILY@1200 Omeprazole 20 mg PO DAILY@0900 Tamsulosin [Flomax] 0.4 mg PO DAILY@0900 Levothyroxine Sodium 150 mcg PO MOTUWETH@0600 Docusate [Colace] 100 mg PO BID@0900,1700 Calcium Citrate/Vitamin D3 [Citracal + D Maximum Caplet] 1 tab PO BID@0900,1700 Mag Hydrox/Al Hydrox/Simeth [Maalox] 30 ml PO Q6H PRN PRN Reason: Gi Upset Acetaminophen [Tylenol] 650 mg PO Q4H PRN PRN Reason: Pain Or Fever > 100.5 Adalimumab [Humira(Cf) Pen] 40 mg SQ WE predniSONE 5 mg PO DAILY@0900 Amiodarone HCl [Cordarone] 100 mg PO DAILY@0900 Famotidine [Pepcid] 10 mg PO Q12H PRN PRN Reason: Heartburn methocarbamoL [Methocarbamol] 1,000 mg PO Q6H PRN PRN Reason: Pain Oxybutynin Chloride [Oxybutynin Chloride ER] 10 mg PO DAILY@0900 polyethylene glycoL 3350 [Miralax] 17 gm PO DAILY packet Potassium Chloride ER [K-Dur 10] 10 meq PO DAILY@1200 Nitroglycerin Sl Tabs [Nitrostat] 0.4 mg SL Q5M PRN PRN Reason: Chest Pain metFORMIN HCL ER [Glucophage XR] 500 mg PO DAILY@1700 Levothyroxine Sodium [Synthroid] 137 mcg PO SUFRSA@0600 Furosemide [Lasix] 40 mg PO BID@0900,1700 Digoxin [Lanoxin] 125 mcg PO Q48H PRN PRN Reason: HOLD IF PULSE LESS 60 Clotrimazole [Lotrimin AF] 1 applic TOPICAL DAILY PRN PRN Reason: FUNGAL INFECTION Apixaban [Eliquis] 5 mg PO BID@0900,1700 #0 HYDROcodone/APAP 7.5-325MG [[place] 7.5-325] 1 tab PO Q6HR PRN 3 Days #12 tab PRN Reason: Pain Sodium Chloride [Saline Mist] 1 spray EA NOSTRIL Q2H PRN PRN Reason: DRY NOSE/COLD SYMPTOMS Metoprolol Tartrate [Lopressor] 50 mg PO BID@0900,1700 Insulin Glargine,Hum.rec.anlog [Lantus Solostar Pen] 15 units SQ HS@2129 Gabapentin 800 mg PO BID@0900,2129 Discharge Medication List Latanoprost [Xalatan 0.005%] 1 drop BOTH EYES HS 08/11/17 [History] Insulin Lispro [humaLOG Kwikpen] See Protocol SQ AC-TID 09/25/18 [History] Multivitamins, Thera [Multivitamin (formulary)] 1 tab PO DAILY@1200 11/19/18 [H istory] predniSONE 5 mg PO DAILY@0900 07/23/21 [History] Amiodarone HCl [Cordarone] 100 mg PO DAILY@0900 08/30/21 [History] Dicyclomine [Bentyl] 10 mg PO Q8H PRN 08/30/21 [History] Famotidine [Pepcid] 10 mg PO Q12H PRN 08/30/21 [History] Insulin Glargine,Hum.rec.anlog [Lantus Solostar Pen] 30 units SQ DAILY@0800 22 [History] Magnesium Oxide 400 mg PO DAILY@119908/30/21 [History] Omeprazole 20 mg PO DAILY@89908/30/21 [History] Oxybutynin Chloride [Oxybutynin Chloride ER] 10 mg PO DAILY@89908/30/21 [History] Tamsulosin [Flomax] 0.4 mg PO DAILY@89908/30/21 [History] methocarbamoL [Methocarbamol] 1,000 mg PO Q6H PRN 08/30/21 [History] polyethylene glycoL 3350 [Miralax] 17 gm PO DAILY packet 09/06/21 [Rx] Calcium Citrate/Vitamin D3 [Citracal + D Maximum Caplet] 1 tab PO BID@0900,169911/16/21 [History] Clotrimazole [Lotrimin AF] 1 applic TOPICAL DAILY PRN 11/16/21 [History] Digoxin [Lanoxin] 125 mcg PO Q48H PRN 11/16/21 [History] Docusate [Colace] 100 mg PO BID@0900,169911/16/21 [History] Furosemide [Lasix] 40 mg PO BID@0900,17011/16/21 [History] Levothyroxine Sodium 150 mcg PO MOTUWETH@59911/16/21 [History] Levothyroxine Sodium [Synthroid] 137 mcg PO SUFRSA@59911/16/21 [History] Nitroglycerin Sl Tabs [Nitrostat] 0.4 mg SL Q5M PRN 11/16/21 [History] Potassium Chloride ER [K-Dur 10] 10 meq PO DAILY@119911/16/21 [History] metFORMIN HCL ER [Glucophage XR] 500 mg PO DAILY@169911/16/21 [History] Apixaban [Eliquis] 5 mg PO BID@0900,1700 #0 12/20/21 [Rx] HYDROcodone/APAP 7.5-325MG [[place] 7.5-325] 1 tab PO Q6HR PRN 3 Days #12 tab 12/20/21 [Rx] Acetaminophen [Tylenol] 650 mg PO Q4H PRN 01/09/22 [History] Adalimumab [Humira(Cf) Pen] 40 mg SQ WE 01/09/22 [History] Gabapentin 800 mg PO BID@0900,212901/09/22 [History] Insulin Glargine,Hum.rec.anlog [Lantus Solostar Pen] 15 units SQ HS@212901/09/22 [History] Mag Hydrox/Al Hydrox/Simeth [Maalox] 30 ml PO Q6H PRN 01/09/22 [History] Metoprolol Tartrate [Lopressor] 50 mg PO BID@0900,1700 01/09/22 [History] Sodium Chloride [Saline Mist] 1 spray EA NOSTRIL Q2H PRN 01/09/22 [History] Levofloxacin [Levaquin] 500 mg PO DAILY 5 Days #5 tab 01/10/22 [Rx] Follow up Appointment(s)/Referral(s): Kevin Welsh DO [STAFF PHYSICIAN] - 1-2 days Discharge Disposition: HOME SELF-CARE
[2022-01-10 20:18] VITALS: BP 126/62; PULSE 73; RESP 20
== END 2022-01-10 20:29 | disposition home or self-care (01) ==
LOC: EC 09:00 → 3SCARD 10:55 → INTOOBSV 10:55 → 3SCARD 16:07 → 5NMEDONC 01-10 16:52 → UNDODISIN 01-10 20:29
PROVIDERS: ADMIT Family Medicine; ATTEND Family Medicine
DX: N39.0 Urinary tract infection, site not specified (principal); E87.20 Acidosis, unspecified; R53.1 Weakness; D64.9 Anemia, unspecified; I48.21 Permanent atrial fibrillation; I11.0 Hypertensive heart disease with heart failure; I50.9 Heart failure, unspecified; E11.65 Type 2 diabetes mellitus with hyperglycemia; I25.10 Atherosclerotic heart disease of native coronary artery without angina pectoris; E78.5 Hyperlipidemia, unspecified; M06.9 Rheumatoid arthritis, unspecified; E66.01 Morbid (severe) obesity due to excess calories; E03.9 Hypothyroidism, unspecified; J44.9 Chronic obstructive pulmonary disease, unspecified; M51.36 Other intervertebral disc degeneration, lumbar region; M35.00 Sjogren syndrome, unspecified; Z79.4 Long term (current) use of insulin; Z79.899 Other long term (current) drug therapy; Z90.49 Acquired absence of other specified parts of digestive tract; Z79.84 Long term (current) use of oral hypoglycemic drugs; Z88.2 Allergy status to sulfonamides; Z85.820 Personal history of malignant melanoma of skin; Z98.42 Cataract extraction status, left eye; Z98.41 Cataract extraction status, right eye; Z96.1 Presence of intraocular lens; Z96.642 Presence of left artificial hip joint; Z87.891 Personal history of nicotine dependence; Z82.3 Family history of stroke; Z80.9 Family history of malignant neoplasm, unspecified; Z83.2 Family history of diseases of the blood and blood-forming organs and certain disorders involving the immune mechanism; Z20.822 Contact with and (suspected) exposure to COVID-19; Z68.32 Body mass index [BMI] 32.0-32.9, adult
CPT/HCPCS: 96361; 96365; 96366; 99285; 36415; 93005; 84439; 83880; 80053; 80048; 84443; 83605; 83735; 84100; 84484; 85025 ×2; 85610; 85730; 81001; 87086; 87077; 87186; 87502; 87635; 71046; G0378 ×2; J2543 ×2; J7512

== ENCOUNTER 2022-01-11 09:39 | Inpatient (IN) | payer MEDICARE ==
[2022-01-11 10:26] LABS: Basophils # (A) 0.1 k/uL (0-0.2); Basophils % (A) 1 %; Eosinophils # (A) 0.5 k/uL (0-0.7); Eosinophils % (A) 8 %; HCT 37.8 % (34.0-46.0); HGB 11.9 gm/dL (11.4-16.0); Hypochromasia Marked; Lymphocytes # (A) 1.7 k/uL (1.0-4.8); Lymphocytes % (A) 29 %; MCH 28.2 pg (25.0-35.0); MCHC 31.5 g/dL (31.0-37.0); MCV 89.6 fL (80.0-100.0); Mean Platelet Volume 7.8; Monocytes # (A) 0.4 k/uL (0-1.0); Monocytes % (A) 6 %; Neutrophils # (A) 3.2 k/uL (1.3-7.7); Neutrophils % (A) 54 %; Platelet Count 274 k/uL (150-450); RBC 4.21 m/uL (3.80-5.40); RDW 15.3 % (11.5-15.5); WBC 5.9 k/uL (3.8-10.6)
--- NOTE | 2022-01-11 10:34 | ED ---
Dizziness HPI - General Chief Complaint: Dizziness Stated Complaint: Dizziness Time Seen by Provider: 01/11/22 09:40 Source: patient, EMS, RN notes reviewed Mode of arrival: EMS Limitations: no limitations - History of Present Illness Initial Comments: This is a 81-year-old female who presents with complaints of lightheadedness and dizziness. She states she felt a swim. She got up urinated. He was just discharged yesterday from the hospital after she was diagnosed with a urinary tract infection. She was not able to get her Levaquin prescription filled as the pharmacy was closed. She also complains some lower abdominal discomfort. Additionally she does states she had recent gallbladder surgery and did have some discomfort inferior to the incision site on the right. She at this time denies any fevers or chills. MD Complaint: dizziness, lightheadedness - Related Data Home Medications Medication Instructions Recorded Confirmed Latanoprost [Xalatan 0.005%] 1 drop BOTH EYES HS 08/11/17 01/11/22 Insulin Lispro [humaLOG Kwikpen] See Protocol SQ AC-TID 09/25/18 01/11/22 Multivitamins, Thera [Multivitamin 1 tab PO DAILY@119911/19/18 01/11/22 (formulary)] predniSONE 5 mg PO DAILY@89907/23/21 01/11/22 Amiodarone HCl [Cordarone] 100 mg PO DAILY@89908/30/21 01/11/22 Dicyclomine [Bentyl] 10 mg PO Q8H PRN 08/30/21 01/11/22 Famotidine [Pepcid] 10 mg PO Q12H PRN 08/30/21 01/11/22 Insulin Glargine,Hum.rec.anlog 30 units SQ DAILY@79908/30/21 01/11/22 [Lantus Solostar Pen] Magnesium Oxide 400 mg PO DAILY@1200 08/30/21 01/11/22 Omeprazole 20 mg PO DAILY@89908/30/21 01/11/22 Oxybutynin Chloride [Oxybutynin 10 mg PO DAILY@89908/30/21 01/11/22 Chloride ER] Tamsulosin [Flomax] 0.4 mg PO DAILY@89908/30/21 01/11/22 methocarbamoL [Methocarbamol] 1,000 mg PO Q6H PRN 08/30/21 01/11/22 Calcium Citrate/Vitamin D3 1 tab PO BID@0900,169911/16/21 01/11/22 [Citracal + D Maximum Caplet] Clotrimazole [Lotrimin AF] 1 applic TOPICAL DAILY PRN 11/16/21 01/11/22 Digoxin [Lanoxin] 125 mcg PO Q48H PRN 11/16/21 01/11/22 Docusate [Colace] 100 mg PO BID@0900,169911/16/21 01/11/22 Furosemide [Lasix] 40 mg PO BID@0900,169911/16/21 01/11/22 Levothyroxine Sodium 150 mcg PO MOTUWETH@59911/16/21 01/11/22 Levothyroxine Sodium [Synthroid] 137 mcg PO SUFRSA@59911/16/21 01/11/22 Nitroglycerin Sl Tabs [Nitrostat] 0.4 mg SL Q5M PRN 11/16/21 01/11/22 Potassium Chloride ER [K-Dur 10] 10 meq PO DAILY@1200 11/16/21 01/11/22 metFORMIN HCL ER [Glucophage XR] 500 mg PO DAILY@169911/16/21 01/11/22 Acetaminophen [Tylenol] 650 mg PO Q4H PRN 01/09/22 01/11/22 Adalimumab [Humira(Cf) Pen] 40 mg SQ WE 01/09/22 01/11/22 Gabapentin 800 mg PO BID@0900,212901/09/22 01/11/22 Insulin Glargine,Hum.rec.anlog 15 units SQ HS@212901/09/22 01/11/22 [Lantus Solostar Pen] Mag Hydrox/Al Hydrox/Simeth 30 ml PO Q6H PRN 01/09/22 01/11/22 [Maalox] Metoprolol Tartrate [Lopressor] 50 mg PO BID@0900,0 01/09/22 01/11/22 Sodium Chloride [Saline Mist] 1 spray EA NOSTRIL Q2H PRN 01/09/22 01/11/22 Levofloxacin [Levaquin] 500 mg PO DIRECTED 01/11/22 01/11/22 Previous Rx's Medication Instructions Recorded polyethylene glycoL 3350 [Miralax] 17 gm PO DAILY packet 09/06/21 Apixaban [Eliquis] 5 mg PO BID@0900,1700 #0 12/20/21 HYDROcodone/APAP 7.5-325MG [[place] 1 tab PO Q6HR PRN 3 Days #12 tab 12/20/21 7.5-325] Allergies Allergy/AdvReac Type Severity Reaction Status Date / Time adhesive Allergy Rash/Hives Verified 01/11/22 11:11 cephalexin [From Keflex] Allergy Rash/Hives Verified 01/11/22 11:11 grass pollen Allergy Unknown Verified 01/11/22 11:11 mold Allergy Unknown Verified 01/11/22 11:11 Sulfa (Sulfonamide Allergy Rash/Hives Verified 01/11/22 11:11 Antibiotics) newspaper ink Allergy Mild Unknown Uncoded 01/11/22 11:11 Review of Systems ROS Statement: Those systems with pertinent positive or pertinent negative responses have been documented in the HPI. ROS Other: All systems not noted in ROS Statement are negative. Past Medical History Past Medical History: Atrial Fibrillation, Coronary Artery Disease (CAD), Cancer, Diabetes Mellitus, Hyperlipidemia, Hypertension, Musculoskeletal Disorder, Neurologic Disorder, Osteoarthritis (OA), Pneumonia, Renal Disease, Rheumatoid Arthritis (RA), Skin Disorder, Thyroid Disorder Additional Past Medical History / Comment(s): Morbid obesity, chronic atrial fibrillation, diabetes mellitus type 2, hypertension, hyperlipidemia, spinal stenosis, osteoarthritis, hypothyroidism, hypertension, history of skin melanoma, history of bursitis with MRSA post I&D, rheumatoid arthritis, Sjogren's disease, 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 without any indication of ILD related to RA, Fall on July 22 transfer to [facility] for MRI, then Fall on 11/16/21 History of Any Multi-Drug Resistant Organisms: MRSA Date of last positivie culture/infection: 02/27/14 MDRO Source:: Sputum Past Surgical History: Back Surgery, Breast Surgery, Heart Catheterization, Joint Replacement, Orthopedic Surgery Additional Past Surgical History / Comment(s): Bilateral cataracts with lens implants, arthroscopies to lt wrist, gualberto knees, gualberto ankles, gualberto hips, lt hip replacment and redone, L/R shoulder sxs, rt breast bx-benign, egd/colonoscopy, skin cancer removal L arm, Lumbar fixnation possible broken Past Anesthesia/Blood Transfusion Reactions: No Reported Reaction Additional Past Anesthesia/Blood Transfusion Reaction / Comment(s): Pt has been told not to have anesthesia metabolized by the kidneys and has neurologic Sjogren's with post anesthesia paralysis. Past Psychological History: No Psychological Hx Reported Smoking Status: Former smoker Past Alcohol Use History: None Reported Past Drug Use History: None Reported - Past Family History Mother Family Medical History: CVA/TIA Additional Family Medical History / Comment(s): RUPTURED BOWEL Father Family Medical History: Cancer, Pneumonia Additional Family Medical History / Comment(s): ASPIRATIVE PNA Sister(s) Additional Family Medical History / Comment(s): at age 34 with lupus General Exam - General Exam Comments Initial Comments: This is a well-developed molars awake alert oriented 4 female Limitations: no limitations General appearance: alert, in no apparent distress Head exam: Present: atraumatic, normocephalic, normal inspection Eye exam: Present: normal appearance, PERRL, EOMI. Absent: scleral icterus, conjunctival injection, periorbital swelling ENT exam: Present: mucous membranes dry Neck exam: Present: normal inspection. Absent: tenderness, meningismus, lymphadenopathy Respiratory exam: Present: normal lung sounds bilaterally. Absent: respiratory distress, wheezes, rales, rhonchi, stridor Cardiovascular Exam: Present: regular rate, normal rhythm, normal heart sounds. Absent: systolic murmur, diastolic murmur, rubs, gallop, clicks GI/Abdominal exam: Present: soft, normal bowel sounds, other (CMH to the abdomen demonstrates postcholecystectomy surgical incisions healing at the port sites a small area of dehiscence seen of the right upper quadrant incision with serous drainage no infectious process identified.). Absent: distended, tenderness, guarding, rebound, rigid Extremities exam: Present: normal inspection, full ROM, normal capillary refill. Absent: tenderness, pedal edema, joint swelling, calf tenderness Back exam: Present: normal inspection Neurological exam: Present: alert, oriented X3, CN II-XII intact Psychiatric exam: Present: normal affect, normal mood Skin exam: Present: warm, dry, intact, normal color. Absent: rash Course Vital Signs 01/11/22 09:48 Temperature 97.9 F Pulse Rate 87 Respiratory 18 Rate Blood Pressure 128/66 O2 Sat by Pulse 94 L Oximetry Medical Decision Making - Medical Decision Making Did discuss findings with the patient and family as well as with Dr. Hart the patient be admitted for IV hydration IV magnesium and IV antibiotics. I did examine the patient's right upper quadrant surgical region status post cholecy stectomy. There is a mild amount of wound dehiscence that appears to be healing by secondary intent some serous type fluid emanating from it no evidence of any infectious process at this time. - Lab Data Result diagrams: 01/11/22 09:59 01/11/22 09:59 Lab Results 01/11/22 01/11/22 01/11/22 Range/Units 09:59 09:59 09:59 WBC 5.9 (3.8-10.6) k/uL RBC 4.21 (3.80-5.40) m/uL Hgb 11.9 (11.4-16.0) gm/dL Hct 37.8 (34.0-46.0) % MCV 89.6 (80.0-100.0) fL MCH 28.2 (25.0-35.0) pg MCHC 31.5 (31.0-37.0) g/dL RDW 15.3 (11.5-15.5) % Plt Count 274 (150-450) k/uL MPV 7.8 Neutrophils % 54 % Lymphocytes % 29 % Monocytes % 6 % Eosinophils % 8 % Basophils % 1 % Neutrophils # 3.2 (1.3-7.7) k/uL Lymphocytes # 1.7 (1.0-4.8) k/uL Monocytes # 0.4 (0-1.0) k/uL Eosinophils # 0.5 (0-0.7) k/uL Basophils # 0.1 (0-0.2) k/uL Hypochromasia Marked Sodium 139 (137-145) mmol/L Potassium 3.9 (3.5-5.1) mmol/L Chloride 97 L (98-107) mmol/L Carbon Dioxide 34 H (22-30) mmol/L Anion Gap 8 mmol/L BUN 10 (7-17) mg/dL Creatinine 0.71 (0.52-1.04) mg/dL Est GFR (CKD-EPI)AfAm >90 (>60 ml/min/1.73 sqM) Est GFR (CKD-EPI)NonAf 81 (>60 ml/min/1.73 sqM) Glucose 250 H (74-99) mg/dL Plasma Lactic Acid Cj (0.7-2.0) mmol/L Calcium 8.6 (8.4-10.2) mg/dL Magnesium 1.4 L (1.6-2.3) mg/dL Total Bilirubin 0.9 (0.2-1.3) mg/dL AST 55 H (14-36) U/L ALT 29 (4-34) U/L Alkaline Phosphatase 137 H (38-126) U/L Creatine Kinase 33 (30-135) U/L Troponin I (0.000-0.034) ng/mL Total Protein 7.8 (6.3-8.2) g/dL Albumin 3.9 (3.5-5.0) g/dL Lipase 32 (23-300) U/L Urine Color Yellow Urine Appearance Cloudy H (Clear) Urine pH 7.0 (5.0-8.0) Ur Specific [place] 1.016 (1.001-1.035) Urine Protein 1+ H (Negative) Urine Glucose (UA) 1+ H (Negative) Urine Ketones Negative (Negative) Urine Blood Negative (Negative) Urine Nitrite Negative (Negative) Urine Bilirubin Negative (Negative) Urine Urobilinogen <2.0 (<2.0) mg/dL Ur Leukocyte Esterase Moderate H (Negative) Urine RBC 2 (0-5) /hpf Urine WBC 65 H (0-5) /hpf Ur Squamous Epith Cells 3 (0-4) /hpf Urine Bacteria Rare H (None) /hpf Urine Mucus Rare H (None) /hpf 01/11/22 01/11/22 Range/Units 09:59 09:59 WBC (3.8-10.6) k/uL RBC (3.80-5.40) m/uL Hgb (11.4-16.0) gm/dL Hct (34.0-46.0) % MCV (80.0-100.0) fL MCH (25.0-35.0) pg MCHC (31.0-37.0) g/dL RDW (11.5-15.5) % Plt Count (150-450) k/uL MPV Neutrophils % % Lymphocytes % % Monocytes % % Eosinophils % % Basophils % % Neutrophils # (1.3-7.7) k/uL Lymphocytes # (1.0-4.8) k/uL Monocytes # (0-1.0) k/uL Eosinophils # (0-0.7) k/uL Basophils # (0-0.2) k/uL Hypochromasia Sodium (137-145) mmol/L Potassium (3.5-5.1) mmol/L Chloride (98-107) mmol/L Carbon Dioxide (22-30) mmol/L Anion Gap mmol/L BUN (7-17) mg/dL Creatinine (0.52-1.04) mg/dL Est GFR (CKD-EPI)AfAm (>60 ml/min/1.73 sqM) Est GFR (CKD-EPI)NonAf (>60 ml/min/1.73 sqM) Glucose (74-99) mg/dL Plasma Lactic Acid Cj 2.6 H* (0.7-2.0) mmol/L Calcium (8.4-10.2) mg/dL Magnesium (1.6-2.3) mg/dL Total Bilirubin (0.2-1.3) mg/dL AST (14-36) U/L ALT (4-34) U/L Alkaline Phosphatase (38-126) U/L Creatine Kinase (30-135) U/L Troponin I <0.012 (0.000-0.034) ng/mL Total Protein (6.3-8.2) g/dL Albumin (3.5-5.0) g/dL Lipase (23-300) U/L Urine Color Urine Appearance (Clear) Urine pH (5.0-8.0) Ur Specific [place] (1.001-1.035) Urine Protein (Negative) Urine Glucose (UA) (Negative) Urine Ketones (Negative) Urine Blood (Negative) Urine Nitrite (Negative) Urine Bilirubin (Negative) Urine Urobilinogen (<2.0) mg/dL Ur Leukocyte Esterase (Negative) Urine RBC (0-5) /hpf Urine WBC (0-5) /hpf Ur Squamous Epith Cells (0-4) /hpf Urine Bacteria (None) /hpf Urine Mucus (None) /hpf - EKG Data -: EKG Interpreted by Me EKG Comments: EKG reviewed by me shows atrial fibrillation rate of 91 QRS 160 QT since QTC 424/473 or Right axis deviation, evidence of interventricular conduction delay, marked amount of artifact is present. - Radiology Data Radiology results: image reviewed (I did review the imaging no acute processes are identified at this time.) Disposition Clinical Impression: Weakness, Urinary tract infection, Hypomagnesemia, Dehydration Disposition: ADMITTED IP TO THIS [facility] Condition: Fair Referrals: Nicholas Hart MD [Primary Care Provider] - 1-2 days Decision Date: 01/11/22 Decision Time: 12:00
[2022-01-11 10:36] LABS: ALT 29 U/L (4-34); AST 55 U/L (14-36); African American GFR (CKD) >90 (>60 ml/min/1.73 sqM); Albumin 3.9 g/dL (3.5-5.0); Alkaline Phosphatase 137 U/L (38-126); Anion Gap 8 mmol/L; Blood Urea Nitrogen 10 mg/dL (7-17); Calcium 8.6 mg/dL (8.4-10.2); Carbon Dioxide 34 mmol/L (22-30); Creatine Kinase 33 U/L (30-135); Glucose 250 mg/dL (74-99); Lipase 32 U/L (23-300); Magnesium 1.4 mg/dL (1.6-2.3); Non-African American GFR(CKD) 81 (>60 ml/min/1.73 sqM); Potassium 3.9 mmol/L (3.5-5.1); Sodium 139 mmol/L (137-145); Total Bilirubin 0.9 mg/dL (0.2-1.3); Total Protein 7.8 g/dL (6.3-8.2)
--- NOTE | 2022-01-11 10:44 | XR ---
EXAMINATION TYPE: XR chest 2V DATE OF EXAM: 01/11/2022 COMPARISON: Chest x-ray 2 days ago HISTORY: Dizziness. TECHNIQUE: Frontal and lateral views of the chest are obtained. FINDINGS: Stable mild cardiomegaly. No pleural effusion or pneumothorax is evident. Perhaps mild ce ntral vascular congestion is stable. No new focal airspace opacity. Surgical change of cervical spine is partially imaged. Chronic widening of the right acromioclavicular joint redemonstrated. IMPRESSION: Mild cardiomegaly with perhaps mild central vascular congestion. No significant change f rom 2 days earlier.
--- NOTE | 2022-01-11 10:46 | XR ---
EXAMINATION TYPE: XR KUB DATE OF EXAM: 01/11/2022 10:36 AM CLINICAL HISTORY: Dizziness. Weakness. TECHNIQUE: 4 supine KUB images of the abdomen are obtained obtained. COMPARISON: CT abdomen and pelvis December 15, 2021 FINDINGS: Exam suboptimal secondary to patient's large body habitus. Scattered gas seen in nondistend ed small bowel loops. Gas seen in nondistended stomach in the epigastric region. Gas seen in nondiste nded colon along the periphery. Elevated right hemidiaphragm redemonstrated. Dense Mitral annular fran cifications again seen. Surgical change to the lumbar spine into the upper sacrum redemonstrated with slight scoliotic curvature. Surgical change to the left hip again seen. Advanced degenerative change right hip redemonstrated. IMPRESSION: Overall nonobstructive bowel gas pattern redemonstrated.
[2022-01-11 10:53] LABS: Chloride 97 mmol/L (98-107)
[2022-01-11] MEDS: MAGNESIUM SULFATE-D5W PMX 1 GM in DEXTROSE/WATER 1 100ML.BAG IVPB SCH ×2 (11:53→12:47)
[2022-01-11 11:58] LABS: Appearance,Urine Cloudy (Clear); Bacteria,Urine Rare /hpf; Bilirubin,Urine Negative (Negative); Blood,Urine Negative (Negative); Color,Urine Yellow; Glucose,Urine (UA) 1+ (Negative); Ketones,Urine Negative (Negative); Leukocyte Esterase,Urine Moderate (Negative); Mucus,Urine Rare /hpf; Nitrite,Urine Negative (Negative); Protein,Urine 1+ (Negative); RBC,Urine 2 /hpf (0-5); Specific Gravity,Urine 1.016 (1.001-1.035); Squamous Epithelial Cell,Urine 3 /hpf (0-4); Urobilinogen,Urine <2.0 mg/dL (<2.0); WBC,Urine 65 /hpf (0-5)
[2022-01-11] MEDS ORDERED: ACETAMINOPHEN TAB 325 MG TAB PO PRN (12:48)
[2022-01-11] MEDS ORDERED: NALOXONE 0.4 MG/ML 1 ML VIAL IV PRN (12:48)
[2022-01-11] MEDS ORDERED: ONDANSETRON 4 MG/2 ML VIAL IVP PRN (12:48)
[2022-01-11] MEDS ORDERED: LEVOFLOXACIN 500MG-D5W PMX 500 MG in DEXTROSE/WATER 1 100ML.BAG IVPB STA (12:53)
[2022-01-11] MEDS ORDERED: MAG HYDROX/AL HYDROX/SIMETH 30 ML CUP PO PRN (12:54)
[2022-01-11] MEDS ORDERED: NITROGLYCERIN SL TABS 0.4 MG TAB SUBLINGUAL PRN (12:54)
[2022-01-11] MEDS ORDERED: methocarbamoL 500 MG TAB PO PRN (12:54)
[2022-01-11] MEDS ORDERED: FAMOTIDINE 20 MG TAB PO PRN (12:54)
[2022-01-11] MEDS ORDERED: DICYCLOMINE 10 MG CAP PO PRN (12:54)
[2022-01-11] MEDS: SODIUM CHLORIDE 0.9% 1,000 ML IV SCH (13:10)
[2022-01-11 17:19] LABS: Glucose,Whole Blood 318 mg/dL (70-110)
[2022-01-11] MEDS ORDERED: ASPIRIN 81 MG PO STA (17:33)
[2022-01-11] MEDS: CALCIUM CARB-VIT D 500 MG-5 MCG TAB PO SCH (17:47)
[2022-01-11] MEDS: METOPROLOL TARTRATE 50 MG TAB PO SCH (17:47)
[2022-01-11] MEDS: FUROSEMIDE 40 MG TAB PO SCH (17:47)
[2022-01-11] MEDS: DOCUSATE 100 MG CAP PO SCH (17:47)
[2022-01-11] MEDS: APIXABAN 5 MG TAB PO SCH (17:48)
[2022-01-11] MEDS: metFORMIN 500 MG TAB PO SCH (17:48)
[2022-01-11] MEDS: HYDROcodone/APAP 7.5-325MG 1 EACH TAB PO PRN (18:50)
[2022-01-11 20:39] LABS: Glucose,Whole Blood 260 mg/dL (70-110)
[2022-01-11] MEDS: GABAPENTIN 400 MG CAP PO SCH (21:26)
[2022-01-11] MEDS: INSULIN DETEMIR (LEVEMIR) 100 UNIT/ML SYR SQ SCH (21:26)
[2022-01-11] MEDS: LATANOPROST 0.005% OPHTH DROPS 2.5 ML BTL BOTH EYES SCH (21:33)
[2022-01-12] MEDS: SODIUM CHLORIDE 0.9% 1,000 ML IV SCH ×4 (01:04→21:15)
[2022-01-12] MEDS: LEVOTHYROXINE 75 MCG TAB PO SCH (05:34)
[2022-01-12] MEDS: HYDROcodone/APAP 7.5-325MG 1 EACH TAB PO PRN ×3 (05:34→21:20)
[2022-01-12 07:18] LABS: Glucose,Whole Blood 216 mg/dL (70-110)
[2022-01-12] MEDS ORDERED: DEXTROSE 50% SYRINGE 50 ML IVP PRN ×2 (08:21)
--- NOTE | 2022-01-12 08:25 | P.HPIM ---
History of Present Illness H&P Date: 01/12/22 Chief Complaint: Dizziness This is a history and physical an 81-year-old white female with history of atrial fibrillation COPD significant DJD of the spine with mobility issues. The patient was discharged after having chest pain 2 days ago but was readmitted yesterday after having significant dizziness. She had EKG changes supposedly last night but troponin has been unchanged. She is now admitted for dehydration and element of hypomagnesemia. No fever or chills. She seems much more stable today from a cognitive perspective physical therapy is not consulted. Review of Systems Constitutional: Denies chills, Denies fever Eyes: denies blurred vision, denies pain Ears, nose, mouth and throat: Denies headache, Denies sore throat Cardiovascular: Denies chest pain, Denies shortness of breath Respiratory: Denies cough Genitourinary: Reports as per HPI Past Medical History Past Medical History: Atrial Fibrillation, Coronary Artery Disease (CAD), Cancer, Diabetes Mellitus, Hyperlipidemia, Hypertension, Musculoskeletal Disorder, Neurologic Disorder, Osteoarthritis (OA), Pneumonia, Renal Disease, Rheumatoid Arthritis (RA), Skin Disorder, Thyroid Disorder Additional Past Medical History / Comment(s): Morbid obesity, chronic atrial fib rillation, diabetes mellitus type 2, hypertension, hyperlipidemia, spinal stenosis, osteoarthritis, hypothyroidism, hypertension, history of skin melanoma, history of bursitis with MRSA post I&D, rheumatoid arthritis, Sjogren's disease, 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 without any indication of ILD related to RA, Fall on July 22 transfer to [facility] for MRI, then Fall on 11/16/21 History of Any Multi-Drug Resistant Organisms: MRSA Date of last positivie culture/infection: 02/27/14 MDRO Source:: Sputum Past Surgical History: Back Surgery, Breast Surgery, Cholecystectomy, Heart Catheterization, Joint Replacement, Orthopedic Surgery Additional Past Surgical History / Comment(s): Bilateral cataracts with lens implants, arthroscopies to lt wrist, gualberto knees, gualberto ankles, gualberto hips, lt hip replacment and redone, L/R shoulder sxs, rt breast bx-benign, egd/colonoscopy, skin cancer removal L arm, Lumbar fixnation possible broken Past Anesthesia/Blood Transfusion Reactions: No Reported Reaction Additional Past Anesthesia/Blood Transfusion Reaction / Comment(s): Pt has been told not to have anesthesia metabolized by the kidneys and has neurologic Sjogren's with post anesthesia paralysis. Past Psychological History: No Psychological Hx Reported Smoking Status: Former smoker Past Alcohol Use History: None Reported Additional Past Alcohol Use History / Comment(s): Pt started smoking in 3 and quit in 1969 Past Drug Use History: None Reported - Past Family History Mother Family Medical History: CVA/TIA Additional Family Medical History / Comment(s): RUPTURED BOWEL Father Family Medical History: Cancer, Pneumonia Additional Family Medical History / Comment(s): ASPIRATIVE PNA Sister(s) Additional Family Medical History / Comment(s): at age 34 with lupus Medications and Allergies Home Medications Medication Instructions Recorded Confirmed Type Latanoprost [Xalatan 0.005%] 1 drop BOTH EYES HS 08/11/17 01/11/22 History Insulin Lispro [humaLOG Kwikpen] See Protocol SQ AC-TID 09/25/18 01/11/22 History Multivitamins, Thera [Multivitamin 1 tab PO DAILY@119911/19/18 01/11/22 History (formulary)] predniSONE 5 mg PO DAILY@89907/23/21 01/11/22 History Amiodarone HCl [Cordarone] 100 mg PO DAILY@89908/30/21 01/11/22 History Dicyclomine [Bentyl] 10 mg PO Q8H PRN 08/30/21 01/11/22 History Famotidine [Pepcid] 10 mg PO Q12H PRN 08/30/21 01/11/22 History Insulin Glargine,Hum.rec.anlog 30 units SQ DAILY@0808/30/21 01/11/22 History [Lantus Solostar Pen] Magnesium Oxide 400 mg PO DAILY@1200 08/30/21 01/11/22 History Omeprazole 20 mg PO DAILY@89908/30/21 01/11/22 History Oxybutynin Chloride [Oxybutynin 10 mg PO DAILY@89908/30/21 01/11/22 History Chloride ER] Tamsulosin [Flomax] 0.4 mg PO DAILY@89908/30/21 01/11/22 History methocarbamoL [Methocarbamol] 1,000 mg PO Q6H PRN 08/30/21 01/11/22 History polyethylene glycoL 3350 [Miralax] 17 gm PO DAILY packet 09/06/21 01/11/22 Rx Calcium Citrate/Vitamin D3 1 tab PO BID@0900,1700 11/16/21 01/11/22 History [Citracal + D Maximum Caplet] Clotrimazole [Lotrimin AF] 1 applic TOPICAL DAILY PRN 11/16/21 01/11/22 History Digoxin [Lanoxin] 125 mcg PO Q48H PRN 11/16/21 01/11/22 History Docusate [Colace] 100 mg PO BID@0900,17011/16/21 01/11/22 History Furosemide [Lasix] 40 mg PO BID@0900,1700 11/16/21 01/11/22 History Levothyroxine Sodium 150 mcg PO MOTUWETH@0600 11/16/21 01/11/22 History Levothyroxine Sodium [Synthroid] 137 mcg PO SUFRSA@0600 11/16/21 01/11/22 History Nitroglycerin Sl Tabs [Nitrostat] 0.4 mg SL Q5M PRN 11/16/21 01/11/22 History Potassium Chloride ER [K-Dur 10] 10 meq PO DAILY@1200 11/16/21 01/11/22 History metFORMIN HCL ER [Glucophage XR] 500 mg PO DAILY@1700 11/16/21 01/11/22 History Apixaban [Eliquis] 5 mg PO BID@0900,1700 #0 12/20/21 01/11/22 Rx HYDROcodone/APAP 7.5-325MG [[place] 1 tab PO Q6HR PRN 3 Days #12 tab 12/20/21 01/11/22 Rx 7.5-325] Acetaminophen [Tylenol] 650 mg PO Q4H PRN 01/09/22 01/11/22 History Adalimumab [Humira(Cf) Pen] 40 mg SQ WE 01/09/22 01/11/22 History Gabapentin 800 mg PO BID@0900,212901/09/22 01/11/22 History Insulin Glargine,Hum.rec.anlog 15 units SQ HS@212901/09/22 01/11/22 History [Lantus Solostar Pen] Mag Hydrox/Al Hydrox/Simeth 30 ml PO Q6H PRN 01/09/22 01/11/22 History [Maalox] Metoprolol Tartrate [Lopressor] 50 mg PO BID@0900,1700 01/09/22 01/11/22 History Sodium Chloride [Saline Mist] 1 spray EA NOSTRIL Q2H PRN 01/09/22 01/11/22 History Levofloxacin [Levaquin] 500 mg PO DIRECTED 01/11/22 01/11/22 History Allergies Allergy/AdvReac Type Severity Reaction Status Date / Time adhesive Allergy Rash/Hives Verified 01/11/22 11:11 cephalexin [From Keflex] Allergy Rash/Hives Verified 01/11/22 11:11 grass pollen Allergy Unknown Verified 01/11/22 11:11 mold Allergy Unknown Verified 01/11/22 11:11 Sulfa (Sulfonamide Allergy Rash/Hives Verified 01/11/22 11:11 Antibiotics) newspaper ink Allergy Mild Unknown Uncoded 01/11/22 11:11 Physical Exam Vitals: Vital Signs Temp Pulse Pulse Resp BP BP Pulse Ox 01/12/22 05:11 97.5 F L 71 16 164/71 99 01/11/22 20:05 98 F 68 16 119/58 96 01/11/22 16:33 98.2 F 88 16 156/67 93 L 01/11/22 13:49 98.1 F 76 15 135/65 93 L 01/11/22 13:00 70 16 128/64 100 01/11/22 12:30 81 16 123/99 100 01/11/22 12:00 86 16 98 01/11/22 11:30 79 18 135/63 98 01/11/22 11:00 71 16 99 01/11/22 10:30 72 16 137/63 99 01/11/22 10:01 75 16 128/66 97 01/11/22 09:48 97.9 F 87 18 128/66 94 L Intake and Output 01/11/22 01/12/22 01/12/22 22:59 06:59 14:59 Other: # Voids 2 Weight 118.388 kg - Constitutional General appearance: obese - EENT Eyes: EOMI - Neck Neck: no lymphadenopathy - Respiratory Respiratory: bilateral: diminished - Cardiovascular Rhythm: irregularly irregular Heart sounds: normal: S1, S2 Abnormal Heart Sounds: no S3 Gallop - Gastrointestinal General gastrointestinal: soft, no tenderness - Psychiatric Psychiatric: A&O x's 3 Results CBC & Chem 7: 01/11/22 09:59 01/11/22 09:59 Labs: Abnormal Lab Results - Last 24 Hours (Table) 01/11/22 01/11/22 01/11/22 Range/Units 09:59 09:59 09:59 Chloride 97 L (98-107) mmol/L Carbon Dioxide 34 H (22-30) mmol/L Glucose 250 H (74-99) mg/dL POC Glucose (mg/dL) (70-110) mg/dL Plasma Lactic Acid Cj 2.6 H* (0.7-2.0) mmol/L Magnesium 1.4 L (1.6-2.3) mg/dL AST 55 H (14-36) U/L Alkaline Phosphatase 137 H (38-126) U/L Urine Appearance Cloudy H (Clear) Urine Protein 1+ H (Negative) Urine Glucose (UA) 1+ H (Negative) Ur Leukocyte Esterase Moderate H (Negative) Urine WBC 65 H (0-5) /hpf Urine Bacteria Rare H (None) /hpf Urine Mucus Rare H (None) /hpf 01/11/22 01/11/22 01/12/22 Range/Units 17:17 20:37 07:16 Chloride (98-107) mmol/L Carbon Dioxide (22-30) mmol/L Glucose (74-99) mg/dL POC Glucose (mg/dL) 318 H 260 H 216 H (70-110) mg/dL Plasma Lactic Acid Cj (0.7-2.0) mmol/L Magnesium (1.6-2.3) mg/dL AST (14-36) U/L Alkaline Phosphatase (38-126) U/L Urine Appearance (Clear) Urine Protein (Negative) Urine Glucose (UA) (Negative) Ur Leukocyte Esterase (Negative) Urine WBC (0-5) /hpf Urine Bacteria (None) /hpf Urine Mucus (None) /hpf Microbiology - Last 24 Hours (Table) 01/11/22 09:59 Urine Culture - Preliminary Urine,Catheterized Thrombosis Risk Factor Assmnt - Choose All That Apply Any of the Below Risk Factors Present?: Yes Each Factor Represents 1 point: History of prior major surgery (<1month), Obesity (BMI >25) Other Risk Factors: Yes Each Risk Factor Represents 2 Points: Malignancy Each Risk Factor Represents 3 Points: Age 75 years or older Thrombosis Risk Factor Assessment Total Risk Factor Score: 7 Thrombosis Risk Factor Assessment Level: High Risk Assessment and Plan (1) Dehydration Current Visit: Yes Status: Acute Code(s): E86.0 - DEHYDRATION SNOMED Code(s): 04196293 (2) Generalized weakness Current Visit: Yes Status: Acute Code(s): R53.1 - WEAKNESS SNOMED Code(s): 51346363 (3) Hypomagnesemia Current Visit: Yes Status: Acute Code(s): E83.42 - HYPOMAGNESEMIA SNOMED Code(s): 331388608 (4) UTI (urinary tract infection) Current Visit: Yes Status: Acute Code(s): N39.0 - URINARY TRACT INFECTION, SITE NOT SPECIFIED SNOMED Code(s): 05846998 (5) Acute electrocardiogram changes Current Visit: No Status: Acute Code(s): R94.31 - ABNORMAL ELECTROCARDIOGRAM [ECG] [EKG] SNOMED Code(s): 606437691 (6) Atrial fibrillation Current Visit: No Status: Acute Code(s): I48.91 - UNSPECIFIED ATRIAL FIBRILLATION SNOMED Code(s): 81051832 (7) Diabetes Current Visit: No Status: Acute Code(s): E11.9 - TYPE 2 DIABETES MELLITUS WITHOUT COMPLICATIONS SNOMED Code(s): 26716577 (8) History of lumbar fusion Current Visit: No Status: Acute Code(s): Z98.1 - ARTHRODESIS STATUS SNOMED Code(s): 49693276378309 (9) History of total left hip arthroplasty Current Visit: No Status: Acute Code(s): Z96.642 - PRESENCE OF LEFT ARTIFICIAL HIP JOINT SNOMED Code(s): 200321720947 (10) Hyperlipidemia Current Visit: No Status: Acute Code(s): E78.5 - HYPERLIPIDEMIA, UNSPECIFIED SNOMED Code(s): 49211459 (11) Hypertension Current Visit: No Status: Acute Code(s): I10 - ESSENTIAL (PRIMARY) HYPERTENSION SNOMED Code(s): 64273638 (12) Inability to perform activities of daily living Current Visit: No Status: Acute Code(s): Z78.9 - OTHER SPECIFIED HEALTH STATUS SNOMED Code(s): 303227177 (13) Increased weakness when ambulating Current Visit: No Status: Acute Code(s): R53.1 - WEAKNESS SNOMED Code(s): 331481515 (14) Low back pain Current Visit: No Status: Acute Code(s): M54.50 - LOW BACK PAIN, UNSPECIFIED SNOMED Code(s): 254033573 Plan: Increase ambulation. Continue IV hydration. Check CBC CMP and magnesium in a.m. Appreciate cardiology input. Anticipate discharge in next 24 hours
[2022-01-12] MEDS ORDERED: ADALIMUMAB 40 MG/0.4 ML SQ SCH (08:30)
[2022-01-12] MEDS: INSULIN DETEMIR (LEVEMIR) 100 UNIT/ML SYR SQ SCH ×2 (08:55→20:55)
[2022-01-12] MEDS ORDERED: PANTOPRAZOLE 40 MG/10 ML VIAL IV SCH (09:00)
[2022-01-12] MEDS ORDERED: NON FORMULARY DRUG (Omeprazole [Omeprazole] 20 MG Capsule.Dr) PO SCH (09:00)
[2022-01-12] MEDS ORDERED: DIGOXIN 125 MCG TAB PO PRN (09:00)
[2022-01-12] MEDS: polyethylene glycoL 3350 17 GM POWD.PACK PO SCH (09:42)
[2022-01-12] MEDS: metFORMIN 500 MG TAB PO SCH ×2 (09:42→17:07)
[2022-01-12] MEDS: MULTIVITAMINS, THERA 1 EACH TAB PO SCH (09:42)
[2022-01-12] MEDS: GABAPENTIN 400 MG CAP PO SCH ×2 (09:42→20:53)
[2022-01-12] MEDS: MAGNESIUM OXIDE 400 MG TAB PO SCH (09:43)
[2022-01-12] MEDS: APIXABAN 5 MG TAB PO SCH ×2 (09:43→17:07)
[2022-01-12] MEDS: CALCIUM CARB-VIT D 500 MG-5 MCG TAB PO SCH ×2 (09:43→17:07)
[2022-01-12] MEDS: TAMSULOSIN 0.4 MG CAP.ER.24H PO SCH (09:43)
[2022-01-12] MEDS: METOPROLOL TARTRATE 50 MG TAB PO SCH ×2 (09:43→17:08)
[2022-01-12] MEDS: DOCUSATE 100 MG CAP PO SCH ×2 (09:43→17:07)
[2022-01-12] MEDS: FUROSEMIDE 40 MG TAB PO SCH ×2 (09:43→17:07)
[2022-01-12] MEDS: AMIODARONE 100 MG TAB PO SCH (09:44)
[2022-01-12] MEDS: predniSONE 5 MG TAB PO SCH (09:44)
[2022-01-12] MEDS: OXYBUTYNIN 10 MG TAB.ER.24 PO SCH (09:44)
[2022-01-12] MEDS: LEVOFLOXACIN 500 MG TAB PO SCH (10:59)
[2022-01-12 11:16] LABS: Glucose,Whole Blood 290 mg/dL (70-110)
--- NOTE | 2022-01-12 11:52 | P.CRDCN ---
History of Present Illness Consult date: 01/12/22 Requesting physician: Nicholas Hart Reason for Consult (text): chest pain/EKG change Chief complaint: weakness History of present illness: Is a pleasant 81-year-old female patient who follows with Dr. Gaytan in the office. She has a past medical history significant for CAD with intermediate disease involving the mid left circumflex on heart cath from 2018, permanent atrial fibrillation, hypertension and dyslipidemia as well as chronin heart failure with preserved ejection fraction. Was recently discharged home from the hospital at which time she was admitted with UTI. Apparently after going home she was significantly weak and overall did not feel well. There is question of some chest discomfort the patient's description is quite vague, does not appear to be related to activity. EKG showed atrial fibrillation and although there was mention of EKG changes EKG done on admission had a very poor baseline. Troponins have been negative 3. CBC is within normal limits. Other laboratory values show sodium 139, potassium 3.9, BUN 10 and creatinine 0.71. Upon examination the patient is resting comfortably in bed. She is continues to feel quite weak. She mentions some discomfort in the chest but is not sure when it started or how long it lasted. Not related to activity. Denies complaints of shortness of breath. Has no edema, orthopnea or PND. Past Medical History Past Medical History: Atrial Fibrillation, Coronary Artery Disease (CAD), Cancer, Diabetes Mellitus, Hyperlipidemia, Hypertension, Musculoskeletal Disorder, Neurologic Disorder, Osteoarthritis (OA), Pneumonia, Renal Disease, Rheumatoid Arthritis (RA), Skin Disorder, Thyroid Disorder Additional Past Medical History / Comment(s): Morbid obesity, chronic atrial fibrillation, diabetes mellitus type 2, hypertension, hyperlipidemia, spinal stenosis, osteoarthritis, hypothyroidism, hypertension, history of skin melanoma, history of bursitis with MRSA post I&D, rheumatoid arthritis, Sjogren's disease, 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 without any indication of ILD related to RA, Fall on July 22 transfer to [facility] for MRI, then Fall on 11/16/21 History of Any Multi-Drug Resistant Organisms: MRSA Date of last positivie culture/infection: 02/27/14 MDRO Source:: Sputum Past Surgical History: Back Surgery, Breast Surgery, Cholecystectomy, Heart Catheterization, Joint Replacement, Orthopedic Surgery Additional Past Surgical History / Comment(s): Bilateral cataracts with lens implants, arthroscopies to lt wrist, gualberto knees, gualberto ankles, gualberto hips, lt hip replacment and redone, L/R shoulder sxs, rt breast bx-benign, egd/colonoscopy, skin cancer removal L arm, Lumbar fixnation possible broken Past Anesthesia/Blood Transfusion Reactions: No Reported Reaction Additional Past Anesthesia/Blood Transfusion Reaction / Comment(s): Pt has been told not to have anesthesia metabolized by the kidneys and has neurologic Sjogren's with post anesthesia paralysis. Past Psychological History: No Psychological Hx Reported Smoking Status: Former smoker Past Alcohol Use History: None Reported Additional Past Alcohol Use History / Comment(s): Pt started smoking in 1961 and quit in 1969 Past Drug Use History: None Reported - Past Family History Mother Family Medical History: CVA/TIA Additional Family Medical History / Comment(s): RUPTURED BOWEL Father Family Medical History: Cancer, Pneumonia Additional Family Medical History / Comment(s): ASPIRATIVE PNA Sister(s) Additional Family Medical History / Comment(s): at age 34 with lupus Medications and Allergies Home Medications Medication Instructions Recorded Confirmed Type Latanoprost [Xalatan 0.005%] 1 drop BOTH EYES HS 08/11/17 01/11/22 History Insulin Lispro [humaLOG Kwikpen] See Protocol SQ AC-TID 09/25/18 01/11/22 History Multivitamins, Thera [Multivitamin 1 tab PO DAILY@1200 11/19/18 01/11/22 History (formulary)] predniSONE 5 mg PO DAILY@0907/23/21 01/11/22 History Amiodarone HCl [Cordarone] 100 mg PO DAILY@0908/30/21 01/11/22 History Dicyclomine [Bentyl] 10 mg PO Q8H PRN 08/30/21 01/11/22 History Famotidine [Pepcid] 10 mg PO Q12H PRN 08/30/21 01/11/22 History Insulin Glargine,Hum.rec.anlog 30 units SQ DAILY@0808/30/21 01/11/22 History [Lantus Solostar Pen] Magnesium Oxide 400 mg PO DAILY@1200 08/30/21 01/11/22 History Omeprazole 20 mg PO DAILY@0900 08/30/21 01/11/22 History Oxybutynin Chloride [Oxybutynin 10 mg PO DAILY@0900 08/30/21 01/11/22 History Chloride ER] Tamsulosin [Flomax] 0.4 mg PO DAILY@0900 08/30/21 01/11/22 History methocarbamoL [Methocarbamol] 1,000 mg PO Q6H PRN 08/30/21 01/11/22 History polyethylene glycoL 3350 [Miralax] 17 gm PO DAILY packet 09/06/21 01/11/22 Rx Calcium Citrate/Vitamin D3 1 tab PO BID@0900,1700 11/16/21 01/11/22 History [Citracal + D Maximum Caplet] Clotrimazole [Lotrimin AF] 1 applic TOPICAL DAILY PRN 11/16/21 01/11/22 History Digoxin [Lanoxin] 125 mcg PO Q48H PRN 11/16/21 01/11/22 History Docusate [Colace] 100 mg PO BID@0900,1700 11/16/21 01/11/22 History Furosemide [Lasix] 40 mg PO BID@0900,1700 11/16/21 01/11/22 History Levothyroxine Sodium 150 mcg PO MOTUWETH@0600 11/16/21 01/11/22 History Levothyroxine Sodium [Synthroid] 137 mcg PO SUFRSA@59911/16/21 01/11/22 History Nitroglycerin Sl Tabs [Nitrostat] 0.4 mg SL Q5M PRN 11/16/21 01/11/22 History Potassium Chloride ER [K-Dur 10] 10 meq PO DAILY@1200 11/16/21 01/11/22 History metFORMIN HCL ER [Glucophage XR] 500 mg PO DAILY@1700 11/16/21 01/11/22 History Apixaban [Eliquis] 5 mg PO BID@0900,1700 #0 12/20/21 01/11/22 Rx HYDROcodone/APAP 7.5-325MG [[place] 1 tab PO Q6HR PRN 3 Days #12 tab 12/20/21 01/11/22 Rx 7.5-325] Acetaminophen [Tylenol] 650 mg PO Q4H PRN 01/09/22 01/11/22 History Adalimumab [Humira(Cf) Pen] 40 mg SQ WE 01/09/22 01/11/22 History Gabapentin 800 mg PO BID@0900,2130 01/09/22 01/11/22 History Insulin Glargine,Hum.rec.anlog 15 units SQ HS@212901/09/22 01/11/22 History [Lantus Solostar Pen] Mag Hydrox/Al Hydrox/Simeth 30 ml PO Q6H PRN 01/09/22 01/11/22 History [Maalox] Metoprolol Tartrate [Lopressor] 50 mg PO BID@0900,1700 01/09/22 01/11/22 History Sodium Chloride [Saline Mist] 1 spray EA NOSTRIL Q2H PRN 01/09/22 01/11/22 History Levofloxacin [Levaquin] 500 mg PO DIRECTED 01/11/22 01/11/22 History Allergies Allergy/AdvReac Type Severity Reaction Status Date / Time adhesive Allergy Rash/Hives Verified 01/11/22 11:11 cephalexin [From Keflex] Allergy Rash/Hives Verified 01/11/22 11:11 grass pollen Allergy Unknown Verified 01/11/22 11:11 mold Allergy Unknown Verified 01/11/22 11:11 Sulfa (Sulfonamide Allergy Rash/Hives Verified 01/11/22 11:11 Antibiotics) newspaper ink Allergy Mild Unknown Uncoded 01/11/22 11:11 Physical Exam Vitals: Vital Signs Temp Pulse Pulse Resp BP BP Pulse Ox 01/12/22 10:05 97.6 F 72 14 126/63 98 01/12/22 05:11 97.5 F L 71 16 164/71 99 01/11/22 20:05 98 F 68 16 119/58 96 01/11/22 16:33 98.2 F 88 16 156/67 93 L 01/11/22 13:49 98.1 F 76 15 135/65 93 L 01/11/22 13:00 70 16 128/64 100 01/11/22 12:30 81 16 123/99 100 01/11/22 12:00 86 16 98 01/11/22 11:30 79 18 135/63 98 Intake and Output 01/11/22 01/12/22 01/12/22 22:59 06:59 14:59 Other: # Voids 2 Weight 118.388 kg PHYSICAL EXAMINATION: This is a 81-year-old female in no apparent distress at the time of my examination. HEENT: Head is atraumatic, normocephalic. Pupils are equal, round. Sclerae anicteric. Conjunctivae are clear. Mucous membranes of the mouth are moist. Neck is supple. There is no elevated jugular venous pressure. No carotid bruit is h eard. CHEST EXAMINATION: Clear to auscultation bilaterally. No wheezes rales or rhonchi. Respirations even and nonlabored. HEART EXAMINATION: Heart irregular rate and rhythm, positive S1 and S2. No S3. No S4. No clicks, rubs or murmurs. ABDOMEN: Soft, nontender. Bowel sounds are heard. No organomegaly noted. EXTREMITIES: 2+ peripheral pulses with no evidence of peripheral edema and no calf tenderness noted. NEUROLOGIC EXAMINATION: Patient is awake, alert and oriented x3. Results 01/11/22 09:59 01/11/22 09:59 Cardiac Enzymes 01/11/22 Range/Units 17:22 Troponin I <0.012 (0.000-0.034) ng/mL Current Medications Generic Name Dose Route Start Last Admin Trade Name Freq PRN Reason Stop Dose Admin Acetaminophen 650 mg 01/11/22 12:48 Acetaminophen Tab 325 Mg Tab PO Q6HR PRN Mild Pain or Fever > 100.5 Hydrocodone Bitart/Acetaminophen 1 each 01/11/22 12:54 01/12/22 05:34 Hydrocodone/Apap 7.5-325mg 1 Each Tab PO 1 each Q6HR PRN Administration Pain Al Hydroxide/Mg Hydroxide 30 ml 01/11/22 12:54 Mag Hydrox/Al Hydrox/Simeth 30 Ml Cup PO Q6H PRN GI Upset Amiodarone HCl 100 mg 01/12/22 09:00 01/12/22 09:44 Amiodarone 100 Mg Tab PO 100 mg DAILY@0900 ASHUTOSH Administration Apixaban 5 mg 01/11/22 17:00 01/12/22 09:43 Apixaban 5 Mg Tab PO 5 mg BID@0900,1700 ASHUTOSH Administration Protocol Calcium Carbonate 1 each 01/11/22 17:00 01/12/22 09:43 Calcium Carb-Vit D 500 Mg-5 Mcg Tab PO 1 each BID@0900,1700 ASHUTOSH Administration Dextrose/Water 25 ml 01/12/22 08:21 Dextrose 50% Syringe 50 Ml IVP PER PROTOCOL PRN Hypoglycemia Protocol Dextrose/Water 50 ml 01/12/22 08:21 Dextrose 50% Syringe 50 Ml IVP PER PROTOCOL PRN Hypoglycemia Protocol Dicyclomine HCl 10 mg 01/11/22 12:54 Dicyclomine 10 Mg Cap PO Q8H PRN CRAMPS/STOMACH PAIN Digoxin 125 mcg 01/12/22 09:00 Digoxin 125 Mcg Tab PO Q48H PRN HOLD IF PULSE LESS 60 Docusate Sodium 100 mg 01/11/22 17:00 01/12/22 09:43 Docusate 100 Mg Cap PO 100 mg BID@0900,1700 ASHUTOSH Administration Famotidine 10 mg 01/11/22 12:54 Famotidine 20 Mg Tab PO Q12H PRN Heartburn Furosemide 40 mg 01/11/22 17:00 01/12/22 09:43 Furosemide 40 Mg Tab PO 40 mg BID@0900,1700 ASHUTOSH Administration Gabapentin 800 mg 01/11/22 21:30 01/12/22 09:42 Gabapentin 400 Mg Cap PO 800 mg BID@899,2129 [facility] Administration Sodium Chloride 1,000 mls @ 130 mls/hr 01/11/22 13:00 01/12/22 05:37 Saline 0.9% IV 130 mls/hr .Q7H42M [facility] Administration Insulin Detemir 30 unit 01/12/22 08:00 01/12/22 08:55 Insulin Detemir (Levemir) 100 Unit/Ml Syr SQ 30 unit DAILY@0800 [facility] Administration Insulin Detemir 15 unit 01/11/22 21:30 01/11/22 21:26 Insulin Detemir (Levemir) 100 Unit/Ml Syr SQ 15 unit HS@213 [facility] Administration Latanoprost 1 drops 01/11/22 21:00 01/11/22 21:33 Latanoprost 0.005% Ophth Drops 2.5 Ml Btl BOTH EYES 1 drops HS [facility] Administration Levofloxacin 500 mg 01/12/22 09:00 01/12/22 10:59 Levofloxacin 500 Mg Tab PO 01/16/22 09:01 500 mg DAILY ASHUTOSH Administration Protocol Levothyroxine Sodium 137 mcg 01/14/22 06:00 Levothyroxine 137 Mcg Tab PO SUFRSA@0600 [facility] Levothyroxine Sodium 150 mcg 01/12/22 06:00 01/12/22 05:34 Levothyroxine 75 Mcg Tab PO 150 mcg MOTUWETH@0600 [facility] Administration Magnesium Oxide 400 mg 01/12/22 12:00 01/12/22 09:43 Magnesium Oxide 400 Mg Tab PO 400 mg DAILY@1200 [facility] Administration Metformin HCl 250 mg 01/11/22 17:30 01/12/22 09:42 Metformin 500 Mg Tab PO 250 mg BID-W/MEALS ASHUTOSH Administration Methocarbamol 1,000 mg 01/11/22 12:54 Methocarbamol 500 Mg Tab PO Q6H PRN Pain Metoprolol Tartrate 50 mg 01/11/22 17:00 01/12/22 09:43 Metoprolol Tartrate 50 Mg Tab PO 50 mg BID@0900,1700 [facility] Administration Multivitamins 1 each 01/12/22 12:00 01/12/22 09:42 Multivitamins, Thera 1 Each Tab PO 1 each DAILY@1200 [facility] Administration Naloxone HCl 0.2 mg 01/11/22 12:48 Naloxone 0.4 Mg/Ml 1 Ml Vial IV Q2M PRN Opioid Reversal Nitroglycerin 0.4 mg 01/11/22 12:54 01/11/22 16:54 Nitroglycerin Sl Tabs 0.4 Mg Tab SUBLINGUAL 0.4 mg Q5M PRN Administration Chest Pain Adalimumab [Humira 40 mg 01/12/22 08:30 01/12/22 09:41 Pen] 40 Mg/0.4 Ml SQ Not Given Pen.Ij.Kit WE [facility] Ondansetron HCl 4 mg 01/11/22 12:48 Ondansetron 4 Mg/2 Ml Vial IVP Q8HR PRN Nausea And Vomiting Oxybutynin Chloride 10 mg 01/12/22 09:00 01/12/22 09:44 Oxybutynin 10 Mg Tab.Er.24 PO 10 mg DAILY@0900 [facility] Administration Pantoprazole Sodium 40 mg 01/12/22 09:00 01/12/22 09:42 Pantoprazole 40 Mg/10 Ml Vial IV 40 mg DAILY [facility] Administration Polyethylene Glycol 17 gm 01/12/22 09:00 01/12/22 09:42 Polyethylene Glycol 3350 17 Gm Powd.Pack PO 17 gm DAILY ASH[facility]OSH Administration Potassium Chloride 10 meq 01/12/22 12:00 Potassium Chloride Er 10 Meq Tab.Er.Prt PO DAILY@1200 [facility] Prednisone 5 mg 01/12/22 09:00 01/12/22 09:44 Prednisone 5 Mg Tab PO 5 mg DAILY@0900 [facility] Administration Tamsulosin HCl 0.4 mg 01/12/22 09:00 01/12/22 09:43 Tamsulosin 0.4 Mg Cap.Er.24h PO 0.4 mg DAILY@0900 [facility] Administration Intake and Output 01/11/22 01/12/22 01/12/22 22:59 06:59 14:59 Other: # Voids 2 Weight 118.388 kg 01/11/22 09:59 01/11/22 09:59 EKG Interpretations (text) Atrial fibrillation Assessment and Plan Assessment: #1 vague complaints of chest discomfort, acute coronary syndrome has been ruled out, troponins negative 3, EKG with no evidence of acute ischemia #2 weakness likely secondary to dehydration #3 urinate tract infection #4 chronic persistent atrial fibrillation 5 hypertension #6 hyperlipidemia #7 CAD #8 chronic heart failure with preserved ejection fraction, no evidence of acute failure. Plan: From cardiology's perspective medications were reviewed and we will continue the same. There's been no evidence of hypotension or bradycardia. Acute coronary syndrome has been ruled out. No further cardiac workup as an inpatient at this time. We'll follow the patient on an as-needed basis. [employer] note has been reviewed, I agree with a documented findings and plan of care. Patient was seen and examined.
[2022-01-12] MEDS: POTASSIUM CHLORIDE ER 10 MEQ TAB.ER.PRT PO SCH (12:26)
[2022-01-12 17:12] LABS: Glucose,Whole Blood 257 mg/dL (70-110)
[2022-01-12 20:29] LABS: Glucose,Whole Blood 261 mg/dL (70-110)
[2022-01-12] MEDS: LATANOPROST 0.005% OPHTH DROPS 2.5 ML BTL BOTH EYES SCH (20:53)
[2022-01-13] MEDS: HYDROcodone/APAP 7.5-325MG 1 EACH TAB PO PRN ×2 (02:21→20:00)
[2022-01-13] MEDS: LEVOTHYROXINE 75 MCG TAB PO SCH (05:06)
[2022-01-13] MEDS: SODIUM CHLORIDE 0.9% 1,000 ML IV SCH ×3 (05:09→20:32)
[2022-01-13 07:18] LABS: Glucose,Whole Blood 206 mg/dL (70-110)
--- NOTE | 2022-01-13 08:42 | P.PN ---
Subjective Progress Note Date: 01/13/22 Principal diagnosis: Dizziness This is an 81-year-old female admitted for dizziness. Low magnesium upon admission, magnesium was replaced. Labs for today as are still pending. Isaak reese reports she is still feeling weak today. Will continue to work on mobility and plan for discharge tomorrow. Objective - Vital Signs Vital signs: Vital Signs Temp 97.7 F 01/13/22 05:00 Pulse 78 01/13/22 05:00 Resp 16 01/13/22 05:00 BP 146/68 01/13/22 05:00 Pulse Ox 98 01/13/22 05:00 FiO2 Intake & Output 01/12/22 01/13/22 01/13/22 18:59 06:59 18:59 Intake Total 590 590 Output Total 2 Balance 590 588 Intake: Oral 590 590 Output: Stool 2 Other: # Voids 2 - Constitutional General appearance: Present: cooperative, no acute distress - EENT Eyes: Present: EOMI, PERRLA - Neck Neck: Present: normal ROM. Absent: rigidity - Respiratory Respiratory: bilateral: CTA - Cardiovascular Rhythm: irregularly irregular - Gastrointestinal General gastrointestinal: Present: normal bowel sounds, soft - Integumentary Integumentary: Present: normal, normal turgor - Psychiatric Psychiatric: Present: A&O x's 3, appropriate affect, intact judgment & insight - Labs CBC & Chem 7: 01/11/22 09:59 01/11/22 09:59 Labs: Abnormal Lab Results - Last 24 Hours (Table) 01/12/22 01/12/22 01/12/22 Range/Units 10:28 11:14 17:11 POC Glucose (mg/dL) 290 H 257 H (70-110) mg/dL Hemoglobin A1c 8.3 H (0.0-6.0) % 01/12/22 01/13/22 Range/Units 20:27 07:15 POC Glucose (mg/dL) 261 H 206 H (70-110) mg/dL Hemoglobin A1c (0.0-6.0) % Microbiology - Last 24 Hours (Table) 01/11/22 09:59 Urine Culture - Final Urine,Catheterized Assessment and Plan (1) Generalized weakness Current Visit: Yes Status: Acute Code(s): R53.1 - WEAKNESS SNOMED Code(s): 98677194 (2) Hypomagnesemia Current Visit: Yes Status: Acute Code(s): E83.42 - HYPOMAGNESEMIA SNOMED Code(s): 446870786 (3) Atrial fibrillation Current Visit: No Status: Acute Code(s): I48.91 - UNSPECIFIED ATRIAL FIBRILLATION SNOMED Code(s): 03108772 (4) Diabetes Current Visit: No Status: Acute Code(s): E11.9 - TYPE 2 DIABETES MELLITUS WITHOUT COMPLICATIONS SNOMED Code(s): 60760822 (5) Hyperlipidemia Current Visit: No Status: Acute Code(s): E78.5 - HYPERLIPIDEMIA, UNSPECIFIED SNOMED Code(s): 24708954 (6) Hypertension Current Visit: No Status: Acute Code(s): I10 - ESSENTIAL (PRIMARY) HYPERTENSION SNOMED Code(s): 38233757 Plan: Continue to work on mobility. Await lab results for today. Will order CMP and magnesium for tomorrow. Anticipate discharge tomorrow morning. Patient seen and evaluated by nurse practitioner, physician in agreement with plan
[2022-01-13] MEDS: AMIODARONE 100 MG TAB PO SCH (10:13)
[2022-01-13] MEDS: PANTOPRAZOLE 40 MG TABLET PO SCH (10:13)
[2022-01-13] MEDS: POTASSIUM CHLORIDE ER 10 MEQ TAB.ER.PRT PO SCH (10:13)
[2022-01-13] MEDS: MULTIVITAMINS, THERA 1 EACH TAB PO SCH (10:13)
[2022-01-13] MEDS: MAGNESIUM OXIDE 400 MG TAB PO SCH (10:13)
[2022-01-13] MEDS: CALCIUM CARB-VIT D 500 MG-5 MCG TAB PO SCH ×2 (10:14→17:17)
[2022-01-13] MEDS: predniSONE 5 MG TAB PO SCH (10:14)
[2022-01-13] MEDS: OXYBUTYNIN 10 MG TAB.ER.24 PO SCH (10:14)
[2022-01-13] MEDS: LEVOFLOXACIN 500 MG TAB PO SCH (10:14)
[2022-01-13] MEDS: metFORMIN 500 MG TAB PO SCH ×2 (10:14→17:17)
[2022-01-13] MEDS: APIXABAN 5 MG TAB PO SCH ×2 (10:14→17:19)
[2022-01-13] MEDS: METOPROLOL TARTRATE 50 MG TAB PO SCH ×2 (10:15→17:19)
[2022-01-13] MEDS: DOCUSATE 100 MG CAP PO SCH ×2 (10:15→17:18)
[2022-01-13] MEDS: FUROSEMIDE 40 MG TAB PO SCH ×2 (10:15→17:18)
[2022-01-13] MEDS: INSULIN DETEMIR (LEVEMIR) 100 UNIT/ML SYR SQ SCH ×2 (10:15→20:34)
[2022-01-13] MEDS: polyethylene glycoL 3350 17 GM POWD.PACK PO SCH (10:15)
[2022-01-13] MEDS: TAMSULOSIN 0.4 MG CAP.ER.24H PO SCH (10:15)
[2022-01-13] MEDS: GABAPENTIN 400 MG CAP PO SCH ×2 (10:15→20:34)
[2022-01-13 10:43] LABS: HCT 31.2 % (37.2-46.3); HGB 9.2 g/dL (12.0-15.0); MCH 26.8 pg (27.0-32.0); MCHC 29.5 g/dL (32.0-37.0); Mean Platelet Volume 11.2 fL (9.5-12.2); NRBC Per 100 WBC 0 /100 WBCS (0.0-0.0); Platelet Count 189 X 10*3/uL (140-440); RBC 3.43 X 10*6/uL (4.10-5.20); WBC 6.46 X 10*3/uL (4.50-10.00)
[2022-01-13 10:53] LABS: African American GFR (CKD) 94.8 (60.0-200.0); Albumin 3.2 g/dL (3.8-4.9); Albumin/Globulin Ratio 1.07 (1.60-3.17); Anion Gap 9.4 mmol/L (10.00-18.00); BUN/Creat Ratio 11.57 Ratio (12.00-20.00); Blood Urea Nitrogen 8.1 mg/dL (9.0-27.0); Calcium 8.9 mg/dL (8.7-10.3); Carbon Dioxide 31.6 mmol/L (20.0-27.5); Magnesium 1.6 mg/dL (1.5-2.4); Non-African American GFR(CKD) 81.8 (60.0-200.0); Potassium 3.4 mmol/L (3.5-5.5); Total Bilirubin 0.3 mg/dL (0.30-1.20); Total Protein 6.2 g/dL (6.2-8.2)
[2022-01-13 12:07] LABS: Glucose,Whole Blood 268 mg/dL (70-110)
[2022-01-13 17:26] LABS: Glucose,Whole Blood 305 mg/dL (70-110)
[2022-01-13 18:19] VITALS: RESP 16
[2022-01-13 20:12] LABS: Glucose,Whole Blood 276 mg/dL (70-110)
[2022-01-13] MEDS: LATANOPROST 0.005% OPHTH DROPS 2.5 ML BTL BOTH EYES SCH (20:34)
[2022-01-14] MEDS: HYDROcodone/APAP 7.5-325MG 1 EACH TAB PO PRN ×2 (04:06→09:18)
[2022-01-14] MEDS: SODIUM CHLORIDE 0.9% 1,000 ML IV SCH (04:10)
[2022-01-14 04:45] VITALS: BP 145/73; PULSE 62; TEMP 98.2
[2022-01-14] MEDS ORDERED: LEVOTHYROXINE 137 MCG TAB PO SCH (06:00)
[2022-01-14 07:35] LABS: Glucose,Whole Blood 146 mg/dL (70-110)
--- NOTE | 2022-01-14 08:12 | P.DS ---
Providers Date of admission: 01/11/22 12:48 Attending physician: Nicholas Hart Consults: 01/11/22 17:23 Consult Physician Stat Consulting Provider: Levi Tolentino Consult Reason/Comments: Chest pain/ ekg change Do you want consulting provider notified?: Yes Primary care physician: Nicholas Hart - Discharge Diagnosis(es) (1) Dehydration Current Visit: Yes Status: Acute (2) Generalized weakness Current Visit: Yes Status: Acute (3) Hypomagnesemia Current Visit: Yes Status: Acute (4) UTI (urinary tract infection) Current Visit: Yes Status: Acute (5) Acute electrocardiogram changes Current Visit: No Status: Acute (6) Atrial fibrillation Current Visit: No Status: Acute (7) Diabetes Current Visit: No Status: Acute (8) History of lumbar fusion Current Visit: No Status: Acute (9) History of total left hip arthroplasty Current Visit: No Status: Acute (10) Hyperlipidemia Current Visit: No Status: Acute (11) Hypertension Current Visit: No Status: Acute (12) Inability to perform activities of daily living Current Visit: No Status: Acute (13) Increased weakness when ambulating Current Visit: No Status: Acute (14) Low back pain Current Visit: No Status: Acute Hospital Course: This is a discharge summary an 81-year-old white female essentially admitted for dizziness. She has an underlying history of urinary tract infection and anemia of chronic disease. History diabetes with atrial fibrillation. The patient developed chest pain during this hospitalization. EKG showed some minor changes cardiology observed. The patient was stabilized after rehydration. Developed had hypomagnesemia during this hospital cessation which resolved on discharge. The patient is tolerating diet has significant DDD of the lumbar spine. History of recent cholecystectomy. The patient is discharged stable condition tolerating diet and voiding without difficulties will follow-up with me, due to the holiday in about 7-10 days. Patient Condition at Discharge: Fair Plan - Discharge Summary Discharge Rx Participant: Yes New Discharge Prescriptions: Continue RX: Latanoprost [Xalatan 0.005%] 1 drop BOTH EYES HS RX: Insulin Lispro [humaLOG Kwikpen] See Protocol SQ AC-TID RX: Multivitamins, Thera [Multivitamin (formulary)] 1 tab PO DAILY@1200 RX: Dicyclomine [Bentyl] 10 mg PO Q8H PRN PRN Reason: CRAMPS/STOMACH PAIN RX: Insulin Glargine,Hum.rec.anlog [Lantus Solostar Pen] 30 units SQ DAILY@0800 RX: Magnesium Oxide 400 mg PO DAILY@1200 RX: Omeprazole 20 mg PO DAILY@0900 RX: Tamsulosin [Flomax] 0.4 mg PO DAILY@0900 RX: Levothyroxine Sodium 150 mcg PO MOTUWETH@0600 RX: Docusate [Colace] 100 mg PO BID@0900,1700 RX: Calcium Citrate/Vitamin D3 [Citracal + D Maximum Caplet] 1 tab PO BID@09,1700 RX: Mag Hydrox/Al Hydrox/Simeth [Maalox] 30 ml PO Q6H PRN PRN Reason: Gi Upset RX: Acetaminophen [Tylenol] 650 mg PO Q4H PRN PRN Reason: Pain Or Fever > 100.5 RX: Adalimumab [Humira(Cf) Pen] 40 mg SQ WE RX: Levofloxacin [Levaquin] 500 mg PO DIRECTED RX: predniSONE 5 mg PO DAILY@0900 RX: Amiodarone HCl [Cordarone] 100 mg PO DAILY@0900 RX: Famotidine [Pepcid] 10 mg PO Q12H PRN PRN Reason: Heartburn RX: methocarbamoL [Methocarbamol] 1,000 mg PO Q6H PRN PRN Reason: Pain RX: Oxybutynin Chloride [Oxybutynin Chloride ER] 10 mg PO DAILY@0900 RX: polyethylene glycoL 3350 [Miralax] 17 gm PO DAILY packet RX: Potassium Chloride ER [K-Dur 10] 10 meq PO DAILY@1200 RX: Nitroglycerin Sl Tabs [Nitrostat] 0.4 mg SL Q5M PRN PRN Reason: Chest Pain RX: metFORMIN HCL ER [Glucophage XR] 500 mg PO DAILY@1700 RX: Levothyroxine Sodium [Synthroid] 137 mcg PO SUFRSA@0600 RX: Furosemide [Lasix] 40 mg PO BID@0900,1700 RX: Digoxin [Lanoxin] 125 mcg PO Q48H PRN PRN Reason: HOLD IF PULSE LESS 60 RX: Clotrimazole [Lotrimin AF] 1 applic TOPICAL DAILY PRN PRN Reason: FUNGAL INFECTION RX: Apixaban [Eliquis] 5 mg PO BID@0900,1700 #0 RX: HYDROcodone/APAP 7.5-325MG [[place] 7.5-325] 1 tab PO Q6HR PRN 3 Days #12 tab PRN Reason: Pain RX: Sodium Chloride [Saline Mist] 1 spray EA NOSTRIL Q2H PRN PRN Reason: DRY NOSE/COLD SYMPTOMS RX: Metoprolol Tartrate [Lopressor] 50 mg PO BID@0900,1700 RX: Insulin Glargine,Hum.rec.anlog [Lantus Solostar Pen] 15 units SQ HS@2129 RX: Gabapentin 800 mg PO BID@899,2129 Discharge Medication List RX: Latanoprost [Xalatan 0.005%] 1 drop BOTH EYES HS 08/11/17 [History] RX: Insulin Lispro [humaLOG Kwikpen] See Protocol SQ AC-TID 09/25/18 [History] RX: Multivitamins, Thera [Multivitamin (formulary)] 1 tab PO DAILY@1200 11/19/18 [History] RX: predniSONE 5 mg PO DAILY@89907/23/21 [History] RX: Amiodarone HCl [Cordarone] 100 mg PO DAILY@89908/30/21 [History] RX: Dicyclomine [Bentyl] 10 mg PO Q8H PRN 08/30/21 [History] RX: Famotidine [Pepcid] 10 mg PO Q12H PRN 08/30/21 [History] RX: Insulin Glargine,Hum.rec.anlog [Lantus Solostar Pen] 30 units SQ DAILY@0808/30/21 [History] RX: Magnesium Oxide 400 mg PO DAILY@1200 08/30/21 [History] RX: Omeprazole 20 mg PO DAILY@89908/30/21 [History] RX: Oxybutynin Chloride [Oxybutynin Chloride ER] 10 mg PO DAILY@89908/30/21 [History] RX: Tamsulosin [Flomax] 0.4 mg PO DAILY@89908/30/21 [History] RX: methocarbamoL [Methocarbamol] 1,000 mg PO Q6H PRN 08/30/21 [History] RX: polyethylene glycoL 3350 [Miralax] 17 gm PO DAILY packet 09/06/21 [Rx] RX: Calcium Citrate/Vitamin D3 [Citracal + D Maximum Caplet] 1 tab PO BID@0900,1700 11/16/21 [History] RX: Clotrimazole [Lotrimin AF] 1 applic TOPICAL DAILY PRN 11/16/21 [History] RX: Digoxin [Lanoxin] 125 mcg PO Q48H PRN 11/16/21 [History] RX: Docusate [Colace] 100 mg PO BID@0900,169911/16/21 [History] RX: Furosemide [Lasix] 40 mg PO BID@0900,17011/16/21 [History] RX: Levothyroxine Sodium 150 mcg PO MOTUWETH@59911/16/21 [History] RX: Levothyroxine Sodium [Synthroid] 137 mcg PO SUFRSA@59911/16/21 [History] RX: Nitroglycerin Sl Tabs [Nitrostat] 0.4 mg SL Q5M PRN 11/16/21 [History] RX: Potassium Chloride ER [K-Dur 10] 10 meq PO DAILY@1200 11/16/21 [History] RX: metFORMIN HCL ER [Glucophage XR] 500 mg PO DAILY@169911/16/21 [History] RX: Apixaban [Eliquis] 5 mg PO BID@0900,1700 #0 12/20/21 [Rx] RX: HYDROcodone/APAP 7.5-325MG [[place] 7.5-325] 1 tab PO Q6HR PRN 3 Days #12 tab 12/20/21 [Rx] RX: Acetaminophen [Tylenol] 650 mg PO Q4H PRN 01/09/22 [History] RX: Adalimumab [Humira(Cf) Pen] 40 mg SQ WE 01/09/22 [History] RX: Gabapentin 800 mg PO BID@0900,212901/09/22 [History] RX: Insulin Glargine,Hum.rec.anlog [Lantus Solostar Pen] 15 units SQ HS@212901/09/22 [History] RX: Mag Hydrox/Al Hydrox/Simeth [Maalox] 30 ml PO Q6H PRN 01/09/22 [History] RX: Metoprolol Tartrate [Lopressor] 50 mg PO BID@0900,1700 01/09/22 [History] RX: Sodium Chloride [Saline Mist] 1 spray EA NOSTRIL Q2H PRN 01/09/22 [History] RX: Levofloxacin [Levaquin] 500 mg PO DIRECTED 01/11/22 [History] Follow up Appointment(s)/Referral(s): [facility], [NON-STAFF] - 1 Week Nicholas Hart MD [Primary Care Provider] - 1-2 days Activity/Diet/Wound Care/Special Instructions: pt would like wheel chair van transport at time of d/c. nurse to arrange Discharge Disposition: HOME WITH HOME HEALTH SERVICES
[2022-01-14] MEDS: INSULIN DETEMIR (LEVEMIR) 100 UNIT/ML SYR SQ SCH (09:04)
[2022-01-14] MEDS: polyethylene glycoL 3350 17 GM POWD.PACK PO SCH (09:06)
[2022-01-14] MEDS: metFORMIN 500 MG TAB PO SCH (09:06)
[2022-01-14] MEDS: FUROSEMIDE 40 MG TAB PO SCH (09:07)
[2022-01-14] MEDS: METOPROLOL TARTRATE 50 MG TAB PO SCH (09:07)
[2022-01-14] MEDS: APIXABAN 5 MG TAB PO SCH (09:07)
[2022-01-14] MEDS: MULTIVITAMINS, THERA 1 EACH TAB PO SCH (09:08)
[2022-01-14] MEDS: AMIODARONE 100 MG TAB PO SCH (09:08)
[2022-01-14] MEDS: LEVOFLOXACIN 500 MG TAB PO SCH (09:08)
[2022-01-14] MEDS: DOCUSATE 100 MG CAP PO SCH (09:08)
[2022-01-14] MEDS: MAGNESIUM OXIDE 400 MG TAB PO SCH (09:08)
[2022-01-14] MEDS: CALCIUM CARB-VIT D 500 MG-5 MCG TAB PO SCH (09:08)
[2022-01-14] MEDS: GABAPENTIN 400 MG CAP PO SCH (09:08)
[2022-01-14] MEDS: predniSONE 5 MG TAB PO SCH (09:09)
[2022-01-14] MEDS: POTASSIUM CHLORIDE ER 10 MEQ TAB.ER.PRT PO SCH (09:09)
[2022-01-14] MEDS: TAMSULOSIN 0.4 MG CAP.ER.24H PO SCH (09:09)
[2022-01-14] MEDS: OXYBUTYNIN 10 MG TAB.ER.24 PO SCH (09:09)
[2022-01-14] MEDS: PANTOPRAZOLE 40 MG TABLET PO SCH (09:09)
[2022-01-14 10:49] LABS: African American GFR (CKD) 80.7 (60.0-200.0); Albumin 3.2 g/dL (3.8-4.9); Anion Gap 10.3 mmol/L (10.00-18.00); Calcium 8.9 mg/dL (8.7-10.3); Carbon Dioxide 30.7 mmol/L (20.0-27.5); Globulin 3.2 g/dL (1.6-3.3); Magnesium 1.5 mg/dL (1.5-2.4); Non-African American GFR(CKD) 69.6 (60.0-200.0); Potassium 3.4 mmol/L (3.5-5.5); Total Bilirubin 0.4 mg/dL (0.30-1.20); Total Protein 6.4 g/dL (6.2-8.2)
== END 2022-01-14 10:55 | disposition home or self-care (01) | DRG 641 ==
LOC: EC 09:39 → 5NMEDONC 12:48
PROVIDERS: ADMIT Family Medicine; ATTEND Family Medicine
DX: E83.42 Hypomagnesemia (principal); I50.32 Chronic diastolic (congestive) heart failure; N39.0 Urinary tract infection, site not specified; I48.21 Permanent atrial fibrillation; D63.8 Anemia in other chronic diseases classified elsewhere; J44.9 Chronic obstructive pulmonary disease, unspecified; I25.10 Atherosclerotic heart disease of native coronary artery without angina pectoris; I11.0 Hypertensive heart disease with heart failure; M06.9 Rheumatoid arthritis, unspecified; J30.1 Allergic rhinitis due to pollen; M35.00 Sjogren syndrome, unspecified; E78.5 Hyperlipidemia, unspecified; M51.36 Other intervertebral disc degeneration, lumbar region; E86.0 Dehydration; Z98.1 Arthrodesis status; E11.9 Type 2 diabetes mellitus without complications; Z96.642 Presence of left artificial hip joint; M54.50 Low back pain, unspecified; E03.9 Hypothyroidism, unspecified; Z79.890 Hormone replacement therapy; Z79.01 Long term (current) use of anticoagulants; Z79.84 Long term (current) use of oral hypoglycemic drugs; Z79.899 Other long term (current) drug therapy; Z85.820 Personal history of malignant melanoma of skin; Z87.440 Personal history of urinary (tract) infections; Z87.891 Personal history of nicotine dependence; Z90.49 Acquired absence of other specified parts of digestive tract; Z98.42 Cataract extraction status, left eye; Z98.41 Cataract extraction status, right eye; Z96.1 Presence of intraocular lens; Z88.1 Allergy status to other antibiotic agents
CPT/HCPCS: 36415; 71046; 74018; 80053; 81001; 82550; 83036; 83605; 83690; 83735; 84484; 85025; 85027; 87086; 93005; 96365; 99285

== ENCOUNTER 2022-05-16 23:07 | Inpatient (IN) | payer MEDICARE ==
--- NOTE | 2022-05-17 00:26 | XR ---
EXAMINATION TYPE: XR chest 2V DATE OF EXAM: 05/17/2022 COMPARISON: 05/02/2022 HISTORY: Coughing up blood TECHNIQUE: 2 views FINDINGS: Heart is slightly enlarged. No obvious heart failure. There are no hilar masses. Thoracic a nancy is atheromatous. There are chest leads. Bony thorax is intact. There is some coarsening of inter stitial markings. IMPRESSION: There is some mild pulmonary vascular congestion similar to last exam. No pleural fluid s een to suggest heart failure.
[2022-05-17 00:32] LABS: Anisocytosis Slight; Basophils % (A) 0 %; Eosinophils # (A) 0.1 k/uL (0-0.7); Eosinophils % (A) 3 %; HGB 10.3 gm/dL (11.4-16.0); Hypochromasia Marked; Lymphocytes # (A) 0.9 k/uL (1.0-4.8); Lymphocytes % (A) 23 %; MCH 25.6 pg (25.0-35.0); MCHC 30.3 g/dL (31.0-37.0); MCV 84.5 fL (80.0-100.0); Monocytes # (A) 0.3 k/uL (0-1.0); Monocytes % (A) 8 %; Neutrophils # (A) 2.5 k/uL (1.3-7.7); Neutrophils % (A) 62 %; Platelet Count 158 k/uL (150-450); RBC 4.02 m/uL (3.80-5.40); RDW 16.9 % (11.5-15.5)
[2022-05-17 00:37] LABS: INR 1.2 (<1.2); Partial Thromboplastin Time 25.7 sec (22.0-30.0); Prothrombin Time 12.6 sec (9.0-12.0)
[2022-05-17 00:47] LABS: Albumin 3.7 g/dL (3.5-5.0); Calcium 8.9 mg/dL (8.4-10.2); Magnesium 1.8 mg/dL (1.6-2.3); Potassium 4.1 mmol/L (3.5-5.1); Total Bilirubin 0.5 mg/dL (0.2-1.3); Total Protein 7.2 g/dL (6.3-8.2)
--- NOTE | 2022-05-17 01:38 | ED ---
General Adult HPI - General Chief complaint: Upper Respiratory Infection Stated complaint: Coughing up blood Time Seen by Provider: 05/16/22 23:18 Source: patient Mode of arrival: wheelchair Limitations: no limitations - History of Present Illness Initial comments: This is an 81-year-old female with an extensive past medical history including hypertension, CHF, diabetes, atrial fibrillation presents emergency Department with her for cough and shortness of breath. The patient stated that she had a cough over the last 3 days and seemed to be worsening. The patient did state that she had blood-streaked sputum associated with this cough which made her come to the emergency department for further evaluation. The patient reported associated chills without fevers. The patient denied any other acute pain or complaints at this time and was resting in bed comfortably. The patient denied any recent sick contacts but did state that her had a cold the last several weeks. - Related Data Home Medications Medication Instructions Recorded Confirmed Latanoprost [Xalatan 0.005%] 1 drop BOTH EYES HS 08/11/17 05/02/22 predniSONE 5 mg PO DAILY 07/23/21 05/02/22 Magnesium Oxide 400 mg PO DAILY 08/30/21 05/02/22 methocarbamoL [Methocarbamol] 500 mg PO HS 08/30/21 05/02/22 Calcium Citrate/Vitamin D3 1 tab PO BID@1000,1730 11/16/21 05/02/22 [Citracal + D Maximum Caplet] Digoxin [Lanoxin] 125 mcg PO Q2D@1000 11/16/21 05/02/22 Levothyroxine Sodium [Synthroid] 137 mcg PO HS 11/16/21 05/02/22 Nitroglycerin Sl Tabs [Nitrostat] 0.4 mg SL Q5M PRN 11/16/21 05/02/22 Adalimumab [Humira(Cf) Pen] 40 mg SQ FR 01/09/22 05/02/22 Apixaban [Eliquis] 5 mg PO BID@1000,1730 05/02/22 05/02/22 Gabapentin [Neurontin] 400 mg PO Q6H 05/02/22 05/02/22 HYDROcodone/APAP 7.5-325MG [Mcalester 1 tab PO Q6H 05/02/22 05/02/22 7.5-325] INSULIN LISPRO (HumaLOG) [humaLOG] 4 units SQ AC-LUNCH 05/02/22 05/02/22 INSULIN LISPRO (HumaLOG) [humaLOG] See Protocol SQ AC-TID 05/02/22 05/02/22 INSULIN LISPRO (humaLOG) [humaLOG] 8 units SQ AC-SUPPER 05/02/22 05/02/22 Multivit-Min/FA/Lycopen/Lutein 1 tab PO DAILY 05/02/22 05/02/22 [Centrum Silver Tablet] Tolterodine Tartrate [Tolterodine 4 mg PO DAILY 05/02/22 05/02/22 Tartrate ER] metFORMIN HCL [Glucophage] 500 mg PO DAILY@1730 05/02/22 05/02/22 Previous Rx's Medication Instructions Recorded Bumetanide [BUMEX] 1 mg PO DAILY #30 tab 05/03/22 Verapamil Sr [Isoptin Sr] 180 mg PO DAILY #30 tab 05/03/22 Insulin Detemir (Levemir) [Levemir] 14 unit SQ HS each 05/05/22 Insulin Detemir (Levemir) [Levemir] 25 unit SQ DAILY@0700 each 05/05/22 Allergies Allergy/AdvReac Type Severity Reaction Status Date / Time adhesive Allergy Rash/Hives Verified 05/02/22 16:22 cephalexin [From Keflex] Allergy Rash/Hives Verified 05/02/22 16:22 grass pollen Allergy Unknown Verified 05/02/22 16:22 mold Allergy Unknown Verified 05/02/22 16:22 Sulfa (Sulfonamide Allergy Rash/Hives Verified 05/02/22 16:22 Antibiotics) newspaper ink Allergy Mild Unknown Uncoded 05/02/22 16:22 Review of Systems ROS Statement: Those systems with pertinent positive or pertinent negative responses have been documented in the HPI. ROS Other: All systems not noted in ROS Statement are negative. Past Medical History Past Medical History: Atrial Fibrillation, Coronary Artery Disease (CAD), Cancer, Diabetes Mellitus, Hyperlipidemia, Hypertension, Musculoskeletal Disorder, Neurologic Disorder, Osteoarthritis (OA), Pneumonia, Renal Disease, Rheumatoid Arthritis (RA), Skin Disorder, Thyroid Disorder Additional Past Medical History / Comment(s): Morbid obesity, chronic atrial fibrillation, diabetes mellitus type 2, hypertension, hyperlipidemia, spinal stenosis, osteoarthritis, hypothyroidism, hypertension, history of skin melanoma, history of bursitis with MRSA post I&D, rheumatoid arthritis, Sjogren's disease, 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 without any indication of ILD related to RA, Fall on July 22 transfer to [facility] for MRI, then Fall on 11/16/21 History of Any Multi-Drug Resistant Organisms: MRSA Date of last positivie culture/infection: 01/19/22 MDRO Source:: Wound Past Surgical History: Back Surgery, Breast Surgery, Cholecystectomy, Heart Catheterization, Joint Replacement, Orthopedic Surgery Additional Past Surgical History / Comment(s): Bilateral cataracts with lens implants, arthroscopies to lt wrist, gualberto knees, gualberto ankles, gualberto hips, lt hip replacment and redone, L/R shoulder sxs, rt breast bx-benign, egd/colonoscopy, skin cancer removal L arm, Lumbar fixnation possible broken Past Anesthesia/Blood Transfusion Reactions: No Reported Reaction Additional Past Anesthesia/Blood Transfusion Reaction / Comment(s): Pt has been told not to have anesthesia metabolized by the kidneys and has neurologic Sjogren's with post anesthesia paralysis. Past Psychological History: No Psychological Hx Reported Smoking Status: Former smoker Past Alcohol Use History: None Reported Past Drug Use History: None Reported - Past Family History Mother Family Medical History: CVA/TIA Additional Family Medical History / Comment(s): RUPTURED BOWEL Father Family Medical History: Cancer, Pneumonia Additional Family Medical History / Comment(s): ASPIRATIVE PNA Sister(s) Additional Family Medical History / Comment(s): at age 34 with lupus General Exam Limitations: no limitations General appearance: alert, in no apparent distress, obese Head exam: Present: atraumatic, normocephalic, normal inspection Eye exam: Present: normal appearance, PERRL Pupils: Present: normal accommodation ENT exam: Present: normal exam, normal oropharynx, mucous membranes moist Neck exam: Present: normal inspection, full ROM Respiratory exam: Present: normal lung sounds bilaterally Cardiovascular Exam: Present: regular rate, normal rhythm, normal heart sounds GI/Abdominal exam: Present: soft, normal bowel sounds Extremities exam: Present: normal inspection, full ROM, pedal edema Back exam: Present: normal inspection, full ROM Neurological exam: Present: alert, oriented X3, CN II-XII intact Psychiatric exam: Present: normal affect, normal mood Skin exam: Present: warm, dry Course Vital Signs 05/16/22 05/17/22 05/17/22 23:12 01:42 03:39 Temperature 98.3 F Pulse Rate 105 H 102 H 122 H Respiratory 16 22 20 Rate Blood Pressure 183/82 183/92 177/108 O2 Sat by Pulse 99 100 96 Oximetry EKG Findings - EKG Comments: EKG Findings:: An EKG was obtained and was interpreted by myself showing a rate of 93, QRS duration of 97 and QTC of 371. This EKG showed an atrial fibrillation which was similar to her previous history of A. fib. There were no ST segment elevations or depressions noted however. There was artifact secondary to the patient movement. Medical Decision Making - Medical Decision Making Was pt. sent in by a medical professional or institution (, PA, MEDIA RELATIONS MANAGER, urgent care, hospital, or group home...) When possible be specific @ -No Did you speak to anyone other than the patient for history (EMS, parent, family, police, friend...)? What history was obtained from this source @ -Yes, patient's Did you review nursing and triage notes (agree or disagree)? Why? @ -I reviewed and agree with nursing and triage notes Were old charts reviewed (outside hosp., previous admission, EMS record, old EKG, old radiological studies, urgent care reports/EKG's, group home records)? Report findings @ -No old charts were reviewed Differential Diagnosis (chest pain, altered mental status, abdominal pain women, abdominal pain men, vaginal bleeding, weakness, fever, dyspnea, syncope, headache, dizziness, GI bleed, back pain, seizure, CVA, palpatations, mental health)? @ -Upper respiratory infection, pneumonia, CHF exas EKG interpreted by me (3pts min.). @ -As above X-rays interpreted by me (1pt min.). @ -Chest x-ray was obtained and was interpreted by myself showing some mild pulmonary vascular congestion similar to the previous exam. CT interpreted by me (1pt min.). @ -None done U/S interpreted by me (1pt. min.). @ -None done What testing was considered but not performed or refused? (CT, X-rays, U/S, labs)? Why? @ -None What meds were considered but not given or refused? Why? @ -None Did you discuss the management of the patient with other professionals (professionals i.e. , PA, MEDIA RELATIONS MANAGER, lab, RT, psych nurse, social work specialist, rehab nursing tech, teacher, enforcement safety officer, vocational case manager)? Give summary @ -No Was smoking cessation discussed for >3mins.? @ -No Was critical care preformed (if so, how long)? @ -No Were there social determinants of health that impacted care today? How? (Homelessness, low income, unemployed, alcoholism, drug addiction, transportation, low edu. Level, literacy, decrease access to med. care, fpc, rehab)? @ -No Was there de-escalation of care discussed even if they declined (Discuss DNR or withdrawal of care, Hospice)? DNR status @ -No What co-morbidities impacted this encounter? (DM, HTN, Smoking, COPD, CAD, Cancer, CVA, ARF, Chemo, Hep., AIDS, mental health diagnosis, sleep apnea, morbid obesity)? @ -Hypertension, diabetes, atrial fibrillation, CHF Was patient admitted / discharged? Hospital course, mention meds given and route, prescriptions, significant lab abnormalities, going to OR and other pertinent info. @ -The patient was seen and evaluated emergency department. Physical exam, the patient was resting in bed without any acute distress. Vital signs admission were stable. Workup was obtained and was normal limits including swabs for COVID-19, influenza and RSV. The patient likely had an upper respiratory infection was told of this and was stable for discharge home. Prior to discharge, the patient's heart rate did elevate and she did have recurrence of her atrial fibrillation. The patient patient was given a dose of Cardizem in the emergency department and her heart rate did decrease significant only. The patient remained stable and was told to take her morning dose of blood pressure and heart rate medications when she arrives home. The patient was understanding of this as was her . The patient was discharged home in stable cond ition. Undiagnosed new problem with uncertain prognosis? @ -No Drug Therapy requiring intensive monitoring for toxicity (Heparin, Nitro, Insulin, Cardizem)? @ -No Were any procedures done? @ -No Diagnosis/symptom? @ -Upper respiratory infection Acute, or Chronic, or Acute on Chronic? @ -Acute Uncomplicated (without systemic symptoms) or Complicated (systemic symptoms)? @ -Uncomplicated Side effects of treatment? @ -No Exacerbation, Progression, or Severe Exacerbation? @ -No Poses a threat to life or bodily function? How? (Chest pain, [place], [place], pneumonia, PE, COPD, DKA, ARF, appy, cholecystitis, CVA, Diverticulitis, Homicidal, Suicidal, threat to staff... and all critical care pts) @ -No - Lab Data Result diagrams: 05/17/22 00:10 05/17/22 00:10 Lab Results 05/17/22 05/17/22 05/17/22 Range/Units 00:10 00:10 00:10 WBC 4.0 (3.8-10.6) k/uL RBC 4.02 (3.80-5.40) m/uL Hgb 10.3 L (11.4-16.0) gm/dL Hct 34.0 (34.0-46.0) % MCV 84.5 (80.0-100.0) fL MCH 25.6 (25.0-35.0) pg MCHC 30.3 L (31.0-37.0) g/dL RDW 16.9 H (11.5-15.5) % Plt Count 158 (150-450) k/uL MPV 7.0 Neutrophils % 62 % Lymphocytes % 23 % Monocytes % 8 % Eosinophils % 3 % Basophils % 0 % Neutrophils # 2.5 (1.3-7.7) k/uL Lymphocytes # 0.9 L (1.0-4.8) k/uL Monocytes # 0.3 (0-1.0) k/uL Eosinophils # 0.1 (0-0.7) k/uL Basophils # 0.0 (0-0.2) k/uL Hypochromasia Marked Anisocytosis Slight PT 12.6 H (9.0-12.0) sec INR 1.2 H (<1.2) APTT 25.7 (22.0-30.0) sec Sodium 140 (137-145) mmol/L Potassium 4.1 (3.5-5.1) mmol/L Chloride 100 (98-107) mmol/L Carbon Dioxide 35 H (22-30) mmol/L Anion Gap 5 mmol/L BUN 20 H (7-17) mg/dL Creatinine 0.77 (0.52-1.04) mg/dL Est GFR (CKD-EPI)AfAm 84 (>60 ml/min/1.73 sqM) Est GFR (CKD-EPI)NonAf 73 (>60 ml/min/1.73 sqM) Glucose 215 H (74-99) mg/dL Calcium 8.9 (8.4-10.2) mg/dL Magnesium 1.8 (1.6-2.3) mg/dL Total Bilirubin 0.5 (0.2-1.3) mg/dL AST 28 (14-36) U/L ALT 19 (4-34) U/L Alkaline Phosphatase 80 (38-126) U/L Troponin I (0.000-0.034) ng/mL NT-Pro-B Natriuret Pep pg/mL Total Protein 7.2 (6.3-8.2) g/dL Albumin 3.7 (3.5-5.0) g/dL Lipase 15 L (23-300) U/L Urine Color Urine Appearance (Clear) Urine pH (5.0-8.0) Ur Specific [place] (1.001-1.035) Urine Protein (Negative) Urine Glucose (UA) (Negative) Urine Ketones (Negative) Urine Blood (Negative) Urine Nitrite (Negative) Urine Bilirubin (Negative) Urine Urobilinogen (<2.0) mg/dL Ur Leukocyte Esterase (Negative) Urine RBC (0-5) /hpf Urine WBC (0-5) /hpf Ur Squamous Epith Cells (0-4) /hpf Amorphous Sediment (None) /hpf Urine Bacteria (None) /hpf Urine Mucus (None) /hpf Influenza Type A (PCR) (Not Detectd) Influenza Type B (PCR) (Not Detectd) RSV (PCR) (Not Detectd) SARS-CoV-2 (PCR) (Not Detectd) 05/17/22 05/17/22 05/17/22 Range/Units 00:10 00:10 00:10 WBC (3.8-10.6) k/uL RBC (3.80-5.40) m/uL Hgb (11.4-16.0) gm/dL Hct (34.0-46.0) % MCV (80.0-100.0) fL MCH (25.0-35.0) pg MCHC (31.0-37.0) g/dL RDW (11.5-15.5) % Plt Count (150-450) k/uL MPV Neutrophils % % Lymphocytes % % Monocytes % % Eosinophils % % Basophils % % Neutrophils # (1.3-7.7) k/uL Lymphocytes # (1.0-4.8) k/uL Monocytes # (0-1.0) k/uL Eosinophils # (0-0.7) k/uL Basophils # (0-0.2) k/uL Hypochromasia Anisocytosis PT (9.0-12.0) sec INR (<1.2) APTT (22.0-30.0) sec Sodium (137-145) mmol/L Potassium (3.5-5.1) mmol/L Chloride (98-107) mmol/L Carbon Dioxide (22-30) mmol/L Anion Gap mmol/L BUN (7-17) mg/dL Creatinine (0.52-1.04) mg/dL Est GFR (CKD-EPI)AfAm (>60 ml/min/1.73 sqM) Est GFR (CKD-EPI)NonAf (>60 ml/min/1.73 sqM) Glucose (74-99) mg/dL Calcium (8.4-10.2) mg/dL Magnesium (1.6-2.3) mg/dL Total Bilirubin (0.2-1.3) mg/dL AST (14-36) U/L ALT (4-34) U/L Alkaline Phosphatase (38-126) U/L Troponin I 0.019 (0.000-0.034) ng/mL NT-Pro-B Natriuret Pep 1430 pg/mL Total Protein (6.3-8.2) g/dL Albumin (3.5-5.0) g/dL Lipase (23-300) U/L Urine Color Urine Appearance (Clear) Urine pH (5.0-8.0) Ur Specific [place] (1.001-1.035) Urine Protein (Negative) Urine Glucose (UA) (Negative) Urine Ketones (Negative) Urine Blood (Negative) Urine Nitrite (Negative) Urine Bilirubin (Negative) Urine Urobilinogen (<2.0) mg/dL Ur Leukocyte Esterase (Negative) Urine RBC (0-5) /hpf Urine WBC (0-5) /hpf Ur Squamous Epith Cells (0-4) /hpf Amorphous Sediment (None) /hpf Urine Bacteria (None) /hpf Urine Mucus (None) /hpf Influenza Type A (PCR) Not Detected (Not Detectd) Influenza Type B (PCR) Not Detected (Not Detectd) RSV (PCR) Not Detected (Not Detectd) SARS-CoV-2 (PCR) Not Detected (Not Detectd) 05/17/22 Range/Units 02:48 WBC (3.8-10.6) k/uL RBC (3.80-5.40) m/uL Hgb (11.4-16.0) gm/dL Hct (34.0-46.0) % MCV (80.0-100.0) fL MCH (25.0-35.0) pg MCHC (31.0-37.0) g/dL RDW (11.5-15.5) % Plt Count (150-450) k/uL MPV Neutrophils % % Lymphocytes % % Monocytes % % Eosinophils % % Basophils % % Neutrophils # (1.3-7.7) k/uL Lymphocytes # (1.0-4.8) k/uL Monocytes # (0-1.0) k/uL Eosinophils # (0-0.7) k/uL Basophils # (0-0.2) k/uL Hypochromasia Anisocytosis PT (9.0-12.0) sec INR (<1.2) APTT (22.0-30.0) sec Sodium (137-145) mmol/L Potassium (3.5-5.1) mmol/L Chloride (98-107) mmol/L Carbon Dioxide (22-30) mmol/L Anion Gap mmol/L BUN (7-17) mg/dL Creatinine (0.52-1.04) mg/dL Est GFR (CKD-EPI)AfAm (>60 ml/min/1.73 sqM) Est GFR (CKD-EPI)NonAf (>60 ml/min/1.73 sqM) Glucose (74-99) mg/dL Calcium (8.4-10.2) mg/dL Magnesium (1.6-2.3) mg/dL Total Bilirubin (0.2-1.3) mg/dL AST (14-36) U/L ALT (4-34) U/L Alkaline Phosphatase (38-126) U/L Troponin I (0.000-0.034) ng/mL NT-Pro-B Natriuret Pep pg/mL Total Protein (6.3-8.2) g/dL Albumin (3.5-5.0) g/dL Lipase (23-300) U/L Urine Color Yellow Urine Appearance Cloudy H (Clear) Urine pH 7.5 (5.0-8.0) Ur Specific [place] 1.018 (1.001-1.035) Urine Protein Trace H (Negative) Urine Glucose (UA) Negative (Negative) Urine Ketones Negative (Negative) Urine Blood Negative (Negative) Urine Nitrite Negative (Negative) Urine Bilirubin Negative (Negative) Urine Urobilinogen <2.0 (<2.0) mg/dL Ur Leukocyte Esterase Small H (Negative) Urine RBC 2 (0-5) /hpf Urine WBC 8 H (0-5) /hpf Ur Squamous Epith Cells 1 (0-4) /hpf Amorphous Sediment Occasional H (None) /hpf Urine Bacteria Rare H (None) /hpf Urine Mucus Rare H (None) /hpf Influenza Type A (PCR) (Not Detectd) Influenza Type B (PCR) (Not Detectd) RSV (PCR) (Not Detectd) SARS-CoV-2 (PCR) (Not Detectd) Disposition Clinical Impression: URI (upper respiratory infection) Disposition: HOME SELF-CARE Condition: Stable Instructions (If sedation given, give patient instructions): Upper Respiratory Infection (ED) Is patient prescribed a controlled substance at d/c from ED?: No Referrals: Nicholas Hart MD [Primary Care Provider] - 1-2 days Time of Disposition: 03:30
[2022-05-17] MEDS ORDERED: GABAPENTIN 400 MG CAP PO STA (02:31)
[2022-05-17] MEDS ORDERED: HYDROcodone/APAP 7.5-325MG 1 EACH TAB PO ONE (02:31)
[2022-05-17 03:29] LABS: Amorphous Sediment,Urine Occasional /hpf; Appearance,Urine Cloudy (Clear); Bacteria,Urine Rare /hpf; Bilirubin,Urine Negative (Negative); Blood,Urine Negative (Negative); Color,Urine Yellow; Glucose,Urine (UA) Negative (Negative); Ketones,Urine Negative (Negative); Leukocyte Esterase,Urine Small (Negative); Mucus,Urine Rare /hpf; Nitrite,Urine Negative (Negative); PH, Urine 7.5 (5.0-8.0); Protein,Urine Trace (Negative); RBC,Urine 2 /hpf (0-5); Specific Gravity,Urine 1.018 (1.001-1.035); Squamous Epithelial Cell,Urine 1 /hpf (0-4); Urobilinogen,Urine <2.0 mg/dL (<2.0); WBC,Urine 8 /hpf (0-5)
[2022-05-17] MEDS ORDERED: DILTIAZEM 5 MG/ML 5 ML VIAL IVP STA (03:41)
[2022-05-17] MEDS ORDERED: ONDANSETRON 4 MG/2 ML VIAL IVP STA (08:37)
[2022-05-17] MEDS ORDERED: ACETAMINOPHEN IV (For NPO) 1,000 MG in EMPTY BAG 1 BAG IVPB STA (08:38)
--- NOTE | 2022-05-17 08:46 | ED ---
Medical Decision Making - Medical Decision Making Patient was seen last night were plans for discharge. Patient was being held for wheelchair van. Patient started feeling worse. Repeat temperature 90.9. Patient is feeling short of breath. Lung sounds with rales. EKG interpreted by myself shows A. fib with RVR, rate 123. RVH. Right axis. Septal Q waves. No acute ST change. Case was discussed with Dr. Hart who will admit his patient. Repeat labs and x-ray will be ordered. - Lab Data Result diagrams: 05/17/22 00:10 05/17/22 00:10 Lab Results 05/17/22 05/17/22 05/17/22 Range/Units 00:10 00:10 00:10 WBC 4.0 (3.8-10.6) k/uL RBC 4.02 (3.80-5.40) m/uL Hgb 10.3 L (11.4-16.0) gm/dL Hct 34.0 (34.0-46.0) % MCV 84.5 (80.0-100.0) fL MCH 25.6 (25.0-35.0) pg MCHC 30.3 L (31.0-37.0) g/dL RDW 16.9 H (11.5-15.5) % Plt Count 158 (150-450) k/uL MPV 7.0 Neutrophils % 62 % Lymphocytes % 23 % Monocytes % 8 % Eosinophils % 3 % Basophils % 0 % Neutrophils # 2.5 (1.3-7.7) k/uL Lymphocytes # 0.9 L (1.0-4.8) k/uL Monocytes # 0.3 (0-1.0) k/uL Eosinophils # 0.1 (0-0.7) k/uL Basophils # 0.0 (0-0.2) k/uL Hypochromasia Marked Anisocytosis Slight PT 12.6 H (9.0-12.0) sec INR 1.2 H (<1.2) APTT 25.7 (22.0-30.0) sec Sodium 140 (137-145) mmol/L Potassium 4.1 (3.5-5.1) mmol/L Chloride 100 (98-107) mmol/L Carbon Dioxide 35 H (22-30) mmol/L Anion Gap 5 mmol/L BUN 20 H (7-17) mg/dL Creatinine 0.77 (0.52-1.04) mg/dL Est GFR (CKD-EPI)AfAm 84 (>60 ml/min/1.73 sqM) Est GFR (CKD-EPI)NonAf 73 (>60 ml/min/1.73 sqM) Glucose 215 H (74-99) mg/dL Calcium 8.9 (8.4-10.2) mg/dL Magnesium 1.8 (1.6-2.3) mg/dL Total Bilirubin 0.5 (0.2-1.3) mg/dL AST 28 (14-36) U/L ALT 19 (4-34) U/L Alkaline Phosphatase 80 (38-126) U/L Troponin I (0.000-0.034) ng/mL NT-Pro-B Natriuret Pep pg/mL Total Protein 7.2 (6.3-8.2) g/dL Albumin 3.7 (3.5-5.0) g/dL Lipase 15 L (23-300) U/L Urine Color Urine Appearance (Clear) Urine pH (5.0-8.0) Ur Specific [place] (1.001-1.035) Urine Protein (Negative) Urine Glucose (UA) (Negative) Urine Ketones (Negative) Urine Blood (Negative) Urine Nitrite (Negative) Urine Bilirubin (Negative) Urine Urobilinogen (<2.0) mg/dL Ur Leukocyte Esterase (Negative) Urine RBC (0-5) /hpf Urine WBC (0-5) /hpf Ur Squamous Epith Cells (0-4) /hpf Amorphous Sediment (None) /hpf Urine Bacteria (None) /hpf Urine Mucus (None) /hpf Influenza Type A (PCR) (Not Detectd) Influenza Type B (PCR) (Not Detectd) RSV (PCR) (Not Detectd) SARS-CoV-2 (PCR) (Not Detectd) 05/17/22 05/17/22 05/17/22 Range/Units 00:10 00:10 00:10 WBC (3.8-10.6) k/uL RBC (3.80-5.40) m/uL Hgb (11.4-16.0) gm/dL Hct (34.0-46.0) % MCV (80.0-100.0) fL MCH (25.0-35.0) pg MCHC (31.0-37.0) g/dL RDW (11.5-15.5) % Plt Count (150-450) k/uL MPV Neutrophils % % Lymphocytes % % Monocytes % % Eosinophils % % Basophils % % Neutrophils # (1.3-7.7) k/uL Lymphocytes # (1.0-4.8) k/uL Monocytes # (0-1.0) k/uL Eosinophils # (0-0.7) k/uL Basophils # (0-0.2) k/uL Hypochromasia Anisocytosis PT (9.0-12.0) sec INR (<1.2) APTT (22.0-30.0) sec Sodium (137-145) mmol/L Potassium (3.5-5.1) mmol/L Chloride (98-107) mmol/L Carbon Dioxide (22-30) mmol/L Anion Gap mmol/L BUN (7-17) mg/dL Creatinine (0.52-1.04) mg/dL Est GFR (CKD-EPI)AfAm (>60 ml/min/1.73 sqM) Est GFR (CKD-EPI)NonAf (>60 ml/min/1.73 sqM) Glucose (74-99) mg/dL Calcium (8.4-10.2) mg/dL Magnesium (1.6-2.3) mg/dL Total Bilirubin (0.2-1.3) mg/dL AST (14-36) U/L ALT (4-34) U/L Alkaline Phosphatase (38-126) U/L Troponin I 0.019 (0.000-0.034) ng/mL NT-Pro-B Natriuret Pep 1430 pg/mL Total Protein (6.3-8.2) g/dL Albumin (3.5-5.0) g/dL Lipase (23-300) U/L Urine Color Urine Appearance (Clear) Urine pH (5.0-8.0) Ur Specific [place] (1.001-1.035) Urine Protein (Negative) Urine Glucose (UA) (Negative) Urine Ketones (Negative) Urine Blood (Negative) Urine Nitrite (Negative) Urine Bilirubin (Negative) Urine Urobilinogen (<2.0) mg/dL Ur Leukocyte Esterase (Negative) Urine RBC (0-5) /hpf Urine WBC (0-5) /hpf Ur Squamous Epith Cells (0-4) /hpf Amorphous Sediment (None) /hpf Urine Bacteria (None) /hpf Urine Mucus (None) /hpf Influenza Type A (PCR) Not Detected (Not Detectd) Influenza Type B (PCR) Not Detected (Not Detectd) RSV (PCR) Not Detected (Not Detectd) SARS-CoV-2 (PCR) Not Detected (Not Detectd) 05/17/22 Range/Units 02:48 WBC (3.8-10.6) k/uL RBC (3.80-5.40) m/uL Hgb (11.4-16.0) gm/dL Hct (34.0-46.0) % MCV (80.0-100.0) fL MCH (25.0-35.0) pg MCHC (31.0-37.0) g/dL RDW (11.5-15.5) % Plt Count (150-450) k/uL MPV Neutrophils % % Lymphocytes % % Monocytes % % Eosinophils % % Basophils % % Neutrophils # (1.3-7.7) k/uL Lymphocytes # (1.0-4.8) k/uL Monocytes # (0-1.0) k/uL Eosinophils # (0-0.7) k/uL Basophils # (0-0.2) k/uL Hypochromasia Anisocytosis PT (9.0-12.0) sec INR (<1.2) APTT (22.0-30.0) sec Sodium (137-145) mmol/L Potassium (3.5-5.1) mmol/L Chloride (98-107) mmol/L Carbon Dioxide (22-30) mmol/L Anion Gap mmol/L BUN (7-17) mg/dL Creatinine (0.52-1.04) mg/dL Est GFR (CKD-EPI)AfAm (>60 ml/min/1.73 sqM) Est GFR (CKD-EPI)NonAf (>60 ml/min/1.73 sqM) Glucose (74-99) mg/dL Calcium (8.4-10.2) mg/dL Magnesium (1.6-2.3) mg/dL Total Bilirubin (0.2-1.3) mg/dL AST (14-36) U/L ALT (4-34) U/L Alkaline Phosphatase (38-126) U/L Troponin I (0.000-0.034) ng/mL NT-Pro-B Natriuret Pep pg/mL Total Protein (6.3-8.2) g/dL Albumin (3.5-5.0) g/dL Lipase (23-300) U/L Urine Color Yellow Urine Appearance Cloudy H (Clear) Urine pH 7.5 (5.0-8.0) Ur Specific [place] 1.018 (1.001-1.035) Urine Protein Trace H (Negative) Urine Glucose (UA) Negative (Negative) Urine Ketones Negative (Negative) Urine Blood Negative (Negative) Urine Nitrite Negative (Negative) Urine Bilirubin Negative (Negative) Urine Urobilinogen <2.0 (<2.0) mg/dL Ur Leukocyte Esterase Small H (Negative) Urine RBC 2 (0-5) /hpf Urine WBC 8 H (0-5) /hpf Ur Squamous Epith Cells 1 (0-4) /hpf Amorphous Sediment Occasional H (None) /hpf Urine Bacteria Rare H (None) /hpf Urine Mucus Rare H (None) /hpf Influenza Type A (PCR) (Not Detectd) Influenza Type B (PCR) (Not Detectd) RSV (PCR) (Not Detectd) SARS-CoV-2 (PCR) (Not Detectd) Disposition Clinical Impression: Dyspnea Disposition: ADMITTED IP TO THIS [facility] Condition: Stable Instructions (If sedation given, give patient instructions): Upper Respiratory Infection (ED) Is patient prescribed a controlled substance at d/c from ED?: No Referrals: Nicholas Hart MD [Primary Care Provider] - 1-2 days
[2022-05-17] MEDS ORDERED: ACETAMINOPHEN TAB 325 MG TAB PO PRN (08:47)
[2022-05-17] MEDS ORDERED: IBUPROFEN 400 MG TAB PO PRN (08:47)
[2022-05-17] MEDS ORDERED: NALOXONE 0.4 MG/ML 1 ML VIAL IV PRN (08:47)
[2022-05-17] MEDS ORDERED: ONDANSETRON 4 MG/2 ML VIAL IVP PRN (08:47)
[2022-05-17 09:34] LABS: Anisocytosis Slight; Basophils % (A) 0 %; Eosinophils # (A) 0.1 k/uL (0-0.7); Eosinophils % (A) 1 %; HCT 33.6 % (34.0-46.0); HGB 10.3 gm/dL (11.4-16.0); Hypochromasia Marked; Lymphocytes # (A) 0.7 k/uL (1.0-4.8); Lymphocytes % (A) 14 %; MCH 25.7 pg (25.0-35.0); MCHC 30.8 g/dL (31.0-37.0); MCV 83.3 fL (80.0-100.0); Mean Platelet Volume 7.2; Monocytes # (A) 0.3 k/uL (0-1.0); Monocytes % (A) 6 %; Neutrophils # (A) 3.9 k/uL (1.3-7.7); Neutrophils % (A) 76 %; Platelet Count 177 k/uL (150-450); RBC 4.03 m/uL (3.80-5.40); WBC 5.2 k/uL (3.8-10.6)
--- NOTE | 2022-05-17 09:44 | XR ---
EXAMINATION TYPE: XR chest 2V DATE OF EXAM: 05/17/2022 COMPARISON: 05/17/2022 earlier exam INDICATION: Difficulty breathing TECHNIQUE: Frontal and lateral views of the chest are obtained. FINDINGS: The heart size is mildly prominent. The pulmonary vasculature is prominent. Mild increased lung markings are present. Correlate for pulmonary edema. IMPRESSION: 1. Clinical correlation recommended for developing congestive heart failure. Follow-up is recommended .
[2022-05-17] MEDS ORDERED: FUROSEMIDE 10 MG/ML 4 ML VIAL IV STA (09:48)
[2022-05-17 09:52] LABS: INR 1.2 (<1.2); Prothrombin Time 12.4 sec (9.0-12.0)
[2022-05-17 10:06] LABS: ALT 18 U/L (4-34); AST 30 U/L (14-36); African American GFR (CKD) >90 (>60 ml/min/1.73 sqM); Albumin 3.6 g/dL (3.5-5.0); Alkaline Phosphatase 77 U/L (38-126); Anion Gap 8 mmol/L; Blood Urea Nitrogen 17 mg/dL (7-17); Calcium 8.9 mg/dL (8.4-10.2); Carbon Dioxide 33 mmol/L (22-30); Chloride 99 mmol/L (98-107); Glucose 149 mg/dL (74-99); Non-African American GFR(CKD) 83 (>60 ml/min/1.73 sqM); Potassium 3.8 mmol/L (3.5-5.1); Sodium 140 mmol/L (137-145); Total Bilirubin 0.8 mg/dL (0.2-1.3); Total Protein 7.2 g/dL (6.3-8.2)
--- NOTE | 2022-05-17 10:56 | CT ---
EXAMINATION TYPE: CT angio chest CT DLP: 742.8 mGycm, Automated exposure control for dose reduction was used. DATE OF EXAM: 05/17/2022 10:41 AM COMPARISON: Chest radiograph from same day. CT chest abdomen pelvis 09/28/2018 CLINICAL INDICATION:Female, 81 years old with history of dyspnea; Difficulty breathing. TECHNIQUE/CONTRAST: CTA scan of the thorax is performed with IV Contrast, patient injected with 100ml mL of Isovue 370, p ulmonary embolism protocol. MIP images are created and reviewed. FINDINGS: Pulmonary Artery: There is no evidence for a filling defect within the pulmonary vasculature to sugge st acute pulmonary embolism. The pulmonary artery is of normal size. Lungs/Pleura: Biapical pleural-parenchymal scarring. Patchy groundglass opacities demonstrated within the right upper lobe. No pneumothorax or pleural effusion. Airway: Large airways are patent. Heart: Heart is borderline prominent in size. Dense mitral annulus calcifications. Moderate coronary calcifications.No pericardial effusion. Vasculature: No evidence of aortic aneurysm. Atherosclerotic calcification of the aorta and its branc hes. Mediastinum: Mildly enlarged right hilar lymph nodes measuring up to 1.4 cm short axis. Musculoskeletal: Central compression fractures involving the superior endplate of T11 and L1 which is new from prior examination 2019. There is approximately 10% height loss and no retropulsion. Soft Tissues: Unremarkable. Lower neck: No significant findings. Upper Abdomen: Trace perihepatic ascites.. IMPRESSION: 1. No evidence of pulmonary embolism. 2. Patchy groundglass pulmonary opacities within the right upper lobe suggestive of atypical pulmonar y infection. 3. Reactive right hilar lymphadenopathy likely secondary to #2. 4. Age indeterminate central compression fractures involving the T11 and L1 vertebral bodies which is new from prior examination 2019. Correlation with point tenderness is recommended. 5. Trace perihepatic ascites.
[2022-05-17] MEDS ORDERED: guaiFENesin SYRUP 100MG/5ML 200 MG/10 ML CUP PO PRN (19:10)
[2022-05-17] MEDS ORDERED: NITROGLYCERIN SL TABS 0.4 MG TAB SUBLINGUAL PRN (21:53)
[2022-05-17] MEDS: GABAPENTIN 400 MG CAP PO SCH (22:17)
[2022-05-17] MEDS: methocarbamoL 500 MG TAB PO SCH (22:17)
[2022-05-17] MEDS: HYDROcodone/APAP 7.5-325MG 1 EACH TAB PO SCH (22:18)
[2022-05-17] MEDS: VERAPAMIL SR 180 MG TABLET.ER PO SCH (22:21)
[2022-05-17] MEDS: LEVOTHYROXINE 137 MCG TAB PO SCH (22:21)
[2022-05-17] MEDS: LATANOPROST 0.005% OPHTH DROPS 2.5 ML BTL BOTH EYES SCH (22:21)
[2022-05-17] MEDS: INSULIN ASPART (NovoLOG) 100 UNIT/ML VIAL SQ SCH (22:24)
[2022-05-17 22:26] LABS: Glucose,Whole Blood 198 mg/dL (70-110)
--- NOTE | 2022-05-17 22:28 | P.HPIM ---
History of Present Illness H&P Date: 05/17/22 Chief Complaint: Weakness and shortness of breath. This is a history of physical and 81-year-old white female who was recently discharged for congestive heart failure and she was placed on Bumex and was doing quite well. She actually saw me for her posthospital follow-up and was doing quite well. She states that however that over the last 24 hours she has been having significant mobility issues and not feeling well and having breathing issues. No overt chest pressure. She has multiple problems including history of atrial fibrillation, history of heart failure, COPD diabetes and fibromyalgia. Her and she have been struggling at home as they age. No voiding difficulties. However appetite has been noted to be poor. Review of Systems Constitutional: Denies chills, Denies fever Ears, nose, mouth and throat: Denies headache, Denies sore throat Cardiovascular: Reports as per HPI Respiratory: Denies cough Gastrointestinal: Denies abdominal pain, Denies diarrhea, Denies nausea, Denies vomiting Genitourinary: Denies dysuria, Denies hematuria Musculoskeletal: Denies myalgias Integumentary: Denies pruritus, Denies rash Past Medical History Past Medical History: Atrial Fibrillation, Coronary Artery Disease (CAD), Cancer, Diabetes Mellitus, Hyperlipidemia, Hypertension, Musculoskeletal Disorder, Neurologic Disorder, Osteoarthritis (OA), Pneumonia, Renal Disease, Rheumatoid Arthritis (RA), Skin Disorder, Thyroid Disorder Additional Past Medical History / Comment(s): Morbid obesity, chronic atrial fibrillation, diabetes mellitus type 2, hypertension, hyperlipidemia, spinal stenosis, osteoarthritis, hypothyroidism, hypertension, history of skin melanoma, history of bursitis with MRSA post I&D, rheumatoid arthritis, Sjogren's disease, 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 without any indication of ILD related to RA, Fall on July 22 transfer to [facility] for MRI, then Fall on 11/16/21 History of Any Multi-Drug Resistant Organisms: MRSA Date of last positivie culture/infection: 01/19/22 MDRO Source:: Wound Past Surgical History: Back Surgery, Breast Surgery, Cholecystectomy, Heart Catheterization, Joint Replacement, Orthopedic Surgery Additional Past Surgical History / Comment(s): Bilateral cataracts with lens implants, arthroscopies to lt wrist, gualberto knees, gualberto ankles, gualberto hips, lt hip replacment and redone, L/R shoulder sxs, rt breast bx-benign, egd/colonoscopy, skin cancer removal L arm, Lumbar fixnation possible broken Past Anesthesia/Blood Transfusion Reactions: No Reported Reaction Additional Past Anesthesia/Blood Transfusion Reaction / Comment(s): Pt has been told not to have anesthesia metabolized by the kidneys and has neurologic Sjogren's with post anesthesia paralysis. Past Psychological History: No Psychological Hx Reported Smoking Status: Former smoker Past Alcohol Use History: None Reported Past Drug Use History: None Reported - Past Family History Mother Family Medical History: CVA/TIA Additional Family Medical History / Comment(s): RUPTURED BOWEL Father Family Medical History: Cancer, Pneumonia Additional Family Medical History / Comment(s): ASPIRATIVE PNA Sister(s) Additional Family Medical History / Comment(s): at age 34 with lupus Medications and Allergies Home Medications Medication Instructions Recorded Confirmed Type Latanoprost [Xalatan 0.005%] 1 drop BOTH EYES HS 08/11/17 05/17/22 History predniSONE 5 mg PO DAILY 07/23/21 05/17/22 History Magnesium Oxide 400 mg PO DAILY 08/30/21 05/17/22 History methocarbamoL [Methocarbamol] 500 mg PO HS 08/30/21 05/17/22 History Calcium Citrate/Vitamin D3 1 tab PO BID@1000,1730 11/16/21 05/17/22 History [Citracal + D Maximum Caplet] Digoxin [Lanoxin] 125 mcg PO Q2D@1000 11/16/21 05/17/22 History Levothyroxine Sodium [Synthroid] 137 mcg PO HS 11/16/21 05/17/22 History Nitroglycerin Sl Tabs [Nitrostat] 0.4 mg SL Q5M PRN 11/16/21 05/17/22 History Adalimumab [Humira(Cf) Pen] 40 mg SQ FR 01/09/22 05/17/22 History Apixaban [Eliquis] 5 mg PO BID@1000,1730 05/02/22 05/17/22 History Gabapentin [Neurontin] 400 mg PO Q6H 05/02/22 05/17/22 History HYDROcodone/APAP 7.5-325MG [[place] 1 tab PO Q6H 05/02/22 05/17/22 History 7.5-325] INSULIN LISPRO (HumaLOG) [humaLOG] 4 units SQ AC-LUNCH 05/02/22 05/17/22 History INSULIN LISPRO (HumaLOG) [humaLOG] See Protocol SQ AC-TID 05/02/22 05/17/22 History INSULIN LISPRO (humaLOG) [humaLOG] 8 units SQ AC-SUPPER 05/02/22 05/17/22 History Multivit-Min/FA/Lycopen/Lutein 1 tab PO DAILY 05/02/22 05/17/22 History [Centrum Silver Tablet] Tolterodine Tartrate [Tolterodine 4 mg PO DAILY 05/02/22 05/17/22 History Tartrate ER] metFORMIN HCL [Glucophage] 500 mg PO DAILY@1730 05/02/22 05/17/22 History Bumetanide [BUMEX] 1 mg PO DAILY #30 tab 05/03/22 05/17/22 Rx Verapamil Sr [Isoptin Sr] 180 mg PO DAILY #30 tab 05/03/22 05/17/22 Rx Insulin Glargine [Lantus Vial] 14 unit SQ HS 05/17/22 05/17/22 History Insulin Glargine [Lantus Vial] 25 unit SQ DAILY@0700 05/17/22 05/17/22 History Allergies Allergy/AdvReac Type Severity Reaction Status Date / Time adhesive Allergy Rash/Hives Verified 05/17/22 09:34 cephalexin [From Keflex] Allergy Rash/Hives Verified 05/17/22 09:34 grass pollen Allergy Unknown Verified 05/17/22 09:34 mold Allergy Unknown Verified 05/17/22 09:34 Sulfa (Sulfonamide Allergy Rash/Hives Verified 05/17/22 09:34 Antibiotics) newspaper ink Allergy Mild Unknown Uncoded 05/02/22 16:22 Physical Exam Vitals: Vital Signs Temp Pulse Resp BP Pulse Ox 05/17/22 22:05 83 20 161/82 95 05/17/22 16:27 98.4 F 75 18 133/70 95 05/17/22 14:13 98.0 F 87 18 127/65 96 05/17/22 12:06 87 20 102/68 96 05/17/22 10:45 98.5 F 94 18 143/73 97 05/17/22 09:00 99.9 F H 89 20 148/87 92 L 05/17/22 08:50 133 H 22 157/96 89 L 05/17/22 04:43 92 20 166/82 96 05/17/22 03:39 122 H 20 177/108 96 05/17/22 01:42 102 H 22 183/92 100 05/16/22 23:12 98.3 F 105 H 16 183/82 99 Intake and Output 05/17/22 05/17/22 05/17/22 06:59 14:59 22:59 Other: Weight 141.067 kg - Constitutional General appearance: obese - EENT Eyes: EOMI - Neck Neck: no lymphadenopathy - Respiratory Respiratory: bilateral: diminished (congestion) - Cardiovascular Rhythm: irregularly irregular Heart sounds: normal: S1, S2 Abnormal Heart Sounds: no S3 Gallop - Gastrointestinal General gastrointestinal: soft, no tenderness - Integumentary Integumentary: no cellulitis, no jaundiced - Neurologic No focal deficits. - Musculoskeletal Musculoskeletal: generalized weakness - Psychiatric Psychiatric: A&O x's 3 Results CBC & Chem 7: 05/17/22 09:20 05/17/22 09:20 Labs: Abnormal Lab Results - Last 24 Hours (Table) 05/17/22 05/17/22 05/17/22 Range/Units 00:10 00:10 00:10 Hgb 10.3 L (11.4-16.0) gm/dL Hct (34.0-46.0) % MCHC 30.3 L (31.0-37.0) g/dL RDW 16.9 H (11.5-15.5) % Lymphocytes # 0.9 L (1.0-4.8) k/uL PT 12.6 H (9.0-12.0) sec INR 1.2 H (<1.2) D-Dimer (<0.60) mg/L FEU Carbon Dioxide 35 H (22-30) mmol/L BUN 20 H (7-17) mg/dL Glucose 215 H (74-99) mg/dL Troponin I (0.000-0.034) ng/mL Lipase 15 L (23-300) U/L Urine Appearance (Clear) Urine Protein (Negative) Ur Leukocyte Esterase (Negative) Urine WBC (0-5) /hpf Amorphous Sediment (None) /hpf Urine Bacteria (None) /hpf Urine Mucus (None) /hpf 05/17/22 05/17/22 05/17/22 Range/Units 02:48 09:20 09:20 Hgb 10.3 L (11.4-16.0) gm/dL Hct 33.6 L (34.0-46.0) % MCHC 30.8 L (31.0-37.0) g/dL RDW 17.0 H (11.5-15.5) % Lymphocytes # 0.7 L (1.0-4.8) k/uL PT 12.4 H (9.0-12.0) sec INR 1.2 H (<1.2) D-Dimer 1.10 H (<0.60) mg/L FEU Carbon Dioxide (22-30) mmol/L BUN (7-17) mg/dL Glucose (74-99) mg/dL Troponin I (0.000-0.034) ng/mL Lipase (23-300) U/L Urine Appearance Cloudy H (Clear) Urine Protein Trace H (Negative) Ur Leukocyte Esterase Small H (Negative) Urine WBC 8 H (0-5) /hpf Amorphous Sediment Occasional H (None) /hpf Urine Bacteria Rare H (None) /hpf Urine Mucus Rare H (None) /hpf 05/17/22 05/17/22 Range/Units 09:20 09:20 Hgb (11.4-16.0) gm/dL Hct (34.0-46.0) % MCHC (31.0-37.0) g/dL RDW (11.5-15.5) % Lymphocytes # (1.0-4.8) k/uL PT (9.0-12.0) sec INR (<1.2) D-Dimer (<0.60) mg/L FEU Carbon Dioxide 33 H (22-30) mmol/L BUN (7-17) mg/dL Glucose 149 H (74-99) mg/dL Troponin I 0.041 H* (0.000-0.034) ng/mL Lipase (23-300) U/L Urine Appearance (Clear) Urine Protein (Negative) Ur Leukocyte Esterase (Negative) Urine WBC (0-5) /hpf Amorphous Sediment (None) /hpf Urine Bacteria (None) /hpf Urine Mucus (None) /hpf Assessment and Plan (1) Dyspnea Current Visit: Yes Status: Acute Code(s): R06.00 - DYSPNEA, UNSPECIFIED SNOMED Code(s): 011832099 (2) Atrial fibrillation Current Visit: No Status: Acute Code(s): I48.91 - UNSPECIFIED ATRIAL FIBRILLATION SNOMED Code(s): 38555610 (3) CAD (coronary artery disease) Current Visit: No Status: Acute Code(s): I25.10 - ATHSCL HEART DISEASE OF [place] CORONARY ARTERY W/O ANG PCTRS SNOMED Code(s): 14225710 (4) Chronic atrial fibrillation Current Visit: No Status: Acute Code(s): I48.2 - CHRONIC ATRIAL FIBRILLATION * DO NOT USE * SNOMED Code(s): 918735087 (5) Congestive heart failure Current Visit: No Status: Acute Code(s): I50.9 - HEART FAILURE, UNSPECIFIED SNOMED Code(s): 86721041 (6) Diabetes Current Visit: No Status: Acute Code(s): E11.9 - TYPE 2 DIABETES MELLITUS WITHOUT COMPLICATIONS SNOMED Code(s): 49655468 (7) Elevated troponin Current Visit: No Status: Acute Code(s): R74.8 - ABNORMAL LEVELS OF OTHER SERUM ENZYMES SNOMED Code(s): 167384064 (8) Generalized weakness Current Visit: No Status: Acute Code(s): R53.1 - WEAKNESS SNOMED Code(s): 65875374 (9) History of lumbar fusion Current Visit: No Status: Acute Code(s): Z98.1 - ARTHRODESIS STATUS SNOMED Code(s): 13484447792474 (10) Hyperlipidemia Current Visit: No Status: Acute Code(s): E78.5 - HYPERLIPIDEMIA, UNSPECIFIED SNOMED Code(s): 22654294 (11) Hypertension Current Visit: No Status: Acute Code(s): I10 - ESSENTIAL (PRIMARY) H YPERTENSION SNOMED Code(s): 28937403 (12) Hypomagnesemia Current Visit: No Status: Acute Code(s): E83.42 - HYPOMAGNESEMIA SNOMED Code(s): 782732906 (13) Hypothyroidism Current Visit: No Status: Acute Code(s): E03.9 - HYPOTHYROIDISM, UNSPECIFIED SNOMED Code(s): 18385951 (14) Inability to perform activities of daily living Current Visit: No Status: Acute Code(s): Z78.9 - OTHER SPECIFIED HEALTH STATUS SNOMED Code(s): 783545957 (15) Insulin dependent diabetes mellitus Current Visit: No Status: Acute Code(s): JCC1301 - SNOMED Code(s): 97237662 (16) Pulmonary hypertension Current Visit: No Status: Acute Code(s): I27.20 - PULMONARY HYPERTENSION, UNSPECIFIED SNOMED Code(s): 38706981 Plan: Reconcile home medications. Check CBC CMP and magnesium in a.m. Elevated troponin again. We will go ahead and ask cardiology for input. She has chronic back pain and limited mobility. Consider this and physical therapy. Discharge planning. Prognosis is guarded secondary to advancing age and multiple comorbidities. See orders otherwise. Time with Patient: Greater than 30
[2022-05-18] MEDS: HYDROcodone/APAP 7.5-325MG 1 EACH TAB PO SCH ×4 (03:42→21:11)
[2022-05-18] MEDS: GABAPENTIN 400 MG CAP PO SCH ×4 (03:42→21:10)
[2022-05-18] MEDS: MULTIVITAMINS, THERA 1 EACH TAB PO SCH (08:22)
[2022-05-18] MEDS ORDERED: DEXTROSE 50% SYRINGE 50 ML IVP PRN ×2 (08:25)
[2022-05-18] MEDS: APIXABAN 5 MG TAB PO SCH ×2 (08:29→20:48)
[2022-05-18] MEDS: LORATADINE 10 MG TAB PO SCH ×2 (08:29→08:30)
[2022-05-18] MEDS: MAGNESIUM OXIDE 400 MG TAB PO SCH (08:30)
[2022-05-18] MEDS: CALCIUM CARB-VIT D 500 MG-5 MCG TAB PO SCH ×2 (08:30→20:49)
[2022-05-18] MEDS: FUROSEMIDE 10 MG/ML 4 ML VIAL IV SCH ×2 (08:31→20:49)
--- NOTE | 2022-05-18 08:31 | P.PN ---
Subjective Principal diagnosis: Acute on chronic congestive heart failure This is an 81-year-old white female with known history of atrial fibrillation and congestive heart failure. She's been readmitted for such and feeling much better. Echo is pending. No new voiding difficulties. No overt chest pressure or dyspnea. I do suspect she is having difficulty with her ADLs due to her heart failure. Her also struggling to keep the household appropriate. No diarrhea stated. Objective - Vital Signs Vital signs: Vital Signs Temp 98.5 F 05/18/22 01:56 Pulse 72 05/18/22 07:33 Resp 18 05/18/22 07:33 BP 132/76 05/18/22 05:08 Pulse Ox 99 05/18/22 07:33 FiO2 - Constitutional General appearance: Present: no acute distress, obese - EENT Eyes: Absent: abnormal pupil - Neck Neck: Absent: lymphadenopathy - Respiratory Respiratory: bilateral: rhonchi - Cardiovascular Rhythm: irregularly irregular Heart sounds: normal: S1, S2 Abnormal Heart Sounds: Absent: S3 Gallop - Gastrointestinal General gastrointestinal: Present: soft. Absent: tenderness - Integumentary Integumentary: Absent: cellulitis - Musculoskeletal Musculoskeletal: Present: generalized weakness - Psychiatric Psychiatric: Present: A&O x's 3, appropriate affect - Labs CBC & Chem 7: 05/17/22 09:20 05/17/22 09:20 Labs: Abnormal Lab Results - Last 24 Hours (Table) 05/17/22 05/17/22 05/17/22 Range/Units 09:20 09:20 09:20 Hgb 10.3 L (11.4-16.0) gm/dL Hct 33.6 L (34.0-46.0) % MCHC 30.8 L (31.0-37.0) g/dL RDW 17.0 H (11.5-15.5) % Lymphocytes # 0.7 L (1.0-4.8) k/uL PT 12.4 H (9.0-12.0) sec INR 1.2 H (<1.2) D-Dimer 1.10 H (<0.60) mg/L FEU Carbon Dioxide 33 H (22-30) mmol/L Glucose 149 H (74-99) mg/dL POC Glucose (mg/dL) (70-110) mg/dL Troponin I (0.000-0.034) ng/mL 05/17/22 05/17/22 Range/Units 09:20 22:22 Hgb (11.4-16.0) gm/dL Hct (34.0-46.0) % MCHC (31.0-37.0) g/dL RDW (11.5-15.5) % Lymphocytes # (1.0-4.8) k/uL PT (9.0-12.0) sec INR (<1.2) D-Dimer (<0.60) mg/L FEU Carbon Dioxide (22-30) mmol/L Glucose (74-99) mg/dL POC Glucose (mg/dL) 198 H (70-110) mg/dL Troponin I 0.041 H* (0.000-0.034) ng/mL Assessment and Plan (1) Dyspnea Current Visit: Yes Status: Acute Code(s): R06.00 - DYSPNEA, UNSPECIFIED SNOMED Code(s): 677718416 (2) Atrial fibrillation Current Visit: No Status: Acute Code(s): I48.91 - UNSPECIFIED ATRIAL FIBRILLATION SNOMED Code(s): 07924854 (3) CAD (coronary artery disease) Current Visit: No Status: Acute Code(s): I25.10 - ATHSCL HEART DISEASE OF [place] CORONARY ARTERY W/O ANG PCTRS SNOMED Code(s): 13741396 (4) Chronic atrial fibrillation Current Visit: No Status: Acute Code(s): I48.2 - CHRONIC ATRIAL FIBRILLATION * DO NOT USE * SNOMED Code(s): 530131437 (5) Congestive heart failure Current Visit: No Status: Acute Code(s): I50.9 - HEART FAILURE, UNSPECIFIED SNOMED Code(s): 58703237 (6) Diabetes Current Visit: No Status: Acute Code(s): E11.9 - TYPE 2 DIABETES MELLITUS WITHOUT COMPLICATIONS SNOMED Code(s): 10497059 (7) Elevated troponin Current Visit: No Status: Acute Code(s): R74.8 - ABNORMAL LEVELS OF OTHER SERUM ENZYMES SNOMED Code(s): 363884123 (8) Generalized weakness Current Visit: No Status: Acute Code(s): R53.1 - WEAKNESS SNOMED Code(s): 07097642 (9) History of lumbar fusion Current Visit: No Status: Acute Code(s): Z98.1 - ARTHRODESIS STATUS SNOMED Code(s): 99203211027562 (10) Hyperlipidemia Current Visit: No Status: Acute Code(s): E78.5 - HYPERLIPIDEMIA, UNSPECIFIED SNOMED Code(s): 02057530 (11) Hypertension Current Visit: No Status: Acute Code(s): I10 - ESSENTIAL (PRIMARY) HYPERTENSION SNOMED Code(s): 44416466 (12) Hypomagnesemia Current Visit: No Status: Acute Code(s): E83.42 - HYPOMAGNESEMIA SNOMED Code(s): 355504359 (13) Hypothyroidism Current Visit: No Status: Acute Code(s): E03.9 - HYPOTHYROIDISM, UNSPECIFIED SNOMED Code(s): 72919258 (14) Inability to perform activities of daily living Current Visit: No Status: Acute Code(s): Z78.9 - OTHER SPECIFIED HEALTH STATUS SNOMED Code(s): 313466569 (15) Insulin dependent diabetes mellitus Current Visit: No Status: Acute Code(s): OIN7517 - SNOMED Code(s): 03424432 (16) Pulmonary hypertension Current Visit: No Status: Acute Code(s): I27.20 - PULMONARY HYPERTENSION, UNSPECIFIED SNOMED Code(s): 20149980 Plan: Reconcile home medications. Check CBC CMP and magnesium in a.m. Elevated troponin again. We will go ahead and ask cardiology for input. She has chronic back pain and limited mobility. Consider this and physical therapy. Discharge planning. Prognosis is guarded secondary to advancing age and multiple comorbidities. See orders otherwise.
[2022-05-18] MEDS ORDERED: BUMETANIDE 1 MG TAB PO SCH (09:00)
[2022-05-18 09:02] LABS: Basophils # (A) 0.02 X 10*3/uL (0.00-0.10); Basophils % (A) 0.5 %; Eosinophils # (A) 0.03 X 10*3/uL (0.04-0.35); Eosinophils % (A) 0.8 %; HCT 34.1 % (37.2-46.3); HGB 9.5 g/dL (12.0-15.0); Immature Grans, Automated 0.5 %; Lymphocytes # (A) 0.91 X 10*3/uL (0.90-5.00); Lymphocytes % (A) 23.2 %; MCH 24.1 pg (27.0-32.0); MCHC 27.9 g/dL (32.0-37.0); MCV 86.5 fL (80.0-97.0); Mean Platelet Volume 10.3 fL (9.5-12.2); Monocytes # (A) 0.43 X 10*3/uL (0.20-1.00); Monocytes % (A) 10.9 %; NRBC Per 100 WBC 0 /100 WBCS (0.0-0.0); Neutrophils # (A) 2.52 X 10*3/uL (1.80-7.70); Neutrophils % (A) 64.1 %; Platelet Count 129 X 10*3/uL (140-440); RBC 3.94 X 10*6/uL (4.10-5.20); WBC 3.93 X 10*3/uL (4.50-10.00)
[2022-05-18] MEDS: VERAPAMIL SR 180 MG TABLET.ER PO SCH (09:10)
[2022-05-18] MEDS: INSULIN DETEMIR (LEVEMIR) 100 UNIT/ML SYR SQ SCH ×2 (09:10→20:49)
[2022-05-18] MEDS: predniSONE 5 MG TAB PO SCH (09:10)
[2022-05-18] MEDS: OXYBUTYNIN 10 MG TAB.ER.24 PO SCH (09:10)
[2022-05-18 09:22] LABS: African American GFR (CKD) 72.4 (60.0-200.0); Albumin 3.6 g/dL (3.8-4.9); Albumin/Globulin Ratio 1.1 (1.60-3.17); Anion Gap 10.5 mmol/L (10.00-18.00); BUN/Creat Ratio 16.91 Ratio (12.00-20.00); Blood Urea Nitrogen 14.8 mg/dL (9.0-27.0); Calcium 8.9 mg/dL (8.7-10.3); Carbon Dioxide 29.9 mmol/L (20.0-27.5); Globulin 3.3 g/dL (1.6-3.3); Magnesium 1.9 mg/dL (1.5-2.4); Non-African American GFR(CKD) 62.5 (60.0-200.0); Potassium 3.9 mmol/L (3.5-5.5); Total Bilirubin 0.5 mg/dL (0.30-1.20); Total Protein 6.9 g/dL (6.2-8.2)
--- NOTE | 2022-05-18 09:29 | P.CRDCN ---
History of Present Illness Consult date: 05/18/22 Reason for Consult (text): Elevated troponin History of present illness: HISTORY OF PRESENT ILLNESS: This is a 81-year-old female patient of Dr. George with a past medical history significant for permanent atrial fibrillation, coronary artery disease, hypertension, hyperlipidemia, chronic diastolic heart failure and former nicotine dependence. We have been asked to see the patient in consultation for elevated troponins. Patient was last seen in the office on March 29 and was stable at that time. Patient is known to have chronic shortness of breath with exertion that is unchanged and also chronic lower extremity edema on oral Bumex. At that time, it was recommended for compression socks, increase activity and avoid salt. Patient states that she developed difficulty breathing which was worse than her baseline been going on for 3 days. She also states she has a cough with bloody sputum along with fever and chills and vomiting. She denies having any chest pain. She has lower extremity edema which is chronic. She states she has been taking all of her medications as directed. Patient is status post 1 dose of IV Lasix 40 mg and was resumed on her home dose of Bumex 1 mg daily. * EKG reveals atrial fibrillation with ventricular rate of 123 bpm, heart rate is currently controlled * Chest xray clinical correlation recommended for developing heart failure. * CTA of the chest revealed no evidence of pulmonary embolism. Patchy groundglass pulmonary opacities within the right upper lobe suggestive of atypical pulmonary infection. Reactive right hilar lymphadenopathy likely secondary to #2. Age indeterminate central compression fractures T11 and L1. Trace perihepatic ascites. * Laboratory data: WBC 3.9, hemoglobin 9.5, platelet count 129. INR 1.2. D- dimer 1.1. Potassium 3.8, BUN 17 and creatinine 0.68. Troponin 0.019 and 0.041. ProBNP 2090. Lipase 15. Influenza A, influenza B, RSV, Covid 19 not detected. * Current home cardiac medications include eliquis 5 mg twice daily, digoxin 125 g every 2 days at 10:00, Nitrostat as needed, verapamil 180 mg daily, levothyroxine 137 g at bedtime * Echocardiogram 05/03/2022: Left ventricular ejection fraction 50%. Severe RV dilation with severe pulmonary hypertension and dilated IVC. 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 REVIEW OF SYSTEMS: At the time of my exam: CONSTITUTIONAL: Reports fever or chills. HEENT: Denies blurred vision, vision changes, or eye pain. Denies hemoptysis CARDIOVASCULAR: Denies chest pain. Denies orthopnea. Denies PND. Denies palpitations. Reports lower extremity edema improved RESPIRATORY: Reports shortness of breath, reports cough, reports bloody sputum. GASTROINTESTINAL: Denies abdominal pain. Reports vomiting. HEMATOLOGIC: Denies bleeding disorders. GENITOURINARY: Denies any blood in urine. SKIN: Denies pruitis. Denies rash. PHYSICAL EXAM: VITAL SIGNS: Reviewed. GENERAL: Well-developed in no acute distress. HEENT: Head is normocephalic. Pupils are equal, round. Sclerae anicteric. Mucous membranes of the mouth are moist. Neck supple. No JVD or thyromegaly LUNGS: Crackles bilaterally bilaterally. HEART: Irregular rate and rhythm. S1 and S2 heard. ABDOMEN: Soft. Nondistended. Nontender. EXTREMITIES: Normal range of motion. No clubbing or cyanosis. Peripheral pulse s intact. 1+ lower extremity edema NEUROLOGIC: Awake and alert. Oriented x 3. ASSESSMENT: Acute on chronic diastolic heart failure with preserved EF Hemoptysis Coronary artery disease Permanent atrial fibrillation Chronic congestive heart failure with preserved ejection fraction Hypertension Hyperlipidemia Former nicotine dependence PLAN: Start patient on Lasix 40 mg IV twice daily, monitor I&O, daily weights, electrolytes and renal function Continue patient's home cardiac medications Further recommendations as patient progresses Thank you kindly for this consultation. Nurse practitioner note has been reviewed by physician. Signing provider agrees with the documented findings, assessment, and plan of care. Past Medical History Past Medical History: Atrial Fibrillation, Coronary Artery Disease (CAD), Cancer, Diabetes Mellitus, Hyperlipidemia, Hypertension, Musculoskeletal Disorder, Neurologic Disorder, Osteoarthritis (OA), Pneumonia, Renal Disease, Rheumatoid Arthritis (RA), Skin Disorder, Thyroid Disorder Additional Past Medical History / Comment(s): Morbid obesity, chronic atrial fibrillation, diabetes mellitus type 2, hypertension, hyperlipidemia, spinal stenosis, osteoarthritis, hypothyroidism, hypertension, history of skin melanoma, history of bursitis with MRSA post I&D, rheumatoid arthritis, Sjogren 's disease, 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 without any indication of ILD related to RA, Fall on July 22 transfer to [facility] for MRI, then Fall on 11/16/21 History of Any Multi-Drug Resistant Organisms: MRSA Date of last positivie culture/infection: 01/19/22 MDRO Source:: Wound Past Surgical History: Back Surgery, Breast Surgery, Cholecystectomy, Heart Catheterization, Joint Replacement, Orthopedic Surgery Additional Past Surgical History / Comment(s): Bilateral cataracts with lens implants, arthroscopies to lt wrist, gualberto knees, gualberto ankles, gualberto hips, lt hip replacment and redone, L/R shoulder sxs, rt breast bx-benign, egd/colonoscopy, skin cancer removal L arm, Lumbar fixnation possible broken Past Anesthesia/Blood Transfusion Reactions: No Reported Reaction Additional Past Anesthesia/Blood Transfusion Reaction / Comment(s): Pt has been told not to have anesthesia metabolized by the kidneys and has neurologic Sjogren's with post anesthesia paralysis. Past Psychological History: No Psychological Hx Reported Smoking Status: Former smoker Past Alcohol Use History: None Reported Past Drug Use History: None Reported - Past Family History Mother Family Medical History: CVA/TIA Additional Family Medical History / Comment(s): RUPTURED BOWEL Father Family Medical History: Cancer, Pneumonia Additional Family Medical History / Comment(s): ASPIRATIVE PNA Sister(s) Additional Family Medical History / Comment(s): at age 34 with lupus Medications and Allergies Home Medications Medication Instructions Recorded Confirmed Type Latanoprost [Xalatan 0.005%] 1 drop BOTH EYES HS 08/11/17 05/17/22 History predniSONE 5 mg PO DAILY 07/23/21 05/17/22 History Magnesium Oxide 400 mg PO DAILY 08/30/21 05/17/22 History methocarbamoL [Methocarbamol] 500 mg PO HS 08/30/21 05/17/22 History Calcium Citrate/Vitamin D3 1 tab PO BID@1000,1730 11/16/21 05/17/22 History [Citracal + D Maximum Caplet] Digoxin [Lanoxin] 125 mcg PO Q2D@1000 11/16/21 05/17/22 History Levothyroxine Sodium [Synthroid] 137 mcg PO HS 11/16/21 05/17/22 History Nitroglycerin Sl Tabs [Nitrostat] 0.4 mg SL Q5M PRN 11/16/21 05/17/22 History Adalimumab [Humira(Cf) Pen] 40 mg SQ FR 01/09/22 05/17/22 History Apixaban [Eliquis] 5 mg PO BID@1000,1730 05/02/22 05/17/22 History Gabapentin [Neurontin] 400 mg PO Q6H 05/02/22 05/17/22 History HYDROcodone/APAP 7.5-325MG [Q[place]man 1 tab PO Q6H 05/02/22 05/17/22 History 7.5-325] INSULIN LISPRO (HumaLOG) [humaLOG] 4 units SQ AC-LUNCH 05/02/22 05/17/22 History INSULIN LISPRO (HumaLOG) [humaLOG] See Protocol SQ AC-TID 05/02/22 05/17/22 Hist ory INSULIN LISPRO (humaLOG) [humaLOG] 8 units SQ AC-SUPPER 05/02/22 05/17/22 History Multivit-Min/FA/Lycopen/Lutein 1 tab PO DAILY 05/02/22 05/17/22 History [Centrum Silver Tablet] Tolterodine Tartrate [Tolterodine 4 mg PO DAILY 05/02/22 05/17/22 History Tartrate ER] metFORMIN HCL [Glucophage] 500 mg PO DAILY@1730 05/02/22 05/17/22 History Bumetanide [BUMEX] 1 mg PO DAILY #30 tab 05/03/22 05/17/22 Rx Verapamil Sr [Isoptin Sr] 180 mg PO DAILY #30 tab 05/03/22 05/17/22 Rx Insulin Glargine [Lantus Vial] 14 unit SQ HS 05/17/22 05/17/22 History Insulin Glargine [Lantus Vial] 25 unit SQ DAILY@0700 05/17/22 05/17/22 History Allergies Allergy/AdvReac Type Severity Reaction Status Date / Time adhesive Allergy Rash/Hives Verified 05/17/22 09:34 cephalexin [From Keflex] Allergy Rash/Hives Verified 05/17/22 09:34 grass pollen Allergy Unknown Verified 05/17/22 09:34 mold Allergy Unknown Verified 05/17/22 09:34 Sulfa (Sulfonamide Allergy Rash/Hives Verified 05/17/22 09:34 Antibiotics) newspaper ink Allergy Mild Unknown Uncoded 05/02/22 16:22 Physical Exam Vitals: Vital Signs Temp Pulse Resp BP Pulse Ox 03/22/23 05:20 94 L 05/18/22 05:08 78 18 132/76 94 L 05/18/22 03:45 89 20 139/77 98 05/18/22 01:56 98.5 F 05/18/22 01:51 101 H 20 153/80 97 05/18/22 01:00 105 H 22 170/96 93 L 05/18/22 00:50 111 H 21 170/96 91 L 05/18/22 00:40 106 H 15 170/96 97 05/18/22 00:30 104 H 18 172/100 97 05/18/22 00:20 103 H 24 172/100 99 05/18/22 00:10 95 23 172/100 97 05/18/22 00:00 92 22 166/96 97 05/17/22 23:50 98 7 L 166/96 99 05/17/22 23:40 166/96 05/17/22 23:31 91 18 166/96 94 L 05/17/22 23:30 112 H 19 152/112 94 L 05/17/22 23:20 101 H 9 L 152/112 05/17/22 23:10 103 H 15 152/112 97 05/17/22 23:00 100 14 142/75 94 L 05/17/22 22:50 97 17 142/75 96 05/17/22 22:40 99 18 142/75 95 05/17/22 22:30 89 18 161/82 96 05/17/22 22:25 98.4 F 114 H 18 161/82 96 05/17/22 22:20 85 15 161/82 94 L 05/17/22 22:10 107 H 15 161/82 93 L 05/17/22 22:05 83 20 161/82 95 05/17/22 22:00 98 19 161/81 93 L 05/17/22 21:50 87 7 L 161/81 95 05/17/22 21:40 86 26 H 161/81 94 L 05/17/22 21:30 82 8 L 162/83 97 05/17/22 21:20 91 10 L 162/83 95 05/17/22 21:10 83 14 162/83 97 05/17/22 21:00 89 5 L 166/92 96 05/17/22 20:50 85 19 131/100 98 05/17/22 20:40 95 19 131/100 95 03/21/23 20:30 85 6 L 150/78 98 05/17/22 20:20 87 20 150/78 94 L 05/17/22 20:10 82 16 150/78 97 05/17/22 20:00 77 9 L 150/78 96 05/17/22 19:50 85 20 150/78 96 05/17/22 19:40 80 14 150/78 99 05/17/22 19:30 89 13 141/77 97 05/17/22 19:20 102 H 14 141/77 05/17/22 19:10 85 10 L 141/77 05/17/22 19:00 80 20 05/17/22 18:50 80 16 155/73 97 05/17/22 18:40 89 20 155/73 93 L 05/17/22 18:30 77 18 142/74 92 L 05/17/22 18:20 76 15 142/74 93 L 05/17/22 18:10 78 8 L 142/74 99 05/17/22 18:00 78 16 141/76 98 05/17/22 17:50 80 14 141/76 98 05/17/22 17:40 79 13 141/76 94 L 05/17/22 17:30 80 20 97 05/17/22 17:20 86 15 98 05/17/22 17:10 80 14 122/73 95 05/17/22 17:00 77 16 96 05/17/22 16:50 79 15 133/70 97 05/17/22 16:27 98.4 F 75 18 133/70 95 05/17/22 14:13 98.0 F 87 18 127/65 96 05/17/22 12:06 87 20 102/68 96 05/17/22 10:45 98.5 F 94 18 143/73 97 05/17/22 09:00 99.9 F H 89 20 148/87 92 L 05/17/22 08:50 133 H 22 157/96 89 L Results 05/18/22 04:34 05/17/22 09:20 Cardiac Enzymes 05/17/22 05/17/22 Range/Units 09:20 09:20 AST 30 (14-36) U/L Troponin I 0.041 H* (0.000-0.034) ng/mL Coagulation 05/17/22 Range/Units 09:20 PT 12.4 H (9.0-12.0) sec APTT 25.0 (22.0-30.0) sec CBC 05/17/22 Range/Units 09:20 WBC 5.2 (3.8-10.6) k/uL RBC 4.03 (3.80-5.40) m/uL Hgb 10.3 L (11.4-16.0) gm/dL Hct 33.6 L (34.0-46.0) % Plt Count 177 (150-450) k/uL Comprehensive Metabolic Panel 05/17/22 Range/Units 09:20 Sodium 140 (137-145) mmol/L Potassium 3.8 (3.5-5.1) mmol/L Chloride 99 (98-107) mmol/L Carbon Dioxide 33 H (22-30) mmol/L BUN 17 (7-17) mg/dL Creatinine 0.68 (0.52-1.04) mg/dL Glucose 149 H (74-99) mg/dL Calcium 8.9 (8.4-10.2) mg/dL AST 30 (14-36) U/L ALT 18 (4-34) U/L Alkaline Phosphatase 77 (38-126) U/L Total Protein 7.2 (6.3-8.2) g/dL Albumin 3.6 (3.5-5.0) g/dL Current Medications Generic Name Dose Route Start Last Admin Trade Name Freq PRN Reason Stop Dose Admin Acetaminophen 650 mg 05/17/22 08:47 Acetaminophen Tab 325 Mg Tab PO Q6HR PRN Mild Pain or Fever > 100.5 Hydrocodone Bitart/Acetaminophen 1 each 05/17/22 22:00 05/18/22 03:42 Hydrocodone/Apap 7.5-325mg 1 Each Tab PO 1 each Q6H [facility] Administration Apixaban 5 mg 05/18/22 09:00 Apixaban 5 Mg Tab PO BID [facility] Protocol Bumetanide 1 mg 05/18/22 09:00 Bumetanide 1 Mg Tab PO DAILY [facility] Calcium Carbonate 1 each 05/18/22 09:00 Calcium Carb-Vit D 500 Mg-5 Mcg Tab PO BID [facility] Digoxin 125 mcg 05/19/22 09:00 Digoxin 125 Mcg Tab PO Q2D@0900 [facility] Gabapentin 400 mg 05/17/22 22:00 05/18/22 03:42 Gabapentin 400 Mg Cap PO 400 mg Q6H [facility] Administration Guaifenesin 200 mg 05/17/22 19:10 05/17/22 21:59 Guaifenesin Syrup 100mg/5ml 200 Mg/10 Ml Cup PO 200 mg Q6HR PRN Administration Cough Ibuprofen 400 mg 05/17/22 08:47 05/17/22 10:52 Ibuprofen 400 Mg Tab PO 400 mg Q6HR PRN Administration Mild Pain or Fever > 100.5 Insulin Aspart 8 unit 05/17/22 22:00 05/17/22 22:24 Insulin Aspart (Novolog) 100 Unit/Ml Vial SQ 8 unit AC-SUPPER [facility] Administration Insulin Aspart 4 unit 05/18/22 12:30 Insulin Aspart (Novolog) 100 Unit/Ml Vial SQ AC-LUNCH [facility] Insulin Detemir 14 unit 05/18/22 21:00 Insulin Detemir (Levemir) 100 Unit/Ml Syr SQ HS [facility] Insulin Detemir 25 unit 05/18/22 07:00 Insulin Detemir (Levemir) 100 Unit/Ml Syr SQ DAILY@0700 [facility] Latanoprost 1 drops 05/17/22 22:00 05/17/22 22:21 Latanoprost 0.005% Ophth Drops 2.5 Ml Btl BOTH EYES 1 drops HS [facility] Administration Levothyroxine Sodium 137 mcg 05/17/22 22:00 05/17/22 22:21 Levothyroxine 137 Mcg Tab PO 137 mcg HS [facility] Administration Loratadine 10 mg 05/18/22 09:00 Loratadine 10 Mg Tab PO DAILY [facility] Magnesium Oxide 400 mg 05/18/22 09:00 Magnesium Oxide 400 Mg Tab PO DAILY [facility] Metformin HCl 500 mg 05/18/22 17:30 Metformin 500 Mg Tab PO DAILY@1730 [facility] Methocarbamol 500 mg 05/17/22 22:00 05/17/22 22:17 Methocarbamol 500 Mg Tab PO 500 mg HS [facility] Administration Multivitamins 1 each 05/18/22 09:00 Multivitamins, Thera 1 Each Tab PO DAILY [facility] Naloxone HCl 0.2 mg 05/17/22 08:47 Naloxone 0.4 Mg/Ml 1 Ml Vial IV Q2M PRN Opioid Reversal Nitroglycerin 0.4 mg 05/17/22 21:53 Nitroglycerin Sl Tabs 0.4 Mg Tab SUBLINGUAL Q5M PRN Chest Pain Non-Formulary Medication 40 mg 05/20/22 09:00 Adalimumab [Humira(Cf) Pen] SQ FR [facility] Ondansetron HCl 4 mg 05/17/22 08:47 05/17/22 22:00 Ondansetron 4 Mg/2 Ml Vial IVP 4 mg Q8HR PRN Administration Nausea And Vomiting Oxybutynin Chloride 10 mg 05/18/22 09:00 Oxybutynin 10 Mg Tab.Er.24 PO DAILY [facility] Prednisone 5 mg 05/18/22 09:00 Prednisone 5 Mg Tab PO DAILY [facility] Verapamil HCl 180 mg 05/17/22 22:00 05/17/22 22:21 Verapamil Sr 180 Mg Tablet.Er PO 180 mg DAILY [facility] Administration 05/17/22 09:20 05/17/22 09:20
[2022-05-18 09:39] LABS: Glucose,Whole Blood 132 mg/dL (70-110)
--- NOTE | 2022-05-18 10:44 | CA ---
Transthoracic Echo Report Name: Rosalva Lr Age: 81 Gender: F : 1940 Exam Date: 05/18/2022 07:35 Exam Location: [facility] Ht (in): 73 Wt (lb): 311 Ordering Physician: Brianda Mark Attending/Referring Phys: [id number], Jas [employer] Laminating Supervisor Iam Gao RDCS Procedure CPT: Indications: LVF Cardiac Hx: Technical Quality: Contrast 1: Total Dose (mL): Contrast 2: Total Dose (mL): MEASUREMENTS (Male / Female) Normal Values FINDINGS Left Ventricle Right Ventricle Right Atrium Left Atrium Mitral Valve Moderate mitral annular calcification. Aortic Valve Tricuspid Valve Pulmonic Valve Pericardium No pericardial or pleural effusion. Aorta CONCLUSIONS Mildly impaired LV function with EF between 45-50% No evidence of pericardial effusion Previewed by: Dr. Jamshid George MD (Electronically Signed) Final Date: 18 May 2022 10:43
[2022-05-18 14:36] LABS: Glucose,Whole Blood 215 mg/dL (70-110)
[2022-05-18] MEDS: INSULIN ASPART (NovoLOG) 100 UNIT/ML VIAL SQ SCH ×2 (14:40→17:57)
[2022-05-18 17:38] LABS: Glucose,Whole Blood 241 mg/dL (70-110)
[2022-05-18] MEDS: metFORMIN 500 MG TAB PO SCH (17:57)
[2022-05-18 20:33] LABS: Glucose,Whole Blood 197 mg/dL (70-110)
[2022-05-18] MEDS: LATANOPROST 0.005% OPHTH DROPS 2.5 ML BTL BOTH EYES SCH (20:49)
[2022-05-18] MEDS: methocarbamoL 500 MG TAB PO SCH (21:10)
[2022-05-18] MEDS: LEVOTHYROXINE 137 MCG TAB PO SCH (21:11)
[2022-05-19] MEDS: GABAPENTIN 400 MG CAP PO SCH ×4 (03:39→21:29)
[2022-05-19] MEDS: HYDROcodone/APAP 7.5-325MG 1 EACH TAB PO SCH ×4 (03:39→21:28)
[2022-05-19] MEDS: INSULIN DETEMIR (LEVEMIR) 100 UNIT/ML SYR SQ SCH ×2 (07:26→21:29)
[2022-05-19 07:36] LABS: Glucose,Whole Blood 123 mg/dL (70-110)
[2022-05-19 08:43] LABS: HCT 32.9 % (37.2-46.3); HGB 9.4 g/dL (12.0-15.0); MCH 24.9 pg (27.0-32.0); MCHC 28.6 g/dL (32.0-37.0); MCV 87.3 fL (80.0-97.0); Mean Platelet Volume 10.7 fL (9.5-12.2); NRBC Per 100 WBC 0 /100 WBCS (0.0-0.0); Platelet Count 134 X 10*3/uL (140-440); RBC 3.77 X 10*6/uL (4.10-5.20); RDW 17.8 % (11.5-14.5); WBC 5.44 X 10*3/uL (4.50-10.00)
--- NOTE | 2022-05-19 08:45 | P.PN ---
Subjective Progress Note Date: 05/19/22 HISTORY OF PRESENT ILLNESS: This is a 81-year-old female patient of Dr. George with a past medical history significant for permanent atrial fibrillation, coronary artery disease, hypertension, hyperlipidemia, chronic diastolic heart failure and former nicotine dependence. We have been asked to see the patient in consultation for elevated troponins. Patient was last seen in the office on March 29 and was stable at that time. Patient is known to have chronic shortness of breath with exertion that is unchanged and also chronic lower extremity edema on oral Bumex. At that time, it was recommended for compression socks, increase activity and avoid salt. Patient states that she developed difficulty breathing which was worse than her baseline been going on for 3 days. She also states she has a cough with bloody sputum along with fever and chills and vomiting. She denies having any chest pain. She has lower extremity edema which is chronic. She states she has been taking all of her medications as directed. Patient is status post 1 dose of IV Lasix 40 mg and was resumed on her home dose of Bumex 1 mg daily. * EKG reveals atrial fibrillation with ventricular rate of 123 bpm, heart rate is currently controlled * Chest xray clinical correlation recommended for developing heart failure. * CTA of the chest revealed no evidence of pulmonary embolism. Patchy groundglass pulmonary opacities within the right upper lobe suggestive of atypical pulmonary infection. Reactive right hilar lymphadenopathy likely secondary to #2. Age indeterminate central compression fractures T11 and L1. Trace perihepatic ascites. * Laboratory data: WBC 3.9, hemoglobin 9.5, platelet count 129. INR 1.2. D- dimer 1.1. Potassium 3.8, BUN 17 and creatinine 0.68. Troponin 0.019 and 0.041. ProBNP 2090. Lipase 15. Influenza A, influenza B, RSV, Covid 19 not detected. * Current home cardiac medications include eliquis 5 mg twice daily, digoxin 125 g every 2 days at 10:00, Nitrostat as needed, verapamil 180 mg daily, levothyroxine 137 g at bedtime * Echocardiogram 05/03/2022: Left ventricular ejection fraction 50%. Severe RV dilation with severe pulmonary hypertension and dilated IVC. * Cardiac catheterization history: August 2017 revealing intermediate disease invo lving the mid left circumflex which is a medium caliber vessel. 05/19 the patient has some improvement of shortness of breath and continues to have lower extremity edema but her main concern is that she has a Ruth catheter in place versus the purewick catheter.patient has been treated with IV Lasix 40 mg twice daily. according to patient's nurse, patient had 1000 mL output after her evening dose of Lasix. No documented weights and I&O is not accurate. Patient remains afebrile, heart rate in the 70s and 80s, blood pressure 126/56, pulse ox 97% on 5 L nasal cannula.blood work ordered for today is currently pending. Limited echocardiogram reveals impaired L of 45-50%, no pericardial effusion, Moderate mitral calcification PHYSICAL EXAM: VITAL SIGNS: Reviewed. GENERAL: Well-developed in no acute distress. HEENT: Head is normocephalic. Pupils are equal, round. Sclerae anicteric. Mucous membranes of the mouth are moist. Neck supple. No JVD or thyromegaly LUNGS: Crackles bilaterally and exp wheezing. HEART: Irregular rate and rhythm. S1 and S2 heard. ABDOMEN: Soft. Nondistended. Nontender. EXTREMITIES: Normal range of motion. No clubbing or cyanosis. Peripheral pulses intact. 1+ lower extremity edema NEUROLOGIC: Awake and alert. Oriented x 3. ASSESSMENT: Acute on chronic diastolic heart failure with preserved EF Hemoptysis Coronary artery disease Permanent atrial fibrillation Chronic congestive heart failure with preserved ejection fraction Hypertension Hyperlipidemia Former nicotine dependence PLAN: Continue patient on Lasix 40 mg IV twice daily for another 24 hours, monitor I&O, daily weights, electrolytes and renal function Continue patient's home cardiac medications Further recommendations as patient progresses Thank you kindly for this consultation. Nurse practitioner note has been reviewed by physician. Signing provider agrees with the documented findings, assessment, and plan of care. Objective - Vital Signs Vital signs: Vital Signs Temp 98.0 F 05/19/22 07:16 Pulse 80 05/19/22 07:16 Resp 20 05/19/22 07:16 BP 142/64 05/19/22 07:16 Pulse Ox 99 05/19/22 07:16 FiO2 Intake & Output 05/18/22 05/19/22 05/19/22 18:59 06:59 18:59 Intake Total 240 600 Output Total 1200 1075 Balance -960 -475 Intake: Oral 240 600 Output: Urine 1200 1075 Other: Voiding Method Indwelling Catheter - Labs CBC & Chem 7: 05/18/22 04:34 05/18/22 04:34 Labs: Abnormal Lab Results - Last 24 Hours (Table) 05/18/22 05/18/22 05/18/22 Range/Units 04:34 04:34 04:34 WBC 3.93 L (4.50-10.00) X 10*3/uL RBC 3.94 L (4.10-5.20) X 10*6/uL Hgb 9.5 L (12.0-15.0) g/dL Hct 34.1 L (37.2-46.3) % MCH 24.1 L (27.0-32.0) pg MCHC 27.9 L (32.0-37.0) g/dL RDW 18.0 H (11.5-14.5) % Plt Count 129 L (140-440) X 10*3/uL Eosinophils # 0.03 L (0.04-0.35) X 10*3/uL Carbon Dioxide 29.9 H (20.0-27.5) mmol/L Glucose 142 H (70-110) mg/dL POC Glucose (mg/dL) (70-110) mg/dL Hemoglobin A1c 7.4 H (0.0-6.0) % Albumin 3.6 L (3.8-4.9) g/dL Albumin/Globulin Ratio 1.10 L (1.60-3.17) g/dL 05/18/22 05/18/22 05/18/22 Range/Units 09:38 14:33 17:36 WBC (4.50-10.00) X 10*3/uL RBC (4.10-5.20) X 10*6/uL Hgb (12.0-15.0) g/dL Hct (37.2-46.3) % MCH (27.0-32.0) pg MCHC (32.0-37.0) g/dL RDW (11.5-14.5) % Plt Count (140-440) X 10*3/uL Eosinophils # (0.04-0.35) X 10*3/uL Carbon Dioxide (20.0-27.5) mmol/L Glucose (70-110) mg/dL POC Glucose (mg/dL) 132 H 215 H 241 H (70-110) mg/dL Hemoglobin A1c (0.0-6.0) % Albumin (3.8-4.9) g/dL Albumin/Globulin Ratio (1.60-3.17) g/dL 05/18/22 05/19/22 Range/Units 20:31 07:34 WBC (4.50-10.00) X 10*3/uL RBC (4.10-5.20) X 10*6/uL Hgb (12.0-15.0) g/dL Hct (37.2-46.3) % MCH (27.0-32.0) pg MCHC (32.0-37.0) g/dL RDW (11.5-14.5) % Plt Count (140-440) X 10*3/uL Eosinophils # (0.04-0.35) X 10*3/uL Carbon Dioxide (20.0-27.5) mmol/L Glucose (70-110) mg/dL POC Glucose (mg/dL) 197 H 123 H (70-110) mg/dL Hemoglobin A1c (0.0-6.0) % Albumin (3.8-4.9) g/dL Albumin/Globulin Ratio (1.60-3.17) g/dL Microbiology - Last 24 Hours (Table) 05/17/22 09:15 Blood Culture - Preliminary Blood No Growth after 24 hours 05/17/22 09:00 Blood Culture - Preliminary Blood No Growth after 24 hours
[2022-05-19 08:52] LABS: African American GFR (CKD) 80.7 (60.0-200.0); Albumin 3.3 g/dL (3.8-4.9); Albumin/Globulin Ratio 1.03 (1.60-3.17); Anion Gap 4.9 mmol/L (10.00-18.00); BUN/Creat Ratio 18.75 Ratio (12.00-20.00); Calcium 8.3 mg/dL (8.7-10.3); Carbon Dioxide 36.1 mmol/L (20.0-27.5); Globulin 3.2 g/dL (1.6-3.3); Non-African American GFR(CKD) 69.6 (60.0-200.0); Potassium 3.7 mmol/L (3.5-5.5); Total Bilirubin 0.3 mg/dL (0.30-1.20); Total Protein 6.5 g/dL (6.2-8.2)
[2022-05-19] MEDS: predniSONE 5 MG TAB PO SCH (08:52)
[2022-05-19] MEDS: MAGNESIUM OXIDE 400 MG TAB PO SCH (08:52)
[2022-05-19] MEDS: VERAPAMIL SR 180 MG TABLET.ER PO SCH (08:52)
[2022-05-19] MEDS: OXYBUTYNIN 10 MG TAB.ER.24 PO SCH (08:53)
[2022-05-19] MEDS: CALCIUM CARB-VIT D 500 MG-5 MCG TAB PO SCH ×2 (08:53→20:23)
[2022-05-19] MEDS: APIXABAN 5 MG TAB PO SCH ×2 (08:53→20:23)
[2022-05-19] MEDS: MULTIVITAMINS, THERA 1 EACH TAB PO SCH (08:54)
[2022-05-19] MEDS ORDERED: DIGOXIN 125 MCG TAB PO SCH (09:00)
--- NOTE | 2022-05-19 09:03 | P.PN ---
Subjective Progress Note Date: 05/19/22 Principal diagnosis: Acute on chronic congestive heart failure This is an 81-year-old female with a known history of atrial fibrillation and congestive heart failure. She has been receiving IV Lasix and reports her breathing is better. Cardiology on consult following closely. Patient has not been out of bed yet therapy is ordered and will encourage ambulation. She is seen laying in bed this morning denies any current complaints, states shortness of breath is improved. Objective - Vital Signs Vital signs: Vital Signs Temp 97.4 F L 05/19/22 08:30 Pulse 85 05/19/22 08:40 Resp 18 05/19/22 08:40 BP 126/56 05/19/22 08:30 Pulse Ox 97 05/19/22 08:30 FiO2 Intake & Output 05/18/22 05/19/22 05/19/22 18:59 06:59 18:59 Intake Total 240 600 Output Total 1200 1075 Balance -960 -475 Intake: Oral 240 600 Output: Urine 1200 1075 Other: Voiding Method Indwelling Catheter Indwelling Catheter - Constitutional General appearance: Present: cooperative, no acute distress - EENT Eyes: Present: EOMI, PERRLA - Neck Neck: Present: normal ROM. Absent: lymphadenopathy, rigidity - Respiratory Respiratory: bilateral: rhonchi - Cardiovascular Rhythm: irregularly irregular Heart sounds: normal: S1, S2 - Gastrointestinal General gastrointestinal: Present: soft. Absent: tenderness - Integumentary Integumentary: Present: normal, normal turgor - Musculoskeletal Musculoskeletal: Present: generalized weakness - Psychiatric Psychiatric: Present: A&O x's 3, appropriate affect, intact judgment & insight - Labs CBC & Chem 7: 05/19/22 05:24 05/19/22 05:24 Labs: Abnormal Lab Results - Last 24 Hours (Table) 05/18/22 05/18/22 05/18/22 Range/Units 04:34 04:34 04:34 WBC 3.93 L (4.50-10.00) X 10*3/uL RBC 3.94 L (4.10-5.20) X 10*6/uL Hgb 9.5 L (12.0-15.0) g/dL Hct 34.1 L (37.2-46.3) % MCH 24.1 L (27.0-32.0) pg MCHC 27.9 L (32.0-37.0) g/dL RDW 18.0 H (11.5-14.5) % Plt Count 129 L (140-440) X 10*3/uL Eosinophils # 0.03 L (0.04-0.35) X 10*3/uL Carbon Dioxide 29.9 H (20.0-27.5) mmol/L Anion Gap (10.00-18.00) mmol/L Glucose 142 H (70-110) mg/dL POC Glucose (mg/dL) (70-110) mg/dL Hemoglobin A1c 7.4 H (0.0-6.0) % Calcium (8.7-10.3) mg/dL Albumin 3.6 L (3.8-4.9) g/dL Albumin/Globulin Ratio 1.10 L (1.60-3.17) g/dL 05/18/22 05/18/22 05/18/22 Range/Units 09:38 14:33 17:36 WBC (4.50-10.00) X 10*3/uL RBC (4.10-5.20) X 10*6/uL Hgb (12.0-15.0) g/dL Hct (37.2-46.3) % MCH (27.0-32.0) pg MCHC (32.0-37.0) g/dL RDW (11.5-14.5) % Plt Count (140-440) X 10*3/uL Eosinophils # (0.04-0.35) X 10*3/uL Carbon Dioxide (20.0-27.5) mmol/L Anion Gap (10.00-18.00) mmol/L Glucose (70-110) mg/dL POC Glucose (mg/dL) 132 H 215 H 241 H (70-110) mg/dL Hemoglobin A1c (0.0-6.0) % Calcium (8.7-10.3) mg/dL Albumin (3.8-4.9) g/dL Albumin/Globulin Ratio (1.60-3.17) g/dL 05/18/22 05/19/22 05/19/22 Range/Units 20:31 05:24 05:24 WBC (4.50-10.00) X 10*3/uL RBC 3.77 L (4.10-5.20) X 10*6/uL Hgb 9.4 L (12.0-15.0) g/dL Hct 32.9 L (37.2-46.3) % MCH 24.9 L (27.0-32.0) pg MCHC 28.6 L (32.0-37.0) g/dL RDW 17.8 H (11.5-14.5) % Plt Count 134 L (140-440) X 10*3/uL Eosinophils # (0.04-0.35) X 10*3/uL Carbon Dioxide 36.1 H (20.0-27.5) mmol/L Anion Gap 4.90 L (10.00-18.00) mmol/L Glucose (70-110) mg/dL POC Glucose (mg/dL) 197 H (70-110) mg/dL Hemoglobin A1c (0.0-6.0) % Calcium 8.3 L (8.7-10.3) mg/dL Albumin 3.3 L (3.8-4.9) g/dL Albumin/Globulin Ratio 1.03 L (1.60-3.17) g/dL 05/19/ Range/Units 07:34 WBC (4.50-10.00) X 10*3/uL RBC (4.10-5.20) X 10*6/uL Hgb (12.0-15.0) g/dL Hct (37.2-46.3) % MCH (27.0-32.0) pg MCHC (32.0-37.0) g/dL RDW (11.5-14.5) % Plt Count (140-440) X 10*3/uL Eosinophils # (0.04-0.35) X 10*3/uL Carbon Dioxide (20.0-27.5) mmol/L Anion Gap (10.00-18.00) mmol/L Glucose (70-110) mg/dL POC Glucose (mg/dL) 123 H (70-110) mg/dL Hemoglobin A1c (0.0-6.0) % Calcium (8.7-10.3) mg/dL Albumin (3.8-4.9) g/dL Albumin/Globulin Ratio (1.60-3.17) g/dL Microbiology - Last 24 Hours (Table) 05/17/22 09:15 Blood Culture - Preliminary Blood No Growth after 24 hours 05/17/22 09:00 Blood Culture - Preliminary Blood No Growth after 24 hours Assessment and Plan (1) Dyspnea Current Visit: Yes Status: Acute Code(s): R06.00 - DYSPNEA, UNSPECIFIED SNOMED Code(s): 954489109 (2) Atrial fibrillation Current Visit: No Status: Acute Code(s): I48.91 - UNSPECIFIED ATRIAL FIBRILLATION SNOMED Code(s): 13651687 (3) CAD (coronary artery disease) Current Visit: No Status: Acute Code(s): I25.10 - ATHSCL HEART DISEASE OF [place] CORONARY ARTERY W/O ANG PCTRS SNOMED Code(s): 13447138 (4) Chronic atrial fibrillation Current Visit: No Status: Acute Code(s): I48.2 - CHRONIC ATRIAL FIBRILLATION * DO NOT USE * SNOMED Code(s): 839228371 (5) Congestive heart failure Current Visit: No Status: Acute Code(s): I50.9 - HEART FAILURE, UNSPECIFIED SNOMED Code(s): 94491084 (6) Diabetes Current Visit: No Status: Acute Code(s): E11.9 - TYPE 2 DIABETES MELLITUS WITHOUT COMPLICATIONS SNOMED Code(s): 19815660 (7) Elevated troponin Current Visit: No Status: Acute Code(s): R74.8 - ABNORMAL LEVELS OF OTHER SERUM ENZYMES SNOMED Code(s): 363586436 (8) Generalized weakness Current Visit: No Status: Acute Code(s): R53.1 - WEAKNESS SNOMED Code(s): 26676293 (9) History of lumbar fusion Current Visit: No Status: Acute Code(s): Z98.1 - ARTHRODESIS STATUS SNOMED Code(s): 27980674263413 (10) Hyperlipidemia Current Visit: No Status: Acute Code(s): E78.5 - HYPERLIPIDEMIA, UNSPECIFIED SNOMED Code(s): 15332138 (11) Hypertension Current Visit: No Status: Acute Code(s): I10 - ESSENTIAL (PRIMARY) HYPERTENSION SNOMED Code(s): 71750805 (12) Hypomagnesemia Current Visit: No Status: Acute Code(s): E83.42 - HYPOMAGNESEMIA SNOMED Code(s): 169578113 (13) Hypothyroidism Current Visit: No Status: Acute Code(s): E03.9 - HYPOTHYROIDISM, UNSPECIFIED SNOMED Code(s): 42040502 (14) Inability to perform activities of daily living Current Visit: No Status: Acute Code(s): Z78.9 - OTHER SPECIFIED HEALTH STATUS SNOMED Code(s): 943324978 (15) Insulin dependent diabetes mellitus Current Visit: No Status: Acute Code(s): EDS7739 - SNOMED Code(s): 03718848 (16) Pulmonary hypertension Current Visit: No Status: Acute Code(s): I27.20 - PULMONARY HYPERTENSION, UNSPECIFIED SNOMED Code(s): 59825282 Plan: Physical therapy to assess patient. CBC and CMP in the morning. Patient seen and evaluated by nurse practitioner, physician in agreement with plan
[2022-05-19] MEDS: FUROSEMIDE 10 MG/ML 4 ML VIAL IV SCH ×2 (10:09→20:23)
[2022-05-19 12:03] LABS: Glucose,Whole Blood 185 mg/dL (70-110)
[2022-05-19] MEDS: INSULIN ASPART (NovoLOG) 100 UNIT/ML VIAL SQ SCH ×2 (12:35→17:50)
[2022-05-19] MEDS: metFORMIN 500 MG TAB PO SCH (16:48)
[2022-05-19 17:22] LABS: Glucose,Whole Blood 149 mg/dL (70-110)
[2022-05-19] MEDS: LEVOTHYROXINE 137 MCG TAB PO SCH (20:23)
[2022-05-19] MEDS: LATANOPROST 0.005% OPHTH DROPS 2.5 ML BTL BOTH EYES SCH (20:23)
[2022-05-19 21:20] LABS: Glucose,Whole Blood 118 mg/dL (70-110)
[2022-05-19] MEDS: methocarbamoL 500 MG TAB PO SCH (21:29)
[2022-05-20] MEDS: GABAPENTIN 400 MG CAP PO SCH ×2 (03:24→10:50)
[2022-05-20] MEDS: HYDROcodone/APAP 7.5-325MG 1 EACH TAB PO SCH ×2 (03:24→10:50)
[2022-05-20 06:58] LABS: Glucose,Whole Blood 92 mg/dL (70-110)
[2022-05-20 07:33] VITALS: PULSE 64
[2022-05-20] MEDS: INSULIN DETEMIR (LEVEMIR) 100 UNIT/ML SYR SQ SCH (07:38)
[2022-05-20] MEDS ORDERED: NON FORMULARY DRUG (Adalimumab [Humira(Cf) Pen] 40 MG/0.4 ML Pen.Ij.Kit) SQ SCH (09:00)
[2022-05-20] MEDS: CALCIUM CARB-VIT D 500 MG-5 MCG TAB PO SCH (10:08)
[2022-05-20] MEDS: APIXABAN 5 MG TAB PO SCH (10:09)
[2022-05-20] MEDS: predniSONE 5 MG TAB PO SCH (10:09)
[2022-05-20] MEDS: MAGNESIUM OXIDE 400 MG TAB PO SCH (10:09)
[2022-05-20] MEDS: OXYBUTYNIN 10 MG TAB.ER.24 PO SCH (10:09)
[2022-05-20] MEDS: LORATADINE 10 MG TAB PO SCH (10:09)
[2022-05-20] MEDS: VERAPAMIL SR 180 MG TABLET.ER PO SCH (10:09)
[2022-05-20] MEDS: MULTIVITAMINS, THERA 1 EACH TAB PO SCH (10:10)
--- NOTE | 2022-05-20 10:12 | XR ---
EXAMINATION TYPE: XR chest 1V portable DATE OF EXAM: 05/20/2022 COMPARISON: 05/17/2022 HISTORY: Shortness of breath TECHNIQUE: Single frontal view of the chest is obtained. FINDINGS: There is no focal air space opacity, pleural effusion, or pneumothorax seen. The cardiac silhouette size is mildly enlarged with no overt failure. Atherosclerotic change aorta. Patchy right perihilar infiltrate.. The osseous structures are intact. IMPRESSION: 1. Patchy right perihilar infiltrate. Cannot exclude right hilar adenopathy. 2. Cardiomegaly
[2022-05-20] MEDS: FUROSEMIDE 10 MG/ML 4 ML VIAL IV SCH (10:15)
[2022-05-20 10:40] LABS: HCT 33.3 % (37.2-46.3); HGB 9.3 g/dL (12.0-15.0); MCH 24.9 pg (27.0-32.0); MCHC 27.9 g/dL (32.0-37.0); Mean Platelet Volume 10.7 fL (9.5-12.2); NRBC Per 100 WBC 0 /100 WBCS (0.0-0.0); Platelet Count 129 X 10*3/uL (140-440); RBC 3.74 X 10*6/uL (4.10-5.20); RDW 17.7 % (11.5-14.5); WBC 5.49 X 10*3/uL (4.50-10.00)
[2022-05-20 10:54] LABS: African American GFR (CKD) 61.6 (60.0-200.0); Albumin 3.4 g/dL (3.8-4.9); Albumin/Globulin Ratio 1.03 (1.60-3.17); Anion Gap 8.1 mmol/L (10.00-18.00); BUN/Creat Ratio 17.3 Ratio (12.00-20.00); Blood Urea Nitrogen 17.3 mg/dL (9.0-27.0); Calcium 8.7 mg/dL (8.7-10.3); Carbon Dioxide 34.9 mmol/L (20.0-27.5); Globulin 3.3 g/dL (1.6-3.3); Non-African American GFR(CKD) 53.2 (60.0-200.0); Potassium 3.9 mmol/L (3.5-5.5); Total Bilirubin 0.3 mg/dL (0.30-1.20); Total Protein 6.7 g/dL (6.2-8.2)
[2022-05-20 11:43] LABS: Glucose,Whole Blood 109 mg/dL (70-110)
[2022-05-20 12:13] VITALS: BP 129/64; RESP 18; TEMP 98.2
[2022-05-20] MEDS: INSULIN ASPART (NovoLOG) 100 UNIT/ML VIAL SQ SCH (12:39)
--- NOTE | 2022-05-22 18:24 | P.DS ---
Providers Date of admission: 05/17/22 08:48 Expected date of discharge: 05/20/22 Attending physician: Nicholas Hart Consults: 05/17/22 11:23 Consult Physician Urgent Consulting Provider: Levi Tolentino Consult Reason/Comments: Elevated Troponin Do you want consulting provider notified?: Yes Primary care physician: Nicholas Hart Hospital Course: Final diagnosis Shortness Of breath secondary to acute on chronic CHF exacerbation, preserved EF history of congestive heart failure with preserved EF Persistent Atrial fibrillation Coronary artery disease history Chronic atrial fibrillation diabetes mellitus Elevated troponin generalized weakness Hyperlipidemia History of pulmonary hypertension Obesity with a BMI of 38.9 Discharge disposition Patient is being discharged in a stable condition with guarded prognosis to home with home care. Patient will follow-up with Dr. Hart in the outpatient setting upon discharge. Patient is to follow-up with cardiology and pulmonary outpatient as scheduled. Total time taken is greater than 35 minutes. Hospital course This is a 81 -year-old female who was recently admitted with increasing shortness of breath found to have CHF exacerbation. Patient was maintained on IV Lasix and diuresed well and has been transitioned oral Lasix recommending outpatient follow-up with cardiology. Cardiology cleared the patient for disch arge today. Patient did have a pulmonary consult although would like to go home and providing resources for outpatient pulmonary follow-up. Currently no reports of chest pain, shortness of breath, or palpitations. Patient is afebrile. No reports of nausea or vomiting and patient is tolerating diet. Patient will be discharged home today. Guarded prognosis. Physical exam: Gen: This is a 81-year-old female who is awake, alert and oriented 3, well- developed, well-nourished, obese HEENT: Head is atraumatic, normocephalic. Pupils equal, round. Sclerae is anicteric. NECK: Supple. No JVD. No lymphadenopathy. No thyromegaly. LUNGS: Diminished breath sounds bilaterally with some scattered rhonchi. No intercostal retractions. HEART: S1, S2 are muffled ABDOMEN: Soft. Bowel sounds are present. No masses. No tenderness. EXTREMITIES: No pedal edema. No calf tenderness. NEUROLOGICAL: Patient is awake, alert and oriented x3. Cranial nerves 2 through 12 are grossly intact. Please refer to medication reconciliation sheet for a list of medications. The impression and plan of care has been dictated by Kimberlee Lopez, Nurse Practitioner as directed. Dr. Vivek MD I have performed a history and examination and MDM of this patient, discussed the same with the dictator, and agree with the dictator's assessment and plan as written ,documented as a scribe. Based on total visit time, I have performed more than 50% of the visit. Patient Condition at Discharge: Stable Plan - Discharge Summary Discharge Rx Participant: No New Discharge Prescriptions: New Loratadine [Claritin] 10 mg PO DAILY #30 tab Acetaminophen Tab [Tylenol] 650 mg PO Q6HR PRN tab PRN Reason: Mild Pain Or Fever > 100.5 Continue Latanoprost [Xalatan 0.005%] 1 drop BOTH EYES HS Magnesium Oxide 400 mg PO DAILY Calcium Citrate/Vitamin D3 [Citracal + D Maximum Caplet] 1 tab PO BID@1000,1730 Adalimumab [Humira(Cf) Pen] 40 mg SQ FR INSULIN LISPRO (humaLOG) [humaLOG] 8 units SQ AC-SUPPER INSULIN LISPRO (HumaLOG) [humaLOG] 4 units SQ AC-LUNCH metFORMIN HCL [Glucophage] 500 mg PO DAILY@1730 HYDROcodone/APAP 7.5-325MG [[place] 7.5-325] 1 tab PO Q6H Insulin Glargine [Lantus Vial] 25 unit SQ DAILY@0700 predniSONE 5 mg PO DAILY methocarbamoL [Methocarbamol] 500 mg PO HS Nitroglycerin Sl Tabs [Nitrostat] 0.4 mg SL Q5M PRN PRN Reason: Chest Pain Levothyroxine Sodium [Synthroid] 137 mcg PO HS Digoxin [Lanoxin] 125 mcg PO Q2D@1000 INSULIN LISPRO (HumaLOG) [humaLOG] See Protocol SQ AC-TID Tolterodine Tartrate [Tolterodine Tartrate ER] 4 mg PO DAILY Multivit-Min/FA/Lycopen/Lutein [Centrum Silver Tablet] 1 tab PO DAILY Gabapentin [Neurontin] 400 mg PO Q6H Apixaban [Eliquis] 5 mg PO BID@1000,1730 Bumetanide [BUMEX] 1 mg PO DAILY #30 tab Verapamil Sr [Isoptin Sr] 180 mg PO DAILY #30 tab Insulin Glargine [Lantus Vial] 14 unit SQ HS Discharge Medication List Latanoprost [Xalatan 0.005%] 1 drop BOTH EYES HS 08/11/17 [History] predniSONE 5 mg PO DAILY 07/23/21 [History] Magnesium Oxide 400 mg PO DAILY 08/30/21 [History] methocarbamoL [Methocarbamol] 500 mg PO HS 08/30/21 [History] Calcium Citrate/Vitamin D3 [Citracal + D Maximum Caplet] 1 tab PO BID@1000,1730 11/16/21 [History] Digoxin [Lanoxin] 125 mcg PO Q2D@1000 11/16/21 [History] Levothyroxine Sodium [Synthroid] 137 mcg PO HS 11/16/21 [History] Nitroglycerin Sl Tabs [Nitrostat] 0.4 mg SL Q5M PRN 11/16/21 [History] Adalimumab [Humira(Cf) Pen] 40 mg SQ FR 01/09/22 [History] Apixaban [Eliquis] 5 mg PO BID@1000,1730 05/02/22 [History] Gabapentin [Neurontin] 400 mg PO Q6H 05/02/22 [History] HYDROcodone/APAP 7.5-325MG [[place] 7.5-325] 1 tab PO Q6H 05/02/22 [History] INSULIN LISPRO (HumaLOG) [humaLOG] 4 units SQ AC-LUNCH 05/02/22 [History] INSULIN LISPRO (HumaLOG) [humaLOG] See Protocol SQ AC-TID 05/02/22 [History] INSULIN LISPRO (humaLOG) [humaLOG] 8 units SQ AC-SUPPER 05/02/22 [History] Multivit-Min/FA/Lycopen/Lutein [Centrum Silver Tablet] 1 tab PO DAILY 05/02/22 [History] Tolterodine Tartrate [Tolterodine Tartrate ER] 4 mg PO DAILY 05/02/22 [History] metFORMIN HCL [Glucophage] 500 mg PO DAILY@1730 05/02/22 [History] Bumetanide [BUMEX] 1 mg PO DAILY #30 tab 05/03/22 [Rx] Verapamil Sr [Isoptin Sr] 180 mg PO DAILY #30 tab 05/03/22 [Rx] Insulin Glargine [Lantus Vial] 14 unit SQ HS 05/17/22 [History] Insulin Glargine [Lantus Vial] 25 unit SQ DAILY@0700 05/17/22 [History] Acetaminophen Tab [Tylenol] 650 mg PO Q6HR PRN tab 05/20/22 [Rx] Loratadine [Claritin] 10 mg PO DAILY #30 tab 05/20/22 [Rx] Follow up Appointment(s)/Referral(s): [facility], [NON-STAFF] - 1 Week Jamshid George MD [STAFF PHYSICIAN] - 06/01/22 3:15 pm Nicholas Hart MD [Primary Care Provider] - 1-2 Days (home care will call to set up appointment, any questions please call agency. ) ePrfecto Gamboa DO [Doctor of Osteopathic Medicine] - 06/09/22 9:30 am Patient Instructions/Handouts: Loratadine (By mouth), Upper Respiratory Infection (ED), Dyspnea (DC) Activity/Diet/Wound Care/Special Instructions: Activity Limited until follow-up Follow-up with primary care provider on discharge Follow-up cardiology outpatient and continue taking medications as prescribed Follow-up with pulmonary outpatient Discharge Disposition: HOME WITH HOME HEALTH SERVICES
== END 2022-05-20 16:09 | disposition home health service (06) | DRG 291 ==
LOC: EC 23:07 → 4SSUR 05-17 08:48 → 5NMEDONC 05-18 15:40
PROVIDERS: ADMIT Family Medicine; ATTEND Family Medicine
PROC: B246ZZ4 Ultrasonography of Right and Left Heart, Transesophageal (ICD-10-PCS; principal; 2022-05-18)
DX: I11.0 Hypertensive heart disease with heart failure (principal); I50.33 Acute on chronic diastolic (congestive) heart failure; R04.2 Hemoptysis; I48.21 Permanent atrial fibrillation; M48.54XA Collapsed vertebra, not elsewhere classified, thoracic region, initial encounter for fracture; R18.8 Other ascites; Z20.822 Contact with and (suspected) exposure to COVID-19; J06.9 Acute upper respiratory infection, unspecified; E66.01 Morbid (severe) obesity due to excess calories; R53.1 Weakness; I25.10 Atherosclerotic heart disease of native coronary artery without angina pectoris; I27.20 Pulmonary hypertension, unspecified; E03.9 Hypothyroidism, unspecified; E78.5 Hyperlipidemia, unspecified; Z68.38 Body mass index [BMI] 38.0-38.9, adult; E83.42 Hypomagnesemia; J30.1 Allergic rhinitis due to pollen; G89.29 Other chronic pain; M06.9 Rheumatoid arthritis, unspecified; M35.00 Sjogren syndrome, unspecified; M79.7 Fibromyalgia; M48.00 Spinal stenosis, site unspecified; Z88.1 Allergy status to other antibiotic agents; R59.0 Localized enlarged lymph nodes; Z90.49 Acquired absence of other specified parts of digestive tract; Z86.14 Personal history of Methicillin resistant Staphylococcus aureus infection; Z87.01 Personal history of pneumonia (recurrent); Z79.01 Long term (current) use of anticoagulants; Z79.4 Long term (current) use of insulin; Z79.84 Long term (current) use of oral hypoglycemic drugs; Z79.890 Hormone replacement therapy; Z79.899 Other long term (current) drug therapy; Z87.891 Personal history of nicotine dependence; Z85.820 Personal history of malignant melanoma of skin; Z96.1 Presence of intraocular lens; Z98.42 Cataract extraction status, left eye; Z98.41 Cataract extraction status, right eye; Z96.642 Presence of left artificial hip joint; Z98.1 Arthrodesis status; Z88.2 Allergy status to sulfonamides; Z91.048 Other nonmedicinal substance allergy status
CPT/HCPCS: 36415; 71045; 71046; 71275; 80053; 81001; 83036; 83605; 83690; 83735; 83880; 84484; 85025; 85027; 85379; 85610; 85730; 87040; 87636; 93005; 93308; 94760; 96374; 99285

== ENCOUNTER 2022-06-03 21:44 | Emergency (ER) | payer MEDICARE ==
[2022-06-03 21:57] VITALS: TEMP 98.2
[2022-06-03] MEDS ORDERED: MORPHINE SULFATE 4 MG/ML SYRINGE IV STA (22:04)
--- NOTE | 2022-06-03 22:08 | ED ---
General Adult HPI - General Chief complaint: Extremity Problem,Nontraumatic Stated complaint: Chest Pain Time Seen by Provider: 06/03/22 21:49 Source: patient, EMS Mode of arrival: EMS Limitations: no limitations - History of Present Illness Initial comments: Dictation was produced using [employer] dictation software. please excuse any grammatical, word or spelling errors. Chief Complaint: 81-year-old female presents to the emergency department for chief complaint of lower extremity blisters History of Present Illness:-year-old female she has multiple comorbidities. She states that she has history of atrial fibrillation and neurological Sjogren syndrome. States that she after dinner had what she describes as a sensation in her chest. She states that it felt like an ache to her left anterior chest and her left upper abdomen. She told her about it. became concerned and called EMS. EMS brought patient to the emergency department for evaluation. Patient states that she is not worried about the sensation she had in her chest. States it is not associated diaphoresis nausea or radiation. She is more concerned about her legs for states that her legs feel little swollen and that there are 2 blisters on her right grullon area. Patient otherwise feels at baseline. She denies any chest symptoms at the bedside. She states that she has bilateral lower extremity pain from her chronic neuropathy. The ROS documented in this emergency department record has been reviewed and confirmed by me. Those systems with pertinent positive or negative responses have been documented in the HPI. All other systems are other negative and/or noncontributory. PHYSICAL EXAM: General Impression: Alert and oriented x3, not in acute distress HEENT: Normocephalic atraumatic, extra-ocular movements intact, pupils equal and reactive to light bilaterally, mucous membranes moist. Cardiovascular: Heart regular rate and rhythm Chest: Able to complete full sentences, no retractions, no tachypnea Abdomen: abdomen soft, non-tender, non-distended, no organomegaly Musculoskeletal: Pulses present and equal in all extremities, 1+ pitting edema to the bilateral lower extremities Motor: no focal deficits noted Neurological: CN II-XII grossly intact, no focal motor or sensory deficits noted Skin: 2 blisters to the right anterior grullon measuring approximately 2 cm each, no surrounding erythema or induration, no drainage Psych: Normal affect and mood ED course: 81-year-old female presents to the emergency department initially for what patient describes as a mild chest ache. Patient is well-appearing. Her description of her chest symptoms is rather atypical. Patient does not feel concerned vital signs upon arrival are within acceptable limits. Nursing notes and chart review was performed Was pt. sent in by a medical professional or institution (YEIMI Rivera, BOX MACHINE OPERATOR, urgent care, hospital, or penitentiary...) When possible be specific @ -No Did you speak to anyone other than the patient for history (EMS, parent, family, police, friend...)? What history was obtained from this source @ -EMS Did you review nursing and triage notes (agree or disagree)? Why? @ -I reviewed and agree with nursing and triage notes Were old charts reviewed (outside hosp., previous admission, EMS record, old EKG, old radiological studies, urgent care reports/EKG's, penitentiary records)? Report findings @ -No old charts were reviewed Differential Diagnosis (chest pain, altered mental status, abdominal pain women, abdominal pain men, vaginal bleeding, musculoskeletal, weakness, fever, dyspnea, syncope, headache, dizziness, GI bleed, back pain, seizure, CVA, palpatations, mental health)? @ -Cellulitis, poison puneet, skin disorder EKG interpreted by me (3pts min.). @ -see above X-rays interpreted by me (1pt min.). @ -Unremarkable CT interpreted by me (1pt min.). @ -None done U/S interpreted by me (1pt. min.). @ -None done What testing was considered but not performed or refused? (CT, X-rays, U/S, labs)? Why? @ -None What meds were considered but not given or refused? Why? @ -None Did you discuss the management of the patient with other professionals (professionals i.e. YEIMI Rivera, BOX MACHINE OPERATOR, lab, RT, psych nurse, social welfare clerk, nozzleman, teacher, conservation enforcement officer, family preservation caseworker)? Give summary @ -No Was smoking cessation discussed for >3mins.? @ -No Was critical care preformed (if so, how long)? @ -No Were there social determinants of health that impacted care today? How? (Homeles sness, low income, unemployed, alcoholism, drug addiction, transportation, low edu. Level, literacy, decrease access to med. care, retirement, rehab)? @ -No Was there de-escalation of care discussed even if they declined (Discuss DNR or withdrawal of care, Hospice)? DNR status @ -No What co-morbidities impacted this encounter? (DM, HTN, Smoking, COPD, CAD, Cancer, CVA, ARF, Chemo, Hep., AIDS, mental health diagnosis, sleep apnea, morbid obesity)? @ -None Was patient admitted / discharged? Hospital course, mention meds given and route, prescriptions, significant lab abnormalities, going to OR and other pertinent info. @ -81 Year-old female presents emergency department for what she reports his leg wound. EMS reports that she was brought to the ER for chief complaint of chest pain. Patient states that she does not have any chest pain. Patient more concerned about her wounds. at the bedside reports that she had a bout of A. fib RVR at home where her heart rate went up to the 140s briefly. Since being in the ER and during ER observation her heart rate maintained at a normal level. Laboratory evaluation obtained. CBC, metabolic panel within acceptable limits. Her cardiac labs are within acceptable limits. Chest x-ray is nonacute. Disposition options were discussed with patient.. Patient would like to be discharged. Advised follow-up with primary care doctor. Patient given bacitracin ointment for her leg wounds. Return precautions discussed. and patient are agreeable to plan. Undiagnosed new problem with uncertain prognosis? @ -No Drug Therapy requiring intensive monitoring for toxicity (Heparin, Nitro, Insulin, Cardizem)? @ -No Were any procedures done? @ -No Diagnosis/symptom? Acute, or Chronic, or Acute on Chronic? Uncomplicated (without systemic symptoms) or Complicated (systemic symptoms)? @ -1. Acute leg wounds complicated Side effects of treatment? @ -No Exacerbation, Progression, or Severe Exacerbation? @ -No Poses a threat to life or bodily function? How? (Chest pain, USA, IA, pneumonia, PE, COPD, DKA, ARF, appy, cholecystitis, CVA, Diverticulitis, Homicidal, Suicidal, threat to staff... and all critical care pts) @ -No - Related Data Home Medications Medication Instructions Recorded Confirmed Latanoprost [Xalatan 0.005%] 1 drop BOTH EYES HS 08/11/17 05/17/22 predniSONE 5 mg PO DAILY 07/23/21 05/17/22 Magnesium Oxide 400 mg PO DAILY 08/30/21 05/17/22 methocarbamoL [Methocarbamol] 500 mg PO HS 08/30/21 05/17/22 Calcium Citrate/Vitamin D3 1 tab PO BID@1000,1730 11/16/21 05/17/22 [Citracal + D Maximum Caplet] Digoxin [Lanoxin] 125 mcg PO Q2D@1000 11/16/21 05/17/22 Levothyroxine Sodium [Synthroid] 137 mcg PO HS 11/16/21 05/17/22 Nitroglycerin Sl Tabs [Nitrostat] 0.4 mg SL Q5M PRN 11/16/21 05/17/22 Adalimumab [Humira(Cf) Pen] 40 mg SQ FR 01/09/22 05/17/22 Apixaban [Eliquis] 5 mg PO BID@1000,1730 05/02/22 05/17/22 Gabapentin [Neurontin] 400 mg PO Q6H 05/02/22 05/17/22 HYDROcodone/APAP 7.5-325MG [[place] 1 tab PO Q6H 05/02/22 05/17/22 7.5-325] INSULIN LISPRO (HumaLOG) [humaLOG] 4 units SQ AC-LUNCH 05/02/22 05/17/22 INSULIN LISPRO (HumaLOG) [humaLOG] See Protocol SQ AC-TID 05/02/22 05/17/22 INSULIN LISPRO (humaLOG) [humaLOG] 8 units SQ AC-SUPPER 05/02/22 05/17/22 Multivit-Min/FA/Lycopen/Lutein 1 tab PO DAILY 05/02/22 05/17/22 [Centrum Silver Tablet] Tolterodine Tartrate [Tolterodine 4 mg PO DAILY 05/02/22 05/17/22 Tartrate ER] metFORMIN HCL [Glucophage] 500 mg PO DAILY@1730 05/02/22 05/17/22 Insulin Glargine [Lantus Vial] 14 unit SQ HS 05/17/22 05/17/22 Insulin Glargine [Lantus Vial] 25 unit SQ DAILY@0700 05/17/22 05/17/22 Previous Rx's Medication Instructions Recorded Bumetanide [BUMEX] 1 mg PO DAILY #30 tab 03/07/23 Verapamil Sr [Isoptin Sr] 180 mg PO DAILY #30 tab 05/03/22 Acetaminophen Tab [Tylenol] 650 mg PO Q6HR PRN tab 05/20/22 Loratadine [Claritin] 10 mg PO DAILY #30 tab 05/20/22 Allergies Allergy/AdvReac Type Severity Reaction Status Date / Time adhesive Allergy Rash/Hives Verified 05/17/22 09:34 cephalexin [From Keflex] Allergy Rash/Hives Verified 05/17/22 09:34 grass pollen Allergy Unknown Verified 05/17/22 09:34 mold Allergy Unknown Verified 05/17/22 09:34 Sulfa (Sulfonamide Allergy Rash/Hives Verified 05/17/22 09:34 Antibiotics) newspaper ink Allergy Mild Unknown Uncoded 05/02/22 16:22 Review of Systems ROS Statement: Those systems with pertinent positive or pertinent negative responses have been documented in the HPI. ROS Other: All systems not noted in ROS Statement are negative. Past Medical History Past Medical History: Atrial Fibrillation, Coronary Artery Disease (CAD), Cancer, Diabetes Mellitus, Hyperlipidemia, Hypertension, Musculoskeletal Disorder, Neurologic Disorder, Osteoarthritis (OA), Pneumonia, Renal Disease, Rheumatoid Arthritis (RA), Skin Disorder, Thyroid Disorder Additional Past Medical History / Comment(s): Morbid obesity, chronic atrial fibrillation, diabetes mellitus type 2, hypertension, hyperlipidemia, spinal stenosis, osteoarthritis, hypothyroidism, hypertension, history of skin melanoma, history of bursitis with MRSA post I&D, rheumatoid arthritis, Sjogren's disease, 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 without any indication of ILD related to RA, Fall on July 22 transfer to [facility] for MRI, then Fall on 11/16/21 History of Any Multi-Drug Resistant Organisms: MRSA Date of last positivie culture/infection: 01/19/22 MDRO Source:: Wound Past Surgical History: Back Surgery, Breast Surgery, Cholecystectomy, Heart Catheterization, Joint Replacement, Orthopedic Surgery Additional Past Surgical History / Comment(s): Bilateral cataracts with lens implants, arthroscopies to lt wrist, gualberto knees, gualberto ankles, gualberto hips, lt hip replacment and redone, L/R shoulder sxs, rt breast bx-benign, egd/colonoscopy, skin cancer removal L arm, Lumbar fixnation possible broken Past Anesthesia/Blood Transfusion Reactions: No Reported Reaction Additional Past Anesthesia/Blood Transfusion Reaction / Comment(s): Pt has been told not to have anesthesia metabolized by the kidneys and has neurologic Sjogren's with post anesthesia paralysis. Past Psychological History: No Psychological Hx Reported Smoking Status: Former smoker Past Alcohol Use History: None Reported Past Drug Use History: None Reported - Past Family History Mother Family Medical History: CVA/TIA Additional Family Medical History / Comment(s): RUPTURED BOWEL Father Family Medical History: Cancer, Pneumonia Additional Family Medical History / Comment(s): ASPIRATIVE PNA Sister(s) Additional Family Medical History / Comment(s): at age 34 with lupus General Exam Limitations: no limitations Course Vital Signs 06/03/22 06/03/22 06/04/22 21:51 22:13 00:08 Temperature 98.2 F Pulse Rate 104 H 116 H Respiratory 18 20 Rate Blood Pressure 164/104 129/85 155/97 O2 Sat by Pulse 94 L 97 Oximetry Medical Decision Making - Lab Data Result diagrams: 06/03/22 22:04 06/03/22 22:04 Lab Results 06/03/22 06/03/22 06/03/22 Range/Units 22:04 22:04 22:04 WBC 6.2 (3.8-10.6) k/uL RBC 3.95 (3.80-5.40) m/uL Hgb 10.4 L (11.4-16.0) gm/dL Hct 33.5 L (34.0-46.0) % MCV 84.7 (80.0-100.0) fL MCH 26.2 (25.0-35.0) pg MCHC 31.0 (31.0-37.0) g/dL RDW 18.2 H (11.5-15.5) % Plt Count 159 (150-450) k/uL MPV 8.1 Neutrophils % 66 % Lymphocytes % 22 % Monocytes % 6 % Eosinophils % 3 % Basophils % 1 % Neutrophils # 4.1 (1.3-7.7) k/uL Lymphocytes # 1.4 (1.0-4.8) k/uL Monocytes # 0.4 (0-1.0) k/uL Eosinophils # 0.2 (0-0.7) k/uL Basophils # 0.0 (0-0.2) k/uL Hypochromasia Marked Anisocytosis Slight Sodium 136 L (137-145) mmol/L Potassium 4.1 (3.5-5.1) mmol/L Chloride 95 L (98-107) mmol/L Carbon Dioxide 32 H (22-30) mmol/L Anion Gap 9 mmol/L BUN 19 H (7-17) mg/dL Creatinine 0.72 (0.52-1.04) mg/dL Est GFR (CKD-EPI)AfAm >90 (>60 ml/min/1.73 sqM) Est GFR (CKD-EPI)NonAf 80 (>60 ml/min/1.73 sqM) Glucose 420 H (74-99) mg/dL Calcium 8.8 (8.4-10.2) mg/dL Total Bilirubin 0.6 (0.2-1.3) mg/dL AST 25 (14-36) U/L ALT 18 (4-34) U/L Alkaline Phosphatase 78 (38-126) U/L Troponin I (0.000-0.034) ng/mL NT-Pro-B Natriuret Pep 1890 pg/mL Total Protein 7.3 (6.3-8.2) g/dL Albumin 3.7 (3.5-5.0) g/dL 06/03/22 Range/Units 22:13 WBC (3.8-10.6) k/uL RBC (3.80-5.40) m/uL Hgb (11.4-16.0) gm/dL Hct (34.0-46.0) % MCV (80.0-100.0) fL MCH (25.0-35.0) pg MCHC (31.0-37.0) g/dL RDW (11.5-15.5) % Plt Count (150-450) k/uL MPV Neutrophils % % Lymphocytes % % Monocytes % % Eosinophils % % Basophils % % Neutrophils # (1.3-7.7) k/uL Lymphocytes # (1.0-4.8) k/uL Monocytes # (0-1.0) k/uL Eosinophils # (0-0.7) k/uL Basophils # (0-0.2) k/uL Hypochromasia Anisocytosis Sodium (137-145) mmol/L Potassium (3.5-5.1) mmol/L Chloride (98-107) mmol/L Carbon Dioxide (22-30) mmol/L Anion Gap mmol/L BUN (7-17) mg/dL Creatinine (0.52-1.04) mg/dL Est GFR (CKD-EPI)AfAm (>60 ml/min/1.73 sqM) Est GFR (CKD-EPI)NonAf (>60 ml/min/1.73 sqM) Glucose (74-99) mg/dL Calcium (8.4-10.2) mg/dL Total Bilirubin (0.2-1.3) mg/dL AST (14-36) U/L ALT (4-34) U/L Alkaline Phosphatase (38-126) U/L Troponin I 0.021 (0.000-0.034) ng/mL NT-Pro-B Natriuret Pep pg/mL Total Protein (6.3-8.2) g/dL Albumin (3.5-5.0) g/dL Disposition Clinical Impression: Blister of leg Disposition: HOME SELF-CARE Condition: Good Instructions (If sedation given, give patient instructions): Acute Wounds (ED) Is patient prescribed a controlled substance at d/c from ED?: No Referrals: Nicholas Hart MD [Primary Care Provider] - 1-2 days Time of Disposition: 00:42
--- NOTE | 2022-06-03 22:39 | XR ---
EXAMINATION TYPE: XR chest 2V DATE OF EXAM: 06/03/2022 COMPARISON: 05/20/2022 HISTORY: Shortness of breath TECHNIQUE: Frontal and lateral views of the chest are obtained. FINDINGS: Scattered senescent parenchymal changes noted. Hyperinflation compatible with COPD. No evidence for infiltrate. No evidence for atelectasis. Heart size is stable. Venous congestion without overt failure at this time. Mediastinal structures are stable and grossly unremarkable. No evidence for hilar prominence. Degenerative changes dorsal spine. IMPRESSION: 1. No evidence for acute pulmonary disease.
[2022-06-03 22:41] LABS: Anisocytosis Slight; Basophils % (A) 1 %; Eosinophils # (A) 0.2 k/uL (0-0.7); Eosinophils % (A) 3 %; HCT 33.5 % (34.0-46.0); HGB 10.4 gm/dL (11.4-16.0); Hypochromasia Marked; Lymphocytes # (A) 1.4 k/uL (1.0-4.8); Lymphocytes % (A) 22 %; MCH 26.2 pg (25.0-35.0); MCV 84.7 fL (80.0-100.0); Mean Platelet Volume 8.1; Monocytes # (A) 0.4 k/uL (0-1.0); Monocytes % (A) 6 %; Neutrophils # (A) 4.1 k/uL (1.3-7.7); Neutrophils % (A) 66 %; Platelet Count 159 k/uL (150-450); RBC 3.95 m/uL (3.80-5.40); RDW 18.2 % (11.5-15.5); WBC 6.2 k/uL (3.8-10.6)
[2022-06-03 22:50] LABS: ALT 18 U/L (4-34); AST 25 U/L (14-36); African American GFR (CKD) >90 (>60 ml/min/1.73 sqM); Albumin 3.7 g/dL (3.5-5.0); Alkaline Phosphatase 78 U/L (38-126); Anion Gap 9 mmol/L; Blood Urea Nitrogen 19 mg/dL (7-17); Calcium 8.8 mg/dL (8.4-10.2); Carbon Dioxide 32 mmol/L (22-30); Chloride 95 mmol/L (98-107); Glucose 420 mg/dL (74-99); Non-African American GFR(CKD) 80 (>60 ml/min/1.73 sqM); Potassium 4.1 mmol/L (3.5-5.1); Sodium 136 mmol/L (137-145); Total Bilirubin 0.6 mg/dL (0.2-1.3); Total Protein 7.3 g/dL (6.3-8.2)
[2022-06-04] MEDS ORDERED: BACITRACIN ZINC 500 UNIT/GM OINT 28.4 GM TUBE TOPICAL ONE (00:36)
[2022-06-04] MEDS ORDERED: MORPHINE SULFATE 4 MG/ML SYRINGE IV STA (00:37)
[2022-06-04 01:38] VITALS: BP 136/92; PULSE 102; RESP 14
== END 2022-06-04 01:38 | disposition home or self-care (01) ==
LOC: EC 21:44
DX: S80.821A Blister (nonthermal), right lower leg, initial encounter (principal); E03.9 Hypothyroidism, unspecified; E66.01 Morbid (severe) obesity due to excess calories; I10 Essential (primary) hypertension; E11.36 Type 2 diabetes mellitus with diabetic cataract; H26.9 Unspecified cataract; E11.29 Type 2 diabetes mellitus with other diabetic kidney complication; N28.9 Disorder of kidney and ureter, unspecified; Z91.048 Other nonmedicinal substance allergy status; Z88.1 Allergy status to other antibiotic agents; Z88.2 Allergy status to sulfonamides; Z91.011 Allergy to milk products; Z79.01 Long term (current) use of anticoagulants; Z90.49 Acquired absence of other specified parts of digestive tract; Z87.891 Personal history of nicotine dependence; Z95.5 Presence of coronary angioplasty implant and graft; Z79.84 Long term (current) use of oral hypoglycemic drugs; Z79.4 Long term (current) use of insulin; Z79.891 Long term (current) use of opiate analgesic; Z85.820 Personal history of malignant melanoma of skin; Z79.899 Other long term (current) drug therapy; X58.XXXA Exposure to other specified factors, initial encounter
CPT/HCPCS: 36415; 93005; 83880; 80053; 84484; 85025; 71046; 99285; 96374; 96376; J2270

== ENCOUNTER 2022-06-27 20:14 | Observation (INO) | payer MEDICARE ==
[2022-06-27] MEDS ORDERED: ASPIRIN 81 MG PO STA (21:15)
--- NOTE | 2022-06-27 21:22 | ED ---
General Adult HPI - General Chief complaint: Chest Pain Stated complaint: chest pain Time Seen by Provider: 06/27/22 21:00 Source: patient Mode of arrival: EMS Limitations: no limitations - History of Present Illness Initial comments: Dictation was produced using [employer] dictation software. please excuse any grammatical, word or spelling errors. Chief Complaint: 81-year-old female presents to emergency room for chest pain History of Present Illness: Exacerbation is an 81-year-old female presents emergency department for chest pain. Patient reports that her symptoms were episodic today. Denies any symptoms at bedside. She states that it felt like a pressure to her left anterior chest. Patient has any history of heart attack. She does have a history of cardiac disease. Patient has history of A. fib. According to her chart review shows history of diabetes, A. fib and coronary artery disease. Patient states she does not know of any blockages and ending of her coronary arteries. Denies any associated diaphoresis or nausea. Pain is nonradiating. The ROS documented in this emergency department record has been reviewed and confirmed by me. Those systems with pertinent positive or negative responses have been documented in the HPI. All other systems are other negative and/or noncontributory. - Related Data Home Medications Medication Instructions Recorded Confirmed RX: Latanoprost [Xalatan 0.005%] 1 drop BOTH EYES HS 08/11/17 05/17/22 RX: predniSONE 5 mg PO DAILY 07/23/21 05/17/22 RX: Magnesium Oxide 400 mg PO DAILY 08/30/21 05/17/22 RX: methocarbamoL [Methocarbamol] 500 mg PO HS 08/30/21 05/17/22 RX: Calcium Citrate/Vitamin D3 1 tab PO BID@1000,1730 11/16/21 05/17/22 [Citracal + D Maximum Caplet] RX: Digoxin [Lanoxin] 125 mcg PO Q2D@1000 11/16/21 05/17/22 RX: Levothyroxine Sodium 137 mcg PO HS 11/16/21 05/17/22 [Synthroid] RX: Nitroglycerin Sl Tabs 0.4 mg SL Q5M PRN 11/16/21 05/17/22 [Nitrostat] RX: Adalimumab [Humira(Cf) Pen] 40 mg SQ FR 01/09/22 05/17/22 RX: Apixaban [Eliquis] 5 mg PO BID@1000,1730 05/02/22 05/17/22 RX: Gabapentin [Neurontin] 400 mg PO Q6H 05/02/22 05/17/22 RX: HYDROcodone/APAP 7.5-325MG 1 tab PO Q6H 05/02/22 05/17/22 [[place] 7.5-325] RX: INSULIN LISPRO (HumaLOG) 4 units SQ AC-LUNCH 05/02/22 05/17/22 [humaLOG] RX: INSULIN LISPRO (HumaLOG) See Protocol SQ AC-TID 05/02/22 05/17/22 [humaLOG] RX: INSULIN LISPRO (humaLOG) 8 units SQ AC-SUPPER 05/02/22 05/17/22 [humaLOG] RX: Multivit-Min/FA/Lycopen/Lutein 1 tab PO DAILY 05/02/22 05/17/22 [Centrum Silver Tablet] RX: Tolterodine Tartrate 4 mg PO DAILY 05/02/22 05/17/22 [Tolterodine Tartrate ER] RX: metFORMIN HCL [Glucophage] 500 mg PO DAILY@1730 05/02/22 05/17/22 RX: Insulin Glargine [Lantus Vial] 14 unit SQ HS 05/17/22 05/17/22 RX: Insulin Glargine [Lantus Vial] 25 unit SQ DAILY@0700 05/17/22 05/17/22 Previous Rx's Medication Instructions Recorded RX: Bumetanide [BUMEX] 1 mg PO DAILY #30 tab 05/03/22 RX: Verapamil Sr [Isoptin Sr] 180 mg PO DAILY #30 tab 05/03/22 RX: Acetaminophen Tab [Tylenol] 650 mg PO Q6HR PRN tab 05/20/22 RX: Loratadine [Claritin] 10 mg PO DAILY #30 tab 05/20/22 Allergies Allergy/AdvReac Type Severity Reaction Status Date / Time adhesive Allergy Rash/Hives Verified 05/17/22 09:34 cephalexin [From Keflex] Allergy Rash/Hives Verified 05/17/22 09:34 grass pollen Allergy Unknown Verified 05/17/22 09:34 mold Allergy Unknown Verified 05/17/22 09:34 Sulfa (Sulfonamide Allergy Rash/Hives Verified 05/17/22 09:34 Antibiotics) newspaper ink Allergy Mild Unknown Uncoded 05/02/22 16:22 Review of Systems ROS Statement: Those systems with pertinent positive or pertinent negative responses have been documented in the HPI. ROS Other: All systems not noted in ROS Statement are negative. Past Medical History Past Medical History: Atrial Fibrillation, Coronary Artery Disease (CAD), Cancer, Diabetes Mellitus, Hyperlipidemia, Hypertension, Musculoskeletal Disorder, Neurologic Disorder, Osteoarthritis (OA), Pneumonia, Renal Disease, Rheumatoid Arthritis (RA), Skin Disorder, Thyroid Disorder Additional Past Medical History / Comment(s): Morbid obesity, chronic atrial fibrillation, diabetes mellitus type 2, hypertension, hyperlipidemia, spinal stenosis, osteoarthritis, hypothyroidism, hypertension, history of skin melanoma, history of bursitis with MRSA post I&D, rheumatoid arthritis, Sjogren's disease, 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 without any indication of ILD related to RA, Fall on July 22 transfer to [facility] for MRI, then Fall on 11/16/21 History of Any Multi-Drug Resistant Organisms: MRSA Date of last positivie culture/infection: 01/19/22 MDRO Source:: Wound Past Surgical History: Back Surgery, Breast Surgery, Cholecystectomy, Heart Catheterization, Joint Replacement, Orthopedic Surgery Additional Past Surgical History / Comment(s): Bilateral cataracts with lens imp lants, arthroscopies to lt wrist, gualberto knees, gualberto ankles, gualberto hips, lt hip replacment and redone, L/R shoulder sxs, rt breast bx-benign, egd/colonoscopy, skin cancer removal L arm, Lumbar fixnation possible broken Past Anesthesia/Blood Transfusion Reactions: No Reported Reaction Additional Past Anesthesia/Blood Transfusion Reaction / Comment(s): Pt has been told not to have anesthesia metabolized by the kidneys and has neurologic Sjogren's with post anesthesia paralysis. Past Psychological History: No Psychological Hx Reported Smoking Status: Former smoker Past Alcohol Use History: None Reported Past Drug Use History: None Reported - Past Family History Mother Family Medical History: CVA/TIA Additional Family Medical History / Comment(s): RUPTURED BOWEL Father Family Medical History: Cancer, Pneumonia Additional Family Medical History / Comment(s): ASPIRATIVE PNA Sister(s) Additional Family Medical History / Comment(s): at age 34 with lupus General Exam - General Exam Comments Initial Comments: PHYSICAL EXAM: General Impression: Alert and oriented x3, not in acute distress HEENT: Normocephalic atraumatic, extra-ocular movements intact, pupils equal and reactive to light bilaterally, mucous membranes moist. Cardiovascular: Heart regular rate and rhythm Chest: Able to complete full sentences, no retractions, no tachypnea Abdomen: abdomen soft, non-tender, non-distended, no organomegaly Musculoskeletal: Pulses present and equal in all extremities, no peripheral edema Motor: no focal deficits noted Neurological: CN II-XII grossly intact, no focal motor or sensory deficits noted Skin: Intact with no visualized rashes Psych: Normal affect and mood Limitations: no limitations Course Vital Signs 06/27/22 06/27/22 20:22 23:42 Temperature 97.9 F Pulse Rate 110 H 88 Respiratory 18 22 Rate Blood Pressure 143/91 143/91 O2 Sat by Pulse 95 95 Oximetry EKG Findings - EKG Comments: EKG Findings:: My EKG interpretation: Ventricular rate 81, A. fib, QRS 113, QTC 452. no QTC prolongation, no ST or T-wave changes noted. EKG compared to 06/03/2022 showing no changes. Overall, this EKG is unremarkable Medical Decision Making - Medical Decision Making Was pt. sent in by a medical professional or institution (, PA, LADIES' LOCKER ROOM ATTENDANT, urgent care, hospital, or intermediate...) When possible be specific @ -No Did you speak to anyone other than the patient for history (EMS, parent, family, police, friend...)? What history was obtained from this source @ -No Did you review nursing and triage notes (agree or disagree)? Why? @ -I reviewed and agree with nursing and triage notes Were old charts reviewed (outside hosp., previous admission, EMS record, old EKG, old radiological studies, urgent care reports/EKG's, intermediate records)? Report findings @ -Old charts reviewed showing that patient had been admitted for chest pain multiple occasions. She is had positive troponin levels in the past. Differential Diagnosis (chest pain, altered mental status, abdominal pain women, abdominal pain men, vaginal bleeding, musculoskeletal, weakness, fever, dyspnea, syncope, headache, dizziness, GI bleed, back pain, seizure, CVA, palpatations, mental health)? @ -Differential Chest Pain: Stable Angina, Unstable Angina, STEMI, NSTEMI Aortic Dissection, Pneumothorax, Musculoskeletal, Esophageal Spasm GERD, Cholecystitis, Pancreatitis, Zoster, this is not meant to be an all-inclusive list. EKG interpreted by me (3pts min.). @ -As above X-rays interpreted by me (1pt min.). @ -Mild cardiomegaly, mild pulmonary vascular congestion CT interpreted by me (1pt min.). @ -None done U/S interpreted by me (1pt. min.). @ -None done What testing was considered but not performed or refused? (CT, X-rays, U/S, labs)? Why? @ -None What meds were considered but not given or refused? Why? @ -None Did you discuss the management of the patient with other professionals (professionals i.e. , PA, LADIES' LOCKER ROOM ATTENDANT, lab, RT, psych nurse, sr. social media & mobile manager, visual merchandising coordinator, teacher, community service patrol officer, wrapper caser)? Give summary @ -Discussed with Dr. Hart for admission. Clinical presentation including results of lab and imaging studies were told to Dr. Hart Was smoking cessation discussed for >3mins.? @ -No Was critical care preformed (if so, how long)? @ -No Were there social determinants of health that impacted care today? How? (H omelessness, low income, unemployed, alcoholism, drug addiction, transportation, low edu. Level, literacy, decrease access to med. care, penitentiary, rehab)? @ -No Was there de-escalation of care discussed even if they declined (Discuss DNR or withdrawal of care, Hospice)? DNR status @ -No What co-morbidities impacted this encounter? (DM, HTN, Smoking, COPD, CAD, Cancer, CVA, ARF, Chemo, Hep., AIDS, mental health diagnosis, sleep apnea, morbid obesity)? @ -None Was patient admitted / discharged? Hospital course, mention meds given and route, prescriptions, significant lab abnormalities, going to OR and other pertinent info. @ -9-year-old female presents emergency department with episodic chest pain. Vital signs upon arrival are within acceptable limits. EKG appears to be baseline. Patient asymptomatic. She has a mildly elevated troponin. Patient will be admitted for cardiac monitoring cartilage consultation. Undiagnosed new problem with uncertain prognosis? @ -No Drug Therapy requiring intensive monitoring for toxicity (Heparin, Nitro, Insulin, Cardizem)? @ -No Were any procedures done? @ -No Diagnosis/symptom? Acute, or Chronic, or Acute on Chronic? Uncomplicated (without systemic symptoms) or Complicated (systemic symptoms)? @ -1. Chest pain Side effects of treatment? @ -No Exacerbation, Progression, or Severe Exacerbation? @ -No Poses a threat to life or bodily function? How? (Chest pain, [place], AR, pneumonia, PE, COPD, DKA, ARF, appy, cholecystitis, CVA, Diverticulitis, Homicidal, Suicidal, threat to staff... and all critical care pts) @ -yes - Lab Data Result diagrams: 06/27/22 20:38 06/27/22 20:38 Lab Results 06/27/22 06/27/22 06/27/22 Range/Units 20:38 20:38 20:38 WBC 6.4 (3.8-10.6) k/uL RBC 4.20 (3.80-5.40) m/uL Hgb 10.8 L (11.4-16.0) gm/dL Hct 35.8 (34.0-46.0) % MCV 85.2 (80.0-100.0) fL MCH 25.8 (25.0-35.0) pg MCHC 30.3 L (31.0-37.0) g/dL RDW 18.4 H (11.5-15.5) % Plt Count 174 (150-450) k/uL MPV 8.1 Neutrophils % 63 % Lymphocytes % 26 % Monocytes % 7 % Eosinophils % 2 % Basophils % 0 % Neutrophils # 4.0 (1.3-7.7) k/uL Lymphocytes # 1.6 (1.0-4.8) k/uL Monocytes # 0.4 (0-1.0) k/uL Eosinophils # 0.1 (0-0.7) k/uL Basophils # 0.0 (0-0.2) k/uL Hypochromasia Marked Anisocytosis Slight PT 11.3 (9.0-12.0) sec INR 1.1 (<1.2) APTT 23.9 (22.0-30.0) sec Sodium 136 L (137-145) mmol/L Potassium 3.8 (3.5-5.1) mmol/L Chloride 95 L (98-107) mmol/L Carbon Dioxide 30 (22-30) mmol/L Anion Gap 11 mmol/L BUN 21 H (7-17) mg/dL Creatinine 0.66 (0.52-1.04) mg/dL Est GFR (CKD-EPI)AfAm >90 (>60 ml/min/1.73 sqM) Est GFR (CKD-EPI)NonAf 84 (>60 ml/min/1.73 sqM) Glucose 383 H (74-99) mg/dL Calcium 9.1 (8.4-10.2) mg/dL Magnesium 1.8 (1.6-2.3) mg/dL Total Bilirubin 0.5 (0.2-1.3) mg/dL AST 46 H (14-36) U/L ALT 23 (4-34) U/L Alkaline Phosphatase 96 (38-126) U/L Troponin I (0.000-0.034) ng/mL Total Protein 7.7 (6.3-8.2) g/dL Albumin 3.9 (3.5-5.0) g/dL 06/27/22 Range/Units 20:38 WBC (3.8-10.6) k/uL RBC (3.80-5.40) m/uL Hgb (11.4-16.0) gm/dL Hct (34.0-46.0) % MCV (80.0-100.0) fL MCH (25.0-35.0) pg MCHC (31.0-37.0) g/dL RDW (11.5-15.5) % Plt Count (150-450) k/uL MPV Neutrophils % % Lymphocytes % % Monocytes % % Eosinophils % % Basophils % % Neutrophils # (1.3-7.7) k/uL Lymphocytes # (1.0-4.8) k/uL Monocytes # (0-1.0) k/uL Eosinophils # (0-0.7) k/uL Basophils # (0-0.2) k/uL Hypochromasia Anisocytosis PT (9.0-12.0) sec INR (<1.2) APTT (22.0-30.0) sec Sodium (137-145) mmol/L Potassium (3.5-5.1) mmol/L Chloride (98-107) mmol/L Carbon Dioxide (22-30) mmol/L Anion Gap mmol/L BUN (7-17) mg/dL Creatinine (0.52-1.04) mg/dL Est GFR (CKD-EPI)AfAm (>60 ml/min/1.73 sqM) Est GFR (CKD-EPI)NonAf (>60 ml/min/1.73 sqM) Glucose (74-99) mg/dL Calcium (8.4-10.2) mg/dL Magnesium (1.6-2.3) mg/dL Total Bilirubin (0.2-1.3) mg/dL AST (14-36) U/L ALT (4-34) U/L Alkaline Phosphatase (38-126) U/L Troponin I 0.035 H* (0.000-0.034) ng/mL Total Protein (6.3-8.2) g/dL Albumin (3.5-5.0) g/dL Disposition Clinical Impression: Chest pain Disposition: ADMITTED IP TO THIS HOSP Condition: Fair Referrals: Nicholas Hart MD [Primary Care Provider] - 1-2 days Decision Time: 21:00
[2022-06-27 22:24] LABS: Anisocytosis Slight; Basophils % (A) 0 %; Eosinophils # (A) 0.1 k/uL (0-0.7); Eosinophils % (A) 2 %; HCT 35.8 % (34.0-46.0); HGB 10.8 gm/dL (11.4-16.0); Hypochromasia Marked; Lymphocytes # (A) 1.6 k/uL (1.0-4.8); Lymphocytes % (A) 26 %; MCH 25.8 pg (25.0-35.0); MCHC 30.3 g/dL (31.0-37.0); MCV 85.2 fL (80.0-100.0); Mean Platelet Volume 8.1; Monocytes # (A) 0.4 k/uL (0-1.0); Monocytes % (A) 7 %; Neutrophils % (A) 63 %; Platelet Count 174 k/uL (150-450); RDW 18.4 % (11.5-15.5); WBC 6.4 k/uL (3.8-10.6)
[2022-06-27 22:36] LABS: INR 1.1 (<1.2); Partial Thromboplastin Time 23.9 sec (22.0-30.0); Prothrombin Time 11.3 sec (9.0-12.0)
[2022-06-27 22:37] LABS: ALT 23 U/L (4-34); AST 46 U/L (14-36); African American GFR (CKD) >90 (>60 ml/min/1.73 sqM); Albumin 3.9 g/dL (3.5-5.0); Alkaline Phosphatase 96 U/L (38-126); Anion Gap 11 mmol/L; Blood Urea Nitrogen 21 mg/dL (7-17); Calcium 9.1 mg/dL (8.4-10.2); Carbon Dioxide 30 mmol/L (22-30); Chloride 95 mmol/L (98-107); Glucose 383 mg/dL (74-99); Magnesium 1.8 mg/dL (1.6-2.3); Non-African American GFR(CKD) 84 (>60 ml/min/1.73 sqM); Potassium 3.8 mmol/L (3.5-5.1); Sodium 136 mmol/L (137-145); Total Bilirubin 0.5 mg/dL (0.2-1.3); Total Protein 7.7 g/dL (6.3-8.2)
--- NOTE | 2022-06-27 23:45 | XR ---
EXAM: XR Chest, 2 Views CLINICAL HISTORY: ITS.REASON XR Reason: Chest Pain TECHNIQUE: Frontal and lateral views of the chest. COMPARISON: Chest x-ray study of 06/03/2022. FINDINGS: Lungs: Prominence of central pulmonary vasculature and interstitial prominence. Consider incipient congestive heart failure. Pleural space: Unremarkable. No pneumothorax. Heart: There is cardiomegaly. Mediastinum: Unremarkable. Bones/joints: Unremarkable. Vasculature: Atherosclerotic disease. Upper abdomen: There is elevation of the right hemidiaphragm. IMPRESSION: 1. Cardiomegaly. 2. Prominence of central pulmonary vascular. 3. Consider incipient congestive heart failure. 4. Atherosclerotic disease. 5. No pleural effusions.
[2022-06-27] MEDS ORDERED: GABAPENTIN 400 MG CAP PO STA (23:46)
[2022-06-28] MEDS ORDERED: NITROGLYCERIN SL TABS 0.4 MG TAB SUBLINGUAL PRN (02:38)
[2022-06-28] MEDS ORDERED: HYDROcodone/APAP 5-325MG 1 EACH TAB PO STA (02:39)
[2022-06-28] MEDS ORDERED: MORPHINE SULFATE 4 MG/ML SYRINGE IV STA (06:03)
[2022-06-28 08:02] VITALS: RESP 20
[2022-06-28 08:21] LABS: Glucose,Whole Blood 291 mg/dL (70-110)
[2022-06-28] MEDS ORDERED: ALBUTEROL NEBULIZED 2.5 MG/3 ML INHALATION PRN (08:37)
[2022-06-28] MEDS ORDERED: ACETAMINOPHEN TAB 325 MG TAB PO PRN (08:37)
[2022-06-28] MEDS ORDERED: LORATADINE 10 MG TAB PO SCH (09:00)
[2022-06-28] MEDS ORDERED: TAMSULOSIN 0.4 MG CAP.ER.24H PO SCH (09:00)
[2022-06-28] MEDS ORDERED: MAGNESIUM OXIDE 400 MG TAB PO SCH (09:00)
[2022-06-28] MEDS ORDERED: INSULIN DETEMIR (LEVEMIR) 100 UNIT/ML SYR SQ SCH ×2 (09:00→21:00)
[2022-06-28] MEDS ORDERED: BUMETANIDE 1 MG TAB PO SCH (09:00)
[2022-06-28] MEDS ORDERED: VERAPAMIL SR 180 MG TABLET.ER PO SCH (09:00)
[2022-06-28] MEDS ORDERED: MULTIVITAMINS, THERA 1 EACH TAB PO SCH (09:00)
[2022-06-28] MEDS ORDERED: OXYBUTYNIN XL 5 MG TAB.ER.24 PO SCH (09:00)
--- NOTE | 2022-06-28 09:10 | P.HPIM ---
History of Present Illness H&P Date: 06/28/22 Chief Complaint: Chest pain This is an 81-year-old female who presented to the emergency room with complaints of chest pain. Chest pain has been episodic throughout the day. She states the pain is in the left anterior chest, no radiation. Patient does have a history of A. fib, diabetes, CHF and CAD. Patient lives at home with her cares for her. Patient has been in our office recently with complaints of bilateral lower leg weeping and blisters forming. Patient is seen this morning laying in bed. She denies any current chest pain. Review of Systems Constitutional: Denies chills, Denies fever Cardiovascular: Reports chest pain, Reports dyspnea on exertion, Reports leg edema Respiratory: Denies cough, Denies dyspnea Gastrointestinal: Denies abdominal pain, Denies nausea, Denies vomiting Musculoskeletal: Denies arm numbness/tingling, Denies leg numbness/tingling Integumentary: Reports dryness Neurological: Reports weakness, Denies headaches Past Medical History Past Medical History: Atrial Fibrillation, Coronary Artery Disease (CAD), Cancer, Diabetes Mellitus, Hyperlipidemia, Hypertension, Musculoskeletal Disorder, Neurologic Disorder, Osteoarthritis (OA), Pneumonia, Renal Disease, Rheumatoid Arthritis (RA), Skin Disorder, Thyroid Disorder Additional Past Medical History / Comment(s): Morbid obesity, chronic atrial fibrillation, diabetes mellitus type 2, hypertension, hyperlipidemia, spinal stenosis, osteoarthritis, hypothyroidism, hypertension, history of skin m elanoma, history of bursitis with MRSA post I&D, rheumatoid arthritis, Sjogren's disease, 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 without any indication of ILD related to RA, Fall on July 22 transfer to [facility] for MRI, then Fall on 11/16/21 History of Any Multi-Drug Resistant Organisms: MRSA Date of last positivie culture/infection: 01/19/22 MDRO Source:: Wound Past Surgical History: Back Surgery, Breast Surgery, Cholecystectomy, Heart Catheterization, Joint Replacement, Orthopedic Surgery Additional Past Surgical History / Comment(s): Bilateral cataracts with lens implants, arthroscopies to lt wrist, gualberto knees, gualberto ankles, gualberto hips, lt hip replacment and redone, L/R shoulder sxs, rt breast bx-benign, egd/colonoscopy, skin cancer removal L arm, Lumbar fixnation possible broken Past Anesthesia/Blood Transfusion Reactions: No Reported Reaction Additional Past Anesthesia/Blood Transfusion Reaction / Comment(s): Pt has been told not to have anesthesia metabolized by the kidneys and has neurologic Sjogren's with post anesthesia paralysis. Past Psychological History: No Psychological Hx Reported Smoking Status: Former smoker Past Alcohol Use History: None Reported Past Drug Use History: None Reported - Past Family History Mother Family Medical History: CVA/TIA Additional Family Medical History / Comment(s): RUPTURED BOWEL Father Family Medical History: Cancer, Pneumonia Additional Family Medical History / Comment(s): ASPIRATIVE PNA Sister(s) Additional Family Medical History / Comment(s): at age 34 with lupus Medications and Allergies Home Medications Medication Instructions Recorded Confirmed Type Latanoprost [Xalatan 0.005%] 1 drop BOTH EYES HS 08/11/17 06/28/22 History predniSONE 5 mg PO DAILY 07/23/21 06/28/22 History Magnesium Oxide 400 mg PO DAILY 08/30/21 06/28/22 History methocarbamoL [Methocarbamol] 500 mg PO HS 08/30/21 06/28/22 History Calcium Citrate/Vitamin D3 1 tab PO BID@1000,1730 11/16/21 06/28/22 History [Citracal + D Maximum Caplet] Digoxin [Lanoxin] 125 mcg PO Q2D@1000 11/16/21 06/28/22 History Levothyroxine Sodium [Synthroid] 137 mcg PO HS 11/16/21 06/28/22 History Nitroglycerin Sl Tabs [Nitrostat] 0.4 mg SL Q5M PRN 11/16/21 06/28/22 History Adalimumab [Humira(Cf) Pen] 40 mg SQ FR 01/09/22 06/28/22 History Apixaban [Eliquis] 5 mg PO BID@1000,1730 05/02/22 06/28/22 History Gabapentin [Neurontin] 400 mg PO Q6H 05/02/22 06/28/22 History HYDROcodone/APAP 7.5-325MG [[place] 1 tab PO Q6H 05/02/22 06/28/22 History 7.5-325] INSULIN LISPRO (HumaLOG) [humaLOG] 4 units SQ AC-LUNCH 05/02/22 06/28/22 History INSULIN LISPRO (HumaLOG) [humaLOG] See Protocol SQ AC-TID 05/02/22 06/28/22 History INSULIN LISPRO (humaLOG) [humaLOG] 8 units SQ AC-SUPPER 05/02/22 06/28/22 History Multivit-Min/FA/Lycopen/Lutein 1 tab PO DAILY 05/02/22 06/28/22 History [Centrum Silver Tablet] Tolterodine Tartrate [Tolterodine 4 mg PO DAILY 05/02/22 06/28/22 History Tartrate ER] metFORMIN HCL [Glucophage] 500 mg PO DAILY@1730 05/02/22 06/28/22 History Bumetanide [BUMEX] 1 mg PO DAILY #30 tab 05/03/22 06/28/22 Rx Verapamil Sr [Isoptin Sr] 180 mg PO DAILY #30 tab 05/03/22 06/28/22 Rx Insulin Glargine [Lantus Vial] 14 unit SQ HS 05/17/22 06/28/22 History Insulin Glargine [Lantus Vial] 25 unit SQ DAILY@0700 05/17/22 06/28/22 History Acetaminophen Tab [Tylenol] 650 mg PO Q6HR PRN tab 05/20/22 06/28/22 Rx Loratadine [Claritin] 10 mg PO DAILY #30 tab 05/20/22 06/28/22 Rx Albuterol Nebulized [Ventolin 2.5 mg INHALATION RT-Q6H PRN 06/28/22 06/28/22 History Nebulized] Mupirocin 2% Oint [Bactroban 2% 1 applic TOPICAL BID PRN 06/28/22 06/28/22 History Oint] SILVER sulfADIAZINE Cream 1 applic TOPICAL BID PRN 06/28/22 06/28/22 History [Silvadene 1% Cream] Tamsulosin [Flomax] 0.4 mg PO DAILY 06/28/22 06/28/22 History Allergies Allergy/AdvReac Type Severity Reaction Status Date / Time adhesive Allergy Rash/Hives Verified 06/28/22 06:37 cephalexin [From Keflex] Allergy Rash/Hives Verified 06/28/22 06:37 grass pollen Allergy Unknown Verified 06/28/22 06:37 mold Allergy Unknown Verified 06/28/22 06:37 Sulfa (Sulfonamide Allergy Rash/Hives Verified 06/28/22 06:37 Antibiotics) newspaper ink Allergy Mild Unknown Uncoded 06/28/22 06:37 Physical Exam Vitals: Vital Signs Temp Pulse Pulse Resp BP BP Pulse Ox 06/28/22 08:01 96.9 F L 80 20 151/100 99 06/28/22 06:12 94 22 143/91 94 L 06/28/22 05:12 92 22 143/91 94 L 06/28/22 02:26 90 22 143/91 97 06/27/22 23:42 88 22 143/91 95 06/27/22 20:22 97.9 F 110 H 18 143/91 95 Intake and Output 06/27/22 06/28/22 06/28/22 22:59 06:59 14:59 Output Total 200 Balance -200 Output: Urine 200 Other: Voiding Method External Catheter Weight 127.006 kg 127.006 kg - Constitutional General appearance: cooperative, no acute distress - EENT Eyes: EOMI, PERRLA - Neck Neck: no lymphadenopathy, normal ROM, no rigidity - Respiratory Respiratory: bilateral: CTA - Cardiovascular Rhythm: irregularly irregular - Gastrointestinal General gastrointestinal: soft, no tenderness - Integumentary Bilateral lower legs wrapped with Kerlix Integumentary: normal - Musculoskeletal Musculoskeletal: generalized weakness - Psychiatric Psychiatric: A&O x's 3, appropriate affect, intact judgment & insight Results CBC & Chem 7: 06/27/22 20:38 06/27/22 20:38 Labs: Abnormal Lab Results - Last 24 Hours (Table) 06/27/22 06/27/22 06/27/22 Range/Units 20:38 20:38 20:38 Hgb 10.8 L (11.4-16.0) gm/dL MCHC 30.3 L (31.0-37.0) g/dL RDW 18.4 H (11.5-15.5) % Sodium 136 L (137-145) mmol/L Chloride 95 L (98-107) mmol/L BUN 21 H (7-17) mg/dL Glucose 383 H (74-99) mg/dL POC Glucose (mg/dL) (70-110) mg/dL AST 46 H (14-36) U/L Troponin I 0.035 H* (0.000-0.034) ng/mL 06/28/22 06/28/22 Range/Units 04:03 08:18 Hgb (11.4-16.0) gm/dL MCHC (31.0-37.0) g/dL RDW (11.5-15.5) % Sodium (137-145) mmol/L Chloride (98-107) mmol/L BUN (7-17) mg/dL Glucose (74-99) mg/dL POC Glucose (mg/dL) 291 H (70-110) mg/dL AST (14-36) U/L Troponin I 0.050 H* (0.000-0.034) ng/mL Assessment and Plan (1) CHF (congestive heart failure) Current Visit: Yes Status: Acute Code(s): I50.9 - HEART FAILURE, UNSPECIFIED SNOMED Code(s): 86737745 (2) Chest pain Current Visit: Yes Status: Acute Code(s): R07.9 - CHEST PAIN, UNSPECIFIED SNOMED Code(s): 67745518 (3) Atrial fibrillation Current Visit: No Status: Acute Code(s): I48.91 - UNSPECIFIED ATRIAL FIBRILLATION SNOMED Code(s): 04769436 (4) CAD (coronary artery disease) Current Visit: No Status: Acute Code(s): I25.10 - ATHSCL HEART DISEASE OF [place] CORONARY ARTERY W/O ANG PCTRS SNOMED Code(s): 02317677 (5) Diabetes Current Visit: No Status: Acute Code(s): E11.9 - TYPE 2 DIABETES MELLITUS WITHOUT COMPLICATIONS SNOMED Code(s): 27443960 (6) Generalized weakness Current Visit: No Status: Acute Code(s): R53.1 - WEAKNESS SNOMED Code(s): 19584286 (7) Hypertension Current Visit: No Status: Acute Code(s): I10 - ESSENTIAL (PRIMARY) HYPERTENSION SNOMED Code(s): 06173543 Plan: Medications have been reconciled. Check CBC and CMP in the morning. Cardiology has been consulted. Patient seen and evaluated by nurse practitioner, physician in agreement with plan
[2022-06-28] MEDS ORDERED: APIXABAN 5 MG TAB PO SCH (10:00)
[2022-06-28] MEDS ORDERED: GABAPENTIN 400 MG CAP PO SCH (10:00)
[2022-06-28] MEDS ORDERED: CALCIUM CARB-VIT D 500 MG-5 MCG TAB PO SCH (10:00)
[2022-06-28] MEDS ORDERED: HYDROcodone/APAP 7.5-325MG 1 EACH TAB PO SCH (10:00)
[2022-06-28] MEDS ORDERED: DIGOXIN 125 MCG TAB PO SCH (10:00)
[2022-06-28 11:32] LABS: Glucose,Whole Blood 269 mg/dL (70-110)
[2022-06-28 11:51] VITALS: BP 124/67; PULSE 79; TEMP 97
--- NOTE | 2022-06-28 11:51 | P.CRDCN ---
History of Present Illness Consult date: 06/28/22 History of present illness: HISTORY OF PRESENT ILLNESS: This is a 81-year-old female with a past medical history significant for artery disease, permanent atrial fibrillation, hypertension, hyperlipidemia, congestive heart failure, chronic lung disease, and morbid obesity. Patient follows in the office with Dr. George. We have been asked to see the patient in consultation for chest pain. Patient examined at the bedside. Patient states that she didn't really have chest pain at home but does describe it as an aching sensation in her chest. She denied any shortness of breath. Denied any radiation of the pain. Denied any nausea or vomiting. She denies any pain or pressure at the time of examination. Vital signs are stable. * EKG reveals atrial fibrillation with nonspecific ST-T wave changes * Chest xray cardiomegaly, prominence of central pulmonary vasculature * Laboratory data: W BC 6.4. Hemoglobin 10.8. Platelet count 174. Sodium 136. Potassium 3.8. BUN 21. Creatinine 0.66. Troponin 0.035. 0.050. 0.041. * Current home cardiac medications include Eliquis 5mg BID, Bumex 1 mg daily, digoxin 125 g every 2 days, verapamil 180 mg daily * Most recent echocardiogram obtained in April 2022 revealing ejection fraction 45-50% * Cardiac catheterization history: August 2017 revealing intermediate disease involving the mid left circumflex which is a medium caliber vessel. REVIEW OF SYSTEMS: At the time of my exam: CONSTITUTIONAL: Denies fever or chills. HEENT: Denies blurred vision, vision changes, or eye pain. Denies hemoptysis CARDIOVASCULAR: Denies chest pain. Denies orthopnea. Denies PND. Denies palpitations RESPIRATORY: Denies shortness of breath. GASTROINTESTINAL: Denies abdominal pain. Denies nausea or vomiting. HEMATOLOGIC: Denies bleeding disorders. GENITOURINARY: Denies any blood in urine. SKIN: Denies pruitis. Denies rash. PHYSICAL EXAM: VITAL SIGNS: Reviewed. GENERAL: Well-developed in no acute distress. HEENT: Head is normocephalic. Pupils are equal, round. Sclerae anicteric. Mucous membranes of the mouth are moist. Neck supple. No JVD or thyromegaly LUNGS: Respirations even and unlabored. Lungs essentially clear to auscultation bilaterally. HEART: Regular rate and rhythm. S1 and S2 heard. ABDOMEN: Soft. Nondistended. Nontender. EXTREMITIES: Normal range of motion. No clubbing or cyanosis. Peripheral pulses intact. Bilateral lower extremity edema with chronic skin changes noted. Rocael wrap noted to both legs. NEUROLOGIC: Awake and alert. Oriented x 3. ASSESSMENT: Chest pain, atypical Abnormal troponin, flat, not suggestive of ACS Nonobstructive coronary artery disease Hypertension Hyperlipidemia Peripheral vascular disease Diabetes Permanent atrial fibrillation Chronic lung disease Morbid obesity PLAN: Resume home cardiac medications Per Dr. Menedz, patient may be discharged home today and follow up with Dr. George in the office for outpatient stress testing We will sign off. Please reconsult if needed Nurse practitioner note has been reviewed by physician. Signing provider agrees with the documented findings, assessment, and plan of care. Past Medical History Past Medical History: Atrial Fibrillation, Coronary Artery Disease (CAD), Cancer, Diabetes Mellitus, Hyperlipidemia, Hypertension, Musculoskeletal Di sorder, Neurologic Disorder, Osteoarthritis (OA), Pneumonia, Renal Disease, Rheumatoid Arthritis (RA), Skin Disorder, Thyroid Disorder Additional Past Medical History / Comment(s): Morbid obesity, chronic atrial fibrillation, diabetes mellitus type 2, hypertension, hyperlipidemia, spinal stenosis, osteoarthritis, hypothyroidism, hypertension, history of skin melanoma, history of bursitis with MRSA post I&D, rheumatoid arthritis, Sjogren's disease, 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 without any indication of ILD related to RA, Fall on July 22 transfer [facility] for [facility], then Fall on 11/16/21 History of Any Multi-Drug Resistant Organisms: MRSA Date of last positivie culture/infection: 01/19/22 MDRO Source:: Wound Past Surgical History: Back Surgery, Breast Surgery, Cholecystectomy, Heart Catheterization, Joint Replacement, Orthopedic Surgery Additional Past Surgical History / Comment(s): Bilateral cataracts with lens implants, arthroscopies to lt wrist, gualberto knees, gualberto ankles, gualberto hips, lt hip replacment and redone, L/R shoulder sxs, rt breast bx-benign, egd/colonoscopy, skin cancer removal L arm, Lumbar fixnation possible broken Past Anesthesia/Blood Transfusion Reactions: No Reported Reaction Additional Past Anesthesia/Blood Transfusion Reaction / Comment(s): Pt has been told not to have anesthesia metabolized by the kidneys and has neurologic Sjogren's with post anesthesia paralysis. Smoking Status: Former smoker - Past Family History Mother Family Medical History: CVA/TIA Additional Family Medical History / Comment(s): RUPTURED BOWEL Father Family Medical History: Cancer, Pneumonia Additional Family Medical History / Comment(s): ASPIRATIVE PNA Sister(s) Additional Family Medical History / Comment(s): at age 34 with lupus Medications and Allergies Home Medications Medication Instructions Recorded Confirmed Type Latanoprost [Xalatan 0.005%] 1 drop BOTH EYES HS 08/11/17 06/28/22 History predniSONE 5 mg PO DAILY 07/23/21 06/28/22 History Magnesium Oxide 400 mg PO DAILY 08/30/21 06/28/22 History methocarbamoL [Methocarbamol] 500 mg PO HS 08/30/21 06/28/22 History Calcium Citrate/Vitamin D3 1 tab PO BID@1000,1730 11/16/21 06/28/22 History [Citracal + D Maximum Caplet] Digoxin [Lanoxin] 125 mcg PO Q2D@1000 11/16/21 06/28/22 History Levothyroxine Sodium [Synthroid] 137 mcg PO HS 11/16/21 06/28/22 History Nitroglycerin Sl Tabs [Nitrostat] 0.4 mg SL Q5M PRN 11/16/21 06/28/22 History Adalimumab [Humira(Cf) Pen] 40 mg SQ FR 01/09/22 06/28/22 History Apixaban [Eliquis] 5 mg PO BID@1000,1730 05/02/22 06/28/22 History Gabapentin [Neurontin] 400 mg PO Q6H 05/02/22 06/28/22 History HYDROcodone/APAP 7.5-325MG [[place] 1 tab PO Q6H 05/02/22 06/28/22 History 7.5-325] INSULIN LISPRO (HumaLOG) [humaLOG] 4 units SQ AC-LUNCH 05/02/22 06/28/22 History INSULIN LISPRO (HumaLOG) [humaLOG] See Protocol SQ AC-TID 05/02/22 06/28/22 History INSULIN LISPRO (humaLOG) [humaLOG] 8 units SQ AC-SUPPER 05/02/22 06/28/22 History Multivit-Min/FA/Lycopen/Lutein 1 tab PO DAILY 05/02/22 06/28/22 History [Centrum Silver Tablet] Tolterodine Tartrate [Tolterodine 4 mg PO DAILY 05/02/22 06/28/22 History Tartrate ER] metFORMIN HCL [Glucophage] 500 mg PO DAILY@1730 05/02/22 06/28/22 History Bumetanide [BUMEX] 1 mg PO DAILY #30 tab 05/03/22 06/28/22 Rx Verapamil Sr [Isoptin Sr] 180 mg PO DAILY #30 tab 05/03/22 06/28/22 Rx Insulin Glargine [Lantus Vial] 14 unit SQ HS 05/17/22 06/28/22 History Insulin Glargine [Lantus Vial] 25 unit SQ DAILY@0700 05/17/22 06/28/22 History Acetaminophen Tab [Tylenol] 650 mg PO Q6HR PRN tab 05/20/22 06/28/22 Rx Loratadine [Claritin] 10 mg PO DAILY #30 tab 05/20/22 06/28/22 Rx Albuterol Nebulized [Ventolin 2.5 mg INHALATION RT-Q6H PRN 06/28/22 06/28/22 History Nebulized] Mupirocin 2% Oint [Bactroban 2% 1 applic TOPICAL BID PRN 06/28/22 06/28/22 History Oint] SILVER sulfADIAZINE Cream 1 applic TOPICAL BID PRN 06/28/22 06/28/22 History [Silvadene 1% Cream] Tamsulosin [Flomax] 0.4 mg PO DAILY 06/28/22 06/28/22 History Allergies Allergy/AdvReac Type Severity Reaction Status Date / Time adhesive Allergy Rash/Hives Verified 06/28/22 06:37 cephalexin [From Keflex] Allergy Rash/Hives Verified 06/28/22 06:37 grass pollen Allergy Unknown Verified 06/28/22 06:37 mold Allergy Unknown Verified 06/28/22 06:37 Sulfa (Sulfonamide Allergy Rash/Hives Verified 06/28/22 06:37 Antibiotics) newspaper ink Allergy Mild Unknown Uncoded 06/28/22 06:37 Physical Exam Vitals: Vital Signs Temp Pulse Pulse Resp BP BP Pulse Ox 06/28/22 08:01 96.9 F L 80 20 151/100 99 06/28/22 06:12 94 22 143/91 94 L 06/28/22 05:12 92 22 143 94 L 06/28/22 02:26 90 22 143 97 06/27/22 23:42 88 22 143 95 06/27/22 20:22 97.9 F 110 H 18 95 Intake and Output 06/27/22 06/28/22 06/28/22 22:59 06:59 14:59 Output Total 450 Balance -450 Output: Urine 450 Other: Voiding Method External Catheter Weight 127.006 kg 127.006 kg 127.006 kg Results 06/27/22 20:38 06/27/22 20:38 Cardiac Enzymes 06/27/22 06/27/22 06/28/22 Range/Units 20:38 20:38 04:03 AST 46 H (14-36) U/L Troponin I 0.035 H* 0.050 H* (0.000-0.034) ng/mL 06/28/22 Range/Units 09:20 AST (14-36) U/L Troponin I 0.041 H* (0.000-0.034) ng/mL Coagulation 06/27/22 Range/Units 20:38 PT 11.3 (9.0-12.0) sec APTT 23.9 (22.0-30.0) sec CBC 06/27/22 Range/Units 20:38 WBC 6.4 (3.8-10.6) k/uL RBC 4.20 (3.80-5.40) m/uL Hgb 10.8 L (11.4-16.0) gm/dL Hct 35.8 (34.0-46.0) % Plt Count 174 (150-450) k/uL Comprehensive Metabolic Panel 06/27/22 Range/Units 20:38 Sodium 136 L (137-145) mmol/L Potassium 3.8 (3.5-5.1) mmol/L Chloride 95 L (98-107) mmol/L Carbon Dioxide 30 (22-30) mmol/L BUN 21 H (7-17) mg/dL Creatinine 0.66 (0.52-1.04) mg/dL Glucose 383 H (74-99) mg/dL Calcium 9.1 (8.4-10.2) mg/dL AST 46 H (14-36) U/L ALT 23 (4-34) U/L Alkaline Phosphatase 96 (38-126) U/L Total Protein 7.7 (6.3-8.2) g/dL Albumin 3.9 (3.5-5.0) g/dL Current Medications Generic Name Dose Route Start Last Admin Trade Name Freq PRN Reason Stop Dose Admin Acetaminophen 650 mg 06/28/22 08:37 Acetaminophen Tab 325 Mg Tab PO Q6HR PRN Mild Pain or Fever > 100.5 Hydrocodone Bitart/Acetaminophen 1 each 06/28/22 10:00 06/28/22 10:52 Hydrocodone/Apap 7.5-325mg 1 Each Tab PO 1 each Q6H ASHUTOSH Administration Albuterol Sulfate 2.5 mg 06/28/22 08:37 Albuterol Nebulized 2.5 Mg/3 Ml INHALATION RT-Q6H PRN Shortness Of Breath Apixaban 5 mg 06/28/22 10:00 06/28/22 10:47 Apixaban 5 Mg Tab PO 5 mg BID@1000,1730 [facility] Administration Protocol Aspirin 81 mg 06/29/22 09:00 Aspirin 81 Mg PO DAILY [facility] Bumetanide 1 mg 06/28/22 09:00 06/28/22 10:48 Bumetanide 1 Mg Tab PO 1 mg DAILY ASHUTOSH Administration Calcium Carbonate 1 each 06/28/22 10:00 06/28/22 10:47 Calcium Carb-Vit D 500 Mg-5 Mcg Tab PO 1 each BID@1000,1730 ASHUTOSH Administration Digoxin 125 mcg 06/28/22 10:00 06/28/22 10:48 Digoxin 125 Mcg Tab PO 125 mcg Q2D@1000 ASHUTOSH Administration Gabapentin 400 mg 06/28/22 10:00 06/28/22 10:47 Gabapentin 400 Mg Cap PO 400 mg Q6H ASHUTOSH Administration Insulin Aspart 8 unit 06/28/22 17:30 Insulin Aspart (Novolog) 100 Unit/Ml Vial SQ AC-SUPPER [facility] Insulin Aspart 4 unit 06/28/22 12:30 Insulin Aspart (Novolog) 100 Unit/Ml Vial SQ AC-LUNCH [facility] Insulin Detemir 14 unit 06/28/22 21:00 Insulin Detemir (Levemir) 100 Unit/Ml Syr SQ HS [facility] Insulin Detemir 25 unit 06/28/22 09:00 Insulin Detemir (Levemir) 100 Unit/Ml Syr SQ DAILY@0700 [facility] Latanoprost 1 drops 06/28/22 21:00 Latanoprost 0.005% Ophth Drops 2.5 Ml Btl BOTH EYES HS [facility] Levothyroxine Sodium 137 mcg 06/28/22 21:00 Levothyroxine 137 Mcg Tab PO HS [facility] Loratadine 10 mg 06/28/22 09:00 06/28/22 10:48 Loratadine 10 Mg Tab PO 10 mg DAILY [facility] Administration Magnesium Oxide 400 mg 06/28/22 09:00 Magnesium Oxide 400 Mg Tab PO DAILY [facility] Metformin HCl 500 mg 06/28/22 17:30 Metformin 500 Mg Tab PO DAILY@1730 [facility] Methocarbamol 500 mg 06/28/22 21:00 Methocarbamol 500 Mg Tab PO HS [facility] Multivitamins 1 each 06/28/22 09:00 Multivitamins, Thera 1 Each Tab PO DAILY [facility] Nitroglycerin 0.4 mg 06/28/22 02:38 Nitroglycerin Sl Tabs 0.4 Mg Tab SUBLINGUAL Q5M PRN Chest Pain Non-Formulary Medication 40 mg 07/01/22 09:00 Adalimumab [Humira(Cf) Pen] SQ FR [facility] Oxybutynin Chloride 10 mg 06/28/22 09:00 06/28/22 10:48 Oxybutynin Xl 5 Mg Tab.Er.24 PO 10 mg DAILY [facility] Administration Silver Sulfadiazine 1 applic 06/28/22 08:37 Silver Sulfadiazine 1% Cream 25 Gm Tube TOPICAL BID PRN Skin Irritation Tamsulosin HCl 0.4 mg 06/28/22 09:00 06/28/22 10:48 Tamsulosin 0.4 Mg Cap.Er.24h PO 0.4 mg DAILY [facility] Administration Verapamil HCl 180 mg 06/28/22 09:00 06/28/22 10:48 Verapamil Sr 180 Mg Tablet.Er PO 180 mg DAILY [facility] Administration Intake and Output 06/27/22 06/28/22 06/28/22 22:59 06:59 14:59 Output Total 450 Balance -450 Output: Urine 450 Other: Voiding Method External Catheter Weight 127.006 kg 127.006 kg 127.006 kg Patient Weight 06/29/22 06:59 Weight 127.006 kg 06/27/22 20:38 06/27/22 20:38
[2022-06-28] MEDS ORDERED: INSULIN ASPART (NovoLOG) 100 UNIT/ML VIAL SQ SCH ×2 (12:30→17:30)
--- NOTE | 2022-06-28 13:57 | P.DS ---
Providers Date of admission: 06/28/22 02:39 Attending physician: Nicholas Hart Consults: 06/28/22 02:38 Consult Physician Urgent Consulting Provider: Vincent Ellis Consult Reason/Comments: chest pain Do you want consulting provider notified?: Yes Primary care physician: Nicholas Hart Hospital Course: This is discharge summary an 81-year-old white female with known history of COPD atrial fibrillation DDD of the lumbar spine came in with recurrent chest pain. Enzymatic elevation was slightly elevated and troponin. However cardiology did do a significant workup and evaluation and cleared the patient from a cardiac perspective. Tolerating diet appropriately. Poor ambulation secondary to DDD and significant size challenges. We will DC with home health and follow-up in 2-3 days. Patient Condition at Discharge: Fair Plan - Discharge Summary Discharge Rx Participant: No New Discharge Prescriptions: Continue RX: Latanoprost [Xalatan 0.005%] 1 drop BOTH EYES HS RX: Magnesium Oxide 400 mg PO DAILY RX: Calcium Citrate/Vitamin D3 [Citracal + D Maximum Caplet] 1 tab PO BID@1000,1730 RX: Adalimumab [Humira(Cf) Pen] 40 mg SQ FR RX: INSULIN LISPRO (humaLOG) [humaLOG] 8 units SQ AC-SUPPER RX: INSULIN LISPRO (HumaLOG) [humaLOG] 4 units SQ AC-LUNCH RX: metFORMIN HCL [Glucophage] 500 mg PO DAILY@1730 RX: HYDROcodone/APAP 7.5-325MG [[place] 7.5-325] 1 tab PO Q6H RX: Insulin Glargine [Lantus Vial] 25 unit SQ DAILY@0700 RX: Loratadine [Claritin] 10 mg PO DAILY #30 tab RX: Tamsulosin [Flomax] 0.4 mg PO DAILY RX: SILVER sulfADIAZINE Cream [Silvadene 1% Cream] 1 applic TOPICAL BID PRN PRN Reason: Skin Irritation RX: Mupirocin 2% Oint [Bactroban 2% Oint] 1 applic TOPICAL BID PRN PRN Reason: Skin Irritation RX: Albuterol Nebulized [Ventolin Nebulized] 2.5 mg INHALATION RT-Q6H PRN PRN Reason: Shortness Of Breath RX: predniSONE 5 mg PO DAILY RX: methocarbamoL [Methocarbamol] 500 mg PO HS RX: Nitroglycerin Sl Tabs [Nitrostat] 0.4 mg SL Q5M PRN PRN Reason: Chest Pain RX: Levothyroxine Sodium [Synthroid] 137 mcg PO HS RX: Digoxin [Lanoxin] 125 mcg PO Q2D@1000 RX: INSULIN LISPRO (HumaLOG) [humaLOG] See Protocol SQ AC-TID RX: Tolterodine Tartrate [Tolterodine Tartrate ER] 4 mg PO DAILY RX: Multivit-Min/FA/Lycopen/Lutein [Centrum Silver Tablet] 1 tab PO DAILY RX: Gabapentin [Neurontin] 400 mg PO Q6H RX: Apixaban [Eliquis] 5 mg PO BID@1000,1730 RX: Bumetanide [BUMEX] 1 mg PO DAILY #30 tab RX: Verapamil Sr [Isoptin Sr] 180 mg PO DAILY #30 tab RX: Insulin Glargine [Lantus Vial] 14 unit SQ HS RX: Acetaminophen Tab [Tylenol] 650 mg PO Q6HR PRN tab PRN Reason: Mild Pain Or Fever > 100.5 Discharge Medication List RX: Latanoprost [Xalatan 0.005%] 1 drop BOTH EYES HS 08/11/17 [History] RX: predniSONE 5 mg PO DAILY 07/23/21 [History] RX: Magnesium Oxide 400 mg PO DAILY 08/30/21 [History] RX: methocarbamoL [Methocarbamol] 500 mg PO HS 08/30/21 [History] RX: Calcium Citrate/Vitamin D3 [Citracal + D Maximum Caplet] 1 tab PO BID@1000,1730 11/16/21 [History] RX: Digoxin [Lanoxin] 125 mcg PO Q2D@1000 11/16/21 [History] RX: Levothyroxine Sodium [Synthroid] 137 mcg PO HS 11/16/21 [History] RX: Nitroglycerin Sl Tabs [Nitrostat] 0.4 mg SL Q5M PRN 11/16/21 [History] RX: Adalimumab [Humira(Cf) Pen] 40 mg SQ FR 01/09/22 [History] RX: Apixaban [Eliquis] 5 mg PO BID@1000,1730 05/02/22 [History] RX: Gabapentin [Neurontin] 400 mg PO Q6H 05/02/22 [History] RX: HYDROcodone/APAP 7.5-325MG [[place] 7.5-325] 1 tab PO Q6H 05/02/22 [History] RX: INSULIN LISPRO (HumaLOG) [humaLOG] 4 units SQ AC-LUNCH 05/02/22 [History] RX: INSULIN LISPRO (HumaLOG) [humaLOG] See Protocol SQ AC-TID 05/02/22 [History] RX: INSULIN LISPRO (humaLOG) [humaLOG] 8 units SQ AC-SUPPER 05/02/22 [History] RX: Multivit-Min/FA/Lycopen/Lutein [Centrum Silver Tablet] 1 tab PO DAILY 05/02/22 [History] RX: Tolterodine Tartrate [Tolterodine Tartrate ER] 4 mg PO DAILY 05/02/22 [History] RX: metFORMIN HCL [Glucophage] 500 mg PO DAILY@1730 05/02/22 [History] RX: Bumetanide [BUMEX] 1 mg PO DAILY #30 tab 05/03/22 [Rx] RX: Verapamil Sr [Isoptin Sr] 180 mg PO DAILY #30 tab 05/03/22 [Rx] RX: Insulin Glargine [Lantus Vial] 14 unit SQ HS 05/17/22 [History] RX: Insulin Glargine [Lantus Vial] 25 unit SQ DAILY@0700 05/17/22 [History] RX: Acetaminophen Tab [Tylenol] 650 mg PO Q6HR PRN tab 05/20/22 [Rx] RX: Loratadine [Claritin] 10 mg PO DAILY #30 tab 05/20/22 [Rx] RX: Albuterol Nebulized [Ventolin Nebulized] 2.5 mg INHALATION RT-Q6H PRN 06/28/22 [History] RX: Mupirocin 2% Oint [Bactroban 2% Oint] 1 applic TOPICAL BID PRN 06/28/22 [History] RX: SILVER sulfADIAZINE Cream [Silvadene 1% Cream] 1 applic TOPICAL BID PRN 06/28/22 [History] RX: Tamsulosin [Flomax] 0.4 mg PO DAILY 06/28/22 [History] Follow up Appointment(s)/Referral(s): Nicholas Hart MD [Primary Care Provider] - 1-2 days Discharge Disposition: HOME WITH HOME HEALTH SERVICES
[2022-06-28] MEDS ORDERED: metFORMIN 500 MG TAB PO SCH (17:30)
[2022-06-28] MEDS ORDERED: methocarbamoL 500 MG TAB PO SCH (21:00)
[2022-06-28] MEDS ORDERED: LEVOTHYROXINE 137 MCG TAB PO SCH (21:00)
[2022-06-28] MEDS ORDERED: LATANOPROST 0.005% OPHTH DROPS 2.5 ML BTL BOTH EYES SCH (21:00)
[2022-06-29] MEDS ORDERED: ASPIRIN 81 MG PO SCH (09:00)
[2022-06-29] MEDS ORDERED: ASPIRIN 325 MG TAB PO SCH (09:00)
[2022-07-01] MEDS ORDERED: NON FORMULARY DRUG (Adalimumab [Humira(Cf) Pen] 40 MG/0.4 ML Pen.Ij.Kit) SQ SCH (09:00)
== END 2022-06-28 18:12 | disposition home health service (06) ==
LOC: EC 20:14 → 3SCARD 06-28 02:39
PROVIDERS: ADMIT Family Medicine; ATTEND Family Medicine
DX: R07.89 Other chest pain (principal); R77.8 Other specified abnormalities of plasma proteins; I25.2 Old myocardial infarction; E11.51 Type 2 diabetes mellitus with diabetic peripheral angiopathy without gangrene; I25.10 Atherosclerotic heart disease of native coronary artery without angina pectoris; E78.5 Hyperlipidemia, unspecified; I11.0 Hypertensive heart disease with heart failure; I50.9 Heart failure, unspecified; M06.9 Rheumatoid arthritis, unspecified; E03.9 Hypothyroidism, unspecified; I48.21 Permanent atrial fibrillation; J44.9 Chronic obstructive pulmonary disease, unspecified; E66.01 Morbid (severe) obesity due to excess calories; Z87.891 Personal history of nicotine dependence; Z85.820 Personal history of malignant melanoma of skin; Z79.52 Long term (current) use of systemic steroids; Z79.899 Other long term (current) drug therapy; Z79.890 Hormone replacement therapy; Z79.01 Long term (current) use of anticoagulants; Z79.4 Long term (current) use of insulin; Z79.84 Long term (current) use of oral hypoglycemic drugs; Z88.1 Allergy status to other antibiotic agents; Z88.2 Allergy status to sulfonamides
CPT/HCPCS: 96372; 96374; 99285; 36415; 93005; 80053; 83735; 84484 ×2; 85025; 85610; 85730; 71046; G0378; J2270

== ENCOUNTER 2022-06-29 04:22 | Emergency (ER) | payer MEDICARE ==
[2022-06-29 04:36] VITALS: RESP 16; TEMP 98.1
--- NOTE | 2022-06-29 05:03 | ED ---
General Adult HPI - General Source: EMS Mode of arrival: EMS Limitations: no limitations <Urban Staley - Last Filed: 06/29/22 06:48> <Tray Felipe - Last Filed: 06/29/22 07:51> - General Chief complaint: Fall Stated complaint: Fall Time Seen by Provider: 06/29/22 04:27 - History of Present Illness Initial comments: Dictation was produced using [employer] dictation software. please excuse any grammatical, word or spelling errors. Chief Complaint: 81-year-old female presents to emergency department after fall History of Present Illness: Patient is a-year-old female she is well-known to emergency department for multiple visitations for a myriad of complaints. Patient was seen by me the last 2 visits. Patient states that she was trying to get out of bed to go to the bathroom. She saw her legs off the bed and tried to a sitting position when she slipped off the bed and fell to the ground. States that she hurt her left abdomen. Denies any loss of consciousness. She does complain of some neck pain. Patient has some chronic pain. She does significant coagulation medications to treat A. fib. The ROS documented in this emergency department record has been reviewed and confirmed by me. Those systems with pertinent positive or negative responses have been documented in the HPI. All other systems are other negative and/or noncontributory. (Urban Staley) - Related Data Home Medications Medication Instructions Recorded Confirmed Latanoprost [Xalatan 0.005%] 1 drop BOTH EYES HS 08/11/17 06/28/22 predniSONE 5 mg PO DAILY 07/23/21 06/28/22 Magnesium Oxide 400 mg PO DAILY 08/30/21 06/28/22 methocarbamoL [Methocarbamol] 500 mg PO HS 08/30/21 06/28/22 Calcium Citrate/Vitamin D3 1 tab PO BID@1000,1730 11/16/21 06/28/22 [Citracal + D Maximum Caplet] Digoxin [Lanoxin] 125 mcg PO Q2D@1000 11/16/21 06/28/22 Levothyroxine Sodium [Synthroid] 137 mcg PO HS 11/16/21 06/28/22 Nitroglycerin Sl Tabs [Nitrostat] 0.4 mg SL Q5M PRN 11/16/21 06/28/22 Adalimumab [Humira(Cf) Pen] 40 mg SQ FR 01/09/22 06/28/22 Apixaban [Eliquis] 5 mg PO BID@1000,1730 05/02/22 06/28/22 Gabapentin [Neurontin] 400 mg PO Q6H 05/02/22 06/28/22 HYDROcodone/APAP 7.5-325MG [Peyton 1 tab PO Q6H 05/02/22 06/28/22 7.5-325] INSULIN LISPRO (HumaLOG) [humaLOG] 4 units SQ AC-LUNCH 05/02/22 06/28/22 INSULIN LISPRO (HumaLOG) [humaLOG] See Protocol SQ AC-TID 05/02/22 06/28/22 INSULIN LISPRO (humaLOG) [humaLOG] 8 units SQ AC-SUPPER 05/02/22 06/28/22 Multivit-Min/FA/Lycopen/Lutein 1 tab PO DAILY 05/02/22 06/28/22 [Centrum Silver Tablet] Tolterodine Tartrate [Tolterodine 4 mg PO DAILY 05/02/22 06/28/22 Tartrate ER] metFORMIN HCL [Glucophage] 500 mg PO DAILY@1730 05/02/22 06/28/22 Insulin Glargine [Lantus Vial] 14 unit SQ HS 05/17/22 06/28/22 Insulin Glargine [Lantus Vial] 25 unit SQ DAILY@0700 05/17/22 06/28/22 Albuterol Nebulized [Ventolin 2.5 mg INHALATION RT-Q6H PRN 06/28/22 06/28/22 Nebulized] Mupirocin 2% Oint [Bactroban 2% 1 applic TOPICAL BID PRN 06/28/22 06/28/22 Oint] SILVER sulfADIAZINE Cream 1 applic TOPICAL BID PRN 06/28/22 06/28/22 [Silvadene 1% Cream] Tamsulosin [Flomax] 0.4 mg PO DAILY 06/28/22 06/28/22 Previous Rx's Medication Instructions Recorded Bumetanide [BUMEX] 1 mg PO DAILY #30 tab 05/03/22 Verapamil Sr [Isoptin Sr] 180 mg PO DAILY #30 tab 03/07/23 Acetaminophen Tab [Tylenol] 650 mg PO Q6HR PRN tab 05/20/22 Loratadine [Claritin] 10 mg PO DAILY #30 tab 05/20/22 Allergies Allergy/AdvReac Type Severity Reaction Status Date / Time adhesive Allergy Rash/Hives Verified 06/29/22 04:36 cephalexin [From Keflex] Allergy Rash/Hives Verified 06/29/22 04:36 grass pollen Allergy Unknown Verified 06/29/22 04:36 mold Allergy Unknown Verified 06/29/22 04:36 Sulfa (Sulfonamide Allergy Rash/Hives Verified 06/29/22 04:36 Antibiotics) newspaper ink Allergy Mild Unknown Uncoded 06/29/22 04:36 Review of Systems ROS Other: All systems not noted in ROS Statement are negative. <Urban Staley - Last Filed: 06/29/22 06:48> ROS Other: All systems not noted in ROS Statement are negative. <Tray Felipe - Last Filed: 06/29/22 07:51> ROS Statement: Those systems with pertinent positive or pertinent negative responses have been documented in the HPI. Past Medical History Past Medical History: Atrial Fibrillation, Coronary Artery Disease (CAD), Cancer, Diabetes Mellitus, Hyperlipidemia, Hypertension, Musculoskeletal Disorder, Neurologic Disorder, Osteoarthritis (OA), Pneumonia, Renal Disease, Rheumatoid Arthritis (RA), Skin Disorder, Thyroid Disorder Additional Past Medical History / Comment(s): Morbid obesity, chronic atrial fibrillation, diabetes mellitus type 2, hypertension, hyperlipidemia, spinal stenosis, osteoarthritis, hypothyroidism, hypertension, history of skin melanoma, history of bursitis with MRSA post I&D, rheumatoid arthritis, Sjo gren's disease, 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 without any indication of ILD related to RA, Fall on July 22 transfer to [facility] for MRI, then Fall on 11/16/21 History of Any Multi-Drug Resistant Organisms: MRSA Date of last positivie culture/infection: 01/19/22 MDRO Source:: Wound Past Surgical History: Back Surgery, Breast Surgery, Cholecystectomy, Heart Catheterization, Joint Replacement, Orthopedic Surgery Additional Past Surgical History / Comment(s): Bilateral cataracts with lens implants, arthroscopies to lt wrist, gualberto knees, gualberto ankles, gualberto hips, lt hip replacment and redone, L/R shoulder sxs, rt breast bx-benign, egd/colonoscopy, skin cancer removal L arm, Lumbar fixnation possible broken Past Anesthesia/Blood Transfusion Reactions: No Reported Reaction Additional Past Anesthesia/Blood Transfusion Reaction / Comment(s): Pt has been told not to have anesthesia metabolized by the kidneys and has neurologic Sjogren's with post anesthesia paralysis. Past Psychological History: No Psychological Hx Reported Smoking Status: Former smoker - Past Family History Mother Family Medical History: CVA/TIA Additional Family Medical History / Comment(s): RUPTURED BOWEL Father Family Medical History: Cancer, Pneumonia Additional Family Medical History / Comment(s): ASPIRATIVE PNA Sister(s) Additional Family Medical History / Comment(s): at age 34 with lupus <Urban Staley - Last Filed: 06/29/22 06:48> General Exam Limitations: no limitations <Urban Staley - Last Filed: 06/29/22 06:48> - General Exam Comments Initial Comments: PHYSICAL EXAM: General Impression: Alert and oriented x3, not in acute distress HEENT: Normocephalic atraumatic, extra-ocular movements intact, pupils equal and reactive to light bilaterally, mucous membranes moist. Cardiovascular: Heart regular rate and rhythm Chest: Able to complete full sentences, no retractions, no tachypnea Abdomen: abdomen soft, mild tenderness to the left abdomen, non-distended, no organomegaly Musculoskeletal: Pulses present and equal in all extremities, no peripheral edema Motor: no focal deficits noted Neurological: CN II-XII grossly intact, no focal motor or sensory deficits noted Skin: Intact with no visualized rashes Psych: Normal affect and mood (Urban Staley) Course Vital Signs 06/29/22 06/29/22 06/29/22 04:27 06:20 07:22 Temperature 98.1 F Pulse Rate 95 73 98 Respiratory 16 16 16 Rate Blood Pressure 120/79 151/83 141/80 O2 Sat by Pulse 94 L 95 95 Oximetry Medical Decision Making - Lab Data Result diagrams: 06/29/22 05:20 06/29/22 05:20 <Urban Staley - Last Filed: 06/29/22 06:48> - Lab Data Result diagrams: 06/29/22 05:20 06/29/22 05:20 <Tray Felipe - Last Filed: 06/29/22 07:51> - Medical Decision Making Was pt. sent in by a medical professional or institution (YEIMI Rivera, INTERLOCKING AND SIGNAL MECHANIC, urgent care, hospital, or fpc...) When possible be specific @ -No Did you speak to anyone other than the patient for history (EMS, parent, family, police, friend...)? What history was obtained from this source @ -EMS Did you review nursing and triage notes (agree or disagree)? Why? @ -I reviewed and agree with nursing and triage notes Were old charts reviewed (outside hosp., previous admission, EMS record, old EKG, old radiological studies, urgent care reports/EKG's, fpc records)? Report findings @ -No old charts were reviewed Differential Diagnosis (chest pain, altered mental status, abdominal pain women, abdominal pain men, vaginal bleeding, musculoskeletal, weakness, fever, dyspnea, syncope, headache, dizziness, GI bleed, back pain, seizure, CVA, palpatations, mental health)? @ -Rib fracture, splenic laceration, follow-up viscous organ injury, solid organ injury, abdominal contusion EKG interpreted by me (3pts min.). @ -See above X-rays interpreted by me (1pt min.). @ -pending CT interpreted by me (1pt min.). @ -pending U/S interpreted by me (1pt. min.). @ -None done What testing was considered but not performed or refused? (CT, X-rays, U/S, labs)? Why? @ -None What meds were considered but not given or refused? Why? @ -None Did you discuss the management of the patient with other professionals (professionals i.e. YEIMI Rivera, INTERLOCKING AND SIGNAL MECHANIC, lab, RT, psych nurse, social service technician, hyperion developer, teacher, security public safety officer, pillowcase cleaner)? Give summary @ -No Was smoking cessation discussed for >3mins.? @ -No Was critical care preformed (if so, how long)? @ -No Were there social determinants of health that impacted care today? How? (Homelessness, low income, unemployed, alcoholism, drug addiction, transportation, low edu. Level, literacy, decrease access to med. care, nursing home, rehab)? @ -No Was there de-escalation of care discussed even if they declined (Discuss DNR or withdrawal of care, Hospice)? DNR status @ -No What co-morbidities impacted this encounter? (DM, HTN, Smoking, COPD, CAD, Cancer, CVA, ARF, Chemo, Hep., AIDS, mental health diagnosis, sleep apnea, morbid obesity)? @ -None Was patient admitted / discharged? Hospital course, mention meds given and route, prescriptions, significant lab abnormalities, going to OR and other pertinent info. @ -81 y Old female presents emergency department after she fell out of bed. Undiagnosed new problem with uncertain prognosis? @ -No Drug Therapy requiring intensive monitoring for toxicity (Heparin, Nitro, Insulin, Cardizem)? @ -No Were any procedures done? @ -No Diagnosis/symptom? Acute, or Chronic, or Acute on Chronic? Uncomplicated (without systemic symptoms) or Complicated (systemic symptoms)? @ -1. Fall Side effects of treatment? @ -No Exacerbation, Progression, or Severe Exacerbation? @ -No Poses a threat to life or bodily function? How? (Chest pain, [place], [place], pneumonia, PE, COPD, DKA, ARF, appy, cholecystitis, CVA, Diverticulitis, Homicidal, Suicidal, threat to staff... and all critical care pts) @ -yes signed out to Dr. Felipe at 7am (Urban Staley) Chest x-ray interpreted by myself does show some increase in interstitial markings and cardiomegaly. Pelvis x-ray interpreted by myself shows no acute fracture. CT report reviewed. Patient reevaluated and resting comfortably in bed. Patient denies any dyspnea. Patient states she has had generalized swelling occurring for months. Patient is receptive to a dose of Lasix and agreeable to close follow-up with her doctor. Patient would like to be discharged home. Abdomen is soft and nontender. Patient is updated on results and need for follow-up. (Tray Felipe) - Lab Data Lab Results 06/29/22 06/29/22 Range/Units 05:20 05:20 WBC 6.4 (3.8-10.6) k/uL RBC 4.23 (3.80-5.40) m/uL Hgb 10.8 L (11.4-16.0) gm/dL Hct 34.8 (34.0-46.0) % MCV 82.3 (80.0-100.0) fL MCH 25.6 (25.0-35.0) pg MCHC 31.1 (31.0-37.0) g/dL RDW 18.8 H (11.5-15.5) % Plt Count 145 L (150-450) k/uL MPV 7.0 Neutrophils % 60 % Lymphocytes % 28 % Monocytes % 6 % Eosinophils % 3 % Basophils % 0 % Neutrophils # 3.8 (1.3-7.7) k/uL Lymphocytes # 1.8 (1.0-4.8) k/uL Monocytes # 0.4 (0-1.0) k/uL Eosinophils # 0.2 (0-0.7) k/uL Basophils # 0.0 (0-0.2) k/uL Hypochromasia Moderate Anisocytosis Slight Microcytosis Slight Sodium 137 (137-145) mmol/L Potassium 3.5 (3.5-5.1) mmol/L Chloride 95 L (98-107) mmol/L Carbon Dioxide 33 H (22-30) mmol/L Anion Gap 9 mmol/L BUN 21 H (7-17) mg/dL Creatinine 0.68 (0.52-1.04) mg/dL Est GFR (CKD-EPI)AfAm >90 (>60 ml/min/1.73 sqM) Est GFR (CKD-EPI)NonAf 83 (>60 ml/min/1.73 sqM) Glucose 275 H (74-99) mg/dL Calcium 9.2 (8.4-10.2) mg/dL Total Bilirubin 0.7 (0.2-1.3) mg/dL AST 32 (14-36) U/L ALT 22 (4-34) U/L Alkaline Phosphatase 81 (38-126) U/L Total Protein 7.3 (6.3-8.2) g/dL Albumin 3.6 (3.5-5.0) g/dL Lipase 35 (23-300) U/L Disposition <Urban Staley - Last Filed: 06/29/22 06:48> Is patient prescribed a controlled substance at d/c from ED?: No Time of Disposition: 07:51 <Tray Felipe - Last Filed: 06/29/22 07:51> Clinical Impression: Fall Disposition: HOME SELF-CARE Condition: Stable Instructions (If sedation given, give patient instructions): Fall Prevention for Older Adults (ED) Additional Instructions: Please do follow-up to primary care physician in the next day or 2 for recheck. Return for increased pain, difficulty breathing, increased weakness, worsening or changing symptoms or any other concerns. Referrals: Nicholas Hart MD [Primary Care Provider] - 1-2 days
[2022-06-29 05:41] LABS: ALT 22 U/L (4-34); AST 32 U/L (14-36); African American GFR (CKD) >90 (>60 ml/min/1.73 sqM); Albumin 3.6 g/dL (3.5-5.0); Alkaline Phosphatase 81 U/L (38-126); Anion Gap 9 mmol/L; Blood Urea Nitrogen 21 mg/dL (7-17); Calcium 9.2 mg/dL (8.4-10.2); Carbon Dioxide 33 mmol/L (22-30); Chloride 95 mmol/L (98-107); Glucose 275 mg/dL (74-99); Lipase 35 U/L (23-300); Non-African American GFR(CKD) 83 (>60 ml/min/1.73 sqM); Potassium 3.5 mmol/L (3.5-5.1); Sodium 137 mmol/L (137-145); Total Bilirubin 0.7 mg/dL (0.2-1.3); Total Protein 7.3 g/dL (6.3-8.2)
[2022-06-29 05:45] LABS: Anisocytosis Slight; Basophils % (A) 0 %; Eosinophils # (A) 0.2 k/uL (0-0.7); Eosinophils % (A) 3 %; HCT 34.8 % (34.0-46.0); HGB 10.8 gm/dL (11.4-16.0); Hypochromasia Moderate; Lymphocytes # (A) 1.8 k/uL (1.0-4.8); Lymphocytes % (A) 28 %; MCH 25.6 pg (25.0-35.0); MCHC 31.1 g/dL (31.0-37.0); MCV 82.3 fL (80.0-100.0); Microcytosis Slight; Monocytes # (A) 0.4 k/uL (0-1.0); Monocytes % (A) 6 %; Neutrophils # (A) 3.8 k/uL (1.3-7.7); Neutrophils % (A) 60 %; Platelet Count 145 k/uL (150-450); RBC 4.23 m/uL (3.80-5.40); RDW 18.8 % (11.5-15.5); WBC 6.4 k/uL (3.8-10.6)
--- NOTE | 2022-06-29 07:15 | XR ---
EXAMINATION TYPE: XR chest 1V DATE OF EXAM: 06/29/2022 COMPARISON: 06/27/2022 HISTORY: 81-year-old female fall from seated position TECHNIQUE: Single frontal view of the chest is obtained. FINDINGS: Heart is moderately enlarged with perihilar and interstitial opacity. No mary consolidati on or pleural effusion. IMPRESSION: Moderate cardiomegaly with vascular and interstitial prominence. Correlate for CHF with pulmonary vascular congestion.
--- NOTE | 2022-06-29 07:17 | XR ---
EXAMINATION TYPE: XR pelvis AP view DATE OF EXAM: 06/29/2022 Comparison: None Clinical History: 81-year-old female with fall and pain, fall Findings: Posterior lumbar fusion hardware laminectomy. Diffuse osteopenia. Partially visualized left total hip arthroplasty shows no periprosthetic fracture. Severe degenerative change of the right hip. No displ aced fracture seen here. Impression: Osteopenia. Partially visualized left total hip arthroplasty appears uncomplicated. Severe right hip OA. No displaced fracture seen.
[2022-06-29 07:23] VITALS: BP 141/80; PULSE 98
--- NOTE | 2022-06-29 07:23 | CT ---
EXAMINATION TYPE: CT brain simon wo con DATE OF EXAM: 06/29/2022 COMPARISON: 08/30/2021 HISTORY: 81-year-old female with pain after Fall CT DLP: 1591.2 mGycm Automated exposure control for dose reduction was used. Technique: Examination of the head was done in axial plane without intravenous contrast. Coronal and sagittal reconstructions performed. CT of the cervical spine was obtained in axial plane without intravenous injection of contrast mater ial. Coronal and sagittal reformatted images were obtained from the axial views for evaluation of f ractures, spinal alignment and canal. FINDINGS: Head: There is no evidence of acute intracranial hemorrhage, acute ischemic changes, mass, mass-effect, or extra-axial fluid collection. There is no effacement of cerebral sulci or basal subarachnoid cister ns. There is no hydrocephalus. There is no midline shift. [place]-white matter distinction is preserv ed. Mild generalized supratentorial volume loss. Areas of old encephalomalacia right parieto-occipital ju nction, superior right frontoparietal junction, and underlying mild patchy white matter hypodensities compatible chronic small vessel ischemic disease. No calvarial fracture. Paranasal sinuses show trac e mucosal thickening left maxillary sinus. Mastoid air cells are well pneumatized. Cervical spine: No craniocervical junction abnormality, predental space widening, or prevertebral soft tissue swellin g. Degenerative change at the C1 dens articulation. Similar degenerative grade 1 anterolisthesis above the fusion at C3-C4. Patient status post C4-C6 ACD F. Similar grade 2 anterolisthesis C7-T1. No acute fracture seen of the cervical spine. Moderate to advanced multilevel spondylotic change. Pos sible moderate spinal canal stenosis above the fusion at C3-C4. Moderate to severe left neuroforaminal stenosis at C3-C4 and moderate on the right at C4-C5. Sagittal and coronal reformatted images confirm above findings. COMBINED IMPRESSION: 1. No acute intracranial abnormality seen. Moderate burden of chronic small vessel ischemic disease. 2. No acute fracture of the cervical spine. Moderate to advanced multilevel spondylotic changes with postsurgical change of C4-C6 ACDF. Similar grade 2 anterolisthesis C7-T1 and possible moderate spinal canal stenosis at C3-C4.
--- NOTE | 2022-06-29 07:40 | CT ---
EXAMINATION TYPE: CT abdomen pelvis wo con DATE OF EXAM: 06/29/2022 COMPARISON: 12/15/2021 HISTORY: 81-year-old female pain after Fall CT DLP: 1142.1 mGycm. Automated exposure control for dose reduction was used. TECHNIQUE: Contiguous axial scanning of the abdomen and pelvis without IV contrast. Coronal and sagit eugenia reconstructions performed. FINDINGS: The heart is mildly enlarged. Mitral annular calcifications and coronary artery calcifications are pr esent. Emphysematous changes. The atelectasis of lung bases. No pleural effusion. Noncontrast appearance of the liver, adrenal glands, right kidney, spleen, and atrophic pancreas show no gross abnormality. Suspected 2.5 cm parapelvic cyst left kidney. At least moderate atherosclerotic narrowing at the origin of the celiac axis and possible severe at t he origin of the SMA. There is mild perihepatic free fluid. Mild generalized anasarca changes. Moderate atherosclerotic calcifications infrarenal abdominal aorta and iliac arteries. Fusiform ectas ia infrarenal abdominal aorta to 2.6 cm in possible severe atherosclerotic narrowing proximal right c ommon iliac artery. No dilated small bowel, free fluid, or free air. No mesenteric or retroperitoneal lymphadenopathy. Mild overall stool burden. Mildly redundant sigmoid colon. Bladder partially distended. Uterus anteverted. Both ovaries are visualized. No abnormal fluid collec tion pelvis or pelvic lymphadenopathy. Severe degenerative change right hip. Partially visualized left hip total arthroplasty. Postsurgical change L2-S1 posterior lumbar fusion with laminectomies. Marked osteopenia limiting eval uation. No evidence of vertebral compression collapse. IMPRESSION: 1. There is generalized anasarca change. The trace perihepatic ascites likely reflects fluid overloa d state/third spacing rather than a posttraumatic etiology. 2. Otherwise, no acute traumatic sequela identified in the abdomen or pelvis allowing for noncontra st CT. 3. Possible severe atherosclerotic narrowing at the origin of the SMA and proximal right common dorian c artery.
[2022-06-29] MEDS ORDERED: FUROSEMIDE 10 MG/ML 4 ML VIAL IV STA (07:51)
== END 2022-06-29 08:10 | disposition home or self-care (01) ==
LOC: EC 04:22
DX: Z04.3 Encounter for examination and observation following other accident (principal)
CPT/HCPCS: 36415; 93005; 80053; 83690; 85025; 72170; 71045; 72125; 70450; 74176; 99285; 96374; J1940

== ENCOUNTER 2022-09-01 19:31 | Inpatient (IN) | payer MEDICARE ==
--- NOTE | 2022-09-01 19:50 | ED ---
General Adult HPI - General Source: patient, family Mode of arrival: wheelchair Limitations: no limitations <Frank Estes - Last Filed: 09/01/22 19:51> <Carrie Cotto - Last Filed: 09/02/22 00:34> - General Chief complaint: Skin/Abscess/Foreign Body Stated complaint: Infection in Legs, Sent by PCP - History of Present Illness Initial comments: 81-year-old female sent in by her PCP due to infection on bottom of left foot. (Frank Estes) 82-year-old female presenting with chief complaint of wound to the bottom of the left foot. Patient has previously been treated with Keflex by her PCP. Patient has been sent PCP pictures of the wound today and he advised him to report to the ER for IV antibiotics. Patient is having no fever, chills, nausea, vomiting. (Carrie Cotto) - Related Data Home Medications Medication Instructions Recorded Confirmed Latanoprost [Xalatan 0.005%] 1 drop BOTH EYES HS 08/11/17 06/28/22 predniSONE 5 mg PO DAILY 07/23/21 06/28/22 Magnesium Oxide 400 mg PO DAILY 08/30/21 06/28/22 methocarbamoL [Methocarbamol] 500 mg PO HS 08/30/21 06/28/22 Calcium Citrate/Vitamin D3 1 tab PO BID@1000,1730 11/16/21 06/28/22 [Citracal + D Maximum Caplet] Digoxin [Lanoxin] 125 mcg PO Q2D@1000 11/16/21 06/28/22 Levothyroxine Sodium [Synthroid] 137 mcg PO HS 11/16/21 06/28/22 Nitroglycerin Sl Tabs [Nitrostat] 0.4 mg SL Q5M PRN 11/16/21 06/28/22 Adalimumab [Humira(Cf) Pen] 40 mg SQ FR 01/09/22 06/28/22 Apixaban [Eliquis] 5 mg PO BID@1000,1730 05/02/22 06/28/22 Gabapentin [Neurontin] 400 mg PO Q6H 05/02/22 06/28/22 HYDROcodone/APAP 7.5-325MG [[place] 1 tab PO Q6H 05/02/22 06/28/22 7.5-325] INSULIN LISPRO (HumaLOG) [humaLOG] 4 units SQ AC-LUNCH 05/02/22 06/28/22 INSULIN LISPRO (HumaLOG) [humaLOG] See Protocol SQ AC-TID 05/02/22 06/28/22 INSULIN LISPRO (humaLOG) [humaLOG] 8 units SQ AC-SUPPER 05/02/22 06/28/22 Multivit-Min/FA/Lycopen/Lutein 1 tab PO DAILY 05/02/22 06/28/22 [Centrum Silver Tablet] Tolterodine Tartrate [Tolterodine 4 mg PO DAILY 05/02/22 06/28/22 Tartrate ER] metFORMIN HCL [Glucophage] 500 mg PO DAILY@1730 05/02/22 06/28/22 Insulin Glargine [Lantus Vial] 14 unit SQ HS 05/17/22 06/28/22 Insulin Glargine [Lantus Vial] 25 unit SQ DAILY@0700 05/17/22 06/28/22 Albuterol Nebulized [Ventolin 2.5 mg INHALATION RT-Q6H PRN 06/28/22 06/28/22 Nebulized] Mupirocin 2% Oint [Bactroban 2% 1 applic TOPICAL BID PRN 06/28/22 06/28/22 Oint] SILVER sulfADIAZINE Cream 1 applic TOPICAL BID PRN 06/28/22 06/28/22 [Silvadene 1% Cream] Tamsulosin [Flomax] 0.4 mg PO DAILY 06/28/22 06/28/22 Previous Rx's Medication Instructions Recorded Bumetanide [BUMEX] 1 mg PO DAILY #30 tab 05/03/22 Verapamil Sr [Isoptin Sr] 180 mg PO DAILY #30 tab 05/03/22 Acetaminophen Tab [Tylenol] 650 mg PO Q6HR PRN tab 05/20/22 Loratadine [Claritin] 10 mg PO DAILY #30 tab 05/20/22 Allergies Allergy/AdvReac Type Severity Reaction Status Date / Time adhesive Allergy Rash/Hives Verified 09/01/22 19:39 cephalexin [From Keflex] Allergy Rash/Hives Verified 09/01/22 19:39 grass pollen Allergy Unknown Verified 09/01/22 19:39 mold Allergy Unknown Verified 09/01/22 19:39 Sulfa (Sulfonamide Allergy Rash/Hives Verified 09/01/22 19:39 Antibiotics) newspaper ink Allergy Mild Unknown Uncoded 09/01/22 19:39 Review of Systems ROS Other: All systems not noted in ROS Statement are negative. <Frank Estes - Last Filed: 09/01/22 19:51> ROS Other: All systems not noted in ROS Statement are negative. <Carrie Cotto - Last Filed: 09/02/22 00:34> ROS Statement: Those systems with pertinent positive or pertinent negative responses have been documented in the HPI. Past Medical History Past Medical History: Atrial Fibrillation, Coronary Artery Disease (CAD), Cancer, Diabetes Mellitus, Hyperlipidemia, Hypertension, Musculoskeletal Disorder, Neurologic Disorder, Osteoarthritis (OA), Pneumonia, Renal Disease, Rheumatoid Arthritis (RA), Skin Disorder, Thyroid Disorder Additional Past Medical History / Comment(s): Morbid obesity, chronic atrial fibrillation, diabetes mellitus type 2, hypertension, hyperlipidemia, spinal stenosis, osteoarthritis, hypothyroidism, hypertension, history of skin melanoma, history of bursitis with MRSA post I&D, rheumatoid arthritis, Sjogren's disease, 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 without any indication of ILD related to RA, Fall on July 22 transfer to [facility] for MRI, then Fall on 11/16/21 History of Any Multi-Drug Resistant Organisms: MRSA Date of last positivie culture/infection: 01/19/22 MDRO Source:: Wound Past Surgical History: Back Surgery, Breast Surgery, Cholecystectomy, Heart Catheterization, Joint Replacement, Orthopedic Surgery Additional Past Surgical History / Comment(s): Bilateral cataracts with lens implants, arthroscopies to lt wrist, gualberto knees, gualberto ankles, gualberto hips, lt hip replacment and redone, L/R shoulder sxs, rt breast bx-benign, egd/colonoscopy, skin cancer removal L arm, Lumbar fixnation possible broken Past Anesthesia/Blood Transfusion Reactions: No Reported Reaction Additional Past Anesthesia/Blood Transfusion Reaction / Comment(s): Pt has been told not to have anesthesia metabolized by the kidneys and 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 Past Psychological History: No Psychological Hx Reported Smoking Status: Former smoker Past Alcohol Use History: None Reported Past Drug Use History: None Reported - Past Family History Mother Family Medical History: CVA/TIA Additional Family Medical History / Comment(s): RUPTURED BOWEL Father Family Medical History: Cancer, Pneumonia Additional Family Medical History / Comment(s): ASPIRATIVE PNA Sister(s) Additional Family Medical History / Comment(s): at age 34 with lupus <Frank Estes - Last Filed: 09/01/22 19:51> General Exam Limitations: no limitations General appearance: alert, in no apparent distress Respiratory exam: Present: normal lung sounds bilaterally Cardiovascular Exam: Present: regular rate, irregular rhythm Neurological exam: Present: alert, oriented X3 <Frank Estes - Last Filed: 09/01/22 19:51> Limitations: no limitations General appearance: alert, in no apparent distress Head exam: Present: atraumatic, normocephalic, normal inspection Eye exam: Present: normal appearance Neck exam: Present: normal inspection, full ROM Respiratory exam: Present: normal lung sounds bilaterally. Absent: respiratory distress, wheezes, rales, rhonchi, stridor Cardiovascular Exam: Present: regular rate, normal rhythm, normal heart sounds. Absent: systolic murmur, diastolic murmur, rubs, gallop, clicks Neurological exam: Present: alert, oriented X3, CN II-XII intact Psychiatric exam: Present: normal affect, normal mood Skin exam: Present: other (Appropriate wound to the bottom of the left foot) <Carrie Cotto - Last Filed: 09/02/22 00:34> Course Vital Signs 09/01/22 09/01/22 19:37 23:31 Temperature 98.4 F Pulse Rate 79 75 Respiratory 18 20 Rate Blood Pressure 121/60 123/86 O2 Sat by Pulse 95 100 Oximetry Medical Decision Making - Lab Data Result diagrams: 09/01/22 21:34 09/01/22 21:34 <Carrie Cotto - Last Filed: 09/02/22 00:34> - Medical Decision Making Was pt. sent in by a medical professional or institution (, PA, [employer], urgent care, hospital, or fdc...) When possible be specific @ -sent by PCP Did you speak to anyone other than the patient for history (EMS, parent, family, police, friend...)? What history was obtained from this source @ -History supplemented by Did you review nursing and triage notes (agree or disagree)? Why? @ -I reviewed and agree with nursing and triage notes Were old charts reviewed (outside hosp., previous admission, EMS record, old EKG, old radiological studies, urgent care reports/EKG's, fdc records)? Report findings @ -No old charts were reviewed Differential Diagnosis (chest pain, altered mental status, abdominal pain women, abdominal pain men, vaginal bleeding, weakness, fever, dyspnea, syncope, headache, dizziness, GI bleed, back pain, seizure, CVA, palpatations, mental health, musculoskeletal)? @ -Differential includes cellulitis, abscess, osteomyelitis, this is not an all inclusive list EKG interpreted by me (3pts min.). @ -As above X-rays interpreted by me (1pt min.). @ -None done CT interpreted by me (1pt min.). @ -None done U/S interpreted by me (1pt. min.). @ -None done What testing was considered but not performed or refused? (CT, X-rays, U/S, labs)? Why? @ -None What meds were considered but not given or refused? Why? @ -None Did you discuss the management of the patient with other professionals (professionals i.e. , PA, [employer], lab, RT, psych nurse, social science manager, mold breaker, teacher, corporate trust officer, therapeutic case manager)? Give summary @ -Spoke with Dr. Hart, who advised that the patient be admitted started on IV antibiotics, infectious disease consulted, patient will require placement to subacute rehab Was smoking cessation discussed for >3mins.? @ -No Was critical care preformed (if so, how long)? @ -No Were there social determinants of health that impacted care today? How? (Homelessness, low income, unemployed, alcoholism, drug addiction, transportation, low edu. Level, literacy, decrease access to med. care, [facility], rehab)? @ -No Was there de-escalation of care discussed even if they declined (Discuss DNR or withdrawal of care, Hospice)? DNR status @ -No What co-morbidities impacted this encounter? (DM, HTN, Smoking, COPD, CAD, Cancer, CVA, ARF, Chemo, Hep., AIDS, mental health diagnosis, sleep apnea, morbid obesity)? @ -Diabetes, hypertension, hyperlipidemia Was patient admitted / discharged? Hospital course, mention meds given and route, prescriptions, significant lab abnormalities, going to OR and other pertinent info. @ -82-year-old female presenting with wound to the bottom of the left foot. Sent in by her PCP. I spoke to Dr. Hart who requested the patient be admitted started on IV antibiotics. IV vancomycin was started and infectious diseases consulted. Patient is agreeable with this plan. I discussed this case my attending Dr. Staley Undiagnosed new problem with uncertain prognosis? @ -No Drug Therapy requiring intensive monitoring for toxicity (Heparin, Nitro, Insulin, Cardizem)? @ -No Were any procedures done? @ -No Diagnosis/symptom? @ -Cellulitis Acute, or Chronic, or Acute on Chronic? @ -Acute Uncomplicated (without systemic symptoms) or Complicated (systemic symptoms)? @ -Complicated Side effects of treatment? @ -No Exacerbation, Progression, or Severe Exacerbation? @ -No Poses a threat to life or bodily function? How? (Chest pain, [place], [place], pneumonia, PE, COPD, DKA, ARF, appy, cholecystitis, CVA, Diverticulitis, Homicidal, Suicidal, threat to staff... and all critical care pts) @ -yes (Carrie Cotto) - Lab Data Lab Results 09/01/22 09/01/22 Range/Units 21:34 21:34 WBC 6.1 (3.8-10.6) k/uL RBC 4.13 (3.80-5.40) m/uL Hgb 10.4 L (11.4-16.0) gm/dL Hct 36.1 (34.0-46.0) % MCV 87.3 D (80.0-100.0) fL MCH 25.2 (25.0-35.0) pg MCHC 28.9 L (31.0-37.0) g/dL RDW 17.5 H (11.5-15.5) % Plt Count 168 (150-450) k/uL MPV 8.4 Neutrophils % 65 % Lymphocytes % 23 % Monocytes % 7 % Eosinophils % 4 % Basophils % 1 % Neutrophils # 3.9 (1.3-7.7) k/uL Lymphocytes # 1.4 (1.0-4.8) k/uL Monocytes # 0.4 (0-1.0) k/uL Eosinophils # 0.2 (0-0.7) k/uL Basophils # 0.0 (0-0.2) k/uL Hypochromasia Marked Anisocytosis Slight Sodium 138 (137-145) mmol/L Potassium 4.5 (3.5-5.1) mmol/L Chloride 100 (98-107) mmol/L Carbon Dioxide 31 H (22-30) mmol/L Anion Gap 7 mmol/L BUN 23 H (7-17) mg/dL Creatinine 0.94 (0.52-1.04) mg/dL Est GFR (CKD-EPI)AfAm 66 (>60 ml/min/1.73 sqM) Est GFR (CKD-EPI)NonAf 58 (>60 ml/min/1.73 sqM) Glucose 249 H (74-99) mg/dL Calcium 8.9 (8.4-10.2) mg/dL Total Bilirubin 0.7 (0.2-1.3) mg/dL AST 40 H (14-36) U/L ALT 18 (4-34) U/L Alkaline Phosphatase 101 (38-126) U/L Total Protein 7.6 (6.3-8.2) g/dL Albumin 3.6 (3.5-5.0) g/dL Disposition <Frank Estes - Last Filed: 09/01/22 19:51> Time of Disposition: 23:46 <Carrie Cotto - Last Filed: 09/02/22 00:34> Clinical Impression: Cellulitis Disposition: ADMITTED IP TO THIS HOSP Condition: Fair Referrals: Nicholas Hart MD [Primary Care Provider] - 1-2 days
[2022-09-01 21:42] LABS: Anisocytosis Slight; Basophils % (A) 1 %; Eosinophils # (A) 0.2 k/uL (0-0.7); Eosinophils % (A) 4 %; HCT 36.1 % (34.0-46.0); HGB 10.4 gm/dL (11.4-16.0); Hypochromasia Marked; Lymphocytes # (A) 1.4 k/uL (1.0-4.8); Lymphocytes % (A) 23 %; MCH 25.2 pg (25.0-35.0); MCHC 28.9 g/dL (31.0-37.0); Mean Platelet Volume 8.4; Monocytes # (A) 0.4 k/uL (0-1.0); Monocytes % (A) 7 %; Neutrophils # (A) 3.9 k/uL (1.3-7.7); Neutrophils % (A) 65 %; Platelet Count 168 k/uL (150-450); RBC 4.13 m/uL (3.80-5.40); RDW 17.5 % (11.5-15.5); WBC 6.1 k/uL (3.8-10.6)
[2022-09-01 21:55] LABS: ALT 18 U/L (4-34); AST 40 U/L (14-36); African American GFR (CKD) 66 (>60 ml/min/1.73 sqM); Albumin 3.6 g/dL (3.5-5.0); Alkaline Phosphatase 101 U/L (38-126); Anion Gap 7 mmol/L; Blood Urea Nitrogen 23 mg/dL (7-17); Calcium 8.9 mg/dL (8.4-10.2); Carbon Dioxide 31 mmol/L (22-30); Chloride 100 mmol/L (98-107); Glucose 249 mg/dL (74-99); MCV 87.3 fL (80.0-100.0); Non-African American GFR(CKD) 58 (>60 ml/min/1.73 sqM); Potassium 4.5 mmol/L (3.5-5.1); Sodium 138 mmol/L (137-145); Total Bilirubin 0.7 mg/dL (0.2-1.3); Total Protein 7.6 g/dL (6.3-8.2)
[2022-09-01] MEDS ORDERED: NALOXONE 0.4 MG/ML 1 ML VIAL IV PRN (23:42)
[2022-09-01] MEDS ORDERED: VANCOMYCIN IV PER PHARMACY 1 EACH MISC MISCELLANE PRN (23:45)
[2022-09-01] MEDS: GABAPENTIN 400 MG CAP PO SCH (23:58)
[2022-09-01] MEDS: HYDROcodone/APAP 7.5-325MG 1 EACH TAB PO PRN (23:58)
[2022-09-02] MEDS ORDERED: ACETAMINOPHEN TAB 325 MG TAB PO PRN
[2022-09-02] MEDS ORDERED: VANCOMYCIN 2,000 MG in SODIUM CHLORIDE 0.9% 500 ML 500 ML IVPB ONE (01:00)
[2022-09-02] MEDS: HYDROcodone/APAP 7.5-325MG 1 EACH TAB PO PRN (04:56)
[2022-09-02] MEDS: GABAPENTIN 400 MG CAP PO SCH ×3 (04:56→17:59)
[2022-09-02 06:33] LABS: Glucose,Whole Blood 163 mg/dL (70-110)
[2022-09-02] MEDS ORDERED: NITROGLYCERIN SL TABS 0.4 MG TAB SUBLINGUAL PRN (08:05)
[2022-09-02] MEDS ORDERED: DEXTROSE 50% SYRINGE 50 ML IVP PRN ×4 (08:07→11:53)
[2022-09-02] MEDS ORDERED: GABAPENTIN 400 MG CAP PO SCH (08:15)
--- NOTE | 2022-09-02 08:18 | P.HPIM ---
History of Present Illness H&P Date: 09/02/22 Chief Complaint: Recurrent cellulitis This is an 82-year-old white female with known history of multiple medical issues including atrial fibrillation with diabetes and history of cellulitis of the lower extremities who was essentially started Augmentin about 7-10 days ago. There been this did not go away completely and she started having more weeping with ulcerations of the legs bilaterally. The patient has been struggling because they are getting along and years and her has been also having his own medical issues. After evaluating the patient I told the take her to the hospital for evaluation she is here for appropriate antibiotic treatment. Watch sugars. Was stable. There is no chest pain or shortness of breath. No chills or sweats were stated but the legs have become more painful and started weeping. No diarrhea no voiding difficulties. Review of Systems Constitutional: Denies chills, Denies fever Ears, nose, mouth and throat: Denies headache, Denies sore throat Cardiovascular: Denies chest pain, Denies shortness of breath Respiratory: Denies cough Gastrointestinal: Denies abdominal pain, Denies diarrhea, Denies nausea, Denies vomiting Genitourinary: Denies dysuria, Denies hematuria Musculoskeletal: Reports myalgias Integumentary: Reports foot/leg ulcers, Reports rash, Reports sores Neurological: Denies numbness, Denies weakness Psychiatric: Denies anxiety, Denies depression Endocrine: Denies fatigue, Denies weight change Past Medical History Past Medical History: Atrial Fibrillation, Coronary Artery Disease (CAD), Cancer, Diabetes Mellitus, Hyperlipidemia, Hypertension, Musculoskeletal Diso rder, Neurologic Disorder, Osteoarthritis (OA), Pneumonia, Renal Disease, Rheumatoid Arthritis (RA), Skin Disorder, Thyroid Disorder Additional Past Medical History / Comment(s): Morbid obesity, chronic atrial fibrillation, diabetes mellitus type 2, hypertension, hyperlipidemia, spinal stenosis, osteoarthritis, hypothyroidism, hypertension, history of skin melanoma, history of bursitis with MRSA post I&D, rheumatoid arthritis, Sjogren's disease, 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 without any indication of ILD related to RA, Fall on July 22 transfer to [facility] for MRI, then Fall on 11/16/21 History of Any Multi-Drug Resistant Organisms: MRSA Date of last positivie culture/infection: 01/19/22 MDRO Source:: Wound Past Surgical History: Back Surgery, Breast Surgery, Cholecystectomy, Heart Catheterization, Joint Replacement, Orthopedic Surgery Additional Past Surgical History / Comment(s): Bilateral cataracts with lens implants, arthroscopies to lt wrist, gualbreto knees, gualberto ankles, gualberto hips, lt hip replacment and redone, L/R shoulder sxs, rt breast bx-benign, egd/colonoscopy, skin cancer removal L arm, Lumbar fixnation possible broken Past Anesthesia/Blood Transfusion Reactions: No Reported Reaction Additional Past Anesthesia/Blood Transfusion Reaction / Comment(s): Pt has been told not to have anesthesia metabolized by the kidneys and has neurologic Sjogren's with post anesthesia paralysis. Past Psychological History: No Psychological Hx Reported Additional Psychological History / Comment(s): ... Smoking Status: Former smoker Past Alcohol Use History: None Reported Additional Past Alcohol Use History / Comment(s): Pt started smoking in 1961 and quit in 1969 Past Drug Use History: None Reported - Past Family History Mother Family Medical History: CVA/TIA Additional Family Medical History / Comment(s): RUPTURED BOWEL Father Family Medical History: Cancer, Pneumonia Additional Family Medical History / Comment(s): ASPIRATIVE PNA Sister(s) Additional Family Medical History / Comment(s): at age 34 with lupus Medications and Allergies Home Medications Medication Instructions Recorded Confirmed Type Latanoprost [Xalatan 0.005%] 1 drop BOTH EYES HS 08/11/17 09/02/22 History predniSONE 5 mg PO DAILY 07/23/21 09/02/22 History Magnesium Oxide 400 mg PO DAILY 08/30/21 09/02/22 History methocarbamoL [Methocarbamol] 500 mg PO HS 08/30/21 09/02/22 History Calcium Citrate/Vitamin D3 1 tab PO BID@1000,1730 11/16/21 09/02/22 History [Citracal + D Maximum Caplet] Digoxin [Lanoxin] 125 mcg PO Q2D@1000 11/16/21 09/02/22 History Levothyroxine Sodium [Synthroid] 137 mcg PO HS 11/16/21 09/02/22 History Nitroglycerin Sl Tabs [Nitrostat] 0.4 mg SL Q5M PRN 11/16/21 09/02/22 History Adalimumab [Humira(Cf) Pen] 40 mg SQ DIRECTED 01/09/22 09/02/22 History Apixaban [Eliquis] 5 mg PO BID@1000,1730 05/02/22 09/02/22 History Gabapentin [Neurontin] 400 mg PO Q6H 05/02/22 09/02/22 History HYDROcodone/APAP 7.5-325MG [[place] 1 tab PO Q6H 05/02/22 09/02/22 History 7.5-325] INSULIN LISPRO (HumaLOG) [humaLOG] 8 units SQ AC-LUNCH 05/02/22 09/02/22 History INSULIN LISPRO (HumaLOG) [humaLOG] See Protocol SQ AC-TID 05/02/22 09/02/22 History INSULIN LISPRO (humaLOG) [humaLOG] 4 units SQ AC-SUPPER 05/02/22 09/02/22 History Multivit-Min/FA/Lycopen/Lutein 1 tab PO DAILY 05/02/22 09/02/22 History [Centrum Silver Tablet] Tolterodine Tartrate [Tolterodine 4 mg PO DAILY 05/02/22 09/02/22 History Tartrate ER] metFORMIN HCL [Glucophage] 500 mg PO DAILY@1730 05/02/22 09/02/22 History Bumetanide [BUMEX] 1 mg PO DAILY #30 tab 05/03/22 09/02/22 Rx Insulin Glargine [Lantus Vial] 20 unit SQ HS 05/17/22 09/02/22 History Insulin Glargine [Lantus Vial] 25 unit SQ DAILY@0700 05/17/22 09/02/22 History Acetaminophen Tab [Tylenol] 650 mg PO Q6HR PRN tab 05/20/22 09/02/22 Rx Loratadine [Claritin] 10 mg PO DAILY #30 tab 05/20/22 09/02/22 Rx Mupirocin 2% Oint [Bactroban 2% 1 applic TOPICAL BID PRN 06/28/22 09/02/22 History Oint] SILVER sulfADIAZINE Cream 1 applic TOPICAL BID PRN 06/28/22 09/02/22 History [Silvadene 1% Cream] Tamsulosin [Flomax] 0.4 mg PO DAILY@1200 06/28/22 09/02/22 History Allergies Allergy/AdvReac Type Severity Reaction Status Date / Time adhesive Allergy Rash/Hives Verified 09/02/22 07:59 cephalexin [From Keflex] Allergy Rash/Hives Verified 09/02/22 07:59 grass pollen Allergy Unknown Verified 09/02/22 07:59 mold Allergy Unknown Verified 09/02/22 07:59 Sulfa (Sulfonamide Allergy Rash/Hives Verified 09/02/22 07:59 Antibiotics) newspaper ink Allergy Mild Unknown Uncoded 09/02/22 07:59 Physical Exam Vitals: Vital Signs Temp Pulse Pulse Resp BP BP Pulse Ox 09/02/22 04:44 19 09/02/22 03:47 98.0 F 68 19 123/65 98 09/02/22 01:55 88 20 135/87 96 09/01/22 23:31 75 20 123/86 100 09/01/22 19:37 98.4 F 79 18 121/60 95 Intake and Output 09/01/22 09/02/22 09/02/22 22:59 06:59 14:59 Intake Total 980 Output Total 100 Balance 880 Intake: Intake, IV Titration 500 Amount Vancomycin 2,000 mg In 500 Sodium Chloride 0.9% 500 ml 500 ml @ 167 mls/hr IVPB Q16H [facility] Rx#: [id number] Oral 480 Output: Urine 100 Other: Voiding Method External Catheter # Voids 1 Weight 127.006 kg 127.006 kg - Constitutional General appearance: morbidly obese - EENT Eyes: EOMI - Neck Neck: no lymphadenopathy - Respiratory Respiratory: bilateral: diminished - Cardiovascular Rhythm: irregularly irregular Heart sounds: normal: S1, S2 Abnormal Heart Sounds: no S3 Gallop - Gastrointestinal General gastrointestinal: soft, no tenderness - Integumentary Integumentary: cellulitis - Neurologic Neurologic: CNII-XII intact - Psychiatric Psychiatric: A&O x's 3 Results CBC & Chem 7: 09/01/22 21:34 09/01/22 21:34 Labs: Abnormal Lab Results - Last 24 Hours (Table) 09/01/22 09/01/22 09/02/22 Range/Units 21:34 21:34 06:29 Hgb 10.4 L (11.4-16.0) gm/dL MCHC 28.9 L (31.0-37.0) g/dL RDW 17.5 H (11.5-15.5) % Carbon Dioxide 31 H (22-30) mmol/L BUN 23 H (7-17) mg/dL Glucose 249 H (74-99) mg/dL POC Glucose (mg/dL) 163 H (70-110) mg/dL AST 40 H (14-36) U/L Thrombosis Risk Factor Assmnt - Choose All That Apply Any of the Below Risk Factors Present?: Yes Each Factor Represents 1 point: Obesity (BMI >25), Swollen legs (current) Other Risk Factors: Yes Each Risk Factor Represents 3 Points: Age 75 years or older Thrombosis Risk Factor Assessment Total Risk Factor Score: 5 Thrombosis Risk Factor Assessment Level: High Risk Assessment and Plan (1) Cellulitis Current Visit: Yes Status: Acute Code(s): L03.90 - CELLULITIS, UNSPECIFIED SNOMED Code(s): 925029709 (2) Atrial fibrillation Current Visit: No Status: Acute Code(s): I48.91 - UNSPECIFIED ATRIAL FIBRILLATION SNOMED Code(s): 39598955 (3) CHF (congestive heart failure) Current Visit: No Status: Acute Code(s): I50.9 - HEART FAILURE, UNSPECIFIED SNOMED Code(s): 30536004 (4) Diabetes Current Visit: No Status: Acute Code(s): E11.9 - TYPE 2 DIABETES MELLITUS WITHOUT COMPLICATIONS SNOMED Code(s): 49407319 (5) Gout Current Visit: No Status: Acute Code(s): M10.9 - GOUT, UNSPECIFIED SNOMED Code(s): 13939385 (6) Inability to perform activities of daily living Current Visit: No Status: Acute Code(s): Z78.9 - OTHER SPECIFIED HEALTH STATUS SNOMED Code(s): 127837431 (7) Increased weakness when ambulating Current Visit: No Status: Acute Code(s): R53.1 - WEAKNESS SNOMED Code(s): 000635423 (8) Insulin dependent diabetes mellitus Current Visit: No Status: Acute Code(s): SZW4875 - SNOMED Code(s): 54864050 (9) Pulmonary hypertension Current Visit: No Status: Acute Code(s): I27.20 - PULMONARY HYPERTENSION, UNSPECIFIED SNOMED Code(s): 38641180 Plan: Reconcile home medications. Appropriate pain control. Continue empiric anabolic treatment. Consult infectious disease. Discharge planning if necessary. Check CBC and CMP in a.m. Place on sliding scale.
[2022-09-02] MEDS ORDERED: BUMETANIDE 1 MG TAB PO PRN (09:00)
[2022-09-02] MEDS ORDERED: PATIENT'S OWN (Adalimumab [Humira(Cf) Pen] 40 MG/0.4 ML Pen.Ij.Kit) SQ SCH (09:00)
[2022-09-02] MEDS: MULTIVITAMINS, THERA 1 EACH TAB PO SCH (09:46)
[2022-09-02] MEDS: APIXABAN 5 MG TAB PO SCH ×2 (09:46→18:00)
[2022-09-02] MEDS: MAGNESIUM OXIDE 400 MG TAB PO SCH (09:46)
[2022-09-02] MEDS: LORATADINE 10 MG TAB PO SCH (09:46)
[2022-09-02] MEDS: methocarbamoL 750 MG TAB PO SCH ×3 (09:47→21:21)
[2022-09-02] MEDS: CALCIUM CARB-VIT D 500 MG-5 MCG TAB PO SCH ×2 (09:47→17:59)
[2022-09-02] MEDS: predniSONE 5 MG TAB PO SCH (09:47)
[2022-09-02] MEDS: OXYBUTYNIN 10 MG TAB.ER.24 PO SCH (09:47)
[2022-09-02 11:24] LABS: Glucose,Whole Blood 249 mg/dL (70-110)
[2022-09-02] MEDS: TAMSULOSIN 0.4 MG CAP.ER.24H PO SCH (12:03)
[2022-09-02] MEDS: HYDROcodone/APAP 10-325MG 1 EACH TAB PO SCH ×2 (12:03→18:05)
[2022-09-02] MEDS: INSULIN ASPART (NovoLOG) 100 UNIT/ML VIAL SQ SCH ×5 (12:04→21:22)
[2022-09-02 16:40] LABS: Glucose,Whole Blood 208 mg/dL (70-110)
[2022-09-02] MEDS: metFORMIN 500 MG TAB PO SCH (18:00)
[2022-09-02] MEDS: VANCOMYCIN 2,000 MG in SODIUM CHLORIDE 0.9% 500 ML 500 ML IVPB SCH (18:00)
--- NOTE | 2022-09-02 18:50 | P.CONS ---
History of Present Illness - Reason for Consult Consult date: 09/02/22 cellulitis Requesting physician: Carrie Cotto - Chief Complaint Bilateral leg swelling and pain x days - History of Present Illness Patient is a 82-year-old female with a past medical history significant for diabetes mellitus hypertension hyperlipidemia previous history of MRSA skin soft tissue infection apparently did have a bilateral lower extremity swelling redness and some superficial ulceration that has been treated in the outpatient setting with oral Augmentin for about a week and 10 days however the patient did not have any improvement patient was subsequently sent to the ER to be admitted for IV antibiotics on presentation to the hospital the patient was afebrile and no fever has been recorded subsequently patient did have a normal white count kidney function has been normal liver exams are normal patient was started on IV vancomycin infectious disease was consulted for further management of antibiotic therapy, patient complaining of pain and swelling especially to the left lower extremity to have some superficial ulceration denies any foul-smelling drainage pain is mostly sharp 78 of 10 no radiation Review of Systems Positive point and negatives has been mentioned in the HPI, complete review of systems was performed and all other systems are negative Past Medical History Past Medical History: Atrial Fibrillation, Coronary Artery Disease (CAD), Cancer, Diabetes Mellitus, Hyperlipidemia, Hypertension, Musculoskeletal Disorder, Neurologic Disorder, Osteoarthritis (OA), Pneumonia, Renal Disease, Rheumatoid Arthritis (RA), Skin Disorder, Thyroid Disorder Additional Past Medical History / Comment(s): Morbid obesity, chronic atrial fi brillation, diabetes mellitus type 2, hypertension, hyperlipidemia, spinal stenosis, osteoarthritis, hypothyroidism, hypertension, history of skin melanoma, history of bursitis with MRSA post I&D, rheumatoid arthritis, Sjogren's disease, 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 without any indication of ILD related to RA, Fall on July 22 transfer to [facility] for MRI, then Fall on 11/16/21 History of Any Multi-Drug Resistant Organisms: MRSA Year Discovered:: 01/19/22 MDRO Source:: Wound Past Surgical History: Back Surgery, Breast Surgery, Cholecystectomy, Heart Catheterization, Joint Replacement, Orthopedic Surgery Additional Past Surgical History / Comment(s): Bilateral cataracts with lens implants, arthroscopies to lt wrist, gualberto knees, gualberto ankles, gualberto hips, lt hip replacment and redone, L/R shoulder sxs, rt breast bx-benign, egd/colonoscopy, skin cancer removal L arm, Lumbar fixnation possible broken Past Anesthesia/Blood Transfusion Reactions: No Reported Reaction Additional Past Anesthesia/Blood Transfusion Reaction / Comm: Pt has been told not to have anesthesia metabolized by the kidneys and has neurologic Sjogren's with post anesthesia paralysis. Past Psychological History: No Psychological Hx Reported Additional Psychological History / Comment(s): ... Smoking Status: Former smoker Past Alcohol Use History: None Reported Additional Past Alcohol Use History / Comment(s): Pt started smoking in 3 and quit in 1969 Past Drug Use History: None Reported - Past Family History Mother Family Medical History: CVA/TIA Additional Family Medical History / Comment(s): RUPTURED BOWEL Father Family Medical History: Cancer, Pneumonia Additional Family Medical History / Comment(s): ASPIRATIVE PNA Sister(s) Additional Family Medical History / Comment(s): at age 34 with lupus Medications and Allergies Home Medications Medication Instructions Recorded Confirmed Type Latanoprost [Xalatan 0.005%] 1 drop BOTH EYES HS 08/11/17 09/02/22 History predniSONE 5 mg PO DAILY 07/23/21 09/02/22 History Magnesium Oxide 400 mg PO DAILY 08/30/21 09/02/22 History Calcium Citrate/Vitamin D3 1 tab PO BID@1000,1730 11/16/21 09/02/22 History [Citracal + D Maximum Caplet] Digoxin [Lanoxin] 125 mcg PO Q2D@1000 11/16/21 09/02/22 History Nitroglycerin Sl Tabs [Nitrostat] 0.4 mg SL Q5M PRN 11/16/21 09/02/22 History Adalimumab [Humira(Cf) Pen] 40 mg SQ Q14D 01/09/22 09/02/22 History Apixaban [Eliquis] 5 mg PO BID@1000,1730 05/02/22 09/02/22 History Gabapentin [Neurontin] 400 mg PO Q6H 05/02/22 09/02/22 History INSULIN LISPRO (HumaLOG) [humaLOG] 8 units SQ AC-LUNCH 05/02/22 09/02/22 History INSULIN LISPRO (HumaLOG) [humaLOG] See Protocol SQ AC-TID 05/02/22 09/02/22 History INSULIN LISPRO (humaLOG) [humaLOG] 4 units SQ AC-SUPPER 05/02/22 09/02/22 History Multivit-Min/FA/Lycopen/Lutein 1 tab PO DAILY 05/02/22 09/02/22 History [Centrum Silver Tablet] Tolterodine Tartrate [Tolterodine 4 mg PO DAILY 05/02/22 09/02/22 History Tartrate ER] metFORMIN HCL [Glucophage] 500 mg PO DAILY@1700 05/02/22 09/02/22 History Insulin Glargine [Lantus Vial] 20 unit SQ HS 05/17/22 09/02/22 History Insulin Glargine [Lantus Vial] 25 unit SQ DAILY@0700 05/17/22 09/02/22 History Acetaminophen Tab [Tylenol] 650 mg PO Q6HR PRN tab 05/20/22 09/02/22 Rx Loratadine [Claritin] 10 mg PO DAILY #30 tab 05/20/22 09/02/22 Rx SILVER sulfADIAZINE Cream 1 applic TOPICAL BID PRN 06/28/22 09/02/22 History [Silvadene 1% Cream] Tamsulosin [Flomax] 0.4 mg PO DAILY@1200 06/28/22 09/02/22 History Bumetanide [BUMEX] 1 - 2 mg PO DAILY PRN 09/02/22 09/02/22 History HYDROcodone/APAP 10-325MG [[place] 1 tab PO Q6H 09/02/22 09/02/22 History 10-325] Levothyroxine Sodium [Synthroid] 150 mcg PO HS 09/02/22 09/02/22 History methocarbamoL [Robaxin-750] 750 mg PO TID 09/02/22 09/02/22 History Linezolid [Zyvox] 600 mg PO Q12H #20 tab 09/05/22 Rx Allergies Allergy/AdvReac Type Severity Reaction Status Date / Time adhesive Allergy Rash/Hives Verified 09/02/22 07:59 cephalexin [From Keflex] Allergy Rash/Hives Verified 09/02/22 07:59 grass pollen Allergy Unknown Verified 09/02/22 07:59 mold Allergy Unknown Verified 09/02/22 07:59 Sulfa (Sulfonamide Allergy Rash/Hives Verified 09/02/22 07:59 Antibiotics) newspaper ink Allergy Mild Unknown Uncoded 09/02/22 07:59 Physical Exam Vitals: Vital Signs Temp Pulse Pulse Resp BP BP Pulse Ox 09/02/22 09:47 88 16 09/02/22 07:10 97.9 F 88 16 127/68 94 L 09/02/22 04:44 19 09/02/22 03:47 98.0 F 68 19 123/65 98 09/02/22 01:55 88 20 135/87 96 09/01/22 23:31 75 20 123/86 100 09/01/22 19:37 98.4 F 79 18 121/60 95 Intake and Output 09/01/22 09/02/22 09/02/22 22:59 06:59 14:59 Intake Total 980 Output Total 100 Balance 880 Intake: Intake, IV Titration 500 Amount Vancomycin 2,000 mg In 500 Sodium Chloride 0.9% 500 ml 500 ml @ 167 mls/hr IVPB Q16H [facility] Rx#: [id number] Oral 480 Output: Urine 100 Other: Voiding Method External Catheter External Catheter # Voids 1 Weight 127.006 kg 127.006 kg Elderly female lying in bed in no distress Respiratory system unlabored breathing clear to auscultation currently Abdominal soft no tenderness Bilateral lower extremity swelling redness and slightly decreased Exam completed with the help of CORN SHUCKER Results CBC & Chem 7: 09/05/22 07:59 09/05/22 07:59 Labs: Abnormal Lab Results - Last 24 Hours (Table) 09/01/22 09/01/22 09/02/22 Range/Units 21:34 21:34 06:29 Hgb 10.4 L (11.4-16.0) gm/dL MCHC 28.9 L (31.0-37.0) g/dL RDW 17.5 H (11.5-15.5) % Carbon Dioxide 31 H (22-30) mmol/L BUN 23 H (7-17) mg/dL Glucose 249 H (74-99) mg/dL POC Glucose (mg/dL) 163 H (70-110) mg/dL AST 40 H (14-36) U/L Assessment and Plan (1) Cellulitis Status: Acute Code(s): L03.90 - CELLULITIS, UNSPECIFIED SNOMED Code(s): 722297193 Plan: this was a telehealth visit 1patient presented to hospital with lower extremity cellulitis failing outpatient oral Augmentin therapy and did have a previous history of MRSA skin soft tissue infection concerning for possible MRSA infection 2-benoit area of the redness 3-local cultures 4-vancomycin pharmacy to dose with a target trough of 15 while watching kidney function and Vanco trough closely. We will follow on clinical condition and cultures to further adjust medication if needed Thank you for this consultation we will follow the patient along with you Time with Patient: Greater than 30
[2022-09-02] MEDS ORDERED: LEVOTHYROXINE 137 MCG TAB PO SCH (21:00)
[2022-09-02 21:17] LABS: Glucose,Whole Blood 246 mg/dL (70-110)
[2022-09-02] MEDS: INSULIN DETEMIR (LEVEMIR) 100 UNIT/ML SYR SQ SCH (21:21)
[2022-09-02] MEDS: LATANOPROST 0.005% OPHTH DROPS 2.5 ML BTL BOTH EYES SCH (22:28)
[2022-09-03] MEDS: HYDROcodone/APAP 10-325MG 1 EACH TAB PO SCH ×4 (00:20→18:17)
[2022-09-03] MEDS: GABAPENTIN 400 MG CAP PO SCH ×4 (00:21→18:17)
[2022-09-03 06:03] LABS: Glucose,Whole Blood 205 mg/dL (70-110)
[2022-09-03] MEDS: INSULIN ASPART (NovoLOG) 100 UNIT/ML VIAL SQ SCH ×6 (06:06→22:01)
[2022-09-03] MEDS: INSULIN DETEMIR (LEVEMIR) 100 UNIT/ML SYR SQ SCH ×3 (06:07→22:24)
[2022-09-03] MEDS: CALCIUM CARB-VIT D 500 MG-5 MCG TAB PO SCH ×2 (09:34→17:33)
[2022-09-03] MEDS: APIXABAN 5 MG TAB PO SCH ×2 (09:34→17:33)
[2022-09-03] MEDS: MULTIVITAMINS, THERA 1 EACH TAB PO SCH (09:34)
[2022-09-03] MEDS: OXYBUTYNIN 10 MG TAB.ER.24 PO SCH (09:35)
[2022-09-03] MEDS: predniSONE 5 MG TAB PO SCH (09:35)
[2022-09-03] MEDS: methocarbamoL 750 MG TAB PO SCH ×3 (09:35→22:00)
[2022-09-03] MEDS: DIGOXIN 125 MCG TAB PO SCH (09:35)
[2022-09-03] MEDS: VANCOMYCIN 2,000 MG in SODIUM CHLORIDE 0.9% 500 ML 500 ML IVPB SCH (09:36)
[2022-09-03] MEDS: LORATADINE 10 MG TAB PO SCH (09:43)
[2022-09-03] MEDS: MAGNESIUM OXIDE 400 MG TAB PO SCH (09:45)
[2022-09-03 12:05] LABS: Glucose,Whole Blood 189 mg/dL (70-110)
[2022-09-03 12:50] VITALS: BMI 34.9
[2022-09-03 13:00] LABS: Anisocytosis Slight; HCT 33.9 % (34.0-46.0); HGB 9.8 gm/dL (11.4-16.0); Hypochromasia Marked; MCH 25.8 pg (25.0-35.0); MCV 88.7 fL (80.0-100.0); Mean Platelet Volume 9.1; Platelet Count 170 k/uL (150-450); RBC 3.82 m/uL (3.80-5.40); RDW 17.3 % (11.5-15.5); WBC 5.8 k/uL (3.8-10.6)
[2022-09-03] MEDS: TAMSULOSIN 0.4 MG CAP.ER.24H PO SCH (13:01)
[2022-09-03 13:13] LABS: ALT 16 U/L (4-34); AST 32 U/L (14-36); African American GFR (CKD) 84 (>60 ml/min/1.73 sqM); Albumin 3.1 g/dL (3.5-5.0); Albumin/Globulin Ratio 0.8; Alkaline Phosphatase 90 U/L (38-126); Anion Gap 3 mmol/L; Blood Urea Nitrogen 21 mg/dL (7-17); Calcium 8.5 mg/dL (8.4-10.2); Carbon Dioxide 33 mmol/L (22-30); Chloride 101 mmol/L (98-107); Globulin 3.7 g/dL; Glucose 174 mg/dL (74-99); Non-African American GFR(CKD) 73 (>60 ml/min/1.73 sqM); Potassium 4.2 mmol/L (3.5-5.1); Sodium 137 mmol/L (137-145); Total Bilirubin 0.5 mg/dL (0.2-1.3); Total Protein 6.8 g/dL (6.3-8.2)
--- NOTE | 2022-09-03 14:03 | P.PN ---
Subjective Progress Note Date: 09/03/22 Principal diagnosis: Leg cellulitis Patient is a 82-year-old female with a past medical history significant for diabetes mellitus hypertension hyperlipidemia previous history of MRSA skin soft tissue infection apparently did have a bilateral lower extremity swelling redness and some superficial ulceration that has been treated in the outpatient setting with oral Augmentin, with no improvement subsequently will hospital concerning for cellulitis failing outpatient therapy. On today's evaluation that is 09/03/2022, the patient denies having any fever or any chills patient lower extremity pain and swelling has slightly decreased did have some superficial ulceration but no foul-smelling drainage no chest pain shortness of breath or cough Objective - Vital Signs Vital signs: Vital Signs Temp 97.9 F 09/03/22 07:25 Pulse 96 09/03/22 08:35 Resp 17 09/03/22 08:35 BP 129/77 09/03/22 07:25 Pulse Ox 100 09/03/22 07:25 FiO2 Intake & Output 09/02/22 09/03/22 09/03/22 18:59 06:59 18:59 Other: Voiding Method External Catheter Bedside Commode # Voids 4 4 - Exam Elderly female lying in bed in no distress Respiratory system unlabored breathing clear to auscultation currently Abdominal soft no tenderness Bilateral lower extremity swelling redness and slightly decreased Exam completed with the help of NUCLE[employer]UEL ENRICHMENT TECHNICIAN - Labs CBC & Chem 7: 09/03/22 07:04 09/03/22 07:04 Labs: Abnormal Lab Results - Last 24 Hours (Table) 09/02/22 09/02/22 09/02/22 Range/Units 11:23 16:32 21:16 POC Glucose (mg/dL) 249 H 208 H 246 H (70-110) mg/dL 09/03/22 Range/Units 06:00 POC Glucose (mg/dL) 205 H (70-110) mg/dL Microbiology - Last 24 Hours (Table) 09/02/22 14:15 Gram Stain - Preliminary Leg - Right Assessment and Plan (1) Cellulitis Current Visit: Yes Status: Acute Code(s): L03.90 - CELLULITIS, UNSPECIFIED SNOMED Code(s): 152534139 Plan: this was a telehealth visit 1patient presented to hospital with lower extremity cellulitis failing outpatient oral Augmentin therapy and did have a previous history of MRSA skin soft tissue infection concerning for possible MRSA infection 2-Patient seem to have shown some clinical improvement and will continue vancomycin pharmacy to dose with a target trough of 15 while watching kidney function and Vanco trough closely. Time with Patient: Less than 30
[2022-09-03 16:41] LABS: Glucose,Whole Blood 188 mg/dL (70-110)
[2022-09-03] MEDS: metFORMIN 500 MG TAB PO SCH (17:33)
[2022-09-03 21:57] LABS: Glucose,Whole Blood 205 mg/dL (70-110)
[2022-09-03] MEDS: HYDROcodone/APAP 7.5-325MG 1 EACH TAB PO PRN (22:00)
[2022-09-03] MEDS: LATANOPROST 0.005% OPHTH DROPS 2.5 ML BTL BOTH EYES SCH (22:01)
[2022-09-04] MEDS: GABAPENTIN 400 MG CAP PO SCH ×4 (00:51→17:28)
[2022-09-04] MEDS: HYDROcodone/APAP 10-325MG 1 EACH TAB PO SCH ×4 (00:51→17:28)
[2022-09-04] MEDS: VANCOMYCIN 2,000 MG in SODIUM CHLORIDE 0.9% 500 ML 500 ML IVPB SCH ×2 (00:52→17:29)
[2022-09-04 05:58] LABS: Glucose,Whole Blood 200 mg/dL (70-110)
[2022-09-04] MEDS: INSULIN DETEMIR (LEVEMIR) 100 UNIT/ML SYR SQ SCH ×2 (07:59→21:30)
[2022-09-04] MEDS: INSULIN ASPART (NovoLOG) 100 UNIT/ML VIAL SQ SCH ×6 (07:59→21:30)
[2022-09-04] MEDS: OXYBUTYNIN 10 MG TAB.ER.24 PO SCH (08:00)
[2022-09-04] MEDS: MULTIVITAMINS, THERA 1 EACH TAB PO SCH (08:00)
[2022-09-04] MEDS: predniSONE 5 MG TAB PO SCH (08:00)
[2022-09-04] MEDS: LORATADINE 10 MG TAB PO SCH (08:00)
[2022-09-04] MEDS: MAGNESIUM OXIDE 400 MG TAB PO SCH (08:00)
[2022-09-04] MEDS: methocarbamoL 750 MG TAB PO SCH ×3 (08:00→21:59)
[2022-09-04] MEDS: APIXABAN 5 MG TAB PO SCH ×2 (10:31→17:28)
[2022-09-04] MEDS: CALCIUM CARB-VIT D 500 MG-5 MCG TAB PO SCH ×2 (10:31→17:28)
[2022-09-04 11:38] LABS: Glucose,Whole Blood 176 mg/dL (70-110)
[2022-09-04] MEDS: TAMSULOSIN 0.4 MG CAP.ER.24H PO SCH (12:16)
[2022-09-04 16:38] LABS: Glucose,Whole Blood 143 mg/dL (70-110)
[2022-09-04] MEDS: metFORMIN 500 MG TAB PO SCH (17:28)
--- NOTE | 2022-09-04 19:53 | P.PN ---
Subjective Progress Note Date: 09/03/22 Patient is a 82-year-old female with known history of hypertension, diabetes, hyperlipidemia and history of MRSA soft tissue skin infection presents to ER with bilateral lower extremity swelling and redness and multiple blisters with ulceration. Patient was on outpatient antibiotics with Augmentin without much improvement and presented to ER for evaluation. 09/03/2022 Patient is currently sitting on the side of the bed. Awake alert and oriented x3. No complaints of chest pain or shortness breath. No fever no chills. Lower extremity pain and swelling slightly improved but still having leg swelling and blisters on the lower extremities. Patient is being continued on antibiotics Formal vancomycin. ID is on board. Laboratory data showed WBC 5.8 hemoglobin 9.8 and platelets 170, sodium 137 potassium 4.2 chloride 111 bicarb is 33 BUN 21 creatinine 0.77 and blood sugar is 174. A1c 10.9. Current medications reviewed. Objective - Vital Signs Vital signs: Vital Signs Temp 98.0 F 09/04/22 15:00 Pulse 67 09/04/22 15:00 Resp 18 09/04/22 15:00 BP 131/75 09/04/22 15:00 Pulse Ox 96 09/04/22 15:00 FiO2 Intake & Output 09/04/22 09/04/22 09/05/22 06:59 18:59 06:59 Intake Total 1080 Balance 1080 Intake: Oral 1080 Other: Voiding Method Bedside Commode # Voids 3 4 # Bowel Movements 1 - Exam PHYSICAL EXAMINATION: Patient is lying in the bed comfortably, no acute distress, awake alert and oriented.. HEENT: Normocephalic. Neck is supple. Pupils reactive. Nostrils clear. Oral cavity is moist. Neck reveals no JVD, carotid bruits, or thyromegaly. CHEST EXAMINATION: Trachea is central. Symmetrical expansion. Lung oliveira clear to auscultation and percussion. CARDIAC: Normal S1, S2 with no gallops. No murmurs ABDOMEN: Soft. Bowel sounds present. Nontender. No organomegaly. No abdominal bruits. Extremities: Patient does have bilateral lower extremity redness and swelling and superficial ulcerations and blisters noted.. No clubbing or cyanosis Neurologically awake, alert, oriented x3 with well-coordinated movements. No focal deficits noted Skin: No rash or skin lesions. Psychiatric: Coperative. Nonsuicidal, Musculoskeletal: No joint swelling or deformity. Normal range of motion. - Labs CBC & Chem 7: 09/03/22 07:04 09/03/22 07:04 Labs: Abnormal Lab Results - Last 24 Hours (Table) 09/03/22 09/03/22 09/04/22 Range/Units 07:04 21:55 05:56 POC Glucose (mg/dL) 205 H 200 H (70-110) mg/dL Hemoglobin A1c 10.9 H (<=6.0) % 09/04/22 09/04/22 Range/Units 11:36 16:36 POC Glucose (mg/dL) 176 H 143 H (70-110) mg/dL Hemoglobin A1c (<=6.0) % Microbiology - Last 24 Hours (Table) 09/02/22 00:15 Blood Culture - Preliminary Blood 09/02/22 00:00 Blood Culture - Preliminary Blood 09/02/22 14:15 Gram Stain - Final Leg - Right Wound Culture - Final Methicillin resist S. aureus Assessment and Plan Assessment: Bilateral lower extremity cellulitis and superficial ulcerations and blisters and failed outpatient antibiotic therapy. Uncontrolled diabetes type 2 with A1c 10.9. Insulin-dependent Diabetic peripheral neuropathy Hypothyroidism Atrial fibrillation Chronic CHF History of gout Pulmonary hypertension History of MRSA infection Prior history of smoking GI and DVT prophylaxis. Plan: Patient will be continued antibiotics for home vancomycin. Follow-up final culture report and sensitivity report. Patient be continued on home medication including Eliquis, digoxin and follow-up closely. Continue with insulin regimen and insulin sliding scale. PT OT will be consulted . Time with Patient: Greater than 30
[2022-09-04 20:58] LABS: Glucose,Whole Blood 213 mg/dL (70-110)
[2022-09-04] MEDS: LATANOPROST 0.005% OPHTH DROPS 2.5 ML BTL BOTH EYES SCH (21:30)
[2022-09-04] MEDS: HYDROcodone/APAP 7.5-325MG 1 EACH TAB PO PRN (22:39)
[2022-09-05] MEDS: HYDROcodone/APAP 10-325MG 1 EACH TAB PO SCH ×3 (00:25→11:43)
[2022-09-05] MEDS: GABAPENTIN 400 MG CAP PO SCH ×3 (00:25→11:43)
--- NOTE | 2022-09-05 02:15 | P.PN ---
Subjective Progress Note Date: 09/04/22 Patient is a 82-year-old female with known history of hypertension, diabetes, hyperlipidemia and history of MRSA soft tissue skin infection presents to ER with bilateral lower extremity swelling and redness and multiple blisters with ulceration. Patient was on outpatient antibiotics with Augmentin without much improvement and presented to ER for evaluation. 09/03/2022 Patient is currently sitting on the side of the bed. Awake alert and oriented x3. No complaints of chest pain or shortness breath. No fever no chills. Lower extremity pain and swelling slightly improved but still having leg swelling and blisters on the lower extremities. Patient is being continued on antibiotics Formal vancomycin. ID is on board. Laboratory data showed WBC 5.8 hemoglobin 9.8 and platelets 170, sodium 137 potassium 4.2 chloride 111 bicarb is 33 BUN 21 creatinine 0.77 and blood sugar is 174. A1c 10.9. 09/04/2022 Patient is currently resting in bed. Awake alert oriented x3. Currently on room air. Afebrile overnight. No complaints of chest pain or shortness of breath. Leg swelling and redness is improving. Wound cultures are growing MRSA. Patient remains on antibiotics in the form of vancomycin. No nausea vomiting abdominal pain or diarrhea. Blood sugar is better controlled. CBG 200 this morning. Current medications reviewed. Objective - Vital Signs Vital signs: Vital Signs Temp 98.0 F 09/04/22 15:00 Pulse 67 09/04/22 15:00 Resp 18 09/04/22 15:00 BP 131/75 09/04/22 15:00 Pulse Ox 96 09/04/22 15:00 FiO2 Intake & Output 09/04/22 09/04/22 09/05/22 06:59 18:59 06:59 Intake Total 1080 Balance 1080 Intake: Oral 1080 Other: Voiding Method Bedside Commode # Voids 3 4 # Bowel Movements 1 - Exam PHYSICAL EXAMINATION: Patient is lying in the bed comfortably, no acute distress, awake alert and oriented.. HEENT: Normocephalic. Neck is supple. Pupils reactive. Nostrils clear. Oral cavity is moist. Neck reveals no JVD, carotid bruits, or thyromegaly. CHEST EXAMINATION: Trachea is central. Symmetrical expansion. Lung oliveira clear to auscultation and percussion. CARDIAC: Normal S1, S2 with no gallops. No murmurs ABDOMEN: Soft. Bowel sounds present. Nontender. No organomegaly. No abdominal bruits. Extremities: Patient does have bilateral lower extremity redness and swelling and superficial ulcerations and blisters noted.. No clubbing or cyanosis Neurologically awake, alert, oriented x3 with well-coordinated movements. No focal deficits noted Skin: No rash or skin lesions. Psychiatric: Coperative. Nonsuicidal, Musculoskeletal: No joint swelling or deformity. Normal range of motion. - Labs CBC & Chem 7: 09/03/22 07:04 09/03/22 07:04 Labs: Abnormal Lab Results - Last 24 Hours (Table) 09/03/22 09/03/22 09/04/22 Range/Units 07:04 21:55 05:56 POC Glucose (mg/dL) 205 H 200 H (70-110) mg/dL Hemoglobin A1c 10.9 H (<=6.0) % 09/04/22 09/04/22 Range/Units 11:36 16:36 POC Glucose (mg/dL) 176 H 143 H (70-110) mg/dL Hemoglobin A1c (<=6.0) % Microbiology - Last 24 Hours (Table) 09/02/22 00:15 Blood Culture - Preliminary Blood 09/02/22 00:00 Blood Culture - Preliminary Blood 09/02/22 14:15 Gram Stain - Final Leg - Right Wound Culture - Final Methicillin resist S. aureus Assessment and Plan Assessment: Bilateral lower extremity cellulitis and superficial ulcerations and blisters and failed outpatient antibiotic therapy. Uncontrolled diabetes type 2 with A1c 10.9. Insulin-dependent Diabetic peripheral neuropathy Hypothyroidism Atrial fibrillation Chronic CHF History of gout Pulmonary hypertension History of MRSA infection Prior history of smoking GI and DVT prophylaxis. Plan: Patient will be continued antibiotics , vancomycin. Wound cultures growing SA.. Patient be continued on home medication including Eliquis, digoxin and follow-up closely. Continue with insulin regimen and insulin sliding scale. PT OT will be consulted .
[2022-09-05] MEDS: INSULIN DETEMIR (LEVEMIR) 100 UNIT/ML SYR SQ SCH (05:54)
[2022-09-05 06:09] LABS: Glucose,Whole Blood 153 mg/dL (70-110)
[2022-09-05] MEDS: INSULIN ASPART (NovoLOG) 100 UNIT/ML VIAL SQ SCH ×3 (06:42→11:43)
[2022-09-05 07:54] VITALS: BP 145/65; PULSE 59; RESP 18; TEMP 98.5
[2022-09-05] MEDS ORDERED: VANCOMYCIN TROUGH DUE 1 EACH MISC MISCELLANE ONE (08:00)
--- NOTE | 2022-09-05 08:36 | P.DS ---
Providers Date of admission: 09/02/22 00:33 Attending physician: Nicholas Hart Consults: 09/01/22 23:42 Consult Physician Urgent Consulting Provider: Tg Butts Consult Reason/Comments: cellulitis Do you want consulting provider notified?: Yes, Notify in am Primary care physician: iNcholas Hart - Discharge Diagnosis(es) (1) Atrial fibrillation Current Visit: No Status: Acute (2) CHF (congestive heart failure) Current Visit: No Status: Acute (3) Diabetes Current Visit: No Status: Acute (4) Gout Current Visit: No Status: Acute (5) Inability to perform activities of daily living Current Visit: No Status: Acute (6) Increased weakness when ambulating Current Visit: No Status: Acute (7) Insulin dependent diabetes mellitus Current Visit: No Status: Acute (8) Pulmonary hypertension Current Visit: No Status: Acute Hospital Course: This is an 82-year-old female with a known history of hypertension, diabetes, hyperlipidemia and previous MRSA infections. She presented to the emergency room with bilateral lower extremity swelling and redness with multiple blisters with ulceration. She failed outpatient treatment with Augmentin and redness got worse so she presented to the emergency room. Wound cultures are positive for MRSA. Patient has been on IV vancomycin since admission, and redness, swelling and blisters have improved. She is seen sitting on the side of the bed this morning, reports she is feeling well. Patient may be discharged home with recommendations on antibiotic from infectious disease. Patient seen and evaluated by nurse practitioner, physician in agreement with plan Patient Condition at Discharge: Fair Plan - Discharge Summary Discharge Rx Participant: No New Discharge Prescriptions: Continue Latanoprost [Xalatan 0.005%] 1 drop BOTH EYES HS Magnesium Oxide 400 mg PO DAILY Calcium Citrate/Vitamin D3 [Citracal + D Maximum Caplet] 1 tab PO BID@1000,1730 Adalimumab [Humira(Cf) Pen] 40 mg SQ Q14D INSULIN LISPRO (humaLOG) [humaLOG] 4 units SQ AC-SUPPER INSULIN LISPRO (HumaLOG) [humaLOG] 8 units SQ AC-LUNCH metFORMIN HCL [Glucophage] 500 mg PO DAILY@1700 Insulin Glargine [Lantus Vial] 25 unit SQ DAILY@0700 Loratadine [Claritin] 10 mg PO DAILY #30 tab Tamsulosin [Flomax] 0.4 mg PO DAILY@1200 SILVER sulfADIAZINE Cream [Silvadene 1% Cream] 1 applic TOPICAL BID PRN PRN Reason: Skin Irritation Bumetanide [BUMEX] 1 - 2 mg PO DAILY PRN PRN Reason: Edema Levothyroxine Sodium [Synthroid] 150 mcg PO HS methocarbamoL [Robaxin-750] 750 mg PO TID predniSONE 5 mg PO DAILY Nitroglycerin Sl Tabs [Nitrostat] 0.4 mg SL Q5M PRN PRN Reason: Chest Pain Digoxin [Lanoxin] 125 mcg PO Q2D@1000 INSULIN LISPRO (HumaLOG) [humaLOG] See Protocol SQ AC-TID Tolterodine Tartrate [Tolterodine Tartrate ER] 4 mg PO DAILY Multivit-Min/FA/Lycopen/Lutein [Centrum Silver Tablet] 1 tab PO DAILY Gabapentin [Neurontin] 400 mg PO Q6H Apixaban [Eliquis] 5 mg PO BID@1000,1730 Insulin Glargine [Lantus Vial] 20 unit SQ HS Acetaminophen Tab [Tylenol] 650 mg PO Q6HR PRN tab PRN Reason: Mild Pain Or Fever > 100.5 HYDROcodone/APAP 10-325MG [[place] 10-325] 1 tab PO Q6H Discharge Medication List Latanoprost [Xalatan 0.005%] 1 drop BOTH EYES HS 08/11/17 [History] predniSONE 5 mg PO DAILY 07/23/21 [History] Magnesium Oxide 400 mg PO DAILY 08/30/21 [History] Calcium Citrate/Vitamin D3 [Citracal + D Maximum Caplet] 1 tab PO BID@1000,1730 11/16/21 [History] Digoxin [Lanoxin] 125 mcg PO Q2D@1000 11/16/21 [History] Nitroglycerin Sl Tabs [Nitrostat] 0.4 mg SL Q5M PRN 11/16/21 [History] Adalimumab [Humira(Cf) Pen] 40 mg SQ Q14D 01/09/22 [History] Apixaban [Eliquis] 5 mg PO BID@1000,1730 05/02/22 [History] Gabapentin [Neurontin] 400 mg PO Q6H 05/02/22 [History] INSULIN LISPRO (HumaLOG) [humaLOG] 8 units SQ AC-LUNCH 05/02/22 [History] INSULIN LISPRO (HumaLOG) [humaLOG] See Protocol SQ AC-TID 05/02/22 [History] INSULIN LISPRO (humaLOG) [humaLOG] 4 units SQ AC-SUPPER 05/02/22 [History] Multivit-Min/FA/Lycopen/Lutein [Centrum Silver Tablet] 1 tab PO DAILY 05/02/22 [History] Tolterodine Tartrate [Tolterodine Tartrate ER] 4 mg PO DAILY 05/02/22 [History] metFORMIN HCL [Glucophage] 500 mg PO DAILY@1700 05/02/22 [History] Insulin Glargine [Lantus Vial] 20 unit SQ HS 05/17/22 [History] Insulin Glargine [Lantus Vial] 25 unit SQ DAILY@0700 05/17/22 [History] Acetaminophen Tab [Tylenol] 650 mg PO Q6HR PRN tab 05/20/22 [Rx] Loratadine [Claritin] 10 mg PO DAILY #30 tab 05/20/22 [Rx] SILVER sulfADIAZINE Cream [Silvadene 1% Cream] 1 applic TOPICAL BID PRN 06/28/22 [History] Tamsulosin [Flomax] 0.4 mg PO DAILY@1200 06/28/22 [History] Bumetanide [BUMEX] 1 - 2 mg PO DAILY PRN 09/02/22 [History] HYDROcodone/APAP 10-325MG [[place] 10-325] 1 tab PO Q6H 09/02/22 [History] Levothyroxine Sodium [Synthroid] 150 mcg PO HS 09/02/22 [History] methocarbamoL [Robaxin-750] 750 mg PO TID 09/02/22 [History] Follow up Appointment(s)/Referral(s): Nicholas Hart MD [Primary Care Provider] - 3 Days Discharge Disposition: HOME SELF-CARE
[2022-09-05 08:46] LABS: Anisocytosis Slight; Basophils % (A) 1 %; Eosinophils # (A) 0.3 k/uL (0-0.7); Eosinophils % (A) 5 %; HCT 34.8 % (34.0-46.0); HGB 10.2 gm/dL (11.4-16.0); Hypochromasia Marked; Lymphocytes # (A) 1.7 k/uL (1.0-4.8); Lymphocytes % (A) 28 %; MCH 25.8 pg (25.0-35.0); MCHC 29.4 g/dL (31.0-37.0); MCV 87.8 fL (80.0-100.0); Mean Platelet Volume 8.5; Monocytes # (A) 0.3 k/uL (0-1.0); Monocytes % (A) 6 %; Neutrophils # (A) 3.4 k/uL (1.3-7.7); Neutrophils % (A) 58 %; Platelet Count 179 k/uL (150-450); RBC 3.96 m/uL (3.80-5.40); WBC 5.9 k/uL (3.8-10.6)
[2022-09-05 09:14] LABS: African American GFR (CKD) 82 (>60 ml/min/1.73 sqM); Anion Gap 6 mmol/L; Blood Urea Nitrogen 18 mg/dL (7-17); Calcium 8.6 mg/dL (8.4-10.2); Carbon Dioxide 30 mmol/L (22-30); Chloride 101 mmol/L (98-107); Glucose 162 mg/dL (74-99); Non-African American GFR(CKD) 71 (>60 ml/min/1.73 sqM); Potassium 4.3 mmol/L (3.5-5.1); Sodium 137 mmol/L (137-145)
[2022-09-05] MEDS: LORATADINE 10 MG TAB PO SCH (10:08)
[2022-09-05] MEDS: OXYBUTYNIN 10 MG TAB.ER.24 PO SCH (10:08)
[2022-09-05] MEDS: MULTIVITAMINS, THERA 1 EACH TAB PO SCH (10:08)
[2022-09-05] MEDS: DIGOXIN 125 MCG TAB PO SCH (10:08)
[2022-09-05] MEDS: CALCIUM CARB-VIT D 500 MG-5 MCG TAB PO SCH (10:08)
[2022-09-05] MEDS: APIXABAN 5 MG TAB PO SCH (10:08)
[2022-09-05] MEDS: MAGNESIUM OXIDE 400 MG TAB PO SCH (10:08)
[2022-09-05] MEDS: methocarbamoL 750 MG TAB PO SCH (10:08)
[2022-09-05] MEDS: VANCOMYCIN 2,000 MG in SODIUM CHLORIDE 0.9% 500 ML 500 ML IVPB SCH (10:09)
[2022-09-05] MEDS: predniSONE 5 MG TAB PO SCH (10:09)
[2022-09-05 11:34] LABS: Glucose,Whole Blood 184 mg/dL (70-110)
[2022-09-05] MEDS: TAMSULOSIN 0.4 MG CAP.ER.24H PO SCH (11:43)
[2022-09-06] MEDS ORDERED: VANCOMYCIN 1,750 MG in SODIUM CHLORIDE 0.9% 500 ML 500 ML IVPB SCH (02:00)
--- NOTE | 2022-09-06 12:01 | CDI ---
Documentation Clarification Form Date: 09/06/2022 11:42:14 AM From: Paola Youngblood Admit Date: 09/02/2022 12:33:00 AM Patient Name: Rosalva Lr Visit Number: [id number] Discharge Date: 09/05/2022 02:35:00 PM ATTENTION: The Clinical Documentation Specialists (CDI) and [facility] Coding Staff appreciate your assistance in clarifying documentation. Please respond to the clarification below the line at the bottom and electronically sign. The CDI & [facility] Coding staff will review the response and follow-up if needed. Please note: Queries are made part of the Legal Health Record. If you have any questions, please contact the author of this message via ITS. Dr. Nicholas Hart Cellulitis is documented in the H&P 09/02/22 and subsequent documentation. Additional clarification regarding the type of cellulitis is requested. History/risk factors: patient is an 82 year old female with a history of diabetes, AFIB, HTN, CHF, hypothyroidism, gout, and rheumatoid arthritis. Clinical Indicators: patient has been experiencing bilateral lower extremity swelling, redness, and superficial ulcerations that was treated in the outpatient setting with oral Augmentin. After 7 to 10 days patient did not have any improvement and was subsequently sent to the ER, and admitted with cellulitis. Patient has a history of MRSA, and cultures are growing MRSA. 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 Treatment: antibiotic therapy with vancomycin. Continued on home medications including eliquis, insulin, and digoxin. Please clarify the etiology of the cellulitis, if known: [ ] Cellulitis is a diabetic skin complication [ x ] Cellulitis is not a diabetic skin complication [ ] Other, please specify: [ ] Unable to determine MTDD
--- NOTE | 2022-09-12 19:46 | P.PN ---
Subjective Progress Note Date: 09/04/22 Principal diagnosis: Leg cellulitis Patient is a 82-year-old female with a past medical history significant for diabetes mellitus hypertension hyperlipidemia previous history of MRSA skin soft tissue infection apparently did have a bilateral lower extremity swelling redness and some superficial ulceration that has been treated in the outpatient setting with oral Augmentin, with no improvement subsequently will hospital concerning for cellulitis failing outpatient therapy. On today's evaluation that is 09/04/2022, the patient is afebrile, patient lower extremity pain and swelling has decreased in intensity , the pt denies chest pain shortness of breath or cough or diarrhea Objective - Vital Signs Vital signs: Vital Signs Temp 98.0 F 09/04/22 15:00 Pulse 67 09/04/22 15:00 Resp 18 09/04/22 15:00 BP 131/75 09/04/22 15:00 Pulse Ox 96 09/04/22 15:00 FiO2 Intake & Output 09/04/22 09/04/22 09/05/22 06:59 18:59 06:59 Intake Total 1080 Balance 1080 Intake: Oral 1080 Other: Voiding Method Bedside Commode # Voids 3 4 # Bowel Movements 1 - Exam Elderly female lying in bed in no distress Respiratory system unlabored breathing clear to auscultation currently Abdominal soft no tenderness Bilateral lower extremity swelling redness and slightly decreased, no drainage - Labs CBC & Chem 7: 09/05/22 07:59 09/05/22 07:59 Labs: Abnormal Lab Results - Last 24 Hours (Table) 09/03/22 09/03/22 09/04/22 Range/Units 07:04 21:55 05:56 POC Glucose (mg/dL) 205 H 200 H (70-110) mg/dL Hemoglobin A1c 10.9 H (<=6.0) % 09/04/22 09/04/22 Range/Units 11:36 16:36 POC Glucose (mg/dL) 176 H 143 H (70-110) mg/dL Hemoglobin A1c (<=6.0) % Microbiology - Last 24 Hours (Table) 09/02/22 00:15 Blood Culture - Preliminary Blood 09/02/22 00:00 Blood Culture - Preliminary Blood 09/02/22 14:15 Gram Stain - Final Leg - Right Wound Culture - Final Methicillin resist S. aureus Assessment and Plan (1) Cellulitis Status: Acute Code(s): L03.90 - CELLULITIS, UNSPECIFIED SNOMED Code(s): 156915978 Plan: 1patient presented to hospital with lower extremity cellulitis failing outpatient oral Augmentin therapy and did have a previous history of MRSA skin soft tissue infection concerning for possible MRSA infection , wound cultures has been finalized as MRSA 2-Patient seem to have shown some clinical improvement and will continue vancomycin with plan to finish therapy with oral antibiotics
--- NOTE | 2022-09-12 19:48 | P.PN ---
Subjective Progress Note Date: 09/05/22 Principal diagnosis: Leg cellulitis Patient is a 82-year-old female with a past medical history significant for diabetes mellitus hypertension hyperlipidemia previous history of MRSA skin soft tissue infection apparently did have a bilateral lower extremity swelling redness and some superficial ulceration that has been treated in the outpatient setting with oral Augmentin, with no improvement subsequently will hospital concerning for cellulitis failing outpatient therapy. On today's evaluation that is 09/05/2022, the patient remains to be afebrile, the pt denies chest pain shortness of breath or cough or diarrhea, patient lower extremity pain and swelling has decreased in intensity and no drainage, Objective - Vital Signs Vital signs: Vital Signs Temp 98.5 F 09/05/22 07:54 Pulse 59 L 09/05/22 07:54 Resp 18 09/05/22 07:54 BP 145/65 09/05/22 07:54 Pulse Ox 97 09/05/22 07:54 FiO2 - Labs CBC & Chem 7: 09/05/22 07:59 09/05/22 07:59 Assessment and Plan (1) Cellulitis Status: Acute Code(s): L03.90 - CELLULITIS, UNSPECIFIED SNOMED Code(s): 581780963 Plan: 1patient presented to hospital with lower extremity cellulitis failing outpatient oral Augmentin therapy and did have a previous history of MRSA skin soft tissue infection concerning for possible MRSA infection , wound cultures has been finalized as MRSA which is resistant to doxy and sulfa 2-Patient seem to have shown some clinical improvement on vancomycin , will finish therapy with oral zyvox , script send to pharmacy Time with Patient: Less than 30
== END 2022-09-05 14:35 | disposition home health service (06) | DRG 603 ==
LOC: EC 19:31 → 4SSUR 09-02 00:33
PROVIDERS: ADMIT Family Medicine; ATTEND Family Medicine
DX: L03.116 Cellulitis of left lower limb (principal); I48.20 Chronic atrial fibrillation, unspecified; L97.829 Non-pressure chronic ulcer of other part of left lower leg with unspecified severity; L97.819 Non-pressure chronic ulcer of other part of right lower leg with unspecified severity; E66.01 Morbid (severe) obesity due to excess calories; Z68.35 Body mass index [BMI] 35.0-35.9, adult; M35.00 Sjogren syndrome, unspecified; M10.9 Gout, unspecified; M06.9 Rheumatoid arthritis, unspecified; L03.115 Cellulitis of right lower limb; E78.5 Hyperlipidemia, unspecified; I25.10 Atherosclerotic heart disease of native coronary artery without angina pectoris; M19.90 Unspecified osteoarthritis, unspecified site; E11.65 Type 2 diabetes mellitus with hyperglycemia; I50.9 Heart failure, unspecified; E11.622 Type 2 diabetes mellitus with other skin ulcer; E11.42 Type 2 diabetes mellitus with diabetic polyneuropathy; I27.20 Pulmonary hypertension, unspecified; I11.0 Hypertensive heart disease with heart failure; E03.9 Hypothyroidism, unspecified; B95.62 Methicillin resistant Staphylococcus aureus infection as the cause of diseases classified elsewhere; Z87.891 Personal history of nicotine dependence; Z86.14 Personal history of Methicillin resistant Staphylococcus aureus infection; Z85.820 Personal history of malignant melanoma of skin; Z79.899 Other long term (current) drug therapy; Z79.890 Hormone replacement therapy; Z79.84 Long term (current) use of oral hypoglycemic drugs; Z79.4 Long term (current) use of insulin; Z79.01 Long term (current) use of anticoagulants; Z87.01 Personal history of pneumonia (recurrent); Z88.2 Allergy status to sulfonamides; Z88.1 Allergy status to other antibiotic agents
CPT/HCPCS: 36415; 80048; 80053; 80202; 83036; 85025; 85027; 87040; 87070; 87077; 87186; 87205; 94760; 96365; 96366; 99284

== ENCOUNTER 2022-11-01 23:46 | Emergency (ER) | payer MEDICARE ==
[2022-11-01] MEDS ORDERED: SODIUM CHLORIDE 0.9% 1,000 ML IV STA (23:58)
[2022-11-02 00:01] LABS: Glucose,Whole Blood 412 mg/dL (70-110)
[2022-11-02 00:06] VITALS: TEMP 98.5
[2022-11-02] MEDS: ONDANSETRON 4 MG/2 ML VIAL IVP STA ×2 (00:06→00:08)
--- NOTE | 2022-11-02 00:17 | ED ---
Nausea/Vomiting/Diarrhea HPI - General Chief complaint: Nausea/Vomiting/Diarrhea Stated complaint: Hyperglycemia Time Seen by Provider: 11/01/22 23:49 Source: patient, EMS, RN notes reviewed, old records reviewed Mode of arrival: EMS Limitations: no limitations - History of Present Illness Initial comments: This is a 82-year-old female to the emergency department for evaluation multiple complaints. Patient does believe her sugar is significantly elevated. Does feel dizzy lightheaded with nausea and vomiting. Patient is complaining of palpitations. MD complaint: nausea, vomiting -: hour(s) Description of Diarrhea: water Associated Abdominal Pain: Yes Location: diffuse Radiation: none Severity: moderate Severity scale (1-10): 4 Quality: stabbing Consistency: constant Improves with: none Worsens with: none Associated Symptoms: chest pain, nausea/vomiting, weakness - Related Data Home Medications Medication Instructions Recorded Confirmed Latanoprost [Xalatan 0.005%] 1 drop BOTH EYES HS 08/11/17 09/02/22 predniSONE 5 mg PO DAILY 07/23/21 09/02/22 Magnesium Oxide 400 mg PO DAILY 08/30/21 09/02/22 Calcium Citrate/Vitamin D3 1 tab PO BID@1000,1730 11/16/21 09/02/22 [Citracal + D Maximum Caplet] Digoxin [Lanoxin] 125 mcg PO Q2D@1000 11/16/21 09/02/22 Nitroglycerin Sl Tabs [Nitrostat] 0.4 mg SL Q5M PRN 11/16/21 09/02/22 Adalimumab [Humira(Cf) Pen] 40 mg SQ Q14D 01/09/22 09/02/22 Apixaban [Eliquis] 5 mg PO BID@1000,1730 05/02/22 09/02/22 Gabapentin [Neurontin] 400 mg PO Q6H 05/02/22 09/02/22 INSULIN LISPRO (HumaLOG) [humaLOG] 8 units SQ AC-LUNCH 05/02/22 09/02/22 INSULIN LISPRO (HumaLOG) [humaLOG] See Protocol SQ AC-TID 05/02/22 09/02/22 INSULIN LISPRO (humaLOG) [humaLOG] 4 units SQ AC-SUPPER 05/02/22 09/02/22 Multivit-Min/FA/Lycopen/Lutein 1 tab PO DAILY 05/02/22 09/02/22 [Centrum Silver Tablet] Tolterodine Tartrate [Tolterodine 4 mg PO DAILY 05/02/22 09/02/22 Tartrate ER] metFORMIN HCL [Glucophage] 500 mg PO DAILY@1700 05/02/22 09/02/22 Insulin Glargine [Lantus Vial] 20 unit SQ HS 05/17/22 09/02/22 Insulin Glargine [Lantus Vial] 25 unit SQ DAILY@0700 05/17/22 09/02/22 SILVER sulfADIAZINE Cream 1 applic TOPICAL BID PRN 06/28/22 09/02/22 [Silvadene 1% Cream] Tamsulosin [Flomax] 0.4 mg PO DAILY@1200 06/28/22 09/02/22 Bumetanide [BUMEX] 1 - 2 mg PO DAILY PRN 09/02/22 09/02/22 HYDROcodone/APAP 10-325MG [[place] 1 tab PO Q6H 09/02/22 09/02/22 10-325] Levothyroxine Sodium [Synthroid] 150 mcg PO HS 09/02/22 09/02/22 methocarbamoL [Robaxin-750] 750 mg PO TID 09/02/22 09/02/22 Previous Rx's Medication Instructions Recorded Acetaminophen Tab [Tylenol] 650 mg PO Q6HR PRN tab 05/20/22 Loratadine [Claritin] 10 mg PO DAILY #30 tab 05/20/22 Linezolid [Zyvox] 600 mg PO Q12H #20 tab 09/05/22 Allergies Allergy/AdvReac Type Severity Reaction Status Date / Time adhesive Allergy Rash/Hives Verified 09/02/22 07:59 cephalexin [From Keflex] Allergy Rash/Hives Verified 09/02/22 07:59 grass pollen Allergy Unknown Verified 09/02/22 07:59 mold Allergy Unknown Verified 09/02/22 07:59 Sulfa (Sulfonamide Allergy Rash/Hives Verified 09/02/22 07:59 Antibiotics) newspaper ink Allergy Mild Unknown Uncoded 09/02/22 07:59 Review of Systems ROS Statement: Those systems with pertinent positive or pertinent negative responses have been documented in the HPI. ROS Other: All systems not noted in ROS Statement are negative. Past Medical History Past Medical History: Atrial Fibrillation, Coronary Artery Disease (CAD), Cancer, Diabetes Mellitus, Hyperlipidemia, Hypertension, Musculoskeletal Disorder, Neurologic Disorder, Osteoarthritis (OA), Pneumonia, Renal Disease, Rheumatoid Arthritis (RA), Skin Disorder, Thyroid Disorder Additional Past Medical History / Comment(s): Morbid obesity, chronic atrial fibrillation, diabetes mellitus type 2, hypertension, hyperlipidemia, spinal stenosis, osteoarthritis, hypothyroidism, hypertension, history of skin melanoma, history of bursitis with MRSA post I&D, rheumatoid arthritis, Sjogren's disease, 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 without any indication of ILD related to RA, Fall on July 22 transfer to [facility] for MRI, then Fall on 11/16/21 History of Any Multi-Drug Resistant Organisms: MRSA Date of last positivie culture/infection: 09/02/22 MDRO Source:: Right Leg Past Surgical History: Back Surgery, Breast Surgery, Cholecystectomy, Heart Catheterization, Joint Replacement, Orthopedic Surgery Additional Past Surgical History / Comment(s): Bilateral cataracts with lens implants, arthroscopies to lt wrist, gualberto knees, gualberto ankles, gualberto hips, lt hip replacment and redone, L/R shoulder sxs, rt breast bx-benign, egd/colonoscopy, skin cancer removal L arm, Lumbar fixnation possible broken Past Anesthesia/Blood Transfusion Reactions: No Reported Reaction Additional Past Anesthesia/Blood Transfusion Reaction / Comment(s): Pt has been told not to have anesthesia metabolized by the kidneys and has neurologic Sjogren's with post anesthesia paralysis. Past Psychological History: No Psychological Hx Reported Smoking Status: Former smoker Past Alcohol Use History: None Reported Past Drug Use History: None Reported - Past Family History Mother Family Medical History: CVA/TIA Additional Family Medical History / Comment(s): RUPTURED BOWEL Father Family Medical History: Cancer, Pneumonia Additional Family Medical History / Comment(s): ASPIRATIVE PNA Sister(s) Additional Family Medical History / Comment(s): at age 34 with lupus General Exam Limitations: no limitations General appearance: alert, in no apparent distress Head exam: Present: atraumatic, normocephalic, normal inspection Eye exam: Present: normal appearance, PERRL, EOMI. Absent: scleral icterus, conjunctival injection, periorbital swelling ENT exam: Present: normal exam, mucous membranes moist Neck exam: Present: normal inspection. Absent: tenderness, meningismus, lymphadenopathy Respiratory exam: Present: normal lung sounds bilaterally. Absent: respiratory distress, wheezes, rales, rhonchi, stridor Cardiovascular Exam: Present: regular rate, normal rhythm, normal heart sounds. Absent: systolic murmur, diastolic murmur, rubs, gallop, clicks GI/Abdominal exam: Present: soft, normal bowel sounds. Absent: distended, tenderness, guarding, rebound, rigid Extremities exam: Present: normal inspection, full ROM, normal capillary refill. Absent: tenderness, pedal edema, joint swelling, calf tenderness Back exam: Present: normal inspection Neurological exam: Present: alert, oriented X3, CN II-XII intact Psychiatric exam: Present: normal affect, normal mood Skin exam: Present: warm, dry, intact, normal color. Absent: rash Course Vital Signs 11/02/22 11/02/22 11/02/22 00:03 01:35 02:12 Temperature 98.5 F Pulse Rate 94 65 68 Respiratory 20 18 18 Rate Blood Pressure 159/70 167/102 141/68 O2 Sat by Pulse 95 95 95 Oximetry - Reevaluation(s) Reevaluation #1: 11/02/22 00:16 Medical record is reviewed Reevaluation #2: 11/02/22 02:12 A she was having some leg cramping which is now improved Dizziness and room spinning which is also now improved Reevaluation #3: 11/02/22 02:12 Patient informed results and questions answered Reevaluation #4: 11/02/22 00:16 Was pt. sent in by a medical professional or institution (, PA, HEALTH PLAN SPECIALIST, urgent care, hospital, or correction...) When possible be specific @ -no Did you speak to anyone other than the patient for history (EMS, parent, family, police, friend...)? What history was obtained from this source @ -no Did you review nursing and triage notes (agree or disagree)? Why? @ -agree Are old charts reviewed (outside hosp., previous admission, EMS record, old EKG, old radiological studies, urgent care reports/EKG's, correction records)? Report findings @ -yes Differential Diagnosis (chest pain, altered mental status, abdominal pain women, abdominal pain men, vaginal bleeding, weakness, fever, dyspnea, syncope, headache, dizziness, GI bleed, back pain, seizure, CVA, palpatations, mental health, musculoskeletal)? @ -prior EKG interpreted by me (3pts min.). @ -yes X-rays interpreted by me (1pt min.). @ -no CT interpreted by me (1pt min.). @ -no U/S interpreted by me (1pt. min.). @ -no What testing was considered but not performed or refused? (CT, X-rays, U/S, labs)? Why? @ -none What meds were considered but not given or refused? Why? @ -none Did you discuss the management of the patient with other professionals (professionals i.e. DrAlejandra, PA, HEALTH PLAN SPECIALIST, lab, RT, psych nurse, child welfare social worker, balance wheel screw hole driller, teacher, systems support officer, medical case worker)? Give summary @ -no Was smoking cessation discussed for >3mins.? @ -no Was critical care preformed (if so, how long)? @ -no Were there social determinants of health that impacted care today? How? (Homelessness, low income, unemployed, alcoholism, drug addiction, transportation, low edu. Level, literacy, decrease access to med. care, skilled nursing, rehab)? @ -none Was there de-escalation of care discussed even if they declined (Discuss DNR or withdrawal of care, Hospice)? DNR status @ -no What co-morbidities impacted this encounter? (DM, HTN, Smoking, COPD, CAD, Cancer, CVA, ARF, Chemo, Hep., AIDS, mental health diagnosis, sleep apnea, morbid obesity)? @ -none Was patient admitted / discharged? Hospital course, mention meds given and route, prescriptions, significant lab abnormalities, going to OR and other pertinent info. @ - 82 female to the emergency department for evaluation of weakness dizziness elevated blood sugar, also complaining of leg cramping here in the ER which improved with pain medication. Patient feels comfortable resting comfortably and is okay for discharge home Discharge Undiagnosed new problem with uncertain prognosis? @ -no Drug Therapy requiring intensive monitoring for toxicity (Heparin, Nitro, Insulin, Cardizem)? @ -no Were any procedures done? @ -no Diagnosis/symptom? @ -Hyperglycemia Acute, or Chronic, or Acute on Chronic? @ -Acute Uncomplicated (without systemic symptoms) or Complicated (systemic symptoms)? @ -Complicated Side effects of treatment? @ -no Exacerbation, Progression, or Severe Exacerbation? @ -exacerbation Poses a threat to life or bodily function? How? (Chest pain, USA, CO, pneumonia, PE, COPD, DKA, ARF, appy, cholecystitis, CVA, Diverticulitis, Homicidal, Suicidal, threat to staff... and all critical care pts) @ -yes Reevaluation #5: 11/02/22 02:12 Differential Weakness: Hypoglycemia, shock, sepsis, hyponatremia, anemia, infection, CO, ETOH, adverse medicine reaction, overdose, stroke, this is not meant to be an all-inclusive list. Differential Dizziness: Benign paroxysmal positional Vertigo, Menieres disease, otitis media, acoustic neuroma, vertebrobasilar insufficiency, cerebellar stroke, encephalitis, hypovolemic, arrhythmia, coronary artery syndrome, anemia, this is not meant to be an all-inclusive list Medical Decision Making - Medical Decision Making 82 female to the emergency department for evaluation of weakness dizziness elevated blood sugar, also complaining of leg cramping here in the ER which improved with pain medication. Patient feels comfortable resting comfortably and is okay for discharge home - Lab Data Result diagrams: 11/02/22 00:06 11/02/22 00:06 Lab Results 11/02/22 11/02/22 11/02/22 Range/Units 00:00 00:06 00:06 WBC 8.3 (3.8-10.6) k/uL RBC 4.20 (3.80-5.40) m/uL Hgb 11.7 (11.4-16.0) gm/dL Hct 37.1 (34.0-46.0) % MCV 88.4 (80.0-100.0) fL MCH 27.8 (25.0-35.0) pg MCHC 31.5 (31.0-37.0) g/dL RDW 19.6 H (11.5-15.5) % Plt Count 185 (150-450) k/uL MPV 7.7 Neutrophils % 73 % Lymphocytes % 18 % Monocytes % 5 % Eosinophils % 2 % Basophils % 0 % Neutrophils # 6.0 (1.3-7.7) k/uL Lymphocytes # 1.5 (1.0-4.8) k/uL Monocytes # 0.5 (0-1.0) k/uL Eosinophils # 0.1 (0-0.7) k/uL Basophils # 0.0 (0-0.2) k/uL Hypochromasia Moderate Anisocytosis Slight PT 10.7 (9.0-12.0) sec INR 1.0 (<1.2) APTT 22.4 (22.0-30.0) sec Sodium (137-145) mmol/L Potassium (3.5-5.1) mmol/L Chloride (98-107) mmol/L Carbon Dioxide (22-30) mmol/L Anion Gap mmol/L BUN (7-17) mg/dL Creatinine (0.52-1.04) mg/dL Est GFR (CKD-EPI)AfAm (>60 ml/min/1.73 sqM) Est GFR (CKD-EPI)NonAf (>60 ml/min/1.73 sqM) Glucose (74-99) mg/dL POC Glucose (mg/dL) 412 H (70-110) mg/dL POC Glu Shipping Receiving Clerk ID Avila, Tara Calcium (8.4-10.2) mg/dL Phosphorus (2.5-4.5) mg/dL Total Bilirubin (0.2-1.3) mg/dL AST (14-36) U/L ALT (4-34) U/L Alkaline Phosphatase (38-126) U/L Troponin I (0.000-0.034) ng/mL NT-Pro-B Natriuret Pep pg/mL Total Protein (6.3-8.2) g/dL Albumin (3.5-5.0) g/dL Lipase (23-300) U/L Urine Color Urine Appearance (Clear) Urine pH (5.0-8.0) Ur Specific Dexter (1.001-1.035) Urine Protein (Negative) Urine Glucose (UA) (Negative) Urine Ketones (Negative) Urine Blood (Negative) Urine Nitrite (Negative) Urine Bilirubin (Negative) Urine Urobilinogen (<2.0) mg/dL Ur Leukocyte Esterase (Negative) Acetone, Qual (Negative) 11/02/22 11/02/22 11/02/22 Range/Units 00:06 00:06 01:17 WBC (3.8-10.6) k/uL RBC (3.80-5.40) m/uL Hgb (11.4-16.0) gm/dL Hct (34.0-46.0) % MCV (80.0-100.0) fL MCH (25.0-35.0) pg MCHC (31.0-37.0) g/dL RDW (11.5-15.5) % Plt Count (150-450) k/uL MPV Neutrophils % % Lymphocytes % % Monocytes % % Eosinophils % % Basophils % % Neutrophils # (1.3-7.7) k/uL Lymphocytes # (1.0-4.8) k/uL Monocytes # (0-1.0) k/uL Eosinophils # (0-0.7) k/uL Basophils # (0-0.2) k/uL Hypochromasia Anisocytosis PT (9.0-12.0) sec INR (<1.2) APTT (22.0-30.0) sec Sodium 133 L (137-145) mmol/L Potassium 4.2 (3.5-5.1) mmol/L Chloride 90 L (98-107) mmol/L Carbon Dioxide 32 H (22-30) mmol/L Anion Gap 11 mmol/L BUN 38 H (7-17) mg/dL Creatinine 0.85 (0.52-1.04) mg/dL Est GFR (CKD-EPI)AfAm 75 (>60 ml/min/1.73 sqM) Est GFR (CKD-EPI)NonAf 65 (>60 ml/min/1.73 sqM) Glucose 416 H (74-99) mg/dL POC Glucose (mg/dL) (70-110) mg/dL POC Glu Shipping Receiving Clerk ID Calcium 9.5 (8.4-10.2) mg/dL Phosphorus 4.1 (2.5-4.5) mg/dL Total Bilirubin 0.6 (0.2-1.3) mg/dL AST 30 (14-36) U/L ALT 21 (4-34) U/L Alkaline Phosphatase 103 (38-126) U/L Troponin I 0.024 (0.000-0.034) ng/mL NT-Pro-B Natriuret Pep 1130 pg/mL Total Protein 8.8 H (6.3-8.2) g/dL Albumin 4.1 (3.5-5.0) g/dL Lipase 61 (23-300) U/L Urine Color Colorless Urine Appearance Clear (Clear) Urine pH 7.0 (5.0-8.0) Ur Specific Dexter 1.008 (1.001-1.035) Urine Protein Negative (Negative) Urine Glucose (UA) 3+ H (Negative) Urine Ketones Negative (Negative) Urine Blood Negative (Negative) Urine Nitrite Negative (Negative) Urine Bilirubin Negative (Negative) Urine Urobilinogen <2.0 (<2.0) mg/dL Ur Leukocyte Esterase Negative (Negative) Acetone, Qual Negative (Negative) - EKG Data -: EKG Interpreted by Me (EKG is A. fib with 90 QRS 19 QTC 432) Disposition Clinical Impression: Weakness, Hyperglycemia Disposition: HOME SELF-CARE Condition: Fair Instructions (If sedation given, give patient instructions): Weakness (ED), Nondiabetic Hyperglycemia (ED) Is patient prescribed a controlled substance at d/c from ED?: No Referrals: Nicholas Hart MD [Primary Care Provider] - 1-2 days Time of Disposition: 02:10
[2022-11-02 00:33] LABS: Anisocytosis Slight; Basophils % (A) 0 %; Eosinophils # (A) 0.1 k/uL (0-0.7); Eosinophils % (A) 2 %; HCT 37.1 % (34.0-46.0); HGB 11.7 gm/dL (11.4-16.0); Hypochromasia Moderate; Lymphocytes # (A) 1.5 k/uL (1.0-4.8); Lymphocytes % (A) 18 %; MCH 27.8 pg (25.0-35.0); MCHC 31.5 g/dL (31.0-37.0); MCV 88.4 fL (80.0-100.0); Mean Platelet Volume 7.7; Monocytes # (A) 0.5 k/uL (0-1.0); Monocytes % (A) 5 %; Neutrophils % (A) 73 %; Platelet Count 185 k/uL (150-450); RDW 19.6 % (11.5-15.5); WBC 8.3 k/uL (3.8-10.6)
[2022-11-02 00:42] LABS: Partial Thromboplastin Time 22.4 sec (22.0-30.0); Prothrombin Time 10.7 sec (9.0-12.0)
[2022-11-02 01:15] LABS: ALT 21 U/L (4-34); AST 30 U/L (14-36); African American GFR (CKD) 75 (>60 ml/min/1.73 sqM); Albumin 4.1 g/dL (3.5-5.0); Alkaline Phosphatase 103 U/L (38-126); Anion Gap 11 mmol/L; Blood Urea Nitrogen 38 mg/dL (7-17); Calcium 9.5 mg/dL (8.4-10.2); Carbon Dioxide 32 mmol/L (22-30); Chloride 90 mmol/L (98-107); Glucose 416 mg/dL (74-99); Lipase 61 U/L (23-300); Non-African American GFR(CKD) 65 (>60 ml/min/1.73 sqM); Phosphorus 4.1 mg/dL (2.5-4.5); Potassium 4.2 mmol/L (3.5-5.1); Sodium 133 mmol/L (137-145); Total Bilirubin 0.6 mg/dL (0.2-1.3); Total Protein 8.8 g/dL (6.3-8.2)
[2022-11-02 01:22] LABS: NT-Pro-B-Type Natriuretic Pept 1130 pg/mL
[2022-11-02] MEDS ORDERED: MORPHINE SULFATE 2 MG/ML SYRINGE IVP STA (01:22)
[2022-11-02] MEDS ORDERED: LORazepam 2 MG/ML INJ IV STA (01:22)
[2022-11-02 01:32] LABS: Appearance,Urine Clear (Clear); Bilirubin,Urine Negative (Negative); Blood,Urine Negative (Negative); Color,Urine Colorless; Glucose,Urine (UA) 3+ (Negative); Ketones,Urine Negative (Negative); Leukocyte Esterase,Urine Negative (Negative); Nitrite,Urine Negative (Negative); Protein,Urine Negative (Negative); Specific Gravity,Urine 1.008 (1.001-1.035); Urobilinogen,Urine <2.0 mg/dL (<2.0)
[2022-11-02 01:35] VITALS: RESP 18
[2022-11-02 02:13] VITALS: BP 141/68; PULSE 68
== END 2022-11-02 02:54 | disposition home or self-care (01) ==
LOC: EC 23:46
DX: E11.65 Type 2 diabetes mellitus with hyperglycemia (principal); R53.1 Weakness; E03.9 Hypothyroidism, unspecified; E66.01 Morbid (severe) obesity due to excess calories; I10 Essential (primary) hypertension; I25.10 Atherosclerotic heart disease of native coronary artery without angina pectoris; I48.20 Chronic atrial fibrillation, unspecified; M06.9 Rheumatoid arthritis, unspecified; Z87.891 Personal history of nicotine dependence; Z79.4 Long term (current) use of insulin; Z79.84 Long term (current) use of oral hypoglycemic drugs; Z79.890 Hormone replacement therapy; Z68.35 Body mass index [BMI] 35.0-35.9, adult; Z79.01 Long term (current) use of anticoagulants; Z79.899 Other long term (current) drug therapy; Z88.2 Allergy status to sulfonamides; Z88.1 Allergy status to other antibiotic agents; Z91.09 Other allergy status, other than to drugs and biological substances; Z88.8 Allergy status to other drugs, medicaments and biological substances
CPT/HCPCS: 99285; 96374; 96375; 96361; 36415; 93005; 83880; 80053; 82009; 83690; 84100; 84484; 85025; 85610; 85730; 81003; J2060; J2270

== ENCOUNTER → 2022-11-10 | Outpatient (CLI) | payer MEDICARE ==
--- NOTE | 2022-11-10 16:15 | US ---
EXAMINATION TYPE: US arterial LE single level DATE OF EXAM: 11/10/2022 2:37 PM CLINICAL INDICATION: Female, 82 years old with history of E08.622 DM; History of: Smoker: Previous Hypertension: Yes Diabetic: Yes Hyperlipidemia: No TIA/CVA: No Previous Vascular Surgery: Heart cath couple years ago VT: No Vascular Ulcers: Yes Doppler Waveforms: Right: Monophasic Left: Monophasic Right Brachial Pressure: 152 Left Brachial Pressure: 150 Ankle-Brachial Indices: Right: 0.80 Left: 0.64 (Vessel hardening > 1.4; Normal 0.9 - 1.4, Moderate 0.7 - 0.9, Severe 0.5-0.7) Toe Brachial Indices: Right: 0.42 Left: 0.42 IMPRESSION: There is moderate right and severe left peripheral vascular disease.
== END | disposition home or self-care (01) ==
LOC: RADUSWWP 13:36
PROVIDERS: ATTEND Thoracic Surgery (Cardiothoracic Vascular Surgery)
DX: E11.51 Type 2 diabetes mellitus with diabetic peripheral angiopathy without gangrene (principal); I10 Essential (primary) hypertension; Z87.891 Personal history of nicotine dependence
CPT/HCPCS: 93922

== ENCOUNTER 2022-12-15 10:34 | Inpatient (IN) | payer MEDICARE ==
[2022-12-15] MEDS ORDERED: VANCOMYCIN IV PER PHARMACY 1 EACH MISC MISCELLANE PRN (10:44)
[2022-12-15] MEDS ORDERED: ACETAMINOPHEN TAB 500 MG TAB PO STA (10:44)
[2022-12-15] MEDS ORDERED: PIPERACILLIN-TAZOBACTAM 3.375 GM in SODIUM CHLORIDE 0.9% 100 ML IVPB STA (10:44)
[2022-12-15] MEDS ORDERED: IBUPROFEN 600 MG TAB PO STA (10:44)
[2022-12-15] MEDS ORDERED: VANCOMYCIN 1,750 MG in SODIUM CHLORIDE 0.9% 500 ML 500 ML IVPB STA (10:49)
--- NOTE | 2022-12-15 10:51 | ED ---
General Adult HPI - General Chief complaint: Altered Mental Status Stated complaint: AMS Time Seen by Provider: 12/15/22 10:40 Source: patient, RN notes reviewed, old records reviewed Mode of arrival: EMS Limitations: altered mental status, physical limitation - History of Present Illness Initial comments: This is an 82-year-old female who presents to the emergency department because at 5:30 this morning she was found to be altered mentally. Patient has a sore on the lateral left foot when redness going all over The anterior medial aspect of the left leg it is very warm to touch. Patient herself is not contributing to any of the history of his history all received from EMS. There is been no history of the patient any problem breathing she normally is on 2 L of oxygen. According to EMS patient had 103 fever in route. - Related Data Home Medications Medication Instructions Recorded Confirmed Latanoprost [Xalatan 0.005%] 1 drop BOTH EYES HS 08/11/17 09/02/22 predniSONE 5 mg PO DAILY 07/23/21 09/02/22 Magnesium Oxide 400 mg PO DAILY 08/30/21 09/02/22 Calcium Citrate/Vitamin D3 1 tab PO BID@1000,1730 11/16/21 09/02/22 [Citracal + D Maximum Caplet] Digoxin [Lanoxin] 125 mcg PO Q2D@1000 11/16/21 09/02/22 Nitroglycerin Sl Tabs [Nitrostat] 0.4 mg SL Q5M PRN 11/16/21 09/02/22 Adalimumab [Humira(Cf) Pen] 40 mg SQ Q14D 01/09/22 09/02/22 Apixaban [Eliquis] 5 mg PO BID@1000,1730 05/02/22 09/02/22 Gabapentin [Neurontin] 400 mg PO Q6H 05/02/22 09/02/22 INSULIN LISPRO (HumaLOG) [humaLOG] 8 units SQ AC-LUNCH 05/02/22 09/02/22 INSULIN LISPRO (HumaLOG) [humaLOG] See Protocol SQ AC-TID 05/02/22 09/02/22 INSULIN LISPRO (humaLOG) [humaLOG] 4 units SQ AC-SUPPER 05/02/22 09/02/22 Multivit-Min/FA/Lycopen/Lutein 1 tab PO DAILY 05/02/22 09/02/22 [Centrum Silver Tablet] Tolterodine Tartrate [Tolterodine 4 mg PO DAILY 05/02/22 09/02/22 Tartrate ER] metFORMIN HCL [Glucophage] 500 mg PO DAILY@1700 05/02/22 09/02/22 Insulin Glargine [Lantus Vial] 20 unit SQ HS 05/17/22 09/02/22 Insulin Glargine [Lantus Vial] 25 unit SQ DAILY@0700 05/17/22 09/02/22 SILVER sulfADIAZINE Cream 1 applic TOPICAL BID PRN 06/28/22 09/02/22 [Silvadene 1% Cream] Tamsulosin [Flomax] 0.4 mg PO DAILY@1200 06/28/22 09/02/22 Bumetanide [BUMEX] 1 - 2 mg PO DAILY PRN 09/02/22 09/02/22 HYDROcodone/APAP 10-325MG [[place] 1 tab PO Q6H 09/02/22 09/02/22 10-325] Levothyroxine Sodium [Synthroid] 150 mcg PO HS 09/02/22 09/02/22 methocarbamoL [Robaxin-750] 750 mg PO TID 09/02/22 09/02/22 Previous Rx's Medication Instructions Recorded Acetaminophen Tab [Tylenol] 650 mg PO Q6HR PRN tab 05/20/22 Loratadine [Claritin] 10 mg PO DAILY #30 tab 05/20/22 Linezolid [Zyvox] 600 mg PO Q12H #20 tab 09/05/22 Allergies Allergy/AdvReac Type Severity Reaction Status Date / Time adhesive Allergy Rash/Hives Verified 12/15/22 13:13 cephalexin [From Keflex] Allergy Rash/Hives Verified 12/15/22 13:13 grass pollen Allergy Unknown Verified 12/15/22 13:13 mold Allergy Unknown Verified 12/15/22 13:13 Sulfa (Sulfonamide Allergy Rash/Hives Verified 12/15/22 13:13 Antibiotics) newspaper ink Allergy Mild Unknown Uncoded 12/15/22 13:13 Review of Systems ROS Statement: Those systems with pertinent positive or pertinent negative responses have been documented in the HPI. ROS Other: All systems not noted in ROS Statement are negative. Past Medical History Past Medical History: Atrial Fibrillation, Coronary Artery Disease (CAD), Cancer, Diabetes Mellitus, Hyperlipidemia, Hypertension, Musculoskeletal Disorder, Neurologic Disorder, Osteoarthritis (OA), Pneumonia, Renal Disease, Rheumatoid Arthritis (RA), Skin Disorder, Thyroid Disorder Additional Past Medical History / Comment(s): Morbid obesity, chronic atrial fibrillation, diabetes mellitus type 2, hypertension, hyperlipidemia, spinal stenosis, osteoarthritis, hypothyroidism, hypertension, history of skin anne anoma, history of bursitis with MRSA post I&D, rheumatoid arthritis, Sjogren's disease, 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 without any indication of ILD related to RA, Fall on July 22 transfer to [facility] for [facility], then Fall on 11/16/21 History of Any Multi-Drug Resistant Organisms: MRSA Date of last positivie culture/infection: 09/02/22 MDRO Source:: Right Leg Past Surgical History: Back Surgery, Breast Surgery, Cholecystectomy, Heart Catheterization, Joint Replacement, Orthopedic Surgery Additional Past Surgical History / Comment(s): Bilateral cataracts with lens implants, arthroscopies to lt wrist, gualberto knees, gualberto ankles, gualberto hips, lt hip replacment and redone, L/R shoulder sxs, rt breast bx-benign, egd/colonoscopy, skin cancer removal L arm, Lumbar fixnation possible broken Past Anesthesia/Blood Transfusion Reactions: No Reported Reaction Additional Past Anesthesia/Blood Transfusion Reaction / Comment(s): Pt has been told not to have anesthesia metabolized by the kidneys and has neurologic Sjogren's with post anesthesia paralysis. Past Psychological History: No Psychological Hx Reported Smoking Status: Former smoker Past Alcohol Use History: None Reported Past Drug Use History: None Reported - Past Family History Mother Family Medical History: CVA/TIA Additional Family Medical History / Comment(s): RUPTURED BOWEL Father Family Medical History: Cancer, Pneumonia Additional Family Medical History / Comment(s): ASPIRATIVE PNA Sister(s) Additional Family Medical History / Comment(s): at age 34 with lupus General Exam - General Exam Comments Initial Comments: GENERAL: Patient is well-developed and well-nourished. Patient is nontoxic and well-hydrated and is in mild distress. ENT: Neck is soft and supple. No significant lymphadenopathy is noted. Oropharynx is clear. Moist mucous membranes. Neck has full range of motion without eliciting any pain. EYES: The sclera were anicteric and conjunctiva were pink and moist. Extraocular movements were intact and pupils were equal round and reactive to light. Eyelids were unremarkable. PULMONARY: Patient has diminished breath sounds but her effort is poor. CARDIOVASCULAR: There is a regular rate and rhythm without any murmurs gallops or rubs. ABDOMEN: Soft and nontender with normal bowel sounds. SKIN: Skin is clear with no lesions or rashes and otherwise unremarkable. NEUROLOGIC: Patient is alert and oriented x3. Cranial nerves II through XII are grossly intact. Motor and sensory are also intact. Normal speech, volume and content. Symmetrical smile. MUSCULOSKELETAL: Patient has erythema from the left foot up the leg to the mid thigh on the anterior medial aspect it is also warm to touch. LYMPHATICS: No significant lymphadenopathy is noted PSYCHIATRIC: Normal psychiatric evaluation. Limitations: altered mental status, physical limitation Course Vital Signs 12/15/22 12/15/22 10:38 11:30 Temperature 101.3 F H Pulse Rate 150 H 96 Respiratory 20 Rate Blood Pressure 121/52 O2 Sat by Pulse 88 L 94 L Oximetry Medical Decision Making - Medical Decision Making EKG is interpreted by myself. He G shows atrial fibrillation at a rate of 105 bpm patient has a right bundle branch block. Patient has QRS 102 QT interval 331 QTC is 392. Patient has some ST segment depression in the cortical leads V4 through V6 as well as inferiorly Patient is ideal body weight is 70 kg Was pt. sent in by a medical professional or institution (YEIMI Rivera, TRANSFILL TECHNICIAN, urgent care, hospital, or fpc...) When possible be specific @ No Did you speak to anyone other than the patient for history (EMS, parent, family, police, friend...)? What history was obtained from this source @ -No Did you review nursing and triage notes (agree or disagree)? Why? @ -I reviewed and agree with nursing and triage notes Were old charts reviewed (outside hosp., previous admission, EMS record, old EKG, old radiological studies, urgent care reports/EKG's, fpc records)? Report findings @ -I reviewed prior charts in prior labwork on this patient Differential Diagnosis (chest pain, altered mental status, abdominal pain women, abdominal pain men, vaginal bleeding, weakness, fever, dyspnea, syncope, headache, dizziness, GI bleed, back pain, seizure, CVA, palpatations, mental health, musculoskeletal)? @ -Differential Fever: Pneumonia, viral URI, endocarditis, myocarditis, pericarditis, otitis, sinusitis, peritonsillar Abscess, retropharyngeal Abscess, epiglottitis, peritonitis, appendicitis, Pascale cystitis, diverticulitis, hepatitis, colitis, UTI, PID, TOA, pyelonephritis, prostatitis, epididymitis, meningitis, encephalitis, pulmonary embolism, CVA, thyroid storm, pancreatitis, adrenal crisis, cavernous sinus thrombosis, this is not meant to be an all-inclusive list. EKG interpreted by me (3pts min.). @ -As above X-rays interpreted by me (1pt min.). @ -Patient's foot x-ray shows no subcu air or signs of osteomyelitis CT interpreted by me (1pt min.). @ -None done U/S interpreted by me (1pt. min.). @ -None done What testing was considered but not performed or refused? (CT, X-rays, U/S, labs)? Why? @ -None What meds were considered but not given or refused? Why? @ -None Did you discuss the management of the patient with other professionals (professionals i.e. , PA, TRANSFILL TECHNICIAN, lab, RT, psych nurse, social media assistant, grinding mill operator, teacher, media liaison officer, catalytic case operator)? Give summary @ -I spoke with [facility] agreed to admit the patient Was smoking cessation discussed for >3mins.? @ -No Was critical care preformed (if so, how long)? @ -No Were there social determinants of health that impacted care today? How? (Homelessness, low income, unemployed, alcoholism, drug addiction, transportation, low edu. Level, literacy, decrease access to med. care, penitentiary, rehab)? @ -No Was there de-escalation of care discussed even if they declined (Discuss DNR or withdrawal of care, Hospice)? DNR status @ -No What co-morbidities impacted this encounter? (DM, HTN, Smoking, COPD, CAD, Cancer, CVA, ARF, Chemo, Hep., AIDS, mental health diagnosis, sleep apnea, morbid obesity)? @ -None Was patient admitted / discharged? Hospital course, mention meds given and route, prescriptions, significant lab abnormalities, going to OR and other pe rtinent info. @ -Patient has cellulitis of the left leg. Patient was started on Zosyn and vancomycin. Patient will be admitted to the hospital to [facility] and I will consult Dr. Monsivais. Patient's troponin was also elevated and I will repeat troponin. Undiagnosed new problem with uncertain prognosis? @ -No Drug Therapy requiring intensive monitoring for toxicity (Heparin, Nitro, Insulin, Cardizem)? @ -No Were any procedures done? @ -No Diagnosis/symptom? @ -Cellulitis leg Acute, or Chronic, or Acute on Chronic? @ -Acute Uncomplicated (without systemic symptoms) or Complicated (systemic symptoms)? @ -Complicated Side effects of treatment? @ -No Exacerbation, Progression, or Severe Exacerbation? @ -No Poses a threat to life or bodily function? How? (Chest pain, USA, DC, pneumonia, PE, COPD, DKA, ARF, appy, cholecystitis, CVA, Diverticulitis, Homicidal, Suicidal, threat to staff... and all critical care pts) @ -ES this could lead to sepsis and end organ dysfunction Diagnosis/symptom? @ -Elevated troponin Acute, or Chronic, or Acute on Chronic? @ -Acute Uncomplicated (without systemic symptoms) or Complicated (systemic symptoms)? @ -Complicated Side effects of treatment? @ -none Exacerbation, Progression, or Severe Exacerbation] @ -no Poses a threat to life or bodily function? @ -no Diagnosis/symptom? @ -Hypokalemia Acute, or Chronic, or Acute on Chronic? @ -Acute Uncomplicated (without systemic symptoms) or Complicated (systemic symptoms)? @ -Uncomplicated Side effects of treatment? @ -none Exacerbation, Progression, or Severe Exacerbation] @ -no Poses a threat to life or bodily function? @ -no - Lab Data Result diagrams: 12/15/22 11:12 12/15/22 11:12 Lab Results 12/15/22 12/15/22 12/15/22 Range/Units 11:07 11:12 11:12 WBC 12.3 H (3.8-10.6) k/uL RBC 5.01 (3.80-5.40) m/uL Hgb 14.9 (11.4-16.0) gm/dL Hct 45.3 (34.0-46.0) % MCV 90.6 (80.0-100.0) fL MCH 29.7 (25.0-35.0) pg MCHC 32.8 (31.0-37.0) g/dL RDW 19.1 H (11.5-15.5) % Plt Count 196 (150-450) k/uL MPV 7.3 Neutrophils % 81 % Lymphocytes % 14 % Monocytes % 4 % Eosinophils % 1 % Basophils % 0 % Neutrophils # 9.9 H (1.3-7.7) k/uL Lymphocytes # 1.7 (1.0-4.8) k/uL Monocytes # 0.4 (0-1.0) k/uL Eosinophils # 0.1 (0-0.7) k/uL Basophils # 0.0 (0-0.2) k/uL Anisocytosis Slight PT (10.0-12.5) sec INR (<1.2) APTT (22.0-30.0) sec Sodium (137-145) mmol/L Potassium (3.5-5.1) mmol/L Chloride (98-107) mmol/L Carbon Dioxide (22-30) mmol/L Anion Gap mmol/L BUN (7-17) mg/dL Creatinine (0.52-1.04) mg/dL Est GFR (CKD-EPI)AfAm (>60 ml/min/1.73 sqM) Est GFR (CKD-EPI)NonAf (>60 ml/min/1.73 sqM) Glucose (74-99) mg/dL POC Glucose (mg/dL) 195 H (70-110) mg/dL POC Glu Net Sql Developer ID Renzo [email or web address] Plasma Lactic Acid Cj (0.7-2.0) mmol/L Calcium (8.4-10.2) mg/dL Total Bilirubin (0.2-1.3) mg/dL AST (14-36) U/L ALT (4-34) U/L Alkaline Phosphatase (38-126) U/L Troponin I (0.000-0.034) ng/mL Total Protein (6.3-8.2) g/dL Albumin (3.5-5.0) g/dL Urine Color Urine Appearance (Clear) Urine pH (5.0-8.0) Ur Specific [place] (1.001-1.035) Urine Protein (Negative) Urine Glucose (UA) (Negative) Urine Ketones (Negative) Urine Blood (Negative) Urine Nitrite (Negative) Urine Bilirubin (Negative) Urine Urobilinogen (<2.0) mg/dL Ur Leukocyte Esterase (Negative) Influenza Type A (PCR) Not Detected (Not Detectd) Influenza Type B (PCR) Not Detected (Not Detectd) RSV (PCR) Not Detected (Not Detectd) SARS-CoV-2 (PCR) Not Detected (Not Detectd) 12/15/22 12/15/22 12/15/22 Range/Units 11:12 11:12 11:12 WBC (3.8-10.6) k/uL RBC (3.80-5.40) m/uL Hgb (11.4-16.0) gm/dL Hct (34.0-46.0) % MCV (80.0-100.0) fL MCH (25.0-35.0) pg MCHC (31.0-37.0) g/dL RDW (11.5-15.5) % Plt Count (150-450) k/uL MPV Neutrophils % % Lymphocytes % % Monocytes % % Eosinophils % % Basophils % % Neutrophils # (1.3-7.7) k/uL Lymphocytes # (1.0-4.8) k/uL Monocytes # (0-1.0) k/uL Eosinophils # (0-0.7) k/uL Basophils # (0-0.2) k/uL Anisocytosis PT 10.9 (10.0-12.5) sec INR 1.0 (<1.2) APTT 21.5 L (22.0-30.0) sec Sodium 133 L (137-145) mmol/L Potassium 3.2 L (3.5-5.1) mmol/L Chloride 85 L (98-107) mmol/L Carbon Dioxide 38 H (22-30) mmol/L Anion Gap 10 mmol/L BUN 40 H (7-17) mg/dL Creatinine 0.89 (0.52-1.04) mg/dL Est GFR (CKD-EPI)AfAm 70 (>60 ml/min/1.73 sqM) Est GFR (CKD-EPI)NonAf 61 (>60 ml/min/1.73 sqM) Glucose 189 H (74-99) mg/dL POC Glucose (mg/dL) (70-110) mg/dL POC Glu Net Sql Developer ID Plasma Lactic Acid Cj (0.7-2.0) mmol/L Calcium 10.5 H (8.4-10.2) mg/dL Total Bilirubin 0.9 (0.2-1.3) mg/dL AST 46 H (14-36) U/L ALT 35 H (4-34) U/L Alkaline Phosphatase 80 (38-126) U/L Troponin I (0.000-0.034) ng/mL Total Protein 7.7 (6.3-8.2) g/dL Albumin 3.9 (3.5-5.0) g/dL Urine Color Yellow Urine Appearance Clear (Clear) Urine pH 5.5 (5.0-8.0) Ur Specific [place] 1.019 (1.001-1.035) Urine Protein Negative (Negative) Urine Glucose (UA) Negative (Negative) Urine Ketones Negative (Negative) Urine Blood Negative (Negative) Urine Nitrite Negative (Negative) Urine Bilirubin Negative (Negative) Urine Urobilinogen <2.0 (<2.0) mg/dL Ur Leukocyte Esterase Negative (Negative) Influenza Type A (PCR) (Not Detectd) Influenza Type B (PCR) (Not Detectd) RSV (PCR) (Not Detectd) SARS-CoV-2 (PCR) (Not Detectd) 12/15/22 12/15/22 Range/Units 11:12 11:12 WBC (3.8-10.6) k/uL RBC (3.80-5.40) m/uL Hgb (11.4-16.0) gm/dL Hct (34.0-46.0) % MCV (80.0-100.0) fL MCH (25.0-35.0) pg MCHC (31.0-37.0) g/dL RDW (11.5-15.5) % Plt Count (150-450) k/uL MPV Neutrophils % % Lymphocytes % % Monocytes % % Eosinophils % % Basophils % % Neutrophils # (1.3-7.7) k/uL Lymphocytes # (1.0-4.8) k/uL Monocytes # (0-1.0) k/uL Eosinophils # (0-0.7) k/uL Basophils # (0-0.2) k/uL Anisocytosis PT (10.0-12.5) sec INR (<1.2) APTT (22.0-30.0) sec Sodium (137-145) mmol/L Potassium (3.5-5.1) mmol/L Chloride (98-107) mmol/L Carbon Dioxide (22-30) mmol/L Anion Gap mmol/L BUN (7-17) mg/dL Creatinine (0.52-1.04) mg/dL Est GFR (CKD-EPI)AfAm (>60 ml/min/1.73 sqM) Est GFR (CKD-EPI)NonAf (>60 ml/min/1.73 sqM) Glucose (74-99) mg/dL POC Glucose (mg/dL) (70-110) mg/dL POC Glu Net Sql Developer ID Plasma Lactic Acid Cj 2.6 H* (0.7-2.0) mmol/L Calcium (8.4-10.2) mg/dL Total Bilirubin (0.2-1.3) mg/dL AST (14-36) U/L ALT (4-34) U/L Alkaline Phosphatase (38-126) U/L Troponin I 0.116 H* (0.000-0.034) ng/mL Total Protein (6.3-8.2) g/dL Albumin (3.5-5.0) g/dL Urine Color Urine Appearance (Clear) Urine pH (5.0-8.0) Ur Specific [place] (1.001-1.035) Urine Protein (Negative) Urine Glucose (UA) (Negative) Urine Ketones (Negative) Urine Blood (Negative) Urine Nitrite (Negative) Urine Bilirubin (Negative) Urine Urobilinogen (<2.0) mg/dL Ur Leukocyte Esterase (Negative) Influenza Type A (PCR) (Not Detectd) Influenza Type B (PCR) (Not Detectd) RSV (PCR) (Not Detectd) SARS-CoV-2 (PCR) (Not Detectd) Disposition Clinical Impression: Hypokalemia, Elevated troponin, Cellulitis, leg, Sepsis Disposition: ADMITTED IP TO THIS HOSP Referrals: Nicholas Hart MD [Primary Care Provider] - 1-2 days Time of Disposition: 13:29
[2022-12-15 11:10] LABS: Glucose,Whole Blood 195 mg/dL (70-110)
[2022-12-15] MEDS: SODIUM CHLORIDE 0.9% 500 ML 500 ML IV SCH ×3 (11:17→13:42)
[2022-12-15 11:35] LABS: Anisocytosis Slight; Basophils % (A) 0 %; Eosinophils # (A) 0.1 k/uL (0-0.7); Eosinophils % (A) 1 %; HCT 45.3 % (34.0-46.0); HGB 14.9 gm/dL (11.4-16.0); Lymphocytes # (A) 1.7 k/uL (1.0-4.8); Lymphocytes % (A) 14 %; MCH 29.7 pg (25.0-35.0); MCHC 32.8 g/dL (31.0-37.0); MCV 90.6 fL (80.0-100.0); Mean Platelet Volume 7.3; Monocytes # (A) 0.4 k/uL (0-1.0); Monocytes % (A) 4 %; Neutrophils # (A) 9.9 k/uL (1.3-7.7); Neutrophils % (A) 81 %; Platelet Count 196 k/uL (150-450); RBC 5.01 m/uL (3.80-5.40); RDW 19.1 % (11.5-15.5); WBC 12.3 k/uL (3.8-10.6)
[2022-12-15 11:53] LABS: Partial Thromboplastin Time 21.5 sec (22.0-30.0); Prothrombin Time 10.9 sec (10.0-12.5)
[2022-12-15 11:55] LABS: ALT 35 U/L (4-34); AST 46 U/L (14-36); African American GFR (CKD) 70 (>60 ml/min/1.73 sqM); Albumin 3.9 g/dL (3.5-5.0); Alkaline Phosphatase 80 U/L (38-126); Anion Gap 10 mmol/L; Blood Urea Nitrogen 40 mg/dL (7-17); Calcium 10.5 mg/dL (8.4-10.2); Carbon Dioxide 38 mmol/L (22-30); Chloride 85 mmol/L (98-107); Glucose 189 mg/dL (74-99); Non-African American GFR(CKD) 61 (>60 ml/min/1.73 sqM); Potassium 3.2 mmol/L (3.5-5.1); Sodium 133 mmol/L (137-145); Total Bilirubin 0.9 mg/dL (0.2-1.3); Total Protein 7.7 g/dL (6.3-8.2)
[2022-12-15 12:22] LABS: Appearance,Urine Clear (Clear); Bilirubin,Urine Negative (Negative); Blood,Urine Negative (Negative); Color,Urine Yellow; Glucose,Urine (UA) Negative (Negative); Ketones,Urine Negative (Negative); Leukocyte Esterase,Urine Negative (Negative); Nitrite,Urine Negative (Negative); PH, Urine 5.5 (5.0-8.0); Protein,Urine Negative (Negative); Specific Gravity,Urine 1.019 (1.001-1.035); Urobilinogen,Urine <2.0 mg/dL (<2.0)
--- NOTE | 2022-12-15 12:43 | XR ---
EXAMINATION TYPE: XR foot complete LT DATE OF EXAM: 12/15/2022 12:33 PM CLINICAL INDICATION:Female, 82 years old with history of Osteomyelitis; [facility] COMPARISON: None TECHNIQUE: XR foot complete LT examined in the AP, oblique, and lateral projections. FINDINGS: No evidence of any acute osseous pathology. Soft tissue swelling most proximal dorsal aspect of the foot.. Joints are preserved. Calcaneal plantar spurring. Multifocal degeneration with joint space tea ring osteophyte formation throughout the joints of the foot. No evidence for osseous erosion. IMPRESSION: Diffuse dorsal swelling of the foot without evidence of fracture. No evidence for osseous erosion.
[2022-12-15] MEDS ORDERED: KETOROLAC 15 MG/ML 1 ML VIAL IVP STA (13:20)
[2022-12-15] MEDS ORDERED: MORPHINE SULFATE 2 MG/ML SYRINGE IVP STA (13:21)
[2022-12-15] MEDS: SODIUM CHLORIDE 0.9% 1,000 ML IV ONE ×2 (13:41→15:25)
[2022-12-15] MEDS ORDERED: POTASSIUM CHLORIDE ER 20 MEQ TAB.ER PO STA (13:42)
[2022-12-15] MEDS ORDERED: DEXTROSE 50% SYRINGE 50 ML IVP PRN ×2 (14:14)
--- NOTE | 2022-12-15 14:20 | P.HPIM ---
History of Present Illness H&P Date: 12/15/22 History of present illness; patient is 82-year-old lady with past medical histo ry significant for atrial fibrillation, CHF, diabetes mellitus presented to the ER because of altered mental status. Patient was all right this morning when she was found to be confused by family. Patient was complaining of pain in her left foot, her left leg was red, redness was extending all the way up to the back of her knee. There is no swelling of the knee. No history of recent fall. No complaint of fever or chills at home. No loss of appetite. No nausea, vomiting abdominal pain. No chest pain or shortness of breath. Because of this confusion, patient was brought to the ER Initial lab work done in the ER showed WBC 12.2, hemoglobin 14.9, platelet count 196, sodium 133, potassium 3.2, BUN 40, creatinine 0.89, glucose 189, lactate 2.6, troponin 0.116 UA negative for infection Influenza a drug-related Influenza B not detected RSV not detected Covid 19 not detected EKG done in the ER heart rate of 105, no P waves seen, ST segment depression noticeable in V5, V6, no ST segment elevation noticeable X-ray of left foot done showed diffuse swelling of left foot without evidence of any fracture Patient was admitted to medicine service REVIEW OF SYSTEMS: CONSTITUTIONAL: No fever, no malaise, no fatigue. HEENT: No recent visual problems or hearing problems. Denied any sore throat. CARDIOVASCULAR: No chest pain, orthopnea, PND, no palpitations, no syncope. PULMONARY: No shortness of breath, no cough, no hemoptysis. GASTROINTESTINAL: No diarrhea, no nausea, no vomiting, no abdominal pain. NEUROLOGICAL: No headaches, no weakness, no numbness. HEMATOLOGICAL: Denies any bleeding or petechiae. GENITOURINARY: Denies any burning micturition, frequency, or urgency. MUSCULOSKELETAL/RHEUMATOLOGICAL: Denies any joint pain, swelling, or any muscle pain. ENDOCRINE: Denies any polyuria or polydipsia. The rest of the 14-point review of systems is negative. PHYSICAL EXAMINATION: GENERAL: The patient is alert and oriented x2, not in any acute distress. Well developed, well nourished. HEENT: Pupils are round and equally reacting to light. EOMI. No scleral icterus. No conjunctival pallor. Normocephalic, atraumatic. No pharyngeal erythema. No thyromegaly. CARDIOVASCULAR: S1 and S2 present. No murmurs, rubs, or gallops. PULMONARY: Chest is clear to auscultation, no wheezing or crackles. ABDOMEN: Soft, nontender, nondistended, normoactive bowel sounds. No palpable organomegaly. MUSCULOSKELETAL: No joint swelling or deformity. EXTREMITIES: Left lower extremity erythema noticeable involving the calf and back of the knee NEUROLOGICAL: Gross neurological examination did not reveal any focal deficits. SKIN: No rashes. Assessment and plan Sepsis Acute infectious encephalopathy Left lower extremity cellulitis Lactic acidosis Elevated troponin Insulin-dependent diabetes mellitus Diabetic peripheral neuropathy Hypothyroidism Atrial fibrillation Chronic CHF History of gout Pulmonary hypertension History of MRSA infection Monitor vital signs Monitor CBC Monitor CMP Continue telemetry monitoring Follow-up on blood cultures Continue IV Zosyn and vancomycin Continue IV fluids Trend troponins. Consult ID Consult cardiology Resume home meds Labs and medication were reviewed.. Continue same treatment. Continue with sy mptomatic treatment. Resume home medication. Monitor labs and vitals. DVT and GI prophylaxis. Further recommendations as per clinical course of the patient Dictation was produced using [employer] dictation software. please excuse any grammatical, word or spelling errors. Past Medical History Past Medical History: Atrial Fibrillation, Coronary Artery Disease (CAD), Cancer, Diabetes Mellitus, Hyperlipidemia, Hypertension, Musculoskeletal Disor rosana, Neurologic Disorder, Osteoarthritis (OA), Pneumonia, Renal Disease, Rheumatoid Arthritis (RA), Skin Disorder, Thyroid Disorder Additional Past Medical History / Comment(s): Morbid obesity, chronic atrial fibrillation, diabetes mellitus type 2, hypertension, hyperlipidemia, spinal stenosis, osteoarthritis, hypothyroidism, hypertension, history of skin melanoma, history of bursitis with MRSA post I&D, rheumatoid arthritis, Sjogren's disease, 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 without any indication of ILD related to RA, Fall on July 22 transfer to [facility] for MRI, then Fall on 11/16/21 History of Any Multi-Drug Resistant Organisms: MRSA Date of last positivie culture/infection: 09/02/22 MDRO Source:: Right Leg Past Surgical History: Back Surgery, Breast Surgery, Cholecystectomy, Heart Catheterization, Joint Replacement, Orthopedic Surgery Additional Past Surgical History / Comment(s): Bilateral cataracts with lens implants, arthroscopies to lt wrist, gualberto knees, gualberto ankles, gualberto hips, lt hip replacment and redone, L/R shoulder sxs, rt breast bx-benign, egd/colonoscopy, skin cancer removal L arm, Lumbar fixnation possible broken Past Anesthesia/Blood Transfusion Reactions: No Reported Reaction Additional Past Anesthesia/Blood Transfusion Reaction / Comment(s): Pt has been told not to have anesthesia metabolized by the kidneys and has neurologic Sjogren's with post anesthesia paralysis. Past Psychological History: No Psychological Hx Reported Smoking Status: Former smoker Past Alcohol Use History: None Reported Past Drug Use History: None Reported - Past Family History Mother Family Medical History: CVA/TIA Additional Family Medical History / Comment(s): RUPTURED BOWEL Father Family Medical History: Cancer, Pneumonia Additional Family Medical History / Comment(s): ASPIRATIVE PNA Sister(s) Additional Family Medical History / Comment(s): at age 34 with lupus Medications and Allergies Home Medications Medication Instructions Recorded Confirmed Type RX: Latanoprost [Xalatan 0.005%] 1 drop BOTH EYES HS 08/11/17 12/15/22 History RX: predniSONE 10 mg PO DAILY 07/23/21 12/15/22 History RX: Magnesium Oxide 400 mg PO DAILY 08/30/21 12/15/22 History RX: Calcium Citrate/Vitamin D3 1 tab PO BID@0900,1800 11/16/21 12/15/22 History [Citracal + D Maximum Caplet] RX: Digoxin [Lanoxin] 125 mcg PO Q2D 11/16/21 12/15/22 History RX: Nitroglycerin Sl Tabs 0.4 mg SL Q5M PRN 11/16/21 12/15/22 History [Nitrostat] RX: Adalimumab [Humira(Cf) Pen] 40 mg SQ Q14D 01/09/22 12/15/22 History RX: Apixaban [Eliquis] 5 mg PO BID@0900,1800 05/02/22 12/15/22 History RX: Gabapentin [Neurontin] 400 mg PO Q6H 05/02/22 12/15/22 History RX: INSULIN LISPRO (HumaLOG) 8 units SQ AC-LUNCH 05/02/22 12/15/22 History [humaLOG] RX: INSULIN LISPRO (HumaLOG) See Protocol SQ AC-TID 05/02/22 12/15/22 History [humaLOG] RX: INSULIN LISPRO (humaLOG) 8 units SQ AC-SUPPER 05/02/22 12/15/22 History [humaLOG] RX: Multivit-Min/FA/Lycopen/Lutein 1 tab PO DAILY 05/02/22 12/15/22 History [Centrum Silver Tablet] RX: metFORMIN HCL [Glucophage] 500 mg PO DAILY@1800 05/02/22 12/15/22 History RX: Insulin Glargine [Lantus Vial] 30 unit SQ BID 05/17/22 12/15/22 History RX: Acetaminophen Tab [Tylenol] 650 mg PO Q6HR PRN tab 05/20/22 12/15/22 Rx RX: Loratadine [Claritin] 10 mg PO DAILY #30 tab 05/20/22 12/15/22 Rx RX: SILVER sulfADIAZINE Cream 1 applic TOPICAL BID PRN 06/28/22 12/15/22 History [Silvadene 1% Cream] RX: Tamsulosin [Flomax] 0.4 mg PO DAILY@1800 06/28/22 12/15/22 History RX: Bumetanide [BUMEX] 1 mg PO BID@0900,1800 09/02/22 12/15/22 History RX: HYDROcodone/APAP 10-325MG 1 tab PO Q6H 09/02/22 12/15/22 History [[place] 10-325] RX: Levothyroxine Sodium 150 mcg PO HS@0000 09/02/22 12/15/22 History [Synthroid] RX: methocarbamoL [Robaxin-750] 750 mg PO DAILY@0000 09/02/22 12/15/22 History INSULIN LISPRO (HumaLOG) [humaLOG] 4 units SQ AC-BRKFST 12/15/22 12/15/22 History metOLazone [Zaroxolyn] 2.5 mg PO TUTH 12/15/22 12/15/22 History oxyBUTYnin chloride [Ditropan] 5 mg PO BID@0900,1800 12/15/22 12/15/22 History traZODone HCL [Desyrel] 50 mg PO HS@0000 12/15/22 12/15/22 History Allergies Allergy/AdvReac Type Severity Reaction Status Date / Time adhesive Allergy Rash/Hives Verified 12/15/22 13:13 cephalexin [From Keflex] Allergy Rash/Hives Verified 12/15/22 13:13 grass pollen Allergy Unknown Verified 12/15/22 13:13 mold Allergy Unknown Verified 12/15/22 13:13 Sulfa (Sulfonamide Allergy Rash/Hives Verified 12/15/22 13:13 Antibiotics) newspaper ink Allergy Mild Unknown Uncoded 12/15/22 13:13 Physical Exam Vitals: Vital Signs Temp Pulse Resp BP Pulse Ox 12/15/22 11:30 96 94 L 12/15/22 10:38 101.3 F H 150 H 20 121/52 88 L Intake and Output 12/14/22 12/15/22 12/15/22 22:59 06:59 14:59 Other: Weight 113.398 kg Results CBC & Chem 7: 12/15/22 11:12 12/15/22 11:12 Labs: Abnormal Lab Results - Last 24 Hours (Table) 12/15/22 12/15/22 12/15/22 Range/Units 11:07 11:12 11:12 WBC 12.3 H (3.8-10.6) k/uL RDW 19.1 H (11.5-15.5) % Neutrophils # 9.9 H (1.3-7.7) k/uL APTT 21.5 L (22.0-30.0) sec Sodium (137-145) mmol/L Potassium (3.5-5.1) mmol/L Chloride (98-107) mmol/L Carbon Dioxide (22-30) mmol/L BUN (7-17) mg/dL Glucose (74-99) mg/dL POC Glucose (mg/dL) 195 H (70-110) mg/dL Plasma Lactic Acid Cj (0.7-2.0) mmol/L Calcium (8.4-10.2) mg/dL AST (14-36) U/L ALT (4-34) U/L Troponin I (0.000-0.034) ng/mL 12/15/22 12/15/22 12/15/22 Range/Units 11:12 11:12 11:12 WBC (3.8-10.6) k/uL RDW (11.5-15.5) % Neutrophils # (1.3-7.7) k/uL APTT (22.0-30.0) sec Sodium 133 L (137-145) mmol/L Potassium 3.2 L (3.5-5.1) mmol/L Chloride 85 L (98-107) mmol/L Carbon Dioxide 38 H (22-30) mmol/L BUN 40 H (7-17) mg/dL Glucose 189 H (74-99) mg/dL POC Glucose (mg/dL) (70-110) mg/dL Plasma Lactic Acid Cj 2.6 H* (0.7-2.0) mmol/L Calcium 10.5 H (8.4-10.2) mg/dL AST 46 H (14-36) U/L ALT 35 H (4-34) U/L Troponin I 0.116 H* (0.000-0.034) ng/mL
--- NOTE | 2022-12-15 15:18 | P.CRDCN ---
History of Present Illness History of present illness: HISTORY OF PRESENT ILLNESS: This is a 82-year-old female with a past medical history significant for hypertension, hyperlipidemia, diabetes, nonischemic cardiomyopathy, permanent atrial fibrillation and intermediate coronary artery disease. Patient follows in the office with Dr. George. We have been asked to see the patient in consultation for elevated troponin. Patient examined at the bedside in the emergency room. Patient is somewhat confused at the time of examination. She apparently was brought to the hospital after she was found to be confused. She is admitted to the hospital with a diagnosis of lower extremity cellulitis. According to ER documentation, the patient was febrile with a temperature of 103 [address] route to the hospital. Patient was also A. fib with RVR upon arrival. Bedside telemetry in the emergency room reveals atrial fibrillation with a heart rate in the 70s. Patient currently denies chest pain or pressure. She denies shortness of breath. Vital signs are stable. * EKG reveals A. fib with RVR * Current home cardiac medications include Zaroxolyn 2.5 mg Monday and , Bumex 1 mg twice a day, digoxin 125 g every 2 days, Eliquis 5 mg twice a day * Most recent echocardiogram obtained in April 2022 revealed ejection fraction 45-50% * Cardiac catheterization history: August 2017 revealing intermediate disease involving the mid circumflex REVIEW OF SYSTEMS: At the time of my exam: CONSTITUTIONAL: Denies fever or chills. HEENT: Denies blurred vision, vision changes, or eye pain. Denies hemoptysis CARDIOVASCULAR: Denies chest pain. Denies orthopnea. Denies PND. Denies palpitations RESPIRATORY: Denies shortness of breath. GASTROINTESTINAL: Denies abdominal pain. Denies nausea or vomiting. HEMATOLOGIC: Denies bleeding disorders. GENITOURINARY: Denies any blood in urine. SKIN: Denies pruitis. Denies rash. PHYSICAL EXAM: VITAL SIGNS: Reviewed. GENERAL: Well-developed in no acute distress. HEENT: Head is normocephalic. Pupils are equal, round. Sclerae anicteric. Mucous membranes of the mouth are moist. Neck supple. No JVD or thyromegaly LUNGS: Respirations even and unlabored. Lungs essentially clear to auscultation bilaterally. HEART: Irregular rate and rhythm. S1 and S2 heard. ABDOMEN: Soft. Nondistended. Nontender. EXTREMITIES: Normal range of motion. No clubbing or cyanosis. Peripheral pulses intact. Bilateral lower extremity edema. Left lower extremity more swollen than the right with a large area of erythema that is hot to the touch NEUROLOGIC: Awake and alert. Oriented x 3. ASSESSMENT: Altered mental status Left lower extremity cellulitis Sepsis with leukocytosis and fever Elevated lactic acid Hypokalemia Abnormal troponin, likely secondary to above, no evidence of acute coronary syndrome History of nonischemic cardiomyopathy with ejection fraction of 45% Intermediate coronary artery disease without previous stenting Permanent atrial fibrillation Hypertension Hyperlipidemia Diabetes PLAN: An acute coronary event has been ruled out Obtain 2-D echo to assess cardiac structure and function Resume home cardiac medications Continue telemetry monitoring Further recommendations pending patient's course Nurse practitioner note has been reviewed by physician. Signing provider agrees with the documented findings, assessment, and plan of care. Past Medical History Past Medical History: Atrial Fibrillation, Coronary Artery Disease (CAD), Cancer, Diabetes Mellitus, Hyperlipidemia, Hypertension, Musculoskeletal Disorder, Neurologic Disorder, Osteoarthritis (OA), Pneumonia, Renal Disease, Rheumatoid Arthritis (RA), Skin Disorder, Thyroid Disorder Additional Past Medical History / Comment(s): Morbid obesity, chronic atrial fibrillation, diabetes mellitus type 2, hypertension, hyperlipidemia, spinal stenosis, osteoarthritis, hypothyroidism, hypertension, history of skin melanoma, history of bursitis with MRSA post I&D, rheumatoid arthritis, Sjogren's disease, 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 without any indication of ILD related to RA, Fall on July 22 transfer to [facility] for MRI, then Fall on 11/16/21 History of Any Multi-Drug Resistant Organisms: MRSA Date of last positivie culture/infection: 09/02/22 MDRO Source:: Right Leg Past Surgical History: Back Surgery, Breast Surgery, Cholecystectomy, Heart Catheterization, Joint Replacement, Orthopedic Surgery Additional Past Surgical History / Comment(s): Bilateral cataracts with lens implants, arthroscopies to lt wrist, gualberto knees, gualberto ankles, gualberto hips, lt hip replacment and redone, L/R shoulder sxs, rt breast bx-benign, egd/colonoscopy, skin cancer removal L arm, Lumbar fixnation possible broken Past Anesthesia/Blood Transfusion Reactions: No Reported Reaction Additional Past Anesthesia/Blood Transfusion Reaction / Comment(s): Pt has been told not to have anesthesia metabolized by the kidneys and has neurologic Sjogren's with post anesthesia paralysis. Past Psychological History: No Psychological Hx Reported Smoking Status: Former smoker Past Alcohol Use History: None Reported Past Drug Use History: None Reported - Past Family History Mother Family Medical History: CVA/TIA Additional Family Medical History / Comment(s): RUPTURED BOWEL Father Family Medical History: Cancer, Pneumonia Additional Family Medical History / Comment(s): ASPIRATIVE PNA Sister(s) Additional Family Medical History / Comment(s): at age 34 with lupus Medications and Allergies Home Medications Medication Instructions Recorded Confirmed Type Latanoprost [Xalatan 0.005%] 1 drop BOTH EYES HS 08/11/17 12/15/22 History predniSONE 10 mg PO DAILY 07/23/21 12/15/22 History Magnesium Oxide 400 mg PO DAILY 08/30/21 12/15/22 History Calcium Citrate/Vitamin D3 1 tab PO BID@0900,1800 11/16/21 12/15/22 History [Citracal + D Maximum Caplet] Digoxin [Lanoxin] 125 mcg PO Q2D 11/16/21 12/15/22 History Nitroglycerin Sl Tabs [Nitrostat] 0.4 mg SL Q5M PRN 11/16/21 12/15/22 History Adalimumab [Humira(Cf) Pen] 40 mg SQ Q14D 01/09/22 12/15/22 History Apixaban [Eliquis] 5 mg PO BID@0900,1800 05/02/22 12/15/22 History Gabapentin [Neurontin] 400 mg PO Q6H 05/02/22 12/15/22 History INSULIN LISPRO (HumaLOG) [humaLOG] 8 units SQ AC-LUNCH 05/02/22 12/15/22 History INSULIN LISPRO (HumaLOG) [humaLOG] See Protocol SQ AC-TID 05/02/22 12/15/22 History INSULIN LISPRO (humaLOG) [humaLOG] 8 units SQ AC-SUPPER 05/02/22 12/15/22 History Multivit-Min/FA/Lycopen/Lutein 1 tab PO DAILY 05/02/22 12/15/22 History [Centrum Silver Tablet] metFORMIN HCL [Glucophage] 500 mg PO DAILY@1800 05/02/22 12/15/22 History Insulin Glargine [Lantus Vial] 30 unit SQ BID 05/17/22 12/15/22 History Acetaminophen Tab [Tylenol] 650 mg PO Q6HR PRN tab 05/20/22 12/15/22 Rx Loratadine [Claritin] 10 mg PO DAILY #30 tab 05/20/22 12/15/22 Rx SILVER sulfADIAZINE Cream 1 applic TOPICAL BID PRN 06/28/22 12/15/22 History [Silvadene 1% Cream] Tamsulosin [Flomax] 0.4 mg PO DAILY@1800 06/28/22 12/15/22 History Bumetanide [BUMEX] 1 mg PO BID@0900,1800 09/02/22 12/15/22 History HYDROcodone/APAP 10-325MG [[place] 1 tab PO Q6H 09/02/22 12/15/22 History 10-325] Levothyroxine Sodium [Synthroid] 150 mcg PO HS@0000 09/02/22 12/15/22 History methocarbamoL [Robaxin-750] 750 mg PO DAILY@0000 09/02/22 12/15/22 History INSULIN LISPRO (HumaLOG) [humaLOG] 4 units SQ AC-BRKFST 12/15/22 12/15/22 History metOLazone [Zaroxolyn] 2.5 mg PO TUTH 12/15/22 12/15/22 History oxyBUTYnin chloride [Ditropan] 5 mg PO BID@0900,1800 12/15/22 12/15/22 History traZODone HCL [Desyrel] 50 mg PO HS@0000 12/15/22 12/15/22 History Allergies Allergy/AdvReac Type Severity Reaction Status Date / Time adhesive Allergy Rash/Hives Verified 12/15/22 13:13 cephalexin [From Keflex] Allergy Rash/Hives Verified 12/15/22 13:13 grass pollen Allergy Unknown Verified 12/15/22 13:13 mold Allergy Unknown Verified 12/15/22 13:13 Sulfa (Sulfonamide Allergy Rash/Hives Verified 12/15/22 13:13 Antibiotics) newspaper ink Allergy Mild Unknown Uncoded 12/15/22 13:13 Physical Exam Vitals: Vital Signs Temp Pulse Resp BP Pulse Ox 12/15/22 11:30 96 94 L 12/15/22 10:38 101.3 F H 150 H 20 121/52 88 L Intake and Output 10/12/15/22 12/15/22 06:59 14:59 22:59 Other: Weight 113.398 kg Results 12/15/22 11:12 12/15/22 11:12 Cardiac Enzymes 12/15/22 12/15/22 Range/Units 11:12 11:12 AST 46 H (14-36) U/L Troponin I 0.116 H* (0.000-0.034) ng/mL Coagulation 12/15/22 Range/Units 11:12 PT 10.9 (10.0-12.5) sec APTT 21.5 L (22.0-30.0) sec CBC 12/15/22 Range/Units 11:12 WBC 12.3 H (3.8-10.6) k/uL RBC 5.01 (3.80-5.40) m/uL Hgb 14.9 (11.4-16.0) gm/dL Hct 45.3 (34.0-46.0) % Plt Count 196 (150-450) k/uL Comprehensive Metabolic Panel 12/15/22 Range/Units 11:12 Sodium 133 L (137-145) mmol/L Potassium 3.2 L (3.5-5.1) mmol/L Chloride 85 L (98-107) mmol/L Carbon Dioxide 38 H (22-30) mmol/L BUN 40 H (7-17) mg/dL Creatinine 0.89 (0.52-1.04) mg/dL Glucose 189 H (74-99) mg/dL Calcium 10.5 H (8.4-10.2) mg/dL AST 46 H (14-36) U/L ALT 35 H (4-34) U/L Alkaline Phosphatase 80 (38-126) U/L Total Protein 7.7 (6.3-8.2) g/dL Albumin 3.9 (3.5-5.0) g/dL Current Medications Generic Name Dose Route Start Last Admin Trade Name Freq PRN Reason Stop Dose Admin Apixaban 5 mg 12/15/22 18:00 Apixaban 5 Mg Tab PO BID@0900,1800 [facility] Protocol Dextrose/Water 25 ml 12/15/22 14:14 Dextrose 50% Syringe 50 Ml IVP PER PROTOCOL PRN Hypoglycemia Protocol Dextrose/Water 50 ml 12/15/22 14:14 Dextrose 50% Syringe 50 Ml IVP PER PROTOCOL PRN Hypoglycemia Protocol Vancomycin HCl 1,750 mg/ 500 mls @ 167 mls/hr 12/16/22 05:00 Sodium Chloride IVPB Q16H [facility]OS[facility] Sodium Chloride 1,000 mls @ 130 mls/hr 12/15/22 13:30 Saline 0.9% IV .Q7H42M [facility] Piperacillin Sod/Tazobactam 100 mls @ 25 mls/hr 12/15/22 16:00 Sod 3.375 gm/ Sodium Chloride IVPB Q8HR [facility] Insulin Aspart 0 unit 12/15/22 17:30 Insulin Aspart (Novolog) 100 Unit/Ml Vial SQ ACHS [facility] Protocol Insulin Detemir 15 unit 12/15/22 21:00 Insulin Detemir (Levemir) 100 Unit/Ml Syr SQ BID@0700,2100 [facility] Latanoprost 1 drops 12/15/22 21:00 Latanoprost 0.005% Ophth Drops 2.5 Ml Btl BOTH EYES HS [facility] Levothyroxine Sodium 150 mcg 12/16/22 00:00 Levothyroxine 75 Mcg Tab PO HS@0000 [facility] Loratadine 10 mg 12/16/22 09:00 Loratadine 10 Mg Tab PO DAILY [facility] Tamsulosin HCl 0.4 mg 12/15/22 18:00 Tamsulosin 0.4 Mg Cap.Er.24h PO DAILY@1800 [facility] Trazodone HCl 50 mg 12/16/22 00:00 Trazodone Hcl 50 Mg Tab PO HS@0000 [facility] Intake and Output 12/15/22 12/15/22 12/15/22 06:59 14:59 22:59 Other: Weight 113.398 kg Patient Weight 12/16/22 06:59 Weight 113.398 kg 12/15/22 11:12 12/15/22 11:12
[2022-12-15] MEDS: SODIUM CHLORIDE 0.9% 1,000 ML IV SCH (15:22)
[2022-12-15] MEDS ORDERED: PIPERACILLIN-TAZOBACTAM 3.375 GM in SODIUM CHLORIDE 0.9% 100 ML IVPB SCH (16:00)
[2022-12-15 17:39] LABS: Glucose,Whole Blood 202 mg/dL (70-110)
[2022-12-15] MEDS: APIXABAN 5 MG TAB PO SCH (18:22)
[2022-12-15] MEDS: TAMSULOSIN 0.4 MG CAP.ER.24H PO SCH (18:23)
[2022-12-15] MEDS: INSULIN ASPART (NovoLOG) 100 UNIT/ML VIAL SQ SCH ×2 (18:23→20:34)
[2022-12-15] MEDS: AMPICILLIN-SULBACTAM 3 GM in SODIUM CHLORIDE 0.9% 100 ML IVPB SCH ×2 (18:23→23:03)
[2022-12-15 19:39] LABS: Glucose,Whole Blood 203 mg/dL (70-110)
[2022-12-15] MEDS: INSULIN DETEMIR (LEVEMIR) 100 UNIT/ML SYR SQ SCH (20:34)
[2022-12-15] MEDS: LATANOPROST 0.005% OPHTH DROPS 2.5 ML BTL BOTH EYES SCH (20:35)
[2022-12-15] MEDS: ACETAMINOPHEN TAB 325 MG TAB PO PRN (23:00)
[2022-12-15] MEDS: LEVOTHYROXINE 75 MCG TAB PO SCH (23:00)
[2022-12-15] MEDS: traZODone HCL 50 MG TAB PO SCH (23:58)
[2022-12-16] MEDS: traMADol 50 MG TAB PO PRN ×4 (01:16→17:38)
[2022-12-16] MEDS: SODIUM CHLORIDE 0.9% 1,000 ML IV SCH ×3 (02:40→13:49)
[2022-12-16] MEDS: ACETAMINOPHEN TAB 325 MG TAB PO PRN ×2 (05:06→15:53)
[2022-12-16] MEDS: AMPICILLIN-SULBACTAM 3 GM in SODIUM CHLORIDE 0.9% 100 ML IVPB SCH ×4 (05:06→23:14)
[2022-12-16] MEDS: VANCOMYCIN 1,750 MG in SODIUM CHLORIDE 0.9% 500 ML 500 ML IVPB SCH ×2 (05:43→20:00)
[2022-12-16 05:58] LABS: Glucose,Whole Blood 133 mg/dL (70-110)
[2022-12-16] MEDS: INSULIN ASPART (NovoLOG) 100 UNIT/ML VIAL SQ SCH ×8 (06:17→19:59)
[2022-12-16] MEDS: INSULIN DETEMIR (LEVEMIR) 100 UNIT/ML SYR SQ SCH ×2 (06:19→20:00)
--- NOTE | 2022-12-16 08:31 | CT ---
EXAMINATION TYPE: CT foot LT w con DATE OF EXAM: 12/15/2022 COMPARISON: Radiograph 12/15/2022 HISTORY: 82-year-old female Left foot swelling, red and warm pt also has a fever. TECHNIQUE: Contiguous axial scanning of the left foot performed with IV Contrast, patient injected wi th 100 ml mL of Isovue 370. Coronal/sagittal reconstructions performed. CT DLP: 695.1 mGycm Automated exposure control for dose reduction was used. FINDINGS: Marked generalized soft tissue swelling within the visualized leg, ankle, and throughout the foot, se monalisa dorsally. There is severe osteopenia. Moderately advanced degenerative change tibiotalar joint and talofibular joint. Additional advanced d egenerative change throughout the TMT joints. No obvious large tenosynovial fluid. No peripherally enhancing fluid collection identified The degree of osteopenia limits assessment for nondisplaced fractures. No obvious displaced fracture is seen. Small plantar heel spur with some thickening at the origin of the plantar fascia which can be seen wi th plantar fasciitis. No obvious lytic bony destruction identified at this time. Numerous corticated bone fragments at the medial malleolus compatible with sequela of remote injuries. No soft tissue air. IMPRESSION: 1. SEVERE GENERALIZED SOFT TISSUE SWELLING DISTAL LEG, ANKLE, AND THROUGHOUT THE FOOT, MOST EXTENSIVE DORSALLY. FINDINGS MAY REPRESENT CELLULITIS. NO EVIDENT ABSCESS OR SIGNIFICANT TENOSYNOVITIS IDENTIF IED. 2. MODERATE TO SEVERE TIBIOTALAR AND TALOFIBULAR JOINT OA. MODERATE TO SEVERE OA THROUGHOUT THE MIDFO OT. 3. SEVERE OSTEOPENIA. NO EVIDENT DISPLACED FRACTURE.
--- NOTE | 2022-12-16 08:35 | P.PN ---
Subjective Principal diagnosis: Cellulitis with the weakness and chronic pain The patient is here for multifactorial problems but came in secondary to significant weakness. Left lower extremity cellulitis is also noted per she has normal history of diabetes history of congestive heart failure. Echocardiogram does show nominal ejection fraction. She is complaining of significant lower extremity pain today. Objective - Vital Signs Vital signs: Vital Signs Temp 100.1 F H 12/16/22 03:21 Pulse 89 12/16/22 03:21 Resp 18 12/16/22 03:21 BP 129/56 12/16/22 03:21 Pulse Ox 98 12/16/22 03:21 FiO2 Intake & Output 12/15/22 12/16/22 12/16/22 18:59 06:59 18:59 Intake Total 0 Balance 0 Weight 113.398 kg Intake: Oral 0 Other: Voiding Method External Catheter # Voids 0 # Bowel Movements 0 - Constitutional General appearance: Present: morbidly obese - EENT Eyes: Absent: abnormal pupil - Neck Neck: Absent: lymphadenopathy - Respiratory Respiratory: bilateral: diminished - Cardiovascular Rhythm: irregularly irregular Heart sounds: normal: S1, S2 Abnormal Heart Sounds: Absent: S3 Gallop - Gastrointestinal General gastrointestinal: Present: soft. Absent: tenderness - Integumentary Integumentary: Present: cellulitis - Musculoskeletal Musculoskeletal: Present: generalized weakness - Psychiatric Psychiatric: Present: A&O x's 3 - Labs CBC & Chem 7: 12/15/22 11:12 12/15/22 11:12 Labs: Abnormal Lab Results - Last 24 Hours (Table) 12/15/22 12/15/22 12/15/22 Range/Units 11:07 11:12 11:12 WBC 12.3 H (3.8-10.6) k/uL RDW 19.1 H (11.5-15.5) % Neutrophils # 9.9 H (1.3-7.7) k/uL APTT 21.5 L (22.0-30.0) sec Sodium (137-145) mmol/L Potassium (3.5-5.1) mmol/L Chloride (98-107) mmol/L Carbon Dioxide (22-30) mmol/L BUN (7-17) mg/dL Glucose (74-99) mg/dL POC Glucose (mg/dL) 195 H (70-110) mg/dL Hemoglobin A1c (<=6.0) % Plasma Lactic Acid Cj (0.7-2.0) mmol/L Calcium (8.4-10.2) mg/dL AST (14-36) U/L ALT (4-34) U/L Troponin I (0.000-0.034) ng/mL 12/15/22 12/15/22 12/15/22 Range/Units 11:12 11:12 11:12 WBC (3.8-10.6) k/uL RDW (11.5-15.5) % Neutrophils # (1.3-7.7) k/uL APTT (22.0-30.0) sec Sodium 133 L (137-145) mmol/L Potassium 3.2 L (3.5-5.1) mmol/L Chloride 85 L (98-107) mmol/L Carbon Dioxide 38 H (22-30) mmol/L BUN 40 H (7-17) mg/dL Glucose 189 H (74-99) mg/dL POC Glucose (mg/dL) (70-110) mg/dL Hemoglobin A1c (<=6.0) % Plasma Lactic Acid Cj 2.6 H* (0.7-2.0) mmol/L Calcium 10.5 H (8.4-10.2) mg/dL AST 46 H (14-36) U/L ALT 35 H (4-34) U/L Troponin I 0.116 H* (0.000-0.034) ng/mL 12/15/22 12/15/22 12/15/22 Range/Units 14:24 14:24 16:58 WBC (3.8-10.6) k/uL RDW (11.5-15.5) % Neutrophils # (1.3-7.7) k/uL APTT (22.0-30.0) sec Sodium (137-145) mmol/L Potassium (3.5-5.1) mmol/L Chloride (98-107) mmol/L Carbon Dioxide (22-30) mmol/L BUN (7-17) mg/dL Glucose (74-99) mg/dL POC Glucose (mg/dL) (70-110) mg/dL Hemoglobin A1c (<=6.0) % Plasma Lactic Acid Cj 2.1 H* (0.7-2.0) mmol/L Calcium (8.4-10.2) mg/dL AST (14-36) U/L ALT (4-34) U/L Troponin I 0.190 H* 0.150 H* (0.000-0.034) ng/mL 12/15/22 12/15/22 12/15/22 Range/Units 16:58 17:26 19:38 WBC (3.8-10.6) k/uL RDW (11.5-15.5) % Neutrophils # (1.3-7.7) k/uL APTT (22.0-30.0) sec Sodium (137-145) mmol/L Potassium (3.5-5.1) mmol/L Chloride (98-107) mmol/L Carbon Dioxide (22-30) mmol/L BUN (7-17) mg/dL Glucose (74-99) mg/dL POC Glucose (mg/dL) 202 H 203 H (70-110) mg/dL Hemoglobin A1c 11.6 H (<=6.0) % Plasma Lactic Acid Cj (0.7-2.0) mmol/L Calcium (8.4-10.2) mg/dL AST (14-36) U/L ALT (4-34) U/L Troponin I (0.000-0.034) ng/mL 12/16/22 Range/Units 05:57 WBC (3.8-10.6) k/uL RDW (11.5-15.5) % Neutrophils # (1.3-7.7) k/uL APTT (22.0-30.0) sec Sodium (137-145) mmol/L Potassium (3.5-5.1) mmol/L Chloride (98-107) mmol/L Carbon Dioxide (22-30) mmol/L BUN (7-17) mg/dL Glucose (74-99) mg/dL POC Glucose (mg/dL) 133 H (70-110) mg/dL Hemoglobin A1c (<=6.0) % Plasma Lactic Acid Cj (0.7-2.0) mmol/L Calcium (8.4-10.2) mg/dL AST (14-36) U/L ALT (4-34) U/L Troponin I (0.000-0.034) ng/mL Microbiology - Last 24 Hours (Table) 12/15/22 11:12 Blood Culture Gram Stain - Preliminary Blood 12/15/22 11:12 Blood Culture Gram Stain - Preliminary Blood Assessment and Plan (1) Cellulitis, leg Current Visit: Yes Status: Acute Code(s): L03.119 - CELLULITIS OF UNSPECIFIED PART OF LIMB SNOMED Code(s): 431472094 (2) Elevated troponin Current Visit: Yes Status: Acute Code(s): R74.8 - ABNORMAL LEVELS OF OTHER SERUM ENZYMES SNOMED Code(s): 911545450 (3) Sepsis Current Visit: Yes Status: Acute Code(s): A41.9 - SEPSIS, UNSPECIFIED ORGANISM SNOMED Code(s): 04741256 (4) Atrial fibrillation Current Visit: No Status: Acute Code(s): I48.91 - UNSPECIFIED ATRIAL FIBRILLATION SNOMED Code(s): 85751592 (5) Back pain Current Visit: No Status: Acute Code(s): M54.9 - DORSALGIA, UNSPECIFIED SNOMED Code(s): 398084255 (6) CAD (coronary artery disease) Current Visit: No Status: Acute Code(s): I25.10 - ATHSCL HEART DISEASE OF [place] CORONARY ARTERY W/O ANG PCTRS SNOMED Code(s): 12605072 (7) Diabetes Current Visit: No Status: Acute Code(s): E11.9 - TYPE 2 DIABETES MELLITUS WITHOUT COMPLICATIONS SNOMED Code(s): 58597341 (8) Generalized weakness Current Visit: No Status: Acute Code(s): R53.1 - WEAKNESS SNOMED Code(s): 85636353 (9) Hypertension Current Visit: No Status: Acute Code(s): I10 - ESSENTIAL (PRIMARY) HYPERTENSION SNOMED Code(s): 74698546 (10) Hypomagnesemia Current Visit: No Status: Acute Code(s): E83.42 - HYPOMAGNESEMIA SNOMED Code(s): 569272067 Plan: Continue home medications. Check CBC and CMP in a.m. with magnesium. Appreciate infectious disease and cardiology input. Prognosis is guarded secondary to multiple comorbidities per See orders otherwise.
[2022-12-16] MEDS: GABAPENTIN 400 MG CAP PO SCH ×4 (09:02→23:14)
[2022-12-16] MEDS: BUMETANIDE 1 MG TAB PO SCH ×2 (09:02→17:23)
[2022-12-16] MEDS: oxyBUTYnin chloride 5 MG TAB PO SCH ×2 (09:02→17:23)
[2022-12-16] MEDS: LORATADINE 10 MG TAB PO SCH (09:02)
[2022-12-16] MEDS: APIXABAN 5 MG TAB PO SCH ×2 (09:02→17:23)
[2022-12-16] MEDS: MAGNESIUM OXIDE 400 MG TAB PO SCH (09:02)
[2022-12-16] MEDS: CALCIUM CARB-VIT D 500 MG-5 MCG TAB PO SCH ×2 (09:02→17:23)
[2022-12-16] MEDS: DIGOXIN 125 MCG TAB PO SCH (09:02)
[2022-12-16] MEDS: MULTIVITAMINS, THERA 1 EACH TAB PO SCH (09:02)
[2022-12-16] MEDS: predniSONE 10 MG TAB PO SCH (09:03)
[2022-12-16 09:18] LABS: African American GFR (CKD) 90 (>60 ml/min/1.73 sqM); Non-African American GFR(CKD) 78 (>60 ml/min/1.73 sqM)
--- NOTE | 2022-12-16 11:40 | CA ---
Transthoracic Echo Report Name: Rosalva Lr Age: 82 Gender: F : 1940 Exam Date: 12/16/2022 07:47 Exam Location: [facility] Ht (in): 75 Wt (lb): 250 Ordering Physician: Laquita Virk Attending/Referring Phys: [id number], [employer] Stalin Ford Procedure CPT: Indications: elevated trops, lv function Cardiac Hx: Technical Quality: Fair Contrast 1: Total Dose (mL): Contrast 2: Total Dose (mL): MEASUREMENTS (Male / Female) Normal Values 2D ECHO LV Diastolic Diameter PLAX 4.2 cm 4.2 - 5.9 / 3.9 - 5.3 cm LV Systolic Diameter PLAX 2.9 cm IVS Diastolic Thickness 1.4 cm 0.6 - 1.0 / 0.6 - 0.9 cm LVPW Diastolic Thickness 1.3 cm 0.6 - 1.0 / 0.6 - 0.9 cm LV Relative Wall Thickness 0.7 RV Internal Dim ED PLAX 3.0 cm LVOT Diameter 2.1 cm Aortic Root Diameter 3.5 cm LA Systolic Diameter LX 3.0 cm 3.0 - 4.0 / 2.7 - 3.8 cm LV Diastolic Volume MOD BP 66.9 cm??? 67 - 155 / 56 - 104 cm??? LV Systolic Volume MOD BP 26.1 cm??? 22 - 58 / 19 - 49 cm??? LV Ejection Fraction MOD BP 61.0 % >= 55 % LV Cardiac Index MOD BP 1532.7 cm???/min???m??? LV Diastolic Volume MOD 4C 54.1 cm??? LV Systolic Volume MOD 4C 18.2 cm??? LV Ejection Fraction MOD 4C 66.4 % LV Cardiac Index MOD 4C 1348.4 cm???/min???m??? LV Diastolic Length 4C 7.6 cm LV Systolic Length 4C 7.1 cm LV Diastolic Volume MOD 2C 80.7 cm??? LV Systolic Volume MOD 2C 37.7 cm??? LV Ejection Fraction MOD 2C 53.3 % LV Cardiac Index MOD 2C 1615.5 cm???/min???m??? LV Diastolic Length 2C 7.4 cm LV Systolic Length 2C 7.1 cm LA Volume 69.2 cm??? 18 - 58 / 22 - 52 cm??? LA Volume Index 28.0 cm???/m??? 16 - 28 cm???/m??? Ascending Aorta Diameter 3.1 cm DOPPLER AV Peak Velocity 135.8 cm/s AV Peak Gradient 7.4 mmHg AI Peak Velocity 259.2 cm/s AI Peak Gradient 26.9 mmHg AI Pressure Half Time 413.3 ms LVOT Peak Velocity 107.1 cm/s LVOT Peak Gradient 4.6 mmHg LVOT Velocity Time Integral 24.3 cm LVOT Stroke Volume 83.6 cm??? LVOT Stroke Volume Index 34.6 ml/m??? LVOT Cardiac Index 3140.1 cm???/min???m??? AV Area Cont Eq pk 2.7 cm??? MV Peak Velocity 209.5 cm/s MV Peak Gradient 17.6 mmHg MV Mean Velocity 96.8 cm/s MV Mean Gradient 5.2 mmHg MV Velocity Time Integral 52.9 cm MR Peak Velocity 526.8 cm/s MR Peak Gradient 111.0 mmHg MV E' Velocity 6.7 cm/s TR Peak Velocity 297.5 cm/s TR Peak Gradient 35.4 mmHg Right Ventricular Systolic Press 40.5 mmHg PV Peak Velocity 116.3 cm/s PV Peak Gradient 5.4 mmHg FINDINGS Left Ventricle Normal LV size. Mild to moderate concentric LVH. Left ventricular ejection fraction is estimated at 50-55 %. Right Ventricle Normal right ventricular size. RVSP= 45mmHg. Right Atrium Normal right atrial size. Left Atrium Normal left atrial size. LA volume index= 29mmHg. Mitral Valve Moderate to severe posterior Mitral annulus calcification. Moderate MR. Aortic Valve Trileaflet aortic valve. Mild Aortic valve calcification. Moderate AI. Tricuspid Valve Tricuspid valve not well visualized. Mild TR. Pulmonic Valve Pulmonic valve not well visualized. Moderate PI. Pericardium Normal pericardium. Aorta Normal size aortic root and proximal ascending aorta. CONCLUSIONS LVH with ejection fraction of 50-55% Right ventricular hypertrophy with mild enlargement and elevated RVSP with pressure overload Moderate mitral regurgitation with significant mitral annular calcification Moderate pulmonic regurgitation, moderate aortic regurgitation Previewed by: Dr. Gwyn Murphy MD (Electronically Signed) Final Date: 16 December 2022 11:39
[2022-12-16 11:42] LABS: Glucose,Whole Blood 136 mg/dL (70-110)
--- NOTE | 2022-12-16 12:06 | P.PN ---
Subjective HISTORY OF PRESENT ILLNESS: This is a 82-year-old female with a past medical history significant for hypertension, hyperlipidemia, diabetes, nonischemic cardiomyopathy, permanent atrial fibrillation and intermediate coronary artery disease. Patient follows in the office with Dr. George. We have been asked to see the patient in consultation for elevated troponin. Patient examined at the bedside in the emergency room. Patient is somewhat confused at the time of examination. She apparently was brought to the hospital after she was found to be confused. She is admitted to the hospital with a diagnosis of lower extremity cellulitis. According to ER documentation, the patient was febrile with a temperature of 103 in route to the hospital. Patient was also A. fib with RVR upon arrival. Bedside telemetry in the emergency room reveals atrial fibrillation with a heart rate in the 70s. Patient currently denies chest pain or pressure. She denies shortness of breath. Vital signs are stable. * EKG reveals A. fib with RVR * Current home cardiac medications include Zaroxolyn 2.5 mg Monday and , Bumex 1 mg twice a day, digoxin 125 g every 2 days, Eliquis 5 mg twice a day * Most recent echocardiogram obtained in April 2022 revealed ejection fraction 45-50% * Cardiac catheterization history: August 2017 revealing intermediate disease involving the mid circumflex 12/16/2022 Patient examined this morning at the bedside. Patient denies chest pain or pressure. She denies shortness of breath. Vital signs are stable. Patient was febrile overnight with a temperature of 100.1F. 2-D echo reveals normal EF. PHYSICAL EXAM: VITAL SIGNS: Reviewed. GENERAL: Well-developed in no acute distress. HEENT: Head is normocephalic. Pupils are equal, round. Sclerae anicteric. Mucous membranes of the mouth are moist. Neck supple. No JVD or thyromegaly LUNGS: Respirations even and unlabored. Lungs essentially clear to auscultation bilaterally. HEART: Irregular rate and rhythm. S1 and S2 heard. ABDOMEN: Soft. Nondistended. Nontender. EXTREMITIES: Normal range of motion. No clubbing or cyanosis. Peripheral pulses intact. Bilateral lower extremity edema. Left lower extremity more swollen than the right with a large area of erythema that is hot to the touch NEUROLOGIC: Awake and alert. Oriented x 3. ASSESSMENT: Altered mental status Left lower extremity cellulitis Sepsis with leukocytosis and fever Elevated lactic acid Hypokalemia Abnormal troponin, likely secondary to above, no evidence of acute coronary syndrome History of nonischemic cardiomyopathy with ejection fraction of 45% Intermediate coronary artery disease without previous stenting Permanent atrial fibrillation Hypertension Hyperlipidemia Diabetes PLAN: 2D echo obtained and reviewed Continue current cardiac medications Continue telemetry monitoring Patient is currently stable from a cardiac perspective We will sign off. Please reconsult if needed Nurse practitioner note has been reviewed by physician. Signing provider agrees with the documented findings, assessment, and plan of care. Objective - Vital Signs Vital signs: Vital Signs Temp 98.2 F 12/16/22 08:55 Pulse 88 12/16/22 08:55 Resp 15 12/16/22 08:55 BP 123/60 12/16/22 08:55 Pulse Ox 97 12/16/22 08:55 FiO2 Intake & Output 12/15/22 12/16/22 12/16/22 18:59 06:59 18:59 Intake Total 0 240 Output Total 400 Balance 0 -160 Weight 113.398 kg Intake: Oral 0 240 Output: Urine 400 Other: Voiding Method External Catheter External Catheter # Voids 0 # Bowel Movements 0 - Labs CBC & Chem 7: 12/15/22 11:12 12/16/22 08:55 Labs: Abnormal Lab Results - Last 24 Hours (Table) 12/15/22 12/15/22 12/15/22 Range/Units 11:12 11:12 11:12 WBC 12.3 H (3.8-10.6) k/uL RDW 19.1 H (11.5-15.5) % Neutrophils # 9.9 H (1.3-7.7) k/uL APTT 21.5 L (22.0-30.0) sec Sodium 133 L (137-145) mmol/L Potassium 3.2 L (3.5-5.1) mmol/L Chloride 85 L (98-107) mmol/L Carbon Dioxide 38 H (22-30) mmol/L BUN 40 H (7-17) mg/dL Glucose 189 H (74-99) mg/dL POC Glucose (mg/dL) (70-110) mg/dL Hemoglobin A1c (<=6.0) % Plasma Lactic Acid Cj (0.7-2.0) mmol/L Calcium 10.5 H (8.4-10.2) mg/dL AST 46 H (14-36) U/L ALT 35 H (4-34) U/L Troponin I (0.000-0.034) ng/mL 12/15/22 12/15/22 12/15/22 Range/Units 11:12 11:12 14:24 WBC (3.8-10.6) k/uL RDW (11.5-15.5) % Neutrophils # (1.3-7.7) k/uL APTT (22.0-30.0) sec Sodium (137-145) mmol/L Potassium (3.5-5.1) mmol/L Chloride (98-107) mmol/L Carbon Dioxide (22-30) mmol/L BUN (7-17) mg/dL Glucose (74-99) mg/dL POC Glucose (mg/dL) (70-110) mg/dL Hemoglobin A1c (<=6.0) % Plasma Lactic Acid Cj 2.6 H* (0.7-2.0) mmol/L Calcium (8.4-10.2) mg/dL AST (14-36) U/L ALT (4-34) U/L Troponin I 0.116 H* 0.190 H* (0.000-0.034) ng/mL 12/15/22 12/15/22 12/15/22 Range/Units 14:24 16:58 16:58 WBC (3.8-10.6) k/uL RDW (11.5-15.5) % Neutrophils # (1.3-7.7) k/uL APTT (22.0-30.0) sec Sodium (137-145) mmol/L Potassium (3.5-5.1) mmol/L Chloride (98-107) mmol/L Carbon Dioxide (22-30) mmol/L BUN (7-17) mg/dL Glucose (74-99) mg/dL POC Glucose (mg/dL) (70-110) mg/dL Hemoglobin A1c 11.6 H (<=6.0) % Plasma Lactic Acid Cj 2.1 H* (0.7-2.0) mmol/L Calcium (8.4-10.2) mg/dL AST (14-36) U/L ALT (4-34) U/L Troponin I 0.150 H* (0.000-0.034) ng/mL 12/15/22 12/15/22 12/16/22 Range/Units 17:26 19:38 05:57 WBC (3.8-10.6) k/uL RDW (11.5-15.5) % Neutrophils # (1.3-7.7) k/uL APTT (22.0-30.0) sec Sodium (137-145) mmol/L Potassium (3.5-5.1) mmol/L Chloride (98-107) mmol/L Carbon Dioxide (22-30) mmol/L BUN (7-17) mg/dL Glucose (74-99) mg/dL POC Glucose (mg/dL) 202 H 203 H 133 H (70-110) mg/dL Hemoglobin A1c (<=6.0) % Plasma Lactic Acid Cj (0.7-2.0) mmol/L Calcium (8.4-10.2) mg/dL AST (14-36) U/L ALT (4-34) U/L Troponin I (0.000-0.034) ng/mL Microbiology - Last 24 Hours (Table) 12/15/22 11:12 Blood Culture Gram Stain - Preliminary Blood 12/15/22 11:12 Blood Culture Gram Stain - Preliminary Blood
[2022-12-16 13:27] VITALS: BMI 31.2
[2022-12-16] MEDS ORDERED: Potassium Replacement Protocol 1 EACH MISC MISCELLANE PRN (14:37)
[2022-12-16] MEDS: POTASSIUM CHLORIDE ER 20 MEQ TAB.ER PO SCH ×3 (14:50→15:46)
--- NOTE | 2022-12-16 16:20 | P.PN ---
Subjective Progress Note Date: 12/16/22 Principal diagnosis: Left leg cellulitis and bacteremia Patient is a 82-year-old female with a past medical history significant for hypertension hyperlipidemia heart failure with atrial fibrillation osteoarthritis in this patient presenting to the hospital with weakness left lower extremity swelling and redness and did have an infected callus on the plantar aspect of the left foot CT was negative for any abscess blood culture positive for Streptococcus agalactiae patient did have cephalexin ALLERGY. On today's evaluation that is 12/16/2022, the patient remains to be afebrile the patient is breathing comfortably on 4 L nasal cannula supplemental oxygen, the patient denies chest pain, shortness of breath or cough, patient denies nausea/vomiting , no diarrhea and no abdominal pain, left leg swelling redness is slightly decreased Patient did have white count of 0.730 CBC wasn't done today white count was 12.3 yesterday blood culture with Streptococcus agalactiae Objective - Vital Signs Vital signs: Vital Signs Temp 98.0 F 12/16/22 11:48 Pulse 87 12/16/22 11:48 Resp 18 12/16/22 11:48 BP 137/64 12/16/22 11:48 Pulse Ox 99 12/16/22 11:48 FiO2 Intake & Output 12/15/22 12/16/22 12/16/22 18:59 06:59 18:59 Intake Total 0 240 Output Total 400 Balance 0 -160 Weight 113.398 kg Intake: Oral 0 240 Output: Urine 400 Other: Voiding Method External Catheter External Catheter # Voids 0 # Bowel Movements 0 - Exam GENERAL DESCRIPTION: An elderly female lying in bed in no distress RESPIRATORY SYSTEM: Unlabored breathing , decreased breath sounds at bases HEART: S1 S2 regular rate and rhythm , ABDOMEN: Soft , no tenderness EXTREMITIES: Left leg the redness slightly decreased - Labs CBC & Chem 7: 12/15/22 11:12 12/16/22 08:55 Labs: Abnormal Lab Results - Last 24 Hours (Table) 12/15/22 12/15/22 12/15/22 Range/Units 11:12 14:24 14:24 POC Glucose (mg/dL) (70-110) mg/dL Hemoglobin A1c (<=6.0) % Plasma Lactic Acid Cj 2.1 H* (0.7-2.0) mmol/L Troponin I 0.116 H* 0.190 H* (0.000-0.034) ng/mL 12/15/22 12/15/22 12/15/22 Range/Units 16:58 16:58 17:26 POC Glucose (mg/dL) 202 H (70-110) mg/dL Hemoglobin A1c 11.6 H (<=6.0) % Plasma Lactic Acid Cj (0.7-2.0) mmol/L Troponin I 0.150 H* (0.000-0.034) ng/mL 12/15/22 12/16/22 12/16/22 Range/Units 19:38 05:57 11:41 POC Glucose (mg/dL) 203 H 133 H 136 H (70-110) mg/dL Hemoglobin A1c (<=6.0) % Plasma Lactic Acid Cj (0.7-2.0) mmol/L Troponin I (0.000-0.034) ng/mL Microbiology - Last 24 Hours (Table) 12/15/22 11:12 Blood Culture Gram Stain - Preliminary Blood 12/15/22 11:12 Blood Culture Gram Stain - Preliminary Blood Assessment and Plan (1) Allergy to cephalosporin Current Visit: Yes Status: Acute Code(s): Z88.1 - ALLERGY STATUS TO OTHER ANTIBIOTIC AGENTS SNOMED Code(s): 007711325 (2) Cellulitis, leg Current Visit: Yes Status: Acute Code(s): L03.119 - CELLULITIS OF UNSPECIFIED PART OF LIMB SNOMED Code(s): 941634762 (3) Bacteremia Current Visit: No Status: Acute Code(s): R78.81 - BACTEREMIA SNOMED Code(s): 4358957 Plan: 1patient is in the hospital with weakness also have component of left lower extremity cellulitis and did have a small area of swelling possibly infected callus and likely responsible for the cellulitis underlying abscess not entirely excluded 2patient will have a cephalexin ALLERGY that will limit the number of antibiotic safety use 3 CT of the left foot with no evidence of any abscess 4-Streptococcus agalactiae bacteremia source is likely left lower extremity cellulitis, blood culture repeated document clearance 5patient to continue with vancomycin pharmacy to dose because of her cephalexin ALLERGY Dictation was produced using [employer] dictation software. please excuse any grammatical, word or spelling errors. Time with Patient: Less than 30
[2022-12-16 16:57] LABS: Glucose,Whole Blood 295 mg/dL (70-110)
[2022-12-16] MEDS: metFORMIN 500 MG TAB PO SCH (17:23)
[2022-12-16] MEDS: TAMSULOSIN 0.4 MG CAP.ER.24H PO SCH (17:23)
[2022-12-16 19:29] LABS: Glucose,Whole Blood 338 mg/dL (70-110)
[2022-12-16] MEDS: LATANOPROST 0.005% OPHTH DROPS 2.5 ML BTL BOTH EYES SCH (20:03)
[2022-12-16] MEDS ORDERED: POTASSIUM CHLORIDE ER 20 MEQ TAB.ER PO STA (23:08)
[2022-12-16] MEDS: traZODone HCL 50 MG TAB PO SCH (23:14)
[2022-12-16] MEDS: LEVOTHYROXINE 75 MCG TAB PO SCH (23:14)
[2022-12-16] MEDS: methocarbamoL 750 MG TAB PO SCH (23:14)
[2022-12-17] MEDS: HYDROcodone/APAP 5-325MG 1 EACH TAB PO PRN ×4 (02:48→22:53)
[2022-12-17] MEDS: traMADol 50 MG TAB PO PRN ×3 (05:52→20:15)
[2022-12-17] MEDS: GABAPENTIN 400 MG CAP PO SCH ×4 (05:52→22:57)
[2022-12-17] MEDS: AMPICILLIN-SULBACTAM 3 GM in SODIUM CHLORIDE 0.9% 100 ML IVPB SCH ×4 (05:53→22:53)
[2022-12-17 06:00] LABS: Glucose,Whole Blood 199 mg/dL (70-110)
[2022-12-17] MEDS: INSULIN DETEMIR (LEVEMIR) 100 UNIT/ML SYR SQ SCH ×2 (06:16→20:11)
[2022-12-17 07:20] LABS: Glucose,Whole Blood 192 mg/dL (70-110)
[2022-12-17] MEDS: oxyBUTYnin chloride 5 MG TAB PO SCH ×2 (09:37→16:59)
[2022-12-17] MEDS: BUMETANIDE 1 MG TAB PO SCH ×2 (09:37→17:00)
[2022-12-17] MEDS: MULTIVITAMINS, THERA 1 EACH TAB PO SCH (09:37)
[2022-12-17] MEDS: MAGNESIUM OXIDE 400 MG TAB PO SCH (09:37)
[2022-12-17] MEDS: predniSONE 10 MG TAB PO SCH (09:37)
[2022-12-17] MEDS: CALCIUM CARB-VIT D 500 MG-5 MCG TAB PO SCH ×2 (09:37→16:59)
[2022-12-17] MEDS: APIXABAN 5 MG TAB PO SCH ×2 (09:37→16:59)
[2022-12-17] MEDS: INSULIN ASPART (NovoLOG) 100 UNIT/ML VIAL SQ SCH ×7 (09:38→20:11)
[2022-12-17] MEDS: LORATADINE 10 MG TAB PO SCH (09:39)
[2022-12-17 11:57] LABS: Glucose,Whole Blood 222 mg/dL (70-110)
[2022-12-17 12:37] LABS: Anisocytosis Slight; Basophils % (A) 1 %; Eosinophils # (A) 0.2 k/uL (0-0.7); Eosinophils % (A) 3 %; HCT 34.5 % (34.0-46.0); Lymphocytes # (A) 1.6 k/uL (1.0-4.8); Lymphocytes % (A) 24 %; MCH 30.1 pg (25.0-35.0); MCHC 32.3 g/dL (31.0-37.0); MCV 93.3 fL (80.0-100.0); Mean Platelet Volume 7.6; Monocytes # (A) 0.4 k/uL (0-1.0); Monocytes % (A) 5 %; Neutrophils # (A) 4.5 k/uL (1.3-7.7); Neutrophils % (A) 65 %; Platelet Count 158 k/uL (150-450); RDW 18.8 % (11.5-15.5)
[2022-12-17 12:53] LABS: HGB 11.1 gm/dL (11.4-16.0)
--- NOTE | 2022-12-17 13:03 | P.PN ---
Subjective Progress Note Date: 12/17/22 Principal diagnosis: Left leg cellulitis and bacteremia Patient is a 82-year-old female with a past medical history significant for hypertension hyperlipidemia heart failure with atrial fibrillation osteoarthritis in this patient presenting to the hospital with weakness left lower extremity swelling and redness and did have an infected callus on the plantar aspect of the left foot CT was negative for any abscess blood culture positive for Streptococcus agalactiae patient did have cephalexin ALLERGY. On today's evaluation that is 12/17/2022, the patient denies any fever or any chills, the patient is breathing comfortably on room air , the patient denies chest pain, shortness of breath and no significant cough, patient denies abdominal pain, no nausea/vomiting or diarrhea, the patient left leg swelling redness is slightly decreased Patient did have white count of 7.0, blood culture with Streptococcus agalactiae Objective - Vital Signs Vital signs: Vital Signs Temp 98.2 F 12/17/22 12:20 Pulse 67 12/17/22 12:20 Resp 16 12/17/22 12:20 BP 130/63 12/17/22 12:20 Pulse Ox 98 12/17/22 12:20 FiO2 Intake & Output 12/16/22 12/17/22 12/17/22 18:59 06:59 18:59 Intake Total 720 118 Output Total 800 Balance -80 118 Weight 113.398 kg Intake: Oral 720 118 Output: Urine 800 Other: Voiding Method External Catheter Bedpan Bedside Commode Diaper Diaper External Catheter # Voids 2 # Bowel Movements 1 - Exam GENERAL DESCRIPTION: An elderly female lying in bed in no distress RESPIRATORY SYSTEM: Unlabored breathing , decreased breath sounds at bases HEART: S1 S2 regular rate and rhythm , ABDOMEN: Soft , no tenderness EXTREMITIES: Left leg the redness slightly decreased - Labs CBC & Chem 7: 12/17/22 11:42 12/16/22 21:13 Labs: Abnormal Lab Results - Last 24 Hours (Table) 12/16/22 12/16/22 12/16/22 Range/Units 08:55 16:53 19:27 RBC (3.80-5.40) m/uL Hgb (11.4-16.0) gm/dL RDW (11.5-15.5) % Potassium 3.0 L (3.5-5.1) mmol/L POC Glucose (mg/dL) 295 H 338 H (70-110) mg/dL 12/16/22 12/17/22 12/17/22 Range/Units 21:13 05:59 07:18 RBC (3.80-5.40) m/uL Hgb (11.4-16.0) gm/dL RDW (11.5-15.5) % Potassium 3.4 L (3.5-5.1) mmol/L POC Glucose (mg/dL) 199 H 192 H (70-110) mg/dL 12/17/22 12/17/22 Range/Units 11:42 11:56 RBC 3.70 L (3.80-5.40) m/uL Hgb 11.1 L D (11.4-16.0) gm/dL RDW 18.8 H (11.5-15.5) % Potassium (3.5-5.1) mmol/L POC Glucose (mg/dL) 222 H (70-110) mg/dL Microbiology - Last 24 Hours (Table) 12/15/22 11:12 Blood Culture Gram Stain - Preliminary Blood Blood Culture - Preliminary Strep agalactiae - (group b) 12/15/22 11:12 Blood Culture Gram Stain - Preliminary Blood Blood Culture - Preliminary Strep agalactiae - (group b) 12/15/22 11:12 Wound Culture - Preliminary Foot - Left Gram Neg Bacilli Presumptive Staph aureus Assessment and Plan (1) Allergy to cephalosporin Current Visit: Yes Status: Acute Code(s): Z88.1 - ALLERGY STATUS TO OTHER ANTIBIOTIC AGENTS SNOMED Code(s): 757700122 (2) Cellulitis, leg Current Visit: Yes Status: Acute Code(s): L03.119 - CELLULITIS OF UNSPECIFIED PART OF LIMB SNOMED Code(s): 512638567 (3) Bacteremia Current Visit: No Status: Acute Code(s): R78.81 - BACTEREMIA SNOMED Code(s): 8101339 Plan: 1patient is in the hospital with weakness also have component of left lower extremity cellulitis and did have a small area of swelling possibly infected callus and likely responsible for the cellulitis underlying abscess not entirely excluded 2patient will have a cephalexin ALLERGY that will limit the number of antibiotic safety use 3 CT of the left foot with no evidence of any abscess 4-Streptococcus agalactiae bacteremia source is likely left lower extremity cellulitis, blood culture repeated document clearance 5patient did have a documented cephalexin ALLERGY, patient was not aware of her cephalexin ALLERGY and mention she has recently taken amoxicillin without any problem 6-we will discontinue vancomycin and start the patient on Unasyn 3 g every 6 hours Dictation was produced using [employer] dictation software. please excuse any grammatical, word or spelling errors. Time with Patient: Less than 30
--- NOTE | 2022-12-17 13:30 | P.PN ---
Subjective Progress Note Date: 12/17/22 patient is 82-year-old lady with past medical history significant for atrial fibrillation, CHF, diabetes mellitus presented to the ER because of altered mental status. Patient was all right this morning when she was found to be confused by family. Patient was complaining of pain in her left foot, her left leg was red, redness was extending all the way up to the back of her knee. T here is no swelling of the knee. No history of recent fall. No complaint of fever or chills at home. No loss of appetite. No nausea, vomiting abdominal pain. No chest pain or shortness of breath. Because of this confusion, patient was brought to the ER Initial lab work done in the ER showed WBC 12.2, hemoglobin 14.9, platelet count 196, sodium 133, potassium 3.2, BUN 40, creatinine 0.89, glucose 189, lactate 2.6, troponin 0.116 UA negative for infection Influenza a drug-related Influenza B not detected RSV not detected Covid 19 not detected EKG done in the ER heart rate of 105, no P waves seen, ST segment depression noticeable in V5, V6, no ST segment elevation noticeable X-ray of left foot done showed diffuse swelling of left foot without evidence of any fracture Patient was admitted to medicine service 12/17. Patient seen and examined. Mentation has improved. Left lower extre mity redness is also improved. Patient is afebrile. Vital signs stable REVIEW OF SYSTEMS: CONSTITUTIONAL: No fever, no malaise,. CARDIOVASCULAR: No chest pain, no palpitations, no syncope. PULMONARY: No shortness of breath, no cough, GASTROINTESTINAL: No diarrhea, no nausea, no vomiting, no abdominal pain. NEUROLOGICAL: No headaches, no weakness, PHYSICAL EXAMINATION: GENERAL: The patient is alert and oriented x3, not in any acute distress. Well developed, well nourished. HEENT: Pupils are round and equally reacting to light. EOMI. No scleral icterus. No conjunctival pallor. Normocephalic, atraumatic. No pharyngeal erythema. No thyromegaly. CARDIOVASCULAR: S1 and S2 present. No murmurs, rubs, or gallops. PULMONARY: Chest is clear to auscultation, no wheezing or crackles. ABDOMEN: Soft, nontender, nondistended, normoactive bowel sounds. No palpable organomegaly. MUSCULOSKELETAL: Left lower extremity erythema has improved EXTREMITIES: No cyanosis, clubbing, or pedal edema. NEUROLOGICAL: Gross neurological examination did not reveal any focal deficits. SKIN: No rashes. Assessment and plan Sepsis Acute infectious encephalopathy Left lower extremity cellulitis Lactic acidosis Elevated troponin Insulin-dependent diabetes mellitus Diabetic peripheral neuropathy Hypothyroidism Atrial fibrillation Chronic CHF History of gout Pulmonary hypertension History of MRSA infection Monitor vital signs Monitor CBC Monitor CMP Continue telemetry monitoring Follow-up on blood cultures Continue IV Unasyn Continue wound care Continue pain management Continue current insulin regimen ID following Labs and medication were reviewed.. Continue same treatment. Continue with symptomatic treatment. Resume home medication. Monitor labs and vitals. DVT and GI prophylaxis. Further recommendations as per clinical course of the patient Dictation was produced using [employer] dictation software. please excuse any grammatical, word or spelling errors. Objective - Vital Signs Vital signs: Vital Signs Temp 98.2 F 12/17/22 12:20 Pulse 67 12/17/22 12:20 Resp 16 12/17/22 12:20 BP 130/63 12/17/22 12:20 Pulse Ox 98 12/17/22 12:20 FiO2 Intake & Output 12/16/22 12/17/22 12/17/22 18:59 06:59 18:59 Intake Total 720 118 Output Total 800 Balance -80 118 Weight 113.398 kg Intake: Oral 720 118 Output: Urine 800 Other: Voiding Method External Catheter Bedpan Bedside Commode Diaper Diaper External Catheter # Voids 2 # Bowel Movements 1 - Labs CBC & Chem 7: 12/17/22 11:42 12/16/22 21:13 Labs: Abnormal Lab Results - Last 24 Hours (Table) 12/16/22 12/16/22 12/16/22 Range/Units 08:55 16:53 19:27 RBC (3.80-5.40) m/uL Hgb (11.4-16.0) gm/dL RDW (11.5-15.5) % Potassium 3.0 L (3.5-5.1) mmol/L POC Glucose (mg/dL) 295 H 338 H (70-110) mg/dL 12/16/22 12/17/22 12/17/22 Range/Units 21:13 05:59 07:18 RBC (3.80-5.40) m/uL Hgb (11.4-16.0) gm/dL RDW (11.5-15.5) % Potassium 3.4 L (3.5-5.1) mmol/L POC Glucose (mg/dL) 199 H 192 H (70-110) mg/dL 12/17/22 12/17/22 Range/Units 11:42 11:56 RBC 3.70 L (3.80-5.40) m/uL Hgb 11.1 L D (11.4-16.0) gm/dL RDW 18.8 H (11.5-15.5) % Potassium (3.5-5.1) mmol/L POC Glucose (mg/dL) 222 H (70-110) mg/dL Microbiology - Last 24 Hours (Table) 12/15/22 11:12 Blood Culture Gram Stain - Preliminary Blood Blood Culture - Preliminary Strep agalactiae - (group b) 12/15/22 11:12 Blood Culture Gram Stain - Preliminary Blood Blood Culture - Preliminary Strep agalactiae - (group b) 12/15/22 11:12 Wound Culture - Preliminary Foot - Left Gram Neg Bacilli Presumptive Staph aureus
[2022-12-17] MEDS: VANCOMYCIN 1,750 MG in SODIUM CHLORIDE 0.9% 500 ML 500 ML IVPB SCH (13:46)
[2022-12-17 14:50] LABS: ALT 32 U/L (4-34); AST 37 U/L (14-36); African American GFR (CKD) >90 (>60 ml/min/1.73 sqM); Albumin 2.6 g/dL (3.5-5.0); Alkaline Phosphatase 57 U/L (38-126); Anion Gap 4 mmol/L; Blood Urea Nitrogen 22 mg/dL (7-17); Calcium 8.8 mg/dL (8.4-10.2); Carbon Dioxide 35 mmol/L (22-30); Chloride 96 mmol/L (98-107); Glucose 218 mg/dL (74-99); Magnesium 1.5 mg/dL (1.6-2.3); Non-African American GFR(CKD) 82 (>60 ml/min/1.73 sqM); Potassium 3.5 mmol/L (3.5-5.1); Sodium 135 mmol/L (137-145); Total Bilirubin 0.4 mg/dL (0.2-1.3); Total Protein 5.4 g/dL (6.3-8.2)
[2022-12-17 15:03] LABS: C Reactive Protein 14.8 mg/dL (<1.0)
[2022-12-17 16:37] LABS: Glucose,Whole Blood 283 mg/dL (70-110)
[2022-12-17] MEDS: metFORMIN 500 MG TAB PO SCH (16:59)
[2022-12-17] MEDS: TAMSULOSIN 0.4 MG CAP.ER.24H PO SCH (16:59)
[2022-12-17 19:57] LABS: Glucose,Whole Blood 322 mg/dL (70-110)
[2022-12-17] MEDS: LATANOPROST 0.005% OPHTH DROPS 2.5 ML BTL BOTH EYES SCH (20:11)
[2022-12-17] MEDS: LEVOTHYROXINE 75 MCG TAB PO SCH (22:53)
[2022-12-17] MEDS: traZODone HCL 50 MG TAB PO SCH (22:54)
[2022-12-17] MEDS: methocarbamoL 750 MG TAB PO SCH (22:54)
[2022-12-18] MEDS: HYDROcodone/APAP 5-325MG 1 EACH TAB PO PRN ×3 (03:15→20:58)
[2022-12-18] MEDS: traMADol 50 MG TAB PO PRN ×3 (04:11→21:43)
[2022-12-18 06:28] LABS: Glucose,Whole Blood 246 mg/dL (70-110)
[2022-12-18] MEDS: GABAPENTIN 400 MG CAP PO SCH ×4 (06:33→22:35)
[2022-12-18] MEDS: INSULIN ASPART (NovoLOG) 100 UNIT/ML VIAL SQ SCH ×8 (06:33→20:57)
[2022-12-18] MEDS: AMPICILLIN-SULBACTAM 3 GM in SODIUM CHLORIDE 0.9% 100 ML IVPB SCH ×4 (06:33→22:35)
[2022-12-18] MEDS: INSULIN DETEMIR (LEVEMIR) 100 UNIT/ML SYR SQ SCH ×2 (08:19→20:57)
[2022-12-18] MEDS: predniSONE 10 MG TAB PO SCH (08:21)
[2022-12-18] MEDS: oxyBUTYnin chloride 5 MG TAB PO SCH ×2 (08:21→17:03)
[2022-12-18] MEDS: MAGNESIUM OXIDE 400 MG TAB PO SCH (08:21)
[2022-12-18] MEDS: CALCIUM CARB-VIT D 500 MG-5 MCG TAB PO SCH ×2 (08:21→17:03)
[2022-12-18] MEDS: APIXABAN 5 MG TAB PO SCH ×2 (08:21→17:03)
[2022-12-18] MEDS: LORATADINE 10 MG TAB PO SCH (08:21)
[2022-12-18] MEDS: MULTIVITAMINS, THERA 1 EACH TAB PO SCH (08:21)
[2022-12-18] MEDS: methocarbamoL 750 MG TAB PO SCH (08:21)
[2022-12-18 11:48] LABS: Glucose,Whole Blood 262 mg/dL (70-110)
--- NOTE | 2022-12-18 12:37 | P.PN ---
Subjective Progress Note Date: 12/18/22 patient is 82-year-old lady with past medical history significant for atrial fibrillation, CHF, diabetes mellitus presented to the ER because of altered mental status. Patient was all right this morning when she was found to be confused by family. Patient was complaining of pain in her left foot, her left leg was red, redness was extending all the way up to the back of her knee. T here is no swelling of the knee. No history of recent fall. No complaint of fever or chills at home. No loss of appetite. No nausea, vomiting abdominal pain. No chest pain or shortness of breath. Because of this confusion, patient was brought to the ER Initial lab work done in the ER showed WBC 12.2, hemoglobin 14.9, platelet count 196, sodium 133, potassium 3.2, BUN 40, creatinine 0.89, glucose 189, lactate 2.6, troponin 0.116 UA negative for infection Influenza a drug-related Influenza B not detected RSV not detected Covid 19 not detected EKG done in the ER heart rate of 105, no P waves seen, ST segment depression noticeable in V5, V6, no ST segment elevation noticeable X-ray of left foot done showed diffuse swelling of left foot without evidence of any fracture Patient was admitted to medicine service 12/17. Patient seen and examined. Mentation has improved. Left lower extre mity redness is also improved. Patient is afebrile. Vital signs stable 12/18. Patient seen and examined. Blood sugars were elevated during lunchtime, congested lunchtime dose of NovoLog to 8 units REVIEW OF SYSTEMS: CONSTITUTIONAL: No fever, no malaise,. CARDIOVASCULAR: No chest pain, no palpitations, no syncope. PULMONARY: No shortness of breath, no cough, GASTROINTESTINAL: No diarrhea, no nausea, no vomiting, no abdominal pain. NEUROLOGICAL: No headaches, no weakness, PHYSICAL EXAMINATION: GENERAL: The patient is alert and oriented x3, not in any acute distress. Well developed, well nourished. HEENT: Pupils are round and equally reacting to light. EOMI. No scleral icterus. No conjunctival pallor. Normocephalic, atraumatic. No pharyngeal erythema. No thyromegaly. CARDIOVASCULAR: S1 and S2 present. No murmurs, rubs, or gallops. PULMONARY: Chest is clear to auscultation, no wheezing or crackles. ABDOMEN: Soft, nontender, nondistended, normoactive bowel sounds. No palpable organomegaly. MUSCULOSKELETAL: Left lower extremity erythema has improved EXTREMITIES: No cyanosis, clubbing, or pedal edema. NEUROLOGICAL: Gross neurological examination did not reveal any focal deficits. SKIN: No rashes. Assessment and plan Sepsis Acute infectious encephalopathy Left lower extremity cellulitis Lactic acidosis Elevated troponin Insulin-dependent diabetes mellitus Diabetic peripheral neuropathy Hypothyroidism Atrial fibrillation Chronic CHF History of gout Pulmonary hypertension History of MRSA infection Monitor vital signs Monitor CBC Monitor CMP Continue telemetry monitoring Follow-up on blood cultures Continue Eliquis, digoxin Continue Bumex Continue IV Unasyn Continue wound care Continue Synthroid Monitor blood sugar levels, continue current insulin regimen, lunchtime dose of NovoLog increased to 10 units Continue pain management ID following Labs and medication were reviewed.. Continue same treatment. Continue with symptomatic treatment. Resume home medication. Monitor labs and vitals. DVT and GI prophylaxis. Further recommendations as per clinical course of the patient Dictation was produced using [employer] dictation software. please excuse any grammatical, word or spelling errors. Objective - Vital Signs Vital signs: Vital Signs Temp 97.6 F 12/18/22 07:11 Pulse 67 12/18/22 07:11 Resp 17 12/18/22 07:11 BP 118/58 12/18/22 07:11 Pulse Ox 98 12/18/22 08:03 FiO2 Intake & Output 12/17/22 12/18/22 12/18/22 18:59 06:59 18:59 Intake Total 1018 Output Total 300 Balance 1018 -300 Weight 125.2 kg Intake: Intake, IV Titration 100 Amount Ampicillin-Sulbactam 3 gm 100 In Sodium Chloride 0.9% 100 ml @ 200 mls/hr IVPB Q6HR [facility] Rx#:[id number] Oral 918 Output: Urine 300 Other: Voiding Method Bedside Commode Bedside Commode Diaper Diaper # Voids 3 2 # Bowel Movements 2 1 - Labs CBC & Chem 7: 12/17/22 11:42 12/17/22 11:42 Labs: Abnormal Lab Results - Last 24 Hours (Table) 12/17/22 12/17/22 12/17/22 Range/Units 11:42 11:42 11:56 RBC 3.70 L (3.80-5.40) m/uL Hgb 11.1 L D (11.4-16.0) gm/dL RDW 18.8 H (11.5-15.5) % Sodium 135 L (137-145) mmol/L Chloride 96 L (98-107) mmol/L Carbon Dioxide 35 H (22-30) mmol/L BUN 22 H (7-17) mg/dL Glucose 218 H (74-99) mg/dL POC Glucose (mg/dL) 222 H (70-110) mg/dL Magnesium 1.5 L (1.6-2.3) mg/dL AST 37 H (14-36) U/L C-Reactive Protein 14.8 H (<1.0) mg/dL Total Protein 5.4 L (6.3-8.2) g/dL Albumin 2.6 L (3.5-5.0) g/dL 12/17/22 12/17/22 12/18/22 Range/Units 16:36 19:54 06:27 RBC (3.80-5.40) m/uL Hgb (11.4-16.0) gm/dL RDW (11.5-15.5) % Sodium (137-145) mmol/L Chloride (98-107) mmol/L Carbon Dioxide (22-30) mmol/L BUN (7-17) mg/dL Glucose (74-99) mg/dL POC Glucose (mg/dL) 283 H 322 H 246 H (70-110) mg/dL Magnesium (1.6-2.3) mg/dL AST (14-36) U/L C-Reactive Protein (<1.0) mg/dL Total Protein (6.3-8.2) g/dL Albumin (3.5-5.0) g/dL Microbiology - Last 24 Hours (Table) 12/15/22 11:12 Gram Stain - Final Foot - Left Wound Culture - Final Escherichia coli Methicillin resist S. aureus 12/15/22 11:12 Blood Culture Gram Stain - Preliminary Blood Blood Culture - Preliminary Strep agalactiae - (group b) 12/15/22 11:12 Blood Culture Gram Stain - Preliminary Blood Blood Culture - Preliminary Strep agalactiae - (group b)
[2022-12-18] MEDS: DIGOXIN 125 MCG TAB PO SCH (13:20)
[2022-12-18] MEDS: BUMETANIDE 1 MG TAB PO SCH ×2 (13:43→17:03)
--- NOTE | 2022-12-18 14:49 | P.PN ---
Subjective Progress Note Date: 12/18/22 Principal diagnosis: Left leg cellulitis and bacteremia Patient is a 82-year-old female with a past medical history significant for hypertension hyperlipidemia heart failure with atrial fibrillation osteoarthritis in this patient presenting to the hospital with weakness left lower extremity swelling and redness and did have an infected callus on the plantar aspect of the left foot CT was negative for any abscess blood culture positive for Streptococcus agalactiae patient did have cephalexin ALLERGY. On today's evaluation that is 12/18/2022, the patient remains to be afebrile, the patient is breathing comfortably on room air without the need for supplemental oxygen , the patient denies chest pain or cough, patient denies nausea/vomiting or diarrhea and denies any abdominal pain, the patient left leg swelling redness has decreased in intensity Patient did have white count of 7.0 as of yesterday no lab draw today, blood culture with Streptococcus agalactiae Objective - Vital Signs Vital signs: Vital Signs Temp 97.9 F 12/18/22 13:53 Pulse 74 12/18/22 13:53 Resp 18 12/18/22 13:53 BP 132/61 12/18/22 13:53 Pulse Ox 100 12/18/22 13:53 FiO2 Intake & Output 12/17/22 12/18/22 12/18/22 18:59 06:59 18:59 Intake Total 1018 550 Output Total 300 Balance 1018 -300 550 Weight 125.2 kg Intake: Intake, IV Titration 100 100 Amount Ampicillin-Sulbactam 3 gm 100 100 In Sodium Chloride 0.9% 100 ml @ 200 mls/hr IVPB Q6HR [facility] Rx#:[id number] Oral 918 450 Output: Urine 300 Other: Voiding Method Bedside Commode Bedside Commode Bedside Commode Diaper Diaper Diaper # Voids 3 2 1 # Bowel Movements 2 1 - Exam GENERAL DESCRIPTION: An elderly female lying in bed in no distress RESPIRATORY SYSTEM: Unlabored breathing , clear to auscultation anteriorly HEART: S1 S2 regular rate and rhythm , ABDOMEN: Soft , no tenderness EXTREMITIES: Left leg the redness has slightly decreased in intensity - Labs CBC & Chem 7: 12/17/22 11:42 12/17/22 11:42 Labs: Abnormal Lab Results - Last 24 Hours (Table) 12/17/22 12/17/22 12/17/22 Range/Units 11:42 16:36 19:54 Sodium 135 L (137-145) mmol/L Chloride 96 L (98-107) mmol/L Carbon Dioxide 35 H (22-30) mmol/L BUN 22 H (7-17) mg/dL Glucose 218 H (74-99) mg/dL POC Glucose (mg/dL) 283 H 322 H (70-110) mg/dL Magnesium 1.5 L (1.6-2.3) mg/dL AST 37 H (14-36) U/L C-Reactive Protein 14.8 H (<1.0) mg/dL Total Protein 5.4 L (6.3-8.2) g/dL Albumin 2.6 L (3.5-5.0) g/dL 12/18/22 12/18/22 Range/Units 06:27 11:47 Sodium (137-145) mmol/L Chloride (98-107) mmol/L Carbon Dioxide (22-30) mmol/L BUN (7-17) mg/dL Glucose (74-99) mg/dL POC Glucose (mg/dL) 246 H 262 H (70-110) mg/dL Magnesium (1.6-2.3) mg/dL AST (14-36) U/L C-Reactive Protein (<1.0) mg/dL Total Protein (6.3-8.2) g/dL Albumin (3.5-5.0) g/dL Microbiology - Last 24 Hours (Table) 12/15/22 11:12 Blood Culture Gram Stain - Final Blood Blood Culture - Final Strep agalactiae - (group b) 12/15/22 11:12 Blood Culture Gram Stain - Final Blood Blood Culture - Final Strep agalactiae - (group b) 12/15/22 11:12 Gram Stain - Final Foot - Left Wound Culture - Final Escherichia coli Methicillin resist S. aureus Assessment and Plan (1) Allergy to cephalosporin Current Visit: Yes Status: Acute Code(s): Z88.1 - ALLERGY STATUS TO OTHER ANTIBIOTIC AGENTS SNOMED Code(s): 403246364 (2) Cellulitis, leg Current Visit: Yes Status: Acute Code(s): L03.119 - CELLULITIS OF UNSPECIFIED PART OF LIMB SNOMED Code(s): 598169198 (3) Bacteremia Current Visit: No Status: Acute Code(s): R78.81 - BACTEREMIA SNOMED Code(s): 1250753 Plan: 1patient is in the hospital with weakness also have component of left lower extremity cellulitis and did have a small area of swelling possibly infected callus and likely responsible for the cellulitis underlying abscess not entirely excluded 2patient will have a cephalexin ALLERGY that will limit the number of antibi otic safety use 3 CT of the left foot with no evidence of any abscess 4-Streptococcus agalactiae bacteremia source is likely left lower extremity cellulitis, blood culture repeated document clearance 5patient did have a documented cephalexin ALLERGY, patient has tolerated Unasyn without any problem 6-patient to continue with Unasyn 3 g every 6 hours and hopefully finishing therapy with oral Augmentin Dictation was produced using [employer] dictation software. please excuse any grammatical, word or spelling errors.
[2022-12-18 16:10] LABS: Glucose,Whole Blood 348 mg/dL (70-110)
[2022-12-18] MEDS: metFORMIN 500 MG TAB PO SCH (17:03)
[2022-12-18] MEDS: TAMSULOSIN 0.4 MG CAP.ER.24H PO SCH (17:03)
[2022-12-18 20:32] LABS: Glucose,Whole Blood 408 mg/dL (70-110)
[2022-12-18] MEDS: LATANOPROST 0.005% OPHTH DROPS 2.5 ML BTL BOTH EYES SCH (20:58)
[2022-12-18] MEDS: traZODone HCL 50 MG TAB PO SCH (22:35)
[2022-12-18] MEDS: LEVOTHYROXINE 75 MCG TAB PO SCH (22:35)
[2022-12-18] MEDS ORDERED: MORPHINE SULFATE 2 MG/ML SYRINGE IVP STA (22:48)
[2022-12-19] MEDS: HYDROcodone/APAP 5-325MG 1 EACH TAB PO PRN ×3 (04:19→21:46)
[2022-12-19 05:54] LABS: Glucose,Whole Blood 213 mg/dL (70-110)
[2022-12-19] MEDS: GABAPENTIN 400 MG CAP PO SCH ×4 (06:22→23:58)
[2022-12-19] MEDS: AMPICILLIN-SULBACTAM 3 GM in SODIUM CHLORIDE 0.9% 100 ML IVPB SCH ×4 (06:22→23:37)
[2022-12-19] MEDS: INSULIN ASPART (NovoLOG) 100 UNIT/ML VIAL SQ SCH ×7 (06:22→21:46)
[2022-12-19] MEDS: INSULIN DETEMIR (LEVEMIR) 100 UNIT/ML SYR SQ SCH ×2 (06:22→21:46)
[2022-12-19] MEDS: traMADol 50 MG TAB PO PRN ×3 (08:15→23:37)
[2022-12-19 08:53] LABS: HCT 32.8 % (37.2-46.3); HGB 10.6 d/dL (12.0-15.0); MCH 29.9 pg (27.0-32.0); MCHC 32.3 d/dL (32.0-37.0); MCV 92.4 FL (80.0-97.0); Mean Platelet Volume 9.8 FL (9.5-12.2); NRBC Per 100 WBC 0 X 10*3/uL (0.00-0.01); Platelet Count 136 X 10*3/uL (140-440); RBC 3.55 X 10*6/uL (4.10-5.20); RDW 18.6 % (11.5-14.5); WBC 6.64 X 10*3/uL (4.50-10.00)
[2022-12-19 09:00] LABS: ALT 31 U/L (8-44); AST 30 U/L (13-35); Albumin 3.1 d/dL (3.8-4.9); Albumin/Globulin Ratio 1.19 Ratio (1.60-3.17); Alkaline Phosphatase 64 U/L (41-126); BUN/Creat Ratio 28.12 Ratio (12.00-20.00); Blood Urea Nitrogen 22.5 mg/dL (9.0-27.0); Calcium 9.2 mg/dL (8.7-10.3); Carbon Dioxide 33.7 mmol/L (21.6-31.8); Chloride 96 mmol/L (96-109); Globulin 2.6 d/dL (1.6-3.3); Glucose 202 mg/dL (70-110); Potassium 3.5 mmol/L (3.5-5.5); Sodium 139 mmol/L (135-145); Total Bilirubin 0.3 mg/dL (0.3-1.2); Total Protein 5.7 d/dL (6.2-8.2)
--- NOTE | 2022-12-19 09:08 | P.DS ---
Providers Date of admission: 12/15/22 13:30 Attending physician: Nicholas Hart Consults: 12/15/22 13:21 Consult Physician Routine Consulting Provider: Tg Butts Consult Reason/Comments: sepsis,cellulitis Do you want consulting provider notified?: Yes Primary care physician: Nicholas Hart - Discharge Diagnosis(es) (1) Cellulitis, leg Current Visit: Yes Status: Acute (2) Elevated troponin Current Visit: Yes Status: Acute (3) Sepsis Current Visit: Yes Status: Acute (4) Atrial fibrillation Current Visit: No Status: Acute (5) Back pain Current Visit: No Status: Acute (6) CAD (coronary artery disease) Current Visit: No Status: Acute (7) Diabetes Current Visit: No Status: Acute (8) Generalized weakness Current Visit: No Status: Acute (9) Hypertension Current Visit: No Status: Acute Hospital Course: This is an 82-year-old female admitted for cellulitis with weakness and chronic pain. She was seen and evaluated by infectious disease in the hospital. They're recommending Augmentin at discharge. Patient is anxious to go home, she denies need for rehab at this time. Reports she has been getting up with assistance. Patient is back to baseline and will be discharged home with home care and will continue Augmentin for 10 days. Patient seen and evaluated by nurse practitioner, physician in agreement with plan Patient Condition at Discharge: Fair Plan - Discharge Summary Discharge Rx Participant: Yes New Discharge Prescriptions: New Amoxic-Pot Clav 500-125 mg [Augmentin 500-125 mg] 1 tab PO Q8HR 10 Days #30 tab Continue Latanoprost [Xalatan 0.005%] 1 drop BOTH EYES HS Magnesium Oxide 400 mg PO DAILY Calcium Citrate/Vitamin D3 [Citracal + D Maximum Caplet] 1 tab PO BID@0900,1800 Adalimumab [Humira(Cf) Pen] 40 mg SQ Q14D INSULIN LISPRO (humaLOG) [humaLOG] 8 units SQ AC-SUPPER INSULIN LISPRO (HumaLOG) [humaLOG] 8 units SQ AC-LUNCH metFORMIN HCL [Glucophage] 500 mg PO DAILY@1800 Insulin Glargine [Lantus Vial] 30 unit SQ BID Loratadine [Claritin] 10 mg PO DAILY #30 tab Tamsulosin [Flomax] 0.4 mg PO DAILY@1800 SILVER sulfADIAZINE Cream [Silvadene 1% Cream] 1 applic TOPICAL BID PRN PRN Reason: Skin Irritation Bumetanide [BUMEX] 1 mg PO BID@0900,1800 Levothyroxine Sodium [Synthroid] 150 mcg PO HS@0000 methocarbamoL [Robaxin-750] 750 mg PO DAILY@0000 traZODone HCL [Desyrel] 50 mg PO HS@0000 metOLazone [Zaroxolyn] 2.5 mg PO TUTH predniSONE 10 mg PO DAILY Nitroglycerin Sl Tabs [Nitrostat] 0.4 mg SL Q5M PRN PRN Reason: Chest Pain Digoxin [Lanoxin] 125 mcg PO Q2D INSULIN LISPRO (HumaLOG) [humaLOG] See Protocol SQ AC-TID Multivit-Min/FA/Lycopen/Lutein [Centrum Silver Tablet] 1 tab PO DAILY Gabapentin [Neurontin] 400 mg PO Q6H Apixaban [Eliquis] 5 mg PO BID@0900,1800 Acetaminophen Tab [Tylenol] 650 mg PO Q6HR PRN tab PRN Reason: Mild Pain Or Fever > 100.5 HYDROcodone/APAP 10-325MG [Penitas 10-325] 1 tab PO Q6H oxyBUTYnin chloride [Ditropan] 5 mg PO BID@0900,1800 INSULIN LISPRO (HumaLOG) [humaLOG] 4 units SQ AC-BRKFST Discharge Medication List Latanoprost [Xalatan 0.005%] 1 drop BOTH EYES HS 08/11/17 [History] predniSONE 10 mg PO DAILY 07/23/21 [History] Magnesium Oxide 400 mg PO DAILY 08/30/21 [History] Calcium Citrate/Vitamin D3 [Citracal + D Maximum Caplet] 1 tab PO BID@0900,1800 11/16/21 [History] Digoxin [Lanoxin] 125 mcg PO Q2D 11/16/21 [History] Nitroglycerin Sl Tabs [Nitrostat] 0.4 mg SL Q5M PRN 11/16/21 [History] Adalimumab [Humira(Cf) Pen] 40 mg SQ Q14D 01/09/22 [History] Apixaban [Eliquis] 5 mg PO BID@0900,1800 05/02/22 [History] Gabapentin [Neurontin] 400 mg PO Q6H 05/02/22 [History] INSULIN LISPRO (HumaLOG) [humaLOG] 8 units SQ AC-LUNCH 05/02/22 [History] INSULIN LISPRO (HumaLOG) [humaLOG] See Protocol SQ AC-TID 05/02/22 [History] INSULIN LISPRO (humaLOG) [humaLOG] 8 units SQ AC-SUPPER 05/02/22 [History] Multivit-Min/FA/Lycopen/Lutein [Centrum Silver Tablet] 1 tab PO DAILY 05/02/22 [History] metFORMIN HCL [Glucophage] 500 mg PO DAILY@1800 05/02/22 [History] Insulin Glargine [Lantus Vial] 30 unit SQ BID 05/17/22 [History] Acetaminophen Tab [Tylenol] 650 mg PO Q6HR PRN tab 05/20/22 [Rx] Loratadine [Claritin] 10 mg PO DAILY #30 tab 05/20/22 [Rx] SILVER sulfADIAZINE Cream [Silvadene 1% Cream] 1 applic TOPICAL BID PRN 06/28/22 [History] Tamsulosin [Flomax] 0.4 mg PO DAILY@1800 06/28/22 [History] Bumetanide [BUMEX] 1 mg PO BID@0900,1800 09/02/22 [History] HYDROcodone/APAP 10-325MG [Penitas 10-325] 1 tab PO Q6H 09/02/22 [History] Levothyroxine Sodium [Synthroid] 150 mcg PO HS@0000 09/02/22 [History] methocarbamoL [Robaxin-750] 750 mg PO DAILY@0000 09/02/22 [History] INSULIN LISPRO (HumaLOG) [humaLOG] 4 units SQ AC-BRKFST 12/15/22 [History] metOLazone [Zaroxolyn] 2.5 mg PO TUTH 12/15/22 [History] oxyBUTYnin chloride [Ditropan] 5 mg PO BID@0900,1800 12/15/22 [History] traZODone HCL [Desyrel] 50 mg PO HS@0000 12/15/22 [History] Amoxic-Pot Clav 500-125 mg [Augmentin 500-125 mg] 1 tab PO Q8HR 10 Days #30 tab 12/19/22 [Rx] Follow up Appointment(s)/Referral(s): Nicholas Hart MD [Primary Care Provider] - 1 Week (f/u with Dr. Hart in 1 week) Discharge Disposition: HOME WITH HOME HEALTH SERVICES
[2022-12-19 09:11] LABS: Glucose,Whole Blood 265 mg/dL (70-110)
[2022-12-19] MEDS: MAGNESIUM OXIDE 400 MG TAB PO SCH (09:38)
[2022-12-19] MEDS: MULTIVITAMINS, THERA 1 EACH TAB PO SCH (09:38)
[2022-12-19] MEDS: oxyBUTYnin chloride 5 MG TAB PO SCH ×2 (09:38→17:27)
[2022-12-19] MEDS: BUMETANIDE 1 MG TAB PO SCH ×2 (09:38→17:28)
[2022-12-19] MEDS: CALCIUM CARB-VIT D 500 MG-5 MCG TAB PO SCH ×2 (09:38→17:28)
[2022-12-19] MEDS: predniSONE 10 MG TAB PO SCH (09:38)
[2022-12-19] MEDS: APIXABAN 5 MG TAB PO SCH ×2 (09:38→17:28)
[2022-12-19] MEDS: LORATADINE 10 MG TAB PO SCH (09:38)
[2022-12-19 11:14] LABS: Glucose,Whole Blood 219 mg/dL (70-110)
[2022-12-19 17:09] LABS: Glucose,Whole Blood 345 mg/dL (70-110)
[2022-12-19] MEDS: TAMSULOSIN 0.4 MG CAP.ER.24H PO SCH (17:28)
[2022-12-19] MEDS: metFORMIN 500 MG TAB PO SCH (17:28)
[2022-12-19 20:53] LABS: Glucose,Whole Blood 284 mg/dL (70-110)
[2022-12-19] MEDS: LATANOPROST 0.005% OPHTH DROPS 2.5 ML BTL BOTH EYES SCH (21:48)
[2022-12-19] MEDS: traZODone HCL 50 MG TAB PO SCH (23:34)
[2022-12-19] MEDS: LEVOTHYROXINE 75 MCG TAB PO SCH (23:36)
[2022-12-19] MEDS: methocarbamoL 750 MG TAB PO SCH (23:37)
[2022-12-20] MEDS: ACETAMINOPHEN TAB 325 MG TAB PO PRN (02:09)
[2022-12-20] MEDS: HYDROcodone/APAP 5-325MG 1 EACH TAB PO PRN (03:27)
[2022-12-20 06:35] LABS: Glucose,Whole Blood 218 mg/dL (70-110)
[2022-12-20] MEDS: AMPICILLIN-SULBACTAM 3 GM in SODIUM CHLORIDE 0.9% 100 ML IVPB SCH (06:47)
[2022-12-20] MEDS: traMADol 50 MG TAB PO PRN (06:48)
[2022-12-20] MEDS: GABAPENTIN 400 MG CAP PO SCH (06:48)
[2022-12-20] MEDS: INSULIN ASPART (NovoLOG) 100 UNIT/ML VIAL SQ SCH ×2 (06:49→07:59)
[2022-12-20] MEDS: INSULIN DETEMIR (LEVEMIR) 100 UNIT/ML SYR SQ SCH (06:49)
[2022-12-20] MEDS: CALCIUM CARB-VIT D 500 MG-5 MCG TAB PO SCH (07:59)
[2022-12-20] MEDS: MAGNESIUM OXIDE 400 MG TAB PO SCH (07:59)
[2022-12-20] MEDS: DIGOXIN 125 MCG TAB PO SCH (07:59)
[2022-12-20] MEDS: predniSONE 10 MG TAB PO SCH (07:59)
[2022-12-20] MEDS: APIXABAN 5 MG TAB PO SCH (07:59)
[2022-12-20] MEDS: BUMETANIDE 1 MG TAB PO SCH (08:00)
[2022-12-20] MEDS: oxyBUTYnin chloride 5 MG TAB PO SCH (08:00)
[2022-12-20] MEDS: LORATADINE 10 MG TAB PO SCH (08:00)
[2022-12-20] MEDS: MULTIVITAMINS, THERA 1 EACH TAB PO SCH (08:00)
[2022-12-20 08:17] VITALS: BP 129/61; PULSE 57
[2022-12-20 08:38] VITALS: RESP 17; TEMP 97.7
[2022-12-20] MEDS ORDERED: metOLazone 2.5 MG TAB PO SCH (09:00)
== END 2022-12-20 10:41 | disposition home health service (06) | DRG 871 ==
LOC: EC 10:34 → 3SCARD 13:30 → 4SSUR 12-18 00:57
PROVIDERS: ADMIT Family Medicine; ATTEND Family Medicine
DX: A40.1 Sepsis due to streptococcus, group B (principal); G93.41 Metabolic encephalopathy; I42.8 Other cardiomyopathies; I48.21 Permanent atrial fibrillation; L03.116 Cellulitis of left lower limb; E03.9 Hypothyroidism, unspecified; E11.42 Type 2 diabetes mellitus with diabetic polyneuropathy; E78.5 Hyperlipidemia, unspecified; E83.42 Hypomagnesemia; E87.6 Hypokalemia; G89.29 Other chronic pain; I25.10 Atherosclerotic heart disease of native coronary artery without angina pectoris; I27.20 Pulmonary hypertension, unspecified; I45.10 Unspecified right bundle-branch block; I50.9 Heart failure, unspecified; Z20.822 Contact with and (suspected) exposure to COVID-19; M06.9 Rheumatoid arthritis, unspecified; E66.01 Morbid (severe) obesity due to excess calories; J44.9 Chronic obstructive pulmonary disease, unspecified; M35.00 Sjogren syndrome, unspecified; Z96.1 Presence of intraocular lens; Z96.642 Presence of left artificial hip joint; Z79.01 Long term (current) use of anticoagulants; Z79.4 Long term (current) use of insulin; Z79.84 Long term (current) use of oral hypoglycemic drugs; Z79.890 Hormone replacement therapy; Z79.899 Other long term (current) drug therapy; Z85.820 Personal history of malignant melanoma of skin; Z85.828 Personal history of other malignant neoplasm of skin; Z86.14 Personal history of Methicillin resistant Staphylococcus aureus infection; Z88.1 Allergy status to other antibiotic agents; Z88.5 Allergy status to narcotic agent; Z88.8 Allergy status to other drugs, medicaments and biological substances; Z88.2 Allergy status to sulfonamides; Z68.28 Body mass index [BMI] 28.0-28.9, adult
CPT/HCPCS: 36415; 80053; 81003; 82565; 83036; 83605; 83735; 84132; 84484; 85025; 85027; 85610; 85730; 86140; 87040; 87070; 87077; 87186; 87205; 87636; 93005; 93306; 94760; 96361; 96365; 96366; 96368; 96375; 99285

== ENCOUNTER → 2023-01-05 | Outpatient (CLI) | payer MEDICARE ==
[2023-01-05 10:11] VITALS: BP 94/66; PULSE 66; RESP 15; TEMP 98.6
--- NOTE | 2023-01-05 11:17 | XR ---
EXAMINATION TYPE: XR lumbar spine 2 or 3V DATE OF EXAM: 01/05/2023 COMPARISON: 11/16/2021 HISTORY: Low back pain, fall TECHNIQUE: 5 view lumbar spine FINDINGS: There are 5 lumbar-type vertebral bodies. Pedicle screws and fixation rods are present thro ughout the lumbar spine L2-S1. An old fracture of the fixation narda on the left is present at the L5-S 1 level. Some mild scoliosis remains present Vertebral body heights are preserved. Degenerative disc changes and vacuum disc phenomenon is present L5-S1. There is loss of disc height throughout the lumbar spine. Findings appear stable in comparison. IMPRESSION: 1. No suspicious acute osseous abnormality. 2. Exam is stable from 2021 comparison.
--- NOTE | 2023-01-05 15:02 | P.PAINPG ---
PQRS Measure Charge Sheet Comment: HISTORY OF PRESENT ILLNESS: A 82 yr old wheelchair bound female w at side as a referral from Dr Coronel presents today w severe and chronic LBP x 2 yrs secondary to post laminectomy syndrome for evaluation. Pt states pain level is provoked at 7 /10 in intensity, constant, localized in the lumbar spine, predominantly axial, achy in character without shooting pain. Pain is provoked by standing for periods of 15 min or more. Pain is alleviated by medications ([place] 10/325mg, Neurontin 400mg), topical Biofreeze, Lidoderm, heat, ice, repositioning and rest. Oswestry axial pain score at 36. PMH: OA, aFib, CAD, Cancer, DM II, Hyperlipidemia, HTN, CRF, RA, Hx of Melanoma, Hypothyroid Disorder, Sjogren's Disease PSH: BL Cataract Extraction w Lens Implants, Cervical Fusion, Lumbar Fixation, Breast Surgery, Cholecystectomy, Heart Catheterization, Arthroscopies to L Wrist/ BL Knees BL Ankles/ BL Hips, L Hip Replacement, EGD/ Colonoscopies SH: Former tobacco user, No ETOH use, No illicit drug use FH: Mo- CVA/ Ruptured Bowel. Fa- Aspirative PNA. Sis- Lupus/ at age 35. All: See list Meds: See list REVIEW OF ORGAN SYSTEMS: CONSTITUTIONAL: No fevers or chills. No recent weight loss. NEUROLOGICAL: + numbness and tingling along the distal extremities. No seizure disorders or headaches. MUSCULOSKELETAL: + pain PSYCHIATRIC: Denies current depression or suicidal thoughts. Physical Examinations : Constitutional : Cooperative , not in acute distress . Neurologic : Cranial nerve II to XII intact. No focal neurological deficits. Psychiatric : alert & oriented x 3. Matching mood & appropriate affect. Judgment & insight intact. Musculoskeletal : Cervical Spine Motor strength in the deltoid and biceps: Normal right side. Normal Left side Motor strength biceps and the wrist extensors: Normal right side . Normal left side Motor strength in the triceps muscle: Normal right side. Normal left side Deep tendon reflexes: Normal at the biceps. Normal at Brachioradialis. Normal at triceps Vertebral body tenderness to deep palpation over Cervical facet loading test: positive bilaterally Spurling test: positive bilaterally Neck distraction test: positive bilaterally Minesh sign: positive bilaterally Lumbar spine Motor strength lower extremities ,thigh and legs 5/5 Right side , 5/5 Left side Deep tendon reflexes : Normal Knee Jerk. Normal Ankle Jerk Vertebral body tenderness over [place] Test positive Lumbar facet Loading Test: positive Right / positive Left Range of motion of the lumbar spine Flexion 30 degrees, extension 10 degrees Straight Leg Raise test: Left/ Right positive at degree Lindsey test: positive right / positive left. Severe tenderness over the Sacroiliac joint on the Right / Left sides Gaenslen test: positive bilaterally Seated flexion test: positive bilaterally. Sacral spine : Severe tenderness over the Sacroiliac joint: right side / left side Range of motion: Flexion of the lumbar spine <60 degrees Range of motion: Extension of the lumbar spine <20 degrees Gaenslen's Test positive Lindsey test: positive right side / left side Thigh Thrust Test Sacral Thrust Test Imaging: None on file Assessment/ Plan : Lumbar post laminectomy syndrome Recommendation of lumbar x ray M51.36 and medication management. Percocet 7.5/325mg #120, Neurontin 400mg #120 w 1 RF. Narcotic/ opiate agreement signed 01/05/23 Use, side effects, adverse reactions and safe storage discussed. Pt and at side acknowledged understanding. All questions answered. I have spent greater than 30 minutes on patient care today. Dr Robles was available by phone for the evaluation of this patient. The time was used to review the medical records including relevant urine studies and Prescription history (MAPs), review of the available imaging, evaluation and examination of the patient, coordination of care with the medical staff and if applicable referring physicians, as well as creation of the medical record PQRS Narrative: Smoking Status Former smoker Home Medications: Ambulatory Orders Latanoprost [Xalatan 0.005%] 1 drop BOTH EYES HS 08/11/17 predniSONE 10 mg PO DAILY 07/23/21 Magnesium Oxide 400 mg PO DAILY 08/30/21 Calcium Citrate/Vitamin D3 [Citracal + D Maximum Caplet] 1 tab PO BID@0900,1800 11/16/21 Digoxin [Lanoxin] 125 mcg PO Q2D 11/16/21 Nitroglycerin Sl Tabs [Nitrostat] 0.4 mg SL Q5M PRN 11/16/21 Adalimumab [Humira(Cf) Pen] 40 mg SQ Q14D 01/09/22 Apixaban [Eliquis] 5 mg PO BID@0900,1800 05/02/22 INSULIN LISPRO (HumaLOG) [humaLOG] 8 units SQ AC-LUNCH 05/02/22 INSULIN LISPRO (HumaLOG) [humaLOG] See Protocol SQ AC-TID 05/02/22 INSULIN LISPRO (humaLOG) [humaLOG] 8 units SQ AC-SUPPER 05/02/22 Multivit-Min/FA/Lycopen/Lutein [Centrum Silver Tablet] 1 tab PO DAILY 05/02/22 metFORMIN HCL [Glucophage] 500 mg PO DAILY@1800 05/02/22 Insulin Glargine [Lantus Vial] 30 unit SQ BID 05/17/22 Acetaminophen Tab [Tylenol] 650 mg PO Q6HR PRN tab 05/20/22 Loratadine [Claritin] 10 mg PO DAILY #30 tab 05/20/22 SILVER sulfADIAZINE Cream [Silvadene 1% Cream] 1 applic TOPICAL BID PRN 06/28/22 Tamsulosin [Flomax] 0.4 mg PO DAILY@1800 06/28/22 Bumetanide [BUMEX] 1 mg PO BID@0900,1800 09/02/22 Levothyroxine Sodium [Synthroid] 150 mcg PO HS@0000 09/02/22 methocarbamoL [Robaxin-750] 750 mg PO DAILY@0000 09/02/22 INSULIN LISPRO (HumaLOG) [humaLOG] 4 units SQ AC-BRKFST 12/15/22 metOLazone [Zaroxolyn] 2.5 mg PO TUTH 12/15/22 oxyBUTYnin chloride [Ditropan] 5 mg PO BID@0900,1800 12/15/22 traZODone HCL [Desyrel] 50 mg PO HS@0000 12/15/22 Amoxic-Pot Clav 500-125 mg [Augmentin 500-125 mg] 1 tab PO Q8HR 10 Days #30 tab 12/19/22 Gabapentin [Neurontin] 400 mg PO Q6H 30 Days #120 cap 01/05/23 oxyCODONE-APAP 7.5-325MG [Percocet 7.5-325 mg] 1 tab PO Q6HR PRN 30 Days #120 tab 01/05/23 oxyCODONE-APAP 7.5-325MG [Percocet 7.5-325 mg] 1 tab PO Q6HR PRN 30 Days #120 tab 01/05/23 Controlled Substance Measures - Controlled Substance Measures Is patient prescribed a controlled substance at discharge?: Yes When asked, does pt state using other controlled substances?: No If prescribed controlled substance>3 days was MAPS reviewed?: Yes If Rx opioid, was Start Talking consent form obtained?: Yes Was information provided regarding opioid addiction?: Yes
== END ==
LOC: PNWHC3 09:12
PROVIDERS: ATTEND Specialist
DX: M51.36 Other intervertebral disc degeneration, lumbar region (principal); M47.816 Spondylosis without myelopathy or radiculopathy, lumbar region; M96.1 Postlaminectomy syndrome, not elsewhere classified; M19.90 Unspecified osteoarthritis, unspecified site; I25.10 Atherosclerotic heart disease of native coronary artery without angina pectoris; E78.5 Hyperlipidemia, unspecified; M06.9 Rheumatoid arthritis, unspecified; E07.9 Disorder of thyroid, unspecified; M35.00 Sjogren syndrome, unspecified; E11.22 Type 2 diabetes mellitus with diabetic chronic kidney disease; I12.9 Hypertensive chronic kidney disease with stage 1 through stage 4 chronic kidney disease, or unspecified chronic kidney disease; N18.9 Chronic kidney disease, unspecified; I48.91 Unspecified atrial fibrillation; Z85.820 Personal history of malignant melanoma of skin; Z87.891 Personal history of nicotine dependence; Z79.84 Long term (current) use of oral hypoglycemic drugs; Z79.899 Other long term (current) drug therapy; Z79.4 Long term (current) use of insulin; Z79.01 Long term (current) use of anticoagulants; Z91.048 Other nonmedicinal substance allergy status; Z88.1 Allergy status to other antibiotic agents; Z91.09 Other allergy status, other than to drugs and biological substances; Z88.2 Allergy status to sulfonamides; Z88.8 Allergy status to other drugs, medicaments and biological substances; Z79.890 Hormone replacement therapy
CPT/HCPCS: 72100; G0463; 99211

== ENCOUNTER 2023-01-14 14:21 | Inpatient (IN) | payer MEDICARE ==
--- NOTE | 2023-01-14 15:13 | ED ---
Chest Pain HPI - General Chief Complaint: Chest Pain Stated Complaint: CHEST PAIN Time Seen by Provider: 01/14/23 15:05 Source: patient, EMS, RN notes reviewed, old records reviewed Mode of arrival: EMS Limitations: no limitations - History of Present Illness Initial Comments: This is a 82-year-old female to the emergency department today for evaluation. Patient presents for evaluation of a near syncopal event unresponsiveness per both EMS and patient's . Her allegedly called EMS as patient was not responding. Patient himself is without complaint here in the ER MD Complaint: chest pain -: hour(s) Onset: during rest, during exertion Pain Location: substernal, left chest Pain Radiation: none Severity: mild Severity scale (1-10): 2 Quality: tightness Consistency: constant Improves With: nothing Worsens With: nothing Anginal Symptoms: dyspnea Other Symptoms: palpitations Treatments Prior to Arrival: none - Related Data Home Medications Medication Instructions Recorded Confirmed Latanoprost [Xalatan 0.005%] 1 drop BOTH EYES HS 08/11/17 01/14/23 predniSONE 10 mg PO DAILY 07/23/21 01/14/23 Magnesium Oxide 400 mg PO DAILY 08/30/21 01/14/23 Calcium Citrate/Vitamin D3 1 tab PO BID@0900,1800 11/16/21 01/14/23 [Citracal + D Maximum Caplet] Digoxin [Lanoxin] 125 mcg PO Q2D 11/16/21 01/14/23 Nitroglycerin Sl Tabs [Nitrostat] 0.4 mg SL Q5M PRN 11/16/21 01/14/23 Adalimumab [Humira(Cf) Pen] 40 mg SQ Q14D 01/09/22 01/14/23 Apixaban [Eliquis] 5 mg PO BID@0900,1800 05/02/22 01/14/23 INSULIN LISPRO (HumaLOG) [humaLOG] 8 units SQ AC-LUNCH 05/02/22 01/14/23 INSULIN LISPRO (HumaLOG) [humaLOG] See Protocol SQ AC-TID 05/02/22 01/14/23 INSULIN LISPRO (humaLOG) [humaLOG] 8 units SQ AC-SUPPER 05/02/22 01/14/23 Multivit-Min/FA/Lycopen/Lutein 1 tab PO DAILY 05/02/22 01/14/23 [Centrum Silver Tablet] metFORMIN HCL [Glucophage] 500 mg PO DAILY@1800 05/02/22 01/14/23 Insulin Glargine [Lantus Vial] 30 unit SQ BID 05/17/22 01/14/23 SILVER sulfADIAZINE Cream 1 applic TOPICAL BID PRN 06/28/22 01/14/23 [Silvadene 1% Cream] Tamsulosin [Flomax] 0.4 mg PO DAILY@1800 06/28/22 01/14/23 Bumetanide [BUMEX] 1 mg PO BID@0900,1800 09/02/22 01/14/23 Levothyroxine Sodium [Synthroid] 150 mcg PO HS@0000 09/02/22 01/14/23 methocarbamoL [Robaxin-750] 750 mg PO DAILY@0000 09/02/22 01/14/23 INSULIN LISPRO (HumaLOG) [humaLOG] 4 units SQ AC-BRKFST 12/15/22 01/14/23 oxyBUTYnin chloride [Ditropan] 5 mg PO BID@0900,1800 12/15/22 01/14/23 traZODone HCL [Desyrel] 50 mg PO HS@0000 12/15/22 01/14/23 Gabapentin [Neurontin] 400 mg PO QID@00,06,12,18 01/14/23 01/14/23 Previous Rx's Medication Instructions Recorded Acetaminophen Tab [Tylenol] 650 mg PO Q6HR PRN tab 05/20/22 Loratadine [Claritin] 10 mg PO DAILY #30 tab 05/20/22 oxyCODONE-APAP 7.5-325MG [Percocet 1 tab PO Q6HR PRN 30 Days #120 tab 01/05/23 7.5-325 mg] Allergies Allergy/AdvReac Type Severity Reaction Status Date / Time adhesive Allergy Rash/Hives Verified 01/14/23 18:15 cephalexin [From Keflex] Allergy Rash/Hives Verified 01/14/23 18:15 grass pollen Allergy Unknown Verified 01/14/23 18:15 mold Allergy Unknown Verified 01/14/23 18:15 Sulfa (Sulfonamide Allergy Rash/Hives Verified 01/14/23 18:15 Antibiotics) newspaper ink Allergy Mild Unknown Uncoded 01/14/23 14:36 Review of Systems ROS Statement: Those systems with pertinent positive or pertinent negative responses have been documented in the HPI. ROS Other: All systems not noted in ROS Statement are negative. EKG Findings - EKG Comments: EKG Findings:: EKG is A. fib 80 QRS 125 QTc 453 - EKG Results: EKG: interpreted by BONIFACIO Past Medical History Past Medical History: Atrial Fibrillation, Coronary Artery Disease (CAD), Cancer, Diabetes Mellitus, Hyperlipidemia, Hypertension, Musculoskeletal Disorder, Neurologic Disorder, Osteoarthritis (OA), Pneumonia, Renal Disease, Rh eumatoid Arthritis (RA), Skin Disorder, Thyroid Disorder Additional Past Medical History / Comment(s): Morbid obesity, chronic atrial fibrillation, diabetes mellitus type 2, hypertension, hyperlipidemia, spinal stenosis, osteoarthritis, hypothyroidism, hypertension, history of skin melanoma, history of bursitis with MRSA post I&D, rheumatoid arthritis, Sjogren's disease, 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 without any indication of ILD related to RA, Fall on July 22 transfer to [facility] for MRI, then Fall on 11/16/21 History of Any Multi-Drug Resistant Organisms: MRSA Date of last positivie culture/infection: 09/02/22 MDRO Source:: Right Leg Past Surgical History: Back Surgery, Breast Surgery, Cholecystectomy, Heart Catheterization, Joint Replacement, Orthopedic Surgery Additional Past Surgical History / Comment(s): Bilateral cataracts with lens implants, arthroscopies to lt wrist, gualberto knees, gualberto ankles, gualberto hips, lt hip replacment and redone, L/R shoulder sxs, rt breast bx-benign, egd/colonoscopy, skin cancer removal L arm, Lumbar fixnation possible broken Past Anesthesia/Blood Transfusion Reactions: No Reported Reaction Additional Past Anesthesia/Blood Transfusion Reaction / Comment(s): Pt has been told not to have anesthesia metabolized by the kidneys and has neurologic Sjogren's with post anesthesia paralysis. Past Psychological History: No Psychological Hx Reported Smoking Status: Former smoker - Past Family History Mother Family Medical History: CVA/TIA Additional Family Medical History / Comment(s): RUPTURED BOWEL Father Family Medical History: Cancer, Pneumonia Additional Family Medical History / Comment(s): ASPIRATIVE PNA Sister(s) Additional Family Medical History / Comment(s): at age 34 with lupus General Exam Limitations: no limitations General appearance: alert, in no apparent distress Head exam: Present: atraumatic, normocephalic, normal inspection Eye exam: Present: normal appearance, PERRL, EOMI. Absent: scleral icterus, conjunctival injection, periorbital swelling ENT exam: Present: normal exam, mucous membranes moist Neck exam: Present: normal inspection. Absent: tenderness, meningismus, lymphadenopathy Respiratory exam: Present: normal lung sounds bilaterally. Absent: respiratory distress, wheezes, rales, rhonchi, stridor Cardiovascular Exam: Present: regular rate, normal rhythm, normal heart sounds. Absent: systolic murmur, diastolic murmur, rubs, gallop, clicks GI/Abdominal exam: Present: soft, normal bowel sounds. Absent: distended, tenderness, guarding, rebound, rigid Extremities exam: Present: normal inspection, full ROM, normal capillary refill. Absent: tenderness, pedal edema, joint swelling, calf tenderness Back exam: Present: normal inspection Neurological exam: Present: alert, oriented X3, CN II-XII intact Psychiatric exam: Present: normal affect, normal mood Skin exam: Present: warm, dry, intact, normal color. Absent: rash Course Vital Signs 01/14/23 01/14/23 01/14/23 14:29 16:48 18:40 Temperature 97.7 F 98.0 F Pulse Rate 86 75 79 Respiratory 20 18 20 Rate Blood Pressure 107/76 143/55 165/59 O2 Sat by Pulse 96 99 98 Oximetry 01/14/23 19:39 Temperature Pulse Rate 84 Respiratory 18 Rate Blood Pressure 137/56 O2 Sat by Pulse 99 Oximetry - Reevaluation(s) Reevaluation #1: 01/14/23 17:29 Attic record is reviewed Reevaluation #2: 01/14/23 17:30 Patient symptoms unchanged here in the ER but no recurrent syncopal event Reevaluation #3: 01/14/23 17:30 Patient informed results and questions answered Studies Chest x-rays negative for acute disease Reevaluation #4: 01/14/23 17:30 Was pt. sent in by a medical professional or institution (, PA, ANIMAL [employer] ENF[employer]CEMENT OFFICER, urgent care, hospital, or longterm...) When possible be specific @ -no Did you speak to anyone other than the patient for history (EMS, parent, family, police, friend...)? What history was obtained from this source @ -no Did you review nursing and triage notes (agree or disagree)? Why? @ -agree Are old charts reviewed (outside hosp., previous admission, EMS record, old EKG, old radiological studies, urgent care reports/EKG's, longterm records)? Report findings @ -yes Differential Diagnosis (chest pain, altered mental status, abdominal pain women, abdominal pain men, vaginal bleeding, weakness, fever, dyspnea, syncope, headache, dizziness, GI bleed, back pain, seizure, CVA, palpatations, mental health, musculoskeletal)? @ -prior EKG interpreted by me (3pts min.). @ -yes X-rays interpreted by me (1pt min.). @ -yes CT interpreted by me (1pt min.). @ -no U/S interpreted by me (1pt. min.). @ -no What testing was considered but not performed or refused? (CT, X-rays, U/S, labs)? Why? @ -none What meds were considered but not given or refused? Why? @ -none Did you discuss the management of the patient with other professionals (professionals i.e. , PA, [employer]CEMENT OFFICER, lab, RT, psych nurse, geriatric social work professor, gas line installer supervisor, teacher, fire prevention officer, telehealth case manager)? Give summary @ -no Was smoking cessation discussed for >3mins.? @ -no Was critical care preformed (if so, how long)? @ -no Were there social determinants of health that impacted care today? How? (Homelessness, low income, unemployed, alcoholism, drug addiction, transportation, low edu. Level, literacy, decrease access to med. care, nursing home, rehab)? @ -none Was there de-escalation of care discussed even if they declined (Discuss DNR or withdrawal of care, Hospice)? DNR status @ -no What co-morbidities impacted this encounter? (DM, HTN, Smoking, COPD, CAD, Cancer, CVA, ARF, Chemo, Hep., AIDS, mental health diagnosis, sleep apnea, morbid obesity)? @ -none Was patient admitted / discharged? Hospital course, mention meds given and route, prescriptions, significant lab abnormalities, going to OR and other pertinent info. @ - 82 female to to the person department for evaluation of weakness and a near syncopal event and unresponsiveness per the . EMS was called patient's brought to the ER to have some electrolyte arrangements low potassium history of same and elevated troponin. Patient be admitted for near syncopal electrolyte replacement Admitted Undiagnosed new problem with uncertain prognosis? @ -no Drug Therapy requiring intensive monitoring for toxicity (Heparin, Nitro, Insulin, Cardizem)? @ -no Were any procedures done? @ -no Diagnosis/symptom? @ -Near-syncope, elevated troponin Acute, or Chronic, or Acute on Chronic? @ -Acute Uncomplicated (without systemic symptoms) or Complicated (systemic symptoms)? @ -Complicated Side effects of treatment? @ -no Exacerbation, Progression, or Severe Exacerbation? @ -exacerbation Poses a threat to life or bodily function? How? (Chest pain, USA, DE, pneumonia, PE, COPD, DKA, ARF, appy, cholecystitis, CVA, Diverticulitis, Homicidal, Suicidal, threat to staff... and all critical care pts) @ -yes Reevaluation #5: 01/14/23 17:30 Differential Syncope: Valvular disease, hypertrophic cardiomyopathy, pulmonary embolism, tamponade, tachycardia, bradycardia, DE, hypovolemia, hemorrhage, dissection, anemia, intracranial hemorrhage, seizure, hypoglycemia, carbon monoxide poisoning, this is not meant to be an all-inclusive list. - Consultations Consultation #1: Spoke with [facility] to agrees to admit this patient Chest Pain MDM - MDM 82 female to to the person department for evaluation of weakness and a near syncopal event and unresponsiveness per the . EMS was called patient's brought to the ER to have some H arrangements low potassium history of same and elevated troponin. Patient be admitted for near syncopal electrolyte replacement Disposition Clinical Impression: Atypical chest pain, Generalized weakness, Hypokalemia, Near syncope, Elevated troponin Disposition: ADMITTED IP TO THIS HOSP Condition: Fair Is patient prescribed a controlled substance at d/c from ED?: No Time of Disposition: 17:20
[2023-01-14 15:30] LABS: Anisocytosis Slight; Basophils % (A) 0 %; Eosinophils # (A) 0.4 k/uL (0-0.7); Eosinophils % (A) 4 %; HCT 36.1 % (34.0-46.0); HGB 12.4 gm/dL (11.4-16.0); Lymphocytes # (A) 1.4 k/uL (1.0-4.8); Lymphocytes % (A) 14 %; MCH 31.8 pg (25.0-35.0); MCHC 34.3 g/dL (31.0-37.0); MCV 92.6 fL (80.0-100.0); Mean Platelet Volume 7.8; Monocytes # (A) 0.6 k/uL (0-1.0); Monocytes % (A) 6 %; Neutrophils # (A) 7.2 k/uL (1.3-7.7); Neutrophils % (A) 73 %; Platelet Count 141 k/uL (150-450); Poikilocytosis Slight; RDW 16.8 % (11.5-15.5); WBC 9.9 k/uL (3.8-10.6)
[2023-01-14 15:42] LABS: ALT 33 U/L (4-34); AST 51 U/L (14-36); African American GFR (CKD) 79 (>60 ml/min/1.73 sqM); Albumin 3.5 g/dL (3.5-5.0); Alkaline Phosphatase 74 U/L (38-126); Anion Gap 11 mmol/L; Blood Urea Nitrogen 40 mg/dL (7-17); Calcium 10.1 mg/dL (8.4-10.2); Chloride 80 mmol/L (98-107); Glucose 307 mg/dL (74-99); Lipase 29 U/L (23-300); Magnesium 1.8 mg/dL (1.6-2.3); Non-African American GFR(CKD) 69 (>60 ml/min/1.73 sqM); Sodium 131 mmol/L (137-145); Total Protein 6.6 g/dL (6.3-8.2)
[2023-01-14 15:45] LABS: Partial Thromboplastin Time 22.7 sec (22.0-30.0)
[2023-01-14 15:50] LABS: NT-Pro-B-Type Natriuretic Pept 878 pg/mL
[2023-01-14 15:55] LABS: Carbon Dioxide 40 mmol/L (22-30); Potassium 2.5 mmol/L (3.5-5.1)
--- NOTE | 2023-01-14 16:17 | XR ---
EXAMINATION TYPE: XR chest 2V DATE OF EXAM: 01/14/2023 COMPARISON: 06/27/2022 HISTORY: Chest pain TECHNIQUE: Frontal and lateral views of the chest are obtained. FINDINGS: There is mild cephalization of the pulmonary vasculature indicating mild pulmonary vascular congestio n. There is probable mild interstitial edema. There is no airspace consolidation or edema. Heart size normal. There is no pneumothorax or pleural effusion. The osseous structures are intact. IMPRESSION: Findings most consistent with mild CHF. Clinical correlation recommended.
[2023-01-14] MEDS ORDERED: ONDANSETRON 4 MG/2 ML VIAL IVP PRN (17:15)
[2023-01-14] MEDS ORDERED: NALOXONE 0.4 MG/ML 1 ML VIAL IV PRN (17:15)
[2023-01-14] MEDS ORDERED: POTASSIUM BICARBONATE/CIT AC 20 MEQ TABLET.EFF PO ONE (17:15)
[2023-01-14] MEDS: SODIUM CHLORIDE 0.9% 1,000 ML IV SCH (18:32)
[2023-01-14] MEDS: POTASSIUM BICARBONATE/CIT AC 20 MEQ TABLET.EFF PO SCH ×2 (18:32→18:35)
[2023-01-14] MEDS: MORPHINE SULFATE 4 MG/ML SYRINGE IV PRN ×2 (19:45→23:54)
[2023-01-14 21:46] LABS: Glucose,Whole Blood 456 mg/dL (70-110)
[2023-01-14] MEDS: INSULIN ASPART (NovoLOG) 100 UNIT/ML VIAL SQ SCH (22:16)
[2023-01-15] MEDS: MORPHINE SULFATE 4 MG/ML SYRINGE IV PRN ×3 (03:48→22:14)
[2023-01-15 06:14] LABS: Glucose,Whole Blood 303 mg/dL (70-110)
[2023-01-15] MEDS: INSULIN ASPART (NovoLOG) 100 UNIT/ML VIAL SQ SCH ×5 (06:21→21:23)
[2023-01-15] MEDS ORDERED: INSULIN DETEMIR (LEVEMIR) 100 UNIT/ML SYR SQ SCH (07:00)
[2023-01-15 07:12] LABS: Anisocytosis Slight; Basophils % (A) 1 %; Eosinophils # (A) 0.4 k/uL (0-0.7); Eosinophils % (A) 5 %; HCT 38.7 % (34.0-46.0); HGB 12.9 gm/dL (11.4-16.0); Lymphocytes # (A) 2.5 k/uL (1.0-4.8); Lymphocytes % (A) 30 %; MCH 31.5 pg (25.0-35.0); MCHC 33.5 g/dL (31.0-37.0); MCV 94.3 fL (80.0-100.0); Mean Platelet Volume 7.5; Monocytes # (A) 0.5 k/uL (0-1.0); Monocytes % (A) 6 %; Neutrophils # (A) 4.6 k/uL (1.3-7.7); Neutrophils % (A) 57 %; Platelet Count 160 k/uL (150-450); Poikilocytosis Slight; WBC 8.2 k/uL (3.8-10.6)
[2023-01-15] MEDS ORDERED: Potassium Replacement Protocol 1 EACH MISC MISCELLANE PRN ×2 (07:16→11:21)
[2023-01-15 07:17] LABS: ALT 34 U/L (4-34); AST 45 U/L (14-36); African American GFR (CKD) 90 (>60 ml/min/1.73 sqM); Albumin 3.6 g/dL (3.5-5.0); Alkaline Phosphatase 77 U/L (38-126); Blood Urea Nitrogen 29 mg/dL (7-17); Calcium 9.9 mg/dL (8.4-10.2); Chloride 83 mmol/L (98-107); Glucose 294 mg/dL (74-99); Magnesium 1.9 mg/dL (1.6-2.3); Non-African American GFR(CKD) 78 (>60 ml/min/1.73 sqM); Potassium 2.8 mmol/L (3.5-5.1); Sodium 133 mmol/L (137-145); Total Bilirubin 0.9 mg/dL (0.2-1.3); Total Protein 6.8 g/dL (6.3-8.2)
[2023-01-15 07:23] LABS: Anion Gap 12 mmol/L; Carbon Dioxide 38 mmol/L (22-30)
[2023-01-15] MEDS: POTASSIUM CHLORIDE ER 20 MEQ TAB.ER PO SCH ×3 (07:23→12:15)
[2023-01-15] MEDS ORDERED: INSULIN ASPART (NovoLOG) 100 UNIT/ML VIAL SQ SCH (07:30)
[2023-01-15] MEDS ORDERED: PANTOPRAZOLE 40 MG/10 ML VIAL IV SCH (09:00)
[2023-01-15] MEDS: SODIUM CHLORIDE 0.9% 1,000 ML IV SCH (09:39)
[2023-01-15] MEDS ORDERED: ACETAMINOPHEN TAB 325 MG TAB PO PRN (11:19)
[2023-01-15] MEDS ORDERED: Magnesium Replacement Protocol 1 EACH MISC MISCELLANE PRN (11:21)
[2023-01-15 11:42] LABS: Glucose,Whole Blood 345 mg/dL (70-110)
[2023-01-15] MEDS: GABAPENTIN 400 MG CAP PO SCH ×3 (12:16→23:55)
[2023-01-15] MEDS: MAGNESIUM OXIDE 400 MG TAB PO SCH (12:16)
[2023-01-15] MEDS: predniSONE 10 MG TAB PO SCH (12:16)
[2023-01-15] MEDS: oxyCODONE-APAP 7.5-325MG 1 EACH TAB PO PRN (12:16)
--- NOTE | 2023-01-15 12:19 | HP ---
HISTORY AND PHYSICAL CHIEF COMPLAINT: Near-syncope, weakness. HISTORY OF PRESENT ILLNESS: This 82-year-old woman with past medical history of multiple problems including atrial fibrillation, CAD, diabetes mellitus type 2, was complaining of generalized weakness and tiredness. The patient apparently had near syncopal events with unresponsiveness and the EMS was called. The patient came to [facility] for further evaluation and treatment. In the ER, the patient was severely dehydrated and potassium was found to be extremely low at 2.5. The patient is already taking Lasix at home. Troponins elevated up to 0.060. There is no history of any chest pain per se. The initial EKG shows diffuse ST-T changes and the chest x-ray showed some increased vascularity. There is no history of fever, rigors, or chills. PAST MEDICAL HISTORY: Reviewed include atrial fibrillation, CAD, diabetes mellitus. Rest of history and rest of the chart is also reviewed. HOME MEDICATIONS: Reviewed include Macrobid. Dose and rest of medications noted. ALLERGIES: Reviewed include also noted. FAMILY HISTORY: History of CVA, TIA. SOCIAL HISTORY: No history of smoking. REVIEW OF SYSTEMS: 14-point review of systems is negative except as mentioned earlier. PHYSICAL EXAMINATION: VITAL SIGNS: Pulse 68, blood pressure 130/69, respirations 18. HEENT: Conjunctivae normal. NECK: No JVD. CARDIOVASCULAR: S1, S2. RESPIRATIONS: Few scattered rhonchi. ABDOMEN: Soft. LEGS: No mass palpable on legs. No edema, no swelling. NERVOUS SYSTEM: Nonfocal. SKIN: No ulcers or rashes. JOINTS: No active deforming arthropathy. LABORATORY DATA: Reviewed. ASSESSMENT: 1. Dehydration, possibly prerenal dehydration. 2. Severe hypokalemia. 3. Generalized weakness. 4. Hyponatremia. 5. Troponin 0.060. Rule out acute vhe-HZ-bgaetdp-elevation myocardial infarction. 6. History of atrial fibrillation. 7. History of coronary artery disease. 8. Diabetes mellitus, type 2. 9. . 10.Multiple complex medical issues. RECOMMENDATIONS AND DISCUSSION: This is an 82-year-old woman, who presented with multiple complex medical issues. We will monitor the patient closely. We will recommend IV fluids with potassium. Replace potassium. Check magnesium and supplement potassium. Also, recommend 2D echo with Doppler and continue to monitor. Prognosis guarded because of multiple complex medical issues. Further recommendations to follow. See orders for details. MMODL / IJN: [id number] / BRIJESH
[2023-01-15] MEDS: 0.9% NACL WITH KCL 40 MEQ/L 1,000 ML IV SCH (12:55)
--- NOTE | 2023-01-15 13:11 | P.CRDCN ---
History of Present Illness Consult date: 01/15/23 Consult reason: atrial fibrillation History of present illness: The patient is an 82-year-old female who presented to the hospital after experiencing a syncopal episode. The patient follows with Dr. George in the office and has multiple comorbid conditions including atrial fibrillation, coronary artery disease, diabetes, hypertension, and morbid obesity. She was found unresponsive at home when EMS was called. She was found to be hypokalemic on arrival. Cardiology was consulted for syncope and elevated troponins. DIAGNOSTICS: EKG shows persistent atrial fibrillation Chest x-ray shows mild pulmonary vascular congestion. Probable mild in terstitial edema Echo in November 2022 shows preserved LV function with LVH, RV hypertrophy with mild enlargement and elevated RVSP at 40 mmHg. Moderate mitral regurgitation also noted. Lab data: WBC 8.2, hemoglobin 12.9, hematocrit 30.7, platelet 160, sodium 133, potassium 2.8, BUN 29, creatinine 0.73, magnesium 1.9, AST 45, ALT 34, troponin 0.06, 0.05, 0.06, BNP 878 REVIEW OF SYSTEMS: No fever or chills. No cough or expectoration. No diaphoresis. Patient denies headache, dizziness, blurred vision, double vision. Patient denies any stomach discomfort. No nausea, vomiting. No hematochezia. No hematemesis. Denies any black stools or blood in his stools. Denies dysuria or hematuria. No muscle weakness or numbness. PHYSICAL EXAMINATION: This is a 82-year-old female in no apparent distress at the time of my examination. HEENT: Head is atraumatic, normocephalic. Pupils are equal, round. There is no jugular venous distention. No carotid bruit is heard. CHEST EXAMINATION: Lungs are clear to auscultation. No chest wall tenderness is noted on palpation or with deep breathing. HEART EXAMINATION: Irregular rate and rhythm. S1, S2 heard. Soft systolic murmur. No gallops or rub. ABDOMEN: Soft, nontender. Bowel sounds are heard. No organomegaly noted. EXTREMITIES: 2+ peripheral pulses. +1 lower extremity edema. Healing cellulitis from admission back in November. NEUROLOGIC EXAMINATION: Patient is awake, alert and oriented x3. FINAL ASSESSMENT AND PLAN: Syncope and collapse PLAN: Discontinue metolazone Continue gentle rehydration Consider adding spironolactone in the future as she has developed hypokalemia Check orthostatic blood pressures Check TSH Further recommendations will be based upon clinical course I am dictating on behalf of Dr Gwyn Murphy's history/physical and assessment/plan. Past Medical History Past Medical History: Atrial Fibrillation, Coronary Artery Disease (CAD), Cancer, Diabetes Mellitus, Hyperlipidemia, Hypertension, Musculoskeletal Disorder, Neurologic Disorder, Osteoarthritis (OA), Pneumonia, Renal Disease, Rheumatoid Arthritis (RA), Skin Disorder, Thyroid Disorder Additional Past Medical History / Comment(s): Morbid obesity, chronic atrial fibrillation, diabetes mellitus type 2, hypertension, hyperlipidemia, spinal stenosis, osteoarthritis, hypothyroidism, hypertension, history of skin melanoma, history of bursitis with MRSA post I&D, rheumatoid arthritis, Sjogren's disease, 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 without any indication of ILD related to RA, Fall on July 22 transfer to [facility] for MRI, then Fall on 11/16/21 History of Any Multi-Drug Resistant Organisms: MRSA Date of last positivie culture/infection: 09/02/22 MDRO Source:: Right Leg Past Surgical History: Back Surgery, Breast Surgery, Cholecystectomy, Heart Catheterization, Joint Replacement, Orthopedic Surgery Additional Past Surgical History / Comment(s): Bilateral cataracts with lens implants, arthroscopies to lt wrist, gualberto knees, gualberto ankles, gualberto hips, lt hip replacment and redone, L/R shoulder sxs, rt breast bx-benign, egd/colonoscopy, skin cancer removal L arm, Lumbar fixnation possible broken Past Anesthesia/Blood Transfusion Reactions: No Reported Reaction Additional Past Anesthesia/Blood Transfusion Reaction / Comment(s): Pt has been told not to have anesthesia metabolized by the kidneys and has neurologic Sjogren's with post anesthesia paralysis. Past Psychological History: No Psychological Hx Reported Additional Psychological History / Comment(s): . Smoking Status: Former smoker Past Alcohol Use History: None Reported Additional Past Alcohol Use History / Comment(s): Pt started smoking in 1962 and quit in 1969 Past Drug Use History: None Reported - Past Family History Mother Family Medical History: CVA/TIA Additional Family Medical History / Comment(s): RUPTURED BOWEL Father Family Medical History: Cancer, Pneumonia Additional Family Medical History / Comment(s): ASPIRATIVE PNA Sister(s) Additional Family Medical History / Comment(s): at age 34 with lupus Medications and Allergies Home Medications Medication Instructions Recorded Confirmed Type Latanoprost [Xalatan 0.005%] 1 drop BOTH EYES HS 08/11/17 01/14/23 History predniSONE 10 mg PO DAILY 07/23/21 01/14/23 History Magnesium Oxide 400 mg PO DAILY 08/30/21 01/14/23 History Calcium Citrate/Vitamin D3 1 tab PO BID@0900,1800 11/16/21 01/14/23 History [Citracal + D Maximum Caplet] Digoxin [Lanoxin] 125 mcg PO Q2D 11/16/21 01/14/23 History Nitroglycerin Sl Tabs [Nitrostat] 0.4 mg SL Q5M PRN 11/16/21 01/14/23 History Adalimumab [Humira(Cf) Pen] 40 mg SQ Q14D 01/09/22 01/14/23 History Apixaban [Eliquis] 5 mg PO BID@0900,1800 05/02/22 01/14/23 History INSULIN LISPRO (HumaLOG) [humaLOG] 8 units SQ AC-LUNCH 05/02/22 01/14/23 History INSULIN LISPRO (HumaLOG) [humaLOG] See Protocol SQ AC-TID 05/02/22 01/14/23 History INSULIN LISPRO (humaLOG) [humaLOG] 8 units SQ AC-SUPPER 05/02/22 01/14/23 History Multivit-Min/FA/Lycopen/Lutein 1 tab PO DAILY 05/02/22 01/14/23 History [Centrum Silver Tablet] metFORMIN HCL [Glucophage] 500 mg PO DAILY@1800 05/02/22 01/14/23 History Insulin Glargine [Lantus Vial] 30 unit SQ BID 05/17/22 01/14/23 History Acetaminophen Tab [Tylenol] 650 mg PO Q6HR PRN tab 05/20/22 01/14/23 Rx Loratadine [Claritin] 10 mg PO DAILY #30 tab 05/20/22 01/14/23 Rx SILVER sulfADIAZINE Cream 1 applic TOPICAL BID PRN 06/28/22 01/14/23 History [Silvadene 1% Cream] Tamsulosin [Flomax] 0.4 mg PO DAILY@1800 06/28/22 01/14/23 History Bumetanide [BUMEX] 1 mg PO BID@0900,1800 07/07/23 11/18/23 History Levothyroxine Sodium [Synthroid] 150 mcg PO HS@0000 09/02/22 01/14/23 History methocarbamoL [Robaxin-750] 750 mg PO DAILY@0000 09/02/22 01/14/23 History INSULIN LISPRO (HumaLOG) [humaLOG] 4 units SQ AC-BRKFST 12/15/22 01/14/23 History metOLazone [Zaroxolyn] 2.5 mg PO TUTH 12/15/22 01/14/23 History oxyBUTYnin chloride [Ditropan] 5 mg PO BID@0900,1800 12/15/22 01/14/23 History traZODone HCL [Desyrel] 50 mg PO HS@0000 12/15/22 01/14/23 History oxyCODONE-APAP 7.5-325MG [Percocet 1 tab PO Q6HR PRN 30 Days #120 tab 01/05/23 01/14/23 Rx 7.5-325 mg] Gabapentin [Neurontin] 400 mg PO QID@00,06,12,18 01/14/23 01/14/23 History Nitrofurantoin Monohyd/M-Cryst 100 mg PO Q12HR 01/14/23 01/14/23 History [Macrobid] Allergies Allergy/AdvReac Type Severity Reaction Status Date / Time adhesive Allergy Rash/Hives Verified 01/14/23 18:15 cephalexin [From Keflex] Allergy Rash/Hives Verified 01/14/23 18:15 grass pollen Allergy Unknown Verified 01/14/23 18:15 mold Allergy Unknown Verified 01/14/23 18:15 Sulfa (Sulfonamide Allergy Rash/Hives Verified 01/14/23 18:15 Antibiotics) newspaper ink Allergy Mild Unknown Uncoded 01/14/23 14:36 Physical Exam Vitals: Vital Signs Temp Pulse Pulse Resp BP BP Pulse Ox 01/15/23 09:35 98.0 F 68 18 138/59 98 01/15/23 08:40 96 01/15/23 04:00 74 16 127/69 98 01/15/23 00:00 74 16 124/54 96 01/14/23 22:17 98.1 F 68 18 126/72 96 01/14/23 19:39 84 18 137/56 99 01/14/23 18:40 98.0 F 79 20 165/59 98 01/14/23 16:48 75 18 143/55 99 01/14/23 14:29 97.7 F 86 20 107/76 96 Intake and Output 01/14/23 01/15/23 01/15/23 22:59 06:59 14:59 Intake Total 240 Output Total 500 Balance -260 Intake: Oral 240 Output: Urine 500 Other: Voiding Method External Catheter External Catheter External Catheter Weight 117.934 kg Results 01/15/23 06:38 01/15/23 06:38 Cardiac Enzymes 01/14/23 01/14/23 01/14/23 Range/Units 15:19 15:19 22:26 AST 51 H (14-36) U/L Troponin I 0.065 H* 0.056 H* (0.000-0.034) ng/mL 01/15/23 01/15/23 Range/Units 02:02 06:38 AST 45 H (14-36) U/L Troponin I 0.060 H* (0.000-0.034) ng/mL Coagulation 01/14/23 Range/Units 15:19 PT 11.0 (10.0-12.5) sec APTT 22.7 (22.0-30.0) sec CBC 01/14/23 01/15/23 Range/Units 15:19 06:38 WBC 9.9 8.2 (3.8-10.6) k/uL RBC 3.90 4.10 (3.80-5.40) m/uL Hgb 12.4 12.9 (11.4-16.0) gm/dL Hct 36.1 38.7 (34.0-46.0) % Plt Count 141 L 160 (150-450) k/uL Comprehensive Metabolic Panel 01/14/23 01/15/23 01/15/23 Range/Units 15:19 06:38 06:38 Sodium 131 L 133 L (137-145) mmol/L Potassium 2.5 L* 2.8 L 2.8 L (3.5-5.1) mmol/L Chloride 80 L 83 L (98-107) mmol/L Carbon Dioxide 40 H 38 H (22-30) mmol/L BUN 40 H 29 H (7-17) mg/dL Creatinine 0.81 0.73 (0.52-1.04) mg/dL Glucose 307 H 294 H (74-99) mg/dL Calcium 10.1 9.9 (8.4-10.2) mg/dL AST 51 H 45 H (14-36) U/L ALT 33 34 (4-34) U/L Alkaline Phosphatase 74 77 (38-126) U/L Total Protein 6.6 6.8 (6.3-8.2) g/dL Albumin 3.5 3.6 (3.5-5.0) g/dL Current Medications Generic Name Dose Route Start Last Admin Trade Name Freq PRN Reason Stop Dose Admin Acetaminophen 650 mg 01/15/23 11:19 Acetaminophen Tab 325 Mg Tab PO Q6HR PRN Mild Pain or Fever > 100.5 Apixaban 5 mg 01/15/23 18:00 Apixaban 5 Mg Tab PO BID@0900,1800 [facility] Protocol Bumetanide 1 mg 01/15/23 18:00 Bumetanide 1 Mg Tab PO BID@0900,1800 [facility] Calcium Carbonate 1 each 01/15/23 18:00 Calcium Carb-Vit D 500 Mg-5 Mcg Tab PO BID@0900,1800 [facility] Digoxin 125 mcg 01/16/23 09:00 Digoxin 125 Mcg Tab PO Q2D [facility] Gabapentin 400 mg 01/15/23 12:00 01/15/23 12:16 Gabapentin 400 Mg Cap PO 400 mg QID@00,06,12,18 [facility] Administration Potassium Chloride/Sodium Chloride 1,000 mls @ 75 mls/hr 01/15/23 12:00 01/15/23 12:55 Ns-Kcl 40 Meq/L Iv Solution IV 75 mls/hr .[id number] [facility] Administration Insulin Aspart 0 unit 01/14/23 22:10 01/15/23 12:14 Insulin Aspart (Novolog) 100 Unit/Ml Vial SQ 8 unit ACHS [facility] Administration Protocol Insulin Aspart 8 unit 01/15/23 17:30 Insulin Aspart (Novolog) 100 Unit/Ml Vial SQ AC-SUPPER [facility] Insulin Detemir 30 unit 01/15/23 21:00 Insulin Detemir (Levemir) 100 Unit/Ml Syr SQ BID@0700,2100 [facility] Latanoprost 1 drops 01/15/23 21:00 Latanoprost 0.005% Ophth Drops 2.5 Ml Btl BOTH EYES HS [facility] Levothyroxine Sodium 150 mcg 01/16/23 06:30 Levothyroxine 75 Mcg Tab PO DAILY@0630 [facility] Loratadine 10 mg 01/16/23 09:00 Loratadine 10 Mg Tab PO DAILY [facility] Magnesium Oxide 400 mg 01/15/23 11:30 01/15/23 12:16 Magnesium Oxide 400 Mg Tab PO 400 mg DAILY [facility] Administration Metformin HCl 500 mg 01/15/23 18:00 Metformin 500 Mg Tab PO DAILY@1800 [facility] Methocarbamol 750 mg 01/15/23 21:00 Methocarbamol 750 Mg Tab PO HS [facility] Metolazone 2.5 mg 01/17/23 09:00 Metolazone 2.5 Mg Tab PO [facility] Miscellaneous Information 1 each 01/15/23 11:21 Magnesium Replacement Protocol 1 Each Misc MISCELLANE DAILY PRN Per Protocol Protocol Miscellaneous Information 1 each 01/15/23 11:21 Potassium Replacement Protocol 1 Each Misc MISCELLANE DAILY PRN Per Protocol Protocol Morphine Sulfate 4 mg 01/14/23 17:15 01/15/23 10:37 Morphine Sulfate 4 Mg/Ml Syringe IV 4 mg Q4HR PRN Administration Severe Pain (Scale 7 to 10) Multivitamins 1 each 01/16/23 09:00 Multivitamins, Thera 1 Each Tab PO DAILY [facility] Naloxone HCl 0.2 mg 01/14/23 17:15 Naloxone 0.4 Mg/Ml 1 Ml Vial IV Q2M PRN Opioid Reversal Ondansetron HCl 4 mg 01/14/23 17:15 Ondansetron 4 Mg/2 Ml Vial IVP Q8HR PRN Nausea And Vomiting Oxybutynin Chloride 5 mg 01/15/23 18:00 Oxybutynin Chloride 5 Mg Tab PO BID@0900,1800 [facility] Oxycodone/Acetaminophen 1 each 01/15/23 11:19 01/15/23 12:16 Oxycodone-Apap 7.5-325mg 1 Each Tab PO 1 each Q6HR PRN Administration Pain Pantoprazole Sodium 40 mg 01/16/23 07:30 Pantoprazole 40 Mg Tablet PO AC-BRKFST [facility] Prednisone 10 mg 01/15/23 11:30 01/15/23 12:16 Prednisone 10 Mg Tab PO 10 mg DAILY [facility] Administration Silver Sulfadiazine 1 applic 01/15/23 11:19 Silver Sulfadiazine 1% Cream 25 Gm Tube TOPICAL BID PRN Skin Irritation Tamsulosin HCl 0.4 mg 01/15/23 18:00 Tamsulosin 0.4 Mg Cap.Er.24h PO DAILY@1800 [facility] Trazodone HCl 50 mg 01/15/23 21:00 Trazodone Hcl 50 Mg Tab PO [facility] Intake and Output 01/14/23 01/15/23 01/15/23 22:59 06:59 14:59 Intake Total 240 Output Total 500 Balance -260 Intake: Oral 240 Output: Urine 500 Other: Voiding Method External Catheter External Catheter External Catheter Weight 117.934 kg 01/15/23 06:38 01/15/23 06:38
[2023-01-15 13:52] VITALS: RESP 16
[2023-01-15 16:18] LABS: Glucose,Whole Blood 357 mg/dL (70-110)
[2023-01-15] MEDS: BUMETANIDE 1 MG TAB PO SCH (17:46)
[2023-01-15] MEDS: metFORMIN 500 MG TAB PO SCH (17:47)
[2023-01-15] MEDS: TAMSULOSIN 0.4 MG CAP.ER.24H PO SCH (17:47)
[2023-01-15] MEDS: oxyBUTYnin chloride 5 MG TAB PO SCH (17:47)
[2023-01-15] MEDS: CALCIUM CARB-VIT D 500 MG-5 MCG TAB PO SCH (17:48)
[2023-01-15 17:52] LABS: Potassium 3.6 mmol/L (3.5-5.1)
[2023-01-15] MEDS ORDERED: APIXABAN 5 MG TAB PO SCH (18:00)
[2023-01-15 19:51] LABS: Glucose,Whole Blood 388 mg/dL (70-110)
[2023-01-15] MEDS ORDERED: NITROFURANTOIN MONOHYD/M-CRYST 100 MG CAP PO SCH (21:00)
[2023-01-15] MEDS: LATANOPROST 0.005% OPHTH DROPS 2.5 ML BTL BOTH EYES SCH (21:23)
[2023-01-15] MEDS: methocarbamoL 750 MG TAB PO SCH (21:23)
[2023-01-15] MEDS: INSULIN DETEMIR (LEVEMIR) 100 UNIT/ML SYR SQ SCH (21:23)
[2023-01-15] MEDS: traZODone HCL 50 MG TAB PO SCH (21:24)
[2023-01-15] MEDS ORDERED: HEPARIN SOD,PORK IN 0.45% NACL 25,000 UNIT in 0.45% NACL 1 250ML.BAG IV SCH (22:00)
[2023-01-15] MEDS ORDERED: HEPARIN SODIUM 1,000 UN/ML (10ML VL) IV ONE (22:00)
[2023-01-15 22:14] LABS: Anisocytosis Slight; Basophils % (A) 0 %; Eosinophils # (A) 0.3 k/uL (0-0.7); Eosinophils % (A) 3 %; HGB 12.7 gm/dL (11.4-16.0); Lymphocytes # (A) 1.6 k/uL (1.0-4.8); Lymphocytes % (A) 20 %; MCH 32.1 pg (25.0-35.0); MCHC 33.4 g/dL (31.0-37.0); MCV 95.9 fL (80.0-100.0); Mean Platelet Volume 7.7; Monocytes # (A) 0.4 k/uL (0-1.0); Monocytes % (A) 5 %; Neutrophils # (A) 5.6 k/uL (1.3-7.7); Neutrophils % (A) 70 %; Platelet Count 161 k/uL (150-450); Poikilocytosis Slight; RBC 3.96 m/uL (3.80-5.40)
[2023-01-15 22:34] LABS: Partial Thromboplastin Time 22.6 sec (22.0-30.0); Prothrombin Time 10.6 sec (10.0-12.5)
[2023-01-16] MEDS ORDERED: LEVOTHYROXINE 75 MCG TAB PO SCH
[2023-01-16] MEDS ORDERED: methocarbamoL 750 MG TAB PO SCH
[2023-01-16] MEDS ORDERED: traZODone HCL 50 MG TAB PO SCH
[2023-01-16 00:46] LABS: Anisocytosis Slight; HGB 11.7 gm/dL (11.4-16.0); MCH 30.9 pg (25.0-35.0); MCHC 32.5 g/dL (31.0-37.0); MCV 94.9 fL (80.0-100.0); Mean Platelet Volume 7.5; Platelet Count 169 k/uL (150-450); Poikilocytosis Slight; RDW 17.3 % (11.5-15.5); WBC 8.2 k/uL (3.8-10.6)
[2023-01-16] MEDS ORDERED: ZINC OXIDE PASTE (Z-GUARD) 1 APPLIC APPLIC TOPICAL PRN (04:31)
[2023-01-16 05:45] LABS: Glucose,Whole Blood 240 mg/dL (70-110)
[2023-01-16] MEDS ORDERED: HEPARIN SODIUM 1,000 UN/ML (10ML VL) IV PRN (05:46)
[2023-01-16] MEDS: 0.9% NACL WITH KCL 40 MEQ/L 1,000 ML IV SCH ×2 (05:52→21:14)
[2023-01-16] MEDS: INSULIN DETEMIR (LEVEMIR) 100 UNIT/ML SYR SQ SCH ×2 (05:52→21:14)
[2023-01-16] MEDS: LEVOTHYROXINE 75 MCG TAB PO SCH (05:52)
[2023-01-16] MEDS: oxyCODONE-APAP 7.5-325MG 1 EACH TAB PO PRN (05:52)
[2023-01-16] MEDS: GABAPENTIN 400 MG CAP PO SCH ×4 (05:53→23:23)
[2023-01-16] MEDS: INSULIN ASPART (NovoLOG) 100 UNIT/ML VIAL SQ SCH ×5 (06:20→21:14)
[2023-01-16] MEDS: PANTOPRAZOLE 40 MG TABLET PO SCH (06:20)
[2023-01-16 08:41] LABS: African American GFR (CKD) 87 (>60 ml/min/1.73 sqM); Blood Urea Nitrogen 25 mg/dL (7-17); Calcium 8.9 mg/dL (8.4-10.2); Chloride 91 mmol/L (98-107); Glucose 176 mg/dL (74-99); Magnesium 1.8 mg/dL (1.6-2.3); Non-African American GFR(CKD) 75 (>60 ml/min/1.73 sqM); Potassium 3.2 mmol/L (3.5-5.1); Sodium 136 mmol/L (137-145)
[2023-01-16 08:48] LABS: Anion Gap 10 mmol/L
[2023-01-16 08:50] LABS: Carbon Dioxide 35 mmol/L (22-30)
--- NOTE | 2023-01-16 08:50 | P.PN ---
Subjective Progress Note Date: 01/16/23 Principal diagnosis: Near syncope, weakness This is an 82-year-old female who presented to the emergency department after experiencing a syncopal episode at home. Patient had been reportedly unresponsive to her . In the emergency room she was found to be severely dehydrated and hypokalemic. This morning patient is seen sitting up in bed and denies any further syncopal episodes. Cardiology is consulted. She is tolerating diet. She reports she is getting up to the bedside commode with one assist. Question need for placement versus home for discharge. Objective - Vital Signs Vital signs: Vital Signs Temp 97.8 F 01/15/23 20:00 Pulse 82 01/16/23 04:00 Resp 16 01/16/23 04:00 BP 145/72 01/16/23 04:00 Pulse Ox 98 01/16/23 08:29 FiO2 Intake & Output 01/15/23 01/16/23 01/16/23 18:59 06:59 18:59 Intake Total 236 17.333 118 Balance 236 17.333 118 Intake: Intake, IV Titration 17.333 Amount Heparin Sod,Pork in 0.45% 17.333 NaCl 25,000 unit In 0.45 % NaCl 1 250ml.bag @ 8. 4793 UNITS/KG/HR 10 mls/ hr IV .Q24H [facility] Rx#: [id number] Oral 236 118 Other: Voiding Method External Catheter External Catheter # Voids 2 1 # Bowel Movements 1 - Constitutional General appearance: Present: cooperative, no acute distress - EENT Eyes: Present: PERRLA - Neck Neck: Present: normal ROM. Absent: lymphadenopathy, rigidity - Respiratory Respiratory: bilateral: CTA - Cardiovascular Rhythm: irregularly irregular - Gastrointestinal General gastrointestinal: Present: soft. Absent: tenderness - Integumentary Integumentary: Present: normal, normal turgor - Musculoskeletal Musculoskeletal: Present: generalized weakness - Psychiatric Psychiatric: Present: A&O x's 3 - Labs CBC & Chem 7: 01/16/23 00:16 01/15/23 17:18 Labs: Abnormal Lab Results - Last 24 Hours (Table) 01/15/23 01/15/23 01/15/23 Range/Units 06:38 11:40 16:16 RDW (11.5-15.5) % Sodium (137-145) mmol/L Chloride (98-107) mmol/L Carbon Dioxide (22-30) mmol/L POC Glucose (mg/dL) 345 H 357 H (70-110) mg/dL TSH 24.100 H (0.465-4.680) mIU/L 01/15/23 01/15/23 01/15/23 Range/Units 17:18 19:50 21:53 RDW 17.0 H (11.5-15.5) % Sodium 133 L (137-145) mmol/L Chloride 85 L (98-107) mmol/L Carbon Dioxide 38 H (22-30) mmol/L POC Glucose (mg/dL) 388 H (70-110) mg/dL TSH (0.465-4.680) mIU/L 01/16/23 01/16/23 Range/Units 00:16 05:44 RDW 17.3 H (11.5-15.5) % Sodium (137-145) mmol/L Chloride (98-107) mmol/L Carbon Dioxide (22-30) mmol/L POC Glucose (mg/dL) 240 H (70-110) mg/dL TSH (0.465-4.680) mIU/L Assessment and Plan (1) Generalized weakness Current Visit: Yes Status: Acute Code(s): R53.1 - WEAKNESS SNOMED Code(s): 80486100 (2) Hypokalemia Current Visit: Yes Status: Acute Code(s): E87.6 - HYPOKALEMIA SNOMED Code(s): 74675399 (3) Near syncope Current Visit: Yes Status: Acute Code(s): R55 - SYNCOPE AND COLLAPSE SNOMED Code(s): 137072290 (4) CAD (coronary artery disease) Current Visit: No Status: Acute Code(s): I25.10 - ATHSCL HEART DISEASE OF [place] CORONARY ARTERY W/O ANG PCTRS SNOMED Code(s): 31194104 (5) CHF (congestive heart failure) Current Visit: No Status: Acute Code(s): I50.9 - HEART FAILURE, UNSPECIFIED SNOMED Code(s): 90934781 (6) Dehydration Current Visit: No Status: Acute Code(s): E86.0 - DEHYDRATION SNOMED Code(s): 06099230 (7) Diabetes Current Visit: No Status: Acute Code(s): E11.9 - TYPE 2 DIABETES MELLITUS WITHOUT COMPLICATIONS SNOMED Code(s): 30154166 (8) Hypertension Current Visit: No Status: Acute Code(s): I10 - ESSENTIAL (PRIMARY) H YPERTENSION SNOMED Code(s): 49130340 Plan: Consult with discharge planning to determine safest place for discharge. Check CBC and CMP in the morning. Patient seen and evaluated by nurse practitioner, physician in agreement with plan
[2023-01-16 08:51] LABS: Anisocytosis Slight; Basophils # (A) 0.1 k/uL (0-0.2); Basophils % (A) 1 %; Eosinophils # (A) 0.5 k/uL (0-0.7); Eosinophils % (A) 5 %; HCT 35.3 % (34.0-46.0); HGB 12.1 gm/dL (11.4-16.0); Lymphocytes # (A) 2.4 k/uL (1.0-4.8); Lymphocytes % (A) 28 %; MCH 32.5 pg (25.0-35.0); MCHC 34.4 g/dL (31.0-37.0); MCV 94.5 fL (80.0-100.0); Mean Platelet Volume 7.1; Monocytes # (A) 0.5 k/uL (0-1.0); Monocytes % (A) 6 %; Neutrophils # (A) 5.1 k/uL (1.3-7.7); Neutrophils % (A) 59 %; Platelet Count 168 k/uL (150-450); Poikilocytosis Slight; RBC 3.74 m/uL (3.80-5.40); RDW 17.1 % (11.5-15.5); WBC 8.7 k/uL (3.8-10.6)
[2023-01-16] MEDS ORDERED: DIGOXIN 125 MCG TAB PO SCH (09:00)
[2023-01-16] MEDS: BUMETANIDE 1 MG TAB PO SCH ×2 (09:46→17:37)
[2023-01-16] MEDS: MAGNESIUM OXIDE 400 MG TAB PO SCH (09:46)
[2023-01-16] MEDS: oxyBUTYnin chloride 5 MG TAB PO SCH ×2 (09:46→17:37)
[2023-01-16] MEDS: predniSONE 10 MG TAB PO SCH (09:47)
[2023-01-16] MEDS: MULTIVITAMINS, THERA 1 EACH TAB PO SCH (09:47)
[2023-01-16] MEDS: CALCIUM CARB-VIT D 500 MG-5 MCG TAB PO SCH ×2 (09:47→17:37)
[2023-01-16] MEDS: LORATADINE 10 MG TAB PO SCH (09:47)
[2023-01-16] MEDS ORDERED: Potassium Replacement Protocol 1 EACH MISC MISCELLANE PRN (11:05)
[2023-01-16] MEDS ORDERED: Magnesium Replacement Protocol 1 EACH MISC MISCELLANE PRN (11:06)
[2023-01-16] MEDS ORDERED: MAGNESIUM SULFATE-D5W PMX 1 GM in DEXTROSE/WATER 1 100ML.BAG IVPB ONE (11:06)
[2023-01-16 11:32] LABS: Glucose,Whole Blood 283 mg/dL (70-110)
[2023-01-16] MEDS: POTASSIUM CHLORIDE ER 20 MEQ TAB.ER PO SCH ×2 (12:57→12:58)
[2023-01-16] MEDS: APIXABAN 5 MG TAB PO SCH ×2 (15:33→21:14)
[2023-01-16 16:30] LABS: Glucose,Whole Blood 456 mg/dL (70-110)
--- NOTE | 2023-01-16 16:34 | P.PN ---
Subjective Progress Note Date: 01/16/23 History of present illness: The patient is an 82-year-old female who presented to the hospital after experiencing a syncopal episode. The patient follows with Dr. George in the [facility] and has multiple comorbid conditions including atrial fibrillation, coronary artery disease, diabetes, hypertension, and morbid obesity. She was found unresponsive at home when EMS was called. She was found to be hypokalemic on arrival. Cardiology was consulted for syncope and elevated troponins. DIAGNOSTICS: EKG shows persistent atrial fibrillation Chest x-ray shows mild pulmonary vascular congestion. Probable mild interstitial edema Echo in November 2022 shows preserved LV function with LVH, RV hypertrophy with mild enlargement and elevated RVSP at 40 mmHg. Moderate mitral regurgitation also noted. Lab data: WBC 8.2, hemoglobin 12.9, hematocrit 30.7, platelet 160, sodium 133, potassium 2.8, BUN 29, creatinine 0.73, magnesium 1.9, AST 45, ALT 34, troponin 0.06, 0.05, 0.06, BNP 878 01/16 Patient is seen today in follow-up. She is on a heparin drip. Blood pressure is low and potassium is low. Metolazone has been discontinued. Noted thyroid came back abnormal. Patient is normally on eliquis for atrial fibrillation which will be resumed. Blood pressure 100/63, heart rate in the 80s, pulse ox 90% on room air. Repeat blood work reveals WBC 8.7, hemoglobin 12.1. Sodium 1 36, potassium 3.2, chloride 91, CO2 35, BUN 25 creatinine 0.75. TSH 24.1. PHYSICAL EXAMINATION: This is a 82-year-old female in no apparent distress at the time of my examination. HEENT: Head is atraumatic, normocephalic. Pupils are equal, round. There is no jugular venous distention. No carotid bruit is heard. CHEST EXAMINATION: Lungs are clear to auscultation. No chest wall tenderness is noted on palpation or with deep breathing. HEART EXAMINATION: Irregular rate and rhythm. S1, S2 heard. Soft systolic murmur. No gallops or rub. ABDOMEN: Soft, nontender. Bowel sounds are heard. No organomegaly noted. EXTREMITIES: 2+ peripheral pulses. +1 lower extremity edema. Healing cellulitis from admission back in November. NEUROLOGIC EXAMINATION: Patient is awake, alert and oriented x3. FINAL ASSESSMENT AND PLAN: Syncope and collapse Hypokalemia Abnormal TSH Permanent atrial fibrillation on eliquis Hypertension Hyperlipidemia Diabetes PLAN: Continue to hold metolazone Continue gentle rehydration Consider adding spironolactone in the future as she has developed hypokalemia Discontinue heparin drip and resume eliquis Internal medicine to address abnormal TSH. Patient is cleared for discharge from cardiology. Nurse practitioner note has been reviewed, I agree with the documented findings and plan of care. Patient was seen and examined. Objective - Vital Signs Vital signs: Vital Signs Temp 97.8 F 01/15/23 20:00 Pulse 82 01/16/23 12:00 Resp 16 01/16/23 12:00 BP 100/63 01/16/23 12:00 Pulse Ox 98 01/16/23 12:00 FiO2 Intake & Output 01/15/23 01/16/23 01/16/23 18:59 06:59 18:59 Intake Total 236 17.333 118 Balance 236 17.333 118 Intake: Intake, IV Titration 17.333 Amount Heparin Sod,Pork in 0.45% 17.333 NaCl 25,000 unit In 0.45 % NaCl 1 250ml.bag @ 8. 4793 UNITS/KG/HR 10 mls/ hr IV .Q24H [facility] Rx#: [id number] Oral 236 118 Other: Voiding Method External Catheter External Catheter External Catheter # Voids 2 1 # Bowel Movements 1 - Labs CBC & Chem 7: 01/16/23 07:39 01/16/23 07:39 Labs: Abnormal Lab Results - Last 24 Hours (Table) 01/15/23 01/15/23 01/15/23 Range/Units 06:38 16:16 17:18 RBC (3.80-5.40) m/uL RDW (11.5-15.5) % Sodium 133 L (137-145) mmol/L Potassium (3.5-5.1) mmol/L Chloride 85 L (98-107) mmol/L Carbon Dioxide 38 H (22-30) mmol/L BUN (7-17) mg/dL Glucose (74-99) mg/dL POC Glucose (mg/dL) 357 H (70-110) mg/dL TSH 24.100 H (0.465-4.680) mIU/L 01/15/23 01/15/23 01/16/23 Range/Units 19:50 21:53 00:16 RBC (3.80-5.40) m/uL RDW 17.0 H 17.3 H (11.5-15.5) % Sodium (137-145) mmol/L Potassium (3.5-5.1) mmol/L Chloride (98-107) mmol/L Carbon Dioxide (22-30) mmol/L BUN (7-17) mg/dL Glucose (74-99) mg/dL POC Glucose (mg/dL) 388 H (70-110) mg/dL TSH (0.465-4.680) mIU/L 01/16/23 01/16/23 01/16/23 Range/Units 05:44 07:39 07:39 RBC 3.74 L (3.80-5.40) m/uL RDW 17.1 H (11.5-15.5) % Sodium 136 L (137-145) mmol/L Potassium 3.2 L (3.5-5.1) mmol/L Chloride 91 L (98-107) mmol/L Carbon Dioxide 35 H (22-30) mmol/L BUN 25 H (7-17) mg/dL Glucose 176 H (74-99) mg/dL POC Glucose (mg/dL) 240 H (70-110) mg/dL TSH (0.465-4.680) mIU/L 01/16/23 Range/Units 11:31 RBC (3.80-5.40) m/uL RDW (11.5-15.5) % Sodium (137-145) mmol/L Potassium (3.5-5.1) mmol/L Chloride (98-107) mmol/L Carbon Dioxide (22-30) mmol/L BUN (7-17) mg/dL Glucose (74-99) mg/dL POC Glucose (mg/dL) 283 H (70-110) mg/dL TSH (0.465-4.680) mIU/L
[2023-01-16] MEDS: metFORMIN 500 MG TAB PO SCH (17:37)
[2023-01-16] MEDS: TAMSULOSIN 0.4 MG CAP.ER.24H PO SCH (17:37)
[2023-01-16 20:45] LABS: Glucose,Whole Blood 413 mg/dL (70-110)
[2023-01-16] MEDS: traZODone HCL 50 MG TAB PO SCH (21:14)
[2023-01-16] MEDS: LATANOPROST 0.005% OPHTH DROPS 2.5 ML BTL BOTH EYES SCH (21:15)
[2023-01-16] MEDS: methocarbamoL 750 MG TAB PO SCH (21:15)
[2023-01-16 22:12] VITALS: TEMP 97.7
[2023-01-16 23:26] LABS: Glucose,Whole Blood 229 mg/dL (70-110)
[2023-01-17] MEDS: oxyCODONE-APAP 7.5-325MG 1 EACH TAB PO PRN (01:42)
[2023-01-17] MEDS: MORPHINE SULFATE 4 MG/ML SYRINGE IV PRN (02:28)
[2023-01-17 06:00] LABS: Glucose,Whole Blood 155 mg/dL (70-110)
[2023-01-17] MEDS: INSULIN DETEMIR (LEVEMIR) 100 UNIT/ML SYR SQ SCH (06:21)
[2023-01-17] MEDS: LEVOTHYROXINE 75 MCG TAB PO SCH (06:21)
[2023-01-17] MEDS: PANTOPRAZOLE 40 MG TABLET PO SCH (06:21)
[2023-01-17] MEDS: GABAPENTIN 400 MG CAP PO SCH (06:21)
[2023-01-17] MEDS: INSULIN ASPART (NovoLOG) 100 UNIT/ML VIAL SQ SCH (06:22)
[2023-01-17 07:06] LABS: Anisocytosis Slight; HCT 32.7 % (34.0-46.0); HGB 11.2 gm/dL (11.4-16.0); MCH 32.3 pg (25.0-35.0); MCHC 34.1 g/dL (31.0-37.0); MCV 94.7 fL (80.0-100.0); Mean Platelet Volume 6.9; Platelet Count 166 k/uL (150-450); Poikilocytosis Slight; RBC 3.46 m/uL (3.80-5.40); RDW 17.1 % (11.5-15.5); WBC 8.8 k/uL (3.8-10.6)
[2023-01-17 07:21] LABS: ALT 27 U/L (4-34); AST 36 U/L (14-36); African American GFR (CKD) 72 (>60 ml/min/1.73 sqM); Alkaline Phosphatase 60 U/L (38-126); Anion Gap 3 mmol/L; Blood Urea Nitrogen 22 mg/dL (7-17); Calcium 8.2 mg/dL (8.4-10.2); Carbon Dioxide 39 mmol/L (22-30); Chloride 95 mmol/L (98-107); Glucose 132 mg/dL (74-99); Magnesium 1.8 mg/dL (1.6-2.3); Non-African American GFR(CKD) 62 (>60 ml/min/1.73 sqM); Potassium 3.3 mmol/L (3.5-5.1); Sodium 137 mmol/L (137-145); Total Bilirubin 0.5 mg/dL (0.2-1.3); Total Protein 5.8 g/dL (6.3-8.2)
--- NOTE | 2023-01-17 08:36 | P.DS ---
Providers Date of admission: 01/14/23 17:15 Attending physician: Nicholas Hart Consults: 01/14/23 17:15 Consult Physician Routine Consulting Provider: Levi Tolentino Consult Reason/Comments: elevTrop,nearSyncope Do you want consulting provider notified?: Yes Primary care physician: Nicholas Hart - Discharge Diagnosis(es) (1) Generalized weakness Current Visit: Yes Status: Acute (2) Hypokalemia Current Visit: Yes Status: Acute (3) Near syncope Current Visit: Yes Status: Acute (4) CAD (coronary artery disease) Current Visit: No Status: Acute (5) CHF (congestive heart failure) Current Visit: No Status: Acute (6) Dehydration Current Visit: No Status: Acute (7) Diabetes Current Visit: No Status: Acute (8) Hypertension Current Visit: No Status: Acute Hospital Course: This is an 82-year-old female who presented to the emergency department after experiencing a syncopal episode at home. Patient had been reportedly unresponsive to her . In the emergency room she was found to be severely dehydrated hypokalemic. Patient seen and evaluated by cardiology. They have discontinued patient's Zaroxolyn and have cleared patient for discharge. Patient seen and evaluated by physical and occupational therapy, they are reporting patient may return home. Patient reports she is ready for discharge, feeling a lot better. Patient will continue to hold Zaroxolyn and reevaluate medications at follow-up visit. Patient seen and evaluated by nurse practitioner, physician in agreement with plan Patient Condition at Discharge: Fair Plan - Discharge Summary Discharge Rx Participant: No New Discharge Prescriptions: Continue Latanoprost [Xalatan 0.005%] 1 drop BOTH EYES HS Magnesium Oxide 400 mg PO DAILY Calcium Citrate/Vitamin D3 [Citracal + D Maximum Caplet] 1 tab PO BID@0900,1800 Adalimumab [Humira(Cf) Pen] 40 mg SQ Q14D INSULIN LISPRO (humaLOG) [humaLOG] 8 units SQ AC-SUPPER INSULIN LISPRO (HumaLOG) [humaLOG] 8 units SQ AC-LUNCH metFORMIN HCL [Glucophage] 500 mg PO DAILY@1800 Insulin Glargine [Lantus Vial] 30 unit SQ BID Loratadine [Claritin] 10 mg PO DAILY #30 tab Tamsulosin [Flomax] 0.4 mg PO DAILY@1800 SILVER sulfADIAZINE Cream [Silvadene 1% Cream] 1 applic TOPICAL BID PRN PRN Reason: Skin Irritation Bumetanide [BUMEX] 1 mg PO BID@0900,1800 Levothyroxine Sodium [Synthroid] 150 mcg PO HS@0000 methocarbamoL [Robaxin-750] 750 mg PO DAILY@0000 traZODone HCL [Desyrel] 50 mg PO HS@0000 predniSONE 10 mg PO DAILY Nitroglycerin Sl Tabs [Nitrostat] 0.4 mg SL Q5M PRN PRN Reason: Chest Pain Digoxin [Lanoxin] 125 mcg PO Q2D INSULIN LISPRO (HumaLOG) [humaLOG] See Protocol SQ AC-TID Multivit-Min/FA/Lycopen/Lutein [Centrum Silver Tablet] 1 tab PO DAILY Apixaban [Eliquis] 5 mg PO BID@0900,1800 Acetaminophen Tab [Tylenol] 650 mg PO Q6HR PRN tab PRN Reason: Mild Pain Or Fever > 100.5 oxyBUTYnin chloride [Ditropan] 5 mg PO BID@0900,1800 INSULIN LISPRO (HumaLOG) [humaLOG] 4 units SQ AC-BRKFST oxyCODONE-APAP 7.5-325MG [Percocet 7.5-325 mg] 1 tab PO Q6HR PRN 30 Days #120 tab PRN Reason: Pain Gabapentin [Neurontin] 400 mg PO QID@00,06,,18 Discontinued metOLazone [Zaroxolyn] 2.5 mg PO TUTH Nitrofurantoin Monohyd/M-Cryst [Macrobid] 100 mg PO Q12HR Discharge Medication List Latanoprost [Xalatan 0.005%] 1 drop BOTH EYES HS 08/11/17 [History] predniSONE 10 mg PO DAILY 07/23/21 [History] Magnesium Oxide 400 mg PO DAILY 08/30/21 [History] Calcium Citrate/Vitamin D3 [Citracal + D Maximum Caplet] 1 tab PO BID@0900,1800 11/16/21 [History] Digoxin [Lanoxin] 125 mcg PO Q2D 11/16/21 [History] Nitroglycerin Sl Tabs [Nitrostat] 0.4 mg SL Q5M PRN 11/16/21 [History] Adalimumab [Humira(Cf) Pen] 40 mg SQ Q14D 01/09/22 [History] Apixaban [Eliquis] 5 mg PO BID@0900,1800 05/02/22 [History] INSULIN LISPRO (HumaLOG) [humaLOG] 8 units SQ AC-LUNCH 05/02/22 [History] INSULIN LISPRO (HumaLOG) [humaLOG] See Protocol SQ AC-TID 05/02/22 [History] INSULIN LISPRO (humaLOG) [humaLOG] 8 units SQ AC-SUPPER 05/02/22 [History] Multivit-Min/FA/Lycopen/Lutein [Centrum Silver Tablet] 1 tab PO DAILY 05/02/22 [History] metFORMIN HCL [Glucophage] 500 mg PO DAILY@1800 05/02/22 [History] Insulin Glargine [Lantus Vial] 30 unit SQ BID 05/17/22 [History] Acetaminophen Tab [Tylenol] 650 mg PO Q6HR PRN tab 05/20/22 [Rx] Loratadine [Claritin] 10 mg PO DAILY #30 tab 05/20/22 [Rx] SILVER sulfADIAZINE Cream [Silvadene 1% Cream] 1 applic TOPICAL BID PRN 06/28/22 [History] Tamsulosin [Flomax] 0.4 mg PO DAILY@1800 06/28/22 [History] Bumetanide [BUMEX] 1 mg PO BID@0900,1800 09/02/22 [History] Levothyroxine Sodium [Synthroid] 150 mcg PO HS@0000 09/02/22 [History] methocarbamoL [Robaxin-750] 750 mg PO DAILY@0000 09/02/22 [History] INSULIN LISPRO (HumaLOG) [humaLOG] 4 units SQ AC-BRKFST 12/15/22 [History] oxyBUTYnin chloride [Ditropan] 5 mg PO BID@0900,1800 12/15/22 [History] traZODone HCL [Desyrel] 50 mg PO HS@0000 12/15/22 [History] oxyCODONE-APAP 7.5-325MG [Percocet 7.5-325 mg] 1 tab PO Q6HR PRN 30 Days #120 tab 01/05/23 [Rx] Gabapentin [Neurontin] 400 mg PO QID@00,06,12,18 01/14/23 [History] Follow up Appointment(s)/Referral(s): Jamshid George MD [STAFF PHYSICIAN] - 1 Week Nicholas Hart MD [Primary Care Provider] - 1 Week () Discharge Disposition: HOME SELF-CARE
[2023-01-17] MEDS: LORATADINE 10 MG TAB PO SCH (08:39)
[2023-01-17] MEDS: MAGNESIUM OXIDE 400 MG TAB PO SCH (08:39)
[2023-01-17] MEDS: APIXABAN 5 MG TAB PO SCH (08:39)
[2023-01-17] MEDS: MULTIVITAMINS, THERA 1 EACH TAB PO SCH (08:39)
[2023-01-17] MEDS: BUMETANIDE 1 MG TAB PO SCH (08:39)
[2023-01-17] MEDS: oxyBUTYnin chloride 5 MG TAB PO SCH (08:39)
[2023-01-17] MEDS: CALCIUM CARB-VIT D 500 MG-5 MCG TAB PO SCH (08:39)
[2023-01-17] MEDS: predniSONE 10 MG TAB PO SCH (08:39)
[2023-01-17 08:54] VITALS: BP 120/72; PULSE 78
[2023-01-17] MEDS ORDERED: metOLazone 2.5 MG TAB PO SCH (09:00)
--- NOTE | 2023-01-17 11:52 | P.PN ---
Subjective Progress Note Date: 01/17/23 History of present illness: The patient is an 82-year-old female who presented to the hospital after experiencing a syncopal episode. The patient follows with Dr. George in the [facility] and has multiple comorbid conditions including atrial fibrillation, coronary artery disease, diabetes, hypertension, and morbid obesity. She was found unresponsive at home when EMS was called. She was found to be hypokalemic on arrival. Cardiology was consulted for syncope and elevated troponins. DIAGNOSTICS: EKG shows persistent atrial fibrillation Chest x-ray shows mild pulmonary vascular congestion. Probable mild interstitial edema Echo in November 2022 shows preserved LV function with LVH, RV hypertrophy with mild enlargement and elevated RVSP at 40 mmHg. Moderate mitral regurgitation also noted. Lab data: WBC 8.2, hemoglobin 12.9, hematocrit 30.7, platelet 160, sodium 133, potassium 2.8, BUN 29, creatinine 0.73, magnesium 1.9, AST 45, ALT 34, troponin 0.06, 0.05, 0.06, BNP 878 01/16 Patient is seen today in follow-up. She is on a heparin drip. Blood pressure is low and potassium is low. Metolazone has been discontinued. Noted thyroid came back abnormal. Patient is normally on eliquis for atrial fibrillation which will be resumed. Blood pressure 100/63, heart rate in the 80s, pulse ox 90% on room air. Repeat blood work reveals WBC 8.7, hemoglobin 12.1. Sodium 1 36, potassium 3.2, chloride 91, CO2 35, BUN 25 creatinine 0.75. TSH 24.1. 01/17 The patient denies any new concerns today. No lightheadedness or dizziness, no chest pain and no palpitations. Blood pressure 120/72, heart rate 78, pulse ox 96% on room air. Repeat blood work reveals hemoglobin 11.2, potassium 3.3, BUN 22 creatinine 0.88. PHYSICAL EXAMINATION: This is a 82-year-old female in no apparent distress at the time of my examination. HEENT: Head is atraumatic, normocephalic. Pupils are equal, round. There is no jugular venous distention. No carotid bruit is heard. CHEST EXAMINATION: Lungs are clear to auscultation. No chest wall tenderness is noted on palpation or with deep breathing. HEART EXAMINATION: Irregular rate and rhythm. S1, S2 heard. Soft systolic murmur. No gallops or rub. ABDOMEN: Soft, nontender. Bowel sounds are heard. No organomegaly noted. EXTREMITIES: 2+ peripheral pulses. +1 lower extremity edema. Healing cellulitis from admission back in November. NEUROLOGIC EXAMINATION: Patient is awake, alert and oriented x3. FINAL ASSESSMENT AND PLAN: Syncope and collapse Hypokalemia Abnormal TSH Permanent atrial fibrillation on eliquis Hypertension Hyperlipidemia Diabetes PLAN: Continue to hold metolazone Continue current cardiac medications Patient is cleared for discharge from cardiology. Nurse practitioner note has been reviewed, I agree with the documented findings and plan of care. Patient was seen and examined. Objective - Vital Signs Vital signs: Vital Signs Temp 97.7 F 01/16/23 20:00 Pulse 78 01/17/23 08:00 Resp 16 01/17/23 08:00 BP 120/72 01/17/23 08:00 Pulse Ox 96 01/17/23 09:04 FiO2 Intake & Output 01/16/23 01/17/23 01/17/23 18:59 06:59 18:59 Intake Total 1294 237 Output Total 300 Balance 1294 -63 Intake: Intake, IV Titration 700 Amount 0.9% NaCl with KCl 40 Meq 600 /l 1,000 ml @ 75 mls/hr IV .[id number] [facility] Rx#: [id number] Magnesium Sulfate-D5w Pmx 100 1 gm In Dextrose/Water 1 100ml.bag @ 100 mls/hr IVPB ONCE ONE Rx#: [id number] Oral 594 237 Output: Urine 300 Other: Voiding Method External Catheter External Catheter # Voids 1 # Bowel Movements 1 - Labs CBC & Chem 7: 01/17/23 06:48 01/17/23 06:48 Labs: Abnormal Lab Results - Last 24 Hours (Table) 01/16/23 01/16/23 01/16/23 Range/Units 11:31 16:28 20:44 RBC (3.80-5.40) m/uL Hgb (11.4-16.0) gm/dL Hct (34.0-46.0) % RDW (11.5-15.5) % Potassium (3.5-5.1) mmol/L Chloride (98-107) mmol/L Carbon Dioxide (22-30) mmol/L BUN (7-17) mg/dL Glucose (74-99) mg/dL POC Glucose (mg/dL) 283 H 456 H 413 H (70-110) mg/dL Calcium (8.4-10.2) mg/dL Total Protein (6.3-8.2) g/dL Albumin (3.5-5.0) g/dL 01/16/23 01/17/23 01/17/23 Range/Units 23:25 05:59 06:48 RBC 3.46 L (3.80-5.40) m/uL Hgb 11.2 L (11.4-16.0) gm/dL Hct 32.7 L (34.0-46.0) % RDW 17.1 H (11.5-15.5) % Potassium (3.5-5.1) mmol/L Chloride (98-107) mmol/L Carbon Dioxide (22-30) mmol/L BUN (7-17) mg/dL Glucose (74-99) mg/dL POC Glucose (mg/dL) 229 H 155 H (70-110) mg/dL Calcium (8.4-10.2) mg/dL Total Protein (6.3-8.2) g/dL Albumin (3.5-5.0) g/dL 01/17/23 Range/Units 06:48 RBC (3.80-5.40) m/uL Hgb (11.4-16.0) gm/dL Hct (34.0-46.0) % RDW (11.5-15.5) % Potassium 3.3 L (3.5-5.1) mmol/L Chloride 95 L (98-107) mmol/L Carbon Dioxide 39 H (22-30) mmol/L BUN 22 H (7-17) mg/dL Glucose 132 H (74-99) mg/dL POC Glucose (mg/dL) (70-110) mg/dL Calcium 8.2 L (8.4-10.2) mg/dL Total Protein 5.8 L (6.3-8.2) g/dL Albumin 3.0 L (3.5-5.0) g/dL
== END 2023-01-17 11:50 | disposition home or self-care (01) | DRG 641 ==
LOC: EC 14:21 → 3SCARD 17:15
PROVIDERS: ADMIT Family Medicine; ATTEND Family Medicine
DX: E86.0 Dehydration (principal); I48.19 Other persistent atrial fibrillation; E11.9 Type 2 diabetes mellitus without complications; E66.01 Morbid (severe) obesity due to excess calories; I11.0 Hypertensive heart disease with heart failure; I50.9 Heart failure, unspecified; M06.9 Rheumatoid arthritis, unspecified; E78.5 Hyperlipidemia, unspecified; E87.1 Hypo-osmolality and hyponatremia; E87.6 Hypokalemia; I25.10 Atherosclerotic heart disease of native coronary artery without angina pectoris; I34.0 Nonrheumatic mitral (valve) insufficiency; Z96.1 Presence of intraocular lens; E03.9 Hypothyroidism, unspecified; Z96.642 Presence of left artificial hip joint; Z79.4 Long term (current) use of insulin; Z79.01 Long term (current) use of anticoagulants; Z79.84 Long term (current) use of oral hypoglycemic drugs; Z79.890 Hormone replacement therapy; Z79.899 Other long term (current) drug therapy; Z85.820 Personal history of malignant melanoma of skin; Z85.828 Personal history of other malignant neoplasm of skin; Z87.891 Personal history of nicotine dependence; Z88.2 Allergy status to sulfonamides; Z88.8 Allergy status to other drugs, medicaments and biological substances; Z86.73 Personal history of transient ischemic attack (TIA), and cerebral infarction without residual deficits
CPT/HCPCS: 36415; 71046; 80048; 80051; 80053; 83690; 83735; 83880; 84100; 84132; 84443; 84484; 85025; 85027; 85610; 85730; 93005; 94760; 96361; 96374; 99285

== ENCOUNTER → 2023-03-02 | Outpatient (CLI) | payer MEDICARE ==
--- NOTE | 2023-03-02 13:29 | P.PAINPG ---
PQRS Measure Charge Sheet Comment: HISTORY OF PRESENT ILLNESS: A 82 yr old wheelchair bound female w at side presents today w severe and chronic LBP x 2 yrs secondary to post laminectomy syndrome for evaluation. Pt states pain level is provoked at 7 /10 in intensity, constant, localized in the lumbar spine, predominantly axial, achy in character without shooting pain. Pain is provoked by standing for periods of 15 min or more. Pain is alleviated by PT x 8 wks in Sep 2022 w minimal relief, medications, topical Biofreeze, Lidoderm, heat, ice, repositioning and rest. Oswestry axial pain score at 36. Interventional procedures include Medications include Percocet 7.5/325mg #120, Neurontin 400mg #120, Lidoderm , Biofreeze Gel REVIEW OF ORGAN SYSTEMS: CONSTITUTIONAL: No fevers or chills. No recent weight loss. NEUROLOGICAL: + numbness and tingling along the distal extremities. No seizure disorders or headaches. MUSCULOSKELETAL: + pain PSYCHIATRIC: Denies current depression or suicidal thoughts. Physical Examinations : Constitutional : Cooperative , not in acute distress . Neurologic : Cranial nerve II to XII intact. No focal neurological deficits. Psychiatric : alert & oriented x 3. Matching mood & appropriate affect. Judgment & insight intact. Musculoskeletal : Cervical Spine Motor strength in the deltoid and biceps: Normal right side. Normal Left side Motor strength biceps and the wrist extensors: Normal right side . Normal left side Motor strength in the triceps muscle: Normal right side. Normal left side Deep tendon reflexes: Normal at the biceps. Normal at Brachioradialis. Normal at triceps Vertebral body tenderness to deep palpation over Cervical facet loading test: positive bilaterally Spurling test: positive bilaterally Neck distraction test: positive bilaterally Minesh sign: positive bilaterally Lumbar spine Motor strength lower extremities ,thigh and legs 5/5 Right side , 5/5 Left side Deep tendon reflexes : Normal Knee Jerk. Normal Ankle Jerk Vertebral body tenderness over [place] Test positive Lumbar facet Loading Test: positive Right / positive Left Range of motion of the lumbar spine Flexion 30 degrees, extension 10 degrees Straight Leg Raise test: Left/ Right positive at degree Lindsey test: positive right / positive left. Severe tenderness over the Sacroiliac joint on the Right / Left sides Gaenslen test: positive bilaterally Seated flexion test: positive bilaterally. Sacral spine : Severe tenderness over the Sacroiliac joint: right side / left side Range of motion: Flexion of the lumbar spine <60 degrees Range of motion: Extension of the lumbar spine <20 degrees Gaenslen's Test positive Lindsey test: positive right side / left side Thigh Thrust Test Sacral Thrust Test Imaging: Lumbar x-ray from 01/05/23 reviewed Assessment/ Plan : Lumbar post laminectomy syndrome Recommendation of MRI non contrast lumbar spine M51.36 and medication management. Percocet 7.5/325mg #120, Neurontin 400mg #120 w 1 RF. Narcotic/ opiate agreement signed 01/05/23 Use, side effects, adverse reactions and safe storage discussed. Pt and at side acknowledged understanding. All questions answered. I have spent greater than 30 minutes on patient care today. Dr Robles was available by phone for the evaluation of this patient. The time was used to review the medical records including relevant urine studies and Prescription history (MAPs), review of the available imaging, evaluation and examination of the patient, coordination of care with the medical staff and if applicable referring physicians, as well as creation of the medical record PQRS Narrative: Smoking Status Former smoker Hx Alcohol Use (MH) No Home Medications: Ambulatory Orders Latanoprost [Xalatan 0.005%] 1 drop BOTH EYES HS 08/11/17 predniSONE 10 mg PO DAILY 07/23/21 Magnesium Oxide 400 mg PO DAILY 08/30/21 Calcium Citrate/Vitamin D3 [Citracal + D Maximum Caplet] 1 tab PO BID@0900,1800 11/16/21 Digoxin [Lanoxin] 125 mcg PO Q2D 11/16/21 Nitroglycerin Sl Tabs [Nitrostat] 0.4 mg SL Q5M PRN 11/16/21 Adalimumab [Humira(Cf) Pen] 40 mg SQ Q14D 01/09/22 Apixaban [Eliquis] 5 mg PO BID@0900,1800 05/02/22 INSULIN LISPRO (HumaLOG) [humaLOG] 8 units SQ AC-LUNCH 05/02/22 INSULIN LISPRO (HumaLOG) [humaLOG] See Protocol SQ AC-TID 05/02/22 INSULIN LISPRO (humaLOG) [humaLOG] 8 units SQ AC-SUPPER 05/02/22 Multivit-Min/FA/Lycopen/Lutein [Centrum Silver Tablet] 1 tab PO DAILY 05/02/22 metFORMIN HCL [Glucophage] 500 mg PO DAILY@1800 05/02/22 Insulin Glargine [Lantus Vial] 30 unit SQ BID 05/17/22 Acetaminophen Tab [Tylenol] 650 mg PO Q6HR PRN tab 05/20/22 Loratadine [Claritin] 10 mg PO DAILY #30 tab 05/20/22 SILVER sulfADIAZINE Cream [Silvadene 1% Cream] 1 applic TOPICAL BID PRN 06/28/22 Tamsulosin [Flomax] 0.4 mg PO DAILY@1800 06/28/22 Bumetanide [BUMEX] 1 mg PO BID@0900,1800 09/02/22 Levothyroxine Sodium [Synthroid] 150 mcg PO HS@0000 09/02/22 methocarbamoL [Robaxin-750] 750 mg PO DAILY@0000 09/02/22 INSULIN LISPRO (HumaLOG) [humaLOG] 4 units SQ AC-BRKFST 12/15/22 oxyBUTYnin chloride [Ditropan] 5 mg PO BID@0900,1800 12/15/22 traZODone HCL [Desyrel] 50 mg PO HS@0000 12/15/22 Gabapentin [Neurontin] 400 mg PO QID@00,06,12,18 30 Days #120 cap 03/02/23 oxyCODONE-APAP 7.5-325MG [Percocet 7.5-325 mg] 1 tab PO Q6HR PRN 30 Days #120 tab 03/02/23 oxyCODONE-APAP 7.5-325MG [Percocet 7.5-325 mg] 1 tab PO Q6HR PRN 30 Days #120 tab 03/02/23 Controlled Substance Measures - Controlled Substance Measures Is patient prescribed a controlled substance at discharge?: Yes When asked, does pt state using other controlled substances?: No If prescribed controlled substance>3 days was MAPS reviewed?: Yes
[2023-03-02 13:49] VITALS: BP 147/67; PULSE 83; RESP 16; TEMP 98.1
== END ==
LOC: PNWHC3 12:13
PROVIDERS: ATTEND Specialist
DX: M96.1 Postlaminectomy syndrome, not elsewhere classified (principal); Z88.2 Allergy status to sulfonamides; Z91.048 Other nonmedicinal substance allergy status; Z88.1 Allergy status to other antibiotic agents; Z91.09 Other allergy status, other than to drugs and biological substances; Z87.891 Personal history of nicotine dependence
CPT/HCPCS: 99211

== ENCOUNTER → 2023-03-09 | Outpatient (CLI) | payer MEDICARE ==
--- NOTE | 2023-03-12 12:08 | MR ---
EXAMINATION TYPE: MR lumbar spine wo con DATE OF EXAM: 03/09/2023 COMPARISON: Plain films 01/05/2023 HISTORY: Bilateral leg pain and weakness, Hx of back surgery CONTRAST: 0 mL intravenous Gadavist. TECHNIQUE: Multiplanar, multisequence images of the lumbar spine were acquired. Significant susceptibility artif act is present causing severe limitation of the examination. Significant portions of this exam are no ndiagnostic. FINDINGS: Pedicle screws are present through L5-S1. L1-2 disc level appears to be within normal limits. No sten osis is evident. Cord terminates at approximately L1-2. Additional levels are nondiagnostic. If additional evaluation would be of benefit, CT would be recomm ended. IMPRESSION: 1. Nondiagnostic MRI lumbar spine
== END | disposition home or self-care (01) ==
LOC: RADMRIMAIN 11:25
PROVIDERS: ATTEND Specialist
DX: M51.36 Other intervertebral disc degeneration, lumbar region (principal); M51.26 Other intervertebral disc displacement, lumbar region; Z98.890 Other specified postprocedural states
CPT/HCPCS: 72148

== ENCOUNTER → 2023-04-27 | Outpatient (CLI) | payer MEDICARE ==
[2023-04-27 13:51] VITALS: BP 106/52; PULSE 98; RESP 15; TEMP 98.7
--- NOTE | 2023-04-27 14:21 | P.PAINPG ---
Objective - Vital Signs Vital signs: Vital Signs Temp 98.7 F 04/27/23 13:09 Pulse 98 04/27/23 13:09 Resp 15 04/27/23 13:09 BP 106/52 04/27/23 13:09 Pulse Ox 99 04/27/23 13:09 FiO2 Intake & Output 04/26/23 04/27/23 04/27/23 18:59 06:59 18:59 Weight 127.006 kg PQRS Measure Charge Sheet Mode of Arrival: Ambulatory Comment: HISTORY OF PRESENT ILLNESS: A 82 yr old wheelchair bound female w at side presents today w severe and chronic LBP x 2 yrs secondary to post laminectomy syndrome for evaluation. Pt states pain level is provoked at 7 /10 in intensity, constant, localized in the lumbar spine, predominantly axial, achy in character without shooting pain. Pain is provoked by standing for periods of 15 min or more. Pain is alleviated by PT x 8 wks in Sep 2022 w minimal relief, medications, topical Biofreeze, Lidoderm, heat, ice, repositioning and rest. Oswestry axial pain score at 35. Interventional procedures include Medications include Percocet 7.5/325mg #120, Neurontin 400mg #120, Lidoderm , Robaxin 750mg #60, Biofreeze Gel REVIEW OF ORGAN SYSTEMS: CONSTITUTIONAL: No fevers or chills. No recent weight loss. NEUROLOGICAL: + numbness and tingling along the distal extremities. No seizure disorders or headaches. MUSCULOSKELETAL: + pain PSYCHIATRIC: Denies current depression or suicidal t houghts. Physical Examinations : Constitutional : Cooperative , not in acute distress . Neurologic : Cranial nerve II to XII intact. No focal neurological deficits. Psychiatric : alert & oriented x 3. Matching mood & appropriate affect. Judgment & insight intact. Musculoskeletal : Cervical Spine Motor strength in the deltoid and biceps: Normal right side. Normal Left side Motor strength biceps and the wrist extensors: Normal right side . Normal left side Motor strength in the triceps muscle: Normal right side. Normal left side Deep tendon reflexes: Normal at the bi ceps. Normal at Brachioradialis. Normal at triceps Vertebral body tenderness to deep palpation over Cervical facet loading test: positive bilaterally Spurling test: positive bilaterally Neck distraction test: positive bilaterally Minesh sign: positive bilaterally Lumbar spine Motor strength lower extremities ,thigh and legs 5/5 Right side , 5/5 Left side Deep tendon reflexes : Normal Knee Jerk. Normal Ankle Jerk Vertebral body tenderness over [place] Test positive Lumbar facet Loading Test: positive Right / positive Left Range of motion of the lumbar spine Flexion 30 degrees, extension 10 degrees Straight Leg Raise test: Left/ Right positive at degree Lindsey test: positive right / positive left. Severe tenderness over the Sacroiliac joint on the Right / Left sides Gaenslen test: positive bilaterally Seated flexion test: positive bilaterally. Sacral spine : Severe tenderness over the Sacroiliac joint: right side / left side Range of motion: Flexion of the lumbar spine <60 degrees Range of motion: Extension of the lumbar spine <20 degrees Gaenslen's Test positive Lindsey test: positive right side / left side Thigh Thrust Test Sacral Thrust Test Imaging: MRI noncontrast Lumbar spine from 03/09/23 reviewed Assessment/ Plan : Lumbar post laminectomy syndrome Recommendation of MRI non contrast lumbar spine M51.36 and medication management. Percocet 7.5/325mg #120, Neurontin 400mg #120, Robaxin 750mg #60 w 1 RF. Narcotic/ opiate agreement signed 01/05/23 Use, side effects, adverse reactions and safe storage discussed. Pt and at side acknowledged understanding. All questions answered. I have spent greater than 30 minutes on patient care today. Dr Robles was available by phone for the evaluation of this patient. The time was used to review the medical records including relevant urine studies and Prescription history (MAPs), review of the available imaging, evaluation and examination of the patient, coordination of care with the medical staff and if applicable referring physicians, as well as creation of the medical record - Pain Location Bilateral Lower Back Non-Pharmacological Interventions: Heat, Inactivity, Position/Reposition Pharmacological Interventions: Scheduled Medication PQRS Narrative: Smoking Status Former smoker Narcotic Agreement Date Signed 01/05/23 Blood Pressure 106/52 Pain Intensity [Bilateral 5 Lower Back] Scale Used Numeric (1 - 10) Hx Alcohol Use (MH) No Home Medications: Ambulatory Orders Latanoprost [Xalatan 0.005%] 1 drop BOTH EYES HS 08/11/17 predniSONE 10 mg PO DAILY 07/23/21 Magnesium Oxide 400 mg PO DAILY 08/30/21 Calcium Citrate/Vitamin D3 [Citracal + D Maximum Caplet] 1 tab PO BID@0900,1800 11/16/21 Digoxin [Lanoxin] 125 mcg PO Q2D 11/16/21 Nitroglycerin Sl Tabs [Nitrostat] 0.4 mg SL Q5M PRN 11/16/21 Adalimumab [Humira(Cf) Pen] 40 mg SQ Q14D 01/09/22 Apixaban [Eliquis] 5 mg PO BID@0900,1800 05/02/22 INSULIN LISPRO (HumaLOG) [humaLOG] 8 units SQ AC-LUNCH 05/02/22 INSULIN LISPRO (HumaLOG) [humaLOG] See Protocol SQ AC-TID 05/02/22 INSULIN LISPRO (humaLOG) [humaLOG] 8 units SQ AC-SUPPER 05/02/22 Multivit-Min/FA/Lycopen/Lutein [Centrum Silver Tablet] 1 tab PO DAILY 05/02/22 metFORMIN HCL [Glucophage] 500 mg PO DAILY@1800 05/02/22 Insulin Glargine [Lantus Vial] 30 unit SQ BID 05/17/22 Acetaminophen Tab [Tylenol] 650 mg PO Q6HR PRN tab 05/20/22 Loratadine [Claritin] 10 mg PO DAILY #30 tab 05/20/22 SILVER sulfADIAZINE Cream [Silvadene 1% Cream] 1 applic TOPICAL BID PRN 06/28/22 Tamsulosin [Flomax] 0.4 mg PO DAILY@1800 06/28/22 Bumetanide [BUMEX] 1 mg PO BID@0900,1800 09/02/22 Levothyroxine Sodium [Synthroid] 150 mcg PO HS@0000 09/02/22 INSULIN LISPRO (HumaLOG) [humaLOG] 4 units SQ AC-BRKFST 12/15/22 oxyBUTYnin chloride [Ditropan] 5 mg PO BID@0900,1800 12/15/22 traZODone HCL [Desyrel] 50 mg PO HS@0000 12/15/22 Gabapentin [Neurontin] 400 mg PO QID@00,06,12,18 30 Days #120 cap 03/02/23 Gabapentin [Neurontin] 400 mg PO QID 30 Days #120 cap 04/27/23 methocarbamoL [Robaxin-750] 750 mg PO BID 30 Days #60 tab 04/27/23 oxyCODONE-APAP 7.5-325MG [Percocet 7.5-325 mg] 1 tab PO Q6HR PRN 30 Days #120 tab 04/27/23 oxyCODONE-APAP 7.5-325MG [Percocet 7.5-325 mg] 1 tab PO Q6HR PRN 30 Days #120 tab 04/27/23 Controlled Substance Measures - Controlled Substance Measures Is patient prescribed a controlled substance at discharge?: Yes When asked, does pt state using other controlled substances?: No If prescribed controlled substance>3 days was MAPS reviewed?: Yes
== END ==
LOC: PNWHC3 12:57
PROVIDERS: ATTEND Specialist
DX: M96.1 Postlaminectomy syndrome, not elsewhere classified (principal); Z87.891 Personal history of nicotine dependence; Z91.048 Other nonmedicinal substance allergy status; Z88.1 Allergy status to other antibiotic agents; Z91.09 Other allergy status, other than to drugs and biological substances; Z88.2 Allergy status to sulfonamides; Z88.8 Allergy status to other drugs, medicaments and biological substances
CPT/HCPCS: 99211

== ENCOUNTER 2023-05-15 20:55 | Observation (INO) | payer MEDICARE ==
--- NOTE | 2023-05-15 21:05 | ED ---
Chest Pain HPI - General Stated Complaint: Chest Pain Time Seen by Provider: 05/15/23 21:01 Source: EMS, RN notes reviewed, old records reviewed Mode of arrival: EMS Limitations: no limitations - History of Present Illness Initial Comments: This is a 82-year-old female to the ER for evaluation today. Patient went today for evaluation regards to significant chest pain here. Patient coming in for chest pain body aches body pain history of A-fib and CHF with shortness of breath occasional and worsening. MD Complaint: chest pain -: days(s) Onset: during rest, during exertion Pain Location: substernal, left chest Pain Radiation: none Severity: moderate Severity scale (1-10): 5 Quality: aching Consistency: intermittent Improves With: nothing Worsens With: nothing Anginal Symptoms: diaphoresis, dyspnea Other Symptoms: palpitations Treatments Prior to Arrival: none - Related Data Home Medications Medication Instructions Recorded Confirmed Latanoprost [Xalatan 0.005%] 1 drop BOTH EYES HS 08/11/17 05/15/23 predniSONE 10 mg PO DAILY 07/23/21 05/15/23 Magnesium Oxide 400 mg PO DAILY 08/30/21 05/15/23 Calcium Citrate/Vitamin D3 1 tab PO BID@0900,1700 11/16/21 05/15/23 [Citracal + D Maximum Caplet] Digoxin [Lanoxin] 125 mcg PO Q48H PRN 11/16/21 05/15/23 Nitroglycerin Sl Tabs [Nitrostat] 0.4 mg SL Q5M PRN 11/16/21 05/15/23 Adalimumab [Humira(Cf) Pen] 40 mg SQ Q14D 01/09/22 05/15/23 Apixaban [Eliquis] 5 mg PO BID@0900,1700 05/02/22 05/15/23 INSULIN LISPRO (HumaLOG) [humaLOG] 6 units SQ AC-TID 05/02/22 05/15/23 INSULIN LISPRO (HumaLOG) [humaLOG] See Protocol SQ AC-TID PRN 05/02/22 05/15/23 Multivit-Min/FA/Lycopen/Lutein 1 tab PO DAILY 05/02/22 05/15/23 [Centrum Silver Tablet] Insulin Glargine [Lantus Vial] 30 unit SQ DAILY 05/17/22 05/15/23 SILVER sulfADIAZINE Cream 1 applic TOPICAL BID PRN 06/28/22 05/15/23 [Silvadene 1% Cream] Tamsulosin [Flomax] 0.4 mg PO DAILY@1200 06/28/22 05/15/23 Bumetanide [BUMEX] 1 mg PO BID@0900,1700 09/02/22 05/15/23 Levothyroxine Sodium [Synthroid] 150 mcg PO HS@0000 09/02/22 05/15/23 traZODone HCL [Desyrel] 50 mg PO HS 12/15/22 05/15/23 Acetaminophen Tab [Tylenol] 325 mg PO QID PRN 05/15/23 05/15/23 Amiodarone [Cordarone] 100 mg PO DIRECTED 05/15/23 05/15/23 Clotrimazole Cream [Lotrimin Cream] 1 applic TOPICAL BID PRN 05/15/23 05/15/23 Gabapentin [Neurontin] 400 mg PO Q6H 05/15/23 05/15/23 Insulin Glargine [Lantus Vial] 15 unit SQ HS 05/15/23 05/15/23 Tolterodine ER [Detrol LA] 4 mg PO DAILY 05/15/23 05/15/23 metFORMIN HCL ER [Glucophage XR] 500 mg PO DIRECTED 05/15/23 05/15/23 methocarbamoL [Robaxin-750] 750 mg PO Q6H PRN 05/15/23 05/15/23 oxyCODONE-APAP 7.5-325MG [Percocet 1 tab PO QID 05/15/23 05/15/23 7.5-325 mg] Previous Rx's Medication Instructions Recorded Loratadine [Claritin] 10 mg PO DAILY #30 tab 05/20/22 clindamycin HCL [Cleocin] 300 mg PO Q6HR #40 cap 05/17/23 Allergies Allergy/AdvReac Type Severity Reaction Status Date / Time adhesive Allergy Rash/Hives Verified 05/15/23 23:38 cephalexin [From Keflex] Allergy Rash/Hives Verified 05/15/23 23:38 grass pollen Allergy Unknown Verified 05/15/23 23:38 mold Allergy Unknown Verified 05/15/23 23:38 Sulfa (Sulfonamide Allergy Rash/Hives Verified 05/15/23 23:38 Antibiotics) newspaper ink Allergy Mild Unknown Uncoded 04/19/23 17:45 Review of Systems ROS Statement: Those systems with pertinent positive or pertinent negative responses have been documented in the HPI. ROS Other: All systems not noted in ROS Statement are negative. EKG Findings - EKG Comments: EKG Findings:: EKG is A-fib 98 QRS 109 QTc 424 - EKG Results: EKG: interpreted by HERID Past Medical History Past Medical History: Atrial Fibrillation, Coronary Artery Disease (CAD), Cancer, Diabetes Mellitus, Hyperlipidemia, Hypertension, Musculoskeletal Disorder, Neurologic Disorder, Osteoarthritis (OA), Pneumonia, Renal Disease, Rheumatoid Arthritis (RA), Skin Disorder, Thyroid Disorder Additional Past Medical History / Comment(s): Morbid obesity, chronic atrial fibrillation, diabetes mellitus type 2, hypertension, hyperlipidemia, spinal stenosis, osteoarthritis, hypothyroidism, hypertension, history of skin melanoma, history of bursitis with MRSA post I&D, rheumatoid arthritis, Sjogren's disease, 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 without any indication of ILD related to RA, Fall on July 22 transfer to [facility] for MRI, then Fall on 11/16/21 History of Any Multi-Drug Resistant Organisms: MRSA Date of last positivie culture/infection: 09/02/22 MDRO Source:: Right Leg Past Surgical History: Back Surgery, Breast Surgery, Cholecystectomy, Heart Catheterization, Joint Replacement, Orthopedic Surgery Additional Past Surgical History / Comment(s): Bilateral cataracts with lens implants, arthroscopies to lt wrist, gualberto knees, gualberto ankles, gualberto hips, lt hip replacment and redone, L/R shoulder sxs, rt breast bx-benign, egd/colonoscopy, skin cancer removal L arm, Lumbar fixnation possible broken Past Anesthesia/Blood Transfusion Reactions: No Reported Reaction Additional Past Anesthesia/Blood Transfusion Reaction / Comment(s): Pt has been told not to have anesthesia metabolized by the kidneys and has neurologic Sjogren's with post anesthesia paralysis. Past Psychological History: No Psychological Hx Reported Additional Psychological History / Comment(s): . Smoking Status: Former smoker Past Alcohol Use History: None Reported Additional Past Alcohol Use History / Comment(s): Pt started smoking in 3 and quit in 1969 Past Drug Use History: None Reported - Past Family History Mother Family Medical History: CVA/TIA Additional Family Medical History / Comment(s): RUPTURED BOWEL Father Family Medical History: Cancer, Pneumonia Additional Family Medical History / Comment(s): ASPIRATIVE PNA Sister(s) Additional Family Medical History / Comment(s): at age 34 with lupus General Exam Limitations: no limitations General appearance: alert, in no apparent distress Head exam: Present: atraumatic, normocephalic, normal inspection Eye exam: Present: normal appearance, PERRL, EOMI. Absent: scleral icterus, conjunctival injection, periorbital swelling ENT exam: Present: normal exam, mucous membranes moist Neck exam: Present: normal inspection. Absent: tenderness, meningismus, lymphadenopathy Respiratory exam: Present: normal lung sounds bilaterally. Absent: respiratory distress, wheezes, rales, rhonchi, stridor Cardiovascular Exam: Present: regular rate, normal rhythm, normal heart sounds. Absent: systolic murmur, diastolic murmur, rubs, gallop, clicks GI/Abdominal exam: Present: soft, normal bowel sounds. Absent: distended, tenderness, guarding, rebound, rigid Extremities exam: Present: normal inspection, full ROM, normal capillary refill. Absent: tenderness, pedal edema, joint swelling, calf tenderness Back exam: Present: normal inspection Neurological exam: Present: alert, oriented X3, CN II-XII intact Psychiatric exam: Present: normal affect, normal mood Skin exam: Present: warm, dry, intact, normal color. Absent: rash Course Vital Signs 05/15/23 05/15/23 05/16/23 20:58 23:59 01:12 Pulse Rate 62 78 80 Respiratory 18 18 18 Rate Blood Pressure 133/74 140/77 O2 Sat by Pulse 98 99 97 Oximetry - Reevaluation(s) Reevaluation #1: 05/15/23 21:39 Medical record is reviewed. Reevaluation #2: 05/15/23 21:39 Patient still with chest pain here in the ER Reevaluation #3: 05/15/23 23:34 Patient informed of results and questions answered Reevaluation #4: Was pt. sent in by a medical professional or institution (, PA, CALL CENTER RECEPTIONIST, urgent care, hospital, or alf...) When possible be specific @ -no Did you speak to anyone other than the patient for history (EMS, parent, family, police, friend...)? What history was obtained from this source @ -no Did you review nursing and triage notes (agree or disagree)? Why? @ -agree Are old charts reviewed (outside hosp., previous admission, EMS record, old EKG, old radiological studies, urgent care reports/EKG's, alf records)? Report findings @ -yes Differential Diagnosis (chest pain, altered mental status, abdominal pain women, abdominal pain men, vaginal bleeding, weakness, fever, dyspnea, syncope, headache, dizziness, GI bleed, back pain, seizure, CVA, palpatations, mental health, musculoskeletal)? @ -prior EKG interpreted by me (3pts min.). @ -yes X-rays interpreted by me (1pt min.). @ -yes negative for acute disease CT interpreted by me (1pt min.). @ -no U/S interpreted by me (1pt. min.). @ -no What testing was considered but not performed or refused? (CT, X-rays, U/S, labs)? Why? @ -none What meds were considered but not given or refused? Why? @ -none Did you discuss the management of the patient with other professionals (professionals i.e. , PA, CALL CENTER RECEPTIONIST, lab, RT, psych nurse, social economist, vacuum cleaner mechanic, teacher, railway patrol officer, continuous pillowcase cutter)? Give summary @ -no Was smoking cessation discussed for >3mins.? @ -no Was critical care preformed (if so, how long)? @ -no Were there social determinants of health that impacted care today? How? (Homelessness, low income, unemployed, alcoholism, drug addiction, transportation, low edu. Level, literacy, decrease access to med. care, group home, rehab)? @ -none Was there de-escalation of care discussed even if they declined (Discuss DNR or withdrawal of care, Hospice)? DNR status @ -no What co-morbidities impacted this encounter? (DM, HTN, Smoking, COPD, CAD, Canc er, CVA, ARF, Chemo, Hep., AIDS, mental health diagnosis, sleep apnea, morbid obesity)? @ -none Was patient admitted / discharged? Hospital course, mention meds given and route, prescriptions, significant lab abnormalities, going to OR and other pertinent info. @ - 82 female to ER for evaluation of chest pain with lower extremity edema and swelling significant warmth to the lower extremity with weakness, patient states she is not feeling well and is and has not been feeling well Admitted Undiagnosed new problem with uncertain prognosis? @ -no Drug Therapy requiring intensive monitoring for toxicity (Heparin, Nitro, Insulin, Cardizem)? @ -no Were any procedures done? @ -no Diagnosis/symptom? @ -Weakness body aches and pains chest pain or shortness of breath Acute, or Chronic, or Acute on Chronic? @ -Acute Uncomplicated (without systemic symptoms) or Complicated (systemic symptoms)? @ -Complicated Side effects of treatment? @ -no Exacerbation, Progression, or Severe Exacerbation? @ -exacerbation Poses a threat to life or bodily function? How? (Chest pain, [place], [place], pneumonia, PE, COPD, DKA, ARF, appy, cholecystitis, CVA, Diverticulitis, Homicidal, Suicidal, threat to staff... and all critical care pts) @ -yes with extremes of age Reevaluation #5: Differential Chest Pain: Stable Angina, Unstable Angina, STEMI, NSTEMI Aortic Dissection, Pneumothorax, Musculoskeletal, Esophageal Spasm GERD, Cholecystitis, Pancreatitis, Zoster, this is not meant to be an all-inclusive list. - Consultations Consultation #1: Spoke with Dr. Hart who agrees to admit this patient Chest Pain MDM - MDM 82 female to ER for evaluation of chest pain with lower extremity edema and swelling significant warmth to the lower extremity with weakness, patient states she is not feeling well and is and has not been feeling well Disposition Clinical Impression: Cellulitis, leg, Generalized weakness, Allergy to multiple antibiotics, Chest pain, Bilateral lower leg cellulitis Disposition: ADMITTED IP TO THIS HOSP Condition: Fair Is patient prescribed a controlled substance at d/c from ED?: No Time of Disposition: 23:25
[2023-05-15 21:20] LABS: Anisocytosis Slight; Basophils # (A) 0.1 k/uL (0-0.2); Basophils % (A) 1 %; Eosinophils # (A) 0.2 k/uL (0-0.7); Eosinophils % (A) 3 %; HCT 35.7 % (34.0-46.0); HGB 11.6 gm/dL (11.4-16.0); Hypochromasia Moderate; Lymphocytes # (A) 1.7 k/uL (1.0-4.8); Lymphocytes % (A) 25 %; MCH 30.4 pg (25.0-35.0); MCHC 32.4 g/dL (31.0-37.0); MCV 93.9 fL (80.0-100.0); Monocytes # (A) 0.4 k/uL (0-1.0); Monocytes % (A) 6 %; Neutrophils # (A) 4.3 k/uL (1.3-7.7); Neutrophils % (A) 64 %; Platelet Count 150 k/uL (150-450); RDW 17.1 % (11.5-15.5); WBC 6.8 k/uL (3.8-10.6)
[2023-05-15] MEDS: MORPHINE SULFATE 4 MG/ML SYRINGE IV STA (21:25)
[2023-05-15 21:29] LABS: INR 1.1 (<1.2); Partial Thromboplastin Time 25.4 sec (22.0-30.0)
[2023-05-15 21:30] LABS: ALT 19 U/L (4-34); AST 30 U/L (14-36); African American GFR (CKD) 78 (>60 ml/min/1.73 sqM); Albumin 3.5 g/dL (3.5-5.0); Alkaline Phosphatase 96 U/L (38-126); Anion Gap 7 mmol/L; Blood Urea Nitrogen 23 mg/dL (7-17); Calcium 8.9 mg/dL (8.4-10.2); Carbon Dioxide 31 mmol/L (22-30); Chloride 101 mmol/L (98-107); Glucose 251 mg/dL (74-99); Lipase 26 U/L (23-300); Non-African American GFR(CKD) 67 (>60 ml/min/1.73 sqM); Potassium 4.4 mmol/L (3.5-5.1); Sodium 139 mmol/L (137-145); Total Bilirubin 0.6 mg/dL (0.2-1.3); Total Protein 7.1 g/dL (6.3-8.2)
[2023-05-15 21:39] LABS: NT-Pro-B-Type Natriuretic Pept 964 pg/mL
--- NOTE | 2023-05-15 22:33 | XR ---
EXAMINATION TYPE: XR chest 1V portable DATE OF EXAM: 05/15/2023 10:16 PM CLINICAL INDICATION:Female, 82 years old with history of chest pain; [facility] COMPARISON: Chest radiographs from 01/14/2023 TECHNIQUE: XR chest 1V portable Frontal view of the chest. FINDINGS: Lungs/Pleura: There is no evidence of pleural effusion, focal consolidation, or pneumothorax. Pulmonary vascularity: Unremarkable. Heart/mediastinum: Cardiomediastinal silhouette is enlarged and stable. Atherosclerotic calcificatio ns are seen in the aorta. Musculoskeletal: No acute osseous pathology. IMPRESSION: No acute cardiopulmonary disease/process.
[2023-05-15] MEDS ORDERED: ONDANSETRON 4 MG/2 ML VIAL IVP PRN (23:30)
[2023-05-15] MEDS ORDERED: NALOXONE 0.4 MG/ML 1 ML VIAL IV PRN (23:30)
[2023-05-15] MEDS: CLINDAMYCIN 600 MG in DEXTROSE 5% IN WATER 50 ML IVPB STA (23:57)
[2023-05-16] MEDS: MORPHINE SULFATE 4 MG/ML SYRINGE IV PRN (02:01)
[2023-05-16 06:12] LABS: Glucose,Whole Blood 132 mg/dL (70-110)
[2023-05-16 06:59] LABS: Anisocytosis Slight; Basophils % (A) 1 %; Eosinophils # (A) 0.2 k/uL (0-0.7); Eosinophils % (A) 4 %; HCT 36.3 % (34.0-46.0); HGB 11.1 gm/dL (11.4-16.0); Hypochromasia Marked; Lymphocytes # (A) 2.4 k/uL (1.0-4.8); Lymphocytes % (A) 36 %; MCH 28.9 pg (25.0-35.0); MCHC 30.4 g/dL (31.0-37.0); MCV 94.8 fL (80.0-100.0); Mean Platelet Volume 7.9; Monocytes # (A) 0.4 k/uL (0-1.0); Monocytes % (A) 6 %; Neutrophils # (A) 3.3 k/uL (1.3-7.7); Neutrophils % (A) 50 %; Platelet Count 150 k/uL (150-450); RBC 3.83 m/uL (3.80-5.40); WBC 6.5 k/uL (3.8-10.6)
[2023-05-16 07:18] LABS: ALT 18 U/L (4-34); AST 25 U/L (14-36); African American GFR (CKD) 75 (>60 ml/min/1.73 sqM); Albumin 3.3 g/dL (3.5-5.0); Alkaline Phosphatase 89 U/L (38-126); Anion Gap 5 mmol/L; Blood Urea Nitrogen 21 mg/dL (7-17); Calcium 8.8 mg/dL (8.4-10.2); Carbon Dioxide 32 mmol/L (22-30); Chloride 104 mmol/L (98-107); Glucose 132 mg/dL (74-99); Non-African American GFR(CKD) 65 (>60 ml/min/1.73 sqM); Sodium 141 mmol/L (137-145); Total Bilirubin 0.4 mg/dL (0.2-1.3); Total Protein 6.7 g/dL (6.3-8.2)
[2023-05-16] MEDS: CLINDAMYCIN 600 MG in DEXTROSE 5% IN WATER 50 ML IVPB SCH (07:58)
[2023-05-16] MEDS: PANTOPRAZOLE 40 MG/10 ML VIAL IV SCH (07:59)
[2023-05-16] MEDS ORDERED: NITROGLYCERIN SL TABS 0.4 MG TAB SUBLINGUAL PRN (08:24)
[2023-05-16] MEDS ORDERED: ACETAMINOPHEN TAB 325 MG TAB PO PRN (08:24)
[2023-05-16] MEDS ORDERED: AMIODARONE 100 MG TAB PO SCH (08:30)
--- NOTE | 2023-05-16 08:53 | P.HPIM ---
History of Present Illness H&P Date: 05/16/23 Chief Complaint: chest pain This is an 82-year-old female who presented to the emergency room with complaints of chest pain. Patient describes pain as more of a discomfort and is chronic in nature. Patient reports she has just not been feeling well. Does have chronic wounds on bilateral legs and cellulitis. Patient lives with her at home. She has had progressive weakness and limited mobility in the last several years. Past medical history includes atrial fibrillation, CAD, diabetes, hyperlipidemia, hypertension, arthritis, renal disease, and hypothyroidism. Chest x-ray on admission negative. She is seen this morning sitting in chair at side of bed. Reports her chest pain has improved but she is concerned for her legs. Review of Systems Constitutional: Reports weakness, Denies chills, Denies fever Cardiovascular: Reports chest pain, Denies dyspnea on exertion Respiratory: Denies cough, Denies dyspnea Musculoskeletal: Denies arm numbness/tingling, Denies leg numbness/tingling Integumentary: Reports lesions, Reports wounds Neurological: Reports weakness, Denies headaches Past Medical History Past Medical History: Atrial Fibrillation, Coronary Artery Disease (CAD), Cancer, Diabetes Mellitus, Hyperlipidemia, Hypertension, Musculoskeletal D isorder, Neurologic Disorder, Osteoarthritis (OA), Pneumonia, Renal Disease, Rheumatoid Arthritis (RA), Skin Disorder, Thyroid Disorder Additional Past Medical History / Comment(s): Morbid obesity, chronic atrial fibrillation, diabetes mellitus type 2, hypertension, hyperlipidemia, spinal stenosis, osteoarthritis, hypothyroidism, hypertension, history of skin melanoma, history of bursitis with MRSA post I&D, rheumatoid arthritis, Sjogren's disease, 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 without any indication of ILD related to RA, Fall on July 22 transfer to [facility] for MRI, then Fall on 11/16/21 History of Any Multi-Drug Resistant Organisms: MRSA Date of last positivie culture/infection: 09/02/22 MDRO Source:: Right Leg Past Surgical History: Back Surgery, Breast Surgery, Cholecystectomy, Heart Catheterization, Joint Replacement, Orthopedic Surgery Additional Past Surgical History / Comment(s): Bilateral cataracts with lens implants, arthroscopies to lt wrist, gualberto knees, gualberto ankles, gualberto hips, lt hip replacment and redone, L/R shoulder sxs, rt breast bx-benign, egd/colonoscopy, skin cancer removal L arm, Lumbar fixnation possible broken Past Anesthesia/Blood Transfusion Reactions: No Reported Reaction Additional Past Anesthesia/Blood Transfusion Reaction / Comment(s): Pt has been told not to have anesthesia metabolized by the kidneys and has neurologic Sjogren's with post anesthesia paralysis. Past Psychological History: No Psychological Hx Reported Additional Psychological History / Comment(s): . Smoking Status: Former smoker Past Alcohol Use History: None Reported Additional Past Alcohol Use History / Comment(s): Pt started smoking in 3 and quit in 1969 Past Drug Use History: None Reported - Past Family History Mother Family Medical History: CVA/TIA Additional Family Medical History / Comment(s): RUPTURED BOWEL Father Family Medical History: Cancer, Pneumonia Additional Family Medical History / Comment(s): ASPIRATIVE PNA Sister(s) Additional Family Medical History / Comment(s): at age 34 with lupus Medications and Allergies Home Medications Medication Instructions Recorded Confirmed Type Latanoprost [Xalatan 0.005%] 1 drop BOTH EYES HS 08/11/17 05/15/23 History predniSONE 10 mg PO DAILY 07/23/21 05/15/23 History Magnesium Oxide 400 mg PO DAILY 08/30/21 05/15/23 History Calcium Citrate/Vitamin D3 1 tab PO BID@0900,1700 11/16/21 05/15/23 History [Citracal + D Maximum Caplet] Digoxin [Lanoxin] 125 mcg PO Q48H PRN 11/16/21 05/15/23 History Nitroglycerin Sl Tabs [Nitrostat] 0.4 mg SL Q5M PRN 11/16/21 05/15/23 History Adalimumab [Humira(Cf) Pen] 40 mg SQ Q14D 01/09/22 05/15/23 History Apixaban [Eliquis] 5 mg PO BID@0900,1700 05/02/22 05/15/23 History INSULIN LISPRO (HumaLOG) [humaLOG] 6 units SQ AC-TID 05/02/22 05/15/23 History INSULIN LISPRO (HumaLOG) [humaLOG] See Protocol SQ AC-TID PRN 05/02/22 05/15/23 History Multivit-Min/FA/Lycopen/Lutein 1 tab PO DAILY 05/02/22 05/15/23 History [Centrum Silver Tablet] Insulin Glargine [Lantus Vial] 30 unit SQ DAILY 05/17/22 05/15/23 History Loratadine [Claritin] 10 mg PO DAILY #30 tab 05/20/22 05/15/23 Rx SILVER sulfADIAZINE Cream 1 applic TOPICAL BID PRN 06/28/22 05/15/23 History [Silvadene 1% Cream] Tamsulosin [Flomax] 0.4 mg PO DAILY@1200 06/28/22 05/15/23 History Bumetanide [BUMEX] 1 mg PO BID@0900,1700 09/02/22 05/15/23 History Levothyroxine Sodium [Synthroid] 150 mcg PO HS@0000 09/02/22 05/15/23 History traZODone HCL [Desyrel] 50 mg PO HS 12/15/22 05/15/23 History Acetaminophen Tab [Tylenol] 325 mg PO QID PRN 05/15/23 05/15/23 History Amiodarone [Cordarone] 100 mg PO DIRECTED 05/15/23 05/15/23 History Clotrimazole Cream [Lotrimin Cream] 1 applic TOPICAL BID PRN 05/15/23 05/15/23 History Gabapentin [Neurontin] 400 mg PO Q6H 05/15/23 05/15/23 History Insulin Glargine [Lantus Vial] 15 unit SQ HS 05/15/23 05/15/23 History Tolterodine ER [Detrol LA] 4 mg PO DAILY 05/15/23 05/15/23 History metFORMIN HCL ER [Glucophage XR] 500 mg PO DIRECTED 05/15/23 05/15/23 History methocarbamoL [Robaxin-750] 750 mg PO Q6H PRN 05/15/23 05/15/23 History oxyCODONE-APAP 7.5-325MG [Percocet 1 tab PO QID 05/15/23 05/15/23 History 7.5-325 mg] Allergies Allergy/AdvReac Type Severity Reaction Status Date / Time adhesive Allergy Rash/Hives Verified 05/15/23 23:38 cephalexin [From Keflex] Allergy Rash/Hives Verified 05/15/23 23:38 grass pollen Allergy Unknown Verified 05/15/23 23:38 mold Allergy Unknown Verified 05/15/23 23:38 Sulfa (Sulfonamide Allergy Rash/Hives Verified 05/15/23 23:38 Antibiotics) newspaper ink Allergy Mild Unknown Uncoded 04/19/23 17:45 Physical Exam Vitals: Vital Signs Temp Pulse Pulse Resp BP BP Pulse Ox 05/16/23 07:27 97.9 F 74 17 136/72 98 05/16/23 02:21 74 142/71 96 05/16/23 01:12 80 18 97 05/15/23 23:59 78 18 140/77 99 05/15/23 20:58 62 18 133/74 98 Intake and Output 05/15/23 05/16/23 05/16/23 22:59 06:59 14:59 Other: # Voids 4 Weight 140.614 kg 140.614 kg - Constitutional General appearance: cooperative, no acute distress - EENT Eyes: PERRLA - Neck Neck: no lymphadenopathy, normal ROM, no rigidity - Respiratory Respiratory: bilateral: CTA - Cardiovascular Heart sounds: normal: S1, S2 - Gastrointestinal General gastrointestinal: soft, no tenderness - Integumentary Multiple wounds healing in various stages to bilateral legs - Musculoskeletal Musculoskeletal: generalized weakness - Psychiatric Psychiatric: A&O x's 3, appropriate affect, intact judgment & insight Results CBC & Chem 7: 05/16/23 06:29 05/16/23 06:29 Labs: Abnormal Lab Results - Last 24 Hours (Table) 05/15/23 05/15/23 05/16/23 Range/Units 21:08 21:08 06:11 Hgb (11.4-16.0) gm/dL MCHC (31.0-37.0) g/dL RDW 17.1 H (11.5-15.5) % Carbon Dioxide 31 H (22-30) mmol/L BUN 23 H (7-17) mg/dL Glucose 251 H (74-99) mg/dL POC Glucose (mg/dL) 132 H (70-110) mg/dL Albumin (3.5-5.0) g/dL 05/16/23 05/16/23 Range/Units 06:29 06:29 Hgb 11.1 L (11.4-16.0) gm/dL MCHC 30.4 L (31.0-37.0) g/dL RDW 17.0 H (11.5-15.5) % Carbon Dioxide 32 H (22-30) mmol/L BUN 21 H (7-17) mg/dL Glucose 132 H (74-99) mg/dL POC Glucose (mg/dL) (70-110) mg/dL Albumin 3.3 L (3.5-5.0) g/dL Thrombosis Risk Factor Assmnt - Choose All That Apply Any of the Below Risk Factors Present?: Yes Each Factor Represents 1 point: Obesity (BMI >25), Swollen legs (current) Other Risk Factors: No Other congenital or acquired thrombophilia - If yes, enter type in comment: No Thrombosis Risk Factor Assessment Total Risk Factor Score: 2 Thrombosis Risk Factor Assessment Level: Low Risk Assessment and Plan (1) Cellulitis, leg Current Visit: Yes Status: Acute Code(s): L03.119 - CELLULITIS OF UNSPECIFIED PART OF LIMB SNOMED Code(s): 433672705 (2) Chest pain Current Visit: Yes Status: Acute Code(s): R07.9 - CHEST PAIN, UNSPECIFIED SNOMED Code(s): 98003522 (3) Generalized weakness Current Visit: Yes Status: Acute Code(s): R53.1 - WEAKNESS SNOMED Code(s): 66090084 (4) Atrial fibrillation Current Visit: No Status: Acute Code(s): I48.91 - UNSPECIFIED ATRIAL FIBRILLATION SNOMED Code(s): 02892266 (5) Back pain Current Visit: No Status: Acute Code(s): M54.9 - DORSALGIA, UNSPECIFIED SNOMED Code(s): 800177232 (6) CAD (coronary artery disease) Current Visit: No Status: Acute Code(s): I25.10 - ATHSCL HEART DISEASE OF [place] CORONARY ARTERY W/O ANG PCTRS SNOMED Code(s): 09555568 (7) CHF (congestive heart failure) Current Visit: No Status: Acute Code(s): I50.9 - HEART FAILURE, UNSPECIFIED SNOMED Code(s): 28024716 (8) Diabetes Current Visit: No Status: Acute Code(s): E11.9 - TYPE 2 DIABETES MELLITUS WITHOUT COMPLICATIONS SNOMED Code(s): 48472850 (9) Hyperlipidemia Current Visit: No Status: Acute Code(s): E78.5 - HYPERLIPIDEMIA, UNSPECIFIED SNOMED Code(s): 35823970 (10) Hypertension Current Visit: No Status: Acute Code(s): I10 - ESSENTIAL (PRIMARY) HYPERTENSION SNOMED Code(s): 59274334 (11) Hypothyroidism Current Visit: No Status: Acute Code(s): E03.9 - HYPOTHYROIDISM, UNSPECIFIED SNOMED Code(s): 93759298 Plan: Home medications reconciled. Change diet to carb controlled, will order Accu-Cheks and sliding scale Consult to infectious disease regarding cellulitis and chronic wounds Consult PT and OT Patient seen and evaluated by nurse practitioner, physician in agreement with plan
[2023-05-16] MEDS: predniSONE 10 MG TAB PO SCH (09:13)
[2023-05-16] MEDS: OXYBUTYNIN XL 5 MG TAB.ER.24 PO SCH (09:13)
[2023-05-16] MEDS: oxyCODONE-APAP 7.5-325MG 1 EACH TAB PO SCH (09:13)
[2023-05-16] MEDS: APIXABAN 5 MG TAB PO SCH (09:14)
[2023-05-16] MEDS: MAGNESIUM OXIDE 400 MG TAB PO SCH (09:14)
[2023-05-16] MEDS: MULTIVITAMINS, THERA 1 EACH TAB PO SCH (09:14)
[2023-05-16] MEDS: CALCIUM CARB-VIT D 500 MG-5 MCG TAB PO SCH (09:14)
[2023-05-16] MEDS: LORATADINE 10 MG TAB PO SCH (09:14)
[2023-05-16] MEDS: INSULIN DETEMIR (LEVEMIR) 100 UNIT/ML SYR SQ SCH ×2 (09:46→22:17)
[2023-05-16] MEDS: BUMETANIDE 1 MG TAB PO SCH (09:47)
[2023-05-16 11:37] LABS: Glucose,Whole Blood 107 mg/dL (70-110)
[2023-05-16] MEDS: INSULIN ASPART (NovoLOG) 100 UNIT/ML VIAL SQ SCH ×2 (11:49→11:51)
[2023-05-16] MEDS: GABAPENTIN 400 MG CAP PO SCH (11:50)
[2023-05-16] MEDS: TAMSULOSIN 0.4 MG CAP.ER.24H PO SCH (11:50)
[2023-05-16 14:17] VITALS: BMI 38.7
[2023-05-16 16:40] LABS: Glucose,Whole Blood 217 mg/dL (70-110)
[2023-05-16] MEDS: metFORMIN 500 MG TAB PO SCH (17:36)
[2023-05-16 20:39] LABS: Glucose,Whole Blood 163 mg/dL (70-110)
[2023-05-16] MEDS: LATANOPROST 0.005% OPHTH DROPS 2.5 ML BTL BOTH EYES SCH (22:17)
[2023-05-16] MEDS: traZODone HCL 50 MG TAB PO SCH (22:22)
--- NOTE | 2023-05-16 22:50 | P.CONS ---
History of Present Illness - Reason for Consult Consult date: 05/16/23 Cellulitis bilateral leg wound Requesting physician: Shira Venegas - Chief Complaint Chest pain increasing swelling bilateral lower extremity x days - History of Present Illness Patient is a 82-year-old female with a past medical history significant for coronary artery disease diabetes mellitus hypertension hyperlipidemia atrial fibrillation presenting to the hospital for evaluation of chest pain and not feeling well patient also noticed to have increasing swelling to bilateral lower extremity with redness concerning for cellulitis prompting this consultation patient mention having problem with increasing swelling to bilateral extremity for couple of weeks to months noted to have increasing swelling as well as redness over the last few days patient did have some superficial ulceration from ruptured blister but denies having any foul-smelling drainage has been complaining of pain to bilateral lower extremity to be more of a dull aching to sharp moderate intensity without any radiation did have some chills but denies high-grade fever on presentation to the hospital the patient was afebrile patient did have a white count of 6.5 creatinine was normal liver enzymes are normal patient received a dose of Rocephin in the ER has been started on clindamycin infectious disease was consulted for further management of antibiotic because of her allergies Review of Systems Positive point and negatives has been mentioned in the HPI, complete review of systems was performed and all other systems are negative Past Medical History Past Medical History: Atrial Fibrillation, Coronary Artery Disease (CAD), Cancer, Diabetes Mellitus, Hyperlipidemia, Hypertension, Musculoskeletal Disord er, Neurologic Disorder, Osteoarthritis (OA), Pneumonia, Renal Disease, Rheumatoid Arthritis (RA), Skin Disorder, Thyroid Disorder Additional Past Medical History / Comment(s): Morbid obesity, chronic atrial fibrillation, diabetes mellitus type 2, hypertension, hyperlipidemia, spinal stenosis, osteoarthritis, hypothyroidism, hypertension, history of skin melanoma, history of bursitis with MRSA post I&D, rheumatoid arthritis, Sjogren's disease, 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 without any indication of ILD related to RA, Fall on July 22 transfer to [facility] for MRI, then Fall on 11/16/21 History of Any Multi-Drug Resistant Organisms: MRSA Year Discovered:: 09/02/22 MDRO Source:: Right Leg Past Surgical History: Back Surgery, Breast Surgery, Cholecystectomy, Heart Catheterization, Joint Replacement, Orthopedic Surgery Additional Past Surgical History / Comment(s): Bilateral cataracts with lens implants, arthroscopies to lt wrist, gualberto knees, gualberto ankles, gualberto hips, lt hip replacment and redone, L/R shoulder sxs, rt breast bx-benign, egd/colonoscopy, skin cancer removal L arm, Lumbar fixnation possible broken Past Anesthesia/Blood Transfusion Reactions: No Reported Reaction Additional Past Anesthesia/Blood Transfusion Reaction / Comm: Pt has been told not to have anesthesia metabolized by the kidneys and has neurologic Sjogren's with post anesthesia paralysis. Past Psychological History: No Psychological Hx Reported Additional Psychological History / Comment(s): . Smoking Status: Former smoker Past Alcohol Use History: None Reported Additional Past Alcohol Use History / Comment(s): Pt started smoking in 3 and quit in 1969 Past Drug Use History: None Reported - Past Family History Mother Family Medical History: CVA/TIA Additional Family Medical History / Comment(s): RUPTURED BOWEL Father Family Medical History: Cancer, Pneumonia Additional Family Medical History / Comment(s): ASPIRATIVE PNA Sister(s) Additional Family Medical History / Comment(s): at age 34 with lupus Medications and Allergies Home Medications Medication Instructions Recorded Confirmed Type Latanoprost [Xalatan 0.005%] 1 drop BOTH EYES HS 08/11/17 05/15/23 History predniSONE 10 mg PO DAILY 07/23/21 05/15/23 History Magnesium Oxide 400 mg PO DAILY 08/30/21 05/15/23 History Calcium Citrate/Vitamin D3 1 tab PO BID@0900,1700 11/16/21 05/15/23 History [Citracal + D Maximum Caplet] Digoxin [Lanoxin] 125 mcg PO Q48H PRN 11/16/21 05/15/23 History Nitroglycerin Sl Tabs [Nitrostat] 0.4 mg SL Q5M PRN 11/16/21 05/15/23 History Adalimumab [Humira(Cf) Pen] 40 mg SQ Q14D 01/09/22 05/15/23 History Apixaban [Eliquis] 5 mg PO BID@0900,1700 05/02/22 05/15/23 History INSULIN LISPRO (HumaLOG) [humaLOG] 6 units SQ AC-TID 05/02/22 05/15/23 History INSULIN LISPRO (HumaLOG) [humaLOG] See Protocol SQ AC-TID PRN 05/02/22 05/15/23 History Multivit-Min/FA/Lycopen/Lutein 1 tab PO DAILY 05/02/22 05/15/23 History [Centrum Silver Tablet] Insulin Glargine [Lantus Vial] 30 unit SQ DAILY 05/17/22 05/15/23 History Loratadine [Claritin] 10 mg PO DAILY #30 tab 05/20/22 05/15/23 Rx SILVER sulfADIAZINE Cream 1 applic TOPICAL BID PRN 06/28/22 05/15/23 History [Silvadene 1% Cream] Tamsulosin [Flomax] 0.4 mg PO DAILY@1200 06/28/22 05/15/23 History Bumetanide [BUMEX] 1 mg PO BID@0900,1700 09/02/22 05/15/23 History Levothyroxine Sodium [Synthroid] 150 mcg PO HS@0000 09/02/22 05/15/23 History traZODone HCL [Desyrel] 50 mg PO HS 12/15/22 05/15/23 History Acetaminophen Tab [Tylenol] 325 mg PO QID PRN 05/15/23 05/15/23 History Amiodarone [Cordarone] 100 mg PO DIRECTED 05/15/23 05/15/23 History Clotrimazole Cream [Lotrimin Cream] 1 applic TOPICAL BID PRN 05/15/23 05/15/23 History Gabapentin [Neurontin] 400 mg PO Q6H 05/15/23 05/15/23 History Insulin Glargine [Lantus Vial] 15 unit SQ HS 05/15/23 05/15/23 History Tolterodine ER [Detrol LA] 4 mg PO DAILY 05/15/23 05/15/23 History metFORMIN HCL ER [Glucophage XR] 500 mg PO DIRECTED 05/15/23 05/15/23 History methocarbamoL [Robaxin-750] 750 mg PO Q6H PRN 05/15/23 05/15/23 History oxyCODONE-APAP 7.5-325MG [Percocet 1 tab PO QID 05/15/23 05/15/23 History 7.5-325 mg] clindamycin HCL [Cleocin] 300 mg PO Q6HR #40 cap 05/17/23 Rx Allergies Allergy/AdvReac Type Severity Reaction Status Date / Time adhesive Allergy Rash/Hives Verified 05/15/23 23:38 cephalexin [From Keflex] Allergy Rash/Hives Verified 05/15/23 23:38 grass pollen Allergy Unknown Verified 05/15/23 23:38 mold Allergy Unknown Verified 05/15/23 23:38 Sulfa (Sulfonamide Allergy Rash/Hives Verified 05/15/23 23:38 Antibiotics) newspaper ink Allergy Mild Unknown Uncoded 04/19/23 17:45 Physical Exam Vitals: Vital Signs Temp Pulse Pulse Resp BP BP Pulse Ox 05/16/23 07:27 97.9 F 74 17 136/72 98 05/16/23 02:21 74 142/71 96 05/16/23 01:12 80 18 97 05/15/23 23:59 78 18 140/77 99 05/15/23 20:58 62 18 133/74 98 Intake and Output 05/15/23 05/16/23 05/16/23 22:59 06:59 14:59 Other: # Voids 4 Weight 140.614 kg 140.614 kg GENERAL DESCRIPTION: Elderly female lying in bed, no distress. No tachypnea or accessory muscle of respiration use. HEENT: Shows Pallor , no scleral icterus. Oral mucous membrane is dry. NECK: Trachea central, no thyromegaly. LUNGS: Unlabored breathing. Decreased breath sound the base HEART: S1, S2, regular rate and rhythm. No loud murmur ABDOMEN: Soft, no tenderness EXTREMITIES: Diffuse swelling to bilateral lower extremity some superficial ulceration from the blister with erythema warm and tender to touch SKIN: No rash, no masses palpable. NEUROLOGICAL: The patient is awake, alert, oriented x3, mood and affect normal. Results CBC & Chem 7: 05/17/23 05:29 05/17/23 05:29 Labs: Abnormal Lab Results - Last 24 Hours (Table) 05/15/23 05/15/23 05/16/23 Range/Units 21:08 21:08 06:11 Hgb (11.4-16.0) gm/dL MCHC (31.0-37.0) g/dL RDW 17.1 H (11.5-15.5) % Carbon Dioxide 31 H (22-30) mmol/L BUN 23 H (7-17) mg/dL Glucose 251 H (74-99) mg/dL POC Glucose (mg/dL) 132 H (70-110) mg/dL Albumin (3.5-5.0) g/dL 05/16/23 05/16/23 Range/Units 06:29 06:29 Hgb 11.1 L (11.4-16.0) gm/dL MCHC 30.4 L (31.0-37.0) g/dL RDW 17.0 H (11.5-15.5) % Carbon Dioxide 32 H (22-30) mmol/L BUN 21 H (7-17) mg/dL Glucose 132 H (74-99) mg/dL POC Glucose (mg/dL) (70-110) mg/dL Albumin 3.3 L (3.5-5.0) g/dL Assessment and Plan (1) Allergy to multiple antibiotics Status: Acute Code(s): Z88.1 - ALLERGY STATUS TO OTHER ANTIBIOTIC AGENTS SNOMED Code(s): 917272919 (2) Bilateral lower leg cellulitis Status: Acute Code(s): L03.116 - CELLULITIS OF LEFT LOWER LIMB; L03.115 - CELLULITIS OF RIGHT LOWER LIMB SNOMED Code(s): 292795702 Plan: 1patient presented hospital with multiple symptoms including chest pain also noted to have increasing swelling to bilateral lower extremity with some erythema concerning for cellulitis likely from gram-positive skin osei in this patient who did have evidence of fluid overload 2-patient with multiple antibiotic ALLERGIES that would limit the number of antibiotic safe to use 3-we will benoit the area of the redness and then apply Rocael wrap to get some of the swelling down that we will help with the healing process 4-clindamycin 600 mg every 8 hours while waiting for the culture to finalize We will follow on clinical condition and cultures to further adjust medication if needed Thank you for this consultation we will follow the patient along with you Dictation was produced using [employer] dictation software. please excuse any grammatical, word or spelling errors. Time with Patient: Greater than 30
[2023-05-17 00:08] VITALS: RESP 16
[2023-05-17] MEDS: LEVOTHYROXINE 75 MCG TAB PO SCH (00:14)
[2023-05-17 06:07] LABS: Glucose,Whole Blood 190 mg/dL (70-110)
[2023-05-17 07:41] VITALS: BP 135/72; PULSE 91; TEMP 97.3
[2023-05-17 08:47] LABS: HCT 36.1 % (37.2-46.3); HGB 11.2 g/dL (12.0-15.0); MCH 28.4 pg (27.0-32.0); MCV 91.6 FL (80.0-97.0); Mean Platelet Volume 10.2 FL (9.5-12.2); NRBC Per 100 WBC 0 X 10*3/uL (0.00-0.01); Platelet Count 155 X 10*3/uL (140-440); RBC 3.94 X 10*6/uL (4.10-5.20); RDW 17.6 % (11.5-14.5); WBC 6.98 X 10*3/uL (4.50-10.00)
[2023-05-17 09:14] LABS: ALT 16 U/L (8-44); AST 23 U/L (13-35); Albumin 3.7 g/dL (3.8-4.9); Albumin/Globulin Ratio 1.12 Ratio (1.60-3.17); Alkaline Phosphatase 89 U/L (41-126); BUN/Creat Ratio 19.09 Ratio (12.00-20.00); Calcium 8.9 mg/dL (8.7-10.3); Carbon Dioxide 28.7 mmol/L (21.6-31.8); Chloride 102 mmol/L (96-109); Globulin 3.3 g/dL (1.6-3.3); Glucose 186 mg/dL (70-110); Potassium 4.2 mmol/L (3.5-5.5); Sodium 142 mmol/L (135-145); Total Bilirubin 0.3 mg/dL (0.3-1.2)
[2023-05-17] MEDS: DIGOXIN 125 MCG TAB PO SCH (09:26)
[2023-05-17 11:18] LABS: Glucose,Whole Blood 152 mg/dL (70-110)
[2023-05-17] MEDS: CLINDAMYCIN 150 MG CAP PO SCH (11:57)
--- NOTE | 2023-05-18 14:34 | P.PN ---
Subjective Progress Note Date: 05/17/23 Principal diagnosis: Reason for follow-up is bilateral lower extremity cellulitis Patient is a 82-year-old female with multiple comorbidities presented to hospital with chest pain as well as increasing shortness of breath noticed to have increasing swelling to bilateral lower extremity and concerning for cellulitis. On today's evaluation that is 05/17/2023,the patient denies any fever or any chills, patient is breathing comfortably on 2 L nasal cannula oxygen the patient denies chest pain shortness of breath and no significant cough, patient denies abdominal pain, no nausea vomiting or diarrhea, bilateral extremity swelling redness slightly decreased. Patient had white count of 6.98, creatinine is 1.1 Objective - Vital Signs Vital signs: Vital Signs Temp 97.3 F L 05/17/23 07:32 Pulse 91 05/17/23 07:32 Resp 16 05/17/23 07:32 BP 135/72 05/17/23 07:32 Pulse Ox 98 05/17/23 08:38 FiO2 Intake & Output 05/16/23 05/17/23 05/17/23 18:59 06:59 18:59 Weight 140.614 kg Other: Voiding Method Bedside Commode # Voids 6 3 - Exam GENERAL DESCRIPTION: An elderly female up in bed in no distress RESPIRATORY SYSTEM: Unlabored breathing , decreased breath sounds at bases HEART: S1 S2 regular rate and rhythm , ABDOMEN: Soft , no tenderness EXTREMITIES: Bilateral legs are currently wrapped - Labs CBC & Chem 7: 05/17/23 05:29 05/17/23 05:29 Labs: Abnormal Lab Results - Last 24 Hours (Table) 05/16/23 05/16/23 05/17/23 Range/Units 16:38 20:37 05:29 RBC 3.94 L (4.10-5.20) X 10*6/uL Hgb 11.2 L (12.0-15.0) g/dL Hct 36.1 L (37.2-46.3) % MCHC 31.0 L (32.0-37.0) g/dL RDW 17.6 H (11.5-14.5) % Est GFR (CKD-EPI) (>=60) Glucose (70-110) mg/dL POC Glucose (mg/dL) 217 H 163 H (70-110) mg/dL Albumin (3.8-4.9) g/dL Albumin/Globulin Ratio (1.60-3.17) Ratio 05/17/23 05/17/23 05/17/23 Range/Units 05:29 06:05 11:16 RBC (4.10-5.20) X 10*6/uL Hgb (12.0-15.0) g/dL Hct (37.2-46.3) % MCHC (32.0-37.0) g/dL RDW (11.5-14.5) % Est GFR (CKD-EPI) 50 L (>=60) Glucose 186 H (70-110) mg/dL POC Glucose (mg/dL) 190 H 152 H (70-110) mg/dL Albumin 3.7 L (3.8-4.9) g/dL Albumin/Globulin Ratio 1.12 L (1.60-3.17) Ratio Assessment and Plan (1) Allergy to multiple antibiotics Status: Acute Code(s): Z88.1 - ALLERGY STATUS TO OTHER ANTIBIOTIC AGENTS SNOMED Code(s): 524478643 (2) Bilateral lower leg cellulitis Status: Acute Code(s): L03.116 - CELLULITIS OF LEFT LOWER LIMB; L03.115 - CELLULITIS OF RIGHT LOWER LIMB SNOMED Code(s): 421703579 Plan: 1patient presented hospital with multiple symptoms including chest pain also noted to have increasing swelling to bilateral lower extremity with some erythema concerning for cellulitis likely from gram-positive skin osei in this patient who did have evidence of fluid overload 2-patient with multiple antibiotic ALLERGIES that would limit the number of antibiotic safe to use 3-patient has been advised to continue with compression stockings the swelling down patient seem to have been discharged by admitting team on oral clindamycin and close outpatient follow-up Dictation was produced using [employer] dictation software. please excuse any grammatical, word or spelling errors. Time with Patient: Less than 30
== END 2023-05-17 13:30 | disposition home or self-care (01) ==
LOC: EC 20:55 → 4SSUR 23:32
PROVIDERS: ADMIT Family Medicine; ATTEND Family Medicine
DX: L03.115 Cellulitis of right lower limb (principal); L03.116 Cellulitis of left lower limb; R07.9 Chest pain, unspecified; R53.1 Weakness; M54.9 Dorsalgia, unspecified; I48.20 Chronic atrial fibrillation, unspecified; I25.10 Atherosclerotic heart disease of native coronary artery without angina pectoris; E11.9 Type 2 diabetes mellitus without complications; E78.5 Hyperlipidemia, unspecified; I11.0 Hypertensive heart disease with heart failure; I50.9 Heart failure, unspecified; E03.9 Hypothyroidism, unspecified; E66.01 Morbid (severe) obesity due to excess calories; Z68.38 Body mass index [BMI] 38.0-38.9, adult; Z85.820 Personal history of malignant melanoma of skin; Z87.891 Personal history of nicotine dependence; Z79.52 Long term (current) use of systemic steroids; Z79.01 Long term (current) use of anticoagulants; Z79.4 Long term (current) use of insulin; Z79.899 Other long term (current) drug therapy; Z79.890 Hormone replacement therapy; Z79.84 Long term (current) use of oral hypoglycemic drugs; Z88.1 Allergy status to other antibiotic agents; Z88.2 Allergy status to sulfonamides
CPT/HCPCS: 96376 ×2; 96366 ×2; 96375 ×2; 96365; 96367; 99285; 36415; 94760; 93005; 97162; 97166; 83880; 80053 ×3; 83690; 83735 ×2; 84100; 84484; 85025 ×2; 85027; 85610; 85730; 71045; G0378 ×3; J2270 ×3; J0696; J7512 ×2; C9113; J0736 ×3

== ENCOUNTER 2023-05-23 01:37 | Emergency (ER) | payer BC, MEDICARE ==
[2023-05-23 01:57] VITALS: TEMP 98.5
--- NOTE | 2023-05-23 03:09 | ED ---
Recheck HPI - General Chief Complaint: Overdose Stated Complaint: Overdose Time Seen by Provider: 05/23/23 02:50 Source: patient, RN notes reviewed, old records reviewed Mode of arrival: EMS Limitations: no limitations - History of Present Illness Initial Comments: This is a 82-year-old female to the ER for evaluation patient presents with some anxiety today. Patient took an overdose or second round of her nighttime medications which resulted in her taking 2 Percocets which is a new medication for her. Patient is unsure how she would respond presents to the ER for evaluation regards to concern for overdose. MD Complaint: medication refill request -: days(s) Returns Today for: other (No complaints) Symptoms Since Prior Visit: no new symptoms Associated Symptoms: none Treatments Prior to Arrival: other (0) - Related Data Home Medications Medication Instructions Recorded Confirmed Latanoprost [Xalatan 0.005%] 1 drop BOTH EYES HS 08/11/17 05/25/23 predniSONE 10 mg PO DAILY 07/23/21 05/25/23 Magnesium Oxide 400 mg PO DAILY 08/30/21 05/25/23 Calcium Citrate/Vitamin D3 1 tab PO BID@0900,1700 11/16/21 05/25/23 [Citracal + D Maximum Caplet] Digoxin [Lanoxin] 125 mcg PO Q48H 11/16/21 05/25/23 Nitroglycerin Sl Tabs [Nitrostat] 0.4 mg SL Q5M PRN 11/16/21 05/25/23 Adalimumab [Humira(Cf) Pen] 40 mg SQ Q14D 01/09/22 05/25/23 Apixaban [Eliquis] 5 mg PO BID@0900,1700 05/02/22 05/25/23 INSULIN LISPRO (HumaLOG) [humaLOG] 6 units SQ AC-TID 05/02/22 05/25/23 INSULIN LISPRO (HumaLOG) [humaLOG] See Protocol SQ AC-TID PRN 05/02/22 05/25/23 Multivit-Min/FA/Lycopen/Lutein 1 tab PO DAILY 05/02/22 05/25/23 [Centrum Silver Tablet] Insulin Glargine [Lantus Vial] 30 unit SQ DAILY 05/17/22 05/25/23 SILVER sulfADIAZINE Cream 1 applic TOPICAL BID PRN 06/28/22 05/25/23 [Silvadene 1% Cream] Tamsulosin [Flomax] 0.4 mg PO DAILY@1200 06/28/22 05/25/23 Bumetanide [BUMEX] 1 mg PO BID@0900,1700 09/02/22 05/25/23 Levothyroxine Sodium [Synthroid] 150 mcg PO HS@0000 09/02/22 05/25/23 traZODone HCL [Desyrel] 50 mg PO HS 12/15/22 05/25/23 Acetaminophen Tab [Tylenol] 325 mg PO QID PRN 05/15/23 05/25/23 Clotrimazole Cream [Lotrimin Cream] 1 applic TOPICAL BID PRN 05/15/23 05/25/23 Gabapentin [Neurontin] 400 mg PO Q6H 05/15/23 05/25/23 Insulin Glargine [Lantus Vial] 15 unit SQ HS 05/15/23 05/25/23 Tolterodine ER [Detrol LA] 4 mg PO DAILY 05/15/23 05/25/23 methocarbamoL [Robaxin-750] 750 mg PO Q6H PRN 05/15/23 05/25/23 oxyCODONE-APAP 7.5-325MG [Percocet 1 tab PO QID 05/15/23 05/25/23 7.5-325 mg] metFORMIN HCL [Glucophage] 500 mg PO HS 05/25/23 05/25/23 Previous Rx's Medication Instructions Recorded Loratadine [Claritin] 10 mg PO DAILY #30 tab 05/20/22 Nystatin 100,000 Unit/ml Susp 500,000 unit PO QID 7 Days #150 ml 05/30/23 [Mycostatin Oral Susp] Potassium Chloride ER [K-Dur 20] 20 meq PO BID #60 tab 05/30/23 Cephalexin [Keflex] 500 mg PO Q6HR 10 Days #40 cap 05/31/23 Allergies Allergy/AdvReac Type Severity Reaction Status Date / Time adhesive Allergy Rash/Hives Verified 05/25/23 15:38 cephalexin [From Keflex] Allergy Rash/Hives Verified 05/25/23 15:38 grass pollen Allergy Unknown Verified 05/25/23 15:38 mold Allergy Unknown Verified 05/25/23 15:38 Sulfa (Sulfonamide Allergy Rash/Hives Verified 05/25/23 15:38 Antibiotics) newspaper ink Allergy Mild Unknown Uncoded 05/25/23 15:38 Review of Systems ROS Statement: Those systems with pertinent positive or pertinent negative responses have been documented in the HPI. ROS Other: All systems not noted in ROS Statement are negative. Past Medical History Past Medical History: Atrial Fibrillation, Coronary Artery Disease (CAD), Cancer, Diabetes Mellitus, Hyperlipidemia, Hypertension, Musculoskeletal Disorder, Neurologic Disorder, Osteoarthritis (OA), Pneumonia, Renal Disease, Rheumatoid Arthritis (RA), Skin Disorder, Thyroid Disorder Additional Past Medical History / Comment(s): Morbid obesity, chronic atrial fibrillation, diabetes mellitus type 2, hypertension, hyperlipidemia, spinal stenosis, osteoarthritis, hypothyroidism, hypertension, history of skin melanoma, history of bursitis with MRSA post I&D, rheumatoid arthritis, Sjogren's disease, 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 without any indication of ILD related to RA, Fall on July 22 transfer to [facility] for MRI, then Fall on 11/16/21 History of Any Multi-Drug Resistant Organisms: MRSA Date of last positivie culture/infection: 09/02/22 MDRO Source:: Right Leg Past Surgical History: Back Surgery, Breast Surgery, Cholecystectomy, Heart Catheterization, Joint Replacement, Orthopedic Surgery Additional Past Surgical History / Comment(s): Bilateral cataracts with lens implants, arthroscopies to lt wrist, gualberto knees, gualberto ankles, gualberto hips, lt hip replacment and redone, L/R shoulder sxs, rt breast bx-benign, egd/colonoscopy, skin cancer removal L arm, Lumbar fixnation possible broken Past Anesthesia/Blood Transfusion Reactions: No Reported Reaction Additional Past Anesthesia/Blood Transfusion Reaction / Comment(s): Pt has been told not to have anesthesia metabolized by the kidneys and has neurologic Sjogren's with post anesthesia paralysis. Past Psychological History: No Psychological Hx Reported Smoking Status: Former smoker Past Alcohol Use History: None Reported Past Drug Use History: None Reported - Past Family History Mother Family Medical History: CVA/TIA Additional Family Medical History / Comment(s): RUPTURED BOWEL Father Family Medical History: Cancer, Pneumonia Additional Family Medical History / Comment(s): ASPIRATIVE PNA Sister(s) Additional Family Medical History / Comment(s): at age 34 with lupus General Exam Limitations: no limitations General appearance: alert, in no apparent distress Head exam: Present: atraumatic, normocephalic, normal inspection Eye exam: Present: normal appearance, PERRL, EOMI. Absent: scleral icterus, conjunctival injection, periorbital swelling ENT exam: Present: normal exam, mucous membranes moist Neck exam: Present: normal inspection. Absent: tenderness, meningismus, lymphadenopathy Respiratory exam: Present: normal lung sounds bilaterally. Absent: respiratory distress, wheezes, rales, rhonchi, stridor Cardiovascular Exam: Present: regular rate, normal rhythm, normal heart sounds. Absent: systolic murmur, diastolic murmur, rubs, gallop, clicks GI/Abdominal exam: Present: soft, normal bowel sounds. Absent: distended, tenderness, guarding, rebound, rigid Extremities exam: Present: normal inspection, full ROM, normal capillary refill. Absent: tenderness, pedal edema, joint swelling, calf tenderness Back exam: Present: normal inspection Neurological exam: Present: alert, oriented X3, CN II-XII intact Psychiatric exam: Present: normal affect, normal mood Skin exam: Present: warm, dry, intact, normal color. Absent: rash Course Vital Signs 05/23/23 05/23/23 05/23/23 01:40 03:00 04:08 Temperature 98.5 F Pulse Rate 68 61 69 Respiratory 18 19 18 Rate Blood Pressure 139/77 117/64 142/88 O2 Sat by Pulse 97 98 98 Oximetry 05/23/23 07:29 Temperature Pulse Rate 86 Respiratory 16 Rate Blood Pressure 148/88 O2 Sat by Pulse 96 Oximetry - Reevaluation(s) Reevaluation #1: 05/23/23 03:08 Records reviewed Reevaluation #2: 05/23/23 03:26 Patient symptoms unchanged with no complaints Reevaluation #3: 05/23/23 03:26 Patient informed of results and questions answered Reevaluation #4: Was pt. sent in by a medical professional or institution (, PA, VEHICLE TRIMMER, urgent care, hospital, or penitentiary...) When possible be specific @ -no Did you speak to anyone other than the patient for history (EMS, parent, family, police, friend...)? What history was obtained from this source @ -no Did you review nursing and triage notes (agree or disagree)? Why? @ -agree Are old charts reviewed (outside hosp., previous admission, EMS record, old EKG, old radiological studies, urgent care reports/EKG's, penitentiary records)? Report findings @ -yes Differential Diagnosis (chest pain, altered mental status, abdominal pain women, abdominal pain men, vaginal bleeding, weakness, fever, dyspnea, syncope, headache, dizziness, GI bleed, back pain, seizure, CVA, palpatations, mental health, musculoskeletal)? @ -prior EKG interpreted by me (3pts min.). @ -no X-rays interpreted by me (1pt min.). @ -no CT interpreted by me (1pt min.). @ -no U/S interpreted by me (1pt. min.). @ -no What testing was considered but not performed or refused? (CT, X-rays, U/S, labs)? Why? @ -none What meds were considered but not given or refused? Why? @ -none Did you discuss the management of the patient with other professionals (professionals i.e. , PA, VEHICLE TRIMMER, lab, RT, psych nurse, manager social media, miniature train driver, teacher, artillery officer, case management specialist)? Give summary @ -no Was smoking cessation discussed for >3mins.? @ -no Was critical care preformed (if so, how long)? @ -no Were there social determinants of health that impacted care today? How? ( Homelessness, low income, unemployed, alcoholism, drug addiction, transportation, low edu. Level, literacy, decrease access to med. care, half-way, rehab)? @ -none Was there de-escalation of care discussed even if they declined (Discuss DNR or withdrawal of care, Hospice)? DNR status @ -no What co-morbidities impacted this encounter? (DM, HTN, Smoking, COPD, CAD, Cancer, CVA, ARF, Chemo, Hep., AIDS, mental health diagnosis, sleep apnea, morbid obesity)? @ -none Was patient admitted / discharged? Hospital course, mention meds given and route, prescriptions, significant lab abnormalities, going to OR and other pertinent info. @ - 82-year-old female with accidental drug ingestion, patient was watched here in the emergency department with no acute symptoms or mental status. Patient awake and alert with normal vital signs and can be discharged home Admitted Undiagnosed new problem with uncertain prognosis? @ -no Drug Therapy requiring intensive monitoring for toxicity (Heparin, Nitro, Ins ulin, Cardizem)? @ -no Were any procedures done? @ -no Diagnosis/symptom? @ -Altered mental status with extremes of age Acute, or Chronic, or Acute on Chronic? @ -Acute Uncomplicated (without systemic symptoms) or Complicated (systemic symptoms)? @ -Complicated Side effects of treatment? @ -no Exacerbation, Progression, or Severe Exacerbation? @ -exacerbation Poses a threat to life or bodily function? How? (Chest pain, [place], [place], pneumonia, PE, COPD, DKA, ARF, appy, cholecystitis, CVA, Diverticulitis, Homicidal, Suicidal, threat to staff... and all critical care pts) @ -yes with possibility of overdose Medical Decision Making - Medical Decision Making 82-year-old female with accidental drug ingestion, patient was watched here in t emergency department with no acute symptoms or mental status. Patient awake and alert with normal vital signs and can be discharged home Disposition Clinical Impression: Accidental drug overdose Disposition: HOME SELF-CARE Condition: Good Instructions (If sedation given, give patient instructions): Adult Overdose (ED) Is patient prescribed a controlled substance at d/c from ED?: No Referrals: Nicholas Hart MD [Primary Care Provider] - 1-2 days Time of Disposition: 04:00
[2023-05-23 07:31] VITALS: BP 148/88; PULSE 86; RESP 16
== END 2023-05-23 07:30 | disposition home or self-care (01) ==
LOC: EC 01:37
DX: T40.2X1A Poisoning by other opioids, accidental (unintentional), initial encounter (principal); Z87.891 Personal history of nicotine dependence; Z88.2 Allergy status to sulfonamides; Z88.1 Allergy status to other antibiotic agents; Z88.8 Allergy status to other drugs, medicaments and biological substances
CPT/HCPCS: 99284

== ENCOUNTER 2023-05-25 13:28 | Inpatient (IN) | payer BC, MEDICARE ==
--- NOTE | 2023-05-25 13:47 | ED ---
SOB HPI - General Chief Complaint: Shortness of Breath Stated Complaint: SOB Time Seen by Provider: 05/25/23 13:30 Source: patient, RN notes reviewed, old records reviewed Mode of arrival: EMS Limitations: no limitations - History of Present Illness Initial Comments: This is a 82-year-old female to the ER for evaluation today. Patient in severe elevation of significant weight gain. Patient believes she has gained somewhere of 30 to 40 to 50 pounds. She was told this by her visiting nurse who is was seen by her visiting physicians patient does complain of weakness and shortness of breath MD Complaint: shortness of breath -: days(s) Radiation: other Severity: severe Quality: aching Consistency: constant Improves With: nothing Worsens With: nothing Known History Of: congestive heart failure Context: recent URI, recent illness Associated Symptoms: denies other symptoms - Related Data Home Medications Medication Instructions Recorded Confirmed Latanoprost [Xalatan 0.005%] 1 drop BOTH EYES HS 08/11/17 05/25/23 predniSONE 10 mg PO DAILY 07/23/21 05/25/23 Magnesium Oxide 400 mg PO DAILY 08/30/21 05/25/23 Calcium Citrate/Vitamin D3 1 tab PO BID@0900,1700 11/16/21 05/25/23 [Citracal + D Maximum Caplet] Digoxin [Lanoxin] 125 mcg PO Q48H 11/16/21 05/25/23 Nitroglycerin Sl Tabs [Nitrostat] 0.4 mg SL Q5M PRN 11/16/21 05/25/23 Adalimumab [Humira(Cf) Pen] 40 mg SQ Q14D 01/09/22 05/25/23 Apixaban [Eliquis] 5 mg PO BID@0900,1700 05/02/22 05/25/23 INSULIN LISPRO (HumaLOG) [humaLOG] 6 units SQ AC-TID 05/02/22 05/25/23 INSULIN LISPRO (HumaLOG) [humaLOG] See Protocol SQ AC-TID PRN 05/02/22 05/25/23 Multivit-Min/FA/Lycopen/Lutein 1 tab PO DAILY 05/02/22 05/25/23 [Centrum Silver Tablet] Insulin Glargine [Lantus Vial] 30 unit SQ DAILY 05/17/22 05/25/23 SILVER sulfADIAZINE Cream 1 applic TOPICAL BID PRN 06/28/22 05/25/23 [Silvadene 1% Cream] Tamsulosin [Flomax] 0.4 mg PO DAILY@1200 06/28/22 05/25/23 Bumetanide [BUMEX] 1 mg PO BID@0900,1700 09/02/22 05/25/23 Levothyroxine Sodium [Synthroid] 150 mcg PO HS@0000 09/02/22 05/25/23 traZODone HCL [Desyrel] 50 mg PO HS 12/15/22 05/25/23 Acetaminophen Tab [Tylenol] 325 mg PO QID PRN 05/15/23 05/25/23 Clotrimazole Cream [Lotrimin Cream] 1 applic TOPICAL BID PRN 05/15/23 05/25/23 Gabapentin [Neurontin] 400 mg PO Q6H 05/15/23 05/25/23 Insulin Glargine [Lantus Vial] 15 unit SQ HS 05/15/23 05/25/23 Tolterodine ER [Detrol LA] 4 mg PO DAILY 05/15/23 05/25/23 methocarbamoL [Robaxin-750] 750 mg PO Q6H PRN 05/15/23 05/25/23 oxyCODONE-APAP 7.5-325MG [Percocet 1 tab PO QID 05/15/23 05/25/23 7.5-325 mg] metFORMIN HCL [Glucophage] 500 mg PO HS 05/25/23 05/25/23 Previous Rx's Medication Instructions Recorded Loratadine [Claritin] 10 mg PO DAILY #30 tab 05/20/22 Nystatin 100,000 Unit/ml Susp 500,000 unit PO QID 7 Days #150 ml 05/30/23 [Mycostatin Oral Susp] Potassium Chloride ER [K-Dur 20] 20 meq PO BID #60 tab 05/30/23 Cephalexin [Keflex] 500 mg PO Q6HR 10 Days #40 cap 05/31/23 Allergies Allergy/AdvReac Type Severity Reaction Status Date / Time adhesive Allergy Rash/Hives Verified 05/25/23 15:38 cephalexin [From Keflex] Allergy Rash/Hives Verified 05/25/23 15:38 grass pollen Allergy Unknown Verified 03/28/24 15:38 mold Allergy Unknown Verified 05/25/23 15:38 Sulfa (Sulfonamide Allergy Rash/Hives Verified 05/25/23 15:38 Antibiotics) newspaper ink Allergy Mild Unknown Uncoded 05/25/23 15:38 Review of Systems ROS Statement: Those systems with pertinent positive or pertinent negative responses have been documented in the HPI. ROS Other: All systems not noted in ROS Statement are negative. Past Medical History Past Medical History: Atrial Fibrillation, Coronary Artery Disease (CAD), Cancer, Diabetes Mellitus, Hyperlipidemia, Hypertension, Musculoskeletal Disorder, Neurologic Disorder, Osteoarthritis (OA), Pneumonia, Renal Disease, Rheumatoid Arthritis (RA), Skin Disorder, Thyroid Disorder Additional Past Medical History / Comment(s): Morbid obesity, chronic atrial fibrillation, diabetes mellitus type 2, hypertension, hyperlipidemia, spinal stenosis, osteoarthritis, hypothyroidism, hypertension, history of skin melanoma, history of bursitis with MRSA post I&D, rheumatoid arthritis, Sjogren's disease, 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 without any indication of ILD related to RA, Fall on July 22 transfer to [facility] for MRI, then Fall on 11/16/21 History of Any Multi-Drug Resistant Organisms: MRSA Date of last positivie culture/infection: 09/02/22 MDRO Source:: Right Leg Past Surgical History: Back Surgery, Breast Surgery, Cholecystectomy, Heart Catheterization, Joint Replacement, Orthopedic Surgery Additional Past Surgical History / Comment(s): Bilateral cataracts with lens implants, arthroscopies to lt wrist, gualberto knees, gualberto ankles, gualberto hips, lt hip replacment and redone, L/R shoulder sxs, rt breast bx-benign, egd/colonoscopy, skin cancer removal L arm, Lumbar fixnation possible broken Past Anesthesia/Blood Transfusion Reactions: No Reported Reaction Additional Past Anesthesia/Blood Transfusion Reaction / Comment(s): Pt has been told not to have anesthesia metabolized by the kidneys and has neurologic Sjogren's with post anesthesia paralysis. Past Psychological History: No Psychological Hx Reported Smoking Status: Former smoker Past Alcohol Use History: None Reported Past Drug Use History: None Reported - Past Family History Mother Family Medical History: CVA/TIA Additional Family Medical History / Comment(s): RUPTURED BOWEL Father Family Medical History: Cancer, Pneumonia Additional Family Medical History / Comment(s): ASPIRATIVE PNA Sister(s) Additional Family Medical History / Comment(s): at age 34 with lupus General Exam Limitations: no limitations General appearance: alert, in no apparent distress Head exam: Present: atraumatic, normocephalic, normal inspection Eye exam: Present: normal appearance, PERRL, EOMI. Absent: scleral icterus, conjunctival injection, periorbital swelling ENT exam: Present: normal exam, mucous membranes moist Neck exam: Present: normal inspection. Absent: tenderness, meningismus, lymphadenopathy Respiratory exam: Present: normal lung sounds bilaterally. Absent: respiratory distress, wheezes, rales, rhonchi, stridor Cardiovascular Exam: Present: regular rate, normal rhythm, normal heart sounds. Absent: systolic murmur, diastolic murmur, rubs, gallop, clicks GI/Abdominal exam: Present: soft, normal bowel sounds. Absent: distended, tenderness, guarding, rebound, rigid Extremities exam: Present: normal inspection, full ROM, normal capillary refill. Absent: tenderness, pedal edema, joint swelling, calf tenderness Back exam: Present: normal inspection Neurological exam: Present: alert, oriented X3, CN II-XII intact Psychiatric exam: Present: normal affect, normal mood Skin exam: Present: warm, dry, intact, normal color. Absent: rash Course Vital Signs 05/25/23 05/25/23 05/25/23 13:29 14:39 14:47 Temperature 97.6 F Pulse Rate 66 83 69 Respiratory 18 20 Rate Blood Pressure 123/65 136/76 O2 Sat by Pulse 95 97 Oximetry 05/25/23 05/25/23 05/25/23 15:06 17:15 21:00 Temperature Pulse Rate 67 79 81 Respiratory 18 15 Rate Blood Pressure 127/74 110/55 O2 Sat by Pulse 93 L 95 Oximetry 05/25/23 22:42 Temperature Pulse Rate 78 Respiratory 20 Rate Blood Pressure 118/60 O2 Sat by Pulse 94 L Oximetry - Reevaluation(s) Reevaluation #1: 05/25/23 17:22 Medical records reviewed Reevaluation #2: 05/25/23 17:22 Patient symptoms unchanged Reevaluation #3: 05/25/23 17:22 Patient informed of results and questions answered Reevaluation #4: Was pt. sent in by a medical professional or institution (, PA, PIPE COVERER AND INSULATOR, urgent care, hospital, or shelter...) When possible be specific @ -no Did you speak to anyone other than the patient for history (EMS, parent, family, police, friend...)? What history was obtained from this source @ -no Did you review nursing and triage notes (agree or disagree)? Why? @ -agree Are old charts reviewed (outside hosp., previous admission, EMS record, old EKG, old radiological studies, urgent care reports/EKG's, shelter records)? Report findings @ -yes Differential Diagnosis (chest pain, altered mental status, abdominal pain women, abdominal pain men, vaginal bleeding, weakness, fever, dyspnea, syncope, headache, dizziness, GI bleed, back pain, seizure, CVA, palpatations, mental health, musculoskeletal)? @ -prior EKG interpreted by me (3pts min.). @ -yes X-rays interpreted by me (1pt min.). @ -yes negative for acute disease CT interpreted by me (1pt min.). @ -no U/S interpreted by me (1pt. min.). @ -no What testing was considered but not performed or refused? (CT, X-rays, U/S, labs)? Why? @ -none What meds were considered but not given or refused? Why? @ -none Did you discuss the management of the patient with other professionals (professionals i.e. , PA, PIPE COVERER AND INSULATOR, lab, RT, psych nurse, child welfare social worker, heating and cooling technician, teacher, transportation officer, case management director)? Give summary @ -no Was smoking cessation discussed for >3mins.? @ -no Was critical care preformed (if so, how long)? @ -no Were there social determinants of health that impacted care today? How? (Homeles sness, low income, unemployed, alcoholism, drug addiction, transportation, low edu. Level, literacy, decrease access to med. care, retirement, rehab)? @ -none Was there de-escalation of care discussed even if they declined (Discuss DNR or withdrawal of care, Hospice)? DNR status @ -no What co-morbidities impacted this encounter? (DM, HTN, Smoking, COPD, CAD, Cancer, CVA, ARF, Chemo, Hep., AIDS, mental health diagnosis, sleep apnea, morbid obesity)? @ -none Was patient admitted / discharged? Hospital course, mention meds given and route, prescriptions, significant lab abnormalities, going to OR and other pertinent info. @ - 82 Female to ER with significant weight gain and shortness of breath pa tient will be admitted for diuresis Admitted Undiagnosed new problem with uncertain prognosis? @ -no Drug Therapy requiring intensive monitoring for toxicity (Heparin, Nitro, Insulin, Cardizem)? @ -no Were any procedures done? @ -no Diagnosis/symptom? @ -CHF edema weight gain Acute, or Chronic, or Acute on Chronic? @ -Acute Uncomplicated (without systemic symptoms) or Complicated (systemic symptoms)? @ -Complicated Side effects of treatment? @ -no Exacerbation, Progression, or Severe Exacerbation? @ -exacerbation Poses a threat to life or bodily function? How? (Chest pain, USA, MT, pneumonia, PE, COPD, DKA, ARF, appy, cholecystitis, CVA, Diverticulitis, Homicidal, Suicidal, threat to staff... and all critical care pts) @ -yes with significant extremes of age Reevaluation #5: Differential Weakness: Hypoglycemia, shock, sepsis, hyponatremia, anemia, infection, MT, ETOH, adverse medicine reaction, overdose, stroke, this is not meant to be an all-inclusive list. - Consultations Consultation #1: With Dr. Hart who agrees to admit this patient Medical Decision Making - Medical Decision Making 82 Female to ER with significant weight gain and shortness of breath patient will be admitted for diuresis - Lab Data Result diagrams: 05/30/23 06:23 05/31/23 05:50 Lab Results 05/25/23 05/25/23 05/25/23 Range/Units 13:51 13:51 13:51 WBC 6.1 (3.8-10.6) k/uL RBC 4.00 (3.80-5.40) m/uL Hgb 11.5 (11.4-16.0) gm/dL Hct 37.6 (34.0-46.0) % MCV 94.1 (80.0-100.0) fL MCH 28.7 (25.0-35.0) pg MCHC 30.5 L (31.0-37.0) g/dL RDW 16.6 H (11.5-15.5) % Plt Count 181 (150-450) k/uL MPV 7.6 Immature Gran % (Auto) % Absolute Nucleated RBC % Neutrophils % 63 % Lymphocytes % 25 % Monocytes % 7 % Eosinophils % 3 % Basophils % 1 % Immature Gran # (0.00-0.04) X 10*3/uL Neutrophils # 3.8 (1.3-7.7) k/uL Lymphocytes # 1.6 (1.0-4.8) k/uL Monocytes # 0.4 (0-1.0) k/uL Eosinophils # 0.2 (0-0.7) k/uL Basophils # 0.1 (0-0.2) k/uL NRBC/100 WBC Diff (0.00-0.01) X 10*3/uL Hypochromasia Marked Anisocytosis Slight PT 12.8 H (10.0-12.5) sec INR 1.2 H (<1.2) APTT 24.5 (22.0-30.0) sec Sodium 140 (137-145) mmol/L Potassium 4.3 (3.5-5.1) mmol/L Chloride 103 (98-107) mmol/L Carbon Dioxide 31 H (22-30) mmol/L Anion Gap 6 mmol/L BUN 24 H (7-17) mg/dL Creatinine 0.89 (0.52-1.04) mg/dL Est GFR (CKD-EPI)AfAm 70 (>60 ml/min/1.73 sqM) Est GFR (CKD-EPI)NonAf 61 (>60 ml/min/1.73 sqM) BUN/Creatinine Ratio (12.00-20.00) Ratio Glucose 187 H (74-99) mg/dL POC Glucose (mg/dL) (70-110) mg/dL POC Glu Estimation Manager ID Calcium 8.7 (8.4-10.2) mg/dL Magnesium 2.0 (1.6-2.3) mg/dL Total Bilirubin 0.6 (0.2-1.3) mg/dL AST 28 (14-36) U/L ALT 16 (4-34) U/L Alkaline Phosphatase 85 (38-126) U/L Troponin I (0.000-0.034) ng/mL NT-Pro-B Natriuret Pep 1220 pg/mL Total Protein 7.2 (6.3-8.2) g/dL Albumin 3.7 (3.5-5.0) g/dL Globulin (1.6-3.3) g/dL Albumin/Globulin Ratio (1.60-3.17) Ratio 05/25/23 05/26/23 05/26/23 Range/Units 13:51 01:07 05:44 WBC 7.35 (3.8-10.6) k/uL RBC 4.08 L (3.80-5.40) m/uL Hgb 11.4 L (11.4-16.0) gm/dL Hct 38.0 (34.0-46.0) % MCV 93.1 (80.0-100.0) fL MCH 27.9 (25.0-35.0) pg MCHC 30.0 L (31.0-37.0) g/dL RDW 17.7 H (11.5-15.5) % Plt Count 158 (150-450) k/uL MPV 11.0 Immature Gran % (Auto) 0.40 % Absolute Nucleated RBC 0 % Neutrophils % 51.4 % Lymphocytes % 34.4 % Monocytes % 9.5 % Eosinophils % 3.3 % Basophils % 1.0 % Immature Gran # 0.03 (0.00-0.04) X 10*3/uL Neutrophils # 3.78 (1.3-7.7) k/uL Lymphocytes # 2.53 (1.0-4.8) k/uL Monocytes # 0.70 (0-1.0) k/uL Eosinophils # 0.24 (0-0.7) k/uL Basophils # 0.07 (0-0.2) k/uL NRBC/100 WBC Diff 0 (0.00-0.01) X 10*3/uL Hypochromasia Anisocytosis PT (10.0-12.5) sec INR (<1.2) APTT (22.0-30.0) sec Sodium (137-145) mmol/L Potassium (3.5-5.1) mmol/L Chloride (98-107) mmol/L Carbon Dioxide (22-30) mmol/L Anion Gap mmol/L BUN (7-17) mg/dL Creatinine (0.52-1.04) mg/dL Est GFR (CKD-EPI)AfAm (>60 ml/min/1.73 sqM) Est GFR (CKD-EPI)NonAf (>60 ml/min/1.73 sqM) BUN/Creatinine Ratio (12.00-20.00) Ratio Glucose (74-99) mg/dL POC Glucose (mg/dL) 178 H (70-110) mg/dL POC Glu Estimation Manager ID Marry Denny Calcium (8.4-10.2) mg/dL Magnesium (1.6-2.3) mg/dL Total Bilirubin (0.2-1.3) mg/dL AST (14-36) U/L ALT (4-34) U/L Alkaline Phosphatase (38-126) U/L Troponin I 0.033 (0.000-0.034) ng/mL NT-Pro-B Natriuret Pep pg/mL Total Protein (6.3-8.2) g/dL Albumin (3.5-5.0) g/dL Globulin (1.6-3.3) g/dL Albumin/Globulin Ratio (1.60-3.17) Ratio 05/26/23 05/26/23 05/26/23 Range/Units 05:44 06:12 11:00 WBC (3.8-10.6) k/uL RBC (3.80-5.40) m/uL Hgb (11.4-16.0) gm/dL Hct (34.0-46.0) % MCV (80.0-100.0) fL MCH (25.0-35.0) pg MCHC (31.0-37.0) g/dL RDW (11.5-15.5) % Plt Count (150-450) k/uL MPV Immature Gran % (Auto) % Absolute Nucleated RBC % Neutrophils % % Lymphocytes % % Monocytes % % Eosinophils % % Basophils % % Immature Gran # (0.00-0.04) X 10*3/uL Neutrophils # (1.3-7.7) k/uL Lymphocytes # (1.0-4.8) k/uL Monocytes # (0-1.0) k/uL Eosinophils # (0-0.7) k/uL Basophils # (0-0.2) k/uL NRBC/100 WBC Diff (0.00-0.01) X 10*3/uL Hypochromasia Anisocytosis PT (10.0-12.5) sec INR (<1.2) APTT (22.0-30.0) sec Sodium 143 (137-145) mmol/L Potassium 4.1 (3.5-5.1) mmol/L Chloride 102 (98-107) mmol/L Carbon Dioxide 28.2 (22-30) mmol/L Anion Gap 12.80 H mmol/L BUN 20.3 (7-17) mg/dL Creatinine 1.0 (0.52-1.04) mg/dL Est GFR (CKD-EPI)AfAm (>60 ml/min/1.73 sqM) Est GFR (CKD-EPI)NonAf (>60 ml/min/1.73 sqM) BUN/Creatinine Ratio 20.30 H (12.00-20.00) Ratio Glucose 114 H (74-99) mg/dL POC Glucose (mg/dL) 106 123 H (70-110) mg/dL POC Glu Estimation Manager ID Lauren Rondon Michelle Calcium 8.8 (8.4-10.2) mg/dL Magnesium (1.6-2.3) mg/dL Total Bilirubin 0.3 (0.2-1.3) mg/dL AST 33 (14-36) U/L ALT 14 (4-34) U/L Alkaline Phosphatase 84 (38-126) U/L Troponin I (0.000-0.034) ng/mL NT-Pro-B Natriuret Pep pg/mL Total Protein 6.7 (6.3-8.2) g/dL Albumin 3.5 L (3.5-5.0) g/dL Globulin 3.2 (1.6-3.3) g/dL Albumin/Globulin Ratio 1.09 L (1.60-3.17) Ratio - EKG Data -: EKG Interpreted by Me (EKG is A-flutter 80 QRS 119 QTc 444) - Radiology Data Radiology results: report reviewed (Chest x-ray is negative for acute disease), image reviewed Disposition Clinical Impression: Congestive heart failure, Generalized weakness, Obesity (BMI 30-39.9) Disposition: ADMITTED IP TO THIS [facility] Condition: Fair Is patient prescribed a controlled substance at d/c from ED?: No Time of Disposition: 17:20
[2023-05-25 14:04] LABS: Anisocytosis Slight; Basophils # (A) 0.1 k/uL (0-0.2); Basophils % (A) 1 %; Eosinophils # (A) 0.2 k/uL (0-0.7); Eosinophils % (A) 3 %; HCT 37.6 % (34.0-46.0); HGB 11.5 gm/dL (11.4-16.0); Hypochromasia Marked; Lymphocytes # (A) 1.6 k/uL (1.0-4.8); Lymphocytes % (A) 25 %; MCH 28.7 pg (25.0-35.0); MCHC 30.5 g/dL (31.0-37.0); MCV 94.1 fL (80.0-100.0); Mean Platelet Volume 7.6; Monocytes # (A) 0.4 k/uL (0-1.0); Monocytes % (A) 7 %; Neutrophils # (A) 3.8 k/uL (1.3-7.7); Neutrophils % (A) 63 %; Platelet Count 181 k/uL (150-450); RDW 16.6 % (11.5-15.5); WBC 6.1 k/uL (3.8-10.6)
[2023-05-25 14:15] LABS: INR 1.2 (<1.2); Partial Thromboplastin Time 24.5 sec (22.0-30.0); Prothrombin Time 12.8 sec (10.0-12.5)
[2023-05-25 14:20] LABS: ALT 16 U/L (4-34); AST 28 U/L (14-36); African American GFR (CKD) 70 (>60 ml/min/1.73 sqM); Albumin 3.7 g/dL (3.5-5.0); Alkaline Phosphatase 85 U/L (38-126); Anion Gap 6 mmol/L; Blood Urea Nitrogen 24 mg/dL (7-17); Calcium 8.7 mg/dL (8.4-10.2); Carbon Dioxide 31 mmol/L (22-30); Chloride 103 mmol/L (98-107); Glucose 187 mg/dL (74-99); Non-African American GFR(CKD) 61 (>60 ml/min/1.73 sqM); Potassium 4.3 mmol/L (3.5-5.1); Sodium 140 mmol/L (137-145); Total Bilirubin 0.6 mg/dL (0.2-1.3); Total Protein 7.2 g/dL (6.3-8.2)
--- NOTE | 2023-05-25 14:22 | XR ---
EXAMINATION TYPE: XR chest 2V DATE OF EXAM: 05/25/2023 2:10 PM CLINICAL INDICATION:Female, 82 years old with history of difficulty breathing; [facility] COMPARISON: Chest radiograph from 05/15/2023 TECHNIQUE: XR chest 2V Frontal and lateral views of the chest. FINDINGS: Lungs/Pleura: There is no evidence of pleural effusion, focal consolidation, or pneumothorax. Pulmonary vascularity: Unremarkable. Heart/mediastinum: Heart size is upper limits of normal Musculoskeletal: No acute osseous pathology. Other findings: None Lines/Tubes: IMPRESSION: No acute cardiopulmonary disease/process.
[2023-05-25 14:28] LABS: NT-Pro-B-Type Natriuretic Pept 1220 pg/mL
[2023-05-25] MEDS: IPRATROPIUM-ALBUTEROL 3 ML NEB INHALATION STA (14:46)
[2023-05-25] MEDS: HYDROmorphone 1 MG/ML 1 ML SYRINGE IVP STA (15:29)
[2023-05-25] MEDS ORDERED: ONDANSETRON 4 MG/2 ML VIAL IVP PRN (17:20)
[2023-05-25] MEDS ORDERED: NALOXONE 0.4 MG/ML 1 ML VIAL IV PRN (17:20)
[2023-05-25] MEDS: FUROSEMIDE 10 MG/ML 10 ML VIAL IV STA (17:40)
[2023-05-26] MEDS ORDERED: DEXTROSE 50% SYRINGE 50 ML IVP PRN ×2 (00:28)
[2023-05-26] MEDS: INSULIN DETEMIR (LEVEMIR) 100 UNIT/ML SYR SQ SCH ×2 (01:07→09:00)
[2023-05-26 01:08] LABS: Glucose,Whole Blood 178 mg/dL (70-110)
[2023-05-26] MEDS: APIXABAN 5 MG TAB PO SCH (01:08)
[2023-05-26] MEDS: LEVOTHYROXINE 75 MCG TAB PO SCH (01:08)
[2023-05-26] MEDS: BUMETANIDE 1 MG TAB PO SCH (01:08)
[2023-05-26] MEDS: GABAPENTIN 400 MG CAP PO SCH (01:08)
[2023-05-26] MEDS: traZODone HCL 50 MG TAB PO SCH (01:08)
[2023-05-26] MEDS: NON FORMULARY DRUG (Calcium Citrate/Vitamin D3 [Citracal + D Maximum Caplet] 1 EACH Tablet PO SCH (01:43)
[2023-05-26] MEDS: oxyCODONE-APAP 7.5-325MG 1 EACH TAB PO PRN (01:45)
[2023-05-26] MEDS: HYDROmorphone 1 MG/ML 1 ML SYRINGE IVP PRN (03:16)
[2023-05-26 06:14] LABS: Glucose,Whole Blood 106 mg/dL (70-110)
[2023-05-26] MEDS: INSULIN ASPART (NovoLOG) 100 UNIT/ML VIAL SQ SCH ×2 (06:17→09:00)
[2023-05-26] MEDS: FUROSEMIDE 10 MG/ML 4 ML VIAL IV SCH ×2 (09:00→16:43)
--- NOTE | 2023-05-26 09:45 | P.CRDCN ---
History of Present Illness History of present illness: HISTORY OF PRESENT ILLNESS: This is a 82-year-old female with a past medical history significant for atrial fibrillation, nonischemic cardiomyopathy, nonobstructive CAD, congestive heart failure, hypertension, hyperlipidemia, and morbid obesity. Patient follows in the office with Dr. George. We have been asked to see the patient in consultation for congestive heart failure. Patient examined at the bedside. Patient was recently hospitalized secondary to lower extremity cellulitis. She states she has been receiving home care. The patient reports she has been feeling more short of breath. She states that her home care nurse was concerned about her and recommended that she come to the hospital for further evaluation. The patient has significant lower extremity edema with chronic wounds. She also has weeping of the lower extremities. Patient denies any chest pain or pressure. Vital signs are stable. Telemetry reveals atrial fibrillation with controlled ventricular rate. DIAGNOSTICS: - EKG reveals atrial fibrillation with controlled ventricular rate. - Chest xray negative for acute process. - Laboratory data: WBC 6.1. Hemoglobin 11.5. Platelet count 181. Sodium 140. Potassium 4.3. BUN 24. Creatinine 0.89. Troponin negative x 1. proBNP 1220. - Current home cardiac medications include Eliquis 5 mg twice a day, Bumex 1 mg twice a day, digoxin 125 mcg every 48 hours. - Most recent echocardiogram obtained in 11/2022 revealed ejection fraction 50 to 55%, moderate MR, moderate AI, mild TR, moderate PI - Cardiac catheterization history: August 2017 revealing intermediate disease involving the mid circumflex REVIEW OF SYSTEMS: At the time of my exam: CONSTITUTIONAL: Denies fever or chills. HEENT: Denies blurred vision, vision changes, or eye pain. Denies hemoptysis CARDIOVASCULAR: Denies chest pain. Denies orthopnea. Denies PND. Denies palpitations RESPIRATORY: Denies shortness of breath. GASTROINTESTINAL: Denies abdominal pain. Denies nausea or vomiting. HEMATOLOGIC: Denies bleeding disorders. GENITOURINARY: Denies any blood in urine. SKIN: Denies pruitis. Denies rash. PHYSICAL EXAM: VITAL SIGNS: Reviewed. GENERAL: Well-developed in no acute distress. HEENT: Head is normocephalic. Pupils are equal, round. Sclerae anicteric. Mucous membranes of the mouth are moist. Neck supple. No JVD or thyromegaly LUNGS: Respirations even and unlabored. Lungs essentially clear to auscultation bilaterally. HEART: Regular rate and rhythm. S1 and S2 heard. ABDOMEN: Soft. Nondistended. Nontender. EXTREMITIES: Normal range of motion. No clubbing or cyanosis. Peripheral pulses intact. Significant lower extremity edema noted with weeping noted. Adonis ateral lower extremities with evidence of cellulitis and chronic wounds. NEUROLOGIC: Awake and alert. Oriented x 3. ASSESSMENT: Shortness of breath Acute on chronic heart failure with preserved EF, 5055% Bilateral lower extremity cellulitis with chronic wounds Permanent atrial fibrillation Nonischemic cardiomyopathy with improved EF, was 40%, now 50 to 55% in 11/2022 Intermediate coronary artery disease without previous stenting Chronic hypoxic respiratory failure on home O2 at night Hypertension Hyperlipidemia Diabetes Morbid obesity PLAN: No need to repeat echocardiogram as this was performed in 11/2022 Begin IV Lasix 40 mg every 12 hours Daily weights, accurate intake and output, and monitoring of kidney function Continue additional home cardiac medications Further recommendations pending patient course Nurse practitioner note has been reviewed by physician. Signing provider agrees with the documented findings, assessment, and plan of care documented by [employer] as a scribe. Past Medical History Past Medical History: Atrial Fibrillation, Coronary Artery Disease (CAD), Cancer, Diabetes Mellitus, Hyperlipidemia, Hypertension, Musculoskeletal Disorder, Neurologic Disorder, Osteoarthritis (OA), Pneumonia, Renal Disease, Rheumatoid Arthritis (RA), Skin Disorder, Thyroid Disorder Additional Past Medical History / Comment(s): Morbid obesity, chronic atrial fibrillation, diabetes mellitus type 2, hypertension, hyperlipidemia, spinal stenosis, osteoarthritis, hypothyroidism, hypertension, history of skin melanoma, history of bursitis with MRSA post I&D, rheumatoid arthritis, Sjogren's disease, 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 without any indication of ILD related to RA, Fall on July 22 transfer to [facility] for MRI, then Fall on 11/16/21 History of Any Multi-Drug Resistant Organisms: MRSA Date of last positivie culture/infection: 09/02/22 MDRO Source:: Right Leg Past Surgical History: Back Surgery, Breast Surgery, Cholecystectomy, Heart Catheterization, Joint Replacement, Orthopedic Surgery Additional Past Surgical History / Comment(s): Bilateral cataracts with lens implants, arthroscopies to lt wrist, adonis knees, adonis ankles, adonis hips, lt hip replacment and redone, L/R shoulder sxs, rt breast bx-benign, egd/colonoscopy, skin cancer removal L arm, Lumbar fixnation possible broken Past Anesthesia/Blood Transfusion Reactions: No Reported Reaction Additional Past Anesthesia/Blood Transfusion Reaction / Comment(s): Pt has been told not to have anesthesia metabolized by the kidneys and has neurologic Sjogren's with post anesthesia paralysis. Past Psychological History: No Psychological Hx Reported Additional Psychological History / Comment(s): . Smoking Status: Former smoker Past Alcohol Use History: None Reported Additional Past Alcohol Use History / Comment(s): Pt started smoking in 1961 and quit in 1969 Past Drug Use History: None Reported - Past Family History Mother Family Medical History: CVA/TIA Additional Family Medical History / Comment(s): RUPTURED BOWEL Father Family Medical History: Cancer, Pneumonia Additional Family Medical History / Comment(s): ASPIRATIVE PNA Sister(s) Additional Family Medical History / Comment(s): at age 34 with lupus Medications and Allergies Home Medications Medication Instructions Recorded Confirmed Type Latanoprost [Xalatan 0.005%] 1 drop BOTH EYES HS 08/11/17 05/25/23 History predniSONE 10 mg PO DAILY 07/23/21 05/25/23 History Magnesium Oxide 400 mg PO DAILY 08/30/21 05/25/23 History Calcium Citrate/Vitamin D3 1 tab PO BID@0900,1700 11/16/21 05/25/23 History [Citracal + D Maximum Caplet] Digoxin [Lanoxin] 125 mcg PO Q48H 11/16/21 05/25/23 History Nitroglycerin Sl Tabs [Nitrostat] 0.4 mg SL Q5M PRN 11/16/21 05/25/23 History Adalimumab [Humira(Cf) Pen] 40 mg SQ Q14D 01/09/22 05/25/23 History Apixaban [Eliquis] 5 mg PO BID@0900,1700 05/02/22 05/25/23 History INSULIN LISPRO (HumaLOG) [humaLOG] 6 units SQ AC-TID 05/02/22 05/25/23 History INSULIN LISPRO (HumaLOG) [humaLOG] See Protocol SQ AC-TID PRN 05/02/22 05/25/23 History Multivit-Min/FA/Lycopen/Lutein 1 tab PO DAILY 05/02/22 05/25/23 History [Centrum Silver Tablet] Insulin Glargine [Lantus Vial] 30 unit SQ DAILY 05/17/22 05/25/23 History Loratadine [Claritin] 10 mg PO DAILY #30 tab 05/20/22 05/25/23 Rx SILVER sulfADIAZINE Cream 1 applic TOPICAL BID PRN 06/28/22 05/25/23 History [Silvadene 1% Cream] Tamsulosin [Flomax] 0.4 mg PO DAILY@1200 06/28/22 05/25/23 History Bumetanide [BUMEX] 1 mg PO BID@0900,1700 09/02/22 05/25/23 History Levothyroxine Sodium [Synthroid] 150 mcg PO HS@0000 09/02/22 05/25/23 History traZODone HCL [Desyrel] 50 mg PO HS 12/15/22 05/25/23 History Acetaminophen Tab [Tylenol] 325 mg PO QID PRN 05/15/23 05/25/23 History Clotrimazole Cream [Lotrimin Cream] 1 applic TOPICAL BID PRN 05/15/23 05/25/23 History Gabapentin [Neurontin] 400 mg PO Q6H 05/15/23 05/25/23 History Insulin Glargine [Lantus Vial] 15 unit SQ HS 05/15/23 05/25/23 History Tolterodine ER [Detrol LA] 4 mg PO DAILY 05/15/23 05/25/23 History methocarbamoL [Robaxin-750] 750 mg PO Q6H PRN 05/15/23 05/25/23 History oxyCODONE-APAP 7.5-325MG [Percocet 1 tab PO QID 05/15/23 05/25/23 History 7.5-325 mg] clindamycin HCL [Cleocin] 300 mg PO Q6HR #40 cap 05/17/23 05/25/23 Rx metFORMIN HCL [Glucophage] 500 mg PO HS 05/25/23 05/25/23 History Allergies Allergy/AdvReac Type Severity Reaction Status Date / Time adhesive Allergy Rash/Hives Verified 05/25/23 15:38 cephalexin [From Keflex] Allergy Rash/Hives Verified 05/25/23 15:38 grass pollen Allergy Unknown Verified 05/25/23 15:38 mold Allergy Unknown Verified 05/25/23 15:38 Sulfa (Sulfonamide Allergy Rash/Hives Verified 05/25/23 15:38 Antibiotics) newspaper ink Allergy Mild Unknown Uncoded 05/25/23 15:38 Physical Exam Vitals: Vital Signs Temp Pulse Pulse Resp BP BP Pulse Ox 05/26/23 09:14 99 05/26/23 07:00 97.7 F 71 16 122/66 100 05/26/23 02:00 97.6 F 63 16 143/76 95 05/25/23 23:27 97.7 F 73 19 125/75 100 05/25/23 22:42 78 20 118/60 94 L 05/25/23 21:00 81 15 110/55 95 05/25/23 17:15 79 18 127/74 93 L 05/25/23 15:06 67 05/25/23 14:47 69 05/25/23 14:39 83 20 136/76 97 05/25/23 13:29 97.6 F 66 18 123/65 95 Intake and Output 05/25/23 05/26/23 05/26/23 22:59 06:59 14:59 Other: Voiding Method Bedside Commode # Voids 3 1 Weight 149.685 kg Results 05/25/23 13:51 05/25/23 13:51 Cardiac Enzymes 05/25/23 05/25/23 Range/Units 13:51 13:51 AST 28 (14-36) U/L Troponin I 0.033 (0.000-0.034) ng/mL Coagulation 05/25/23 Range/Units 13:51 PT 12.8 H (10.0-12.5) sec APTT 24.5 (22.0-30.0) sec CBC 05/25/23 Range/Units 13:51 WBC 6.1 (3.8-10.6) k/uL RBC 4.00 (3.80-5.40) m/uL Hgb 11.5 (11.4-16.0) gm/dL Hct 37.6 (34.0-46.0) % Plt Count 181 (150-450) k/uL Comprehensive Metabolic Panel 05/25/23 Range/Units 13:51 Sodium 140 (137-145) mmol/L Potassium 4.3 (3.5-5.1) mmol/L Chloride 103 (98-107) mmol/L Carbon Dioxide 31 H (22-30) mmol/L BUN 24 H (7-17) mg/dL Creatinine 0.89 (0.52-1.04) mg/dL Glucose 187 H (74-99) mg/dL Calcium 8.7 (8.4-10.2) mg/dL AST 28 (14-36) U/L ALT 16 (4-34) U/L Alkaline Phosphatase 85 (38-126) U/L Total Protein 7.2 (6.3-8.2) g/dL Albumin 3.7 (3.5-5.0) g/dL Current Medications Generic Name Dose Route Start Last Admin Trade Name Freq PRN Reason Stop Dose Admin Apixaban 5 mg 05/26/23 00:25 05/26/23 09:00 Apixaban 5 Mg Tab PO 5 mg BID@0900,1700 ASHUTOSH Administration Protocol Dextrose/Water 25 ml 05/26/23 00:28 Dextrose 50% Syringe 50 Ml IVP PER PROTOCOL PRN Hypoglycemia Protocol Dextrose/Water 50 ml 05/26/23 00:28 Dextrose 50% Syringe 50 Ml IVP PER PROTOCOL PRN Hypoglycemia Protocol Furosemide 40 mg 05/26/23 09:00 05/26/23 09:00 Furosemide 10 Mg/Ml 4 Ml Vial IV 40 mg Q12HR ASHUTOSH Administration Gabapentin 400 mg 05/26/23 00:30 05/26/23 06:22 Gabapentin 400 Mg Cap PO 400 mg Q6H ASHUTOSH Administration Hydromorphone HCl 1 mg 05/25/23 15:25 05/26/23 03:16 Hydromorphone 1 Mg/Ml 1 Ml Syringe IVP 1 mg Q4HR PRN Administration Pain Insulin Aspart 6 unit 05/26/23 07:30 05/26/23 09:00 Insulin Aspart (Novolog) 100 Unit/Ml Vial SQ 6 unit AC-TID ASHUTOSH Administration Insulin Aspart 0 unit 05/26/23 07:30 05/26/23 06:17 Insulin Aspart (Novolog) 100 Unit/Ml Vial SQ Not Given ACHS [facility] Protocol Insulin Detemir 15 unit 05/26/23 00:45 05/26/23 01:07 Insulin Detemir (Levemir) 100 Unit/Ml Syr SQ 15 unit HS ASHUTOSH Administration Insulin Detemir 30 unit 05/26/23 09:00 05/26/23 09:00 Insulin Detemir (Levemir) 100 Unit/Ml Syr SQ 30 unit DAILY ASHUTOSH Administration Levothyroxine Sodium 150 mcg 05/26/23 00:00 05/26/23 01:08 Levothyroxine 75 Mcg Tab PO 150 mcg HS@0000 ASHUTOSH Administration Naloxone HCl 0.2 mg 05/25/23 17:20 Naloxone 0.4 Mg/Ml 1 Ml Vial IV Q2M PRN Opioid Reversal Ondansetron HCl 4 mg 05/25/23 17:20 Ondansetron 4 Mg/2 Ml Vial IVP Q8HR PRN Nausea And Vomiting Oxycodone/Acetaminophen 1 each 05/26/23 00:25 05/26/23 01:45 Oxycodone-Apap 7.5-325mg 1 Each Tab PO 1 each QID PRN Administration Pain Trazodone HCl 50 mg 05/26/23 00:30 05/26/23 01:08 Trazodone Hcl 50 Mg Tab PO 50 mg HS ASHUTOSH Administration Intake and Output 05/25/23 05/26/23 05/26/23 22:59 06:59 14:59 Other: Voiding Method Bedside Commode # Voids 3 1 Weight 149.685 kg 05/25/23 13:51 05/25/23 13:51
[2023-05-26 11:02] LABS: Glucose,Whole Blood 123 mg/dL (70-110)
[2023-05-26 11:10] LABS: Basophils # (A) 0.07 X 10*3/uL (0.00-0.10); Eosinophils # (A) 0.24 X 10*3/uL (0.04-0.35); Eosinophils % (A) 3.3 %; HGB 11.4 g/dL (12.0-15.0); Lymphocytes # (A) 2.53 X 10*3/uL (0.90-5.00); Lymphocytes % (A) 34.4 %; MCH 27.9 pg (27.0-32.0); MCV 93.1 FL (80.0-97.0); Monocytes % (A) 9.5 %; NRBC Per 100 WBC 0 X 10*3/uL (0.00-0.01); Neutrophils # (A) 3.78 X 10*3/uL (1.80-7.70); Neutrophils % (A) 51.4 %; Platelet Count 158 X 10*3/uL (140-440); RBC 4.08 X 10*6/uL (4.10-5.20); RDW 17.7 % (11.5-14.5); WBC 7.35 X 10*3/uL (4.50-10.00)
[2023-05-26 11:39] LABS: ALT 14 U/L (8-44); AST 33 U/L (13-35); Albumin 3.5 g/dL (3.8-4.9); Albumin/Globulin Ratio 1.09 Ratio (1.60-3.17); Alkaline Phosphatase 84 U/L (41-126); Blood Urea Nitrogen 20.3 mg/dL (9.0-27.0); Calcium 8.8 mg/dL (8.7-10.3); Carbon Dioxide 28.2 mmol/L (21.6-31.8); Chloride 102 mmol/L (96-109); Globulin 3.2 g/dL (1.6-3.3); Glucose 114 mg/dL (70-110); Potassium 4.1 mmol/L (3.5-5.5); Sodium 143 mmol/L (135-145); Total Bilirubin 0.3 mg/dL (0.3-1.2); Total Protein 6.7 g/dL (6.2-8.2)
[2023-05-26] MEDS ORDERED: methocarbamoL 750 MG TAB PO PRN (12:13)
[2023-05-26] MEDS: MAG HYDROX/AL HYDROX/SIMETH 30 ML CUP PO ONE (12:20)
[2023-05-26] MEDS ORDERED: DIGOXIN 125 MCG TAB PO SCH (12:30)
[2023-05-26 17:14] LABS: Glucose,Whole Blood 111 mg/dL (70-110)
[2023-05-26] MEDS: CLINDAMYCIN 900 MG in DEXTROSE 5% IN WATER 50 ML IVPB SCH (18:55)
[2023-05-26 20:54] LABS: Glucose,Whole Blood 122 mg/dL (70-110)
--- NOTE | 2023-05-26 20:56 | HP ---
HISTORY AND PHYSICAL I am covering for Dr. Hart. CHIEF COMPLAINT: Shortness of breath. HISTORY OF PRESENT ILLNESS: This is an 82-year-old woman with a past medical history of multiple medical problems, complains of increasing shortness of breath. The patient has bilateral leg swelling and cellulitis also. The patient apparently gained about 40 to 50 pounds and the patient came to [facility]. The patient had features of CHF in the chest x- ray, admitted for further evaluation and treatment. The patient is on IV Lasix. There is no history of any fever, rigors, or chills at this time. PAST MEDICAL HISTORY: CAD, diabetes mellitus, hypertension, rheumatoid arthritis, dose and rest of history charted. HOME MEDICATIONS: Cleocin, dose and rest of medications noted. ALLERGIES: Adhesives. Rest of allergies noted. FAMILY HISTORY: History of CVA, TIA. SOCIAL HISTORY: Previous history of smoking. REVIEW OF SYSTEMS: A 14-point review is negative except as mentioned earlier. PHYSICAL EXAMINATION: VITAL SIGNS: Pulse is 71, blood pressure 120/66, respirations 16. HEENT: Conjunctivae normal. NECK: No JVD CARDIOVASCULAR: S1, S2. RESPIRATIONS: Breath sounds diminished at the bases. A few scattered rhonchi and crackles. ABDOMEN: Soft, nontender. LEGS: Bilateral leg edema. Cellulitis present. NERVOUS SYSTEM: Diffusely weak. LABORATORY DATA: Reviewed. ASSESSMENT: 1. Congestive heart failure acute exacerbation with acute on chronic diastolic dysfunction. 2. History of right ventricular hypertrophy. 3. Bilateral leg swelling and leg cellulitis. 4. Atrial fibrillation. 5. Diabetes mellitus, type 2. 6. Hypertension. 7. Hyperlipidemia. 8. Multiple complex medical issues. RECOMMENDATION AND DISCUSSION: This is an 82-year-old woman presented with multiple complex medical issues, we will monitor the patient closely. Continue the current medications, continue symptomatic treatment. I recommend to continue with Lasix. Otherwise, I would recommend fluid restriction 1200 mL per 24 hours. Monitor closely. Empiric antibiotics. Infectious Disease, Cardiology consultations. Resume home medications once they are confirmed. Prognosis guarded. Further recommendations to follow. MMODL / IJN: [id number] /
[2023-05-26] MEDS: LATANOPROST 0.005% OPHTH DROPS 2.5 ML BTL BOTH EYES SCH (21:17)
[2023-05-26] MEDS: ACETAMINOPHEN TAB 325 MG TAB PO PRN (21:19)
--- NOTE | 2023-05-26 23:54 | P.CONS ---
History of Present Illness - Reason for Consult Consult date: 05/26/23 Bilateral lower extremity wound and cellulitis Requesting physician: Kimberlee Lopez - Chief Complaint Increasing swelling and redness to bilateral leg x few days - History of Present Illness Patient is a 82-year-old female with a past medical history significant for atrial fibrillation diabetes mellitus hypertension hyperlipidemia coronary artery disease patient presenting to the hospital for evaluation of significant weight gain and also noticed to have increasing swelling to lower extremity with associated redness and some superficial ulceration from ruptured blister patient symptom has been getting worse for the last few days patient denies high-grade fever or chills patient denies having any headache or URI symptoms no chest pain has been complaining of some shortness of breath but no significant cough or sputum production no abdominal pain or diarrhea has been complaining of increasing swelling of bilateral lower extremity with associated redness and did have some dull aching pain to bilateral legs moderate intensity without radiation denies any purulent drainage patient on presentation to the hospital was afebrile and no fever have recorded subsequently patient is not tachycardic or hypotensive patient was mildly hypoxic with O2 sats of 93% currently on a 2 L nasal cannula oxygen patient did have white count of 7.35 creatinine 1.0 liver enzymes are normal patient was started on cefazolin however she did have a cephalexin allergy with a rash infectious disease was consulted for further management of antibiotic therapy Review of Systems Positive point and negatives has been mentioned in the HPI, complete review of systems was performed and all other systems are negative Past Medical History Past Medical History: Atrial Fibrillation, Coronary Artery Disease (CAD), Cancer, Diabetes Mellitus, Hyperlipidemia, Hypertension, Musculoskeletal Disorder, Neurologic Disorder, Osteoarthritis (OA), Pneumonia, Renal Disease, Rheumatoid Arthritis (RA), Skin Disorder, Thyroid Disorder Additional Past Medical History / Comment(s): Morbid obesity, chronic atrial fibrillation, diabetes mellitus type 2, hypertension, hyperlipidemia, spinal stenosis, osteoarthritis, hypothyroidism, hypertension, history of skin melanoma, history of bursitis with MRSA post I&D, rheumatoid arthritis, Sjogren's disease, 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 without any indication of ILD related to RA, Fall on July 22 transfer to [facility] for MRI, then Fall on 11/16/21 History of Any Multi-Drug Resistant Organisms: MRSA Year Discovered:: 09/02/22 MDRO Source:: Right Leg Past Surgical History: Back Surgery, Breast Surgery, Cholecystectomy, Heart Catheterization, Joint Replacement, Orthopedic Surgery Additional Past Surgical History / Comment(s): Bilateral cataracts with lens implants, arthroscopies to lt wrist, gualberto knees, gualberto ankles, gualberto hips, lt hip replacment and redone, L/R shoulder sxs, rt breast bx-benign, egd/colonoscopy, skin cancer removal L arm, Lumbar fixnation possible broken Past Anesthesia/Blood Transfusion Reactions: No Reported Reaction Additional Past Anesthesia/Blood Transfusion Reaction / Comm: Pt has been told not to have anesthesia metabolized by the kidneys and has neurologic Sjogren's with post anesthesia paralysis. Past Psychological History: No Psychological Hx Reported Additional Psychological History / Comment(s): . Smoking Status: Former smoker Past Alcohol Use History: None Reported Additional Past Alcohol Use History / Comment(s): Pt started smoking in 1961 and quit in 1969 Past Drug Use History: None Reported - Past Family History Mother Family Medical History: CVA/TIA Additional Family Medical History / Comment(s): RUPTURED BOWEL Father Family Medical History: Cancer, Pneumonia Additional Family Medical History / Comment(s): ASPIRATIVE PNA Sister(s) Additional Family Medical History / Comment(s): at age 34 with lupus Medications and Allergies Home Medications Medication Instructions Recorded Confirmed Type Latanoprost [Xalatan 0.005%] 1 drop BOTH EYES HS 08/11/17 05/25/23 History predniSONE 10 mg PO DAILY 07/23/21 05/25/23 History Magnesium Oxide 400 mg PO DAILY 08/30/21 05/25/23 History Calcium Citrate/Vitamin D3 1 tab PO BID@0900,1700 11/16/21 05/25/23 History [Citracal + D Maximum Caplet] Digoxin [Lanoxin] 125 mcg PO Q48H 11/16/21 05/25/23 History Nitroglycerin Sl Tabs [Nitrostat] 0.4 mg SL Q5M PRN 11/16/21 05/25/23 History Adalimumab [Humira(Cf) Pen] 40 mg SQ Q14D 01/09/22 05/25/23 History Apixaban [Eliquis] 5 mg PO BID@0900,1700 05/02/22 05/25/23 History INSULIN LISPRO (HumaLOG) [humaLOG] 6 units SQ AC-TID 05/02/22 05/25/23 History INSULIN LISPRO (HumaLOG) [humaLOG] See Protocol SQ AC-TID PRN 05/02/22 05/25/23 History Multivit-Min/FA/Lycopen/Lutein 1 tab PO DAILY 05/02/22 05/25/23 History [Centrum Silver Tablet] Insulin Glargine [Lantus Vial] 30 unit SQ DAILY 05/17/22 05/25/23 History Loratadine [Claritin] 10 mg PO DAILY #30 tab 05/20/22 05/25/23 Rx SILVER sulfADIAZINE Cream 1 applic TOPICAL BID PRN 06/28/22 05/25/23 History [Silvadene 1% Cream] Tamsulosin [Flomax] 0.4 mg PO DAILY@1200 06/28/22 05/25/23 History Bumetanide [BUMEX] 1 mg PO BID@0900,1700 09/02/22 05/25/23 History Levothyroxine Sodium [Synthroid] 150 mcg PO HS@0000 09/02/22 05/25/23 History traZODone HCL [Desyrel] 50 mg PO HS 12/15/22 05/25/23 History Acetaminophen Tab [Tylenol] 325 mg PO QID PRN 05/15/23 05/25/23 History Clotrimazole Cream [Lotrimin Cream] 1 applic TOPICAL BID PRN 05/15/23 05/25/23 History Gabapentin [Neurontin] 400 mg PO Q6H 05/15/23 05/25/23 History Insulin Glargine [Lantus Vial] 15 unit SQ HS 05/15/23 05/25/23 History Tolterodine ER [Detrol LA] 4 mg PO DAILY 05/15/23 05/25/23 History methocarbamoL [Robaxin-750] 750 mg PO Q6H PRN 05/15/23 05/25/23 History oxyCODONE-APAP 7.5-325MG [Percocet 1 tab PO QID 05/15/23 05/25/23 History 7.5-325 mg] metFORMIN HCL [Glucophage] 500 mg PO HS 05/25/23 05/25/23 History Nystatin 100,000 Unit/ml Susp 500,000 unit PO QID 7 Days #150 ml 05/30/23 Rx [Mycostatin Oral Susp] Potassium Chloride ER [K-Dur 20] 20 meq PO BID #60 tab 05/30/23 Rx Cephalexin [Keflex] 500 mg PO Q6HR 10 Days #40 cap 05/31/23 Rx Allergies Allergy/AdvReac Type Severity Reaction Status Date / Time adhesive Allergy Rash/Hives Verified 05/25/23 15:38 cephalexin [From Keflex] Allergy Rash/Hives Verified 05/25/23 15:38 grass pollen Allergy Unknown Verified 05/25/23 15:38 mold Allergy Unknown Verified 05/25/23 15:38 Sulfa (Sulfonamide Allergy Rash/Hives Verified 05/25/23 15:38 Antibiotics) newspaper ink Allergy Mild Unknown Uncoded 05/25/23 15:38 Physical Exam Vitals: Vital Signs Temp Pulse Pulse Resp BP BP Pulse Ox 05/26/23 09:14 99 05/26/23 07:00 97.7 F 71 16 122/66 100 05/26/23 02:00 97.6 F 63 16 143/76 95 05/25/23 23:27 97.7 F 73 19 125/75 100 05/25/23 22:42 78 20 118/60 94 L 05/25/23 21:00 81 15 110/55 95 05/25/23 17:15 79 18 127/74 93 L 05/25/23 15:06 67 05/25/23 14:47 69 05/25/23 14:39 83 20 136/76 97 Intake and Output 05/25/23 05/26/23 05/26/23 22:59 06:59 14:59 Intake Total 240 Output Total 1450 Balance -1210 Intake: Oral 240 Output: Urine 1450 Other: Voiding Method Bedside Commode Bedside Commode # Voids 3 1 Weight 149.685 kg GENERAL DESCRIPTION: Elderly female lying in bed, no distress. No tachypnea or accessory muscle of respiration use. HEENT: Shows Pallor , no scleral icterus. Oral mucous membrane is dry. No pharyngeal erythema or thrush NECK: Trachea central, no thyromegaly. LUNGS: Unlabored breathing. Decreased breath sound at the base HEART: S1, S2, regular rate and rhythm. No loud murmur ABDOMEN: Soft, no tenderness , guarding or rigidity, no organomegaly EXTREMITIES: Bilateral lower extremity swelling redness some superficial ulceration from ruptured blister warm to touch SKIN: No rash, no masses palpable. NEUROLOGICAL: The patient is awake, alert, oriented x3, mood and affect normal. Results CBC & Chem 7: 05/30/23 06:23 05/31/23 05:50 Labs: Abnormal Lab Results - Last 24 Hours (Table) 05/25/23 05/25/23 05/25/23 Range/Units 13:51 13:51 13:51 RBC (4.10-5.20) X 10*6/uL Hgb (12.0-15.0) g/dL MCHC 30.5 L (31.0-37.0) g/dL RDW 16.6 H (11.5-15.5) % PT 12.8 H (10.0-12.5) sec INR 1.2 H (<1.2) Carbon Dioxide 31 H (22-30) mmol/L Anion Gap (4.00-12.00) mmol/L BUN 24 H (7-17) mg/dL BUN/Creatinine Ratio (12.00-20.00) Ratio Glucose 187 H (74-99) mg/dL POC Glucose (mg/dL) (70-110) mg/dL Albumin (3.8-4.9) g/dL Albumin/Globulin Ratio (1.60-3.17) Ratio 05/26/23 05/26/23 05/26/23 Range/Units 01:07 05:44 05:44 RBC 4.08 L (4.10-5.20) X 10*6/uL Hgb 11.4 L (12.0-15.0) g/dL MCHC 30.0 L (31.0-37.0) g/dL RDW 17.7 H (11.5-15.5) % PT (10.0-12.5) sec INR (<1.2) Carbon Dioxide (22-30) mmol/L Anion Gap 12.80 H (4.00-12.00) mmol/L BUN (7-17) mg/dL BUN/Creatinine Ratio 20.30 H (12.00-20.00) Ratio Glucose 114 H (74-99) mg/dL POC Glucose (mg/dL) 178 H (70-110) mg/dL Albumin 3.5 L (3.8-4.9) g/dL Albumin/Globulin Ratio 1.09 L (1.60-3.17) Ratio 05/26/23 Range/Units 11:00 RBC (4.10-5.20) X 10*6/uL Hgb (12.0-15.0) g/dL MCHC (31.0-37.0) g/dL RDW (11.5-15.5) % PT (10.0-12.5) sec INR (<1.2) Carbon Dioxide (22-30) mmol/L Anion Gap (4.00-12.00) mmol/L BUN (7-17) mg/dL BUN/Creatinine Ratio (12.00-20.00) Ratio Glucose (74-99) mg/dL POC Glucose (mg/dL) 123 H (70-110) mg/dL Albumin (3.8-4.9) g/dL Albumin/Globulin Ratio (1.60-3.17) Ratio Assessment and Plan (1) Bilateral leg ulcer Status: Acute Code(s): L97.919 - NON-PRS CHRONIC ULC UNSP PRT OF R LOW LEG W UNSP SEVERITY; L97.929 - NON-PRS CHRONIC ULC UNSP PRT OF L LOW LEG W UNSP SEVERITY SNOMED Code(s): 57628347 (2) Allergy to multiple antibiotics Status: Acute Code(s): Z88.1 - ALLERGY STATUS TO OTHER ANTIBIOTIC AGENTS SNOMED Code(s): 765349171 (3) Bilateral lower leg cellulitis Status: Acute Code(s): L03.116 - CELLULITIS OF LEFT LOWER LIMB; L03.115 - CELLULITIS OF RIGHT LOWER LIMB SNOMED Code(s): 143021998 Plan: 1patient with bilateral lower extremity cellulitis in this patient with diffuse swelling and redness and evidence of fluid overload likely streptococcal disease clinically doubt gram-negative or MRSA infection 2-patient with a cephalexin and sulfa allergy that will limit the number of antibiotics safe to use 3-discontinue cefazolin 4-we will start the patient on clindamycin 900mg every 8 hours 5-apply Aquacel silver dressing to the open wound followed by Rocael wrap from just above the toe to below the knee We will follow on clinical condition and cultures to further adjust medication if needed Thank you for this consultation we will follow the patient along with you Dictation was produced using [employer] software. please excuse any grammatical, word or spelling errors. Time with Patient: Greater than 30
[2023-05-27 07:59] LABS: Glucose,Whole Blood 140 mg/dL (70-110)
[2023-05-27] MEDS: DIGOXIN 125 MCG TAB PO SCH (08:59)
[2023-05-27] MEDS: MULTIVITAMINS, THERA 1 EACH TAB PO SCH (08:59)
[2023-05-27] MEDS: MAGNESIUM OXIDE 400 MG TAB PO SCH (08:59)
[2023-05-27] MEDS: LORATADINE 10 MG TAB PO SCH (08:59)
[2023-05-27] MEDS: OXYBUTYNIN 10 MG TAB.ER.24 PO SCH (08:59)
[2023-05-27] MEDS: predniSONE 10 MG TAB PO SCH (08:59)
[2023-05-27 09:22] LABS: Basophils # (A) 0.05 X 10*3/uL (0.00-0.10); Basophils % (A) 0.7 %; Eosinophils # (A) 0.25 X 10*3/uL (0.04-0.35); Eosinophils % (A) 3.5 %; HCT 36.8 % (37.2-46.3); HGB 11.1 g/dL (12.0-15.0); Lymphocytes # (A) 2.09 X 10*3/uL (0.90-5.00); MCH 27.9 pg (27.0-32.0); MCHC 30.2 g/dL (32.0-37.0); MCV 92.5 FL (80.0-97.0); Mean Platelet Volume 10.5 FL (9.5-12.2); Monocytes # (A) 0.65 X 10*3/uL (0.20-1.00); NRBC Per 100 WBC 0 X 10*3/uL (0.00-0.01); Neutrophils # (A) 4.14 X 10*3/uL (1.80-7.70); Neutrophils % (A) 57.5 %; Platelet Count 142 X 10*3/uL (140-440); RBC 3.98 X 10*6/uL (4.10-5.20); RDW 17.4 % (11.5-14.5)
[2023-05-27 09:58] LABS: Blood Urea Nitrogen 22.6 mg/dL (9.0-27.0); Calcium 8.5 mg/dL (8.7-10.3); Carbon Dioxide 30.9 mmol/L (21.6-31.8); Chloride 101 mmol/L (96-109); Glucose 126 mg/dL (70-110); Potassium 3.7 mmol/L (3.5-5.5); Sodium 143 mmol/L (135-145)
[2023-05-27 12:11] LABS: Glucose,Whole Blood 203 mg/dL (70-110)
[2023-05-27] MEDS: TAMSULOSIN 0.4 MG CAP.ER.24H PO SCH (12:43)
--- NOTE | 2023-05-27 16:41 | PN ---
PROGRESS NOTE DATE OF SERVICE: 05/27/2023 SUBJECTIVE: This is an 82-year-old woman, who was admitted with CHF acute exacerbation and bilateral leg cellulitis. The patient is being closely monitored. No chest pain. No palpitations. No fever. PHYSICAL EXAMINATION: VITAL SIGNS: Pulse 77, blood pressure n, and respirations 18. CHEST: Clear to auscultation. CARDIOVASCULAR: S1 and S2. ABDOMEN: Soft. LEGS: Bilateral leg edema. LABORATORY DATA: Noted. ASSESSMENT: 1. Congestive heart failure acute exacerbation, acute on chronic diastolic dysfunction. 2. History of right ventricular hypertrophy. 3. Bilateral leg swelling with bilateral leg cellulitis. 4. Atrial fibrillation. 5. Diabetes mellitus type 2. 6. Hypertension. 7. Hyperlipidemia. 8. Multiple complex medical issues. RECOMMENDATIONS: Recommend to continue current management and continue symptomatic treatment. Otherwise, continue with diuretics. Repeat labs. Closely follow. Further recommendations to follow. Fluid restriction 1200 mL per 24 hours. MMODL / IJN: [id number] / MTDD
[2023-05-27 17:11] LABS: Glucose,Whole Blood 201 mg/dL (70-110)
--- NOTE | 2023-05-27 17:14 | P.PN ---
Subjective Progress Note Date: 05/27/23 Principal diagnosis: Reason for follow-up is bilateral lower extremity cellulitis Patient is a 82-year-old female with a past medical history significant for atrial fibrillation diabetes mellitus hypertension hyperlipidemia coronary artery disease patient presenting to the hospital for evaluation of significant weight gain and also noticed to have increasing swelling to lower extremity with associated redness, patient be diagnosed with the fluid overload and evidence of lower extremity cellulitis. On today's evaluation that is 05/27/2023,the patient denies any fever or any chills, patient is breathing comfortably on room air, the patient denies chest pain shortness of breath and no significant cough, patient denies abdominal pain, no nausea vomiting or diarrhea. Lower extremity discomfort slightly decreased. Patient white count is normal 7.20, creatinine is 1.0 Objective - Vital Signs Vital signs: Vital Signs Temp 98.1 F 05/27/23 14:00 Pulse 106 H 05/27/23 14:00 Resp 18 05/27/23 14:00 BP 132/82 05/27/23 14:00 Pulse Ox 93 L 05/27/23 14:00 FiO2 Intake & Output 05/26/23 05/27/23 05/27/23 18:59 06:59 18:59 Intake Total 1500 222 236 Output Total 2049 1200 440 Balance -876 -978 -204 Intake: Oral 1500 222 236 Output: Urine 2049 1200 440 Other: Voiding Method Bedside Commode # Voids 1 1 - Exam GENERAL DESCRIPTION: An elderly female lying in bed in no distress RESPIRATORY SYSTEM: Unlabored breathing , decreased breath sounds at bases HEART: S1 S2 regular rate and rhythm , ABDOMEN: Soft , no tenderness EXTREMITIES: Bilateral lower extremity wrapped in Rocael wrap - Labs CBC & Chem 7: 05/27/23 04:26 05/27/23 04:26 Labs: Abnormal Lab Results - Last 24 Hours (Table) 05/26/23 05/26/23 05/27/23 Range/Units 17:13 20:53 04:26 RBC (4.10-5.20) X 10*6/uL Hgb (12.0-15.0) g/dL Hct (37.2-46.3) % MCHC (32.0-37.0) g/dL RDW (11.5-14.5) % Est GFR (CKD-EPI) (>=60) BUN/Creatinine Ratio (12.00-20.00) Ratio Glucose (70-110) mg/dL POC Glucose (mg/dL) 111 H 122 H (70-110) mg/dL Hemoglobin A1c 8.8 H (<=6.0) % Calcium (8.7-10.3) mg/dL 05/27/23 05/27/23 05/27/23 Range/Units 04:26 04:26 07:57 RBC 3.98 L (4.10-5.20) X 10*6/uL Hgb 11.1 L (12.0-15.0) g/dL Hct 36.8 L (37.2-46.3) % MCHC 30.2 L (32.0-37.0) g/dL RDW 17.4 H (11.5-14.5) % Est GFR (CKD-EPI) 57 L (>=60) BUN/Creatinine Ratio 22.60 H (12.00-20.00) Ratio Glucose 126 H (70-110) mg/dL POC Glucose (mg/dL) 140 H (70-110) mg/dL Hemoglobin A1c (<=6.0) % Calcium 8.5 L (8.7-10.3) mg/dL 05/27/23 05/27/23 Range/Units 12:10 17:09 RBC (4.10-5.20) X 10*6/uL Hgb (12.0-15.0) g/dL Hct (37.2-46.3) % MCHC (32.0-37.0) g/dL RDW (11.5-14.5) % Est GFR (CKD-EPI) (>=60) BUN/Creatinine Ratio (12.00-20.00) Ratio Glucose (70-110) mg/dL POC Glucose (mg/dL) 203 H 201 H (70-110) mg/dL Hemoglobin A1c (<=6.0) % Calcium (8.7-10.3) mg/dL Assessment and Plan (1) Allergy to cephalosporin Current Visit: No Status: Acute Code(s): Z88.1 - ALLERGY STATUS TO OTHER ANTIBIOTIC AGENTS SNOMED Code(s): 488105378 (2) Bilateral lower leg cellulitis Current Visit: No Status: Acute Code(s): L03.116 - CELLULITIS OF LEFT LOWER LIMB; L03.115 - CELLULITIS OF RIGHT LOWER LIMB SNOMED Code(s): 827837206 Plan: 1patient with bilateral lower extremity cellulitis in this patient with diffuse swelling and redness and evidence of fluid overload likely streptococcal disease clinically doubt gram-negative or MRSA infection 2-patient with a cephalexin and sulfa allergy that will limit the number of antibiotics safe to use 3-patient to continue with clindamycin 900mg every 8 hours along with Rocael wrap from just above the toe to below the knee Dictation was produced using [employer] dictation software. please excuse any grammatical, word or spelling errors. Time with Patient: Less than 30
[2023-05-27] MEDS: metOLazone 2.5 MG TAB PO SCH (17:54)
--- NOTE | 2023-05-27 18:05 | P.PN ---
Subjective Progress Note Date: 05/27/23 This is a 82-year-old female with a past medical history significant for atrial fibrillation, nonischemic cardiomyopathy, nonobstructive CAD, congestive heart failure, hypertension, hyperlipidemia, and morbid obesity. Patient follows in the office with Dr. George. We have been asked to see the patient in consultation for congestive heart failure. Patient examined at the bedside. Patient was recently hospitalized secondary to lower extremity cellulitis. She states she has been receiving home care. The patient reports she has been feeling more short of breath. She states that her home care nurse was concerned about her and recommended that she come to the hospital for further evaluation. The pat terrence has significant lower extremity edema with chronic wounds. She also has weeping of the lower extremities. Patient denies any chest pain or pressure. Vital signs are stable. Telemetry reveals atrial fibrillation with controlled ventricular rate. DIAGNOSTICS: - EKG reveals atrial fibrillation with controlled ventricular rate. - Chest xray negative for acute process. - Laboratory data: WBC 6.1. Hemoglobin 11.5. Platelet count 181. Sodium 140. Potassium 4.3. BUN 24. Creatinine 0.89. Troponin negative x 1. proBNP 1220. - Current home cardiac medications include Eliquis 5 mg twice a day, Bumex 1 mg twice a day, digoxin 125 mcg every 48 hours. - Most recent echocardiogram obtained in 11/2022 revealed ejection fraction 50 to 55%, moderate MR, moderate AI, mild TR, moderate PI - Cardiac catheterization history: August 2017 revealing intermediate disease involving the mid circumflex Progress note May 27, 2023 Patient continues to be in rate controlled atrial fibrillation. She is having good response to IV Lasix. She is still having lower extremity swelling. Patient is frustrated about getting up and going to the bathroom. REVIEW OF SYSTEMS: At the time of my exam: CONSTITUTIONAL: Denies fever or chills. HEENT: Denies blurred vision, vision changes, or eye pain. Denies hemoptysis CARDIOVASCULAR: Denies chest pain. Denies orthopnea. Denies PND. Denies palpitations RESPIRATORY: Denies shortness of breath. GASTROINTESTINAL: Denies abdominal pain. Denies nausea or vomiting. HEMATOLOGIC: Denies bleeding disorders. GENITOURINARY: Denies any blood in urine. SKIN: Denies pruitis. Denies rash. PHYSICAL EXAM: VITAL SIGNS: Reviewed. GENERAL: Well-developed in no acute distress. HEENT: Head is normocephalic. Pupils are equal, round. Sclerae anicteric. Mucous membranes of the mouth are moist. Neck supple. No JVD or thyromegaly LUNGS: Respirations even and unlabored. Lungs essentially clear to auscultation bilaterally. HEART: Regular rate and rhythm. S1 and S2 heard. ABDOMEN: Soft. Nondistended. Nontender. EXTREMITIES: Normal range of motion. No clubbing or cyanosis. Peripheral pulses intact. Significant lower extremity edema noted with weeping noted. Bilateral lower extremities with evidence of cellulitis and chronic wounds. NEUROLOGIC: Awake and alert. Oriented x 3. ASSESSMENT: Shortness of breath Acute on chronic heart failure with preserved EF, 5055% Bilateral lower extremity cellulitis with chronic wounds Permanent atrial fibrillation Nonischemic cardiomyopathy with improved EF, was 40%, now 50 to 55% in 11/2022 Intermediate coronary artery disease without previous stenting Chronic hypoxic respiratory failure on home O2 at night Hypertension Hyperlipidemia Diabetes Morbid obesity PLAN: No need to repeat echocardiogram as this was performed in 11/2022 Continue IV Lasix 40 mg thrice daily. Give 1 dose of metolazone 2.5 mg . See clinical response. From tomorrow start Farxiga 10 mg and Aldactone 25 mg daily. Daily weights, accurate intake and output, and monitoring of kidney function Continue additional home cardiac medications Further recommendations pending patient course Objective - Vital Signs Vital signs: Vital Signs Temp 98.1 F 05/27/23 14:00 Pulse 106 H 05/27/23 14:00 Resp 18 05/27/23 14:00 BP 132/82 05/27/23 14:00 Pulse Ox 93 L 05/27/23 14:00 FiO2 Intake & Output 05/26/23 05/27/23 05/27/23 18:59 06:59 18:59 Intake Total 1500 222 736 Output Total 0 1200 1040 Balance -550 -978 -304 Intake: Oral 1500 222 736 Output: Urine 0 1200 1040 Other: Voiding Method Bedside Commode # Voids 1 1 - Labs CBC & Chem 7: 05/27/23 04:26 05/27/23 04:26 Labs: Abnormal Lab Results - Last 24 Hours (Table) 05/26/23 05/27/23 05/27/23 Range/Units 20:53 04:26 04:26 RBC (4.10-5.20) X 10*6/uL Hgb (12.0-15.0) g/dL Hct (37.2-46.3) % MCHC (32.0-37.0) g/dL RDW (11.5-14.5) % Est GFR (CKD-EPI) 57 L (>=60) BUN/Creatinine Ratio 22.60 H (12.00-20.00) Ratio Glucose 126 H (70-110) mg/dL POC Glucose (mg/dL) 122 H (70-110) mg/dL Hemoglobin A1c 8.8 H (<=6.0) % Calcium 8.5 L (8.7-10.3) mg/dL 05/27/23 05/27/23 05/27/23 Range/Units 04:26 07:57 12:10 RBC 3.98 L (4.10-5.20) X 10*6/uL Hgb 11.1 L (12.0-15.0) g/dL Hct 36.8 L (37.2-46.3) % MCHC 30.2 L (32.0-37.0) g/dL RDW 17.4 H (11.5-14.5) % Est GFR (CKD-EPI) (>=60) BUN/Creatinine Ratio (12.00-20.00) Ratio Glucose (70-110) mg/dL POC Glucose (mg/dL) 140 H 203 H (70-110) mg/dL Hemoglobin A1c (<=6.0) % Calcium (8.7-10.3) mg/dL 05/27/23 Range/Units 17:09 RBC (4.10-5.20) X 10*6/uL Hgb (12.0-15.0) g/dL Hct (37.2-46.3) % MCHC (32.0-37.0) g/dL RDW (11.5-14.5) % Est GFR (CKD-EPI) (>=60) BUN/Creatinine Ratio (12.00-20.00) Ratio Glucose (70-110) mg/dL POC Glucose (mg/dL) 201 H (70-110) mg/dL Hemoglobin A1c (<=6.0) % Calcium (8.7-10.3) mg/dL
[2023-05-27 20:59] LABS: Glucose,Whole Blood 188 mg/dL (70-110)
[2023-05-28 06:20] LABS: Glucose,Whole Blood 216 mg/dL (70-110)
[2023-05-28] MEDS: SPIRONOLACTONE 25 MG TAB PO SCH (08:15)
[2023-05-28] MEDS: DAPAGLIFLOZIN PROPANEDIOL 10 MG TABLET PO SCH (08:15)
[2023-05-28] MEDS: BUMETANIDE 1 MG TAB PO SCH (08:32)
[2023-05-28] MEDS: metOLazone 2.5 MG TAB PO SCH (08:33)
[2023-05-28 09:21] LABS: Basophils # (A) 0.05 X 10*3/uL (0.00-0.10); Basophils % (A) 0.7 %; Eosinophils # (A) 0.29 X 10*3/uL (0.04-0.35); Eosinophils % (A) 4.3 %; HCT 37.9 % (37.2-46.3); HGB 11.4 g/dL (12.0-15.0); Lymphocytes # (A) 2.22 X 10*3/uL (0.90-5.00); Lymphocytes % (A) 33.2 %; MCHC 30.1 g/dL (32.0-37.0); MCV 93.1 FL (80.0-97.0); Mean Platelet Volume 11.1 FL (9.5-12.2); Monocytes # (A) 0.55 X 10*3/uL (0.20-1.00); Monocytes % (A) 8.2 %; NRBC Per 100 WBC 0 X 10*3/uL (0.00-0.01); Neutrophils # (A) 3.54 X 10*3/uL (1.80-7.70); Neutrophils % (A) 53.2 %; Platelet Count 168 X 10*3/uL (140-440); RBC 4.07 X 10*6/uL (4.10-5.20); RDW 17.5 % (11.5-14.5); WBC 6.68 X 10*3/uL (4.50-10.00)
[2023-05-28 09:52] LABS: ALT 12 U/L (8-44); AST 22 U/L (13-35); Albumin 3.6 g/dL (3.8-4.9); Albumin/Globulin Ratio 1.16 Ratio (1.60-3.17); Alkaline Phosphatase 86 U/L (41-126); Blood Urea Nitrogen 25.8 mg/dL (9.0-27.0); Calcium 9.2 mg/dL (8.7-10.3); Carbon Dioxide 30.5 mmol/L (21.6-31.8); Chloride 98 mmol/L (96-109); Globulin 3.1 g/dL (1.6-3.3); Glucose 205 mg/dL (70-110); Potassium 3.5 mmol/L (3.5-5.5); Sodium 140 mmol/L (135-145); Total Bilirubin 0.4 mg/dL (0.3-1.2); Total Protein 6.7 g/dL (6.2-8.2)
--- NOTE | 2023-05-28 11:12 | P.PN ---
Subjective Progress Note Date: 05/28/23 This is a 82-year-old female with a past medical history significant for atrial fibrillation, nonischemic cardiomyopathy, nonobstructive CAD, congestive heart failure, hypertension, hyperlipidemia, and morbid obesity. Patient follows in the office with Dr. George. We have been asked to see the patient in consultation for congestive heart failure. Patient examined at the bedside. Patient was recently hospitalized secondary to lower extremity cellulitis. She states she has been receiving home care. The patient reports she has been feeling more short of breath. She states that her home care nurse was concerned about her and recommended that she come to the hospital for further evaluation. The pat terrence has significant lower extremity edema with chronic wounds. She also has weeping of the lower extremities. Patient denies any chest pain or pressure. Vital signs are stable. Telemetry reveals atrial fibrillation with controlled ventricular rate. DIAGNOSTICS: - EKG reveals atrial fibrillation with controlled ventricular rate. - Chest xray negative for acute process. - Laboratory data: WBC 6.1. Hemoglobin 11.5. Platelet count 181. Sodium 140. Potassium 4.3. BUN 24. Creatinine 0.89. Troponin negative x 1. proBNP 1220. - Current home cardiac medications include Eliquis 5 mg twice a day, Bumex 1 mg twice a day, digoxin 125 mcg every 48 hours. - Most recent echocardiogram obtained in 11/2022 revealed ejection fraction 50 to 55%, moderate MR, moderate AI, mild TR, moderate PI - Cardiac catheterization history: August 2017 revealing intermediate disease involving the mid circumflex Progress note May 27, 2023 Patient continues to be in rate controlled atrial fibrillation. She is having good response to IV Lasix. She is still having lower extremity swelling. Patient is frustrated about getting up and going to the bathroom. May 28, 2023 Patient is in chronic atrial fibrillation which is rate controlled on metoprolol and digoxin 125 mcg every other day. She is tolerating IV Lasix and tolerated metolazone with good urine output. She still has lower extremity swelling but has shown significant improvement since admission. She denies any chest pain chest pressure shortness of breath. Will transition her to p.o. diuretics today in order to bring her closer to the discharge readiness REVIEW OF SYSTEMS: At the time of my exam: CONSTITUTIONAL: Denies fever or chills. HEENT: Denies blurred vision, vision changes, or eye pain. Denies hemoptysis CARDIOVASCULAR: Denies chest pain. Denies orthopnea. Denies PND. Denies palpitations RESPIRATORY: Denies shortness of breath. GASTROINTESTINAL: Denies abdominal pain. Denies nausea or vomiting. HEMATOLOGIC: Denies bleeding disorders. GENITOURINARY: Denies any blood in urine. SKIN: Denies pruitis. Denies rash. PHYSICAL EXAM: VITAL SIGNS: Reviewed. GENERAL: Well-developed in no acute distress. HEENT: Head is normocephalic. Pupils are equal, round. Sclerae anicteric. Mucous membranes of the mouth are moist. Neck supple. No JVD or thyromegaly LUNGS: Respirations even and unlabored. Lungs essentially clear to auscultation bilaterally. HEART: Regular rate and rhythm. S1 and S2 heard. ABDOMEN: Soft. Nondistended. Nontender. EXTREMITIES: Normal range of motion. No clubbing or cyanosis. Peripheral pulse s intact. Significant lower extremity edema noted with weeping noted. Bilateral lower extremities with evidence of cellulitis and chronic wounds. NEUROLOGIC: Awake and alert. Oriented x 3. ASSESSMENT: Shortness of breath Acute on chronic heart failure with preserved EF, 5055% Bilateral lower extremity cellulitis with chronic wounds Permanent atrial fibrillation Nonischemic cardiomyopathy with improved EF, was 40%, now 50 to 55% in 11/2022 Intermediate coronary artery disease without previous stenting Chronic hypoxic respiratory failure on home O2 at night Hypertension Hyperlipidemia Diabetes Morbid obesity PLAN: No need to repeat echocardiogram as this was performed in 11/2022 Discontinue IV Lasix, start Bumex 1 mg p.o. twice daily which is her home dose. Add metolazone 2.5 milligrams for today. Continue digoxin for rate control A-fib Start Farxiga 10 mg and Aldactone 25 mg daily. Daily weights, accurate intake and output, and monitoring of kidney function Continue additional home cardiac medications If kidney function is stable, patient is tolerating oral diuretics, I anticipate that patient should be ready to be discharged tomorrow a.m. Care for bilateral lower extremity, compression stockings, leg elevation Objective - Vital Signs Vital signs: Vital Signs Temp 98.0 F 05/28/23 08:00 Pulse 77 05/28/23 08:00 Resp 16 05/28/23 08:00 BP 132/73 05/28/23 08:00 Pulse Ox 93 L 05/28/23 08:00 FiO2 Intake & Output 05/27/23 05/28/23 05/28/23 18:59 06:59 18:59 Intake Total 736 Output Total 1040 350 Balance -304 -350 Intake: Oral 736 Output: Urine 1040 350 Other: Voiding Method Bedside Commode Bedside Commode # Voids 1 2 - Labs CBC & Chem 7: 05/28/23 06:28 05/28/23 06:28 Labs: Abnormal Lab Results - Last 24 Hours (Table) 05/27/23 05/27/23 05/27/23 Range/Units 12:10 17:09 20:58 RBC (4.10-5.20) X 10*6/uL Hgb (12.0-15.0) g/dL MCHC (32.0-37.0) g/dL RDW (11.5-14.5) % Est GFR (CKD-EPI) (>=60) BUN/Creatinine Ratio (12.00-20.00) Ratio Glucose (70-110) mg/dL POC Glucose (mg/dL) 203 H 201 H 188 H (70-110) mg/dL Albumin (3.8-4.9) g/dL Albumin/Globulin Ratio (1.60-3.17) Ratio 05/28/23 05/28/23 05/28/23 Range/Units 06:19 06:28 06:28 RBC 4.07 L (4.10-5.20) X 10*6/uL Hgb 11.4 L (12.0-15.0) g/dL MCHC 30.1 L (32.0-37.0) g/dL RDW 17.5 H (11.5-14.5) % Est GFR (CKD-EPI) 57 L (>=60) BUN/Creatinine Ratio 25.80 H (12.00-20.00) Ratio Glucose 205 H (70-110) mg/dL POC Glucose (mg/dL) 216 H (70-110) mg/dL Albumin 3.6 L (3.8-4.9) g/dL Albumin/Globulin Ratio 1.16 L (1.60-3.17) Ratio
[2023-05-28 12:24] LABS: Glucose,Whole Blood 163 mg/dL (70-110)
--- NOTE | 2023-05-28 16:41 | P.PN ---
Subjective Progress Note Date: 05/28/23 Principal diagnosis: Reason for follow-up is bilateral lower extremity cellulitis Patient is a 82-year-old female with a past medical history significant for atrial fibrillation diabetes mellitus hypertension hyperlipidemia coronary artery disease patient presenting to the hospital for evaluation of significant weight gain and also noticed to have increasing swelling to lower extremity with associated redness, patient be diagnosed with the fluid overload and evidence of lower extremity cellulitis. On today's evaluation that is 05/28/2023,the patient remains to be afebrile, patient is on room air not requiring supplemental oxygen and denies any shortness of breath no chest pain or cough.Patient denies having any nausea or vomiting, no abdominal pain and no diarrhea, swelling of the lower extremity slightly decreased in intensity. Patient white count is 6.68, creatinine is 1.0 Objective - Vital Signs Vital signs: Vital Signs Temp 98.0 F 05/28/23 08:00 Pulse 77 05/28/23 08:00 Resp 16 05/28/23 08:00 BP 132/73 05/28/23 08:00 Pulse Ox 93 L 05/28/23 08:00 FiO2 Intake & Output 05/27/23 05/28/23 05/28/23 18:59 06:59 18:59 Intake Total 736 596 Output Total 5797 355 7544 Balance -304 -350 -704 Weight 142.2 kg Intake: Oral 736 596 Output: Urine 8693 108 7409 Other: Voiding Method Bedside Commode Bedside Commode # Voids 1 2 - Exam GENERAL DESCRIPTION: An elderly female lying in bed in no distress RESPIRATORY SYSTEM: Unlabored breathing , decreased breath sounds at bases HEART: S1 S2 regular rate and rhythm , ABDOMEN: Soft , no tenderness EXTREMITIES: Bilateral lower extremity swelling redness slightly decreased - Labs CBC & Chem 7: 05/28/23 06:28 05/28/23 06:28 Labs: Abnormal Lab Results - Last 24 Hours (Table) 05/27/23 05/27/23 05/28/23 Range/Units 17:09 20:58 06:19 RBC (4.10-5.20) X 10*6/uL Hgb (12.0-15.0) g/dL MCHC (32.0-37.0) g/dL RDW (11.5-14.5) % Est GFR (CKD-EPI) (>=60) BUN/Creatinine Ratio (12.00-20.00) Ratio Glucose (70-110) mg/dL POC Glucose (mg/dL) 201 H 188 H 216 H (70-110) mg/dL Albumin (3.8-4.9) g/dL Albumin/Globulin Ratio (1.60-3.17) Ratio 05/28/23 05/28/23 05/28/23 Range/Units 06:28 06:28 12:22 RBC 4.07 L (4.10-5.20) X 10*6/uL Hgb 11.4 L (12.0-15.0) g/dL MCHC 30.1 L (32.0-37.0) g/dL RDW 17.5 H (11.5-14.5) % Est GFR (CKD-EPI) 57 L (>=60) BUN/Creatinine Ratio 25.80 H (12.00-20.00) Ratio Glucose 205 H (70-110) mg/dL POC Glucose (mg/dL) 163 H (70-110) mg/dL Albumin 3.6 L (3.8-4.9) g/dL Albumin/Globulin Ratio 1.16 L (1.60-3.17) Ratio Assessment and Plan (1) Allergy to cephalosporin Current Visit: No Status: Acute Code(s): Z88.1 - ALLERGY STATUS TO OTHER ANTIBIOTIC AGENTS SNOMED Code(s): 324508822 (2) Bilateral lower leg cellulitis Current Visit: No Status: Acute Code(s): L03.116 - CELLULITIS OF LEFT LOWER LIMB; L03.115 - CELLULITIS OF RIGHT LOWER LIMB SNOMED Code(s): 337693973 Plan: 1patient with bilateral lower extremity cellulitis in this patient with diffuse swelling and redness and evidence of fluid overload likely streptococcal disease clinically doubt gram-negative or MRSA infection 2-patient with a cephalexin and sulfa allergy that will limit the number of antibiotics safe to use, however the patient mention she has taken some Afterwards and did okay 3-patient to continue with clindamycin 900mg every 8 hours along with Rocael wrap from just above the toe to below the knee, we will start the patient on oral Keflex if tolerates will be better drug for discharge Clindamycin Dictation was produced using [employer] software. please excuse any grammatical, word or spelling errors. Time with Patient: Less than 30
[2023-05-28 17:23] LABS: Glucose,Whole Blood 213 mg/dL (70-110)
[2023-05-28 20:03] LABS: Glucose,Whole Blood 192 mg/dL (70-110)
--- NOTE | 2023-05-29 02:53 | PN ---
PROGRESS NOTE DATE OF SERVICE: 05/28/2023 SUBJECTIVE: This is an 82-year-old woman, who was admitted with CHF acute exacerbation, also had bilateral leg cellulitis and infection also. No chest pain. No palpitation. OBJECTIVE: VITAL SIGNS: Pulse 77, blood pressure 130/70, respirations 16. CHEST: A few scattered rhonchi. ABDOMEN: Soft. LEGS: Bilateral leg cellulitis and swelling present. LABORATORY DATA: Reviewed. ASSESSMENT: 1. Congestive heart failure acute exacerbation with acute on chronic diastolic dysfunction. 2. History of right ventricular hypertrophy. 3. Bilateral leg swelling with bilateral leg cellulitis. 4. Atrial fibrillation. 5. Diabetes mellitus type 2. 6. Hypertension. 7. Hyperlipidemia. 8. Multiple medical issues. RECOMMENDATIONS AND DISCUSSION: Recommend to continue current management. Continue symptomatic treatment. The patient is on clindamycin. Continue the diuretics. Guarded prognosis. Further recommendations to follow. The patient was on Zaroxolyn. MMODL / IJN: [id number] /
[2023-05-29 06:28] LABS: Glucose,Whole Blood 189 mg/dL (70-110)
[2023-05-29 10:16] LABS: African American GFR (CKD) 60 (>60 ml/min/1.73 sqM); Anion Gap 10 mmol/L; Blood Urea Nitrogen 33 mg/dL (7-17); Calcium 9.3 mg/dL (8.4-10.2); Carbon Dioxide 34 mmol/L (22-30); Chloride 94 mmol/L (98-107); Glucose 203 mg/dL (74-99); Non-African American GFR(CKD) 52 (>60 ml/min/1.73 sqM); Potassium 3.3 mmol/L (3.5-5.1); Sodium 138 mmol/L (137-145)
--- NOTE | 2023-05-29 12:16 | P.PN ---
Subjective Progress Note Date: 05/29/23 This is a 82-year-old female with a past medical history significant for atrial fibrillation, nonischemic cardiomyopathy, nonobstructive CAD, congestive heart failure, hypertension, hyperlipidemia, and morbid obesity. Patient follows in the office with Dr. George. We have been asked to see the patient in consultation for congestive heart failure. Patient examined at the bedside. Patient was recently hospitalized secondary to lower extremity cellulitis. She states she has been receiving home care. The patient reports she has been feeling more short of breath. She states that her home care nurse was concerned about her and recommended that she come to the hospital for further evaluation. The masood ent has significant lower extremity edema with chronic wounds. She also has weeping of the lower extremities. Patient denies any chest pain or pressure. Vital signs are stable. Telemetry reveals atrial fibrillation with controlled ventricular rate. DIAGNOSTICS: - EKG reveals atrial fibrillation with controlled ventricular rate. - Chest xray negative for acute process. - Laboratory data: WBC 6.1. Hemoglobin 11.5. Platelet count 181. Sodium 140. Potassium 4.3. BUN 24. Creatinine 0.89. Troponin negative x 1. proBNP 1220. - Current home cardiac medications include Eliquis 5 mg twice a day, Bumex 1 mg twice a day, digoxin 125 mcg every 48 hours. - Most recent echocardiogram obtained in 11/2022 revealed ejection fraction 50 to 55%, moderate MR, moderate AI, mild TR, moderate PI - Cardiac catheterization history: August 2017 revealing intermediate disease involving the mid circumflex Progress note May 27, 2023 Patient continues to be in rate controlled atrial fibrillation. She is having good response to IV Lasix. She is still having lower extremity swelling. Patient is frustrated about getting up and going to the bathroom. May 28, 2023 Patient is in chronic atrial fibrillation which is rate controlled on metoprolol and digoxin 125 mcg every other day. She is tolerating IV Lasix and tolerated metolazone with good urine output. She still has lower extremity swelling but has shown significant improvement since admission. She denies any chest pain chest pressure shortness of breath. Will transition her to p.o. diuretics today in order to bring her closer to the discharge readiness 05/28 Patient denies having any chest pain, no shortness of breath at rest. Yesterday, IV Lasix was transitioned to oral Bumex and metolazone 2.5 mg, Farxiga 10 mg and Aldactone 25 mg were added. Patient has a negative fluid balance and documented weight loss. Patient continues to have some lower extremity edema and cellulitis. Blood pressure 138/54, heart rate 80, pulse ox 97% on room air. Telemetry is atrial fibrillation controlled rate. Repeat blood work reveals sodium 138, potassium 3.3, chloride 94, CO2 34, BUN 33 creatinine 1.01. Patient is followed by infectious disease for bilateral lower extremity cellulitis on clindamycin. PHYSICAL EXAM: VITAL SIGNS: Reviewed. GENERAL: Well-developed in no acute distress. HEENT: Head is normocephalic. Pupils are equal, round. Sclerae anicteric. Neck supple. No JVD or thyromegaly LUNGS: Respirations even and unlabored. Lungs essentially clear to auscultation bilaterally. HEART: Regular rate and rhythm. S1 and S2 heard. ABDOMEN: Soft. Nondistended. Nontender. EXTREMITIES: No clubbing or cyanosis. Peripheral pulses intact. Significant lower extremity edema noted with weeping noted. Bilateral lower extremities with evidence of cellulitis and chronic wounds. NEUROLOGIC: Awake and alert. Oriented x 3. ASSESSMENT: Shortness of breath Acute on chronic heart failure with preserved EF, 50-55% Bilateral lower extremity cellulitis with chronic wounds Permanent atrial fibrillation Nonischemic cardiomyopathy with improved EF, was 40%, now 50 to 55% in 11/2022 Intermediate coronary artery disease without previous stenting Chronic hypoxic respiratory failure on home O2 at night Hypertension Hyperlipidemia Diabetes Morbid obesity PLAN: No need to repeat echocardiogram as this was performed in 11/2022 Plan to resume patient back on IV Lasix 40 mg twice daily Also continue newly added: Metolazone 2.5 mg daily, Farxiga 10 mg daily, Aldactone 25 mg daily. Continue digoxin for rate control A-fib Daily weights, accurate intake and output, and monitoring of kidney function Continue additional home cardiac medications Continue treatment of cellulitis. Nurse practitioner note has been reviewed, I agree with documented findings and plan of care. Patient was seen and examined. Objective - Vital Signs Vital signs: Vital Signs Temp 97.8 F 05/29/23 00:59 Pulse 80 05/29/23 00:59 Resp 17 05/29/23 00:59 BP 138/54 05/29/23 00:59 Pulse Ox 97 05/29/23 00:59 FiO2 Intake & Output 03/31/24 04/01/24 04/01/24 18:59 06:59 18:59 Intake Total 776 Output Total 2925 600 Balance -2149 -600 Weight 142.2 kg 140.16 kg Intake: Oral 776 Output: Urine 2925 600 Other: Voiding Method Bedside Commode Bedside Commode - Labs CBC & Chem 7: 05/28/23 06:28 05/29/23 09:23 Labs: Abnormal Lab Results - Last 24 Hours (Table) 05/28/23 05/28/23 05/28/23 Range/Units 06:28 06:28 12:22 RBC 4.07 L (4.10-5.20) X 10*6/uL Hgb 11.4 L (12.0-15.0) g/dL MCHC 30.1 L (32.0-37.0) g/dL RDW 17.5 H (11.5-14.5) % Est GFR (CKD-EPI) 57 L (>=60) BUN/Creatinine Ratio 25.80 H (12.00-20.00) Ratio Glucose 205 H (70-110) mg/dL POC Glucose (mg/dL) 163 H (70-110) mg/dL Albumin 3.6 L (3.8-4.9) g/dL Albumin/Globulin Ratio 1.16 L (1.60-3.17) Ratio 05/28/23 05/28/23 05/29/23 Range/Units 17:21 20:02 06:27 RBC (4.10-5.20) X 10*6/uL Hgb (12.0-15.0) g/dL MCHC (32.0-37.0) g/dL RDW (11.5-14.5) % Est GFR (CKD-EPI) (>=60) BUN/Creatinine Ratio (12.00-20.00) Ratio Glucose (70-110) mg/dL POC Glucose (mg/dL) 213 H 192 H 189 H (70-110) mg/dL Albumin (3.8-4.9) g/dL Albumin/Globulin Ratio (1.60-3.17) Ratio
[2023-05-29 12:49] LABS: Glucose,Whole Blood 179 mg/dL (70-110)
[2023-05-29] MEDS: FUROSEMIDE 10 MG/ML 4 ML VIAL IV SCH (13:05)
[2023-05-29] MEDS ORDERED: Potassium Replacement Protocol 1 EACH MISC MISCELLANE PRN (14:24)
[2023-05-29] MEDS: NYSTATIN 100,000 UNIT/ML SUSP 500,000 UNIT/5 ML CUP PO SCH (16:01)
[2023-05-29] MEDS: POTASSIUM CHLORIDE ER 20 MEQ TAB.ER PO SCH (16:01)
[2023-05-29 17:42] LABS: Glucose,Whole Blood 215 mg/dL (70-110)
--- NOTE | 2023-05-29 19:31 | P.PN ---
Subjective Progress Note Date: 05/29/23 Principal diagnosis: Reason for follow-up is bilateral lower extremity cellulitis Patient is a 82-year-old female with a past medical history significant for atrial fibrillation diabetes mellitus hypertension hyperlipidemia coronary artery disease patient presenting to the hospital for evaluation of significant weight gain and also noticed to have increasing swelling to lower extremity with associated redness, patient be diagnosed with the fluid overload and evidence of lower extremity cellulitis. On today's evaluation that is 05/29/2023, the patient continues to be afebrile, the patient is on room air and breathing comfortably, the Pt denies having any chest pain or cough, the patient denies having any abdominal pain no vomiting or any diarrhea lower extremity swelling redness slightly decreased. Patient did have a creatinine 1.01 Objective - Vital Signs Vital signs: Vital Signs Temp 97.6 F 05/29/23 08:00 Pulse 61 05/29/23 08:00 Resp 16 05/29/23 08:00 BP 135/71 05/29/23 08:00 Pulse Ox 98 05/29/23 08:00 FiO2 Intake & Output 05/28/23 05/29/23 05/29/23 18:59 06:59 18:59 Intake Total 776 358 Output Total 2925 600 900 Balance -2149 -600 -542 Weight 142.2 kg 140.16 kg Intake: Oral 776 358 Output: Urine 2925 600 900 Other: Voiding Method Bedside Commode Bedside Commode Bedside Commode - Exam Elderly female up in the chair in no distress Bilateral legs are currently wrapped in Rocael wrap no drainage - Labs CBC & Chem 7: 05/28/23 06:28 05/29/23 09:23 Labs: Abnormal Lab Results - Last 24 Hours (Table) 05/28/23 05/28/23 05/29/23 Range/Units 17:21 20:02 06:27 Potassium (3.5-5.1) mmol/L Chloride (98-107) mmol/L Carbon Dioxide (22-30) mmol/L BUN (7-17) mg/dL Glucose (74-99) mg/dL POC Glucose (mg/dL) 213 H 192 H 189 H (70-110) mg/dL 05/29/23 05/29/23 Range/Units 09:23 12:47 Potassium 3.3 L (3.5-5.1) mmol/L Chloride 94 L (98-107) mmol/L Carbon Dioxide 34 H (22-30) mmol/L BUN 33 H (7-17) mg/dL Glucose 203 H (74-99) mg/dL POC Glucose (mg/dL) 179 H (70-110) mg/dL Assessment and Plan (1) Allergy to cephalosporin Current Visit: No Status: Acute Code(s): Z88.1 - ALLERGY STATUS TO OTHER ANTIBIOTIC AGENTS SNOMED Code(s): 790592893 (2) Bilateral lower leg cellulitis Current Visit: No Status: Acute Code(s): L03.116 - CELLULITIS OF LEFT LOWER LIMB; L03.115 - CELLULITIS OF RIGHT LOWER LIMB SNOMED Code(s): 344272476 Plan: 1patient with bilateral lower extremity cellulitis in this patient with diffuse swelling and redness and evidence of fluid overload likely streptococcal disease clinically doubt gram-negative or MRSA infection 2-patient with a cephalexin and sulfa allergy that will limit the number of antibiotics safe to use, however the patient mention she has taken some Afterwards and did okay 3-patient has tolerated dose of cefazolin clinic without true cephalexin allergy will discontinue clindamycin and start the patient on cefazolin 2 g. Every 8 hour and reevaluate the leg tomorrow Dictation was produced using [employer] dictation software. please excuse any grammatical, word or spelling errors. Time with Patient: Less than 30
[2023-05-29 20:18] LABS: Glucose,Whole Blood 221 mg/dL (70-110)
--- NOTE | 2023-05-30 03:51 | PN ---
PROGRESS NOTE DATE OF SERVICE: 05/29/2023 SUBJECTIVE: This is an 82-year-old woman, who was admitted with CHF, acute exacerbation, also had cellulitis also. Cardiology is following the patient closely. No chest pain. No palpitation. PHYSICAL EXAMINATION: VITAL SIGNS: On exam, pulse 61, blood pressure 130/70, and respirations 16. CHEST: Few scattered rhonchi and crackles. ABDOMEN: Soft and obese. LEGS: Bilateral cellulitis. LABORATORY DATA: Potassium 3.3. ASSESSMENT: 1. Congestive heart failure, acute exacerbation with acute on chronic diastolic dysfunction. 2. History of right ventricular hypertrophy. 3. Bilateral leg swelling and leg cellulitis. 4. Atrial fibrillation. 5. Diabetes mellitus, type 2. 6. Multiple medical issues. RECOMMENDATIONS: Recommend to continue current management, continue symptomatic treatment, and continue with Lasix. Monitor fluid and electrolyte balance closely. Repeat labs in the morning. Potassium supplementation protocol. Closely follow with the Cardiology. Guarded prognosis. Further recommendations to follow. MMODL / IJN: [id number] /
[2023-05-30 06:13] LABS: Glucose,Whole Blood 187 mg/dL (70-110)
[2023-05-30 11:03] LABS: Basophils # (A) 0.06 X 10*3/uL (0.00-0.10); Basophils % (A) 0.7 %; Eosinophils # (A) 0.35 X 10*3/uL (0.04-0.35); HCT 42.1 % (37.2-46.3); HGB 12.5 g/dL (12.0-15.0); Lymphocytes # (A) 3.12 X 10*3/uL (0.90-5.00); Lymphocytes % (A) 35.8 %; MCH 27.6 pg (27.0-32.0); MCHC 29.7 g/dL (32.0-37.0); MCV 92.9 FL (80.0-97.0); Mean Platelet Volume 10.8 FL (9.5-12.2); Monocytes # (A) 0.78 X 10*3/uL (0.20-1.00); Monocytes % (A) 8.9 %; NRBC Per 100 WBC 0 X 10*3/uL (0.00-0.01); Neutrophils # (A) 4.37 X 10*3/uL (1.80-7.70); Neutrophils % (A) 50.1 %; Platelet Count 191 X 10*3/uL (140-440); RBC 4.53 X 10*6/uL (4.10-5.20); RDW 17.7 % (11.5-14.5); WBC 8.72 X 10*3/uL (4.50-10.00)
[2023-05-30 11:17] LABS: BUN/Creat Ratio 27.55 Ratio (12.00-20.00); Blood Urea Nitrogen 30.3 mg/dL (9.0-27.0); Calcium 10.1 mg/dL (8.7-10.3); Carbon Dioxide 34.5 mmol/L (21.6-31.8); Chloride 91 mmol/L (96-109); Glucose 169 mg/dL (70-110); Potassium 3.4 mmol/L (3.5-5.5); Sodium 141 mmol/L (135-145)
[2023-05-30 11:42] LABS: Glucose,Whole Blood 128 mg/dL (70-110)
[2023-05-30] MEDS: POTASSIUM CHLORIDE ER 20 MEQ TAB.ER PO SCH (12:37)
--- NOTE | 2023-05-30 13:04 | P.PN ---
Subjective Progress Note Date: 05/30/23 This is a 82-year-old female with a past medical history significant for atrial fibrillation, nonischemic cardiomyopathy, nonobstructive CAD, congestive heart failure, hypertension, hyperlipidemia, and morbid obesity. Patient follows in the office with Dr. George. We have been asked to see the patient in consultation for congestive heart failure. Patient examined at the bedside. Patient was recently hospitalized secondary to lower extremity cellulitis. She states she has been receiving home care. The patient reports she has been feeling more short of breath. She states that her home care nurse was concerned about her and recommended that she come to the hospital for further evaluation. The masood ent has significant lower extremity edema with chronic wounds. She also has weeping of the lower extremities. Patient denies any chest pain or pressure. Vital signs are stable. Telemetry reveals atrial fibrillation with controlled ventricular rate. DIAGNOSTICS: - EKG reveals atrial fibrillation with controlled ventricular rate. - Chest xray negative for acute process. - Laboratory data: WBC 6.1. Hemoglobin 11.5. Platelet count 181. Sodium 140. Potassium 4.3. BUN 24. Creatinine 0.89. Troponin negative x 1. proBNP 1220. - Current home cardiac medications include Eliquis 5 mg twice a day, Bumex 1 mg twice a day, digoxin 125 mcg every 48 hours. - Most recent echocardiogram obtained in 11/2022 revealed ejection fraction 50 to 55%, moderate MR, moderate AI, mild TR, moderate PI - Cardiac catheterization history: August 2017 revealing intermediate disease involving the mid circumflex Progress note May 27, 2023 Patient continues to be in rate controlled atrial fibrillation. She is having good response to IV Lasix. She is still having lower extremity swelling. Patient is frustrated about getting up and going to the bathroom. May 28, 2023 Patient is in chronic atrial fibrillation which is rate controlled on metoprolol and digoxin 125 mcg every other day. She is tolerating IV Lasix and tolerated metolazone with good urine output. She still has lower extremity swelling but has shown significant improvement since admission. She denies any chest pain chest pressure shortness of breath. Will transition her to p.o. diuretics today in order to bring her closer to the discharge readiness 05/28 Patient denies having any chest pain, no shortness of breath at rest. Yesterday, IV Lasix was transitioned to oral Bumex and metolazone 2.5 mg, Farxiga 10 mg and Aldactone 25 mg were added. Patient has a negative fluid balance and documented weight loss. Patient continues to have some lower extremity edema and cellulitis. Blood pressure 138/54, heart rate 80, pulse ox 97% on room air. Telemetry is atrial fibrillation controlled rate. Repeat blood work reveals sodium 138, potassium 3.3, chloride 94, CO2 34, BUN 33 creatinine 1.01. Patient is followed by infectious disease for bilateral lower extremity cellulitis on clindamycin. 05/29 Blood pressure 107/54, heart rate 53, pulse ox 97% on room air. Yesterday, we resumed patient on IV Lasix at 40 mg every 12 hours. Patient has a negative fluid balance yesterday of 2749. She has documented weight loss of almost 4 kg. Patient feels that her breathing is improved. She has less lower extremity edema. She is anxious to go home today. Repeat blood work reveals sodium 141, potassium 3.4, BUN 30 creatinine 1.1. CO2 34 hemoglobin 12.5. Potassium replacement has been ordered PHYSICAL EXAM: VITAL SIGNS: Reviewed. GENERAL: Well-developed in no acute distress. HEENT: Head is normocephalic. Pupils are equal, round. Sclerae anicteric. Neck supple. No JVD or thyromegaly LUNGS: Respirations even and unlabored. Lungs essentially clear to auscultation bilaterally. HEART: Regular rate and rhythm. S1 and S2 heard. ABDOMEN: Soft. Nondistended. Nontender. EXTREMITIES: No clubbing or cyanosis. Peripheral pulses intact. 2+ lower extremity edema. Bilateral lower extremities with evidence of cellulitis and chronic wounds. NEUROLOGIC: Awake and alert. Oriented x 3. ASSESSMENT: Shortness of breath Acute on chronic heart failure with preserved EF, 50-55% Bilateral lower extremity cellulitis with chronic wounds Permanent atrial fibrillation Nonischemic cardiomyopathy with improved EF, was 40%, now 50 to 55% in 11/2022 Intermediate coronary artery disease without previous stenting Chronic hypoxic respiratory failure on home O2 at night Hypertension Hyperlipidemia Diabetes Morbid obesity PLAN: No need to repeat echocardiogram as this was performed in 11/2022 Patient is cleared for discharge from cardiology Continue current cardiac medications Recommend resuming Bumex 1 mg twice daily at home Patient may follow-up in the office with Dr. George in 1 to 2 weeks. Nurse practitioner note has been reviewed, I agree with documented findings and plan of care. Patient was seen and examined. Objective - Vital Signs Vital signs: Vital Signs Temp 98.4 F 05/30/23 07:32 Pulse 53 L 05/30/23 07:32 Resp 18 05/30/23 07:32 BP 107/54 05/30/23 07:32 Pulse Ox 97 05/30/23 07:32 FiO2 Intake & Output 05/29/23 05/30/23 05/30/23 18:59 06:59 18:59 Intake Total 598 Output Total 2450 1300 Balance -1852 -1300 Weight 136.3 kg Intake: Oral 598 Output: Urine 2450 1300 Other: Voiding Method Bedside Commode # Voids 1 - Labs CBC & Chem 7: 05/30/23 06:23 05/30/23 06:23 Labs: Abnormal Lab Results - Last 24 Hours (Table) 05/29/23 05/29/23 05/29/23 Range/Units 09:23 12:47 17:40 Potassium 3.3 L (3.5-5.1) mmol/L Chloride 94 L (98-107) mmol/L Carbon Dioxide 34 H (22-30) mmol/L BUN 33 H (7-17) mg/dL Glucose 203 H (74-99) mg/dL POC Glucose (mg/dL) 179 H 215 H (70-110) mg/dL 05/29/23 05/30/23 Range/Units 20:17 06:12 Potassium (3.5-5.1) mmol/L Chloride (98-107) mmol/L Carbon Dioxide (22-30) mmol/L BUN (7-17) mg/dL Glucose (74-99) mg/dL POC Glucose (mg/dL) 221 H 187 H (70-110) mg/dL
--- NOTE | 2023-05-30 14:51 | P.PN ---
Subjective Progress Note Date: 05/30/23 Principal diagnosis: Reason for follow-up is bilateral lower extremity cellulitis Patient is a 82-year-old female with a past medical history significant for atrial fibrillation diabetes mellitus hypertension hyperlipidemia coronary artery disease patient presenting to the hospital for evaluation of significant weight gain and also noticed to have increasing swelling to lower extremity with associated redness, patient be diagnosed with the fluid overload and evidence of lower extremity cellulitis. On today's evaluation that is 05/30/2023, Patient is afebrile patient is currently on room air and denies having any shortness of breath, the patient denies any chest pain or cough, the patient denies any nausea vomiting did not have any abdominal pain and no diarrhea, mention swelling to the leg have slightly decreased in intensity. Patient white count is 8.72, creatinine is 1.1 Objective - Vital Signs Vital signs: Vital Signs Temp 98.1 F 05/30/23 14:00 Pulse 82 05/30/23 14:00 Resp 17 05/30/23 14:00 BP 131/71 05/30/23 14:00 Pulse Ox 92 L 05/30/23 14:00 FiO2 Intake & Output 05/29/23 05/30/23 05/30/23 18:59 06:59 18:59 Intake Total 598 600 Output Total 2450 1300 Balance -1852 -1300 600 Weight 136.3 kg Intake: Oral 598 600 Output: Urine 2450 1300 Other: Voiding Method Bedside Commode # Voids 1 - Exam GENERAL DESCRIPTION: An elderly female up in bed in no distress RESPIRATORY SYSTEM: Unlabored breathing , decreased breath sounds at bases HEART: S1 S2 regular rate and rhythm , ABDOMEN: Soft , no tenderness EXTREMITIES: Bilateral legs are currently wrapped in Rocael wrap minimal erythema - Labs CBC & Chem 7: 05/30/23 06:23 05/30/23 06:23 Labs: Abnormal Lab Results - Last 24 Hours (Table) 05/29/23 05/29/23 05/30/23 Range/Units 17:40 20:17 06:12 MCHC (32.0-37.0) g/dL RDW (11.5-14.5) % Potassium (3.5-5.5) mmol/L Chloride (96-109) mmol/L Carbon Dioxide (21.6-31.8) mmol/L Anion Gap (4.00-12.00) mmol/L BUN (9.0-27.0) mg/dL Est GFR (CKD-EPI) (>=60) BUN/Creatinine Ratio (12.00-20.00) Ratio Glucose (70-110) mg/dL POC Glucose (mg/dL) 215 H 221 H 187 H (70-110) mg/dL 05/30/23 05/30/23 05/30/23 Range/Units 06:23 06:23 11:37 MCHC 29.7 L (32.0-37.0) g/dL RDW 17.7 H (11.5-14.5) % Potassium 3.4 L (3.5-5.5) mmol/L Chloride 91 L (96-109) mmol/L Carbon Dioxide 34.5 H (21.6-31.8) mmol/L Anion Gap 15.50 H (4.00-12.00) mmol/L BUN 30.3 H (9.0-27.0) mg/dL Est GFR (CKD-EPI) 50 L (>=60) BUN/Creatinine Ratio 27.55 H (12.00-20.00) Ratio Glucose 169 H (70-110) mg/dL POC Glucose (mg/dL) 128 H (70-110) mg/dL Assessment and Plan (1) Allergy to cephalosporin Current Visit: No Status: Acute Code(s): Z88.1 - ALLERGY STATUS TO OTHER ANTIBIOTIC AGENTS SNOMED Code(s): 773803929 (2) Bilateral lower leg cellulitis Current Visit: No Status: Acute Code(s): L03.116 - CELLULITIS OF LEFT LOWER LIMB; L03.115 - CELLULITIS OF RIGHT LOWER LIMB SNOMED Code(s): 939740778 Plan: 1patient with bilateral lower extremity cellulitis in this patient with diffuse swelling and redness and evidence of fluid overload likely streptococcal disease clinically doubt gram-negative or MRSA infection 2-patient with a cephalexin and sulfa allergy that will limit the number of antibiotics safe to use, however the patient mention she has taken some Afterwards and did okay 3-patient still have swelling erythema to lower extremity and will benefit from another day of IV antibiotic therapy before transitioning her to oral Keflex continue cefazolin 2 g every 8 hours Dictation was produced using [employer] dictation software. please excuse any grammatical, word or spelling errors. Time with Patient: Less than 30
[2023-05-30 17:26] LABS: Glucose,Whole Blood 218 mg/dL (70-110)
[2023-05-30 21:12] LABS: Glucose,Whole Blood 224 mg/dL (70-110)
--- NOTE | 2023-05-30 22:50 | P.PN ---
Subjective Progress Note Date: 05/30/23 Patient is evaluated today sitting up on the edge of the bed. Remains on IV lasix with adequate diuresis. Lower extremity edema has improved. Lower extremities are still erythematous bilaterally and continues on IV cefazolin. ID following and recommending to continue on IV antibiotics overnight with transi tion to oral antibiotics in the AM. Patient wanting to discharge home today. Blood sugar in the 200s. Review of Systems Constitutional: Denied any fatigue denied any fever. Cardio vascular: denied any chest pain, palpitations Gastrointestinal: denied any nausea, vomiting, diarrhea Pulmonary: Denied any shortness of breath cough Neurologic denied any new focal deficits All inpatient medications were reviewed and appropriate changes in these medications as dictated in the interval history and assessment and plan. PHYSICAL EXAMINATION: GENERAL: The patient is alert and oriented x3, not in any acute distress. Well developed, well nourished. HEENT: Pupils are round and equally reacting to light. EOMI. No scleral icterus. No conjunctival pallor. Normocephalic, atraumatic. No pharyngeal erythema. No thyromegaly. CARDIOVASCULAR: S1 and S2 present. No murmurs, rubs, or gallops. PULMONARY: Chest is clear to auscultation, no wheezing or crackles. ABDOMEN: Soft, nontender, nondistended, normoactive bowel sounds. No palpable organomegaly. MUSCULOSKELETAL: No joint swelling or deformity. EXTREMITIES: No cyanosis, clubbing, Mild lower extremity edema. NEUROLOGICAL: Gross neurological examination did not reveal any focal deficits. SKIN: No rashes. Cellulitic lower extremities bilaterally. Assessment and Plan Acute on chronic diastolic dysfunction continues on IV lasix Bilateral lower extremity cellulitis continues on IV cefazolin, ID following Atrial fibrillation, persistent anticoagulated with eliquis Diabetes Mellitus type 2 continue with accuchecks ACHS and sliding scale insulin, scheduled insulin and long acting insulin. Hypertension History of right ventricular hypertrophy Hx hyperlipidemia Hx rheumatoid arthritis Hx hypothyroidism Sjogrens disease Hx of MRSA GI prophylaxis DVT prophylaxis Full Code Continue on IV antibiotics, IV lasix. Transition to home dose of oral bumex on discharge. Repeat BMP in the AM. Possible DC home in the next 24 hours. The impression and plan of care has been dictated by Hanane Ta Nurse Practitioner as directed. Dr. Magnus MD I have performed a history and physical examination and medical decision making of this patient, discussed the same with the dictator, and agree with the dictators assessment and plan as written, documented as a scribe. Based on total visit time, I have performed more than 50% of this visit. Objective - Vital Signs Vital signs: Vital Signs Temp 98.4 F 05/30/23 07:32 Pulse 53 L 05/30/23 07:32 Resp 18 05/30/23 07:32 BP 107/54 05/30/23 07:32 Pulse Ox 97 05/30/23 07:32 FiO2 Intake & Output 05/29/23 05/30/23 05/30/23 18:59 06:59 18:59 Intake Total 598 360 Output Total 2450 1300 Balance -1852 -1300 360 Weight 136.3 kg Intake: Oral 598 360 Output: Urine 2450 1300 Other: Voiding Method Bedside Commode # Voids 1 - Labs CBC & Chem 7: 05/30/23 06:23 05/30/23 06:23 Labs: Abnormal Lab Results - Last 24 Hours (Table) 05/29/23 05/29/23 05/29/23 Range/Units 12:47 17:40 20:17 POC Glucose (mg/dL) 179 H 215 H 221 H (70-110) mg/dL 05/30/23 Range/Units 06:12 POC Glucose (mg/dL) 187 H (70-110) mg/dL Assessment and Plan Time with Patient: Less than 30
[2023-05-31 06:32] LABS: Glucose,Whole Blood 165 mg/dL (70-110)
[2023-05-31 07:54] VITALS: BP 128/70; PULSE 69; RESP 18; TEMP 97.4
--- NOTE | 2023-05-31 09:24 | P.PN ---
Subjective Progress Note Date: 05/31/23 This is a 82-year-old female with a past medical history significant for atrial fibrillation, nonischemic cardiomyopathy, nonobstructive CAD, congestive heart failure, hypertension, hyperlipidemia, and morbid obesity. Patient follows in the office with Dr. George. We have been asked to see the patient in consultation for congestive heart failure. Patient examined at the bedside. Patient was recently hospitalized secondary to lower extremity cellulitis. She states she has been receiving home care. The patient reports she has been feeling more short of breath. She states that her home care nurse was concerned about her and recommended that she come to the hospital for further evaluation. The masood ent has significant lower extremity edema with chronic wounds. She also has weeping of the lower extremities. Patient denies any chest pain or pressure. Vital signs are stable. Telemetry reveals atrial fibrillation with controlled ventricular rate. DIAGNOSTICS: - EKG reveals atrial fibrillation with controlled ventricular rate. - Chest xray negative for acute process. - Laboratory data: WBC 6.1. Hemoglobin 11.5. Platelet count 181. Sodium 140. Potassium 4.3. BUN 24. Creatinine 0.89. Troponin negative x 1. proBNP 1220. - Current home cardiac medications include Eliquis 5 mg twice a day, Bumex 1 mg twice a day, digoxin 125 mcg every 48 hours. - Most recent echocardiogram obtained in 11/2022 revealed ejection fraction 50 to 55%, moderate MR, moderate AI, mild TR, moderate PI - Cardiac catheterization history: August 2017 revealing intermediate disease involving the mid circumflex Progress note May 27, 2023 Patient continues to be in rate controlled atrial fibrillation. She is having good response to IV Lasix. She is still having lower extremity swelling. Patient is frustrated about getting up and going to the bathroom. May 28, 2023 Patient is in chronic atrial fibrillation which is rate controlled on metoprolol and digoxin 125 mcg every other day. She is tolerating IV Lasix and tolerated metolazone with good urine output. She still has lower extremity swelling but has shown significant improvement since admission. She denies any chest pain chest pressure shortness of breath. Will transition her to p.o. diuretics today in order to bring her closer to the discharge readiness 05/28 Patient denies having any chest pain, no shortness of breath at rest. Yesterday, IV Lasix was transitioned to oral Bumex and metolazone 2.5 mg, Farxiga 10 mg and Aldactone 25 mg were added. Patient has a negative fluid balance and documented weight loss. Patient continues to have some lower extremity edema and cellulitis. Blood pressure 138/54, heart rate 80, pulse ox 97% on room air. Telemetry is atrial fibrillation controlled rate. Repeat blood work reveals sodium 138, potassium 3.3, chloride 94, CO2 34, BUN 33 creatinine 1.01. Patient is followed by infectious disease for bilateral lower extremity cellulitis on clindamycin. 05/29 Blood pressure 107/54, heart rate 53, pulse ox 97% on room air. Yesterday, we resumed patient on IV Lasix at 40 mg every 12 hours. Patient has a negative fluid balance yesterday of 2749. She has documented weight loss of almost 4 kg. Patient feels that her breathing is improved. She has less lower extremity edema. She is anxious to go home today. Repeat blood work reveals sodium 141, potassium 3.4, BUN 30 creatinine 1.1. CO2 34 hemoglobin 12.5. Potassium replacement has been ordered 05/30 Patient has been continued on IV antibiotics for LE cellulitis. We have continued her on IV Lasix 40 mg every 12 hours. Blood pressure 122/61, heart rate 77, pulse ox 99% on room air. Weight is showing a decrease and she has a negative fluid balance. Patient noted to have less lower extremity edema. She denies any shortness of breath. Telemetry atrial fibrillation with controlled rate. PHYSICAL EXAM: VITAL SIGNS: Reviewed. GENERAL: Well-developed in no acute distress. HEENT: Head is normocephalic. Pupils are equal, round. Sclerae anicteric. Neck supple. No JVD or thyromegaly LUNGS: Respirations even and unlabored. Lungs essentially clear to auscultation bilaterally. HEART: Regular rate and rhythm. S1 and S2 heard. ABDOMEN: Soft. Nondistended. Nontender. EXTREMITIES: No clubbing or cyanosis. Peripheral pulses intact. 1- 2+ lower extremity edema. Bilateral lower extremities with evidence of cellulitis and chronic wounds. NEUROLOGIC: Awake and alert. Oriented x 3. ASSESSMENT: Shortness of breath Acute on chronic heart failure with preserved EF, 50-55% Bilateral lower extremity cellulitis with chronic wounds Permanent atrial fibrillation Nonischemic cardiomyopathy with improved EF, was 40%, now 50 to 55% in 11/2022 Intermediate coronary artery disease without previous stenting Chronic hypoxic respiratory failure on home O2 at night Hypertension Hyperlipidemia Diabetes Morbid obesity PLAN: No need to repeat echocardiogram as this was performed in 11/2022 Patient is cleared for discharge from cardiology Continue current cardiac medications Recommend resuming Bumex 1 mg twice daily at home Patient may follow-up in the office with Dr. George in 1 to 2 weeks. Nurse practitioner note has been reviewed, I agree with documented findings and plan of care. Patient was seen and examined. Objective - Vital Signs Vital signs: Vital Signs Temp 97.7 F 05/31/23 00:37 Pulse 77 05/31/23 00:37 Resp 16 05/31/23 00:37 BP 122/61 05/31/23 00:37 Pulse Ox 99 05/31/23 00:37 FiO2 Intake & Output 05/30/23 05/31/23 05/31/23 18:59 06:59 18:59 Intake Total 840 590 Output Total 1000 750 Balance -160 -160 Weight 133.4 kg Intake: Oral 840 590 Output: Urine 1000 750 Other: Voiding Method Bedside Commode # Voids 2 # Bowel Movements 1 - Labs CBC & Chem 7: 05/30/23 06:23 05/30/23 06:23 Labs: Abnormal Lab Results - Last 24 Hours (Table) 05/30/23 05/30/23 05/30/23 Range/Units 06:23 06:23 11:37 MCHC 29.7 L (32.0-37.0) g/dL RDW 17.7 H (11.5-14.5) % Potassium 3.4 L (3.5-5.5) mmol/L Chloride 91 L (96-109) mmol/L Carbon Dioxide 34.5 H (21.6-31.8) mmol/L Anion Gap 15.50 H (4.00-12.00) mmol/L BUN 30.3 H (9.0-27.0) mg/dL Est GFR (CKD-EPI) 50 L (>=60) BUN/Creatinine Ratio 27.55 H (12.00-20.00) Ratio Glucose 169 H (70-110) mg/dL POC Glucose (mg/dL) 128 H (70-110) mg/dL 05/30/23 05/30/23 05/31/23 Range/Units 17:14 21:11 06:31 MCHC (32.0-37.0) g/dL RDW (11.5-14.5) % Potassium (3.5-5.5) mmol/L Chloride (96-109) mmol/L Carbon Dioxide (21.6-31.8) mmol/L Anion Gap (4.00-12.00) mmol/L BUN (9.0-27.0) mg/dL Est GFR (CKD-EPI) (>=60) BUN/Creatinine Ratio (12.00-20.00) Ratio Glucose (70-110) mg/dL POC Glucose (mg/dL) 218 H 224 H 165 H (70-110) mg/dL
[2023-05-31 11:17] VITALS: BMI 36.7
[2023-05-31 11:29] LABS: BUN/Creat Ratio 28.91 Ratio (12.00-20.00); Blood Urea Nitrogen 31.8 mg/dL (9.0-27.0); Calcium 9.4 mg/dL (8.7-10.3); Carbon Dioxide 33.1 mmol/L (21.6-31.8); Chloride 94 mmol/L (96-109); Glucose 165 mg/dL (70-110); Potassium 3.4 mmol/L (3.5-5.5); Sodium 140 mmol/L (135-145)
[2023-05-31 12:14] LABS: Glucose,Whole Blood 241 mg/dL (70-110)
--- NOTE | 2023-05-31 17:42 | P.PN ---
Subjective Progress Note Date: 05/31/23 Principal diagnosis: Reason for follow-up is bilateral lower extremity cellulitis Patient is a 82-year-old female with a past medical history significant for atrial fibrillation diabetes mellitus hypertension hyperlipidemia coronary artery disease patient presenting to the hospital for evaluation of significant weight gain and also noticed to have increasing swelling to lower extremity with associated redness, patient be diagnosed with the fluid overload and evidence of lower extremity cellulitis. On today's evaluation that is 05/31/2023, patient has been afebrile, patient is breathing comfortably and is currently on room air, patient denies having any significant cough no chest pain shortness of breath, patient denies nausea vomiting or diarrhea and no abdominal pain pain and swelling to the lower extremity has decreased in intensity. Patient did have a creatinine 1.1 Objective - Vital Signs Vital signs: Vital Signs Temp 97.4 F L 05/31/23 07:49 Pulse 69 05/31/23 07:49 Resp 18 05/31/23 07:49 BP 128/70 05/31/23 07:49 Pulse Ox 99 05/31/23 07:49 FiO2 Intake & Output 05/30/23 05/31/23 05/31/23 18:59 06:59 18:59 Intake Total 840 590 120 Output Total 1000 750 Balance -160 -160 120 Weight 133.4 kg 133.4 kg Intake: Oral 840 590 120 Output: Urine 1000 750 Other: Voiding Method Bedside Commode # Voids 2 # Bowel Movements 1 - Exam GENERAL DESCRIPTION: An elderly female up in chair in no distress EXTREMITIES: Bilateral legs swelling and redness has decreased no drainage - Labs CBC & Chem 7: 05/30/23 06:23 05/31/23 05:50 Labs: Abnormal Lab Results - Last 24 Hours (Table) 05/30/23 05/30/23 05/30/23 Range/Units 11:37 17:14 21:11 Potassium (3.5-5.5) mmol/L Chloride (96-109) mmol/L Carbon Dioxide (21.6-31.8) mmol/L Anion Gap (4.00-12.00) mmol/L BUN (9.0-27.0) mg/dL Est GFR (CKD-EPI) (>=60) BUN/Creatinine Ratio (12.00-20.00) Ratio Glucose (70-110) mg/dL POC Glucose (mg/dL) 128 H 218 H 224 H (70-110) mg/dL 05/31/23 05/31/23 Range/Units 05:50 06:31 Potassium 3.4 L (3.5-5.5) mmol/L Chloride 94 L (96-109) mmol/L Carbon Dioxide 33.1 H (21.6-31.8) mmol/L Anion Gap 12.90 H (4.00-12.00) mmol/L BUN 31.8 H (9.0-27.0) mg/dL Est GFR (CKD-EPI) 50 L (>=60) BUN/Creatinine Ratio 28.91 H (12.00-20.00) Ratio Glucose 165 H (70-110) mg/dL POC Glucose (mg/dL) 165 H (70-110) mg/dL Assessment and Plan (1) Allergy to cephalosporin Status: Acute Code(s): Z88.1 - ALLERGY STATUS TO OTHER ANTIBIOTIC AGENTS SNOMED Code(s): 433713339 (2) Bilateral lower leg cellulitis Status: Acute Code(s): L03.116 - CELLULITIS OF LEFT LOWER LIMB; L03.115 - CELLULITIS OF RIGHT LOWER LIMB SNOMED Code(s): 792181687 Plan: 1patient with bilateral lower extremity cellulitis in this patient with diffuse swelling and redness and evidence of fluid overload likely streptococcal disease clinically doubt gram-negative or MRSA infection 2-patient with a cephalexin and sulfa allergy that will limit the number of antibiotics safe to use, however the patient mention she has taken some Afterwards and did okay 3-patient did have improvement of bilateral extremity cellulitis she will be able to finish therapy with oral Keflex x 7 to 10 days discussed with [employer] for admitting team working on discharge Dictation was produced using [employer] software. please excuse any grammatical, word or spelling errors.
== END 2023-05-31 12:52 | disposition home health service (06) | DRG 291 ==
LOC: EC 13:28 → 6NMEDSUR 17:22 → OBSVTOIN 05-26 12:16
PROVIDERS: ADMIT Family Medicine; ATTEND Family Medicine
DX: I11.0 Hypertensive heart disease with heart failure (principal); I50.33 Acute on chronic diastolic (congestive) heart failure; L03.115 Cellulitis of right lower limb; I48.21 Permanent atrial fibrillation; L97.919 Non-pressure chronic ulcer of unspecified part of right lower leg with unspecified severity; L97.929 Non-pressure chronic ulcer of unspecified part of left lower leg with unspecified severity; J96.11 Chronic respiratory failure with hypoxia; I48.92 Unspecified atrial flutter; L03.116 Cellulitis of left lower limb; I42.8 Other cardiomyopathies; E66.01 Morbid (severe) obesity due to excess calories; Z68.36 Body mass index [BMI] 36.0-36.9, adult; E03.9 Hypothyroidism, unspecified; E78.5 Hyperlipidemia, unspecified; I25.10 Atherosclerotic heart disease of native coronary artery without angina pectoris; M48.00 Spinal stenosis, site unspecified; M19.90 Unspecified osteoarthritis, unspecified site; M06.9 Rheumatoid arthritis, unspecified; M35.00 Sjogren syndrome, unspecified; Z99.81 Dependence on supplemental oxygen; Z79.01 Long term (current) use of anticoagulants; Z79.4 Long term (current) use of insulin; Z79.84 Long term (current) use of oral hypoglycemic drugs; Z79.890 Hormone replacement therapy; Z79.899 Other long term (current) drug therapy; Z85.820 Personal history of malignant melanoma of skin; Z86.14 Personal history of Methicillin resistant Staphylococcus aureus infection; Z87.891 Personal history of nicotine dependence; Z88.1 Allergy status to other antibiotic agents; Z91.81 History of falling; Z88.2 Allergy status to sulfonamides; Z96.642 Presence of left artificial hip joint; Z87.01 Personal history of pneumonia (recurrent)
CPT/HCPCS: 36415; 71046; 80048; 80053; 83036; 83735; 83880; 84484; 85025; 85610; 85730; 93005; 94640; 94760; 96374; 96375; 99285

== ENCOUNTER 2023-06-05 07:47 | Emergency (ER) | payer BC, MEDICARE ==
[2023-06-05 08:03] VITALS: TEMP 97.5
[2023-06-05] MEDS: SODIUM CHLORIDE 0.9% 500 ML 500 ML IV STA (08:40)
--- NOTE | 2023-06-05 08:42 | ED ---
Fall HPI - General Chief Complaint: Fall Stated Complaint: Fall, weakness Time Seen by Provider: 06/05/23 07:52 Source: EMS, RN notes reviewed, old records reviewed Mode of arrival: EMS Limitations: no limitations - History of Present Illness Initial Comments: This is a 82-year-old female who states she was getting out of bed today, she was sitting in the edge of her bed fell to the ground landing on her but did not hit her head. Patient was brought in by EMS and she was unable unable to get off the ground at home. Patient has multiple ER visits and inpatient hospitalizations as of recent but states she is feeling incredibly improved from those visits. She otherwise has no current complaints feels well and prefers discharge home MD Complaint: fall -: hour(s) Fall From: standing Fall Witnessed: yes, by family Place Fall Occurred: home Loss of Consciousness: none Prolonged Down Time?: no Symptoms Prior to Fall: none Severity: mild, severe Severity scale (1-10): 2 Context: tripped/slipped Associated Symptoms: denies - Related Data Home Medications Medication Instructions Recorded Confirmed Latanoprost [Xalatan 0.005%] 1 drop BOTH EYES HS 08/11/17 06/10/23 predniSONE 10 mg PO DAILY 07/23/21 06/10/23 Magnesium Oxide 400 mg PO DAILY 08/30/21 06/10/23 Calcium Citrate/Vitamin D3 1 tab PO BID@0900,1700 11/16/21 06/10/23 [Citracal + D Maximum Caplet] Digoxin [Lanoxin] 125 mcg PO Q48H 11/16/21 06/10/23 Nitroglycerin Sl Tabs [Nitrostat] 0.4 mg SL Q5M PRN 11/16/21 06/10/23 Adalimumab [Humira(Cf) Pen] 40 mg SQ Q14D 01/09/22 06/10/23 Apixaban [Eliquis] 5 mg PO BID@0900,1700 05/02/22 06/10/23 INSULIN LISPRO (HumaLOG) [humaLOG] 6 units SQ AC-TID 05/02/22 06/10/23 INSULIN LISPRO (HumaLOG) [humaLOG] See Protocol SQ AC-TID PRN 05/02/22 06/10/23 Multivit-Min/FA/Lycopen/Lutein 1 tab PO DAILY 05/02/22 06/10/23 [Centrum Silver Tablet] Insulin Glargine [Lantus Vial] 30 unit SQ DAILY 05/17/22 06/10/23 SILVER sulfADIAZINE Cream 1 applic TOPICAL BID PRN 06/28/22 06/10/23 [Silvadene 1% Cream] Tamsulosin [Flomax] 0.4 mg PO DAILY@1200 06/28/22 06/10/23 Bumetanide [BUMEX] 1 mg PO BID@0900,1700 09/02/22 06/10/23 Levothyroxine Sodium [Synthroid] 150 mcg PO HS@0000 09/02/22 06/10/23 traZODone HCL [Desyrel] 50 mg PO HS 12/15/22 06/10/23 Acetaminophen Tab [Tylenol] 325 mg PO QID PRN 05/15/23 06/10/23 Clotrimazole Cream [Lotrimin Cream] 1 applic TOPICAL BID PRN 05/15/23 06/10/23 Gabapentin [Neurontin] 400 mg PO Q6H 05/15/23 06/10/23 Insulin Glargine [Lantus Vial] 15 unit SQ HS 05/15/23 06/10/23 Tolterodine ER [Detrol LA] 4 mg PO DAILY 05/15/23 06/10/23 methocarbamoL [Robaxin-750] 750 mg PO Q6H PRN 05/15/23 06/10/23 oxyCODONE-APAP 7.5-325MG [Percocet 1 tab PO QID 05/15/23 06/10/23 7.5-325 mg] metFORMIN HCL [Glucophage] 500 mg PO HS 05/25/23 06/10/23 Previous Rx's Medication Instructions Recorded Loratadine [Claritin] 10 mg PO DAILY #30 tab 05/20/22 Potassium Chloride ER [K-Dur 20] 20 meq PO BID #60 tab 05/30/23 Allergies Allergy/AdvReac Type Severity Reaction Status Date / Time adhesive Allergy Rash/Hives Verified 06/10/23 14:49 cephalexin [From Keflex] Allergy Rash/Hives Verified 06/10/23 14:49 grass pollen Allergy Unknown Verified 06/10/23 14:49 mold Allergy Unknown Verified 06/10/23 14:49 Sulfa (Sulfonamide Allergy Rash/Hives Verified 06/10/23 14:49 Antibiotics) newspaper ink Allergy Mild Unknown Uncoded 06/10/23 14:49 Review of Systems ROS Statement: Those systems with pertinent positive or pertinent negative responses have been documented in the HPI. ROS Other: All systems not noted in ROS Statement are negative. Past Medical History Past Medical History: Atrial Fibrillation, Coronary Artery Disease (CAD), Cancer, Diabetes Mellitus, Hyperlipidemia, Hypertension, Musculoskeletal Disorder, Neurologic Disorder, Osteoarthritis (OA), Pneumonia, Renal Disease, Rheumatoid Arthritis (RA), Skin Disorder, Thyroid Disorder Additional Past Medical History / Comment(s): Morbid obesity, chronic atrial fibrillation, diabetes mellitus type 2, hypertension, hyperlipidemia, spinal stenosis, osteoarthritis, hypothyroidism, hypertension, history of skin melanoma, history of bursitis with MRSA post I&D, rheumatoid arthritis, Sjogren's disease, 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 without any indication of ILD related to RA, Fall on July 22 transfer to [facility] for MRI, then Fall on 11/16/21 History of Any Multi-Drug Resistant Organisms: MRSA Date of last positivie culture/infection: 09/02/22 MDRO Source:: Right Leg Past Surgical History: Back Surgery, Breast Surgery, Cholecystectomy, Heart Catheterization, Joint Replacement, Orthopedic Surgery Additional Past Surgical History / Comment(s): Bilateral cataracts with lens implants, arthroscopies to lt wrist, gualberto knees, gualberto ankles, gualberto hips, lt hip replacment and redone, L/R shoulder sxs, rt breast bx-benign, egd/colonoscopy, skin cancer removal L arm, Lumbar fixnation possible broken Past Anesthesia/Blood Transfusion Reactions: No Reported Reaction Additional Past Anesthesia/Blood Transfusion Reaction / Comment(s): Pt has been told not to have anesthesia metabolized by the kidneys and has neurologic Sjogren's with post anesthesia paralysis. Past Psychological History: No Psychological Hx Reported Smoking Status: Former smoker Past Alcohol Use History: None Reported Past Drug Use History: None Reported - Past Family History Mother Family Medical History: CVA/TIA Additional Family Medical History / Comment(s): RUPTURED BOWEL Father Family Medical History: Cancer, Pneumonia Additional Family Medical History / Comment(s): ASPIRATIVE PNA Sister(s) Additional Family Medical History / Comment(s): at age 34 with lupus General Exam Limitations: physical limitation General appearance: alert, in no apparent distress Head exam: Present: atraumatic, normocephalic, normal inspection Eye exam: Present: normal appearance, PERRL, EOMI. Absent: scleral icterus, conjunctival injection, periorbital swelling ENT exam: Present: normal exam, mucous membranes moist Neck exam: Present: normal inspection. Absent: tenderness, meningismus, lymphadenopathy Respiratory exam: Present: normal lung sounds bilaterally. Absent: respiratory distress, wheezes, rales, rhonchi, stridor Cardiovascular Exam: Present: regular rate, normal rhythm, normal heart sounds. Absent: systolic murmur, diastolic murmur, rubs, gallop, clicks GI/Abdominal exam: Present: soft, normal bowel sounds. Absent: distended, tenderness, guarding, rebound, rigid Extremities exam: Present: normal inspection, full ROM, normal capillary refill. Absent: tenderness, pedal edema, joint swelling, calf tenderness Back exam: Present: normal inspection Neurological exam: Present: alert, oriented X3, CN II-XII intact Psychiatric exam: Present: normal affect, normal mood Skin exam: Present: warm, dry, intact, normal color. Absent: rash Course Vital Signs 06/05/23 06/05/23 07:48 10:55 Temperature 97.5 F L Pulse Rate 69 72 Respiratory 16 18 Rate Blood Pressure 117/69 124/51 O2 Sat by Pulse 96 98 Oximetry - Reevaluation(s) Reevaluation #1: 06/05/23 08:58 Records reviewed Reevaluation #2: 06/05/23 08:58 Patient remains without complaint Reevaluation #3: 06/05/23 08:58 Patient informed of results and questions answered Reevaluation #4: Was pt. sent in by a medical professional or institution (, PA, STAMP PAD FINISHER, urgent care, hospital, or correction...) When possible be specific @ -no Did you speak to anyone other than the patient for history (EMS, parent, family, police, friend...)? What history was obtained from this source @ -no Did you review nursing and triage notes (agree or disagree)? Why? @ -agree Are old charts reviewed (outside hosp., previous admission, EMS record, old EKG, old radiological studies, urgent care reports/EKG's, correction records)? Report findings @ -yes Differential Diagnosis (chest pain, altered mental status, abdominal pain women, abdominal pain men, vaginal bleeding, weakness, fever, dyspnea, syncope, headach e, dizziness, GI bleed, back pain, seizure, CVA, palpatations, mental health, musculoskeletal)? @ -prior EKG interpreted by me (3pts min.). @ -yes X-rays interpreted by me (1pt min.). @ -no CT interpreted by me (1pt min.). @ -no U/S interpreted by me (1pt. min.). @ -no What testing was considered but not performed or refused? (CT, X-rays, U/S, labs)? Why? @ -none What meds were considered but not given or refused? Why? @ -none Did you discuss the management of the patient with other professionals (professionals i.e. , PA, STAMP PAD FINISHER, lab, RT, psych nurse, social services coordinator, traditional chinese herbalist, teacher, electorate officer, piano case and bench assembler)? Give summary @ -no Was smoking cessation discussed for >3mins.? @ -no Was critical care preformed (if so, how long)? @ -no Were there social determinants of health that impacted care today? How? (Homelessness, low income, unemployed, alcoholism, drug addiction, transpo rtation, low edu. Level, literacy, decrease access to med. care, senior living, rehab)? @ -none Was there de-escalation of care discussed even if they declined (Discuss DNR or withdrawal of care, Hospice)? DNR status @ -no What co-morbidities impacted this encounter? (DM, HTN, Smoking, COPD, CAD, Cancer, CVA, ARF, Chemo, Hep., AIDS, mental health diagnosis, sleep apnea, morbid obesity)? @ -none Was patient admitted / discharged? Hospital course, mention meds given and route, prescriptions, significant lab abnormalities, going to OR and other pertinent info. @ - 82 female well-known to this emergency department today for fall. Patient has no acute traumatic injury from the fall and feels well. She will be discharged home Discharge Undiagnosed new problem with uncertain prognosis? @ -no Drug Therapy requiring intensive monitoring for toxicity (Heparin, Nitro, Insulin, Cardizem)? @ -no Were any procedures done? @ -no Diagnosis/symptom? @ -Fall Acute, or Chronic, or Acute on Chronic? @ -Acute Uncomplicated (without systemic symptoms) or Complicated (systemic symptoms)? @ -Complicated Side effects of treatment? @ -no Exacerbation, Progression, or Severe Exacerbation? @ -exacerbation Poses a threat to life or bodily function? How? (Chest pain, USA, IA, pneumonia, PE, COPD, DKA, ARF, appy, cholecystitis, CVA, Diverticulitis, Homicidal, Suicidal, threat to staff... and all critical care pts) @ -yes with extreme of age Reevaluation #5: Differential Weakness: Hypoglycemia, shock, sepsis, hyponatremia, anemia, infection, IA, ETOH, adverse medicine reaction, overdose, stroke, this is not meant to be an all-inclusive list. Medical Decision Making - Medical Decision Making 82 female well-known to this emergency department today for fall. Patient has no acute traumatic injury from the fall and feels well. She will be discharged home - Lab Data Result diagrams: 06/05/23 08:41 06/05/23 09:41 Lab Results 06/05/23 06/05/23 Range/Units 08:41 09:41 WBC 8.1 (3.8-10.6) k/uL RBC 4.56 (3.80-5.40) m/uL Hgb 13.0 (11.4-16.0) gm/dL Hct 42.1 (34.0-46.0) % MCV 92.3 (80.0-100.0) fL MCH 28.4 (25.0-35.0) pg MCHC 30.8 L (31.0-37.0) g/dL RDW 16.4 H (11.5-15.5) % Plt Count 181 (150-450) k/uL MPV 9.6 Neutrophils % 50 % Lymphocytes % 37 % Monocytes % 7 % Eosinophils % 3 % Basophils % 1 % Neutrophils # 4.1 (1.3-7.7) k/uL Lymphocytes # 3.0 (1.0-4.8) k/uL Monocytes # 0.5 (0-1.0) k/uL Eosinophils # 0.3 (0-0.7) k/uL Basophils # 0.1 (0-0.2) k/uL Manual Slide Review Performed Hypochromasia Moderate Anisocytosis Slight Sodium 137 (137-145) mmol/L Potassium 4.3 (3.5-5.1) mmol/L Chloride 100 (98-107) mmol/L Carbon Dioxide 30 (22-30) mmol/L Anion Gap 7 mmol/L BUN 31 H (7-17) mg/dL Creatinine 0.74 (0.52-1.04) mg/dL Est GFR (CKD-EPI)AfAm 89 (>60 ml/min/1.73 sqM) Est GFR (CKD-EPI)NonAf 77 (>60 ml/min/1.73 sqM) Glucose 132 H (74-99) mg/dL Calcium 9.0 (8.4-10.2) mg/dL Phosphorus 3.5 (2.5-4.5) mg/dL Magnesium 1.9 (1.6-2.3) mg/dL Total Bilirubin 0.8 (0.2-1.3) mg/dL AST 36 (14-36) U/L ALT 16 (4-34) U/L Alkaline Phosphatase 74 (38-126) U/L NT-Pro-B Natriuret Pep 1060 pg/mL Total Protein 7.5 (6.3-8.2) g/dL Albumin 3.8 (3.5-5.0) g/dL - EKG Data -: EKG Interpreted by Me (EKG is A-fib 64 QRS 117 QTc 454) Disposition Clinical Impression: Weakness Disposition: HOME SELF-CARE Condition: Good Instructions (If sedation given, give patient instructions): Fall Prevention for Older Adults (ED) Is patient prescribed a controlled substance at d/c from ED?: No Referrals: Nicholas Hart MD [Primary Care Provider] - 1-2 days Time of Disposition: 10:30
[2023-06-05 08:55] LABS: Anisocytosis Slight; Basophils # (A) 0.1 k/uL (0-0.2); Basophils % (A) 1 %; Eosinophils # (A) 0.3 k/uL (0-0.7); Eosinophils % (A) 3 %; HCT 42.1 % (34.0-46.0); Hypochromasia Moderate; Lymphocytes % (A) 37 %; MCH 28.4 pg (25.0-35.0); MCHC 30.8 g/dL (31.0-37.0); MCV 92.3 fL (80.0-100.0); Mean Platelet Volume 9.6; Monocytes # (A) 0.5 k/uL (0-1.0); Monocytes % (A) 7 %; Neutrophils # (A) 4.1 k/uL (1.3-7.7); Neutrophils % (A) 50 %; Platelet Count 181 k/uL (150-450); RBC 4.56 m/uL (3.80-5.40); RDW 16.4 % (11.5-15.5); WBC 8.1 k/uL (3.8-10.6)
[2023-06-05 10:01] LABS: ALT 16 U/L (4-34); AST 36 U/L (14-36); African American GFR (CKD) 89 (>60 ml/min/1.73 sqM); Albumin 3.8 g/dL (3.5-5.0); Alkaline Phosphatase 74 U/L (38-126); Anion Gap 7 mmol/L; Blood Urea Nitrogen 31 mg/dL (7-17); Carbon Dioxide 30 mmol/L (22-30); Chloride 100 mmol/L (98-107); Glucose 132 mg/dL (74-99); Magnesium 1.9 mg/dL (1.6-2.3); Non-African American GFR(CKD) 77 (>60 ml/min/1.73 sqM); Phosphorus 3.5 mg/dL (2.5-4.5); Sodium 137 mmol/L (137-145); Total Bilirubin 0.8 mg/dL (0.2-1.3); Total Protein 7.5 g/dL (6.3-8.2)
[2023-06-05 10:04] LABS: Potassium 4.3 mmol/L (3.5-5.1)
[2023-06-05 10:09] LABS: NT-Pro-B-Type Natriuretic Pept 1060 pg/mL
[2023-06-05 11:37] VITALS: BP 124/51; PULSE 72; RESP 18
== END 2023-06-05 10:57 | disposition home or self-care (01) ==
LOC: EC 07:47
DX: R53.1 Weakness (principal); Z88.2 Allergy status to sulfonamides; Z88.1 Allergy status to other antibiotic agents; Z88.8 Allergy status to other drugs, medicaments and biological substances; Z91.048 Other nonmedicinal substance allergy status; Z87.891 Personal history of nicotine dependence; Z90.49 Acquired absence of other specified parts of digestive tract; W06.XXXA Fall from bed, initial encounter
CPT/HCPCS: 36415; 80053; 83735; 83880; 84100; 85025; 93005; 96360; 99285

== ENCOUNTER 2023-06-10 04:32 | Observation (INO) | payer MEDICARE ==
--- NOTE | 2023-06-10 05:08 | ED ---
General Adult HPI - General Source: patient, RN notes reviewed, old records reviewed Mode of arrival: EMS <NinaPerfecto Mckenzie - Last Filed: 06/10/23 06:28> <SteinbergKeon - Last Filed: 06/10/23 09:55> - General Chief complaint: Back Pain/Injury Stated complaint: back pain Time Seen by Provider: 06/10/23 04:37 - History of Present Illness Initial comments: 82-year-old female presenting with low back pain. Patient states the pain has worsened over the past several days. She does admit to a fall prior to this but states she did not injure her back that she knows of at that time. She had remote history of back surgery. She denies fever she. She denies dysuria or hematuria. She states she ambulates with a walker at baseline but the pain has been limiting her ability to ambulate. No chest or abdominal pain. (Perfecto Barnes) - Related Data Home Medications Medication Instructions Recorded Confirmed Latanoprost [Xalatan 0.005%] 1 drop BOTH EYES HS 08/11/17 05/25/23 predniSONE 10 mg PO DAILY 07/23/21 05/25/23 Magnesium Oxide 400 mg PO DAILY 08/30/21 05/25/23 Calcium Citrate/Vitamin D3 1 tab PO BID@0900,1700 11/16/21 05/25/23 [Citracal + D Maximum Caplet] Digoxin [Lanoxin] 125 mcg PO Q48H 11/16/21 05/25/23 Nitroglycerin Sl Tabs [Nitrostat] 0.4 mg SL Q5M PRN 11/16/21 05/25/23 Adalimumab [Humira(Cf) Pen] 40 mg SQ Q14D 01/09/22 05/25/23 Apixaban [Eliquis] 5 mg PO BID@0900,1700 05/02/22 05/25/23 INSULIN LISPRO (HumaLOG) [humaLOG] 6 units SQ AC-TID 05/02/22 05/25/23 INSULIN LISPRO (HumaLOG) [humaLOG] See Protocol SQ AC-TID PRN 05/02/22 05/25/23 Multivit-Min/FA/Lycopen/Lutein 1 tab PO DAILY 05/02/22 05/25/23 [Centrum Silver Tablet] Insulin Glargine [Lantus Vial] 30 unit SQ DAILY 05/17/22 05/25/23 SILVER sulfADIAZINE Cream 1 applic TOPICAL BID PRN 06/28/22 05/25/23 [Silvadene 1% Cream] Tamsulosin [Flomax] 0.4 mg PO DAILY@1200 06/28/22 05/25/23 Bumetanide [BUMEX] 1 mg PO BID@0900,1700 09/02/22 05/25/23 Levothyroxine Sodium [Synthroid] 150 mcg PO HS@0000 09/02/22 05/25/23 traZODone HCL [Desyrel] 50 mg PO HS 12/15/22 05/25/23 Acetaminophen Tab [Tylenol] 325 mg PO QID PRN 05/15/23 05/25/23 Clotrimazole Cream [Lotrimin Cream] 1 applic TOPICAL BID PRN 05/15/23 05/25/23 Gabapentin [Neurontin] 400 mg PO Q6H 05/15/23 05/25/23 Insulin Glargine [Lantus Vial] 15 unit SQ HS 05/15/23 05/25/23 Tolterodine ER [Detrol LA] 4 mg PO DAILY 05/15/23 05/25/23 methocarbamoL [Robaxin-750] 750 mg PO Q6H PRN 05/15/23 05/25/23 oxyCODONE-APAP 7.5-325MG [Percocet 1 tab PO QID 05/15/23 05/25/23 7.5-325 mg] metFORMIN HCL [Glucophage] 500 mg PO HS 05/25/23 05/25/23 Previous Rx's Medication Instructions Recorded Loratadine [Claritin] 10 mg PO DAILY #30 tab 05/20/22 Nystatin 100,000 Unit/ml Susp 500,000 unit PO QID 7 Days #150 ml 05/30/23 [Mycostatin Oral Susp] Potassium Chloride ER [K-Dur 20] 20 meq PO BID #60 tab 05/30/23 Cephalexin [Keflex] 500 mg PO Q6HR 10 Days #40 cap 05/31/23 Allergies Allergy/AdvReac Type Severity Reaction Status Date / Time adhesive Allergy Rash/Hives Verified 06/05/23 08:07 cephalexin [From Keflex] Allergy Rash/Hives Verified 06/05/23 08:07 grass pollen Allergy Unknown Verified 06/05/23 08:07 mold Allergy Unknown Verified 06/05/23 08:07 Sulfa (Sulfonamide Allergy Rash/Hives Verified 06/05/23 08:07 Antibiotics) newspaper ink Allergy Mild Unknown Uncoded 06/05/23 08:07 Review of Systems ROS Other: All systems not noted in ROS Statement are negative. <Perfecto Wood - Last Filed: 06/10/23 06:28> ROS Other: All systems not noted in ROS Statement are negative. <Keon Steinberg - Last Filed: 06/10/23 09:55> ROS Statement: Those systems with pertinent positive or pertinent negative responses have been documented in the HPI. Past Medical History Past Medical History: Atrial Fibrillation, Coronary Artery Disease (CAD), Cancer, Diabetes Mellitus, Hyperlipidemia, Hypertension, Musculoskeletal Diso rder, Neurologic Disorder, Osteoarthritis (OA), Pneumonia, Renal Disease, Rheumatoid Arthritis (RA), Skin Disorder, Thyroid Disorder Additional Past Medical History / Comment(s): Morbid obesity, chronic atrial fibrillation, diabetes mellitus type 2, hypertension, hyperlipidemia, spinal stenosis, osteoarthritis, hypothyroidism, hypertension, history of skin melanoma, history of bursitis with MRSA post I&D, rheumatoid arthritis, Sjogren's disease, 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 without any indication of ILD related to RA, Fall on July 22 transfer to [facility] for MRI, then Fall on 11/16/21 History of Any Multi-Drug Resistant Organisms: MRSA Date of last positivie culture/infection: 09/02/22 MDRO Source:: Right Leg Past Surgical History: Back Surgery, Breast Surgery, Cholecystectomy, Heart Catheterization, Joint Replacement, Orthopedic Surgery Additional Past Surgical History / Comment(s): Bilateral cataracts with lens implants, arthroscopies to lt wrist, gualberto knees, gualberto ankles, gualberto hips, lt hip replacment and redone, L/R shoulder sxs, rt breast bx-benign, egd/colonoscopy, skin cancer removal L arm, Lumbar fixnation possible broken Past Anesthesia/Blood Transfusion Reactions: No Reported Reaction Additional Past Anesthesia/Blood Transfusion Reaction / Comment(s): Pt has been told not to have anesthesia metabolized by the kidneys and has neurologic Sjogren's with post anesthesia paralysis. Past Psychological History: No Psychological Hx Reported Smoking Status: Former smoker Past Alcohol Use History: None Reported Past Drug Use History: None Reported - Past Family History Mother Family Medical History: CVA/TIA Additional Family Medical History / Comment(s): RUPTURED BOWEL Father Family Medical History: Cancer, Pneumonia Additional Family Medical History / Comment(s): ASPIRATIVE PNA Sister(s) Additional Family Medical History / Comment(s): at age 34 with lupus <Perfecto Wood - Last Filed: 06/10/23 06:28> General Exam General appearance: alert, in no apparent distress Head exam: Present: atraumatic, normocephalic Eye exam: Present: normal appearance, PERRL ENT exam: Present: normal exam Neck exam: Present: normal inspection. Absent: tenderness, meningismus Respiratory exam: Present: normal lung sounds bilaterally. Absent: respiratory distress, wheezes Cardiovascular Exam: Present: regular rate, normal rhythm GI/Abdominal exam: Present: soft. Absent: distended, tenderness Extremities exam: Present: pedal edema (Bilateral erythema) Back exam: Present: paraspinal tenderness (Lumbar sacral), vertebral tenderness Neurological exam: Present: alert Psychiatric exam: Present: normal affect, normal mood Skin exam: Present: warm, dry <Perfecto Wood - Last Filed: 06/10/23 06:28> Course Vital Signs 06/10/23 06/10/23 04:34 09:21 Temperature 97.6 F Pulse Rate 93 76 Respiratory 18 18 Rate Blood Pressure 108/61 133/76 O2 Sat by Pulse 98 97 Oximetry Medical Decision Making - Lab Data Result diagrams: 06/10/23 05:38 06/10/23 05:38 <Perfecto Wood - Last Filed: 06/10/23 06:28> - Lab Data Result diagrams: 06/10/23 05:38 06/10/23 05:38 <Keon Steinberg - Last Filed: 06/10/23 09:55> - Medical Decision Making Was pt. sent in by a medical professional or institution (, PA, AGRICULTURAL EXTENSION SPECIALIST, urgent care, hospital, or snf...) When possible be specific @ -No Did you speak to anyone other than the patient for history (EMS, parent, family, police, friend...)? What history was obtained from this source @ -No Did you review nursing and triage notes (agree or disagree)? Why? @ -I reviewed and agree with nursing and triage notes Were old charts reviewed (outside hosp., previous admission, EMS record, old EKG, old radiological studies, urgent care reports/EKG's, snf records)? Report findings @ -No old charts were reviewed Differential Diagnosis differential Musculoskeletal Muscular strain, contusion, ligament sprain, fracture, arthritis, septic arthritis, bursitis, cellulitis, muscle spasm, nerve compression, DVT, arterial occlusion, herpes zoster, electrolyte abnormality, tumor.... This is not meant to be in all inclusive list EKG interpreted by me (3pts min.). @ -As above X-rays interpreted by me (1pt min.). @ -None done CT interpreted by me (1pt min.). @CT lumbar spine ordered. U/S interpreted by me (1pt. min.). @ -None done What testing was considered but not performed or refused? (CT, X-rays, U/S, labs)? Why? @ -None What meds were considered but not given or refused? Why? @ -None Did you discuss the management of the patient with other professionals (nuvia aaron i.eAlejandra Rivera, PA, AGRICULTURAL EXTENSION SPECIALIST, lab, RT, psych nurse, social media content manager, silo worker, teacher, transport corps officer, leather case finisher)? Give summary @ -No Was smoking cessation discussed for >3mins.? @ -No Was critical care preformed (if so, how long)? @ -No Were there social determinants of health that impacted care today? How? (Homelessness, low income, unemployed, alcoholism, drug addiction, transportation, low edu. Level, literacy, decrease access to med. care, residential, rehab)? @ -No Was there de-escalation of care discussed even if they declined (Discuss DNR or withdrawal of care, Hospice)? DNR status @ -No What co-morbidities impacted this encounter? (DM, HTN, Smoking, COPD, CAD, Cancer, CVA, ARF, Chemo, Hep., AIDS, mental health diagnosis, sleep apnea, morbid obesity)? @ -None Was patient admitted / discharged? Hospital course, mention meds given and route, prescriptions, significant lab abnormalities, going to OR and other pertinent info. @ -82-year-old female with low back pain, difficulty ambulating. Workup is pending including CBC, CMP, urinalysis and CT lumbar spine. Patient care signed out at shift change awaiting testing results and reevaluation. (Perfecto Wood) Was patient admitted / discharged? Hospital course, mention meds given and route, prescriptions, significant lab abnormalities, going to OR and other pertinent info. @ -Patient was signed out to me by Dr. Peck and patient had a lumbar spine CT which showed no acute abnormality. Patient continued have significant back pain. I spoke with Sheet will admit the patient Undiagnosed new problem with uncertain prognosis? @ -No Drug Therapy requiring intensive monitoring for toxicity (Heparin, Nitro, Insulin, Cardizem)? @ -No Were any procedures done? @ -No Diagnosis/symptom? @ -Intractable chronic back pain Acute, or Chronic, or Acute on Chronic? @ -Default Uncomplicated (without systemic symptoms) or Complicated (systemic symptoms)? @ -Default Side effects of treatment? @ -No Exacerbation, Progression, or Severe Exacerbation? @ -No Poses a threat to life or bodily function? How? (Chest pain, [place], [place], pneumonia, PE, COPD, DKA, ARF, appy, cholecystitis, CVA, Diverticulitis, Homicidal, Suicidal, threat to staff... and all critical care pts) @ -No (Keon Steinberg) - Lab Data Lab Results 06/10/23 06/10/23 06/10/23 Range/Units 05:38 05:38 05:38 WBC 9.1 (3.8-10.6) k/uL RBC 4.51 (3.80-5.40) m/uL Hgb 12.8 (11.4-16.0) gm/dL Hct 42.2 (34.0-46.0) % MCV 93.6 (80.0-100.0) fL MCH 28.4 (25.0-35.0) pg MCHC 30.3 L (31.0-37.0) g/dL RDW 16.3 H (11.5-15.5) % Plt Count 165 (150-450) k/uL MPV 8.5 Neutrophils % 57 % Lymphocytes % 28 % Monocytes % 7 % Eosinophils % 5 % Basophils % 1 % Neutrophils # 5.2 (1.3-7.7) k/uL Lymphocytes # 2.5 (1.0-4.8) k/uL Monocytes # 0.7 (0-1.0) k/uL Eosinophils # 0.4 (0-0.7) k/uL Basophils # 0.1 (0-0.2) k/uL Hypochromasia Moderate Anisocytosis Slight Sodium 141 (137-145) mmol/L Potassium 4.2 (3.5-5.1) mmol/L Chloride 101 (98-107) mmol/L Carbon Dioxide 30 (22-30) mmol/L Anion Gap 10 mmol/L BUN 26 H (7-17) mg/dL Creatinine 0.79 (0.52-1.04) mg/dL Est GFR (CKD-EPI)AfAm 82 (>60 ml/min/1.73 sqM) Est GFR (CKD-EPI)NonAf 71 (>60 ml/min/1.73 sqM) Glucose 151 H (74-99) mg/dL Calcium 9.8 (8.4-10.2) mg/dL Total Bilirubin 0.7 (0.2-1.3) mg/dL AST 34 (14-36) U/L ALT 19 (4-34) U/L Alkaline Phosphatase 94 (38-126) U/L Total Protein 8.2 (6.3-8.2) g/dL Albumin 4.1 (3.5-5.0) g/dL Urine Color Yellow Urine Appearance Clear (Clear) Urine pH 5.5 (5.0-8.0) Ur Specific [place] 1.027 (1.001-1.035) Urine Protein Trace H (Negative) Urine Glucose (UA) Negative (Negative) Urine Ketones Negative (Negative) Urine Blood Negative (Negative) Urine Nitrite Negative (Negative) Urine Bilirubin Negative (Negative) Urine Urobilinogen <2.0 (<2.0) mg/dL Ur Leukocyte Esterase Negative (Negative) Disposition <Perfecto Wood - Last Filed: 06/10/23 06:28> Time of Disposition: 09:55 <Keon Steinberg - Last Filed: 06/10/23 09:55> Clinical Impression: Intractable back pain Disposition: ADMITTED IP TO THIS HOSP Referrals: Nicholas Hart MD [Primary Care Provider] - 1-2 days
[2023-06-10 05:54] LABS: Anisocytosis Slight; Basophils # (A) 0.1 k/uL (0-0.2); Basophils % (A) 1 %; Eosinophils # (A) 0.4 k/uL (0-0.7); Eosinophils % (A) 5 %; HCT 42.2 % (34.0-46.0); HGB 12.8 gm/dL (11.4-16.0); Hypochromasia Moderate; Lymphocytes # (A) 2.5 k/uL (1.0-4.8); Lymphocytes % (A) 28 %; MCH 28.4 pg (25.0-35.0); MCHC 30.3 g/dL (31.0-37.0); MCV 93.6 fL (80.0-100.0); Mean Platelet Volume 8.5; Monocytes # (A) 0.7 k/uL (0-1.0); Monocytes % (A) 7 %; Neutrophils # (A) 5.2 k/uL (1.3-7.7); Neutrophils % (A) 57 %; Platelet Count 165 k/uL (150-450); RBC 4.51 m/uL (3.80-5.40); RDW 16.3 % (11.5-15.5); WBC 9.1 k/uL (3.8-10.6)
[2023-06-10 06:02] LABS: ALT 19 U/L (4-34); AST 34 U/L (14-36); African American GFR (CKD) 82 (>60 ml/min/1.73 sqM); Albumin 4.1 g/dL (3.5-5.0); Alkaline Phosphatase 94 U/L (38-126); Anion Gap 10 mmol/L; Blood Urea Nitrogen 26 mg/dL (7-17); Calcium 9.8 mg/dL (8.4-10.2); Carbon Dioxide 30 mmol/L (22-30); Chloride 101 mmol/L (98-107); Glucose 151 mg/dL (74-99); Non-African American GFR(CKD) 71 (>60 ml/min/1.73 sqM); Potassium 4.2 mmol/L (3.5-5.1); Sodium 141 mmol/L (137-145); Total Bilirubin 0.7 mg/dL (0.2-1.3); Total Protein 8.2 g/dL (6.3-8.2)
[2023-06-10] MEDS: KETOROLAC 15 MG/ML 1 ML VIAL IVP STA (06:08)
[2023-06-10] MEDS: HYDROmorphone 0.5 MG/0.5 ML SYRINGE IVP STA (06:42)
[2023-06-10 08:33] LABS: Appearance,Urine Clear (Clear); Bilirubin,Urine Negative (Negative); Blood,Urine Negative (Negative); Color,Urine Yellow; Glucose,Urine (UA) Negative (Negative); Ketones,Urine Negative (Negative); Leukocyte Esterase,Urine Negative (Negative); Nitrite,Urine Negative (Negative); PH, Urine 5.5 (5.0-8.0); Protein,Urine Trace (Negative); Specific Gravity,Urine 1.027 (1.001-1.035); Urobilinogen,Urine <2.0 mg/dL (<2.0)
--- NOTE | 2023-06-10 08:45 | CT ---
EXAMINATION TYPE: CT lumbar spine wo con CT DLP: 2269.4 mGycm, Automated exposure control for dose reduction was used. DATE OF EXAM: 06/10/2023 7:14 AM COMPARISON: MR lumbar spine 03/09/2023. CLINICAL INDICATION:Female, 82 years old with history of pain; [facility], TECHNIQUE: CT of the lumbar spine was performed without contrast. Multiplanar soft tissue and bone windows were obtained and reviewed. . Contrast used: None FINDINGS: Alignment: There are 5 lumbar type vertebral bodies with relatively normal heights and AP alignment. There is straightening of the normal lordosis. Bone: Generalized decrease in bone mineralization, could be related to osteoporosis. No destructive l esion is seen. There are bilateral pedicle screws and posterior fixation rods at L2, L3, L4, L5, S1. It is uncertain how well the superior most screw on the right, and inferior most screw on the left, a re connected to their respective posterior fixation rods. However the appearance is similar to lumbar spine radiographs 01/05/2023. There is no evidence of screw breakage or perihardware bony lucency. Mu ltilevel associated laminectomies. Multilevel degenerative disc disease is present, greatest at L4-L5 where the vertebral bodies appear essentially fused. Facet arthropathy is also present, most advanced at the L5-S1 level. Discs: T12-L1: No significant spinal canal or neural foraminal stenosis. L1-L2: Facet arthropathy causes narrowing of the right posterior lateral spinal canal and mild right foraminal stenosis. L2-L3: Mild canal and foraminal narrowing. L3-L4: Mild canal and foraminal narrowing. L4-L5: Mild canal and foraminal narrowing, greatest on the right. L5-S1: Moderate canal and bilateral neural foraminal narrowing. Other: Visualized upper sacrum and iliac bones appear intact. Mild degenerative change of the SI join ts with partial vacuum phenomenon. Included paraspinous soft tissues show mild scarring or atelectasis in the lung bases. Moderate to he dre calcification of the aorta and branches. There is ectasia of the infrarenal aorta up to 2.4 cm. H eavy calcification at the bifurcation and proximal right common iliac artery, potentially resulting i n high-grade stenosis. Pancreas appears fatty infiltrated. No mass of the visualized adrenals. Puncta te right renal calcification. IMPRESSION: 1. Generalized osseous demineralization, may be related to osteoporosis. 2. Multilevel posterior fusion changes from L2 to S1, as discussed. 3. No acute osseous abnormality demonstrated. 4. Multilevel lumbar spondylosis with various degrees of canal and foraminal narrowing, detailed abo ve. 5. Incidental soft tissue findings described above.
[2023-06-10] MEDS: KETOROLAC 15 MG/ML 1 ML VIAL IVP SCH (10:20)
[2023-06-10] MEDS: HYDROmorphone 0.5 MG/0.5 ML SYRINGE IVP PRN (10:27)
[2023-06-10] MEDS ORDERED: DEXTROSE 50% SYRINGE 50 ML IVP PRN ×2 (14:39)
[2023-06-10 14:57] LABS: Glucose,Whole Blood 242 mg/dL (70-110)
[2023-06-10 16:25] LABS: Glucose,Whole Blood 230 mg/dL (70-110)
[2023-06-10] MEDS: INSULIN ASPART (NovoLOG) 100 UNIT/ML VIAL SQ SCH (16:59)
[2023-06-10] MEDS ORDERED: NITROGLYCERIN SL TABS 0.4 MG TAB SUBLINGUAL PRN (20:33)
[2023-06-10] MEDS ORDERED: ACETAMINOPHEN TAB 325 MG TAB PO PRN (20:33)
[2023-06-10] MEDS ORDERED: CLOTRIMAZOLE 1% CREAM 30 GM TUBE TOPICAL PRN (20:33)
[2023-06-10 20:44] LABS: Glucose,Whole Blood 343 mg/dL (70-110)
[2023-06-10] MEDS: oxyCODONE-APAP 7.5-325MG 1 EACH TAB PO SCH (22:19)
[2023-06-10] MEDS: GABAPENTIN 400 MG CAP PO SCH (22:19)
[2023-06-10] MEDS: traZODone HCL 50 MG TAB PO SCH (22:19)
[2023-06-10] MEDS: INSULIN DETEMIR (LEVEMIR) 100 UNIT/ML SYR SQ SCH (22:20)
[2023-06-10] MEDS: LATANOPROST 0.005% OPHTH DROPS 2.5 ML BTL BOTH EYES SCH (22:20)
[2023-06-10] MEDS: methocarbamoL 750 MG TAB PO PRN (22:21)
[2023-06-10] MEDS: LEVOTHYROXINE 75 MCG TAB PO SCH (23:23)
--- NOTE | 2023-06-11 00:57 | P.HPIM ---
History of Present Illness H&P Date: 06/10/23 Chief Complaint: Back pain Patient is a 82-year-old female with a past medical history of coronary artery disease status post prior cardiac catheterization, atrial fibrillation on anticoagulation with Eliquis, hypertension, hyperlipidemia, osteoarthritis, rheumatoid arthritis and hypothyroidism, Sjogren's syndrome, prior history of smoking presents to ER with complaints of intractable back pain. Patient does have prior history of lumbar spine surgery. Denies any complaints of numbness or tingling in the legs. No bowel or bladder incontinence. Denied leg weakness. Patient has been having symptoms for the past few days. Patient states that she did have a fall prior to pain aggravation. Denies any hitting her head. Patient usually ambulates with a walker at baseline. And since the fall she has not been able to ambulate. Denies any chest pain or shortness of breath. No nausea vomiting abdominal pain or diarrhea. CT lumbar spine in the ER showed generalized osseous demineralization may be related to osteoporosis. Multilevel posterior fusion changes from L2-S1. No acute osseous abnormality demonstrated. Multilevel lumbar spondylosis with various degrees of canal and foraminal narrowing detailed. Incidental soft tissue findings described above. Paraspinal soft tissues show mild scarring or atelectasis in the lung bases. Moderate to heavy calcification of the aorta and branches. Heavy calcification of the bifurcation and proximal right common iliac artery potentially resulting in high-grade stenosis. Laboratory data showed WBC 9.1 hemoglobin 12.8 and platelets 165 Sodium 141 potassium 4.2 chloride 101 bicarb is 30 BUN 26 and creatinine 0.79 and blood sugar 151 Urinalysis is negative for infection. Liver enzymes are not elevated. Review of Systems Constitutional: Patient denies any fever or chills . Generalized weakness. No weight loss. Abdomen: Patient denied nausea vomiting and diarrhea and abdominal pain. Cardiovascular: Patient denies any chest pain or short of breath no palpitations. Respiratory: patient denied any cough is from production. No shortness of breath Neurologic: Patient denied any numbness or tingling headache. Musculoskeletal: Patient denies any complaints of joint swelling or deformity. Low back pain Skin: Negative Psychiatric: Negative Endocrine: No heat or cold intolerance. No recent weight gain. Genitourinary: No dysuria or hematuria. All other 14 point ROS negative except the above Past Medical History Past Medical History: Atrial Fibrillation, Coronary Artery Disease (CAD), Cancer, Diabetes Mellitus, Hyperlipidemia, Hypertension, Musculoskeletal Disorder, Neurologic Disorder, Osteoarthritis (OA), Pneumonia, Renal Disease, Rheumatoid Arthritis (RA), Skin Disorder, Thyroid Disorder Additional Past Medical History / Comment(s): Morbid obesity, chronic atrial fibrillation, diabetes mellitus type 2, hypertension, hyperlipidemia, spinal stenosis, osteoarthritis, hypothyroidism, hypertension, history of skin melanoma, history of bursitis with MRSA post I&D, rheumatoid arthritis, Sjogren's disease, 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 without any indication of ILD related to RA, Fall on July 22 transfer to [facility] for MRI, then Fall on 11/16/21 History of Any Multi-Drug Resistant Organisms: MRSA Date of last positivie culture/infection: 09/02/22 MDRO Source:: Right Leg Past Surgical History: Back Surgery, Breast Surgery, Cholecystectomy, Heart Catheterization, Joint Replacement, Orthopedic Surgery Additional Past Surgical History / Comment(s): Bilateral cataracts with lens implants, arthroscopies to lt wrist, gualberto knees, gualberto ankles, gualberto hips, lt hip replacment and redone, L/R shoulder sxs, rt breast bx-benign, egd/colonoscopy, skin cancer removal L arm, Lumbar fixnation possible broken Past Anesthesia/Blood Transfusion Reactions: No Reported Reaction Additional Past Anesthesia/Blood Transfusion Reaction / Comment(s): Pt has been told not to have anesthesia metabolized by the kidneys and has neurologic Sjogren's with post anesthesia paralysis. Past Psychological History: No Psychological Hx Reported Smoking Status: Former smoker Past Alcohol Use History: None Reported Past Drug Use History: None Reported - Past Family History Mother Family Medical History: CVA/TIA Additional Family Medical History / Comment(s): RUPTURED BOWEL Father Family Medical History: Cancer, Pneumonia Additional Family Medical History / Comment(s): ASPIRATIVE PNA Sister(s) Additional Family Medical History / Comment(s): at age 34 with lupus Medications and Allergies Home Medications Medication Instructions Recorded Confirmed Type Latanoprost [Xalatan 0.005%] 1 drop BOTH EYES HS 08/11/17 06/10/23 History predniSONE 10 mg PO DAILY 07/23/21 06/10/23 History Magnesium Oxide 400 mg PO DAILY 08/30/21 06/10/23 History Calcium Citrate/Vitamin D3 1 tab PO BID@0900,1700 11/16/21 06/10/23 History [Citracal + D Maximum Caplet] Digoxin [Lanoxin] 125 mcg PO Q48H 11/16/21 06/10/23 History Nitroglycerin Sl Tabs [Nitrostat] 0.4 mg SL Q5M PRN 11/16/21 06/10/23 History Adalimumab [Humira(Cf) Pen] 40 mg SQ Q14D 01/09/22 06/10/23 History Apixaban [Eliquis] 5 mg PO BID@0900,1700 05/02/22 06/10/23 History INSULIN LISPRO (HumaLOG) [humaLOG] 6 units SQ AC-TID 05/02/22 06/10/23 History INSULIN LISPRO (HumaLOG) [humaLOG] See Protocol SQ AC-TID PRN 05/02/22 06/10/23 History Multivit-Min/FA/Lycopen/Lutein 1 tab PO DAILY 05/02/22 06/10/23 History [Centrum Silver Tablet] Insulin Glargine [Lantus Vial] 30 unit SQ DAILY 05/17/22 06/10/23 History Loratadine [Claritin] 10 mg PO DAILY #30 tab 05/20/22 06/10/23 Rx SILVER sulfADIAZINE Cream 1 applic TOPICAL BID PRN 06/28/22 06/10/23 History [Silvadene 1% Cream] Tamsulosin [Flomax] 0.4 mg PO DAILY@1200 06/28/22 06/10/23 History Bumetanide [BUMEX] 1 mg PO BID@0900,1700 09/02/22 06/10/23 History Levothyroxine Sodium [Synthroid] 150 mcg PO HS@0000 09/02/22 06/10/23 History traZODone HCL [Desyrel] 50 mg PO HS 12/15/22 06/10/23 History Acetaminophen Tab [Tylenol] 325 mg PO QID PRN 05/15/23 06/10/23 History Clotrimazole Cream [Lotrimin Cream] 1 applic TOPICAL BID PRN 05/15/23 06/10/23 History Gabapentin [Neurontin] 400 mg PO Q6H 05/15/23 06/10/23 History Insulin Glargine [Lantus Vial] 15 unit SQ HS 05/15/23 06/10/23 History Tolterodine ER [Detrol LA] 4 mg PO DAILY 05/15/23 06/10/23 History methocarbamoL [Robaxin-750] 750 mg PO Q6H PRN 05/15/23 06/10/23 History metFORMIN HCL [Glucophage] 500 mg PO HS 05/25/23 06/10/23 History Potassium Chloride ER [K-Dur 20] 20 meq PO BID #60 tab 05/30/23 06/10/23 Rx oxyCODONE-APAP 7.5-325MG [Percocet 1 tab PO QID #120 tab 06/13/23 Rx 7.5-325 mg] Allergies Allergy/AdvReac Type Severity Reaction Status Date / Time adhesive Allergy Rash/Hives Verified 06/10/23 14:49 cephalexin [From Keflex] Allergy Rash/Hives Verified 06/10/23 14:49 grass pollen Allergy Unknown Verified 06/10/23 14:49 mold Allergy Unknown Verified 06/10/23 14:49 Sulfa (Sulfonamide Allergy Rash/Hives Verified 06/10/23 14:49 Antibiotics) newspaper ink Allergy Mild Unknown Uncoded 06/10/23 14:49 Physical Exam Vitals: Vital Signs Temp Pulse Resp BP Pulse Ox 06/10/23 13:26 68 18 130/64 97 06/10/23 12:29 97.9 F 82 18 124/76 97 06/10/23 09:21 76 18 133/76 97 06/10/23 04:34 97.6 F 93 18 108/61 98 Intake and Output 06/09/23 06/10/23 06/10/23 22:59 06:59 14:59 Other: Weight 117.934 kg PHYSICAL EXAMINATION: Patient is lying in the bed comfortably, no acute distress, awake alert and oriented 2-3. HEENT: Normocephalic. Neck is supple. Pupils reactive. Nostrils clear. Oral cavity is moist. Neck reveals no JVD, carotid bruits, or thyromegaly. CHEST EXAMINATION: Trachea is central. Symmetrical expansion. Bibasilar diminished sounds. No wheezing or rhonchi.. CARDIAC: Normal S1, S2 with no gallops. No murmurs ABDOMEN: Soft. Bowel sounds normal. No organomegaly. No abdominal bruits. Extremities: Bilateral lower extremity 2+ edema. No clubbing or cyanosis Neurologically awake, alert, oriented x 2-3 able to move all extremities.. No gross focal deficits noted Skin: No rash or skin lesions. Psychiatric: Coperative. Nonsuicidal Musculoskeletal: No joint swelling or deformity. Normal range of motion. Results CBC & Chem 7: 06/13/23 03:50 06/13/23 03:50 Labs: Abnormal Lab Results - Last 24 Hours (Table) 06/10/23 06/10/23 06/10/23 Range/Units 05:38 05:38 05:38 MCHC 30.3 L (31.0-37.0) g/dL RDW 16.3 H (11.5-15.5) % BUN 26 H (7-17) mg/dL Glucose 151 H (74-99) mg/dL Urine Protein Trace H (Negative) Thrombosis Risk Factor Assmnt - DVT/VTE Prophylaxis DVT/VTE Prophylaxis: Pharmacologic Prophylaxis ordered Assessment and Plan Assessment: Acute on chronic back pain with recent history of fall. CT lumbar spine showed no acute changes. History of multilevel posterior fusion changes from L2-S1. Multilevel lumbar spondylosis. There is decrease of foraminal stenosis. Hyperglycemia with uncontrolled diabetes type 2 insulin-dependent Chronic atrial fibrillation on anticoagulation with Eliquis Coronary artery disease Rheumatoid arthritis Hypertension Hyperlipidemia Osteoarthritis Hypothyroidism Prior history of smoking DVT prophylaxis patient is already on Eliquis Plan: Patient will be continued on pain management with Dilaudid. PT OT will be consulted. Continue with insulin sliding scale along with insulin regimen at home and follow-up blood sugars closely. Start back on home medication including Eliquis, digoxin and Bumex. Continue to follow closely. Time with Patient: Greater than 30
[2023-06-11 05:41] LABS: Glucose,Whole Blood 251 mg/dL (70-110)
[2023-06-11 08:05] LABS: Anisocytosis Slight; Basophils % (A) 1 %; Eosinophils # (A) 0.5 k/uL (0-0.7); Eosinophils % (A) 7 %; HCT 38.1 % (34.0-46.0); HGB 11.6 gm/dL (11.4-16.0); Hypochromasia Moderate; Lymphocytes # (A) 2.1 k/uL (1.0-4.8); Lymphocytes % (A) 30 %; MCH 28.5 pg (25.0-35.0); MCHC 30.3 g/dL (31.0-37.0); Mean Platelet Volume 7.6; Monocytes # (A) 0.4 k/uL (0-1.0); Monocytes % (A) 6 %; Neutrophils # (A) 3.9 k/uL (1.3-7.7); Neutrophils % (A) 56 %; Platelet Count 178 k/uL (150-450); RBC 4.05 m/uL (3.80-5.40); RDW 16.6 % (11.5-15.5)
[2023-06-11] MEDS: OXYBUTYNIN XL 5 MG TAB.ER.24 PO SCH (08:48)
[2023-06-11] MEDS: predniSONE 10 MG TAB PO SCH (08:48)
[2023-06-11] MEDS: INSULIN DETEMIR (LEVEMIR) 100 UNIT/ML SYR SQ SCH (08:48)
[2023-06-11] MEDS: MAGNESIUM OXIDE 400 MG TAB PO SCH (08:48)
[2023-06-11] MEDS: LORATADINE 10 MG TAB PO SCH (08:48)
[2023-06-11] MEDS: VIT A,C & E-LUTEIN-MINERALS 1 EACH TAB PO SCH (08:49)
[2023-06-11] MEDS: BUMETANIDE 1 MG TAB PO SCH (08:49)
[2023-06-11] MEDS: CALCIUM CARB-VIT D 500 MG-5 MCG TAB PO SCH (08:49)
[2023-06-11] MEDS: APIXABAN 5 MG TAB PO SCH (08:49)
[2023-06-11 09:07] LABS: African American GFR (CKD) 68 (>60 ml/min/1.73 sqM); Anion Gap 8 mmol/L; Blood Urea Nitrogen 31 mg/dL (7-17); Calcium 8.8 mg/dL (8.4-10.2); Carbon Dioxide 26 mmol/L (22-30); Chloride 102 mmol/L (98-107); Glucose 250 mg/dL (74-99); Non-African American GFR(CKD) 59 (>60 ml/min/1.73 sqM); Potassium 4.6 mmol/L (3.5-5.1); Sodium 136 mmol/L (137-145)
[2023-06-11] MEDS: TAMSULOSIN 0.4 MG CAP.ER.24H PO SCH (11:35)
[2023-06-11 11:38] LABS: Glucose,Whole Blood 283 mg/dL (70-110)
[2023-06-11 16:28] LABS: Glucose,Whole Blood 357 mg/dL (70-110)
[2023-06-11 20:21] LABS: Glucose,Whole Blood 370 mg/dL (70-110)
[2023-06-11] MEDS: DIGOXIN 125 MCG TAB PO SCH (21:11)
--- NOTE | 2023-06-12 02:07 | P.PN ---
Subjective Progress Note Date: 06/11/23 Patient is a 82-year-old female with a past medical history of coronary artery disease status post prior cardiac catheterization, atrial fibrillation on anticoagulation with Eliquis, hypertension, hyperlipidemia, osteoarthritis, rheumatoid arthritis and hypothyroidism, Sjogren's syndrome, prior history of smoking presents to ER with complaints of intractable back pain. Patient does have prior history of lumbar spine surgery. Denies any complaints of numbness or tingling in the legs. No bowel or bladder incontinence. Denied leg weakness. Patient has been having symptoms for the past few days. Patient states that she did have a fall prior to pain aggravation. Denies any hitting her head. Patient usually ambulates with a walker at baseline. And since the fall she has not been able to ambulate. Denies any chest pain or shortness of breath. No nausea vomiting abdominal pain or diarrhea. CT lumbar spine in the ER showed generalized osseous demineralization may be related to osteoporosis. Multilevel posterior fusion changes from L2-S1. No acute osseous abnormality demonstrated. Multilevel lumbar spondylosis with various degrees of canal and foraminal narrowing detailed. Incidental soft tissue findings described above. Paraspinal soft tissues show mild scarring or atelectasis in the lung bases. Moderate to heavy calcification of the aorta and branches. Heavy calcification of the bifurcation and proximal right common iliac artery potentially resulting in high-grade stenosis. Laboratory data showed WBC 9.1 hemoglobin 12.8 and platelets 165 Sodium 141 potassium 4.2 chloride 101 bicarb is 30 BUN 26 and creatinine 0.79 and blood sugar 151 Urinalysis is negative for infection. Liver enzymes are not elevated. 06/11/2023 Patient is currently sitting on side of bed. Awake alert and oriented. Denies any worsening back pain. Pain is fairly controlled. Patient is also having bilateral lower extremity swelling for which patient is on Bumex which is being continued. Otherwise patient is on IV Dilaudid 0.5 mg every 4 hourly as needed for pain. Denies any headache or dizziness lightheadedness. No chest pain or shortness of breath. PT OT will be consulted and possible discharge in next 24 hours. Laboratory data showed sodium 136 potassium 4.6 chloride 102 bicarb is 26 BUN 31 and creatinine 0.92 and blood sugar 250. A1c 9.3 Objective - Vital Signs Vital signs: Vital Signs Temp 98.2 F 06/11/23 20:08 Pulse 86 06/11/23 20:08 Resp 18 06/11/23 20:08 BP 154/73 06/11/23 20:08 Pulse Ox 93 L 06/11/23 20:08 FiO2 Intake & Output 06/11/23 06/11/23 06/12/23 06:59 18:59 06:59 Other: Voiding Method Bedside Commode Bedside Commode Bedside Commode Diaper Diaper Diaper # Voids 7 3 - Exam PHYSICAL EXAMINATION: Patient is lying in the bed comfortably, no acute distress, awake alert and oriented 2-3. HEENT: Normocephalic. Neck is supple. Pupils reactive. Nostrils clear. Oral cavity is moist. Neck reveals no JVD, carotid bruits, or thyromegaly. CHEST EXAMINATION: Trachea is central. Symmetrical expansion. Bibasilar diminished sounds. No wheezing or rhonchi.. CARDIAC: Normal S1, S2 with no gallops. No murmurs ABDOMEN: Soft. Bowel sounds normal. No organomegaly. No abdominal bruits. Extremities: Bilateral lower extremity 2+ edema. No clubbing or cyanosis Neurologically awake, alert, oriented x 2-3 able to move all extremities.. No gross focal deficits noted Skin: No rash or skin lesions. Psychiatric: Coperative. Nonsuicidal Musculoskeletal: No joint swelling or deformity. Normal range of motion. - Labs CBC & Chem 7: 06/11/23 07:40 06/11/23 07:40 Labs: Abnormal Lab Results - Last 24 Hours (Table) 06/11/23 06/11/23 06/11/23 Range/Units 05:39 07:40 07:40 MCHC 30.3 L (31.0-37.0) g/dL RDW 16.6 H (11.5-15.5) % Sodium (137-145) mmol/L BUN (7-17) mg/dL Glucose (74-99) mg/dL POC Glucose (mg/dL) 251 H (70-110) mg/dL Hemoglobin A1c 9.3 H (<=6.0) % 06/11/23 06/11/23 06/11/23 Range/Units 07:40 11:36 16:26 MCHC (31.0-37.0) g/dL RDW (11.5-15.5) % Sodium 136 L (137-145) mmol/L BUN 31 H (7-17) mg/dL Glucose 250 H (74-99) mg/dL POC Glucose (mg/dL) 283 H 357 H (70-110) mg/dL Hemoglobin A1c (<=6.0) % 06/11/23 Range/Units 20:12 MCHC (31.0-37.0) g/dL RDW (11.5-15.5) % Sodium (137-145) mmol/L BUN (7-17) mg/dL Glucose (74-99) mg/dL POC Glucose (mg/dL) 370 H (70-110) mg/dL Hemoglobin A1c (<=6.0) % Assessment and Plan Assessment: Acute on chronic back pain with recent history of fall. CT lumbar spine showed no acute changes. History of multilevel posterior fusion changes from L2-S1. Multilevel lumbar spondylosis. There is decrease of foraminal stenosis. Hyperglycemia with uncontrolled diabetes type 2 insulin-dependent Chronic atrial fibrillation on anticoagulation with Eliquis Coronary artery disease Rheumatoid arthritis Hypertension Hyperlipidemia Osteoarthritis Hypothyroidism Prior history of smoking DVT prophylaxis patient is already on Eliquis Plan: Patient will be continued on pain management with Dilaudid. PT OT will be consulted. Continue with insulin sliding scale along with insulin regimen at home and follow-up blood sugars closely. Start back on home medication including Eliquis, digoxin and Bumex. Continue to follow closely. Time with Patient: Greater than 30
[2023-06-12 06:03] LABS: Glucose,Whole Blood 308 mg/dL (70-110)
[2023-06-12] MEDS ORDERED: DEXTROSE 50% SYRINGE 50 ML IVP PRN ×2 (08:38)
[2023-06-12 08:49] LABS: Blood Urea Nitrogen 29.7 mg/dL (9.0-27.0); Carbon Dioxide 26.6 mmol/L (21.6-31.8); Chloride 97 mmol/L (96-109); Glucose 335 mg/dL (70-110); Potassium 4.9 mmol/L (3.5-5.5); Sodium 135 mmol/L (135-145)
--- NOTE | 2023-06-12 09:07 | P.PN ---
Subjective Progress Note Date: 06/12/23 Principal diagnosis: history of fall, pain This is an 82-year-old female presented to the emergency department with complaints of intractable back pain. She also reports a recent fall at home. CT of the lumbar spine showed generalized osseous demineralization may be related to osteoporosis, multilevel posterior fusion changes from L2-S1 and no acute osseous abnormality demonstrated. Patient is seen this morning laying in bed. She reports still some lower back pain. Blood sugars are elevated. She is tolerating diet. Patient reports she has not been up moving around. Objective - Vital Signs Vital signs: Vital Signs Temp 98.0 F 06/12/23 06:56 Pulse 86 06/12/23 06:56 Resp 19 06/12/23 06:56 BP 136/70 06/12/23 06:56 Pulse Ox 93 L 06/12/23 06:56 FiO2 Intake & Output 06/11/23 06/12/23 06/12/23 18:59 06:59 18:59 Other: Voiding Method Bedside Commode Bedside Commode Diaper Diaper # Voids 3 5 - Constitutional General appearance: Present: cooperative, no acute distress - EENT Eyes: Present: PERRLA - Neck Neck: Present: normal ROM. Absent: lymphadenopathy, rigidity - Respiratory Respiratory: bilateral: diminished - Cardiovascular Heart sounds: normal: S1, S2 - Gastrointestinal General gastrointestinal: Present: soft. Absent: tenderness - Integumentary Integumentary: Present: normal, normal turgor - Musculoskeletal Musculoskeletal: Present: generalized weakness - Psychiatric Psychiatric: Present: A&O x's 3 - Labs CBC & Chem 7: 06/11/23 07:40 06/12/23 03:14 Labs: Abnormal Lab Results - Last 24 Hours (Table) 06/11/23 06/11/23 06/11/23 Range/Units 07:40 07:40 11:36 Sodium 136 L (137-145) mmol/L BUN 31 H (7-17) mg/dL Est GFR (CKD-EPI) (>=60) BUN/Creatinine Ratio (12.00-20.00) Ratio Glucose 250 H (74-99) mg/dL POC Glucose (mg/dL) 283 H (70-110) mg/dL Hemoglobin A1c 9.3 H (<=6.0) % 06/11/23 06/11/23 06/12/23 Range/Units 16:26 20:12 03:14 Sodium (137-145) mmol/L BUN 29.7 H (7-17) mg/dL Est GFR (CKD-EPI) 50 L (>=60) BUN/Creatinine Ratio 27.00 H (12.00-20.00) Ratio Glucose 335 H (74-99) mg/dL POC Glucose (mg/dL) 357 H 370 H (70-110) mg/dL Hemoglobin A1c (<=6.0) % 06/12/23 Range/Units 05:59 Sodium (137-145) mmol/L BUN (7-17) mg/dL Est GFR (CKD-EPI) (>=60) BUN/Creatinine Ratio (12.00-20.00) Ratio Glucose (74-99) mg/dL POC Glucose (mg/dL) 308 H (70-110) mg/dL Hemoglobin A1c (<=6.0) % Assessment and Plan (1) History of fall Current Visit: Yes Status: Acute Code(s): Z91.81 - HISTORY OF FALLING SNOMED Code(s): 465349741 (2) Intractable back pain Current Visit: Yes Status: Acute Code(s): M54.9 - DORSALGIA, UNSPECIFIED SNOMED Code(s): 825840573 (3) Atrial fibrillation Current Visit: No Status: Acute Code(s): I48.91 - UNSPECIFIED ATRIAL FIBRILLATION SNOMED Code(s): 42122965 (4) CAD (coronary artery disease) Current Visit: No Status: Acute Code(s): I25.10 - ATHSCL HEART DISEASE OF [place] CORONARY ARTERY W/O ANG PCTRS SNOMED Code(s): 31484999 (5) CHF (congestive heart failure) Current Visit: No Status: Acute Code(s): I50.9 - HEART FAILURE, UNSPECIFIED SNOMED Code(s): 88758156 (6) Diabetes Current Visit: No Status: Acute Code(s): E11.9 - TYPE 2 DIABETES MELLITUS WITHOUT COMPLICATIONS SNOMED Code(s): 35482562 (7) Generalized weakness Current Visit: No Status: Acute Code(s): R53.1 - WEAKNESS SNOMED Code(s): 51979593 (8) History of lumbar fusion Current Visit: No Status: Acute Code(s): Z98.1 - ARTHRODESIS STATUS SNOMED Code(s): 29698295136043 (9) Hyperlipidemia Current Visit: No Status: Acute Code(s): E78.5 - HYPERLIPIDEMIA, UNSPECIFIED SNOMED Code(s): 64045823 (10) Hypertension Current Visit: No Status: Acute Code(s): I10 - ESSENTIAL (PRIMARY) HYPERTENSION SNOMED Code(s): 90572388 Plan: Check CBC and CMP in the morning. Continue with pain control. Consult to PT and OT Patient seen and evaluated by nurse practitioner, physician in agreement with plan
[2023-06-12 12:02] LABS: Glucose,Whole Blood 294 mg/dL (70-110)
[2023-06-12 15:31] VITALS: BMI 35.2
[2023-06-12 16:37] LABS: Glucose,Whole Blood 376 mg/dL (70-110)
[2023-06-12 20:46] LABS: Glucose,Whole Blood 389 mg/dL (70-110)
[2023-06-12] MEDS: INSULIN DETEMIR (LEVEMIR) 100 UNIT/ML SYR SQ SCH (22:24)
[2023-06-13 05:51] LABS: Glucose,Whole Blood 305 mg/dL (70-110)
[2023-06-13 08:42] VITALS: BP 116/67; PULSE 60; RESP 15; TEMP 97.8
--- NOTE | 2023-06-13 08:47 | P.DS ---
Providers Date of admission: 06/10/23 09:55 Attending physician: Nicholas Hart Primary care physician: Nicholas Hart - Discharge Diagnosis(es) (1) History of fall Current Visit: Yes Status: Acute (2) Intractable back pain Current Visit: Yes Status: Acute (3) Atrial fibrillation Current Visit: No Status: Acute (4) CAD (coronary artery disease) Current Visit: No Status: Acute (5) CHF (congestive heart failure) Current Visit: No Status: Acute (6) Diabetes Current Visit: No Status: Acute (7) Generalized weakness Current Visit: No Status: Acute (8) History of lumbar fusion Current Visit: No Status: Acute (9) Hyperlipidemia Current Visit: No Status: Acute (10) Hypertension Current Visit: No Status: Acute Hospital Course: This is an 82-year-old female who presented to the emergency department with complaints of intractable back pain. Patient also had reported a recent fall at home. CT of the lumbar spine showed generalized osseous demineralization may be related to osteoporosis, multilevel posterior fusion changes from L2-S1 and no acute osseous abnormality demonstrated. Patient reporting some pain, but is improved. Physical therapy has worked with patient and are recommending she go home with home health care. Patient already on Percocet at home, will send in a refill. Patient will be discharged home today with home health care. Patient seen and evaluated by nurse practitioner, physician in agreement with plan. Plan - Discharge Summary New Discharge Prescriptions: Continue Latanoprost [Xalatan 0.005%] 1 drop BOTH EYES HS Magnesium Oxide 400 mg PO DAILY Calcium Citrate/Vitamin D3 [Citracal + D Maximum Caplet] 1 tab PO BID@0900,1700 Adalimumab [Humira(Cf) Pen] 40 mg SQ Q14D INSULIN LISPRO (HumaLOG) [humaLOG] 6 units SQ AC-TID Insulin Glargine [Lantus Vial] 30 unit SQ DAILY Loratadine [Claritin] 10 mg PO DAILY #30 tab Tamsulosin [Flomax] 0.4 mg PO DAILY@1200 SILVER sulfADIAZINE Cream [Silvadene 1% Cream] 1 applic TOPICAL BID PRN PRN Reason: Skin Irritation Bumetanide [BUMEX] 1 mg PO BID@0900,1700 Levothyroxine Sodium [Synthroid] 150 mcg PO HS@0000 traZODone HCL [Desyrel] 50 mg PO HS Gabapentin [Neurontin] 400 mg PO Q6H methocarbamoL [Robaxin-750] 750 mg PO Q6H PRN PRN Reason: Pain Clotrimazole Cream [Lotrimin Cream] 1 applic TOPICAL BID PRN PRN Reason: fungal infection metFORMIN HCL [Glucophage] 500 mg PO HS Potassium Chloride ER [K-Dur 20] 20 meq PO BID #60 tab predniSONE 10 mg PO DAILY Nitroglycerin Sl Tabs [Nitrostat] 0.4 mg SL Q5M PRN PRN Reason: Chest Pain Digoxin [Lanoxin] 125 mcg PO Q48H INSULIN LISPRO (HumaLOG) [humaLOG] See Protocol SQ AC-TID PRN PRN Reason: high blood sugar Multivit-Min/FA/Lycopen/Lutein [Centrum Silver Tablet] 1 tab PO DAILY Apixaban [Eliquis] 5 mg PO BID@0900,1700 Tolterodine ER [Detrol LA] 4 mg PO DAILY Insulin Glargine [Lantus Vial] 15 unit SQ HS Acetaminophen Tab [Tylenol] 325 mg PO QID PRN PRN Reason: Pain oxyCODONE-APAP 7.5-325MG [Percocet 7.5-325 mg] 1 tab PO QID #120 tab Discharge Medication List Latanoprost [Xalatan 0.005%] 1 drop BOTH EYES HS 08/11/17 [History] predniSONE 10 mg PO DAILY 07/23/21 [History] Magnesium Oxide 400 mg PO DAILY 08/30/21 [History] Calcium Citrate/Vitamin D3 [Citracal + D Maximum Caplet] 1 tab PO BID@0900,1700 11/16/21 [History] Digoxin [Lanoxin] 125 mcg PO Q48H 11/16/21 [History] Nitroglycerin Sl Tabs [Nitrostat] 0.4 mg SL Q5M PRN 11/16/21 [History] Adalimumab [Humira(Cf) Pen] 40 mg SQ Q14D 01/09/22 [History] Apixaban [Eliquis] 5 mg PO BID@0900,1700 05/02/22 [History] INSULIN LISPRO (HumaLOG) [humaLOG] 6 units SQ AC-TID 05/02/22 [History] INSULIN LISPRO (HumaLOG) [humaLOG] See Protocol SQ AC-TID PRN 05/02/22 [History] Multivit-Min/FA/Lycopen/Lutein [Centrum Silver Tablet] 1 tab PO DAILY 05/02/22 [History] Insulin Glargine [Lantus Vial] 30 unit SQ DAILY 05/17/22 [History] Loratadine [Claritin] 10 mg PO DAILY #30 tab 05/20/22 [Rx] SILVER sulfADIAZINE Cream [Silvadene 1% Cream] 1 applic TOPICAL BID PRN 06/28/22 [History] Tamsulosin [Flomax] 0.4 mg PO DAILY@1200 06/28/22 [History] Bumetanide [BUMEX] 1 mg PO BID@0900,1700 09/02/22 [History] Levothyroxine Sodium [Synthroid] 150 mcg PO HS@0000 09/02/22 [History] traZODone HCL [Desyrel] 50 mg PO HS 12/15/22 [History] Acetaminophen Tab [Tylenol] 325 mg PO QID PRN 05/15/23 [History] Clotrimazole Cream [Lotrimin Cream] 1 applic TOPICAL BID PRN 05/15/23 [History] Gabapentin [Neurontin] 400 mg PO Q6H 05/15/23 [History] Insulin Glargine [Lantus Vial] 15 unit SQ HS 05/15/23 [History] Tolterodine ER [Detrol LA] 4 mg PO DAILY 05/15/23 [History] methocarbamoL [Robaxin-750] 750 mg PO Q6H PRN 05/15/23 [History] metFORMIN HCL [Glucophage] 500 mg PO HS 05/25/23 [History] Potassium Chloride ER [K-Dur 20] 20 meq PO BID #60 tab 05/30/23 [Rx] oxyCODONE-APAP 7.5-325MG [Percocet 7.5-325 mg] 1 tab PO QID #120 tab 06/13/23 [Rx] Follow up Appointment(s)/Referral(s): Nicholas Hart MD [Primary Care Provider] - 1 Week Discharge Disposition: HOME WITH HOME HEALTH SERVICES
[2023-06-13 08:50] LABS: HCT 36.6 % (37.2-46.3); HGB 11.1 g/dL (12.0-15.0); MCH 28.3 pg (27.0-32.0); MCHC 30.3 g/dL (32.0-37.0); MCV 93.4 FL (80.0-97.0); Mean Platelet Volume 11.1 FL (9.5-12.2); NRBC Per 100 WBC 0 X 10*3/uL (0.00-0.01); Platelet Count 136 X 10*3/uL (140-440); RBC 3.92 X 10*6/uL (4.10-5.20); RDW 16.8 % (11.5-14.5); WBC 7.69 X 10*3/uL (4.50-10.00)
[2023-06-13 09:11] LABS: ALT 22 U/L (8-44); AST 26 U/L (13-35); Albumin 3.6 g/dL (3.8-4.9); Albumin/Globulin Ratio 1.12 Ratio (1.60-3.17); Alkaline Phosphatase 100 U/L (41-126); Blood Urea Nitrogen 32.8 mg/dL (9.0-27.0); Calcium 8.8 mg/dL (8.7-10.3); Carbon Dioxide 26.7 mmol/L (21.6-31.8); Chloride 98 mmol/L (96-109); Globulin 3.2 g/dL (1.6-3.3); Glucose 357 mg/dL (70-110); Potassium 4.4 mmol/L (3.5-5.5); Sodium 135 mmol/L (135-145); Total Bilirubin 0.3 mg/dL (0.3-1.2); Total Protein 6.8 g/dL (6.2-8.2)
[2023-06-13 11:13] LABS: Glucose,Whole Blood 216 mg/dL (70-110)
== END 2023-06-13 12:46 | disposition home health service (06) ==
LOC: EC 04:32 → 4SSUR 09:55
PROVIDERS: ADMIT Family Medicine; ATTEND Family Medicine
DX: M54.50 Low back pain, unspecified (principal); E11.65 Type 2 diabetes mellitus with hyperglycemia; I11.0 Hypertensive heart disease with heart failure; I50.9 Heart failure, unspecified; I25.10 Atherosclerotic heart disease of native coronary artery without angina pectoris; E78.5 Hyperlipidemia, unspecified; I48.20 Chronic atrial fibrillation, unspecified; E03.9 Hypothyroidism, unspecified; M47.816 Spondylosis without myelopathy or radiculopathy, lumbar region; M06.9 Rheumatoid arthritis, unspecified; R53.1 Weakness; E66.01 Morbid (severe) obesity due to excess calories; Z68.35 Body mass index [BMI] 35.0-35.9, adult; Z85.820 Personal history of malignant melanoma of skin; Z87.891 Personal history of nicotine dependence; Z91.81 History of falling; Z98.1 Arthrodesis status; Z79.01 Long term (current) use of anticoagulants; Z79.4 Long term (current) use of insulin; Z79.899 Other long term (current) drug therapy; Z79.890 Hormone replacement therapy; Z79.84 Long term (current) use of oral hypoglycemic drugs; Z88.2 Allergy status to sulfonamides
CPT/HCPCS: 96376 ×5; 96374; 96375; 99284; 36415; 97161; 80053 ×2; 80048 ×2; 80162; 85025 ×2; 85027; 81003; 83036 ×2; 72131; G0378 ×4; J1885 ×4; J7512 ×3; J1170 ×4

== ENCOUNTER 2023-06-16 04:10 | Emergency (ER) | payer MEDICARE ==
[2023-06-16 04:16] VITALS: RESP 18; TEMP 97.9
--- NOTE | 2023-06-16 04:25 | ED ---
Extremity Problem HPI - General Chief complaint: Extremity Problem,Nontraumatic Stated complaint: Leg pain Time Seen by Provider: 06/16/23 04:13 Source: EMS, RN notes reviewed, old records reviewed Mode of arrival: EMS Limitations: no limitations - History of Present Illness Initial comments: This is a 82-year-old female on reevaluation, patient presents for lower extremity edema swelling concern for worsening infection. Patient has no fevers multiple generalized complaints and multiple recent ER visits for similar and overlapping symptoms. MD Complaint: extremity pain, extremity swelling -: days(s) Location: left, right, bilateral lower extremity History of Same: Yes -: Yes myalgia, Yes arthralgia Radiation: none Severity scale (1-10): 5 Quality: aching Consistency: constant Improves with: nothing Worsens with: nothing Associated Symptoms: denies other symptoms - Related Data Home Medications Medication Instructions Recorded Confirmed Latanoprost [Xalatan 0.005%] 1 drop BOTH EYES HS 08/11/17 06/10/23 predniSONE 10 mg PO DAILY 07/23/21 06/10/23 Magnesium Oxide 400 mg PO DAILY 08/30/21 06/10/23 Calcium Citrate/Vitamin D3 1 tab PO BID@0900,1700 11/16/21 06/10/23 [Citracal + D Maximum Caplet] Digoxin [Lanoxin] 125 mcg PO Q48H 11/16/21 06/10/23 Nitroglycerin Sl Tabs [Nitrostat] 0.4 mg SL Q5M PRN 11/16/21 06/10/23 Adalimumab [Humira(Cf) Pen] 40 mg SQ Q14D 01/09/22 06/10/23 Apixaban [Eliquis] 5 mg PO BID@0900,1700 05/02/22 06/10/23 INSULIN LISPRO (HumaLOG) [humaLOG] 6 units SQ AC-TID 05/02/22 06/10/23 INSULIN LISPRO (HumaLOG) [humaLOG] See Protocol SQ AC-TID PRN 05/02/22 06/10/23 Multivit-Min/FA/Lycopen/Lutein 1 tab PO DAILY 05/02/22 06/10/23 [Centrum Silver Tablet] Insulin Glargine [Lantus Vial] 30 unit SQ DAILY 05/17/22 06/10/23 SILVER sulfADIAZINE Cream 1 applic TOPICAL BID PRN 06/28/22 06/10/23 [Silvadene 1% Cream] Tamsulosin [Flomax] 0.4 mg PO DAILY@1200 06/28/22 06/10/23 Bumetanide [BUMEX] 1 mg PO BID@0900,1700 09/02/22 06/10/23 Levothyroxine Sodium [Synthroid] 150 mcg PO HS@0000 09/02/22 06/10/23 traZODone HCL [Desyrel] 50 mg PO HS 12/15/22 06/10/23 Acetaminophen Tab [Tylenol] 325 mg PO QID PRN 05/15/23 06/10/23 Clotrimazole Cream [Lotrimin Cream] 1 applic TOPICAL BID PRN 05/15/23 06/10/23 Insulin Glargine [Lantus Vial] 15 unit SQ HS 05/15/23 06/10/23 Tolterodine ER [Detrol LA] 4 mg PO DAILY 05/15/23 06/10/23 metFORMIN HCL [Glucophage] 500 mg PO HS 05/25/23 06/10/23 Previous Rx's Medication Instructions Recorded Loratadine [Claritin] 10 mg PO DAILY #30 tab 05/20/22 Potassium Chloride ER [K-Dur 20] 20 meq PO BID #60 tab 05/30/23 Cyclobenzaprine [Flexeril] 10 mg PO BID 30 Days #60 tab 06/15/23 Lidocaine 5% Patch [Lidoderm] 1 each TP DAILY 30 Days #30 patch 06/15/23 Amoxic-Pot Clav 875-125Mg 1 tab PO Q12HR #20 tablet 06/16/23 [Augmentin 875-125] Gabapentin [Neurontin] 400 mg PO Q6H 30 Days #120 cap 06/22/23 oxyCODONE-APAP 7.5-325MG [Percocet 1 tab PO Q6HR PRN 30 Days #1200 tab 06/22/23 7.5-325 mg] oxyCODONE-APAP 7.5-325MG [Percocet 1 tab PO QID #120 tab 06/22/23 7.5-325 mg] Allergies Allergy/AdvReac Type Severity Reaction Status Date / Time adhesive Allergy Rash/Hives Verified 06/18/23 04:22 cephalexin [From Keflex] Allergy Rash/Hives Verified 06/18/23 04:22 grass pollen Allergy Unknown Verified 06/18/23 04:22 mold Allergy Unknown Verified 06/18/23 04:22 newspaper ink Allergy Mild Unknown Uncoded 06/18/23 04:22 Review of Systems ROS Statement: Those systems with pertinent positive or pertinent negative responses have been documented in the HPI. ROS Other: All systems not noted in ROS Statement are negative. Past Medical History Past Medical History: Atrial Fibrillation, Coronary Artery Disease (CAD), Cancer, Diabetes Mellitus, Hyperlipidemia, Hypertension, Musculoskeletal Disorder, Neurologic Disorder, Osteoarthritis (OA), Pneumonia, Renal Disease, Rheumatoid Arthritis (RA), Skin Disorder, Thyroid Disorder Additional Past Medical History / Comment(s): Morbid obesity, chronic atrial fibrillation, diabetes mellitus type 2, hypertension, hyperlipidemia, spinal stenosis, osteoarthritis, hypothyroidism, hypertension, history of skin melanoma, history of bursitis with MRSA post I&D, rheumatoid arthritis, Sjogren's disease, 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 without any indication of ILD related to RA, Fall on July 22 transfer to [facility] for MRI, then Fall on 11/16/21 History of Any Multi-Drug Resistant Organisms: MRSA Date of last positivie culture/infection: 09/02/22 MDRO Source:: Right Leg Past Surgical History: Back Surgery, Breast Surgery, Cholecystectomy, Heart Catheterization, Joint Replacement, Orthopedic Surgery Additional Past Surgical History / Comment(s): Bilateral cataracts with lens implants, arthroscopies to lt wrist, gualberto knees, gualberto ankles, gualberto hips, lt hip replacment and redone, L/R shoulder sxs, rt breast bx-benign, egd/colonoscopy, skin cancer removal L arm, Lumbar fixnation possible broken Past Anesthesia/Blood Transfusion Reactions: No Reported Reaction Additional Past Anesthesia/Blood Transfusion Reaction / Comment(s): Pt has been told not to have anesthesia metabolized by the kidneys and has neurologic Sjogren's with post anesthesia paralysis. Past Psychological History: No Psychological Hx Reported Smoking Status: Former smoker Past Alcohol Use History: None Reported Past Drug Use History: None Reported - Past Family History Mother Family Medical History: CVA/TIA Additional Family Medical History / Comment(s): RUPTURED BOWEL Father Family Medical History: Cancer, Pneumonia Additional Family Medical History / Comment(s): ASPIRATIVE PNA Sister(s) Additional Family Medical History / Comment(s): at age 34 with lupus General Exam General appearance: alert, in no apparent distress Head exam: Present: atraumatic, normocephalic, normal inspection Eye exam: Present: normal appearance, PERRL, EOMI. Absent: scleral icterus, conjunctival injection, periorbital swelling ENT exam: Present: normal exam, mucous membranes moist Neck exam: Present: normal inspection. Absent: tenderness, meningismus, lymphadenopathy Respiratory exam: Present: normal lung sounds bilaterally. Absent: respiratory distress, wheezes, rales, rhonchi, stridor Cardiovascular Exam: Present: regular rate, normal rhythm, normal heart sounds. Absent: systolic murmur, diastolic murmur, rubs, gallop, clicks GI/Abdominal exam: Present: soft, normal bowel sounds. Absent: distended, tenderness, guarding, rebound, rigid Extremities exam: Present: normal inspection, full ROM, normal capillary refill. Absent: tenderness, pedal edema, joint swelling, calf tenderness Back exam: Present: normal inspection Neurological exam: Present: alert, oriented X3, CN II-XII intact Psychiatric exam: Present: normal affect, normal mood Skin exam: Present: warm, dry, intact, normal color. Absent: rash Course Vital Signs 06/16/23 06/16/23 04:12 05:50 Temperature 97.9 F Pulse Rate 99 77 Respiratory 18 18 Rate Blood Pressure 131/67 130/70 O2 Sat by Pulse 98 100 Oximetry - Reevaluation(s) Reevaluation #1: Medical records reviewed Reevaluation #2: Patient informed of results and questions answered Reevaluation #3: Patient informed of results and questions answered Reevaluation #4: Was pt. sent in by a medical professional or institution (, PA, STOCK SHEETS CLEANER INSPECTOR, urgent care, hospital, or correction...) When possible be specific @ -no Did you speak to anyone other than the patient for history (EMS, parent, family, police, friend...)? What history was obtained from this source @ -no Did you review nursing and triage notes (agree or disagree)? Why? @ -agree Are old charts reviewed (outside hosp., previous admission, EMS record, old EKG, old radiological studies, urgent care reports/EKG's, correction records)? Report findings @ -yes Differential Diagnosis (chest pain, altered mental status, abdominal pain women, abdominal pain men, vaginal bleeding, weakness, fever, dyspnea, syncope, headache, dizziness, GI bleed, back pain, seizure, CVA, palpatations, mental health, musculoskeletal)? @ -prior EKG interpreted by me (3pts min.). @ -no X-rays interpreted by me (1pt min.). @ -no CT interpreted by me (1pt min.). @ -no U/S interpreted by me (1pt. min.). @ -no What testing was considered but not performed or refused? (CT, X-rays, U/S, labs)? Why? @ -none What meds were considered but not given or refused? Why? @ -none Did you discuss the management of the patient with other professionals (professionals i.e. , PA, STOCK SHEETS CLEANER INSPECTOR, lab, RT, psych nurse, social service worker, cd mixer helper, teacher, resident medical officer, upper caser)? Give summary @ -no Was smoking cessation discussed for >3mins.? @ -no Was critical care preformed (if so, how long)? @ -no Were there social determinants of health that impacted care today? How? (Homelessness, low income, unemployed, alcoholism, drug addiction, transportation, low edu. Level, literacy, decrease access to med. care, [place] [facility], rehab)? @ -none Was there de-escalation of care discussed even if they declined (Discuss DNR or withdrawal of care, Hospice)? DNR status @ -no What co-morbidities impacted this encounter? (DM, HTN, Smoking, COPD, CAD, Cancer, CVA, ARF, Chemo, Hep., AIDS, mental health diagnosis, sleep apnea, morbid obesity)? @ -none Was patient admitted / discharged? Hospital course, mention meds given and route, prescriptions, significant lab abnormalities, going to OR and other pertinent info. @ -82 female on reevaluation patient has bilateral lower extremity cellulitis will place on antibiotics and can be discharged home Discharge Undiagnosed new problem with uncertain prognosis? @ -no Drug Therapy requiring intensive monitoring for toxicity (Heparin, Nitro, Insulin, Cardizem)? @ -no Were any procedures done? @ -no Diagnosis/symptom? @ -Bilateral lower extremity cellulitis Acute, or Chronic, or Acute on Chronic? @ -Acute Uncomplicated (without systemic symptoms) or Complicated (systemic symptoms)? @ -Complicated Side effects of treatment? @ -no Exacerbation, Progression, or Severe Exacerbation? @ -exacerbation Poses a threat to life or bodily function? How? (Chest pain, [place], [place], pneumonia, PE, COPD, DKA, ARF, appy, cholecystitis, CVA, Diverticulitis, Homicidal, Gaye cidal, threat to staff... and all critical care pts) @ -yes with extremes of age Medical Decision Making - Medical Decision Making 82 female to ER for reevaluation. Patient presents today for lower extremity cellulitis. Again patient will just be discharged home after a long consultation regarding recent ER visits uptake and multiple recent ER visits at this point every day for the past week - Radiology Data Radiology results: report reviewed (X-ray tib-fib negative for acute disease), image reviewed Disposition Clinical Impression: Bilateral lower leg cellulitis Disposition: HOME SELF-CARE Condition: Good Instructions (If sedation given, give patient instructions): Cellulitis (ED) Prescriptions: Amoxic-Pot Clav 875-125Mg [Augmentin 875-125] 1 tab PO Q12HR #20 tablet Is patient prescribed a controlled substance at d/c from ED?: No Referrals: Nicholas Hart MD [Primary Care Provider] - 1-2 days Time of Disposition: 06:30
[2023-06-16] MEDS: HYDROcodone/APAP 5-325MG 1 EACH TAB PO STA (05:54)
[2023-06-16] MEDS: AMOXIC-POT CLAV 875-125MG 1 EACH TAB PO STA (05:54)
[2023-06-16] MEDS: SULFAMETHOX-TMP 800-160MG 1 EACH TAB PO STA (05:55)
[2023-06-16 06:16] VITALS: BP 130/70; PULSE 77
--- NOTE | 2023-06-16 07:29 | XR ---
EXAMINATION TYPE: XR tibia fibula bilateral DATE OF EXAM: 06/16/2023 COMPARISON: 07/24/2019 2V knee HISTORY: Pain TECHNIQUE: 2 view left tibia and fibula FINDINGS: There is a healing fracture of the proximal diaphyseal fibula with callus formation. Fractu re alignment and positioning appears stable. There appears to be an older fracture of the distal diap hyseal fibula which may be healed. Soft tissue swelling is over the distal lateral soft tissues. Degenerative joint changes are at the ankle and at the knee. This is more advanced with the medial co mpartment and at the ankle. There may be some Charcot joint with flattening of the plantar arch of th e foot lateral distal foreleg image. Soft tissue swelling is over the dorsum of foot and over the ant erior distal tibia. Some calcifications over the anterior tibia on the lateral projection. IMPRESSION: 1. Healing fracture proximal diaphyseal fibula. 2. Healed fracture distal diaphyseal fibula. 3. Advanced degenerative changes at the ankle and knee joint spaces. 4. Soft tissue swelling distal lateral foreleg and noted over the anterior tibia and dorsum of the fo ot on the lateral projection. 5. Loss of the plantar arch. Consider Charcot joint.
== END 2023-06-16 07:45 | disposition home or self-care (01) ==
LOC: EC 04:10
DX: L03.116 Cellulitis of left lower limb (principal); L03.115 Cellulitis of right lower limb; Z87.891 Personal history of nicotine dependence; Z88.1 Allergy status to other antibiotic agents; Z88.8 Allergy status to other drugs, medicaments and biological substances
CPT/HCPCS: 99284

== ENCOUNTER 2023-06-16 22:28 | Emergency (ER) | payer MEDICARE ==
[2023-06-16 22:58] VITALS: TEMP 98
--- NOTE | 2023-06-16 23:19 | ED ---
Recheck HPI - General Chief Complaint: Back Pain/Injury Stated Complaint: Back pain Time Seen by Provider: 06/16/23 22:37 Source: patient, EMS, RN notes reviewed, old records reviewed Mode of arrival: EMS Limitations: no limitations - History of Present Illness Initial Comments: This is an 82-year-old female to the ER for evaluation today. Patient [place] for evaluation and a recheck of pain chronic pain back pain. No new injuries no new complaints MD Complaint: other (Back pain acute on chronic back pain) Returns Today for: persistent/worsening pain related to initial visit Symptoms Since Prior Visit: worsening pain Associated Symptoms: none Treatments Prior to Arrival: Given Pain Meds on - Related Data Home Medications Medication Instructions Recorded Confirmed Latanoprost [Xalatan 0.005%] 1 drop BOTH EYES HS 08/11/17 06/10/23 predniSONE 10 mg PO DAILY 07/23/21 06/10/23 Magnesium Oxide 400 mg PO DAILY 08/30/21 06/10/23 Calcium Citrate/Vitamin D3 1 tab PO BID@0900,1700 11/16/21 06/10/23 [Citracal + D Maximum Caplet] Digoxin [Lanoxin] 125 mcg PO Q48H 11/16/21 06/10/23 Nitroglycerin Sl Tabs [Nitrostat] 0.4 mg SL Q5M PRN 11/16/21 06/10/23 Adalimumab [Humira(Cf) Pen] 40 mg SQ Q14D 01/09/22 06/10/23 Apixaban [Eliquis] 5 mg PO BID@0900,1700 05/02/22 06/10/23 INSULIN LISPRO (HumaLOG) [humaLOG] 6 units SQ AC-TID 05/02/22 06/10/23 INSULIN LISPRO (HumaLOG) [humaLOG] See Protocol SQ AC-TID PRN 05/02/22 06/10/23 Multivit-Min/FA/Lycopen/Lutein 1 tab PO DAILY 05/02/22 06/10/23 [Centrum Silver Tablet] Insulin Glargine [Lantus Vial] 30 unit SQ DAILY 05/17/22 06/10/23 SILVER sulfADIAZINE Cream 1 applic TOPICAL BID PRN 06/28/22 06/10/23 [Silvadene 1% Cream] Tamsulosin [Flomax] 0.4 mg PO DAILY@1200 05/02/23 04/13/24 Bumetanide [BUMEX] 1 mg PO BID@0900,1700 09/02/22 06/10/23 Levothyroxine Sodium [Synthroid] 150 mcg PO HS@0000 09/02/22 06/10/23 traZODone HCL [Desyrel] 50 mg PO HS 12/15/22 06/10/23 Acetaminophen Tab [Tylenol] 325 mg PO QID PRN 05/15/23 06/10/23 Clotrimazole Cream [Lotrimin Cream] 1 applic TOPICAL BID PRN 05/15/23 06/10/23 Insulin Glargine [Lantus Vial] 15 unit SQ HS 05/15/23 06/10/23 Tolterodine ER [Detrol LA] 4 mg PO DAILY 05/15/23 06/10/23 metFORMIN HCL [Glucophage] 500 mg PO HS 05/25/23 06/10/23 Previous Rx's Medication Instructions Recorded Loratadine [Claritin] 10 mg PO DAILY #30 tab 05/20/22 Potassium Chloride ER [K-Dur 20] 20 meq PO BID #60 tab 05/30/23 Cyclobenzaprine [Flexeril] 10 mg PO BID 30 Days #60 tab 06/15/23 Lidocaine 5% Patch [Lidoderm] 1 each TP DAILY 30 Days #30 patch 06/15/23 Amoxic-Pot Clav 875-125Mg 1 tab PO Q12HR #20 tablet 06/16/23 [Augmentin 875-125] Gabapentin [Neurontin] 400 mg PO Q6H 30 Days #120 cap 06/22/23 oxyCODONE-APAP 7.5-325MG [Percocet 1 tab PO Q6HR PRN 30 Days #1200 tab 06/22/23 7.5-325 mg] oxyCODONE-APAP 7.5-325MG [Percocet 1 tab PO QID #120 tab 06/22/23 7.5-325 mg] Allergies Allergy/AdvReac Type Severity Reaction Status Date / Time adhesive Allergy Rash/Hives Verified 06/18/23 04:22 cephalexin [From Keflex] Allergy Rash/Hives Verified 06/18/23 04:22 grass pollen Allergy Unknown Verified 06/18/23 04:22 mold Allergy Unknown Verified 06/18/23 04:22 newspaper ink Allergy Mild Unknown Uncoded 06/18/23 04:22 Review of Systems ROS Statement: Those systems with pertinent positive or pertinent negative responses have been documented in the HPI. ROS Other: All systems not noted in ROS Statement are negative. Past Medical History Past Medical History: Atrial Fibrillation, Coronary Artery Disease (CAD), Cancer, Diabetes Mellitus, Hyperlipidemia, Hypertension, Musculoskeletal Disorder, Neurologic Disorder, Osteoarthritis (OA), Pneumonia, Renal Disease, Rheumatoid Arthritis (RA), Skin Disorder, Thyroid Disorder Additional Past Medical History / Comment(s): Morbid obesity, chronic atrial fibrillation, diabetes mellitus type 2, hypertension, hyperlipidemia, spinal stenosis, osteoarthritis, hypothyroidism, hypertension, history of skin melanoma, history of bursitis with MRSA post I&D, rheumatoid arthritis, Sjogren's disease, 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 without any indication of ILD related to RA, Fall on July 22 transfer to [facility] for MRI, then Fall on 11/16/21 History of Any Multi-Drug Resistant Organisms: MRSA Date of last positivie culture/infection: 09/02/22 MDRO Source:: Right Leg Past Surgical History: Back Surgery, Breast Surgery, Cholecystectomy, Heart Catheterization, Joint Replacement, Orthopedic Surgery Additional Past Surgical History / Comment(s): Bilateral cataracts with lens implants, arthroscopies to lt wrist, gualberto knees, gualberto ankles, gualberto hips, lt hip replacment and redone, L/R shoulder sxs, rt breast bx-benign, egd/colonoscopy, skin cancer removal L arm, Lumbar fixnation possible broken Past Anesthesia/Blood Transfusion Reactions: No Reported Reaction Additional Past Anesthesia/Blood Transfusion Reaction / Comment(s): Pt has been told not to have anesthesia metabolized by the kidneys and has neurologic Sjogren's with post anesthesia paralysis. Past Psychological History: No Psychological Hx Reported Smoking Status: Former smoker Past Alcohol Use History: None Reported Past Drug Use History: None Reported - Past Family History Mother Family Medical History: CVA/TIA Additional Family Medical History / Comment(s): RUPTURED BOWEL Father Family Medical History: Cancer, Pneumonia Additional Family Medical History / Comment(s): ASPIRATIVE PNA Sister(s) Additional Family Medical History / Comment(s): at age 34 with lupus General Exam Limitations: no limitations General appearance: alert, in no apparent distress Head exam: Present: atraumatic, normocephalic, normal inspection Eye exam: Present: normal appearance, PERRL, EOMI. Absent: scleral icterus, conjunctival injection, periorbital swelling ENT exam: Present: normal exam, mucous membranes moist Neck exam: Present: normal inspection. Absent: tenderness, meningismus, lymphadenopathy Respiratory exam: Present: normal lung sounds bilaterally. Absent: respiratory distress, wheezes, rales, rhonchi, stridor Cardiovascular Exam: Present: regular rate, normal rhythm, normal heart sounds. Absent: systolic murmur, diastolic murmur, rubs, gallop, clicks GI/Abdominal exam: Present: soft, normal bowel sounds. Absent: distended, tenderness, guarding, rebound, rigid Extremities exam: Present: normal inspection, full ROM, normal capillary refill. Absent: tenderness, pedal edema, joint swelling, calf tenderness Back exam: Present: normal inspection Neurological exam: Present: alert, oriented X3, CN II-XII intact Psychiatric exam: Present: normal affect, normal mood Skin exam: Present: warm, dry, intact, normal color. Absent: rash Course Vital Signs 06/16/23 06/17/23 22:34 01:49 Temperature 98.0 F Pulse Rate 72 83 Respiratory 20 16 Rate Blood Pressure 153/76 145/69 O2 Sat by Pulse 97 97 Oximetry - Reevaluation(s) Reevaluation #1: 06/16/23 23:58 Medical records reviewed Reevaluation #2: 06/16/23 23:58 Patient symptoms improved Reevaluation #3: 06/16/23 23:58 Patient informed of results questions answered Reevaluation #4: Was pt. sent in by a medical professional or institution (, PA, PERSONAL FINANCIAL PLANNER, urgent care, hospital, or longterm...) When possible be specific @ -no Did you speak to anyone other than the patient for history (EMS, parent, family, police, friend...)? What history was obtained from this source @ -no Did you review nursing and triage notes (agree or disagree)? Why? @ -agree Are old charts reviewed (outside hosp., previous admission, EMS record, old EKG, old radiological studies, urgent care reports/EKG's, longterm records)? Report findings @ -yes Differential Diagnosis (chest pain, altered mental status, abdominal pain women, abdominal pain men, vaginal bleeding, weakness, fever, dyspnea, syncope, headache, dizziness, GI bleed, back pain, seizure, CVA, palpatations, mental health, musculoskeletal)? @ -prior EKG interpreted by me (3pts min.). @ -no X-rays interpreted by me (1pt min.). @ -no CT interpreted by me (1pt min.). @ -no U/S interpreted by me (1pt. min.). @ -no What testing was considered but not performed or refused? (CT, X-rays, U/S, labs)? Why? @ -none What meds were considered but not given or refused? Why? @ -none Did you discuss the management of the patient with other professionals (professionals i.e. , PA, PERSONAL FINANCIAL PLANNER, lab, RT, psych nurse, mental health social worker, freight elevator operator, teacher, administrative services officer, caseworker protective services)? Give summary @ -no Was smoking cessation discussed for >3mins.? @ -no Was critical care preformed (if so, how long)? @ -no Were there social determinants of health that impacted care today? How? (Homelessness, low income, unemployed, alcoholism, drug addiction, transportation, low edu. Level, literacy, decrease access to med. care, [facility], rehab)? @ -none Was there de-escalation of care discussed even if they declined (Discuss DNR or withdrawal of care, Hospice)? DNR status @ -no What co-morbidities impacted this encounter? (DM, HTN, Smoking, COPD, CAD, Cancer, CVA, ARF, Chemo, Hep., AIDS, mental health diagnosis, sleep apnea, morbid obesity)? @ -none Was patient admitted / discharged? Hospital course, mention meds given and route, prescriptions, significant lab abnormalities, going to OR and other pertinent info. @ - 82-year-old female to ER for evaluation of acute on chronic back pain. Patient is in no acute distress here in the ER, patient will be discharged home Discharge Undiagnosed new problem with uncertain prognosis? @ -no Drug Therapy requiring intensive monitoring for toxicity (Heparin, Nitro, Insulin, Cardizem)? @ -no Were any procedures done? @ -no Diagnosis/symptom? @ -Acute on chronic pain back pain Acute, or Chronic, or Acute on Chronic? @ -Acute Uncomplicated (without systemic symptoms) or Complicated (systemic symptoms)? @ -Complicated Side effects of treatment? @ -no Exacerbation, Progression, or Severe Exacerbation? @ -exacerbation Poses a threat to life or bodily function? How? (Chest pain, [place], [place], pneumonia, PE, COPD, DKA, ARF, appy, cholecystitis, CVA, Diverticulitis, Homicidal, Suicidal, threat to staff... and all critical care pts) @ -yes with extremes of age Reevaluation #5: Differential Back Pain: Strain, zoster, cauda equina syndrome, epidural abscess, vertebral osteomyelitis, discitis, fracture, subluxation, disc herniation, DJD, spinal stenosis, dissection, AAA, pancreatitis, peptic ulcer disease, pyelonephritis, kidney stone, this is not meant to be an all-inclusive list. Medical Decision Making - Medical Decision Making 82-year-old female to ER for evaluation of acute on chronic back pain. Patient is in no acute distress here in the ER, patient will be discharged home Disposition Clinical Impression: Mechanical back pain, Mid back pain, Lumbar radiculopathy Disposition: HOME SELF-CARE Condition: Fair Instructions (If sedation given, give patient instructions): Acute Low Back Pain (ED) Is patient prescribed a controlled substance at d/c from ED?: No Referrals: Nicholas Hart MD [Primary Care Provider] - 1-2 days Time of Disposition: 23:55
[2023-06-16] MEDS: HYDROmorphone 1 MG/ML 1 ML SYRINGE IM STA (23:26)
[2023-06-17 02:13] VITALS: BP 145/69; PULSE 83; RESP 16
== END 2023-06-17 01:49 | disposition home or self-care (01) ==
LOC: EC 22:28
DX: M54.50 Low back pain, unspecified (principal); M54.16 Radiculopathy, lumbar region; Z87.891 Personal history of nicotine dependence; Z88.1 Allergy status to other antibiotic agents; Z88.8 Allergy status to other drugs, medicaments and biological substances; Z90.49 Acquired absence of other specified parts of digestive tract
CPT/HCPCS: 99283; 96372; J1170

== ENCOUNTER 2023-06-17 07:01 | Emergency (ER) | payer MEDICARE ==
--- NOTE | 2023-06-17 07:19 | ED ---
Arrhythmia/Palpitations HPI - General Chief Complaint: Arrhythmia/Palpitations Stated Complaint: AFib RVR Time Seen by Provider: 06/17/23 07:04 Source: patient, EMS Mode of arrival: EMS Limitations: no limitations - History of Present Illness Initial Comments: This patient is an 82-year-old with history of atrial fibrillation who presents to evaluation for chest pain. She states that it started between 1 and 2 hours ago. She was lying down. She noted that her heart was beating irregularly. The patient denies diaphoresis, dyspnea, syncope. Patient indicates left sided chest pain. She states that it is dull. He has not noted worsening or reli eving factors. MD Complaint: palpitations Onset/Timin -: hour(s) Context: occurred during rest Arrhythmia History: atrial fibrillation Associated Symptoms: other - Related Data Home Medications Medication Instructions Recorded Confirmed Latanoprost [Xalatan 0.005%] 1 drop BOTH EYES HS 08/11/17 06/10/23 predniSONE 10 mg PO DAILY 07/23/21 06/10/23 Magnesium Oxide 400 mg PO DAILY 08/30/21 06/10/23 Calcium Citrate/Vitamin D3 1 tab PO BID@0900,1700 11/16/21 06/10/23 [Citracal + D Maximum Caplet] Digoxin [Lanoxin] 125 mcg PO Q48H 11/16/21 06/10/23 Nitroglycerin Sl Tabs [Nitrostat] 0.4 mg SL Q5M PRN 11/16/21 06/10/23 Adalimumab [Humira(Cf) Pen] 40 mg SQ Q14D 01/09/22 06/10/23 Apixaban [Eliquis] 5 mg PO BID@0900,1700 05/02/22 06/10/23 INSULIN LISPRO (HumaLOG) [humaLOG] 6 units SQ AC-TID 05/02/22 06/10/23 INSULIN LISPRO (HumaLOG) [humaLOG] See Protocol SQ AC-TID PRN 05/02/22 06/10/23 Multivit-Min/FA/Lycopen/Lutein 1 tab PO DAILY 05/02/22 06/10/23 [Centrum Silver Tablet] Insulin Glargine [Lantus Vial] 30 unit SQ DAILY 05/17/22 06/10/23 SILVER sulfADIAZINE Cream 1 applic TOPICAL BID PRN 06/28/22 06/10/23 [Silvadene 1% Cream] Tamsulosin [Flomax] 0.4 mg PO DAILY@1200 06/28/22 06/10/23 Bumetanide [BUMEX] 1 mg PO BID@0900,1700 09/02/22 06/10/23 Levothyroxine Sodium [Synthroid] 150 mcg PO HS@0000 09/02/22 06/10/23 traZODone HCL [Desyrel] 50 mg PO HS 12/15/22 06/10/23 Acetaminophen Tab [Tylenol] 325 mg PO QID PRN 05/15/23 06/10/23 Clotrimazole Cream [Lotrimin Cream] 1 applic TOPICAL BID PRN 05/15/23 06/10/23 Insulin Glargine [Lantus Vial] 15 unit SQ HS 05/15/23 06/10/23 Tolterodine ER [Detrol LA] 4 mg PO DAILY 05/15/23 06/10/23 metFORMIN HCL [Glucophage] 500 mg PO HS 05/25/23 06/10/23 Previous Rx's Medication Instructions Recorded Loratadine [Claritin] 10 mg PO DAILY #30 tab 05/20/22 Potassium Chloride ER [K-Dur 20] 20 meq PO BID #60 tab 05/30/23 Cyclobenzaprine [Flexeril] 10 mg PO BID 30 Days #60 tab 06/15/23 Lidocaine 5% Patch [Lidoderm] 1 each TP DAILY 30 Days #30 patch 06/15/23 Amoxic-Pot Clav 875-125Mg 1 tab PO Q12HR #20 tablet 06/16/23 [Augmentin 875-125] Gabapentin [Neurontin] 400 mg PO Q6H 30 Days #120 cap 06/22/23 oxyCODONE-APAP 7.5-325MG [Percocet 1 tab PO Q6HR PRN 30 Days #1200 tab 06/22/23 7.5-325 mg] oxyCODONE-APAP 7.5-325MG [Percocet 1 tab PO QID #120 tab 06/22/23 7.5-325 mg] Allergies Allergy/AdvReac Type Severity Reaction Status Date / Time adhesive Allergy Rash/Hives Verified 06/18/23 04:22 cephalexin [From Keflex] Allergy Rash/Hives Verified 06/18/23 04:22 grass pollen Allergy Unknown Verified 06/18/23 04:22 mold Allergy Unknown Verified 06/18/23 04:22 newspaper ink Allergy Mild Unknown Uncoded 06/18/23 04:22 Review of Systems ROS Statement: Those systems with pertinent positive or pertinent negative responses have been documented in the HPI. ROS Other: All systems not noted in ROS Statement are negative. Constitutional: Denies: fever, weakness Respiratory: Denies: cough, dyspnea Cardiovascular: Reports: chest pain, palpitations, edema (Chronic). Denies: syncope Gastrointestinal: Denies: abdominal pain, vomiting, diarrhea Genitourinary: Denies: dysuria Musculoskeletal: Reports: back pain (Chronic) Skin: Denies: rash Neurological: Denies: headache, weakness, numbness Past Medical History Past Medical History: Atrial Fibrillation, Coronary Artery Disease (CAD), Cancer, Diabetes Mellitus, Hyperlipidemia, Hypertension, Musculoskeletal Disorder, Neurologic Disorder, Osteoarthritis (OA), Pneumonia, Renal Disease, Rheumatoid Arthritis (RA), Skin Disorder, Thyroid Disorder Additional Past Medical History / Comment(s): Morbid obesity, chronic atrial fibrillation, diabetes mellitus type 2, hypertension, hyperlipidemia, spinal stenosis, osteoarthritis, hypothyroidism, hypertension, history of skin melanoma, history of bursitis with MRSA post I&D, rheumatoid arthritis, Sjogren's disease, 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 without any indication of ILD related to RA, Fall on July 22 transfer to [facility] for MRI, then Fall on 11/16/21 History of Any Multi-Drug Resistant Organisms: MRSA Date of last positivie culture/infection: 09/02/22 MDRO Source:: Right Leg Past Surgical History: Back Surgery, Breast Surgery, Cholecystectomy, Heart Catheterization, Joint Replacement, Orthopedic Surgery Additional Past Surgical History / Comment(s): Bilateral cataracts with lens implants, arthroscopies to lt wrist, gualberto knees, gualberto ankles, gualberto hips, lt hip replacment and redone, L/R shoulder sxs, rt breast bx-benign, egd/colonoscopy, skin cancer removal L arm, Lumbar fixnation possible broken Past Anesthesia/Blood Transfusion Reactions: No Reported Reaction Additional Past Anesthesia/Blood Transfusion Reaction / Comment(s): Pt has been told not to have anesthesia metabolized by the kidneys and has neurologic Sjogren's with post anesthesia paralysis. Past Psychological History: No Psychological Hx Reported Smoking Status: Former smoker Past Alcohol Use History: None Reported Past Drug Use History: None Reported - Past Family History Mother Family Medical History: CVA/TIA Additional Family Medical History / Comment(s): RUPTURED BOWEL Father Family Medical History: Cancer, Pneumonia Additional Family Medical History / Comment(s): ASPIRATIVE PNA Sister(s) Additional Family Medical History / Comment(s): at age 34 with lupus General Exam Limitations: no limitations General appearance: alert, in no apparent distress Head exam: Present: atraumatic, normocephalic Eye exam: Present: normal appearance. Absent: scleral icterus, conjunctival injection Neck exam: Present: normal inspection Respiratory exam: Present: normal lung sounds bilaterally. Absent: respiratory distress, wheezes, rales, rhonchi, stridor Cardiovascular Exam: Present: tachycardia, irregular rhythm, normal heart sounds. Absent: systolic murmur, diastolic murmur, rubs, gallop GI/Abdominal exam: Present: soft. Absent: distended, tenderness, guarding, rebound, rigid, mass Extremities exam: Present: normal inspection, normal capillary refill. Absent: pedal edema, calf tenderness Back exam: Present: normal inspection. Absent: CVA tenderness (R), CVA tenderness (L) Neurological exam: Present: alert Skin exam: Present: warm, dry, intact, other (Chronic stasis changes bilateral legs). Absent: erythema Course Vital Signs 06/17/23 06/17/23 06/17/23 07:03 07:52 07:54 Temperature 97.6 F Pulse Rate 109 H 116 H 92 Respiratory 18 14 18 Rate Blood Pressure 110/88 110/88 106/78 O2 Sat by Pulse 99 99 98 Oximetry 06/17/23 06/17/23 06/17/23 08:00 08:14 08:58 Temperature Pulse Rate 88 98 83 Respiratory 12 18 16 Rate Blood Pressure 106/78 115/61 120/70 O2 Sat by Pulse 100 100 100 Oximetry 06/17/23 06/17/23 06/17/23 09:00 09:29 10:00 Temperature Pulse Rate 86 93 80 Respiratory 13 16 16 Rate Blood Pressure 120/70 133/87 128/71 O2 Sat by Pulse 100 100 98 Oximetry 06/17/23 06/17/23 06/17/23 11:01 12:00 12:23 Temperature 98.9 F Pulse Rate 85 87 Respiratory 18 16 Rate Blood Pressure 137/77 132/78 O2 Sat by Pulse 98 Oximetry EKG Findings - EKG Results: EKG: interpreted by ERMD, normal axis EKG shows: atrial fibrillation (Rate 109 bpm) - FL, Pacemaker, Normal: Myocardial infarction: anterior FL (old age or indeterminate) Medical Decision Making - Medical Decision Making The patient had chest x-ray that I interpreted as negative for acute infiltrate, pneumothorax. There is cardiomegaly. Was pt. sent in by a medical professional or institution (, [facility]IM[facility], PRODUCTION GRADER, urgent care, hospital, or intermediate...) When possible be specific @ -[No] Did you speak to anyone other than the patient for history (EMS, parent, family, police, friend...)? What history was obtained from this source @ -[No] Did you review nursing and triage notes (agree or disagree)? Why? @ -[I reviewed and agree with nursing and triage notes] Were old charts reviewed (outside hosp., previous admission, EMS record, old EKG, old radiological studies, urgent care reports/EKG's, intermediate records)? Report findings @ -[No old charts were reviewed] Differential Diagnosis (chest pain, altered mental status, abdominal pain women, abdominal pain men, vaginal bleeding, weakness, fever, dyspnea, syncope, headache, dizziness, GI bleed, back pain, seizure, CVA, palpatations, mental health, musculoskeletal)? @ -[Differential Chest Pain: Stable Angina, Unstable Angina, STEMI, NSTEMI Aortic Dissection, Pneumothorax, Musculoskeletal, Esophageal Spasm GERD, Cholecystitis, Pancreatitis, Zoster, this is not meant to be an all-inclusive list. EKG interpreted by me (3pts min.). @ -[Interpreted as above] X-rays interpreted by me (1pt min.). @ -[I interpreted as above CT interpreted by me (1pt min.). @ -[None done] U/S interpreted by me (1pt. min.). @ -[None done] What testing was considered but not performed or refused? (CT, X-rays, U/S, labs)? Why? @ -[None] What meds were considered but not given or refused? Why? @ -[None] Did you discuss the management of the patient with other professionals (professionals i.e. , PA, PRODUCTION GRADER, lab, RT, psych nurse, health care social worker, nursing informatics clinical analyst, teacher, chief client officer, supportive employment case manager)? Give summary @ -[No] Was smoking cessation discussed for >3mins.? @ -[No] Was critical care preformed (if so, how long)? @ -[Yes, 30 minutes Were there social determinants of health that impacted care today? How? (Homelessness, low income, unemployed, alcoholism, drug addiction, transportation, low edu. Level, literacy, decrease access to med. care, [facility], rehab)? @ -[No] Was there de-escalation of care discussed even if they declined (Discuss DNR or withdrawal of care, Hospice)? DNR status @ -[No] What co-morbidities impacted this encounter? (DM, HTN, Smoking, COPD, CAD, Cancer, CVA, ARF, Chemo, Hep., AIDS, mental health diagnosis, sleep apnea, morbid obesity)? @ -[Atrial fibrillation, CAD, hypertension, diabetes Was patient admitted / discharged? Hospital course, mention meds given and route, prescriptions, significant lab abnormalities, going to OR and other pertinent info. @ -Patient is an 82-year-old woman presenting to have evaluation for chest pain. She is found to be in A-fib with RVR. We did achieve rate control, and the patient's symptoms resolved. I was in the process of preparing to admit the patient when the patient informed me that she did not want to stay. She wanted to go home. She did agree to stay for second troponin which is in line with the first 1. She does have history of mild elevation of troponins. The patient wants to go home. We discussed that there is risk associated. She understands . Patient will return if any symptoms recur. Undiagnosed new problem with uncertain prognosis? @ -[No] Drug Therapy requiring intensive monitoring for toxicity (Heparin, Nitro, Insulin, Cardizem)? @ -[IV Cardizem Were any procedures done? @ -[No] Diagnosis/symptom? @ -[Atrial fibrillation with rapid ventricular rate Acute chest pain Minimally elevated troponin Acute, or Chronic, or Acute on Chronic? @ -[Acute on chronic Uncomplicated (without systemic symptoms) or Complicated (systemic symptoms)? @ -[Uncomplicated Side effects of treatment? @ -[No] Exacerbation, Progression, or Severe Exacerbation? @ -[No] Poses a threat to life or bodily function? How? (Chest pain, USA, FL, pneumonia, PE, COPD, DKA, ARF, appy, cholecystitis, CVA, Diverticulitis, Homicidal, Suicidal, threat to staff... and all critical care pts) @ -[Yes - Lab Data Result diagrams: 06/17/23 08:08 06/17/23 08:08 Lab Results 06/17/23 06/17/23 06/17/23 Range/Units 08:08 08:08 08:08 WBC 7.9 (3.8-10.6) k/uL RBC 4.14 (3.80-5.40) m/uL Hgb 11.9 (11.4-16.0) gm/dL Hct 38.5 (34.0-46.0) % MCV 93.0 (80.0-100.0) fL MCH 28.6 (25.0-35.0) pg MCHC 30.8 L (31.0-37.0) g/dL RDW 16.3 H (11.5-15.5) % Plt Count 193 (150-450) k/uL MPV 7.3 Neutrophils % 63 % Lymphocytes % 24 % Monocytes % 6 % Eosinophils % 5 % Basophils % 1 % Neutrophils # 5.0 (1.3-7.7) k/uL Lymphocytes # 1.9 (1.0-4.8) k/uL Monocytes # 0.4 (0-1.0) k/uL Eosinophils # 0.4 (0-0.7) k/uL Basophils # 0.0 (0-0.2) k/uL Hypochromasia Moderate Anisocytosis Slight PT 11.8 (10.0-12.5) sec INR 1.1 (<1.2) APTT 23.9 (22.0-30.0) sec Sodium 146 H (137-145) mmol/L Potassium 4.2 (3.5-5.1) mmol/L Chloride 103 (98-107) mmol/L Carbon Dioxide 33 H (22-30) mmol/L Anion Gap 10 mmol/L BUN 22 H (7-17) mg/dL Creatinine 0.84 (0.52-1.04) mg/dL Est GFR (CKD-EPI)AfAm 75 (>60 ml/min/1.73 sqM) Est GFR (CKD-EPI)NonAf 65 (>60 ml/min/1.73 sqM) Glucose 134 H (74-99) mg/dL Calcium 9.5 (8.4-10.2) mg/dL Magnesium 1.9 (1.6-2.3) mg/dL Total Bilirubin 0.6 (0.2-1.3) mg/dL AST 30 (14-36) U/L ALT 22 (4-34) U/L Alkaline Phosphatase 115 (38-126) U/L Troponin I (0.000-0.034) ng/mL Total Protein 7.0 (6.3-8.2) g/dL Albumin 3.5 (3.5-5.0) g/dL 06/17/23 06/17/23 Range/Units 08:08 10:40 WBC (3.8-10.6) k/uL RBC (3.80-5.40) m/uL Hgb (11.4-16.0) gm/dL Hct (34.0-46.0) % MCV (80.0-100.0) fL MCH (25.0-35.0) pg MCHC (31.0-37.0) g/dL RDW (11.5-15.5) % Plt Count (150-450) k/uL MPV Neutrophils % % Lymphocytes % % Monocytes % % Eosinophils % % Basophils % % Neutrophils # (1.3-7.7) k/uL Lymphocytes # (1.0-4.8) k/uL Monocytes # (0-1.0) k/uL Eosinophils # (0-0.7) k/uL Basophils # (0-0.2) k/uL Hypochromasia Anisocytosis PT (10.0-12.5) sec INR (<1.2) APTT (22.0-30.0) sec Sodium (137-145) mmol/L Potassium (3.5-5.1) mmol/L Chloride (98-107) mmol/L Carbon Dioxide (22-30) mmol/L Anion Gap mmol/L BUN (7-17) mg/dL Creatinine (0.52-1.04) mg/dL Est GFR (CKD-EPI)AfAm (>60 ml/min/1.73 sqM) Est GFR (CKD-EPI)NonAf (>60 ml/min/1.73 sqM) Glucose (74-99) mg/dL Calcium (8.4-10.2) mg/dL Magnesium (1.6-2.3) mg/dL Total Bilirubin (0.2-1.3) mg/dL AST (14-36) U/L ALT (4-34) U/L Alkaline Phosphatase (38-126) U/L Troponin I 0.043 H* 0.036 H* (0.000-0.034) ng/mL Total Protein (6.3-8.2) g/dL Albumin (3.5-5.0) g/dL Disposition Clinical Impression: Atrial fibrillation with RVR, Mid back pain Disposition: HOME SELF-CARE Condition: Good Instructions (If sedation given, give patient instructions): A-fib (Atrial Fibrillation) (ED), Chronic Back Pain (DC) Is patient prescribed a controlled substance at d/c from ED?: No Referrals: Nicholas Hart MD [Primary Care Provider] - 1-2 days
[2023-06-17] MEDS: DILTIAZEM 125 MG in SODIUM CHLORIDE 0.9% 100 ML IV SCH (07:55)
[2023-06-17] MEDS: SODIUM CHLORIDE 0.9% 1,000 ML IV STA (07:56)
[2023-06-17] MEDS: DILTIAZEM DRIP BOLUS FROM BAG 1 MG SOLN IV ONE (07:59)
[2023-06-17 08:22] LABS: Anisocytosis Slight; Basophils % (A) 1 %; Eosinophils # (A) 0.4 k/uL (0-0.7); Eosinophils % (A) 5 %; HCT 38.5 % (34.0-46.0); HGB 11.9 gm/dL (11.4-16.0); Hypochromasia Moderate; Lymphocytes # (A) 1.9 k/uL (1.0-4.8); Lymphocytes % (A) 24 %; MCH 28.6 pg (25.0-35.0); MCHC 30.8 g/dL (31.0-37.0); Mean Platelet Volume 7.3; Monocytes # (A) 0.4 k/uL (0-1.0); Monocytes % (A) 6 %; Neutrophils % (A) 63 %; Platelet Count 193 k/uL (150-450); RBC 4.14 m/uL (3.80-5.40); RDW 16.3 % (11.5-15.5); WBC 7.9 k/uL (3.8-10.6)
[2023-06-17 08:34] LABS: ALT 22 U/L (4-34); AST 30 U/L (14-36); African American GFR (CKD) 75 (>60 ml/min/1.73 sqM); Albumin 3.5 g/dL (3.5-5.0); Alkaline Phosphatase 115 U/L (38-126); Anion Gap 10 mmol/L; Blood Urea Nitrogen 22 mg/dL (7-17); Calcium 9.5 mg/dL (8.4-10.2); Carbon Dioxide 33 mmol/L (22-30); Chloride 103 mmol/L (98-107); Glucose 134 mg/dL (74-99); Magnesium 1.9 mg/dL (1.6-2.3); Non-African American GFR(CKD) 65 (>60 ml/min/1.73 sqM); Sodium 146 mmol/L (137-145); Total Bilirubin 0.6 mg/dL (0.2-1.3)
[2023-06-17 08:41] LABS: Potassium 4.2 mmol/L (3.5-5.1)
--- NOTE | 2023-06-17 08:48 | XR ---
EXAMINATION TYPE: XR chest 1V portable DATE OF EXAM: 06/17/2023 Comparison: 05/25/2023 Clinical History: 82-year-old female dysrhythmia Findings: ACDF hardware. Heart mildly enlarged. Atherosclerotic arch calcifications. Hyperinflation and mild in terstitial density without consolidation or pleural effusion. Impression: Cardiomegaly and chronic changes, possible underlying COPD. No focal infiltrate or pulmonary edema.
[2023-06-17 08:52] LABS: INR 1.1 (<1.2); Prothrombin Time 11.8 sec (10.0-12.5)
[2023-06-17 08:53] LABS: Partial Thromboplastin Time 23.9 sec (22.0-30.0)
[2023-06-17] MEDS: traMADol 50 MG TAB PO STA (09:27)
[2023-06-17 10:22] VITALS: RESP 16
[2023-06-17 12:28] VITALS: BP 132/78; PULSE 87; TEMP 98.9
[2023-06-18] MEDS ORDERED: DIGOXIN 125 MCG TAB PO SCH (09:00)
== END 2023-06-17 13:25 | disposition home or self-care (01) ==
LOC: EC 07:01
DX: I48.91 Unspecified atrial fibrillation (principal); M54.6 Pain in thoracic spine; I10 Essential (primary) hypertension; E11.9 Type 2 diabetes mellitus without complications; Z87.891 Personal history of nicotine dependence
CPT/HCPCS: 36415; 71045; 80053; 83735; 84484; 85025; 85610; 85730; 93005; 96365; 96366; 99291

== ENCOUNTER 2023-06-18 04:16 | Emergency (ER) | payer MEDICARE ==
[2023-06-18 04:56] VITALS: RESP 18; TEMP 97.5
[2023-06-18] MEDS: MORPHINE SULFATE 4 MG/ML SYRINGE IM STA (04:59)
--- NOTE | 2023-06-18 05:30 | ED ---
General Adult HPI - General Chief complaint: Back Pain/Injury Stated complaint: Back Pain Time Seen by Provider: 06/18/23 04:31 Source: patient, EMS, RN notes reviewed, old records reviewed Mode of arrival: EMS Limitations: no limitations - History of Present Illness Initial comments: Is an 82-year-old female who presents emergency department complaining of acute on chronic back pain. Has visited multiple times over the last few weeks for this right-sided back pain. Does have a pain contract and is on oxycodone at home as well as other pain medications. States that is not controlled. No new injury or trauma. Does have a history of prior degenerative disc disease as well as back surgeries. Denies any radiation of the pain. States it is located just right of midline in the lower lumbar spine. Worse with movement. No dysuria or hematuria. No saddle paresthesias. No bowel or urinary incontinence or retention. No lower extremity weakness that is new. No other acute complaints at this time. Presents for reevaluation for pain control. Had a lumbar CT performed within the last week to evaluate the patient for this pain.D enies any chest pain, shortness of breath, fevers, chills, cough, abdominal pain. Presents for further evaluation. - Related Data Home Medications Medication Instructions Recorded Confirmed Latanoprost [Xalatan 0.005%] 1 drop BOTH EYES HS 08/11/17 06/10/23 predniSONE 10 mg PO DAILY 07/23/21 06/10/23 Magnesium Oxide 400 mg PO DAILY 08/30/21 06/10/23 Calcium Citrate/Vitamin D3 1 tab PO BID@0900,1700 11/16/21 06/10/23 [Citracal + D Maximum Caplet] Digoxin [Lanoxin] 125 mcg PO Q48H 11/16/21 06/10/23 Nitroglycerin Sl Tabs [Nitrostat] 0.4 mg SL Q5M PRN 11/16/21 06/10/23 Adalimumab [Humira(Cf) Pen] 40 mg SQ Q14D 01/09/22 06/10/23 Apixaban [Eliquis] 5 mg PO BID@0900,1700 05/02/22 06/10/23 INSULIN LISPRO (HumaLOG) [humaLOG] 6 units SQ AC-TID 05/02/22 06/10/23 INSULIN LISPRO (HumaLOG) [humaLOG] See Protocol SQ AC-TID PRN 05/02/22 06/10/23 Multivit-Min/FA/Lycopen/Lutein 1 tab PO DAILY 05/02/22 06/10/23 [Centrum Silver Tablet] Insulin Glargine [Lantus Vial] 30 unit SQ DAILY 05/17/22 06/10/23 SILVER sulfADIAZINE Cream 1 applic TOPICAL BID PRN 06/28/22 06/10/23 [Silvadene 1% Cream] Tamsulosin [Flomax] 0.4 mg PO DAILY@1200 06/28/22 06/10/23 Bumetanide [BUMEX] 1 mg PO BID@0900,1700 09/02/22 06/10/23 Levothyroxine Sodium [Synthroid] 150 mcg PO HS@0000 09/02/22 06/10/23 traZODone HCL [Desyrel] 50 mg PO HS 12/15/22 06/10/23 Acetaminophen Tab [Tylenol] 325 mg PO QID PRN 05/15/23 06/10/23 Clotrimazole Cream [Lotrimin Cream] 1 applic TOPICAL BID PRN 05/15/23 06/10/23 Gabapentin [Neurontin] 400 mg PO Q6H 05/15/23 06/10/23 Insulin Glargine [Lantus Vial] 15 unit SQ HS 05/15/23 06/10/23 Tolterodine ER [Detrol LA] 4 mg PO DAILY 05/15/23 06/10/23 metFORMIN HCL [Glucophage] 500 mg PO HS 05/25/23 06/10/23 Previous Rx's Medication Instructions Recorded Loratadine [Claritin] 10 mg PO DAILY #30 tab 05/20/22 Potassium Chloride ER [K-Dur 20] 20 meq PO BID #60 tab 05/30/23 oxyCODONE-APAP 7.5-325MG [Percocet 1 tab PO QID #120 tab 06/13/23 7.5-325 mg] Cyclobenzaprine [Flexeril] 10 mg PO BID 30 Days #60 tab 06/15/23 Lidocaine 5% Patch [Lidoderm] 1 each TP DAILY 30 Days #30 patch 06/15/23 Amoxic-Pot Clav 875-125Mg 1 tab PO Q12HR #20 tablet 06/16/23 [Augmentin 594-957] Allergies Allergy/AdvReac Type Severity Reaction Status Date / Time adhesive Allergy Rash/Hives Verified 06/18/23 04:22 cephalexin [From Keflex] Allergy Rash/Hives Verified 06/18/23 04:22 grass pollen Allergy Unknown Verified 06/18/23 04:22 mold Allergy Unknown Verified 06/18/23 04:22 newspaper ink Allergy Mild Unknown Uncoded 06/18/23 04:22 Review of Systems ROS Statement: Those systems with pertinent positive or pertinent negative responses have been documented in the HPI. Review of Systems: CONST: Denies fever EYES: Denies blurry vision ENT: Denies nasal congestion C/V: Denies Chest pain RESP: Denies shortness of breath GI: Denies abdominal pain : Denies dysuria SKIN: Denies rash. MSK: Endorses back pain NEURO: Denies headache ROS Other: All systems not noted in ROS Statement are negative. Past Medical History Past Medical History: Atrial Fibrillation, Coronary Artery Disease (CAD), Cancer, Diabetes Mellitus, Hyperlipidemia, Hypertension, Musculoskeletal Disorder, Neurologic Disorder, Osteoarthritis (OA), Pneumonia, Renal Disease, Rheumatoid Arthritis (RA), Skin Disorder, Thyroid Disorder Additional Past Medical History / Comment(s): Morbid obesity, chronic atrial fibrillation, diabetes mellitus type 2, hypertension, hyperlipidemia, spinal stenosis, osteoarthritis, hypothyroidism, hypertension, history of skin melanoma, history of bursitis with MRSA post I&D, rheumatoid arthritis, Sjogren's disease, 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 without any indication of ILD related to RA, Fall on July 22 transfer to [facility] for MRI, then Fall on 11/16/21 History of Any Multi-Drug Resistant Organisms: MRSA Date of last positivie culture/infection: 09/02/22 MDRO Source:: Right Leg Past Surgical History: Back Surgery, Breast Surgery, Cholecystectomy, Heart Catheterization, Joint Replacement, Orthopedic Surgery Additional Past Surgical History / Comment(s): Bilateral cataracts with lens implants, arthroscopies to lt wrist, gualberto knees, gualberto ankles, gualberto hips, lt hip replacment and redone, L/R shoulder sxs, rt breast bx-benign, egd/colonoscopy, skin cancer removal L arm, Lumbar fixnation possible broken Past Anesthesia/Blood Transfusion Reactions: No Reported Reaction Additional Past Anesthesia/Blood Transfusion Reaction / Comment(s): Pt has been told not to have anesthesia metabolized by the kidneys and has neurologic Sjogren's with post anesthesia paralysis. Past Psychological History: No Psychological Hx Reported Smoking Status: Former smoker Past Alcohol Use History: None Reported Past Drug Use History: None Reported - Past Family History Mother Family Medical History: CVA/TIA Additional Family Medical History / Comment(s): RUPTURED BOWEL Father Family Medical History: Cancer, Pneumonia Additional Family Medical History / Comment(s): ASPIRATIVE PNA Sister(s) Additional Family Medical History / Comment(s): at age 34 with lupus General Exam - General Exam Comments Initial Comments: General: Appears in no acute distress. Patient is obese. HEAD: Normal with no signs of head trauma. EYES: PERRLA, EOMI, conjunctiva normal, no discharge. ENT: Hearing grossly intact, normal oropharynx. RESPIRATORY: Clear breath sounds bilaterally. No wheezes, rales, or rhonchi. C/V: Irregular rate and rhythm. S1 and S2 auscultated,peripheral pulses 2+ and intact throughout ABD: Abd is soft, nontender, nondistended EXT: Normal range of motion, no obvious deformity. No midline tenderness to palpation of the cervical, lumbar, thoracic spines. No step-offs or deformities appreciated. Patient does have paraspinal muscle tenderness of the right lower lumbar spine. SKIN: No rashes or lesions observed on exposed skin. NEURO: Alert and oriented x 4. No obvious focal acute deficits. Limitations: no limitations Course Vital Signs 06/18/23 04:18 Temperature 97.5 F L Pulse Rate 69 Respiratory 18 Rate Blood Pressure 122/85 O2 Sat by Pulse 94 L Oximetry Medical Decision Making - Medical Decision Making Was pt. sent in by a medical professional or institution (, YEIMI, ENVIRONMENTAL ENGINEERING ASSISTANT, urgent care, hospital, or alf...) When possible be specific @ -No Did you speak to anyone other than the patient for history (EMS, parent, family, police, friend...)? What history was obtained from this source @ -No Did you review nursing and triage notes (agree or disagree)? Why? @ -I reviewed and agree with nursing and triage notes Were old charts reviewed (outside hosp., previous admission, EMS record, old EKG, old radiological studies, urgent care reports/EKG's, alf records)? Report findings @ -Old charts reviewed Differential Diagnosis (chest pain, altered mental status, abdominal pain women, abdominal pain men, vaginal bleeding, weakness, fever, dyspnea, syncope, headache, dizziness, GI bleed, back pain, seizure, CVA, palpatations, mental health, musculoskeletal)? @ -Differential Musculoskeletal Muscular strain, contusion, ligament sprain, fracture, arthritis, septic arthritis, bursitis, cellulitis, muscle spasm, nerve compression, DVT, arterial occlusion, herpes zoster, electrolyte abnormality, tumor.... This is not meant to be in all inclusive list EKG interpreted by me (3pts min.). @ -None done X-rays interpreted by me (1pt min.). @ -None done CT interpreted by me (1pt min.). @ -None done U/S interpreted by me (1pt. min.). @ -None done What testing was considered but not performed or refused? (CT, X-rays, U/S, labs)? Why? @ -Considered imaging, however patient's pain is chronic and patient did recently have imaging completed of the lumbar spine. Lumbar spine CT from June 09 of this year revealed degeneration, posterior fusion of L2-S1. No acute findings. What meds were considered but not given or refused? Why? @ -None Did you discuss the management of the patient with other professionals (shakira palencia i.e. , PA, ENVIRONMENTAL ENGINEERING ASSISTANT, lab, RT, psych nurse, 7th grade social studies teacher, tile machine operator, teacher, motorized squad commanding officer, pillowcase cutter)? Give summary @ -No Was smoking cessation discussed for >3mins.? @ -No Was critical care preformed (if so, how long)? @ -No Were there social determinants of health that impacted care today? How? (Homelessness, low income, unemployed, alcoholism, drug addiction, transportation, low edu. Level, literacy, decrease access to med. care, skilled nursing, rehab)? @ -No Was there de-escalation of care discussed even if they declined (Discuss DNR or withdrawal of care, Hospice)? DNR status @ -No What co-morbidities impacted this encounter? (DM, HTN, Smoking, COPD, CAD, Cancer, CVA, ARF, Chemo, Hep., AIDS, mental health diagnosis, sleep apnea, morbid obesity)? @ -Chronic pain Was patient admitted / discharged? Hospital course, mention meds given and route, prescriptions, significant lab abnormalities, going to OR and other pertinent info. @ -Patient presents with atraumatic chronic back pain. Has been seen here multiple times in the last 10 days for similar complaints. CT imaging obtained within the last 10 days shows no obvious acute findings of the spine to account for the patient's symptoms. She has no red flag symptoms suggestive of cauda equina syndrome at this time. Vital signs are within acceptable limits. Patient was in agreement this plan. I did discuss with the patient that as she is on chronic pain meds I cannot provide her any prescriptions. She states she does have follow-up with her pain management clinic this upcoming week but did not think she can make it until then. Has no other acute complaints. She was in agreement with obtaining urinalysis and no imaging at this time as she has no acute complaints other than her chronic back pain. She will be given a dose of IM analgesia medications. Patient was straight cathed for urine which was clean showed no evidence of acute infection. On reevaluation, patient's pain is improved, she is sitting up. We discussed the results. She was in agreement with discharge home. Patient is under the impression that she is supposed to come to the emergency department if she has breakthrough pain. I recommended she clarify this with her pain specialist which she states she will do. Strict return precautions discussed. I instructed the patient to follow up with their PCP in the next 1-3 days. I ex plained that the patient should return to the emergency department if they experience any worsening symptoms. Strict return precautions were discussed with the patient. The patient expressed understanding of these instructions. I answered all questions that the patient had. The patient was discharged home in good condition with their prescriptions and follow up information. Undiagnosed new problem with uncertain prognosis? @ -No Drug Therapy requiring intensive monitoring for toxicity (Heparin, Nitro, Insulin, Cardizem)? @ -No Were any procedures done? @ -No Diagnosis/symptom? @ -Chronic low back pain Acute, or Chronic, or Acute on Chronic? @ -Chronic Uncomplicated (without systemic symptoms) or Complicated (systemic symptoms)? @ -Uncomplicated Side effects of treatment? @ -None Exacerbation, Progression, or Severe Exacerbation] @ -No Poses a threat to life or bodily function? @ -No - Lab Data Lab Results 06/18/23 Range/Units 05:39 Urine Color Yellow Urine Appearance Clear (Clear) Urine pH 5.5 (5.0-8.0) Ur Specific [place] 1.025 (1.001-1.035) Urine Protein Negative (Negative) Urine Glucose (UA) Negative (Negative) Urine Ketones Negative (Negative) Urine Blood Negative (Negative) Urine Nitrite Negative (Negative) Urine Bilirubin Negative (Negative) Urine Urobilinogen <2.0 (<2.0) mg/dL Ur Leukocyte Esterase Trace H (Negative) Urine RBC 2 (0-5) /hpf Urine WBC 3 (0-5) /hpf Ur Squamous Epith Cells 2 (0-4) /hpf Amorphous Sediment Rare H (None) /hpf Hyaline Casts 11 H (0-2) /lpf Urine Mucus Rare H (None) /hpf Disposition Clinical Impression: Chronic back pain Disposition: HOME SELF-CARE Condition: Good Instructions (If sedation given, give patient instructions): Chronic Pain (ED) Additional Instructions: follow up with your pain specialist. Is patient prescribed a controlled substance at d/c from ED?: No Referrals: Nicholas Hart MD [Primary Care Provider] - 1-2 days Time of Disposition: 06:00
[2023-06-18 05:57] LABS: Amorphous Sediment,Urine Rare /hpf; Appearance,Urine Clear (Clear); Bilirubin,Urine Negative (Negative); Blood,Urine Negative (Negative); Color,Urine Yellow; Glucose,Urine (UA) Negative (Negative); Hyaline Casts,Urine 11 /lpf (0-2); Ketones,Urine Negative (Negative); Leukocyte Esterase,Urine Trace (Negative); Mucus,Urine Rare /hpf; Nitrite,Urine Negative (Negative); PH, Urine 5.5 (5.0-8.0); Protein,Urine Negative (Negative); RBC,Urine 2 /hpf (0-5); Specific Gravity,Urine 1.025 (1.001-1.035); Squamous Epithelial Cell,Urine 2 /hpf (0-4); Urobilinogen,Urine <2.0 mg/dL (<2.0); WBC,Urine 3 /hpf (0-5)
[2023-06-18 06:21] VITALS: BP 126/69; PULSE 65
== END 2023-06-18 06:30 | disposition home or self-care (01) ==
LOC: EC 04:16
DX: G89.29 Other chronic pain (principal); M54.50 Low back pain, unspecified; Z91.048 Other nonmedicinal substance allergy status; Z88.1 Allergy status to other antibiotic agents; Z91.09 Other allergy status, other than to drugs and biological substances; Z88.8 Allergy status to other drugs, medicaments and biological substances; Z87.891 Personal history of nicotine dependence
CPT/HCPCS: 99284; 96372; 81001; J2270

== ENCOUNTER → 2023-06-22 | Outpatient (CLI) | payer MEDICARE ==
[2023-06-22 14:43] VITALS: BP 130/71; PULSE 82; RESP 15; TEMP 98.4
--- NOTE | 2023-06-22 15:10 | P.PAINPG ---
PQRS Measure Charge Sheet Comment: HISTORY OF PRESENT ILLNESS: A 82 yr old wheelchair bound female w at side presents today w severe and chronic LBP x 2 yrs secondary to post laminectomy syndrome for evaluation. Pt states pain level is provoked at 8 /10 in intensity, constant, localized in the lumbar spine, predominantly axial, achy in character without shooting pain. Pain is provoked by standing for periods of 15 min or more. Pain is alleviated by PT x 8 wks in Sep 2022 w minimal relief, medications, topical Biofreeze, Lidoderm, heat, ice, repositioning and rest. Oswestry axial pain score at 35. Interventional procedures include Medications include Percocet 7.5/325mg #120, Neurontin 400mg #120, Lidoderm , Robaxin 750mg #60, Biofreeze Gel REVIEW OF ORGAN SYSTEMS: CONSTITUTIONAL: No fevers or chills. No recent weight loss. NEUROLOGICAL: + numbness and tingling along the distal extremities. No seizure disorders or headaches. MUSCULOSKELETAL: + pain PSYCHIATRIC: Denies current depression or suicidal thoughts. Physical Examinations : Constitutional : Cooperative , not in acute distress . Neurologic : Cranial nerve II to XII intact. No focal neurological deficits. Psychiatric : alert & oriented x 3. Matching mood & appropriate affect. Judgment & insight intact. Musculoskeletal : Cervical Spine Motor strength in the deltoid and bic eps: Normal right side. Normal Left side Motor strength biceps and the wrist extensors: Normal right side . Normal left side Motor strength in the triceps muscle: Normal right side. Normal left side Deep tendon reflexes: Normal at the biceps. Normal at Brachioradialis. Normal at triceps Vertebral body tenderness to deep palpation over Cervical facet loading test: positive bilaterally Spurling test: positive bilaterally Neck distraction test: positive bilaterally Minesh sign: positive bilaterally Lumbar spine Motor strength lower extremities ,thigh and legs 5/5 Right side , 5/5 Left side Deep tendon reflexes : Normal Knee Jerk. Normal Ankle Jerk Vertebral body tenderness over L5 [place] Test positive L5-S1 Lumbar facet Loading Test: positive Right / positive Left Range of motion of the lumbar spine Flexion 30 degrees, extension 10 degrees Straight Leg Raise test: Left/ Right positive at degree Lindsey test: positive right / positive left. Severe tenderness over the Sacroiliac joint on the Right / Left sides Gaenslen test: positive bilaterally Seated flexion test: positive bilatera lly. Sacral spine : Severe tenderness over the Sacroiliac joint: right side / left side Range of motion: Flexion of the lumbar spine <60 degrees Range of motion: Extension of the lumbar spine <20 degrees Gaenslen's Test positive Lindsey test: positive right side / left side Thigh Thrust Test Sacral Thrust Test Imaging: MRI noncontrast Lumbar spine from 03/09/23 reviewed Assessment/ Plan : Lumbar post laminectomy syndrome Recommendation of Caudal ASHLEY. May need a series of injections for optimal pain relief. Risks, benefits of proceudre discussed and pt verbalized understanding. Protocol for discontinuation/ continuation of medications tiffany procedure discussed. Percocet 7.5/325mg #120, Neurontin 400mg #120, Robaxin 750mg #60 w 1 RF. Narcotic/ opiate agreement signed 01/05/23 Use, side effects, adverse reactions and safe storage discussed. Pt and at side acknowledged understanding. All questions answered. I have spent greater than 30 minutes on patient care today. Dr Robles was available by phone for the evaluation of this patient. The time was used to r eview the medical records including relevant urine studies and Prescription history (MAPs), review of the available imaging, evaluation and examination of the patient, coordination of care with the medical staff and if applicable referring physicians, as well as creation of the medical record PQRS Narrative: Smoking Status Former smoker Narcotic Agreement Date Signed 01/05/23 Hx Alcohol Use (MH) No Home Medications: Ambulatory Orders Latanoprost [Xalatan 0.005%] 1 drop BOTH EYES HS 08/11/17 predniSONE 10 mg PO DAILY 07/23/21 Magnesium Oxide 400 mg PO DAILY 08/30/21 Calcium Citrate/Vitamin D3 [Citracal + D Maximum Caplet] 1 tab PO BID@0900,1700 11/16/21 Digoxin [Lanoxin] 125 mcg PO Q48H 11/16/21 Nitroglycerin Sl Tabs [Nitrostat] 0.4 mg SL Q5M PRN 11/16/21 Adalimumab [Humira(Cf) Pen] 40 mg SQ Q14D 01/09/22 Apixaban [Eliquis] 5 mg PO BID@0900,1700 05/02/22 INSULIN LISPRO (HumaLOG) [humaLOG] 6 units SQ AC-TID 05/02/22 INSULIN LISPRO (HumaLOG) [humaLOG] See Protocol SQ AC-TID PRN 05/02/22 Multivit-Min/FA/Lycopen/Lutein [Centrum Silver Tablet] 1 tab PO DAILY 05/02/22 Insulin Glargine [Lantus Vial] 30 unit SQ DAILY 05/17/22 Loratadine [Claritin] 10 mg PO DAILY #30 tab 05/20/22 SILVER sulfADIAZINE Cream [Silvadene 1% Cream] 1 applic TOPICAL BID PRN 06/28/22 Tamsulosin [Flomax] 0.4 mg PO DAILY@1200 06/28/22 Bumetanide [BUMEX] 1 mg PO BID@0900,1700 09/02/22 Levothyroxine Sodium [Synthroid] 150 mcg PO HS@0000 09/02/22 traZODone HCL [Desyrel] 50 mg PO HS 12/15/22 Acetaminophen Tab [Tylenol] 325 mg PO QID PRN 05/15/23 Clotrimazole Cream [Lotrimin Cream] 1 applic TOPICAL BID PRN 05/15/23 Gabapentin [Neurontin] 400 mg PO Q6H 05/15/23 Insulin Glargine [Lantus Vial] 15 unit SQ HS 05/15/23 Tolterodine ER [Detrol LA] 4 mg PO DAILY 05/15/23 metFORMIN HCL [Glucophage] 500 mg PO HS 05/25/23 Potassium Chloride ER [K-Dur 20] 20 meq PO BID #60 tab 05/30/23 oxyCODONE-APAP 7.5-325MG [Percocet 7.5-325 mg] 1 tab PO QID #120 tab 06/13/23 Cyclobenzaprine [Flexeril] 10 mg PO BID 30 Days #60 tab 06/15/23 Lidocaine 5% Patch [Lidoderm] 1 each TP DAILY 30 Days #30 patch 06/15/23 Amoxic-Pot Clav 875-125Mg [Augmentin 875-125] 1 tab PO Q12HR #20 tablet 06/16/23 Controlled Substance Measures - Controlled Substance Measures Is patient prescribed a controlled substance at discharge?: Yes When asked, does pt state using other controlled substances?: No If prescribed controlled substance>3 days was MAPS reviewed?: Yes
== END ==
LOC: PNWHC3 13:19
PROVIDERS: ATTEND Specialist
DX: M96.1 Postlaminectomy syndrome, not elsewhere classified (principal); M47.816 Spondylosis without myelopathy or radiculopathy, lumbar region; G89.29 Other chronic pain; Z87.891 Personal history of nicotine dependence; Z91.048 Other nonmedicinal substance allergy status; Z88.1 Allergy status to other antibiotic agents; Z91.09 Other allergy status, other than to drugs and biological substances; Z88.8 Allergy status to other drugs, medicaments and biological substances
CPT/HCPCS: 99211

== ENCOUNTER 2023-06-27 12:53 | Emergency (ER) | payer MEDICARE ==
[2023-06-27] MEDS: LIDOCAINE 1%-EPI 1:100,000 20 ML VIAL SQ STA (13:10)
--- NOTE | 2023-06-27 13:14 | ED ---
General Adult HPI - General Chief complaint: Wound/Laceration Stated complaint: R Leg Laceration Time Seen by Provider: 06/27/23 12:54 Source: patient Mode of arrival: wheelchair Limitations: no limitations - History of Present Illness Initial comments: Dictation was produced using [employer] dictation software. please excuse any grammatical, word or spelling errors. Chief Complaint: 82-year-old female presents to the emergency department with right lower extremity wound History of Present Illness: Patient 82-year-old female she was leaning over to try and move a door when that the corner of the door hit her in the right grullon causing a laceration. Patient states her tetanus is up-to-date. Denies any numbness tingling paresthesias to the lower extremities. The ROS documented in this emergency department record has been reviewed and confirmed by me. Those systems with pertinent positive or negative responses have been documented in the HPI. All other systems are other negative and/or noncontributory. - Related Data Home Medications Medication Instructions Recorded Confirmed Latanoprost [Xalatan 0.005%] 1 drop BOTH EYES HS 08/11/17 06/10/23 predniSONE 10 mg PO DAILY 07/23/21 06/10/23 Magnesium Oxide 400 mg PO DAILY 08/30/21 06/10/23 Calcium Citrate/Vitamin D3 1 tab PO BID@0900,1700 11/16/21 06/10/23 [Citracal + D Maximum Caplet] Digoxin [Lanoxin] 125 mcg PO Q48H 11/16/21 06/10/23 Nitroglycerin Sl Tabs [Nitrostat] 0.4 mg SL Q5M PRN 11/16/21 06/10/23 Adalimumab [Humira(Cf) Pen] 40 mg SQ Q14D 01/09/22 06/10/23 Apixaban [Eliquis] 5 mg PO BID@0900,1700 05/02/22 06/10/23 INSULIN LISPRO (HumaLOG) [humaLOG] 6 units SQ AC-TID 05/02/22 06/10/23 INSULIN LISPRO (HumaLOG) [humaLOG] See Protocol SQ AC-TID PRN 05/02/22 06/10/23 Multivit-Min/FA/Lycopen/Lutein 1 tab PO DAILY 05/02/22 06/10/23 [Centrum Silver Tablet] Insulin Glargine [Lantus Vial] 30 unit SQ DAILY 05/17/22 06/10/23 SILVER sulfADIAZINE Cream 1 applic TOPICAL BID PRN 06/28/22 06/10/23 [Silvadene 1% Cream] Tamsulosin [Flomax] 0.4 mg PO DAILY@1200 06/28/22 06/10/23 Bumetanide [BUMEX] 1 mg PO BID@0900,1700 09/02/22 06/10/23 Levothyroxine Sodium [Synthroid] 150 mcg PO HS@0000 09/02/22 06/10/23 traZODone HCL [Desyrel] 50 mg PO HS 12/15/22 06/10/23 Acetaminophen Tab [Tylenol] 325 mg PO QID PRN 05/15/23 06/10/23 Clotrimazole Cream [Lotrimin Cream] 1 applic TOPICAL BID PRN 05/15/23 06/10/23 Insulin Glargine [Lantus Vial] 15 unit SQ HS 05/15/23 06/10/23 Tolterodine ER [Detrol LA] 4 mg PO DAILY 05/15/23 06/10/23 metFORMIN HCL [Glucophage] 500 mg PO HS 05/25/23 06/10/23 Previous Rx's Medication Instructions Recorded Loratadine [Claritin] 10 mg PO DAILY #30 tab 05/20/22 Potassium Chloride ER [K-Dur 20] 20 meq PO BID #60 tab 05/30/23 Cyclobenzaprine [Flexeril] 10 mg PO BID 30 Days #60 tab 06/15/23 Lidocaine 5% Patch [Lidoderm] 1 each TP DAILY 30 Days #30 patch 06/15/23 Amoxic-Pot Clav 875-125Mg 1 tab PO Q12HR #20 tablet 06/16/23 [Augmentin 875-125] Gabapentin [Neurontin] 400 mg PO Q6H 30 Days #120 cap 06/22/23 oxyCODONE-APAP 7.5-325MG [Percocet 1 tab PO Q6HR PRN 30 Days #1200 tab 06/22/23 7.5-325 mg] oxyCODONE-APAP 7.5-325MG [Percocet 1 tab PO QID #120 tab 06/22/23 7.5-325 mg] clindamycin HCL [Cleocin] 300 mg PO Q6HR 5 Days #20 cap 06/27/23 Allergies Allergy/AdvReac Type Severity Reaction Status Date / Time adhesive Allergy Rash/Hives Verified 06/18/23 04:22 cephalexin [From Keflex] Allergy Rash/Hives Verified 06/18/23 04:22 grass pollen Allergy Unknown Verified 06/18/23 04:22 mold Allergy Unknown Verified 06/18/23 04:22 newspaper ink Allergy Mild Unknown Uncoded 06/18/23 04:22 Review of Systems ROS Statement: Those systems with pertinent positive or pertinent negative responses have been documented in the HPI. ROS Other: All systems not noted in ROS Statement are negative. Past Medical History Past Medical History: Atrial Fibrillation, Coronary Artery Disease (CAD), Cancer, Diabetes Mellitus, Hyperlipidemia, Hypertension, Musculoskeletal Disorder, Neurologic Disorder, Osteoarthritis (OA), Pneumonia, Renal Disease, Rheumatoid Arthritis (RA), Skin Disorder, Thyroid Disorder Additional Past Medical History / Comment(s): Morbid obesity, chronic atrial fibrillation, diabetes mellitus type 2, hypertension, hyperlipidemia, spinal stenosis, osteoarthritis, hypothyroidism, hypertension, history of skin melanoma, history of bursitis with MRSA post I&D, rheumatoid arthritis, Sjogren's disease, 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 without any indication of ILD related to RA, Fall on July 22 transfer to [facility] for MRI, then Fall on 11/16/21 History of Any Multi-Drug Resistant Organisms: MRSA Date of last positivie culture/infection: 09/02/22 MDRO Source:: Right Leg Past Surgical History: Back Surgery, Breast Surgery, Cholecystectomy, Heart Catheterization, Joint Replacement, Orthopedic Surgery Additional Past Surgical History / Comment(s): Bilateral cataracts with lens implants, arthroscopies to lt wrist, gualberto knees, gualberto ankles, ugalberto hips, lt hip replacment and redone, L/R shoulder sxs, rt breast bx-benign, egd/colonoscopy, skin cancer removal L arm, Lumbar fixnation possible broken Past Anesthesia/Blood Transfusion Reactions: No Reported Reaction Additional Past Anesthesia/Blood Transfusion Reaction / Comment(s): Pt has been told not to have anesthesia metabolized by the kidneys and has neurologic Sjogren's with post anesthesia paralysis. Past Psychological History: No Psychological Hx Reported Smoking Status: Former smoker Past Alcohol Use History: None Reported Past Drug Use History: None Reported - Past Family History Mother Family Medical History: CVA/TIA Additional Family Medical History / Comment(s): RUPTURED BOWEL Father Family Medical History: Cancer, Pneumonia Additional Family Medical History / Comment(s): ASPIRATIVE PNA Sister(s) Additional Family Medical History / Comment(s): at age 34 with lupus General Exam - General Exam Comments Initial Comments: General: Well-appearing, nontoxic, no acute distress. Head: Normocephalic, atraumatic Eyes: PERRLA, EOMI ENT: Airway patent Chest: Nonlabored breathing Skin: No visual rash, normal skin tone Neuro: Alert and oriented 3 Musculoskeletal: No gross abnormalities Right lower extremity: Avulsion laceration to the right anterior grullon measuring approximately 4 cm in total Limitations: no limitations Course Vital Signs 06/27/23 12:55 Temperature 98.1 F Pulse Rate 103 H Respiratory 18 Rate Blood Pressure 139/72 O2 Sat by Pulse 98 Oximetry Procedures - Laceration Laceration #1 Consent Obtained: verbal consent Indication: laceration Site: other (grullon, right) Description: flap Anesthetic Used: lidocaine 2%, with epi Anesthesia Technique: local infiltration Pre-repair: wound explored, irrigated extensively Size of Sutures: 3-0 Technique: running Patient Tolerated Procedure: well Medical Decision Making - Medical Decision Making Was pt. sent in by a medical professional or institution ([facility], GINNER, urgent care, hospital, or intermediate...) When possible be specific @ -No Did you speak to anyone other than the patient for history (EMS, parent, family, police, friend...)? What history was obtained from this source @ -No Did you review nursing and triage notes (agree or disagree)? Why? @ -I reviewed and agree with nursing and triage notes Were old charts reviewed (outside hosp., previous admission, EMS record, old EKG, old radiological studies, urgent care reports/EKG's, intermediate records)? Report findings @ -No old charts were reviewed Differential Diagnosis (chest pain, altered mental status, abdominal pain women, abdominal pain men, vaginal bleeding, musculoskeletal, weakness, fever, dyspnea, syncope, headache, dizziness, GI bleed, back pain, seizure, CVA, palpatations, mental health)? @ -Not applicable EKG interpreted by me (3pts min.). @ -None done X-rays interpreted by me (1pt min.). @ -None done CT interpreted by me (1pt min.). @ -None done U/S interpreted by me (1pt. min.). @ -None done What testing was considered but not performed or refused? (CT, X-rays, U/S, labs)? Why? @ -None What meds were considered but not given or refused? Why? @ -None Did you discuss the management of the patient with other professionals (professionals i.e. , PA, GINNER, lab, RT, psych nurse, sexual assault social worker, mine engineering supervisor, teacher, ambulance officer, behavioral health case manager)? Give summary @ -No Was smoking cessation discussed for >3mins.? @ -No Was critical care preformed (if so, how long)? @ -No Were there social determinants of health that impacted care today? How? (Homelessness, low income, unemployed, alcoholism, drug addiction, transportation, low edu. Level, literacy, decrease access to med. care, snf, rehab)? @ -No Was there de-escalation of care discussed even if they declined (Discuss DNR or withdrawal of care, Hospice)? DNR status @ -No What co-morbidities impacted this encounter? (DM, HTN, Smoking, COPD, CAD, Cancer, CVA, ARF, Chemo, Hep., AIDS, mental health diagnosis, sleep apnea, morbid obesity)? @ -None Was patient admitted / discharged? Hospital course, mention meds given and route, prescriptions, significant lab abnormalities, going to OR and other pertinent info. @ -82-year-old female with a right grullon laceration. Vital signs upon arrival are within acceptable limits. Wound was irrigated. Laceration repair was performed at bedside. Patient put on prophylactic antibiotics due to her age and comorbidities. Patient agreeable for discharge. Undiagnosed new problem with uncertain prognosis? @ -No Drug Therapy requiring intensive monitoring for toxicity (Heparin, Nitro, Insulin, Cardizem)? @ -No Were any procedures done? @ -See above Diagnosis/symptom? Acute, or Chronic, or Acute on Chronic? Uncomplicated (without systemic symptoms) or Complicated (systemic symptoms)? @ -Right lower extremity laceration Side effects of treatment? @ -No Exacerbation, Progression, or Severe Exacerbation? @ -No Poses a threat to life or bodily function? How? (Chest pain, [place], [place], pneumonia, PE, COPD, DKA, ARF, appy, cholecystitis, CVA, Diverticulitis, Homicidal, Suicidal, threat to staff... and all critical care pts) @ -No Disposition Clinical Impression: Laceration Disposition: HOME SELF-CARE Condition: Good Instructions (If sedation given, give patient instructions): Laceration (ED) Additional Instructions: suture removal in 10 days Prescriptions: clindamycin HCL [Cleocin] 300 mg PO Q6HR 5 Days #20 cap Is patient prescribed a controlled substance at d/c from ED?: No Referrals: Nicholas Hart MD [Primary Care Provider] - 1-2 days Time of Disposition: 13:38
[2023-06-27 14:02] VITALS: BP 139/72; PULSE 103; RESP 18; TEMP 98.1
== END 2023-06-27 13:45 | disposition home or self-care (01) ==
LOC: EC 12:53
DX: S81.811A Laceration without foreign body, right lower leg, initial encounter (principal); Z87.891 Personal history of nicotine dependence; Z88.1 Allergy status to other antibiotic agents; Z88.8 Allergy status to other drugs, medicaments and biological substances; W22.8XXA Striking against or struck by other objects, initial encounter
CPT/HCPCS: 12002; 99282

== ENCOUNTER 2023-07-28 21:19 | Emergency (ER) | payer MEDICARE ==
--- NOTE | 2023-07-28 22:19 | ED ---
Fall HPI - General Chief Complaint: Fall Stated Complaint: Fall Time Seen by Provider: 07/28/23 21:20 Source: patient, EMS Mode of arrival: EMS - History of Present Illness MD Complaint: fall -: minutes(s) Fall From: standing When Fall Occurred: just prior to arrival Fall Witnessed: yes, by family Place Fall Occurred: home Loss of Consciousness: none Prolonged Down Time?: no Symptoms Prior to Fall: none Location: other (Left hip) Severity: mild Quality: aching Context: tripped/slipped Associated Symptoms: denies - Related Data Home Medications Medication Instructions Recorded Confirmed Latanoprost [Xalatan 0.005%] 1 drop BOTH EYES HS 08/11/17 06/10/23 predniSONE 10 mg PO DAILY 07/23/21 06/10/23 Magnesium Oxide 400 mg PO DAILY 08/30/21 06/10/23 Calcium Citrate/Vitamin D3 1 tab PO BID@0900,1700 11/16/21 06/10/23 [Citracal + D Maximum Caplet] Digoxin [Lanoxin] 125 mcg PO Q48H 11/16/21 06/10/23 Nitroglycerin Sl Tabs [Nitrostat] 0.4 mg SL Q5M PRN 11/16/21 06/10/23 Adalimumab [Humira(Cf) Pen] 40 mg SQ Q14D 01/09/22 06/10/23 Apixaban [Eliquis] 5 mg PO BID@0900,1700 05/02/22 06/10/23 INSULIN LISPRO (HumaLOG) [humaLOG] 6 units SQ AC-TID 05/02/22 06/10/23 INSULIN LISPRO (HumaLOG) [humaLOG] See Protocol SQ AC-TID PRN 05/02/22 06/10/23 Multivit-Min/FA/Lycopen/Lutein 1 tab PO DAILY 05/02/22 06/10/23 [Centrum Silver Tablet] Insulin Glargine [Lantus Vial] 30 unit SQ DAILY 05/17/22 06/10/23 SILVER sulfADIAZINE Cream 1 applic TOPICAL BID PRN 06/28/22 06/10/23 [Silvadene 1% Cream] Tamsulosin [Flomax] 0.4 mg PO DAILY@1200 06/28/22 06/10/23 Bumetanide [BUMEX] 1 mg PO BID@0900,1700 09/02/22 06/10/23 Levothyroxine Sodium [Synthroid] 150 mcg PO HS@0000 09/02/22 06/10/23 traZODone HCL [Desyrel] 50 mg PO HS 12/15/22 06/10/23 Acetaminophen Tab [Tylenol] 325 mg PO QID PRN 05/15/23 06/10/23 Clotrimazole Cream [Lotrimin Cream] 1 applic TOPICAL BID PRN 05/15/23 06/10/23 Insulin Glargine [Lantus Vial] 15 unit SQ HS 05/15/23 06/10/23 Tolterodine ER [Detrol LA] 4 mg PO DAILY 05/15/23 06/10/23 metFORMIN HCL [Glucophage] 500 mg PO HS 05/25/23 06/10/23 Previous Rx's Medication Instructions Recorded Loratadine [Claritin] 10 mg PO DAILY #30 tab 05/20/22 Potassium Chloride ER [K-Dur 20] 20 meq PO BID #60 tab 05/30/23 Lidocaine 5% Patch [Lidoderm] 1 each TP DAILY 30 Days #30 patch 06/15/23 Amoxic-Pot Clav 875-125Mg 1 tab PO Q12HR #20 tablet 06/16/23 [Augmentin 875-125] Gabapentin [Neurontin] 400 mg PO Q6H 30 Days #120 cap 06/22/23 oxyCODONE-APAP 7.5-325MG [Percocet 1 tab PO Q6HR PRN 30 Days #1200 tab 06/22/23 7.5-325 mg] oxyCODONE-APAP 7.5-325MG [Percocet 1 tab PO QID #120 tab 06/22/23 7.5-325 mg] clindamycin HCL [Cleocin] 300 mg PO Q6HR 5 Days #20 cap 06/27/23 Cyclobenzaprine [Flexeril] 10 mg PO BID 30 Days #60 tab 07/18/23 oxyCODONE-APAP 7.5-325MG [Percocet 1 tab PO Q6HR PRN 30 Days #120 tab 08/02/23 7.5-325 mg] Allergies Allergy/AdvReac Type Severity Reaction Status Date / Time adhesive Allergy Rash/Hives Verified 04/21/24 04:22 cephalexin [From Keflex] Allergy Rash/Hives Verified 06/18/23 04:22 grass pollen Allergy Unknown Verified 06/18/23 04:22 mold Allergy Unknown Verified 06/18/23 04:22 newspaper ink Allergy Mild Unknown Uncoded 06/18/23 04:22 Review of Systems ROS Statement: Those systems with pertinent positive or pertinent negative responses have been documented in the HPI. ROS Other: All systems not noted in ROS Statement are negative. Constitutional: Denies: weakness Respiratory: Denies: cough, dyspnea Cardiovascular: Denies: chest pain, palpitations Gastrointestinal: Denies: abdominal pain, vomiting, diarrhea Genitourinary: Denies: dysuria, hematuria Musculoskeletal: Reports: as per HPI, myalgia. Denies: arthralgia Skin: Denies: rash Neurological: Denies: headache, weakness, numbness Past Medical History Past Medical History: Atrial Fibrillation, Coronary Artery Disease (CAD), Cancer, Diabetes Mellitus, Hyperlipidemia, Hypertension, Musculoskeletal Disorder, Neurologic Disorder, Osteoarthritis (OA), Pneumonia, Renal Disease, Rheumatoid Arthritis (RA), Skin Disorder, Thyroid Disorder Additional Past Medical History / Comment(s): Morbid obesity, chronic atrial fibrillation, diabetes mellitus type 2, hypertension, hyperlipidemia, spinal stenosis, osteoarthritis, hypothyroidism, hypertension, history of skin melanoma, history of bursitis with MRSA post I&D, rheumatoid arthritis, Sjogren's disease, 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 without any indication of ILD related to RA, Fall on July 22 transfer to [facility] for MRI, then Fall on 11/16/21 History of Any Multi-Drug Resistant Organisms: MRSA Date of last positivie culture/infection: 09/02/22 MDRO Source:: Right Leg Past Surgical History: Back Surgery, Breast Surgery, Cholecystectomy, Heart Catheterization, Joint Replacement, Orthopedic Surgery Additional Past Surgical History / Comment(s): Bilateral cataracts with lens implants, arthroscopies to lt wrist, gualberto knees, gualberto ankles, gualberto hips, lt hip replacment and redone, L/R shoulder sxs, rt breast bx-benign, egd/colonoscopy, skin cancer removal L arm, Lumbar fixnation possible broken Past Anesthesia/Blood Transfusion Reactions: No Reported Reaction Additional Past Anesthesia/Blood Transfusion Reaction / Comment(s): Pt has been told not to have anesthesia metabolized by the kidneys and has neurologic Sjogren's with post anesthesia paralysis. Past Psychological History: No Psychological Hx Reported Smoking Status: Former smoker Past Alcohol Use History: None Reported Past Drug Use History: None Reported - Past Family History Mother Family Medical History: CVA/TIA Additional Family Medical History / Comment(s): RUPTURED BOWEL Father Family Medical History: Cancer, Pneumonia Additional Family Medical History / Comment(s): ASPIRATIVE PNA Sister(s) Additional Family Medical History / Comment(s): at age 34 with lupus General Exam Limitations: no limitations General appearance: alert, in no apparent distress Head exam: Present: atraumatic, normocephalic Eye exam: Present: normal appearance. Absent: scleral icterus, conjunctival injection Neck exam: Present: normal inspection, full ROM. Absent: tenderness Respiratory exam: Present: normal lung sounds bilaterally. Absent: respiratory distress, wheezes, rales, rhonchi, stridor, chest wall tenderness, accessory muscle use Cardiovascular Exam: Present: regular rate, normal rhythm, normal heart sounds. Absent: systolic murmur, diastolic murmur, rubs, gallop GI/Abdominal exam: Present: soft. Absent: distended, tenderness, guarding, rebound, rigid, mass Extremities exam: Present: normal inspection, tenderness, normal capillary refill. Absent: pedal edema, calf tenderness Back exam: Present: normal inspection. Absent: CVA tenderness (R), CVA tenderness (L) Neurological exam: Absent: motor sensory deficit Skin exam: Present: warm, dry, normal color, other (Laceration right pretibial. Left foot chronic ulcer) Course Vital Signs 07/28/23 07/28/23 07/28/23 21:20 22:00 23:00 Temperature 97.7 F Pulse Rate 111 H 97 86 Respiratory 20 18 16 Rate Blood Pressure 140/91 128/71 161/97 O2 Sat by Pulse 96 96 94 L Oximetry 07/29/23 00:30 Temperature Pulse Rate 94 Respiratory 18 Rate Blood Pressure 136/90 O2 Sat by Pulse 98 Oximetry Medical Decision Making - Medical Decision Making The patient had left hip and pelvis x-ray which I interpreted as negative for acute fracture or dislocation The patient had lumbar spine x-ray which I interpreted as negative for acute bony injury. Previous surgical hardware observed. Was pt. sent in by a medical professional or institution (, PA, PLANNING ADVISOR, urgent care, hospital, or penitentiary...) When possible be specific @ -[No] Did you speak to anyone other than the patient for history (EMS, parent, family, police, friend...)? What history was obtained from this source @ -[No] Did you review nursing and triage notes (agree or disagree)? Why? @ -[I reviewed and agree with nursing and triage notes] Were old charts reviewed (outside hosp., previous admission, EMS record, old EKG, old radiological studies, urgent care reports/EKG's, penitentiary records)? Report findings @ -[No old charts were reviewed] Differential Diagnosis (chest pain, altered mental status, abdominal pain women, abdominal pain men, vaginal bleeding, weakness, fever, dyspnea, syncope, headache, dizziness, GI bleed, back pain, seizure, CVA, palpatations, mental health, musculoskeletal)? @ -[Differential Musculoskeletal Muscular strain, contusion, ligament sprain, fracture, arthritis, septic arthritis, bursitis, cellulitis, muscle spasm, nerve compression, DVT, arterial occlusion, herpes zoster, electrolyte abnormality, tumor.... This is not meant to be in all inclusive list] EKG interpreted by me (3pts min.). @ -[As above] X-rays interpreted by me (1pt min.). @ -[I interpreted as above CT interpreted by me (1pt min.). @ -[None done] U/S interpreted by me (1pt. min.). @ -[None done] What testing was considered but not performed or refused? (CT, X-rays, U/S, labs)? Why? @ -[None] What meds were considered but not given or refused? Why? @ -[None] Did you discuss the management of the patient with other professionals (professionals i.e. , PA, PLANNING ADVISOR, lab, RT, psych nurse, licensed social worker, metal casting trades worker, teacher, custody officer, showcase trimmer)? Give summary @ -[No] Was smoking cessation discussed for >3mins.? @ -[No] Was critical care preformed (if so, how long)? @ -[No] Were there social determinants of health that impacted care today? How? (Homelessness, low income, unemployed, alcoholism, drug addiction, transportation, low edu. Level, literacy, decrease access to med. care, penitentiary, rehab)? @ -[No] Was there de-escalation of care discussed even if they declined (Discuss DNR or withdrawal of care, Hospice)? DNR status @ -[No] What co-morbidities impacted this encounter? (DM, HTN, Smoking, COPD, CAD, Cancer, CVA, ARF, Chemo, Hep., AIDS, mental health diagnosis, sleep apnea, morbid obesity)? @ -[History of chronic back pain Was patient admitted / discharged? Hospital course, mention meds given and route, prescriptions, significant lab abnormalities, going to OR and other pertinent info. @ -[Patient is 82-year-old woman here to have evaluation after fall. No definite acute fracture is visualized. The patient is feeling better following discharge and the return parameters were discussed. Undiagnosed new problem with uncertain prognosis? @ -[No] Drug Therapy requiring intensive monitoring for toxicity (Heparin, Nitro, Insulin, Cardizem)? @ -[No] Were any procedures done? @ -[No] Diagnosis/symptom? @ -[Acute fall Contusion Acute, or Chronic, or Acute on Chronic? @ -[Acute Uncomplicated (without systemic symptoms) or Complicated (systemic symptoms)? @ -[Uncomplicated Side effects of treatment? @ -[No] Exacerbation, Progression, or Severe Exacerbation? @ -[No] Poses a threat to life or bodily function? How? (Chest pain, [place], [place], pneumonia, PE, COPD, DKA, ARF, appy, cholecystitis, CVA, Diverticulitis, Homicidal, Suicidal, threat to staff... and all critical care pts) @ -[No] Disposition Clinical Impression: Fall, Hip injury Disposition: HOME SELF-CARE Condition: Good Instructions (If sedation given, give patient instructions): Fall Prevention for Older Adults (ED) Is patient prescribed a controlled substance at d/c from ED?: No Referrals: Nicholas Hart MD [Primary Care Provider] - 1-2 days
[2023-07-28 22:45] VITALS: TEMP 97.7
--- NOTE | 2023-07-28 23:18 | XR ---
EXAM: XR Pelvis, 1 or 2 Views CLINICAL HISTORY: ITS.REASON XR Reason: fall injury TECHNIQUE: Frontal view of the pelvis. COMPARISON: No relevant prior studies available. FINDINGS: Bones/joints: Multilevel posterior lumbar fusion extending from L2-S1. No radiographic evidence of hardware complication. Osseous demineralization. Degenerative endplate changes and disc space narrowing. Spondylosis. No acute fracture. No dislocation. Soft tissues: Unremarkable. IMPRESSION: Multilevel posterior lumbar fusion extending from L2-S1. No radiographic evidence of hardware complication.
--- NOTE | 2023-07-28 23:59 | XR ---
EXAM: XR Lumbosacral Spine, 2 or 3 Views CLINICAL HISTORY: ITS.REASON XR Reason: fall injury TECHNIQUE: Frontal and lateral views of the lumbar spine and sacrum. Significant limited evaluation of the lateral view due to patient motion, and of the frontal view due to bowel gas in spite of repeat scanning. COMPARISON: CT abdomen pelvis 06/29/22. FINDINGS: Vertebrae: Bilateral pedicle screws L3, L4, L5 and S1. Possible fracture of the left vertical stabilizing narda at L5-S1, correlate clinically, stable. No acute fracture. Normal alignment. Sacrum/coccyx: Unremarkable as visualized. No acute fracture. Disc spaces: No acute findings. No significant narrowing. Soft tissues: Gaseous distended bowel and fecal loading of the colon, possible megacolon. IMPRESSION: 1. Stable orthopedic hardware in the lumbosacral spine. 2. There is a gap or lucency at the junction of the left vertical stabilizing narda and left S1 pedicle screw, correlate clinically to rule out possible fracture or hardware failure. This finding is stable. 3. No definite fracture or acute finding, though there is significant limited evaluation due to body habitus, bowel gas and patient motion.
[2023-07-29] MEDS: ACETAMINOPHEN TAB 325 MG TAB PO STA (01:06)
[2023-07-29] MEDS: IBUPROFEN 600 MG TAB PO STA (01:06)
[2023-07-29 01:20] VITALS: BP 136/90; PULSE 94; RESP 18
== END 2023-07-29 01:09 | disposition home or self-care (01) ==
LOC: EC 21:19
DX: S79.912A Unspecified injury of left hip, initial encounter (principal); M54.9 Dorsalgia, unspecified; G89.29 Other chronic pain; Z87.891 Personal history of nicotine dependence; Z88.1 Allergy status to other antibiotic agents; Z88.8 Allergy status to other drugs, medicaments and biological substances; Z90.49 Acquired absence of other specified parts of digestive tract; W01.0XXA Fall on same level from slipping, tripping and stumbling without subsequent striking against object, initial encounter
CPT/HCPCS: 72100; 73502; 99284

== ENCOUNTER → 2023-08-17 | Outpatient (CLI) | payer MEDICARE ==
[2023-08-17 13:46] VITALS: BP 112/57; PULSE 67; RESP 16
--- NOTE | 2023-08-17 15:27 | P.PAINPG ---
PQRS Measure Charge Sheet Comment: HISTORY OF PRESENT ILLNESS: A 82 yr old wheelchair bound female w at side presents today w severe and chronic LBP x 2 yrs secondary to post laminectomy syndrome for medication refills. Pt refused the Caudal ASHLEY when the employment recruiter called her to setup the procedure. Pt states pain level is provoked at 8 /10 in intensity, constant, localized in the lumbar spine, predominantly axial, achy in character without shooting pain. Pain is provoked by standing for periods of 15 min or more. Pain is alleviated by PT x 8 wks in Sep 2022 w minimal relief, medications, topical Biofreeze, Lidoderm, heat, ice, repositioning and rest. Oswestry axial pain score at 35. Interventional procedures include Medications include Percocet 7.5/325mg #120, Neurontin 400mg #120, Lidoderm , Robaxin 750mg #60, Biofreeze Gel REVIEW OF ORGAN SYSTEMS: CONSTITUTIONAL: No fevers or chills. No recent weight loss. NEUROLOGICAL: + numbness and tingling along the distal extremities. No seizure disorders or headaches. MUSCULOSKELETAL: + pain PSYCHIATRIC: Denies current depression or suicidal thoughts. Physical Examinations : Constitutional : Cooperative , not in acute distress . Neurologic : Cranial nerve II to XII intact. No focal neurological deficits. Psychiatric : alert & oriented x 3. Matching mood & appropriate affect. Judgment & insight intact. Musculoskeletal : Cervical Spine Motor strength in the deltoid and biceps: Normal right side. Normal Left side Motor strength biceps and the wrist extensors: Normal right side . Normal left side Motor strength in the triceps muscle: Normal right side. Normal left side Deep tendon reflexes: Normal at the biceps. Normal at Brachioradialis. Normal at triceps Vertebral body tenderness to deep palpation over Cervical facet loading test: positive bilaterally Spurling test: positive bilaterally Neck distraction test: positive bilaterally Minesh sign: positive bilaterally Lumbar spine Motor strength lower extremities ,thigh and legs 5/5 Right side , 5/5 Left side Deep tendon reflexes : Normal Knee Jerk. Normal Ankle Jerk Vertebral body tenderness over L5 Denton Test positive L5-S1 Lumbar facet Loading Test: positive Right / positive Left Range of motion of the lumbar spine Flexion 30 degrees, extension 10 degrees Straight Leg Raise test: Left/ Right positive at degree Lindsey test: positive right / positive left. Severe tenderness over the Sacroiliac joint on the Right / Left sides Gaenslen test: positive bilaterally Seated flexion test: positive bilaterally. Sacral spine : Severe tenderness over the Sacroiliac joint: right side / left side Range of motion: Flexion of the lumbar spine <60 degrees Range of motion: Extension of the lumbar spine <20 degrees Gaenslen's Test positive Lindsey test: positive right side / left side Thigh Thrust Test Sacral Thrust Test Imaging: MRI noncontrast Lumbar spine from 03/09/23 reviewed Assessment/ Plan : Lumbar post laminectomy syndrome Recommendation of medication management. Percocet 7.5/325mg #120, Neurontin 400mg #120, Robaxin 750mg #60 w 1 RF. Narcotic/ opiate agreement signed 01/05/23 Use, side effects, adverse reactions and safe storage discussed. Blood tox screen script provided 08/17/23 and notified pt to submit sample today before leaving facility. All questions answered. I have spent greater than 30 minutes on patient care today. Dr Robles was available by phone for the evaluation of this patient. The time was used to review the medical records including relevant urine studies and Prescription history (MAPs), review of the available imaging, evaluation and examination of the patient, coordination of care with the medical staff and if applicable referring physicians, as well as creation of the medical record PQRS Narrative: Smoking Status Former smoker Narcotic Agreement Date Signed 01/05/23 Hx Alcohol Use (MH) No Home Medications: Ambulatory Orders Latanoprost [Xalatan 0.005%] 1 drop BOTH EYES HS 08/11/17 predniSONE 10 mg PO DAILY 07/23/21 Magnesium Oxide 400 mg PO DAILY 08/30/21 Calcium Citrate/Vitamin D3 [Citracal + D Maximum Caplet] 1 tab PO BID@0900,1700 11/16/21 Digoxin [Lanoxin] 125 mcg PO Q48H 11/16/21 Nitroglycerin Sl Tabs [Nitrostat] 0.4 mg SL Q5M PRN 11/16/21 Adalimumab [Humira(Cf) Pen] 40 mg SQ Q14D 01/09/22 Apixaban [Eliquis] 5 mg PO BID@0900,1700 05/02/22 INSULIN LISPRO (HumaLOG) [humaLOG] 6 units SQ AC-TID 05/02/22 INSULIN LISPRO (HumaLOG) [humaLOG] See Protocol SQ AC-TID PRN 05/02/22 Multivit-Min/FA/Lycopen/Lutein [Centrum Silver Tablet] 1 tab PO DAILY 05/02/22 Insulin Glargine [Lantus Vial] 30 unit SQ DAILY 05/17/22 Loratadine [Claritin] 10 mg PO DAILY #30 tab 05/20/22 SILVER sulfADIAZINE Cream [Silvadene 1% Cream] 1 applic TOPICAL BID PRN 06/28/22 Tamsulosin [Flomax] 0.4 mg PO DAILY@1200 06/28/22 Bumetanide [BUMEX] 1 mg PO BID@0900,1700 09/02/22 Levothyroxine Sodium [Synthroid] 150 mcg PO HS@0000 09/02/22 traZODone HCL [Desyrel] 50 mg PO HS 12/15/22 Acetaminophen Tab [Tylenol] 325 mg PO QID PRN 05/15/23 Clotrimazole Cream [Lotrimin Cream] 1 applic TOPICAL BID PRN 05/15/23 Insulin Glargine [Lantus Vial] 15 unit SQ HS 05/15/23 Tolterodine ER [Detrol LA] 4 mg PO DAILY 05/15/23 metFORMIN HCL [Glucophage] 500 mg PO HS 05/25/23 Potassium Chloride ER [K-Dur 20] 20 meq PO BID #60 tab 05/30/23 Lidocaine 5% Patch [Lidoderm] 1 each TP DAILY 30 Days #30 patch 06/15/23 Amoxic-Pot Clav 875-125Mg [Augmentin 875-125] 1 tab PO Q12HR #20 tablet 06/16/23 Gabapentin [Neurontin] 400 mg PO Q6H 30 Days #120 cap 06/22/23 oxyCODONE-APAP 7.5-325MG [Percocet 7.5-325 mg] 1 tab PO Q6HR PRN 30 Days #1200 tab 06/22/23 oxyCODONE-APAP 7.5-325MG [Percocet 7.5-325 mg] 1 tab PO QID #120 tab 06/22/23 clindamycin HCL [Cleocin] 300 mg PO Q6HR 5 Days #20 cap 06/27/23 Cyclobenzaprine [Flexeril] 10 mg PO BID 30 Days #60 tab 07/18/23 oxyCODONE-APAP 7.5-325MG [Percocet 7.5-325 mg] 1 tab PO Q6HR PRN 30 Days #120 tab 08/02/23 Controlled Substance Measures - Controlled Substance Measures Is patient prescribed a controlled substance at discharge?: Yes When asked, does pt state using other controlled substances?: No If prescribed controlled substance>3 days was MAPS reviewed?: Yes
[2023-08-18 11:06] LABS: Serum Amphetamine Negative; Serum Barbiturates Negative; Serum Benzodiazepine Negative; Serum Cocaine Negative; Serum Methadone Negative; Serum Opiates Negative; Serum Phencyclidine Negative; Serum Propoxyphene Negative; Serum THC (Cannabis) Negative
== END ==
LOC: PNWHC3 12:55
PROVIDERS: ATTEND Specialist
DX: Z02.83 Encounter for blood-alcohol and blood-drug test (principal); M96.1 Postlaminectomy syndrome, not elsewhere classified; Z87.891 Personal history of nicotine dependence; Z91.048 Other nonmedicinal substance allergy status; Z88.1 Allergy status to other antibiotic agents; Z91.09 Other allergy status, other than to drugs and biological substances
CPT/HCPCS: 80307; G0463; 99211

== ENCOUNTER → 2023-10-26 | Outpatient (CLI) | payer MEDICARE ==
[2023-10-27 06:45] LABS: Serum Amphetamine Negative; Serum Barbiturates Negative; Serum Benzodiazepine Negative; Serum Cocaine Negative; Serum Methadone Negative; Serum Opiates Negative; Serum Phencyclidine Negative; Serum Propoxyphene Negative; Serum THC (Cannabis) Negative
== END | disposition home or self-care (01) ==
LOC: LABWHC1 14:24
PROVIDERS: ATTEND Physician Assistant Medical
DX: Z02.83 Encounter for blood-alcohol and blood-drug test (principal)
CPT/HCPCS: 36415; 80307

== ENCOUNTER → 2023-10-26 | Outpatient (CLI) | payer MEDICARE ==
[2023-10-26 14:02] VITALS: BP 132/68; PULSE 86; RESP 18
--- NOTE | 2023-10-26 14:45 | P.PAINPG ---
PQRS Measure Charge Sheet Comment: HISTORY OF PRESENT ILLNESS: A 82 yr old wheelchair bound female w at side presents today w severe and chronic LBP x 2 yrs secondary to post laminectomy syndrome for medication refills. Pt has refused Caudal ASHLEY scheduling in the past. Blood tox screen from 08/17/23 NEG for medications prescribed. Will repeat tox screen today. Pt states pain level is provoked at 8 /10 in intensity, constant, localized in the lumbar spine, predominantly axial, achy in character without shooting pain. Pain is provoked by standing for periods of 15 min or more. Pain is alleviated by PT x 8 wks in Sep 2022 w minimal relief, medications, topical Biofreeze, Lidoderm, heat, ice, repositioning and rest. Oswestry axial pain score at 35. Interventional procedures include Medications include Percocet 7.5/325mg #120, Neurontin 400mg #120, Lidoderm , Robaxin 750mg #60, Biofreeze Gel REVIEW OF ORGAN SYSTEMS: CONSTITUTIONAL: No fevers or chills. No recent weight loss. NEUROLOGICAL: + numbness and tingling along the distal extremities. No seizure disorders or headaches. MUSCULOSKELETAL: + pain PSYCHIATRIC: Denies current depression or suicidal thoughts. Physical Examinations : Constitutional : Cooperative , not in acute distress . Neurologic : Cranial nerve II to XII intact. No focal neurological deficits. Psychiatric : alert & oriented x 3. Matching mood & appropriate affect. Judgment & insight intact. Musculoskeletal : Cervical Spine Motor strength in the deltoid and biceps: Normal right side. Normal Left side Motor strength biceps and the wrist extensors: Normal right side . Normal left side Motor strength in the triceps muscle: Normal right side. Normal left side Deep tendon reflexes: Normal at the biceps. Normal at Brachioradialis. Normal at triceps Vertebral body tenderness to deep palpation over Cervical facet loading test: positive bilaterally Spurling test: positive bilaterally Neck distraction test: positive bilaterally Minesh sign: positive bilaterally Lumbar spine Motor strength lower extremities ,thigh and legs 5/5 Right side , 5/5 Left side Deep tendon reflexes : Normal Knee Jerk. Normal Ankle Jerk Vertebral body tenderness over L5 Denton Test positive L5-S1 Lumbar facet Loading Test: positive Right / positive Left Range of motion of the lumbar spine Flexion 30 degrees, extension 10 degrees Straight Leg Raise test: Left/ Right positive at degree Lindsey test: positive right / positive left. Severe tenderness over the Sacroiliac joint on the Right / Left sides Gaenslen test: positive bilaterally Seated flexion test: positive bilaterally. Sacral spine : Severe tenderness over the Sacroiliac joint: right side / left side Range of motion: Flexion of the lumbar spine <60 degrees Range of motion: Extension of the lumbar spine <20 degrees Gaenslen's Test positive Lindsey test: positive right side / left side Thigh Thrust Test Sacral Thrust Test Imaging: MRI noncontrast Lumbar spine from 03/09/23 reviewed Assessment/ Plan : Lumbar post laminectomy syndrome Recommendation of medication management. Percocet 7.5/325mg #120, Neurontin 400mg #120, Robaxin 750mg #60 w 1 RF. Narcotic/ opiate agreement signed 01/05/23 Use, side effects, adverse reactions and safe storage discussed. Blood tox screen script provided 08/17/23 and notified pt to submit sample today before leaving facility. All questions answered. I have spent greater than 30 minutes on patient care today. Dr Robles was available by phone for the evaluation of this patient. The time was used to review the medical records including relevant urine studies and Prescription history (MAPs), review of the available imaging, evaluation and examination of the patient, coordination of care with the medical staff and if applicable referring physicians, as well as creation of the medical record PQRS Narrative: Smoking Status Former smoker Narcotic Agreement Date Signed 01/05/23 Hx Alcohol Use (MH) No Home Medications: Ambulatory Orders Latanoprost [Xalatan 0.005%] 1 drop BOTH EYES HS 08/11/17 predniSONE 10 mg PO DAILY 07/23/21 Magnesium Oxide 400 mg PO DAILY 08/30/21 Calcium Citrate/Vitamin D3 [Citracal + D Maximum Caplet] 1 tab PO BID@0900,1700 11/16/21 Digoxin [Lanoxin] 125 mcg PO Q48H 11/16/21 Nitroglycerin Sl Tabs [Nitrostat] 0.4 mg SL Q5M PRN 11/16/21 Adalimumab [Humira(Cf) Pen] 40 mg SQ Q14D 01/09/22 Apixaban [Eliquis] 5 mg PO BID@0900,1700 05/02/22 INSULIN LISPRO (HumaLOG) [humaLOG] 6 units SQ AC-TID 05/02/22 INSULIN LISPRO (HumaLOG) [humaLOG] See Protocol SQ AC-TID PRN 05/02/22 Multivit-Min/FA/Lycopen/Lutein [Centrum Silver Tablet] 1 tab PO DAILY 05/02/22 Insulin Glargine [Lantus Vial] 30 unit SQ DAILY 05/17/22 Loratadine [Claritin] 10 mg PO DAILY #30 tab 05/20/22 SILVER sulfADIAZINE Cream [Silvadene 1% Cream] 1 applic TOPICAL BID PRN 06/28/22 Tamsulosin [Flomax] 0.4 mg PO DAILY@1200 06/28/22 Bumetanide [BUMEX] 1 mg PO BID@0900,1700 09/02/22 Levothyroxine Sodium [Synthroid] 150 mcg PO HS@0000 09/02/22 traZODone HCL [Desyrel] 50 mg PO HS 12/15/22 Acetaminophen Tab [Tylenol] 325 mg PO QID PRN 05/15/23 Clotrimazole Cream [Lotrimin Cream] 1 applic TOPICAL BID PRN 05/15/23 Insulin Glargine [Lantus Vial] 15 unit SQ HS 05/15/23 Tolterodine ER [Detrol LA] 4 mg PO DAILY 05/15/23 metFORMIN HCL [Glucophage] 500 mg PO HS 05/25/23 Potassium Chloride ER [K-Dur 20] 20 meq PO BID #60 tab 05/30/23 Lidocaine 5% Patch [Lidoderm] 1 each TP DAILY 30 Days #30 patch 06/15/23 Amoxic-Pot Clav 875-125Mg [Augmentin 875-125] 1 tab PO Q12HR #20 tablet 06/16/23 clindamycin HCL [Cleocin] 300 mg PO Q6HR 5 Days #20 cap 06/27/23 Gabapentin [Neurontin] 400 mg PO Q6H 30 Days #120 cap 08/17/23 methocarbamoL [Robaxin] 500 mg PO TID PRN 30 Days #90 tab 08/17/23 Cyclobenzaprine [Flexeril] 10 mg PO HS PRN 30 Days #30 tab 09/18/23 oxyCODONE-APAP 7.5-325MG [Percocet 7.5-325 mg] 1 tab PO Q6HR PRN 30 Days #120 tab 10/26/23 oxyCODONE-APAP 7.5-325MG [Percocet 7.5-325 mg] 1 tab PO Q6HR PRN 30 Days #120 tab 10/26/23 Controlled Substance Measures - Controlled Substance Measures Is patient prescribed a controlled substance at discharge?: Yes When asked, does pt state using other controlled substances?: No If prescribed controlled substance>3 days was MAPS reviewed?: Yes
== END ==
LOC: PNWHC3 13:19
PROVIDERS: ATTEND Specialist
DX: M47.816 Spondylosis without myelopathy or radiculopathy, lumbar region (principal); M96.1 Postlaminectomy syndrome, not elsewhere classified; Z87.891 Personal history of nicotine dependence; Z91.048 Other nonmedicinal substance allergy status; Z88.1 Allergy status to other antibiotic agents; Z91.09 Other allergy status, other than to drugs and biological substances; Z88.8 Allergy status to other drugs, medicaments and biological substances
CPT/HCPCS: 99211

== ENCOUNTER 2023-11-23 14:29 | Inpatient (IN) | payer MEDICARE ==
[2023-11-23] MEDS ORDERED: VANCOMYCIN IV PER PHARMACY 1 EACH MISC MISCELLANE PRN (14:35)
--- NOTE | 2023-11-23 14:51 | ED ---
General Adult HPI - General Chief complaint: Weakness Stated complaint: weakness Time Seen by Provider: 11/23/23 14:29 Source: patient, EMS, RN notes reviewed, old records reviewed Mode of arrival: EMS Limitations: no limitations - History of Present Illness Initial comments: Patient is an 83-year-old female presents emergency department plaint of weakness, possible cellulitis on her legs, as well as hyperglycemia. States she also feels lightheaded moving around and gets short of breath. Has a history of A-fib, CAD, hypertension, hyperlipidemia, insulin-dependent diabetes. Her has been admitted to our hospital recently for the last few days and she has not been taking her insulin and is uncertain if she is taking her other m edications since he has been here. She lives alone at home currently. Denies fevers or chills. Does endorse mild productive cough. Has no other acute complaints at this time. Since for further evaluation. Has noticed the redness on her legs getting worse at least over the last few days. Concern for possible cellulitis. Accu-Chek with EMS was over 400. - Related Data Home Medications Medication Instructions Recorded Confirmed Latanoprost [Xalatan 0.005%] 1 drop BOTH EYES HS@0000 08/11/17 11/23/23 predniSONE 10 mg PO DAILY@0800 07/23/21 11/23/23 Calcium Citrate/Vitamin D3 1 tab PO BID@0800,1800 11/16/21 11/23/23 [Citracal + D Maximum Caplet] Digoxin [Lanoxin] 125 mcg PO Q48H 11/16/21 11/23/23 Nitroglycerin Sl Tabs [Nitrostat] 0.4 mg SL Q5M PRN 11/16/21 11/23/23 Adalimumab [Humira(Cf) Pen] 40 mg SQ Q14D 01/09/22 11/23/23 Apixaban [Eliquis] 5 mg PO BID@0800,1800 05/02/22 11/23/23 INSULIN LISPRO (HumaLOG) [humaLOG] 6 units SQ AC-TID 05/02/22 11/23/23 INSULIN LISPRO (HumaLOG) [humaLOG] See Protocol SQ AC-TID PRN 05/02/22 11/23/23 Multivit-Min/FA/Lycopen/Lutein 1 tab PO DAILY@0800 05/02/22 11/23/23 [Centrum Silver Tablet] Levothyroxine Sodium [Synthroid] 150 mcg PO HS@0000 09/02/22 11/23/23 traZODone HCL [Desyrel] 50 mg PO HS@0000 12/15/22 11/23/23 Tolterodine ER [Detrol LA] 4 mg PO DAILY@1200 05/15/23 11/23/23 metFORMIN HCL [Glucophage] 500 mg PO DAILY@179905/25/23 11/23/23 Acetaminophen Tab [Tylenol Tab] 500 mg PO QID@00,06,,11/23/23 11/23/23 Bumetanide [BUMEX] 2 mg PO BID@0800,179911/23/23 11/23/23 Cyclobenzaprine [Flexeril] 10 mg PO HS@11/23/23 11/23/23 Gabapentin [Neurontin] 400 mg PO QID@00,06,,11/23/23 11/23/23 Insulin Glargine,Hum.rec.anlog 24 units SQ DAILY@179911/23/23 11/23/23 [Lantus Solostar Pen] Insulin Glargine,Hum.rec.anlog 34 units SQ DAILY@79911/23/23 11/23/23 [Lantus Solostar Pen] Loratadine [Claritin] 10 mg PO DAILY@0811/23/23 11/23/23 Magnesium Oxide [Mag-Ox] 250 mg PO DAILY@0811/23/23 11/23/23 Ondansetron Odt [Zofran Odt] 8 mg PO TID PRN 11/23/23 11/23/23 Potassium Chloride ER [K-Dur 20] 20 meq PO BID@0800,1800 11/23/23 11/23/23 Semaglutide [Ozempic] 0.5 mg SQ FR 11/23/23 11/23/23 oxyCODONE-APAP 7.5-325MG [Percocet 1 tab PO QID@00,06,12,18 11/23/23 11/23/23 7.5-325 mg] Allergies Allergy/AdvReac Type Severity Reaction Status Date / Time adhesive Allergy Rash/Hives Verified 11/23/23 16:16 cephalexin [From Keflex] Allergy Rash/Hives Verified 11/23/23 16:16 grass pollen Allergy Unknown Verified 11/23/23 16:16 mold Allergy Unknown Verified 11/23/23 16:16 newspaper ink Allergy Mild Unknown Uncoded 06/18/23 04:22 Review of Systems ROS Statement: Those systems with pertinent positive or pertinent negative responses have been documented in the HPI. Review of Systems: CONST: Denies fever EYES: Denies blurry vision ENT: Denies nasal congestion C/V: Denies Chest pain RESP: Denies shortness of breath GI: Denies abdominal pain : Denies dysuria SKIN: Endorses bilateral grullon redness and pain. MSK: Denies joint pain. NEURO: Denies headache ROS Other: All systems not noted in ROS Statement are negative. Past Medical History Past Medical History: Atrial Fibrillation, Coronary Artery Disease (CAD), Cancer, Diabetes Mellitus, Hyperlipidemia, Hypertension, Musculoskeletal Disorder, Neurologic Disorder, Osteoarthritis (OA), Pneumonia, Renal Disease, Rheumatoid Arthritis (RA), Skin Disorder, Thyroid Disorder Additional Past Medical History / Comment(s): Morbid obesity, chronic atrial fibrillation, diabetes mellitus type 2, hypertension, hyperlipidemia, spinal stenosis, osteoarthritis, hypothyroidism, hypertension, history of skin melanoma, history of bursitis with MRSA post I&D, rheumatoid arthritis, Sjogren's disease, 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 without any indication of ILD related to RA, Fall on July 22 transfer to [facility] for MRI, then Fall on 11/16/21 History of Any Multi-Drug Resistant Organisms: MRSA Date of last positivie culture/infection: 09/02/22 MDRO Source:: Right Leg Past Surgical History: Back Surgery, Breast Surgery, Cholecystectomy, Heart Cath eterization, Joint Replacement, Orthopedic Surgery Additional Past Surgical History / Comment(s): Bilateral cataracts with lens implants, arthroscopies to lt wrist, gualberto knees, gualberto ankles, gualberto hips, lt hip replacment and redone, L/R shoulder sxs, rt breast bx-benign, egd/colonoscopy, skin cancer removal L arm, Lumbar fixnation possible broken Past Anesthesia/Blood Transfusion Reactions: No Reported Reaction Additional Past Anesthesia/Blood Transfusion Reaction / Comment(s): Pt has been told not to have anesthesia metabolized by the kidneys and has neurologic Sjogren's with post anesthesia paralysis. Past Psychological History: No Psychological Hx Reported Smoking Status: Former smoker Past Alcohol Use History: None Reported Past Drug Use History: None Reported - Past Family History Mother Family Medical History: CVA/TIA Additional Family Medical History / Comment(s): RUPTURED BOWEL Father Family Medical History: Cancer, Pneumonia Additional Family Medical History / Comment(s): ASPIRATIVE PNA Sister(s) Additional Family Medical History / Comment(s): at age 34 with lupus General Exam - General Exam Comments Initial Comments: General: Appears in no acute distress. HEAD: Normal with no signs of head trauma. EYES: PERRLA, EOMI, conjunctiva normal, no discharge. ENT: Hearing grossly intact, normal oropharynx. RESPIRATORY: Clear breath sounds bilaterally. No wheezes, rales, or rhonchi. C/V: Regular rate and rhythm. S1 and S2 auscultated, no significant pitting edema, peripheral pulses 2+ and intact throughout ABD: Abd is soft, nontender, nondistended EXT: Normal range of motion, no obvious deformity SKIN: Bilateral grullon erythema. Warmth. No obvious fluctuance. No obvious discharge or open wounds. NEURO: Alert and oriented x 4. Limitations: no limitations Course Vital Signs 11/23/23 11/23/23 14:32 15:20 Temperature 98.4 F Pulse Rate 86 Pulse Rate [ 86 Pumper Gauger ] Respiratory 18 Rate Blood Pressure 145/65 O2 Sat by Pulse 94 L Oximetry Medical Decision Making - Medical Decision Making Was pt. sent in by a medical professional or institution (YEIMI Rivera, SENIOR QUALITY CONTROL INSPECTOR, urgent care, hospital, or senior care...) When possible be specific @ -No Did you speak to anyone other than the patient for history (EMS, parent, family, police, friend...)? What history was obtained from this source @ -No Did you review nursing and triage notes (agree or disagree)? Why? @ -I reviewed and agree with nursing and triage notes Were old charts reviewed (outside hosp., previous admission, EMS record, old EKG, old radiological studies, urgent care reports/EKG's, senior care records)? Report findings @ -Old charts reviewed including previous medications which confirms patient is on blood thinners as well as insulin. Differential Diagnosis (chest pain, altered mental status, abdominal pain women, abdominal pain men, vaginal bleeding, weakness, fever, dyspnea, syncope, headache, dizziness, GI bleed, back pain, seizure, CVA, palpatations, mental health, musculoskeletal)? @ -Differential Weakness: Hypoglycemia, shock, sepsis, hyponatremia, anemia, infection, TN, ETOH, adverse medicine reaction, overdose, stroke, this is not meant to be an all-inclusive list. EKG interpreted by me (3pts min.). @ -As above X-rays interpreted by me (1pt min.). @ -Chest x-ray reveals no obvious acute cardiopulmonary process. CT interpreted by me (1pt min.). @ -None done U/S interpreted by me (1pt. min.). @ -None done What testing was considered but not performed or refused? (CT, X-rays, U/S, labs)? Why? @ -None What meds were considered but not given or refused? Why? @ -None Did you discuss the management of the patient with other professionals (professionals i.e. , PA, SENIOR QUALITY CONTROL INSPECTOR, lab, RT, psych nurse, web content & social media manager, church musician, teacher, court officer, correctional casework specialist)? Give summary @ -Spoke with Dr. Jones who accepted the admission. Was smoking cessation discussed for >3mins.? @ -No Was critical care preformed (if so, how long)? @ -No Were there social determinants of health that impacted care today? How? (Homelessness, low income, unemployed, alcoholism, drug addiction, transportation, low edu. Level, literacy, decrease access to med. care, long term, rehab)? @ -No Was there de-escalation of care discussed even if they declined (Discuss DNR or withdrawal of care, Hospice)? DNR status @ -No What co-morbidities impacted this encounter? (DM, HTN, Smoking, COPD, CAD, Cancer, CVA, ARF, Chemo, Hep., AIDS, mental health diagnosis, sleep apnea, morbid obesity)? @ -Insulin-dependent diabetes Was patient admitted / discharged? Hospital course, mention meds given and route, prescriptions, significant lab abnormalities, going to OR and other pertinent info. @ -Patient presents emergency department complaining of weakness, high blood sugars, as well as possible cellulitis of her bilateral lower extremities. Has been noncompliant with at least her insulin medication for the last few days as her has been admitted at our hospital. Denies any pain other than on her legs. Denies fevers or chills. Endorses mild cough. We will obtain labs to evaluate for possible DKA, as well as cellulitis. Patient will not be given IV fluids at this time as we are concerned for possible volume overload due to her orthopnea. We will evaluate the patient for possible volume overload prior to administering fluids. She will be empirically started on vancomycin. Isaak mary ann was in agreement this plan. I will provide her with a dose of insulin as well for her hyperglycemia. Patient's chest x-ray unremarkable. EKG shows no signs of acute ischemia. Labs are remarkable for no evidence of DKA. Slight lactic acidosis which does clear. Patient is hyperglycemic. Remainder the labs unremarkable. I updated the patient. She will be admitted for debility as well as cellulitis. We will continue with vancomycin. Infectious disease consulted. I spoke with the admitting provider, Dr. Jones who accepted the admission. Patient was in agreement this plan. Undiagnosed new problem with uncertain prognosis? @ -No Drug Therapy requiring intensive monitoring for toxicity (Heparin, Nitro, Insulin, Cardizem)? @ -No Were any procedures done? @ -No Diagnosis/symptom? @ -Debility, weakness, cellulitis, hyperglycemia Acute, or Chronic, or Acute on Chronic? @ -Acute Uncomplicated (without systemic symptoms) or Complicated (systemic symptoms)? @ -Complicated Side effects of treatment? @ -None Exacerbation, Progression, or Severe Exacerbation] @ -No Poses a threat to life or bodily function? @ -Potentially, yes - Lab Data Result diagrams: 11/23/23 15:15 11/23/23 15:15 Lab Results 11/23/23 11/23/23 11/23/23 Range/Units 15:15 15:15 15:15 WBC 7.1 (3.8-10.6) k/uL RBC 4.07 (3.80-5.40) m/uL Hgb 13.1 (11.4-16.0) gm/dL Hct 40.1 (34.0-46.0) % MCV 98.5 (80.0-100.0) fL MCH 32.1 (25.0-35.0) pg MCHC 32.5 (31.0-37.0) g/dL RDW 14.2 (11.5-15.5) % Plt Count 225 (150-450) k/uL MPV 7.0 Neutrophils % 71 % Lymphocytes % 21 % Monocytes % 5 % Eosinophils % 1 % Basophils % 0 % Neutrophils # 5.0 (1.3-7.7) k/uL Lymphocytes # 1.5 (1.0-4.8) k/uL Monocytes # 0.3 (0-1.0) k/uL Eosinophils # 0.1 (0-0.7) k/uL Basophils # 0.0 (0-0.2) k/uL Hypochromasia Slight PT 11.8 (10.0-12.5) sec INR 1.1 (<1.2) APTT 24.9 (22.0-30.0) sec VBG pH (7.31-7.41) VBG pCO2 (37-51) mmHg VBG HCO3 (24-28) mmol/L Sodium (137-145) mmol/L Potassium (3.5-5.1) mmol/L Chloride (98-107) mmol/L Carbon Dioxide (22-30) mmol/L Anion Gap mmol/L BUN (7-17) mg/dL Creatinine (0.52-1.04) mg/dL Est GFR (CKD-EPI)AfAm (>60 ml/min/1.73 sqM) Est GFR (CKD-EPI)NonAf (>60 ml/min/1.73 sqM) Glucose (74-99) mg/dL Lactic Ac Sepsis Rflx Plasma Lactic Acid Cj (0.7-2.0) mmol/L Calcium (8.4-10.2) mg/dL Magnesium (1.6-2.3) mg/dL Total Bilirubin (0.2-1.3) mg/dL AST (14-36) U/L ALT (4-34) U/L Alkaline Phosphatase (38-126) U/L NT-Pro-B Natriuret Pep pg/mL Total Protein (6.3-8.2) g/dL Albumin (3.5-5.0) g/dL Urine Color Yellow Urine Appearance Clear (Clear) Urine pH 6.5 (5.0-8.0) Ur Specific [place] 1.016 (1.001-1.035) Urine Protein Negative (Negative) Urine Glucose (UA) 3+ H (Negative) Urine Ketones Negative (Negative) Urine Blood Negative (Negative) Urine Nitrite Negative (Negative) Urine Bilirubin Negative (Negative) Urine Urobilinogen <2.0 (<2.0) mg/dL Ur Leukocyte Esterase Negative (Negative) Acetone, Qual (Negative) Influenza Type A (PCR) (Not Detectd) Influenza Type B (PCR) (Not Detectd) RSV (PCR) (Not Detectd) SARS-CoV-2 (PCR) (Not Detectd) 11/23/23 11/23/23 11/23/23 Range/Units 15:15 15:15 15:15 WBC (3.8-10.6) k/uL RBC (3.80-5.40) m/uL Hgb (11.4-16.0) gm/dL Hct (34.0-46.0) % MCV (80.0-100.0) fL MCH (25.0-35.0) pg MCHC (31.0-37.0) g/dL RDW (11.5-15.5) % Plt Count (150-450) k/uL MPV Neutrophils % % Lymphocytes % % Monocytes % % Eosinophils % % Basophils % % Neutrophils # (1.3-7.7) k/uL Lymphocytes # (1.0-4.8) k/uL Monocytes # (0-1.0) k/uL Eosinophils # (0-0.7) k/uL Basophils # (0-0.2) k/uL Hypochromasia PT (10.0-12.5) sec INR (<1.2) APTT (22.0-30.0) sec VBG pH 7.44 H (7.31-7.41) VBG pCO2 51 (37-51) mmHg VBG HCO3 35 H (24-28) mmol/L Sodium 134 L (137-145) mmol/L Potassium 3.9 (3.5-5.1) mmol/L Chloride 92 L (98-107) mmol/L Carbon Dioxide 36 H (22-30) mmol/L Anion Gap 6 mmol/L BUN 19 H (7-17) mg/dL Creatinine 0.69 (0.52-1.04) mg/dL Est GFR (CKD-EPI)AfAm >90 (>60 ml/min/1.73 sqM) Est GFR (CKD-EPI)NonAf 81 (>60 ml/min/1.73 sqM) Glucose 389 H (74-99) mg/dL Lactic Ac Sepsis Rflx Plasma Lactic Acid Cj 2.3 H* (0.7-2.0) mmol/L Calcium 9.3 (8.4-10.2) mg/dL Magnesium 1.6 (1.6-2.3) mg/dL Total Bilirubin 0.9 (0.2-1.3) mg/dL AST 30 (14-36) U/L ALT 22 (4-34) U/L Alkaline Phosphatase 79 (38-126) U/L NT-Pro-B Natriuret Pep 1200 pg/mL Total Protein 6.9 (6.3-8.2) g/dL Albumin 3.9 (3.5-5.0) g/dL Urine Color Urine Appearance (Clear) Urine pH (5.0-8.0) Ur Specific [place] (1.001-1.035) Urine Protein (Negative) Urine Glucose (UA) (Negative) Urine Ketones (Negative) Urine Blood (Negative) Urine Nitrite (Negative) Urine Bilirubin (Negative) Urine Urobilinogen (<2.0) mg/dL Ur Leukocyte Esterase (Negative) Acetone, Qual Negative (Negative) Influenza Type A (PCR) (Not Detectd) Influenza Type B (PCR) (Not Detectd) RSV (PCR) (Not Detectd) SARS-CoV-2 (PCR) (Not Detectd) 11/23/23 11/23/23 Range/Units 15:15 16:10 WBC (3.8-10.6) k/uL RBC (3.80-5.40) m/uL Hgb (11.4-16.0) gm/dL Hct (34.0-46.0) % MCV (80.0-100.0) fL MCH (25.0-35.0) pg MCHC (31.0-37.0) g/dL RDW (11.5-15.5) % Plt Count (150-450) k/uL MPV Neutrophils % % Lymphocytes % % Monocytes % % Eosinophils % % Basophils % % Neutrophils # (1.3-7.7) k/uL Lymphocytes # (1.0-4.8) k/uL Monocytes # (0-1.0) k/uL Eosinophils # (0-0.7) k/uL Basophils # (0-0.2) k/uL Hypochromasia PT (10.0-12.5) sec INR (<1.2) APTT (22.0-30.0) sec VBG pH (7.31-7.41) VBG pCO2 (37-51) mmHg VBG HCO3 (24-28) mmol/L Sodium (137-145) mmol/L Potassium (3.5-5.1) mmol/L Chloride (98-107) mmol/L Carbon Dioxide (22-30) mmol/L Anion Gap mmol/L BUN (7-17) mg/dL Creatinine (0.52-1.04) mg/dL Est GFR (CKD-EPI)AfAm (>60 ml/min/1.73 sqM) Est GFR (CKD-EPI)NonAf (>60 ml/min/1.73 sqM) Glucose (74-99) mg/dL Lactic Ac Sepsis Rflx Y Plasma Lactic Acid Cj (0.7-2.0) mmol/L Calcium (8.4-10.2) mg/dL Magnesium (1.6-2.3) mg/dL Total Bilirubin (0.2-1.3) mg/dL AST (14-36) U/L ALT (4-34) U/L Alkaline Phosphatase (38-126) U/L NT-Pro-B Natriuret Pep pg/mL Total Protein (6.3-8.2) g/dL Albumin (3.5-5.0) g/dL Urine Color Urine Appearance (Clear) Urine pH (5.0-8.0) Ur Specific [place] (1.001-1.035) Urine Protein (Negative) Urine Glucose (UA) (Negative) Urine Ketones (Negative) Urine Blood (Negative) Urine Nitrite (Negative) Urine Bilirubin (Negative) Urine Urobilinogen (<2.0) mg/dL Ur Leukocyte Esterase (Negative) Acetone, Qual (Negative) Influenza Type A (PCR) Not Detected (Not Detectd) Influenza Type B (PCR) Not Detected (Not Detectd) RSV (PCR) Not Detected (Not Detectd) SARS-CoV-2 (PCR) Not Detected (Not Detectd) - EKG Data -: EKG Interpreted by Me EKG Comments: 12-lead Electrocardiogram Interpretation Note EKG was reviewed and interpreted by myself. 12-lead ECG performed at 1453 is interpreted by me as revealing atrial fibrillation rate controlled at a rate of 81 beats per minute. [place] appears normal. QRS duration is 112 ms, QTc is 434 ms.. There were no ST or T wave abnormalities to suggest myocardial ischemia or injury. R wave progression across the precordium was satisfactory. By my interpretation this EKG is non-diagnostic for acute ischemia. Compared with EKG from June 17, 2023 with no significant change. Patient is in RVR on prior EKG but otherwise no obvious acute difference. Disposition Clinical Impression: Weakness, Debility, Cellulitis, Hyperglycemia Disposition: ADMITTED IP TO THIS HOSP Condition: Stable Time of Disposition: 16:53
[2023-11-23 15:28] LABS: VBG PH 7.44 (7.31-7.41)
[2023-11-23 15:30] LABS: Basophils % (A) 0 %; Eosinophils # (A) 0.1 k/uL (0-0.7); Eosinophils % (A) 1 %; HCT 40.1 % (34.0-46.0); HGB 13.1 gm/dL (11.4-16.0); Hypochromasia Slight; Lymphocytes # (A) 1.5 k/uL (1.0-4.8); Lymphocytes % (A) 21 %; MCH 32.1 pg (25.0-35.0); MCHC 32.5 g/dL (31.0-37.0); MCV 98.5 fL (80.0-100.0); Monocytes # (A) 0.3 k/uL (0-1.0); Monocytes % (A) 5 %; Neutrophils % (A) 71 %; Platelet Count 225 k/uL (150-450); RBC 4.07 m/uL (3.80-5.40); RDW 14.2 % (11.5-15.5); WBC 7.1 k/uL (3.8-10.6)
[2023-11-23] MEDS: VANCOMYCIN 2,000 MG in SODIUM CHLORIDE 0.9% 500 ML 500 ML IVPB STA (15:36)
--- NOTE | 2023-11-23 15:42 | XR ---
EXAMINATION TYPE: XR chest 2V DATE OF EXAM: 11/23/2023 COMPARISON: 06/17/2023 HISTORY: Chest pain TECHNIQUE: Frontal and lateral views of the chest are obtained. FINDINGS: There is no focal air space opacity. No evidence for pneumothorax. No pleural effusion. The cardiac silhouette size is within normal limits. The osseous structures are grossly intact. IMPRESSION: 1. No acute cardiopulmonary process. [facility], , 11/23/2023 3:40 PM
[2023-11-23 15:46] LABS: INR 1.1 (<1.2); Partial Thromboplastin Time 24.9 sec (22.0-30.0); Prothrombin Time 11.8 sec (10.0-12.5)
[2023-11-23 15:51] LABS: ALT 22 U/L (4-34); AST 30 U/L (14-36); African American GFR (CKD) >90 (>60 ml/min/1.73 sqM); Albumin 3.9 g/dL (3.5-5.0); Alkaline Phosphatase 79 U/L (38-126); Anion Gap 6 mmol/L; Blood Urea Nitrogen 19 mg/dL (7-17); Calcium 9.3 mg/dL (8.4-10.2); Carbon Dioxide 36 mmol/L (22-30); Chloride 92 mmol/L (98-107); Glucose 389 mg/dL (74-99); Magnesium 1.6 mg/dL (1.6-2.3); Non-African American GFR(CKD) 81 (>60 ml/min/1.73 sqM); Potassium 3.9 mmol/L (3.5-5.1); Sodium 134 mmol/L (137-145); Total Bilirubin 0.9 mg/dL (0.2-1.3); Total Protein 6.9 g/dL (6.3-8.2)
[2023-11-23 16:01] LABS: NT-Pro-B-Type Natriuretic Pept 1200 pg/mL
[2023-11-23 16:33] LABS: Appearance,Urine Clear (Clear); Bilirubin,Urine Negative (Negative); Blood,Urine Negative (Negative); Color,Urine Yellow; Glucose,Urine (UA) 3+ (Negative); Ketones,Urine Negative (Negative); Leukocyte Esterase,Urine Negative (Negative); Nitrite,Urine Negative (Negative); PH, Urine 6.5 (5.0-8.0); Protein,Urine Negative (Negative); Specific Gravity,Urine 1.016 (1.001-1.035); Urobilinogen,Urine <2.0 mg/dL (<2.0)
[2023-11-23] MEDS ORDERED: NALOXONE 0.4 MG/ML 1 ML VIAL IV PRN (16:53)
[2023-11-23] MEDS ORDERED: ONDANSETRON ODT 8 MG TAB.RAPDIS PO PRN (16:55)
[2023-11-23] MEDS ORDERED: DEXTROSE 50% SYRINGE 50 ML IVP PRN ×2 (16:56)
[2023-11-23] MEDS: INSULIN ASPART (NovoLOG) 100 UNIT/ML VIAL SQ SCH (17:40)
[2023-11-23] MEDS: oxyCODONE-APAP 7.5-325MG 1 EACH TAB PO SCH (17:40)
[2023-11-23] MEDS: SODIUM CHLORIDE 0.9% 500 ML 500 ML IV STA (17:42)
[2023-11-23] MEDS: metFORMIN 500 MG TAB PO SCH (17:43)
[2023-11-23] MEDS: INSULIN ASPART (NovoLOG) 100 UNIT/ML VIAL SQ ONE (17:43)
[2023-11-23] MEDS: GABAPENTIN 400 MG CAP PO SCH (17:43)
[2023-11-23] MEDS: APIXABAN 5 MG TAB PO SCH (17:43)
[2023-11-23] MEDS: BUMETANIDE 1 MG TAB PO SCH (17:43)
[2023-11-23] MEDS: POTASSIUM CHLORIDE ER 20 MEQ TAB.ER PO SCH (17:43)
--- NOTE | 2023-11-23 19:50 | P.HPIM ---
History of Present Illness This is a pleasant 83 years old female with past medical history of multiple medical problems including diabetes mellitus, atrial fibrillation. Patient presents to the hospital because of generalized weakness and inability to take care of herself, after her been hospitalized in this same facilityIn the last few days. Patient states she has a cleaning lady who came to the house and told her she does not look good and asked me to come to the hospital. Patient complains from pain all over her body, however she has this problem listed one of her chronic problems. However she is complaining from discomfort in her left leg which looks slightly more pink and swollen compared to the other side, also slightly warm. There is no open wound or discharge. Patient however denies any GI/ symptom. No chest pain or dyspnea. She has been complaining from dizziness over the last 2 days especially when she is lying down and trying to stand up. No headache weakness or numbness with lateralization At baseline she uses a walker. She denies smoking or alcohol. She is not sure about her home medication because usually her take care of that. She is afebrile, blood pressure stable Labs are unremarkable including CBC, BMP, liver enzymes, INR. pH is high 7.44. pCO2 is slightly elevated indicating respiratory compensation for metabolic alkalosis and this is more evident with elevated bicarb at 36. Mildly elevated lactic acid came back to reference range. Patient on admission received a bolus of 500 cc and is started on IV antibiotics with IV vancomycin and admitted infectious disease consult Review of Systems Review of systems CONSTITUTIONAL: No fever, no malaise, no fatigue. HEENT: No recent visual problems or hearing problems. Denied any sore throat. CARDIOVASCULAR: No orthopnea, PND, no palpitations, no syncope. PULMONARY: No shortness of breath, no cough, no hemoptysis. GASTROINTESTINAL: No diarrhea, no nausea, no vomiting, no abdominal pain. Normoactive bowel sounds. NEUROLOGICAL: No headaches, no weakness, no numbness. HEMATOLOGICAL: Denies any bleeding or petechiae. GENITOURINARY: Denies any burning micturition, frequency, or urgency. MUSCULOSKELETAL/RHEUMATOLOGICAL: Denies any joint pain, swelling, or any muscle pain. ENDOCRINE: Denies any polyuria or polydipsia. Past Medical History Past Medical History: Atrial Fibrillation, Coronary Artery Disease (CAD), Cancer, Diabetes Mellitus, Hyperlipidemia, Hypertension, Musculoskeletal Disorder, Neurologic Disorder, Osteoarthritis (OA), Pneumonia, Renal Disease, Rheumatoid Arthritis (RA), Skin Disorder, Thyroid Disorder Additional Past Medical History / Comment(s): Morbid obesity, chronic atrial fibrillation, diabetes mellitus type 2, hypertension, hyperlipidemia, spinal stenosis, osteoarthritis, hypothyroidism, hypertension, history of skin melanoma, history of bursitis with MRSA post I&D, rheumatoid arthritis, Sjogren's disease, 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 without any indication of ILD related to RA, Fall on July 22 transfer to [facility] for MRI, then Fall on 11/16/21 History of Any Multi-Drug Resistant Organisms: MRSA Date of last positivie culture/infection: 09/02/22 MDRO Source:: Right Leg Past Surgical History: Back Surgery, Breast Surgery, Cholecystectomy, Heart Catheterization, Joint Replacement, Orthopedic Surgery Additional Past Surgical History / Comment(s): Bilateral cataracts with lens implants, arthroscopies to lt wrist, gualberto knees, gualberot ankles, gualberto hips, lt hip replacment and redone, L/R shoulder sxs, rt breast bx-benign, egd/colonoscopy, skin cancer removal L arm, Lumbar fixnation possible broken Past Anesthesia/Blood Transfusion Reactions: No Reported Reaction Additional Past Anesthesia/Blood Transfusion Reaction / Comment(s): Pt has been told not to have anesthesia metabolized by the kidneys and has neurologic Sjogren's with post anesthesia paralysis. Past Psychological History: No Psychological Hx Reported Smoking Status: Former smoker Past Alcohol Use History: None Reported Past Drug Use History: None Reported - Past Family History Mother Family Medical History: CVA/TIA Additional Family Medical History / Comment(s): RUPTURED BOWEL Father Family Medical History: Cancer, Pneumonia Additional Family Medical History / Comment(s): ASPIRATIVE PNA Sister(s) Additional Family Medical History / Comment(s): at age 34 with lupus Medications and Allergies Home Medications Medication Instructions Recorded Confirmed Type Latanoprost [Xalatan 0.005%] 1 drop BOTH EYES HS@0000 08/11/17 11/23/23 History predniSONE 10 mg PO DAILY@0800 07/23/21 11/23/23 History Calcium Citrate/Vitamin D3 1 tab PO BID@0800,1800 11/16/21 11/23/23 History [Citracal + D Maximum Caplet] Digoxin [Lanoxin] 125 mcg PO Q48H 11/16/21 11/23/23 History Nitroglycerin Sl Tabs [Nitrostat] 0.4 mg SL Q5M PRN 11/16/21 11/23/23 History Adalimumab [Humira(Cf) Pen] 40 mg SQ Q14D 01/09/22 11/23/23 History Apixaban [Eliquis] 5 mg PO BID@0800,1800 05/02/22 11/23/23 History INSULIN LISPRO (HumaLOG) [humaLOG] 6 units SQ AC-TID 05/02/22 11/23/23 History INSULIN LISPRO (HumaLOG) [humaLOG] See Protocol SQ AC-TID PRN 05/02/22 11/23/23 History Multivit-Min/FA/Lycopen/Lutein 1 tab PO DAILY@0800 05/02/22 11/23/23 History [Centrum Silver Tablet] Levothyroxine Sodium [Synthroid] 150 mcg PO HS@0000 09/02/22 11/23/23 History traZODone HCL [Desyrel] 50 mg PO HS@0000 12/15/22 11/23/23 History Tolterodine ER [Detrol LA] 4 mg PO DAILY@1200 05/15/23 11/23/23 History metFORMIN HCL [Glucophage] 500 mg PO DAILY@1800 05/25/23 11/23/23 History Acetaminophen Tab [Tylenol Tab] 500 mg PO QID@00,06,,11/23/23 11/23/23 History Bumetanide [BUMEX] 2 mg PO BID@0800,1800 11/23/23 11/23/23 History Cyclobenzaprine [Flexeril] 10 mg PO HS@0000 11/23/23 11/23/23 History Gabapentin [Neurontin] 400 mg PO QID@00,06,12,11/23/23 11/23/23 History Insulin Glargine,Hum.rec.anlog 24 units SQ DAILY@1800 11/23/23 11/23/23 History [Lantus Solostar Pen] Insulin Glargine,Hum.rec.anlog 34 units SQ DAILY@0800 11/23/23 11/23/23 History [Lantus Solostar Pen] Loratadine [Claritin] 10 mg PO DAILY@0811/23/23 11/23/23 History Magnesium Oxide [Mag-Ox] 250 mg PO DAILY@0800 11/23/23 11/23/23 History Ondansetron Odt [Zofran Odt] 8 mg PO TID PRN 11/23/23 11/23/23 History Potassium Chloride ER [K-Dur 20] 20 meq PO BID@0800,1800 11/23/23 11/23/23 History Semaglutide [Ozempic] 0.5 mg SQ FR 11/23/23 11/23/23 History oxyCODONE-APAP 7.5-325MG [Percocet 1 tab PO QID@00,06,12,18 11/23/23 11/23/23 History 7.5-325 mg] Allergies Allergy/AdvReac Type Severity Reaction Status Date / Time adhesive Allergy Rash/Hives Verified 11/23/23 16:16 cephalexin [From Keflex] Allergy Rash/Hives Verified 11/23/23 16:16 grass pollen Allergy Unknown Verified 11/23/23 16:16 mold Allergy Unknown Verified 11/23/23 16:16 newspaper ink Allergy Mild Unknown Uncoded 06/18/23 04:22 Physical Exam Vitals: Vital Signs Temp Pulse Pulse Resp BP Pulse Ox 11/23/23 15:20 86 11/23/23 14:32 98.4 F 86 18 145/65 94 L Intake and Output 11/23/23 11/23/23 11/23/23 06:59 14:59 22:59 Other: Weight 122.47 kg GENERAL: The patient is alert and oriented x3, not in any acute distress. Well developed, well nourished. HEENT: Pupils are round and equally reacting to light. EOMI. No scleral icterus. No conjunctival pallor. Normocephalic, atraumatic. No pharyngeal erythema. No thyromegaly. CARDIOVASCULAR: S1 and S2 present. No murmurs, rubs, or gallops. PULMONARY: Chest is clear to auscultation, no wheezing , no crackles. ABDOMEN: Soft, nontender, nondistended, normoactive bowel sounds. No palpable organomegaly. MUSCULOSKELETAL: No joint swelling or deformity. EXTREMITIES: No cyanosis, clubbing, or pedal edema. Left leg is mildly warm, swollen and pink NEUROLOGICAL: Gross neurological examination did not reveal any focal deficits. SKIN: No rashes. no petechiae. Results CBC & Chem 7: 11/23/23 15:15 11/23/23 15:15 Labs: Abnormal Lab Results - Last 24 Hours (Table) 11/23/23 11/23/23 11/23/23 Range/Units 15:15 15:15 15:15 VBG pH (7.31-7.41) VBG HCO3 (24-28) mmol/L Sodium 134 L (137-145) mmol/L Chloride 92 L (98-107) mmol/L Carbon Dioxide 36 H (22-30) mmol/L BUN 19 H (7-17) mg/dL Glucose 389 H (74-99) mg/dL Plasma Lactic Acid Cj 2.3 H* (0.7-2.0) mmol/L Urine Glucose (UA) 3+ H (Negative) 11/23/23 Range/Units 15:15 VBG pH 7.44 H (7.31-7.41) VBG HCO3 35 H (24-28) mmol/L Sodium (137-145) mmol/L Chloride (98-107) mmol/L Carbon Dioxide (22-30) mmol/L BUN (7-17) mg/dL Glucose (74-99) mg/dL Plasma Lactic Acid Cj (0.7-2.0) mmol/L Urine Glucose (UA) (Negative) Assessment and Plan Assessment: Acute left leg cellulitis, rule out DVT Diabetes mellitus with hyperglycemia Generalized weakness and dehydration Unable to take care of herself Atrial fibrillation Coronary artery disease Diabetes mellitus Hypertension Hyperlipidemia History of osteoarthritis Hypothyroidism Rheumatoid arthritis Spinal stenosis Plan: Continue with IV hydration with normal saline Check pH in the morning Patient started on IV vancomycin. Follow-up with infectious disease consult Check ultrasound of the left leg. Labs and medication were reviewed.. Continue same treatment. Continue with symptomatic treatment. Resume home medication. Monitor lytes and vitals. DVT and GI prophylaxis. Further recommendations depends on the clinical course of t he patient DVT prophylaxis: Eliquis GI Prophylaxis: Pepcid PT/OT: Pending Prognosis is guarded
--- NOTE | 2023-11-23 21:15 | US ---
EXAMINATION TYPE: US venous doppler duplex LE LT DATE OF EXAM: 11/23/2023 7:41 PM COMPARISON: NONE CLINICAL INDICATION: Female, 83 years old with history of left leg pain; Patient states left leg pain and redness. Hx cellulitis. No hx dvt SIDE PERFORMED: Left TECHNIQUE: The lower extremity deep venous system is examined utilizing real time linear array sonog matthew with graded compression, doppler sonography and color-flow sonography. VESSELS IMAGED: Common Femoral Vein Deep Femoral Vein Greater Saphenous Vein * Femoral Vein Popliteal Vein Small Saphenous Vein * Proximal Calf Veins (* superficial vessels) FINDINGS: Grayscale, color doppler, spectral doppler imaging performed of the deep veins of the left lower extremity. There is normal flow, compressibility, and vascular waveforms. IMPRESSION: Negative for DVT, left lower extremity. [facility], , 11/23/2023 9:13 PM
[2023-11-24] MEDS: CYCLOBENZAPRINE 10 MG TAB PO SCH (00:23)
[2023-11-24] MEDS: LEVOTHYROXINE 75 MCG TAB PO SCH (00:23)
[2023-11-24] MEDS: SODIUM CHLORIDE 0.9% 1,000 ML IV SCH (00:24)
[2023-11-24] MEDS: traZODone HCL 50 MG TAB PO SCH (00:24)
[2023-11-24] MEDS: LATANOPROST 0.005% OPHTH DROPS 2.5 ML BTL BOTH EYES SCH (00:37)
[2023-11-24] MEDS ORDERED: GABAPENTIN 400 MG CAP ONE (05:21)
[2023-11-24] MEDS ORDERED: oxyCODONE-APAP 7.5-325MG 1 EACH TAB ONE (05:21)
[2023-11-24 07:55] LABS: VBG PH 7.4 (7.31-7.41)
[2023-11-24] MEDS ORDERED: DEXTROSE 50% SYRINGE 50 ML IVP PRN ×2 (09:27)
--- NOTE | 2023-11-24 09:31 | P.PN ---
Subjective Hospital course: This is a pleasant 83 years old female with past medical history of multiple medical problems including diabetes mellitus, atrial fibrillation. Patient presents to the hospital because of generalized weakness and inability to take care of herself, after her been hospitalized in this same facilityIn the last few days. Patient states she has a cleaning lady who came to the house and told her she does not look good and asked me to come to the hospital. Patient complains from pain all over her body, however she has this problem listed one of her chronic problems. However she is complaining from discomfort in her left leg which looks slightly more pink and swollen compared to the other side, also slightly warm. There is no open wound or discharge. Patient however denies any GI/ symptom. No chest pain or dyspnea. She has been complaining from dizziness over the last 2 days especially when she is lying down and trying to stand up. No headache weakness or numbness with lateralization At baseline she uses a walker. She denies smoking or alcohol. She is not sure about her home medication because usually her take care of that. She is afebrile, blood pressure stable Labs are unremarkable including CBC, BMP, liver enzymes, INR. pH is high 7.44. pCO2 is slightly elevated indicating respiratory compensation for metabolic alkalosis and this is more evident with elevated bicarb at 36. Mildly elevated lactic acid came back to reference range. Patient on admission received a bolus of 500 cc and is started on IV antibiotics with IV vancomycin and admitted infectious disease consult 11/23 Patient looks better today she is sitting in chair less dizzy Still has left leg swelling warmth and pinkish discoloration, no significant pain Ultrasound of the leg is negative for DVT, I reviewed the ultrasound by myself and I agree Patient remains on IV vancomycin pH is improved today to reference range at 7.4 with IV hydration, currently she is on normal saline 75 mL/h Eliquis is resumed. Other labs are still pending Problems and management plan are discussed with the patient in details and she verbalized understanding and acceptance She is afebrile and hemodynamically stable today. Review of systems CONSTITUTIONAL: No fever, no malaise, no fatigue. HEENT: No recent visual problems or hearing problems. Denied any sore throat. CARDIOVASCULAR: No orthopnea, PND, no palpitations, no syncope.s. HEMATOLOGICAL: Denies any bleeding or petechiae. GENITOURINARY: Denies any burning micturition, frequency, or urgency. MUSCULOSKELETAL/RHEUMATOLOGICAL: Denies any joint pain, swelling, or any muscle pain. ENDOCRINE: Denies any polyuria or polydipsia. Active Medications Generic Name Dose Route Start Last Admin Trade Name Freq PRN Reason Stop Dose Admin Acetaminophen 650 mg 11/23/23 16:53 Acetaminophen Tab 325 Mg Tab PO Q6HR PRN Mild Pain or Fever > 100.5 Apixaban 5 mg 11/23/23 18:00 11/23/23 17:43 Apixaban 5 Mg Tab PO 5 mg BID@0800,1800 A[facility]OSH Administration Protocol Bumetanide 2 mg 11/23/23 18:00 11/23/23 17:43 Bumetanide 1 Mg Tab PO 2 mg BID@0800,1800 A[facility]OS[facility] Administration Cyclobenzaprine HCl 10 mg 11/24/23 00:00 11/24/23 00:23 Cyclobenzaprine 10 Mg Tab PO 10 mg HS@0000 A[facility]OSH Administration Dextrose/Water 50 ml 11/23/23 16:56 Dextrose 50% Syringe 50 Ml IVP PER PROTOCOL PRN Hypoglycemia Protocol Dextrose/Water 25 ml 11/23/23 16:56 Dextrose 50% Syringe 50 Ml IVP PER PROTOCOL PRN Hypoglycemia Protocol Dextrose/Water 25 ml 11/24/23 09:27 Dextrose 50% Syringe 50 Ml IVP PER PROTOCOL PRN Hypoglycemia Protocol Dextrose/Water 50 ml 11/24/23 09:27 Dextrose 50% Syringe 50 Ml IVP PER PROTOCOL PRN Hypoglycemia Protocol Digoxin 125 mcg 11/24/23 09:00 Digoxin 125 Mcg Tab PO Q48H [facility] Gabapentin 400 mg 11/23/23 18:00 11/24/23 06:00 Gabapentin 400 Mg Cap PO Not Given QID@00,06,12,18 [facility] Vancomycin HCl 2,000 mg/ 500 mls @ 167 mls/hr 11/24/23 08:00 Sodium Chloride IVPB Q16H [facility] Sodium Chloride 1,000 mls @ 75 mls/hr 11/23/23 19:45 11/24/23 00:24 Saline 0.9% IV Not Given .[id number] [facility] Insulin Aspart 0 unit 11/24/23 12:30 Insulin Aspart (Novolog) 100 Unit/Ml Vial SQ ACHS [facility] Protocol Latanoprost 1 drops 11/24/23 00:00 11/24/23 00:37 Latanoprost 0.005% Ophth Drops 2.5 Ml Btl BOTH EYES 1 drops HS@0000 [facility] Administration Levothyroxine Sodium 150 mcg 11/24/23 00:00 11/24/23 00:23 Levothyroxine 75 Mcg Tab PO 150 mcg HS@0000 [facility] Administration Loratadine 10 mg 11/24/23 08:00 Loratadine 10 Mg Tab PO DAILY@0800 [facility] Magnesium Oxide 400 mg 11/24/23 08:00 Magnesium Oxide 400 Mg Tab PO DAILY@0800 [facility] Metformin HCl 500 mg 11/23/23 18:00 11/23/23 17:43 Metformin 500 Mg Tab PO 500 mg DAILY@1800 [facility] Administration Naloxone HCl 0.2 mg 11/23/23 16:53 Naloxone 0.4 Mg/Ml 1 Ml Vial IV Q2M PRN Opioid Reversal Patient's Own ( 40 mg 12/01/23 09:00 Adalimumab [Humira( SQ Cf) Pen] 40 Mg/0.4 Q14D [facility] Ml Pen.Ij.Kit) Patient's Own ( 0.5 mg 11/24/23 09:00 Semaglutide [Ozempic SQ ] 0.25 Mg/0.368 Ml FR [facility] Pen.Injctr) Ondansetron HCl 8 mg 11/23/23 16:55 Ondansetron Odt 8 Mg Tab.Rapdis PO TID PRN Nausea Oxybutynin Chloride 10 mg 11/24/23 12:00 Oxybutynin 10 Mg Tab.Er.24 PO DAILY@1200 [facility] Oxycodone/Acetaminophen 1 each 11/23/23 18:00 11/24/23 06:00 Oxycodone-Apap 7.5-325mg 1 Each Tab PO Not Given QID@00,06,12,18 [facility] Potassium Chloride 20 meq 11/23/23 18:00 11/23/23 17:43 Potassium Chloride Er 20 Meq Tab.Er PO 20 meq BID@0800,1800 [facility] Administration Prednisone 10 mg 11/24/23 08:00 Prednisone 10 Mg Tab PO DAILY@0800 [facility] Trazodone HCl 50 mg 11/24/23 00:00 11/24/23 00:24 Trazodone Hcl 50 Mg Tab PO 50 mg HS@0000 [facility] Administration Objective - Vital Signs Vital signs: Vital Signs Temp 98.0 F 11/24/23 07:18 Pulse 64 11/24/23 07:18 Resp 16 11/24/23 07:18 BP 104/58 11/24/23 07:18 Pulse Ox 99 11/24/23 07:18 FiO2 Intake & Output 11/23/23 11/24/23 11/24/23 18:59 06:59 18:59 Intake Total 520 Balance 520 Weight 122.47 kg Intake: Oral 520 Other: # Voids 5 - Exam GENERAL: The patient is alert and oriented x3, not in any acute distress. Well developed, well nourished. HEENT: Pupils are round and equally reacting to light. EOMI. No scleral icterus. No conjunctival pallor. Normocephalic, atraumatic. No pharyngeal erythema. No thyromegaly. CARDIOVASCULAR: S1 and S2 present. No murmurs, rubs, or gallops. PULMONARY: Chest is clear to auscultation, no wheezing , no crackles. ABDOMEN: Soft, nontender, nondistended, normoactive bowel sounds. No palpable organomegaly. MUSCULOSKELETAL: No joint swelling or deformity. -EXTREMITIES: No cyanosis, clubbing, or pedal edema. Left leg mildly warm, pink and swollen NEUROLOGICAL: Gross neurological examination did not reveal any focal deficits. SKIN: No rashes. no petechiae. - Labs CBC & Chem 7: 11/23/23 15:15 11/23/23 15:15 Labs: Abnormal Lab Results - Last 24 Hours (Table) 11/23/23 11/23/23 11/23/23 Range/Units 15:15 15:15 15:15 VBG pH (7.31-7.41) VBG pCO2 (37-51) mmHg VBG HCO3 (24-28) mmol/L Sodium 134 L (137-145) mmol/L Chloride 92 L (98-107) mmol/L Carbon Dioxide 36 H (22-30) mmol/L BUN 19 H (7-17) mg/dL Glucose 389 H (74-99) mg/dL Plasma Lactic Acid Cj 2.3 H* (0.7-2.0) mmol/L Urine Glucose (UA) 3+ H (Negative) 11/23/23 11/24/23 Range/Units 15:15 06:51 VBG pH 7.44 H (7.31-7.41) VBG pCO2 54 H (37-51) mmHg VBG HCO3 35 H 34 H (24-28) mmol/L Sodium (137-145) mmol/L Chloride (98-107) mmol/L Carbon Dioxide (22-30) mmol/L BUN (7-17) mg/dL Glucose (74-99) mg/dL Plasma Lactic Acid Cj (0.7-2.0) mmol/L Urine Glucose (UA) (Negative) Assessment and Plan Assessment: Acute left leg cellulitis, acute DVT ruled out Diabetes mellitus with hyperglycemia Generalized weakness and dehydration Unable to take care of herself Atrial fibrillation Coronary artery disease Diabetes mellitus Hypertension Hyperlipidemia History of osteoarthritis Hypothyroidism Rheumatoid arthritis Spinal stenosis Plan: Continue with IV hydration with normal saline Continue with IV vancomycin Infectious disease team on the case Check inflammatory markers Labs and medication were reviewed.. Continue same treatment. Continue with symptomatic treatment. Resume home medication. Monitor lytes and vitals. DVT and GI prophylaxis. Further recommendations depends on the clinical course of the patient DVT prophylaxis: Eliquis GI Prophylaxis: Pepcid PT/OT: Pending Prognosis is guarded
[2023-11-24] MEDS: LORATADINE 10 MG TAB PO SCH (10:17)
[2023-11-24] MEDS: MAGNESIUM OXIDE 400 MG TAB PO SCH (10:17)
[2023-11-24] MEDS: predniSONE 10 MG TAB PO SCH (10:17)
[2023-11-24] MEDS: VANCOMYCIN 2,000 MG in SODIUM CHLORIDE 0.9% 500 ML 500 ML IVPB SCH (10:18)
[2023-11-24] MEDS: PATIENT'S OWN (Semaglutide [Ozempic] 0.25 MG/0.368 ML Pen.Injctr) SQ SCH (10:18)
[2023-11-24 11:07] LABS: Basophils # (A) 0.05 X 10*3/uL (0.00-0.10); Basophils % (A) 0.7 %; Eosinophils # (A) 0.21 X 10*3/uL (0.04-0.35); HCT 39.7 % (37.2-46.3); HGB 13.1 g/dL (12.0-15.0); Lymphocytes # (A) 2.64 X 10*3/uL (0.90-5.00); Lymphocytes % (A) 38.3 %; MCH 32.3 pg (27.0-32.0); Mean Platelet Volume 10.9 FL (9.5-12.2); Monocytes # (A) 0.61 X 10*3/uL (0.20-1.00); Monocytes % (A) 8.8 %; NRBC Per 100 WBC 0 X 10*3/uL (0.00-0.01); Neutrophils # (A) 3.37 X 10*3/uL (1.80-7.70); Neutrophils % (A) 48.9 %; Platelet Count 179 X 10*3/uL (140-440); RBC 4.05 X 10*6/uL (4.10-5.20); RDW 14.4 % (11.5-14.5)
[2023-11-24 11:47] LABS: ALT 20 U/L (8-44); AST 26 U/L (13-35); Albumin 3.9 g/dL (3.8-4.9); Albumin/Globulin Ratio 1.26 Ratio (1.60-3.17); Alkaline Phosphatase 84 U/L (41-126); BUN/Creat Ratio 21.25 Ratio (12.00-20.00); Calcium 9.3 mg/dL (8.7-10.3); Chloride 96 mmol/L (96-109); Globulin 3.1 g/dL (1.6-3.3); Glucose 294 mg/dL (70-110); Potassium 4.1 mmol/L (3.5-5.5); Sodium 140 mmol/L (135-145); Total Bilirubin 0.4 mg/dL (0.3-1.2)
[2023-11-24] MEDS: DIGOXIN 125 MCG TAB PO SCH (12:08)
[2023-11-24] MEDS: INSULIN ASPART (NovoLOG) 100 UNIT/ML VIAL SQ SCH (12:09)
[2023-11-24] MEDS: GABAPENTIN 400 MG CAP PO STA (12:09)
[2023-11-24] MEDS: OXYBUTYNIN 10 MG TAB.ER.24 PO SCH (12:09)
[2023-11-24 14:39] VITALS: BMI 33.7
[2023-11-24] MEDS: ACETAMINOPHEN TAB 325 MG TAB PO PRN (15:44)
[2023-11-24] MEDS: INSULIN DETEMIR (LEVEMIR) 100 UNIT/ML SYR SQ SCH (20:40)
--- NOTE | 2023-11-24 23:23 | P.CONS ---
History of Present Illness - Reason for Consult Consult date: 11/24/23 Left leg cellulitis Requesting physician: Meek E Sheet - Chief Complaint Left leg swelling redness x 2 days - History of Present Illness Patient is a 83-year-old female with a past medical history significant for atrial fibrillation coronary disease diabetes mellitus hypertension hyperlipidemia history of recurrent lower extremity cellulitis presenting to the hospital for evaluation of increasing swelling and redness to the left lower extremity that apparently has been getting worse for the day or 2 before presentation to the hospital patient denies any history of any trauma has been complaining of increasing swelling and redness to the left leg she did have a dull aching to sharp pain to the left leg especially with touch did not have any open wounds or blistering no drainage did have some chills but denies high- grade fever on presentation to the hospital patient was afebrile and no fever have been called subsequently patient was not tachycardic or hypotensive mildly hypoxic currently on 2 L nasal cannula oxygen patient did have white count of 7.1 creatinine has been normal lactic acid was elevated repeat is normal liver enzymes are normal urine has been negative patient did have lower extremity venous Doppler that was negative for DVT patient has been started on vancomycin because of Keflex allergy infectious disease was consulted for further management of antibiotic therapy Review of Systems Positive point and negatives has been mentioned in the HPI, complete review of systems was performed and all other systems are negative Past Medical History Past Medical History: Atrial Fibrillation, Coronary Artery Disease (CAD), Cancer, Diabetes Mellitus, Hyperlipidemia, Hypertension, Musculoskeletal Disorder, Neurologic Disorder, Osteoarthritis (OA), Pneumonia, Renal Disease, Rheumatoid Arthritis (RA), Skin Disorder, Thyroid Disorder Additional Past Medical History / Comment(s): Morbid obesity, chronic atrial fibrillation, diabetes mellitus type 2, hypertension, hyperlipidemia, spinal stenosis, osteoarthritis, hypothyroidism, hypertension, history of skin melanoma, history of bursitis with MRSA post I&D, rheumatoid arthritis, Sjogren's disease, 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 without any indication of ILD related to RA, Fall on July 22 transfer to [facility] for MRI, then Fall on 11/16/21 History of Any Multi-Drug Resistant Organisms: MRSA Year Discovered:: 09/02/22 MDRO Source:: Right Leg Past Surgical History: Back Surgery, Breast Surgery, Cholecystectomy, Heart Catheterization, Joint Replacement, Orthopedic Surgery Additional Past Surgical History / Comment(s): Bilateral cataracts with lens implants, arthroscopies to lt wrist, gualberto knees, gualberto ankles, gualberto hips, lt hip replacment and redone, L/R shoulder sxs, rt breast bx-benign, egd/colonoscopy, skin cancer removal L arm, Lumbar fixnation possible broken Past Anesthesia/Blood Transfusion Reactions: No Reported Reaction Additional Past Anesthesia/Blood Transfusion Reaction / Comm: Pt has been told not to have anesthesia metabolized by the kidneys and has neurologic Sjogren's with post anesthesia paralysis. Past Psychological History: No Psychological Hx Reported Additional Psychological History / Comment(s): . Smoking Status: Unknown if ever smoked Past Alcohol Use History: None Reported Additional Past Alcohol Use History / Comment(s): Pt started smoking in 3 and quit in 1969 Past Drug Use History: None Reported - Past Family History Mother Family Medical History: CVA/TIA Additional Family Medical History / Comment(s): RUPTURED BOWEL Father Family Medical History: Cancer, Pneumonia Additional Family Medical History / Comment(s): ASPIRATIVE PNA Sister(s) Additional Family Medical History / Comment(s): at age 34 with lupus Medications and Allergies Home Medications Medication Instructions Recorded Confirmed Type Latanoprost [Xalatan 0.005%] 1 drop BOTH EYES HS@0000 08/11/17 11/23/23 History predniSONE 10 mg PO DAILY@0800 07/23/21 11/23/23 History Calcium Citrate/Vitamin D3 1 tab PO BID@0800,1800 11/16/21 11/23/23 History [Citracal + D Maximum Caplet] Digoxin [Lanoxin] 125 mcg PO Q48H 11/16/21 11/23/23 History Nitroglycerin Sl Tabs [Nitrostat] 0.4 mg SL Q5M PRN 11/16/21 11/23/23 History Adalimumab [Humira(Cf) Pen] 40 mg SQ Q14D 01/09/22 11/23/23 History Apixaban [Eliquis] 5 mg PO BID@0800,1800 05/02/22 11/23/23 History INSULIN LISPRO (HumaLOG) [humaLOG] 6 units SQ AC-TID 05/02/22 11/23/23 History INSULIN LISPRO (HumaLOG) [humaLOG] See Protocol SQ AC-TID PRN 05/02/22 11/23/23 History Multivit-Min/FA/Lycopen/Lutein 1 tab PO DAILY@0800 05/02/22 11/23/23 History [Centrum Silver Tablet] Levothyroxine Sodium [Synthroid] 150 mcg PO HS@0000 09/02/22 11/23/23 History traZODone HCL [Desyrel] 50 mg PO HS@0000 12/15/22 11/23/23 History Tolterodine ER [Detrol LA] 4 mg PO DAILY@1200 05/15/23 11/23/23 History metFORMIN HCL [Glucophage] 500 mg PO DAILY@179905/25/23 11/23/23 History Acetaminophen Tab [Tylenol Tab] 500 mg PO QID@00,,,11/23/23 11/23/23 History Bumetanide [BUMEX] 2 mg PO BID@0800,179911/23/23 11/23/23 History Cyclobenzaprine [Flexeril] 10 mg PO HS@0000 11/23/23 11/23/23 History Gabapentin [Neurontin] 400 mg PO QID@00,06,,11/23/23 11/23/23 History Insulin Glargine,Hum.rec.anlog 24 units SQ DAILY@179911/23/23 11/23/23 History [Lantus Solostar Pen] Insulin Glargine,Hum.rec.anlog 34 units SQ DAILY@79911/23/23 11/23/23 History [Lantus Solostar Pen] Loratadine [Claritin] 10 mg PO DAILY@79911/23/23 11/23/23 History Magnesium Oxide [Mag-Ox] 250 mg PO DAILY@79911/23/23 11/23/23 History Ondansetron Odt [Zofran Odt] 8 mg PO TID PRN 11/23/23 11/23/23 History Potassium Chloride ER [K-Dur 20] 20 meq PO BID@0800,1800 11/23/23 11/23/23 History Semaglutide [Ozempic] 0.5 mg SQ FR 11/23/23 11/23/23 History oxyCODONE-APAP 7.5-325MG [Percocet 1 tab PO QID@00,06,12,11/23/23 11/23/23 History 7.5-325 mg] Allergies Allergy/AdvReac Type Severity Reaction Status Date / Time adhesive Allergy Rash/Hives Verified 11/23/23 16:16 cephalexin [From Keflex] Allergy Rash/Hives Verified 11/23/23 16:16 grass pollen Allergy Unknown Verified 11/23/23 16:16 mold Allergy Unknown Verified 11/23/23 16:16 newspaper ink Allergy Mild Unknown Uncoded 06/18/23 04:22 Physical Exam Vitals: Vital Signs Temp Pulse Pulse Resp BP BP Pulse Ox 11/24/23 09:40 98 11/24/23 07:18 98.0 F 64 16 104/58 99 11/23/23 20:15 98.0 F 84 17 133/73 98 11/23/23 20:10 86 16 118/73 94 L 11/23/23 15:20 86 11/23/23 14:32 98.4 F 86 18 145/65 94 L Intake and Output 11/23/23 11/24/23 11/24/23 22:59 06:59 14:59 Intake Total 520 Balance 520 Intake: Oral 520 Other: # Voids 5 Weight 122.47 kg GENERAL DESCRIPTION: Elderly female up in bed, no distress. No tachypnea or accessory muscle of respiration use. HEENT: Shows Pallor , no scleral icterus. Oral mucous membrane is dry. No pharyngeal erythema or thrush NECK: Trachea central, no thyromegaly. LUNGS: Unlabored breathing. Clear to auscultation anteriorly. No wheeze or crackle. HEART: S1, S2, regular rate and rhythm. No loud murmur ABDOMEN: Soft, no tenderness , guarding or rigidity, no organomegaly EXTREMITIES: Left lower extremity swelling minimal redness SKIN: No rash, no masses palpable. NEUROLOGICAL: The patient is awake, alert, oriented x3, mood and affect normal. Results CBC & Chem 7: 11/24/23 06:51 11/24/23 06:51 Labs: Abnormal Lab Results - Last 24 Hours (Table) 11/23/23 11/23/23 11/23/23 Range/Units 15:15 15:15 15:15 RBC (4.10-5.20) X 10*6/uL MCV (80.0-97.0) FL MCH (27.0-32.0) pg VBG pH (7.31-7.41) VBG pCO2 (37-51) mmHg VBG HCO3 (24-28) mmol/L Sodium 134 L (137-145) mmol/L Chloride 92 L (98-107) mmol/L Carbon Dioxide 36 H (22-30) mmol/L BUN 19 H (7-17) mg/dL Glucose 389 H (74-99) mg/dL Hemoglobin A1c (<=6.0) % Plasma Lactic Acid Cj 2.3 H* (0.7-2.0) mmol/L Urine Glucose (UA) 3+ H (Negative) 11/23/23 11/24/23 11/24/23 Range/Units 15:15 06:51 06:51 RBC (4.10-5.20) X 10*6/uL MCV (80.0-97.0) FL MCH (27.0-32.0) pg VBG pH 7.44 H (7.31-7.41) VBG pCO2 54 H (37-51) mmHg VBG HCO3 35 H 34 H (24-28) mmol/L Sodium (137-145) mmol/L Chloride (98-107) mmol/L Carbon Dioxide (22-30) mmol/L BUN (7-17) mg/dL Glucose (74-99) mg/dL Hemoglobin A1c 10.3 H (<=6.0) % Plasma Lactic Acid Cj (0.7-2.0) mmol/L Urine Glucose (UA) (Negative) 11/24/23 Range/Units 06:51 RBC 4.05 L (4.10-5.20) X 10*6/uL MCV 98.0 H (80.0-97.0) FL MCH 32.3 H (27.0-32.0) pg VBG pH (7.31-7.41) VBG pCO2 (37-51) mmHg VBG HCO3 (24-28) mmol/L Sodium (137-145) mmol/L Chloride (98-107) mmol/L Carbon Dioxide (22-30) mmol/L BUN (7-17) mg/dL Glucose (74-99) mg/dL Hemoglobin A1c (<=6.0) % Plasma Lactic Acid Cj (0.7-2.0) mmol/L Urine Glucose (UA) (Negative) Assessment and Plan (1) Allergy to cephalosporin Current Visit: No Status: Acute Code(s): Z88.1 - ALLERGY STATUS TO OTHER ANTIBIOTIC AGENTS SNOMED Code(s): 458543233 (2) Left leg cellulitis Current Visit: No Status: Acute Code(s): L03.116 - CELLULITIS OF LEFT LOWER LIMB SNOMED Code(s): 88919033486082900 Plan: 1patient with acute left lower extremity cellulitis in this patient who did have diffuse swelling redness likely streptococcal disease MRSA less likely, antibiotic started 2-Patient with a Keflex allergy that will limit the number of antibiotics safe to use 3-patient to continue with vancomycin pharmacy while watching kidney function closely and will transition to oral antibiotic on discharge We will follow on clinical condition and cultures to further adjust medication if needed Thank you for this consultation we will follow the patient along with you Dictation was produced using [employer] dictation software. please excuse any grammatical, word or spelling errors. Time with Patient: Greater than 30
[2023-11-25 04:12] LABS: African American GFR (CKD) >90 (>60 ml/min/1.73 sqM); Non-African American GFR(CKD) 81 (>60 ml/min/1.73 sqM)
[2023-11-25] MEDS ORDERED: INSULIN DETEMIR (LEVEMIR) 100 UNIT/ML SYR SQ ONE (12:30)
--- NOTE | 2023-11-25 17:18 | P.PN ---
Subjective Progress Note Date: 11/25/23 Principal diagnosis: Reason for follow-up is left leg cellulitis Patient is a 83-year-old female with a past medical history significant for atrial fibrillation coronary disease diabetes mellitus hypertension hyperlipidemia history of recurrent lower extremity cellulitis presenting to the hospital for evaluation of increasing swelling and redness to the left lower extremity, the patient have a negative Doppler started on vancomycin because of Keflex allergy. On today's evaluation that is 11/25/2023, patient has been afebrile, patient is breathing comfortably and is currently on 2 L nasal cannula oxygen, patient denies having any significant cough no chest pain shortness of breath, patient denies nausea vomiting or diarrhea and no abdominal pain pain swelling redness of left leg has decreased in intensity. Patient have creatinine 0.69 blood cultures pending no CBC was done today Objective - Vital Signs Vital signs: Vital Signs Temp 97.5 F L 11/25/23 07:21 Pulse 55 L 11/25/23 07:55 Resp 18 11/25/23 07:55 BP 134/63 11/25/23 07:21 Pulse Ox 99 11/25/23 07:21 FiO2 Intake & Output 11/24/23 11/25/23 11/25/23 18:59 06:59 18:59 Weight 122.47 kg Other: Voiding Method Toilet Toilet # Voids 6 1 # Bowel Movements 1 - Exam GENERAL DESCRIPTION: An elderly female up in bed in no distress RESPIRATORY SYSTEM: Unlabored breathing , decreased breath sounds at bases HEART: S1 S2 regular rate and rhythm , ABDOMEN: Soft , no tenderness EXTREMITIES: Left lower extremity swelling redness slightly decreased - Labs CBC & Chem 7: 11/24/23 06:51 11/25/23 03:31 Labs: Abnormal Lab Results - Last 24 Hours (Table) 11/25/23 Range/Units 03:31 Hemoglobin A1c 11.1 H (<=6.0) % Microbiology - Last 24 Hours (Table) 11/23/23 15:30 Blood Culture - Preliminary Blood Assessment and Plan (1) Allergy to cephalosporin Current Visit: No Status: Acute Code(s): Z88.1 - ALLERGY STATUS TO OTHER ANTIBIOTIC AGENTS SNOMED Code(s): 460476698 (2) Left leg cellulitis Current Visit: No Status: Acute Code(s): L03.116 - CELLULITIS OF LEFT LOWER LIMB SNOMED Code(s): 03224665409327734 Plan: 1patient with acute left lower extremity cellulitis in this patient who did have diffuse swelling redness likely streptococcal disease MRSA less likely, antibiotic started 2-Patient with a Keflex allergy that will limit the number of antibiotics safe to use 3-patient did have some clinical improvement to continue the vancomycin or watching her kidney function closely will be able to finish therapy with oral doxycycline Dictation was produced using [employer] dictation software. please excuse any grammatical, word or spelling errors. Time with Patient: Less than 30
[2023-11-25] MEDS ORDERED: metFORMIN 500 MG TAB PO SCH ×3 (21:00)
[2023-11-25] MEDS: metFORMIN 500 MG TAB PO SCH (21:12)
[2023-11-25] MEDS: INSULIN DETEMIR (LEVEMIR) 100 UNIT/ML SYR SQ SCH (21:12)
--- NOTE | 2023-11-26 00:05 | P.PN ---
Subjective Hospital course: This is a pleasant 83 years old female with past medical history of multiple medical problems including diabetes mellitus, atrial fibrillation. Patient presents to the hospital because of generalized weakness and inability to take care of herself, after her been hospitalized in this same facilityIn the last few days. Patient states she has a cleaning lady who came to the house and told her she does not look good and asked me to come to the hospital. Patient complains from pain all over her body, however she has this problem listed one of her chronic problems. However she is complaining from discomfort in her left leg which looks slightly more pink and swollen compared to the other side, also slightly warm. There is no open wound or discharge. Patient however denies any GI/ symptom. No chest pain or dyspnea. She has been complaining from dizziness over the last 2 days especially when she is lying down and trying to stand up. No headache weakness or numbness with lateralization At baseline she uses a walker. She denies smoking or alcohol. She is not sure about her home medication because usually her take care of that. She is afebrile, blood pressure stable Labs are unremarkable including CBC, BMP, liver enzymes, INR. pH is high 7.44. pCO2 is slightly elevated indicating respiratory compensation for metabolic alkalosis and this is more evident with elevated bicarb at 36. Mildly elevated lactic acid came back to reference range. Patient on admission received a bolus of 500 cc and is started on IV antibiotics with IV vancomycin and admitted infectious disease consult 11/23 Patient looks better today she is sitting in chair less dizzy Still has left leg swelling warmth and pinkish discoloration, no significant pain Ultrasound of the leg is negative for DVT, I reviewed the ultrasound by myself and I agree Patient remains on IV vancomycin pH is improved today to reference range at 7.4 with IV hydration, currently she is on normal saline 75 mL/h Eliquis is resumed. Other labs are still pending Problems and management plan are discussed with the patient in details and she verbalized understanding and acceptance She is afebrile and hemodynamically stable today. Review of systems CONSTITUTIONAL: No fever, no malaise, no fatigue. HEENT: No recent visual problems or hearing problems. Denied any sore throat. CARDIOVASCULAR: No orthopnea, PND, no palpitations, no syncope.s. HEMATOLOGICAL: Denies any bleeding or petechiae. GENITOURINARY: Denies any burning micturition, frequency, or urgency. MUSCULOSKELETAL/RHEUMATOLOGICAL: Denies any joint pain, swelling, or any muscle pain. ENDOCRINE: Denies any polyuria or polydipsia. Active Medications Generic Name Dose Route Start Last Admin Trade Name Freq PRN Reason Stop Dose Admin Acetaminophen 650 mg 11/23/23 16:53 Acetaminophen Tab 325 Mg Tab PO Q6HR PRN Mild Pain or Fever > 100.5 Apixaban 5 mg 11/23/23 18:00 11/23/23 17:43 Apixaban 5 Mg Tab PO 5 mg BID@0800,1800 ASHUTOSH Administration Protocol Bumetanide 2 mg 11/23/23 18:00 11/23/23 17:43 Bumetanide 1 Mg Tab PO 2 mg BID@0800,1800 ASHUTOSH Administration Cyclobenzaprine HCl 10 mg 11/24/23 00:00 11/24/23 00:23 Cyclobenzaprine 10 Mg Tab PO 10 mg HS@0000 ASHUTOSH Administration Dextrose/Water 50 ml 11/23/23 16:56 Dextrose 50% Syringe 50 Ml IVP PER PROTOCOL PRN Hypoglycemia Protocol Dextrose/Water 25 ml 11/23/23 16:56 Dextrose 50% Syringe 50 Ml IVP PER PROTOCOL PRN Hypoglycemia Protocol Dextrose/Water 25 ml 11/24/23 09:27 Dextrose 50% Syringe 50 Ml IVP PER PROTOCOL PRN Hypoglycemia Protocol Dextrose/Water 50 ml 11/24/23 09:27 Dextrose 50% Syringe 50 Ml IVP PER PROTOCOL PRN Hypoglycemia Protocol Digoxin 125 mcg 11/24/23 09:00 Digoxin 125 Mcg Tab PO Q48H [facility] Gabapentin 400 mg 11/23/23 18:00 11/24/23 06:00 Gabapentin 400 Mg Cap PO Not Given QID@00,06,12,18 [facility] Vancomycin HCl 2,000 mg/ 500 mls @ 167 mls/hr 11/24/23 08:00 Sodium Chloride IVPB Q16H [facility] Sodium Chloride 1,000 mls @ 75 mls/hr 11/23/23 19:45 11/24/23 00:24 Saline 0.9% IV Not Given .[id number] [facility] Insulin Aspart 0 unit 11/24/23 12:30 Insulin Aspart (Novolog) 100 Unit/Ml Vial SQ ACHS [facility] Protocol Latanoprost 1 drops 11/24/23 00:00 11/24/23 00:37 Latanoprost 0.005% Ophth Drops 2.5 Ml Btl BOTH EYES 1 drops HS@0000 [facility] Administration Levothyroxine Sodium 150 mcg 11/24/23 00:00 11/24/23 00:23 Levothyroxine 75 Mcg Tab PO 150 mcg HS@0000 [facility] Administration Loratadine 10 mg 11/24/23 08:00 Loratadine 10 Mg Tab PO DAILY@0800 [facility] Magnesium Oxide 400 mg 11/24/23 08:00 Magnesium Oxide 400 Mg Tab PO DAILY@0800 [facility] Metformin HCl 500 mg 11/23/23 18:00 11/23/23 17:43 Metformin 500 Mg Tab PO 500 mg DAILY@1800 [facility] Administration Naloxone HCl 0.2 mg 11/23/23 16:53 Naloxone 0.4 Mg/Ml 1 Ml Vial IV Q2M PRN Opioid Reversal Patient's Own ( 40 mg 12/01/23 09:00 Adalimumab [Humira( SQ Cf) Pen] 40 Mg/0.4 Q14D [facility] Ml Pen.Ij.Kit) Patient's Own ( 0.5 mg 11/24/23 09:00 Semaglutide [Ozempic SQ ] 0.25 Mg/0.368 Ml FR [facility] Pen.Injctr) Ondansetron HCl 8 mg 11/23/23 16:55 Ondansetron Odt 8 Mg Tab.Rapdis PO TID PRN Nausea Oxybutynin Chloride 10 mg 11/24/23 12:00 Oxybutynin 10 Mg Tab.Er.24 PO DAILY@1200 [facility] Oxycodone/Acetaminophen 1 each 11/23/23 18:00 11/24/23 06:00 Oxycodone-Apap 7.5-325mg 1 Each Tab PO Not Given QID@00,,,18 [facility] Potassium Chloride 20 meq 11/23/23 18:00 11/23/23 17:43 Potassium Chloride Er 20 Meq Tab.Er PO 20 meq BID@0800,1800 [facility] Administration Prednisone 10 mg 11/24/23 08:00 Prednisone 10 Mg Tab PO DAILY@0800 [facility] Trazodone HCl 50 mg 11/24/23 00:00 11/24/23 00:24 Trazodone Hcl 50 Mg Tab PO 50 mg HS@0000 [facility] Administration Objective - Vital Signs Vital signs: Vital Signs Temp 97.5 F L 09/28/24 07:21 Pulse 55 L 11/25/23 07:55 Resp 18 11/25/23 07:55 BP 134/63 11/25/23 07:21 Pulse Ox 99 11/25/23 07:21 FiO2 Intake & Output 11/24/23 11/25/23 11/25/23 18:59 06:59 18:59 Weight 122.47 kg Other: Voiding Method Toilet Toilet # Voids 6 1 # Bowel Movements 1 - Labs CBC & Chem 7: 11/24/23 06:51 11/25/23 03:31 Labs: Abnormal Lab Results - Last 24 Hours (Table) 11/24/23 11/25/23 Range/Units 06:51 03:31 Anion Gap 15.00 H (4.00-12.00) mmol/L BUN/Creatinine Ratio 21.25 H (12.00-20.00) Ratio Glucose 294 H (70-110) mg/dL Hemoglobin A1c 11.1 H (<=6.0) % C-Reactive Protein 1.60 H (0.00-0.80) mg/dL Albumin/Globulin Ratio 1.26 L (1.60-3.17) Ratio Microbiology - Last 24 Hours (Table) 11/23/23 15:30 Blood Culture - Preliminary Blood Assessment and Plan Assessment: Acute left leg cellulitis, acute DVT ruled out Diabetes mellitus with hyperglycemia Generalized weakness and dehydration Atrial fibrillation Coronary artery disease Diabetes mellitus Hypertension Hyperlipidemia History of osteoarthritis Hypothyroidism Rheumatoid arthritis Spinal stenosis Plan: Continue with IV hydration with normal saline Continue with IV vancomycin Infectious disease team on the case Check inflammatory markers Labs and medication were reviewed.. Continue same treatment. Continue with symptomatic treatment. Resume home medication. Monitor lytes and vitals. DVT and GI prophylaxis. Further recommendations depends on the clinical course of the patient DVT prophylaxis: Eliquis GI Prophylaxis: Pepcid PT/OT: Pending Prognosis is guarded
[2023-11-26 07:15] LABS: African American GFR (CKD) >90 (>60 ml/min/1.73 sqM); Non-African American GFR(CKD) 85 (>60 ml/min/1.73 sqM)
[2023-11-26] MEDS: VANCOMYCIN TROUGH DUE 1 EACH MISC MISCELLANE ONE (08:52)
--- NOTE | 2023-11-26 11:23 | P.PN ---
Subjective Hospital course: This is a pleasant 83 years old female with past medical history of multiple medical problems including diabetes mellitus, atrial fibrillation. Patient presents to the hospital because of generalized weakness and inability to take care of herself, after her been hospitalized in this same facilityIn the last few days. Patient states she has a cleaning lady who came to the house and told her she does not look good and asked me to come to the hospital. Patient complains from pain all over her body, however she has this problem listed one of her chronic problems. However she is complaining from discomfort in her left leg which looks slightly more pink and swollen compared to the other side, also slightly warm. There is no open wound or discharge. Patient however denies any GI/ symptom. No chest pain or dyspnea. She has been complaining from dizziness over the last 2 days especially when she is lying down and trying to stand up. No headache weakness or numbness with lateralization At baseline she uses a walker. She denies smoking or alcohol. She is not sure about her home medication because usually her take care of that. She is afebrile, blood pressure stable Labs are unremarkable including CBC, BMP, liver enzymes, INR. pH is high 7.44. pCO2 is slightly elevated indicating respiratory compensation for metabolic alkalosis and this is more evident with elevated bicarb at 36. Mildly elevated lactic acid came back to reference range. Patient on admission received a bolus of 500 cc and is started on IV antibiotics with IV vancomycin and admitted infectious disease consult 11/23 Patient looks better today she is sitting in chair less dizzy Still has left leg swelling warmth and pinkish discoloration, no significant pain Ultrasound of the leg is negative for DVT, I reviewed the ultrasound by myself and I agree Patient remains on IV vancomycin pH is improved today to reference range at 7.4 with IV hydration, currently she is on normal saline 75 mL/h Eliquis is resumed. Other labs are still pending Problems and management plan are discussed with the patient in details and she verbalized understanding and acceptance She is afebrile and hemodynamically stable today. 11/25 Patient left leg cellulitis is improving, get up and go test is normal, patient uses a walker at baseline. Patient may be considered for discharge today however she feels tired and some nausea We going to monitor for another 24 hours Her sugar is better controlled after increasing her Levemir to 15 units and higher the dose of metformin to 1000 mg. Objective - Vital Signs Vital signs: Vital Signs Temp 97.8 F 11/26/23 06:48 Pulse 55 L 11/26/23 09:00 Resp 18 11/26/23 09:00 BP 139/66 11/26/23 06:48 Pulse Ox 100 11/26/23 06:48 FiO2 Intake & Output 11/25/23 11/26/23 11/26/23 18:59 06:59 18:59 Other: Voiding Method Toilet Toilet # Voids 8 2 - Exam GENERAL: The patient is alert and oriented x3, not in any acute distress. Well developed, well nourished. HEENT: Pupils are round and equally reacting to light. EOMI. No scleral icterus. No conjunctival pallor. Normocephalic, atraumatic. No pharyngeal erythema. No thyromegaly. CARDIOVASCULAR: S1 and S2 present. No murmurs, rubs, or gallops. PULMONARY: Chest is clear to auscultation, no wheezing , no crackles. ABDOMEN: Soft, nontender, nondistended, normoactive bowel sounds. No palpable organomegaly. MUSCULOSKELETAL: No joint swelling or deformity. -EXTREMITIES: No cyanosis, clubbing, or pedal edema. Left leg mildly warm, pink and swollen NEUROLOGICAL: Gross neurological examination did not reveal any focal deficits. SKIN: No rashes. no petechiae. - Labs CBC & Chem 7: 11/24/23 06:51 11/26/23 06:26 Labs: Microbiology - Last 24 Hours (Table) 11/23/23 15:30 Blood Culture - Preliminary Blood Assessment and Plan Assessment: Acute left leg cellulitis, acute DVT ruled out Diabetes mellitus with hyperglycemia Generalized weakness and dehydration Atrial fibrillation Coronary artery disease Diabetes mellitus Hypertension Hyperlipidemia History of osteoarthritis Hypothyroidism Rheumatoid arthritis Spinal stenosis Plan: Continue with IV hydration with normal saline Continue with IV vancomycin Infectious disease team on the case Check inflammatory markers Labs and medication were reviewed.. Continue same treatment. Continue with symptomatic treatment. Resume home medication. Monitor lytes and vitals. DVT and GI prophylaxis. Further recommendations depends on the clinical course of the patient DVT prophylaxis: Eliquis GI Prophylaxis: Pepcid PT/OT: Pending Prognosis is guarded
[2023-11-26] MEDS: ONDANSETRON 4 MG/2 ML VIAL IVP STA (11:44)
--- NOTE | 2023-11-26 14:54 | P.PN ---
Subjective Progress Note Date: 11/26/23 Principal diagnosis: Reason for follow-up is left leg cellulitis Patient is a 83-year-old female with a past medical history significant for atrial fibrillation coronary disease diabetes mellitus hypertension hyperlipidemia history of recurrent lower extremity cellulitis presenting to the hospital for evaluation of increasing swelling and redness to the left lower extremity, the patient have a negative Doppler started on vancomycin because of Keflex allergy. On today's evaluation that is 11/26/2023, Patient is afebrile this morning patient denies having any chest pain shortness of breath or cough, the patient is breathing comfortably on room air, patient denies any abdominal pain no diarrhea no nausea no vomiting overall swelling redness of the lower extremity has decreased intensity. Patient did have a creatinine 0.61 Vanco trough is 18.7 blood culture has been pending Objective - Vital Signs Vital signs: Vital Signs Temp 98.2 F 11/26/23 13:09 Pulse 80 11/26/23 13:09 Resp 17 11/26/23 13:09 BP 98/78 11/26/23 13:23 Pulse Ox 92 L 11/26/23 13:09 FiO2 Intake & Output 11/25/23 11/26/23 11/26/23 18:59 06:59 18:59 Other: Voiding Method Toilet Toilet # Voids 8 2 6 - Exam GENERAL DESCRIPTION: An elderly female up in bed in no distress RESPIRATORY SYSTEM: Unlabored breathing , decreased breath sounds at bases HEART: S1 S2 regular rate and rhythm , ABDOMEN: Soft , no tenderness EXTREMITIES: Left lower extremity swelling redness slightly decreased - Labs CBC & Chem 7: 11/24/23 06:51 11/26/23 06:26 Labs: Microbiology - Last 24 Hours (Table) 11/23/23 15:30 Blood Culture - Preliminary Blood Assessment and Plan (1) Allergy to cephalosporin Current Visit: No Status: Acute Code(s): Z88.1 - ALLERGY STATUS TO OTHER ANTIBIOTIC AGENTS SNOMED Code(s): 578710032 (2) Left leg cellulitis Current Visit: No Status: Acute Code(s): L03.116 - CELLULITIS OF LEFT LOWER LIMB SNOMED Code(s): 78588566534044905 Plan: 1patient with acute left lower extremity cellulitis in this patient who did have diffuse swelling redness likely streptococcal disease MRSA less likely, antibiotic started 2-Patient with a Keflex allergy that will limit the number of antibiotics safe to use 3-patient lower extremity swelling redness has decreased, patient to continue the vancomycin or watching her kidney function closely while inpatient plan to finish therapy with oral doxycycline on discharge Dictation was produced using [employer] dictation software. please excuse any grammatical, word or spelling errors. Time with Patient: Less than 30
[2023-11-27] MEDS: VANCOMYCIN 1,750 MG in SODIUM CHLORIDE 0.9% 500 ML 500 ML IVPB SCH (01:08)
[2023-11-27] MEDS: oxyCODONE-APAP 5-325MG 1 EACH TAB PO STA (05:24)
--- NOTE | 2023-11-27 08:48 | P.PN ---
Subjective Progress Note Date: 11/27/23 Principal diagnosis: Weakness with cellulitis. Patient is an 83-year-old white female with known history of recurrent cellulitis. Atrial fibrillation with chronic pain elements. No fever or chills stated. We had a long discussion regarding discharge planning. she and her hu candyand have been having difficulty remaining independent as her debility becomes worse Objective - Vital Signs Vital signs: Vital Signs Temp 98.2 F 11/27/23 00:18 Pulse 83 11/27/23 00:18 Resp 15 11/27/23 00:18 BP 131/65 11/27/23 00:18 Pulse Ox 95 11/27/23 00:18 FiO2 Intake & Output 11/26/23 11/27/23 11/27/23 18:59 06:59 18:59 Other: Voiding Method Toilet Toilet # Voids 6 2 - Constitutional General appearance: Present: average body habitus, morbidly obese - EENT Eyes: Absent: abnormal pupil - Neck Neck: Absent: lymphadenopathy - Respiratory Respiratory: bilateral: diminished - Cardiovascular Rhythm: regular Heart sounds: normal: S1, S2 Abnormal Heart Sounds: Absent: S3 Gallop - Gastrointestinal General gastrointestinal: Present: soft - Psychiatric Psychiatric: Present: A&O x's 3 - Labs CBC & Chem 7: 11/24/23 06:51 11/26/23 06:26 Labs: Microbiology - Last 24 Hours (Table) 11/23/23 15:30 Blood Culture - Preliminary Blood Assessment and Plan (1) Cellulitis Current Visit: Yes Status: Acute Code(s): L03.90 - CELLULITIS, UNSPECIFIED SNOMED Code(s): 265440872 (2) Debility Current Visit: Yes Status: Acute Code(s): R53.81 - OTHER MALAISE SNOMED Code(s): 11376628 (3) Generalized weakness Current Visit: Yes Status: Acute Code(s): R53.1 - WEAKNESS SNOMED Code(s): 95090784 (4) Atrial fibrillation Current Visit: No Status: Acute Code(s): I48.91 - UNSPECIFIED ATRIAL FIBRILLATION SNOMED Code(s): 31896220 (5) Increased weakness when ambulating Current Visit: No Status: Acute Code(s): R53.1 - WEAKNESS SNOMED Code(s): 821904204 Plan: She has slowly clinically improving but her overall weakness is a treatability. Discharge planning. Anticipate discharge in extremity 24/48 hours. See orders otherwise
--- NOTE | 2023-11-27 12:44 | P.PN ---
Subjective Progress Note Date: 11/27/23 Principal diagnosis: Reason for follow-up is left leg cellulitis Patient is a 83-year-old female with a past medical history significant for atrial fibrillation coronary disease diabetes mellitus hypertension hyperlipidemia history of recurrent lower extremity cellulitis presenting to the hospital for evaluation of increasing swelling and redness to the left lower extremity, the patient have a negative Doppler started on vancomycin because of Keflex allergy. On today's evaluation that is 11/27/2023,the patient remains to be afebrile, the patient is breathing comfortably currently on room air no need for supplemental oxygen no worsening pain with lower extremity swelling redness has decreased and no diarrhea has been reported. Patient white count 6.90 creatinine 0.61 blood culture have been negative Objective - Vital Signs Vital signs: Vital Signs Temp 98.3 F 11/27/23 08:00 Pulse 80 11/27/23 08:00 Resp 19 11/27/23 08:00 BP 147/63 11/27/23 08:00 Pulse Ox 95 11/27/23 08:00 FiO2 Intake & Output 11/26/23 11/27/23 11/27/23 18:59 06:59 18:59 Other: Voiding Method Toilet Toilet # Voids 6 2 1 - Exam GENERAL DESCRIPTION: An elderly female up in bed in no distress RESPIRATORY SYSTEM: Unlabored breathing , decreased breath sounds at bases HEART: S1 S2 regular rate and rhythm , ABDOMEN: Soft , no tenderness EXTREMITIES: Left lower extremity swelling redness slightly decreased - Labs CBC & Chem 7: 11/24/23 06:51 11/26/23 06:26 Labs: Microbiology - Last 24 Hours (Table) 11/23/23 15:30 Blood Culture - Preliminary Blood Assessment and Plan (1) Allergy to cephalosporin Current Visit: No Status: Acute Code(s): Z88.1 - ALLERGY STATUS TO OTHER ANTIBIOTIC AGENTS SNOMED Code(s): 182941942 (2) Left leg cellulitis Current Visit: No Status: Acute Code(s): L03.116 - CELLULITIS OF LEFT LOWER LIMB SNOMED Code(s): 95117249268959110 Plan: 1patient with acute left lower extremity cellulitis in this patient who did have diffuse swelling redness likely streptococcal disease MRSA less likely, antibiotic started 2-Patient with a Keflex allergy that will limit the number of antibiotics safe to use 3-patient lower extremity swelling redness has decreased in intensity patient is currently covered with vancomycin plan is to finish therapy with oral doxycycline x 7 days on discharge Dictation was produced using [employer] dictation software. please excuse any grammatical, word or spelling errors.
[2023-11-28 03:50] LABS: African American GFR (CKD) >90 (>60 ml/min/1.73 sqM); Non-African American GFR(CKD) 83 (>60 ml/min/1.73 sqM)
[2023-11-28 08:43] VITALS: BP 127/56; PULSE 84; RESP 18; TEMP 97.7
--- NOTE | 2023-11-28 09:24 | P.DS ---
Providers Date of admission: 11/23/23 16:54 Attending physician: Nicholas Hart Consults: 11/23/23 16:53 Consult Physician Routine Consulting Provider: Tg Butts Consult Reason/Comments: cellulitis Do you want consulting provider notified?: Yes Primary care physician: Stated None - Discharge Diagnosis(es) (1) Cellulitis Current Visit: Yes Status: Acute (2) Debility Current Visit: Yes Status: Acute (3) Generalized weakness Current Visit: Yes Status: Acute (4) Atrial fibrillation Current Visit: No Status: Acute (5) CAD (coronary artery disease) Current Visit: No Status: Acute (6) Diabetes Current Visit: No Status: Acute (7) Hypertension Current Visit: No Status: Acute (8) Hypothyroidism Current Visit: No Status: Acute Hospital Course: This is a 83 year old female who presented to the emergency department with complaints of generalized weakness and inability to care for herself. Patient reported discomfort in her left leg and increased redness. Patient seen and evaluated by infectious disease during admission who are recommending doxycycline at discharge. Patient seen and evaluated by physical therapy who report patient is safe for discharge to home. Patient's is also in the hospital at this time, he is her primary medical care manager. Patient reports she has support at home with her neighbors and her son. Patient may be discharged home today. Patient seen and evaluated by nurse practitioner, physician in agreement with plan. Patient Condition at Discharge: Stable Plan - Discharge Summary New Discharge Prescriptions: New Doxycycline [Vibramycin] 100 mg PO BID 7 Days #14 capsule Continue Latanoprost [Xalatan 0.005%] 1 drop BOTH EYES HS@0000 Calcium Citrate/Vitamin D3 [Citracal + D Maximum Caplet] 1 tab PO BID@0 800,1800 Adalimumab [Humira(Cf) Pen] 40 mg SQ Q14D INSULIN LISPRO (HumaLOG) [humaLOG] 6 units SQ AC-TID Levothyroxine Sodium [Synthroid] 150 mcg PO HS@0000 traZODone HCL [Desyrel] 50 mg PO HS@0000 metFORMIN HCL [Glucophage] 500 mg PO DAILY@1800 Insulin Glargine,Hum.rec.anlog [Lantus Solostar Pen] 24 units SQ DAILY@1800 Gabapentin [Neurontin] 400 mg PO QID@00,06,12,18 Bumetanide [BUMEX] 2 mg PO BID@0800,1800 Acetaminophen Tab [Tylenol] 500 mg PO QID@00,06,,18 predniSONE 10 mg PO DAILY@0800 Nitroglycerin Sl Tabs [Nitrostat] 0.4 mg SL Q5M PRN PRN Reason: Chest Pain Digoxin [Lanoxin] 125 mcg PO Q48H INSULIN LISPRO (HumaLOG) [humaLOG] See Protocol SQ AC-TID PRN PRN Reason: high blood sugar Multivit-Min/FA/Lycopen/Lutein [Centrum Silver Tablet] 1 tab PO DAILY@0800 Apixaban [Eliquis] 5 mg PO BID@0800,1800 Tolterodine ER [Detrol LA] 4 mg PO DAILY@1200 Ondansetron Odt [Zofran ODT] 8 mg PO TID PRN PRN Reason: Nausea Insulin Glargine,Hum.rec.anlog [Lantus Solostar Pen] 34 units SQ DAILY@0800 Semaglutide [Ozempic] 0.5 mg SQ FR Cyclobenzaprine [Flexeril] 10 mg PO HS@0000 Potassium Chloride ER [K-Dur 20] 20 meq PO BID@0800,1800 oxyCODONE-APAP 7.5-325MG [Percocet 7.5-325 mg] 1 tab PO QID@00,,, Magnesium Oxide [Mag-Ox] 250 mg PO DAILY@0800 Loratadine [Claritin] 10 mg PO DAILY@0800 Discharge Medication List Latanoprost [Xalatan 0.005%] 1 drop BOTH EYES HS@0000 08/11/17 [History] predniSONE 10 mg PO DAILY@0800 07/23/21 [History] Calcium Citrate/Vitamin D3 [Citracal + D Maximum Caplet] 1 tab PO BID@0800,1800 11/16/21 [History] Digoxin [Lanoxin] 125 mcg PO Q48H 11/16/21 [History] Nitroglycerin Sl Tabs [Nitrostat] 0.4 mg SL Q5M PRN 11/16/21 [History] Adalimumab [Humira(Cf) Pen] 40 mg SQ Q14D 01/09/22 [History] Apixaban [Eliquis] 5 mg PO BID@0800,1800 05/02/22 [History] INSULIN LISPRO (HumaLOG) [humaLOG] 6 units SQ AC-TID 05/02/22 [History] INSULIN LISPRO (HumaLOG) [humaLOG] See Protocol SQ AC-TID PRN 05/02/22 [History] Multivit-Min/FA/Lycopen/Lutein [Centrum Silver Tablet] 1 tab PO DAILY@0800 05/02/22 [History] Levothyroxine Sodium [Synthroid] 150 mcg PO HS@0000 09/02/22 [History] traZODone HCL [Desyrel] 50 mg PO HS@0000 12/15/22 [History] Tolterodine ER [Detrol LA] 4 mg PO DAILY@1200 05/15/23 [History] metFORMIN HCL [Glucophage] 500 mg PO DAILY@1800 05/25/23 [History] Acetaminophen Tab [Tylenol] 500 mg PO QID@00,06,12,11/23/23 [History] Bumetanide [BUMEX] 2 mg PO BID@0800,179911/23/23 [History] Cyclobenzaprine [Flexeril] 10 mg PO HS@0000 11/23/23 [History] Gabapentin [Neurontin] 400 mg PO QID@00,06,12,11/23/23 [History] Insulin Glargine,Hum.rec.anlog [Lantus Solostar Pen] 24 units SQ DAILY@179911/23/23 [History] Insulin Glargine,Hum.rec.anlog [Lantus Solostar Pen] 34 units SQ DAILY@79911/23/23 [History] Loratadine [Claritin] 10 mg PO DAILY@79911/23/23 [History] Magnesium Oxide [Mag-Ox] 250 mg PO DAILY@79911/23/23 [History] Ondansetron Odt [Zofran ODT] 8 mg PO TID PRN 11/23/23 [History] Potassium Chloride ER [K-Dur 20] 20 meq PO BID@0800,1800 11/23/23 [History] Semaglutide [Ozempic] 0.5 mg SQ FR 11/23/23 [History] oxyCODONE-APAP 7.5-325MG [Percocet 7.5-325 mg] 1 tab PO QID@00,06,12,18 11/23/23 [History] Doxycycline [Vibramycin] 100 mg PO BID 7 Days #14 capsule 11/28/23 [Rx] Follow up Appointment(s)/Referral(s): [facility] Visiting Nurse, [NON-STAFF] - As Needed Activity/Diet/Wound Care/Special Instructions: Home #[phone] Discharge Disposition: HOME WITH HOME HEALTH SERVICES
--- NOTE | 2023-11-28 12:58 | P.PN ---
Subjective Progress Note Date: 11/28/23 Principal diagnosis: Reason for follow-up is left leg cellulitis Patient is a 83-year-old female with a past medical history significant for atrial fibrillation coronary disease diabetes mellitus hypertension hyperlipidemia history of recurrent lower extremity cellulitis presenting to the hospital for evaluation of increasing swelling and redness to the left lower extremity, the patient have a negative Doppler started on vancomycin because of Keflex allergy. On today's evaluation that is 11/28/2023,the patient remains to be afebrile, patient is on room air not requiring supplemental oxygen and denies any shortness of breath no chest pain or cough.Patient denies having any nausea or vomiting, no abdominal pain and no diarrhea has been reported, he did have sli ght more swelling to the right leg with a blister popped but no foul-smelling drainage. Patient did have creatinine 0.66 Vanco trough was 18.7 Objective - Vital Signs Vital signs: Vital Signs Temp 97.7 F 11/28/23 08:00 Pulse 84 11/28/23 08:00 Resp 18 11/28/23 08:00 BP 127/56 11/28/23 08:00 Pulse Ox 90 L 11/28/23 08:00 FiO2 Intake & Output 11/27/23 11/28/23 11/28/23 18:59 06:59 18:59 Other: Voiding Method Toilet # Voids 6 2 - Exam GENERAL DESCRIPTION: An elderly female up in bed in no distress RESPIRATORY SYSTEM: Unlabored breathing , decreased breath sounds at bases HEART: S1 S2 regular rate and rhythm , ABDOMEN: Soft , no tenderness EXTREMITIES: Left lower extremity swelling redness slightly decreased - Labs CBC & Chem 7: 11/24/23 06:51 11/28/23 02:55 Assessment and Plan (1) Allergy to cephalosporin Current Visit: No Status: Acute Code(s): Z88.1 - ALLERGY STATUS TO OTHER ANTIBIOTIC AGENTS SNOMED Code(s): 352264972 (2) Left leg cellulitis Current Visit: No Status: Acute Code(s): L03.116 - CELLULITIS OF LEFT LOWER LIMB SNOMED Code(s): 89091134720411584 Plan: 1patient with acute left lower extremity cellulitis in this patient who did have diffuse swelling redness likely streptococcal disease MRSA less likely, antibiotic started 2-Patient with a Keflex allergy that will limit the number of antibiotics safe to use 3-patient has been advised compression stocking to keep some of the swelling down will finish therapy with oral doxycycline and a close outpatient follow-up prescription has been sent to the pharmacy Dictation was produced using [employer] dictation software. please excuse any g rammatical, word or spelling errors. Time with Patient: Less than 30
[2023-11-29] MEDS ORDERED: VANCOMYCIN TROUGH DUE 1 EACH MISC MISCELLANE ONE (15:00)
[2023-12-01] MEDS ORDERED: PATIENT'S OWN (Adalimumab [Humira(Cf) Pen] 40 MG/0.4 ML Pen.Ij.Kit) SQ SCH (09:00)
[2023-12-01 15:04] LABS: Glucose,Whole Blood 321 mg/dL (70-110)
[2023-12-01 15:04] LABS: Glucose,Whole Blood 135 mg/dL (70-110)
[2023-12-01 15:04] LABS: Glucose,Whole Blood 297 mg/dL (70-110)
[2023-12-01 15:04] LABS: Glucose,Whole Blood 288 mg/dL (70-110)
[2023-12-01 15:04] LABS: Glucose,Whole Blood 228 mg/dL (70-110)
[2023-12-01 15:05] LABS: Glucose,Whole Blood 223 mg/dL (70-110)
[2023-12-01 15:05] LABS: Glucose,Whole Blood 311 mg/dL (70-110)
[2023-12-01 15:05] LABS: Glucose,Whole Blood 209 mg/dL (70-110)
[2023-12-01 15:06] LABS: Glucose,Whole Blood 383 mg/dL (70-110)
[2023-12-01 15:06] LABS: Glucose,Whole Blood 296 mg/dL (70-110)
[2023-12-01 15:06] LABS: Glucose,Whole Blood 427 mg/dL (70-110)
[2023-12-01 15:06] LABS: Glucose,Whole Blood 420 mg/dL (70-110)
[2023-12-01 15:06] LABS: Glucose,Whole Blood 172 mg/dL (70-110)
[2023-12-01 15:06] LABS: Glucose,Whole Blood 388 mg/dL (70-110)
[2023-12-01 15:06] LABS: Glucose,Whole Blood 336 mg/dL (70-110)
[2023-12-01 15:06] LABS: Glucose,Whole Blood 386 mg/dL (70-110)
[2023-12-01 15:06] LABS: Glucose,Whole Blood 289 mg/dL (70-110)
[2023-12-01 15:07] LABS: Glucose,Whole Blood 365 mg/dL (70-110)
[2023-12-01 15:07] LABS: Glucose,Whole Blood 264 mg/dL (70-110)
[2023-12-01 15:07] LABS: Glucose,Whole Blood 291 mg/dL (70-110)
[2023-12-01 15:07] LABS: Glucose,Whole Blood 344 mg/dL (70-110)
--- NOTE | 2023-12-12 23:16 | CDI ---
Documentation Clarification Form Date: 12/12/2023 11:09:44 PM From: Stephanie Pozo Phone: Admit Date: 11/23/2023 04:54:00 PM Patient Name: Rosalva Lr Visit Number: [id number] Discharge Date: 11/28/2023 01:16:00 PM ATTENTION: The Clinical Documentation Specialists (CDI) and [facility] Coding Staff appreciate your assistance in clarifying documentation. Please respond to the clarification below the line at the bottom and electronically sign. The CDI & [facility] Coding staff will review the response and follow-up if needed. Please note: Queries are made part of the Legal Health Record. If you have any questions, please contact the author of this message via ITS. Doctor/Provider: Nicholas Hart Cellulitis is documented per H&P and throughout the Progress Notes. Additional clarification regarding the type of cellulitis is requested. History/risk factors: 83yo F, Acute left leg cellulitis, IDDMII w hyperglycemia d/t insulin noncompliance,dehydration, chronic A Fib, CAD, HTN, HLD, OA, RA, hypothyroidism, spinal stenosis, Unable to take care of herself Clinical Indicators: patient with acute left lower extremity cellulitis in this patient who did have diffuse swelling redness likelystreptococcaldisease MRSA less likely; Patient with aKeflex allergythat will limit the number of antibiotics safe to use Treatment: patient has been advisedcompressionstocking to keep some of theswelling down will finishtherapywith oral doxycycline and acloseoutpatientfollow-up prescription has been sent to the pharmacy Please clarify the type of cellulitis, if known: [ ] Cellulitis due to Diabetes mellitus [ x ] Cellulitis not due to Diabetes mellitus [ ] Other, please specify: [ ] Unable to determine (Template Last Revised: February 2022) MTDD
== END 2023-11-28 13:16 | disposition home health service (06) | DRG 603 ==
LOC: EC 14:29 → 4SSUR 16:54
PROVIDERS: ADMIT Family Medicine; ATTEND Family Medicine
DX: L03.116 Cellulitis of left lower limb (principal); E87.4 Mixed disorder of acid-base balance; I48.20 Chronic atrial fibrillation, unspecified; E11.65 Type 2 diabetes mellitus with hyperglycemia; B95.5 Unspecified streptococcus as the cause of diseases classified elsewhere; M35.00 Sjogren syndrome, unspecified; M06.9 Rheumatoid arthritis, unspecified; E66.01 Morbid (severe) obesity due to excess calories; Z79.4 Long term (current) use of insulin; I10 Essential (primary) hypertension; E03.9 Hypothyroidism, unspecified; E86.0 Dehydration; T38.3X6A Underdosing of insulin and oral hypoglycemic [antidiabetic] drugs, initial encounter; E78.5 Hyperlipidemia, unspecified; G89.29 Other chronic pain; I25.10 Atherosclerotic heart disease of native coronary artery without angina pectoris; Z74.1 Need for assistance with personal care; Z96.642 Presence of left artificial hip joint; Z79.891 Long term (current) use of opiate analgesic; Z68.33 Body mass index [BMI] 33.0-33.9, adult; Z88.1 Allergy status to other antibiotic agents; Z79.890 Hormone replacement therapy; Z79.01 Long term (current) use of anticoagulants; Z85.828 Personal history of other malignant neoplasm of skin; Z79.85 Long-term (current) use of injectable non-insulin antidiabetic drugs; Z79.84 Long term (current) use of oral hypoglycemic drugs; Z79.52 Long term (current) use of systemic steroids; Z87.891 Personal history of nicotine dependence; Z86.14 Personal history of Methicillin resistant Staphylococcus aureus infection; Z85.820 Personal history of malignant melanoma of skin; Z79.899 Other long term (current) drug therapy
CPT/HCPCS: 36415; 71046; 80053; 80202; 81003; 82009; 82565; 82803; 83036; 83605; 83735; 83880; 84145; 85025; 85610; 85730; 86140; 87040; 87636; 93005; 94760; 96365; 96366; 99285

== ENCOUNTER 2023-12-13 07:25 | Emergency (ER) | payer MEDICARE ==
[2023-12-13 07:35] VITALS: RESP 18; TEMP 97.7
[2023-12-13] MEDS: ONDANSETRON ODT 4 MG TAB PO STA (07:58)
[2023-12-13 08:11] LABS: Glucose,Whole Blood 348 mg/dL (70-110)
--- NOTE | 2023-12-13 08:12 | ED ---
General Adult HPI - General Chief complaint: Extremity Injury, Lower Stated complaint: not feeling well Time Seen by Provider: 12/13/23 07:29 Source: patient, EMS, RN notes reviewed Mode of arrival: EMS Limitations: no limitations - History of Present Illness Initial comments: 83-year-old female presents emergency room via EMS chief complaint of not feel ing well. Patient states that she woke up she just had some nausea but did not have any other complaints she called her friend advised to call EMS. She states at this time she has no real complaint she states that she is able to ambulate she has been eating and drinking she has noted some urinary frequency but denies chest pain shortness of breath headache dizziness abdominal pain flank pain no extremity weakness. She is able to ambulate with a walker as usual. She states she is currently living at home in which her is in ICU for several weeks. - Related Data Home Medications Medication Instructions Recorded Confirmed Latanoprost [Xalatan 0.005%] 1 drop BOTH EYES HS@0000 08/11/17 11/23/23 predniSONE 10 mg PO DAILY@0800 07/23/21 11/23/23 Calcium Citrate/Vitamin D3 1 tab PO BID@0800,1800 11/16/21 11/23/23 [Citracal + D Maximum Caplet] Digoxin [Lanoxin] 125 mcg PO Q48H 11/16/21 11/23/23 Nitroglycerin Sl Tabs [Nitrostat] 0.4 mg SL Q5M PRN 11/16/21 11/23/23 Adalimumab [Humira(Cf) Pen] 40 mg SQ Q14D 01/09/22 11/23/23 Apixaban [Eliquis] 5 mg PO BID@0800,1800 05/02/22 11/23/23 INSULIN LISPRO (HumaLOG) [humaLOG] 6 units SQ AC-TID 05/02/22 11/23/23 INSULIN LISPRO (HumaLOG) [humaLOG] See Protocol SQ AC-TID PRN 05/02/22 11/23/23 Multivit-Min/FA/Lycopen/Lutein 1 tab PO DAILY@0800 05/02/22 11/23/23 [Centrum Silver Tablet] Levothyroxine Sodium [Synthroid] 150 mcg PO HS@0000 09/02/22 11/23/23 traZODone HCL [Desyrel] 50 mg PO HS@0000 12/15/22 11/23/23 Tolterodine ER [Detrol LA] 4 mg PO DAILY@1200 05/15/23 11/23/23 metFORMIN HCL [Glucophage] 500 mg PO DAILY@179905/25/23 11/23/23 Acetaminophen Tab [Tylenol] 500 mg PO QID@00,,12,11/23/23 11/23/23 Bumetanide [BUMEX] 2 mg PO BID@0800,179911/23/23 11/23/23 Cyclobenzaprine [Flexeril] 10 mg PO HS@0000 11/23/23 11/23/23 Gabapentin [Neurontin] 400 mg PO QID@00,,,11/23/23 11/23/23 Insulin Glargine,Hum.rec.anlog 24 units SQ DAILY@179911/23/23 11/23/23 [Lantus Solostar Pen] Insulin Glargine,Hum.rec.anlog 34 units SQ DAILY@79911/23/23 11/23/23 [Lantus Solostar Pen] Loratadine [Claritin] 10 mg PO DAILY@79911/23/23 11/23/23 Magnesium Oxide [Mag-Ox] 250 mg PO DAILY@79911/23/23 11/23/23 Ondansetron Odt [Zofran ODT] 8 mg PO TID PRN 11/23/23 11/23/23 Potassium Chloride ER [K-Dur 20] 20 meq PO BID@0800,1800 11/23/23 11/23/23 Semaglutide [Ozempic] 0.5 mg SQ FR 11/23/23 11/23/23 oxyCODONE-APAP 7.5-325MG [Percocet 1 tab PO QID@00,,,18 11/23/23 11/23/23 7.5-325 mg] Previous Rx's Medication Instructions Recorded Doxycycline [Vibramycin] 100 mg PO BID 7 Days #14 capsule 11/28/23 Allergies Allergy/AdvReac Type Severity Reaction Status Date / Time adhesive Allergy Rash/Hives Verified 12/13/23 07:35 cephalexin [From Keflex] Allergy Rash/Hives Verified 12/13/23 07:35 grass pollen Allergy Unknown Verified 12/13/23 07:35 mold Allergy Unknown Verified 12/13/23 07:35 newspaper ink Allergy Mild Unknown Uncoded 12/13/23 07:35 Review of Systems ROS Statement: Those systems with pertinent positive or pertinent negative responses have been documented in the HPI. ROS Other: All systems not noted in ROS Statement are negative. Past Medical History Past Medical History: Atrial Fibrillation, Coronary Artery Disease (CAD), Cancer, Diabetes Mellitus, Hyperlipidemia, Hypertension, Musculoskeletal Disorder, Neurologic Disorder, Osteoarthritis (OA), Pneumonia, Renal Disease, Rheumatoid Arthritis (RA), Skin Disorder, Thyroid Disorder Additional Past Medical History / Comment(s): Morbid obesity, chronic atrial fibrillation, diabetes mellitus type 2, hypertension, hyperlipidemia, spinal stenosis, osteoarthritis, hypothyroidism, hypertension, history of skin melanoma, history of bursitis with MRSA post I&D, rheumatoid arthritis, Sjogren's disease, 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 without any indication of ILD related to RA, Fall on July 22 transfer to [facility] for MRI, then Fall on 11/16/21 History of Any Multi-Drug Resistant Organisms: MRSA Date of last positivie culture/infection: 09/02/22 MDRO Source:: Right Leg Past Surgical History: Back Surgery, Breast Surgery, Cholecystectomy, Heart Catheterization, Joint Replacement, Orthopedic Surgery Additional Past Surgical History / Comment(s): Bilateral cataracts with lens implants, arthroscopies to lt wrist, gualberto knees, gualberto ankles, gualberto hips, lt hip replacment and redone, L/R shoulder sxs, rt breast bx-benign, egd/colonoscopy, skin cancer removal L arm, Lumbar fixnation possible broken Past Anesthesia/Blood Transfusion Reactions: No Reported Reaction Additional Past Anesthesia/Blood Transfusion Reaction / Comment(s): Pt has been told not to have anesthesia metabolized by the kidneys and has neurologic Sjogren's with post anesthesia paralysis. Past Psychological History: No Psychological Hx Reported Smoking Status: Unknown if ever smoked Past Alcohol Use History: None Reported Past Drug Use History: None Reported - Past Family History Mother Family Medical History: CVA/TIA Additional Family Medical History / Comment(s): RUPTURED BOWEL Father Family Medical History: Cancer, Pneumonia Additional Family Medical History / Comment(s): ASPIRATIVE PNA Sister(s) Additional Family Medical History / Comment(s): at age 34 with lupus General Exam Limitations: no limitations General appearance: alert, in no apparent distress Head exam: Present: atraumatic, normocephalic, normal inspection Eye exam: Present: normal appearance, PERRL, EOMI. Absent: scleral icterus, conjunctival injection, periorbital swelling ENT exam: Present: normal exam, normal oropharynx, mucous membranes moist, TM's normal bilaterally Neck exam: Present: normal inspection, full ROM. Absent: tenderness, meningismus, lymphadenopathy Respiratory exam: Present: normal lung sounds bilaterally. Absent: respiratory distress, wheezes, rales, rhonchi, stridor Cardiovascular Exam: Present: regular rate, normal rhythm, normal heart sounds. Absent: systolic murmur, diastolic murmur, rubs, gallop, clicks GI/Abdominal exam: Present: soft, normal bowel sounds. Absent: distended, tenderness, guarding, rebound, rigid Neurological exam: Present: alert, oriented X3, CN II-XII intact, reflexes normal. Absent: motor sensory deficit Skin exam: Present: warm, dry, intact, normal color. Absent: rash Course Vital Signs 12/13/23 12/13/23 07:32 09:34 Temperature 97.7 F Pulse Rate 78 75 Respiratory 18 18 Rate Blood Pressure 167/85 154/85 O2 Sat by Pulse 97 94 L Oximetry Medical Decision Making - Medical Decision Making Was pt. sent in by a medical professional or institution (, PA, FIRE COORDINATOR, urgent care, hospital, or care home...) When possible be specific @ -No Did you speak to anyone other than the patient for history (EMS, parent, family, police, friend...)? What history was obtained from this source @ -No Did you review nursing and triage notes (agree or disagree)? Why? @ -I reviewed and agree with nursing and triage notes Were old charts reviewed (outside hosp., previous admission, EMS record, old EKG, old radiological studies, urgent care reports/EKG's, care home records)? Report findings @ -No old charts were reviewed Differential Diagnosis (chest pain, altered mental status, abdominal pain women, abdominal pain men, vaginal bleeding, weakness, fever, dyspnea, syncope, headache, dizziness, GI bleed, back pain, seizure, CVA, palpatations, mental health, musculoskeletal)? @-Differential Weakness: Hypoglycemia, shock, sepsis, hyponatremia, anemia, infection, [place], ETOH, adverse medicine reaction, overdose, stroke, this is not meant to be an all-inclusive list. EKG interpreted by me (3pts min.). @ -As above X-rays interpreted by me (1pt min.). @ -None done CT interpreted by me (1pt min.). @ -None done U/S interpreted by me (1pt. min.). @ -None done What testing was considered but not performed or refused? (CT, X-rays, U/S, labs)? Why? @ -None What meds were considered but not given or refused? Why? @ -None Did you discuss the management of the patient with other professionals (professionals i.e. Dr., PA, FIRE COORDINATOR, lab, RT, psych nurse, protective services social worker, workforce staffing advisor, teacher, corporate ethics officer, leather case finisher)? Give summary @ -No Was smoking cessation discussed for >3mins.? @ -No Was critical care preformed (if so, how long)? @ -No Were there social determinants of health that impacted care today? How? (Homelessness, low income, unemployed, alcoholism, drug addiction, transportation, low edu. Level, literacy, decrease access to med. care, [facility], rehab)? @ -No Was there de-escalation of care discussed even if they declined (Discuss DNR or withdrawal of care, Hospice)? DNR status @ -No What co-morbidities impacted this encounter? (DM, HTN, Smoking, COPD, CAD, Cancer, CVA, ARF, Chemo, Hep., AIDS, mental health diagnosis, sleep apnea, morbid obesity)? @ -Diabetes, chronic pain Was patient admitted / discharged? Hospital course, mention meds given and [place], prescriptions, significant lab abnormalities, going to OR and other pertinent info. @ -Discharge patient presented emergency room without significant complaint or reason why she called EMS other and she did not feel well. Patient did have labs or studies urinalysis which does not reveal any acute findings other than mild hyperglycemia. She was given insulin patient reportedly is having pain which is chronic and was treated. Undiagnosed new problem with uncertain prognosis? @ -No Drug Therapy requiring intensive monitoring for toxicity (Heparin, Nitro, Insulin, Cardizem)? @ -No Were any procedures done? @ -No Diagnosis/symptom? @ -Chronic pain, hyperglycemia Acute, or Chronic, or Acute on Chronic? @ -Chronic, acute Uncomplicated (without systemic symptoms) or Complicated (systemic symptoms)? @ -Uncomplicated Side effects of treatment? @ -No Exacerbation, Progression, or Severe Exacerbation? @ -No Poses a threat to life or bodily function? How? (Chest pain, [place], [place], pneumonia, PE, COPD, DKA, ARF, appy, cholecystitis, CVA, Diverticulitis, Homicidal, Suicidal, threat to staff... and all critical care pts) @ -No - Lab Data Result diagrams: 12/13/23 08:44 12/13/23 08:44 Lab Results 12/13/23 12/13/23 12/13/23 Range/Units 08:00 08:14 08:44 WBC 6.6 (3.8-10.6) k/uL RBC 3.99 (3.80-5.40) m/uL Hgb 13.0 (11.4-16.0) gm/dL Hct 39.3 (34.0-46.0) % MCV 98.4 (80.0-100.0) fL MCH 32.5 (25.0-35.0) pg MCHC 33.0 (31.0-37.0) g/dL RDW 13.4 (11.5-15.5) % Plt Count 166 (150-450) k/uL MPV 7.1 Neutrophils % 59 % Lymphocytes % 29 % Monocytes % 6 % Eosinophils % 3 % Basophils % 0 % Neutrophils # 3.9 (1.3-7.7) k/uL Lymphocytes # 1.9 (1.0-4.8) k/uL Monocytes # 0.4 (0-1.0) k/uL Eosinophils # 0.2 (0-0.7) k/uL Basophils # 0.0 (0-0.2) k/uL Sodium (137-145) mmol/L Potassium (3.5-5.1) mmol/L Chloride (98-107) mmol/L Carbon Dioxide (22-30) mmol/L Anion Gap mmol/L BUN (7-17) mg/dL Creatinine (0.52-1.04) mg/dL Est GFR (CKD-EPI)AfAm (>60 ml/min/1.73 sqM) Est GFR (CKD-EPI)NonAf (>60 ml/min/1.73 sqM) Glucose (74-99) mg/dL POC Glucose (mg/dL) 348 H (70-110) mg/dL POC Glu Technology Training Associate ID Harpreet Lopez Calcium (8.4-10.2) mg/dL Total Bilirubin (0.2-1.3) mg/dL AST (14-36) U/L ALT (4-34) U/L Alkaline Phosphatase (38-126) U/L Total Protein (6.3-8.2) g/dL Albumin (3.5-5.0) g/dL Urine Color Colorless Urine Appearance Clear (Clear) Urine pH 7.5 (5.0-8.0) Ur Specific [place] 1.010 (1.001-1.035) Urine Protein Negative (Negative) Urine Glucose (UA) 4+ H (Negative) Urine Ketones Trace H (Negative) Urine Blood Negative (Negative) Urine Nitrite Negative (Negative) Urine Bilirubin Negative (Negative) Urine Urobilinogen <2.0 (<2.0) mg/dL Ur Leukocyte Esterase Trace H (Negative) Urine RBC 2 (0-5) /hpf Urine WBC 8 H (0-5) /hpf Ur Squamous Epith Cells 1 (0-4) /hpf 12/13/23 12/13/23 12/13/23 Range/Units 08:44 09:26 10:21 WBC (3.8-10.6) k/uL RBC (3.80-5.40) m/uL Hgb (11.4-16.0) gm/dL Hct (34.0-46.0) % MCV (80.0-100.0) fL MCH (25.0-35.0) pg MCHC (31.0-37.0) g/dL RDW (11.5-15.5) % Plt Count (150-450) k/uL MPV Neutrophils % % Lymphocytes % % Monocytes % % Eosinophils % % Basophils % % Neutrophils # (1.3-7.7) k/uL Lymphocytes # (1.0-4.8) k/uL Monocytes # (0-1.0) k/uL Eosinophils # (0-0.7) k/uL Basophils # (0-0.2) k/uL Sodium 132 L (137-145) mmol/L Potassium 4.0 (3.5-5.1) mmol/L Chloride 97 L (98-107) mmol/L Carbon Dioxide 30 (22-30) mmol/L Anion Gap 5 mmol/L BUN 14 (7-17) mg/dL Creatinine 0.55 (0.52-1.04) mg/dL Est GFR (CKD-EPI)AfAm >90 (>60 ml/min/1.73 sqM) Est GFR (CKD-EPI)NonAf 88 (>60 ml/min/1.73 sqM) Glucose 369 H (74-99) mg/dL POC Glucose (mg/dL) 317 H 259 H (70-110) mg/dL POC Glu Technology Training Associate ID Harpreet Resendez Calcium 9.5 (8.4-10.2) mg/dL Total Bilirubin 0.8 (0.2-1.3) mg/dL AST 46 H (14-36) U/L ALT 22 (4-34) U/L Alkaline Phosphatase 83 (38-126) U/L Total Protein 6.5 (6.3-8.2) g/dL Albumin 3.5 (3.5-5.0) g/dL Urine Color Urine Appearance (Clear) Urine pH (5.0-8.0) Ur Specific [place] (1.001-1.035) Urine Protein (Negative) Urine Glucose (UA) (Negative) Urine Ketones (Negative) Urine Blood (Negative) Urine Nitrite (Negative) Urine Bilirubin (Negative) Urine Urobilinogen (<2.0) mg/dL Ur Leukocyte Esterase (Negative) Urine RBC (0-5) /hpf Urine WBC (0-5) /hpf Ur Squamous Epith Cells (0-4) /hpf Disposition Clinical Impression: Hyperglycemia, Chronic pain Disposition: HOME SELF-CARE Condition: Stable Instructions (If sedation given, give patient instructions): Diabetic Hyperglycemia (ED) Additional Instructions: Please return to the Emergency Department if symptoms worsen or any other concerns. Is patient prescribed a controlled substance at d/c from ED?: No Referrals: Nicholas Hart MD [Primary Care Provider] - 1-2 days Time of Disposition: 10:26
[2023-12-13 08:25] LABS: Appearance,Urine Clear (Clear); Bilirubin,Urine Negative (Negative); Blood,Urine Negative (Negative); Color,Urine Colorless; Glucose,Urine (UA) 4+ (Negative); Ketones,Urine Trace (Negative); Leukocyte Esterase,Urine Trace (Negative); Nitrite,Urine Negative (Negative); PH, Urine 7.5 (5.0-8.0); Protein,Urine Negative (Negative); RBC,Urine 2 /hpf (0-5); Squamous Epithelial Cell,Urine 1 /hpf (0-4); Urobilinogen,Urine <2.0 mg/dL (<2.0); WBC,Urine 8 /hpf (0-5)
[2023-12-13] MEDS: SODIUM CHLORIDE 0.9% 500 ML 500 ML IV ONE (08:40)
[2023-12-13] MEDS: INSULIN REGULAR 100 UNIT/ML VIAL (IV) IV ONE ×2 (08:41→09:31)
[2023-12-13 08:49] LABS: Basophils % (A) 0 %; Eosinophils # (A) 0.2 k/uL (0-0.7); Eosinophils % (A) 3 %; HCT 39.3 % (34.0-46.0); Lymphocytes # (A) 1.9 k/uL (1.0-4.8); Lymphocytes % (A) 29 %; MCH 32.5 pg (25.0-35.0); MCV 98.4 fL (80.0-100.0); Mean Platelet Volume 7.1; Monocytes # (A) 0.4 k/uL (0-1.0); Monocytes % (A) 6 %; Neutrophils # (A) 3.9 k/uL (1.3-7.7); Neutrophils % (A) 59 %; Platelet Count 166 k/uL (150-450); RBC 3.99 m/uL (3.80-5.40); RDW 13.4 % (11.5-15.5); WBC 6.6 k/uL (3.8-10.6)
[2023-12-13 09:16] LABS: ALT 22 U/L (4-34); AST 46 U/L (14-36); African American GFR (CKD) >90 (>60 ml/min/1.73 sqM); Albumin 3.5 g/dL (3.5-5.0); Alkaline Phosphatase 83 U/L (38-126); Anion Gap 5 mmol/L; Blood Urea Nitrogen 14 mg/dL (7-17); Calcium 9.5 mg/dL (8.4-10.2); Carbon Dioxide 30 mmol/L (22-30); Chloride 97 mmol/L (98-107); Glucose 369 mg/dL (74-99); Non-African American GFR(CKD) 88 (>60 ml/min/1.73 sqM); Sodium 132 mmol/L (137-145); Total Bilirubin 0.8 mg/dL (0.2-1.3); Total Protein 6.5 g/dL (6.3-8.2)
[2023-12-13 09:27] LABS: Glucose,Whole Blood 317 mg/dL (70-110)
[2023-12-13 10:23] LABS: Glucose,Whole Blood 259 mg/dL (70-110)
[2023-12-13] MEDS: HYDROmorphone 0.5 MG/0.5 ML SYRINGE IVP STA (10:26)
[2023-12-13 11:08] VITALS: BP 128/78; PULSE 87
== END 2023-12-13 11:09 | disposition home or self-care (01) ==
LOC: EC 07:25
CPT/HCPCS: 36415; 80053; 81001; 85025; 96361; 96374; 99284

== ENCOUNTER 2023-12-14 15:19 | Observation (INO) | payer MEDICARE ==
[2023-12-14 16:00] LABS: Glucose,Whole Blood 501 mg/dL (70-110)
[2023-12-14 16:01] LABS: Glucose,Whole Blood 489 mg/dL (70-110)
--- NOTE | 2023-12-14 16:32 | ED ---
Recheck HPI - General Chief Complaint: Recheck/Abnormal Lab/Rx Stated Complaint: high blood sugar Time Seen by Provider: 12/14/23 15:23 Source: patient, EMS, RN notes reviewed, old records reviewed Mode of arrival: EMS Limitations: no limitations - History of Present Illness Initial Comments: This is an 85-year-old female to the ER for evaluation patient presents today for evaluation regards to severely and significant elevated blood sugar, sent in by home care MD Complaint: abnormal lab (Significant hyperglycemia which has been increasing for a few days now) Returns Today for: Called Because of Abnormal Lab/Test Symptoms Since Prior Visit: no new symptoms Context: called for abnormal lab result Associated Symptoms: none - Related Data Home Medications Medication Instructions Recorded Confirmed Latanoprost [Xalatan 0.005%] 1 drop BOTH EYES HS@0000 08/11/17 12/22/23 predniSONE 10 mg PO DAILY@0800 07/23/21 12/22/23 Calcium Citrate/Vitamin D3 1 tab PO BID@0800,1800 11/16/21 12/22/23 [Citracal + D Maximum Caplet] Digoxin [Lanoxin] 125 mcg PO Q48H 11/16/21 12/22/23 Nitroglycerin Sl Tabs [Nitrostat] 0.4 mg SL Q5M PRN 11/16/21 12/22/23 Adalimumab [Humira(Cf) Pen] 40 mg SQ Q14D 01/09/22 12/22/23 Apixaban [Eliquis] 5 mg PO BID@0800,1800 05/02/22 12/22/23 INSULIN LISPRO (HumaLOG) [humaLOG] 6 units SQ AC-TID 05/02/22 12/22/23 INSULIN LISPRO (HumaLOG) [humaLOG] See Protocol SQ AC-TID 05/02/22 12/22/23 Multivit-Min/FA/Lycopen/Lutein 1 tab PO DAILY@0800 05/02/22 12/22/23 [Centrum Silver Tablet] Levothyroxine Sodium [Synthroid] 150 mcg PO HS@0000 09/02/22 12/22/23 traZODone HCL [Desyrel] 50 mg PO HS@0000 12/15/22 12/22/23 Tolterodine ER [Detrol LA] 4 mg PO DAILY@1200 05/15/23 12/22/23 metFORMIN HCL [Glucophage] 500 mg PO DAILY@1800 05/25/23 12/22/23 Acetaminophen Tab [Tylenol] 500 mg PO QID@00,06,12,18 11/23/23 12/22/23 Bumetanide [BUMEX] 2 mg PO BID@0800,1800 11/23/23 12/22/23 Cyclobenzaprine [Flexeril] 10 mg PO HS@0000 11/23/23 12/22/23 Gabapentin [Neurontin] 400 mg PO QID@00,06,12,18 11/23/23 12/22/23 Insulin Glargine,Hum.rec.anlog 24 units SQ DAILY@179911/23/23 12/22/23 [Lantus Solostar Pen] Insulin Glargine,Hum.rec.anlog 34 units SQ DAILY@0800 11/23/23 12/22/23 [Lantus Solostar Pen] Loratadine [Claritin] 10 mg PO DAILY@0800 11/23/23 12/22/23 Magnesium Oxide [Mag-Ox] 250 mg PO DAILY@0800 11/23/23 12/22/23 Ondansetron Odt [Zofran ODT] 8 mg PO TID PRN 11/23/23 12/22/23 Potassium Chloride ER [K-Dur 20] 20 meq PO BID@0800,1800 11/23/23 12/22/23 Semaglutide [Ozempic] 0.5 mg SQ FR 11/23/23 12/22/23 Previous Rx's Medication Instructions Recorded oxyCODONE-APAP 7.5-325MG [Percocet 1 tab PO QID@00,06,12,18 30 Days 12/25/23 7.5-325 mg] #120 tab Doxycycline Hyclate 100 mg PO BID 10 Days #20 tab 12/26/23 Allergies Allergy/AdvReac Type Severity Reaction Status Date / Time adhesive Allergy Rash/Hives Verified 12/22/23 16:54 cephalexin [From Keflex] Allergy Rash/Hives Verified 12/22/23 16:54 grass pollen Allergy Unknown Verified 12/22/23 16:54 mold Allergy Unknown Verified 12/22/23 16:54 newspaper ink Allergy Mild Unknown Uncoded 12/22/23 16:54 Review of Systems ROS Statement: Those systems with pertinent positive or pertinent negative responses have been documented in the HPI. ROS Other: All systems not noted in ROS Statement are negative. Past Medical History Past Medical History: Atrial Fibrillation, Coronary Artery Disease (CAD), Cancer, Diabetes Mellitus, Hyperlipidemia, Hypertension, Musculoskeletal Disorder, Neurologic Disorder, Osteoarthritis (OA), Pneumonia, Renal Disease, Rheumatoid Arthritis (RA), Skin Disorder, Thyroid Disorder Additional Past Medical History / Comment(s): Morbid obesity, chronic atrial fibrillation, diabetes mellitus type 2, hypertension, hyperlipidemia, spinal stenosis, osteoarthritis, hypothyroidism, hypertension, history of skin me lanoma, history of bursitis with MRSA post I&D, rheumatoid arthritis, Sjogren's disease, 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 without any indication of ILD related to RA, Fall on July 22 transfer to [facility] for MRI, then Fall on 11/16/21 History of Any Multi-Drug Resistant Organisms: MRSA Date of last positivie culture/infection: 09/02/22 MDRO Source:: Right Leg Past Surgical History: Back Surgery, Breast Surgery, Cholecystectomy, Heart Catheterization, Joint Replacement, Orthopedic Surgery Additional Past Surgical History / Comment(s): Bilateral cataracts with lens implants, arthroscopies to lt wrist, gualberto knees, gualberto ankles, gualberto hips, lt hip replacment and redone, L/R shoulder sxs, rt breast bx-benign, egd/colonoscopy, skin cancer removal L arm, Lumbar fixnation possible broken Past Anesthesia/Blood Transfusion Reactions: No Reported Reaction Additional Past Anesthesia/Blood Transfusion Reaction / Comment(s): Pt has been told not to have anesthesia metabolized by the kidneys and 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 Past Psychological History: No Psychological Hx Reported Smoking Status: Unknown if ever smoked Past Alcohol Use History: None Reported Past Drug Use History: None Reported - Past Family History Mother Family Medical History: CVA/TIA Additional Family Medical History / Comment(s): RUPTURED BOWEL Father Family Medical History: Cancer, Pneumonia Additional Family Medical History / Comment(s): ASPIRATIVE PNA Sister(s) Additional Family Medical History / Comment(s): at age 34 with lupus General Exam General appearance: alert, in no apparent distress Head exam: Present: atraumatic, normocephalic, normal inspection Eye exam: Present: normal appearance, PERRL, EOMI. Absent: scleral icterus, conjunctival injection, periorbital swelling ENT exam: Present: normal exam, mucous membranes moist Neck exam: Present: normal inspection. Absent: tenderness, meningismus, lymphadenopathy Respiratory exam: Present: normal lung sounds bilaterally. Absent: respiratory distress, wheezes, rales, rhonchi, stridor Cardiovascular Exam: Present: regular rate, normal rhythm, normal heart sounds. Absent: systolic murmur, diastolic murmur, rubs, gallop, clicks GI/Abdominal exam: Present: soft, normal bowel sounds. Absent: distended, tenderness, guarding, rebound, rigid Extremities exam: Present: normal inspection, full ROM, normal capillary refill. Absent: tenderness, pedal edema, joint swelling, calf tenderness Back exam: Present: normal inspection Neurological exam: Present: alert, oriented X3, CN II-XII intact Psychiatric exam: Present: normal affect, normal mood Skin exam: Present: warm, dry, intact, normal color. Absent: rash Course Vital Signs 12/14/23 12/14/23 12/14/23 15:33 19:15 23:20 Temperature 98.0 F 97.5 F L Pulse Rate 59 L 79 72 Respiratory 20 20 18 Rate Blood Pressure 128/55 116/64 130/72 O2 Sat by Pulse 96 97 98 Oximetry 12/15/23 00:46 Temperature 97.9 F Pulse Rate 84 Respiratory 18 Rate Blood Pressure 160/71 O2 Sat by Pulse 95 Oximetry - Reevaluation(s) Reevaluation #1: 12/14/23 18:29 Medical records reviewed Reevaluation #2: 12/14/23 18:29 Patient symptoms unchanged Reevaluation #3: 12/14/23 18:29 Patient informed of results and questions answered Reevaluation #4: Was pt. sent in by a medical professional or institution (, PA, SYSTEMS DESIGNER, urgent care, hospital, or group home...) When possible be specific @ -no Did you speak to anyone other than the patient for history (EMS, parent, family, police, friend...)? What history was obtained from this source @ -no Did you review nursing and triage notes (agree or disagree)? Why? @ -agree Are old charts reviewed (outside hosp., previous admission, EMS record, old EKG, old radiological studies, urgent care reports/EKG's, group home records)? Report findings @ -yes Differential Diagnosis (chest pain, altered mental status, abdominal pain women, abdominal pain men, vaginal bleeding, weakness, fever, dyspnea, syncope, headache, dizziness, GI bleed, back pain, seizure, CVA, palpatations, mental health, musculoskeletal)? @ -prior EKG interpreted by me (3pts min.). @ -yes X-rays interpreted by me (1pt min.). @ -no CT interpreted by me (1pt min.). @ -no U/S interpreted by me (1pt. min.). @ -no What testing was considered but not performed or refused? (CT, X-rays, U/S, labs)? Why? @ -none What meds were considered but not given or refused? Why? @ -none Did you discuss the management of the patient with other professionals (javi rome i.e. , PA, SYSTEMS DESIGNER, lab, RT, psych nurse, nursing home social worker, water proofer, teacher, dog license officer supervisor, piano case maker)? Give summary @ -no Was smoking cessation discussed for >3mins.? @ -no Was critical care preformed (if so, how long)? @ -no Were there social determinants of health that impacted care today? How? (Homelessness, low income, unemployed, alcoholism, drug addiction, transportation, low edu. Level, literacy, decrease access to med. care, senior living, rehab)? @ -none Was there de-escalation of care discussed even if they declined (Discuss DNR or withdrawal of care, Hospice)? DNR status @ -no What co-morbidities impacted this encounter? (DM, HTN, Smoking, COPD, CAD, Cancer, CVA, ARF, Chemo, Hep., AIDS, mental health diagnosis, sleep apnea, morbid obesity)? @ -none Was patient admitted / discharged? Hospital course, mention meds given and route, prescriptions, significant lab abnormalities, going to OR and other pertinent info. @ - 83 female to ER for hyperglycemia and will admit for further evaluation and treatment, supportive care and blood sugar treatment Admitted Undiagnosed new problem with uncertain prognosis? @ -no Drug Therapy requiring intensive monitoring for toxicity (Heparin, Nitro, Insulin, Cardizem)? @ -no Were any procedures done? @ -no Diagnosis/symptom? @ -Hyperglycemia Acute, or Chronic, or Acute on Chronic? @ -Acute Uncomplicated (without systemic symptoms) or Complicated (systemic symptoms)? @ -Complicated Side effects of treatment? @ -no Exacerbation, Progression, or Severe Exacerbation? @ -exacerbation Poses a threat to life or bodily function? How? (Chest pain, [place], [place], pneumonia, PE, COPD, DKA, ARF, appy, cholecystitis, CVA, Diverticulitis, Homicidal, Suicidal, threat to staff... and all critical care pts) @ -yes extremes of age - Consultations Consultation #1: Spoke with Dr. Hart who agrees to admit this patient Medical Decision Making - Medical Decision Making 83 female to ER for hyperglycemia and will admit for further evaluation and t reatment, supportive care and blood sugar treatment - Lab Data Result diagrams: 12/14/23 16:37 12/14/23 16:37 Lab Results 12/14/23 12/14/23 12/14/23 Range/Units 15:59 16:00 16:37 WBC 7.1 (3.8-10.6) k/uL RBC 3.80 (3.80-5.40) m/uL Hgb 12.4 (11.4-16.0) gm/dL Hct 38.2 (34.0-46.0) % MCV 100.6 H (80.0-100.0) fL MCH 32.6 (25.0-35.0) pg MCHC 32.4 (31.0-37.0) g/dL RDW 13.5 (11.5-15.5) % Plt Count 182 (150-450) k/uL MPV 7.9 Neutrophils % 73 % Lymphocytes % 16 % Monocytes % 6 % Eosinophils % 3 % Basophils % 0 % Neutrophils # 5.1 (1.3-7.7) k/uL Lymphocytes # 1.1 (1.0-4.8) k/uL Monocytes # 0.4 (0-1.0) k/uL Eosinophils # 0.2 (0-0.7) k/uL Basophils # 0.0 (0-0.2) k/uL Hypochromasia Slight Macrocytosis Slight PT (10.0-12.5) sec INR (<1.2) APTT (22.0-30.0) sec D-Dimer (<0.60) mg/L FEU Sodium (137-145) mmol/L Potassium (3.5-5.1) mmol/L Chloride (98-107) mmol/L Carbon Dioxide (22-30) mmol/L Anion Gap mmol/L BUN (7-17) mg/dL Creatinine (0.52-1.04) mg/dL Est GFR (CKD-EPI)AfAm (>60 ml/min/1.73 sqM) Est GFR (CKD-EPI)NonAf (>60 ml/min/1.73 sqM) Glucose (74-99) mg/dL POC Glucose (mg/dL) 501 H* 489 H (70-110) mg/dL POC Glu Mending Carrier ID Vagts Suzin Vagts Suzin Lactic Ac Sepsis Rflx Plasma Lactic Acid Cj (0.7-2.0) mmol/L Calcium (8.4-10.2) mg/dL Phosphorus (2.5-4.5) mg/dL Magnesium (1.6-2.3) mg/dL Total Bilirubin (0.2-1.3) mg/dL AST (14-36) U/L ALT (4-34) U/L Alkaline Phosphatase (38-126) U/L Troponin I (0.000-0.034) ng/mL NT-Pro-B Natriuret Pep pg/mL Total Protein (6.3-8.2) g/dL Albumin (3.5-5.0) g/dL Acetone, Qual (Negative) 12/14/23 12/14/23 12/14/23 Range/Units 16:37 16:37 16:37 WBC (3.8-10.6) k/uL RBC (3.80-5.40) m/uL Hgb (11.4-16.0) gm/dL Hct (34.0-46.0) % MCV (80.0-100.0) fL MCH (25.0-35.0) pg MCHC (31.0-37.0) g/dL RDW (11.5-15.5) % Plt Count (150-450) k/uL MPV Neutrophils % % Lymphocytes % % Monocytes % % Eosinophils % % Basophils % % Neutrophils # (1.3-7.7) k/uL Lymphocytes # (1.0-4.8) k/uL Monocytes # (0-1.0) k/uL Eosinophils # (0-0.7) k/uL Basophils # (0-0.2) k/uL Hypochromasia Macrocytosis PT 11.3 (10.0-12.5) sec INR 1.0 (<1.2) APTT 24.4 (22.0-30.0) sec D-Dimer 0.45 (<0.60) mg/L FEU Sodium 131 L (137-145) mmol/L Potassium 4.4 (3.5-5.1) mmol/L Chloride 93 L (98-107) mmol/L Carbon Dioxide 31 H (22-30) mmol/L Anion Gap 7 mmol/L BUN 23 H (7-17) mg/dL Creatinine 0.74 (0.52-1.04) mg/dL Est GFR (CKD-EPI)AfAm 88 (>60 ml/min/1.73 sqM) Est GFR (CKD-EPI)NonAf 76 (>60 ml/min/1.73 sqM) Glucose 474 H (74-99) mg/dL POC Glucose (mg/dL) (70-110) mg/dL POC Glu Mending Carrier ID Lactic Ac Sepsis Rflx Plasma Lactic Acid Cj (0.7-2.0) mmol/L Calcium 8.7 (8.4-10.2) mg/dL Phosphorus 3.7 (2.5-4.5) mg/dL Magnesium 1.6 (1.6-2.3) mg/dL Total Bilirubin 0.7 (0.2-1.3) mg/dL AST 37 H (14-36) U/L ALT 23 (4-34) U/L Alkaline Phosphatase 72 (38-126) U/L Troponin I 0.021 (0.000-0.034) ng/mL NT-Pro-B Natriuret Pep 1500 pg/mL Total Protein 6.3 (6.3-8.2) g/dL Albumin 3.6 (3.5-5.0) g/dL Acetone, Qual Negative (Negative) 12/14/23 12/14/23 Range/Units 17:09 17:43 WBC (3.8-10.6) k/uL RBC (3.80-5.40) m/uL Hgb (11.4-16.0) gm/dL Hct (34.0-46.0) % MCV (80.0-100.0) fL MCH (25.0-35.0) pg MCHC (31.0-37.0) g/dL RDW (11.5-15.5) % Plt Count (150-450) k/uL MPV Neutrophils % % Lymphocytes % % Monocytes % % Eosinophils % % Basophils % % Neutrophils # (1.3-7.7) k/uL Lymphocytes # (1.0-4.8) k/uL Monocytes # (0-1.0) k/uL Eosinophils # (0-0.7) k/uL Basophils # (0-0.2) k/uL Hypochromasia Macrocytosis PT (10.0-12.5) sec INR (<1.2) APTT (22.0-30.0) sec D-Dimer (<0.60) mg/L FEU Sodium (137-145) mmol/L Potassium (3.5-5.1) mmol/L Chloride (98-107) mmol/L Carbon Dioxide (22-30) mmol/L Anion Gap mmol/L BUN (7-17) mg/dL Creatinine (0.52-1.04) mg/dL Est GFR (CKD-EPI)AfAm (>60 ml/min/1.73 sqM) Est GFR (CKD-EPI)NonAf (>60 ml/min/1.73 sqM) Glucose (74-99) mg/dL POC Glucose (mg/dL) (70-110) mg/dL POC Glu Mending Carrier ID Lactic Ac Sepsis Rflx Y Plasma Lactic Acid Cj 2.7 H* (0.7-2.0) mmol/L Calcium (8.4-10.2) mg/dL Phosphorus (2.5-4.5) mg/dL Magnesium (1.6-2.3) mg/dL Total Bilirubin (0.2-1.3) mg/dL AST (14-36) U/L ALT (4-34) U/L Alkaline Phosphatase (38-126) U/L Troponin I (0.000-0.034) ng/mL NT-Pro-B Natriuret Pep pg/mL Total Protein (6.3-8.2) g/dL Albumin (3.5-5.0) g/dL Acetone, Qual (Negative) - EKG Data -: EKG Interpreted by Me (EKG is A-fib 93 QRS 109 QTc 426) Disposition Clinical Impression: Hyperglycemia Disposition: HOME SELF-CARE Condition: Fair Is patient prescribed a controlled substance at d/c from ED?: No Time of Disposition: 18:30
[2023-12-14 16:56] LABS: Basophils % (A) 0 %; Eosinophils # (A) 0.2 k/uL (0-0.7); Eosinophils % (A) 3 %; HCT 38.2 % (34.0-46.0); HGB 12.4 gm/dL (11.4-16.0); Hypochromasia Slight; Lymphocytes # (A) 1.1 k/uL (1.0-4.8); Lymphocytes % (A) 16 %; MCH 32.6 pg (25.0-35.0); MCHC 32.4 g/dL (31.0-37.0); MCV 100.6 fL (80.0-100.0); Macrocytosis Slight; Mean Platelet Volume 7.9; Monocytes # (A) 0.4 k/uL (0-1.0); Monocytes % (A) 6 %; Neutrophils # (A) 5.1 k/uL (1.3-7.7); Neutrophils % (A) 73 %; Platelet Count 182 k/uL (150-450); RDW 13.5 % (11.5-15.5); WBC 7.1 k/uL (3.8-10.6)
[2023-12-14] MEDS: SODIUM CHLORIDE 0.9% 1,000 ML IV STA ×2 (17:07)
[2023-12-14 17:20] LABS: ALT 23 U/L (4-34); African American GFR (CKD) 88 (>60 ml/min/1.73 sqM); Albumin 3.6 g/dL (3.5-5.0); Anion Gap 7 mmol/L; Blood Urea Nitrogen 23 mg/dL (7-17); Calcium 8.7 mg/dL (8.4-10.2); Carbon Dioxide 31 mmol/L (22-30); Chloride 93 mmol/L (98-107); Glucose 474 mg/dL (74-99); Non-African American GFR(CKD) 76 (>60 ml/min/1.73 sqM); Sodium 131 mmol/L (137-145); Total Bilirubin 0.7 mg/dL (0.2-1.3); Total Protein 6.3 g/dL (6.3-8.2)
[2023-12-14 17:23] LABS: AST 37 U/L (14-36); Alkaline Phosphatase 72 U/L (38-126); Magnesium 1.6 mg/dL (1.6-2.3); Phosphorus 3.7 mg/dL (2.5-4.5); Potassium 4.4 mmol/L (3.5-5.1)
[2023-12-14 17:27] LABS: NT-Pro-B-Type Natriuretic Pept 1500 pg/mL
[2023-12-14 17:35] LABS: Partial Thromboplastin Time 24.4 sec (22.0-30.0); Prothrombin Time 11.3 sec (10.0-12.5)
[2023-12-14] MEDS ORDERED: ONDANSETRON 4 MG/2 ML VIAL IVP PRN (18:26)
[2023-12-14] MEDS ORDERED: NALOXONE 0.4 MG/ML 1 ML VIAL IV PRN (18:26)
[2023-12-14] MEDS: MORPHINE SULFATE 4 MG/ML SYRINGE IV PRN (19:03)
[2023-12-14] MEDS: INSULIN REGULAR 100 UNIT/ML VIAL (IM/SQ) SQ ONE (19:07)
[2023-12-14] MEDS: INSULIN REGULAR 100 UNIT/ML VIAL (IV) IV ONE ×2 (19:08→21:37)
[2023-12-14 20:45] LABS: Glucose,Whole Blood 403 mg/dL (70-110)
[2023-12-14] MEDS: SODIUM CHLORIDE 0.9% 1,000 ML IV SCH (21:30)
[2023-12-14] MEDS: SODIUM CHLORIDE 0.9% 500 ML 500 ML IV ONE (21:37)
[2023-12-14 22:20] LABS: Glucose,Whole Blood 366 mg/dL (70-110)
[2023-12-14 23:10] LABS: Glucose,Whole Blood 341 mg/dL (70-110)
[2023-12-14 23:22] VITALS: RESP 18
[2023-12-15 00:22] LABS: Glucose,Whole Blood 349 mg/dL (70-110)
[2023-12-15 00:48] VITALS: BP 160/71; PULSE 84; TEMP 97.9
== END 2023-12-14 23:20 | disposition home or self-care (01) ==
LOC: EC 15:19 → 6NMEDSUR 18:28
PROVIDERS: ADMIT Family Medicine; ATTEND Family Medicine
DX: E11.65 Type 2 diabetes mellitus with hyperglycemia (principal); E03.9 Hypothyroidism, unspecified; E78.5 Hyperlipidemia, unspecified; I10 Essential (primary) hypertension; I25.10 Atherosclerotic heart disease of native coronary artery without angina pectoris; I48.91 Unspecified atrial fibrillation; M06.9 Rheumatoid arthritis, unspecified; M35.00 Sjogren syndrome, unspecified; Z79.4 Long term (current) use of insulin; Z79.01 Long term (current) use of anticoagulants; Z88.1 Allergy status to other antibiotic agents; Z79.890 Hormone replacement therapy; Z79.899 Other long term (current) drug therapy
CPT/HCPCS: 96361; 96374; 99284; 36415; 93005; 85379; 83880; 80053; 82009; 83605; 83735; 84100; 84484; 85025; 85610; 85730; G0378; J2270

== ENCOUNTER 2023-12-22 13:06 | Inpatient (IN) | payer MEDICARE ==
[2023-12-22 13:21] LABS: Glucose,Whole Blood 420 mg/dL (70-110)
--- NOTE | 2023-12-22 13:29 | ED ---
General Adult HPI - General Chief complaint: Wound/Laceration Stated complaint: L foot wound Time Seen by Provider: 12/22/23 13:11 Source: patient, EMS, RN notes reviewed Mode of arrival: EMS Limitations: no limitations - History of Present Illness Initial comments: Patient is an 83-year-old female presenting to the emergency department from home. Patient did have her visiting nurse come out today and was advised to have her wound checked. Visiting nurse was also concerned about her blood sugar over 400 and her ability to take care of herself at home. She does request patient be admitted for placement. Patient feels she is not able to take care of herself at home and agrees that she needs placement - Related Data Home Medications Medication Instructions Recorded Confirmed Latanoprost [Xalatan 0.005%] 1 drop BOTH EYES HS@0000 08/11/17 12/14/23 predniSONE 10 mg PO DAILY@0800 07/23/21 12/14/23 Calcium Citrate/Vitamin D3 1 tab PO BID@0800,1800 11/16/21 12/14/23 [Citracal + D Maximum Caplet] Digoxin [Lanoxin] 125 mcg PO Q48H 11/16/21 12/14/23 Nitroglycerin Sl Tabs [Nitrostat] 0.4 mg SL Q5M PRN 11/16/21 12/14/23 Adalimumab [Humira(Cf) Pen] 40 mg SQ Q14D 01/09/22 12/14/23 Apixaban [Eliquis] 5 mg PO BID@0800,1800 05/02/22 12/14/23 INSULIN LISPRO (HumaLOG) [humaLOG] 6 units SQ AC-TID 05/02/22 12/14/23 INSULIN LISPRO (HumaLOG) [humaLOG] See Protocol SQ AC-TID PRN 05/02/22 12/14/23 Multivit-Min/FA/Lycopen/Lutein 1 tab PO DAILY@0800 05/02/22 12/14/23 [Centrum Silver Tablet] Levothyroxine Sodium [Synthroid] 150 mcg PO HS@0000 09/02/22 12/14/23 traZODone HCL [Desyrel] 50 mg PO HS@0000 12/15/22 12/14/23 Tolterodine ER [Detrol LA] 4 mg PO DAILY@1200 05/15/23 12/14/23 metFORMIN HCL [Glucophage] 500 mg PO DAILY@1800 05/25/23 12/14/23 Acetaminophen Tab [Tylenol] 500 mg PO QID@00,06,12,18 11/23/23 12/14/23 Bumetanide [BUMEX] 2 mg PO BID@0800,1800 11/23/23 12/14/23 Cyclobenzaprine [Flexeril] 10 mg PO HS@0000 11/23/23 12/14/23 Gabapentin [Neurontin] 400 mg PO QID@00,06,12,18 11/23/23 12/14/23 Insulin Glargine,Hum.rec.anlog 24 units SQ DAILY@179911/23/23 12/14/23 [Lantus Solostar Pen] Insulin Glargine,Hum.rec.anlog 34 units SQ DAILY@0800 11/23/23 12/14/23 [Lantus Solostar Pen] Loratadine [Claritin] 10 mg PO DAILY@0800 11/23/23 12/14/23 Magnesium Oxide [Mag-Ox] 250 mg PO DAILY@0800 11/23/23 12/14/23 Ondansetron Odt [Zofran ODT] 8 mg PO TID PRN 11/23/23 12/14/23 Potassium Chloride ER [K-Dur 20] 20 meq PO BID@0800,1800 11/23/23 12/14/23 Semaglutide [Ozempic] 0.5 mg SQ FR 11/23/23 12/14/23 oxyCODONE-APAP 7.5-325MG [Percocet 1 tab PO QID@00,06,12,18 11/23/23 12/14/23 7.5-325 mg] Allergies Allergy/AdvReac Type Severity Reaction Status Date / Time adhesive Allergy Rash/Hives Verified 12/22/23 13:17 cephalexin [From Keflex] Allergy Rash/Hives Verified 12/22/23 13:17 grass pollen Allergy Unknown Verified 12/22/23 13:17 mold Allergy Unknown Verified 12/22/23 13:17 newspaper ink Allergy Mild Unknown Uncoded 12/22/23 13:17 Review of Systems ROS Statement: Those systems with pertinent positive or pertinent negative responses have been documented in the HPI. ROS Other: All systems not noted in ROS Statement are negative. Constitutional: Denies: fever Eyes: Denies: eye pain ENT: Denies: ear pain Respiratory: Denies: dyspnea Cardiovascular: Denies: chest pain Endocrine: Reports: fatigue Gastrointestinal: Denies: abdominal pain Skin: Reports: as per HPI Past Medical History Past Medical History: Atrial Fibrillation, Coronary Artery Disease (CAD), Cancer, Diabetes Mellitus, Hyperlipidemia, Hypertension, Musculoskeletal Disorder, Neurologic Disorder, Osteoarthritis (OA), Pneumonia, Renal Disease, Rheumatoid Arthritis (RA), Skin Disorder, Thyroid Disorder Additional Past Medical History / Comment(s): Morbid obesity, chronic atrial fibrillation, diabetes mellitus type 2, hypertension, hyperlipidemia, spinal stenosis, osteoarthritis, hypothyroidism, hypertension, history of skin melanoma, history of bursitis with MRSA post I&D, rheumatoid arthritis, Sjogren's disease, 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 without any indication of ILD related to RA, Fall on July 22 transfer to [facility] for MRI, then Fall on 11/16/21 History of Any Multi-Drug Resistant Organisms: MRSA Date of last positivie culture/infection: 09/02/22 MDRO Source:: Right Leg Past Surgical History: Back Surgery, Breast Surgery, Cholecystectomy, Heart Cath eterization, Joint Replacement, Orthopedic Surgery Additional Past Surgical History / Comment(s): Bilateral cataracts with lens implants, arthroscopies to lt wrist, gualberto knees, gualberto ankles, gualberto hips, lt hip replacment and redone, L/R shoulder sxs, rt breast bx-benign, egd/colonoscopy, skin cancer removal L arm, Lumbar fixnation possible broken Past Anesthesia/Blood Transfusion Reactions: No Reported Reaction Additional Past Anesthesia/Blood Transfusion Reaction / Comment(s): Pt has been told not to have anesthesia metabolized by the kidneys and has neurologic Sjogren's with post anesthesia paralysis. Past Psychological History: No Psychological Hx Reported Smoking Status: Unknown if ever smoked Past Alcohol Use History: None Reported Past Drug Use History: None Reported - Past Family History Mother Family Medical History: CVA/TIA Additional Family Medical History / Comment(s): RUPTURED BOWEL Father Family Medical History: Cancer, Pneumonia Additional Family Medical History / Comment(s): ASPIRATIVE PNA Sister(s) Additional Family Medical History / Comment(s): at age 34 with lupus General Exam Limitations: no limitations General appearance: alert, in no apparent distress Head exam: Present: normocephalic Eye exam: Present: normal appearance ENT exam: Present: normal oropharynx Neck exam: Present: normal inspection Respiratory exam: Present: normal lung sounds bilaterally Cardiovascular Exam: Present: regular rate, normal rhythm GI/Abdominal exam: Present: soft. Absent: tenderness Extremities exam: Present: normal inspection Neurological exam: Present: alert Psychiatric exam: Present: normal affect, normal mood Skin exam: Present: other (Stage II/III ulcer approximately 2 cm left medial malleolus ) Course Vital Signs 12/22/23 13:13 Temperature 98.3 F Pulse Rate 76 Respiratory 18 Rate Blood Pressure 124/53 O2 Sat by Pulse 95 Oximetry EKG Findings - EKG Results: EKG: interpreted by ERMD (Right axis. Inferior and lateral ST depression. RVH) EKG shows: atrial fibrillation Medical Decision Making - Medical Decision Making Was pt. sent in by a medical professional or institution (, PA, COMPUTER SUPPORT ANALYST, urgent care, hospital, or long-term...) When possible be specific @ -Visiting nurses send patient Did you speak to anyone other than the patient for history (EMS, parent, family, police, friend...)? What history was obtained from this source @ -Visiting nurse called and expressed concerns regarding patient's living conditions and inability to take care of herself Did you review nursing and triage notes (agree or disagree)? Why? @ -I reviewed and agree with nursing and triage notes Were old charts reviewed (outside hosp., previous admission, EMS record, old EKG, old radiological studies, urgent care reports/EKG's, long-term records)? Report findings @ -No old charts were reviewed Differential Diagnosis (chest pain, altered mental status, abdominal pain women, abdominal pain men, vaginal bleeding, weakness, fever, dyspnea, syncope, headache, dizziness, GI bleed, back pain, seizure, CVA, palpatations, mental health, musculoskeletal)? @ -Differential Weakness: Hypoglycemia, shock, sepsis, hyponatremia, anemia, infection, MN, ETOH, adverse medicine reaction, overdose, stroke, this is not meant to be an all-inclusive list. EKG interpreted by me (3pts min.). @ -As above X-rays interpreted by me (1pt min.). @ -Chest x-ray shows nonspecific increased interstitial changes. Ankle x-ray shows mild soft tissue swelling, old fracture CT interpreted by me (1pt min.). @ - U/S interpreted by me (1pt. min.). @ -None done What testing was considered but not performed or refused? (CT, X-rays, U/S, labs)? Why? @ -None What meds were considered but not given or refused? Why? @ -None Did you discuss the management of the patient with other professionals (professionals i.e. DrAlejandra, PA, COMPUTER SUPPORT ANALYST, lab, RT, psych nurse, mental health social worker, shrub grower, teacher, chief revenue officer, immigration case manager)? Give summary @ -Case discussed with Dr. Santos who will admit covering Dr. Hart Was smoking cessation discussed for >3mins.? @ -No Was critical care preformed (if so, how long)? @ -No Were there social determinants of health that impacted care today? How? (Homelessness, low income, unemployed, alcoholism, drug addiction, transportation, low edu. Level, literacy, decrease access to med. care, alf, rehab)? @ -No Was there de-escalation of care discussed even if they declined (Discuss DNR or withdrawal of care, Hospice)? DNR status @ -No What co-morbidities impacted this encounter? (DM, HTN, Smoking, COPD, CAD, Cancer, CVA, ARF, Chemo, Hep., AIDS, mental health diagnosis, sleep apnea, morbid obesity)? @ -None Was patient admitted / discharged? Hospital course, mention meds given and route, prescriptions, significant lab abnormalities, going to OR and other perti nent info. @ -Patient presents with weakness, hyperglycemia, leg ulcer and inability to take care of herself. Patient will be admitted. [place] orders written Undiagnosed new problem with uncertain prognosis? @ -No Drug Therapy requiring intensive monitoring for toxicity (Heparin, Nitro, Insulin, Cardizem)? @ -No Were any procedures done? @ -No Diagnosis/symptom? @ -Weakness, hyperglycemia, leg ulcer Acute, or Chronic, or Acute on Chronic? @ -Acute, acute, acute on chronic Uncomplicated (without systemic symptoms) or Complicated (systemic symptoms)? @ -Default Side effects of treatment? @ -No Exacerbation, Progression, or Severe Exacerbation? @ -No Poses a threat to life or bodily function? How? (Chest pain, USA, MN, pneumonia, PE, COPD, DKA, ARF, appy, cholecystitis, CVA, Diverticulitis, Homicidal, Suicidal, threat to staff... and all critical care pts) @ -No - Lab Data Result diagrams: 12/22/23 13:36 12/22/23 13:36 Lab Results 12/22/23 12/22/23 12/22/23 Range/Units 13:20 13:36 13:36 WBC 7.6 (3.8-10.6) k/uL RBC 3.97 (3.80-5.40) m/uL Hgb 12.7 (11.4-16.0) gm/dL Hct 38.8 (34.0-46.0) % MCV 97.6 (80.0-100.0) fL MCH 32.1 (25.0-35.0) pg MCHC 32.8 (31.0-37.0) g/dL RDW 13.5 (11.5-15.5) % Plt Count 189 (150-450) k/uL MPV 7.2 Neutrophils % 63 % Lymphocytes % 24 % Monocytes % 6 % Eosinophils % 4 % Basophils % 1 % Neutrophils # 4.8 (1.3-7.7) k/uL Lymphocytes # 1.8 (1.0-4.8) k/uL Monocytes # 0.5 (0-1.0) k/uL Eosinophils # 0.3 (0-0.7) k/uL Basophils # 0.0 (0-0.2) k/uL Sodium 132 L (137-145) mmol/L Potassium 3.6 (3.5-5.1) mmol/L Chloride 97 L (98-107) mmol/L Carbon Dioxide 30 (22-30) mmol/L Anion Gap 5 mmol/L BUN 25 H (7-17) mg/dL Creatinine 0.62 (0.52-1.04) mg/dL Est GFR (CKD-EPI)AfAm >90 (>60 ml/min/1.73 sqM) Est GFR (CKD-EPI)NonAf 84 (>60 ml/min/1.73 sqM) Glucose 407 H (74-99) mg/dL POC Glucose (mg/dL) 420 H (70-110) mg/dL POC Glu Pl[employer] Kettle Tender ID [place]ett Smith Plasma Lactic Acid Cj (0.7-2.0) mmol/L Calcium 8.6 (8.4-10.2) mg/dL Magnesium 1.7 (1.6-2.3) mg/dL Total Bilirubin 0.8 (0.2-1.3) mg/dL AST 36 (14-36) U/L ALT 23 (4-34) U/L Alkaline Phosphatase 72 (38-126) U/L Total Protein 6.4 (6.3-8.2) g/dL Albumin 3.4 L (3.5-5.0) g/dL Acetone, Qual Negative (Negative) 12/22/23 Range/Units 13:36 WBC (3.8-10.6) k/uL RBC (3.80-5.40) m/uL Hgb (11.4-16.0) gm/dL Hct (34.0-46.0) % MCV (80.0-100.0) fL MCH (25.0-35.0) pg MCHC (31.0-37.0) g/dL RDW (11.5-15.5) % Plt Count (150-450) k/uL MPV Neutrophils % % Lymphocytes % % Monocytes % % Eosinophils % % Basophils % % Neutrophils # (1.3-7.7) k/uL Lymphocytes # (1.0-4.8) k/uL Monocytes # (0-1.0) k/uL Eosinophils # (0-0.7) k/uL Basophils # (0-0.2) k/uL Sodium (137-145) mmol/L Potassium (3.5-5.1) mmol/L Chloride (98-107) mmol/L Carbon Dioxide (22-30) mmol/L Anion Gap mmol/L BUN (7-17) mg/dL Creatinine (0.52-1.04) mg/dL Est GFR (CKD-EPI)AfAm (>60 ml/min/1.73 sqM) Est GFR (CKD-EPI)NonAf (>60 ml/min/1.73 sqM) Glucose (74-99) mg/dL POC Glucose (mg/dL) (70-110) mg/dL POC Glu Platinum [employer] Pall[employer] Kettle Tender ID Plasma Lactic Acid Cj 2.1 H* (0.7-2.0) mmol/L Calcium (8.4-10.2) mg/dL Magnesium (1.6-2.3) mg/dL Total Bilirubin (0.2-1.3) mg/dL AST (14-36) U/L ALT (4-34) U/L Alkaline Phosphatase (38-126) U/L Total Protein (6.3-8.2) g/dL Albumin (3.5-5.0) g/dL Acetone, Qual (Negative) Disposition Clinical Impression: Weakness, Hyperglycemia, Ankle ulcer Disposition: ADMITTED IP TO THIS HOSP Is patient prescribed a controlled substance at d/c from ED?: No Referrals: Nicholas Hart MD [Primary Care Provider] - 1-2 days Time of Disposition: 15:04
[2023-12-22 13:55] LABS: Basophils % (A) 1 %; Eosinophils # (A) 0.3 k/uL (0-0.7); Eosinophils % (A) 4 %; HCT 38.8 % (34.0-46.0); HGB 12.7 gm/dL (11.4-16.0); Lymphocytes # (A) 1.8 k/uL (1.0-4.8); Lymphocytes % (A) 24 %; MCH 32.1 pg (25.0-35.0); MCHC 32.8 g/dL (31.0-37.0); MCV 97.6 fL (80.0-100.0); Mean Platelet Volume 7.2; Monocytes # (A) 0.5 k/uL (0-1.0); Monocytes % (A) 6 %; Neutrophils # (A) 4.8 k/uL (1.3-7.7); Neutrophils % (A) 63 %; Platelet Count 189 k/uL (150-450); RBC 3.97 m/uL (3.80-5.40); RDW 13.5 % (11.5-15.5); WBC 7.6 k/uL (3.8-10.6)
--- NOTE | 2023-12-22 14:06 | XR ---
EXAMINATION TYPE: XR chest 2V DATE OF EXAM: 12/22/2023 2:01 PM COMPARISON: Chest radiographs from 11/23/2023 TECHNIQUE: XR chest 2V Frontal and lateral views of the chest. CLINICAL INDICATION:Female, 83 years old with history of Weakness; FINDINGS: Lungs/Pleura: There is no evidence of pleural effusion, focal consolidation, or pneumothorax. Pulmonary vascularity: Mild pulmonary vascular congestion. Heart/mediastinum: Cardiomediastinal silhouette is enlarged and stable. Atherosclerotic calcificatio ns are seen in the aorta. Musculoskeletal: No acute osseous pathology. Partial visualization of cervical fusion hardware. IMPRESSION: Cardiomegaly and mild pulmonary vascular congestion. Correlate with BNP for congestive heart failure. [facility], , 12/22/2023 2:04 PM
--- NOTE | 2023-12-22 14:10 | XR ---
EXAMINATION TYPE: XR ankle complete LT DATE OF EXAM: 12/22/2023 COMPARISON: Bilateral tibia/fibular radiograph 06/16/2023, CT left foot 12/15/2022, 12/15/2022 HISTORY: Wound TECHNIQUE: 3 views of the left ankle are submitted for evaluation. FINDINGS: There is no evidence for fracture or dislocation. Advanced degenerative changes of the ankl e joint with joint space narrowing and sclerosis and osteophytosis. Remote ununited fracture of the m edial malleolus. Remote healed fracture of the distal fibula. Plantar calcaneal enthesophyte. Pes katya nus suggested. Calcification has increased along the anterior tibial soft tissues from prior examinat ion. Minimal soft tissue swelling of the ankle. No definitive osseous erosion. Subtle soft tissue irr egularity along the medial malleoli region of patient's known wound. IMPRESSION: 1. No evidence for acute fracture. 2. Advanced degenerative changes of the ankle. 3. Remote fractures to the distal fibula and medial malleolus. 4. Minimal soft tissue swelling of the ankle ankle with subtle soft tissue irregularity along the med ial malleolus at the patient's region of known wound. No definitive osseous erosions are soft tissue gas. [facility], , 12/22/2023 2:08 PM
[2023-12-22 14:44] LABS: ALT 23 U/L (4-34); African American GFR (CKD) >90 (>60 ml/min/1.73 sqM); Albumin 3.4 g/dL (3.5-5.0); Anion Gap 5 mmol/L; Blood Urea Nitrogen 25 mg/dL (7-17); Calcium 8.6 mg/dL (8.4-10.2); Carbon Dioxide 30 mmol/L (22-30); Chloride 97 mmol/L (98-107); Glucose 407 mg/dL (74-99); Non-African American GFR(CKD) 84 (>60 ml/min/1.73 sqM); Sodium 132 mmol/L (137-145); Total Bilirubin 0.8 mg/dL (0.2-1.3); Total Protein 6.4 g/dL (6.3-8.2)
[2023-12-22 14:54] LABS: Potassium 3.6 mmol/L (3.5-5.1)
[2023-12-22 14:55] LABS: AST 36 U/L (14-36); Alkaline Phosphatase 72 U/L (38-126); Magnesium 1.7 mg/dL (1.6-2.3)
[2023-12-22] MEDS ORDERED: DEXTROSE 50% SYRINGE 50 ML IVP PRN ×2 (15:05)
[2023-12-22] MEDS ORDERED: NALOXONE 0.4 MG/ML 1 ML VIAL IV PRN (15:07)
[2023-12-22] MEDS: SODIUM CHLORIDE 0.9% 1,000 ML IV STA (15:16)
[2023-12-22 15:25] LABS: Appearance,Urine Clear (Clear); Bilirubin,Urine Negative (Negative); Blood,Urine Negative (Negative); Color,Urine Colorless; Glucose,Urine (UA) 4+ (Negative); Ketones,Urine Negative (Negative); Leukocyte Esterase,Urine Negative (Negative); Nitrite,Urine Negative (Negative); PH, Urine 5.5 (5.0-8.0); Protein,Urine Negative (Negative); Specific Gravity,Urine 1.018 (1.001-1.035); Urobilinogen,Urine <2.0 mg/dL (<2.0)
[2023-12-22] MEDS: SODIUM CHLORIDE 0.9% 1,000 ML IV SCH (15:50)
[2023-12-22 17:27] LABS: Glucose,Whole Blood 282 mg/dL (70-110)
[2023-12-22] MEDS: INSULIN ASPART (NovoLOG) 100 UNIT/ML VIAL SQ SCH (17:34)
[2023-12-22 20:33] LABS: Glucose,Whole Blood 353 mg/dL (70-110)
[2023-12-22] MEDS: CYCLOBENZAPRINE 10 MG TAB PO SCH (21:02)
[2023-12-22] MEDS: oxyCODONE-APAP 7.5-325MG 1 EACH TAB PO SCH (21:02)
[2023-12-22] MEDS: GABAPENTIN 400 MG CAP PO SCH (21:03)
[2023-12-22] MEDS: traZODone HCL 50 MG TAB PO SCH (21:04)
--- NOTE | 2023-12-22 21:59 | P.HPIM ---
History of Present Illness H&P Date: 12/22/23 Chief Complaint: Left foot wound 83-year-old female, history of hypertension, hyperlipidemia, diabetes mellitus, atrial fibrillation, CAD, rheumatoid arthritis, hypothyroidism, presenting to the emergency department from home. Patient did have her visiting nurse come out today and was advised to have her wound checked. Visiting nurse was also concerned about her blood sugar over 400 and her ability to take care of herself at home. She does request patient be admitted for placement. Patient feels she is not able to take care of herself at home and agrees that she needs placement; patient herself is not able to give much history Workup in ED including a chest x-ray reveals nonspecific increased interstitial changes --Ankle x-ray shows mild soft tissue swelling and old fracture Blood work reveals WBC of 7.6, hemoglobin of 12.7 and platelet count of 189, sodium 132, potassium/creatinine 0.5/0.62 and blood glucose of 407; lactic acid 2.1 Review of Systems REVIEW OF SYSTEMS: CONSTITUTIONAL: No fever, no malaise, no fatigue. HEENT: No recent visual problems or hearing problems. Denied any sore throat. CARDIOVASCULAR: No chest pain, orthopnea, PND, no palpitations, no syncope. PULMONARY: No shortness of breath, no cough, no hemoptysis. GASTROINTESTINAL: No diarrhea, no nausea, no vomiting, no abdominal pain. NEUROLOGICAL: No headaches, no weakness, no numbness. HEMATOLOGICAL: Denies any bleeding or petechiae. GENITOURINARY: Denies any burning micturition, frequency, or urgency. MUSCULOSKELETAL/RHEUMATOLOGICAL: Denies any joint pain, swelling, or any muscle pain. ENDOCRINE: Denies any polyuria or polydipsia. The rest of the 14-point review of systems is negative. Past Medical History Past Medical History: Atrial Fibrillation, Coronary Artery Disease (CAD), Cancer, Diabetes Mellitus, Hyperlipidemia, Hypertension, Musculoskeletal Disorder, Neurologic Disorder, Osteoarthritis (OA), Pneumonia, Renal Disease, Rheumatoid Arthritis (RA), Skin Disorder, Thyroid Disorder Additional Past Medical History / Comment(s): Morbid obesity, chronic atrial fibrillation, diabetes mellitus type 2, hypertension, hyperlipidemia, spinal stenosis, osteoarthritis, hypothyroidism, hypertension, history of skin melanoma, history of bursitis with MRSA post I&D, rheumatoid arthritis, Sjogren's disease, 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 without any indication of ILD related to RA, Fall on July 22 transfer to [facility] for MRI, then Fall on 11/16/21 History of Any Multi-Drug Resistant Organisms: MRSA Date of last positivie culture/infection: 09/02/22 MDRO Source:: Right Leg Past Surgical History: Back Surgery, Breast Surgery, Cholecystectomy, Heart Catheterization, Joint Replacement, Orthopedic Surgery Additional Past Surgical History / Comment(s): Bilateral cataracts with lens implants, arthroscopies to lt wrist, gualberto knees, gualberto ankles, gualberto hips, lt hip replacment and redone, L/R shoulder sxs, rt breast bx-benign, egd/colonoscopy, skin cancer removal L arm, Lumbar fixnation possible broken Past Anesthesia/Blood Transfusion Reactions: No Reported Reaction Additional Past Anesthesia/Blood Transfusion Reaction / Comment(s): Pt has been told not to have anesthesia metabolized by the kidneys and has neurologic Sjogren's with post anesthesia paralysis. Past Psychological History: No Psychological Hx Reported Smoking Status: Unknown if ever smoked Past Alcohol Use History: None Reported Past Drug Use History: None Reported - Past Family History Mother Family Medical History: CVA/TIA Additional Family Medical History / Comment(s): RUPTURED BOWEL Father Family Medical History: Cancer, Pneumonia Additional Family Medical History / Comment(s): ASPIRATIVE PNA Sister(s) Additional Family Medical History / Comment(s): at age 34 with lupus Medications and Allergies Home Medications Medication Instructions Recorded Confirmed Type Latanoprost [Xalatan 0.005%] 1 drop BOTH EYES HS@0000 08/11/17 12/22/23 History predniSONE 10 mg PO DAILY@0800 07/23/21 12/22/23 History Calcium Citrate/Vitamin D3 1 tab PO BID@0800,1800 11/16/21 12/22/23 History [Citracal + D Maximum Caplet] Digoxin [Lanoxin] 125 mcg PO Q48H 11/16/21 12/22/23 History Nitroglycerin Sl Tabs [Nitrostat] 0.4 mg SL Q5M PRN 11/16/21 12/22/23 History Adalimumab [Humira(Cf) Pen] 40 mg SQ Q14D 01/09/22 12/22/23 History Apixaban [Eliquis] 5 mg PO BID@0800,1800 05/02/22 12/22/23 History INSULIN LISPRO (HumaLOG) [humaLOG] 6 units SQ AC-TID 05/02/22 12/22/23 History INSULIN LISPRO (HumaLOG) [humaLOG] See Protocol SQ AC-TID 05/02/22 12/22/23 History Multivit-Min/FA/Lycopen/Lutein 1 tab PO DAILY@0800 05/02/22 12/22/23 History [Centrum Silver Tablet] Levothyroxine Sodium [Synthroid] 150 mcg PO HS@0000 09/02/22 12/22/23 History traZODone HCL [Desyrel] 50 mg PO HS@0000 12/15/22 12/22/23 History Tolterodine ER [Detrol LA] 4 mg PO DAILY@1200 05/15/23 12/22/23 History metFORMIN HCL [Glucophage] 500 mg PO DAILY@1800 05/25/23 12/22/23 History Acetaminophen Tab [Tylenol] 500 mg PO QID@00,06,12,11/23/23 12/22/23 History Bumetanide [BUMEX] 2 mg PO BID@0800,1800 11/23/23 12/22/23 History Cyclobenzaprine [Flexeril] 10 mg PO HS@0000 11/23/23 12/22/23 History Gabapentin [Neurontin] 400 mg PO QID@00,06,12,18 11/23/23 12/22/23 History Insulin Glargine,Hum.rec.anlog 24 units SQ DAILY@1800 11/23/23 12/22/23 History [Lantus Solostar Pen] Insulin Glargine,Hum.rec.anlog 34 units SQ DAILY@0800 11/23/23 12/22/23 History [Lantus Solostar Pen] Loratadine [Claritin] 10 mg PO DAILY@0800 11/23/23 12/22/23 History Magnesium Oxide [Mag-Ox] 250 mg PO DAILY@0800 11/23/23 12/22/23 History Ondansetron Odt [Zofran ODT] 8 mg PO TID PRN 11/23/23 12/22/23 History Potassium Chloride ER [K-Dur 20] 20 meq PO BID@0800,1800 11/23/23 12/22/23 History Semaglutide [Ozempic] 0.5 mg SQ FR 11/23/23 12/22/23 History oxyCODONE-APAP 7.5-325MG [Percocet 1 tab PO QID@00,06,12,18 11/23/23 12/22/23 History 7.5-325 mg] Allergies Allergy/AdvReac Type Severity Reaction Status Date / Time adhesive Allergy Rash/Hives Verified 12/22/23 16:54 cephalexin [From Keflex] Allergy Rash/Hives Verified 12/22/23 16:54 grass pollen Allergy Unknown Verified 12/22/23 16:54 mold Allergy Unknown Verified 12/22/23 16:54 newspaper ink Allergy Mild Unknown Uncoded 12/22/23 16:54 Physical Exam Vitals: Vital Signs Temp Pulse Resp BP Pulse Ox 12/22/23 13:13 98.3 F 76 18 124/53 95 Intake and Output 12/22/23 12/22/23 12/22/23 06:59 14:59 22:59 Other: Weight 117.934 kg General appearance: alert, in no apparent distress Head exam: Present: normocephalic Eye exam: Present: normal appearance ENT exam: Present: normal oropharynx Neck exam: Present: normal inspection Respiratory exam: Present: normal lung sounds bilaterally Cardiovascular Exam: Present: regular rate, normal rhythm GI/Abdominal exam: Present: soft. Absent: tenderness Extremities exam: Present: normal inspection Neurological exam: Present: alert Psychiatric exam: Present: normal affect, normal mood Skin exam: Present: other (Stage II/III ulcer approximately 2 cm left medial malleolus ) Results CBC & Chem 7: 12/22/23 13:36 12/22/23 13:36 Labs: Abnormal Lab Results - Last 24 Hours (Table) 12/22/23 12/22/23 12/22/23 Range/Units 13:20 13:23 13:36 Sodium 132 L (137-145) mmol/L Chloride 97 L (98-107) mmol/L BUN 25 H (7-17) mg/dL Glucose 407 H (74-99) mg/dL POC Glucose (mg/dL) 420 H (70-110) mg/dL Plasma Lactic Acid Cj (0.7-2.0) mmol/L Albumin 3.4 L (3.5-5.0) g/dL Urine Glucose (UA) 4+ H (Negative) 12/22/23 Range/Units 13:36 Sodium (137-145) mmol/L Chloride (98-107) mmol/L BUN (7-17) mg/dL Glucose (74-99) mg/dL POC Glucose (mg/dL) (70-110) mg/dL Plasma Lactic Acid Cj 2.1 H* (0.7-2.0) mmol/L Albumin (3.5-5.0) g/dL Urine Glucose (UA) (Negative) Assessment and Plan Assessment: 1. Hyperglycemia without acidosis; uncontrolled diabetes mellitus 2. Mild ASYA; BUN is slightly elevated at 25 with normal creatinine; patient advised increased fluid oral intake 3. Ankle ulcer; failing outpatient management; will consult wound care; start patient on empiric IV antibiotics; consult ID 4. Generalized weakness/debility; patient unable to care for self at home; we will consult PT/OT 5. Diabetes mellitus with long-term insulin use; patient takes Lantus 24 units nightly and 34 units in the morning along with Humalog 6 units before every meal; metformin 500 mg daily and Ozempic 0.5 mg weekly; we will continue home regimen and add sliding scale 6. Atrial fibrillation; patient is rate controlled on digoxin 125 mcg every 48 hours along with anticoagulation with Eliquis 7. Hypothyroidism; levothyroxine 150 mcg daily 8. Rheumatoid arthritis; continue home medications; patient also takes Humira 40 mg subcu q. 14 days; prednisone 10 mg daily; Flexeril 10 mg p.o. nightly; Neurontin 400 mg 4 times daily and oxycodone 7.5 mg DVT prophylaxis; SCDs/Eliquis CODE STATUS; full code
[2023-12-22] MEDS: LATANOPROST 0.005% OPHTH DROPS 2.5 ML BTL BOTH EYES SCH (23:45)
[2023-12-22] MEDS: ACETAMINOPHEN TAB 500 MG TAB PO SCH (23:45)
[2023-12-23] MEDS ORDERED: LEVOTHYROXINE 75 MCG TAB PO SCH
[2023-12-23] MEDS: oxyCODONE-APAP 7.5-325MG 1 EACH TAB PO SCH (02:12)
[2023-12-23] MEDS: LEVOTHYROXINE 75 MCG TAB PO SCH (05:42)
[2023-12-23 07:32] LABS: Glucose,Whole Blood 383 mg/dL (70-110)
[2023-12-23] MEDS: INSULIN DETEMIR (LEVEMIR) 100 UNIT/ML SYR SQ SCH ×2 (09:09→18:48)
[2023-12-23] MEDS: INSULIN ASPART (NovoLOG) 100 UNIT/ML VIAL SQ SCH ×2 (09:09→13:38)
[2023-12-23] MEDS: APIXABAN 5 MG TAB PO SCH (09:10)
[2023-12-23] MEDS: BUMETANIDE 1 MG TAB PO SCH (09:11)
[2023-12-23] MEDS: POTASSIUM CHLORIDE ER 20 MEQ TAB.ER PO SCH (09:12)
[2023-12-23] MEDS: MAGNESIUM OXIDE 400 MG TAB PO SCH (09:12)
[2023-12-23] MEDS: CALCIUM CARB-VIT D 500 MG-5 MCG TAB PO SCH (09:12)
[2023-12-23] MEDS: LORATADINE 10 MG TAB PO SCH (09:12)
[2023-12-23] MEDS: DIGOXIN 125 MCG TAB PO SCH (09:13)
[2023-12-23] MEDS: predniSONE 10 MG TAB PO SCH (09:13)
[2023-12-23] MEDS: VIT A,C & E-LUTEIN-MINERALS 1 EACH TAB PO SCH (09:13)
[2023-12-23 09:28] LABS: BUN/Creat Ratio 22.88 Ratio (12.00-20.00); Blood Urea Nitrogen 18.3 mg/dL (9.0-27.0); Calcium 8.9 mg/dL (8.7-10.3); Carbon Dioxide 29.4 mmol/L (21.6-31.8); Chloride 96 mmol/L (96-109); Glucose 328 mg/dL (70-110); Potassium 3.5 mmol/L (3.5-5.5); Sodium 136 mmol/L (135-145)
[2023-12-23 09:31] LABS: HCT 37.7 % (37.2-46.3); HGB 12.4 g/dL (12.0-15.0); MCH 31.8 pg (27.0-32.0); MCHC 32.9 g/dL (32.0-37.0); MCV 96.7 FL (80.0-97.0); NRBC Per 100 WBC 0 X 10*3/uL (0.00-0.01); Platelet Count 165 X 10*3/uL (140-440); RDW 13.7 % (11.5-14.5); WBC 6.78 X 10*3/uL (4.50-10.00)
[2023-12-23 09:32] LABS: Basophils # (A) 0.05 X 10*3/uL (0.00-0.10); Basophils % (A) 0.7 %; Eosinophils # (A) 0.27 X 10*3/uL (0.04-0.35); Lymphocytes # (A) 2.34 X 10*3/uL (0.90-5.00); Lymphocytes % (A) 34.5 %; Monocytes # (A) 0.62 X 10*3/uL (0.20-1.00); Monocytes % (A) 9.1 %; Neutrophils # (A) 3.47 X 10*3/uL (1.80-7.70); Neutrophils % (A) 51.3 %
[2023-12-23 12:35] LABS: Glucose,Whole Blood 230 mg/dL (70-110)
[2023-12-23] MEDS: OXYBUTYNIN XL 5 MG TAB.ER.24 PO SCH (13:36)
[2023-12-23 14:45] VITALS: BMI 32.5
[2023-12-23 17:27] LABS: Glucose,Whole Blood 220 mg/dL (70-110)
[2023-12-23] MEDS: metFORMIN 500 MG TAB PO SCH (18:00)
[2023-12-23 20:10] LABS: Glucose,Whole Blood 249 mg/dL (70-110)
--- NOTE | 2023-12-23 22:43 | P.CONS ---
History of Present Illness - Reason for Consult Consult date: 12/23/23 Ankle wound Requesting physician: Amanda Samuels - Chief Complaint Nonhealing wound to the left ankle x weeks - History of Present Illness Patient is a 83-year-old female with a past medical history significant for coronary disease diabetes mellitus hypertension hyperlipidemia osteoarthritis history of recurrent left lower extremity cellulitis patient apparently has developed a wound to the left medial ankle area that she has for couple of weeks ago and has been taking care of by the home care nurse patient denies having any history of trauma before this started he was visited by the home care nurse who looked at the wound and told the patient she need to go to the hospital to be checked out patient denies high-grade fever or any chills patient be complaining of mild dull aching pain to the left leg wound area without radiation and no drainage minimal swelling no significant redness patient denies having any chest pain shortness of breath or cough no nausea vomiting abdominal pain no diarrhea patient on presentation the hospital was afebrile no fever have been called subsequently patient was not tachycardic hypotensive or hypoxic white count was 6.78 creatinine is 0.8 hemoglobin this is 11.1 patient did have a chest x-ray cardiomegaly pulmonary vascular congestion ankle x-ray no evidence for acute fracture advanced degenerative changes minimal soft tissue swelling of the ankle with soft tissue irregularity along the medial malleolus no bony erosion Review of Systems Positive point and negatives has been mentioned in the HPI, complete review of systems was performed and all other systems are negative Past Medical History Past Medical History: Atrial Fibrillation, Coronary Artery Disease (CAD), Cancer, Diabetes Mellitus, Hyperlipidemia, Hypertension, Musculoskeletal Disorder, Neurologic Disorder, Osteoarthritis (OA), Pneumonia, Renal Disease, Rheumatoid Arthritis (RA), Skin Disorder, Thyroid Disorder Additional Past Medical History / Comment(s): Morbid obesity, chronic atrial fibrillation, diabetes mellitus type 2, hypertension, hyperlipidemia, spinal stenosis, osteoarthritis, hypothyroidism, hypertension, history of skin melanoma, history of bursitis with MRSA post I&D, rheumatoid arthritis, Sjogren's disease, 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 without any indication of ILD related to RA, Fall on July 22 transfer to [facility] for MRI, then Fall on 11/16/21 History of Any Multi-Drug Resistant Organisms: MRSA Year Discovered:: 09/02/22 MDRO Source:: Right Leg Past Surgical History: Back Surgery, Breast Surgery, Cholecystectomy, Heart Catheterization, Joint Replacement, Orthopedic Surgery Additional Past Surgical History / Comment(s): Bilateral cataracts with lens implants, arthroscopies to lt wrist, gualberto knees, gualberto ankles, gualberto hips, lt hip replacment and redone, L/R shoulder sxs, rt breast bx-benign, egd/colonoscopy, skin cancer removal L arm, Lumbar fixnation possible broken Past Anesthesia/Blood Transfusion Reactions: No Reported Reaction Additional Past Anesthesia/Blood Transfusion Reaction / Comm: Pt has been told not to have anesthesia metabolized by the kidneys and has neurologic Sjogren's with post anesthesia paralysis. Past Psychological History: No Psychological Hx Reported Smoking Status: Unknown if ever smoked Past Alcohol Use History: None Reported Past Drug Use History: None Reported - Past Family History Mother Family Medical History: CVA/TIA Additional Family Medical History / Comment(s): RUPTURED BOWEL Father Family Medical History: Cancer, Pneumonia Additional Family Medical History / Comment(s): ASPIRATIVE PNA Sister(s) Additional Family Medical History / Comment(s): at age 34 with lupus Medications and Allergies Home Medications Medication Instructions Recorded Confirmed Type Latanoprost [Xalatan 0.005%] 1 drop BOTH EYES HS@0000 08/11/17 12/22/23 History predniSONE 10 mg PO DAILY@0800 07/23/21 12/22/23 History Calcium Citrate/Vitamin D3 1 tab PO BID@0800,1800 11/16/21 12/22/23 History [Citracal + D Maximum Caplet] Digoxin [Lanoxin] 125 mcg PO Q48H 11/16/21 12/22/23 History Nitroglycerin Sl Tabs [Nitrostat] 0.4 mg SL Q5M PRN 11/16/21 12/22/23 History Adalimumab [Humira(Cf) Pen] 40 mg SQ Q14D 01/09/22 12/22/23 History Apixaban [Eliquis] 5 mg PO BID@0800,1800 05/02/22 12/22/23 History INSULIN LISPRO (HumaLOG) [humaLOG] 6 units SQ AC-TID 05/02/22 12/22/23 History INSULIN LISPRO (HumaLOG) [humaLOG] See Protocol SQ AC-TID 05/02/22 12/22/23 History Multivit-Min/FA/Lycopen/Lutein 1 tab PO DAILY@0800 05/02/22 12/22/23 History [Centrum Silver Tablet] Levothyroxine Sodium [Synthroid] 150 mcg PO HS@0000 09/02/22 12/22/23 History traZODone HCL [Desyrel] 50 mg PO HS@0000 12/15/22 12/22/23 History Tolterodine ER [Detrol LA] 4 mg PO DAILY@1200 05/15/23 12/22/23 History metFORMIN HCL [Glucophage] 500 mg PO DAILY@1800 05/25/23 12/22/23 History Acetaminophen Tab [Tylenol] 500 mg PO QID@00,06,12,11/23/23 12/22/23 History Bumetanide [BUMEX] 2 mg PO BID@0800,1800 11/23/23 12/22/23 History Cyclobenzaprine [Flexeril] 10 mg PO HS@11/23/23 12/22/23 History Gabapentin [Neurontin] 400 mg PO QID@00,06,12,11/23/23 12/22/23 History Insulin Glargine,Hum.rec.anlog 24 units SQ DAILY@179911/23/23 12/22/23 History [Lantus Solostar Pen] Insulin Glargine,Hum.rec.anlog 34 units SQ DAILY@79911/23/23 12/22/23 History [Lantus Solostar Pen] Loratadine [Claritin] 10 mg PO DAILY@0811/23/23 12/22/23 History Magnesium Oxide [Mag-Ox] 250 mg PO DAILY@0811/23/23 12/22/23 History Ondansetron Odt [Zofran ODT] 8 mg PO TID PRN 11/23/23 12/22/23 History Potassium Chloride ER [K-Dur 20] 20 meq PO BID@0800,1800 11/23/23 12/22/23 History Semaglutide [Ozempic] 0.5 mg SQ FR 11/23/23 12/22/23 History oxyCODONE-APAP 7.5-325MG [Percocet 1 tab PO QID@00,06,12,18 11/23/23 12/22/23 History 7.5-325 mg] Allergies Allergy/AdvReac Type Severity Reaction Status Date / Time adhesive Allergy Rash/Hives Verified 12/22/23 16:54 cephalexin [From Keflex] Allergy Rash/Hives Verified 12/22/23 16:54 grass pollen Allergy Unknown Verified 12/22/23 16:54 mold Allergy Unknown Verified 12/22/23 16:54 newspaper ink Allergy Mild Unknown Uncoded 12/22/23 16:54 Physical Exam Vitals: Vital Signs Temp Pulse Pulse Resp BP BP Pulse Ox 12/23/23 07:46 97.9 F 77 18 156/74 92 L 12/23/23 01:45 98.8 F 89 14 135/68 95 12/22/23 20:00 98.6 F 94 14 159/63 95 12/22/23 19:40 94 14 12/22/23 18:44 98.5 F 83 22 103/46 96 12/22/23 17:24 89 22 127/59 96 12/22/23 15:45 98.4 F 84 20 119/60 97 12/22/23 13:13 98.3 F 76 18 124/53 95 Intake and Output 12/22/23 12/23/23 12/23/23 22:59 06:59 14:59 Intake Total 1080 Balance 1080 Intake: Oral 1080 Other: Voiding Method Toilet Diaper Weight 117.934 kg GENERAL DESCRIPTION: Elderly female lying in bed, no distress. No tachypnea or accessory muscle of respiration use. HEENT: Shows Pallor , no scleral icterus. Oral mucous membrane is dry. No pharyngeal erythema or thrush NECK: Trachea central, no thyromegaly. LUNGS: Unlabored breathing. Clear to auscultation anteriorly. No wheeze or crackle. HEART: S1, S2, regular rate and rhythm. No loud murmur ABDOMEN: Soft, no tenderness , guarding or rigidity, no organomegaly EXTREMITIES: Left ankle wound with no significant slough tissue or any foul- smelling drainage SKIN: No rash, no masses palpable. NEUROLOGICAL: The patient is awake, alert, oriented x3, mood and affect normal. Results CBC & Chem 7: 12/23/23 03:59 12/23/23 03:59 Labs: Abnormal Lab Results - Last 24 Hours (Table) 12/22/23 12/22/23 12/22/23 Range/Units 13:20 13:23 13:36 RBC (4.10-5.20) X 10*6/uL Sodium 132 L (137-145) mmol/L Chloride 97 L (98-107) mmol/L BUN 25 H (7-17) mg/dL BUN/Creatinine Ratio (12.00-20.00) Ratio Glucose 407 H (74-99) mg/dL POC Glucose (mg/dL) 420 H (70-110) mg/dL Hemoglobin A1c (<=6.0) % Plasma Lactic Acid Cj (0.7-2.0) mmol/L Albumin 3.4 L (3.5-5.0) g/dL Urine Glucose (UA) 4+ H (Negative) 12/22/23 12/22/23 12/22/23 Range/Units 13:36 17:26 20:32 RBC (4.10-5.20) X 10*6/uL Sodium (137-145) mmol/L Chloride (98-107) mmol/L BUN (7-17) mg/dL BUN/Creatinine Ratio (12.00-20.00) Ratio Glucose (74-99) mg/dL POC Glucose (mg/dL) 282 H 353 H (70-110) mg/dL Hemoglobin A1c (<=6.0) % Plasma Lactic Acid Cj 2.1 H* (0.7-2.0) mmol/L Albumin (3.5-5.0) g/dL Urine Glucose (UA) (Negative) 12/23/23 12/23/23 12/23/23 Range/Units 03:59 03:59 03:59 RBC 3.90 L (4.10-5.20) X 10*6/uL Sodium (137-145) mmol/L Chloride (98-107) mmol/L BUN (7-17) mg/dL BUN/Creatinine Ratio 22.88 H (12.00-20.00) Ratio Glucose 328 H (74-99) mg/dL POC Glucose (mg/dL) (70-110) mg/dL Hemoglobin A1c 11.1 H (<=6.0) % Plasma Lactic Acid Cj (0.7-2.0) mmol/L Albumin (3.5-5.0) g/dL Urine Glucose (UA) (Negative) 12/23/23 Range/Units 07:02 RBC (4.10-5.20) X 10*6/uL Sodium (137-145) mmol/L Chloride (98-107) mmol/L BUN (7-17) mg/dL BUN/Creatinine Ratio (12.00-20.00) Ratio Glucose (74-99) mg/dL POC Glucose (mg/dL) 383 H (70-110) mg/dL Hemoglobin A1c (<=6.0) % Plasma Lactic Acid Cj (0.7-2.0) mmol/L Albumin (3.5-5.0) g/dL Urine Glucose (UA) (Negative) Assessment and Plan (1) Ankle ulcer Current Visit: Yes Status: Acute Code(s): L97.309 - NON-PRESSURE CHRONIC ULCER OF UNSP ANKLE WITH UNSP SEVERITY SNOMED Code(s): 324980223 (2) Allergy to cephalosporin Current Visit: No Status: Acute Code(s): Z88.1 - ALLERGY STATUS TO OTHER ANTIBIOTIC AGENTS SNOMED Code(s): 827938626 Plan: 1patient presented to hospital with a nonhealing wound to the left medial ankle area that she has for couple of weeks and concern from the home care nurse regarding possible infection overall wound base looks clean with no significant slough tissue minimal swelling but no foul-smelling drainage. 2patient with cephalexin allergy that will limit the number of antibiotics safe to use no history of anaphylaxis. 3local wound culture has been treated to guide further antibiotic therapy. 4we will empirically start the patient Rocephin 2 g daily and local wound care with a dry Aquacel silver dressing change q. 48-hour discussed with the nursing staff. We will follow on clinical condition and cultures to further adjust medication if needed Thank you for this consultation we will follow the patient along with you Dictation was produced using [employer] dictation software. please excuse any grammatical, word or spelling errors. Time with Patient: Greater than 30
[2023-12-24] MEDS: IBUPROFEN 400 MG TAB PO PRN (01:21)
[2023-12-24 07:37] LABS: Glucose,Whole Blood 148 mg/dL (70-110)
[2023-12-24] MEDS: PANTOPRAZOLE 40 MG TABLET PO SCH (08:21)
[2023-12-24 12:28] LABS: Glucose,Whole Blood 243 mg/dL (70-110)
--- NOTE | 2023-12-24 14:48 | P.PN ---
Subjective Progress Note Date: 12/24/23 Principal diagnosis: Reason for follow-up is left medial ankle wound Patient is a 83-year-old female with a past medical history significant for coronary disease diabetes mellitus hypertension hyperlipidemia osteoarthritis history of recurrent left lower extremity cellulitis patient apparently has developed a wound to the left medial ankle area for the patient has been advised by the home care nurse to go to the hospital for evaluation. On today's evaluation that is 12/24/2023, Patient is afebrile patient is currently on 2 L nasal oxygen and denies having any shortness of breath, the patient denies any chest pain or cough, the patient denies any nausea vomiting did not have any abdominal pain and no diarrhea denies pain to the left medial ankle wound area. No new labs were obtained today cultures are currently pending Objective - Vital Signs Vital signs: Vital Signs Temp 98.5 F 12/24/23 13:23 Pulse 64 12/24/23 13:23 Resp 17 12/24/23 13:23 BP 116/55 12/24/23 13:23 Pulse Ox 97 12/24/23 13:23 FiO2 Intake & Output 12/23/23 12/24/23 12/24/23 18:59 06:59 18:59 Intake Total 1560 1080 600 Balance 1560 1080 600 Weight 117.934 kg Intake: Oral 1560 1080 600 Other: Voiding Method Toilet Toilet Toilet Diaper Diaper External Catheter External Catheter # Voids 1 6 1 - Exam GENERAL DESCRIPTION: An elderly female lying in bed in no distress RESPIRATORY SYSTEM: Unlabored breathing , decreased breath sounds at bases HEART: S1 S2 regular rate and rhythm , ABDOMEN: Soft , no tenderness EXTREMITIES: Left medial ankle wound is currently dressed with minimal redness to the left leg - Labs CBC & Chem 7: 12/23/23 03:59 12/23/23 03:59 Labs: Abnormal Lab Results - Last 24 Hours (Table) 12/23/23 12/23/23 12/24/23 Range/Units 17:17 20:09 07:35 POC Glucose (mg/dL) 220 H 249 H 148 H (70-110) mg/dL 12/24/23 Range/Units 12:26 POC Glucose (mg/dL) 243 H (70-110) mg/dL Microbiology - Last 24 Hours (Table) 12/23/23 12:30 Gram Stain - Preliminary Ankle - Left Assessment and Plan (1) Ankle ulcer Current Visit: Yes Status: Acute Code(s): L97.309 - NON-PRESSURE CHRONIC ULCER OF UNSP ANKLE WITH UNSP SEVERITY SNOMED Code(s): 829060472 (2) Allergy to cephalosporin Current Visit: No Status: Acute Code(s): Z88.1 - ALLERGY STATUS TO OTHER ANTIBIOTIC AGENTS SNOMED Code(s): 218812236 Plan: 1patient presented to hospital with a nonhealing wound to the left medial ank le area that she has for couple of weeks and concern from the home care nurse regarding possible infection overall wound base looks clean with no significant slough tissue minimal swelling but no foul-smelling drainage. 2patient with cephalexin allergy that will limit the number of antibiotics safe to use no history of anaphylaxis. 3local wound culture has been obtained which are currently pending 4patient to continue with Rocephin 2 g daily and local wound care with a dry Aquacel silver dressing change q. 48-hour while waiting for the culture to finalize Dictation was produced using [employer] dictation software. please excuse any grammatical, word or spelling errors. Time with Patient: Less than 30
--- NOTE | 2023-12-24 16:48 | P.PN ---
Subjective Progress Note Date: 12/23/23 83-year-old female, history of hypertension, hyperlipidemia, diabetes mellitus, atrial fibrillation, CAD, rheumatoid arthritis, hypothyroidism, presenting to the emergency department from home. Patient did have her visiting nurse come out today and was advised to have her wound checked. Visiting nurse was also concerned about her blood sugar over 400 and her ability to take care of herself at home. She does request patient be admitted for placement. Patient feels she is not able to take care of herself at home and agrees that she needs placement; patient herself is not able to give much history Workup in ED including a chest x-ray reveals nonspecific increased interstitial changes --Ankle x-ray shows mild soft tissue swelling and old fracture Blood work reveals WBC of 7.6, hemoglobin of 12.7 and platelet count of 189, sodium 132, potassium/creatinine 0.5/0.62 and blood glucose of 407; lactic acid 2.1 Objective - Vital Signs Vital signs: Vital Signs Temp 97.9 F 12/23/23 07:46 Pulse 77 12/23/23 07:46 Resp 18 12/23/23 07:46 BP 156/74 12/23/23 07:46 Pulse Ox 92 L 12/23/23 07:46 FiO2 Intake & Output 12/22/23 12/23/23 12/23/23 18:59 06:59 18:59 Intake Total 1080 Balance 1080 Weight 117.934 kg 117.934 kg Intake: Oral 1080 Other: Voiding Method Toilet Diaper - Exam Head exam: Present: normocephalic Eye exam: Present: normal appearance ENT exam: Present: normal oropharynx Neck exam: Present: normal inspection Respiratory exam: Present: normal lung sounds bilaterally Cardiovascular Exam: Present: regular rate, normal rhythm GI/Abdominal exam: Present: soft. Absent: tenderness Extremities exam: Present: normal inspection Neurological exam: Present: alert Psychiatric exam: Present: normal affect, normal mood Skin exam: Present: other (Stage II/III ulcer approximately 2 cm left medial malleolus ) - Labs CBC & Chem 7: 12/23/23 03:59 12/23/23 03:59 Labs: Abnormal Lab Results - Last 24 Hours (Table) 12/22/23 12/22/23 12/22/23 Range/Units 13:20 13:23 13:36 RBC (4.10-5.20) X 10*6/uL Sodium 132 L (137-145) mmol/L Chloride 97 L (98-107) mmol/L BUN 25 H (7-17) mg/dL BUN/Creatinine Ratio (12.00-20.00) Ratio Glucose 407 H (74-99) mg/dL POC Glucose (mg/dL) 420 H (70-110) mg/dL Hemoglobin A1c (<=6.0) % Plasma Lactic Acid Cj (0.7-2.0) mmol/L Albumin 3.4 L (3.5-5.0) g/dL Urine Glucose (UA) 4+ H (Negative) 12/22/23 12/22/23 12/22/23 Range/Units 13:36 17:26 20:32 RBC (4.10-5.20) X 10*6/uL Sodium (137-145) mmol/L Chloride (98-107) mmol/L BUN (7-17) mg/dL BUN/Creatinine Ratio (12.00-20.00) Ratio Glucose (74-99) mg/dL POC Glucose (mg/dL) 282 H 353 H (70-110) mg/dL Hemoglobin A1c (<=6.0) % Plasma Lactic Acid Cj 2.1 H* (0.7-2.0) mmol/L Albumin (3.5-5.0) g/dL Urine Glucose (UA) (Negative) 12/23/23 12/23/23 12/23/23 Range/Units 03:59 03:59 03:59 RBC 3.90 L (4.10-5.20) X 10*6/uL Sodium (137-145) mmol/L Chloride (98-107) mmol/L BUN (7-17) mg/dL BUN/Creatinine Ratio 22.88 H (12.00-20.00) Ratio Glucose 328 H (74-99) mg/dL POC Glucose (mg/dL) (70-110) mg/dL Hemoglobin A1c 11.1 H (<=6.0) % Plasma Lactic Acid Cj (0.7-2.0) mmol/L Albumin (3.5-5.0) g/dL Urine Glucose (UA) (Negative) 12/23/23 Range/Units 07:02 RBC (4.10-5.20) X 10*6/uL Sodium (137-145) mmol/L Chloride (98-107) mmol/L BUN (7-17) mg/dL BUN/Creatinine Ratio (12.00-20.00) Ratio Glucose (74-99) mg/dL POC Glucose (mg/dL) 383 H (70-110) mg/dL Hemoglobin A1c (<=6.0) % Plasma Lactic Acid Cj (0.7-2.0) mmol/L Albumin (3.5-5.0) g/dL Urine Glucose (UA) (Negative) Assessment and Plan Assessment: 1. Hyperglycemia without acidosis; uncontrolled diabetes mellitus 2. Mild ASYA; BUN is slightly elevated at 25 with normal creatinine; patient advised increased fluid oral intake 3. Ankle ulcer; failing outpatient management; will consult wound care; start patient on empiric IV antibiotics; consult ID 4. Generalized weakness/debility; patient unable to care for self at home; we will consult PT/OT 5. Diabetes mellitus with long-term insulin use; patient takes Lantus 24 units nightly and 34 units in the morning along with Humalog 6 units before every meal; metformin 500 mg daily and Ozempic 0.5 mg weekly; we will continue home regimen and add sliding scale 6. Atrial fibrillation; patient is rate controlled on digoxin 125 mcg every 48 hours along with anticoagulation with Eliquis 7. Hypothyroidism; levothyroxine 150 mcg daily 8. Rheumatoid arthritis; continue home medications; patient also takes Humira 40 mg subcu q. 14 days; prednisone 10 mg daily; Flexeril 10 mg p.o. nightly; Neurontin 400 mg 4 times daily and oxycodone 7.5 mg DVT prophylaxis; SCDs/Eliquis CODE STATUS; full code
--- NOTE | 2023-12-24 16:49 | P.PN ---
Subjective Progress Note Date: 12/24/23 83-year-old female, history of hypertension, hyperlipidemia, diabetes mellitus, atrial fibrillation, CAD, rheumatoid arthritis, hypothyroidism, presenting to the emergency department from home. Patient did have her visiting nurse come out today and was advised to have her wound checked. Visiting nurse was also concerned about her blood sugar over 400 and her ability to take care of herself at home. She does request patient be admitted for placement. Patient feels she is not able to take care of herself at home and agrees that she needs placement; patient herself is not able to give much history Workup in ED including a chest x-ray reveals nonspecific increased interstitial changes --Ankle x-ray shows mild soft tissue swelling and old fracture Blood work reveals WBC of 7.6, hemoglobin of 12.7 and platelet count of 189, sodium 132, potassium/creatinine 0.5/0.62 and blood glucose of 407; lactic acid 2.1 12/24/2023 --Patient is afebrile patient is currently on 2 L nasal oxygen and denies having any shortness of breath, the patient denies any chest pain or cough, the patient denies any nausea vomiting did not have any abdominal pain and no diarrhea denies pain to the left medial ankle wound area. patient presented to hospital with a nonhealing wound to the left medial ankle area that she has for couple of weeks and concern from the home care nurse regarding possible infection overall wound base looks clean with no significant slough tissue minimal swelling but no foul-smelling drainage. patient with cephalexin allergy that will limit the number of antibiotics safe to use no history of anaphylaxis. local wound culture has been obtained which are currently pending patient to continue with Rocephin 2 g daily and local wound care with a dry Aquacel silver dressing change q. 48-hour while waiting for the culture to finalize Patient will require ECF placement upon discharge Objective - Vital Signs Vital signs: Vital Signs Temp 98.1 F 12/24/23 07:12 Pulse 70 12/24/23 08:40 Resp 18 12/24/23 08:40 BP 153/73 12/24/23 07:12 Pulse Ox 98 12/24/23 07:12 FiO2 Intake & Output 12/23/23 12/24/23 12/24/23 18:59 06:59 18:59 Intake Total 1560 1080 420 Balance 1560 1080 420 Weight 117.934 kg Intake: Oral 1560 1080 420 Other: Voiding Method Toilet Toilet Toilet Diaper Diaper External Catheter External Catheter # Voids 1 6 1 - Exam Head exam: Present: normocephalic Eye exam: Present: normal appearance ENT exam: Present: normal oropharynx Neck exam: Present: normal inspection Respiratory exam: Present: normal lung sounds bilaterally Cardiovascular Exam: Present: regular rate, normal rhythm GI/Abdominal exam: Present: soft. Absent: tenderness Extremities exam: Present: normal inspection Neurological exam: Present: alert Psychiatric exam: Present: normal affect, normal mood Skin exam: Present: other (Stage II/III ulcer approximately 2 cm left medial malleolus ) - Labs CBC & Chem 7: 12/23/23 03:59 12/23/23 03:59 Labs: Abnormal Lab Results - Last 24 Hours (Table) 12/23/23 12/23/23 12/23/23 Range/Units 12:32 17:17 20:09 POC Glucose (mg/dL) 230 H 220 H 249 H (70-110) mg/dL 12/24/23 Range/Units 07:35 POC Glucose (mg/dL) 148 H (70-110) mg/dL Assessment and Plan Assessment: 1. Hyperglycemia without acidosis; uncontrolled diabetes mellitus 2. Mild ASYA; BUN is slightly elevated at 25 with normal creatinine; patient advised increased fluid oral intake 3. Ankle ulcer; failing outpatient management; will consult wound care; start patient on empiric IV antibiotics; consult ID 4. Generalized weakness/debility; patient unable to care for self at home; we will consult PT/OT 5. Diabetes mellitus with long-term insulin use; patient takes Lantus 24 units nightly and 34 units in the morning along with Humalog 6 units before every meal; metformin 500 mg daily and Ozempic 0.5 mg weekly; we will continue home regimen and add sliding scale 6. Atrial fibrillation; patient is rate controlled on digoxin 125 mcg every 48 hours along with anticoagulation with Eliquis 7. Hypothyroidism; levothyroxine 150 mcg daily 8. Rheumatoid arthritis; continue home medications; patient also takes Humira 40 mg subcu q. 14 days; prednisone 10 mg daily; Flexeril 10 mg p.o. nightly; Neurontin 400 mg 4 times daily and oxycodone 7.5 mg DVT prophylaxis; SCDs/Eliquis CODE STATUS; full code
[2023-12-24 16:58] LABS: Glucose,Whole Blood 287 mg/dL (70-110)
[2023-12-24 20:02] LABS: Glucose,Whole Blood 333 mg/dL (70-110)
[2023-12-25 07:26] LABS: Glucose,Whole Blood 216 mg/dL (70-110)
[2023-12-25 08:36] LABS: Basophils # (A) 0.04 X 10*3/uL (0.00-0.10); Basophils % (A) 0.5 %; Eosinophils % (A) 4.1 %; HCT 36.5 % (37.2-46.3); HGB 12.2 g/dL (12.0-15.0); Lymphocytes % (A) 38.5 %; MCH 32.4 pg (27.0-32.0); MCHC 33.4 g/dL (32.0-37.0); MCV 97.1 FL (80.0-97.0); Mean Platelet Volume 11.1 FL (9.5-12.2); Monocytes # (A) 0.69 X 10*3/uL (0.20-1.00); Monocytes % (A) 9.5 %; NRBC Per 100 WBC 0 X 10*3/uL (0.00-0.01); Neutrophils # (A) 3.41 X 10*3/uL (1.80-7.70); Neutrophils % (A) 46.9 %; Platelet Count 179 X 10*3/uL (140-440); RBC 3.76 X 10*6/uL (4.10-5.20); RDW 13.6 % (11.5-14.5); WBC 7.28 X 10*3/uL (4.50-10.00)
--- NOTE | 2023-12-25 08:46 | P.DS ---
Providers Date of admission: 12/22/23 15:07 Attending physician: Nicholas Hart Consults: 12/22/23 22:01 Consult Physician Routine Consulting Provider: Tg Butts Consult Reason/Comments: Ankle wound Do you want consulting provider notified?: Yes, Notify in am Primary care physician: Nicholas Hart - Discharge Diagnosis(es) (1) Ankle ulcer Current Visit: Yes Status: Acute (2) Generalized weakness Current Visit: Yes Status: Acute (3) Atrial fibrillation Current Visit: No Status: Acute (4) CAD (coronary artery disease) Current Visit: No Status: Acute (5) Chronic pain Current Visit: No Status: Acute (6) Diabetes Current Visit: No Status: Acute (7) History of lumbar fusion Current Visit: No Status: Acute (8) Hyperlipidemia Current Visit: No Status: Acute (9) Hypertension Current Visit: No Status: Acute (10) Hypothyroidism Current Visit: No Status: Acute (11) Inability to perform activities of daily living Current Visit: No Status: Acute (12) Increased weakness when ambulating Current Visit: No Status: Acute Hospital Course: This is an 83-year-old female who presented to the emergency department after her home care nurse advised her to have her wound checked. Patient's blood sugars have also been elevated at home, in the 400s. Patient had been living alone due to her being admitted to this hospital. Her was her primary caregiver before he became ill. Patient has not been able to take care of her herself even with family checking in and home care ordered. Patient's wound is just to the left medial ankle and wound culture was positive for presumptive MRSA. Infectious disease will need to recommend discharge antibiotics. Patient will be discharged to rehab when placement is available. Please check with infectious disease about antibiotics for discharge. Patient seen and evaluated by nurse practitioner, physician in agreement with plan. Patient Condition at Discharge: Stable Plan - Discharge Summary Discharge Rx Participant: Yes New Discharge Prescriptions: Continue Latanoprost [Xalatan 0.005%] 1 drop BOTH EYES HS@0000 Calcium Citrate/Vitamin D3 [Citracal + D Maximum Caplet] 1 tab PO BID@0800,1800 Adalimumab [Humira(Cf) Pen] 40 mg SQ Q14D INSULIN LISPRO (HumaLOG) [humaLOG] 6 units SQ AC-TID Levothyroxine Sodium [Synthroid] 150 mcg PO HS@0000 traZODone HCL [Desyrel] 50 mg PO HS@0000 metFORMIN HCL [Glucophage] 500 mg PO DAILY@1800 Insulin Glargine,Hum.rec.anlog [Lantus Solostar Pen] 24 units SQ DAILY@1800 Gabapentin [Neurontin] 400 mg PO QID@00,06,,18 Bumetanide [BUMEX] 2 mg PO BID@0800,1800 Acetaminophen Tab [Tylenol] 500 mg PO QID@00,06,,18 oxyCODONE-APAP 7.5-325MG [Percocet 7.5-325 mg] 1 tab PO QID@00,06,12,18 30 Days #120 tab predniSONE 10 mg PO DAILY@0800 Nitroglycerin Sl Tabs [Nitrostat] 0.4 mg SL Q5M PRN PRN Reason: Chest Pain Digoxin [Lanoxin] 125 mcg PO Q48H INSULIN LISPRO (HumaLOG) [humaLOG] See Protocol SQ AC-TID Multivit-Min/FA/Lycopen/Lutein [Centrum Silver Tablet] 1 tab PO DAILY@0800 Apixaban [Eliquis] 5 mg PO BID@0800,1800 Tolterodine ER [Detrol LA] 4 mg PO DAILY@1200 Ondansetron Odt [Zofran ODT] 8 mg PO TID PRN PRN Reason: Nausea Insulin Glargine,Hum.rec.anlog [Lantus Solostar Pen] 34 units SQ DAILY@0800 Semaglutide [Ozempic] 0.5 mg SQ FR Cyclobenzaprine [Flexeril] 10 mg PO HS@0000 Potassium Chloride ER [K-Dur 20] 20 meq PO BID@0800,1800 Magnesium Oxide [Mag-Ox] 250 mg PO DAILY@0800 Loratadine [Claritin] 10 mg PO DAILY@0800 Discharge Medication List Latanoprost [Xalatan 0.005%] 1 drop BOTH EYES HS@0000 08/11/17 [History] predniSONE 10 mg PO DAILY@0800 07/23/21 [History] Calcium Citrate/Vitamin D3 [Citracal + D Maximum Caplet] 1 tab PO BID@0800,1800 11/16/21 [History] Digoxin [Lanoxin] 125 mcg PO Q48H 11/16/21 [History] Nitroglycerin Sl Tabs [Nitrostat] 0.4 mg SL Q5M PRN 11/16/21 [History] Adalimumab [Humira(Cf) Pen] 40 mg SQ Q14D 01/09/22 [History] Apixaban [Eliquis] 5 mg PO BID@0800,1800 05/02/22 [History] INSULIN LISPRO (HumaLOG) [humaLOG] 6 units SQ AC-TID 05/02/22 [History] INSULIN LISPRO (HumaLOG) [humaLOG] See Protocol SQ AC-TID 05/02/22 [History] Multivit-Min/FA/Lycopen/Lutein [Centrum Silver Tablet] 1 tab PO DAILY@0800 05/02/22 [History] Levothyroxine Sodium [Synthroid] 150 mcg PO HS@0000 09/02/22 [History] traZODone HCL [Desyrel] 50 mg PO HS@0000 12/15/22 [History] Tolterodine ER [Detrol LA] 4 mg PO DAILY@1200 05/15/23 [History] metFORMIN HCL [Glucophage] 500 mg PO DAILY@1800 05/25/23 [History] Acetaminophen Tab [Tylenol] 500 mg PO QID@00,06,12,18 11/23/23 [History] Bumetanide [BUMEX] 2 mg PO BID@0800,1800 11/23/23 [History] Cyclobenzaprine [Flexeril] 10 mg PO HS@0000 11/23/23 [History] Gabapentin [Neurontin] 400 mg PO QID@00,06,12,18 11/23/23 [History] Insulin Glargine,Hum.rec.anlog [Lantus Solostar Pen] 24 units SQ DAILY@1800 [History] Insulin Glargine,Hum.rec.anlog [Lantus Solostar Pen] 34 units SQ DAILY@0811/23/23 [History] Loratadine [Claritin] 10 mg PO DAILY@0811/23/23 [History] Magnesium Oxide [Mag-Ox] 250 mg PO DAILY@0811/23/23 [History] Ondansetron Odt [Zofran ODT] 8 mg PO TID PRN 11/23/23 [History] Potassium Chloride ER [K-Dur 20] 20 meq PO BID@0800,1800 11/23/23 [History] Semaglutide [Ozempic] 0.5 mg SQ FR 11/23/23 [History] oxyCODONE-APAP 7.5-325MG [Percocet 7.5-325 mg] 1 tab PO QID@00,06,12,18 30 Days #120 tab 12/25/23 [Rx] Follow up Appointment(s)/Referral(s): Nicholas Hart MD [Primary Care Provider] - 1-2 days Discharge Disposition: TRANSFER TO SNF/ECF
[2023-12-25 08:47] LABS: BUN/Creat Ratio 29.44 Ratio (12.00-20.00); Blood Urea Nitrogen 26.5 mg/dL (9.0-27.0); Chloride 98 mmol/L (96-109); Glucose 238 mg/dL (70-110); Potassium 3.9 mmol/L (3.5-5.5); Sodium 137 mmol/L (135-145)
[2023-12-25 12:05] LABS: Glucose,Whole Blood 255 mg/dL (70-110)
[2023-12-25] MEDS ORDERED: VANCOMYCIN IV PER PHARMACY 1 EACH MISC MISCELLANE PRN (12:47)
[2023-12-25] MEDS: VANCOMYCIN 1,750 MG in SODIUM CHLORIDE 0.9% 500 ML 500 ML IVPB ONE (16:08)
[2023-12-25 16:57] LABS: Glucose,Whole Blood 333 mg/dL (70-110)
[2023-12-25 20:26] LABS: Glucose,Whole Blood 272 mg/dL (70-110)
--- NOTE | 2023-12-25 22:24 | P.PN ---
Subjective Progress Note Date: 12/25/23 Principal diagnosis: Reason for follow-up is left medial ankle wound Patient is a 83-year-old female with a past medical history significant for coronary disease diabetes mellitus hypertension hyperlipidemia osteoarthritis history of recurrent left lower extremity cellulitis patient apparently has developed a wound to the left medial ankle area for the patient has been advised by the home care nurse to go to the hospital for evaluation. On today's evaluation that is 12/25/2023, patient has been afebrile, patient is breathing comfortably and is currently on room air, patient denies having any significant cough no chest pain, patient denies nausea vomiting or diarrhea and no abdominal pain patient denies pain to the left medial ankle wound area. No new lab has been obtained today culture currently growing presumptive MRSA Objective - Vital Signs Vital signs: Vital Signs Temp 98.0 F 12/25/23 12:09 Pulse 65 12/25/23 12:09 Resp 16 12/25/23 12:09 BP 133/71 12/25/23 12:09 Pulse Ox 97 12/25/23 12:09 FiO2 Intake & Output 12/24/23 12/25/23 12/25/23 18:59 06:59 18:59 Intake Total 1140 590 Balance 1140 590 Intake: Oral 1140 590 Other: Voiding Method Toilet Toilet Toilet External Catheter Diaper Diaper # Voids 5 4 3 - Exam GENERAL DESCRIPTION: An elderly female lying in bed in no distress RESPIRATORY SYSTEM: Unlabored breathing , decreased breath sounds at bases HEART: S1 S2 regular rate and rhythm , ABDOMEN: Soft , no tenderness EXTREMITIES: Left medial ankle wound is currently dressed with minimal redness to the left leg - Labs CBC & Chem 7: 12/25/23 06:05 12/25/23 06:05 Labs: Abnormal Lab Results - Last 24 Hours (Table) 12/24/23 12/24/23 12/25/23 Range/Units 16:57 20:01 06:05 RBC 3.76 L (4.10-5.20) X 10*6/uL Hct 36.5 L (37.2-46.3) % MCV 97.1 H (80.0-97.0) FL MCH 32.4 H (27.0-32.0) pg BUN/Creatinine Ratio (12.00-20.00) Ratio Glucose (70-110) mg/dL POC Glucose (mg/dL) 287 H 333 H (70-110) mg/dL 12/25/23 12/25/23 12/25/23 Range/Units 06:05 07:22 12:03 RBC (4.10-5.20) X 10*6/uL Hct (37.2-46.3) % MCV (80.0-97.0) FL MCH (27.0-32.0) pg BUN/Creatinine Ratio 29.44 H (12.00-20.00) Ratio Glucose 238 H (70-110) mg/dL POC Glucose (mg/dL) 216 H 255 H (70-110) mg/dL Microbiology - Last 24 Hours (Table) 12/23/23 12:30 Gram Stain - Preliminary Ankle - Left Wound Culture - Preliminary Presumptive MRSA Assessment and Plan (1) Ankle ulcer Current Visit: Yes Status: Acute Code(s): L97.309 - NON-PRESSURE CHRONIC ULCER OF UNSP ANKLE WITH UNSP SEVERITY SNOMED Code(s): 991470795 (2) Allergy to cephalosporin Current Visit: No Status: Acute Code(s): Z88.1 - ALLERGY STATUS TO OTHER ANTIBIOTIC AGENTS SNOMED Code(s): 489942188 Plan: 1patient presented to hospital with a nonhealing wound to the left medial ankle area that she has for couple of weeks and concern from the home care nurse regarding possible infection overall wound base looks clean with no significant slough tissue minimal swelling but no foul-smelling drainage. 2patient with cephalexin allergy that will limit the number of antibiotics safe to use no history of anaphylaxis. 3local wound culture currently growing present to MRSA 4I will discontinue Rocephin start patient vancomycin pharmacy to dose with the discharge antibiotics once sensitivities are finalized Dictation was produced using [employer] dictation software. please excuse any grammatical, word or spelling errors. Time with Patient: Less than 30
[2023-12-26] MEDS: VANCOMYCIN 1,750 MG in SODIUM CHLORIDE 0.9% 500 ML 500 ML IVPB SCH (02:59)
[2023-12-26 08:03] LABS: Glucose,Whole Blood 238 mg/dL (70-110)
--- NOTE | 2023-12-26 09:02 | P.PN ---
Subjective Progress Note Date: 12/26/23 This is an 83-year-old female who presented to the emergency department after her home care nurse advised her to have her wound checked. Patient's blood sugars have also been elevated at home, in the 400s. Patient had been living alone due to her being admitted to this hospital. Her was her primary caregiver before he became ill. Patient has not been able to take care of her herself even with family checking in and home care ordered. Patient's wound is just to the left medial ankle and wound culture was positive for presumptive MRSA. 12/26/2023 Patient seen and evaluated laying in bed this morning. Still waiting on cultures to be finalized for leg wound, however is positive for presumptive MRSA. Patient's still remains hospitalized and his prognosis is poor. Patient wanting to go home however home care nurses and visiting physicians feel patient was not safe at home. Objective - Vital Signs Vital signs: Vital Signs Temp 97.8 F 12/26/23 08:00 Pulse 61 12/26/23 08:00 Resp 16 12/26/23 08:00 BP 166/81 12/26/23 08:00 Pulse Ox 97 12/26/23 08:00 FiO2 Intake & Output 12/25/23 12/26/23 12/26/23 18:59 06:59 18:59 Intake Total 500 120 Balance 500 120 Intake: Intake, IV Titration 500 Amount Vancomycin 1,750 mg In 500 Sodium Chloride 0.9% 500 ml 500 ml @ 167 mls/hr IVPB Q16H [facility] Rx#: [id number] Oral 120 Other: Voiding Method Toilet Bedside Commode Diaper Diaper # Voids 1 4 - Constitutional General appearance: Present: cooperative, no acute distress - EENT Eyes: Present: PERRLA - Neck Neck: Present: normal ROM. Absent: lymphadenopathy, rigidity - Respiratory Respiratory: bilateral: CTA - Cardiovascular Heart sounds: normal: S1, S2 - Gastrointestinal General gastrointestinal: Present: soft. Absent: tenderness - Integumentary Integumentary Comment(s): dry and intact bandage to left ankle Integumentary: Present: normal, normal turgor - Musculoskeletal Musculoskeletal: Present: generalized weakness - Psychiatric Psychiatric: Present: A&O x's 3 - Labs CBC & Chem 7: 12/25/23 06:05 12/25/23 06:05 Labs: Abnormal Lab Results - Last 24 Hours (Table) 12/25/23 12/25/23 12/25/23 Range/Units 12:03 16:54 20:22 POC Glucose (mg/dL) 255 H 333 H 272 H (70-110) mg/dL 12/26/23 Range/Units 08:01 POC Glucose (mg/dL) 238 H (70-110) mg/dL Microbiology - Last 24 Hours (Table) 12/23/23 12:30 Anaerobic Culture - Preliminary Ankle - Left Assessment and Plan (1) Ankle ulcer Current Visit: Yes Status: Acute Code(s): L97.309 - NON-PRESSURE CHRONIC ULCER OF UNSP ANKLE WITH UNSP SEVERITY SNOMED Code(s): 708579212 (2) Generalized weakness Current Visit: Yes Status: Acute Code(s): R53.1 - WEAKNESS SNOMED Code(s): 65302834 (3) Atrial fibrillation Current Visit: No Status: Acute Code(s): I48.91 - UNSPECIFIED ATRIAL FIBRILLATION SNOMED Code(s): 61956387 (4) CAD (coronary artery disease) Current Visit: No Status: Acute Code(s): I25.10 - ATHSCL HEART DISEASE OF [place] CORONARY ARTERY W/O ANG PCTRS SNOMED Code(s): 90414386 (5) Chronic pain Current Visit: No Status: Acute Code(s): G89.29 - OTHER CHRONIC PAIN SNOMED Code(s): 56287581 (6) Diabetes Current Visit: No Status: Acute Code(s): E11.9 - TYPE 2 DIABETES MELLITUS WITHOUT COMPLICATIONS SNOMED Code(s): 87875350 (7) History of lumbar fusion Current Visit: No Status: Acute Code(s): Z98.1 - ARTHRODESIS STATUS SNOMED Code(s): 50004162376912 (8) Hyperlipidemia Current Visit: No Status: Acute Code(s): E78.5 - HYPERLIPIDEMIA, UNSPECIFIED SNOMED Code(s): 36281769 (9) Hypertension Current Visit: No Status: Acute Code(s): I10 - ESSENTIAL (PRIMARY) HYPERTENSION SNOMED Code(s): 73063939 (10) Hypothyroidism Current Visit: No Status: Acute Code(s): E03.9 - HYPOTHYROIDISM, UNSPECIFIED SNOMED Code(s): 89483477 (11) Inability to perform activities of daily living Current Visit: No Status: Acute Code(s): Z78.9 - OTHER SPECIFIED HEALTH STATUS SNOMED Code(s): 790815396 (12) Increased weakness when ambulating Current Visit: No Status: Acute Code(s): R53.1 - WEAKNESS SNOMED Code(s): 801179232 Plan: Await recommendations for possible placement for patient. Await discharge antibiotics from infectious disease. Patient seen and evaluated by nurse practitioner, physician in agreement with plan.
[2023-12-26 12:13] LABS: Glucose,Whole Blood 237 mg/dL (70-110)
--- NOTE | 2023-12-26 14:34 | P.PN ---
Subjective Progress Note Date: 12/26/23 Principal diagnosis: Reason for follow-up is left medial ankle wound Patient is a 83-year-old female with a past medical history significant for coronary disease diabetes mellitus hypertension hyperlipidemia osteoarthritis history of recurrent left lower extremity cellulitis patient apparently has developed a wound to the left medial ankle area for the patient has been advised by the home care nurse to go to the hospital for evaluation. On today's evaluation that is 12/26/2023, Patient is afebrile this morning patient denies having any chest pain shortness of breath or cough, the patient is currently on room air, patient denies any abdominal pain no diarrhea no nausea no vomiting denies pain to the left medial ankle wound area patient wanted to go home as she had to take care of stop. No new lab has been obtained today culture with presumptive MRSA with sen sitivities pending Objective - Vital Signs Vital signs: Vital Signs Temp 97.8 F 12/26/23 08:00 Pulse 61 12/26/23 08:00 Resp 16 12/26/23 08:00 BP 166/81 12/26/23 08:00 Pulse Ox 97 12/26/23 08:00 FiO2 Intake & Output 12/25/23 12/26/23 12/26/23 18:59 06:59 18:59 Intake Total 500 120 Balance 500 120 Weight 117.934 kg Intake: Intake, IV Titration 500 Amount Vancomycin 1,750 mg In 500 Sodium Chloride 0.9% 500 ml 500 ml @ 167 mls/hr IVPB Q16H [facility] Rx#: [id number] Oral 120 Other: Voiding Method Toilet Bedside Commode Bedside Commode Diaper Diaper Diaper # Voids 1 4 - Labs CBC & Chem 7: 12/25/23 06:05 12/25/23 06:05 Labs: Abnormal Lab Results - Last 24 Hours (Table) 12/25/23 12/25/23 12/25/23 Range/Units 12:03 16:54 20:22 POC Glucose (mg/dL) 255 H 333 H 272 H (70-110) mg/dL 12/26/23 Range/Units 08:01 POC Glucose (mg/dL) 238 H (70-110) mg/dL Microbiology - Last 24 Hours (Table) 12/23/23 12:30 Anaerobic Culture - Preliminary Ankle - Left Assessment and Plan (1) Ankle ulcer Current Visit: Yes Status: Acute Code(s): L97.309 - NON-PRESSURE CHRONIC ULC ER OF UNSP ANKLE WITH UNSP SEVERITY SNOMED Code(s): 165364769 (2) Allergy to cephalosporin Current Visit: No Status: Acute Code(s): Z88.1 - ALLERGY STATUS TO OTHER ANTIBIOTIC AGENTS SNOMED Code(s): 535523307 Plan: 1patient presented to hospital with a nonhealing wound to the left medial ankle area that she has for couple of weeks and concern from the home care nurse regarding possible infection overall wound base looks clean with no significant slough tissue minimal swelling but no foul-smelling drainage. 2patient with cephalexin allergy that will limit the number of antibiotics safe to use no history of anaphylaxis. 3local wound culture currently growing presumptive MRSA 4patient to continue with vancomycin , nursing staff has been advised to call the micro lab to get the sensitivity on MRSA so we can discharge on oral antibiotic Dictation was produced using [employer] dictation software. please excuse any grammatical, word or spelling errors. Time with Patient: Less than 30
[2023-12-26 17:07] LABS: Glucose,Whole Blood 285 mg/dL (70-110)
[2023-12-26 20:21] LABS: Glucose,Whole Blood 246 mg/dL (70-110)
[2023-12-27 05:59] LABS: African American GFR (CKD) 88 (>60 ml/min/1.73 sqM); Non-African American GFR(CKD) 76 (>60 ml/min/1.73 sqM)
[2023-12-27 07:16] LABS: Glucose,Whole Blood 110 mg/dL (70-110)
--- NOTE | 2023-12-27 08:51 | P.DS ---
Providers Date of admission: 12/26/23 09:59 Attending physician: Nicholas Hart Consults: 12/22/23 22:01 Consult Physician Routine Consulting Provider: Tg Butts Consult Reason/Comments: Ankle wound Do you want consulting provider notified?: Yes, Notify in am Primary care physician: Nicohlas Hart - Discharge Diagnosis(es) (1) Ankle ulcer Current Visit: Yes Status: Acute (2) Generalized weakness Current Visit: Yes Status: Acute (3) Atrial fibrillation Current Visit: No Status: Acute (4) CAD (coronary artery disease) Current Visit: No Status: Acute (5) Diabetes Current Visit: No Status: Acute Patient Condition at Discharge: Stable Plan - Discharge Summary Discharge Rx Participant: Yes New Discharge Prescriptions: New Doxycycline Hyclate 100 mg PO BID 10 Days #20 tab Continue Latanoprost [Xalatan 0.005%] 1 drop BOTH EYES HS@0000 Calcium Citrate/Vitamin D3 [Citracal + D Maximum Caplet] 1 tab PO BID@0800,1800 Adalimumab [Humira(Cf) Pen] 40 mg SQ Q14D INSULIN LISPRO (HumaLOG) [humaLOG] 6 units SQ AC-TID Levothyroxine Sodium [Synthroid] 150 mcg PO HS@0000 traZODone HCL [Desyrel] 50 mg PO HS@0000 metFORMIN HCL [Glucophage] 500 mg PO DAILY@1800 Insulin Glargine,Hum.rec.anlog [Lantus Solostar Pen] 24 units SQ DAILY@1800 Gabapentin [Neurontin] 400 mg PO QID@00,06,12,18 Bumetanide [BUMEX] 2 mg PO BID@0800,1800 Acetaminophen Tab [Tylenol] 500 mg PO QID@00,06,12,18 oxyCODONE-APAP 7.5-325MG [Percocet 7.5-325 mg] 1 tab PO QID@00,06,12,18 30 Days #120 tab predniSONE 10 mg PO DAILY@0800 Nitroglycerin Sl Tabs [Nitrostat] 0.4 mg SL Q5M PRN PRN Reason: Chest Pain Digoxin [Lanoxin] 125 mcg PO Q48H INSULIN LISPRO (HumaLOG) [humaLOG] See Protocol SQ AC-TID Multivit-Min/FA/Lycopen/Lutein [Centrum Silver Tablet] 1 tab PO DAILY@0800 Apixaban [Eliquis] 5 mg PO BID@0800,1800 Tolterodine ER [Detrol LA] 4 mg PO DAILY@1200 Ondansetron Odt [Zofran ODT] 8 mg PO TID PRN PRN Reason: Nausea Insulin Glargine,Hum.rec.anlog [Lantus Solostar Pen] 34 units SQ DAILY@0800 Semaglutide [Ozempic] 0.5 mg SQ FR Cyclobenzaprine [Flexeril] 10 mg PO HS@0000 Potassium Chloride ER [K-Dur 20] 20 meq PO BID@0800,1800 Magnesium Oxide [Mag-Ox] 250 mg PO DAILY@0800 Loratadine [Claritin] 10 mg PO DAILY@0800 Discharge Medication List Latanoprost [Xalatan 0.005%] 1 drop BOTH EYES HS@0000 08/11/17 [History] predniSONE 10 mg PO DAILY@0800 07/23/21 [History] Calcium Citrate/Vitamin D3 [Citracal + D Maximum Caplet] 1 tab PO BID@0800,1800 11/16/21 [History] Digoxin [Lanoxin] 125 mcg PO Q48H 11/16/21 [History] Nitroglycerin Sl Tabs [Nitrostat] 0.4 mg SL Q5M PRN 11/16/21 [History] Adalimumab [Humira(Cf) Pen] 40 mg SQ Q14D 01/09/22 [History] Apixaban [Eliquis] 5 mg PO BID@0800,1800 05/02/22 [History] INSULIN LISPRO (HumaLOG) [humaLOG] 6 units SQ AC-TID 05/02/22 [History] INSULIN LISPRO (HumaLOG) [humaLOG] See Protocol SQ AC-TID 05/02/22 [History] Multivit-Min/FA/Lycopen/Lutein [Centrum Silver Tablet] 1 tab PO DAILY@0800 05/02/22 [History] Levothyroxine Sodium [Synthroid] 150 mcg PO HS@0000 09/02/22 [History] traZODone HCL [Desyrel] 50 mg PO HS@0000 12/15/22 [History] Tolterodine ER [Detrol LA] 4 mg PO DAILY@1200 05/15/23 [History] metFORMIN HCL [Glucophage] 500 mg PO DAILY@1800 05/25/23 [History] Acetaminophen Tab [Tylenol] 500 mg PO QID@00,06,12,18 11/23/23 [History] Bumetanide [BUMEX] 2 mg PO BID@0800,179911/23/23 [History] Cyclobenzaprine [Flexeril] 10 mg PO HS@0000 11/23/23 [History] Gabapentin [Neurontin] 400 mg PO QID@00,06,12,18 11/23/23 [History] Insulin Glargine,Hum.rec.anlog [Lantus Solostar Pen] 24 units SQ DAILY@179911/23/23 [History] Insulin Glargine,Hum.rec.anlog [Lantus Solostar Pen] 34 units SQ DAILY@79911/23/23 [History] Loratadine [Claritin] 10 mg PO DAILY@79911/23/23 [History] Magnesium Oxide [Mag-Ox] 250 mg PO DAILY@79911/23/23 [History] Ondansetron Odt [Zofran ODT] 8 mg PO TID PRN 11/23/23 [History] Potassium Chloride ER [K-Dur 20] 20 meq PO BID@0800,179911/23/23 [History] Semaglutide [Ozempic] 0.5 mg SQ FR 11/23/23 [History] oxyCODONE-APAP 7.5-325MG [Percocet 7.5-325 mg] 1 tab PO QID@00,06,12,18 30 Days #120 tab 12/25/23 [Rx] Doxycycline Hyclate 100 mg PO BID 10 Days #20 tab 12/26/23 [Rx] Follow up Appointment(s)/Referral(s): [facility] Vis[facility] Nurse, [NON-STAFF] - 1 Week Nicholas Hart MD [Primary Care Provider] - 1 Week Activity/Diet/Wound Care/Special Instructions: FELIPA [facility] P: [phone] Discharge Disposition: TRANSFER TO SNF/ECF
--- NOTE | 2023-12-27 08:54 | P.DS ---
Providers Date of admission: 12/26/23 09:59 Attending physician: Nicholas Hart Consults: 12/22/23 22:01 Consult Physician Routine Consulting Provider: Tg Butts Consult Reason/Comments: Ankle wound Do you want consulting provider notified?: Yes, Notify in am Primary care physician: Nicholas Hart - Discharge Diagnosis(es) (1) Ankle ulcer Current Visit: Yes Status: Acute (2) Generalized weakness Current Visit: Yes Status: Acute (3) Atrial fibrillation Current Visit: No Status: Acute (4) CAD (coronary artery disease) Current Visit: No Status: Acute (5) Diabetes Current Visit: No Status: Acute Hospital Course: This is a discharge summary 83-year-old white female sent admitted for left ankle ulcer and cellulitis. She has multiple medical issues including diabetes morbid obesity atrial fibrillation. However, her is dying of acute on chronic renal failure with sepsis. She was placed on appropriate antibiotic treatment due to presumptive MRSA. Appreciate infectious disease input. She has not been stabilized tolerating diet without fever. She will be discharged on oral antibiotic once elucidated from culture and sensitivity. We will defer antibiotic choice to infectious disease. Due to her home situation and documentation that [facility] does not feel comfortable sending her home due to her debility, we will transfer to extended care facility Patient Condition at Discharge: Stable Plan - Discharge Summary Discharge Rx Participant: Yes New Discharge Prescriptions: New Doxycycline Hyclate 100 mg PO BID 10 Days #20 tab Continue Latanoprost [Xalatan 0.005%] 1 drop BOTH EYES HS@0000 Calcium Citrate/Vitamin D3 [Citracal + D Maximum Caplet] 1 tab PO BID@0800,1800 Adalimumab [Humira(Cf) Pen] 40 mg SQ Q14D INSULIN LISPRO (HumaLOG) [humaLOG] 6 units SQ AC-TID Levothyroxine Sodium [Synthroid] 150 mcg PO HS@0000 traZODone HCL [Desyrel] 50 mg PO HS@0000 metFORMIN HCL [Glucophage] 500 mg PO DAILY@1800 Insulin Glargine,Hum.rec.anlog [Lantus Solostar Pen] 24 units SQ DAILY@1800 Gabapentin [Neurontin] 400 mg PO QID@00,06,12,18 Bumetanide [BUMEX] 2 mg PO BID@0800,1800 Acetaminophen Tab [Tylenol] 500 mg PO QID@00,06,12,18 oxyCODONE-APAP 7.5-325MG [Percocet 7.5-325 mg] 1 tab PO QID@00,06,,18 30 Days #120 tab predniSONE 10 mg PO DAILY@0800 Nitroglycerin Sl Tabs [Nitrostat] 0.4 mg SL Q5M PRN PRN Reason: Chest Pain Digoxin [Lanoxin] 125 mcg PO Q48H INSULIN LISPRO (HumaLOG) [humaLOG] See Protocol SQ AC-TID Multivit-Min/FA/Lycopen/Lutein [Centrum Silver Tablet] 1 tab PO DAILY@0800 Apixaban [Eliquis] 5 mg PO BID@0800,1800 Tolterodine ER [Detrol LA] 4 mg PO DAILY@1200 Ondansetron Odt [Zofran ODT] 8 mg PO TID PRN PRN Reason: Nausea Insulin Glargine,Hum.rec.anlog [Lantus Solostar Pen] 34 units SQ DAILY@0800 Semaglutide [Ozempic] 0.5 mg SQ FR Cyclobenzaprine [Flexeril] 10 mg PO HS@0000 Potassium Chloride ER [K-Dur 20] 20 meq PO BID@0800,1800 Magnesium Oxide [Mag-Ox] 250 mg PO DAILY@0800 Loratadine [Claritin] 10 mg PO DAILY@0800 Discharge Medication List Latanoprost [Xalatan 0.005%] 1 drop BOTH EYES HS@0000 08/11/17 [History] predniSONE 10 mg PO DAILY@0800 07/23/21 [History] Calcium Citrate/Vitamin D3 [Citracal + D Maximum Caplet] 1 tab PO BID@0800,1800 11/16/21 [History] Digoxin [Lanoxin] 125 mcg PO Q48H 11/16/21 [History] Nitroglycerin Sl Tabs [Nitrostat] 0.4 mg SL Q5M PRN 11/16/21 [History] Adalimumab [Humira(Cf) Pen] 40 mg SQ Q14D 01/09/22 [History] Apixaban [Eliquis] 5 mg PO BID@0800,1800 05/02/22 [History] INSULIN LISPRO (HumaLOG) [humaLOG] 6 units SQ AC-TID 05/02/22 [History] INSULIN LISPRO (HumaLOG) [humaLOG] See Protocol SQ AC-TID 05/02/22 [History] Multivit-Min/FA/Lycopen/Lutein [Centrum Silver Tablet] 1 tab PO DAILY@0800 05/02/22 [History] Levothyroxine Sodium [Synthroid] 150 mcg PO HS@0000 09/02/22 [History] traZODone HCL [Desyrel] 50 mg PO HS@0000 12/15/22 [History] Tolterodine ER [Detrol LA] 4 mg PO DAILY@1200 05/15/23 [History] metFORMIN HCL [Glucophage] 500 mg PO DAILY@1800 05/25/23 [History] Acetaminophen Tab [Tylenol] 500 mg PO QID@00,06,12,18 11/23/23 [History] Bumetanide [BUMEX] 2 mg PO BID@0800,1800 11/23/23 [History] Cyclobenzaprine [Flexeril] 10 mg PO HS@0000 11/23/23 [History] Gabapentin [Neurontin] 400 mg PO QID@00,06,12,18 11/23/23 [History] Insulin Glargine,Hum.rec.anlog [Lantus Solostar Pen] 24 units SQ DAILY@1800 11/23/23 [History] Insulin Glargine,Hum.rec.anlog [Lantus Solostar Pen] 34 units SQ DAILY@0811/23/23 [History] Loratadine [Claritin] 10 mg PO DAILY@0811/23/23 [History] Magnesium Oxide [Mag-Ox] 250 mg PO DAILY@0811/23/23 [History] Ondansetron Odt [Zofran ODT] 8 mg PO TID PRN 11/23/23 [History] Potassium Chloride ER [K-Dur 20] 20 meq PO BID@0800,1800 11/23/23 [History] Semaglutide [Ozempic] 0.5 mg SQ FR 11/23/23 [History] oxyCODONE-APAP 7.5-325MG [Percocet 7.5-325 mg] 1 tab PO QID@00,06,12,18 30 Days #120 tab 12/25/23 [Rx] Doxycycline Hyclate 100 mg PO BID 10 Days #20 tab 12/26/23 [Rx] Follow up Appointment(s)/Referral(s): Nicholas Hart MD [Primary Care Provider] - 1 Week [facility] Visiting Nurse, [NON-STAFF] - 1 Week Activity/Diet/Wound Care/Special Instructions: [facility] P: [phone] Discharge Disposition: TRANSFER TO SNF/ECF
[2023-12-27 12:34] LABS: Glucose,Whole Blood 310 mg/dL (70-110)
--- NOTE | 2023-12-27 13:04 | P.PN ---
Subjective Progress Note Date: 12/27/23 Principal diagnosis: Reason for follow-up is left medial ankle wound Patient is a 83-year-old female with a past medical history significant for coronary disease diabetes mellitus hypertension hyperlipidemia osteoarthritis history of recurrent left lower extremity cellulitis patient apparently has developed a wound to the left medial ankle area for the patient has been advised by the home care nurse to go to the hospital for evaluation. On today's evaluation that is 12/27/2023,the patient denies any fever or any chills, patient is breathing comfortably on room air, the patient denies chest pain shortness of breath and no significant cough, patient denies abdominal pain, no nausea vomiting or diarrhea. He has been complaining of dull ache to the left medial ankle wound area but no worsening. Patient did have a creatinine 0.74 culture with MRSA that is resistant to Doxy as well as Bactrim sensitive to Zyvox Objective - Vital Signs Vital signs: Vital Signs Temp 98.0 F 12/27/23 07:10 Pulse 63 12/27/23 07:10 Resp 18 12/27/23 07:10 BP 124/61 12/27/23 07:10 Pulse Ox 98 12/27/23 07:10 FiO2 Intake & Output 12/26/23 12/27/23 12/27/23 18:59 06:59 18:59 Intake Total 540 Balance 540 Weight 117.934 kg Intake: Oral 540 Other: Voiding Method Bedside Commode Toilet Diaper Bedside Commode Diaper # Voids 1 6 - Exam GENERAL DESCRIPTION: An elderly female lying in bed in no distress RESPIRATORY SYSTEM: Unlabored breathing , decreased breath sounds at bases HEART: S1 S2 regular rate and rhythm , ABDOMEN: Soft , no tenderness EXTREMITIES: Left medial ankle wound is currently dressed with minimal redness to the left leg - Labs CBC & Chem 7: 12/25/23 06:05 12/27/23 05:29 Labs: Abnormal Lab Results - Last 24 Hours (Table) 12/26/23 12/26/23 12/26/23 Range/Units 12:12 17:06 20:17 POC Glucose (mg/dL) 237 H 285 H 246 H (70-110) mg/dL Microbiology - Last 24 Hours (Table) 12/23/23 12:30 Gram Stain - Final Ankle - Left Wound Culture - Final Methicillin resist S. aureus Assessment and Plan (1) Ankle ulcer Current Visit: Yes Status: Acute Code(s): L97.309 - NON-PRESSURE CHRONIC ULCER OF UNSP ANKLE WITH UNSP SEVERITY SNOMED Code(s): 418987162 (2) Allergy to cephalosporin Current Visit: No Status: Acute Code(s): Z88.1 - ALLERGY STATUS TO OTHER ANTIBIOTIC AGENTS SNOMED Code(s): 675027521 Plan: 1patient presented to hospital with a nonhealing wound to the left medial ankle area that she has for couple of weeks and concern from the home care nurse regarding possible infection overall wound base looks clean with no significant slough tissue minimal swelling but no foul-smelling drainage. 2patient with cephalexin allergy that will limit the number of antibiotics safe to use no history of anaphylaxis. 3local wound culture currently growing MRSA that is resistant to doxycycline and Bactrim sensitive to Zyvox 4patient to continue with vancomycin , discharge antibiotic has been switched over to Zyvox patient voiced to stop taking the Flexeril while on Zyvox and doxycycline prescription has been canceled by nursing staff Dictation was produced using [employer] dictation software. please excuse any grammatical, word or spelling errors. Time with Patient: Less than 30
[2023-12-27 16:56] LABS: Glucose,Whole Blood 198 mg/dL (70-110)
[2023-12-27] MEDS ORDERED: ALPRAZolam 0.5 MG TAB PO PRN (20:12)
[2023-12-27 20:20] LABS: Glucose,Whole Blood 201 mg/dL (70-110)
[2023-12-28 07:30] LABS: Glucose,Whole Blood 160 mg/dL (70-110)
[2023-12-28 07:43] VITALS: BP 150/77; PULSE 87; RESP 18; TEMP 97.8
[2023-12-28 12:36] LABS: Glucose,Whole Blood 160 mg/dL (70-110)
--- NOTE | 2023-12-28 14:27 | P.PN ---
Subjective Progress Note Date: 12/28/23 Principal diagnosis: Reason for follow-up is left medial ankle wound Patient is a 83-year-old female with a past medical history significant for coronary disease diabetes mellitus hypertension hyperlipidemia osteoarthritis history of recurrent left lower extremity cellulitis patient apparently has developed a wound to the left medial ankle area for the patient has been advised by the home care nurse to go to the hospital for evaluation. On today's evaluation that is 12/28/2023,the patient remains to be afebrile, patient is on room air not requiring supplemental oxygen and denies any shortness of breath no chest pain or cough.Patient denies having any nausea or vomiting, no abdominal pain and no diarrhea admitted to the left medial ankle area is currently controlled. No new lab has been obtained today Objective - Vital Signs Vital signs: Vital Signs Temp 97.8 F 12/28/23 07:23 Pulse 87 12/28/23 07:23 Resp 18 12/28/23 07:23 BP 150/77 12/28/23 07:23 Pulse Ox 96 12/28/23 07:23 FiO2 Intake & Output 12/27/23 12/28/23 12/28/23 18:59 06:59 18:59 Other: Voiding Method Toilet Toilet Toilet Bedside Commode Bedside Commode Bedside Commode Diaper Diaper Diaper # Voids 1 4 - Labs CBC & Chem 7: 12/25/23 06:05 12/27/23 05:29 Labs: Abnormal Lab Results - Last 24 Hours (Table) 12/27/23 12/27/23 12/27/23 Range/Units 12:33 16:55 20:10 POC Glucose (mg/dL) 310 H 198 H 201 H (70-110) mg/dL 12/28/23 Range/Units 07:29 POC Glucose (mg/dL) 160 H (70-110) mg/dL Microbiology - Last 24 Hours (Table) 12/23/23 12:30 Anaerobic Culture - Final Ankle - Left Assessment and Plan (1) Ankle ulcer Current Visit: Yes Status: Acute Code(s): L97.309 - NON-PRESSURE CHRONIC ULCER OF UNSP ANKLE WITH UNSP SEVERITY SNOMED Code(s): 928134983 (2) Allergy to cephalosporin Current Visit: No Status: Acute Code(s): Z88.1 - ALLERGY STATUS TO OTHER ANTIBIOTIC AGENTS SNOMED Code(s): 632338872 Plan: 1patient presented to hospital with a nonhealing wound to the left medial ankle area that she has for couple of weeks and concern from the home care nurse regarding possible infection overall wound base looks clean with no significant slough tissue minimal swelling but no foul-smelling drainage. 2patient with cephalexin allergy that will limit the number of antibiotics safe to use no history of anaphylaxis. 3local wound culture currently growing MRSA that is resistant to doxycycline and Bactrim sensitive to Zyvox 4patient to continue with vancomycin , plan is to finish therapy with Zyvox prescription has been sent and instruction not to take Flexeril while on Zyvox and if any worsening swelling or redness to let me know right away Dictation was produced using [employer] dictation software. please excuse any grammatical, word or spelling errors. Time with Patient: Less than 30
[2023-12-28] MEDS ORDERED: VANCOMYCIN TROUGH DUE 1 EACH MISC MISCELLANE ONE (19:00)
== END 2023-12-28 15:25 | disposition home or self-care (01) | DRG 638 ==
LOC: EC 13:06 → 5NMEDONC 15:07 → OBSVTOIN 12-26 09:59
PROVIDERS: ADMIT Family Medicine; ATTEND Family Medicine
DX: E11.622 Type 2 diabetes mellitus with other skin ulcer (principal); I48.20 Chronic atrial fibrillation, unspecified; L97.328 Non-pressure chronic ulcer of left ankle with other specified severity; N17.9 Acute kidney failure, unspecified; E11.65 Type 2 diabetes mellitus with hyperglycemia; I10 Essential (primary) hypertension; M06.9 Rheumatoid arthritis, unspecified; E03.9 Hypothyroidism, unspecified; E66.01 Morbid (severe) obesity due to excess calories; M35.00 Sjogren syndrome, unspecified; B95.62 Methicillin resistant Staphylococcus aureus infection as the cause of diseases classified elsewhere; E78.5 Hyperlipidemia, unspecified; G89.29 Other chronic pain; I25.10 Atherosclerotic heart disease of native coronary artery without angina pectoris; Z96.1 Presence of intraocular lens; Z79.4 Long term (current) use of insulin; Z79.01 Long term (current) use of anticoagulants; Z79.84 Long term (current) use of oral hypoglycemic drugs; Z79.890 Hormone replacement therapy; Z79.891 Long term (current) use of opiate analgesic; Z79.899 Other long term (current) drug therapy; Z85.820 Personal history of malignant melanoma of skin; Z98.1 Arthrodesis status; Z88.1 Allergy status to other antibiotic agents; Z79.52 Long term (current) use of systemic steroids; Z79.620 Long term (current) use of immunosuppressive biologic
CPT/HCPCS: 36415; 71046; 80048; 80053; 81003; 82009; 82565; 83036; 83605; 83735; 85025; 87070; 87075; 87077; 87186; 87205; 93005; 94760; 96360; 96361; 99285

== ENCOUNTER 2024-01-05 04:09 | Observation (INO) | payer MEDICARE ==
--- NOTE | 2024-01-05 04:49 | CT ---
EXAM: CT Head Without Intravenous Contrast CLINICAL HISTORY: fall on thinners, unsure LOC TECHNIQUE: Axial computed tomography images of the head/brain without intravenous contrast. CTDI is 45.2 mGy and DLP is 1059 mGy-cm. This CT exam was performed using one or more of the following dose reduction techniques: automated exposure control, adjustment of the mA and/or kV according to patient size, and/or use of iterative reconstruction technique. Coronal and sagittal reformatted images were created and reviewed. 689 images COMPARISON: 06/29/22 FINDINGS: Brain: Age-related generalized brain volume loss and chronic small vessel ischemic changes. Small encephalomalacia of right occipital lobe is again noted. No hemorrhage. Ventricles: Unremarkable. No ventriculomegaly. Bones/joints: No acute findings. Soft tissues: Unremarkable. Sinuses: Unremarkable as visualized. No acute sinusitis. Mastoid air cells: Unremarkable as visualized. No mastoid effusion. Orbits: Bilateral cataract surgeries. IMPRESSION: No acute intracranial findings or substantial change. EXAM: CT Cervical Spine Without Intravenous Contrast CLINICAL HISTORY: fall on thinners, unsure LOC TECHNIQUE: Axial computed tomography images of the cervical spine without intravenous contrast. CTDI is 18.4 mGy and DLP is 634.7 mGy-cm. This CT exam was performed using one or more of the following dose reduction techniques: automated exposure control, adjustment of the mA and/or kV according to patient size, and/or use of iterative reconstruction technique. Coronal and sagittal reformatted images were created and reviewed. COMPARISON: No relevant prior studies available. FINDINGS: Vertebrae: Osteopenia. 4 mm anterolisthesis of C7 on T1, likely chronic. ACDF from C4-6. No acute fracture. Discs/spinal canal/neural foramina: Moderate-advanced degenerative disc disease causing various degrees of spinal canal stenosis and neuroforaminal narrowing. Soft tissues: Unremarkable. Vasculature: Moderate amount of atherosclerotic calcifications. IMPRESSION: No acute findings in the cervical spine.
--- NOTE | 2024-01-05 05:05 | XR ---
EXAM: XR Chest, 1 View CLINICAL HISTORY: fall TECHNIQUE: Frontal view of the chest. COMPARISON: 06-17-2023 FINDINGS: Lungs: Small to moderate amount of airspace opacities in both lungs, more on the left, can be due to asymmetrical edema versus pneumonia. Pleural space: Unremarkable. Heart: Cardiomegaly. Mediastinum: Unremarkable. Normal mediastinal contour. Bones/joints: No displaced rib fracture identified. IMPRESSION: Small to moderate amount of airspace opacities in both lungs, more on the left, can be due to asymmetrical edema versus pneumonia. Underlying pulmonary contusion cannot be excluded.
--- NOTE | 2024-01-05 05:07 | XR ---
EXAM: XR Left Ankle Complete, 2 Views CLINICAL HISTORY: swelling TTP lat mal TECHNIQUE: Frontal, lateral views of the left ankle. COMPARISON: No relevant prior studies available. FINDINGS: Bones/joints: Osteopenia. Severe osteophytic changes characterized by joint space narrowing and subchondral sclerotic changes. Suspect old fracture of distal fibular diaphysis. Soft tissues: No soft tissue gas. Vasculature: Peripheral vascular calcifications. IMPRESSION: No dislocation or acute fracture.
--- NOTE | 2024-01-05 05:08 | XR ---
EXAM: XR Left Elbow Complete, 2 Views CLINICAL HISTORY: TTP left elbow TECHNIQUE: Frontal, lateral views of the left elbow. COMPARISON: No relevant prior studies available. FINDINGS: Bones/joints: Osteopenia. Advanced osteoarthritic changes characterized by joint space narrowing and osteophyte formation. No fracture or dislocation.. Soft tissues: No soft tissue gas. IMPRESSION: No fracture or dislocation.
--- NOTE | 2024-01-05 05:20 | ED ---
Fall HPI - General Chief Complaint: Fall Stated Complaint: Fall Time Seen by Provider: 01/05/24 04:15 Source: patient, EMS Mode of arrival: EMS - History of Present Illness Initial Comments: Patient is an 83 y/o female history of diabetes, atrial fibrillation on Eliquis presenting today for a fall at home. Patient is unsure how she fell, states she was getting up from bed to use the bathroom when she had forgotten that her walker was next to her bed, when she tried to stand she fell on her back. She denies hitting her head or loss of consciousness. She was not able to get up after the fall so crawled to her phone and called 911. Patient currently endorses left elbow and left ankle pain. She denies chest pain or shortness of breath, new numbness or weakness in her extremities, changes in vision headache, dizziness, recent fevers or chills, cough, abdominal pain, nausea or vomiting. Is currently living at home alone. - Related Data Home Medications Medication Instructions Recorded Confirmed Latanoprost [Xalatan 0.005%] 1 drop BOTH EYES HS@0000 08/11/17 12/22/23 predniSONE 10 mg PO DAILY@0800 07/23/21 12/22/23 Calcium Citrate/Vitamin D3 1 tab PO BID@0800,1800 11/16/21 12/22/23 [Citracal + D Maximum Caplet] Digoxin [Lanoxin] 125 mcg PO Q48H 11/16/21 12/22/23 Nitroglycerin Sl Tabs [Nitrostat] 0.4 mg SL Q5M PRN 11/16/21 12/22/23 Adalimumab [Humira(Cf) Pen] 40 mg SQ Q14D 01/09/22 12/22/23 Apixaban [Eliquis] 5 mg PO BID@0800,1800 05/02/22 12/22/23 INSULIN LISPRO (HumaLOG) [humaLOG] 6 units SQ AC-TID 05/02/22 12/22/23 INSULIN LISPRO (HumaLOG) [humaLOG] See Protocol SQ AC-TID 05/02/22 12/22/23 Multivit-Min/FA/Lycopen/Lutein 1 tab PO DAILY@0800 05/02/22 12/22/23 [Centrum Silver Tablet] Levothyroxine Sodium [Synthroid] 150 mcg PO HS@0000 07/07/23 10/25/24 traZODone HCL [Desyrel] 50 mg PO HS@0000 12/15/22 12/22/23 Tolterodine ER [Detrol LA] 4 mg PO DAILY@1200 05/15/23 12/22/23 metFORMIN HCL [Glucophage] 500 mg PO DAILY@1800 05/25/23 12/22/23 Acetaminophen Tab [Tylenol] 500 mg PO QID@00,06,12,18 11/23/23 12/22/23 Bumetanide [BUMEX] 2 mg PO BID@0800,1800 11/23/23 12/22/23 Gabapentin [Neurontin] 400 mg PO QID@00,06,12,18 11/23/23 12/22/23 Insulin Glargine,Hum.rec.anlog 24 units SQ DAILY@179911/23/23 12/22/23 [Lantus Solostar Pen] Insulin Glargine,Hum.rec.anlog 34 units SQ DAILY@0811/23/23 12/22/23 [Lantus Solostar Pen] Loratadine [Claritin] 10 mg PO DAILY@0811/23/23 12/22/23 Magnesium Oxide [Mag-Ox] 250 mg PO DAILY@79911/23/23 12/22/23 Ondansetron Odt [Zofran ODT] 8 mg PO TID PRN 11/23/23 12/22/23 Potassium Chloride ER [K-Dur 20] 20 meq PO BID@0800,1800 11/23/23 12/22/23 Semaglutide [Ozempic] 0.5 mg SQ FR 11/23/23 12/22/23 Previous Rx's Medication Instructions Recorded oxyCODONE-APAP 7.5-325MG [Percocet 1 tab PO QID@00,06,12,18 30 Days 12/25/23 7.5-325 mg] #120 tab Linezolid [Zyvox] 600 mg PO Q12H #20 tab 12/27/23 Allergies Allergy/AdvReac Type Severity Reaction Status Date / Time adhesive Allergy Rash/Hives Verified 01/05/24 07:20 cephalexin [From Keflex] Allergy Rash/Hives Verified 01/05/24 07:20 grass pollen Allergy Unknown Verified 01/05/24 07:20 mold Allergy Unknown Verified 01/05/24 07:20 newspaper ink Allergy Mild Unknown Uncoded 01/05/24 07:20 Review of Systems ROS Statement: Those systems with pertinent positive or pertinent negative responses have been documented in the HPI. ROS Other: All systems not noted in ROS Statement are negative. Past Medical History Past Medical History: Atrial Fibrillation, Coronary Artery Disease (CAD), Cancer, Diabetes Mellitus, Hyperlipidemia, Hypertension, Musculoskeletal Disorder, Neurologic Disorder, Osteoarthritis (OA), Pneumonia, Renal Disease, Rheumatoid Arthritis (RA), Skin Disorder, Thyroid Disorder Additional Past Medical History / Comment(s): Morbid obesity, chronic atrial fibrillation, diabetes mellitus type 2, hypertension, hyperlipidemia, spinal stenosis, osteoarthritis, hypothyroidism, hypertension, history of skin melanoma, history of bursitis with MRSA post I&D, rheumatoid arthritis, Sjogren's disease, 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 without any indication of ILD related to RA, Fall on July 22 transfer to [facility] for MRI, then Fall on 11/16/21 History of Any Multi-Drug Resistant Organisms: MRSA Date of last positivie culture/infection: 09/02/22 MDRO Source:: Right Leg Past Surgical History: Back Surgery, Breast Surgery, Cholecystectomy, Heart Catheterization, Joint Replacement, Orthopedic Surgery Additional Past Surgical History / Comment(s): Bilateral cataracts with lens implants, arthroscopies to lt wrist, gualberto knees, gualberto ankles, gualberto hips, lt hip replacment and redone, L/R shoulder sxs, rt breast bx-benign, egd/colonoscopy, skin cancer removal L arm, Lumbar fixnation possible broken Past Anesthesia/Blood Transfusion Reactions: No Reported Reaction Additional Past Anesthesia/Blood Transfusion Reaction / Comment(s): Pt has been told not to have anesthesia metabolized by the kidneys and has neurologic Sjogren's with post anesthesia paralysis. Past Psychological History: No Psychological Hx Reported Smoking Status: Unknown if ever smoked Past Alcohol Use History: None Reported Past Drug Use History: None Reported - Past Family History Mother Family Medical History: CVA/TIA Additional Family Medical History / Comment(s): RUPTURED BOWEL Father Family Medical History: Cancer, Pneumonia Additional Family Medical History / Comment(s): ASPIRATIVE PNA Sister(s) Additional Family Medical History / Comment(s): at age 34 with lupus General Exam - General Exam Comments Initial Comments: PE: CONSTITUTIONAL: No apparent distress, chronically ill-appearing SKIN: Warm, dry, no jaundice, hives or petechiae. Superficial bruises scattered on upper extremities of varying ages EYES: Pupils are equally round, extraocular movements intact without nystagmus, clear conjunctiva, non-icteric sclera HENT: Normocephalic, atraumatic, dry mucus membranes, oropharynx clear without exudates NECK: , No midline spinal tenderness to palpation, c-collar in place PULMONARY: Clear to auscultation without wheezes, rhonchi, or rales, normal excursion, no accessory muscle use and no stridor CARDIOVASCULAR: Regular rate, rhythm, normal S1 and S2. No appreciated murmurs, rubs or gallops. Strong radial pulses with intact distal perfusion. No lower extremity edema GASTROINTESTINAL: Soft, active bowel sounds throughout, non-tender, non- distended, no palpable masses, no rebound or guarding. No hepatosplenomegaly GENITOURINARY: MUSCULOSKELETAL: Point tenderness palpation of the posterior left elbow, t enderness palpation the lateral malleoli of the distal left lower extremity, swelling and erythema present here, medial right scapular tenderness to palpation, bilateral hip tenderness to palpation, no tenderness palpation throughout the proximal lower extremities otherwise, remaining extremities have no gross deformity, no edema, redness, or swelling. No calf swelling, no midline spinal tenderness to palpation NEUROLOGIC:_a/o x 3, GCS 15, normal mentation and speech. Moves all extremities x 4 without motor or sensory deficit PSYCHIATRIC:_normal mood and affect, thought process is clear and linear Limitations: no limitations Course Vital Signs 01/05/24 01/05/24 04:14 05:59 Temperature 98.4 F Pulse Rate 97 96 Respiratory 16 16 Rate Blood Pressure 149/69 151/68 O2 Sat by Pulse 97 95 Oximetry Medical Decision Making - Medical Decision Making Was pt. sent in by a medical professional or institution (, PA, CRIMPER OPERATOR, urgent care, hospital, or detention...) When possible be specific @ -No Did you speak to anyone other than the patient for history (EMS, parent, family, police, friend...)? What history was obtained from this source @ -No Did you review nursing and triage notes (agree or disagree)? Why? @ -I reviewed and agree with nursing and triage notes Were old charts reviewed (outside hosp., previous admission, EMS record, old EKG, old radiological studies, urgent care reports/EKG's, detention records)? Report findings @Medical records reviewed, appears patient was admitted here on 12/22/2023 for cellulitis of the left lower extremity, per discharge summary patient was discharged to SNF Differential Diagnosis (chest pain, altered mental status, abdominal pain women, abdominal pain men, vaginal bleeding, weakness, fever, dyspnea, syncope, headache, dizziness, GI bleed, back pain, seizure, CVA, palpatations, mental health, musculoskeletal)? @Differential diagnosis remains broad however top considerations include mecha nical trip and fall, generalized weakness 2/2 electrolyte abnormality, ACS, infection, this is not all-inclusive list Differential Musculoskeletal Muscular strain, contusion, ligament sprain, fracture, arthritis, septic arthritis, bursitis, cellulitis, muscle spasm, nerve compression, DVT, arterial occlusion, herpes zoster, electrolyte abnormality, tumor.... This is not meant to be in all inclusive list EKG interpreted by me (3pts min.). @ -Atrial fibrillation rate 88 bpm, [place] interval unable to calculate, QRS duration 112 ms, QT/QTc 378/420 ms, normal axis, compared to EKG performed on 12/22/2023 limited by artifact however no significant changes from prior X-rays interpreted by me (1pt min.). @ Reviewed x-ray hip pelvis, scapula, shoulder, humerus, chest x-ray elbow ankle, I see no evidence of fracture or dislocation. CT interpreted by me (1pt min.). Reviewed CT brain C-spine, I see no evidence of hemorrhage on CT brain, no evidence of fracture or malalignment on CT C-spine U/S interpreted by me (1pt. min.). @ -None done What testing was considered but not performed or refused? (CT, X-rays, U/S, labs)? Why? @ -None What meds were considered but not given or refused? Why? @ -None Did you discuss the management of the patient with other professionals (professionals i.e. , PA, CRIMPER OPERATOR, lab, RT, psych nurse, manager social media, curtain feller blindstitch, teacher, investment officer, family caseworker)? Give summary @ -No Was smoking cessation discussed for >3mins.? @ -No Was critical care preformed (if so, how long)? @ -No Were there social determinants of health that impacted care today? How? (Homelessness, low income, unemployed, alcoholism, drug addiction, transportation, low edu. Level, literacy, decrease access to med. care, snf, rehab)? @ -No Was there de-escalation of care discussed even if they declined (Discuss DNR or withdrawal of care, Hospice)? @ -No What co-morbidities impacted this encounter? (DM, HTN, Smoking, COPD, CAD, Cancer, CVA, ARF, Chemo, Hep., AIDS, mental health diagnosis, sleep apnea, morbid obesity)? @ -DM, atrial fibrillation on eliquis Was patient admitted / discharged? Hospital course, mention meds given and route, prescriptions, significant lab abnormalities, going to OR and other pertinent info. @ -Admission- Patient is an 83 y/o male with PMH DM, atrial fibrillation, recent admission for LE cellulitis, hx MRSA, presenting for fall at home this evening. Pt denies LOC. Exam shows no signs head trauma however as patient not entirely sure how she fell, age, on blood thinners, will obtain CT brain/Cspine. Pt endorses left elbow pain with point TTP and left ankle pain. Mild swelling, erythema and tenderness with patient lateral malleolus where patient has is recently treated for cellulitis. Plain films of these areas ordered. Given patient unsure if m echanical trip and fall due to walker in her way versus secondary to weakness will obtain basic labs, urinalysis. On reassessment patient now endorsing left shoulder pain, right scapular pain, bilateral hip pain. TTP of these regions, given body habitus limited exam, plain films ordered of these regions as well. Plan films negative for acute process. CT brain and C-spine negative for acute process. Labs significant for hyperglycemia 675 no anion gap. Patient states she is taking her medications as prescribed. Attempted to ambulate patient however she is unable to ambulate due to weakness. Ordered home insulin, plan for admission for generalized weakness and uncontrolled hyperglycemia. Case discussed with Dr. Hart, kindly accepts patient for admission. Undiagnosed new problem with uncertain prognosis? @ -No Drug Therapy requiring intensive monitoring for toxicity (Heparin, Nitro, Insulin, Cardizem)? @ -No Were any procedures done? @ -No Diagnosis/symptom? @ -Generalized weakness, fall, uncontrolled hyperglycemia, contusions Acute, or Chronic, or Acute on Chronic? @ -Acute Uncomplicated (without systemic symptoms) or Complicated (systemic symptoms)? @ -Complicated Side effects of treatment? @ -No Exacerbation, Progression, or Severe Exacerbation? @ -No Poses a threat to life or bodily function? How? (Chest pain, USA, MD, pneumonia, PE, COPD, DKA, ARF, appy, cholecystitis, CVA, Diverticulitis, Homicidal, Suicidal, threat to staff... and all critical care pts) @ -No - Lab Data Result diagrams: 01/05/24 05:30 01/05/24 05:30 Lab Results 01/05/24 01/05/24 01/05/24 Range/Units 05:30 05:30 05:30 WBC 9.8 (3.8-10.6) k/uL RBC 4.45 (3.80-5.40) m/uL Hgb 13.9 (11.4-16.0) gm/dL Hct 44.4 (34.0-46.0) % MCV 99.8 (80.0-100.0) fL MCH 31.3 (25.0-35.0) pg MCHC 31.4 (31.0-37.0) g/dL RDW 13.6 (11.5-15.5) % Plt Count 207 (150-450) k/uL MPV 7.3 Neutrophils % 71 % Lymphocytes % 21 % Monocytes % 5 % Eosinophils % 2 % Basophils % 1 % Neutrophils # 7.0 (1.3-7.7) k/uL Lymphocytes # 2.0 (1.0-4.8) k/uL Monocytes # 0.5 (0-1.0) k/uL Eosinophils # 0.2 (0-0.7) k/uL Basophils # 0.1 (0-0.2) k/uL Hypochromasia Slight PT 11.6 (10.0-12.5) sec INR 1.1 (<1.2) APTT 22.5 (22.0-30.0) sec VBG pH (7.31-7.41) VBG pCO2 (37-51) mmHg VBG HCO3 (24-28) mmol/L Sodium 130 L (137-145) mmol/L Potassium 5.3 H (3.5-5.1) mmol/L Chloride 91 L (98-107) mmol/L Carbon Dioxide 33 H (22-30) mmol/L Anion Gap 6 mmol/L BUN 57 H (7-17) mg/dL Creatinine 0.96 (0.52-1.04) mg/dL Est GFR (CKD-EPI)AfAm 64 (>60 ml/min/1.73 sqM) Est GFR (CKD-EPI)NonAf 55 (>60 ml/min/1.73 sqM) Glucose 675 H* (74-99) mg/dL POC Glucose (mg/dL) (70-110) mg/dL POC Glu Electrostatic Paint Operator ID Calcium 9.6 (8.4-10.2) mg/dL Magnesium 2.2 (1.6-2.3) mg/dL Total Bilirubin 1.0 (0.2-1.3) mg/dL AST 40 H (14-36) U/L ALT 26 (4-34) U/L Alkaline Phosphatase 102 (38-126) U/L Troponin I (0.000-0.034) ng/mL Total Protein 7.7 (6.3-8.2) g/dL Albumin 4.2 (3.5-5.0) g/dL TSH 1.110 (0.465-4.680) mIU/L Influenza Type A (PCR) (Not Detectd) Influenza Type B (PCR) (Not Detectd) RSV (PCR) (Not Detectd) SARS-CoV-2 (PCR) (Not Detectd) 01/05/24 01/05/24 01/05/24 Range/Units 05:30 05:35 06:14 WBC (3.8-10.6) k/uL RBC (3.80-5.40) m/uL Hgb (11.4-16.0) gm/dL Hct (34.0-46.0) % MCV (80.0-100.0) fL MCH (25.0-35.0) pg MCHC (31.0-37.0) g/dL RDW (11.5-15.5) % Plt Count (150-450) k/uL MPV Neutrophils % % Lymphocytes % % Monocytes % % Eosinophils % % Basophils % % Neutrophils # (1.3-7.7) k/uL Lymphocytes # (1.0-4.8) k/uL Monocytes # (0-1.0) k/uL Eosinophils # (0-0.7) k/uL Basophils # (0-0.2) k/uL Hypochromasia PT (10.0-12.5) sec INR (<1.2) APTT (22.0-30.0) sec VBG pH (7.31-7.41) VBG pCO2 (37-51) mmHg VBG HCO3 (24-28) mmol/L Sodium (137-145) mmol/L Potassium (3.5-5.1) mmol/L Chloride (98-107) mmol/L Carbon Dioxide (22-30) mmol/L Anion Gap mmol/L BUN (7-17) mg/dL Creatinine (0.52-1.04) mg/dL Est GFR (CKD-EPI)AfAm (>60 ml/min/1.73 sqM) Est GFR (CKD-EPI)NonAf (>60 ml/min/1.73 sqM) Glucose (74-99) mg/dL POC Glucose (mg/dL) >600 H* (70-110) mg/dL POC Glu Electrostatic Paint Operator ID Austin Pacheco Calcium (8.4-10.2) mg/dL Magnesium (1.6-2.3) mg/dL Total Bilirubin (0.2-1.3) mg/dL AST (14-36) U/L ALT (4-34) U/L Alkaline Phosphatase (38-126) U/L Troponin I 0.034 (0.000-0.034) ng/mL Total Protein (6.3-8.2) g/dL Albumin (3.5-5.0) g/dL TSH (0.465-4.680) mIU/L Influenza Type A (PCR) Not Detected (Not Detectd) Influenza Type B (PCR) Not Detected (Not Detectd) RSV (PCR) Not Detected (Not Detectd) SARS-CoV-2 (PCR) Not Detected (Not Detectd) 01/05/24 01/05/24 Range/Units 07:00 07:33 WBC (3.8-10.6) k/uL RBC (3.80-5.40) m/uL Hgb (11.4-16.0) gm/dL Hct (34.0-46.0) % MCV (80.0-100.0) fL MCH (25.0-35.0) pg MCHC (31.0-37.0) g/dL RDW (11.5-15.5) % Plt Count (150-450) k/uL MPV Neutrophils % % Lymphocytes % % Monocytes % % Eosinophils % % Basophils % % Neutrophils # (1.3-7.7) k/uL Lymphocytes # (1.0-4.8) k/uL Monocytes # (0-1.0) k/uL Eosinophils # (0-0.7) k/uL Basophils # (0-0.2) k/uL Hypochromasia PT (10.0-12.5) sec INR (<1.2) APTT (22.0-30.0) sec VBG pH 7.47 H (7.31-7.41) VBG pCO2 42 (37-51) mmHg VBG HCO3 31 H (24-28) mmol/L Sodium (137-145) mmol/L Potassium (3.5-5.1) mmol/L Chloride (98-107) mmol/L Carbon Dioxide (22-30) mmol/L Anion Gap mmol/L BUN (7-17) mg/dL Creatinine (0.52-1.04) mg/dL Est GFR (CKD-EPI)AfAm (>60 ml/min/1.73 sqM) Est GFR (CKD-EPI)NonAf (>60 ml/min/1.73 sqM) Glucose (74-99) mg/dL POC Glucose (mg/dL) >600 H* (70-110) mg/dL POC Glu Electrostatic Paint Operator ID Pito Loya Calcium (8.4-10.2) mg/dL Magnesium (1.6-2.3) mg/dL Total Bilirubin (0.2-1.3) mg/dL AST (14-36) U/L ALT (4-34) U/L Alkaline Phosphatase (38-126) U/L Troponin I (0.000-0.034) ng/mL Total Protein (6.3-8.2) g/dL Albumin (3.5-5.0) g/dL TSH (0.465-4.680) mIU/L Influenza Type A (PCR) (Not Detectd) Influenza Type B (PCR) (Not Detectd) RSV (PCR) (Not Detectd) SARS-CoV-2 (PCR) (Not Detectd) Disposition Clinical Impression: Fall Disposition: ADMITTED IP TO THIS HOSP Condition: Good Referrals: Nicholas Hart MD [Primary Care Provider] - 1-2 days
[2024-01-05] MEDS: SODIUM CHLORIDE 0.9% 500 ML 500 ML IV ONE (05:28)
[2024-01-05] MEDS: oxyCODONE-APAP 5-325MG 1 EACH TAB PO STA (05:29)
[2024-01-05 05:37] LABS: Basophils # (A) 0.1 k/uL (0-0.2); Basophils % (A) 1 %; Eosinophils # (A) 0.2 k/uL (0-0.7); Eosinophils % (A) 2 %; HCT 44.4 % (34.0-46.0); HGB 13.9 gm/dL (11.4-16.0); Hypochromasia Slight; Lymphocytes % (A) 21 %; MCH 31.3 pg (25.0-35.0); MCHC 31.4 g/dL (31.0-37.0); MCV 99.8 fL (80.0-100.0); Mean Platelet Volume 7.3; Monocytes # (A) 0.5 k/uL (0-1.0); Monocytes % (A) 5 %; Neutrophils % (A) 71 %; Platelet Count 207 k/uL (150-450); RBC 4.45 m/uL (3.80-5.40); RDW 13.6 % (11.5-15.5); WBC 9.8 k/uL (3.8-10.6)
[2024-01-05 05:48] LABS: INR 1.1 (<1.2); Partial Thromboplastin Time 22.5 sec (22.0-30.0); Prothrombin Time 11.6 sec (10.0-12.5)
[2024-01-05 05:51] LABS: ALT 26 U/L (4-34); AST 40 U/L (14-36); African American GFR (CKD) 64 (>60 ml/min/1.73 sqM); Albumin 4.2 g/dL (3.5-5.0); Alkaline Phosphatase 102 U/L (38-126); Anion Gap 6 mmol/L; Blood Urea Nitrogen 57 mg/dL (7-17); Calcium 9.6 mg/dL (8.4-10.2); Carbon Dioxide 33 mmol/L (22-30); Chloride 91 mmol/L (98-107); Magnesium 2.2 mg/dL (1.6-2.3); Non-African American GFR(CKD) 55 (>60 ml/min/1.73 sqM); Sodium 130 mmol/L (137-145); Total Protein 7.7 g/dL (6.3-8.2)
[2024-01-05 06:05] LABS: Potassium 5.3 mmol/L (3.5-5.1)
--- NOTE | 2024-01-05 06:05 | XR ---
EXAMINATION TYPE: XR shoulder limited LT, XR humerus LT DATE OF EXAM: 01/05/2024 CLINICAL HISTORY: Pain after fall. TECHNIQUE: 2 views of the left shoulder are obtained. 2 views left humerus. COMPARISON: Prior left shoulder x-rays 2012. FINDINGS: There is no acute displaced fracture evident in the left shoulder. The acromioclavicular and glenohumeral joint spaces appear within normal limits. No acute displaced fracture of the left hu merus. The visualized ribs are intact. A peripheral IV at the left elbow level is noted. IMPRESSION: There is no acute fracture or dislocation in the left humerus or shoulder. [facility], , 01/05/2024 6:02 AM
[2024-01-05 06:06] LABS: Glucose 675 mg/dL (74-99)
--- NOTE | 2024-01-05 06:06 | XR ---
EXAMINATION TYPE: XR scapula RT DATE OF EXAM: 01/05/2024 CLINICAL HISTORY: Fall with medial scapular pain. TECHNIQUE: 2 views of the right scapula are obtained. COMPARISON: None. FINDINGS: No acute displaced fracture in the right scapula is seen. Visualized right ribs are intact. Visualized right lung is clear. Overlying soft tissues are unremarkable. IMPRESSION: There is no acute displaced fracture of the right scapula. [facility], , 01/05/2024 6:03 AM
--- NOTE | 2024-01-05 06:08 | XR ---
EXAMINATION TYPE: XR Hip Bilateral and AP pelvis DATE OF EXAM: 01/05/2024 COMPARISON: CT abdomen and pelvis June 29, 2022 HISTORY: Bilateral hip pain and left posterior pelvic pain after fall injury. TECHNIQUE: A single AP view of the pelvis is obtained. Two views of the bilateral hips are obtained. FINDINGS: There is no acute displaced fracture evident in the pelvis or either hip. Surgical changes in the lumbar spine extends into the upper sacrum. Advanced degenerative change in the right hip red emonstrated with marked joint space loss and spurring. Metallic hardware from total left hip arthropl asty is redemonstrated and stable and satisfactory in position. Pubic symphysis is intact. Overlying soft tissue is unremarkable. IMPRESSION: There is no acute fracture or dislocation in the pelvis or either hip. [facility], , 01/05/2024 6:05 AM
[2024-01-05 06:15] LABS: Glucose,Whole Blood >600 mg/dL (70-110)
[2024-01-05] MEDS ORDERED: NALOXONE 0.4 MG/ML 1 ML VIAL IV PRN (06:55)
[2024-01-05] MEDS ORDERED: ONDANSETRON ODT 8 MG TAB.RAPDIS PO PRN (06:57)
[2024-01-05 07:06] LABS: VBG PH 7.47 (7.31-7.41)
[2024-01-05 07:35] LABS: Glucose,Whole Blood >600 mg/dL (70-110)
[2024-01-05] MEDS: INSULIN DETEMIR (LEVEMIR) 100 UNIT/ML SYR SQ SCH ×2 (07:44→18:28)
[2024-01-05] MEDS ORDERED: DEXTROSE 50% SYRINGE 50 ML IVP PRN ×2 (07:46)
[2024-01-05] MEDS: POTASSIUM CHLORIDE ER 20 MEQ TAB.ER PO SCH (07:59)
[2024-01-05] MEDS: ACETAMINOPHEN TAB 325 MG TAB PO PRN (08:00)
[2024-01-05] MEDS: INSULIN ASPART (NovoLOG) 100 UNIT/ML VIAL SQ SCH (08:01)
[2024-01-05] MEDS: LORATADINE 10 MG TAB PO SCH (08:01)
[2024-01-05] MEDS: MAGNESIUM OXIDE 400 MG TAB PO SCH (08:01)
[2024-01-05] MEDS: CALCIUM CARB-VIT D 500 MG-5 MCG TAB PO SCH (08:01)
[2024-01-05] MEDS: APIXABAN 5 MG TAB PO SCH (08:02)
[2024-01-05] MEDS: LINEZOLID 600 MG TAB PO SCH (08:02)
[2024-01-05] MEDS: DIGOXIN 125 MCG TAB PO SCH (08:02)
[2024-01-05] MEDS: BUMETANIDE 1 MG TAB PO SCH (08:03)
[2024-01-05 08:52] LABS: Glucose,Whole Blood 564 mg/dL (70-110)
[2024-01-05] MEDS: oxyCODONE-APAP 7.5-325MG 1 EACH TAB PO SCH (11:03)
[2024-01-05] MEDS: GABAPENTIN 400 MG CAP PO SCH (11:03)
[2024-01-05 11:40] LABS: Appearance,Urine Clear (Clear); Bacteria,Urine Rare /hpf; Bilirubin,Urine Negative (Negative); Blood,Urine Negative (Negative); Budding Yeast,Urine Rare /hpf; Color,Urine Colorless; Glucose,Urine (UA) 4+ (Negative); Ketones,Urine Negative (Negative); Leukocyte Esterase,Urine Trace (Negative); Mucus,Urine Rare /hpf; Nitrite,Urine Negative (Negative); Protein,Urine Negative (Negative); RBC,Urine 1 /hpf (0-5); Specific Gravity,Urine 1.013 (1.001-1.035); Squamous Epithelial Cell,Urine 1 /hpf (0-4); Urobilinogen,Urine <2.0 mg/dL (<2.0); WBC,Urine 4 /hpf (0-5)
[2024-01-05 12:48] LABS: Glucose,Whole Blood 386 mg/dL (70-110)
--- NOTE | 2024-01-05 12:51 | P.HPIM ---
History of Present Illness H&P Date: 01/05/24 Chief Complaint: Hyperglycemia with immobility The patient is an 83-year-old white female with known history of diabetes COPD atrial fibrillation and poorly controlled diabetes who recently lost her to long-term illness. She has been living home with minimal assistance and fell. Injury is noted but evaluation in the emergency room did show up, other than immobility, diabetes which was uncontrolled. Review of Systems Constitutional: Denies chills, Denies fever Eyes: denies blurred vision, denies pain Ears, nose, mouth and throat: Denies headache, Denies sore throat Cardiovascular: Denies chest pain, Denies shortness of breath Neurological: Reports balance difficulties Psychiatric: Reports anhedonia, Denies anxiety, Denies depression Past Medical History Past Medical History: Atrial Fibrillation, Coronary Artery Disease (CAD), Cancer, Diabetes Mellitus, Hyperlipidemia, Hypertension, Musculoskeletal Disorder, Neurologic Disorder, Osteoarthritis (OA), Pneumonia, Renal Disease, Rheumatoid Arthritis (RA), Skin Disorder, Thyroid Disorder Additional Past Medical History / Comment(s): Morbid obesity, chronic atrial fibrillation, diabetes mellitus type 2, hypertension, hyperlipidemia, spinal stenosis, osteoarthritis, hypothyroidism, hypertension, history of skin melanoma, history of bursitis with MRSA post I&D, rheumatoid arthritis, Sjogren's disease, 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 without any indication of ILD related to RA, Fall on July 22 transfer to [facility] for MRI, then Fall on 11/16/21 History of Any Multi-Drug Resistant Organisms: MRSA Date of last positivie culture/infection: 09/02/22 MDRO Source:: Right Leg Past Surgical History: Back Surgery, Breast Surgery, Cholecystectomy, Heart Catheterization, Joint Replacement, Orthopedic Surgery Additional Past Surgical History / Comment(s): Bilateral cataracts with lens implants, arthroscopies to lt wrist, gualberto knees, gualberto ankles, gualberto hips, lt hip replacment and redone, L/R shoulder sxs, rt breast bx-benign, egd/colonoscopy, skin cancer removal L arm, Lumbar fixnation possible broken Past Anesthesia/Blood Transfusion Reactions: No Reported Reaction Additional Past Anesthesia/Blood Transfusion Reaction / Comment(s): Pt has been told not to have anesthesia metabolized by the kidneys and has neurologic Sjogren's with post anesthesia paralysis. Past Psychological History: No Psychological Hx Reported Smoking Status: Unknown if ever smoked Past Alcohol Use History: None Reported Past Drug Use History: None Reported - Past Family History Mother Family Medical History: CVA/TIA Additional Family Medical History / Comment(s): RUPTURED BOWEL Father Family Medical History: Cancer, Pneumonia Additional Family Medical History / Comment(s): ASPIRATIVE PNA Sister(s) Additional Family Medical History / Comment(s): at age 34 with lupus Medications and Allergies Home Medications Medication Instructions Recorded Confirmed Type RX: Latanoprost [Xalatan 0.005%] 1 drop BOTH EYES HS@0000 08/11/17 01/05/24 History RX: predniSONE 10 mg PO DAILY@0800 07/23/21 01/05/24 History RX: Calcium Citrate/Vitamin D3 1 tab PO BID@0800,1800 11/16/21 01/05/24 History [Citracal + D Maximum Caplet] RX: Digoxin [Lanoxin] 125 mcg PO Q48H 11/16/21 01/05/24 History RX: Nitroglycerin Sl Tabs 0.4 mg SL Q5M PRN 11/16/21 01/05/24 History [Nitrostat] RX: Adalimumab [Humira(Cf) Pen] 40 mg SQ Q14D 01/09/22 01/05/24 History RX: Apixaban [Eliquis] 5 mg PO BID@0800,1800 05/02/22 01/05/24 History RX: INSULIN LISPRO (HumaLOG) 6 units SQ AC-TID 05/02/22 01/05/24 History [humaLOG] RX: INSULIN LISPRO (HumaLOG) See Protocol SQ AC-TID 05/02/22 01/05/24 History [humaLOG] RX: Multivit-Min/FA/Lycopen/Lutein 1 tab PO DAILY@0800 05/02/22 01/05/24 History [Centrum Silver Tablet] RX: Levothyroxine Sodium 150 mcg PO HS@0000 09/02/22 01/05/24 History [Synthroid] RX: traZODone HCL [Desyrel] 50 mg PO HS@0000 12/15/22 01/05/24 History RX: Tolterodine ER [Detrol LA] 4 mg PO DAILY@1200 05/15/23 01/05/24 History RX: metFORMIN HCL [Glucophage] 500 mg PO DAILY@1800 05/25/23 01/05/24 History RX: Acetaminophen Tab [Tylenol] 500 mg PO QID@00,,12,18 11/23/23 01/05/24 History RX: Bumetanide [BUMEX] 2 mg PO BID@0800,1800 11/23/23 01/05/24 History RX: Gabapentin [Neurontin] 400 mg PO QID@00,06,12,18 11/23/23 01/05/24 History RX: Insulin Glargine,Hum.rec.anlog 24 units SQ DAILY@179911/23/23 01/05/24 History [Lantus Solostar Pen] RX: Insulin Glargine,Hum.rec.anlog 34 units SQ DAILY@79911/23/23 01/05/24 History [Lantus Solostar Pen] RX: Loratadine [Claritin] 10 mg PO DAILY@0811/23/23 01/05/24 History RX: Magnesium Oxide [Mag-Ox] 250 mg PO DAILY@79911/23/23 01/05/24 History RX: Ondansetron Odt [Zofran ODT] 8 mg PO TID PRN 11/23/23 01/05/24 History RX: Potassium Chloride ER [K-Dur 20 meq PO BID@0800,1800 11/23/23 01/05/24 History 20] RX: Semaglutide [Ozempic] 0.5 mg SQ FR 11/23/23 01/05/24 History RX: oxyCODONE-APAP 7.5-325MG 1 tab PO QID@00,,12,18 30 Days 12/25/23 01/05/24 Rx [Percocet 7.5-325 mg] #120 tab Linezolid [Zyvox] 600 mg PO Q12H #20 tab 12/27/23 01/05/24 Rx SILVER sulfADIAZINE Cream 1 applic TOPICAL DAILY 01/05/24 01/05/24 History [Silvadene 1% Cream] methocarbamoL [Robaxin-750] 750 mg PO QID@00,06,12,18 01/05/24 01/05/24 History Allergies Allergy/AdvReac Type Severity Reaction Status Date / Time adhesive Allergy Rash/Hives Verified 01/05/24 07:20 cephalexin [From Keflex] Allergy Rash/Hives Verified 01/05/24 07:20 grass pollen Allergy Unknown Verified 01/05/24 07:20 mold Allergy Unknown Verified 01/05/24 07:20 newspaper ink Allergy Mild Unknown Uncoded 01/05/24 07:20 Physical Exam Vitals: Vital Signs Temp Pulse Resp BP Pulse Ox 01/05/24 09:54 83 20 134/92 98 01/05/24 05:59 96 16 151/68 95 01/05/24 04:14 98.4 F 97 16 149/69 97 Intake and Output 01/04/24 01/05/24 01/05/24 22:59 06:59 14:59 Other: Weight 115.666 kg - Constitutional General appearance: morbidly obese - EENT Eyes: EOMI - Neck Neck: no lymphadenopathy - Respiratory Respiratory: bilateral: CTA - Cardiovascular Rhythm: irregularly irregular Heart sounds: normal: S1, S2 Abnormal Heart Sounds: no S3 Gallop - Gastrointestinal General gastrointestinal: soft, no tenderness - Musculoskeletal Musculoskeletal: generalized weakness - Psychiatric Psychiatric: appropriate affect Results CBC & Chem 7: 01/05/24 05:30 01/05/24 05:30 Labs: Abnormal Lab Results - Last 24 Hours (Table) 01/05/24 01/05/24 01/05/24 Range/Units 05:30 06:14 07:00 VBG pH 7.47 H (7.31-7.41) VBG HCO3 31 H (24-28) mmol/L Sodium 130 L (137-145) mmol/L Potassium 5.3 H (3.5-5.1) mmol/L Chloride 91 L (98-107) mmol/L Carbon Dioxide 33 H (22-30) mmol/L BUN 57 H (7-17) mg/dL Glucose 675 H* (74-99) mg/dL POC Glucose (mg/dL) >600 H* (70-110) mg/dL AST 40 H (14-36) U/L Urine Glucose (UA) (Negative) Ur Leukocyte Esterase (Negative) Urine Bacteria (None) /hpf Urine Mucus (None) /hpf Urine Yeast (Budding) (None) /hpf 01/05/24 01/05/24 01/05/24 Range/Units 07:33 08:48 11:00 VBG pH (7.31-7.41) VBG HCO3 (24-28) mmol/L Sodium (137-145) mmol/L Potassium (3.5-5.1) mmol/L Chloride (98-107) mmol/L Carbon Dioxide (22-30) mmol/L BUN (7-17) mg/dL Glucose (74-99) mg/dL POC Glucose (mg/dL) >600 H* 564 H* (70-110) mg/dL AST (14-36) U/L Urine Glucose (UA) 4+ H (Negative) Ur Leukocyte Esterase Trace H (Negative) Urine Bacteria Rare H (None) /hpf Urine Mucus Rare H (None) /hpf Urine Yeast (Budding) Rare H (None) /hpf Assessment and Plan (1) Gait abnormality Current Visit: Yes Status: Acute Code(s): R26.9 - UNSPECIFIED ABNORMALITIES OF GAIT AND MOBILITY SNOMED Code(s): 38556608 (2) Fall Current Visit: Yes Status: Acute Code(s): W19.XXXA - UNSPECIFIED FALL, INITIAL ENCOUNTER SNOMED Code(s): 8445687 (3) Diabetes Current Visit: No Status: Acute Code(s): E11.9 - TYPE 2 DIABETES MELLITUS WITHOUT COMPLICATIONS SNOMED Code(s): 67995449 (4) Generalized weakness Current Visit: No Status: Acute Code(s): R53.1 - WEAKNESS SNOMED Code(s): 52578996 (5) Gout Current Visit: No Status: Acute Code(s): M10.9 - GOUT, UNSPECIFIED SNOMED Code(s): 75296924 (6) MRSA (methicillin resistant staphylococcus aureus) pneumonia Current Visit: No Status: Acute Code(s): J15.212 - PNEUMONIA DUE TO METHICILLIN RESISTANT STAPHYLOCOCCUS AUREUS SNOMED Code(s): 244194399388558 (7) Persistent atrial fibrillation Current Visit: No Status: Acute Code(s): I48.19 - OTHER PERSISTENT ATRIAL FIBRILLATION SNOMED Code(s): 410595116 Plan: We will reconcile home medications. [facility] physical therapy. Diabetes control. Discharge planning. Due to her generalized weakness, she is agreeable to rehab/ECF CBC and CMP in a.m. Time with Patient: Greater than 30
[2024-01-05 18:17] LABS: Glucose,Whole Blood 347 mg/dL (70-110)
[2024-01-05 21:32] LABS: Glucose,Whole Blood 277 mg/dL (70-110)
[2024-01-05] MEDS: LEVOTHYROXINE 75 MCG TAB PO SCH (23:16)
[2024-01-05] MEDS: traZODone HCL 50 MG TAB PO SCH (23:16)
[2024-01-05] MEDS: LATANOPROST 0.005% OPHTH DROPS 2.5 ML BTL BOTH EYES SCH (23:16)
[2024-01-06] MEDS: methocarbamoL 750 MG TAB PO SCH (00:19)
[2024-01-06 06:31] LABS: Glucose,Whole Blood 278 mg/dL (70-110)
[2024-01-06 10:35] LABS: Glucose,Whole Blood 248 mg/dL (70-110)
[2024-01-06 11:25] LABS: HCT 41.4 % (37.2-46.3); HGB 13.4 g/dL (12.0-15.0); MCH 31.1 pg (27.0-32.0); MCHC 32.4 g/dL (32.0-37.0); MCV 96.1 FL (80.0-97.0); Mean Platelet Volume 11.2 FL (9.5-12.2); NRBC Per 100 WBC 0 X 10*3/uL (0.00-0.01); Platelet Count 166 X 10*3/uL (140-440); RBC 4.31 X 10*6/uL (4.10-5.20); RDW 13.5 % (11.5-14.5); WBC 11.45 X 10*3/uL (4.50-10.00)
[2024-01-06 11:28] LABS: BUN/Creat Ratio 34.22 Ratio (12.00-20.00); Blood Urea Nitrogen 30.8 mg/dL (9.0-27.0); Chloride 94 mmol/L (96-109); Glucose 268 mg/dL (70-110); Potassium 4.2 mmol/L (3.5-5.5); Sodium 138 mmol/L (135-145)
[2024-01-06 11:29] LABS: ALT 20 U/L (8-44); AST 25 U/L (13-35); Albumin 3.8 g/dL (3.8-4.9); Albumin/Globulin Ratio 1.23 Ratio (1.60-3.17); Alkaline Phosphatase 98 U/L (41-126); Calcium 9.6 mg/dL (8.7-10.3); Carbon Dioxide 28.9 mmol/L (21.6-31.8); Globulin 3.1 g/dL (1.6-3.3); Total Bilirubin 0.7 mg/dL (0.3-1.2); Total Protein 6.9 g/dL (6.2-8.2)
[2024-01-06 11:43] LABS: Glucose,Whole Blood 245 mg/dL (70-110)
--- NOTE | 2024-01-06 16:17 | P.PN ---
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 Patient is afebrile, heart rate 80, respiratory rate 17, blood pressure 161/63, saturating 100% on room air. Imaging studies including lower upper extremity x-rays, hip and pelvis x-rays negative for acute process. CT head and cervical spine negative for acute process. Assessment and plan: Generalized weakness: Recurrent falls: Deconditioning: Presented with generalized weakness, recurrent falls, progressive deconditioning Imaging studies including CT head, cervical spine negative for acute process X-rays upper lower extremities upper extremities, hip and pelvics negative for any acute process. Fall precautions Continue home meds Monitor vitals PT/OT consult Case management consult Anticipate subacute rehab placement Paroxysmal atrial fibrillation: Continue digoxin, Eliquis. Chronic diastolic CHF Continue home meds Continue Bumex Euvolemic Diabetes mellitus: Accu-Cheks, diabetic diet Lantus NovoLog scale Recent left ankle cellulitis: Resume Zyvox Chronic pain syndrome: Continue home meds DVT prophylaxis: Anticoagulated Monitor vital signs and labs Labs and medication were reviewed. Continue same treatment. Further recommendations as per clinical course of the patient PHYSICAL EXAMINATION: GENERAL: The patient is A&O x3, NAD HEENT: EOMI, Sclerae anicteric, Moist Mucous membranes Neck: Supple, Non tender, No JVD PULMONARY: Equal breath souds B/L, No wheezing, No crackles. CARDIOVASCULAR: S1, S2 present. No murmurs, rubs, or gallops. ABDOMEN: Soft, nontender, nondistended, normoactive bowel sounds. No guarding or rebound tenderness. MUSCULOSKELETAL: No edema, No cyanosis. No clubbing. Normal ROM. Intact peripheral pulses. EXTREMITIES: No cyanosis, clubbing, or pedal edema. NEUROLOGICAL: CN 2-12 grossly intact. No FND Skin: No Rash REVIEW OF SYSTEMS: CONSTITUTIONAL: Generalized weakness, generalized bodyaches CARDIOVASCULAR: No chest pain, palpitations or syncope. PULMONARY: No shortness of breath, no cough, sore throat. GASTROINTESTINAL: No nausea, vomiting, diarrhea, abdominal pain. : No Dysuria, urgency, frequency. Extremities: No edema. NEUROLOGICAL: No headaches, no weakness, or numbness Dictation was produced using [employer] dictation software. please excuse any grammatical, word or spelling errors. Objective - Vital Signs Vital signs: Vital Signs Temp 97.5 F L 01/06/24 13:52 Pulse 80 01/06/24 13:52 Resp 18 01/06/24 14:01 BP 161/63 01/06/24 13:52 Pulse Ox 100 01/06/24 13:52 FiO2 Intake & Output 01/05/24 01/06/24 01/06/24 18:59 06:59 18:59 Intake Total 200 Output Total 500 Balance -500 200 Weight 115.666 kg Intake: Oral 200 Output: Urine 500 Other: Voiding Method Diaper Diaper Incontinent Incontinent External Catheter External Catheter # Voids 1 - Labs CBC & Chem 7: 01/06/24 04:32 01/06/24 04:32 Labs: Abnormal Lab Results - Last 24 Hours (Table) 01/05/24 01/05/24 01/06/24 Range/Units 18:05 21:31 04:32 WBC (4.50-10.00) X 10*3/uL Chloride (96-109) mmol/L Anion Gap (4.00-12.00) mmol/L BUN (9.0-27.0) mg/dL BUN/Creatinine Ratio (12.00-20.00) Ratio Glucose (70-110) mg/dL POC Glucose (mg/dL) 347 H 277 H (70-110) mg/dL Hemoglobin A1c 11.0 H (<=6.0) % Albumin/Globulin Ratio (1.60-3.17) Ratio 01/06/24 01/06/24 01/06/24 Range/Units 04:32 04:32 06:29 WBC 11.45 H (4.50-10.00) X 10*3/uL Chloride 94 L (96-109) mmol/L Anion Gap 15.10 H (4.00-12.00) mmol/L BUN 30.8 H (9.0-27.0) mg/dL BUN/Creatinine Ratio 34.22 H (12.00-20.00) Ratio Glucose 268 H (70-110) mg/dL POC Glucose (mg/dL) 278 H (70-110) mg/dL Hemoglobin A1c (<=6.0) % Albumin/Globulin Ratio 1.23 L (1.60-3.17) Ratio 01/06/24 01/06/24 Range/Units 10:33 11:42 WBC (4.50-10.00) X 10*3/uL Chloride (96-109) mmol/L Anion Gap (4.00-12.00) mmol/L BUN (9.0-27.0) mg/dL BUN/Creatinine Ratio (12.00-20.00) Ratio Glucose (70-110) mg/dL POC Glucose (mg/dL) 248 H 245 H (70-110) mg/dL Hemoglobin A1c (<=6.0) % Albumin/Globulin Ratio (1.60-3.17) Ratio
[2024-01-06 16:26] LABS: Glucose,Whole Blood 357 mg/dL (70-110)
[2024-01-06 21:21] LABS: Glucose,Whole Blood 371 mg/dL (70-110)
[2024-01-07] MEDS: oxyCODONE-APAP 7.5-325MG 1 EACH TAB PO PRN (00:38)
[2024-01-07 06:24] LABS: Glucose,Whole Blood 214 mg/dL (70-110)
--- NOTE | 2024-01-07 14:02 | P.PN ---
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 Patient is afebrile, heart rate 80, respiratory rate 17, blood pressure 161/63, saturating 100% on room air. Imaging studies including lower upper extremity x-rays, hip and pelvis x-rays negative for acute process. CT head and cervical spine negative for acute process. 01/07/2024 Patient was seen and examined today. Patient noncooperative, paranoid today, refused to take her medications, threatening to leave AMA. Afebrile, heart rate 81, respiratory rate 16, blood pressure 133/63, saturating 99% on 2 L. Assessment and plan: Generalized weakness: Recurrent falls: Deconditioning: Acute encephalopathy: Metabolic Presented with generalized weakness, recurrent falls, progressive deconditioning Imaging studies including CT head, cervical spine negative for acute process X-rays upper lower extremities upper extremities, hip and pelvics negative for any acute process. Fall precautions Continue home meds Monitor vitals PT/OT consult Case management consult Anticipate subacute rehab placement Paroxysmal atrial fibrillation: Continue digoxin, Eliquis. Chronic diastolic CHF Continue home meds Continue Bumex Euvolemic Diabetes mellitus: Accu-Cheks, diabetic diet Lantus NovoLog scale Recent left ankle cellulitis: Resume Zyvox Chronic pain syndrome: Continue home meds DVT prophylaxis: Anticoagulated Monitor vital signs and labs Labs and medication were reviewed. Continue same treatment. Further recommendations as per clinical course of the patient PHYSICAL EXAMINATION: GENERAL: The patient is A&O x2, NAD HEENT: EOMI, Sclerae anicteric, Moist Mucous membranes Neck: Supple, Non tender, No JVD PULMONARY: Equal breath souds B/L, No wheezing, No crackles. CARDIOVASCULAR: S1, S2 present. No murmurs, rubs, or gallops. ABDOMEN: Soft, nontender, nondistended, normoactive bowel sounds. No guarding or rebound tenderness. MUSCULOSKELETAL: No edema, No cyanosis. No clubbing. Normal ROM. Intact peripheral pulses. EXTREMITIES: No cyanosis, clubbing, or pedal edema. NEUROLOGICAL: CN 2-12 grossly intact. No FND Skin: No Rash REVIEW OF SYSTEMS: CONSTITUTIONAL: Generalized weakness, generalized bodyaches CARDIOVASCULAR: No chest pain, palpitations or syncope. PULMONARY: No shortness of breath, no cough, sore throat. GASTROINTESTINAL: No nausea, vomiting, diarrhea, abdominal pain. : No Dysuria, urgency, frequency. Extremities: No edema. NEUROLOGICAL: No headaches, no weakness, or numbness Dictation was produced using [employer] dictation software. please excuse any grammatical, word or spelling errors. Objective - Vital Signs Vital signs: Vital Signs Temp 97.5 F L 01/07/24 06:44 Pulse 81 01/07/24 06:44 Resp 16 01/07/24 06:44 BP 133/63 01/07/24 06:44 Pulse Ox 99 01/07/24 06:44 FiO2 Intake & Output 01/06/24 01/07/24 01/07/24 18:59 06:59 18:59 Intake Total 300 Output Total 600 900 Balance -300 -900 Intake: Oral 300 Output: Urine 600 900 Other: Voiding Method Diaper External Catheter Incontinent External Catheter # Voids 1 - Labs CBC & Chem 7: 01/06/24 04:32 01/06/24 04:32 Labs: Abnormal Lab Results - Last 24 Hours (Table) 01/06/24 01/06/24 01/07/24 Range/Units 16:25 21:20 06:22 POC Glucose (mg/dL) 357 H 371 H 214 H (70-110) mg/dL
[2024-01-07] MEDS: OLANZapine 10 MG VIAL IM STA (14:19)
[2024-01-07 20:43] LABS: Glucose,Whole Blood 432 mg/dL (70-110)
[2024-01-08 06:31] LABS: Glucose,Whole Blood 254 mg/dL (70-110)
--- NOTE | 2024-01-08 08:33 | P.PN ---
Subjective Progress Note Date: 01/08/24 This is an 83-year-old female who presented to the emergency department after a fall at home. Patient recently lost her and has been living alone for the last week. CT and x-rays were negative on admission. Blood sugar elevated on admission, over 600. Patient has been uncooperative with nursing staff, and at times refusing to take her medications. This morning patient is seen laying in bed with sitter at bedside. This morning she appears calm and cooperative. Vitals are stable. Blood sugar still elevated. Objective - Vital Signs Vital signs: Vital Signs Temp 98.4 F 01/08/24 01:40 Pulse 90 01/08/24 03:51 Resp 19 01/08/24 01:40 BP 161/51 01/08/24 01:40 Pulse Ox 95 01/08/24 01:40 FiO2 Intake & Output 01/07/24 01/08/24 01/08/24 18:59 06:59 18:59 Output Total 150 Balance -150 Output: Urine 150 Other: Voiding Method External Catheter Bedside Commode External Catheter # Voids 1 1 - Constitutional General appearance: Present: cooperative, no acute distress - EENT Eyes: Present: PERRLA - Neck Neck: Present: normal ROM. Absent: lymphadenopathy, rigidity - Respiratory Respiratory: bilateral: CTA - Cardiovascular Rhythm: irregularly irregular Heart sounds: normal: S1, S2 - Gastrointestinal General gastrointestinal: Present: soft. Absent: tenderness - Integumentary Integumentary: Present: normal, normal turgor - Musculoskeletal Musculoskeletal: Present: generalized weakness - Psychiatric Psychiatric: Present: A&O x's 3 - Labs CBC & Chem 7: 01/06/24 04:32 01/06/24 04:32 Labs: Abnormal Lab Results - Last 24 Hours (Table) 01/07/24 01/08/24 Range/Units 20:41 06:29 POC Glucose (mg/dL) 432 H 254 H (70-110) mg/dL Assessment and Plan (1) Fall Current Visit: Yes Status: Acute Code(s): W19.XXXA - UNSPECIFIED FALL, INITIAL ENCOUNTER SNOMED Code(s): 5742925 (2) Gait abnormality Current Visit: Yes Status: Acute Code(s): R26.9 - UNSPECIFIED ABNORMALITIES OF GAIT AND MOBILITY SNOMED Code(s): 77731194 (3) Atrial fibrillation Current Visit: No Status: Acute Code(s): I48.91 - UNSPECIFIED ATRIAL FIBRILLATION SNOMED Code(s): 44768422 (4) CAD (coronary artery disease) Current Visit: No Status: Acute Code(s): I25.10 - ATHSCL HEART DISEASE OF [place] CORONARY ARTERY W/O ANG PCTRS SNOMED Code(s): 60982724 (5) Chronic pain Current Visit: No Status: Acute Code(s): G89.29 - OTHER CHRONIC PAIN SNOMED Code(s): 52289250 (6) Diabetes Current Visit: No Status: Acute Code(s): E11.9 - TYPE 2 DIABETES MELLITUS WITHOUT COMPLICATIONS SNOMED Code(s): 56839609 (7) Generalized weakness Current Visit: No Status: Acute Code(s): R53.1 - WEAKNESS SNOMED Code(s): 41728862 (8) Hyperlipidemia Current Visit: No Status: Acute Code(s): E78.5 - HYPERLIPIDEMIA, UNSPECIFIED SNOMED Code(s): 40983222 (9) Hypertension Current Visit: No Status: Acute Code(s): I10 - ESSENTIAL (PRIMARY) HYPER TENSION SNOMED Code(s): 95545119 Plan: Check CBC and CMP in the morning. Will increase insulin dose. Await recommendations from physical therapy and care management regarding discharge plan. Patient seen and evaluated by nurse practitioner, physician in agreement with plan.
[2024-01-08] MEDS: INSULIN DETEMIR (LEVEMIR) 100 UNIT/ML SYR SQ SCH ×2 (10:11→19:00)
[2024-01-08 11:43] LABS: Glucose,Whole Blood 218 mg/dL (70-110)
[2024-01-08] MEDS ORDERED: DOCUSATE 100 MG CAP PO PRN (13:53)
[2024-01-08] MEDS: NITROGLYCERIN SL TABS 0.4 MG TAB SUBLINGUAL PRN (14:53)
[2024-01-08] MEDS: MAGNESIUM HYDROXIDE 2,400 MG/30 ML CUP PO PRN (14:58)
[2024-01-08 16:44] LABS: Glucose,Whole Blood 239 mg/dL (70-110)
[2024-01-08 20:57] LABS: Glucose,Whole Blood 252 mg/dL (70-110)
[2024-01-09 06:53] LABS: Glucose,Whole Blood 262 mg/dL (70-110)
[2024-01-09 08:24] LABS: HGB 13.7 g/dL (12.0-15.0); MCH 31.6 pg (27.0-32.0); MCHC 32.6 g/dL (32.0-37.0); Mean Platelet Volume 11.3 FL (9.5-12.2); NRBC Per 100 WBC 0 X 10*3/uL (0.00-0.01); Platelet Count 147 X 10*3/uL (140-440); RBC 4.33 X 10*6/uL (4.10-5.20); RDW 13.4 % (11.5-14.5); WBC 8.69 X 10*3/uL (4.50-10.00)
--- NOTE | 2024-01-09 08:49 | P.PN ---
Subjective Progress Note Date: 01/09/24 This is an 83-year-old female who presented to the emergency department after a fall at home. Patient recently lost her and has been living alone for the last week. CT and x-rays were negative on admission. Blood sugar elevated on admission, over 600. Patient has been uncooperative with nursing staff, and at times refusing to take her medications. This morning patient is seen laying in bed with sitter at bedside. This morning she appears calm and cooperative. Vitals are stable. Blood sugar still elevated. 01/09/2024 Patient seen and evaluated laying in bed with sitter present. Yesterday patient made comments to nursing staff about not wanting to be alive anymore. Neurology and psych have been consulted. This morning patient seems confused as to why she is here and doesn't remember any of her behaviors from yesterday and over the weekend. Physical therapy is recommending rehab for discharge. Patient's blood sugar readings are improving. Also of note, this morning patient states she fell at home on leaves on her front porch, per the ER notes, patient told them she fell getting out of bed when she got up to use the bathroom. Objective - Vital Signs Vital signs: Vital Signs Temp 98.2 F 01/09/24 01:29 Pulse 82 01/09/24 01:29 Resp 17 01/09/24 01:29 BP 136/59 01/09/24 01:29 Pulse Ox 96 01/09/24 01:29 FiO2 Intake & Output 01/08/24 01/09/24 01/09/24 18:59 06:59 18:59 Other: Voiding Method External Catheter Bedside Commode # Voids 1 2 - Constitutional General appearance: Present: cooperative, no acute distress - EENT Eyes: Present: PERRLA - Neck Neck: Present: normal ROM. Absent: lymphadenopathy, rigidity - Respiratory Respiratory: bilateral: CTA - Cardiovascular Rhythm: irregularly irregular Heart sounds: normal: S1, S2 - Gastrointestinal General gastrointestinal: Present: soft. Absent: tenderness - Musculoskeletal Musculoskeletal: Present: generalized weakness - Psychiatric Psychiatric Comment(s): alert and oriented but confused at times - Labs CBC & Chem 7: 01/09/24 02:43 01/06/24 04:32 Labs: Abnormal Lab Results - Last 24 Hours (Table) 01/08/24 01/08/24 01/08/24 Range/Units 11:41 16:43 20:55 POC Glucose (mg/dL) 218 H 239 H 252 H (70-110) mg/dL 01/09/24 Range/Units 06:51 POC Glucose (mg/dL) 262 H (70-110) mg/dL Assessment and Plan (1) Fall Current Visit: Yes Status: Acute Code(s): W19.XXXA - UNSPECIFIED FALL, INITIAL ENCOUNTER SNOMED Code(s): 9804031 (2) Gait abnormality Current Visit: Yes Status: Acute Code(s): R26.9 - UNSPECIFIED ABNORMALITIES OF GAIT AND MOBILITY SNOMED Code(s): 09102628 (3) Atrial fibrillation Current Visit: No Status: Acute Code(s): I48.91 - UNSPECIFIED ATRIAL FIBRILLATION SNOMED Code(s): 93080273 (4) CAD (coronary artery disease) Current Visit: No Status: Acute Code(s): I25.10 - ATHSCL HEART DISEASE OF [place] CORONARY ARTERY W/O ANG PCTRS SNOMED Code(s): 88044245 (5) Chronic pain Current Visit: No Status: Acute Code(s): G89.29 - OTHER CHRONIC PAIN SNOMED Code(s): 27857689 (6) Diabetes Current Visit: No Status: Acute Code(s): E11.9 - TYPE 2 DIABETES MELLITUS WITHOUT COMPLICATIONS SNOMED Code(s): 51752815 (7) Generalized weakness Current Visit: No Status: Acute Code(s): R53.1 - WEAKNESS SNOMED Code(s): 89755260 (8) Hyperlipidemia Current Visit: No Status: Acute Code(s): E78.5 - HYPERLIPIDEMIA, UNSPECIFIED SNOMED Code(s): 75234773 (9) Hypertension Current Visit: No Status: Acute Code(s): I10 - ESSENTIAL (PRIMARY) HYPERTENSION SNOMED Code(s): 05334288 (10) Confusion Current Visit: Yes Status: Acute Code(s): R41.0 - DISORIENTATION, UNSPECIFIED SNOMED Code(s): 684966339 (11) Depression Current Visit: Yes Status: Acute Code(s): F32.A - DEPRESSION, UNSPECIFIED SNOMED Code(s): 65183495 Plan: Will increase insulin dose, blood sugar readings continue to improve. Await recommendations from neurology and psych. Patient seen and evaluated by nurse practitioner, physician in agreement with plan.
[2024-01-09 09:27] LABS: ALT 19 U/L (8-44); AST 28 U/L (13-35); Albumin 3.6 g/dL (3.8-4.9); Albumin/Globulin Ratio 1.09 Ratio (1.60-3.17); Alkaline Phosphatase 99 U/L (41-126); BUN/Creat Ratio 22.22 Ratio (12.00-20.00); Calcium 9.5 mg/dL (8.7-10.3); Carbon Dioxide 29.3 mmol/L (21.6-31.8); Chloride 95 mmol/L (96-109); Globulin 3.3 g/dL (1.6-3.3); Glucose 185 mg/dL (70-110); Potassium 4.2 mmol/L (3.5-5.5); Sodium 137 mmol/L (135-145); Total Bilirubin 0.5 mg/dL (0.3-1.2); Total Protein 6.9 g/dL (6.2-8.2)
[2024-01-09 11:54] LABS: Glucose,Whole Blood 158 mg/dL (70-110)
--- NOTE | 2024-01-09 15:02 | P.CN ---
Psychiatric Consult - . Consult date: 01/09/24 Consult:: 01/09/24 14:56 IDENTIFYING DATA: This patient is a 83-year-old female with no past psych history, living at home alone REASON FOR REFERRAL: Psychiatry was consulted for depression, suicidal ideations HISTORY OF PRESENT ILLNESS: The patient presented to the hospital after a fall at home. Imaging came back negative. Patient reportedly made statements yesterday such as "I want to ". Patient seen and evaluated in room and was agreeable to speak to scientific writer. 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 She vehemently denies any suicidal thoughts today and denied any past suicide attempts. Patient notably offended when answering these questions, emphasizing "I like life" and "I have never been depressed in my life." Patient does report the recent passing of her of 44 years however she states "we all have to " when asked how her mood has been related to this. At this time patient denies any suicidal or homical ideations, intent or plan. Patient denies any auditory, visual hallucinations and denies any paranoia or delusions. PAST PSYCHIATRIC HISTORY: Patient denies any psychiatric history. Patient denies being on any psychiatric medications. Patient denies any previous psy chiatric hospitalizations. Patient denies any psychiatric outpatient follow-up. Patient denies any history of suicide attempts in the past. PAST MEDICAL HISTORY: Atrial Fibrillation, Coronary Artery Disease (CAD), Cancer, Diabetes Mellitus, Hyperlipidemia, Hypertension, Musculoskeletal Disorder, Neurologic Disorder, Osteoarthritis (OA), Pneumonia, Renal Disease, Rheumatoid Arthritis (RA), Skin Disorder, Thyroid Disorder ALLERGIES: as per EMR. CHEMICAL DEPENDENCY HISTORY: as per HPI. 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 She states having 2 children. MENTAL STATUS EXAM: General Appearance: Patient appears to be stated age is alert, pleasant, and cooperative. Patient appears to have fair hygiene and grooming wearing hospital gown with poor eye contact. Behavior: Patient is calmly lying in bed without any agitated behavior. Speech: Patient's speech is fluent and nonpressured. Mood/Affect: Patient reports their mood is "there is nothing wrong with me", affect is congruent, constricted Suicidality/Homicidality: Patient denies having any suicidal or homicidal ideation intent or plan. Perceptions: Patient denies any visual hallucinations and denies any auditory hallucinations Though content/process: There is no evidence of any delusional thought content and thought process is linear and goal-directed. Memory and concentration: AOX3, grossly intact for the purposes of this session. Can spell "WORLD" backwards Judgment and insight: Poor IMPRESSIONS: Depression, unspecified PLAN: -At this time patient DOES NOT meet criteria for inpatient psychiatric admission. -Would recommend the following medication changes/additions: none, patient declined any psychotropic medications at this time and does not want any outpatient services as well -Can discontinue 1:1 sitter at this time as patient is not currently an imminent threat to themselves -Psychiatry will sign off at this time -Please contact with any questions. 01/09/24 15:00
[2024-01-09 16:37] VITALS: BMI 31.8
[2024-01-09 17:06] LABS: Glucose,Whole Blood 253 mg/dL (70-110)
[2024-01-09] MEDS: INSULIN DETEMIR (LEVEMIR) 100 UNIT/ML SYR SQ SCH (17:50)
[2024-01-09 19:41] LABS: Glucose,Whole Blood 227 mg/dL (70-110)
[2024-01-10 06:13] LABS: Glucose,Whole Blood 170 mg/dL (70-110)
[2024-01-10] MEDS: INSULIN DETEMIR (LEVEMIR) 100 UNIT/ML SYR SQ SCH (07:25)
[2024-01-10 08:47] LABS: Chol/HDL Ratio 4.06 Ratio; LDL Cholesterol,Calculated 59.5 mg/dL (0.0-131.0)
--- NOTE | 2024-01-10 08:52 | P.DS ---
Providers Date of admission: 01/05/24 06:55 Attending physician: Nicholas Hart Consults: 01/08/24 15:34 Consult Physician Routine Consulting Provider: Jhoana Cuenca Consult Reason/Comments: altered mental status Do you want consulting provider notified?: Yes 01/08/24 15:36 Consult Physician Routine Consulting Provider: Kevin Veloz Consult Reason/Comments: depression, suicidal ideations Do you want consulting provider notified?: Yes Primary care physician: Nicholas Hart - Discharge Diagnosis(es) (1) Gait abnormality Current Visit: Yes Status: Acute (2) Fall Current Visit: Yes Status: Acute (3) Diabetes Current Visit: No Status: Acute (4) Generalized weakness Current Visit: No Status: Acute (5) Gout Current Visit: No Status: Acute (6) MRSA (methicillin resistant staphylococcus aureus) pneumonia Current Visit: No Status: Acute (7) Persistent atrial fibrillation Current Visit: No Status: Acute Hospital Course: The patient is an 83-year-old white female essentially admitted for fall with hypoglycemia and weakness. The patient was stabilized but, in my opinion, was going through significant grief related to the recent of her . She was very temperamental and needed a sitter for several days. Psychiatry was consulted and she is stable and competent at this time. She will be discharged to [facility] for appropriate rehabilitation to gain her strength and regain her physical independence. The patient will follow-up with me in 1 to 2 weeks Patient Condition at Discharge: Stable Plan - Discharge Summary New Discharge Prescriptions: New Docusate [Colace] 100 mg PO DAILY PRN cap PRN Reason: Constipation Insulin Detemir (Levemir) [Levemir] 42 unit SQ DAILY@0800 each Magnesium Hydroxide [Milk of Magnesia] 2,400 mg PO DAILY PRN ml PRN Reason: Constipation Insulin Detemir (Levemir) [Levemir] 30 unit SQ DAILY@1800 each Continue Latanoprost [Xalatan 0.005%] 1 drop BOTH EYES HS@0000 Calcium Citrate/Vitamin D3 [Citracal + D Maximum Caplet] 1 tab PO BID@0800,1800 Adalimumab [Humira(Cf) Pen] 40 mg SQ Q14D INSULIN LISPRO (HumaLOG) [humaLOG] 6 units SQ AC-TID Levothyroxine Sodium [Synthroid] 150 mcg PO HS@0000 traZODone HCL [Desyrel] 50 mg PO HS@0000 metFORMIN HCL [Glucophage] 500 mg PO DAILY@1800 Gabapentin [Neurontin] 400 mg PO QID@00,06,,18 Bumetanide [BUMEX] 2 mg PO BID@0800,1800 Acetaminophen Tab [Tylenol] 500 mg PO QID@00,,,18 oxyCODONE-APAP 7.5-325MG [Percocet 7.5-325 mg] 1 tab PO QID@00,06,,18 30 Days #120 tab methocarbamoL [Robaxin-750] 750 mg PO QID@00,,,18 SILVER sulfADIAZINE Cream [Silvadene 1% Cream] 1 applic TOPICAL DAILY Nitroglycerin Sl Tabs [Nitrostat] 0.4 mg SL Q5M PRN PRN Reason: Chest Pain Digoxin [Lanoxin] 125 mcg PO Q48H INSULIN LISPRO (HumaLOG) [humaLOG] See Protocol SQ AC-TID Multivit-Min/FA/Lycopen/Lutein [Centrum Silver Tablet] 1 tab PO DAILY@0800 Apixaban [Eliquis] 5 mg PO BID@0800,1800 Tolterodine ER [Detrol LA] 4 mg PO DAILY@1200 Ondansetron Odt [Zofran ODT] 8 mg PO TID PRN PRN Reason: Nausea Semaglutide [Ozempic] 0.5 mg SQ FR Potassium Chloride ER [K-Dur 20] 20 meq PO BID@0800,1800 Magnesium Oxide [Mag-Ox] 250 mg PO DAILY@0800 Loratadine [Claritin] 10 mg PO DAILY@0800 Linezolid [Zyvox] 600 mg PO Q12H #20 tab Discontinued Insulin Glargine,Hum.rec.anlog [Lantus Solostar Pen] 24 units SQ DAILY@1800 predniSONE 10 mg PO DAILY@0800 Insulin Glargine,Hum.rec.anlog [Lantus Solostar Pen] 34 units SQ DAILY@0800 Discharge Medication List Latanoprost [Xalatan 0.005%] 1 drop BOTH EYES HS@0000 08/11/17 [History] Calcium Citrate/Vitamin D3 [Citracal + D Maximum Caplet] 1 tab PO BID@0800,1800 11/16/21 [History] Digoxin [Lanoxin] 125 mcg PO Q48H 11/16/21 [History] Nitroglycerin Sl Tabs [Nitrostat] 0.4 mg SL Q5M PRN 11/16/21 [History] Adalimumab [Humira(Cf) Pen] 40 mg SQ Q14D 01/09/22 [History] Apixaban [Eliquis] 5 mg PO BID@0800,1800 05/02/22 [History] INSULIN LISPRO (HumaLOG) [humaLOG] 6 units SQ AC-TID 05/02/22 [History] INSULIN LISPRO (HumaLOG) [humaLOG] See Protocol SQ AC-TID 05/02/22 [History] Multivit-Min/FA/Lycopen/Lutein [Centrum Silver Tablet] 1 tab PO DAILY@0800 05/02/22 [History] Levothyroxine Sodium [Synthroid] 150 mcg PO HS@0000 09/02/22 [History] traZODone HCL [Desyrel] 50 mg PO HS@0000 12/15/22 [History] Tolterodine ER [Detrol LA] 4 mg PO DAILY@1200 05/15/23 [History] metFORMIN HCL [Glucophage] 500 mg PO DAILY@1800 05/25/23 [History] Acetaminophen Tab [Tylenol] 500 mg PO QID@00,06,12,18 11/23/23 [History] Bumetanide [BUMEX] 2 mg PO BID@0800,1800 11/23/23 [History] Gabapentin [Neurontin] 400 mg PO QID@00,06,12,18 11/23/23 [History] Loratadine [Claritin] 10 mg PO DAILY@0800 11/23/23 [History] Magnesium Oxide [Mag-Ox] 250 mg PO DAILY@0800 11/23/23 [History] Ondansetron Odt [Zofran ODT] 8 mg PO TID PRN 11/23/23 [History] Potassium Chloride ER [K-Dur 20] 20 meq PO BID@0800,1800 11/23/23 [History] Semaglutide [Ozempic] 0.5 mg SQ FR 11/23/23 [History] oxyCODONE-APAP 7.5-325MG [Percocet 7.5-325 mg] 1 tab PO QID@00,06,12,18 30 Days #120 tab 12/25/23 [Rx] Linezolid [Zyvox] 600 mg PO Q12H #20 tab 12/27/23 [Rx] SILVER sulfADIAZINE Cream [Silvadene 1% Cream] 1 applic TOPICAL DAILY 01/05/24 [History] methocarbamoL [Robaxin-750] 750 mg PO QID@00,06,12,18 01/05/24 [History] Docusate [Colace] 100 mg PO DAILY PRN cap 01/10/24 [Rx] Insulin Detemir (Levemir) [Levemir] 30 unit SQ DAILY@1800 each 01/10/24 [Rx] Insulin Detemir (Levemir) [Levemir] 42 unit SQ DAILY@0800 each 01/10/24 [Rx] Magnesium Hydroxide [Milk of Magnesia] 2,400 mg PO DAILY PRN ml 01/10/24 [Rx] Follow up Appointment(s)/Referral(s): Nicholas Hart MD [Primary Care Provider] - 2 Weeks Discharge Disposition: TRANSFER TO SNF/ECF
--- NOTE | 2024-01-10 10:36 | P.CNNES ---
History of Present Illness Consult date: 01/09/24 Requesting physician: Nicholas Hart Reason for Consult: Altered mental status History of Present Illness: Patient is a 83-year-old right-handed female with history of diabetes, came to the hospital by ambulance on 01/05/2024 (4 days ago) because she had got up to go to the bathroom and lost balance. She fell backwards complaining of left elbow and left ankle pain. Unknown if she had hit her head. Patient was on Eliquis. No obvious signs of injury noted as reported by the EMS. Neurology was consulted for altered mental status. Patient at present states that she came to the hospital because her has and there was a lot of "hub hub going on", related to his . Patient states her primary physician Dr. Hart suggested she come to the hospital, and have 3 days of rest, so no one bothers her and the phones are not ringing. Patient completely declines the actual reason that she came to the hospital, that was a fall as per EMS flowsheet. She denies falling. Patient later stated that she just slept on the wet tile in the kitchen. Patient states that she did not fall, hit her arms on the sink and she just went down on the floor. She just laid down did not fall. Patient states that she was able to stand up by herself. I spoke to the nurse, who states that patient has been slightly confused as why she is here. Otherwise she is fine, answering questions appropriately. 1 time she told the nurse that she wanted to , although patient denies any suicidal thoughts. She has been fine all day and pleasant as per nurse. The nurse states that she is weak, to assist to go to the bedside commode. Patient lives alone at home, has a public guardian. Patient denies any low back pain or any thoracic pain. The nurse reports that she walks with a hunched back. She often wants to go home. Patient's current vitals include blood pressure 176/61, pulse rate 65 temp erature 98.1. Blood test shows WBC 11.45, hemoglobin 13.4, platelets 166. BUN 30, creatinine 0.9. Glucose 268. Hepatic panel is normal. Patient's hemoglobin A1c 11.0 on 01/06/2024. Hip and pelvic x-ray showed no acute fracture or dislocation. X-ray of the scapula showed no fracture. Left shoulder and humerus x-ray negative. Left elbow x-ray normal. Ankle x-ray normal. Chest x- ray showed small to moderate amount of airspace opacities in both lungs, more on the left, can be due to asymmetric edema versus pneumonia. Underlying pulmonary contusion cannot be excluded. Patient has history of diabetes for 20 years. Review of Systems All pertinent positive and negative review of systems mentioned in the HPI. Past Medical History Past Medical History: Atrial Fibrillation, Coronary Artery Disease (CAD), Cancer, Diabetes Mellitus, Hyperlipidemia, Hypertension, Musculoskeletal Disorder, Neurologic Disorder, Osteoarthritis (OA), Pneumonia, Renal Disease, Rheumatoid Arthritis (RA), Skin Disorder, Thyroid Disorder Additional Past Medical History / Comment(s): Morbid obesity, chronic atrial fibrillation, diabetes mellitus type 2, hypertension, hyperlipidemia, spinal stenosis, osteoarthritis, hypothyroidism, hypertension, history of skin melanoma, history of bursitis with MRSA post I&D, rheumatoid arthritis, Sjogren's disease, 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 without any indication of ILD related to RA, Fall on July 22 transfer to [facility] for MRI, then Fall on 11/16/21 History of Any Multi-Drug Resistant Organisms: MRSA Date of last positivie culture/infection: 09/02/22 MDRO Source:: Right Leg Past Surgical History: Back Surgery, Breast Surgery, Cholecystectomy, Heart Catheterization, Joint Replacement, Orthopedic Surgery Additional Past Surgical History / Comment(s): Bilateral cataracts with lens implants, arthroscopies to lt wrist, gualberto knees, gualberto ankles, gualberto hips, lt hip replacment and redone, L/R shoulder sxs, rt breast bx-benign, egd/colonoscopy, skin cancer removal L arm, Lumbar fixnation possible broken Past Anesthesia/Blood Transfusion Reactions: No Reported Reaction Additional Past Anesthesia/Blood Transfusion Reaction / Comment(s): Pt has been told not to have anesthesia metabolized by the kidneys and has neurologic Sjogren's with post anesthesia paralysis. Past Psychological History: No Psychological Hx Reported Smoking Status: Unknown if ever smoked Past Alcohol Use History: None Reported Additional Past Alcohol Use History / Comment(s): Pt started smoking in 1961 and quit in 1969 Past Drug Use History: None Reported - Past Family History Mother Family Medical History: CVA/TIA Additional Family Medical History / Comment(s): RUPTURED BOWEL Father Family Medical History: Cancer, Pneumonia Additional Family Medical History / Comment(s): ASPIRATIVE PNA Sister(s) Additional Family Medical History / Comment(s): at age 34 with lupus Medications and Allergies Home Medications Medication Instructions Recorded Confirmed Type Latanoprost [Xalatan 0.005%] 1 drop BOTH EYES HS@0000 08/11/17 01/05/24 History Calcium Citrate/Vitamin D3 1 tab PO BID@0800,1800 11/16/21 01/05/24 History [Citracal + D Maximum Caplet] Digoxin [Lanoxin] 125 mcg PO Q48H 11/16/21 01/05/24 History Nitroglycerin Sl Tabs [Nitrostat] 0.4 mg SL Q5M PRN 11/16/21 01/05/24 History Adalimumab [Humira(Cf) Pen] 40 mg SQ Q14D 01/09/22 01/05/24 History Apixaban [Eliquis] 5 mg PO BID@0800,1800 05/02/22 01/05/24 History INSULIN LISPRO (HumaLOG) [humaLOG] 6 units SQ AC-TID 05/02/22 01/05/24 History INSULIN LISPRO (HumaLOG) [humaLOG] See Protocol SQ AC-TID 05/02/22 01/05/24 History Multivit-Min/FA/Lycopen/Lutein 1 tab PO DAILY@0800 05/02/22 01/05/24 History [Centrum Silver Tablet] Levothyroxine Sodium [Synthroid] 150 mcg PO HS@0000 09/02/22 01/05/24 History traZODone HCL [Desyrel] 50 mg PO HS@0000 12/15/22 01/05/24 History Tolterodine ER [Detrol LA] 4 mg PO DAILY@1200 05/15/23 01/05/24 History metFORMIN HCL [Glucophage] 500 mg PO DAILY@1800 05/25/23 01/05/24 History Acetaminophen Tab [Tylenol] 500 mg PO QID@00,06,12,11/23/23 01/05/24 History Bumetanide [BUMEX] 2 mg PO BID@0800,1800 11/23/23 01/05/24 History Gabapentin [Neurontin] 400 mg PO QID@00,06,12,11/23/23 01/05/24 History Loratadine [Claritin] 10 mg PO DAILY@0800 11/23/23 01/05/24 History Magnesium Oxide [Mag-Ox] 250 mg PO DAILY@0800 11/23/23 01/05/24 History Ondansetron Odt [Zofran ODT] 8 mg PO TID PRN 11/23/23 01/05/24 History Potassium Chloride ER [K-Dur 20] 20 meq PO BID@0800,1800 11/23/23 01/05/24 History Semaglutide [Ozempic] 0.5 mg SQ FR 11/23/23 01/05/24 History oxyCODONE-APAP 7.5-325MG [Percocet 1 tab PO QID@00,06,12,18 30 Days 12/25/23 01/05/24 Rx 7.5-325 mg] #120 tab Linezolid [Zyvox] 600 mg PO Q12H #20 tab 12/27/23 01/05/24 Rx SILVER sulfADIAZINE Cream 1 applic TOPICAL DAILY 01/05/24 01/05/24 History [Silvadene 1% Cream] methocarbamoL [Robaxin-750] 750 mg PO QID@00,06,12,18 01/05/24 01/05/24 History Docusate [Colace] 100 mg PO DAILY PRN cap 01/10/24 Rx Insulin Detemir (Levemir) [Levemir] 30 unit SQ DAILY@1800 each 01/10/24 Rx Insulin Detemir (Levemir) [Levemir] 42 unit SQ DAILY@0800 each 01/10/24 Rx Magnesium Hydroxide [Milk of 2,400 mg PO DAILY PRN ml 01/10/24 Rx Magnesia] Allergies Allergy/AdvReac Type Severity Reaction Status Date / Time adhesive Allergy Rash/Hives Verified 01/05/24 07:20 cephalexin [From Keflex] Allergy Rash/Hives Verified 01/05/24 07:20 grass pollen Allergy Unknown Verified 01/05/24 07:20 mold Allergy Unknown Verified 01/05/24 07:20 newspaper ink Allergy Mild Unknown Uncoded 01/05/24 07:20 Physical Examination - Vital Signs Vital Signs: Vital Signs Temp Pulse Resp BP Pulse Ox 01/09/24 08:28 98.1 F 65 17 176/61 97 01/09/24 01:29 98.2 F 82 17 136/59 96 01/08/24 19:44 98.2 F 60 16 152/60 96 Intake and Output 01/09/24 01/09/24 01/09/24 06:59 14:59 22:59 Other: # Voids 2 2 Patient is an elderly female, very pleasant, in no acute distress. Patient is alert awake mostly patient states it is November and the year is 2023. Oriented to time place and person. She knows that she is in [facility] imported on [place] and name of the current president Mr. Avina. Speech and language functions are normal. Patient can name and repeat very well. No aphasia or dysarthria. Attention, concentration and fund of knowledge is slightly limited. Patient has positive palmomental reflex and negative visual spatial apraxia. On cranial nerve examination, pupils are equal, round and reacting to light, visual oliveira are full on confrontation, with no neglect on double simultaneous stimulation. Extraocular muscles are intact with no nystagmus. Face is symmetric, tongue protrudes to the midline. Palatal elevation and sensation normal, hearing and shoulder shrug normal, facial sensation normal. On muscle strength testing, there is no pronator drift and the strength is normal in arms and legs distally and proximally, except hip flexion which is 5- bilaterally. Her strength of the ankles and toes are normal. Patient has bilateral flatfeet, somewhat Charcot joints. Deep tendon reflexes are symmetric at the biceps, 1+ brachioradialis, 0 at the knees, trace ankles and plantars flat. Sensory to touch is equal with no neglect on double simultaneous stimulation. Cerebellar function showed no ataxia for [id number] testing. No dysdiadochokinesia. No ataxia for [id number] testing on either side. Tone and bulk of muscles normal. Patient denies any significant back pain. Patient able to lift her body up holding onto my hand without much pain in the back. Gait deferred.. On general examination, there is no carotid bruit or murmur, S1-S2 audible. Chest is clear on consultation. Abdomen is soft nontender. No organomegaly, bowel sounds present. Patient has some skin changes of the lower extremities distally. Patient has mild peripheral edema. Patient has Charcot joints of the feet. Results - Laboratory Findings CBC and BMP: 01/09/24 02:43 01/09/24 02:43 Abnormal Lab Findings: Abnormal Labs 01/05/24 01/05/24 01/05/24 05:30 06:14 07:00 WBC VBG pH 7.47 H VBG HCO3 31 H Sodium 130 L Potassium 5.3 H Chloride 91 L Carbon Dioxide 33 H Anion Gap BUN 57 H BUN/Creatinine Ratio Glucose 675 H* POC Glucose (mg/dL) >600 H* Hemoglobin A1c AST 40 H Albumin Albumin/Globulin Ratio Urine Glucose (UA) Ur Leukocyte Esterase Urine Bacteria Urine Mucus Urine Yeast (Budding) 01/05/24 01/05/24 01/05/24 07:33 08:48 11:00 WBC VBG pH VBG HCO3 Sodium Potassium Chloride Carbon Dioxide Anion Gap BUN BUN/Creatinine Ratio Glucose POC Glucose (mg/dL) >600 H* 564 H* Hemoglobin A1c AST Albumin Albumin/Globulin Ratio Urine Glucose (UA) 4+ H Ur Leukocyte Esterase Trace H Urine Bacteria Rare H Urine Mucus Rare H Urine Yeast (Budding) Rare H 01/05/24 01/05/24 01/05/24 12:46 18:05 21:31 WBC VBG pH VBG HCO3 Sodium Potassium Chloride Carbon Dioxide Anion Gap BUN BUN/Creatinine Ratio Glucose POC Glucose (mg/dL) 386 H 347 H 277 H Hemoglobin A1c AST Albumin Albumin/Globulin Ratio Urine Glucose (UA) Ur Leukocyte Esterase Urine Bacteria Urine Mucus Urine Yeast (Budding) 01/06/24 01/06/24 01/06/24 04:32 04:32 04:32 WBC 11.45 H VBG pH VBG HCO3 Sodium Potassium Chloride 94 L Carbon Dioxide Anion Gap 15.10 H BUN 30.8 H BUN/Creatinine Ratio 34.22 H Glucose 268 H POC Glucose (mg/dL) Hemoglobin A1c 11.0 H AST Albumin Albumin/Globulin Ratio 1.23 L Urine Glucose (UA) Ur Leukocyte Esterase Urine Bacteria Urine Mucus Urine Yeast (Budding) 01/06/24 01/06/24 01/06/24 06:29 10:33 11:42 WBC VBG pH VBG HCO3 Sodium Potassium Chloride Carbon Dioxide Anion Gap BUN BUN/Creatinine Ratio Glucose POC Glucose (mg/dL) 278 H 248 H 245 H Hemoglobin A1c AST Albumin Albumin/Globulin Ratio Urine Glucose (UA) Ur Leukocyte Esterase Urine Bacteria Urine Mucus Urine Yeast (Budding) 01/06/24 01/06/24 01/07/24 16:25 21:20 06:22 WBC VBG pH VBG HCO3 Sodium Potassium Chloride Carbon Dioxide Anion Gap BUN BUN/Creatinine Ratio Glucose POC Glucose (mg/dL) 357 H 371 H 214 H Hemoglobin A1c AST Albumin Albumin/Globulin Ratio Urine Glucose (UA) Ur Leukocyte Esterase Urine Bacteria Urine Mucus Urine Yeast (Budding) 01/07/24 01/08/24 01/08/24 20:41 06:29 11:41 WBC VBG pH VBG HCO3 Sodium Potassium Chloride Carbon Dioxide Anion Gap BUN BUN/Creatinine Ratio Glucose POC Glucose (mg/dL) 432 H 254 H 218 H Hemoglobin A1c AST Albumin Albumin/Globulin Ratio Urine Glucose (UA) Ur Leukocyte Esterase Urine Bacteria Urine Mucus Urine Yeast (Budding) 01/08/24 01/08/24 01/09/24 16:43 20:55 02:43 WBC VBG pH VBG HCO3 Sodium Potassium Chloride 95 L Carbon Dioxide Anion Gap 12.70 H BUN BUN/Creatinine Ratio 22.22 H Glucose 185 H POC Glucose (mg/dL) 239 H 252 H Hemoglobin A1c AST Albumin 3.6 L Albumin/Globulin Ratio 1.09 L Urine Glucose (UA) Ur Leukocyte Esterase Urine Bacteria Urine Mucus Urine Yeast (Budding) 01/09/24 01/09/24 06:51 11:53 WBC VBG pH VBG HCO3 Sodium Potassium Chloride Carbon Dioxide Anion Gap BUN BUN/Creatinine Ratio Glucose POC Glucose (mg/dL) 262 H 158 H Hemoglobin A1c AST Albumin Albumin/Globulin Ratio Urine Glucose (UA) Ur Leukocyte Esterase Urine Bacteria Urine Mucus Urine Yeast (Budding) Assessment and Plan Assessment: * Gait imbalance, probably due to diabetic peripheral neuropathy. Patient seems to have some Charcot joints of the feet. * Altered mental status, possible mild delirium versus underlying cognitive impairment * Diabetes, poorly controlled * Atrial fibrillation, on Eliquis * CAD * Hypertension * Hyperlipidemia * Depression * Rheumatoid arthritis/osteoarthritis Plan: * Patient probably has mild delirium, related to hospitalization. Cannot rule out underlying cognitive impairment. Recommend patient follow-up with rajani rologist outpatient to assess for cognitive functions. * Check B12, folate, TSH 1.11, normal. * Hemoglobin A1c 11.0, consistent with poorly controlled diabetes. Recommend optimize control of diabetes to target A1c <7.0. * Continue Eliquis for atrial fibrillation. * Psychiatry has seen the patient, diagnosed with depression. * PT, OT * Neurologically, no other workup indicated. Thank you for the consult. Addendum: B12 1215, folate 29.9, lipid panel with cholesterol 131, LDL 59, HDL 32, triglycerides 196. Lipids are well-controlled. Time with Patient: Greater than 30
[2024-01-10 12:07] LABS: Glucose,Whole Blood 234 mg/dL (70-110)
[2024-01-10 16:58] LABS: Glucose,Whole Blood 180 mg/dL (70-110)
[2024-01-10 20:28] LABS: Glucose,Whole Blood 248 mg/dL (70-110)
[2024-01-10] MEDS ORDERED: HYDROCORTISONE 2.5% RECTAL CREAM 30 GM TUBE RECTAL PRN (22:55)
[2024-01-11 06:16] LABS: Glucose,Whole Blood 137 mg/dL (70-110)
[2024-01-11 08:46] LABS: Basophils # (A) 0.06 X 10*3/uL (0.00-0.10); Basophils % (A) 0.7 %; Eosinophils # (A) 0.34 X 10*3/uL (0.04-0.35); Eosinophils % (A) 4.2 %; HCT 42.2 % (37.2-46.3); HGB 13.6 g/dL (12.0-15.0); Lymphocytes # (A) 2.09 X 10*3/uL (0.90-5.00); Lymphocytes % (A) 25.5 %; MCH 31.1 pg (27.0-32.0); MCHC 32.2 g/dL (32.0-37.0); MCV 96.3 FL (80.0-97.0); Mean Platelet Volume 10.9 FL (9.5-12.2); Monocytes # (A) 1.04 X 10*3/uL (0.20-1.00); Monocytes % (A) 12.7 %; NRBC Per 100 WBC 0 X 10*3/uL (0.00-0.01); Neutrophils # (A) 4.62 X 10*3/uL (1.80-7.70); Neutrophils % (A) 56.4 %; Platelet Count 167 X 10*3/uL (140-440); RBC 4.38 X 10*6/uL (4.10-5.20); RDW 13.6 % (11.5-14.5); WBC 8.19 X 10*3/uL (4.50-10.00)
[2024-01-11] MEDS: DOCUSATE 100 MG CAP PO SCH (09:38)
--- NOTE | 2024-01-11 11:00 | P.PN ---
Subjective Progress Note Date: 01/10/24 Patient was seen for a follow-up. Patient is laying comfortably in the bed. Offers no complaints. Patient is awaiting half-way placement. Patient wants to go to [facility]. Per nursing report, she is two-person assist to go to [facility]. Patient states that she lives by herself at her home, uses wheeled walker. The nursing staff are not letting her go to the bathroom by herself. Objective - Vital Signs Vital signs: Vital Signs Temp 98.8 F 01/10/24 19:20 Pulse 82 01/10/24 19:20 Resp 18 01/10/24 19:20 BP 121/67 01/10/24 19:20 Pulse Ox 96 01/10/24 19:20 FiO2 Intake & Output 01/10/24 01/10/24 01/11/24 06:59 18:59 06:59 Intake Total 120 Balance 120 Intake: Oral 120 Other: # Voids 3 2 - Exam Patient's speech and language functions are normal. Patient is fully alert and awake. Patient knows it is December 2023 and that she is in for an hospital in [place]. Rest of the examination is unchanged. - Labs CBC & Chem 7: 01/11/24 02:52 01/09/24 02:43 Labs: Abnormal Lab Results - Last 24 Hours (Table) 01/09/24 01/10/24 01/10/24 Range/Units 17:20 02:25 06:11 POC Glucose (mg/dL) 170 H (70-110) mg/dL Triglycerides 196.00 H (0.00-149.00) mg/dL HDL Cholesterol 32.30 L (40.00-60.00) mg/dL Vitamin B12 1215.0 H (200.0-944.0) pg/mL 01/10/24 01/10/24 01/10/24 Range/Units 12:05 16:55 20:27 POC Glucose (mg/dL) 234 H 180 H 248 H (70-110) mg/dL Triglycerides (0.00-149.00) mg/dL HDL Cholesterol (40.00-60.00) mg/dL Vitamin B12 (200.0-944.0) pg/mL Assessment and Plan Assessment: * Gait imbalance, probably due to diabetic peripheral neuropathy. Patient seems to have some Charcot joints of the feet. * Altered mental status, possible mild delirium versus underlying cognitive impairment * Diabetes, poorly controlled * Atrial fibrillation, on Eliquis * CAD * Hypertension * Hyperlipidemia * Depression * Rheumatoid arthritis/osteoarthritis Plan: * Patient probably has mild delirium, related to hospitalization. Cannot rule out underlying cognitive impairment. Recommend patient follow-up with neurologist outpatient to assess for cognitive functions. * B12 1215, folate 29.9, lipid panel with cholesterol 131, LDL 59, HDL 32, triglycerides 196. Lipids are well-controlled. * TSH 1.11, normal. * Hemoglobin A1c 11.0, consistent with poorly controlled diabetes. Recommend optimize control of diabetes to target A1c <7.0. * Continue Eliquis for atrial fibrillation. * Psychiatry has seen the patient, diagnosed with depression. * PT, OT * Patient awaiting placement. Neurology will sign off. Please reconsult if any concerns.
[2024-01-11 11:52] LABS: Glucose,Whole Blood 215 mg/dL (70-110)
[2024-01-11 14:06] VITALS: BP 148/68; PULSE 79; RESP 16; TEMP 97.8
== END 2024-01-11 14:27 ==
LOC: EC 04:09 → EEVIPCON 06:55 → 6NMEDSUR 06:55 → 5NMEDONC 07:46 → 4SSUR 19:20
PROVIDERS: ADMIT Family Medicine; ATTEND Family Medicine
DX: R29.6 Repeated falls (principal); R53.1 Weakness; M25.522 Pain in left elbow; M25.572 Pain in left ankle and joints of left foot; R26.9 Unspecified abnormalities of gait and mobility; G93.41 Metabolic encephalopathy; E03.9 Hypothyroidism, unspecified; E11.42 Type 2 diabetes mellitus with diabetic polyneuropathy; E11.649 Type 2 diabetes mellitus with hypoglycemia without coma; E78.5 Hyperlipidemia, unspecified; F32.A Depression, unspecified; G89.4 Chronic pain syndrome; E66.01 Morbid (severe) obesity due to excess calories; L03.116 Cellulitis of left lower limb; I11.0 Hypertensive heart disease with heart failure; I25.10 Atherosclerotic heart disease of native coronary artery without angina pectoris; I48.19 Other persistent atrial fibrillation; I50.32 Chronic diastolic (congestive) heart failure; J15.212 Pneumonia due to Methicillin resistant Staphylococcus aureus; J44.0 Chronic obstructive pulmonary disease with (acute) lower respiratory infection; M06.9 Rheumatoid arthritis, unspecified; M10.9 Gout, unspecified; M19.90 Unspecified osteoarthritis, unspecified site; M35.00 Sjogren syndrome, unspecified; Z63.4 Disappearance and death of family member; Z79.01 Long term (current) use of anticoagulants; Z79.4 Long term (current) use of insulin; Z79.84 Long term (current) use of oral hypoglycemic drugs; Z79.890 Hormone replacement therapy; Z96.1 Presence of intraocular lens; Z98.42 Cataract extraction status, left eye; Z98.41 Cataract extraction status, right eye; Z88.1 Allergy status to other antibiotic agents; Z79.52 Long term (current) use of systemic steroids; Z79.85 Long-term (current) use of injectable non-insulin antidiabetic drugs; W19.XXXA Unspecified fall, initial encounter
CPT/HCPCS: 96372; 96360; 99285; 36415; 94760; 97530; 97162; 97166; 84207; 83921; 80061; 80053 ×3; 82607; 82746; 82803; 82009; 83735; 84443; 84484; 85025 ×2; 85027 ×2; 85610; 85730; 81001; 83036; 87636; 73521; 73010; 73020; 73060; 73070; 73600; 71045; 72125; 70450; G0378 ×9

== ENCOUNTER 2024-01-25 04:44 | Emergency (ER) | payer MEDICARE ==
[2024-01-25 04:50] VITALS: RESP 18; TEMP 97.9
[2024-01-25] MEDS: MORPHINE SULFATE 4 MG/ML SYRINGE IV STA (05:54)
[2024-01-25] MEDS: MORPHINE SULFATE 4 MG/ML SYRINGE IM STA ×2 (05:56→08:41)
[2024-01-25 05:57] VITALS: BP 110/62; PULSE 86
--- NOTE | 2024-01-25 06:33 | XR ---
EXAM: XR Right Knee, 3 Views CLINICAL HISTORY: fall injury TECHNIQUE: Three views of the right knee. COMPARISON: No relevant prior studies available. FINDINGS: Bones/joints: Advanced degenerative arthropathy in the knee, most pronounced in the medial knee compartment. No acute fracture. No dislocation. Soft tissues: Unremarkable. IMPRESSION: No acute findings in the right knee.
--- NOTE | 2024-01-25 07:17 | CT ---
EXAM: CT Lumbar Spine Without Intravenous Contrast CLINICAL HISTORY: fall injury TECHNIQUE: Axial computed tomography images of the lumbar spine without intravenous contrast. CTDI is 53.3 mGy and DLP is 1982.4 mGy-cm. This CT exam was performed using one or more of the following dose reduction techniques: automated exposure control, adjustment of the mA and/or kV according to patient size, and/or use of iterative reconstruction technique. COMPARISON: June 10, 2023. FINDINGS: Vertebrae: Laminectomies and extensive posterior fusion hardware from L2-S1. There has been an interval mild compression fracture of the superior aspect of the L1 vertebral body. This is of indeterminate age. Additionally, there is some interval depression of the inferior endplate of T12. Air from the disc space has entered into the marrow space of the inferior aspect of T12 indicating endplate disruption. This may be acute. Discs/spinal canal/neural foramina: No acute findings. No spinal canal stenosis. Soft tissues: Unremarkable. IMPRESSION: Interval mild compressions of the T12 and L1 vertebral bodies. The L1 fracture is of indeterminate age. The T12 fracture may be acute, as air from the disc space extends through the inferior endplate into the marrow space of the T12 vertebral body.
--- NOTE | 2024-01-25 07:33 | ED ---
Fall HPI - General Chief Complaint: Fall Stated Complaint: Fall Time Seen by Provider: 01/25/24 04:56 Source: EMS Mode of arrival: EMS - History of Present Illness Initial Comments: This patient is an 83-year-old woman sent from her long-term care facility to have evaluation after she reportedly had fallen out of bed. The distance estimated to be approximately 2 feet by EMS. The patient on arrival denies loss of consciousness, head, neck, chest or abdominal pain. She does have some low back/lumbar pain. She also complains of pain to the anterior aspect right knee. 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 Witnessed: no Place Fall Occurred: home Loss of Consciousness: none Prolonged Down Time?: no Symptoms Prior to Fall: none Location: back Location - Extremities: Right: Knee Severity: moderate Quality: aching Associated Symptoms: denies - Related Data Home Medications Medication Instructions Recorded Confirmed Latanoprost [Xalatan 0.005%] 1 drop BOTH EYES HS@0000 08/11/17 01/05/24 Calcium Citrate/Vitamin D3 1 tab PO BID@0800,1800 11/16/21 01/05/24 [Citracal + D Maximum Caplet] Digoxin [Lanoxin] 125 mcg PO Q48H 11/16/21 01/05/24 Nitroglycerin Sl Tabs [Nitrostat] 0.4 mg SL Q5M PRN 11/16/21 01/05/24 Adalimumab [Humira(Cf) Pen] 40 mg SQ Q14D 01/09/22 01/05/24 Apixaban [Eliquis] 5 mg PO BID@0800,1800 05/02/22 01/05/24 INSULIN LISPRO (HumaLOG) [humaLOG] 6 units SQ AC-TID 05/02/22 01/05/24 INSULIN LISPRO (HumaLOG) [humaLOG] See Protocol SQ AC-TID 05/02/22 01/05/24 Multivit-Min/FA/Lycopen/Lutein 1 tab PO DAILY@0800 05/02/22 01/05/24 [Centrum Silver Tablet] Levothyroxine Sodium [Synthroid] 150 mcg PO HS@0000 09/02/22 01/05/24 traZODone HCL [Desyrel] 50 mg PO HS@0000 12/15/22 01/05/24 Tolterodine ER [Detrol LA] 4 mg PO DAILY@1200 05/15/23 01/05/24 metFORMIN HCL [Glucophage] 500 mg PO DAILY@1800 05/25/23 01/05/24 Acetaminophen Tab [Tylenol] 500 mg PO QID@00,06,12,18 11/23/23 01/05/24 Bumetanide [BUMEX] 2 mg PO BID@0800,1800 11/23/23 01/05/24 Gabapentin [Neurontin] 400 mg PO QID@00,,12,18 11/23/23 01/05/24 Loratadine [Claritin] 10 mg PO DAILY@79911/23/23 01/05/24 Magnesium Oxide [Mag-Ox] 250 mg PO DAILY@0800 11/23/23 01/05/24 Ondansetron Odt [Zofran ODT] 8 mg PO TID PRN 11/23/23 01/05/24 Potassium Chloride ER [K-Dur 20] 20 meq PO BID@0800,1800 11/23/23 01/05/24 Semaglutide [Ozempic] 0.5 mg SQ FR 11/23/23 01/05/24 SILVER sulfADIAZINE Cream 1 applic TOPICAL DAILY 01/05/24 01/05/24 [Silvadene 1% Cream] methocarbamoL [Robaxin-750] 750 mg PO QID@00,06,12,01/05/24 01/05/24 Previous Rx's Medication Instructions Recorded Linezolid [Zyvox] 600 mg PO Q12H #20 tab 12/27/23 Docusate [Colace] 100 mg PO DAILY PRN cap 01/10/24 Insulin Detemir (Levemir) [Levemir] 30 unit SQ DAILY@1800 each 01/10/24 Insulin Detemir (Levemir) [Levemir] 42 unit SQ DAILY@0800 each 01/10/24 Magnesium Hydroxide [Milk of 2,400 mg PO DAILY PRN ml 01/10/24 Magnesia] oxyCODONE-APAP 7.5-325MG [Percocet 1 tab PO QID@00,06,,18 PRN 3 01/11/24 7.5-325 mg] Days #12 tab Allergies Allergy/AdvReac Type Severity Reaction Status Date / Time adhesive Allergy Rash/Hives Verified 01/25/24 04:50 cephalexin [From Keflex] Allergy Rash/Hives Verified 01/25/24 04:50 grass pollen Allergy Unknown Verified 01/25/24 04:50 mold Allergy Unknown Verified 01/25/24 04:50 newspaper ink Allergy Mild Unknown Uncoded 01/25/24 04:50 Review of Systems ROS Statement: Those systems with pertinent positive or pertinent negative responses have been documented in the HPI. ROS Other: All systems not noted in ROS Statement are negative. Constitutional: Denies: fever Eyes: Denies: vision change ENT: Denies: epistaxis Respiratory: Denies: cough, dyspnea Cardiovascular: Denies: chest pain, palpitations, syncope Gastrointestinal: Denies: abdominal pain, nausea, vomiting, diarrhea Genitourinary: Denies: dysuria, frequency Musculoskeletal: Reports: as per HPI, back pain, arthralgia Skin: Denies: rash Neurological: Denies: headache, weakness, numbness Past Medical History Past Medical History: Atrial Fibrillation, Coronary Artery Disease (CAD), Cancer, Diabetes Mellitus, Hyperlipidemia, Hypertension, Musculoskeletal Disorder, Neurologic Disorder, Osteoarthritis (OA), Pneumonia, Renal Disease, Rheumatoid Arthritis (RA), Skin Disorder, Thyroid Disorder Additional Past Medical History / Comment(s): Morbid obesity, chronic atrial fibrillation, diabetes mellitus type 2, hypertension, hyperlipidemia, spinal stenosis, osteoarthritis, hypothyroidism, hypertension, history of skin melanoma, history of bursitis with MRSA post I&D, rheumatoid arthritis, Sjogren's disease, 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 without any indication of ILD related to RA, Fall on July 22 transfer to [facility] for MRI, then Fall on 11/16/21 History of Any Multi-Drug Resistant Organisms: MRSA Date of last positivie culture/infection: 09/02/22 MDRO Source:: Right Leg Past Surgical History: Back Surgery, Breast Surgery, Cholecystectomy, Heart Catheterization, Joint Replacement, Orthopedic Surgery Additional Past Surgical History / Comment(s): Bilateral cataracts with lens implants, arthroscopies to lt wrist, gualberto knees, gualberto ankles, gualberto hips, lt hip replacment and redone, L/R shoulder sxs, rt breast bx-benign, egd/colonoscopy, skin cancer removal L arm, Lumbar fixnation possible broken Past Anesthesia/Blood Transfusion Reactions: No Reported Reaction Additional Past Anesthesia/Blood Transfusion Reaction / Comment(s): Pt has been told not to have anesthesia metabolized by the kidneys and has neurologic Sjogren's with post anesthesia paralysis. Past Psychological History: No Psychological Hx Reported Smoking Status: Unknown if ever smoked Past Alcohol Use History: None Reported Past Drug Use History: None Reported - Past Family History Mother Family Medical History: CVA/TIA Additional Family Medical History / Comment(s): RUPTURED BOWEL Father Family Medical History: Cancer, Pneumonia Additional Family Medical History / Comment(s): ASPIRATIVE PNA Sister(s) Additional Family Medical History / Comment(s): at age 34 with lupus General Exam Limitations: no limitations General appearance: alert, in no apparent distress Head exam: Present: atraumatic, normocephalic, normal inspection Eye exam: Present: normal appearance, PERRL, EOMI. Absent: scleral icterus, conjunctival injection, nystagmus ENT exam: Present: normal oropharynx Neck exam: Present: normal inspection, full ROM. Absent: tenderness Respiratory exam: Present: normal lung sounds bilaterally. Absent: respiratory distress, wheezes, rales, rhonchi, stridor, chest wall tenderness, accessory muscle use Cardiovascular Exam: Present: regular rate, normal rhythm, normal heart sounds. Absent: systolic murmur, diastolic murmur, rubs, gallop GI/Abdominal exam: Present: soft. Absent: distended, tenderness, guarding, rebound, rigid, mass Extremities exam: Present: normal inspection, tenderness (Tenderness anterior aspect right knee no obvious deformity), normal capillary refill. Absent: pedal edema, calf tenderness Back exam: Present: normal inspection, paraspinal tenderness (Tenderness over lumbar spine, no obvious deformity), vertebral tenderness. Absent: CVA tenderness (R), CVA tenderness (L) Neurological exam: Present: alert, reflexes normal. Absent: motor sensory deficit Skin exam: Present: warm, dry, intact, normal color. Absent: rash Course Vital Signs 01/25/24 01/25/24 04:46 05:55 Temperature 97.9 F Pulse Rate 65 86 Respiratory 18 18 Rate Blood Pressure 156/89 110/62 O2 Sat by Pulse 99 98 Oximetry Medical Decision Making - Medical Decision Making This patient is 83-year-old woman who presents after low mechanism of injury fall but does have significant tenderness over her lumbar spine and anterior aspect right knee. The patient did have x-ray right knee that I interpreted as negative for acute bony injury. The patient had CT scan of the lumbar spine which does show possible new lumbar compression fracture. The patient is not having any evidence of cord compression or injury. At this point seems stable to have further care as outpatient. Was pt. sent in by a medical professional or institution (, PA, CHEMICAL ANALYTICAL SAMPLER, urgent care, hospital, or penitentiary...) When possible be specific @ -[No] Did you speak to anyone other than the patient for history (EMS, parent, family, police, friend...)? What history was obtained from this source @ -[No] Did you review nursing and triage notes (agree or disagree)? Why? @ -[I reviewed and agree with nursing and triage notes] Were old charts reviewed (outside hosp., previous admission, EMS record, old EKG, old radiological studies, urgent care reports/EKG's, penitentiary records)? Report findings @ -[No old charts were reviewed] Differential Diagnosis (chest pain, altered mental status, abdominal pain women, abdominal pain men, vaginal bleeding, weakness, fever, dyspnea, syncope, headache, dizziness, GI bleed, back pain, seizure, CVA, palpatations, mental health, musculoskeletal)? @ -[Differential Musculoskeletal Muscular strain, contusion, ligament sprain, fracture, arthritis, septic arthritis, bursitis, cellulitis, muscle spasm, nerve compression, DVT, arterial occlusion, herpes zoster, electrolyte abnormality, tumor.... This is not meant to be in all inclusive list EKG interpreted by me (3pts min.). @ -[As above] X-rays interpreted by me (1pt min.). @ -[I interpreted as above CT interpreted by me (1pt min.). @ -[I interpreted as above U/S interpreted by me (1pt. min.). @ -[None done] What testing was considered but not performed or refused? (CT, X-rays, U/S, labs)? Why? @ -[None] What meds were considered but not given or refused? Why? @ -[None] Did you discuss the management of the patient with other professionals (professionals i.e. , YEIMI, CHEMICAL ANALYTICAL SAMPLER, lab, RT, psych nurse, foster care social worker, rice drier, teacher, college service officer, catalytic case operator)? Give summary @ -[No] Was smoking cessation discussed for >3mins.? @ -[No] Was critical care preformed (if so, how long)? @ -[No] Were there social determinants of health that impacted care today? How? (Homelessness, low income, unemployed, alcoholism, drug addiction, transportation, low edu. Level, literacy, decrease access to med. care, senior living, rehab)? @ -[No] Was there de-escalation of care discussed even if they declined (Discuss DNR or withdrawal of care, Hospice)? DNR status @ -[No] What co-morbidities impacted this encounter? (DM, HTN, Smoking, COPD, CAD, Cancer, CVA, ARF, Chemo, Hep., AIDS, mental health diagnosis, sleep apnea, mor bid obesity)? @ -[None] Was patient admitted / discharged? Hospital course, mention meds given and route, prescriptions, significant lab abnormalities, going to OR and other pertinent info. @ -[See above Undiagnosed new problem with uncertain prognosis? @ -[No] Drug Therapy requiring intensive monitoring for toxicity (Heparin, Nitro, Insulin, Cardizem)? @ -[No] Were any procedures done? @ -[No] Diagnosis/symptom? @ -[Acute fall Lumbar compression fracture Acute, or Chronic, or Acute on Chronic? @ -[Acute Uncomplicated (without systemic symptoms) or Complicated (systemic symptoms)? @ -[Uncomplicated Side effects of treatment? @ -[No] Exacerbation, Progression, or Severe Exacerbation? @ -[No] Poses a threat to life or bodily function? How? (Chest pain, USA, MD, pneumonia, PE, COPD, DKA, ARF, appy, cholecystitis, CVA, Diverticulitis, Homicidal, Suicidal, threat to staff... and all critical care pts) @ -[No] Disposition Clinical Impression: Fall, Compression fracture Disposition: HOME SELF-CARE Condition: Good Instructions (If sedation given, give patient instructions): Vertebral Compression Fracture (ED), Fall Prevention for Older Adults (ED) Is patient prescribed a controlled substance at d/c from ED?: No Referrals: Nicholas Hart MD [Primary Care Provider] - 1-2 days
[2024-01-25] MEDS: DIGOXIN 125 MCG TAB PO SCH (08:40)
== END 2024-01-25 09:50 | disposition home or self-care (01) ==
LOC: EC 04:44
DX: S32.010A Wedge compression fracture of first lumbar vertebra, initial encounter for closed fracture (principal); Z88.1 Allergy status to other antibiotic agents; Z88.8 Allergy status to other drugs, medicaments and biological substances; W06.XXXA Fall from bed, initial encounter
CPT/HCPCS: 73562; 72131; 99284; 96372; J2270

== ENCOUNTER 2024-02-14 13:44 | Observation (INO) | payer MEDICARE ==
--- NOTE | 2024-02-14 14:01 | ED ---
Weakness HPI - General Chief complaint: Weakness Stated complaint: sob,weakness, COVID + Time Seen by Provider: 02/14/24 13:53 Source: patient, RN notes reviewed, old records reviewed Mode of arrival: EMS Limitations: no limitations, altered mental status - History of Present Illness Initial comments: This is an 83-year-old female well-known to this facility coming in for pneumonia uncontrolled pneumonia with shortness of breath fever and hypoxia may have coronavirus diagnosis with suspected coronavirus pneumonia MD Complaint: generalized weakness, lack of energy -: days(s) Location: generalized Severity: severe Severity scale (1-10): 8 Quality: tingling Consistency: constant Improves with: none Context: recent illness, history of similar Associated Symptoms: confusion, fever/chills, nausea/vomiting, shortness of breath - Related Data Home Medications Medication Instructions Recorded Confirmed Latanoprost [Xalatan 0.005%] 1 drop BOTH EYES HS@08/11/17 02/14/24 Calcium Citrate/Vitamin D3 1 tab PO DAILY@0800 11/16/21 02/14/24 [Citracal + D Maximum Caplet] Digoxin [Lanoxin] 125 mcg PO Q48H 11/16/21 02/14/24 Nitroglycerin Sl Tabs [Nitrostat] 0.4 mg SL Q5M PRN 11/16/21 02/14/24 Adalimumab [Humira(Cf) Pen] 40 mg SQ Q14D 01/09/22 02/14/24 Apixaban [Eliquis] 5 mg PO BID@08,199905/02/22 02/14/24 INSULIN LISPRO (HumaLOG) [humaLOG] 6 units SQ AC-TID@,05/02/22 02/14/24 INSULIN LISPRO (HumaLOG) [humaLOG] See Protocol SQ AC-TID@,05/02/22 02/14/24 Levothyroxine Sodium [Synthroid] 150 mcg PO DAILY@0800 09/02/22 02/14/24 traZODone HCL [Desyrel] 50 mg PO HS@199912/15/22 02/14/24 Tolterodine ER [Detrol LA] 4 mg PO DAILY@0800 05/15/23 02/14/24 metFORMIN HCL [Glucophage] 1,000 mg PO BID@0800,199905/25/23 02/14/24 Acetaminophen Tab [Tylenol] 500 mg PO QID@,,,11/23/23 02/14/24 Gabapentin [Neurontin] 400 mg PO QID@,,,11/23/23 02/14/24 Loratadine [Claritin] 10 mg PO DAILY@79911/23/23 02/14/24 Magnesium Oxide [Mag-Ox] 250 mg PO DAILY@79911/23/23 02/14/24 Ondansetron Odt [Zofran ODT] 8 mg PO TID 11/23/23 02/14/24 Potassium Chloride ER [K-Dur 20] 20 meq PO BID@799,199911/23/23 02/14/24 SILVER sulfADIAZINE Cream 1 applic TOPICAL DAILY@79901/05/24 02/14/24 [Silvadene 1% Cream] methocarbamoL [Robaxin-750] 750 mg PO QID@,,,01/05/24 02/14/24 Albuterol Nebulized [Ventolin 2.5 mg INHALATION RT-Q6H PRN 02/14/24 02/14/24 Nebulized] Bumetanide [BUMEX] 1 mg PO DAILY@79902/14/24 02/14/24 Docusate [Colace] 100 mg PO BID PRN 02/14/24 02/14/24 Empagliflozin [Jardiance] 10 mg PO DAILY@79902/14/24 02/14/24 Insulin Glargine,Hum.rec.anlog 40 units SQ BID@799,199902/14/24 02/14/24 [Lantus Solostar Pen] Lidocaine 4% Patch 1 patch TOPICAL HS@199902/14/24 02/14/24 Multivitamins, Thera [Multivitamin 1 tab PO DAILY@79902/14/24 02/14/24 (formulary)] Sennosides [Senokot] 17.2 mg PO HS PRN 02/14/24 02/14/24 oxyCODONE-APAP 7.5-325MG [Percocet 1 tab PO Q6H PRN 02/14/24 02/14/24 7.5-325 mg] Previous Rx's Medication Instructions Recorded Magnesium Hydroxide [Milk of 2,400 mg PO DAILY PRN ml 01/10/24 Magnesia] Allergies Allergy/AdvReac Type Severity Reaction Status Date / Time adhesive Allergy Rash/Hives Verified 02/14/24 14:57 cephalexin [From Keflex] Allergy Rash/Hives Verified 02/14/24 14:57 grass pollen Allergy Unknown Verified 02/14/24 14:57 mold Allergy Unknown Verified 02/14/24 14:57 newspaper ink Allergy Mild Unknown Uncoded 02/14/24 14:57 Review of Systems ROS Statement: Those systems with pertinent positive or pertinent negative responses have been documented in the HPI. ROS Other: All systems not noted in ROS Statement are negative. Past Medical History Past Medical History: Atrial Fibrillation, Coronary Artery Disease (CAD), Cancer, Diabetes Mellitus, Hyperlipidemia, Hypertension, Musculoskeletal Disorde r, Neurologic Disorder, Osteoarthritis (OA), Pneumonia, Renal Disease, Rheumatoid Arthritis (RA), Skin Disorder, Thyroid Disorder Additional Past Medical History / Comment(s): Morbid obesity, chronic atrial fibrillation, diabetes mellitus type 2, hypertension, hyperlipidemia, spinal stenosis, osteoarthritis, hypothyroidism, hypertension, history of skin melanoma, history of bursitis with MRSA post I&D, rheumatoid arthritis, Sjogren's disease, 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 without any indication of ILD related to RA, Fall on July 22 transfer to [facility] for MRI, then Fall on 11/16/21 History of Any Multi-Drug Resistant Organisms: MRSA Date of last positivie culture/infection: 09/02/22 MDRO Source:: Right Leg Past Surgical History: Back Surgery, Breast Surgery, Cholecystectomy, Heart Catheterization, Joint Replacement, Orthopedic Surgery Additional Past Surgical History / Comment(s): Bilateral cataracts with lens implants, arthroscopies to lt wrist, gualberto knees, gualberto ankles, gualberto hips, lt hip replacment and redone, L/R shoulder sxs, rt breast bx-benign, egd/colonoscopy, skin cancer removal L arm, Lumbar fixnation possible broken Past Anesthesia/Blood Transfusion Reactions: No Reported Reaction Additional Past Anesthesia/Blood Transfusion Reaction / Comment(s): Pt has been told not to have anesthesia metabolized by the kidneys and has neurologic Sjogren's with post anesthesia paralysis. Past Psychological History: No Psychological Hx Reported Smoking Status: Former smoker Past Alcohol Use History: None Reported Past Drug Use History: None Reported - Past Family History Mother Family Medical History: CVA/TIA Additional Family Medical History / Comment(s): RUPTURED BOWEL Father Family Medical History: Cancer, Pneumonia Additional Family Medical History / Comment(s): ASPIRATIVE PNA Sister(s) Additional Family Medical History / Comment(s): at age 34 with lupus General Exam General appearance: alert, in no apparent distress Head exam: Present: atraumatic, normocephalic, normal inspection Eye exam: Present: normal appearance, PERRL, EOMI. Absent: scleral icterus, conjunctival injection, periorbital swelling ENT exam: Present: normal exam, mucous membranes moist Neck exam: Present: normal inspection. Absent: tenderness, meningismus, lymphadenopathy Respiratory exam: Present: normal lung sounds bilaterally. Absent: respiratory distress, wheezes, rales, rhonchi, stridor Cardiovascular Exam: Present: regular rate, normal rhythm, normal heart sounds. Absent: systolic murmur, diastolic murmur, rubs, gallop, clicks GI/Abdominal exam: Present: soft, normal bowel sounds. Absent: distended, tenderness, guarding, rebound, rigid Extremities exam: Present: normal inspection, full ROM, normal capillary refill. Absent: tenderness, pedal edema, joint swelling, calf tenderness Back exam: Present: normal inspection Neurological exam: Present: alert, oriented X3, CN II-XII intact Psychiatric exam: Present: normal affect, normal mood Skin exam: Present: warm, dry, intact, normal color. Absent: rash Course Vital Signs 02/14/24 02/14/24 02/14/24 13:47 15:00 17:00 Temperature 98.7 F Pulse Rate 85 87 97 Respiratory 20 20 18 Rate Blood Pressure 118/55 112/54 113/58 O2 Sat by Pulse 95 98 97 Oximetry 02/14/24 19:00 Temperature Pulse Rate 98 Respiratory 18 Rate Blood Pressure 118/58 O2 Sat by Pulse 95 Oximetry - Reevaluation(s) Reevaluation #1: 02/14/24 14:02 Medical records reviewed Reevaluation #2: 02/14/24 15:56 Symptoms unchanged Reevaluation #3: 02/14/24 15:56 Results questions answered Reevaluation #4: Was pt. sent in by a medical professional or institution (, PA, CASE RESOURCE MANAGER, urgent care, hospital, or intermediate...) When possible be specific @ -no Did you speak to anyone other than the patient for history (EMS, parent, family, police, friend...)? What history was obtained from this source @ -no Did you review nursing and triage notes (agree or disagree)? Why? @ -agree Are old charts reviewed (outside hosp., previous admission, EMS record, old EKG, old radiological studies, urgent care reports/EKG's, intermediate records)? Report findings @ -yes Differential Diagnosis (chest pain, altered mental status, abdominal pain women, abdominal pain men, vaginal bleeding, weakness, fever, dyspnea, syncope, headache, dizziness, GI bleed, back pain, seizure, CVA, palpatations, mental health, musculoskeletal)? @ -prior EKG interpreted by me (3pts min.). @ -yes X-rays interpreted by me (1pt min.). @ -yes COVID-pneumonia CT interpreted by me (1pt min.). @ -no U/S interpreted by me (1pt. min.). @ -no What testing was considered but not performed or refused? (CT, X-rays, U/S, labs)? Why? @ -none What meds were considered but not given or refused? Why? @ -none Did you discuss the management of the patient with other professionals (professionals i.e. , PA, CASE RESOURCE MANAGER, lab, RT, psych nurse, protective services social worker, machine maintenance servicer, teacher, vessel traffic officer, special education case manager)? Give summary @ -no Was smoking cessation discussed for >3mins.? @ -no Was critical care preformed (if so, how long)? @ -no Were there social determinants of health that impacted care today? How? (Homelessness, low income, unemployed, alcoholism, drug addiction, transportation, low edu. Level, literacy, decrease access to med. care, [facility], rehab)? @ -none Was there de-escalation of care discussed even if they declined (Discuss DNR or withdrawal of care, Hospice)? DNR status @ -no What co-morbidities impacted this encounter? (DM, HTN, Smoking, COPD, CAD, Cancer, CVA, ARF, Chemo, Hep., AIDS, mental health diagnosis, sleep apnea, morbid obesity)? @ -none Was patient admitted / discharged? Hospital course, mention meds given and route, prescriptions, significant lab abnormalities, going to OR and other pertinent info. @ - 83 female to the ER for evaluation patient presents for evaluation of known coronavirus positive for COVID-pneumonia and will admit for weakness COVID- pneumonia and monitoring of troponin Admitted Undiagnosed new problem with uncertain prognosis? @ -no Drug Therapy requiring intensive monitoring for toxicity (Heparin, Nitro, Insulin, Cardizem)? @ -no Were any procedures done? @ -no Diagnosis/symptom? @ -COVID with pneumonia COVID-pneumonia Acute, or Chronic, or Acute on Chronic? @ -Acute Uncomplicated (without systemic symptoms) or Complicated (systemic symptoms)? @ -Complicated Side effects of treatment? @ -no Exacerbation, Progression, or Severe Exacerbation? @ -exacerbation Poses a threat to life or bodily function? How? (Chest pain, [place], [place], pneumonia, PE, COPD, DKA, ARF, appy, cholecystitis, CVA, Diverticulitis, Homicidal, Suicidal, threat to staff... and all critical care pts) @ -yes extremes of a Reevaluation #5: Differential Weakness: Hypoglycemia, shock, sepsis, hyponatremia, anemia, infection, [place], ETOH, adverse medicine reaction, overdose, stroke, this is not meant to be an all-inclusive list. Differential Fever: Pneumonia, viral URI, endocarditis, myocarditis, pericarditis, otitis, sinusitis, peritonsillar Abscess, retropharyngeal Abscess, epiglottitis, peritonitis, appendicitis, Pascale cystitis, diverticulitis, hepatitis, colitis, UTI, PID, TOA, pyelonephritis, prostatitis, epididymitis, meningitis, encephalitis, pulmonary embolism, CVA, thyroid storm, pancreatitis, adrenal crisis, cavernous sinus thrombosis, this is not meant to be an all-inclusive list. - Consultations Consultation #1: Spoke with Dr. Hart for admission EKG Findings - EKG Comments: EKG Findings:: EG is A-fib 99 QRS 111 QTc 414 - EKG Results: EKG: interpreted by HERID Medical Decision Making - Medical Decision Making 83 female to the ER for evaluation patient presents for evaluation of known coronavirus positive for COVID-pneumonia and will admit for weakness COVID- pneumonia and monitoring of troponin - Lab Data Result diagrams: 02/16/24 07:54 02/16/24 07:54 Lab Results 02/14/24 02/14/24 02/14/24 Range/Units 14:40 14:40 14:40 WBC 5.3 (3.8-10.6) k/uL RBC 4.09 (3.80-5.40) m/uL Hgb 12.8 (11.4-16.0) gm/dL Hct 39.8 (34.0-46.0) % MCV 97.5 (80.0-100.0) fL MCH 31.3 (25.0-35.0) pg MCHC 32.1 (31.0-37.0) g/dL RDW 14.9 (11.5-15.5) % Plt Count 171 (150-450) k/uL MPV 7.7 Neutrophils % 68 % Lymphocytes % 18 % Monocytes % 10 % Eosinophils % 1 % Basophils % 1 % Neutrophils # 3.6 (1.3-7.7) k/uL Lymphocytes # 0.9 L (1.0-4.8) k/uL Monocytes # 0.5 (0-1.0) k/uL Eosinophils # 0.1 (0-0.7) k/uL Basophils # 0.0 (0-0.2) k/uL PT 11.1 (10.0-12.5) sec INR 1.0 (<1.2) APTT 24.5 (22.0-30.0) sec Sodium 135 L (137-145) mmol/L Potassium 5.1 (3.5-5.1) mmol/L Chloride 99 (98-107) mmol/L Carbon Dioxide 29 (22-30) mmol/L Anion Gap 7 mmol/L BUN 14 (7-17) mg/dL Creatinine 0.83 (0.52-1.04) mg/dL Est GFR (CKD-EPI)AfAm 76 (>60 ml/min/1.73 sqM) Est GFR (CKD-EPI)NonAf 66 (>60 ml/min/1.73 sqM) Glucose 55 L (74-99) mg/dL Plasma Lactic Acid Cj (0.7-2.0) mmol/L Calcium 8.7 (8.4-10.2) mg/dL Phosphorus 4.5 (2.5-4.5) mg/dL Magnesium 2.0 (1.6-2.3) mg/dL Total Bilirubin 0.7 (0.2-1.3) mg/dL AST 65 H (14-36) U/L ALT 30 (4-34) U/L Alkaline Phosphatase 92 (38-126) U/L Troponin I (0.000-0.034) ng/mL NT-Pro-B Natriuret Pep 3880 pg/mL Total Protein 7.0 (6.3-8.2) g/dL Albumin 3.8 (3.5-5.0) g/dL 02/14/24 02/14/24 Range/Units 14:40 14:40 WBC (3.8-10.6) k/uL RBC (3.80-5.40) m/uL Hgb (11.4-16.0) gm/dL Hct (34.0-46.0) % MCV (80.0-100.0) fL MCH (25.0-35.0) pg MCHC (31.0-37.0) g/dL RDW (11.5-15.5) % Plt Count (150-450) k/uL MPV Neutrophils % % Lymphocytes % % Monocytes % % Eosinophils % % Basophils % % Neutrophils # (1.3-7.7) k/uL Lymphocytes # (1.0-4.8) k/uL Monocytes # (0-1.0) k/uL Eosinophils # (0-0.7) k/uL Basophils # (0-0.2) k/uL PT (10.0-12.5) sec INR (<1.2) APTT (22.0-30.0) sec Sodium (137-145) mmol/L Potassium (3.5-5.1) mmol/L Chloride (98-107) mmol/L Carbon Dioxide (22-30) mmol/L Anion Gap mmol/L BUN (7-17) mg/dL Creatinine (0.52-1.04) mg/dL Est GFR (CKD-EPI)AfAm (>60 ml/min/1.73 sqM) Est GFR (CKD-EPI)NonAf (>60 ml/min/1.73 sqM) Glucose (74-99) mg/dL Plasma Lactic Acid Cj 1.2 (0.7-2.0) mmol/L Calcium (8.4-10.2) mg/dL Phosphorus (2.5-4.5) mg/dL Magnesium (1.6-2.3) mg/dL Total Bilirubin (0.2-1.3) mg/dL AST (14-36) U/L ALT (4-34) U/L Alkaline Phosphatase (38-126) U/L Troponin I 0.072 H* (0.000-0.034) ng/mL NT-Pro-B Natriuret Pep pg/mL Total Protein (6.3-8.2) g/dL Albumin (3.5-5.0) g/dL - Radiology Data Radiology results: report reviewed (Positive for COVID-pneumonia), image reviewed Disposition Clinical Impression: Confusion, Acute renal failure, COVID, Pneumonia due to COVID-19 virus, Pneumonia Disposition: ADMITTED IP TO THIS [facility] Condition: Serious Is patient prescribed a controlled substance at d/c from ED?: No Time of Disposition: 16:00
[2024-02-14 14:48] LABS: Basophils % (A) 1 %; Eosinophils # (A) 0.1 k/uL (0-0.7); Eosinophils % (A) 1 %; HCT 39.8 % (34.0-46.0); HGB 12.8 gm/dL (11.4-16.0); Lymphocytes # (A) 0.9 k/uL (1.0-4.8); Lymphocytes % (A) 18 %; MCH 31.3 pg (25.0-35.0); MCHC 32.1 g/dL (31.0-37.0); MCV 97.5 fL (80.0-100.0); Mean Platelet Volume 7.7; Monocytes # (A) 0.5 k/uL (0-1.0); Monocytes % (A) 10 %; Neutrophils # (A) 3.6 k/uL (1.3-7.7); Neutrophils % (A) 68 %; Platelet Count 171 k/uL (150-450); RBC 4.09 m/uL (3.80-5.40); RDW 14.9 % (11.5-15.5); WBC 5.3 k/uL (3.8-10.6)
--- NOTE | 2024-02-14 14:54 | XR ---
EXAMINATION TYPE: XR chest 1V portable DATE OF EXAM: 02/14/2024 2:48 PM COMPARISON: Chest radiographs from 12/22/2023 TECHNIQUE: XR chest 1V portable Portable AP radiograph of the chest. CLINICAL INDICATION:Female, 83 years old with history of cough; FINDINGS: Lungs/Pleura: There is no evidence of pleural effusion or pneumothorax. Scattered subtle perihilar o pacities. Chronic elevation of the right hemidiaphragm. Pulmonary vascularity: Unremarkable. Heart/mediastinum: Cardiomediastinal silhouette is unremarkable. Atherosclerotic calcifications are seen in the aorta. Musculoskeletal: No acute osseous pathology. IMPRESSION: Scattered perihilar opacities likely related to reported COVID. [facility], , 02/14/2024 2:52 PM
[2024-02-14 15:03] LABS: ALT 30 U/L (4-34); African American GFR (CKD) 76 (>60 ml/min/1.73 sqM); Anion Gap 7 mmol/L; Blood Urea Nitrogen 14 mg/dL (7-17); Calcium 8.7 mg/dL (8.4-10.2); Carbon Dioxide 29 mmol/L (22-30); Chloride 99 mmol/L (98-107); Glucose 55 mg/dL (74-99); Non-African American GFR(CKD) 66 (>60 ml/min/1.73 sqM); Sodium 135 mmol/L (137-145)
[2024-02-14 15:05] LABS: Partial Thromboplastin Time 24.5 sec (22.0-30.0); Phosphorus 4.5 mg/dL (2.5-4.5); Potassium 5.1 mmol/L (3.5-5.1); Prothrombin Time 11.1 sec (10.0-12.5)
[2024-02-14 15:06] LABS: AST 65 U/L (14-36); Albumin 3.8 g/dL (3.5-5.0); Alkaline Phosphatase 92 U/L (38-126); Total Bilirubin 0.7 mg/dL (0.2-1.3)
[2024-02-14] MEDS: SODIUM CHLORIDE 0.9% 1,000 ML IV STA ×2 (15:07→23:13)
[2024-02-14] MEDS: ONDANSETRON 4 MG/2 ML VIAL IVP STA (15:07)
[2024-02-14 15:12] LABS: NT-Pro-B-Type Natriuretic Pept 3880 pg/mL
[2024-02-14] MEDS ORDERED: NALOXONE 0.4 MG/ML 1 ML VIAL IV PRN (15:52)
[2024-02-14] MEDS ORDERED: ONDANSETRON 4 MG/2 ML VIAL IVP PRN (15:52)
[2024-02-14] MEDS: oxyCODONE-APAP 7.5-325MG 1 EACH TAB PO PRN (18:19)
[2024-02-14] MEDS ORDERED: NITROGLYCERIN SL TABS 0.4 MG TAB SUBLINGUAL PRN (23:10)
[2024-02-14] MEDS ORDERED: SENNOSIDES 8.6 MG TAB PO PRN (23:10)
[2024-02-14] MEDS ORDERED: DOCUSATE 100 MG CAP PO PRN (23:10)
[2024-02-14] MEDS ORDERED: MAGNESIUM HYDROXIDE 2,400 MG/30 ML CUP PO PRN (23:10)
[2024-02-14] MEDS ORDERED: ALBUTEROL NEBULIZED 2.5 MG/3 ML INHALATION PRN (23:10)
[2024-02-14] MEDS: SODIUM CHLORIDE 0.9% 1,000 ML IV SCH (23:13)
[2024-02-14] MEDS: DIGOXIN 125 MCG TAB PO SCH (23:28)
[2024-02-15] MEDS ORDERED: ALBUTEROL HFA INHALER INHALATION PRN (00:54)
[2024-02-15] MEDS: traZODone HCL 50 MG TAB PO SCH (01:37)
[2024-02-15] MEDS: methocarbamoL 750 MG TAB PO SCH (01:37)
[2024-02-15] MEDS: GABAPENTIN 400 MG CAP PO SCH (01:37)
[2024-02-15] MEDS: ACETAMINOPHEN TAB 500 MG TAB PO SCH (01:37)
[2024-02-15] MEDS: LATANOPROST 0.005% OPHTH DROPS 2.5 ML BTL BOTH EYES SCH (01:38)
[2024-02-15] MEDS ORDERED: DEXTROSE 50% SYRINGE 50 ML IVP PRN (01:44)
[2024-02-15 05:11] LABS: Glucose,Whole Blood 56 mg/dL (70-110)
[2024-02-15] MEDS: DEXTROSE 50% SYRINGE 50 ML IVP PRN (05:36)
[2024-02-15] MEDS: INSULIN ASPART (NovoLOG) 100 UNIT/ML VIAL SQ SCH (05:44)
[2024-02-15 05:50] LABS: Glucose,Whole Blood 111 mg/dL (70-110)
--- NOTE | 2024-02-15 06:48 | P.CNPUL ---
History of Present Illness Consult date: 02/15/24 Requesting physician: Keon Nguyen Reason for consult: other (COVID positive) Chief complaint: Weakness History of present illness: Patient is a 83-year-old female with past medical history significant for A-fib ( anticoagulated on Eliquis), coronary artery disease, diabetes mellitus, hyperlipidemia, hypertension, rheumatoid arthritis maintained on Humira, Sjogren's, hypothyroidism, among other things. Patient was sent into emergency department yesterday afternoon, reportedly tested positive for coronavirus at outside facility. She is an [facility] resident, I am told she resides at [facility]. She is a relatively poor historian. She is yelling out "please help me", when I go in the room she does not have any request. Does tell me that she has had several days worth of runny nose, sore throat, and a occasional nonproductive cough. Denies any shortness of breath, sputum production, fevers, chest pain, hemoptysis. Has had some nausea without any emesis. Denies diarrhea. States she has been eating and drinking appropriately. Chest x-ray demonstrating scattered perihilar opacities. CBC is unremarkable, no leukocytosis. CMP also unremarkable, electrolytes are WDL. Normal saline infusing at 75 mL/h. EKG: Atrial fibrillation, rate 99 bpm, mild ST depressions in leads II, 3, aVF, unchanged. Troponins were elevated at 0.072, and down to 0.06. NT proBNP elevated at 3880. Does take the Bumex on outpatient basis. Most recent available echocardiogram, taken November, estimating a preserved left ventricular ejection fraction of 50-55 %, LVH, moderate aortic and mitral regurgitation with significant calcification, moderate pulmonary regurgitation Current vitals: Temperature 98.4 F, heart rate 85 beats per minutes, blood pressure 103/57 mmHg, SpO2 98% on room air. Review of Systems Constitutional: Reports fatigue, Denies chills, Denies fever, Denies poor appetite, Denies weight gain, Denies weight loss Ears, nose, mouth and throat: Reports nasal congestion, Reports nasal discharge, Reports sore throat, Denies headache, Denies sinus pressure Cardiovascular: Denies chest pain, Denies leg edema, Denies orthopnea, Denies palpitations, Denies paroxysmal nocturnal dyspnea, Denies syncope Respiratory: Reports cough, Denies congestion, Denies cough with sputum, Denies dyspnea, Denies excessive sputum, Denies hemoptysis, Denies home oxygen Gastrointestinal: Reports nausea, Denies abdominal pain, Denies diarrhea, Denies loss of appetite, Denies vomiting Genitourinary: Denies dysuria Musculoskeletal: Denies limitation of motion Integumentary: Denies rash Neurological: Denies change in speech, Denies numbness, Denies paralysis, Denies paresthesias, Denies seizures, Denies syncope, Denies visual changes Psychiatric: Reports depression, Denies anxiety, Denies suicidal ideation Past Medical History Past Medical History: Atrial Fibrillation, Coronary Artery Disease (CAD), Cancer, Diabetes Mellitus, Hyperlipidemia, Hypertension, Musculoskeletal Disorder, Neurologic Disorder, Osteoarthritis (OA), Pneumonia, Renal Disease, Rheumatoid Arthritis (RA), Skin Disorder, Thyroid Disorder Additional Past Medical History / Comment(s): Morbid obesity, chronic atrial fibrillation, diabetes mellitus type 2, hypertension, hyperlipidemia, spinal stenosis, osteoarthritis, hypothyroidism, hypertension, history of skin melanoma, history of bursitis with MRSA post I&D, rheumatoid arthritis, Sjogren's disease, mediastinal lymphadenopathy,, Falls History of Any Multi-Drug Resistant Organisms: MRSA Date of last positivie culture/infection: 09/02/22 MDRO Source:: Right Leg Past Surgical History: Back Surgery, Breast Surgery, Cholecystectomy, Heart Catheterization, Joint Replacement, Orthopedic Surgery Additional Past Surgical History / Comment(s): Bilateral cataracts with lens i mplants, arthroscopies to lt wrist, gualberto knees, gualberto ankles, gualberto hips, lt hip replacment and redone, L/R shoulder sxs, rt breast bx-benign, egd/colonoscopy, skin cancer removal L arm, Lumbar fixnation possible broken Past Anesthesia/Blood Transfusion Reactions: No Reported Reaction Additional Past Anesthesia/Blood Transfusion Reaction / Comment(s): Pt has been told not to have anesthesia metabolized by the kidneys and has neurologic Sjogren's with post anesthesia paralysis. Past Psychological History: No Psychological Hx Reported Additional Psychological History / Comment(s): in Dec 2023. Smoking Status: Former smoker Past Alcohol Use History: None Reported Additional Past Alcohol Use History / Comment(s): Pt started smoking in 1961 and quit in 1969 Past Drug Use History: None Reported - Past Family History Mother Family Medical History: CVA/TIA Additional Family Medical History / Comment(s): RUPTURED BOWEL Father Family Medical History: Cancer, Pneumonia Additional Family Medical History / Comment(s): ASPIRATIVE PNA Sister(s) Additional Family Medical History / Comment(s): at age 34 with lupus Medications and Allergies Home Medications Medication Instructions Recorded Confirmed Type Latanoprost [Xalatan 0.005%] 1 drop BOTH EYES HS@08/11/17 02/14/24 History Calcium Citrate/Vitamin D3 1 tab PO DAILY@79911/16/21 02/14/24 History [Citracal + D Maximum Caplet] Digoxin [Lanoxin] 125 mcg PO Q48H 11/16/21 02/14/24 History Nitroglycerin Sl Tabs [Nitrostat] 0.4 mg SL Q5M PRN 11/16/21 02/14/24 History Adalimumab [Humira(Cf) Pen] 40 mg SQ Q14D 01/09/22 02/14/24 History Apixaban [Eliquis] 5 mg PO BID@799,199905/02/22 02/14/24 History INSULIN LISPRO (HumaLOG) [humaLOG] 6 units SQ AC-TID@,05/02/22 02/14/24 History INSULIN LISPRO (HumaLOG) [humaLOG] See Protocol SQ AC-TID@,,05/02/22 02/14/24 History Levothyroxine Sodium [Synthroid] 150 mcg PO DAILY@79909/02/22 02/14/24 History traZODone HCL [Desyrel] 50 mg PO HS@199912/15/22 02/14/24 History Tolterodine ER [Detrol LA] 4 mg PO DAILY@79905/15/23 02/14/24 History metFORMIN HCL [Glucophage] 1,000 mg PO BID@799,199905/25/23 02/14/24 History Acetaminophen Tab [Tylenol] 500 mg PO QID@,,,11/23/23 02/14/24 History Gabapentin [Neurontin] 400 mg PO QID@,,,11/23/23 02/14/24 History Loratadine [Claritin] 10 mg PO DAILY@79911/23/23 02/14/24 History Magnesium Oxide [Mag-Ox] 250 mg PO DAILY@79911/23/23 02/14/24 History Ondansetron Odt [Zofran ODT] 8 mg PO TID 11/23/23 02/14/24 History Potassium Chloride ER [K-Dur 20] 20 meq PO BID@08,199911/23/23 02/14/24 History SILVER sulfADIAZINE Cream 1 applic TOPICAL DAILY@79901/05/24 02/14/24 History [Silvadene 1% Cream] methocarbamoL [Robaxin-750] 750 mg PO QID@02,08,,01/05/24 02/14/24 History Magnesium Hydroxide [Milk of 2,400 mg PO DAILY PRN ml 01/10/24 02/14/24 Rx Magnesia] Albuterol Nebulized [Ventolin 2.5 mg INHALATION RT-Q6H PRN 02/14/24 02/14/24 History Nebulized] Bumetanide [Bumex] 1 mg PO DAILY@79902/14/24 02/14/24 History Docusate [Colace] 100 mg PO BID PRN 02/14/24 02/14/24 History Empagliflozin [Jardiance] 10 mg PO DAILY@79902/14/24 02/14/24 History Insulin Glargine,Hum.rec.anlog 40 units SQ BID@08,199902/14/24 02/14/24 History [Lantus Solostar Pen] Lidocaine 4% Patch 1 patch TOPICAL HS@199902/14/24 02/14/24 History Multivitamins, Thera [Multivitamin 1 tab PO DAILY@0802/14/24 02/14/24 History (formulary)] Sennosides [Senokot] 17.2 mg PO HS PRN 02/14/24 02/14/24 History oxyCODONE-APAP 7.5-325MG [Percocet 1 tab PO Q6H PRN 02/14/24 02/14/24 History 7.5-325 mg] Allergies Allergy/AdvReac Type Severity Reaction Status Date / Time adhesive Allergy Rash/Hives Verified 02/14/24 14:57 cephalexin [From Keflex] Allergy Rash/Hives Verified 02/14/24 14:57 grass pollen Allergy Unknown Verified 02/14/24 14:57 mold Allergy Unknown Verified 02/14/24 14:57 newspaper ink Allergy Mild Unknown Uncoded 02/14/24 14:57 Physical Exam Vitals: Vital Signs Temp Pulse Pulse Resp BP BP Pulse Ox 02/15/24 03:15 98.4 F 85 16 103/57 98 02/14/24 23:00 98.0 F 63 18 124/62 96 02/14/24 19:00 98 18 118/58 95 02/14/24 17:00 97 18 113/58 97 02/14/24 15:00 87 20 112/54 98 02/14/24 13:47 98.7 F 85 20 118/55 95 Intake and Output 02/14/24 02/14/24 02/15/24 14:59 22:59 06:59 Other: Voiding Method Toilet # Voids 1 Weight 120.202 kg 120.202 kg GENERAL EXAM: Alert, 83-year-old obese white female, yelling out in the hallway "please help me", when the nurse goes in the room she does not have any specific request. HEAD: Normocephalic and atraumatic EYES: Normal reaction of pupils, equal size. NOSE: Clear with pink turbinates. THROAT: No erythema or exudates. NECK: No masses, no JVD. CHEST: No chest wall deformity. LUNGS: Equal air entry with no crackles, wheeze, rhonchi or dullness. On room air. No conversational dyspnea or accessory muscle use.. CVS: S1 and S2 normal with grade 2 systolic murmur, irregular rhythm. No other extra heart sounds ABDOMEN: No hepatosplenomegaly, active bowel sounds, no guarding or rigidity. SPINE: No scoliosis or deformity SKIN: No rashes CENTRAL NERVOUS SYSTEM: No focal deficits, tone is normal in all 4 extremities. EXTREMITIES: There is mild bilateral lower extremity nonpitting edema. No clubbing, or cyanosis. Peripheral pulses are intact. Results - Laboratory Findings CBC and BMP: 02/15/24 06:40 02/15/24 06:40 PT/INR, D-dimer PT 11.1 sec (10.0-12.5) 02/14/24 14:40 INR 1.0 (<1.2) 02/14/24 14:40 Abnormal lab findings: Abnormal Labs 02/14/24 02/14/24 02/14/24 14:40 14:40 14:40 Lymphocytes # 0.9 L Sodium 135 L Glucose 55 L AST 65 H Troponin I 0.072 H* 02/14/24 23:37 Lymphocytes # Sodium Glucose AST Troponin I 0.060 H* - Diagnostic Findings Chest x-ray: image reviewed Assessment and Plan Assessment: Acute COVID infection, presented with URI-like symptoms and reportedly tested positive for COVID at outside facility, chest x-ray showing stable cardiac silhouette, possible mild PVC, scattered perihilar opacities, NT proBNP elevated at 3880. Elevated troponins, flat not, consistent with ACS Chronic atrial fibrillation, anticoagulated Eliquis History of heart failure with preserved ejection fraction and valvular heart disease; most recent available echocardiogram, taken November, estimating a preserved left ventricular ejection fraction of 50-55 %, LVH, moderate aortic and mitral regurgitation with significant calcification, moderate pulmonic insufficiency Diabetes mellitus type 2 History of hyperlipidemia Hypertension History of coronary artery disease, nonobstructive History of rheumatoid arthritis maintained on Humira History of Sjogren's disease History of hypothyroidism Obesity, with a BMI of 33.1 kg/m [facility] resident Plan: Patient's medications, labs, chest x-ray reviewed On room air oxygen Confirm COVID with PCR swab Respiratory status seems stable Will hold off on any Decadron, as the patient is on room air. Continue on Bumex Anticoagulated on Eliquis We will continue to follow I have personally seen and examined the patient, performed the documentation and the assessment and plan as written. Number of minutes spent on the visit:20 This is a joint evaluation that was done along with the nurse practitioner. This evaluation was done more than 30 minutes. The patient was seen and examined. This 83-year-old female patient developed symptoms of URI and subsequent the patient was diagnosed having a COVID-19 infection in outside [facility]. The patient was brought into us and the positive test was confirmed. She reported generalized weakness. No significant shortness of breath. She is currently on room air oxygen. She is known to have coronary disease, chronic atrial fibrillation maintained on anticoagulation with Eliquis. She also has hypertension hyperlipidemia and diabetes mellitus and rheumatoid arthritis/Sjogren's disease and the patient has been maintained on Humira on an outpatient basis. She also has history of hypothyroidism. She has a preserved LV function on echocardiogram with an ejection fraction of 50 to 55% and mild mitral regurgitation. The patient is calm and comfortable on room air oxygen with a pulse ox of 93%. Afebrile. No nausea vomiting or diarrhea or abdominal pain. All of her blood work is essentially within normal limits. She is being treated conservatively. She is on IV fluids at a rate of 75 cc an hour. Outpatient medications have been resumed. Chest x-ray was also reviewed and there is no airspace disease or consolidation. No pleural effusion. Questionable perihilar opacities noted, nonspecific findings, could be related to COVID-19. Will continue to follow. No significant hypoxemia. The exact onset of her symptoms are not known and I am not in favor of utilizing Paxlovid especially with concerns of drug interaction. Her vaccination status is not known and the patient is not clear on her previous vaccinations. No need for steroids at this point. Time with Patient: Greater than 30
[2024-02-15 07:28] LABS: Basophils % (A) 1 %; Eosinophils # (A) 0.1 k/uL (0-0.7); Eosinophils % (A) 2 %; HCT 38.4 % (34.0-46.0); HGB 12.4 gm/dL (11.4-16.0); Hypochromasia Slight; Lymphocytes # (A) 1.2 k/uL (1.0-4.8); Lymphocytes % (A) 28 %; MCH 31.9 pg (25.0-35.0); MCHC 32.3 g/dL (31.0-37.0); MCV 98.7 fL (80.0-100.0); Macrocytosis Slight; Mean Platelet Volume 7.5; Monocytes # (A) 0.6 k/uL (0-1.0); Monocytes % (A) 13 %; Neutrophils # (A) 2.2 k/uL (1.3-7.7); Neutrophils % (A) 52 %; Platelet Count 158 k/uL (150-450); RBC 3.89 m/uL (3.80-5.40); WBC 4.3 k/uL (3.8-10.6)
[2024-02-15 07:58] LABS: ALT 25 U/L (4-34); AST 40 U/L (14-36); African American GFR (CKD) 86 (>60 ml/min/1.73 sqM); Albumin 3.2 g/dL (3.5-5.0); Alkaline Phosphatase 114 U/L (38-126); Anion Gap 5 mmol/L; Blood Urea Nitrogen 11 mg/dL (7-17); Calcium 8.6 mg/dL (8.4-10.2); Carbon Dioxide 28 mmol/L (22-30); Chloride 102 mmol/L (98-107); Glucose 65 mg/dL (74-99); Non-African American GFR(CKD) 75 (>60 ml/min/1.73 sqM); Phosphorus 3.9 mg/dL (2.5-4.5); Potassium 4.2 mmol/L (3.5-5.1); Sodium 135 mmol/L (137-145); Total Bilirubin 0.5 mg/dL (0.2-1.3)
[2024-02-15] MEDS: NON FORMULARY DRUG (Empagliflozin [Jardiance] 10 MG Tablet) PO SCH (08:29)
[2024-02-15] MEDS: NON FORMULARY DRUG (Calcium Citrate/Vitamin D3 [Citracal + D Maximum Caplet] 1 EACH Tablet PO SCH (08:29)
[2024-02-15] MEDS: MAGNESIUM OXIDE 400 MG TAB PO SCH (08:34)
[2024-02-15] MEDS: ONDANSETRON ODT 4 MG TAB PO SCH (08:34)
[2024-02-15] MEDS: LORATADINE 10 MG TAB PO SCH (08:34)
[2024-02-15] MEDS: BUMETANIDE 1 MG TAB PO SCH (08:34)
[2024-02-15] MEDS: APIXABAN 5 MG TAB PO SCH (08:35)
[2024-02-15] MEDS: POTASSIUM CHLORIDE ER 20 MEQ TAB.ER PO SCH (08:35)
[2024-02-15] MEDS: LEVOTHYROXINE 75 MCG TAB PO SCH (08:35)
[2024-02-15] MEDS: DIGOXIN 125 MCG TAB PO SCH (08:35)
[2024-02-15] MEDS: MULTIVITAMINS, THERA 1 EACH TAB PO SCH (08:35)
--- NOTE | 2024-02-15 08:38 | P.HPIM ---
History of Present Illness H&P Date: 02/15/24 This is an 83-year-old female who presented to the emergency department after testing positive for COVID at an outside facility. Patiently currently has been staying at [facility]. She recently lost her . She reports a runny nose sore throat and cough for several days. She denies any chest pain or shortness of breath. Chest x-ray on admission showed scattered perihilar opacities. Troponins initially elevated on admission but have trended down. Patient has been giving hospital staff a difficult time yelling out, however she is completely alert and oriented. Further medical history as noted below. Review of Systems Constitutional: Reports fatigue, Denies chills, Denies fever Cardiovascular: Denies chest pain, Denies dyspnea on exertion Respiratory: Reports congestion, Denies cough, Denies dyspnea Gastrointestinal: Reports nausea, Denies vomiting Musculoskeletal: Denies arm numbness/tingling, Denies leg numbness/tingling Neurological: Reports weakness, Denies headaches Past Medical History Past Medical History: Atrial Fibrillation, Coronary Artery Disease (CAD), Cancer, Diabetes Mellitus, Hyperlipidemia, Hypertension, Musculoskeletal Dis order, Neurologic Disorder, Osteoarthritis (OA), Pneumonia, Renal Disease, Rheumatoid Arthritis (RA), Skin Disorder, Thyroid Disorder Additional Past Medical History / Comment(s): Morbid obesity, chronic atrial fibrillation, diabetes mellitus type 2, hypertension, hyperlipidemia, spinal stenosis, osteoarthritis, hypothyroidism, hypertension, history of skin melanoma, history of bursitis with MRSA post I&D, rheumatoid arthritis, Sjogren's disease, mediastinal lymphadenopathy,, Falls History of Any Multi-Drug Resistant Organisms: MRSA Date of last positivie culture/infection: 09/02/22 MDRO Source:: Right Leg Past Surgical History: Back Surgery, Breast Surgery, Cholecystectomy, Heart Catheterization, Joint Replacement, Orthopedic Surgery Additional Past Surgical History / Comment(s): Bilateral cataracts with lens implants, arthroscopies to lt wrist, gualberto knees, gualberto ankles, gualberto hips, lt hip replacment and redone, L/R shoulder sxs, rt breast bx-benign, egd/colonoscopy, skin cancer removal L arm, Lumbar fixnation possible broken Past Anesthesia/Blood Transfusion Reactions: No Reported Reaction Additional Past Anesthesia/Blood Transfusion Reaction / Comment(s): Pt has been told not to have anesthesia metabolized by the kidneys and has neurologic Sjogren's with post anesthesia paralysis. Past Psychological History: No Psychological Hx Reported Additional Psychological History / Comment(s): in Dec 2023. Smoking Status: Former smoker Past Alcohol Use History: None Reported Additional Past Alcohol Use History / Comment(s): Pt started smoking in 1961 and quit in 1969 Past Drug Use History: None Reported - Past Family History Mother Family Medical History: CVA/TIA Additional Family Medical History / Comment(s): RUPTURED BOWEL Father Family Medical History: Cancer, Pneumonia Additional Family Medical History / Comment(s): ASPIRATIVE PNA Sister(s) Additional Family Medical History / Comment(s): at age 34 with lupus Medications and Allergies Home Medications Medication Instructions Recorded Confirmed Type Latanoprost [Xalatan 0.005%] 1 drop BOTH EYES HS@08/11/17 02/14/24 History Calcium Citrate/Vitamin D3 1 tab PO DAILY@0800 11/16/21 02/14/24 History [Citracal + D Maximum Caplet] Digoxin [Lanoxin] 125 mcg PO Q48H 11/16/21 02/14/24 History Nitroglycerin Sl Tabs [Nitrostat] 0.4 mg SL Q5M PRN 11/16/21 02/14/24 History Adalimumab [Humira(Cf) Pen] 40 mg SQ Q14D 01/09/22 02/14/24 History Apixaban [Eliquis] 5 mg PO BID@799,199905/02/22 02/14/24 History INSULIN LISPRO (HumaLOG) [humaLOG] 6 units SQ AC-TID@,,05/02/22 02/14/24 History INSULIN LISPRO (HumaLOG) [humaLOG] See Protocol SQ AC-TID@,,05/02/22 02/14/24 History Levothyroxine Sodium [Synthroid] 150 mcg PO DAILY@0800 09/02/22 02/14/24 History traZODone HCL [Desyrel] 50 mg PO HS@199912/15/22 02/14/24 History Tolterodine ER [Detrol LA] 4 mg PO DAILY@0800 05/15/23 02/14/24 History metFORMIN HCL [Glucophage] 1,000 mg PO BID@08,199905/25/23 02/14/24 History Acetaminophen Tab [Tylenol] 500 mg PO QID@,,,11/23/23 02/14/24 History Gabapentin [Neurontin] 400 mg PO QID@,,,11/23/23 02/14/24 History Loratadine [Claritin] 10 mg PO DAILY@79911/23/23 02/14/24 History Magnesium Oxide [Mag-Ox] 250 mg PO DAILY@79911/23/23 02/14/24 History Ondansetron Odt [Zofran ODT] 8 mg PO TID 11/23/23 02/14/24 History Potassium Chloride ER [K-Dur 20] 20 meq PO BID@799,199911/23/23 02/14/24 History SILVER sulfADIAZINE Cream 1 applic TOPICAL DAILY@79901/05/24 02/14/24 History [Silvadene 1% Cream] methocarbamoL [Robaxin-750] 750 mg PO QID@,,,01/05/24 02/14/24 History Magnesium Hydroxide [Milk of 2,400 mg PO DAILY PRN ml 01/10/24 02/14/24 Rx Magnesia] Albuterol Nebulized [Ventolin 2.5 mg INHALATION RT-Q6H PRN 02/14/24 02/14/24 H istory Nebulized] Bumetanide [Bumex] 1 mg PO DAILY@79902/14/24 02/14/24 History Docusate [Colace] 100 mg PO BID PRN 02/14/24 02/14/24 History Empagliflozin [Jardiance] 10 mg PO DAILY@79902/14/24 02/14/24 History Insulin Glargine,Hum.rec.anlog 40 units SQ BID@799,199902/14/24 02/14/24 History [Lantus Solostar Pen] Lidocaine 4% Patch 1 patch TOPICAL HS@199902/14/24 02/14/24 History Multivitamins, Thera [Multivitamin 1 tab PO DAILY@79902/14/24 02/14/24 History (formulary)] Sennosides [Senokot] 17.2 mg PO HS PRN 02/14/24 02/14/24 History oxyCODONE-APAP 7.5-325MG [Percocet 1 tab PO Q6H PRN 02/14/24 02/14/24 History 7.5-325 mg] Allergies Allergy/AdvReac Type Severity Reaction Status Date / Time adhesive Allergy Rash/Hives Verified 02/14/24 14:57 cephalexin [From Keflex] Allergy Rash/Hives Verified 02/14/24 14:57 grass pollen Allergy Unknown Verified 02/14/24 14:57 mold Allergy Unknown Verified 02/14/24 14:57 newspaper ink Allergy Mild Unknown Uncoded 02/14/24 14:57 Physical Exam Vitals: Vital Signs Temp Pulse Pulse Resp BP BP Pulse Ox 02/15/24 03:15 98.4 F 85 16 103/57 98 02/14/24 23:00 98.0 F 63 18 124/62 96 02/14/24 19:00 98 18 118/58 95 02/14/24 17:00 97 18 113/58 97 02/14/24 15:00 87 20 112/54 98 02/14/24 13:47 98.7 F 85 20 118/55 95 Intake and Output 02/14/24 02/15/24 02/15/24 22:59 06:59 14:59 Other: Voiding Method Toilet # Voids 1 Weight 125.5 kg - Constitutional General appearance: cooperative, no acute distress - EENT Eyes: PERRLA - Neck Neck: no lymphadenopathy, normal ROM, no rigidity - Respiratory Respiratory: bilateral: diminished - Cardiovascular Rhythm: irregularly irregular - Gastrointestinal General gastrointestinal: soft, no tenderness - Integumentary Integumentary: normal, normal turgor - Musculoskeletal Musculoskeletal: generalized weakness - Psychiatric Psychiatric: A&O x's 3 Results CBC & Chem 7: 02/15/24 06:40 02/15/24 06:40 Labs: Abnormal Lab Results - Last 24 Hours (Table) 02/14/24 02/14/24 02/14/24 Range/Units 14:40 14:40 14:40 Lymphocytes # 0.9 L (1.0-4.8) k/uL Sodium 135 L (137-145) mmol/L Glucose 55 L (74-99) mg/dL POC Glucose (mg/dL) (70-110) mg/dL AST 65 H (14-36) U/L Troponin I 0.072 H* (0.000-0.034) ng/mL Total Protein (6.3-8.2) g/dL Albumin (3.5-5.0) g/dL SARS-CoV-2 (PCR) (Not Detectd) 02/14/24 02/15/24 02/15/24 Range/Units 23:37 05:08 05:30 Lymphocytes # (1.0-4.8) k/uL Sodium (137-145) mmol/L Glucose (74-99) mg/dL POC Glucose (mg/dL) 56 L (70-110) mg/dL AST (14-36) U/L Troponin I 0.060 H* (0.000-0.034) ng/mL Total Protein (6.3-8.2) g/dL Albumin (3.5-5.0) g/dL SARS-CoV-2 (PCR) Detected A (Not Detectd) 02/15/24 02/15/24 Range/Units 05:48 06:40 Lymphocytes # (1.0-4.8) k/uL Sodium 135 L (137-145) mmol/L Glucose 65 L (74-99) mg/dL POC Glucose (mg/dL) 111 H (70-110) mg/dL AST 40 H (14-36) U/L Troponin I (0.000-0.034) ng/mL Total Protein 6.0 L (6.3-8.2) g/dL Albumin 3.2 L (3.5-5.0) g/dL SARS-CoV-2 (PCR) (Not Detectd) Thrombosis Risk Factor Assmnt - Choose All That Apply Each Factor Represents 1 point: Obesity (BMI >25), Swollen legs (current) Each Risk Factor Represents 3 Points: Age 75 years or older Thrombosis Risk Factor Assessment Total Risk Factor Score: 5 Thrombosis Risk Factor Assessment Level: High Risk Assessment and Plan (1) COVID Current Visit: Yes Status: Acute Code(s): U07.1 - COVID-19 SNOMED Code(s): 182695146 (2) Atrial fibrillation Current Visit: No Status: Acute Code(s): I48.91 - UNSPECIFIED ATRIAL FIBRILLATION SNOMED Code(s): 53927104 (3) CAD (coronary artery disease) Current Visit: No Status: Acute Code(s): I25.10 - ATHSCL HEART DISEASE OF [place] CORONARY ARTERY W/O ANG PCTRS SNOMED Code(s): 52921420 (4) CHF (congestive heart failure) Current Visit: No Status: Acute Code(s): I50.9 - HEART FAILURE, UNSPECIFIED SNOMED Code(s): 89747359 (5) Diabetes Current Visit: No Status: Acute Code(s): E11.9 - TYPE 2 DIABETES MELLITUS WITHOUT COMPLICATIONS SNOMED Code(s): 95534499 (6) Hyperlipidemia Current Visit: No Status: Acute Code(s): E78.5 - HYPERLIPIDEMIA, UNSPECIFIED SNOMED Code(s): 52215160 (7) Hypertension Current Visit: No Status: Acute Code(s): I10 - ESSENTIAL (PRIMARY) HYPERTENSION SNOMED Code(s): 98477432 Plan: Continue home medications. Check CBC and CMP in the morning. Appreciate pulmonology input. Patient seen and evaluated by nurse practitioner, physician in agreement with plan.
[2024-02-15 11:49] LABS: Glucose,Whole Blood 106 mg/dL (70-110)
[2024-02-15 16:29] LABS: Glucose,Whole Blood 101 mg/dL (70-110)
[2024-02-15 20:33] LABS: Glucose,Whole Blood 152 mg/dL (70-110)
[2024-02-15] MEDS: LIDOCAINE 4% PATCH TOPICAL SCH (20:45)
[2024-02-15 22:59] VITALS: RESP 18
[2024-02-16 06:17] LABS: Glucose,Whole Blood 112 mg/dL (70-110)
--- NOTE | 2024-02-16 08:33 | P.DS ---
Providers Date of admission: 02/14/24 15:55 Attending physician: Nicholas Hart Consults: 02/14/24 23:09 Consult Physician Stat Consulting Provider: Zeynep Crowe Consult Reason/Comments: COVID PNA Do you want consulting provider notified?: Yes, Notify in am Primary care physician: Nicholas Hart [facility] Course: The patient is an 83-year-old white female who tested positive for COVID. The patient was stabilized and on room air. No fever no overt consolidation on x- rays. [employer] consulted and held off on any type of steroids given her respiratory status. No fever underlying history atrial fibrillation COPD with diabetes. Blood sugar is nominal. She is tolerating diet but needs assistance due to generalized weakness. She will be discharged back to [facility] to follow-up in about 3 days. Patient Condition at Discharge: Fair Plan - Discharge Summary Discharge Rx Participant: No New Discharge Prescriptions: Continue Latanoprost [Xalatan 0.005%] 1 drop BOTH EYES HS@0000 Calcium Citrate/Vitamin D3 [Citracal + D Maximum Caplet] 1 tab PO DAILY@0800 Adalimumab [Humira(Cf) Pen] 40 mg SQ Q14D INSULIN LISPRO (HumaLOG) [humaLOG] 6 units SQ AC-TID@08,,17 Levothyroxine Sodium [Synthroid] 150 mcg PO DAILY@0800 traZODone HCL [Desyrel] 50 mg PO HS@2000 metFORMIN HCL [Glucophage] 1,000 mg PO BID@0800,1999 Gabapentin [Neurontin] 400 mg PO QID@02,08,14,20 Acetaminophen Tab [Tylenol] 500 mg PO QID@02,08,14,20 methocarbamoL [Robaxin-750] 750 mg PO QID@02,08,14,20 SILVER sulfADIAZINE Cream [Silvadene 1% Cream] 1 applic TOPICAL DAILY@0800 Magnesium Hydroxide [Milk of Magnesia] 2,400 mg PO DAILY PRN ml PRN Reason: Constipation Docusate [Colace] 100 mg PO BID PRN PRN Reason: Constipation Multivitamins, Thera [Multivitamin (formulary)] 1 tab PO DAILY@0800 Empagliflozin [Jardiance] 10 mg PO DAILY@0800 Nitroglycerin Sl Tabs [Nitrostat] 0.4 mg SL Q5M PRN PRN Reason: Chest Pain Digoxin [Lanoxin] 125 mcg PO Q48H INSULIN LISPRO (HumaLOG) [humaLOG] See Protocol SQ AC-TID@,, Apixaban [Eliquis] 5 mg PO BID@0800,1999 Tolterodine ER [Detrol LA] 4 mg PO DAILY@0800 Ondansetron Odt [Zofran ODT] 8 mg PO TID Potassium Chloride ER [K-Dur 20] 20 meq PO BID@08,1999 Magnesium Oxide [Mag-Ox] 250 mg PO DAILY@0800 Loratadine [Claritin] 10 mg PO DAILY@0800 oxyCODONE-APAP 7.5-325MG [Percocet 7.5-325 mg] 1 tab PO Q6H PRN PRN Reason: Pain Albuterol Nebulized [Ventolin Nebulized] 2.5 mg INHALATION RT-Q6H PRN PRN Reason: Shortness Of Breath Lidocaine 4% Patch 1 patch TOPICAL HS@1999 Insulin Glargine,Hum.rec.anlog [Lantus Solostar Pen] 40 units SQ BID@08,1999 Bumetanide [BUMEX] 1 mg PO DAILY@0800 Sennosides [Senokot] 17.2 mg PO HS PRN PRN Reason: Constipation Discharge Medication List Latanoprost [Xalatan 0.005%] 1 drop BOTH EYES HS@0000 08/11/17 [History] Calcium Citrate/Vitamin D3 [Citracal + D Maximum Caplet] 1 tab PO DAILY@0800 11/16/21 [History] Digoxin [Lanoxin] 125 mcg PO Q48H 11/16/21 [History] Nitroglycerin Sl Tabs [Nitrostat] 0.4 mg SL Q5M PRN 11/16/21 [History] Adalimumab [Humira(Cf) Pen] 40 mg SQ Q14D 01/09/22 [History] Apixaban [Eliquis] 5 mg PO BID@0800,199905/02/22 [History] INSULIN LISPRO (HumaLOG) [humaLOG] 6 units SQ AC-TID@,,05/02/22 [History] INSULIN LISPRO (HumaLOG) [humaLOG] See Protocol SQ AC-TID@,,05/02/22 [History] Levothyroxine Sodium [Synthroid] 150 mcg PO DAILY@79909/02/22 [History] traZODone HCL [Desyrel] 50 mg PO HS@199912/15/22 [History] Tolterodine ER [Detrol LA] 4 mg PO DAILY@79905/15/23 [History] metFORMIN HCL [Glucophage] 1,000 mg PO BID@799,199905/25/23 [History] Acetaminophen Tab [Tylenol] 500 mg PO QID@,,,11/23/23 [History] Gabapentin [Neurontin] 400 mg PO QID@,,,11/23/23 [History] Loratadine [Claritin] 10 mg PO DAILY@79911/23/23 [History] Magnesium Oxide [Mag-Ox] 250 mg PO DAILY@79911/23/23 [History] Ondansetron Odt [Zofran ODT] 8 mg PO TID 11/23/23 [History] Potassium Chloride ER [K-Dur 20] 20 meq PO BID@799,199911/23/23 [History] SILVER sulfADIAZINE Cream [Silvadene 1% Cream] 1 applic TOPICAL DAILY@79901/05/24 [History] methocarbamoL [Robaxin-750] 750 mg PO QID@,,,01/05/24 [History] Magnesium Hydroxide [Milk of Magnesia] 2,400 mg PO DAILY PRN ml 01/10/24 [Rx] Albuterol Nebulized [Ventolin Nebulized] 2.5 mg INHALATION RT-Q6H PRN 02/14/24 [History] Bumetanide [BUMEX] 1 mg PO DAILY@79902/14/24 [History] Docusate [Colace] 100 mg PO BID PRN 02/14/24 [History] Empagliflozin [Jardiance] 10 mg PO DAILY@79902/14/24 [History] Insulin Glargine,Hum.rec.anlog [Lantus Solostar Pen] 40 units SQ BID@799,199902/14/24 [History] Lidocaine 4% Patch 1 patch TOPICAL HS@199902/14/24 [History] Multivitamins, Thera [Multivitamin (formulary)] 1 tab PO DAILY@79924 [History] Sennosides [Senokot] 17.2 mg PO HS PRN 02/14/24 [History] oxyCODONE-APAP 7.5-325MG [Percocet 7.5-325 mg] 1 tab PO Q6H PRN 02/14/24 [History] Follow up Appointment(s)/Referral(s): Nicholas Hart MD [Primary Care Provider] - 3 Days Discharge Disposition: TRANSFER TO SNF/ECF
[2024-02-16 09:23] LABS: HCT 37.6 % (34.0-46.0); HGB 11.7 gm/dL (11.4-16.0); Hypochromasia Moderate; MCH 30.8 pg (25.0-35.0); MCHC 31.1 g/dL (31.0-37.0); Mean Platelet Volume 7.3; Platelet Count 150 k/uL (150-450); RBC 3.79 m/uL (3.80-5.40); RDW 14.4 % (11.5-15.5); WBC 4.9 k/uL (3.8-10.6)
[2024-02-16 09:31] LABS: ALT 19 U/L (4-34); AST 35 U/L (14-36); African American GFR (CKD) >90 (>60 ml/min/1.73 sqM); Alkaline Phosphatase 108 U/L (38-126); Anion Gap 5 mmol/L; Blood Urea Nitrogen 11 mg/dL (7-17); Calcium 8.3 mg/dL (8.4-10.2); Carbon Dioxide 28 mmol/L (22-30); Chloride 100 mmol/L (98-107); Glucose 107 mg/dL (74-99); Non-African American GFR(CKD) 82 (>60 ml/min/1.73 sqM); Potassium 4.5 mmol/L (3.5-5.1); Sodium 133 mmol/L (137-145); Total Bilirubin 0.5 mg/dL (0.2-1.3); Total Protein 5.7 g/dL (6.3-8.2)
[2024-02-16 10:23] VITALS: BP 131/63; PULSE 92; TEMP 98.7
[2024-02-16 10:55] LABS: Glucose,Whole Blood 60 mg/dL (70-110)
--- NOTE | 2024-02-16 15:01 | P.PN ---
Subjective Progress Note Date: 02/16/24 Patient is a 83-year-old female with past medical history significant for A-fib ( anticoagulated on Eliquis), coronary artery disease, diabetes mellitus, hyperlipidemia, hypertension, rheumatoid arthritis maintained on Humira, Sjogren's, hypothyroidism, among other things. Patient was sent into emergency department yesterday afternoon, reportedly tested positive for coronavirus at outside facility. She is an [facility] resident, I am told she resides at [facility]. She is a relatively poor historian. She is yelling out "please help me", when I go in the room she does not have any request. Does tell me that she has had several days worth of runny nose, sore throat, and a occasional nonproductive cough. Denies any shortness of breath, sputum production, fevers, chest pain, hemoptysis. Has had some nausea without any emesis. Denies diarrhea. States she has been eating and drinking appropriately. Chest x-ray demonstrating scattered perihilar opacities. CBC is unremarkable, no leukocytosis. CMP also unremarkable, electrolytes are WDL. Normal saline infusing at 75 mL/h. EKG: Atrial fibrillation, rate 99 bpm, mild ST depressions in leads II, 3, aVF, unchanged. Troponins were elevated at 0.072, and down to 0.06. NT proBNP elevated at 3880. Does take the Bumex on outpatient basis. Most recent available echocardiogram, taken November, estimating a preserved left ventricular ejection fraction of 50-55 %, LVH, moderate aortic and mitral r egurgitation with significant calcification, moderate pulmonary regurgitation Current vitals: Temperature 98.4 F, heart rate 85 beats per minutes, blood pressure 103/57 mmHg, SpO2 98% on room air. On 02/16/2024, the patient is being seen for a follow-up. Doing well. No specific complaints. Oxygenation remained stable. No significant respiratory distress. No nausea. No vomiting. No altered mentation. No chest pain or shortness of breath. No significant sputum production. The patient would like to get discharged home. The patient is uncomplicated COVID-19 infection. The labs from today shows a white cell count of 4.9, hemoglobin 11.7 and platelet count of 150. Electrolytes are all within normal limits. The BUN of 11 and a creatinine of 0.6. Objective - Vital Signs Vital signs: Vital Signs Temp 98.7 F 02/16/24 08:00 Pulse 92 02/16/24 08:00 Resp 18 02/16/24 08:00 BP 131/63 02/16/24 08:00 Pulse Ox 95 02/16/24 08:17 FiO2 Intake & Output 02/15/24 02/16/24 02/16/24 18:59 06:59 18:59 Intake Total 106 10 Balance 106 10 Intake: IV 10 Invasive Line 2 10 Oral 106 Other: Voiding Method Bedside Commode Diaper # Voids 1 2 # Bowel Movements 0 - Exam GENERAL EXAM: Alert, 83-year-old obese white female, yelling out in the hallway "please help me", when the nurse goes in the room she does not have any specific request. HEAD: Normocephalic and atraumatic EYES: Normal reaction of pupils, equal size. NOSE: Clear with pink turbinates. THROAT: No erythema or exudates. NECK: No masses, no JVD. CHEST: No chest wall deformity. LUNGS: Equal air entry with no crackles, wheeze, rhonchi or dullness. On room air. No conversational dyspnea or accessory muscle use.. CVS: S1 and S2 normal with grade 2 systolic murmur, irregular rhythm. No other extra heart sounds ABDOMEN: No hepatosplenomegaly, active bowel sounds, no guarding or rigidity. SPINE: No scoliosis or deformity SKIN: No rashes CENTRAL NERVOUS SYSTEM: No focal deficits, tone is normal in all 4 extremities. EXTREMITIES: There is mild bilateral lower extremity nonpitting edema. No clubbing, or cyanosis. Peripheral pulses are intact. - Labs CBC & Chem 7: 02/16/24 07:54 02/16/24 07:54 Labs: Abnormal Lab Results - Last 24 Hours (Table) 02/14/24 02/15/24 02/16/24 Range/Units 22:49 20:32 06:16 RBC (3.80-5.40) m/uL Sodium (137-145) mmol/L Glucose (74-99) mg/dL POC Glucose (mg/dL) 60 L 152 H 112 H (70-110) mg/dL Calcium (8.4-10.2) mg/dL Total Protein (6.3-8.2) g/dL Albumin (3.5-5.0) g/dL 02/16/24 02/16/24 Range/Units 07:54 07:54 RBC 3.79 L (3.80-5.40) m/uL Sodium 133 L (137-145) mmol/L Glucose 107 H (74-99) mg/dL POC Glucose (mg/dL) (70-110) mg/dL Calcium 8.3 L (8.4-10.2) mg/dL Total Protein 5.7 L (6.3-8.2) g/dL Albumin 3.0 L (3.5-5.0) g/dL Assessment and Plan Assessment: Acute COVID infection, presented with URI-like symptoms and reportedly tested positive for COVID at outside facility, chest x-ray showing stable cardiac silhouette, possible mild PVC, scattered perihilar opacities, NT proBNP elevated at 3880. Asymptomatic. Elevated troponins, flat not, consistent with ACS Chronic atrial fibrillation, anticoagulated Eliquis History of heart failure with preserved ejection fraction and valvular heart disease; most recent available echocardiogram, taken November, estimating a preserved left ventricular ejection fraction of 50-55 %, LVH, moderate aortic and mitral regurgitation with significant calcification, moderate pulmonic insufficiency Diabetes mellitus type 2 History of hyperlipidemia Hypertension History of coronary artery disease, nonobstructive History of rheumatoid arthritis maintained on Humira History of Sjogren's disease History of hypothyroidism Obesity, with a BMI of 33.1 kg/m ECF resident Plan: Uncomplicated COVID-19 infection No respiratory distress and the patient is currently on room air oxygen Resume home medication the patient to be able to get discharged home today ,
== END 2024-02-16 11:32 ==
LOC: EC 13:44 → 3SCARD 15:55
PROVIDERS: ADMIT Family Medicine; ATTEND Family Medicine
DX: U07.1 COVID-19 (principal); J12.82 Pneumonia due to coronavirus disease 2019; N17.9 Acute kidney failure, unspecified; I25.10 Atherosclerotic heart disease of native coronary artery without angina pectoris; E11.9 Type 2 diabetes mellitus without complications; E78.5 Hyperlipidemia, unspecified; I11.0 Hypertensive heart disease with heart failure; I50.32 Chronic diastolic (congestive) heart failure; I48.20 Chronic atrial fibrillation, unspecified; E03.9 Hypothyroidism, unspecified; R79.89 Other specified abnormal findings of blood chemistry; M06.9 Rheumatoid arthritis, unspecified; M35.00 Sjogren syndrome, unspecified; E66.01 Morbid (severe) obesity due to excess calories; Z68.33 Body mass index [BMI] 33.0-33.9, adult; Z85.820 Personal history of malignant melanoma of skin; Z87.891 Personal history of nicotine dependence; Z79.01 Long term (current) use of anticoagulants; Z79.4 Long term (current) use of insulin; Z79.890 Hormone replacement therapy; Z79.84 Long term (current) use of oral hypoglycemic drugs; Z79.899 Other long term (current) drug therapy; Z88.1 Allergy status to other antibiotic agents
CPT/HCPCS: 99285; 36415; 94760; 93005; 97162; 97166; 83880; 80053 ×3; 80162; 83605; 83735 ×2; 84100 ×2; 84484; 85025 ×2; 85027; 85610; 85730; 83036; 87636; 71045; G0378 ×3

== ENCOUNTER 2024-04-28 09:32 | Emergency (ER) | payer MEDICARE ==
[2024-04-28 09:43] VITALS: RESP 18; TEMP 97.6
[2024-04-28] MEDS: HYDROmorphone 0.5 MG/0.5 ML SYRINGE IVP STA (10:34)
[2024-04-28 10:52] LABS: Basophils % (A) 0 %; Eosinophils # (A) 0.2 k/uL (0-0.7); Eosinophils % (A) 4 %; HCT 44.9 % (34.0-46.0); Hypochromasia Moderate; Lymphocytes # (A) 1.7 k/uL (1.0-4.8); Lymphocytes % (A) 31 %; MCHC 31.1 g/dL (31.0-37.0); MCV 96.4 fL (80.0-100.0); Mean Platelet Volume 7.5; Monocytes # (A) 0.4 k/uL (0-1.0); Monocytes % (A) 8 %; Neutrophils % (A) 55 %; Platelet Count 221 k/uL (150-450); RBC 4.66 m/uL (3.80-5.40); RDW 14.4 % (11.5-15.5); WBC 5.5 k/uL (3.8-10.6)
[2024-04-28 11:07] LABS: ALT 13 U/L (4-34); African American GFR (CKD) >90 (>60 ml/min/1.73 sqM); Anion Gap 9 mmol/L; Blood Urea Nitrogen 13 mg/dL (7-17); C Reactive Protein 2.1 mg/dL (<1.0); Calcium 9.3 mg/dL (8.4-10.2); Carbon Dioxide 25 mmol/L (22-30); Chloride 104 mmol/L (98-107); Creatine Kinase 37 U/L (30-135); Glucose 85 mg/dL (74-99); Non-African American GFR(CKD) 88 (>60 ml/min/1.73 sqM); Sodium 138 mmol/L (137-145)
--- NOTE | 2024-04-28 11:12 | ED ---
General Adult HPI - General Chief complaint: Neuro Symptoms/Deficit Stated complaint: Pain all over Time Seen by Provider: 04/28/24 10:45 Source: patient, EMS, RN notes reviewed Mode of arrival: EMS Limitations: no limitations - History of Present Illness Initial comments: This is an 83-year-old female who presents to the emergency department for "pain all over". States that it started last night with pain in the right leg and has now progressed to her whole body. States that even light touch is extremely painful. Also states that she cannot move because of the pain, but is visualized spontaneously moving all extremities. Denies any chest pain or shortness of breath. Believes that this may be related to her autoimmune problems, specifically she thinks she may be having a neurologic manifestation of Sjogren's. - Related Data Home Medications Medication Instructions Recorded Confirmed Latanoprost [Xalatan 0.005%] 1 drop BOTH EYES HS@08/11/17 02/14/24 Calcium Citrate/Vitamin D3 1 tab PO DAILY@0800 11/16/21 02/14/24 [Citracal + D Maximum Caplet] Digoxin [Lanoxin] 125 mcg PO Q48H 11/16/21 02/14/24 Nitroglycerin Sl Tabs [Nitrostat] 0.4 mg SL Q5M PRN 11/16/21 02/14/24 Adalimumab [Humira(Cf) Pen] 40 mg SQ Q14D 01/09/22 02/14/24 Apixaban [Eliquis] 5 mg PO BID@799,199905/02/22 02/14/24 INSULIN LISPRO (HumaLOG) [humaLOG] 6 units SQ AC-TID@,,05/02/22 02/14/24 INSULIN LISPRO (HumaLOG) [humaLOG] See Protocol SQ AC-TID@,05/02/22 02/14/24 Levothyroxine Sodium [Synthroid] 150 mcg PO DAILY@0800 09/02/22 02/14/24 traZODone HCL [Desyrel] 50 mg PO HS@199912/15/22 02/14/24 Tolterodine ER [Detrol LA] 4 mg PO DAILY@0800 05/15/23 02/14/24 metFORMIN HCL [Glucophage] 1,000 mg PO BID@0800,199905/25/23 02/14/24 Acetaminophen Tab [Tylenol] 500 mg PO QID@,,,11/23/23 02/14/24 Gabapentin [Neurontin] 400 mg PO QID@,,,11/23/23 02/14/24 Loratadine [Claritin] 10 mg PO DAILY@79911/23/23 02/14/24 Magnesium Oxide [Mag-Ox] 250 mg PO DAILY@79911/23/23 02/14/24 Ondansetron Odt [Zofran ODT] 8 mg PO TID 11/23/23 02/14/24 Potassium Chloride ER [K-Dur 20] 20 meq PO BID@799,199911/23/23 02/14/24 SILVER sulfADIAZINE Cream 1 applic TOPICAL DAILY@79901/05/24 02/14/24 [Silvadene 1% Cream] methocarbamoL [Robaxin-750] 750 mg PO QID@,,,01/05/24 02/14/24 Albuterol Nebulized [Ventolin 2.5 mg INHALATION RT-Q6H PRN 02/14/24 02/14/24 Nebulized] Bumetanide [BUMEX] 1 mg PO DAILY@79902/14/24 02/14/24 Docusate [Colace] 100 mg PO BID PRN 02/14/24 02/14/24 Empagliflozin [Jardiance] 10 mg PO DAILY@79902/14/24 02/14/24 Insulin Glargine,Hum.rec.anlog 40 units SQ BID@799,199902/14/24 02/14/24 [Lantus Solostar Pen] Lidocaine 4% Patch 1 patch TOPICAL HS@199902/14/24 02/14/24 Multivitamins, Thera [Multivitamin 1 tab PO DAILY@79902/14/24 02/14/24 (formulary)] Sennosides [Senokot] 17.2 mg PO HS PRN 02/14/24 02/14/24 oxyCODONE-APAP 7.5-325MG [Percocet 1 tab PO Q6H PRN 02/14/24 02/14/24 7.5-325 mg] Previous Rx's Medication Instructions Recorded Magnesium Hydroxide [Milk of 2,400 mg PO DAILY PRN ml 01/10/24 Magnesia] Allergies Allergy/AdvReac Type Severity Reaction Status Date / Time adhesive Allergy Rash/Hives Verified 04/28/24 09:43 cephalexin [From Keflex] Allergy Rash/Hives Verified 04/28/24 09:43 grass pollen Allergy Unknown Verified 04/28/24 09:43 mold Allergy Unknown Verified 04/28/24 09:43 newspaper ink Allergy Mild Unknown Uncoded 04/28/24 09:43 Review of Systems ROS Statement: Those systems with pertinent positive or pertinent negative responses have been documented in the HPI. ROS Other: All systems not noted in ROS Statement are negative. Past Medical History Past Medical History: Atrial Fibrillation, Coronary Artery Disease (CAD), Cancer, Diabetes Mellitus, Hyperlipidemia, Hypertension, Musculoskeletal Disorder, Neurologic Disorder, Osteoarthritis (OA), Pneumonia, Renal Disease, Rheumatoid Arthritis (RA), Skin Disorder, Thyroid Disorder Additional Past Medical History / Comment(s): Morbid obesity, chronic atrial fibrillation, diabetes mellitus type 2, hypertension, hyperlipidemia, spinal stenosis, osteoarthritis, hypothyroidism, hypertension, history of skin melanoma, history of bursitis with MRSA post I&D, rheumatoid arthritis, Sjo gren's disease, 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 without any indication of ILD related to RA, Fall on July 22 transfer to [facility] for MRI, then Fall on 11/16/21 History of Any Multi-Drug Resistant Organisms: MRSA Date of last positivie culture/infection: 09/02/22 MDRO Source:: Right Leg Past Surgical History: Back Surgery, Breast Surgery, Cholecystectomy, Heart Catheterization, Joint Replacement, Orthopedic Surgery Additional Past Surgical History / Comment(s): Bilateral cataracts with lens implants, arthroscopies to lt wrist, gualberto knees, gualberto ankles, gualberto hips, lt hip replacment and redone, L/R shoulder sxs, rt breast bx-benign, egd/colonoscopy, skin cancer removal L arm, Lumbar fixnation possible broken Past Anesthesia/Blood Transfusion Reactions: No Reported Reaction Additional Past Anesthesia/Blood Transfusion Reaction / Comment(s): Pt has been told not to have anesthesia metabolized by the kidneys and has neurologic Sjogren's with post anesthesia paralysis. Past Psychological History: No Psychological Hx Reported Smoking Status: Former smoker Past Alcohol Use History: None Reported Past Drug Use History: None Reported - Past Family History Mother Family Medical History: CVA/TIA Additional Family Medical History / Comment(s): RUPTURED BOWEL Father Family Medical History: Cancer, Pneumonia Additional Family Medical History / Comment(s): ASPIRATIVE PNA Sister(s) Additional Family Medical History / Comment(s): at age 34 with lupus General Exam Limitations: no limitations General appearance: alert, in no apparent distress Head exam: Present: atraumatic, normocephalic, normal inspection Respiratory exam: Present: normal lung sounds bilaterally. Absent: respiratory distress, wheezes, rales, rhonchi, stridor Cardiovascular Exam: Present: regular rate, normal rhythm Neurological exam: Present: alert, oriented X3, CN II-XII intact Psychiatric exam: Present: normal affect, normal mood Skin exam: Present: warm, dry, intact, normal color. Absent: rash Course Vital Signs 04/28/24 04/28/24 09:38 14:45 Temperature 97.6 F Pulse Rate 65 72 Respiratory 18 18 Rate Blood Pressure 127/66 110/78 O2 Sat by Pulse 98 98 Oximetry Medical Decision Making - Medical Decision Making This is an 83-year-old female who presents to the emergency department for pain all over. Was pt. sent in by a medical professional or institution? @ -No Did you speak to anyone other than the patient for history? @ -No Did you review nursing and triage notes? @ -Yes, and I agree, it is accurate with regards to the patient's symptoms. Were old charts reviewed? @ -No Differential Diagnosis? @ -Viral illness, electrolyte abnormality, infection, neurologic issue, this is not meant to be an all-inclusive list. EKG interpreted by me (3pts min.)? @ -EKG interpreted by me demonstrating the following: Atrial fibrillation. Ventricular rate 69 bpm, QRS duration 112 ms, QTc 458 ms. X-rays interpreted by me (1pt min.)? @ -Not obtained CT interpreted by me (1pt min.)? @ -Not obtained U/S interpreted by me (1pt. min.)? @ -Not obtained What testing was considered but not performed? (CT, X-rays, U/S, labs)? Why? @ -None What meds were considered but not given? Why? @ -None Did you discuss the management of the patient with other professionals? @ -No Did you reconcile home meds? @ -No Was smoking cessation discussed for >3mins.? @ -No Was critical care preformed (if so, how long)? @ -No Were there social determinants of health that impacted care today? How? (Homelessness, low income, unemployed, alcoholism, drug addiction, transportation, low edu. Level, literacy, decrease access to med. care, skilled nursing, rehab)? @ -No Was there de-escalation of care discussed even if they declined? (Discuss DNR or withdrawal of care, Hospice)? @ -No What co-morbidities impacted this encounter? (DM, HTN, Smoking, COPD, CAD, Cancer, CVA, Hep., AIDS, mental health diagnosis, sleep apnea, morbid obesity)? @ -Sjogren's disease, osteoarthritis Was patient admitted / discharged? @ -Discharged. Lab work unremarkable. COVID, influenza, and RSV testing negative. The cause of her pain is not entirely clear. Patient was very difficult to work with. Any light touch would send her into a rage and she was not very cooperative. She believes that she is experiencing a neurologic manifestation of Sjogren's disease. I did review her MAPS and it appears that she had a 30-day supply of Percocet filled on 03/24. I am not sure if she may have run out of this and is due for a refill, causing her pain to flareup. We were able to get her pain to a manageable level in the emergency department. Advised she needs to follow-up with her primary care provider in the next couple of days for reevaluation. Patient discharged back to [facility] via EMS in stable condition. Case discussed with ED attending Dr. Steinberg. Return precautions reviewed in depth, the patient is instructed to return to the emergency department with any new, worsening, or concerning symptoms. Patient verbalized understanding. Undiagnosed new problem with uncertain prognosis? @ -None Drug Therapy requiring intensive monitoring for toxicity (Heparin, Nitro, Insulin, Cardizem)? @ -None Were any procedures done? @ -None Diagnosis/symptom? @ -Whole body pain Acute, or Chronic, or Acute on Chronic? @ -Acute Uncomplicated (without systemic symptoms) or Complicated (systemic symptoms)? @ -Uncomplicated Side effects of treatment? @ -None Exacerbation, Progression, or Severe Exacerbation] @ -Not applicable Poses a threat to life or bodily function? @ -No - Lab Data Result diagrams: 04/28/24 10:26 04/28/24 10:26 Lab Results 04/28/24 04/28/24 04/28/24 Range/Units 10:26 10: 10:26 WBC 5.5 (3.8-10.6) k/uL RBC 4.66 (3.80-5.40) m/uL Hgb 14.0 (11.4-16.0) gm/dL Hct 44.9 (34.0-46.0) % MCV 96.4 (80.0-100.0) fL MCH 30.0 (25.0-35.0) pg MCHC 31.1 (31.0-37.0) g/dL RDW 14.4 (11.5-15.5) % Plt Count 221 (150-450) k/uL MPV 7.5 Neutrophils % 55 % Lymphocytes % 31 % Monocytes % 8 % Eosinophils % 4 % Basophils % 0 % Neutrophils # 3.0 (1.3-7.7) k/uL Lymphocytes # 1.7 (1.0-4.8) k/uL Monocytes # 0.4 (0-1.0) k/uL Eosinophils # 0.2 (0-0.7) k/uL Basophils # 0.0 (0-0.2) k/uL Hypochromasia Moderate Sodium 138 (137-145) mmol/L Potassium 5.0 (3.5-5.1) mmol/L Chloride 104 (98-107) mmol/L Carbon Dioxide 25 (22-30) mmol/L Anion Gap 9 mmol/L BUN 13 (7-17) mg/dL Creatinine 0.55 (0.52-1.04) mg/dL Est GFR (CKD-EPI)AfAm >90 (>60 ml/min/1.73 sqM) Est GFR (CKD-EPI)NonAf 88 (>60 ml/min/1.73 sqM) Glucose 85 (74-99) mg/dL Plasma Lactic Acid Cj 1.8 (0.7-2.0) mmol/L Calcium 9.3 (8.4-10.2) mg/dL Phosphorus 4.3 (2.5-4.5) mg/dL Magnesium 2.0 (1.6-2.3) mg/dL Total Bilirubin 1.0 (0.2-1.3) mg/dL AST 37 H (14-36) U/L ALT 13 (4-34) U/L Alkaline Phosphatase 69 (38-126) U/L Creatine Kinase 37 (30-135) U/L C-Reactive Protein 2.1 H (<1.0) mg/dL Total Protein 7.1 (6.3-8.2) g/dL Albumin 3.6 (3.5-5.0) g/dL Influenza Type A (PCR) (Not Detectd) Influenza Type B (PCR) (Not Detectd) RSV (PCR) (Not Detectd) SARS-CoV-2 (PCR) (Not Detectd) 04/28/24 Range/Units 10:26 WBC (3.8-10.6) k/uL RBC (3.80-5.40) m/uL Hgb (11.4-16.0) gm/dL Hct (34.0-46.0) % MCV (80.0-100.0) fL MCH (25.0-35.0) pg MCHC (31.0-37.0) g/dL RDW (11.5-15.5) % Plt Count (150-450) k/uL MPV Neutrophils % % Lymphocytes % % Monocytes % % Eosinophils % % Basophils % % Neutrophils # (1.3-7.7) k/uL Lymphocytes # (1.0-4.8) k/uL Monocytes # (0-1.0) k/uL Eosinophils # (0-0.7) k/uL Basophils # (0-0.2) k/uL Hypochromasia Sodium (137-145) mmol/L Potassium (3.5-5.1) mmol/L Chloride (98-107) mmol/L Carbon Dioxide (22-30) mmol/L Anion Gap mmol/L BUN (7-17) mg/dL Creatinine (0.52-1.04) mg/dL Est GFR (CKD-EPI)AfAm (>60 ml/min/1.73 sqM) Est GFR (CKD-EPI)NonAf (>60 ml/min/1.73 sqM) Glucose (74-99) mg/dL Plasma Lactic Acid Cj (0.7-2.0) mmol/L Calcium (8.4-10.2) mg/dL Phosphorus (2.5-4.5) mg/dL Magnesium (1.6-2.3) mg/dL Total Bilirubin (0.2-1.3) mg/dL AST (14-36) U/L ALT (4-34) U/L Alkaline Phosphatase (38-126) U/L Creatine Kinase (30-135) U/L C-Reactive Protein (<1.0) mg/dL Total Protein (6.3-8.2) g/dL Albumin (3.5-5.0) g/dL Influenza Type A (PCR) Not Detected (Not Detectd) Influenza Type B (PCR) Not Detected (Not Detectd) RSV (PCR) Not Detected (Not Detectd) SARS-CoV-2 (PCR) Not Detected (Not Detectd) - Radiology Data Radiology results: report reviewed, image reviewed Disposition Clinical Impression: Whole body pain Disposition: HOME SELF-CARE Additional Instructions: Return to the emergency department with any new, worsening, or concerning symptoms. Follow up with your primary care provider in 1-2 days. Is patient prescribed a controlled substance at d/c from ED?: No Referrals: Nicholas Hart MD [Primary Care Provider] - 1-2 days Time of Disposition: 13:32
[2024-04-28 11:14] LABS: Phosphorus 4.3 mg/dL (2.5-4.5)
[2024-04-28 11:15] LABS: AST 37 U/L (14-36); Albumin 3.6 g/dL (3.5-5.0); Alkaline Phosphatase 69 U/L (38-126); Total Protein 7.1 g/dL (6.3-8.2)
[2024-04-28 11:27] LABS: Influenza A Not Detected (Not Detectd); Influenza B Not Detected (Not Detectd); RSV Not Detected (Not Detectd)
[2024-04-28] MEDS: methylPREDNISolone SOD SUCCI 125 MG/2 ML VIAL IV STA (11:39)
[2024-04-28] MEDS: KETOROLAC 15 MG/ML 1 ML VIAL IVP STA ×2 (11:39→14:26)
[2024-04-28] MEDS: ACETAMINOPHEN TAB 500 MG TAB PO STA (14:25)
[2024-04-28] MEDS: HYDROmorphone 1 MG/ML 1 ML SYRINGE IVP STA (14:29)
[2024-04-28 14:45] VITALS: BP 110/78; PULSE 72
== END 2024-04-28 14:45 | disposition home or self-care (01) ==
LOC: EC 09:32
DX: M79.604 Pain in right leg (principal); M35.00 Sjogren syndrome, unspecified; M19.90 Unspecified osteoarthritis, unspecified site; Z87.891 Personal history of nicotine dependence; Z88.1 Allergy status to other antibiotic agents; Z88.8 Allergy status to other drugs, medicaments and biological substances
CPT/HCPCS: 36415; 93005; 80053; 82550; 83605; 83735; 84100; 85025; 86140; 87636; 99284; 96374; 96375 ×2; 96376; J3360; J1171 ×2; J1885

== ENCOUNTER 2024-05-31 15:10 | Observation (INO) | payer MEDICARE ==
[2024-05-31 16:06] LABS: Basophils % (A) 1 %; Eosinophils # (A) 0.2 k/uL (0-0.7); Eosinophils % (A) 3 %; HCT 41.7 % (34.0-46.0); HGB 12.6 gm/dL (11.4-16.0); Hypochromasia Slight; Lymphocytes # (A) 1.4 k/uL (1.0-4.8); Lymphocytes % (A) 22 %; MCH 28.5 pg (25.0-35.0); MCHC 30.2 g/dL (31.0-37.0); MCV 94.2 fL (80.0-100.0); Mean Platelet Volume 7.6; Monocytes # (A) 0.3 k/uL (0-1.0); Monocytes % (A) 5 %; Neutrophils # (A) 4.1 k/uL (1.3-7.7); Neutrophils % (A) 68 %; Platelet Count 207 k/uL (150-450); RBC 4.43 m/uL (3.80-5.40); WBC 6.1 k/uL (3.8-10.6)
[2024-05-31 16:46] LABS: Appearance,Urine Clear (Clear); Bacteria,Urine Occasional /hpf; Bilirubin,Urine Negative (Negative); Blood,Urine Trace (Negative); Color,Urine Colorless; Glucose,Urine (UA) 4+ (Negative); Ketones,Urine 1+ (Negative); Leukocyte Esterase,Urine Negative (Negative); Mucus,Urine Rare /hpf; Nitrite,Urine Negative (Negative); PH, Urine 5.5 (5.0-8.0); Protein,Urine Negative (Negative); RBC,Urine 3 /hpf (0-5); Specific Gravity,Urine 1.009 (1.001-1.035); Urobilinogen,Urine <2.0 mg/dL (<2.0); WBC,Urine 4 /hpf (0-5)
[2024-05-31] MEDS: LEVOFLOXACIN 500MG-D5W PMX 500 MG in DEXTROSE/WATER 1 100ML.BAG IVPB SCH (16:55)
--- NOTE | 2024-05-31 16:56 | ED ---
General Adult HPI - General Chief complaint: Weakness Stated complaint: Failure to thrive Time Seen by Provider: 05/31/24 15:45 Source: patient, EMS, RN notes reviewed, old records reviewed Mode of arrival: EMS Limitations: no limitations - History of Present Illness Initial comments: Patient is an 83-year-old female who presents emergency department for placement. Recently left at nursing facility. Reported she voluntarily left and wanted to go home as she thought she could take care of herself. However patient returns today saying she cannot take care of herself. She is complaining of her chronic pain but otherwise has no acute complaints. Presents for further evaluation. History includes A-fib on blood thinners, CAD, diabetes, hypertension, hyperlipidemia. She ambulates at home at baseline with a walker. - Related Data Home Medications Medication Instructions Recorded Confirmed Latanoprost [Xalatan 0.005%] 1 drop BOTH EYES HS@199908/11/17 05/31/24 Calcium Citrate/Vitamin D3 1 tab PO DAILY@0800 11/16/21 05/31/24 [Citracal + D Maximum Caplet] Digoxin [Lanoxin] 125 mcg PO Q48H 11/16/21 05/31/24 Nitroglycerin Sl Tabs [Nitrostat] 0.4 mg SL Q5M PRN 11/16/21 05/31/24 Adalimumab [Humira(Cf) Pen] 40 mg SQ Q14D 01/09/22 05/31/24 Apixaban [Eliquis] 5 mg PO BID@0800,199905/02/22 05/31/24 INSULIN LISPRO (HumaLOG) [humaLOG] 5 units SQ TID-W/MEALS@,,05/02/22 05/31/24 INSULIN LISPRO (HumaLOG) [humaLOG] See Protocol SQ 05/02/22 05/31/24 TID-W/MEALS@,, traZODone HCL [Desyrel] 50 mg PO HS@199912/15/22 05/31/24 Tolterodine ER [Detrol LA] 4 mg PO DAILY@0800 05/15/23 05/31/24 metFORMIN HCL [Glucophage] 1,000 mg PO BID@799,199905/25/23 05/31/24 Acetaminophen Tab [Tylenol] 500 mg PO QID@02,08,14,20 09/26/24 04/04/25 Loratadine [Claritin] 10 mg PO DAILY@79911/23/23 05/31/24 Magnesium Oxide [Mag-Ox] 250 mg PO DAILY@79911/23/23 05/31/24 Potassium Chloride ER [K-Dur 20] 20 meq PO BID@799,199911/23/23 05/31/24 SILVER sulfADIAZINE Cream 1 applic TOPICAL DAILY@79901/05/24 05/31/24 [Silvadene 1% Cream] methocarbamoL [Robaxin-750] 750 mg PO QID@,,,01/05/24 05/31/24 Albuterol Nebulized [Ventolin 2.5 mg INHALATION RT-Q6H PRN 02/14/24 05/31/24 Nebulized] Bumetanide [BUMEX] 1 mg PO DAILY@79902/14/24 05/31/24 Docusate [Colace] 100 mg PO BID PRN 02/14/24 05/31/24 Empagliflozin [Jardiance] 10 mg PO DAILY@79902/14/24 05/31/24 Insulin Glargine,Hum.rec.anlog 20 units SQ BID@799,199902/14/24 05/31/24 [Lantus Solostar Pen] Lidocaine 4% Patch 1 patch TOPICAL HS@199902/14/24 05/31/24 Multivitamins, Thera [Multivitamin 1 tab PO DAILY@79902/14/24 05/31/24 (formulary)] Sennosides [Senokot] 17.2 mg PO HS PRN 02/14/24 05/31/24 Gabapentin 600 mg PO TID@,,05/31/24 05/31/24 Gentamicin 0.1% Cream 1 applic TOPICAL DAILY 05/31/24 05/31/24 Levothyroxine Sodium [Synthroid] 200 mcg PO DAILY@79905/31/24 05/31/24 oxyCODONE-APAP 10-325MG [Percocet 1 tab PO QID@,,,05/31/24 05/31/24 10-325 mg] Previous Rx's Medication Instructions Recorded Magnesium Hydroxide [Milk of 2,400 mg PO DAILY PRN ml 01/10/24 Magnesia] Allergies Allergy/AdvReac Type Severity Reaction Status Date / Time adhesive Allergy Rash/Hives Verified 05/31/24 16:56 cephalexin [From Keflex] Allergy Rash/Hives Verified 05/31/24 16:56 grass pollen Allergy Unknown Verified 05/31/24 16:56 mold Allergy Unknown Verified 05/31/24 16:56 newspaper ink Allergy Mild Unknown Uncoded 05/31/24 15:23 Review of Systems ROS Statement: Those systems with pertinent positive or pertinent negative responses have been documented in the HPI. Review of Systems: CONST: Denies fever EYES: Denies blurry vision ENT: Denies nasal congestion C/V: Denies Chest pain RESP: Denies shortness of breath GI: Denies abdominal pain : Denies dysuria SKIN: Denies rash. MSK: Denies joint pain. NEURO: Denies headache ROS Other: All systems not noted in ROS Statement are negative. Past Medical History Past Medical History: Atrial Fibrillation, Coronary Artery Disease (CAD), Cancer, Diabetes Mellitus, Hyperlipidemia, Hypertension, Musculoskeletal Disorder, Neurologic Disorder, Osteoarthritis (OA), Pneumonia, Renal Disease, Rheumatoid Arthritis (RA), Skin Disorder, Thyroid Disorder Additional Past Medical History / Comment(s): Morbid obesity, chronic atrial fibrillation, diabetes mellitus type 2, hypertension, hyperlipidemia, spinal stenosis, osteoarthritis, hypothyroidism, hypertension, history of skin melanoma, history of bursitis with MRSA post I&D, rheumatoid arthritis, Sjogren's disease, 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 without any indication of ILD related to RA, Fall on July 22 transfer to [facility] for MRI, then Fall on 11/16/21 History of Any Multi-Drug Resistant Organisms: MRSA Date of last positivie culture/infection: 09/02/22 MDRO Source:: Right Leg Past Surgical History: Back Surgery, Breast Surgery, Cholecystectomy, Heart Catheterization, Joint Replacement, Orthopedic Surgery Additional Past Surgical History / Comment(s): Bilateral cataracts with lens implants, arthroscopies to lt wrist, gualberto knees, gualberto ankles, gualberto hips, lt hip replacment and redone, L/R shoulder sxs, rt breast bx-benign, egd/colonoscopy, skin cancer removal L arm, Lumbar fixnation possible broken Past Anesthesia/Blood Transfusion Reactions: No Reported Reaction Additional Past Anesthesia/Blood Transfusion Reaction / Comment(s): Pt has been told not to have anesthesia metabolized by the kidneys and has neurologic Sjogren's with post anesthesia paralysis. Past Psychological History: No Psychological Hx Reported Smoking Status: Former smoker Past Alcohol Use History: None Reported Past Drug Use History: None Reported - Past Family History Mother Family Medical History: CVA/TIA Additional Family Medical History / Comment(s): RUPTURED BOWEL Father Family Medical History: Cancer, Pneumonia Additional Family Medical History / Comment(s): ASPIRATIVE PNA Sister(s) Additional Family Medical History / Comment(s): at age 34 with lupus General Exam - General Exam Comments Initial Comments: General: Appears in no acute distress. HEAD: Normal with no signs of head trauma. EYES: PERRLA, EOMI, conjunctiva normal, no discharge. ENT: Hearing grossly intact, normal oropharynx. RESPIRATORY: Clear breath sounds bilaterally. No wheezes, rales, or rhonchi. C/V: Regular rate and rhythm. S1 and S2 auscultated, no edema, peripheral pulses 2+ and intact throughout ABD: Abd is soft, nontender, nondistended EXT: Normal range of motion, no obvious deformity SKIN: No rashes or lesions observed on exposed skin. NEURO: Alert and oriented x 4. No focal deficits. Limitations: no limitations Course Vital Signs 05/31/24 05/31/24 05/31/24 15:15 16:00 17:00 Temperature 98.9 F Pulse Rate 62 86 87 Respiratory 18 16 20 Rate Blood Pressure 142/80 114/68 140/80 O2 Sat by Pulse 98 95 97 Oximetry 05/31/24 20:29 Temperature Pulse Rate 106 H Respiratory 18 Rate Blood Pressure 124/67 O2 Sat by Pulse 96 Oximetry Medical Decision Making - Medical Decision Making Was pt. sent in by a medical professional or institution (, PA, FIREWALL ENGINEER, urgent care, hospital, or longterm...) When possible be specific @ -No Did you speak to anyone other than the patient for history (EMS, parent, family, police, friend...)? What history was obtained from this source @ -No Did you review nursing and triage notes (agree or disagree)? Why? @ -I reviewed and agree with nursing and triage notes Were old charts reviewed (outside hosp., previous admission, EMS record, old EKG, old radiological studies, urgent care reports/EKG's, longterm records)? Report findings @ -Old charts reviewed including EKG from April 2024. No significant acute change. Differential Diagnosis (chest pain, altered mental status, abdominal pain women, abdominal pain men, vaginal bleeding, weakness, fever, dyspnea, syncope, headache, dizziness, GI bleed, back pain, seizure, CVA, palpatations, mental health, musculoskeletal)? @ -Debility, failure to thrive, weakness. This list is not all inclusive. EKG interpreted by me (3pts min.). @ -As above X-rays interpreted by me (1pt min.). @ -None done CT interpreted by me (1pt min.). @ -None done U/S interpreted by me (1pt. min.). @ -None done What testing was considered but not performed or refused? (CT, X-rays, U/S, labs)? Why? @ -None What meds were considered but not given or refused? Why? @ -None Did you discuss the management of the patient with other professionals (professionals i.e. , PA, FIREWALL ENGINEER, lab, RT, psych nurse, social scientist, voice studies director, teacher, chief informatics officer, field case manager)? Give summary @ -Discussed with the admitting provider, Dr. Doyle who accepted the admission. Was smoking cessation discussed for >3mins.? @ -No Was critical care preformed (if so, how long)? @ -No Were there social determinants of health that impacted care today? How? (Homelessness, low income, unemployed, alcoholism, drug addiction, transportation, low edu. Level, literacy, decrease access to med. care, intermediate, rehab)? @ -No Was there de-escalation of care discussed even if they declined (Discuss DNR or withdrawal of care, Hospice)? DNR status @ -No What co-morbidities impacted this encounter? (DM, HTN, Smoking, COPD, CAD, Cancer, CVA, ARF, Chemo, Hep., AIDS, mental health diagnosis, sleep apnea, morbid obesity)? @ -None Was patient admitted / discharged? Hospital course, mention meds given and route, prescriptions, significant lab abnormalities, going to OR and other pertinent info. @ -Patient essentially presents for placement. Asked to be discharged home from a nursing facility 1 to 2 days ago. Patient has been home by herself and feels she cannot take care of herself and is asking to be replaced in that facility. Has no acute complaints. Vitals are within acceptable limits. We will obtain basic labs, as well as screening EKG. Patient will be admitted for placement. She was in agreement this plan. Vital signs are within acceptable limits. EKG unremarkable. Laboratory studies within acceptable limits. Discussed results with patient. She will be admitted at this time and she was in agreement the plan. I spoke with the admitting provider, Dr. Doyle who accepted the admission. Undiagnosed new problem with uncertain prognosis? @ -No Drug Therapy requiring intensive monitoring for toxicity (Heparin, Nitro, Insulin, Cardizem)? @ -No Were any procedures done? @ -No Diagnosis/symptom? @ -Debility, weakness Acute, or Chronic, or Acute on Chronic? @ -Acute Uncomplicated (without systemic symptoms) or Complicated (systemic symptoms)? @ -Complicated Side effects of treatment? @ -No Exacerbation, Progression, or Severe Exacerbation? @ -No Poses a threat to life or bodily function? How? (Chest pain, USA, SD, pneumonia, PE, COPD, DKA, ARF, appy, cholecystitis, CVA, Diverticulitis, Homicidal, Suicidal, threat to staff... and all critical care pts) @ -Potentially, yes - Lab Data Result diagrams: 05/31/24 15:50 05/31/24 15:50 Lab Results 05/31/24 05/31/24 05/31/24 Range/Units 15:50 15:50 16:28 WBC 6.1 (3.8-10.6) k/uL RBC 4.43 (3.80-5.40) m/uL Hgb 12.6 (11.4-16.0) gm/dL Hct 41.7 (34.0-46.0) % MCV 94.2 (80.0-100.0) fL MCH 28.5 (25.0-35.0) pg MCHC 30.2 L (31.0-37.0) g/dL RDW 15.0 (11.5-15.5) % Plt Count 207 (150-450) k/uL MPV 7.6 Neutrophils % 68 % Lymphocytes % 22 % Monocytes % 5 % Eosinophils % 3 % Basophils % 1 % Neutrophils # 4.1 (1.3-7.7) k/uL Lymphocytes # 1.4 (1.0-4.8) k/uL Monocytes # 0.3 (0-1.0) k/uL Eosinophils # 0.2 (0-0.7) k/uL Basophils # 0.0 (0-0.2) k/uL Hypochromasia Slight Sodium 137 (137-145) mmol/L Potassium 4.6 (3.5-5.1) mmol/L Chloride 102 (98-107) mmol/L Carbon Dioxide 26 (22-30) mmol/L Anion Gap 9 mmol/L BUN 18 H (7-17) mg/dL Creatinine 0.60 (0.52-1.04) mg/dL Est GFR (CKD-EPI)AfAm >90 (>60 ml/min/1.73 sqM) Est GFR (CKD-EPI)NonAf 85 (>60 ml/min/1.73 sqM) Glucose 141 H (74-99) mg/dL Calcium 9.7 (8.4-10.2) mg/dL Magnesium 1.9 (1.6-2.3) mg/dL Total Bilirubin 0.9 (0.2-1.3) mg/dL AST 22 (14-36) U/L ALT 13 (4-34) U/L Alkaline Phosphatase 105 (38-126) U/L Total Protein 7.2 (6.3-8.2) g/dL Albumin 3.8 (3.5-5.0) g/dL Urine Color Colorless Urine Appearance Clear (Clear) Urine pH 5.5 (5.0-8.0) Ur Specific [place] 1.009 (1.001-1.035) Urine Protein Negative (Negative) Urine Glucose (UA) 4+ H (Negative) Urine Ketones 1+ H (Negative) Urine Blood Trace H (Negative) Urine Nitrite Negative (Negative) Urine Bilirubin Negative (Negative) Urine Urobilinogen <2.0 (<2.0) mg/dL Ur Leukocyte Esterase Negative (Negative) Urine RBC 3 (0-5) /hpf Urine WBC 4 (0-5) /hpf Urine Bacteria Occasional H (None) /hpf Urine Mucus Rare H (None) /hpf Influenza Type A (PCR) (Not Detectd) Influenza Type B (PCR) (Not Detectd) RSV (PCR) (Not Detectd) SARS-CoV-2 (PCR) (Not Detectd) 05/31/24 Range/Units 16:28 WBC (3.8-10.6) k/uL RBC (3.80-5.40) m/uL Hgb (11.4-16.0) gm/dL Hct (34.0-46.0) % MCV (80.0-100.0) fL MCH (25.0-35.0) pg MCHC (31.0-37.0) g/dL RDW (11.5-15.5) % Plt Count (150-450) k/uL MPV Neutrophils % % Lymphocytes % % Monocytes % % Eosinophils % % Basophils % % Neutrophils # (1.3-7.7) k/uL Lymphocytes # (1.0-4.8) k/uL Monocytes # (0-1.0) k/uL Eosinophils # (0-0.7) k/uL Basophils # (0-0.2) k/uL Hypochromasia Sodium (137-145) mmol/L Potassium (3.5-5.1) mmol/L Chloride (98-107) mmol/L Carbon Dioxide (22-30) mmol/L Anion Gap mmol/L BUN (7-17) mg/dL Creatinine (0.52-1.04) mg/dL Est GFR (CKD-EPI)AfAm (>60 ml/min/1.73 sqM) Est GFR (CKD-EPI)NonAf (>60 ml/min/1.73 sqM) Glucose (74-99) mg/dL Calcium (8.4-10.2) mg/dL Magnesium (1.6-2.3) mg/dL Total Bilirubin (0.2-1.3) mg/dL AST (14-36) U/L ALT (4-34) U/L Alkaline Phosphatase (38-126) U/L Total Protein (6.3-8.2) g/dL Albumin (3.5-5.0) g/dL Urine Color Urine Appearance (Clear) Urine pH (5.0-8.0) Ur Specific [place] (1.001-1.035) Urine Protein (Negative) Urine Glucose (UA) (Negative) Urine Ketones (Negative) Urine Blood (Negative) Urine Nitrite (Negative) Urine Bilirubin (Negative) Urine Urobilinogen (<2.0) mg/dL Ur Leukocyte Esterase (Negative) Urine RBC (0-5) /hpf Urine WBC (0-5) /hpf Urine Bacteria (None) /hpf Urine Mucus (None) /hpf Influenza Type A (PCR) Not Detected (Not Detectd) Influenza Type B (PCR) Not Detected (Not Detectd) RSV (PCR) Not Detected (Not Detectd) SARS-CoV-2 (PCR) Not Detected (Not Detectd) - EKG Data -: EKG Interpreted by Me EKG Comments: 12-lead Electrocardiogram Interpretation Note EKG was reviewed and interpreted by myself. 12-lead ECG performed at 1548 is interpreted by me as revealing atrial fibrillation at a rate of 88 beats per minute. [place] is rightward deviated. QRS duration is 120 ms, QTc is 431 ms.. There were no ST or T wave abnormalities to suggest myocardial ischemia or injury. R wave progression across the precordium was satisfactory. By my interpretation this EKG is non-diagnostic for acute ischemia. Disposition Clinical Impression: Weakness, Debility Disposition: ADMITTED IP TO THIS HOSP Condition: Stable Time of Disposition: 17:37
[2024-05-31 17:02] LABS: ALT 13 U/L (4-34); AST 22 U/L (14-36); African American GFR (CKD) >90 (>60 ml/min/1.73 sqM); Albumin 3.8 g/dL (3.5-5.0); Alkaline Phosphatase 105 U/L (38-126); Anion Gap 9 mmol/L; Blood Urea Nitrogen 18 mg/dL (7-17); Calcium 9.7 mg/dL (8.4-10.2); Carbon Dioxide 26 mmol/L (22-30); Chloride 102 mmol/L (98-107); Glucose 141 mg/dL (74-99); Magnesium 1.9 mg/dL (1.6-2.3); Non-African American GFR(CKD) 85 (>60 ml/min/1.73 sqM); Potassium 4.6 mmol/L (3.5-5.1); Sodium 137 mmol/L (137-145); Total Bilirubin 0.9 mg/dL (0.2-1.3); Total Protein 7.2 g/dL (6.3-8.2)
[2024-05-31 17:09] LABS: Influenza A Not Detected (Not Detectd); Influenza B Not Detected (Not Detectd); RSV Not Detected (Not Detectd)
[2024-05-31] MEDS ORDERED: NALOXONE 0.4 MG/ML 1 ML VIAL IV PRN (17:28)
[2024-05-31] MEDS ORDERED: ACETAMINOPHEN TAB 325 MG TAB PO PRN (17:28)
[2024-05-31] MEDS ORDERED: ONDANSETRON 4 MG/2 ML VIAL IVP PRN (17:28)
[2024-05-31] MEDS ORDERED: DOCUSATE 100 MG CAP PO PRN (17:33)
[2024-05-31] MEDS ORDERED: MAGNESIUM HYDROXIDE 2,400 MG/30 ML CUP PO PRN (17:33)
[2024-05-31] MEDS ORDERED: ALBUTEROL NEBULIZED 2.5 MG/3 ML INHALATION PRN (17:33)
[2024-05-31] MEDS: LEVOFLOXACIN 750MG-D5W PMX 750 MG in DEXTROSE/WATER 1 150ML.BAG IVPB SCH (17:41)
[2024-05-31] MEDS: metFORMIN 500 MG TAB PO SCH (20:27)
[2024-05-31] MEDS: oxyCODONE-APAP 10-325MG 1 EACH TAB PO SCH (20:27)
[2024-05-31] MEDS: ACETAMINOPHEN TAB 500 MG TAB PO SCH (20:27)
[2024-05-31] MEDS: POTASSIUM CHLORIDE ER 20 MEQ TAB.ER PO SCH (20:28)
[2024-05-31] MEDS: GABAPENTIN 300 MG CAP PO SCH (20:28)
[2024-05-31] MEDS: APIXABAN 5 MG TAB PO SCH (20:28)
[2024-05-31] MEDS: traZODone HCL 50 MG TAB PO SCH (21:15)
[2024-05-31] MEDS: LATANOPROST 0.005% OPHTH DROPS 2.5 ML BTL BOTH EYES SCH (21:17)
--- NOTE | 2024-05-31 22:19 | HP ---
HISTORY AND PHYSICAL CHIEF COMPLAINT: Weakness. HISTORY OF PRESENT ILLNESS: This is an 83-year-old woman with a past medical history of multiple medical problems including CHF and bilateral leg cellulitis, who was recently admitted with weakness and the patient was COVID positive. The patient was sent to rehab. Apparently, she was discharged and AMA from the rehab, and currently, the patient is unable to take care of herself. The patient is complaining of extreme tiredness with inability to walk and nutrition also appears to be poor and the patient was admitted for further evaluation and treatment. There is no history of any fever, rigors, or chills. PAST MEDICAL HISTORY: History of recent COVID, history of CHF. Rest of the history and rest of the chart is also reviewed. HOME MEDICATIONS: Reviewed and include Desyrel. Dose and rest of medications reviewed, not confirmed yet. ALLERGIES: Includes adhesive. Rest of the allergies noted. FAMILY HISTORY: History of in the family. SOCIAL HISTORY: Previous smoker. REVIEW OF SYSTEMS: Fourteen-point review of systems negative except as mentioned earlier. PHYSICAL EXAMINATION: VITAL SIGNS: Pulse is 62, blood pressure 142/80, respirations 18. HEENT: Conjunctivae normal. NECK: No JVD. CARDIOVASCULAR: S1, S2. RESPIRATIONS: Breath sounds diminished at the bases. Few scattered rhonchi. ABDOMEN: Soft. NERVOUS SYSTEM: Nonfocal. LABORATORY DATA: Reviewed. ASSESSMENT: 1. Generalized weakness and dehydration. 2. Possible acute bilateral cellulitis. 3. Gait dysfunction. 4. History of recent COVID. 5. History of congestive heart failure. 6. History of coronary artery disease. 7. Atrial fibrillation. 8. Diabetes mellitus type 2. 9. Hypertension. 10.Hyperlipidemia. 11.History of rheumatoid arthritis. 12.Multiple complex medical issues. 13.History of Sjogren syndrome and interstitial lung disease. RECOMMENDATIONS AND DISCUSSION: This is an 83-year-old woman, who presented with multiple complex medical issues. We will monitor the patient closely. I would recommend basic labs and COVID testing. IV fluids. Monitor renal function closely. Chest x-ray. The patient just arrived to the ER. I would recommend to follow up closely; PT/OT evaluation. We might even consider ECF rehab. I would also recommend a course of antibiotics for possible cellulitis. See orders for details. MMODL / IJN: [id number] / MTDD
[2024-06-01] MEDS: LEVOTHYROXINE 100 MCG TAB PO SCH (06:46)
[2024-06-01] MEDS: BUMETANIDE 1 MG TAB PO SCH (08:46)
[2024-06-01] MEDS: LORATADINE 10 MG TAB PO SCH (08:46)
[2024-06-01] MEDS: OXYBUTYNIN 10 MG TAB.ER.24 PO SCH (08:46)
[2024-06-01] MEDS: DIGOXIN 125 MCG TAB PO SCH (08:47)
[2024-06-01] MEDS: DAPAGLIFLOZIN PROPANEDIOL 5 MG TABLET PO SCH (08:47)
[2024-06-01] MEDS: MAGNESIUM OXIDE 400 MG TAB PO SCH (08:47)
[2024-06-01 09:43] LABS: Basophils # (A) 0.04 X 10*3/uL (0.00-0.10); Basophils % (A) 0.7 %; Eosinophils # (A) 0.21 X 10*3/uL (0.04-0.35); Eosinophils % (A) 3.8 %; HCT 39.1 % (37.2-46.3); HGB 12.2 g/dL (12.0-15.0); Lymphocytes # (A) 1.89 X 10*3/uL (0.90-5.00); Lymphocytes % (A) 33.9 %; MCH 29.4 pg (27.0-32.0); MCHC 31.2 g/dL (32.0-37.0); MCV 94.2 FL (80.0-97.0); Monocytes # (A) 0.51 X 10*3/uL (0.20-1.00); Monocytes % (A) 9.2 %; NRBC Per 100 WBC 0 X 10*3/uL (0.00-0.01); Platelet Count 185 X 10*3/uL (140-440); RBC 4.15 X 10*6/uL (4.10-5.20); RDW 14.8 % (11.5-14.5); WBC 5.57 X 10*3/uL (4.50-10.00)
[2024-06-01 09:47] LABS: BUN/Creat Ratio 20.57 Ratio (12.00-20.00); Blood Urea Nitrogen 14.4 mg/dL (9.0-27.0); Chloride 104 mmol/L (96-109); Glucose 165 mg/dL (70-110); Potassium 4.5 mmol/L (3.5-5.5); Sodium 139 mmol/L (135-145)
[2024-06-01 09:48] LABS: ALT 10 U/L (8-44); AST 20 U/L (13-35); Albumin 3.4 g/dL (3.8-4.9); Albumin/Globulin Ratio 1.06 Ratio (1.60-3.17); Alkaline Phosphatase 96 U/L (41-126); Calcium 9.1 mg/dL (8.7-10.3); Carbon Dioxide 25.2 mmol/L (21.6-31.8); Globulin 3.2 g/dL (1.6-3.3); Total Bilirubin 0.3 mg/dL (0.3-1.2); Total Protein 6.6 g/dL (6.2-8.2)
[2024-06-01 15:09] LABS: Glucose,Whole Blood 189 mg/dL (70-110)
--- NOTE | 2024-06-02 02:04 | PN ---
PROGRESS NOTE DATE OF SERVICE: 06/01/2024 SUBJECTIVE: This 83-year-old woman who was recently at [facility], came home and apparently the patient was extremely weak and tired and the room was very cold, and the patient was unable to ambulate, and the patient was taken to [facility] and admitted for further evaluation and treatment. No chest pain, no palpitation. EXAM: VITAL SIGNS: Pulse is 62, blood pressure 142/80, respirations 16. CHEST: Few scattered rhonchi and crackles. ABDOMEN: Soft. NERVOUS SYSTEM: Nonfocal. LABORATORY DATA: Reviewed: COVID-19 is negative. ASSESSMENT: 1. Generalized weakness and dehydration, present on admission. 2. Possible acute bilateral leg cellulitis. 3. Gait dysfunction. 4. History of recent COVID-19. 5. History of congestive heart failure. 6. History of coronary artery disease. 7. History of atrial fibrillation. 8. Multiple complex medical issues. RECOMMENDATIONS AND DISCUSSION: I recommend to continue current management, continue with symptomatic treatment. Otherwise, diuretics are on hold at this time. I recommend to continue the current medications. Continue with monitoring. I would recommend a chest x-ray, PT/OT evaluation, and Dr. Hart will evaluate on Monday morning. MMODL / IJN: [id number] /
[2024-06-02 08:43] LABS: Glucose,Whole Blood 154 mg/dL (70-110)
[2024-06-02 11:11] LABS: BUN/Creat Ratio 20.57 Ratio (12.00-20.00); Blood Urea Nitrogen 14.4 mg/dL (9.0-27.0); Calcium 8.9 mg/dL (8.7-10.3); Carbon Dioxide 24.5 mmol/L (21.6-31.8); Chloride 106 mmol/L (96-109); Glucose 178 mg/dL (70-110); Potassium 4.8 mmol/L (3.5-5.5); Sodium 142 mmol/L (135-145)
[2024-06-02 11:14] LABS: Basophils # (A) 0.05 X 10*3/uL (0.00-0.10); Basophils % (A) 0.8 %; Eosinophils # (A) 0.22 X 10*3/uL (0.04-0.35); Eosinophils % (A) 3.5 %; HCT 39.2 % (37.2-46.3); HGB 12.2 g/dL (12.0-15.0); Lymphocytes # (A) 1.94 X 10*3/uL (0.90-5.00); Lymphocytes % (A) 30.6 %; MCH 29.5 pg (27.0-32.0); MCHC 31.1 g/dL (32.0-37.0); MCV 94.7 FL (80.0-97.0); Mean Platelet Volume 10.8 FL (9.5-12.2); Monocytes # (A) 0.57 X 10*3/uL (0.20-1.00); NRBC Per 100 WBC 0 X 10*3/uL (0.00-0.01); Neutrophils # (A) 3.55 X 10*3/uL (1.80-7.70); Neutrophils % (A) 55.8 %; Platelet Count 188 X 10*3/uL (140-440); RBC 4.14 X 10*6/uL (4.10-5.20); RDW 14.9 % (11.5-14.5); WBC 6.35 X 10*3/uL (4.50-10.00)
--- NOTE | 2024-06-02 23:42 | PN ---
PROGRESS NOTE DATE OF SERVICE: 06/02/2024 SUBJECTIVE: This is an 83-year-old woman, who was admitted with generalized weakness and was recently in an AFC home. Basic labs have been satisfactory. Viral panel negative. Cultures also negative. OBJECTIVE: VITAL SIGNS: Pulse 63, blood pressure 130/60, respirations 18. CHEST: A few scattered rhonchi and crackles. ABDOMEN: Soft, obese. LEGS: No edema. NERVOUS SYSTEM: Diffusely weak. LABORATORY DATA: Reviewed. ASSESSMENT: 1. Generalized weakness and dehydration, present on admission. 2. Possible acute bilateral leg cellulitis. 3. Gait dysfunction. 4. History of recent COVID-19. 5. History of congestive heart failure. 6. Coronary artery disease. 7. Multiple complex medical issues. RECOMMENDATIONS AND DISCUSSION: I recommend to continue current management and continue symptomatic treatment. Otherwise, PT, OT evaluation, possible ECF rehab. Labs are reviewed. Dr. Hart will follow tomorrow. MMSHERIF / MANNN: [id number] /
--- NOTE | 2024-06-03 08:59 | P.PN ---
Subjective Progress Note Date: 06/03/24 This is an 83-year-old female who reportedly presented to the emergency department for placement. Reportedly patient left voluntarily from the nursing facility she was at and wanted to go home because she thought she could take care of herself. Patient presented to the emergency department stating she co uld no longer care for herself at home. Patient lost her in November of last year, and he was her primary caregiver. This morning patient tells us she was unable to stay at home because her heat was reportedly not working. Patient does have a public guardian. Physical therapy and Occupational Therapy are on consult to evaluate patient's gait and safety at home. Objective - Vital Signs Vital signs: Vital Signs Temp 97.8 F 06/03/24 08:00 Pulse 72 06/03/24 08:00 Resp 17 06/03/24 08:00 BP 147/56 06/03/24 08:00 Pulse Ox 96 06/03/24 08:00 FiO2 Intake & Output 06/02/24 06/03/24 06/03/24 18:59 06:59 18:59 Intake Total 200 240 Output Total 200 Balance 200 40 Intake: Oral 200 240 Output: Urine 200 Other: Voiding Method Bedside Commode # Voids 13 1 - Constitutional General appearance: Present: cooperative, no acute distress - EENT Eyes: Present: PERRLA - Neck Neck: Present: normal ROM. Absent: lymphadenopathy, rigidity - Respiratory Respiratory: bilateral: diminished - Cardiovascular Heart sounds: normal: S1, S2 - Gastrointestinal General gastrointestinal: Present: soft. Absent: tenderness - Integumentary Integumentary: Present: normal, normal turgor - Musculoskeletal Musculoskeletal: Present: generalized weakness - Psychiatric Psychiatric: Present: A&O x's 3 - Labs CBC & Chem 7: 06/02/24 02:56 06/02/24 02:56 Labs: Abnormal Lab Results - Last 24 Hours (Table) 06/02/24 06/02/24 Range/Units 02:56 02:56 MCHC 31.1 L (32.0-37.0) g/dL RDW 14.9 H (11.5-14.5) % BUN/Creatinine Ratio 20.57 H (12.00-20.00) Ratio Glucose 178 H (70-110) mg/dL Assessment and Plan (1) Debility Current Visit: Yes Status: Acute Code(s): R53.81 - OTHER [place] SNOMED Code(s): 18002581 (2) Generalized weakness Current Visit: Yes Status: Acute Code(s): R53.1 - WEAKNESS SNOMED Code(s): 52850260 (3) Atrial fibrillation Current Visit: No Status: Acute Code(s): I48.91 - UNSPECIFIED ATRIAL FIBRILLATION SNOMED Code(s): 31395385 (4) CAD (coronary artery disease) Current Visit: No Status: Acute Code(s): I25.10 - ATHSCL HEART DISEASE OF [place] CORONARY ARTERY W/O ANG PCTRS SNOMED Code(s): 02980537 (5) CHF (congestive heart failure) Current Visit: No Status: Acute Code(s): I50.9 - HEART FAILURE, UNSPECIFIED SNOMED Code(s): 96755734 (6) Diabetes Current Visit: No Status: Acute Code(s): E11.9 - TYPE 2 DIABETES MELLITUS WITHOUT COMPLICATIONS SNOMED Code(s): 78202708 (7) Hyperlipidemia Current Visit: No Status: Acute Code(s): E78.5 - HYPERLIPIDEMIA, UNSPECIFIED SNOMED Code(s): 34822918 (8) Hypertension Current Visit: No Status: Acute Code(s): I10 - ESSENTIAL (PRIMARY) HYPERTENSION SNOMED Code(s): 50375167 Plan: Await recommendations from physical therapy and Occupational Therapy. Work with care management for discharge planning. Patient seen and evaluated by nurse practitioner, physician in agreement with plan.
[2024-06-03] MEDS: NON FORMULARY DRUG (Adalimumab [Humira(Cf) Pen] 40 MG/0.4 ML Pen.Ij.Kit) SQ SCH (09:23)
[2024-06-03] MEDS: INSULIN LISPRO (HumaLOG) 100 UNIT/ML 10 mL VL SQ SCH (13:15)
--- NOTE | 2024-06-03 15:25 | CDI ---
Documentation Clarification Form Date: 06/03/2024 03:03:08 PM From: Anita Douglas RN, CCDS Phone: [phone] Admit Date: 05/31/2024 05:28:00 PM Patient Name: Rosalva Lr Visit Number: [id number] Discharge Date: ATTENTION: The Clinical Documentation Specialists (CDI) and [facility] Coding Staff appreciate your assistance in clarifying documentation. Please respond to the clarification below the line at the bottom and electronically sign. The CDI & [facility] Coding staff will review the response and follow-up if needed. Please note: Queries are made part of the Legal Health Record. If you have any questions, please contact the author of this message via ITS. Doctor. Nicholas Hart Your patient has the documented symptom of generalized weakness and debility in the H/P and subsequent progress notes. Additional clarification regarding the etiology/cause of this symptom is requested. History/Risk Factors: Atrial Fibrillation, Coronary Artery Disease (CAD), Diabetes Mellitus, Hyperlipidemia, Hypertension, Spinal stenosis, osteoarthritis Rheumatoid arthritis, CHF Clinical Indicators 83-year-old female present to ED reporting extreme tiredness with inability to walk and nutrition also appears to be poor and was admitted for further evaluation and treatment per H/P. Treatment: PT/OT Evaluation Consult to Clinical social work Is there a corresponding diagnosis/etiology for this symptom of weakness and debility? [ x ] Age related physical debility [ ] Unable to determine [ ] Other, please specify (Template Last Reviewed: March 2020) MTDD
--- NOTE | 2024-06-03 15:43 | CDI ---
Documentation Clarification Form Date: 06/03/2024 03:31:02 PM From: Anita Douglas RN, CCDS Phone: [phone] Admit Date: 05/31/2024 05:28:00 PM Patient Name: Rosalva Lr Visit Number: [id number] Discharge Date: ATTENTION: The Clinical Documentation Specialists (CDI) and [facility] Coding Staff appreciate your assistance in clarifying documentation. Please respond to the clarification below the line at the bottom and electronically sign. The CDI & [facility] Coding staff will review the response and follow-up if needed. Please note: Queries are made part of the Legal Health Record. If you have any questions, please contact the author of this message via ITS. Doctor.Jun Hart Atrial Fibrillation is documented in the H/P and subsequent progress notes. Additional clarification regarding the type of atrial fibrillation is requested. History/Risk Factors: Atrial Fibrillation, Coronary Artery Disease (CAD), Diabetes Mellitus, Hyperlipidemia, Hypertension, Spinal stenosis, osteoarthritis Rheumatoid arthritis, CHF Clinical Indicators: 83-year-old female present to ED reporting extreme tiredness with inability to walk. She has history of atrial fibrillation. 05/31 EKG: (ED) revealing atrial fibrillation at a rate of 88 beats per minute. There were no ST or T wave abnormalities to suggest myocardial ischemia or injury. Treatment: Eliquis 5 MG PO BID Please clarify the type of atrial fibrillation, if known: [ ] Chronic [ x] Permanent [ ] Paroxysmal [ ] Persistent [ ] Other, please specify [ ] Unable to determine (Template Last Revised: June 2020) MTDD
[2024-06-03 16:55] LABS: Glucose,Whole Blood 192 mg/dL (70-110)
[2024-06-03 20:06] LABS: Glucose,Whole Blood 184 mg/dL (70-110)
[2024-06-03] MEDS: SENNOSIDES 8.6 MG TAB PO PRN (20:16)
[2024-06-04 06:22] LABS: Glucose,Whole Blood 185 mg/dL (70-110)
[2024-06-04 07:25] VITALS: BP 171/68; PULSE 60; RESP 18; TEMP 98
--- NOTE | 2024-06-04 08:19 | P.PN ---
Subjective Progress Note Date: 06/04/24 This is an 83-year-old female who reportedly presented to the emergency department for placement. Reportedly patient left voluntarily from the nursing facility she was at and wanted to go home because she thought she could take care of herself. Patient presented to the emergency department stating she co uld no longer care for herself at home. Patient lost her in November of last year, and he was her primary caregiver. This morning patient tells us she was unable to stay at home because her heat was reportedly not working. Patient does have a public guardian. Physical therapy and Occupational Therapy are on consult to evaluate patient's gait and safety at home. 06/04/2024 Patient seen this morning lying in bed comfortably. She refused to work with physical therapy yesterday. She did work with occupational therapy however. Care management has working on placement for patient. Per legal guardian patient was at home for less than 24 hours before being readmitted. Prior she had been at [facility], who will not take patient back. Objective - Vital Signs Vital signs: Vital Signs Temp 98 F 06/04/24 07:19 Pulse 60 06/04/24 07:19 Resp 18 06/04/24 07:19 BP 171/68 06/04/24 07:19 Pulse Ox 95 06/04/24 07:19 FiO2 Intake & Output 06/03/24 06/04/24 06/04/24 18:59 06:59 18:59 Other: Voiding Method Bedside Commode # Voids 3 3 # Bowel Movements 2 - Constitutional General appearance: Present: cooperative, no acute distress - EENT Eyes: Present: PERRLA - Neck Neck: Present: normal ROM. Absent: lymphadenopathy, rigidity - Respiratory Respiratory: bilateral: diminished - Cardiovascular Heart sounds: normal: S1, S2 - Gastrointestinal General gastrointestinal: Present: soft. Absent: tenderness - Integumentary Integumentary: Present: normal, normal turgor - Musculoskeletal Musculoskeletal: Present: generalized weakness - Psychiatric Psychiatric: Present: A&O x's 3 - Labs CBC & Chem 7: 06/02/24 02:56 06/02/24 02:56 Labs: Abnormal Lab Results - Last 24 Hours (Table) 06/03/24 06/03/24 06/04/24 Range/Units 16:54 20:05 06:13 POC Glucose (mg/dL) 192 H 184 H 185 H (70-110) mg/dL Assessment and Plan (1) Debility Current Visit: Yes Status: Acute Code(s): R53.81 - OTHER [place] SNOMED Code(s): 02000071 (2) Generalized weakness Current Visit: Yes Status: Acute Code(s): R53.1 - WEAKNESS SNOMED Code(s): 80789322 (3) Atrial fibrillation Current Visit: No Status: Acute Code(s): I48.91 - UNSPECIFIED ATRIAL FIBRILLATION SNOMED Code(s): 14904868 (4) CAD (coronary artery disease) Current Visit: No Status: Acute Code(s): I25.10 - ATHSCL HEART DISEASE OF [place] CORONARY ARTERY W/O ANG PCTRS SNOMED Code(s): 99521687 (5) CHF (congestive heart failure) Current Visit: No Status: Acute Code(s): I50.9 - HEART FAILURE, UNSPECIFIED SNOMED Code(s): 33141458 (6) Diabetes Current Visit: No Status: Acute Code(s): E11.9 - TYPE 2 DIABETES MELLITUS WITHOUT COMPLICATIONS SNOMED Code(s): 41454780 (7) Hyperlipidemia Current Visit: No Status: Acute Code(s): E78.5 - HYPERLIPIDEMIA, UNSPECIFIED SNOMED Code(s): 55149262 (8) Hypertension Current Visit: No Status: Acute Code(s): I10 - ESSENTIAL (PRIMARY) HYPERTENSION SNOMED Code(s): 16699478 Plan: Our recommendation is for placement at discharge for patient. Continue working with care management and legal guardian to find placement for patient. Patient seen and evaluated by nurse practitioner, physician in agreement with plan.
[2024-06-04 11:39] LABS: Glucose,Whole Blood 189 mg/dL (70-110)
--- NOTE | 2024-06-04 12:41 | P.DS ---
Providers Date of admission: 05/31/24 17:28 Attending physician: Nicholas Hart Primary care physician: Nicholas Hart Hospital Course: Chief complaint Worsening debility and inability to care for herself independently. History of present illness Rosalva Lr, an 83-year-old female, was admitted due to worsening debility. She has been residing in an extended care facility for several months and attempted to return home. However, she faced issues with her furnace, which was accidentally shut off and could not be restarted. She is under guardianship and receives assistance from caregivers for 8 hours daily to help maintain some independence. Therapy has been initiated, but there is no local facility available for continuous care. She previously stayed at [facility] and experienced difficulties. Currently, she is under the care of visiting physicians outside the office, with [facility] managing her care. ROS is normal. Past medical history Worsening debility. Social history - Resides in an extended care facility. - Has guardianship. - Receives caregiver assistance 8 hours daily. Assessment - Worsening debility requiring extended care and assistance with daily activities. - Concerns about the ability to maintain independence due to general debility. Patient Condition at Discharge: Stable Plan - Discharge Summary Discharge Rx Participant: No New Discharge Prescriptions: Continue Latanoprost [Xalatan 0.005%] 1 drop BOTH EYES HS@2000 Calcium Citrate/Vitamin D3 [Citracal + D Maximum Caplet] 1 tab PO DAILY@0800 Adalimumab [Humira(Cf) Pen] 40 mg SQ Q14D INSULIN LISPRO (HumaLOG) [humaLOG] 5 units SQ TID-W/MEALS@08,,17 traZODone HCL [Desyrel] 50 mg PO HS@2000 metFORMIN HCL [Glucophage] 1,000 mg PO BID@0800,1999 Acetaminophen Tab [Tylenol] 500 mg PO QID@,08,14,20 methocarbamoL [Robaxin-750] 750 mg PO QID@,,14,20 SILVER sulfADIAZINE Cream [Silvadene 1% Cream] 1 applic TOPICAL DAILY@0800 Magnesium Hydroxide [Milk of Magnesia] 2,400 mg PO DAILY PRN ml PRN Reason: Constipation Docusate [Colace] 100 mg PO BID PRN PRN Reason: Constipation Multivitamins, Thera [Multivitamin (formulary)] 1 tab PO DAILY@0800 Empagliflozin [Jardiance] 10 mg PO DAILY@0800 Gabapentin 600 mg PO TID@08,14, Nitroglycerin Sl Tabs [Nitrostat] 0.4 mg SL Q5M PRN PRN Reason: Chest Pain Digoxin [Lanoxin] 125 mcg PO Q48H INSULIN LISPRO (HumaLOG) [humaLOG] See Protocol SQ TID-W/MEALS@08,, Apixaban [Eliquis] 5 mg PO BID@08,1999 Tolterodine ER [Detrol LA] 4 mg PO DAILY@0800 Potassium Chloride ER [K-Dur 20] 20 meq PO BID@0800,1999 Magnesium Oxide [Mag-Ox] 250 mg PO DAILY@0800 Loratadine [Claritin] 10 mg PO DAILY@0800 Albuterol Nebulized [Ventolin Nebulized] 2.5 mg INHALATION RT-Q6H PRN PRN Reason: Shortness Of Breath Lidocaine 4% Patch 1 patch TOPICAL HS@1999 Insulin Glargine,Hum.rec.anlog [Lantus Solostar Pen] 20 units SQ BID@799,1999 Bumetanide [BUMEX] 1 mg PO DAILY@08 Sennosides [Senokot] 17.2 mg PO HS PRN PRN Reason: Constipation Gentamicin 0.1% Cream 1 applic TOPICAL DAILY Levothyroxine Sodium [Synthroid] 200 mcg PO DAILY@0800 Changed oxyCODONE-APAP 10-325MG [Percocet 10-325 mg] 1 tab PO Q6H PRN 30 Days #120 tab PRN Reason: Pain Discharge Medication List Latanoprost [Xalatan 0.005%] 1 drop BOTH EYES HS@199908/11/17 [History] Calcium Citrate/Vitamin D3 [Citracal + D Maximum Caplet] 1 tab PO DAILY@0800 11/16/21 [History] Digoxin [Lanoxin] 125 mcg PO Q48H 11/16/21 [History] Nitroglycerin Sl Tabs [Nitrostat] 0.4 mg SL Q5M PRN 11/16/21 [History] Adalimumab [Humira(Cf) Pen] 40 mg SQ Q14D 01/09/22 [History] Apixaban [Eliquis] 5 mg PO BID@0800,199905/02/22 [History] INSULIN LISPRO (HumaLOG) [humaLOG] 5 units SQ TID-W/MEALS@,,05/02/22 [History] INSULIN LISPRO (HumaLOG) [humaLOG] See Protocol SQ TID-W/MEALS@,,05/02/22 [History] traZODone HCL [Desyrel] 50 mg PO HS@199912/15/22 [History] Tolterodine ER [Detrol LA] 4 mg PO DAILY@79905/15/23 [History] metFORMIN HCL [Glucophage] 1,000 mg PO BID@799,199905/25/23 [History] Acetaminophen Tab [Tylenol] 500 mg PO QID@,,,11/23/23 [History] Loratadine [Claritin] 10 mg PO DAILY@79911/23/23 [History] Magnesium Oxide [Mag-Ox] 250 mg PO DAILY@79911/23/23 [History] Potassium Chloride ER [K-Dur 20] 20 meq PO BID@799,199911/23/23 [History] SILVER sulfADIAZINE Cream [Silvadene 1% Cream] 1 applic TOPICAL DAILY@79901/05/24 [History] methocarbamoL [Robaxin-750] 750 mg PO QID@,,,01/05/24 [History] Magnesium Hydroxide [Milk of Magnesia] 2,400 mg PO DAILY PRN ml 01/10/24 [Rx] Albuterol Nebulized [Ventolin Nebulized] 2.5 mg INHALATION RT-Q6H PRN 02/14/24 [History] Bumetanide [BUMEX] 1 mg PO DAILY@79902/14/24 [History] Docusate [Colace] 100 mg PO BID PRN 02/14/24 [History] Empagliflozin [Jardiance] 10 mg PO DAILY@79902/14/24 [History] Insulin Glargine,Hum.rec.anlog [Lantus Solostar Pen] 20 units SQ BID@799,199902/14/24 [History] Lidocaine 4% Patch 1 patch TOPICAL HS@199902/14/24 [History] Multivitamins, Thera [Multivitamin (formulary)] 1 tab PO DAILY@79902/14/24 [History] Sennosides [Senokot] 17.2 mg PO HS PRN 02/14/24 [History] Gabapentin 600 mg PO TID@08,14,20 05/31/24 [History] Gentamicin 0.1% Cream 1 applic TOPICAL DAILY 05/31/24 [History] Levothyroxine Sodium [Synthroid] 200 mcg PO DAILY@0800 05/31/24 [History] oxyCODONE-APAP 10-325MG [Percocet 10-325 mg] 1 tab PO Q6H PRN 30 Days #120 tab 06/04/24 [Rx] Follow up Appointment(s)/Referral(s): Nicholas Hart MD [Primary Care Provider] - 1 Week (The patient will followup with [facility]. I am no longer her physician after this hospitalization) Activity/Diet/Wound Care/Special Instructions: [facility] home care Discharge Disposition: HOME WITH HOME HEALTH SERVICES Plan of Treatment: She will followup with [facility]. I am technically no longer her provider due to her homebound status
== END 2024-06-04 13:55 | disposition home health service (06) ==
LOC: EC 15:10 → INTOOBSV 17:28 → 4SSUR 17:28
PROVIDERS: ADMIT Family Medicine; ATTEND Family Medicine
DX: R54 Age-related physical debility (principal); E86.0 Dehydration; R26.9 Unspecified abnormalities of gait and mobility; I48.21 Permanent atrial fibrillation; I25.10 Atherosclerotic heart disease of native coronary artery without angina pectoris; I11.0 Hypertensive heart disease with heart failure; I50.9 Heart failure, unspecified; E11.9 Type 2 diabetes mellitus without complications; E78.5 Hyperlipidemia, unspecified; M06.9 Rheumatoid arthritis, unspecified; M35.00 Sjogren syndrome, unspecified; E03.9 Hypothyroidism, unspecified; M19.90 Unspecified osteoarthritis, unspecified site; M48.00 Spinal stenosis, site unspecified; J84.9 Interstitial pulmonary disease, unspecified; Z86.16 Personal history of COVID-19; Z87.891 Personal history of nicotine dependence; Z79.01 Long term (current) use of anticoagulants; Z79.4 Long term (current) use of insulin; Z79.84 Long term (current) use of oral hypoglycemic drugs; Z79.890 Hormone replacement therapy; Z85.820 Personal history of malignant melanoma of skin; Z79.899 Other long term (current) drug therapy
CPT/HCPCS: 99285; 36415; 93005; 97165; 80053 ×2; 80048; 83735; 85025 ×3; 81001; 87636; G0378 ×5

== ENCOUNTER 2024-06-07 09:36 | Emergency (ER) | payer MEDICARE ==
--- NOTE | 2024-06-07 11:00 | ED ---
Weakness HPI - General Chief complaint: Weakness Stated complaint: Weakness Time Seen by Provider: 06/07/24 09:43 Source: patient, EMS, RN notes reviewed Mode of arrival: EMS Limitations: no limitations - History of Present Illness Initial comments: This is an 83 year old female who presents to the emergency department for weakness. Patient lives at home but does have caregivers. Caregivers reportedly called EMS due to the patient having increasing weakness. Patient is a poor historian and does not elaborate much. States that her whole body hurts and it has been this way for years. Denies any chest pain or shortness of breath. Per nursing staff, when EMS arrived with the patient she was soaked in her own urine. MD Complaint: generalized weakness - Related Data Home Medications Medication Instructions Recorded Confirmed Latanoprost [Xalatan 0.005%] 1 drop BOTH EYES HS@199908/11/17 06/07/24 Calcium Citrate/Vitamin D3 1 tab PO DAILY@0800 11/16/21 06/07/24 [Citracal + D Maximum Caplet] Digoxin [Lanoxin] 125 mcg PO Q48H 11/16/21 06/07/24 Nitroglycerin Sl Tabs [Nitrostat] 0.4 mg SL Q5M PRN 11/16/21 06/07/24 Adalimumab [Humira(Cf) Pen] 40 mg SQ Q14D 01/09/22 06/07/24 Apixaban [Eliquis] 5 mg PO BID@799,199905/02/22 06/07/24 INSULIN LISPRO (HumaLOG) [humaLOG] 5 units SQ TID-W/MEALS@,05/02/22 06/07/24 INSULIN LISPRO (HumaLOG) [humaLOG] See Protocol SQ 05/02/22 06/07/24 TID-W/MEALS@,, traZODone HCL [Desyrel] 50 mg PO HS@199912/15/22 06/07/24 Tolterodine ER [Detrol LA] 4 mg PO DAILY@0800 05/15/23 06/07/24 metFORMIN HCL [Glucophage] 1,000 mg PO BID@799,199905/25/23 06/07/24 Acetaminophen Tab [Tylenol] 500 mg PO QID@02,08,,11/23/23 06/07/24 Loratadine [Claritin] 10 mg PO DAILY@79911/23/23 06/07/24 Magnesium Oxide [Mag-Ox] 250 mg PO DAILY@79911/23/23 06/07/24 Potassium Chloride ER [K-Dur 20] 20 meq PO BID@799,199911/23/23 06/07/24 SILVER sulfADIAZINE Cream 1 applic TOPICAL DAILY@79901/05/24 06/07/24 [Silvadene 1% Cream] methocarbamoL [Robaxin-750] 750 mg PO QID@,,,01/05/24 06/07/24 Albuterol Nebulized [Ventolin 2.5 mg INHALATION RT-Q6H PRN 02/14/24 06/07/24 Nebulized] Bumetanide [BUMEX] 1 mg PO DAILY@79902/14/24 06/07/24 Docusate [Colace] 100 mg PO BID PRN 02/14/24 06/07/24 Empagliflozin [Jardiance] 10 mg PO DAILY@79902/14/24 06/07/24 Insulin Glargine,Hum.rec.anlog 20 units SQ BID@799,199902/14/24 06/07/24 [Lantus Solostar Pen] Lidocaine 4% Patch 1 patch TOPICAL HS@199902/14/24 06/07/24 Multivitamins, Thera [Multivitamin 1 tab PO DAILY@79902/14/24 06/07/24 (formulary)] Sennosides [Senokot] 17.2 mg PO HS PRN 02/14/24 06/07/24 Gabapentin 600 mg PO TID@,,05/31/24 06/07/24 Gentamicin 0.1% Cream 1 applic TOPICAL DAILY 05/31/24 06/07/24 Levothyroxine Sodium [Synthroid] 200 mcg PO DAILY@79905/31/24 06/07/24 oxyCODONE-APAP 10-325MG [Percocet 1 tab PO QID@,,,06/07/24 06/07/24 10-325 mg] Previous Rx's Medication Instructions Recorded Magnesium Hydroxide [Milk of 2,400 mg PO DAILY PRN ml 01/10/24 Magnesia] Levofloxacin [Levaquin] 750 mg PO DAILY 5 Days #5 tab 06/07/24 Allergies Allergy/AdvReac Type Severity Reaction Status Date / Time adhesive Allergy Rash/Hives Verified 06/07/24 11:00 cephalexin [From Keflex] Allergy Rash/Hives Verified 06/07/24 11:00 grass pollen Allergy Unknown Verified 06/07/24 11:00 mold Allergy Unknown Verified 06/07/24 11:00 newspaper ink Allergy Mild Unknown Uncoded 06/07/24 11:00 Review of Systems ROS Statement: Those systems with pertinent positive or pertinent negative responses have been documented in the HPI. ROS Other: All systems not noted in ROS Statement are negative. Past Medical History Past Medical History: Atrial Fibrillation, Coronary Artery Disease (CAD), Ca ncer, Diabetes Mellitus, Hyperlipidemia, Hypertension, Musculoskeletal Disorder, Neurologic Disorder, Osteoarthritis (OA), Pneumonia, Renal Disease, Rheumatoid Arthritis (RA), Skin Disorder, Thyroid Disorder Additional Past Medical History / Comment(s): Morbid obesity, chronic atrial fibrillation, diabetes mellitus type 2, hypertension, hyperlipidemia, spinal stenosis, osteoarthritis, hypothyroidism, hypertension, history of skin melanoma, history of bursitis with MRSA post I&D, rheumatoid arthritis, Sjogren's disease, 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 without any indication of ILD related to RA, Fall on July 22 transfer to [facility] for MRI, then Fall on 11/16/21 History of Any Multi-Drug Resistant Organisms: MRSA Date of last positivie culture/infection: 09/02/22 MDRO Source:: Right Leg Past Surgical History: Back Surgery, Breast Surgery, Cholecystectomy, Heart Catheterization, Joint Replacement, Orthopedic Surgery Additional Past Surgical History / Comment(s): Bilateral cataracts with lens implants, arthroscopies to lt wrist, gualberto knees, gualberto ankles, gualberto hips, lt hip replacment and redone, L/R shoulder sxs, rt breast bx-benign, egd/colonoscopy, skin cancer removal L arm, Lumbar fixnation possible broken Past Anesthesia/Blood Transfusion Reactions: No Reported Reaction Additional Past Anesthesia/Blood Transfusion Reaction / Comment(s): Pt has been told not to have anesthesia metabolized by the kidneys and has neurologic Sjogren's with post anesthesia paralysis. Past Psychological History: No Psychological Hx Reported Smoking Status: Former smoker Past Alcohol Use History: None Reported Past Drug Use History: None Reported - Past Family History Mother Family Medical History: CVA/TIA Additional Family Medical History / Comment(s): RUPTURED BOWEL Father Family Medical History: Cancer, Pneumonia Additional Family Medical History / Comment(s): ASPIRATIVE PNA Sister(s) Additional Family Medical History / Comment(s): at age 34 with lupus General Exam Limitations: no limitations General appearance: alert, in no apparent distress Head exam: Present: atraumatic, normocephalic, normal inspection Respiratory exam: Present: normal lung sounds bilaterally. Absent: respiratory distress, wheezes, rales, rhonchi, stridor Cardiovascular Exam: Present: regular rate, normal rhythm Neurological exam: Present: alert, oriented X3, CN II-XII intact Psychiatric exam: Present: normal affect, normal mood Skin exam: Present: warm, dry, intact, normal color. Absent: rash Course Vital Signs 06/07/24 06/07/24 10:05 14:16 Temperature 97.7 F 98.4 F Pulse Rate 78 98 Respiratory 16 18 Rate Blood Pressure 127/75 106/70 O2 Sat by Pulse 99 98 Oximetry Medical Decision Making - Medical Decision Making This is an 83-year-old female who presents to the emergency department for weakness. Was pt. sent in by a medical professional or institution? @ -No Did you speak to anyone other than the patient for history? @ -EMS and caregiver provided the majority of the history. Did you review nursing and triage notes? @ -Yes, and I agree, it is accurate with regards to the patient's symptoms. Were old charts reviewed? @ -No Differential Diagnosis? @ -Differential Weakness: Hypoglycemia, shock, sepsis, hyponatremia, anemia, infection, WA, ETOH, adverse medicine reaction, overdose, stroke, this is not meant to be an all-inclusive list. EKG interpreted by me (3pts min.)? @ -EKG interpreted by me demonstrating the following: Atrial fibrillation. Ventricular rate 83 bpm, QRS duration 116 ms, QTc 435 ms. X-rays interpreted by me (1pt min.)? @ -Chest x-ray obtained. My interpretation identifies infrahilar opacities. CT interpreted by me (1pt min.)? @ -Not obtained U/S interpreted by me (1pt. min.)? @ -Not obtained What testing was considered but not performed? (CT, X-rays, U/S, labs)? Why? @ -None What meds were considered but not given? Why? @ -None Did you discuss the management of the patient with other professionals? @ -No Did you reconcile home meds? @ -No Was smoking cessation discussed for >3mins.? @ -No Was critical care preformed (if so, how long)? @ -No Were there social determinants of health that impacted care today? How? (Homelessness, low income, unemployed, alcoholism, drug addiction, transportation, low edu. Level, literacy, decrease access to med. care, fpc, rehab)? @ -No Was there de-escalation of care discussed even if they declined? (Discuss DNR or withdrawal of care, Hospice)? @ -No What co-morbidities impacted this encounter? (DM, HTN, Smoking, COPD, CAD, Cancer, CVA, Hep., AIDS, mental health diagnosis, sleep apnea, morbid obesity)? @ -A-fib, CAD, DM, HLD, HTN Was patient admitted / discharged? @ -Discharged. Lab work unremarkable. COVID, influenza, and RSV testing negative. Urinalysis consistent with infection and urine was sent for culture. Chest x-ray demonstrates airspace opacities in the infrahilar region and advised correlation for pneumonia. Advised that we can treat her with levofloxacin to cover for both the pneumonia and UTI. Patient was comfortable with discharge home at that time and has regular caregivers to help her out. Levaquin prescribed for further management. Advised follow-up with her PCP. Patient discharged home with caregiver in stable condition. Case discussed with ED attending Dr. Wood. Return precautions reviewed in depth, the patient is instructed to return to the emergency department with any new, worsening, or concerning symptoms. Patient verbalized understanding. Undiagnosed new problem with uncertain prognosis? @ -None Drug Therapy requiring intensive monitoring for toxicity (Heparin, Nitro, Insulin, Cardizem)? @ -None Were any procedures done? @ -None Diagnosis/symptom? @ -UTI, pneumonia Acute, or Chronic, or Acute on Chronic? @ -Acute Uncomplicated (without systemic symptoms) or Complicated (systemic symptoms)? @ -Complicated Side effects of treatment? @ -None Exacerbation, Progression, or Severe Exacerbation] @ -Not applicable Poses a threat to life or bodily function? @ -Unlikely - Lab Data Result diagrams: 06/07/24 11:20 06/07/24 11:20 Lab Results 06/07/24 06/07/24 06/07/24 Range/Units 11:20 11:20 11:20 WBC 6.65 (4.50-10.00) 10*3/uL RBC 4.29 (4.10-5.20) 10*6/uL Hgb 13.0 (12.0-15.0) g/dL Hct 39.3 (37.2-46.3) % MCV 91.6 (80.0-97.0) fL MCH 30.3 (27.0-32.0) pg MCHC 33.1 (32.0-37.0) g/dL Plt Count 214 (140-440) 10*3/uL MPV 9.1 L (9.5-12.2) fL Immature Gran % (Auto) 0.2 % Neutrophils % 65.4 % Lymphocytes % 23.6 % Monocytes % 7.1 % Eosinophils % 2.9 % Basophils % 0.8 % Immature Gran # 0.01 (0.00-0.04) 10*3/uL Neutrophils # 4.36 (1.80-7.70) 10*3/uL Lymphocytes # 1.57 (0.90-5.00) 10*3/uL Monocytes # 0.47 (0.20-1.00) 10*3/uL Eosinophils # 0.19 (0.04-0.35) 10*3/uL Basophils # 0.05 (0.00-0.10) 10*3/uL PT 12.1 (10.0-12.5) sec INR 1.1 (<1.2) APTT 25.9 (22.0-30.0) sec Sodium 137 (137-145) mmol/L Potassium 4.3 (3.5-5.1) mmol/L Chloride 101 (98-107) mmol/L Carbon Dioxide 28 (22-30) mmol/L Anion Gap 8 mmol/L BUN 18 H (7-17) mg/dL Creatinine 0.60 (0.52-1.04) mg/dL Est GFR (CKD-EPI)AfAm >90 (>60 ml/min/1.73 sqM) Est GFR (CKD-EPI)NonAf 85 (>60 ml/min/1.73 sqM) Glucose 142 H (74-99) mg/dL Plasma Lactic Acid Cj (0.7-2.0) mmol/L Calcium 9.4 (8.4-10.2) mg/dL Magnesium 1.9 (1.6-2.3) mg/dL Total Bilirubin 0.8 (0.2-1.3) mg/dL AST 23 (14-36) U/L ALT 11 (4-34) U/L Alkaline Phosphatase 91 (38-126) U/L Creatine Kinase 22 L (30-135) U/L Troponin I (0.000-0.034) ng/mL Total Protein 6.8 (6.3-8.2) g/dL Albumin 3.6 (3.5-5.0) g/dL Urine Color Urine Appearance (Clear) Urine pH (5.0-8.0) Ur Specific [place] (1.001-1.035) Urine Protein (Negative) Urine Glucose (UA) (Negative) Urine Ketones (Negative) Urine Blood (Negative) Urine Nitrite (Negative) Urine Bilirubin (Negative) Urine Urobilinogen (<2.0) mg/dL Ur Leukocyte Esterase (Negative) Urine RBC (0-5) /hpf Urine WBC (0-5) /hpf Ur Squamous Epith Cells (0-4) /hpf Urine Bacteria (None) /hpf Urine Mucus (None) /hpf Influenza Type A (PCR) (Not Detectd) Influenza Type B (PCR) (Not Detectd) RSV (PCR) (Not Detectd) SARS-CoV-2 (PCR) (Not Detectd) 06/07/24 06/07/24 06/07/24 Range/Units 11:20 11:29 11:29 WBC (4.50-10.00) 10*3/uL RBC (4.10-5.20) 10*6/uL Hgb (12.0-15.0) g/dL Hct (37.2-46.3) % MCV (80.0-97.0) fL MCH (27.0-32.0) pg MCHC (32.0-37.0) g/dL Plt Count (140-440) 10*3/uL MPV (9.5-12.2) fL Immature Gran % (Auto) % Neutrophils % % Lymphocytes % % Monocytes % % Eosinophils % % Basophils % % Immature Gran # (0.00-0.04) 10*3/uL Neutrophils # (1.80-7.70) 10*3/uL Lymphocytes # (0.90-5.00) 10*3/uL Monocytes # (0.20-1.00) 10*3/uL Eosinophils # (0.04-0.35) 10*3/uL Basophils # (0.00-0.10) 10*3/uL PT (10.0-12.5) sec INR (<1.2) APTT (22.0-30.0) sec Sodium (137-145) mmol/L Potassium (3.5-5.1) mmol/L Chloride (98-107) mmol/L Carbon Dioxide (22-30) mmol/L Anion Gap mmol/L BUN (7-17) mg/dL Creatinine (0.52-1.04) mg/dL Est GFR (CKD-EPI)AfAm (>60 ml/min/1.73 sqM) Est GFR (CKD-EPI)NonAf (>60 ml/min/1.73 sqM) Glucose (74-99) mg/dL Plasma Lactic Acid Cj 1.6 (0.7-2.0) mmol/L Calcium (8.4-10.2) mg/dL Magnesium (1.6-2.3) mg/dL Total Bilirubin (0.2-1.3) mg/dL AST (14-36) U/L ALT (4-34) U/L Alkaline Phosphatase (38-126) U/L Creatine Kinase (30-135) U/L Troponin I 0.015 (0.000-0.034) ng/mL Total Protein (6.3-8.2) g/dL Albumin (3.5-5.0) g/dL Urine Color Urine Appearance (Clear) Urine pH (5.0-8.0) Ur Specific [place] (1.001-1.035) Urine Protein (Negative) Urine Glucose (UA) (Negative) Urine Ketones (Negative) Urine Blood (Negative) Urine Nitrite (Negative) Urine Bilirubin (Negative) Urine Urobilinogen (<2.0) mg/dL Ur Leukocyte Esterase (Negative) Urine RBC (0-5) /hpf Urine WBC (0-5) /hpf Ur Squamous Epith Cells (0-4) /hpf Urine Bacteria (None) /hpf Urine Mucus (None) /hpf Influenza Type A (PCR) Not Detected (Not Detectd) Influenza Type B (PCR) Not Detected (Not Detectd) RSV (PCR) Not Detected (Not Detectd) SARS-CoV-2 (PCR) Not Detected (Not Detectd) 06/07/24 Range/Units 11:39 WBC (4.50-10.00) 10*3/uL RBC (4.10-5.20) 10*6/uL Hgb (12.0-15.0) g/dL Hct (37.2-46.3) % MCV (80.0-97.0) fL MCH (27.0-32.0) pg MCHC (32.0-37.0) g/dL Plt Count (140-440) 10*3/uL MPV (9.5-12.2) fL Immature Gran % (Auto) % Neutrophils % % Lymphocytes % % Monocytes % % Eosinophils % % Basophils % % Immature Gran # (0.00-0.04) 10*3/uL Neutrophils # (1.80-7.70) 10*3/uL Lymphocytes # (0.90-5.00) 10*3/uL Monocytes # (0.20-1.00) 10*3/uL Eosinophils # (0.04-0.35) 10*3/uL Basophils # (0.00-0.10) 10*3/uL PT (10.0-12.5) sec INR (<1.2) APTT (22.0-30.0) sec Sodium (137-145) mmol/L Potassium (3.5-5.1) mmol/L Chloride (98-107) mmol/L Carbon Dioxide (22-30) mmol/L Anion Gap mmol/L BUN (7-17) mg/dL Creatinine (0.52-1.04) mg/dL Est GFR (CKD-EPI)AfAm (>60 ml/min/1.73 sqM) Est GFR (CKD-EPI)NonAf (>60 ml/min/1.73 sqM) Glucose (74-99) mg/dL Plasma Lactic Acid Cj (0.7-2.0) mmol/L Calcium (8.4-10.2) mg/dL Magnesium (1.6-2.3) mg/dL Total Bilirubin (0.2-1.3) mg/dL AST (14-36) U/L ALT (4-34) U/L Alkaline Phosphatase (38-126) U/L Creatine Kinase (30-135) U/L Troponin I (0.000-0.034) ng/mL Total Protein (6.3-8.2) g/dL Albumin (3.5-5.0) g/dL Urine Color Light yellow Urine Appearance Cloudy H (Clear) Urine pH 5.5 (5.0-8.0) Ur Specific [place] 1.007 (1.001-1.035) Urine Protein Negative (Negative) Urine Glucose (UA) 4+ H (Negative) Urine Ketones Negative (Negative) Urine Blood Trace H (Negative) Urine Nitrite Positive H (Negative) Urine Bilirubin Negative (Negative) Urine Urobilinogen <2.0 (<2.0) mg/dL Ur Leukocyte Esterase Large H (Negative) Urine RBC 3 (0-5) /hpf Urine WBC 26 H (0-5) /hpf Ur Squamous Epith Cells 2 (0-4) /hpf Urine Bacteria Rare H (None) /hpf Urine Mucus Rare H (None) /hpf Influenza Type A (PCR) (Not Detectd) Influenza Type B (PCR) (Not Detectd) RSV (PCR) (Not Detectd) SARS-CoV-2 (PCR) (Not Detectd) - Radiology Data Radiology results: report reviewed, image reviewed Disposition Clinical Impression: Weakness, UTI (urinary tract infection), Pneumonia Disposition: HOME SELF-CARE Instructions (If sedation given, give patient instructions): Urinary Tract Infection in Women (ED), Pneumonia (ED) Additional Instructions: Return to the emergency department with any new, worsening, or concerning symptoms. Take the antibiotic as prescribed for 5 days. Follow up with your primary care provider in 1-2 days. Prescriptions: Levofloxacin [Levaquin] 750 mg PO DAILY 5 Days #5 tab Is patient prescribed a controlled substance at d/c from ED?: No Referrals: Nicholas Hart MD [Primary Care Provider] - 1-2 days Time of Disposition: 12:17
[2024-06-07] MEDS: SODIUM CHLORIDE 0.9% 1,000 ML IV ONE (11:28)
[2024-06-07] MEDS: ACETAMINOPHEN TAB 500 MG TAB PO STA (11:29)
[2024-06-07 11:37] LABS: Basophils # (A) 0.05 10*3/uL (0.00-0.10); Basophils % (A) 0.8 %; Eosinophils # (A) 0.19 10*3/uL (0.04-0.35); Eosinophils % (A) 2.9 %; HCT 39.3 % (37.2-46.3); Lymphocytes # (A) 1.57 10*3/uL (0.90-5.00); Lymphocytes % (A) 23.6 %; MCH 30.3 pg (27.0-32.0); MCHC 33.1 g/dL (32.0-37.0); MCV 91.6 fL (80.0-97.0); Mean Platelet Volume 9.1 fL (9.5-12.2); Monocytes # (A) 0.47 10*3/uL (0.20-1.00); Monocytes % (A) 7.1 %; Neutrophils # (A) 4.36 10*3/uL (1.80-7.70); Neutrophils % (A) 65.4 %; Platelet Count 214 10*3/uL (140-440); RBC 4.29 10*6/uL (4.10-5.20); RDW 14.7 % (11.5-14.5); WBC 6.65 10*3/uL (4.50-10.00)
[2024-06-07] MEDS: KETOROLAC 15 MG/ML 1 ML VIAL IVP STA (11:38)
--- NOTE | 2024-06-07 11:51 | XR ---
EXAMINATION TYPE: XR chest 2V DATE OF EXAM: 06/07/2024 11:47 AM COMPARISON: Chest radiographs from 02/14/2024. CLINICAL INDICATION: Female, 83 years old with history of Weakness; [facility] TECHNIQUE: XR chest 2V Frontal and lateral views of the chest. FINDINGS: Lungs/Pleura: Some airspace opacities in the infrahilar region on lateral view There is no evidence o f pleural effusion, focal consolidation, or pneumothorax. Pulmonary vascularity: Unremarkable. Heart/mediastinum: Cardiomediastinal silhouette is enlarged. Atherosclerotic calcifications are seen in the aorta. Musculoskeletal: No acute osseous pathology. IMPRESSION: Airspace opacities in the infrahilar region. Correlate for pneumonia. [facility], , 06/07/2024 11:48 AM
[2024-06-07 11:53] LABS: ALT 11 U/L (4-34); AST 23 U/L (14-36); African American GFR (CKD) >90 (>60 ml/min/1.73 sqM); Albumin 3.6 g/dL (3.5-5.0); Alkaline Phosphatase 91 U/L (38-126); Anion Gap 8 mmol/L; Blood Urea Nitrogen 18 mg/dL (7-17); Calcium 9.4 mg/dL (8.4-10.2); Carbon Dioxide 28 mmol/L (22-30); Chloride 101 mmol/L (98-107); Creatine Kinase 22 U/L (30-135); Glucose 142 mg/dL (74-99); Magnesium 1.9 mg/dL (1.6-2.3); Non-African American GFR(CKD) 85 (>60 ml/min/1.73 sqM); Potassium 4.3 mmol/L (3.5-5.1); Sodium 137 mmol/L (137-145); Total Bilirubin 0.8 mg/dL (0.2-1.3); Total Protein 6.8 g/dL (6.3-8.2)
[2024-06-07 11:59] LABS: INR 1.1 (<1.2); Partial Thromboplastin Time 25.9 sec (22.0-30.0); Prothrombin Time 12.1 sec (10.0-12.5)
[2024-06-07 12:02] LABS: Appearance,Urine Cloudy (Clear); Bacteria,Urine Rare /hpf; Bilirubin,Urine Negative (Negative); Blood,Urine Trace (Negative); Glucose,Urine (UA) 4+ (Negative); Ketones,Urine Negative (Negative); Leukocyte Esterase,Urine Large (Negative); Mucus,Urine Rare /hpf; Nitrite,Urine Positive (Negative); PH, Urine 5.5 (5.0-8.0); Protein,Urine Negative (Negative); RBC,Urine 3 /hpf (0-5); Specific Gravity,Urine 1.007 (1.001-1.035); Squamous Epithelial Cell,Urine 2 /hpf (0-4); Urobilinogen,Urine <2.0 mg/dL (<2.0); WBC,Urine 26 /hpf (0-5)
[2024-06-07 12:12] LABS: Color,Urine Light yellow
[2024-06-07 12:12] LABS: Influenza A Not Detected (Not Detectd); Influenza B Not Detected (Not Detectd); RSV Not Detected (Not Detectd)
[2024-06-07] MEDS: LEVOFLOXACIN 750 MG TAB PO STA (12:47)
[2024-06-07] MEDS: LORazepam 2 MG/ML INJ IV STA (12:58)
[2024-06-07 14:29] VITALS: BP 106/70; PULSE 98; RESP 18; TEMP 98.4
== END 2024-06-07 14:28 | disposition home or self-care (01) ==
LOC: EC 09:36
DX: N39.0 Urinary tract infection, site not specified (principal); J18.9 Pneumonia, unspecified organism; B96.20 Unspecified Escherichia coli [E. coli] as the cause of diseases classified elsewhere; E11.9 Type 2 diabetes mellitus without complications; I10 Essential (primary) hypertension; I25.10 Atherosclerotic heart disease of native coronary artery without angina pectoris; I48.20 Chronic atrial fibrillation, unspecified; E78.5 Hyperlipidemia, unspecified; E66.01 Morbid (severe) obesity due to excess calories; Z11.52 Encounter for screening for COVID-19; Z88.1 Allergy status to other antibiotic agents; Z79.4 Long term (current) use of insulin; Z79.84 Long term (current) use of oral hypoglycemic drugs; Z79.01 Long term (current) use of anticoagulants; Z91.09 Other allergy status, other than to drugs and biological substances; Z79.899 Other long term (current) drug therapy; Z87.891 Personal history of nicotine dependence; Z68.27 Body mass index [BMI] 27.0-27.9, adult
CPT/HCPCS: 36415; 93005; 80053; 82550; 83605; 83735; 84484; 85025; 85610; 85730; 81001; 87086; 87077; 87186; 87636; 71046; 99285; 96374; 96361; J1885

== ENCOUNTER 2024-06-12 17:15 | Emergency (ER) | payer MEDICARE ==
--- NOTE | 2024-06-12 17:46 | ED ---
General Adult HPI - General Source: patient, EMS, RN notes reviewed, Caregiver Mode of arrival: EMS <Tray Felipe - Last Filed: 06/12/24 20:10> <Dede Young - Last Filed: 06/13/24 05:04> - General Chief complaint: Psychiatric Symptoms Stated complaint: petition, confusion Time Seen by Provider: 06/12/24 17:19 - History of Present Illness Initial comments: Patient is an 83-year-old female presenting to the emergency department with caregiver with concern for not taking her medications. Patient does have problems with dementia and does have 24-hour caregivers. Patient refused her medications today. Patient blames caregiver hiding her medications. Patient has also not slept well in the past 2 days nor eaten well in the past 2 days. Patient only has complaints of pain which is chronic for her. (Tray Felipe) - Related Data Home Medications Medication Instructions Recorded Confirmed Latanoprost [Xalatan 0.005%] 1 drop BOTH EYES HS@199908/11/17 06/12/24 Calcium Citrate/Vitamin D3 1 tab PO DAILY@0800 11/16/21 06/12/24 [Citracal + D Maximum Caplet] Digoxin [Lanoxin] 125 mcg PO Q48H 11/16/21 06/12/24 Nitroglycerin Sl Tabs [Nitrostat] 0.4 mg SL Q5M PRN 11/16/21 06/12/24 Adalimumab [Humira(Cf) Pen] 40 mg SQ Q14D 01/09/22 06/12/24 Apixaban [Eliquis] 5 mg PO BID@799,199905/02/22 06/12/24 INSULIN LISPRO (HumaLOG) [humaLOG] 5 units SQ TID-W/MEALS@,05/02/22 06/12/24 INSULIN LISPRO (HumaLOG) [humaLOG] See Protocol SQ 05/02/22 06/12/24 TID-W/MEALS@, traZODone HCL [Desyrel] 50 mg PO HS@199912/15/22 06/12/24 Tolterodine ER [Detrol LA] 4 mg PO DAILY@0800 05/15/23 06/12/24 metFORMIN HCL [Glucophage] 1,000 mg PO BID@799,199905/25/23 06/12/24 Acetaminophen Tab [Tylenol] 500 mg PO QID@,,,11/23/23 06/12/24 Loratadine [Claritin] 10 mg PO DAILY@79911/23/23 06/12/24 Magnesium Oxide [Mag-Ox] 250 mg PO DAILY@79911/23/23 06/12/24 Potassium Chloride ER [K-Dur 20] 20 meq PO BID@799,199911/23/23 06/12/24 SILVER sulfADIAZINE Cream 1 applic TOPICAL DAILY@79901/05/24 06/12/24 [Silvadene 1% Cream] methocarbamoL [Robaxin-750] 750 mg PO QID@,,,01/05/24 06/12/24 Albuterol Nebulized [Ventolin 2.5 mg INHALATION RT-Q6H PRN 02/14/24 06/12/24 Nebulized] Bumetanide [BUMEX] 1 mg PO DAILY@79902/14/24 06/12/24 Docusate [Colace] 100 mg PO BID PRN 02/14/24 06/12/24 Empagliflozin [Jardiance] 10 mg PO DAILY@79902/14/24 06/12/24 Insulin Glargine,Hum.rec.anlog 20 units SQ BID@799,199902/14/24 06/12/24 [Lantus Solostar Pen] Lidocaine 4% Patch 1 patch TOPICAL HS@199902/14/24 06/12/24 Multivitamins, Thera [Multivitamin 1 tab PO DAILY@79902/14/24 06/12/24 (formulary)] Sennosides [Senokot] 17.2 mg PO HS PRN 02/14/24 06/12/24 Gabapentin 600 mg PO TID@,,05/31/24 06/12/24 Gentamicin 0.1% Cream 1 applic TOPICAL DAILY 05/31/24 06/12/24 Levothyroxine Sodium [Synthroid] 200 mcg PO DAILY@79905/31/24 06/12/24 oxyCODONE-APAP 10-325MG [Percocet 1 tab PO QID@,,,06/07/24 06/12/24 10-325 mg] Previous Rx's Medication Instructions Recorded Magnesium Hydroxide [Milk of 2,400 mg PO DAILY PRN ml 01/10/24 Magnesia] Allergies Allergy/AdvReac Type Severity Reaction Status Date / Time adhesive Allergy Rash/Hives Verified 06/12/24 17:25 cephalexin [From Keflex] Allergy Rash/Hives Verified 06/12/24 17:25 grass pollen Allergy Unknown Verified 06/12/24 17:25 mold Allergy Unknown Verified 06/12/24 17:25 newspaper ink Allergy Mild Unknown Uncoded 06/12/24 17:25 Review of Systems ROS Other: All systems not noted in ROS Statement are negative. Constitutional: Denies: fever Eyes: Denies: eye pain ENT: Denies: ear pain Respiratory: Denies: cough Cardiovascular: Denies: chest pain Gastrointestinal: Denies: abdominal pain Musculoskeletal: Reports: as per HPI Neurological: Reports: as per HPI <Tray Felipe - Last Filed: 06/12/24 20:10> ROS Other: All systems not noted in ROS Statement are negative. <Dede Young - Last Filed: 06/13/24 05:04> ROS Statement: Those systems with pertinent positive or pertinent negative responses have been documented in the HPI. Past Medical History Past Medical History: Atrial Fibrillation, Coronary Artery Disease (CAD), Cancer, Diabetes Mellitus, Hyperlipidemia, Hypertension, Musculoskeletal Disorder, Neurologic Disorder, Osteoarthritis (OA), Pneumonia, Renal Disease, Rheumatoid Arthritis (RA), Skin Disorder, Thyroid Disorder Additional Past Medical History / Comment(s): Morbid obesity, chronic atrial fibrillation, diabetes mellitus type 2, hypertension, hyperlipidemia, spinal stenosis, osteoarthritis, hypothyroidism, hypertension, history of skin melanoma, history of bursitis with MRSA post I&D, rheumatoid arthritis, Sjogren' s disease, 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 without any indication of ILD related to RA, Fall on July 22 transfer to [facility] for MRI, then Fall on 11/16/21 History of Any Multi-Drug Resistant Organisms: ESBL, MRSA Date of last positivie culture/infection: 06/07/24-ESBL; 09/02/22-MRSA MDRO Source:: ESBL-urine; MRSA-Rt Leg Past Surgical History: Back Surgery, Breast Surgery, Cholecystectomy, Heart Catheterization, Joint Replacement, Orthopedic Surgery Additional Past Surgical History / Comment(s): Bilateral cataracts with lens implants, arthroscopies to lt wrist, gualberto knees, gualberto ankles, gualberto hips, lt hip replacment and redone, L/R shoulder sxs, rt breast bx-benign, egd/colonoscopy, skin cancer removal L arm, Lumbar fixnation possible broken Past Anesthesia/Blood Transfusion Reactions: No Reported Reaction Additional Past Anesthesia/Blood Transfusion Reaction / Comment(s): Pt has been told not to have anesthesia metabolized by the kidneys and has neurologic Sjogren's with post anesthesia paralysis. Past Psychological History: No Psychological Hx Reported Smoking Status: Former smoker Past Alcohol Use History: None Reported Past Drug Use History: None Reported - Past Family History Mother Family Medical History: CVA/TIA Additional Family Medical History / Comment(s): RUPTURED BOWEL Father Family Medical History: Cancer, Pneumonia Additional Family Medical History / Comment(s): ASPIRATIVE PNA Sister(s) Additional Family Medical History / Comment(s): at age 34 with lupus <Tray Felipe - Last Filed: 06/12/24 20:10> General Exam Limitations: no limitations General appearance: alert, in no apparent distress Head exam: Present: normocephalic Eye exam: Present: normal appearance, PERRL, EOMI ENT exam: Present: normal oropharynx Neck exam: Present: normal inspection. Absent: tenderness Respiratory exam: Present: normal lung sounds bilaterally Cardiovascular Exam: Present: regular rate, normal rhythm GI/Abdominal exam: Present: soft. Absent: tenderness Extremities exam: Present: normal inspection Neurological exam: Present: alert, oriented X3, CN II-XII intact. Absent: motor sensory deficit Psychiatric exam: Present: normal affect, normal mood Skin exam: Present: normal color <Tray Felipe Last Filed: 06/12/24 20:10> Course Vital Signs 06/12/24 06/12/24 17:18 21:31 Temperature 97.5 F L 98.6 F Pulse Rate 91 115 H Respiratory 18 20 Rate Blood Pressure 119/107 126/86 O2 Sat by Pulse 99 95 Oximetry Medical Decision Making - Lab Data Result diagrams: 06/12/24 18:11 06/12/24 18:11 <Tray Felipe Last Filed: 06/12/24 20:10> - Lab Data Result diagrams: 06/12/24 18:11 06/12/24 18:11 <Dede Young - Last Filed: 06/13/24 05:04> - Medical Decision Making Was pt. sent in by a medical professional or institution (YEIMI Rivera, EMPLOYEE RELATION MANAGER, urgent care, hospital, or usp...) When possible be specific @ -Patient is brought in by her clinical informatics spec Did you speak to anyone other than the patient for history (EMS, parent, family, police, friend...)? What history was obtained from this source @ -Communication Signals Intelligence provides history that patient is reluctant to Did you review nursing and triage notes (agree or disagree)? Why? @ -I reviewed and agree with nursing and triage notes Were old charts reviewed (outside hosp., previous admission, EMS record, old EKG, old radiological studies, urgent care reports/EKG's, usp records)? Report findings @ -No old charts were reviewed Differential Diagnosis (chest pain, altered mental status, abdominal pain women, abdominal pain men, vaginal bleeding, weakness, fever, dyspnea, syncope, headache, dizziness, GI bleed, back pain, seizure, CVA, palpatations, mental health, musculoskeletal)? @ -Differential Mental Health Depression, anxiety, bipolar, psychosis, schizophrenia, borderline personality, situational depression, adjustment disorder, behavioral disorder, brain tumor, malingering, substance abuse, encephalopathy, medication reaction, dementia, hypothyroidism, degenerative neurologic disorder, lupus.... This is not meant to be all-inclusive list EKG interpreted by me (3pts min.). @ -As above X-rays interpreted by me (1pt min.). @ -None done CT interpreted by me (1pt min.). @ -None done U/S interpreted by me (1pt. min.). @ -None done What testing was considered but not performed or refused? (CT, X-rays, U/S, labs)? Why? @ -None What meds were considered but not given or refused? Why? @ -None Did you discuss the management of the patient with other professionals (professionals i.e. YEIMI Rivera, EMPLOYEE RELATION MANAGER, lab, RT, psych nurse, community mental health social worker, auditing clerk, teacher, job placement officer, case management manager)? Give summary @ -Psychiatric nurse Was smoking cessation discussed for >3mins.? @ -No Was critical care preformed (if so, how long)? @ -No Were there social determinants of health that impacted care today? How? (Amalia elessness, low income, unemployed, alcoholism, drug addiction, transportation, low edu. Level, literacy, decrease access to med. care, half-way, rehab)? @ -No Was there de-escalation of care discussed even if they declined (Discuss DNR or withdrawal of care, Hospice)? DNR status @ -No What co-morbidities impacted this encounter? (DM, HTN, Smoking, COPD, CAD, Cancer, CVA, ARF, Chemo, Hep., AIDS, mental health diagnosis, sleep apnea, morbid obesity)? @ -None Was patient admitted / discharged? Hospital course, mention meds given and route, prescriptions, significant lab abnormalities, going to OR and other pertinent info. @ -Patient presents with concerns for not taking her medications and not sleeping and eating well. Patient seen by mental health services for disposition Undiagnosed new problem with uncertain prognosis? @ -No Drug Therapy requiring intensive monitoring for toxicity (Heparin, Nitro, Insulin, Cardizem)? @ -No Were any procedures done? @ -No Diagnosis/symptom? @ -Adjustment disorder Acute, or Chronic, or Acute on Chronic? @ -Acute Uncomplicated (without systemic symptoms) or Complicated (systemic symptoms)? @ -Default Side effects of treatment? @ -No Exacerbation, Progression, or Severe Exacerbation? @ -No Poses a threat to life or bodily function? How? (Chest pain, USA, CT, pneumonia, PE, COPD, DKA, ARF, appy, cholecystitis, CVA, Diverticulitis, Homicidal, Suicidal, threat to staff... and all critical care pts) @ -No (Tray Felipe) Patient was evaluated by EPS. Patient is not suicidal or homicidal. Patient may not be in the correct setting at home however this will be up to the caretakers to find different placement for the patient. EPS did speak with the caretakers who were agreeable to taking the patient home and finding a different arrangement. Patient was agreeable to going home. She was discharged in stable condition (Dede Young) - Lab Data Lab Results 06/12/24 06/12/24 06/12/24 Range/Units 18:11 18:11 19:58 WBC 6.74 (4.50-10.00) 10*3/uL RBC 4.31 (4.10-5.20) 10*6/uL Hgb 12.8 (12.0-15.0) g/dL Hct 39.6 (37.2-46.3) % MCV 91.9 (80.0-97.0) fL MCH 29.7 (27.0-32.0) pg MCHC 32.3 (32.0-37.0) g/dL Plt Count 185 (140-440) 10*3/uL MPV 9.0 L (9.5-12.2) fL Immature Gran % (Auto) 0.3 % Neutrophils % 70.5 % Lymphocytes % 21.2 % Monocytes % 6.4 % Eosinophils % 1.0 % Basophils % 0.6 % Immature Gran # 0.02 (0.00-0.04) 10*3/uL Neutrophils # 4.75 (1.80-7.70) 10*3/uL Lymphocytes # 1.43 (0.90-5.00) 10*3/uL Monocytes # 0.43 (0.20-1.00) 10*3/uL Eosinophils # 0.07 (0.04-0.35) 10*3/uL Basophils # 0.04 (0.00-0.10) 10*3/uL Sodium 136 L (137-145) mmol/L Potassium 5.0 (3.5-5.1) mmol/L Chloride 104 (98-107) mmol/L Carbon Dioxide 20 L (22-30) mmol/L Anion Gap 12 mmol/L BUN 21 H (7-17) mg/dL Creatinine 0.62 (0.52-1.04) mg/dL Est GFR (CKD-EPI)AfAm >90 (>60 ml/min/1.73 sqM) Est GFR (CKD-EPI)NonAf 84 (>60 ml/min/1.73 sqM) Glucose 154 H (74-99) mg/dL Calcium 9.4 (8.4-10.2) mg/dL Urine Color Urine Appearance (Clear) Urine pH (5.0-8.0) Ur Specific [place] (1.001-1.035) Urine Protein (Negative) Urine Glucose (UA) (Negative) Urine Ketones (Negative) Urine Blood (Negative) Urine Nitrite (Negative) Urine Bilirubin (Negative) Urine Urobilinogen (<2.0) mg/dL Ur Leukocyte Esterase (Negative) Urine RBC (0-5) /hpf Urine WBC (0-5) /hpf Ur Squamous Epith Cells (0-4) /hpf Urine Mucus (None) /hpf Urine Opiates Screen Not Detected (NotDetected) Ur Oxycodone Screen Detected H (NotDetected) Urine Methadone Screen Not Detected (NotDetected) Ur Barbiturates Screen Not Detected (NotDetected) U Tricyclic Antidepress Not Detected (NotDetected) Ur Phencyclidine Scrn Not Detected (NotDetected) Ur Amphetamines Screen Not Detected (NotDetected) U Methamphetamines Scrn Not Detected (NotDetected) U Benzodiazepines Scrn Detected H (NotDetected) Urine Cocaine Screen Not Detected (NotDetected) U Marijuana (THC) Screen Not Detected (NotDetected) Serum Alcohol <10 mg/dL 06/12/24 Range/Units 19:58 WBC (4.50-10.00) 10*3/uL RBC (4.10-5.20) 10*6/uL Hgb (12.0-15.0) g/dL Hct (37.2-46.3) % MCV (80.0-97.0) fL MCH (27.0-32.0) pg MCHC (32.0-37.0) g/dL Plt Count (140-440) 10*3/uL MPV (9.5-12.2) fL Immature Gran % (Auto) % Neutrophils % % Lymphocytes % % Monocytes % % Eosinophils % % Basophils % % Immature Gran # (0.00-0.04) 10*3/uL Neutrophils # (1.80-7.70) 10*3/uL Lymphocytes # (0.90-5.00) 10*3/uL Monocytes # (0.20-1.00) 10*3/uL Eosinophils # (0.04-0.35) 10*3/uL Basophils # (0.00-0.10) 10*3/uL Sodium (137-145) mmol/L Potassium (3.5-5.1) mmol/L Chloride (98-107) mmol/L Carbon Dioxide (22-30) mmol/L Anion Gap mmol/L BUN (7-17) mg/dL Creatinine (0.52-1.04) mg/dL Est GFR (CKD-EPI)AfAm (>60 ml/min/1.73 sqM) Est GFR (CKD-EPI)NonAf (>60 ml/min/1.73 sqM) Glucose (74-99) mg/dL Calcium (8.4-10.2) mg/dL Urine Color Colorless Urine Appearance Clear (Clear) Urine pH 5.5 (5.0-8.0) Ur Specific [place] 1.022 (1.001-1.035) Urine Protein Negative (Negative) Urine Glucose (UA) 4+ H (Negative) Urine Ketones Trace H (Negative) Urine Blood Small H (Negative) Urine Nitrite Negative (Negative) Urine Bilirubin Negative (Negative) Urine Urobilinogen <2.0 (<2.0) mg/dL Ur Leukocyte Esterase Trace H (Negative) Urine RBC 9 H (0-5) /hpf Urine WBC 9 H (0-5) /hpf Ur Squamous Epith Cells 2 (0-4) /hpf Urine Mucus Rare H (None) /hpf Urine Opiates Screen (NotDetected) Ur Oxycodone Screen (NotDetected) Urine Methadone Screen (NotDetected) Ur Barbiturates Screen (NotDetected) U Tricyclic Antidepress (NotDetected) Ur Phencyclidine Scrn (NotDetected) Ur Amphetamines Screen (NotDetected) U Methamphetamines Scrn (NotDetected) U Benzodiazepines Scrn (NotDetected) Urine Cocaine Screen (NotDetected) U Marijuana (THC) Screen (NotDetected) Serum Alcohol mg/dL Disposition Is patient prescribed a controlled substance at d/c from ED?: No <Tray Felipe - Last Filed: 06/12/24 20:10> Time of Disposition: 21:29 <Dede Young - Last Filed: 06/13/24 05:04> Clinical Impression: Adjustment disorder Disposition: HOME SELF-CARE Condition: Stable Instructions (If sedation given, give patient instructions): Stress (ED) Referrals: Nicholas Hart MD [Primary Care Provider] - 1-2 days
[2024-06-12] MEDS: LORazepam 2 MG/ML INJ IV STA (18:48)
[2024-06-12 19:40] LABS: Basophils # (A) 0.04 10*3/uL (0.00-0.10); Basophils % (A) 0.6 %; Eosinophils # (A) 0.07 10*3/uL (0.04-0.35); HCT 39.6 % (37.2-46.3); HGB 12.8 g/dL (12.0-15.0); Lymphocytes # (A) 1.43 10*3/uL (0.90-5.00); Lymphocytes % (A) 21.2 %; MCH 29.7 pg (27.0-32.0); MCHC 32.3 g/dL (32.0-37.0); MCV 91.9 fL (80.0-97.0); Monocytes # (A) 0.43 10*3/uL (0.20-1.00); Monocytes % (A) 6.4 %; Neutrophils # (A) 4.75 10*3/uL (1.80-7.70); Neutrophils % (A) 70.5 %; Platelet Count 185 10*3/uL (140-440); RBC 4.31 10*6/uL (4.10-5.20); RDW 14.6 % (11.5-14.5); WBC 6.74 10*3/uL (4.50-10.00)
[2024-06-12 20:04] LABS: African American GFR (CKD) >90 (>60 ml/min/1.73 sqM); Alcohol <10 mg/dL; Anion Gap 12 mmol/L; Blood Urea Nitrogen 21 mg/dL (7-17); Calcium 9.4 mg/dL (8.4-10.2); Carbon Dioxide 20 mmol/L (22-30); Chloride 104 mmol/L (98-107); Glucose 154 mg/dL (74-99); Non-African American GFR(CKD) 84 (>60 ml/min/1.73 sqM); Sodium 136 mmol/L (137-145)
[2024-06-12 20:11] LABS: Appearance,Urine Clear (Clear); Bilirubin,Urine Negative (Negative); Blood,Urine Small (Negative); Color,Urine Colorless; Glucose,Urine (UA) 4+ (Negative); Ketones,Urine Trace (Negative); Leukocyte Esterase,Urine Trace (Negative); Mucus,Urine Rare /hpf; Nitrite,Urine Negative (Negative); PH, Urine 5.5 (5.0-8.0); Protein,Urine Negative (Negative); RBC,Urine 9 /hpf (0-5); Specific Gravity,Urine 1.022 (1.001-1.035); Squamous Epithelial Cell,Urine 2 /hpf (0-4); Urobilinogen,Urine <2.0 mg/dL (<2.0); WBC,Urine 9 /hpf (0-5)
[2024-06-12 20:50] LABS: Amphetamine Screen,Urine Not Detected (NotDetected); Cocaine Screen,Urine Not Detected (NotDetected); Opiate Screen,Urine Not Detected (NotDetected); Phencyclidine Screen,Urine Not Detected (NotDetected); Urn Cannabinoid Scrn Not Detected (NotDetected)
[2024-06-12 20:51] LABS: Barbiturate Screen,Urine Not Detected (NotDetected); Benzodiazepines Screen,Urine Detected (NotDetected); Methadone Screen, Urine Not Detected (NotDetected); Oxycodone Screen, Urine Detected (NotDetected); Tricyclic Antidepressant,Urine Not Detected (NotDetected)
[2024-06-12 21:35] VITALS: BP 126/86; PULSE 115; RESP 20; TEMP 98.6
== END 2024-06-12 23:45 | disposition home or self-care (01) ==
LOC: EC 17:15
DX: F43.20 Adjustment disorder, unspecified (principal); Z87.891 Personal history of nicotine dependence; Z91.048 Other nonmedicinal substance allergy status; Z88.1 Allergy status to other antibiotic agents; Z77.120 Contact with and (suspected) exposure to mold (toxic); Z88.8 Allergy status to other drugs, medicaments and biological substances
CPT/HCPCS: 36415; 80048; 85025; 81001; 80306; 80320; 99285; 96374; J2060

== ENCOUNTER 2024-06-26 18:22 | Inpatient (IN) | payer MEDICARE ==
[2024-06-26] MEDS: LORazepam 2 MG/ML INJ IM STA (18:48)
--- NOTE | 2024-06-26 19:27 | ED ---
Altered Mental Status HPI - General Chief Complaint: Altered Mental Status Stated Complaint: AMS Time Seen by Provider: 06/26/24 18:25 Source: patient, EMS, RN notes reviewed Mode of arrival: EMS Limitations: no limitations - History of Present Illness Initial Comments: This is an 83-year-old female who presents to the emergency department for possible altered mental status and essentially failure to thrive. Patient has been going downhill over the last several months according to her home health care nurses. She has been refusing to take any of her medications, she is hallucinating, and becoming aggressive. Today she threatened to call the police to her house because she thought that she was being held captive in her own home. EMS initially received a call for pain all over, which the patient has complained of before. However, when they arrived she advised that she was not complaining of any pain. States that she just wants to go home and does not want anything done. Also makes statements such as "I just want to ". She is very agitated on initial examination and being very rude with staff and myself. MD Complaint: altered mental status - Related Data Home Medications Medication Instructions Recorded Confirmed Latanoprost [Xalatan 0.005%] 1 drop BOTH EYES HS@199908/11/17 06/12/24 Calcium Citrate/Vitamin D3 1 tab PO DAILY@0800 11/16/21 06/12/24 [Citracal + D Maximum Caplet] Digoxin [Lanoxin] 125 mcg PO Q48H 11/16/21 06/12/24 Nitroglycerin Sl Tabs [Nitrostat] 0.4 mg SL Q5M PRN 11/16/21 06/12/24 Adalimumab [Humira(Cf) Pen] 40 mg SQ Q14D 01/09/22 06/12/24 Apixaban [Eliquis] 5 mg PO BID@08,199905/02/22 06/12/24 INSULIN LISPRO (HumaLOG) [humaLOG] 5 units SQ TID-W/MEALS@,,05/02/22 06/12/24 INSULIN LISPRO (HumaLOG) [humaLOG] See Protocol SQ 05/02/22 06/12/24 TID-W/MEALS@,, traZODone HCL [Desyrel] 50 mg PO HS@199912/15/22 06/12/24 Tolterodine ER [Detrol LA] 4 mg PO DAILY@79905/15/23 06/12/24 metFORMIN HCL [Glucophage] 1,000 mg PO BID@799,199905/25/23 06/12/24 Acetaminophen Tab [Tylenol] 500 mg PO QID@02,,,11/23/23 06/12/24 Loratadine [Claritin] 10 mg PO DAILY@79911/23/23 06/12/24 Magnesium Oxide [Mag-Ox] 250 mg PO DAILY@79911/23/23 06/12/24 Potassium Chloride ER [K-Dur 20] 20 meq PO BID@799,199911/23/23 06/12/24 SILVER sulfADIAZINE Cream 1 applic TOPICAL DAILY@79901/05/24 06/12/24 [Silvadene 1% Cream] methocarbamoL [Robaxin-750] 750 mg PO QID@,,,01/05/24 06/12/24 Albuterol Nebulized [Ventolin 2.5 mg INHALATION RT-Q6H PRN 02/14/24 06/12/24 Nebulized] Bumetanide [BUMEX] 1 mg PO DAILY@79902/14/24 06/12/24 Docusate [Colace] 100 mg PO BID PRN 02/14/24 06/12/24 Empagliflozin [Jardiance] 10 mg PO DAILY@79902/14/24 06/12/24 Insulin Glargine,Hum.rec.anlog 20 units SQ BID@799,199902/14/24 06/12/24 [Lantus Solostar Pen] Lidocaine 4% Patch 1 patch TOPICAL HS@199902/14/24 06/12/24 Multivitamins, Thera [Multivitamin 1 tab PO DAILY@79902/14/24 06/12/24 (formulary)] Sennosides [Senokot] 17.2 mg PO HS PRN 02/14/24 06/12/24 Gabapentin 600 mg PO TID@,,05/31/24 06/12/24 Gentamicin 0.1% Cream 1 applic TOPICAL DAILY 05/31/24 06/12/24 Levothyroxine Sodium [Synthroid] 200 mcg PO DAILY@0800 05/31/24 06/12/24 oxyCODONE-APAP 10-325MG [Percocet 1 tab PO QID@02,08,14,20 06/07/24 06/12/24 10-325 mg] Previous Rx's Medication Instructions Recorded Magnesium Hydroxide [Milk of 2,400 mg PO DAILY PRN ml 01/10/24 Magnesia] Allergies Allergy/AdvReac Type Severity Reaction Status Date / Time adhesive Allergy Rash/Hives Verified 06/26/24 18:33 cephalexin [From Keflex] Allergy Rash/Hives Verified 06/26/24 18:33 grass pollen Allergy Unknown Verified 06/26/24 18:33 mold Allergy Unknown Verified 06/26/24 18:33 newspaper ink Allergy Mild Unknown Uncoded 06/26/24 18:33 Review of Systems ROS Statement: Those systems with pertinent positive or pertinent negative responses have been documented in the HPI. ROS Other: All systems not noted in ROS Statement are negative. Past Medical History Past Medical History: Atrial Fibrillation, Coronary Artery Disease (CAD), Cancer, Diabetes Mellitus, Hyperlipidemia, Hypertension, Musculoskeletal Disorder, Neurologic Disorder, Osteoarthritis (OA), Pneumonia, Renal Disease, Rheumatoid Arthritis (RA), Skin Disorder, Thyroid Disorder Additional Past Medical History / Comment(s): Morbid obesity, chronic atrial fibrillation, diabetes mellitus type 2, hypertension, hyperlipidemia, spinal stenosis, osteoarthritis, hypothyroidism, hypertension, history of skin melanoma, history of bursitis with MRSA post I&D, rheumatoid arthritis, Sjogren's disease, 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 for [facility], then Fall on 11/16/21 History of Any Multi-Drug Resistant Organisms: ESBL, MRSA Date of last positivie culture/infection: 06/07/24-ESBL; 09/02/22-MRSA MDRO Source:: ESBL-urine; MRSA-Rt Leg Past Surgical History: Back Surgery, Breast Surgery, Cholecystectomy, Heart Catheterization, Joint Replacement, Orthopedic Surgery Additional Past Surgical History / Comment(s): Bilateral cataracts with lens implants, arthroscopies to lt wrist, gualberto knees, gualberto ankles, gualberto hips, lt hip replacment and redone, L/R shoulder sxs, rt breast bx-benign, egd/colonoscopy, skin cancer removal L arm, Lumbar fixnation possible broken Past Anesthesia/Blood Transfusion Reactions: No Reported Reaction Additional Past Anesthesia/Blood Transfusion Reaction / Comment(s): Pt has been told not to have anesthesia metabolized by the kidneys and has neurologic Sjogren's with post anesthesia paralysis. Past Psychological History: No Psychological Hx Reported Smoking Status: Former smoker Past Alcohol Use History: None Reported Past Drug Use History: None Reported - Past Family History Mother Family Medical History: CVA/TIA Additional Family Medical History / Comment(s): RUPTURED BOWEL Father Family Medical History: Cancer, Pneumonia Additional Family Medical History / Comment(s): ASPIRATIVE PNA Sister(s) Additional Family Medical History / Comment(s): at age 34 with lupus General Exam Limitations: no limitations General appearance: alert, in no apparent distress Head exam: Present: atraumatic, normocephalic, normal inspection Respiratory exam: Present: normal lung sounds bilaterally. Absent: respiratory distress, wheezes, rales, rhonchi, stridor Cardiovascular Exam: Present: tachycardia, irregular rhythm GI/Abdominal exam: Present: soft. Absent: distended, tenderness Neurological exam: Present: alert, oriented X3, CN II-XII intact Psychiatric exam: Present: agitated Skin exam: Present: warm, dry, intact, normal color. Absent: rash Course Vital Signs 06/26/24 06/27/24 18:23 00:02 Pulse Rate 142 H 91 Respiratory 18 18 Rate Blood Pressure 132/94 O2 Sat by Pulse 96 95 Oximetry Medical Decision Making - Medical Decision Making This is an 83 year old female who presents to the emergency department for altered mental status. Was pt. sent in by a medical professional or institution? @ -No Did you speak to anyone other than the patient for history? @ -Patient's home care nurses provided the majority of the history. Did you review nursing and triage notes? @ -Yes, and I agree, it is accurate with regards to the patient's symptoms. Were old charts reviewed? @ -Urine culture from 06/07/2024 which was positive for ESBL E. coli Differential Diagnosis? @ -Differential Altered Mental Status: Hypoglycemia, DKA, hypercapnia, ETOH, overdose, CO poisoning, trauma, myxedema coma, HTN encephalopathy, infection, encephalitis, psychosis, intercranial hemorrhage, hepatic encephalopathy, meningitis, CVA, this is not meant to be an all-inclusive list EKG interpreted by me (3pts min.)? @ -EKG interpreted by me demonstrating the following: A-fib with RVR. Ventricular rate 120 bpm, QRS duration 110 ms, QTc 397 ms. X-rays interpreted by me (1pt min.)? @ -Chest x-ray obtained, my interpretation identifies no localized consolidations or infiltrates. CT interpreted by me (1pt min.)? @ -Not obtained U/S interpreted by me (1pt. min.)? @ -Not obtained What testing was considered but not performed? (CT, X-rays, U/S, labs)? Why? @ -None What meds were considered but not given? Why? @ -None Did you discuss the management of the patient with other professionals? @ -Yes, Hanane Ta with [facility], who accepts the patient for admission Did you reconcile home meds? @ -No Was smoking cessation discussed for >3mins.? @ -No Was critical care preformed (if so, how long)? @ -No Were there social determinants of health that impacted care today? How? (Homelessness, low income, unemployed, alcoholism, drug addiction, transportation, low edu. Level, literacy, decrease access to med. care, penitentiary, rehab)? @ -No Was there de-escalation of care discussed even if they declined? (Discuss DNR or withdrawal of care, Hospice)? @ -No What co-morbidities impacted this encounter? (DM, HTN, Smoking, COPD, CAD, Cancer, CVA, Hep., AIDS, mental health diagnosis, sleep apnea, morbid obesity)? @ -A-fib, CAD, DM, HLD, HTN Was patient admitted / discharged? @ -Admitted. When the patient arrived for the first couple of hours staff was going back and forth with the patient as she was refusing to let anyone do anything to help her. She was found to be in A-fib with RVR with a heart rate ranging from the 140s-150s. She has a legal guardian and is unable to make her own medical decisions. Because of this and her abnormal mental state, she was advised that a workup had to be done. She was still refusing care and had to be given Ativan and Haldol. Lab work was relatively unremarkable. Urinalysis remained consistent with infection. She was diagnosed with a UTI earlier this month. However, her home care nurses advised that she has been refusing to take her medications aside from her Percocet, and it is possible that she has not been treating this at all, which could contribute to some increased confusion and agitation with her. However, she has been here several times and each time is always fairly agitated and rude with staff. The A-fib with RVR did persist and she was started on a Cardizem drip. Blood culture and repeat urine culture were ordered. She is allergic to cephalosporins. Based on urine culture from 06/07/2024 fluoroquinolone were shown to be effective. She was started on ciprofloxacin for the UTI. Patient admitted to medicine for ESBL E. coli UTI an d A-fib with RVR. Consult placed for cardiology and infectious disease. Psychiatry consulted as well for patient's agitation/aggression and occasional suicidal statements. Case management also consulted as patient may benefit from ECF placement. She is not doing well with her home care nurses and is refusing their help. Case discussed with ED attending Dr. Young. Undiagnosed new problem with uncertain prognosis? @ -None Drug Therapy requiring intensive monitoring for toxicity (Heparin, Nitro, Insulin, Cardizem)? @ -Cardizem Were any procedures done? @ -None Diagnosis/symptom? @ -A-fib with RVR, ESBL E. coli UTI Acute, or Chronic, or Acute on Chronic? @ -Acute Uncomplicated (without systemic symptoms) or Complicated (systemic symptoms)? @ -Complicated Side effects of treatment? @ -None Exacerbation, Progression, or Severe Exacerbation] @ -Not applicable Poses a threat to life or bodily function? @ -Yes, patient unable to function - Lab Data Result diagrams: 06/26/24 22:13 06/26/24 22:13 Lab Results 06/26/24 06/26/24 06/26/24 Range/Units 20:33 22:13 22:13 WBC 7.17 (4.50-10.00) 10*3/uL RBC 4.97 (4.10-5.20) 10*6/uL Hgb 15.1 H (12.0-15.0) g/dL Hct 45.4 (37.2-46.3) % MCV 91.3 (80.0-97.0) fL MCH 30.4 (27.0-32.0) pg MCHC 33.3 (32.0-37.0) g/dL Plt Count 209 (140-440) 10*3/uL MPV 9.3 L (9.5-12.2) fL Immature Gran % (Auto) 0.3 % Neutrophils % 70.0 % Lymphocytes % 22.0 % Monocytes % 6.0 % Eosinophils % 1.1 % Basophils % 0.6 % Immature Gran # 0.02 (0.00-0.04) 10*3/uL Neutrophils # 5.02 (1.80-7.70) 10*3/uL Lymphocytes # 1.58 (0.90-5.00) 10*3/uL Monocytes # 0.43 (0.20-1.00) 10*3/uL Eosinophils # 0.08 (0.04-0.35) 10*3/uL Basophils # 0.04 (0.00-0.10) 10*3/uL PT 12.7 H (10.0-12.5) sec INR 1.2 H (<1.2) APTT 27.4 (22.0-30.0) sec Sodium (137-145) mmol/L Potassium (3.5-5.1) mmol/L Chloride (98-107) mmol/L Carbon Dioxide (22-30) mmol/L Anion Gap mmol/L BUN (7-17) mg/dL Creatinine (0.52-1.04) mg/dL Est GFR (CKD-EPI)AfAm (>60 ml/min/1.73 sqM) Est GFR (CKD-EPI)NonAf (>60 ml/min/1.73 sqM) Glucose (74-99) mg/dL Calcium (8.4-10.2) mg/dL Total Bilirubin (0.2-1.3) mg/dL AST (14-36) U/L ALT (4-34) U/L Alkaline Phosphatase (38-126) U/L Troponin I (0.000-0.034) ng/mL Total Protein (6.3-8.2) g/dL Albumin (3.5-5.0) g/dL Urine Color Yellow Urine Appearance Turbid H (Clear) Urine pH 5.5 (5.0-8.0) Ur Specific [place] 1.023 (1.001-1.035) Urine Protein Trace H (Negative) Urine Glucose (UA) 4+ H (Negative) Urine Ketones 1+ H (Negative) Urine Blood Moderate H (Negative) Urine Nitrite Negative (Negative) Urine Bilirubin Negative (Negative) Urine Urobilinogen <2.0 (<2.0) mg/dL Ur Leukocyte Esterase Large H (Negative) Urine RBC >182 H (0-5) /hpf Urine WBC >182 H (0-5) /hpf Urine WBC Clumps Many H (None) /hpf Urine Mucus Rare H (None) /hpf Urine Yeast (Budding) Many H (None) /hpf Serum Alcohol mg/dL 06/26/24 06/26/24 Range/Units 22:13 22:13 WBC (4.50-10.00) 10*3/uL RBC (4.10-5.20) 10*6/uL Hgb (12.0-15.0) g/dL Hct (37.2-46.3) % MCV (80.0-97.0) fL MCH (27.0-32.0) pg MCHC (32.0-37.0) g/dL Plt Count (140-440) 10*3/uL MPV (9.5-12.2) fL Immature Gran % (Auto) % Neutrophils % % Lymphocytes % % Monocytes % % Eosinophils % % Basophils % % Immature Gran # (0.00-0.04) 10*3/uL Neutrophils # (1.80-7.70) 10*3/uL Lymphocytes # (0.90-5.00) 10*3/uL Monocytes # (0.20-1.00) 10*3/uL Eosinophils # (0.04-0.35) 10*3/uL Basophils # (0.00-0.10) 10*3/uL PT (10.0-12.5) sec INR (<1.2) APTT (22.0-30.0) sec Sodium 136 L (137-145) mmol/L Potassium 4.7 (3.5-5.1) mmol/L Chloride 104 (98-107) mmol/L Carbon Dioxide 21 L (22-30) mmol/L Anion Gap 11 mmol/L BUN 13 (7-17) mg/dL Creatinine 0.56 (0.52-1.04) mg/dL Est GFR (CKD-EPI)AfAm >90 (>60 ml/min/1.73 sqM) Est GFR (CKD-EPI)NonAf 87 (>60 ml/min/1.73 sqM) Glucose 115 H (74-99) mg/dL Calcium 9.6 (8.4-10.2) mg/dL Total Bilirubin 0.9 (0.2-1.3) mg/dL AST 24 (14-36) U/L ALT 10 (4-34) U/L Alkaline Phosphatase 100 (38-126) U/L Troponin I 0.017 (0.000-0.034) ng/mL Total Protein 6.8 (6.3-8.2) g/dL Albumin 3.4 L (3.5-5.0) g/dL Urine Color Urine Appearance (Clear) Urine pH (5.0-8.0) Ur Specific [place] (1.001-1.035) Urine Protein (Negative) Urine Glucose (UA) (Negative) Urine Ketones (Negative) Urine Blood (Negative) Urine Nitrite (Negative) Urine Bilirubin (Negative) Urine Urobilinogen (<2.0) mg/dL Ur Leukocyte Esterase (Negative) Urine RBC (0-5) /hpf Urine WBC (0-5) /hpf Urine WBC Clumps (None) /hpf Urine Mucus (None) /hpf Urine Yeast (Budding) (None) /hpf Serum Alcohol <10 mg/dL - Radiology Data Radiology results: report reviewed, image reviewed Disposition Clinical Impression: UTI due to extended-spectrum beta lactamase (ESBL) producing Escherichia coli, Atrial fibrillation with RVR, Noncompliance with medication regimen Disposition: ADMITTED IP TO THIS HOSP
[2024-06-26] MEDS: HALOPERIDOL LACTATE 5 MG/ML 1 ML VIAL IM STA (20:24)
[2024-06-26 20:58] LABS: Appearance,Urine Turbid (Clear); Bilirubin,Urine Negative (Negative); Blood,Urine Moderate (Negative); Budding Yeast,Urine Many /hpf; Color,Urine Yellow; Glucose,Urine (UA) 4+ (Negative); Ketones,Urine 1+ (Negative); Leukocyte Esterase,Urine Large (Negative); Mucus,Urine Rare /hpf; Nitrite,Urine Negative (Negative); PH, Urine 5.5 (5.0-8.0); Protein,Urine Trace (Negative); RBC,Urine >182 /hpf (0-5); Specific Gravity,Urine 1.023 (1.001-1.035); Urobilinogen,Urine <2.0 mg/dL (<2.0); WBC,Urine >182 /hpf (0-5)
[2024-06-26] MEDS: SODIUM CHLORIDE 0.9% 1,000 ML IV ONE (22:40)
[2024-06-26] MEDS: CIPROFLOXACIN/DEXTROSE PMX 400 MG in DEXTROSE/WATER 1 200ML.BAG IVPB SCH (22:41)
[2024-06-26 22:44] LABS: Basophils # (A) 0.04 10*3/uL (0.00-0.10); Basophils % (A) 0.6 %; Eosinophils # (A) 0.08 10*3/uL (0.04-0.35); Eosinophils % (A) 1.1 %; HCT 45.4 % (37.2-46.3); HGB 15.1 g/dL (12.0-15.0); Lymphocytes # (A) 1.58 10*3/uL (0.90-5.00); MCH 30.4 pg (27.0-32.0); MCHC 33.3 g/dL (32.0-37.0); MCV 91.3 fL (80.0-97.0); Mean Platelet Volume 9.3 fL (9.5-12.2); Monocytes # (A) 0.43 10*3/uL (0.20-1.00); Neutrophils # (A) 5.02 10*3/uL (1.80-7.70); Platelet Count 209 10*3/uL (140-440); RBC 4.97 10*6/uL (4.10-5.20); RDW 15.2 % (11.5-14.5); WBC 7.17 10*3/uL (4.50-10.00)
[2024-06-26 22:50] LABS: INR 1.2 (<1.2); Partial Thromboplastin Time 27.4 sec (22.0-30.0); Prothrombin Time 12.7 sec (10.0-12.5)
[2024-06-26] MEDS ORDERED: NALOXONE 0.4 MG/ML 1 ML VIAL IV PRN (23:02)
[2024-06-26] MEDS ORDERED: ONDANSETRON 4 MG/2 ML VIAL IVP PRN (23:02)
[2024-06-26] MEDS ORDERED: LORazepam 2 MG/ML INJ IV PRN (23:03)
[2024-06-26] MEDS ORDERED: OLANZapine 10 MG VIAL IM PRN (23:10)
[2024-06-26] MEDS: oxyCODONE-APAP 10-325MG 1 EACH TAB PO STA (23:11)
[2024-06-26 23:16] LABS: ALT 10 U/L (4-34); AST 24 U/L (14-36); African American GFR (CKD) >90 (>60 ml/min/1.73 sqM); Albumin 3.4 g/dL (3.5-5.0); Alcohol <10 mg/dL; Alkaline Phosphatase 100 U/L (38-126); Anion Gap 11 mmol/L; Blood Urea Nitrogen 13 mg/dL (7-17); Calcium 9.6 mg/dL (8.4-10.2); Carbon Dioxide 21 mmol/L (22-30); Chloride 104 mmol/L (98-107); Glucose 115 mg/dL (74-99); Non-African American GFR(CKD) 87 (>60 ml/min/1.73 sqM); Potassium 4.7 mmol/L (3.5-5.1); Sodium 136 mmol/L (137-145); Total Bilirubin 0.9 mg/dL (0.2-1.3); Total Protein 6.8 g/dL (6.3-8.2)
[2024-06-26] MEDS: DILTIAZEM 5 MG/ML 5 ML VIAL IVP STA (23:21)
[2024-06-26] MEDS: DILTIAZEM 125 MG in DEXTROSE 5% IN WATER 100 ML IV SCH (23:22)
--- NOTE | 2024-06-26 23:57 | XR ---
EXAMINATION TYPE: XR chest 1V portable DATE OF EXAM: 06/26/2024 11:50 PM COMPARISON: Chest radiographs from 06/07/2024 CLINICAL INDICATION: Female, 83 years old with history of altered mental status; [facility] TECHNIQUE: XR chest 1V portable Frontal view of the chest. FINDINGS: Lungs/Pleura: There is no evidence of pleural effusion, focal consolidation, or pneumothorax. Pulmonary vascularity: Pulmonary vascular congestion. Heart/mediastinum: Cardiomediastinal silhouette is enlarged. Musculoskeletal: No acute osseous pathology. Other findings: None IMPRESSION: Cardiomegaly and mild pulmonary vascular congestion. Correlate with BNP for congestive heart failure. [facility], , 06/26/2024 11:54 PM
[2024-06-27] MEDS: SODIUM CHLORIDE 0.9% 1,000 ML IV SCH (00:18)
[2024-06-27] MEDS: HYDROcodone/APAP 5-325MG 1 EACH TAB PO PRN (03:23)
[2024-06-27] MEDS: PANTOPRAZOLE 40 MG/10 ML VIAL IV SCH (08:42)
[2024-06-27] MEDS: METOPROLOL TARTRATE 25 MG TAB PO SCH (08:42)
[2024-06-27] MEDS ORDERED: DOCUSATE 100 MG CAP PO PRN (09:39)
[2024-06-27] MEDS ORDERED: DEXTROSE 50% SYRINGE 50 ML IVP PRN ×2 (09:41)
--- NOTE | 2024-06-27 11:14 | P.CRDCN ---
History of Present Illness History of present illness: HISTORY OF PRESENT ILLNESS: This is a 83-year-old with a past medical history significant for coronary artery disease, permanent atrial fibrillation, cardiomyopathy, hypertension, hyperlipidemia, congestive heart failure, and obesity. Patient follows in the office with Dr. George. We have been asked to see the patient in consultation for A-fib with RVR. Patient examined at the bedside in the ER by Dr. Kitchen. Patient initially presented to the hospital with altered mental status. Patient was found to have UTI. Additionally she was found to be in A-fib with RVR. She was started on IV Cardizem. Her rates are controlled this morning. She denies any chest pain or pressure. She denies any shortness of breath. DIAGNOSTICS: - EKG reveals A-fib with RVR. - Chest xray cardiomegaly mild pulmonary vascular congestion - Laboratory data: WBC 7.17. Hemoglobin 15.1. Platelet count 209. Sodium 136. Potassium 4.7. BUN 13. Creatinine 0.56. proBNP 3040. - Current home cardiac medication list has not been updated at the time of examination - Most recent echocardiogram obtained in November 2022 revealing ejection fraction 50 to 55%, moderate MR, mild TR, moderate AI - Cardiac catheterization history: 2018 revealing mild disease of RCA and intermediate disease of the left circumflex and normal LAD with mild disease of the left main REVIEW OF SYSTEMS: At the time of my exam: CONSTITUTIONAL: Denies fever or chills. HEENT: Denies blurred vision, vision changes, or eye pain. Denies hemoptysis CARDIOVASCULAR: Denies chest pain. Denies orthopnea. Denies PND. Denies palpitations RESPIRATORY: Denies shortness of breath. GASTROINTESTINAL: Denies abdominal pain. Denies nausea or vomiting. HEMATOLOGIC: Denies bleeding disorders. GENITOURINARY: Denies any blood in urine. SKIN: Denies pruitis. Denies rash. PHYSICAL EXAM: VITAL SIGNS: Reviewed. GENERAL: Well-developed in no acute distress. HEENT: Head is normocephalic. Pupils are equal, round. Sclerae anicteric. Mucous membranes of the mouth are moist. Neck supple. No JVD or thyromegaly LUNGS: Respirations even and unlabored. Lungs essentially clear to auscultation bilaterally. HEART: Irregular rate and rhythm. S1 and S2 heard. Systolic murmur noted ABDOMEN: Soft. Nondistended. Nontender. EXTREMITIES: Normal range of motion. No clubbing or cyanosis. Peripheral pulses intact. No lower extremity edema NEUROLOGIC: Awake and alert. ASSESSMENT: Altered mental status Urinary tract infection Permanent atrial fibrillation with RVR, currently rate controlled Mild nonobstructive CAD History of nonischemic cardiomyopathy with recovered EF, most recently 50 to 55% Valvular heart disease including moderate MR, mild TR and moderate AI Hypertension Hyperlipidemia Chronic congestive heart failure with preserved EF, currently euvolemic Obesity: BMI 36.0 PLAN: Obtain 2D echo to assess cardiac structure and function Discontinue IV Cardizem Add metoprolol tartrate 25 mg twice a day Resume anticoagulation with Eliquis 5 mg twice a day Continue telemetry monitoring Further recommendations pending patient course Nurse practitioner note has been reviewed by physician. Signing provider agrees with the documented findings, assessment, and plan of care documented by FLAT KNITTER as a scribe. Past Medical History Past Medical History: Atrial Fibrillation, Coronary Artery Disease (CAD), Cancer, Diabetes Mellitus, Hyperlipidemia, Hypertension, Musculoskeletal Disorder, Neurologic Disorder, Osteoarthritis (OA), Pneumonia, Renal Disease, Rheumatoid Arthritis (RA), Skin Disorder, Thyroid Disorder Additional Past Medical History / Comment(s): Morbid obesity, chronic atrial fibrillation, diabetes mellitus type 2, hypertension, hyperlipidemia, spinal s tenosis, osteoarthritis, hypothyroidism, hypertension, history of skin melanoma, history of bursitis with MRSA post I&D, rheumatoid arthritis, Sjogren's disease, 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 without any indication of ILD related to RA, Fall on July 22 transfer to [facility] for MRI, then Fall on 11/16/21 History of Any Multi-Drug Resistant Organisms: ESBL, MRSA Date of last positivie culture/infection: 06/07/24-ESBL; 09/02/22-MRSA MDRO Source:: ESBL-urine; MRSA-Rt Leg Past Surgical History: Back Surgery, Breast Surgery, Cholecystectomy, Heart Catheterization, Joint Replacement, Orthopedic Surgery Additional Past Surgical History / Comment(s): Bilateral cataracts with lens implants, arthroscopies to lt wrist, gualberto knees, gualberto ankles, gualberto hips, lt hip replacment and redone, L/R shoulder sxs, rt breast bx-benign, egd/colonoscopy, skin cancer removal L arm, Lumbar fixnation possible broken Past Anesthesia/Blood Transfusion Reactions: No Reported Reaction Additional Past Anesthesia/Blood Transfusion Reaction / Comment(s): Pt has been told not to have anesthesia metabolized by the kidneys and has neurologic Sjogren's with post anesthesia paralysis. Past Psychological History: No Psychological Hx Reported Smoking Status: Former smoker Past Alcohol Use History: None Reported Past Drug Use History: None Reported - Past Family History Mother Family Medical History: CVA/TIA Additional Family Medical History / Comment(s): RUPTURED BOWEL Father Family Medical History: Cancer, Pneumonia Additional Family Medical History / Comment(s): ASPIRATIVE PNA Sister(s) Additional Family Medical History / Comment(s): at age 34 with lupus Medications and Allergies Home Medications Medication Instructions Recorded Confirmed Type Latanoprost [Xalatan 0.005%] 1 drop BOTH EYES HS@199908/11/17 06/12/24 History Calcium Citrate/Vitamin D3 1 tab PO DAILY@0800 11/16/21 06/12/24 History [Citracal + D Maximum Caplet] Digoxin [Lanoxin] 125 mcg PO Q48H 11/16/21 06/12/24 History Nitroglycerin Sl Tabs [Nitrostat] 0.4 mg SL Q5M PRN 11/16/21 06/12/24 History Adalimumab [Humira(Cf) Pen] 40 mg SQ Q14D 01/09/22 06/12/24 History Apixaban [Eliquis] 5 mg PO BID@799,199905/02/22 06/12/24 History INSULIN LISPRO (HumaLOG) [humaLOG] 5 units SQ TID-W/MEALS@,,05/02/22 06/12/24 History INSULIN LISPRO (HumaLOG) [humaLOG] See Protocol SQ 05/02/22 06/12/24 History TID-W/MEALS@,, traZODone HCL [Desyrel] 50 mg PO HS@199912/15/22 06/12/24 History Tolterodine ER [Detrol LA] 4 mg PO DAILY@0805/15/23 06/12/24 History metFORMIN HCL [Glucophage] 1,000 mg PO BID@799,199905/25/23 06/12/24 History Acetaminophen Tab [Tylenol] 500 mg PO QID@02,08,14,20 11/23/23 06/12/24 History Loratadine [Claritin] 10 mg PO DAILY@79911/23/23 06/12/24 History Magnesium Oxide [Mag-Ox] 250 mg PO DAILY@79911/23/23 06/12/24 History Potassium Chloride ER [K-Dur 20] 20 meq PO BID@799,199911/23/23 06/12/24 History SILVER sulfADIAZINE Cream 1 applic TOPICAL DAILY@79901/05/24 06/12/24 History [Silvadene 1% Cream] methocarbamoL [Robaxin-750] 750 mg PO QID@,,,01/05/24 06/12/24 History Magnesium Hydroxide [Milk of 2,400 mg PO DAILY PRN ml 01/10/24 06/12/24 Rx Magnesia] Albuterol Nebulized [Ventolin 2.5 mg INHALATION RT-Q6H PRN 02/14/24 06/12/24 History Nebulized] Bumetanide [BUMEX] 1 mg PO DAILY@79902/14/24 06/12/24 History Docusate [Colace] 100 mg PO BID PRN 02/14/24 06/12/24 History Empagliflozin [Jardiance] 10 mg PO DAILY@79902/14/24 06/12/24 History Insulin Glargine,Hum.rec.anlog 20 units SQ BID@799,199902/14/24 06/12/24 History [Lantus Solostar Pen] Lidocaine 4% Patch 1 patch TOPICAL HS@199902/14/24 06/12/24 History Multivitamins, Thera [Multivitamin 1 tab PO DAILY@79902/14/24 06/12/24 History (formulary)] Sennosides [Senokot] 17.2 mg PO HS PRN 02/14/24 06/12/24 History Gabapentin 600 mg PO TID@,,05/31/24 06/12/24 History Gentamicin 0.1% Cream 1 applic TOPICAL DAILY 05/31/24 06/12/24 History Levothyroxine Sodium [Synthroid] 200 mcg PO DAILY@79905/31/24 06/12/24 History oxyCODONE-APAP 10-325MG [Percocet 1 tab PO QID@,,14,20 06/07/24 06/12/24 History 10-325 mg] Allergies Allergy/AdvReac Type Severity Reaction Status Date / Time adhesive Allergy Rash/Hives Verified 06/26/24 18:33 cephalexin [From Keflex] Allergy Rash/Hives Verified 06/26/24 18:33 grass pollen Allergy Unknown Verified 06/26/24 18:33 mold Allergy Unknown Verified 06/26/24 18:33 newspaper ink Allergy Mild Unknown Uncoded 06/26/24 18:33 Physical Exam Vitals: Vital Signs Temp Pulse Pulse Resp BP BP Pulse Ox 06/27/24 07:30 67 17 135/67 97 06/27/24 04:00 98.4 F 69 15 148/84 97 06/27/24 00:02 91 18 132/94 95 06/26/24 18:23 142 H 18 96 Intake and Output 06/26/24 06/27/24 06/27/24 22:59 06:59 14:59 Intake Total 750 Balance 750 Intake: IV 750 Sodium Chloride 0.9% 1, 750 000 ml @ 75 mls/hr IV . [id number] [facility] Rx#:[id number] Other: # Voids 4 Weight 104.326 kg Results 06/26/24 22:13 06/26/24 22:13 Cardiac Enzymes 06/26/24 06/26/24 Range/Units 22:13 22:13 AST 24 (14-36) U/L Troponin I 0.017 (0.000-0.034) ng/mL Coagulation 06/26/24 Range/Units 22:13 PT 12.7 H (10.0-12.5) sec APTT 27.4 (22.0-30.0) sec CBC 06/26/24 Range/Units 22:13 WBC 7.17 (4.50-10.00) 10*3/uL RBC 4.97 (4.10-5.20) 10*6/uL Hgb 15.1 H (12.0-15.0) g/dL Hct 45.4 (37.2-46.3) % Plt Count 209 (140-440) 10*3/uL Comprehensive Metabolic Panel 06/26/24 Range/Units 22:13 Sodium 136 L (137-145) mmol/L Potassium 4.7 (3.5-5.1) mmol/L Chloride 104 (98-107) mmol/L Carbon Dioxide 21 L (22-30) mmol/L BUN 13 (7-17) mg/dL Creatinine 0.56 (0.52-1.04) mg/dL Glucose 115 H (74-99) mg/dL Calcium 9.6 (8.4-10.2) mg/dL AST 24 (14-36) U/L ALT 10 (4-34) U/L Alkaline Phosphatase 100 (38-126) U/L Total Protein 6.8 (6.3-8.2) g/dL Albumin 3.4 L (3.5-5.0) g/dL Current Medications Generic Name Dose Route Start Last Admin Trade Name Freq PRN Reason Stop Dose Admin Acetaminophen 650 mg 06/26/24 23:02 Acetaminophen Tab 325 Mg Tab PO Q6HR PRN Mild Pain or Fever > 100.5 Hydrocodone Bitart/Acetaminophen 1 each 06/26/24 23:02 06/27/24 03:23 Hydrocodone/Apap 5-325mg 1 Each Tab PO 1 each Q4HR PRN Administration Moderate Pain (Scale 4 to 6) Dextrose/Water 25 ml 06/27/24 09:41 Dextrose 50% Syringe 50 Ml IVP PER PROTOCOL PRN Hypoglycemia Protocol Dextrose/Water 50 ml 06/27/24 09:41 Dextrose 50% Syringe 50 Ml IVP PER PROTOCOL PRN Hypoglycemia Protocol Docusate Sodium 100 mg 06/27/24 09:39 Docusate 100 Mg Cap PO BID PRN Constipation Gabapentin 600 mg 06/27/24 14:00 Gabapentin 300 Mg Cap PO TID@08,14,20 A[facility]OSH Ciprofloxacin/Dextrose 400 mg/ 200 mls @ 200 mls/hr 06/26/24 22:15 06/27/24 09:52 IV Solution IVPB 200 mls/hr BID ASHUTOSH Administration Protocol Diltiazem HCl 125 mg/ Dextrose 125 mls @ 5 mls/hr 06/26/24 23:00 06/26/24 23:22 /Water IV 5 mg/hr .Q24H ASHUTOSH 5 mls/hr Administration Protocol 5 MG/HR Sodium Chloride 1,000 mls @ 75 mls/hr 06/26/24 23:15 06/27/24 00:18 Saline 0.9% IV 75 mls/hr .[id number] A[facility]OSH Administration Insulin Human Lispro 0 unit 06/27/24 12:30 Insulin Lispro (Humalog) 100 Unit/Ml 10 Ml Vl SQ ACHS [facility] Protocol Levothyroxine Sodium 200 mcg 06/28/24 06:30 Levothyroxine 100 Mcg Tab PO DAILY@0630 A[facility]OS[facility] Lorazepam 1 mg 06/26/24 23:03 Lorazepam 2 Mg/Ml Inj IV Q6H PRN Agitation Metoprolol Tartrate 25 mg 06/27/24 09:00 06/27/24 08:42 Metoprolol Tartrate 25 Mg Tab PO 25 mg BID ASHUTOSH Administration Morphine Sulfate 4 mg 06/26/24 23:02 Morphine Sulfate 4 Mg/Ml Syringe IV Q4HR PRN Severe Pain (Scale 7 to 10) Naloxone HCl 0.2 mg 06/26/24 23:02 Naloxone 0.4 Mg/Ml 1 Ml Vial IV Q2M PRN Opioid Reversal Olanzapine 5 mg 06/26/24 23:10 Olanzapine 10 Mg Vial IM Q6H PRN Agitation Ondansetron HCl 4 mg 06/26/24 23:02 Ondansetron 4 Mg/2 Ml Vial IVP Q8HR PRN Nausea And Vomiting Pantoprazole Sodium 40 mg 06/27/24 09:00 06/27/24 08:42 Pantoprazole 40 Mg/10 Ml Vial IV 40 mg DAILY ASHUTOSH Administration Intake and Output 06/26/24 06/27/24 06/27/24 22:59 06:59 14:59 Intake Total 750 Balance 750 Intake: IV 750 Sodium Chloride 0.9% 1, 750 000 ml @ 75 mls/hr IV . [id number] [facility] Rx#:[id number] Other: # Voids 4 Weight 104.326 kg 06/26/24 22:13 06/26/24 22:13
[2024-06-27] MEDS: MORPHINE SULFATE 4 MG/ML SYRINGE IV PRN (11:42)
[2024-06-27] MEDS: INSULIN LISPRO (HumaLOG) 100 UNIT/ML 10 mL VL SQ SCH (11:46)
[2024-06-27 11:55] LABS: Glucose,Whole Blood 115 mg/dL (70-110)
[2024-06-27] MEDS ORDERED: GABAPENTIN 300 MG CAP PO SCH (14:00)
[2024-06-27] MEDS: ERTAPENEM 1 GM in SODIUM CHLORIDE 0.9% 50 ML IVPB SCH (14:14)
--- NOTE | 2024-06-27 14:36 | P.CN ---
Psychiatric Consult - . Consult date: 06/27/24 Consult:: 06/27/24 13:20 IDENTIFYING DATA: This patient is a 83-year-old female, she has a public guardian she lives in a house she is she has 2 kids REASON FOR REFERRAL: Psychiatry was consulted for suicidal ideations, aggressi on/agitation HISTORY OF PRESENT ILLNESS: The patient presented to the hospital initially on 06/26 for altered mental status, failure to thrive. Apparently patient has been refusing medications has been hallucinating and aggressive. Patient apparently made a suicidal threat on admission to the hospital. Patient did have a urine analysis which was positive for UTI. Being treated for atrial fibrillation. Patient was seen at the bedside today, appeared to be somewhat irritable with show card writer, questioning and challenging quite a bit during the interview. She knew her name age she knew the location. She did not know today's date believes that was the "24th" did not know the month but did know the year being 2024. She was a fairly poor historian, was not able to relay the situation at home as to why she came to the hospital. Claims that "I was not feeling well" and states that her caregiver told her to call the police. She began being more frustrated with show card writer when he attempted to ask more questions about her circumstances. Patient denied any issues with her mood, denied any anxiety. Denied being aggressive with anybody or also denied any making any suicidal statements. She adamantly denied any suicidal or homicidal ideations intent or plan. Patient denies any auditory, visual hallucinations. Patient did endorse a bit of paranoia towards others and questioning about her medications and also writers purpose. Patients admits to using no recreational drugs or cigarettes. Claims that she is sleeping about 8 hours eating fairly. PAST PSYCHIATRIC HISTORY: Patient has a a history of dementia. Patient is currently on trazodone 50 mg nightly. Patient denies any previous psychiatric hospitalizations. Patient denies any psychiatric outpatient follow-up. Patient denies any history of suicide attempts in the past. Past Medical History: Atrial Fibrillation, Coronary Artery Disease (CAD), Cancer, Diabetes Mellitus, Hyperlipidemia, Hypertension, Musculoskeletal Disorder, Neurologic Disorder, Osteoarthritis (OA), Pneumonia, Renal Disease, Rheumatoid Arthritis (RA), Skin Disorder, Thyroid Disorder Additional Past Medical History / Comment(s): Morbid obesity, chronic atrial fibrillation, diabetes mellitus type 2, hypertension, hyperlipidemia, spinal stenosis, osteoarthritis, hypothyroidism, hypertension, history of skin melanoma, history of bursitis with MRSA post I&D, rheumatoid arthritis, Sjogren's disease, 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 without any indication of ILD related to RA, Fall on July 22 transfer to [facility] for MRI, then Fall on 11/16/21 History of Any Multi-Drug Resistant Organisms: ESBL, MRSA Date of last positivie culture/infection: 06/07/24-ESBL; 09/02/22-MRSA MDRO Source:: ESBL-urine; MRSA-Rt Leg Past Surgical History: Back Surgery, Breast Surgery, Cholecystectomy, Heart Ca theterization, Joint Replacement, Orthopedic Surgery Additional Past Surgical History / Comment(s): Bilateral cataracts with lens implants, arthroscopies to lt wrist, gualberto knees, gualberto ankles, gualberto hips, lt hip replacment and redone, L/R shoulder sxs, rt breast bx-benign, egd/colonoscopy, skin cancer removal L arm, Lumbar fixnation possible broken Past Anesthesia/Blood Transfusion Reactions: No Reported Reaction Additional Past Anesthesia/Blood Transfusion Reaction / Comment(s): Pt has been told not to have anesthesia metabolized by the kidneys and has neurologic Sjogren's with post anesthesia paralysis. Past Psychological History: No Psychological Hx Reported Smoking Status: Former smoker Past Alcohol Use History: None Reported Past Drug Use History: None Reported ALLERGIES: as per EMR. CHEMICAL DEPENDENCY HISTORY: as per HPI. FAMILY PSYCHIATRIC/SUBSTANCE USE HISTORY: Denies SOCIAL HISTORY: Patient was born and raised in [place]. Claims that she completed high school bachelors and also masters level of education. 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 She currently has a public guardian she lives in a house, she is a she has 2 kids. Denies any legal history. MENTAL STATUS EXAM: General Appearance: Patient appears to be tall, long vinson hair, stated age is alert, irritable, challenging at times. Patient appears to have fair hygiene and grooming wearing hospital gown with fair eye contact. Behavior: Patient is irritable at times argumentative and mildly paranoid. Speech: Patient's speech is fluent and nonpressured. Irritable tone Mood/Affect: Patient reports their mood is "ok", affect is congruent and constricted, irritable Suicidality/Homicidality: Patient denies having any suicidal or homicidal ideation intent or plan. Perceptions: Patient denies any visual hallucinations and denies any auditory hallucinations Though content/process: Patient is focused on obtaining the nurse for help. She has fairly poor insight. Endorsing some paranoia Memory and concentration: AOX3, grossly intact for the purposes of this session. Can spell "WORLD" backwards Judgment and insight: Chronically poor/limited IMPRESSIONS: Delirium, likely etiology infection/uti Dementia with behavioral disturbance PLAN: -At this time patient DOES NOT meet criteria for inpatient psychiatric admission. -Patient DOES NOT have decision making capacity at this time and is unable to reason through and communicate/appreciate the risks, benefits and alternatives to treatment. -Delirium precautions recommended with patient including - avoiding use of narcotics and SCALDER sedatives, limit anticholinergic medications when possible, frequent re-orientation, minimize use of restraints, open window shades during the day and close them at night -Would recommend the following medication changes/additions: Discontinued benzodiazepines. These will increase patient's confusion and delirium. Seroquel 25 mg dose now, scheduled dose of 25 mg nightly for mood stabilization/psychosis/sleep. Zyprexa as needed both IM and p.o. for severe agitation -bunker worker to provide patient with outpatient mental health/psychiatry resources for appropriate follow up upon discharge -APS on board apparently for suspcion of neglect by [facility]. Patient has gaurdians. patient will likely need new placement once she improves medically and psychiatrically. -Communicated plan to patient's nurse -Psychiatry will sign off at this time unless patients condition worsens then please reconsult. -Please contact with any questions. 06/27/24 14:29
[2024-06-27] MEDS: QUEtiapine 25 MG TAB PO STA (15:40)
[2024-06-27 17:13] LABS: Glucose,Whole Blood 115 mg/dL (70-110)
[2024-06-27] MEDS: OLANZapine 2.5 MG TAB PO PRN (18:01)
[2024-06-27] MEDS ORDERED: SENNOSIDES 8.6 MG TAB PO PRN (18:23)
[2024-06-27] MEDS: APIXABAN 5 MG TAB PO SCH (21:35)
[2024-06-27] MEDS: POTASSIUM CHLORIDE ER 20 MEQ TAB.ER PO SCH (21:36)
[2024-06-27] MEDS: QUEtiapine 25 MG TAB PO SCH (21:37)
--- NOTE | 2024-06-27 21:38 | P.CONS ---
History of Present Illness - Reason for Consult Consult date: 06/27/24 ESBL E. coli UTI Requesting physician: Delia Donohue - Chief Complaint Mental status changes x few days - History of Present Illness Patient is a 83-year-old female with a past medical history significant for Atrial Fibrillation, Coronary Artery Disease (CAD), Cancer, Diabetes Mellitus, Hyperlipidemia, Hypertension, Musculoskeletal Disorder, Neurologic Disorder, Osteoarthritis (OA), Pneumonia, Renal Disease, Rheumatoid Arthritis (RA), Skin Disorder, Thyroid Disorder, patient has been brought to the hospital for evaluation of mental status changes and failure to thrive in this patient apparently seem to be getting worse over the last few months patient refused to take her medication has been hallucinating and more aggressive for which the home care nurse advised patient to be sent to the ER for evaluation patient on presentation to the hospital was afebrile and no fever have been called subsequently patient was not tachycardic hypotensive or hypoxic she did have white count 7.17 creatinine 0.56 electrolytes are normal liver enzymes are normal patient did have a positive UA with large leukocyte esterase more than 182 WBC, and the last urine culture positive for ESBL E. coli on 06/07/2024 for the patient was started on ciprofloxacin infectious disease was consulted for further management of antibiotic therapy patient did have a chest x-ray that was reported cardiomegaly with pulmonary vascular congestion, patient is awake but not a very good historian and did not provide reliable history to help with the diagnosis and treatment Review of Systems Positive point and negatives has been mentioned in the HPI, complete review of systems was performed and all other systems are negative Past Medical History Past Medical History: Atrial Fibrillation, Coronary Artery Disease (CAD), Cancer, Diabetes Mellitus, Hyperlipidemia, Hypertension, Musculoskeletal Disorder, Neurologic Disorder, Osteoarthritis (OA), Pneumonia, Renal Disease, Rheumatoid Arthritis (RA), Skin Disorder, Thyroid Disorder Additional Past Medical History / Comment(s): Morbid obesity, chronic atrial fibrillation, diabetes mellitus type 2, hypertension, hyperlipidemia, spinal citlali nosis, osteoarthritis, hypothyroidism, hypertension, history of skin melanoma, history of bursitis with MRSA post I&D, rheumatoid arthritis, Sjogren's disease, 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 without any indication of ILD related to RA, Fall on July 22 transfer to [facility] for MRI, then Fall on 11/16/21 History of Any Multi-Drug Resistant Organisms: ESBL, MRSA Year Discovered:: 06/07/24-ESBL; 09/02/22-MRSA MDRO Source:: ESBL-urine; MRSA-Rt Leg Past Surgical History: Back Surgery, Breast Surgery, Cholecystectomy, Heart Catheterization, Joint Replacement, Orthopedic Surgery Additional Past Surgical History / Comment(s): Bilateral cataracts with lens implants, arthroscopies to lt wrist, gualberto knees, gualberto ankles, gualberto hips, lt hip replacment and redone, L/R shoulder sxs, rt breast bx-benign, egd/colonoscopy, skin cancer removal L arm, Lumbar fixnation possible broken Past Anesthesia/Blood Transfusion Reactions: No Reported Reaction Additional Past Anesthesia/Blood Transfusion Reaction / Comm: Pt has been told not to have anesthesia metabolized by the kidneys and has neurologic Sjogren's with post anesthesia paralysis. Past Psychological History: No Psychological Hx Reported Smoking Status: Former smoker Past Alcohol Use History: None Reported Past Drug Use History: None Reported - Past Family History Mother Family Medical History: CVA/TIA Additional Family Medical History / Comment(s): RUPTURED BOWEL Father Family Medical History: Cancer, Pneumonia Additional Family Medical History / Comment(s): ASPIRATIVE PNA Sister(s) Additional Family Medical History / Comment(s): at age 34 with lupus Medications and Allergies Home Medications Medication Instructions Recorded Confirmed Type Latanoprost [Xalatan 0.005%] 1 drop BOTH EYES HS@199908/11/17 06/27/24 History Calcium Citrate/Vitamin D3 1 tab PO DAILY@0800 11/16/21 06/27/24 History [Citracal + D Maximum Caplet] Digoxin [Lanoxin] 125 mcg PO Q48H 11/16/21 06/27/24 History Nitroglycerin Sl Tabs [Nitrostat] 0.4 mg SL Q5M PRN 11/16/21 06/27/24 History Adalimumab [Humira(Cf) Pen] 40 mg SQ Q14D 01/09/22 06/27/24 History Apixaban [Eliquis] 5 mg PO BID@08,199905/02/22 06/27/24 History Tolterodine ER [Detrol LA] 4 mg PO DAILY@0800 05/15/23 06/27/24 History metFORMIN HCL [Glucophage] 1,000 mg PO BID@799,199905/25/23 06/27/24 History Acetaminophen Tab [Tylenol] 500 mg PO QID@,,,11/23/23 06/27/24 History Loratadine [Claritin] 10 mg PO DAILY@79911/23/23 06/27/24 History Magnesium Oxide [Mag-Ox] 250 mg PO DAILY@79911/23/23 06/27/24 History Potassium Chloride ER [K-Dur 20] 20 meq PO BID@799,199911/23/23 06/27/24 History SILVER sulfADIAZINE Cream 1 applic TOPICAL DAILY@79901/05/24 06/27/24 History [Silvadene 1% Cream] methocarbamoL [Robaxin-750] 750 mg PO QID@,,,01/05/24 06/27/24 History Magnesium Hydroxide [Milk of 2,400 mg PO DAILY PRN ml 01/10/24 06/27/24 Rx Magnesia] Albuterol Nebulized [Ventolin 2.5 mg INHALATION RT-Q6H PRN 02/14/24 06/27/24 History Nebulized] Bumetanide [BUMEX] 1 mg PO DAILY@79902/14/24 06/27/24 History Docusate [Colace] 100 mg PO BID PRN 02/14/24 06/27/24 History Empagliflozin [Jardiance] 10 mg PO DAILY@79902/14/24 06/27/24 History Insulin Glargine,Hum.rec.anlog 20 units SQ HS 02/14/24 06/27/24 History [Lantus Solostar Pen] Multivitamins, Thera [Multivitamin 1 tab PO DAILY@79902/14/24 06/27/24 History (formulary)] Sennosides [Senokot] 17.2 mg PO HS PRN 02/14/24 06/27/24 History Gabapentin 600 mg PO TID@,,05/31/24 06/27/24 History Gentamicin 0.1% Cream 1 applic TOPICAL DAILY 05/31/24 06/27/24 History Levothyroxine Sodium [Synthroid] 200 mcg PO DAILY@79905/31/24 06/27/24 History oxyCODONE-APAP 10-325MG [Percocet 1 tab PO QID@,,,20 06/07/24 06/27/24 History 10-325 mg] Insulin Lispro [humaLOG Kwikpen] 5 unit SQ TID-W/MEALS 06/27/24 06/27/24 History Insulin Lispro [humaLOG Kwikpen] See Protocol SQ TID-W/MEALS 06/27/24 06/27/24 History Nystatin 100,000 Unit/gm Powd 1 applic TOPICAL TID 06/27/24 06/27/24 History [Mycostatin Powder] traZODone HCL [Desyrel] 100 mg PO HS 06/27/24 06/27/24 History Allergies Allergy/AdvReac Type Severity Reaction Status Date / Time adhesive Allergy Rash/Hives Verified 06/27/24 11:23 cephalexin [From Keflex] Allergy Rash/Hives Verified 06/27/24 11:23 grass pollen Allergy Unknown Verified 06/27/24 11:23 mold Allergy Unknown Verified 06/27/24 11:23 newspaper ink Allergy Mild Unknown Uncoded 06/27/24 11:23 Physical Exam Vitals: Vital Signs Temp Pulse Pulse Resp BP BP Pulse Ox 06/27/24 07:30 67 17 135/67 97 06/27/24 04:00 98.4 F 69 15 148/84 97 06/27/24 00:02 91 18 132/94 95 06/26/24 18:23 142 H 18 96 Intake and Output 06/26/24 06/27/24 06/27/24 22:59 06:59 14:59 Intake Total 750 Balance 750 Intake: IV 750 Sodium Chloride 0.9% 1, 750 000 ml @ 75 mls/hr IV . [id number] [facility] Rx#:[id number] Other: # Voids 4 Weight 104.326 kg GENERAL DESCRIPTION: Elderly female lying in bed, no distress. No tachypnea or accessory muscle of respiration use. HEENT: Shows Pallor , no scleral icterus. Oral mucous membrane is dry. NECK: Trachea central, no thyromegaly. LUNGS: Unlabored breathing. Clear to auscultation anteriorly. HEART: S1, S2, regular rate and rhythm. No loud murmur ABDOMEN: Soft, no tenderness EXTREMITIES: Swelling to the leg but no redness SKIN: No rash, no masses palpable. NEUROLOGICAL: The patient is awake, , mood and affect normal. Results CBC & Chem 7: 04/30/25 22:13 06/26/24 22:13 Labs: Abnormal Lab Results - Last 24 Hours (Table) 06/26/24 06/26/24 06/26/24 Range/Units 20:33 22:13 22:13 Hgb 15.1 H (12.0-15.0) g/dL MPV 9.3 L (9.5-12.2) fL PT 12.7 H (10.0-12.5) sec INR 1.2 H (<1.2) Sodium (137-145) mmol/L Carbon Dioxide (22-30) mmol/L Glucose (74-99) mg/dL Albumin (3.5-5.0) g/dL Urine Appearance Turbid H (Clear) Urine Protein Trace H (Negative) Urine Glucose (UA) 4+ H (Negative) Urine Ketones 1+ H (Negative) Urine Blood Moderate H (Negative) Ur Leukocyte Esterase Large H (Negative) Urine RBC >182 H (0-5) /hpf Urine WBC >182 H (0-5) /hpf Urine WBC Clumps Many H (None) /hpf Urine Mucus Rare H (None) /hpf Urine Yeast (Budding) Many H (None) /hpf 06/26/24 Range/Units 22:13 Hgb (12.0-15.0) g/dL MPV (9.5-12.2) fL PT (10.0-12.5) sec INR (<1.2) Sodium 136 L (137-145) mmol/L Carbon Dioxide 21 L (22-30) mmol/L Glucose 115 H (74-99) mg/dL Albumin 3.4 L (3.5-5.0) g/dL Urine Appearance (Clear) Urine Protein (Negative) Urine Glucose (UA) (Negative) Urine Ketones (Negative) Urine Blood (Negative) Ur Leukocyte Esterase (Negative) Urine RBC (0-5) /hpf Urine WBC (0-5) /hpf Urine WBC Clumps (None) /hpf Urine Mucus (None) /hpf Urine Yeast (Budding) (None) /hpf Assessment and Plan (1) UTI due to extended-spectrum beta lactamase (ESBL) producing Escherichia coli Current Visit: Yes Status: Acute Code(s): N39.0 - URINARY TRACT INFECTION, SITE NOT SPECIFIED; B96.29 - OTH ESCHERICHIA COLI THE CAUSE OF DISEASES CLASSD ELSWHR; Z16.12 - EXTENDED SPECTRUM BETA LACTAMASE (ESBL) RESISTANCE SNOMED Code(s): 920908125 (2) Allergy to cephalosporin Current Visit: No Status: Acute Code(s): Z88.1 - ALLERGY STATUS TO OTHER ANTIBIOTIC AGENTS SNOMED Code(s): 179207722 Plan: 1patient presented to hospital with mental status changes hallucination failure to thrive in this patient noted to have significantly positive UA with a recent urine culture positive for ESBL E. coli however it is very hard to get any history from this patient as far as urinary symptoms and did not have any elevated white count 2-patient did have a cephalexin allergy that would limit the number of antibiotics safe to use 3-discontinue ciprofloxacin 4-will start the patient on Invanz while waiting for the culture to finalize and see clinical response We will follow on clinical condition and cultures to further adjust medication if needed Thank you for this consultation we will follow the patient along with you Dictation was produced using [employer] dictation software. please excuse any grammatical, word or spelling errors. Time with Patient: Greater than 30
[2024-06-27] MEDS: LATANOPROST 0.005% OPHTH DROPS 2.5 ML BTL BOTH EYES SCH (22:28)
[2024-06-27 22:33] LABS: Glucose,Whole Blood 148 mg/dL (70-110)
[2024-06-28] MEDS: LEVOTHYROXINE 100 MCG TAB PO SCH (05:23)
[2024-06-28] MEDS: ACETAMINOPHEN TAB 325 MG TAB PO PRN (05:23)
[2024-06-28 06:30] LABS: Glucose,Whole Blood 133 mg/dL (70-110)
[2024-06-28 06:50] LABS: Basophils # (A) 0.03 10*3/uL (0.00-0.10); Basophils % (A) 0.5 %; Eosinophils # (A) 0.15 10*3/uL (0.04-0.35); Eosinophils % (A) 2.3 %; HGB 14.5 g/dL (12.0-15.0); Lymphocytes # (A) 2.05 10*3/uL (0.90-5.00); Lymphocytes % (A) 31.4 %; MCH 29.4 pg (27.0-32.0); MCHC 32.2 g/dL (32.0-37.0); MCV 91.1 fL (80.0-97.0); Mean Platelet Volume 9.4 fL (9.5-12.2); Monocytes # (A) 0.56 10*3/uL (0.20-1.00); Monocytes % (A) 8.6 %; Neutrophils # (A) 3.71 10*3/uL (1.80-7.70); Neutrophils % (A) 56.9 %; Platelet Count 202 10*3/uL (140-440); RBC 4.94 10*6/uL (4.10-5.20); RDW 15.1 % (11.5-14.5); WBC 6.52 10*3/uL (4.50-10.00)
[2024-06-28 07:11] LABS: African American GFR (CKD) >90 (>60 ml/min/1.73 sqM); Anion Gap 11 mmol/L; Blood Urea Nitrogen 13 mg/dL (7-17); Calcium 9.2 mg/dL (8.4-10.2); Carbon Dioxide 22 mmol/L (22-30); Chloride 104 mmol/L (98-107); Glucose 140 mg/dL (74-99); Non-African American GFR(CKD) 88 (>60 ml/min/1.73 sqM); Potassium 4.3 mmol/L (3.5-5.1); Sodium 137 mmol/L (137-145)
[2024-06-28] MEDS ORDERED: LORATADINE 10 MG TAB PO SCH (08:00)
[2024-06-28] MEDS: MULTIVITAMINS, THERA 1 EACH TAB PO SCH (08:26)
[2024-06-28] MEDS: BUMETANIDE 1 MG TAB PO SCH (08:27)
[2024-06-28] MEDS: METOPROLOL TARTRATE 25 MG TAB PO STA (08:36)
--- NOTE | 2024-06-28 10:31 | P.PN ---
Subjective Progress Note Date: 06/28/24 Principal diagnosis: Reason for follow-up is ESBL E. coli UTI Patient is a 83-year-old female with a past medical history significant for Atrial Fibrillation, Coronary Artery Disease (CAD), Cancer, Diabetes Mellitus, Hyperlipidemia, Hypertension, Musculoskeletal Disorder, Neurologic Disorder, Osteoarthritis (OA), Pneumonia, Renal Disease, Rheumatoid Arthritis (RA), Skin Disorder, Thyroid Disorder, patient has been brought to the hospital for evaluation of mental status changes and failure to thrive she did have a positive UA concerning for UTI with recent urine culture positive for ESBL prompted this consultation On today's evaluation that is 06/28/2024, Patient is afebrile patient is currently on room air and denies having any shortness of breath, the patient denies any chest pain or cough, the patient denies any nausea vomiting did not have any abdominal pain and no diarrhea mention feeling better today. Patient white count 6.52, creatinine 0.54 blood and urine cultures currently pending Objective - Vital Signs Vital signs: Vital Signs Temp 97.8 F 06/28/24 08:00 Pulse 111 H 06/28/24 08:00 Resp 18 06/28/24 08:00 BP 146/59 06/28/24 08:00 Pulse Ox 97 06/28/24 08:00 FiO2 Intake & Output 06/27/24 06/28/24 06/28/24 18:59 06:59 18:59 Intake Total 236 Balance 236 Weight 104.326 kg Intake: Oral 236 Other: Voiding Method Diaper Diaper Incontinent Incontinent # Voids 2 1 - Exam GENERAL DESCRIPTION: An elderly female lying in bed in no distress RESPIRATORY SYSTEM: Unlabored breathing , decreased breath sounds at bases HEART: S1 S2 regular rate and rhythm , ABDOMEN: Soft , no tenderness EXTREMITIES: No edema feet - Labs CBC & Chem 7: 06/28/24 05:42 06/28/24 05:42 Labs: Abnormal Lab Results - Last 24 Hours (Table) 06/27/24 06/27/24 06/27/24 Range/Units 11:44 17:12 22:31 MPV (9.5-12.2) fL Glucose (74-99) mg/dL POC Glucose (mg/dL) 115 H 115 H 148 H (70-110) mg/dL 05/02/25 05/02/25 05/02/25 Range/Units 05:42 05:42 06:28 MPV 9.4 L (9.5-12.2) fL Glucose 140 H (74-99) mg/dL POC Glucose (mg/dL) 133 H (70-110) mg/dL Microbiology - Last 24 Hours (Table) 06/26/24 22:25 Blood Culture - Preliminary Blood Assessment and Plan (1) UTI due to extended-spectrum beta lactamase (ESBL) producing Escherichia coli Current Visit: Yes Status: Acute Code(s): N39.0 - URINARY TRACT INFECTION, SITE NOT SPECIFIED; B96.29 - OTH ESCHERICHIA COLI THE CAUSE OF DISEASES CLASSD ELSWHR; Z16.12 - EXTENDED SPECTRUM BETA LACTAMASE (ESBL) RESISTANCE SNOMED Code(s): 545569547 (2) Allergy to cephalosporin Current Visit: No Status: Acute Code(s): Z88.1 - ALLERGY STATUS TO OTHER ANTIBIOTIC AGENTS SNOMED Code(s): 418198842 Plan: 1patient presented to hospital with mental status changes hallucination failure to thrive in this patient noted to have significantly positive UA with a recent urine culture positive for ESBL E. coli however it is very hard to get any history from this patient as far as urinary symptoms and did not have any elevated white count 2-patient did have a cephalexin allergy that would limit the number of antibiotics safe to use 3-d patient mention improvement in her symptoms to continue Invanz while waiting for the culture to finalize and monitor clinical course closely Dictation was produced using [employer] dictation software. please excuse any grammatical, word or spelling errors. Time with Patient: Less than 30
--- NOTE | 2024-06-28 10:53 | P.PN ---
Subjective HISTORY OF PRESENT ILLNESS: This is a 83-year-old with a past medical history significant for coronary artery disease, permanent atrial fibrillation, cardiomyopathy, hypertension, hyperlipidemia, congestive heart failure, and obesity. Patient follows in the office with Dr. George. We have been asked to see the patient in consultation for A-fib with RVR. Patient examined at the bedside in the ER by Dr. Kitchen. Patient initially presented to the hospital with altered mental status. Patient was found to have UTI. Additionally she was found to be in A-fib with RVR. She was started on IV Cardizem. Her rates are controlled this morning. She denies any chest pain or pressure. She denies any shortness of breath. DIAGNOSTICS: - EKG reveals A-fib with RVR. - Chest xray cardiomegaly mild pulmonary vascular congestion - Laboratory data: WBC 7.17. Hemoglobin 15.1. Platelet count 209. Sodium 136. Potassium 4.7. BUN 13. Creatinine 0.56. proBNP 3040. - Current home cardiac medication list has not been updated at the time of examination - Most recent echocardiogram obtained in November 2022 revealing ejection fraction 50 to 55%, moderate MR, mild TR, moderate AI - Cardiac catheterization history: 2018 revealing mild disease of RCA and intermediate disease of the left circumflex and normal LAD with mild disease of the left main 06/28/2024 Patient examined this morning at the bedside. Patient currently denies chest pain or pressure. She denies shortness of breath. Telemetry reveals atrial fibrillation with heart rate around 110. 2D echo has been ordered. Results are pending. PHYSICAL EXAM: VITAL SIGNS: Reviewed. GENERAL: Well-developed in no acute distress. HEENT: Head is normocephalic. Pupils are equal, round. Sclerae anicteric. Mucous membranes of the mouth are moist. Neck supple. No JVD or thyromegaly LUNGS: Respirations even and unlabored. Lungs essentially clear to auscultation bilaterally. HEART: Irregular rate and rhythm. S1 and S2 heard. Systolic murmur noted ABDOMEN: Soft. Nondistended. Nontender. EXTREMITIES: Normal range of motion. No clubbing or cyanosis. Peripheral pulses intact. No lower extremity edema NEUROLOGIC: Awake and alert. ASSESSMENT: Altered mental status Urinary tract infection Permanent atrial fibrillation with RVR, currently rate controlled Mild nonobstructive CAD History of nonischemic cardiomyopathy with recovered EF, most recently 50 to 55% Valvular heart disease including moderate MR, mild TR and moderate AI Hypertension Hyperlipidemia Chronic congestive heart failure with preserved EF, currently euvolemic Obesity: BMI 36.0 PLAN: Continue anticoagulation with Eliquis Increase metoprolol to tartrate to 50 mg twice a day 2D echo ordered. Await results. Continue telemetry monitoring Further recommendations pending patient course Nurse practitioner note has been reviewed by physician. Signing provider agrees with the documented findings, assessment, and plan of care documented by [employer]MIN[employer] as a scribe. Objective - Vital Signs Vital signs: Vital Signs Temp 97.8 F 06/28/24 08:00 Pulse 111 H 06/28/24 08:00 Resp 18 06/28/24 08:00 BP 146/59 06/28/24 08:00 Pulse Ox 97 06/28/24 08:00 FiO2 Intake & Output 06/27/24 06/28/24 06/28/24 18:59 06:59 18:59 Intake Total 236 Balance 236 Weight 104.326 kg Intake: Oral 236 Other: Voiding Method Diaper Diaper Incontinent Incontinent # Voids 2 1 - Labs CBC & Chem 7: 06/28/24 05:42 06/28/24 05:42 Labs: Abnormal Lab Results - Last 24 Hours (Table) 06/27/24 06/27/24 06/27/24 Range/Units 11:44 17:12 22:31 MPV (9.5-12.2) fL Glucose (74-99) mg/dL POC Glucose (mg/dL) 115 H 115 H 148 H (70-110) mg/dL 06/28/24 06/28/24 06/28/24 Range/Units 05:42 05:42 06:28 MPV 9.4 L (9.5-12.2) fL Glucose 140 H (74-99) mg/dL POC Glucose (mg/dL) 133 H (70-110) mg/dL Microbiology - Last 24 Hours (Table) 06/26/24 22:25 Blood Culture - Preliminary Blood
[2024-06-28 11:11] LABS: Glucose,Whole Blood 200 mg/dL (70-110)
--- NOTE | 2024-06-28 11:42 | P.HPIM ---
History of Present Illness H&P Date: 06/27/24 History of present illness; Patient is a 83-year-old female chronic A-fib, history of ESBL MRSA last on 06/07/2024, CAD, diabetes, hyperlipidemia, hypertension, neurological Sjogren's and dementia, who has public guardian who presents for altered mental status and generalized pain pain. Patient states she came in emergency room because she had "pain everywhere", and seems generally confused about her visit and would like to go home. Alsom apparently while in ED she had suicidal ideation, which she is denying at this time. She is not complaining of any other symptoms at this time. She is denying chest pain, palpitations, diaphoresis, dyspnea, cough, suprapelvic pain, dysuria. Spoke with the ER physician, patient admission was accepted by internal medicine service for treatment. REVIEW OF SYSTEMS: Pertinent positives and negatives noted in HPI. PHYSICAL EXAMINATION: Vitals reviewed GENERAL: Resting comfortably in bed. Obese. EYES: PERRL, no scleral injection or icterus. No vision loss HENT: Normocephalic, atraumatic, hearing grossly intact, moist mucous membranes NECK: No tracheal deviation, full range of motion. CARDIOVASCULAR: S1 and S2 present. No murmurs, rubs, or gallops. PULMONARY: Chest is clear to auscultation, no wheezing, rhonchi, or crackles. ABDOMEN: Soft, nontender, nondistended. No palpable organomegaly. MUSCULOSKELETAL: No apparent joint swelling and deformities. EXTREMITIES: No apparent cyanosis, clubbing. No pedal edema. NEUROLOGICAL: Alert and oriented x3. Gross neurological examination with no apparent focal deficits. SKIN: No apparent rashes. ER FINDINGS: Labs significant for hemoglobin 15.1, sodium 136, bicarb 21, glucose 115, UA significant for turbid appearance, trace protein, 4+ glucose, 1+ ketones, moderate blood, large leukocyte esterase, significantly elevated RBC and WBC with WBC clumps, with yeast. Alcohol and digoxin negative. EKG independently interpreted showed A-fib with RVR, rate 123, no ST segment elevation or depression seen, no T-wave inversions seen. Chest x-ray done independently interpreted showed cardiomegaly with mild pulmonary vascular congestion Assessment and Plan: #Metabolic encephalopathy, likely due to delirium from UTI vs medication adverse effects from polypharmacy #UTI #History of ESBL MRSA last on 06/07/2024 Begin ertapenem 1 g daily Begin Zyprexa, Seroquel nightly Will avoid DIRECTOR TRADING sedatives and narcotics PT OT consulted Psychiatry consulted, note reviewed ID consulted #Chronic A-fib, currently rate controlled #History of nonischemic cardiomyopathy with recovered EF, most recently 50 to 55% Continue Eliquis 5 mg twice daily, Lopressor 25 mg twice daily - CXR with cardiomegaly with mild pulmonary vascular congestion - Resume home bumex and potassium chloride Echocardiogram ordered Continuous cardiac monitoring Cardiology consulted #Diabetes mellitus type 2 Begin low-dose sliding scale insulin Monitor for hypoglycemia Chronic Medical Conditions #A-fib, history of ESBL MRSA last on 06/07/2024, CAD, diabetes, hyperlipidemia, hypertension, neurological Sjogren's and dementia -resume home medications DVT ppx: Eliquis 5 mg twice daily Code status: Full code F: PO E: Replete as needed N: Heart healthy diet Anticipated discharge place: [facility] notified for potential neglect by landlord. Anticipating placement needs. Patient has guardian Anticipated discharge time: Pending clinical course Dr. Agudelo seen patient with resident, present during exam, and agreed with findings. Dictation was produced using [employer] dictation software. Please excuse any grammatical, word or spelling errors. Past Medical History Past Medical History: Atrial Fibrillation, Coronary Artery Disease (CAD), Cancer, Diabetes Mellitus, Hyperlipidemia, Hypertension, Musculoskeletal Disorder, Neurologic Disorder, Osteoarthritis (OA), Pneumonia, Renal Disease, R heumatoid Arthritis (RA), Skin Disorder, Thyroid Disorder Additional Past Medical History / Comment(s): Morbid obesity, chronic atrial fibrillation, diabetes mellitus type 2, hypertension, hyperlipidemia, spinal stenosis, osteoarthritis, hypothyroidism, hypertension, history of skin melanoma, history of bursitis with MRSA post I&D, rheumatoid arthritis, Sjogren's disease, 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 without any indication of ILD related to RA, Fall on July 22 transfer to [facility] for MRI, then Fall on 11/16/21 History of Any Multi-Drug Resistant Organisms: ESBL, MRSA Date of last positivie culture/infection: 06/07/24-ESBL; 09/02/22-MRSA MDRO Source:: ESBL-urine; MRSA-Rt Leg Past Surgical History: Back Surgery, Breast Surgery, Cholecystectomy, Heart Catheterization, Joint Replacement, Orthopedic Surgery Additional Past Surgical History / Comment(s): Bilateral cataracts with lens implants, arthroscopies to lt wrist, gualberto knees, gualberto ankles, gualberto hips, lt hip replacment and redone, L/R shoulder sxs, rt breast bx-benign, egd/colonoscopy, skin cancer removal L arm, Lumbar fixnation possible broken Past Anesthesia/Blood Transfusion Reactions: No Reported Reaction Additional Past Anesthesia/Blood Transfusion Reaction / Comment(s): Pt has been told not to have anesthesia metabolized by the kidneys and has neurologic Sjogren's with post anesthesia paralysis. Past Psychological History: No Psychological Hx Reported Smoking Status: Former smoker Past Alcohol Use History: None Reported Past Drug Use History: None Reported - Past Family History Mother Family Medical History: CVA/TIA Additional Family Medical History / Comment(s): RUPTURED BOWEL Father Family Medical History: Cancer, Pneumonia Additional Family Medical History / Comment(s): ASPIRATIVE PNA Sister(s) Additional Family Medical History / Comment(s): at age 34 with lupus Medications and Allergies Home Medications Medication Instructions Recorded Confirmed Type Latanoprost [Xalatan 0.005%] 1 drop BOTH EYES HS@199908/11/17 06/27/24 History Calcium Citrate/Vitamin D3 1 tab PO DAILY@0800 11/16/21 06/27/24 History [Citracal + D Maximum Caplet] Digoxin [Lanoxin] 125 mcg PO Q48H 11/16/21 06/27/24 History Nitroglycerin Sl Tabs [Nitrostat] 0.4 mg SL Q5M PRN 11/16/21 06/27/24 History Adalimumab [Humira(Cf) Pen] 40 mg SQ Q14D 01/09/22 06/27/24 History Apixaban [Eliquis] 5 mg PO BID@799,199905/02/22 06/27/24 History Tolterodine ER [Detrol LA] 4 mg PO DAILY@79905/15/23 06/27/24 History metFORMIN HCL [Glucophage] 1,000 mg PO BID@08,199905/25/23 06/27/24 History Acetaminophen Tab [Tylenol] 500 mg PO QID@02,08,14,20 11/23/23 06/27/24 History Loratadine [Claritin] 10 mg PO DAILY@79911/23/23 06/27/24 History Magnesium Oxide [Mag-Ox] 250 mg PO DAILY@79911/23/23 06/27/24 History Potassium Chloride ER [K-Dur 20] 20 meq PO BID@799,199911/23/23 06/27/24 History SILVER sulfADIAZINE Cream 1 applic TOPICAL DAILY@79901/05/24 06/27/24 History [Silvadene 1% Cream] methocarbamoL [Robaxin-750] 750 mg PO QID@,,,01/05/24 06/27/24 History Magnesium Hydroxide [Milk of 2,400 mg PO DAILY PRN ml 01/10/24 06/27/24 Rx Magnesia] Albuterol Nebulized [Ventolin 2.5 mg INHALATION RT-Q6H PRN 02/14/24 06/27/24 History Nebulized] Bumetanide [BUMEX] 1 mg PO DAILY@79902/14/24 06/27/24 History Docusate [Colace] 100 mg PO BID PRN 02/14/24 06/27/24 History Empagliflozin [Jardiance] 10 mg PO DAILY@79902/14/24 06/27/24 History Insulin Glargine,Hum.rec.anlog 20 units SQ HS 02/14/24 06/27/24 History [Lantus Solostar Pen] Multivitamins, Thera [Multivitamin 1 tab PO DAILY@79902/14/24 06/27/24 History (formulary)] Sennosides [Senokot] 17.2 mg PO HS PRN 02/14/24 06/27/24 History Gabapentin 600 mg PO TID@,,05/31/24 06/27/24 History Gentamicin 0.1% Cream 1 applic TOPICAL DAILY 05/31/24 06/27/24 History Levothyroxine Sodium [Synthroid] 200 mcg PO DAILY@79905/31/24 06/27/24 History oxyCODONE-APAP 10-325MG [Percocet 1 tab PO QID@02,,,06/07/24 06/27/24 History 10-325 mg] Insulin Lispro [humaLOG Kwikpen] 5 unit SQ TID-W/MEALS 06/27/24 06/27/24 History Insulin Lispro [humaLOG Kwikpen] See Protocol SQ TID-W/MEALS 06/27/24 06/27/24 History Nystatin 100,000 Unit/gm Powd 1 applic TOPICAL TID 06/27/24 06/27/24 History [Mycostatin Powder] traZODone HCL [Desyrel] 100 mg PO HS 06/27/24 06/27/24 History Allergies Allergy/AdvReac Type Severity Reaction Status Date / Time adhesive Allergy Rash/Hives Verified 06/27/24 11:23 cephalexin [From Keflex] Allergy Rash/Hives Verified 06/27/24 11:23 grass pollen Allergy Unknown Verified 06/27/24 11:23 mold Allergy Unknown Verified 06/27/24 11:23 newspaper ink Allergy Mild Unknown Uncoded 06/27/24 11:23 Physical Exam Vitals: Vital Signs Temp Pulse Pulse Resp BP BP Pulse Ox 06/27/24 07:30 67 17 135/67 97 06/27/24 04:00 98.4 F 69 15 148/84 97 06/27/24 00:02 91 18 132/94 95 06/26/24 18:23 142 H 18 96 Intake and Output 06/26/24 06/27/24 06/27/24 22:59 06:59 14:59 Intake Total 750 Balance 750 Intake: IV 750 Sodium Chloride 0.9% 1, 750 000 ml @ 75 mls/hr IV . [id number] Rx#:[id number] Other: # Voids 4 Weight 104.326 kg Results CBC & Chem 7: 06/28/24 05:42 06/28/24 05:42 Labs: Abnormal Lab Results - Last 24 Hours (Table) 06/26/24 06/26/24 06/26/24 Range/Units 20:33 22:13 22:13 Hgb 15.1 H (12.0-15.0) g/dL MPV 9.3 L (9.5-12.2) fL PT 12.7 H (10.0-12.5) sec INR 1.2 H (<1.2) Sodium (137-145) mmol/L Carbon Dioxide (22-30) mmol/L Glucose (74-99) mg/dL Albumin (3.5-5.0) g/dL Urine Appearance Turbid H (Clear) Urine Protein Trace H (Negative) Urine Glucose (UA) 4+ H (Negative) Urine Ketones 1+ H (Negative) Urine Blood Moderate H (Negative) Ur Leukocyte Esterase Large H (Negative) Urine RBC >182 H (0-5) /hpf Urine WBC >182 H (0-5) /hpf Urine WBC Clumps Many H (None) /hpf Urine Mucus Rare H (None) /hpf Urine Yeast (Budding) Many H (None) /hpf 06/26/24 Range/Units 22:13 Hgb (12.0-15.0) g/dL MPV (9.5-12.2) fL PT (10.0-12.5) sec INR (<1.2) Sodium 136 L (137-145) mmol/L Carbon Dioxide 21 L (22-30) mmol/L Glucose 115 H (74-99) mg/dL Albumin 3.4 L (3.5-5.0) g/dL Urine Appearance (Clear) Urine Protein (Negative) Urine Glucose (UA) (Negative) Urine Ketones (Negative) Urine Blood (Negative) Ur Leukocyte Esterase (Negative) Urine RBC (0-5) /hpf Urine WBC (0-5) /hpf Urine WBC Clumps (None) /hpf Urine Mucus (None) /hpf Urine Yeast (Budding) (None) /hpf
--- NOTE | 2024-06-28 15:35 | P.PN ---
Subjective Progress Note Date: 06/28/24 History of present illness; Patient is a 83-year-old female chronic A-fib, history of ESBL MRSA last on 05/28, CAD, diabetes, hyperlipidemia, hypertension, neurological Sjogren's and dementia, who has public guardian who presents for altered mental status and generalized pain pain. Patient states she came in emergency room because she had "pain everywhere", and seems generally confused about her visit and would like to go home. Alsom apparently while in ED she had suicidal ideation, which she is denying at this time. She is not complaining of any other symptoms at this time. She is denying chest pain, palpitations, diaphoresis, dyspnea, cough, suprapelvic pain, dysuria. 06/28/24. Patient seen and examined at bedside. No acute events overnight. Patient with no complaints. Echocardiogram is pending. Today's labs WBC 6.5, sodium 137, potassium 4.3, glucose 140. REVIEW OF SYSTEMS: Pertinent positives and negatives noted in HPI. PHYSICAL EXAMINATION: Vitals reviewed GENERAL: Resting comfortably in bed. Obese. NECK: No tracheal deviation, full range of motion. CARDIOVASCULAR: S1 and S2 present. No murmurs, rubs, or gallops. PULMONARY: Chest is clear to auscultation, no wheezing, rhonchi, or crackles. ABDOMEN: Soft, nontender, nondistended. No palpable organomegaly. MUSCULOSKELETAL: No apparent joint swelling and deformities. EXTREMITIES: No apparent cyanosis, clubbing. No pedal edema. NEUROLOGICAL: Alert and oriented x3. Gross neurological examination with no appa rent focal deficits. SKIN: No apparent rashes. Assessment and Plan: #Metabolic encephalopathy, likely due to delirium from UTI vs medication adverse effects from polypharmacy #UTI #History of ESBL MRSA last on 06/07/2024 Begin Ertapenem 1 g daily Begin Zyprexa, Seroquel nightly Will avoid CORPORATE TRAVEL MANAGER sedatives and narcotics Urine culture gram-negative bacilli thus far PT OT consulted Psychiatry consulted, note reviewed ID consulted #Chronic A-fib, currently rate controlled #History of nonischemic cardiomyopathy with recovered EF, most recently 50 to 55% Continue Eliquis 5 mg twice daily, Lopressor 50 mg twice daily - CXR with cardiomegaly with mild pulmonary vascular congestion - Resume home bumex and potassium chloride Echocardiogram ordered Continuous cardiac monitoring Cardiology consulted #Diabetes mellitus type 2 Begin low-dose sliding scale insulin Monitor for hypoglycemia Chronic Medical Conditions #A-fib, history of ESBL MRSA last on 06/07/2024, CAD, diabetes, hyperlipidemia, hypertension, neurological Sjogren's and dementia -resume home medications DVT ppx: Eliquis 5 mg twice daily Code status: Full code F: PO E: Replete as needed N: Heart healthy diet Anticipated discharge place: [facility] Anticipated discharge time: 2-[address] Agudelo seen patient with resident, present during exam, and agreed with findings. Dictation was produced using [employer] dictation software. Please excuse any grammatical, word or spelling errors. Objective - Vital Signs Vital signs: Vital Signs Temp 97.8 F 06/28/24 08:00 Pulse 64 06/28/24 05:08 Resp 18 06/28/24 08:00 BP 146/59 06/28/24 08:00 Pulse Ox 97 06/28/24 08:00 FiO2 Intake & Output 06/27/24 06/28/24 06/28/24 18:59 06:59 18:59 Intake Total 236 Balance 236 Weight 104.326 kg Intake: Oral 236 Other: Voiding Method Diaper Incontinent # Voids 2 1 - Labs CBC & Chem 7: 06/28/24 05:42 06/28/24 05:42 Labs: Abnormal Lab Results - Last 24 Hours (Table) 06/27/24 06/27/24 06/27/24 Range/Units 11:44 17:12 22:31 MPV (9.5-12.2) fL Glucose (74-99) mg/dL POC Glucose (mg/dL) 115 H 115 H 148 H (70-110) mg/dL 06/28/24 06/28/24 06/28/24 Range/Units 05:42 05:42 06:28 MPV 9.4 L (9.5-12.2) fL Glucose 140 H (74-99) mg/dL POC Glucose (mg/dL) 133 H (70-110) mg/dL Microbiology - Last 24 Hours (Table) 06/26/24 22:25 Blood Culture - Preliminary Blood
[2024-06-28 16:10] LABS: Glucose,Whole Blood 190 mg/dL (70-110)
--- NOTE | 2024-06-28 16:21 | CA ---
Transthoracic Echo Report Name: Rosalva Lr Age: 83 Gender: F : 1940 Exam Date: 06/28/2024 09:21 Exam Location: [facility] Ht (in): 67 Wt (lb): 230 Ordering Physician: Main Kitchen MD ([id number]) Attending/Referring Phys: Imtiaz BARCLAY Clinical Program Manager Judith Mesa RDCS Procedure CPT: Indications: afib Cardiac Hx: Technical Quality: Technically difficult study Contrast 1: Definity Total Dose (mL): 2 Contrast 2: Total Dose (mL): MEASUREMENTS (Male / Female) Normal Values 2D ECHO LV Diastolic Diameter PLAX 4.2 cm 4.2 - 5.9 / 3.9 - 5.3 cm LV Systolic Diameter PLAX 3.7 cm IVS Diastolic Thickness 1.5 cm 0.6 - 1.0 / 0.6 - 0.9 cm LVPW Diastolic Thickness 1.3 cm 0.6 - 1.0 / 0.6 - 0.9 cm LV Relative Wall Thickness 0.7 RV Internal Dim ED PLAX 3.2 cm LVOT Diameter 2.2 cm LA Systolic Diameter LX 4.0 cm 3.0 - 4.0 / 2.7 - 3.8 cm M-MODE Aortic Root Diameter MM 3.7 cm AV Cusp Separation MM 1.9 cm DOPPLER AV Peak Velocity 125.6 cm/s AV Peak Gradient 6.3 mmHg MV Peak Velocity 196.5 cm/s MV Peak Gradient 15.4 mmHg MV Mean Velocity 96.3 cm/s MV Mean Gradient 4.8 mmHg MV Velocity Time Integral 43.0 cm MV Area PHT 2.3 cm??? MV Deceleration Time 305.5 ms TR Peak Velocity 383.9 cm/s TR Peak Gradient 59.0 mmHg Right Ventricular Systolic Press 64.0 mmHg FINDINGS Left Ventricle Left ventricular ejection fraction is estimated at 20-25 %. Left ventricular cavity size normal. Moderately increased septal wall thickness. Moderately increased posterior wall thickness. Severely reduced global left ventricular systolic function. Right Ventricle Normal right ventricular size. Severe pulmonary hypertension. Right ventricular systolic pressure estimated at 64 mm hg. Right Atrium Right atrium not well visualized. Left Atrium Mildly increased left atrial diameter. No left atrial thrombus or mass present. Mitral Valve Moderate thickening/calcification of the anterior mitral valve leaflet. Moderate thickening/calcification of the posterior mitral valve leaflet. Moderate mitral annular calcification. Moderate MV stenosis with mean gradient od 5 mmhg Aortic Valve Trileaflet aortic valve. Thickened aortic valve without stenosis. Tricuspid Valve Structurally normal tricuspid valve. Mild tricuspid regurgitation. Pulmonic Valve Structurally normal pulmonic valve. Mild pulmonic regurgitation. Pericardium No pericardial effusion. Aorta Normal size aortic root and proximal ascending aorta. CONCLUSIONS Left ventricular ejection fraction 20 to 25% Moderately increased left ventricular wall thickness RVSP 64 Moderate to severe mitral annular calcification Moderate mitral stenosis with mean gradient 5 mmHg at a heart rate of 100 Mild to moderate mitral regurgitation Mild tricuspid regurgitation Previewed by: Dr. Vincent Ellis DO (Electronically Signed) Final Date: 28 Jun 2024 16:20
[2024-06-28 19:52] LABS: Glucose,Whole Blood 175 mg/dL (70-110)
[2024-06-28] MEDS: METOPROLOL TARTRATE 25 MG TAB PO SCH (19:52)
[2024-06-29] MEDS: PANTOPRAZOLE 40 MG TABLET PO SCH (05:34)
[2024-06-29 05:59] LABS: Glucose,Whole Blood 182 mg/dL (70-110)
[2024-06-29 08:03] LABS: Basophils # (A) 0.04 10*3/uL (0.00-0.10); Basophils % (A) 0.6 %; Eosinophils # (A) 0.17 10*3/uL (0.04-0.35); Eosinophils % (A) 2.3 %; HCT 47.1 % (37.2-46.3); HGB 15.5 g/dL (12.0-15.0); Lymphocytes # (A) 1.92 10*3/uL (0.90-5.00); Lymphocytes % (A) 26.4 %; MCH 29.8 pg (27.0-32.0); MCHC 32.9 g/dL (32.0-37.0); MCV 90.6 fL (80.0-97.0); Mean Platelet Volume 9.4 fL (9.5-12.2); Monocytes # (A) 0.58 10*3/uL (0.20-1.00); Neutrophils # (A) 4.54 10*3/uL (1.80-7.70); Neutrophils % (A) 62.4 %; Platelet Count 203 10*3/uL (140-440); RDW 15.1 % (11.5-14.5); WBC 7.27 10*3/uL (4.50-10.00)
[2024-06-29 08:18] LABS: African American GFR (CKD) >90 (>60 ml/min/1.73 sqM); Anion Gap 9 mmol/L; Blood Urea Nitrogen 12 mg/dL (7-17); Calcium 9.4 mg/dL (8.4-10.2); Carbon Dioxide 25 mmol/L (22-30); Chloride 103 mmol/L (98-107); Glucose 186 mg/dL (74-99); Non-African American GFR(CKD) 89 (>60 ml/min/1.73 sqM); Potassium 4.2 mmol/L (3.5-5.1); Sodium 137 mmol/L (137-145)
[2024-06-29 11:35] LABS: Glucose,Whole Blood 186 mg/dL (70-110)
--- NOTE | 2024-06-29 12:25 | P.PN ---
Subjective HISTORY OF PRESENT ILLNESS: This is a 83-year-old with a past medical history significant for coronary artery disease, permanent atrial fibrillation, cardiomyopathy, hypertension, hyperlipidemia, congestive heart failure, and obesity. Patient follows in the office with Dr. George. We have been asked to see the patient in consultation for A-fib with RVR. Patient examined at the bedside in the ER by Dr. Kitchen. Patient initially presented to the hospital with altered mental status. Patient was found to have UTI. Additionally she was found to be in A-fib with RVR. She was started on IV Cardizem. Her rates are controlled this morning. She denies any chest pain or pressure. She denies any shortness of breath. DIAGNOSTICS: - EKG reveals A-fib with RVR. - Chest xray cardiomegaly mild pulmonary vascular congestion - Laboratory data: WBC 7.17. Hemoglobin 15.1. Platelet count 209. Sodium 136. Potassium 4.7. BUN 13. Creatinine 0.56. proBNP 3040. - Current home cardiac medication list has not been updated at the time of examination - Most recent echocardiogram obtained in November 2022 revealing ejection fraction 50 to 55%, moderate MR, mild TR, moderate AI - Cardiac catheterization history: 2018 revealing mild disease of RCA and intermediate disease of the left circumflex and normal LAD with mild disease of the left main 06/28/2024 Patient examined this morning at the bedside. Patient currently denies chest pain or pressure. She denies shortness of breath. Telemetry reveals atrial fibrillation with heart rate around 110. 2D echo has been ordered. Results are pending. 06/29/2024 Patient examined this morning at bedside. Patient currently denies chest pain or pressure. She denies shortness of breath. Telemetry reveals atrial fibrillation with controlled ventricular rate. Echocardiogram performed revealing ejection fraction 20 to 25%, severely reduced global left ventricular systolic function, moderate mitral stenosis, mild to moderate MR, mild TR PHYSICAL EXAM: VITAL SIGNS: Reviewed. GENERAL: Well-developed in no acute distress. HEENT: Head is normocephalic. Pupils are equal, round. Sclerae anicteric. Mucous membranes of the mouth are moist. Neck supple. No JVD or thyromegaly LUNGS: Respirations even and unlabored. Lungs essentially clear to auscultation bilaterally. HEART: Irregular rate and rhythm. S1 and S2 heard. Systolic murmur noted ABDOMEN: Soft. Nondistended. Nontender. EXTREMITIES: Normal range of motion. No clubbing or cyanosis. Peripheral pulses intact. No lower extremity edema NEUROLOGIC: Awake and alert. ASSESSMENT: Altered mental status Urinary tract infection Permanent atrial fibrillation with RVR, currently rate controlled Mild nonobstructive CAD History of nonischemic cardiomyopathy with recovered EF, most recently 50 to 55%, now 20 to 25% Valvular heart disease including moderate MR, mild TR and moderate AI Hypertension Hyperlipidemia Chronic congestive heart failure with preserved EF, currently euvolemic Obesity: BMI 36.0 PLAN: Patient with cardiomyopathy with EF 20 to 25%, previously 50 to 55%. We will continue with medical management at this time and repeat echocardiogram on an outpatient basis. Continue current cardiac medications including Eliquis, Bumex, metoprolol Add losartan 25 mg daily Will hold off on adding Farxiga secondary to UTI with history of ESBL Continue telemetry monitoring Stable for discharge from a cardiac standpoint Further recommendations pending patient course Nurse practitioner note has been reviewed by physician. Signing provider agrees with the documented findings, assessment, and plan of care documented by UNDERGRADUATE INTERN as a scribe. Objective - Vital Signs Vital signs: Vital Signs Temp 97.4 F L 06/28/24 20:00 Pulse 82 06/29/24 08:00 Resp 16 06/29/24 08:00 BP 135/75 06/28/24 11:34 Pulse Ox 96 06/29/24 08:00 FiO2 Intake & Output 06/28/24 06/29/24 06/29/24 18:59 06:59 18:59 Intake Total 356 Balance 356 Weight 98.5 kg Intake: Oral 356 Other: Voiding Method Bedpan Bedpan Bedpan Diaper Diaper Diaper Incontinent Incontinent Incontinent # Voids 1 2 - Labs CBC & Chem 7: 06/29/24 07:12 06/29/24 07:12 Labs: Abnormal Lab Results - Last 24 Hours (Table) 06/28/24 06/28/24 06/29/24 Range/Units 16:09 19:50 05:57 Hgb (12.0-15.0) g/dL Hct (37.2-46.3) % MPV (9.5-12.2) fL Glucose (74-99) mg/dL POC Glucose (mg/dL) 190 H 175 H 182 H (70-110) mg/dL 06/29/24 06/29/24 06/29/24 Range/Units 07:12 07:12 11:34 Hgb 15.5 H (12.0-15.0) g/dL Hct 47.1 H (37.2-46.3) % MPV 9.4 L (9.5-12.2) fL Glucose 186 H (74-99) mg/dL POC Glucose (mg/dL) 186 H (70-110) mg/dL Microbiology - Last 24 Hours (Table) 06/26/24 20:33 Urine Culture - Preliminary Urine,Voided Proteus mirabilis Presumptive Staph aureus 06/26/24 22:25 Blood Culture - Preliminary Blood
[2024-06-29] MEDS: LOSARTAN 25 MG TAB PO SCH (15:36)
--- NOTE | 2024-06-29 15:36 | P.PN ---
Subjective Progress Note Date: 06/29/24 History of present illness; Patient is a 83-year-old female chronic A-fib, history of ESBL MRSA last on 05/28, CAD, diabetes, hyperlipidemia, hypertension, neurological Sjogren's and dementia, who has public guardian who presents for altered mental status and generalized pain pain. Patient states she came in emergency room because she had "pain everywhere", and seems generally confused about her visit and would like to go home. Alsom apparently while in ED she had suicidal ideation, which she is denying at this time. She is not complaining of any other symptoms at this time. She is denying chest pain, palpitations, diaphoresis, dyspnea, cough, suprapelvic pain, dysuria. 06/28/24. Patient seen and examined at bedside. No acute events overnight. Patient with no complaints. Echocardiogram is pending. Today's labs WBC 6.5, sodium 137, potassium 4.3, glucose 140. 06/29/24. Patient seen and examined at bedside. No acute events overnight. Echocardiogram with findings of LVEF 20 to 25%, moderate to severe mitral annular calcification. Urine culture with Proteus Mirabella's presumptive Staph aureus, awaiting blood culture no growth thus far. Today's labs WBC 7.2, hemoglobin 15.5, glucose 186. REVIEW OF SYSTEMS: Pertinent positives and negatives noted in HPI. PHYSICAL EXAMINATION: Vitals reviewed GENERAL: Resting comfortably in bed. Obese. NECK: No tracheal deviation, full range of motion. CARDIOVASCULAR: S1 and S2 present. No murmurs, rubs, or gallops. PULMONARY: Chest is clear to auscultation, no wheezing, rhonchi, or crackles. ABDOMEN: Soft, nontender, nondistended. No palpable organomegaly. MUSCULOSKELETAL: No apparent joint swelling and deformities. EXTREMITIES: No apparent cyanosis, clubbing. No pedal edema. NEUROLOGICAL: Alert and oriented x3. Gross neurological examination with no apparent focal deficits. SKIN: No apparent rashes. 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 sedatives and narcotics Urine culture with Proteus Mirabella's presumptive Staph aureus, PT OT consulted Psychiatry consulted, note reviewed ID consulted #Chronic A-fib, currently rate controlled #History of nonischemic cardiomyopathy with recovered EF, most recently 50 to 55% Continue Eliquis 5 mg twice daily, Lopressor 50 mg twice daily - CXR with cardiomegaly with mild pulmonary vascular congestion - Resume home bumex and potassium chloride Echocardiogram with findings of LVEF 20 to 25% Continuous cardiac monitoring Cardiology consulted #Diabetes mellitus type 2 Begin low-dose sliding scale insulin Monitor for hypoglycemia Chronic Medical Conditions #A-fib, history of ESBL MRSA last on 06/07/2024, CAD, diabetes, hyperlipidemia, hypertension, neurological Sjogren's and dementia -resume home medications DVT ppx: Eliquis 5 mg twice daily Code status: Full code F: PO E: Replete as needed N: Heart healthy diet Anticipated discharge place: [facility] Anticipated discharge time: [address] Agudelo seen patient with resident, present during exam, and agreed with findings. Dictation was produced using [employer] dictation software. Please excuse any grammatical, word or spelling errors. Objective - Vital Signs Vital signs: Vital Signs Temp 97.4 F L 06/28/24 20:00 Pulse 80 06/29/24 08:00 Resp 16 06/29/24 08:00 BP 135/75 06/28/24 11:34 Pulse Ox 96 06/29/24 08:00 FiO2 Intake & Output 06/28/24 06/29/24 06/29/24 18:59 06:59 18:59 Intake Total 356 Balance 356 Weight 98.5 kg Intake: Oral 356 Other: Voiding Method Bedpan Bedpan Diaper Diaper Incontinent Incontinent # Voids 1 2 - Labs CBC & Chem 7: 06/29/24 07:12 06/29/24 07:12 Labs: Abnormal Lab Results - Last 24 Hours (Table) 06/28/24 06/28/24 06/28/24 Range/Units 05:42 11:09 16:09 Hgb (12.0-15.0) g/dL Hct (37.2-46.3) % MPV (9.5-12.2) fL Glucose (74-99) mg/dL POC Glucose (mg/dL) 200 H 190 H (70-110) mg/dL Hemoglobin A1c 6.1 H (<=6.0) % 06/28/24 06/29/24 06/29/24 Range/Units 19:50 05:57 07:12 Hgb 15.5 H (12.0-15.0) g/dL Hct 47.1 H (37.2-46.3) % MPV 9.4 L (9.5-12.2) fL Glucose (74-99) mg/dL POC Glucose (mg/dL) 175 H 182 H (70-110) mg/dL Hemoglobin A1c (<=6.0) % 06/29/24 Range/Units 07:12 Hgb (12.0-15.0) g/dL Hct (37.2-46.3) % MPV (9.5-12.2) fL Glucose 186 H (74-99) mg/dL POC Glucose (mg/dL) (70-110) mg/dL Hemoglobin A1c (<=6.0) % Microbiology - Last 24 Hours (Table) 06/26/24 22:25 Blood Culture - Preliminary Blood 06/26/24 20:33 Urine Culture - Preliminary Urine,Voided Gram Neg Bacilli
[2024-06-29 16:39] LABS: Glucose,Whole Blood 179 mg/dL (70-110)
[2024-06-29 20:06] LABS: Glucose,Whole Blood 168 mg/dL (70-110)
[2024-06-30 06:19] LABS: Glucose,Whole Blood 173 mg/dL (70-110)
--- NOTE | 2024-06-30 10:35 | P.PN ---
Subjective HISTORY OF PRESENT ILLNESS: This is a 83-year-old with a past medical history significant for coronary artery disease, permanent atrial fibrillation, cardiomyopathy, hypertension, hyperlipidemia, congestive heart failure, and obesity. Patient follows in the office with Dr. George. We have been asked to see the patient in consultation for A-fib with RVR. Patient examined at the bedside in the ER by Dr. Kitchen. Patient initially presented to the hospital with altered mental status. Patient was found to have UTI. Additionally she was found to be in A-fib with RVR. She was started on IV Cardizem. Her rates are controlled this morning. She denies any chest pain or pressure. She denies any shortness of breath. DIAGNOSTICS: - EKG reveals A-fib with RVR. - Chest xray cardiomegaly mild pulmonary vascular congestion - Laboratory data: WBC 7.17. Hemoglobin 15.1. Platelet count 209. Sodium 136. Potassium 4.7. BUN 13. Creatinine 0.56. proBNP 3040. - Current home cardiac medication list has not been updated at the time of examination - Most recent echocardiogram obtained in November 2022 revealing ejection fraction 50 to 55%, moderate MR, mild TR, moderate AI - Cardiac catheterization history: 2018 revealing mild disease of RCA and intermediate disease of the left circumflex and normal LAD with mild disease of the left main 06/28/2024 Patient examined this morning at the bedside. Patient currently denies chest pain or pressure. She denies shortness of breath. Telemetry reveals atrial fibrillation with heart rate around 110. 2D echo has been ordered. Results are pending. 06/29/2024 Patient examined this morning at bedside. Patient currently denies chest pain or pressure. She denies shortness of breath. Telemetry reveals atrial fibrillation with controlled ventricular rate. Echocardiogram performed revealing ejection fraction 20 to 25%, severely reduced global left ventricular systolic function, moderate mitral stenosis, mild to moderate MR, mild TR 06/30/2024 Patient examined this morning at bedside. Patient is resting comfortably in bed this morning. Patient currently denies chest pain or pressure. Denies shortness of breath. Blood pressures elevated with a systolic between [id number]. PHYSICAL EXAM: VITAL SIGNS: Reviewed. GENERAL: Well-developed in no acute distress. HEENT: Head is normocephalic. Pupils are equal, round. Sclerae anicteric. Mucous membranes of the mouth are moist. Neck supple. No JVD or thyromegaly LUNGS: Respirations even and unlabored. Lungs essentially clear to auscultation bilaterally. HEART: Irregular rate and rhythm. S1 and S2 heard. Systolic murmur noted ABDOMEN: Soft. Nondistended. Nontender. EXTREMITIES: Normal range of motion. No clubbing or cyanosis. Peripheral pulses intact. No lower extremity edema NEUROLOGIC: Awake and alert. ASSESSMENT: Altered mental status Urinary tract infection Permanent atrial fibrillation with RVR, currently rate controlled Mild nonobstructive CAD History of nonischemic cardiomyopathy with recovered EF, most recently 50 to 55%, now 20 to 25% Valvular heart disease including moderate MR, mild TR and moderate AI Hypertension Hyperlipidemia Chronic congestive heart failure with preserved EF, currently euvolemic Obesity: BMI 36.0 PLAN: Patient with cardiomyopathy with EF 20 to 25%, previously 50 to 55%. We will continue with medical management at this time and repeat echocardiogram on an outpatient basis. Continue current cardiac medications including Eliquis, Bumex, metoprolol Increase losartan to 50 mg daily Will hold off on adding Farxiga secondary to UTI with history of ESBL Continue telemetry monitoring Stable for discharge to [facility] from a cardiac standpoint We will sign off. Please reconsult if needed. Nurse practitioner note has been reviewed by physician. Signing provider agrees with the documented findings, assessment, and plan of care documented by PHOTOGRAPHIC PLATEMAKER as a scribe. Objective - Vital Signs Vital signs: Vital Signs Temp 97.4 F L 06/28/24 20:00 Pulse 70 06/29/24 16:00 Resp 14 06/29/24 16:00 BP 135/75 06/28/24 11:34 Pulse Ox 96 06/29/24 16:00 FiO2 Intake & Output 06/29/24 06/30/24 06/30/24 18:59 06:59 18:59 Intake Total 200 Balance 200 Weight 95.5 kg Intake: Intake, IV Titration 50 Amount Ertapenem 1 gm In Sodium 50 Chloride 0.9% 50 ml @ 100 mls/hr IVPB DAILY [facility] Rx #:[id number] Oral 150 Other: Voiding Method Bedpan Bedpan Diaper Diaper Incontinent Incontinent # Voids 1 - Labs CBC & Chem 7: 06/29/24 07:12 06/29/24 07:12 Labs: Abnormal Lab Results - Last 24 Hours (Table) 06/29/24 06/29/24 06/29/24 Range/Units 11:34 16:38 20:04 POC Glucose (mg/dL) 186 H 179 H 168 H (70-110) mg/dL 06/30/24 Range/Units 06:17 POC Glucose (mg/dL) 173 H (70-110) mg/dL Microbiology - Last 24 Hours (Table) 06/26/24 20:33 Urine Culture - Final Urine,Voided Methicillin resist S. aureus Proteus mirabilis 06/26/24 22:25 Blood Culture - Preliminary Blood
[2024-06-30 11:32] LABS: Glucose,Whole Blood 157 mg/dL (70-110)
--- NOTE | 2024-06-30 12:45 | P.PN ---
Subjective Patient is a 83-year-old female chronic A-fib, history of ESBL MRSA last on 06/07/2024, CAD, diabetes, hyperlipidemia, hypertension, neurological Sjogren's and dementia, who has public guardian who presents for altered mental status and generalized pain pain. Patient states she came in emergency room because she had "pain everywhere", and seems generally confused about her visit and would like to go home. Alsom apparently while in ED she had suicidal ideation, which she is denying at this time. She is not complaining of any other symptoms at this time. She is denying chest pain, palpitations, diaphoresis, dyspnea, cough, suprapelvic pain, dysuria. 06/28/24. Patient seen and examined at bedside. No acute events overnight. Patient with no complaints. Echocardiogram is pending. Today's labs WBC 6.5, sodium 137, potassium 4.3, glucose 140. 06/29/24. Patient seen and examined at bedside. No acute events overnight. Echocardiogram with findings of LVEF 20 to 25%, moderate to severe mitral annular calcification. Urine culture with Proteus Mirabella's presumptive Staph aureus, awaiting blood culture no growth thus far. Today's labs WBC 7.2, hemoglobin 15.5, glucose 186. 06/30/2024 No significant change compared to study patient mary ann confused. REVIEW OF SYSTEMS: Pertinent positives and negatives noted in HPI. PHYSICAL EXAMINATION: Vitals reviewed GENERAL: Resting comfortably in bed. Obese. NECK: No tracheal deviation, full range of motion. CARDIOVASCULAR: S1 and S2 present. No murmurs, rubs, or gallops. PULMONARY: Chest is clear to auscultation, no wheezing, rhonchi, or crackles. ABDOMEN: Soft, nontender, nondistended. No palpable organomegaly. MUSCULOSKELETAL: No apparent joint swelling and deformities. EXTREMITIES: No apparent cyanosis, clubbing. No pedal edema. NEUROLOGICAL: Alert and oriented x3. Gross neurological examination with no apparent focal deficits. SKIN: No apparent rashes. Assessment and Plan: #Metabolic encephalopathy, likely due to delirium from UTI, patient is presently on ertapenem #UTI #History of ESBL MRSA last on 06/07/2024 Continue continue ertapenem 1 g daily Continue Zyprexa, Seroquel nightly Will avoid FACULTY HEAD sedatives and narcotics Urine culture with Proteus Mirabella's presumptive Staph aureus, PT OT consulted Psychiatry consulted, note reviewed ID consulted #Chronic A-fib, currently rate controlled #History of nonischemic cardiomyopathy with recovered EF, most recently 50 to 55%, presently not in acute exacerbation Continue Eliquis 5 mg twice daily, Lopressor 50 mg twice daily - CXR with cardiomegaly with mild pulmonary vascular congestion -On home bumex and potassium chloride Echocardiogram with findings of LVEF 20 to 25% Continuous cardiac monitoring Cardiology consulted #Diabetes mellitus type 2 Begin low-dose sliding scale insulin Monitor for hypoglycemia Chronic Medical Conditions #A-fib, history of ESBL MRSA last on 06/07/2024, CAD, diabetes, hyperlipidemia, hypertension, neurological Sjogren's and dementia -resume home medications DVT ppx: Eliquis 5 mg twice daily Code status: Full code F: PO E: Replete as needed N: Heart healthy diet Objective - Vital Signs Vital signs: Vital Signs Temp 97.4 F L 06/28/24 20:00 Pulse 84 06/30/24 11:21 Resp 14 06/30/24 11:21 BP 135/75 06/28/24 11:34 Pulse Ox 95 06/30/24 11:21 FiO2 Intake & Output 06/29/24 06/30/24 06/30/24 18:59 06:59 18:59 Intake Total 200 100 Balance 200 100 Weight 95.5 kg Intake: Intake, IV Titration 50 50 Amount Ertapenem 1 gm In Sodium 50 50 Chloride 0.9% 50 ml @ 100 mls/hr IVPB DAILY [facility] Rx #:[id number] Oral 150 50 Other: Voiding Method Bedpan Bedpan Bedpan Diaper Diaper Diaper Incontinent Incontinent Incontinent # Voids 1 - Labs CBC & Chem 7: 06/29/24 07:12 06/29/24 07:12 Labs: Abnormal Lab Results - Last 24 Hours (Table) 06/29/24 06/29/24 06/30/24 Range/Units 16:38 20:04 06:17 POC Glucose (mg/dL) 179 H 168 H 173 H (70-110) mg/dL 06/30/24 Range/Units 11:31 POC Glucose (mg/dL) 157 H (70-110) mg/dL Microbiology - Last 24 Hours (Table) 06/26/24 20:33 Urine Culture - Final Urine,Voided Methicillin resist S. aureus Proteus mirabilis 06/26/24 22:25 Blood Culture - Preliminary Blood
[2024-06-30 16:40] LABS: Glucose,Whole Blood 193 mg/dL (70-110)
--- NOTE | 2024-06-30 17:01 | P.PN ---
Subjective Progress Note Date: 06/29/24 Principal diagnosis: Reason for follow-up is ESBL E. coli UTI Patient is a 83-year-old female with a past medical history significant for Atrial Fibrillation, Coronary Artery Disease (CAD), Cancer, Diabetes Mellitus, Hyperlipidemia, Hypertension, Musculoskeletal Disorder, Neurologic Disorder, Osteoarthritis (OA), Pneumonia, Renal Disease, Rheumatoid Arthritis (RA), Skin Disorder, Thyroid Disorder, patient has been brought to the hospital for evaluation of mental status changes and failure to thrive she did have a positive UA concerning for UTI with recent urine culture positive for ESBL prompted this consultation On today's evaluation that is 06/29/2024, patient has been afebrile, patient is breathing comfortably and is currently on room air, patient denies having any chest pain and cough, patient denies nausea vomiting or diarrhea complaining of some suprapubic pain and discomfort. Patient did have white count 7.27, creatinine 0.52 Objective - Vital Signs Vital signs: Vital Signs Temp 97.4 F L 06/28/24 20:00 Pulse 82 06/28/24 20:00 Resp 16 06/28/24 20:00 BP 135/75 06/28/24 11:34 Pulse Ox 93 L 06/28/24 20:00 FiO2 Intake & Output 06/28/24 06/28/24 06/29/24 06:59 18:59 06:59 Intake Total 356 Balance 356 Weight 104.326 kg 98.5 kg Intake: Oral 356 Other: Voiding Method Diaper Bedpan Bedpan Incontinent Diaper Diaper Incontinent Incontinent # Voids 2 1 2 - Exam GENERAL DESCRIPTION: An elderly female lying in bed in no distress RESPIRATORY SYSTEM: Unlabored breathing , decreased breath sounds at bases HEART: S1 S2 regular rate and rhythm , ABDOMEN: Soft , no tenderness EXTREMITIES: No edema feet - Labs CBC & Chem 7: 06/29/24 07:12 06/29/24 07:12 Labs: Abnormal Lab Results - Last 24 Hours (Table) 06/28/24 06/28/24 06/28/24 Range/Units 05:42 05:42 05:42 MPV 9.4 L (9.5-12.2) fL Glucose 140 H (74-99) mg/dL POC Glucose (mg/dL) (70-110) mg/dL Hemoglobin A1c 6.1 H (<=6.0) % 06/28/24 06/28/24 06/28/24 Range/Units 11:09 16:09 19:50 MPV (9.5-12.2) fL Glucose (74-99) mg/dL POC Glucose (mg/dL) 200 H 190 H 175 H (70-110) mg/dL Hemoglobin A1c (<=6.0) % 06/29/24 Range/Units 05:57 MPV (9.5-12.2) fL Glucose (74-99) mg/dL POC Glucose (mg/dL) 182 H (70-110) mg/dL Hemoglobin A1c (<=6.0) % Microbiology - Last 24 Hours (Table) 06/26/24 22:25 Blood Culture - Preliminary Blood 06/26/24 20:33 Urine Culture - Preliminary Urine,Voided Gram Neg Bacilli Assessment and Plan (1) UTI due to extended-spectrum beta lactamase (ESBL) producing Escherichia coli Current Visit: Yes Status: Acute Code(s): N39.0 - URINARY TRACT INFECTION, SITE NOT SPECIFIED; B96.29 - OTH ESCHERICHIA COLI THE CAUSE OF DISEASES CLASSD ELSWHR; Z16.12 - EXTENDED SPECTRUM BETA LACTAMASE (ESBL) RESISTANCE SNOMED Code(s): 043204618 (2) Allergy to cephalosporin Current Visit: No Status: Acute Code(s): Z88.1 - ALLERGY STATUS TO OTHER ANTIBIOTIC AGENTS SNOMED Code(s): 416349585 Plan: 1patient presented to hospital with mental status changes hallucination failure to thrive in this patient noted to have significantly positive UA with a recent urine culture positive for ESBL E. coli however it is very hard to get any history from this patient as far as urinary symptoms and did not have any elevated white count 2-patient did have a cephalexin allergy that would limit the number of antib iotics safe to use 3- patient mention improvement in her symptoms as clinically behaving more of a cystitis 3 days of antibiotic should be enough Dictation was produced using [employer] dictation software. please excuse any grammatical, word or spelling errors. Time with Patient: Less than 30
[2024-06-30] MEDS ORDERED: VANCOMYCIN IV PER PHARMACY 1 EACH MISC MISCELLANE PRN (17:02)
--- NOTE | 2024-06-30 17:02 | P.PN ---
Subjective Progress Note Date: 06/30/24 Principal diagnosis: Reason for follow-up is ESBL E. coli UTI Patient is a 83-year-old female with a past medical history significant for Atrial Fibrillation, Coronary Artery Disease (CAD), Cancer, Diabetes Mellitus, Hyperlipidemia, Hypertension, Musculoskeletal Disorder, Neurologic Disorder, Osteoarthritis (OA), Pneumonia, Renal Disease, Rheumatoid Arthritis (RA), Skin Disorder, Thyroid Disorder, patient has been brought to the hospital for evaluation of mental status changes and failure to thrive she did have a positive UA concerning for UTI with recent urine culture positive for ESBL prompted this consultation On today's evaluation that is 06/30/2024, Patient is afebrile this morning patient denies having any chest pain shortness of breath or cough, the patient is currently on room air, patient denies any abdominal pain no diarrhea no nausea no vomiting. No labs were drawn today urine is growing MRSA and Proteus Objective - Vital Signs Vital signs: Vital Signs Temp 97.7 F 06/30/24 15:05 Pulse 82 06/30/24 15:05 Resp 13 06/30/24 15:05 BP 133/65 06/30/24 15:05 Pulse Ox 95 06/30/24 11:21 FiO2 Intake & Output 06/29/24 06/30/24 06/30/24 18:59 06:59 18:59 Intake Total 200 322 Balance 200 322 Weight 95.5 kg Intake: Intake, IV Titration 50 50 Amount Ertapenem 1 gm In Sodium 50 50 Chloride 0.9% 50 ml @ 100 mls/hr IVPB DAILY [facility] Rx #:[id number] Oral 150 272 Other: Voiding Method Bedpan Bedpan Bedpan Diaper Diaper Diaper Incontinent Incontinent Incontinent # Voids 1 1 - Exam GENERAL DESCRIPTION: An elderly female lying in bed in no distress RESPIRATORY SYSTEM: Unlabored breathing , decreased breath sounds at bases HEART: S1 S2 regular rate and rhythm , ABDOMEN: Soft , no tenderness EXTREMITIES: No edema feet - Labs CBC & Chem 7: 06/29/24 07:12 06/29/24 07:12 Labs: Abnormal Lab Results - Last 24 Hours (Table) 06/29/24 06/30/24 06/30/24 Range/Units 20:04 06:17 11:31 POC Glucose (mg/dL) 168 H 173 H 157 H (70-110) mg/dL 06/30/24 Range/Units 16:39 POC Glucose (mg/dL) 193 H (70-110) mg/dL Microbiology - Last 24 Hours (Table) 06/26/24 20:33 Urine Culture - Final Urine,Voided Methicillin resist S. aureus Proteus mirabilis 06/26/24 22:25 Blood Culture - Preliminary Blood Assessment and Plan (1) UTI due to extended-spectrum beta lactamase (ESBL) producing Escherichia coli Current Visit: Yes Status: Acute Code(s): N39.0 - URINARY TRACT INFECTION, SITE NOT SPECIFIED; B96.29 - OTH ESCHERICHIA COLI THE CAUSE OF DISEASES CLASSD ELSWHR; Z16.12 - EXTENDED SPECTRUM BETA LACTAMASE (ESBL) RESISTANCE SNOMED Code(s): 586461752 (2) Allergy to cephalosporin Current Visit: No Status: Acute Code(s): Z88.1 - ALLERGY STATUS TO OTHER ANTIBIOTIC AGENTS SNOMED Code(s): 367612306 Plan: 1patient presented to hospital with mental status changes hallucination failure to thrive in this patient noted to have significantly positive UA with a recent urine culture positive for ESBL E. coli however it is very hard to get any history from this patient as far as urinary symptoms and did not have any elevated white count 2-patient did have a cephalexin allergy that would limit the number of ant ibiotics safe to use 3- patient urine is growing Proteus and MRSA she is covered with Invanz for the Proteus we will start vancomycin to cover for the MRSA repeat a UA and culture Dictation was produced using [employer] dictation software. please excuse any grammatical, word or spelling errors. Time with Patient: Less than 30
[2024-06-30] MEDS: VANCOMYCIN 1,750 MG in SODIUM CHLORIDE 0.9% 500 ML 500 ML IVPB SCH (18:10)
[2024-06-30 20:52] LABS: Glucose,Whole Blood 280 mg/dL (70-110)
[2024-07-01 06:21] LABS: Appearance,Urine Turbid (Clear); Bilirubin,Urine Negative (Negative); Blood,Urine Moderate (Negative); Budding Yeast,Urine Many /hpf; Calcium Oxalate Crystals,Urine Few /hpf; Color,Urine Yellow; Glucose,Urine (UA) 4+ (Negative); Hyphae Yeast, Urine Few /hpf; Ketones,Urine Negative (Negative); Leukocyte Esterase,Urine Large (Negative); Nitrite,Urine Negative (Negative); PH, Urine 5.5 (5.0-8.0); Protein,Urine Negative (Negative); RBC,Urine 79 /hpf (0-5); WBC,Urine >182 /hpf (0-5)
[2024-07-01 06:29] LABS: Glucose,Whole Blood 156 mg/dL (70-110)
[2024-07-01 06:53] LABS: African American GFR (CKD) >90 (>60 ml/min/1.73 sqM); Non-African American GFR(CKD) 89 (>60 ml/min/1.73 sqM)
[2024-07-01] MEDS: LOSARTAN 50 MG TAB PO SCH (07:37)
[2024-07-01 12:07] LABS: Glucose,Whole Blood 239 mg/dL (70-110)
[2024-07-01 16:55] LABS: Glucose,Whole Blood 195 mg/dL (70-110)
[2024-07-01 20:25] LABS: Glucose,Whole Blood 237 mg/dL (70-110)
[2024-07-02 04:04] LABS: African American GFR (CKD) >90 (>60 ml/min/1.73 sqM); Anion Gap 9 mmol/L; Blood Urea Nitrogen 14 mg/dL (7-17); Calcium 9.1 mg/dL (8.4-10.2); Carbon Dioxide 26 mmol/L (22-30); Chloride 99 mmol/L (98-107); Glucose 231 mg/dL (74-99); Magnesium 1.6 mg/dL (1.6-2.3); Non-African American GFR(CKD) 88 (>60 ml/min/1.73 sqM); Potassium 4.2 mmol/L (3.5-5.1); Sodium 134 mmol/L (137-145)
[2024-07-02] MEDS ORDERED: Magnesium Replacement Protocol 1 EACH MISC MISCELLANE PRN (05:33)
--- NOTE | 2024-07-02 05:44 | P.PN ---
Subjective Progress Note Date: 07/01/24 Patient is a 83-year-old female chronic A-fib, history of ESBL MRSA last on 06/07/2024, CAD, diabetes, hyperlipidemia, hypertension, neurological Sjogren's and dementia, who has public guardian who presents for altered mental status and generalized pain pain. Patient states she came in emergency room because she had "pain everywhere", and seems generally confused about her visit and would like to go home. Alsom apparently while in ED she had suicidal ideation, which she is denying at this time. She is not complaining of any other symptoms at this time. She is denying chest pain, palpitations, diaphoresis, dyspnea, cough, suprapelvic pain, dysuria. 06/28/24. Patient seen and examined at bedside. No acute events overnight. Patient with no complaints. Echocardiogram is pending. Today's labs WBC 6.5, sodium 137, potassium 4.3, glucose 140. /05/21. Patient seen and examined at bedside. No acute events overnight. Echocardiogram with findings of LVEF 20 to 25%, moderate to severe mitral annular calcification. Urine culture with Proteus Mirabella's presumptive Staph aureus, awaiting blood culture no growth thus far. Today's labs WBC 7.2, hemoglobin 15.5, glucose 186. 06/30/2024 No significant change compared to study patient mary ann confused. 07/01/2024 Patient is seen and evaluated in follow-up today with infectious disease following maintained on IV antibiotics repeat urine culture has been sent and culture is pending at this time his urine culture was showing E. coli with ESBL. Patient does have a legal guardian currently working on discharge planning and possible ECF. Patient is afebrile with no reports of chest pain or shortness of breath. Patient will also need resources on discharge for primary care provider as patient currently has no PCP. Review of systems: Constitutional: No reports of fatigue, fever, or chills Cardiovascular: No reports of chest pain or palpitations Respiratory: No reports of shortness of breath or cough GI: No reports of nausea, vomiting, or diarrhea : No reports of dysuria or retention Neurovascular: reports of generalized weakness All medications have been reviewed REVIEW OF SYSTEMS: Pertinent positives and negatives noted in HPI. PHYSICAL EXAMINATION: GENERAL: This is an 83-year-old female who is awake, alert and oriented x 1-2, baseline mild, elderly appearing, obese NECK: No tracheal deviation, full range of motion. CARDIOVASCULAR: S1 and S2 muffled PULMONARY: Diminished breath sounds bilaterally otherwise chest is clear to auscultation, no wheezing, rhonchi, or crackles. ABDOMEN: Soft, nontender, nondistended. No palpable organomegaly. MUSCULOSKELETAL: No apparent joint swelling and deformities. EXTREMITIES: No apparent cyanosis, clubbing. No pedal edema. NEUROLOGICAL: Alert and oriented x 1-2. Gross neurological examination with no apparent focal deficits. Diffusely weak SKIN: No apparent rashes. Assessment: #Metabolic encephalopathy, likely due to delirium from UTI, patient is presently on ertapenem #UTI, present on admission #History of ESBL MRSA last on 06/07/2024 #Chronic A-fib, currently rate controlled #History of nonischemic cardiomyopathy with recovered EF, most recently 50 to 5 5%, presently not in acute exacerbation #Diabetes mellitus type 2, uncontrolled with hyper and hypoglycemia -CAD history -hyperlipidemia -hypertension -neurological Sjogren's and dementia -Obesity with a BMI 33.5 DVT ppx: Eliquis 5 mg twice daily GI prophylaxis Full code Plan: Patient being closely followed with infectious disease maintained on IV antibiotics and will continue while awaiting repeat urine culture Case management following working on discharge planning to possible ECF. Patient has legal guardian Follow-up on repeat labs and replace electrolytes per protocol Continue monitoring Accu-Cheks AC and at bedtime and will continue current regimen and adjust insulins accordingly Recommend PT/OT therapy evaluation daily for continued strength mobility Awaiting repeat cultures and will discuss with infectious disease regarding appropriate discharge antibiotics The impression and plan of care has been dictated by Kimberlee Lopez, Nurse Practitioner as directed. Dr. Joie MD I have performed a history and examination and MDM of this patient, discussed the same with the dictator, and agree with the dictator's assessment and plan as written ,documented as a scribe. Based on total visit time, I have performed more than 50% of the visit. Objective - Vital Signs Vital signs: Vital Signs Temp 97.6 F 07/01/24 07:08 Pulse 74 07/01/24 07:08 Resp 16 07/01/24 07:08 BP 114/61 07/01/24 07:08 Pulse Ox 96 07/01/24 07:08 FiO2 Intake & Output 06/30/24 07/01/24 07/01/24 18:59 06:59 18:59 Intake Total 322 1080 Balance 322 1080 Weight 97 kg Intake: Intake, IV Titration 50 Amount Ertapenem 1 gm In Sodium 50 Chloride 0.9% 50 ml @ 100 mls/hr IVPB DAILY [facility] Rx #:[id number] Oral 272 1080 Other: Voiding Method Bedpan Bedpan Diaper Incontinent # Voids 1 6 1 - Labs CBC & Chem 7: 06/29/24 07:12 07/02/24 02:16 Labs: Abnormal Lab Results - Last 24 Hours (Table) 06/30/24 06/30/24 06/30/24 Range/Units 11:31 16:39 20:37 POC Glucose (mg/dL) 157 H 193 H (70-110) mg/dL Urine Appearance Turbid H (Clear) Urine Glucose (UA) 4+ H (Negative) Urine Blood Moderate H (Negative) Ur Leukocyte Esterase Large H (Negative) Urine RBC 79 H (0-5) /hpf Urine WBC >182 H (0-5) /hpf Urine WBC Clumps Many H (None) /hpf Calcium Oxalate Crystal Few H (None) /hpf Urine Yeast (Budding) Many H (None) /hpf 06/30/24 07/01/24 Range/Units 20:49 06:27 POC Glucose (mg/dL) 280 H 156 H (70-110) mg/dL Urine Appearance (Clear) Urine Glucose (UA) (Negative) Urine Blood (Negative) Ur Leukocyte Esterase (Negative) Urine RBC (0-5) /hpf Urine WBC (0-5) /hpf Urine WBC Clumps (None) /hpf Calcium Oxalate Crystal (None) /hpf Urine Yeast (Budding) (None) /hpf Microbiology - Last 24 Hours (Table) 06/26/24 20:33 Urine Culture - Final Urine,Voided Methicillin resist S. aureus Proteus mirabilis
[2024-07-02 06:29] LABS: Glucose,Whole Blood 223 mg/dL (70-110)
[2024-07-02] MEDS: MAGNESIUM SULFATE-D5W PMX 1 GM in DEXTROSE/WATER 1 100ML.BAG IVPB SCH (06:39)
[2024-07-02 11:18] LABS: Glucose,Whole Blood 179 mg/dL (70-110)
--- NOTE | 2024-07-02 13:58 | P.PN ---
Subjective Progress Note Date: 07/01/24 Principal diagnosis: Reason for follow-up is ESBL E. coli UTI Patient is a 83-year-old female with a past medical history significant for Atrial Fibrillation, Coronary Artery Disease (CAD), Cancer, Diabetes Mellitus, Hyperlipidemia, Hypertension, Musculoskeletal Disorder, Neurologic Disorder, Osteoarthritis (OA), Pneumonia, Renal Disease, Rheumatoid Arthritis (RA), Skin Disorder, Thyroid Disorder, patient has been brought to the hospital for evaluation of mental status changes and failure to thrive she did have a positive UA concerning for UTI with recent urine culture positive for ESBL prompted this consultation On today's evaluation that is 07/01/2024,the patient denies any fever or any chills, patient is breathing comfortably on room air, the patient denies chest pain shortness of breath and no significant cough, patient denies abdominal pain, no nausea vomiting or diarrhea. Patient did have a creatinine 0.5 2 repeat UA is positive cultures are pending Objective - Vital Signs Vital signs: Vital Signs Temp 97.6 F 07/01/24 07:08 Pulse 74 07/01/24 07:08 Resp 16 07/01/24 07:08 BP 114/61 07/01/24 07:08 Pulse Ox 96 07/01/24 07:08 FiO2 Intake & Output 06/30/24 07/01/24 07/01/24 18:59 06:59 18:59 Intake Total 322 1080 Balance 322 1080 Weight 97 kg Intake: Intake, IV Titration 50 Amount Ertapenem 1 gm In Sodium 50 Chloride 0.9% 50 ml @ 100 mls/hr IVPB DAILY [facility] Rx #:[id number] Oral 272 1080 Other: Voiding Method Bedpan Bedpan Diaper Incontinent # Voids 1 6 1 - Exam GENERAL DESCRIPTION: An elderly female lying in bed in no distress RESPIRATORY SYSTEM: Unlabored breathing , decreased breath sounds at bases HEART: S1 S2 regular rate and rhythm , ABDOMEN: Soft , no tenderness EXTREMITIES: No edema feet - Labs CBC & Chem 7: 06/29/24 07:12 07/02/24 02:16 Labs: Abnormal Lab Results - Last 24 Hours (Table) 06/30/24 06/30/24 06/30/24 Range/Units 16:39 20:37 20:49 POC Glucose (mg/dL) 193 H 280 H (70-110) mg/dL Urine Appearance Turbid H (Clear) Urine Glucose (UA) 4+ H (Negative) Urine Blood Moderate H (Negative) Ur Leukocyte Esterase Large H (Negative) Urine RBC 79 H (0-5) /hpf Urine WBC >182 H (0-5) /hpf Urine WBC Clumps Many H (None) /hpf Calcium Oxalate Crystal Few H (None) /hpf Urine Yeast (Budding) Many H (None) /hpf 07/01/24 07/01/24 Range/Units 06:27 12:05 POC Glucose (mg/dL) 156 H 239 H (70-110) mg/dL Urine Appearance (Clear) Urine Glucose (UA) (Negative) Urine Blood (Negative) Ur Leukocyte Esterase (Negative) Urine RBC (0-5) /hpf Urine WBC (0-5) /hpf Urine WBC Clumps (None) /hpf Calcium Oxalate Crystal (None) /hpf Urine Yeast (Budding) (None) /hpf Assessment and Plan (1) UTI due to extended-spectrum beta lactamase (ESBL) producing Escherichia coli Current Visit: Yes Status: Acute Code(s): N39.0 - URINARY TRACT INFECTION, SITE NOT SPECIFIED; B96.29 - OTH ESCHERICHIA COLI THE CAUSE OF DISEASES CLASSD ELSWHR; Z16.12 - EXTENDED SPECTRUM BETA LACTAMASE (ESBL) RESISTANCE SNOMED Code(s): 295691275 (2) Allergy to cephalosporin Current Visit: No Status: Acute Code(s): Z88.1 - ALLERGY STATUS TO OTHER ANTIBIOTIC AGENTS SNOMED Code(s): 353021695 Plan: 1patient presented to hospital with mental status changes hallucination failure to thrive in this patient noted to have significantly positive UA with a recent urine culture positive for ESBL E. coli however it is very hard to get any history from this patient as far as urinary symptoms and did not have any elevated white count 2-patient did have a cephalexin allergy that would limit the number of antibiotics safe to use 3- patient urine is growing Proteus and MRSA, repeat UA was obtained which is still positive cultures are pending we will continue with Invanz and vancomycin while waiting for the culture to finalize Dictation was produced using [employer] software. please excuse any grammatical, word or spelling errors. Time with Patient: Less than 30
--- NOTE | 2024-07-02 14:00 | P.PN ---
Subjective Progress Note Date: 07/02/24 Principal diagnosis: Reason for follow-up is ESBL E. coli UTI Patient is a 83-year-old female with a past medical history significant for Atrial Fibrillation, Coronary Artery Disease (CAD), Cancer, Diabetes Mellitus, Hyperlipidemia, Hypertension, Musculoskeletal Disorder, Neurologic Disorder, Osteoarthritis (OA), Pneumonia, Renal Disease, Rheumatoid Arthritis (RA), Skin Disorder, Thyroid Disorder, patient has been brought to the hospital for evaluation of mental status changes and failure to thrive she did have a positive UA concerning for UTI with recent urine culture positive for ESBL prompted this consultation On today's evaluation that is 07/02/2024,the patient remains to be afebrile, patient is on room air not requiring supplemental oxygen and denies any shortness of breath no chest pain or cough.Patient denies having any nausea or vomiting, no abdominal pain and no diarrhea. Patient did have a creatinine 0.5 4 repeat urine cultures currently pending blood culture has been negative Objective - Vital Signs Vital signs: Vital Signs Temp 98.1 F 07/02/24 00:07 Pulse 72 07/02/24 00:07 Resp 16 07/02/24 00:07 BP 111/74 07/02/24 00:07 Pulse Ox 96 07/02/24 00:07 FiO2 Intake & Output 07/01/24 07/02/24 07/02/24 18:59 06:59 18:59 Intake Total 480 Balance 480 Weight 96 kg Intake: Oral 480 Other: Voiding Method Bedpan Toilet # Voids 2 4 - Exam GENERAL DESCRIPTION: An elderly female lying in bed in no distress RESPIRATORY SYSTEM: Unlabored breathing , decreased breath sounds at bases HEART: S1 S2 regular rate and rhythm , ABDOMEN: Soft , no tenderness EXTREMITIES: No edema feet - Labs CBC & Chem 7: 06/29/24 07:12 07/02/24 02:16 Labs: Abnormal Lab Results - Last 24 Hours (Table) 07/01/24 07/01/24 07/02/24 Range/Units 16:54 20:23 02:16 Sodium 134 L (137-145) mmol/L Glucose 231 H (74-99) mg/dL POC Glucose (mg/dL) 195 H 237 H (70-110) mg/dL 07/02/24 07/02/24 Range/Units 06:27 11:16 Sodium (137-145) mmol/L Glucose (74-99) mg/dL POC Glucose (mg/dL) 223 H 179 H (70-110) mg/dL Microbiology - Last 24 Hours (Table) 06/30/24 20:37 Urine Culture - Preliminary Urine,Voided 06/26/24 22:25 Blood Culture - Final Blood Assessment and Plan (1) UTI due to extended-spectrum beta lactamase (ESBL) producing Escherichia coli Current Visit: Yes Status: Acute Code(s): N39.0 - URINARY TRACT INFECTION, SITE NOT SPECIFIED; B96.29 - OTH ESCHERICHIA COLI THE CAUSE OF DISEASES CLASSD ELSWHR; Z16.12 - EXTENDED SPECTRUM BETA LACTAMASE (ESBL) RESISTANCE SNOMED Code(s): 511020938 (2) Allergy to cephalosporin Current Visit: No Status: Acute Code(s): Z88.1 - ALLERGY STATUS TO OTHER ANTIBIOTIC AGENTS SNOMED Code(s): 438660320 Plan: 1patient presented to hospital with mental status changes hallucination failure to thrive in this patient noted to have significantly positive UA with a recent urine culture positive for ESBL E. coli however it is very hard to get any history from this patient as far as urinary symptoms and did not have any elevated white count 2-patient did have a cephalexin allergy that would limit the number of antibiotics safe to use 3- patient urine is growing Proteus and MRSA, repeat UA was obtained which is still positive cultures are pending 4patient is currently being treated with Invanz and vancomycin while waiting for the culture to finalize Dictation was produced using [employer] dictation software. please excuse any grammatical, word or spelling errors. Time with Patient: Less than 30
--- NOTE | 2024-07-02 14:45 | US ---
EXAMINATION TYPE: US kidneys/renal and bladder DATE OF EXAM: 07/02/2024 COMPARISON: CT 2022, CT 2018 CLINICAL INDICATION: Female, 83 years old with history of Recurrent UTI; Recurrent UTI TECHNIQUE: Grayscale imaging of the bilateral kidneys and urinary bladder: FINDINGS: EXAM MEASUREMENTS: Right Kidney: 13.6 x 5.7 x 5.7 cm Left Kidney: 11.6 x 5. x 6.2 cm Right Kidney: *Enlarged. Cortex appears thin. Left Kidney: *Very limited due to gas and pt body habitus. No hydronephrosis or masses seen. Cortex a ppears thin.*Shadowing seen from bowel gas limiting evaluation. Bladder: Appears anechoic. *Bladder wall measures 4 mm- thick - however, bladder does not appear full y distended. Bilateral Jets seen: Yes Cortical thinning of both kidneys. Limited visualization left kidney due to overlying bowel gas and p atient's body habitus. No hydronephrosis or shadowing calculi or solid masses involving both kidneys. Cortical medullary differentiation is maintained bilaterally. The urinary bladder is anechoic and un rosana distended with mild wall thickening. Bilateral ureteral jets identified. IMPRESSION: 1. No hydronephrosis or nephrolithiasis. 2. Findings suggestive of bilateral chronic medical renal disease. 3. Mildly thickened urinary bladder which may relate to under distention versus cystitis. Correlate w rupa BUCKLEY. [facility], , 07/02/2024 2:43 PM
[2024-07-02 16:16] LABS: Glucose,Whole Blood 241 mg/dL (70-110)
[2024-07-02 20:24] LABS: Glucose,Whole Blood 320 mg/dL (70-110)
--- NOTE | 2024-07-03 06:22 | P.PN ---
Subjective Progress Note Date: 07/02/24 Patient is a 83-year-old female chronic A-fib, history of ESBL MRSA last on 06/07/2024, CAD, diabetes, hyperlipidemia, hypertension, neurological Sjogren's and dementia, who has public guardian who presents for altered mental status and generalized pain pain. Patient states she came in emergency room because she had "pain everywhere", and seems generally confused about her visit and would like to go home. Alsom apparently while in ED she had suicidal ideation, which she is denying at this time. She is not complaining of any other symptoms at this time. She is denying chest pain, palpitations, diaphoresis, dyspnea, cough, suprapelvic pain, dysuria. 06/28/24. Patient seen and examined at bedside. No acute events overnight. Patient with no complaints. Echocardiogram is pending. Today's labs WBC 6.5, sodium 137, potassium 4.3, glucose 140. 06/29/24. Patient seen and examined at bedside. No acute events overnight. Echocardiogram with findings of LVEF 20 to 25%, moderate to severe mitral annular calcification. Urine culture with Proteus Mirabella's presumptive Staph aureus, awaiting blood culture no growth thus far. Today's labs WBC 7.2, hemoglobin 15.5, glucose 186. 06/30/2024 No significant change compared to study patient mary ann confused. 07/01/2024 Patient is seen and evaluated in follow-up today with infectious disease following maintained on IV antibiotics repeat urine culture has been sent and culture is pending at this time his urine culture was showing E. coli with ESBL. Patient does have a legal guardian currently working on discharge planning and possible ECF. Patient is afebrile with no reports of chest pain or shortness of breath. Patient will also need resources on discharge for primary care provider as patient currently has no PCP. 07/02/2024 Patient seen in follow-up today reporting she is leaving today and going home. Patient is currently being on antibiotics with infectious disease following and awaiting repeat cultures to determine appropriate discharge antibiotics. Patient does have a legal guardian with case management following working on d ischarge planning. Will follow-up once we have finalized culture to determine appropriate safe discharge plan. Review of systems: Constitutional: No reports of fatigue, fever, or chills Cardiovascular: No reports of chest pain or palpitations Respiratory: No reports of shortness of breath or cough GI: No reports of nausea, vomiting, or diarrhea : No reports of dysuria or retention Neurovascular: reports of generalized weakness All medications have been reviewed REVIEW OF SYSTEMS: Pertinent positives and negatives noted in HPI. PHYSICAL EXAMINATION: GENERAL: This is an 83-year-old female who is awake, alert and oriented x 1-2, baseline mildly anxious, elderly appearing, obese NECK: No tracheal deviation, full range of motion. CARDIOVASCULAR: S1 and S2 muffled PULMONARY: Diminished breath sounds bilaterally otherwise chest is clear to auscultation, no wheezing, rhonchi, or crackles. ABDOMEN: Soft, nontender, nondistended. No palpable organomegaly. MUSCULOSKELETAL: No apparent joint swelling and deformities. EXTREMITIES: No apparent cyanosis, clubbing. No pedal edema. NEUROLOGICAL: Alert and oriented x 1-2. Gross neurological examination with no apparent focal deficits. Diffusely weak SKIN: No apparent rashes. Assessment: #Metabolic encephalopathy, likely due to delirium from UTI, patient is presently on ertapenem #UTI, present on admission #History of ESBL MRSA last on 06/07/2024 #Chronic A-fib, currently rate controlled #History of nonischemic cardiomyopathy with recovered EF, most recently 50 to 55%, presently not in acute exacerbation #Diabetes mellitus type 2, uncontrolled with hyper and hypoglycemia -CAD history -hyperlipidemia -hypertension -neurological Sjogren's and dementia -Obesity with a BMI 33.5 DVT ppx: Eliquis 5 mg twice daily GI prophylaxis Full code Plan: Patient being closely followed with infectious disease maintained on IV ant ibiotics and will continue while awaiting repeat urine culture Case management following working on discharge planning to possible ECF. Patient has legal guardian Follow-up on repeat labs and replace electrolytes per protocol Continue monitoring Accu-Cheks AC and at bedtime and will continue current regimen and adjust insulins accordingly Recommend PT/OT therapy evaluation daily for continued strength mobility Awaiting repeat cultures and will discuss with infectious disease regarding appropriate discharge antibiotics. Patient is adamant she is going home although this will be discussed with case management and legal guardian. The impression and plan of care has been dictated by Kimberlee Lopez, Nurse Practitioner as directed. Dr. Joie MD I have performed a history and examination and MDM of this patient, discussed the same with the dictator, and agree with the dictator's assessment and plan as written ,documented as a scribe. Based on total visit time, I have performed more than 50% of the visit. Objective - Vital Signs Vital signs: Vital Signs Temp 97.9 F 07/03/24 00:00 Pulse 85 07/03/24 00:00 Resp 18 07/03/24 00:00 BP 116/57 07/03/24 00:00 Pulse Ox 98 07/03/24 00:00 FiO2 Intake & Output 07/02/24 07/02/24 07/03/24 06:59 18:59 06:59 Intake Total 480 Balance 480 Weight 96 kg 97 kg Intake: Oral 480 Other: Voiding Method Bedside Commode Toilet # Voids 4 1 - Labs CBC & Chem 7: 06/29/24 07:12 07/02/24 02:16 Labs: Abnormal Lab Results - Last 24 Hours (Table) 07/02/24 07/02/24 07/02/24 Range/Units 06:27 11:16 16:14 POC Glucose (mg/dL) 223 H 179 H 241 H (70-110) mg/dL 07/02/24 Range/Units 20:22 POC Glucose (mg/dL) 320 H (70-110) mg/dL Microbiology - Last 24 Hours (Table) 06/30/24 20:37 Urine Culture - Preliminary Urine,Voided 06/26/24 22:25 Blood Culture - Final Blood
[2024-07-03 10:46] VITALS: BMI 33.5
[2024-07-03 11:48] LABS: Glucose,Whole Blood 259 mg/dL (70-110)
[2024-07-03 16:33] LABS: Glucose,Whole Blood 230 mg/dL (70-110)
[2024-07-03] MEDS ORDERED: VANCOMYCIN TROUGH DUE 1 EACH MISC MISCELLANE ONE (17:00)
[2024-07-03 19:59] LABS: Glucose,Whole Blood 264 mg/dL (70-110)
[2024-07-03] MEDS: LINEZOLID 600 MG TAB PO SCH (21:10)
--- NOTE | 2024-07-04 05:38 | P.PN ---
Subjective Progress Note Date: 07/03/24 Patient is a 83-year-old female chronic A-fib, history of ESBL MRSA last on 06/07/2024, CAD, diabetes, hyperlipidemia, hypertension, neurological Sjogren's and dementia, who has public guardian who presents for altered mental status and generalized pain pain. Patient states she came in emergency room because she had "pain everywhere", and seems generally confused about her visit and would like to go home. Alsom apparently while in ED she had suicidal ideation, which she is denying at this time. She is not complaining of any other symptoms at this time. She is denying chest pain, palpitations, diaphoresis, dyspnea, cough, suprapelvic pain, dysuria. 06/28/24. Patient seen and examined at bedside. No acute events overnight. Patient with no complaints. Echocardiogram is pending. Today's labs WBC 6.5, sodium 137, potassium 4.3, glucose 140. 06/29/24. Patient seen and examined at bedside. No acute events overnight. Echocardiogram with findings of LVEF 20 to 25%, moderate to severe mitral annular calcification. Urine culture with Proteus Mirabella's presumptive Staph aureus, awaiting blood culture no growth thus far. Today's labs WBC 7.2, hemoglobin 15.5, glucose 186. 06/30/2024 No significant change compared to study patient mary ann confused. 07/01/2024 Patient is seen and evaluated in follow-up today with infectious disease following maintained on IV antibiotics repeat urine culture has been sent and culture is pending at this time his urine culture was showing E. coli with ESBL. Patient does have a legal guardian currently working on discharge planning and possible ECF. Patient is afebrile with no reports of chest pain or shortness of breath. Patient will also need resources on discharge for primary care provider as patient currently has no PCP. 07/02/2024 Patient seen in follow-up today reporting she is leaving today and going home. Patient is currently being on antibiotics with infectious disease following and awaiting repeat cultures to determine appropriate discharge antibiotics. Patient does have a legal guardian with case management following working on d ischarge planning. Will follow-up once we have finalized culture to determine appropriate safe discharge plan. 07/03/2024 Patient seen in follow-up today and was awaiting finalized cultures to determine appropriate discharge antibiotics. Urine culture finalized with Enterococcus VRE and infectious disease following and will continue current regimen. Will transition to oral Zyvox on discharge for 1 week. Case management following and patient has been accepted at [facility] although bed is not available until tomorrow 07/04/2024. Patient will be discharged in 24 hours. Patient is afebrile and denies chest pain or shortness of breath. No reported nausea or vomiting and patient tolerating diet. Review of systems: Constitutional: No reports of fatigue, fever, or chills Cardiovascular: No reports of chest pain or palpitations Respiratory: No reports of shortness of breath or cough GI: No reports of nausea, vomiting, or diarrhea : No reports of dysuria or retention Neurovascular: reports of generalized weakness All medications have been reviewed REVIEW OF SYSTEMS: Pertinent positives and negatives noted in HPI. PHYSICAL EXAMINATION: GENERAL: This is an 83-year-old female who is awake, alert and oriented x 1-2, baseline mildly anxious, elderly appearing, obese NECK: No tracheal deviation, full range of motion. CARDIOVASCULAR: S1 and S2 muffled PULMONARY: Diminished breath sounds bilaterally otherwise chest is clear to auscultation, no wheezing, rhonchi, or crackles. ABDOMEN: Soft, nontender, nondistended. No palpable organomegaly. MUSCULOSKELETAL: No apparent joint swelling and deformities. EXTREMITIES: No apparent cyanosis, clubbing. No pedal edema. NEUROLOGICAL: Alert and oriented x 1-2. Gross neurological examination with no apparent focal deficits. Diffusely weak SKIN: No apparent rashes. Assessment: #Metabolic encephalopathy, likely due to delirium from UTI, patient is presently on ertapenem #UTI, present on admission. Urine culture growing Enterococcus VRE #History of ESBL MRSA last on 06/07/2024 #Chronic A-fib, currently rate controlled #History of nonischemic cardiomyopathy with recovered EF, most recently 50 to 55%, presently not in acute exacerbation #Diabetes mellitus type 2, uncontrolled with hyper and hypoglycemia -CAD history -hyperlipidemia -hypertension -neurological Sjogren's and dementia -Obesity with a BMI 33.5 DVT ppx: Eliquis 5 mg twice daily GI prophylaxis Full code Plan: Patient being closely followed with infectious disease maintained on IV antibiotics and will continue current regimen. Transition to oral Zyvox at discharge for 1 week as cultures finalized showing Enterococcus faecium VRE Case management following working on discharge planning to possible ECF. Patient has legal guardian and will be going to [facility]. There is a bed available on 07/04/2024 Follow-up on repeat labs and replace electrolytes per protocol Continue monitoring Accu-Cheks AC and at bedtime and will continue current regimen and adjust insulins accordingly Recommend PT/OT therapy evaluation daily for continued strength mobility Will plan for discharge to [facility] in the next 24 hours Due to complex medical issues, overall prognosis is guarded The impression and plan of care has been dictated by Kimberlee Lopez, Nurse Practitioner as directed. Dr. Joie MD I have performed a history and examination and MDM of this patient, discussed the same with the dictator, and agree with the dictator's assessment and plan as written ,documented as a scribe. Based on total visit time, I have performed more than 50% of the visit. Objective - Vital Signs Vital signs: Vital Signs Temp 97.6 F 07/03/24 19:15 Pulse 85 07/03/24 20:30 Resp 18 07/03/24 20:30 BP 131/64 07/03/24 19:15 Pulse Ox 97 07/03/24 19:15 FiO2 Intake & Output 07/03/24 07/03/24 07/04/24 06:59 18:59 06:59 Weight 97 kg 97 kg Other: Voiding Method Toilet Bedside Commode Bedpan # Voids 1 # Bowel Movements 1 - Labs CBC & Chem 7: 06/29/24 07:12 07/02/24 02:16 Labs: Abnormal Lab Results - Last 24 Hours (Table) 07/03/24 07/03/24 07/03/24 Range/Units 11:47 16:28 19:57 POC Glucose (mg/dL) 259 H 230 H 264 H (70-110) mg/dL Microbiology - Last 24 Hours (Table) 06/30/24 20:37 Urine Culture - Final Urine,Voided Enterococcus faecium VRE
[2024-07-04 06:18] LABS: Glucose,Whole Blood 219 mg/dL (70-110)
[2024-07-04 06:59] LABS: African American GFR (CKD) >90 (>60 ml/min/1.73 sqM); Non-African American GFR(CKD) >90 (>60 ml/min/1.73 sqM)
[2024-07-04 08:35] VITALS: BP 133/70; PULSE 77; RESP 17; TEMP 97.9
--- NOTE | 2024-07-04 10:57 | P.DS ---
Providers Date of admission: 06/26/24 23:03 Expected date of discharge: 07/04/24 Attending physician: Arthur Doyle Consults: 06/26/24 23:01 Consult Physician Urgent Consulting Provider: Psychiatry - [facility] Psychiatry Consult Reason/Comments: Aggression/agitation, suicidal statements Do you want consulting provider notified?: Yes Consult Physician Urgent Consulting Provider: Tg Butts Consult Reason/Comments: ESBL E. coli UTI Do you want consulting provider notified?: Yes Primary care physician: Stated None Hospital Course: Final diagnosis #Metabolic encephalopathy, likely due to delirium from UTI, patient is on ertapenem and will transition to oral Zyvox twice daily for 1 week as culture showing Enterococcus faecium VRE #UTI, present on admission. 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 Patient will follow-up with a primary care provider to establish with in the outpatient setting upon discharge. Patient is to continue with oral Zyvox twice daily for 1 week as scheduled. Total time taken is greater than 35 minutes. Hospital course This is a 83-year-old female who was recently admitted with reported pain everywhere and generally confused with concerns of urinary tract infection. Culture showing Proteus along with presumptive staph in blood cultures are negative. Repeat urine was done and showing Enterococcus faecium VRE and is being closely monitored by infectious disease maintained on IV antibiotics. Patient will transition to oral Zyvox twice daily for 1 week and recommend close outpatient follow-up. Patient has recurrent UTIs and has had frequent urinary tract infections. Patient does have a legal guardian Raman Lindsey and is not able to make her own decisions reporting she is not safe to be going home. Patient is significantly weak and was evaluated by physical therapy recommending rehab. Patient has been accepted at [facility] and has received insurance authorization. Patient has a bed available at [facility] and will be going today 07/04/2024. Please refer to other consultation notes for further HPI. Patient was also evaluated by psychiatry recommending continued Seroquel as scheduled. Patient denies any thoughts of suicidal ideation or wanting to harm herself or others. Patient just continues to report she wants to go home. Currently no reports of chest pain, shortness of breath, or palpitations. Patient is afebrile. No reports of nausea or vomiting and patient is tolerating diet. Patient will be going to [facility] today. Patient will need a primary care provider in the outpatient setting as apparently she was discharged from Dr. Hart's practice due to her behavior. Guarded prognosis and high risk for readmissions given patient's significant comorbidities. Physical exam: Gen: This is a 83-year-old female who is awake, alert and oriented x 1-2, baseline, well-developed, elderly appearing, obese HEENT: Head is atraumatic, normocephalic. Pupils equal, round. Sclerae is anicteric. NECK: Supple. No JVD. No lymphadenopathy. No thyromegaly. LUNGS: Diminished breath sounds bilaterally otherwise clear to auscultation. No wheezes or rhonchi. No intercostal retractions. HEART: S1, S2 are muffled ABDOMEN: Soft. Bowel sounds are present. No masses. No tenderness. EXTREMITIES: No pedal edema. No calf tenderness. NEUROLOGICAL: Patient is awake, alert and oriented x 12. Cranial nerves 2 through 12 are grossly intact. Diffusely weak Please refer to medication reconciliation sheet for a list of medications. The impression and plan of care has been dictated by Kimberlee Lopez, Nurse Practitioner as directed. Dr. Joie MD I have performed a history and examination and MDM of this patient, discussed the same with the dictator, and agree with the dictator's assessment and plan as written ,documented as a scribe. Based on total visit time, I have performed more than 50% of the visit. Patient Condition at Discharge: Fair Plan - Discharge Summary Discharge Rx Participant: No New Discharge Prescriptions: New Losartan [Cozaar] 50 mg PO DAILY tab HYDROcodone/APAP 5-325MG [Red Level 5-325] 1 each PO Q4HR PRN #4 tab PRN Reason: Moderate Pain (Scale 4 To 6) Pantoprazole [Protonix] 40 mg PO AC-BRKFST tab QUEtiapine [SEROquel] 25 mg PO HS tab OLANZapine [ZyPREXA] 2.5 mg PO TID PRN tab PRN Reason: Agitation Linezolid [Zyvox] 600 mg PO Q12H 7 Days #14 tab INSULIN LISPRO (HumaLOG) [HumaLOG] 0 unit SQ ACHS each Metoprolol Tartrate [Lopressor] 50 mg PO BID tab Continue Latanoprost [Xalatan 0.005%] 1 drop BOTH EYES HS@1999 Calcium Citrate/Vitamin D3 [Citracal + D Maximum Caplet] 1 tab PO DAILY@0800 Adalimumab [Humira(Cf) Pen] 40 mg SQ Q14D metFORMIN HCL [Glucophage] 1,000 mg PO BID@0800,1999 Acetaminophen Tab [Tylenol] 500 mg PO QID@02,08,14,20 SILVER sulfADIAZINE Cream [Silvadene 1% Cream] 1 applic TOPICAL DAILY@0800 Magnesium Hydroxide [Milk of Magnesia] 2,400 mg PO DAILY PRN ml PRN Reason: Constipation Docusate [Colace] 100 mg PO BID PRN PRN Reason: Constipation Multivitamins, Thera [Multivitamin (formulary)] 1 tab PO DAILY@0800 Empagliflozin [Jardiance] 10 mg PO DAILY@0800 Nystatin 100,000 Unit/gm Powd [Mycostatin Powder] 1 applic TOPICAL TID traZODone HCL [Desyrel] 100 mg PO HS Nitroglycerin Sl Tabs [Nitrostat] 0.4 mg SL Q5M PRN PRN Reason: Chest Pain Apixaban [Eliquis] 5 mg PO BID@799,1999 Tolterodine ER [Detrol LA] 4 mg PO DAILY@0800 Potassium Chloride ER [K-Dur 20] 20 meq PO BID@08,1999 Magnesium Oxide [Mag-Ox] 250 mg PO DAILY@0800 Loratadine [Claritin] 10 mg PO DAILY@0800 Albuterol Nebulized [Ventolin Nebulized] 2.5 mg INHALATION RT-Q6H PRN PRN Reason: Shortness Of Breath Insulin Glargine,Hum.rec.anlog [Lantus Solostar Pen] 20 units SQ HS Bumetanide [BUMEX] 1 mg PO DAILY@0800 Sennosides [Senokot] 17.2 mg PO HS PRN PRN Reason: Constipation Gentamicin 0.1% Cream 1 applic TOPICAL DAILY Levothyroxine Sodium [Synthroid] 200 mcg PO DAILY@0800 Discontinued methocarbamoL [Robaxin-750] 750 mg PO QID@,,, Gabapentin 600 mg PO TID@,, Insulin Lispro [humaLOG Kwikpen] See Protocol SQ TID-W/MEALS Insulin Lispro [humaLOG Kwikpen] 5 unit SQ TID-W/MEALS Digoxin [Lanoxin] 125 mcg PO Q48H oxyCODONE-APAP 10-325MG [Percocet 10-325 mg] 1 tab PO QID@,,, Discharge Medication List Latanoprost [Xalatan 0.005%] 1 drop BOTH EYES HS@199908/11/17 [History] Calcium Citrate/Vitamin D3 [Citracal + D Maximum Caplet] 1 tab PO DAILY@0811/16/21 [History] Nitroglycerin Sl Tabs [Nitrostat] 0.4 mg SL Q5M PRN 11/16/21 [History] Adalimumab [Humira(Cf) Pen] 40 mg SQ Q14D 01/09/22 [History] Apixaban [Eliquis] 5 mg PO BID@799,199905/02/22 [History] Tolterodine ER [Detrol LA] 4 mg PO DAILY@0805/15/23 [History] metFORMIN HCL [Glucophage] 1,000 mg PO BID@799,199905/25/23 [History] Acetaminophen Tab [Tylenol] 500 mg PO QID@,,,11/23/23 [History] Loratadine [Claritin] 10 mg PO DAILY@0811/23/23 [History] Magnesium Oxide [Mag-Ox] 250 mg PO DAILY@79911/23/23 [History] Potassium Chloride ER [K-Dur 20] 20 meq PO BID@799,199911/23/23 [History] SILVER sulfADIAZINE Cream [Silvadene 1% Cream] 1 applic TOPICAL DAILY@0800 01/05/24 [History] Magnesium Hydroxide [Milk of Magnesia] 2,400 mg PO DAILY PRN ml 01/10/24 [Rx] Albuterol Nebulized [Ventolin Nebulized] 2.5 mg INHALATION RT-Q6H PRN 02/14/24 [History] Bumetanide [BUMEX] 1 mg PO DAILY@0800 02/14/24 [History] Docusate [Colace] 100 mg PO BID PRN 02/14/24 [History] Empagliflozin [Jardiance] 10 mg PO DAILY@0800 02/14/24 [History] Insulin Glargine,Hum.rec.anlog [Lantus Solostar Pen] 20 units SQ HS 02/14/24 [History] Multivitamins, Thera [Multivitamin (formulary)] 1 tab PO DAILY@0800 02/14/24 [History] Sennosides [Senokot] 17.2 mg PO HS PRN 02/14/24 [History] Gentamicin 0.1% Cream 1 applic TOPICAL DAILY 05/31/24 [History] Levothyroxine Sodium [Synthroid] 200 mcg PO DAILY@0800 05/31/24 [History] Nystatin 100,000 Unit/gm Powd [Mycostatin Powder] 1 applic TOPICAL TID 06/27/24 [History] traZODone HCL [Desyrel] 100 mg PO HS 06/27/24 [History] HYDROcodone/APAP 5-325MG [Red Level 5-325] 1 each PO Q4HR PRN #4 tab 07/03/24 [Rx] INSULIN LISPRO (HumaLOG) [HumaLOG] 0 unit SQ ACHS each 07/03/24 [Rx] Linezolid [Zyvox] 600 mg PO Q12H 7 Days #14 tab 07/03/24 [Rx] Losartan [Cozaar] 50 mg PO DAILY tab 07/03/24 [Rx] Metoprolol Tartrate [Lopressor] 50 mg PO BID tab 07/03/24 [Rx] OLANZapine [ZyPREXA] 2.5 mg PO TID PRN tab 07/03/24 [Rx] Pantoprazole [Protonix] 40 mg PO AC-BRKFST tab 07/03/24 [Rx] QUEtiapine [SEROquel] 25 mg PO HS tab 07/03/24 [Rx] Activity/Diet/Wound Care/Special Instructions: Patient will be going to [facility] Patient needs a primary care provider to establish with Activity as tolerated Continue Zyvox twice daily for the next 1 week Continue monitoring Accu-Cheks AC and at bedtime Continue with sliding scale NovoLog sliding scale 0-150 equals 0 units 151-200 equals 2 units 201-250 equals 4 units 251-300 equals 6 units 301-350 equals 8 units 351-400 equals 10 units Please notify provider if blood sugar is 400 or above Continue with consistent carb diet Continue with Glucerna 3 times daily between meals Discharge Disposition: TRANSFER TO SNF/ECF
[2024-07-04 11:42] LABS: Glucose,Whole Blood 235 mg/dL (70-110)
[2024-07-04] MEDS: ALPRAZolam 0.5 MG TAB PO STA (13:37)
--- NOTE | 2024-07-04 15:55 | P.PN ---
Subjective Progress Note Date: 07/04/24 Principal diagnosis: Reason for follow-up is ESBL E. coli UTI Patient is a 83-year-old female with a past medical history significant for Atrial Fibrillation, Coronary Artery Disease (CAD), Cancer, Diabetes Mellitus, Hyperlipidemia, Hypertension, Musculoskeletal Disorder, Neurologic Disorder, Osteoarthritis (OA), Pneumonia, Renal Disease, Rheumatoid Arthritis (RA), Skin Disorder, Thyroid Disorder, patient has been brought to the hospital for evaluation of mental status changes and failure to thrive she did have a positive UA concerning for UTI with recent urine culture positive for ESBL prompted this consultation On today's evaluation that is 07/04/2024, Patient is afebrile patient is currently on room air and denies having any shortness of breath, the patient denies any chest pain or cough, the patient denies any nausea vomiting did not have any abdominal pain and no diarrhea. Patient did have a creatinine 0.46 no CBC was done today Objective - Vital Signs Vital signs: Vital Signs Temp 97.9 F 07/04/24 07:21 Pulse 77 07/04/24 07:21 Resp 17 07/04/24 07:21 BP 133/70 07/04/24 07:21 Pulse Ox 95 07/04/24 07:21 FiO2 Intake & Output 07/03/24 07/04/24 07/04/24 18:59 06:59 18:59 Intake Total 240 Output Total 4 Balance 236 Weight 97 kg 100.5 kg Intake: Oral 240 Output: Urine 4 Other: Voiding Method Toilet Bedside Commode Bedside Commode Bedpan Bedpan # Voids 1 # Bowel Movements 1 - Exam GENERAL DESCRIPTION: An elderly female lying in bed in no distress RESPIRATORY SYSTEM: Unlabored breathing , decreased breath sounds at bases HEART: S1 S2 regular rate and rhythm , ABDOMEN: Soft , no tenderness EXTREMITIES: No edema feet - Labs CBC & Chem 7: 06/29/24 07:12 07/04/24 06:19 Labs: Abnormal Lab Results - Last 24 Hours (Table) 07/03/24 07/03/24 07/04/24 Range/Units 16:28 19:57 06:16 Creatinine (0.52-1.04) mg/dL POC Glucose (mg/dL) 230 H 264 H 219 H (70-110) mg/dL 07/04/24 07/04/24 Range/Units 06:19 11:40 Creatinine 0.46 L (0.52-1.04) mg/dL POC Glucose (mg/dL) 235 H (70-110) mg/dL Assessment and Plan (1) UTI due to extended-spectrum beta lactamase (ESBL) producing Escherichia coli Status: Acute Code(s): N39.0 - URINARY TRACT INFECTION, SITE NOT SPECIFIED; B96.29 - OTH ESCHERICHIA COLI THE CAUSE OF DISEASES CLASSD ELSWHR; Z16.12 - EXTENDED SPECTRUM BETA LACTAMASE (ESBL) RESISTANCE SNOMED Code(s): 233137870 (2) Allergy to cephalosporin Status: Acute Code(s): Z88.1 - ALLERGY STATUS TO OTHER ANTIBIOTIC AGENTS SNOMED Code(s): 358164765 (3) VRE (vancomycin resistant enterococcus) culture positive Status: Acute Code(s): Z22.39 - CARRIER OF OTHER SPECIFIED BACTERIAL DISEASES SNOMED Code(s): 242985710 Plan: 1patient presented to hospital with mental status changes hallucination failure to thrive in this patient noted to have significantly positive UA with a recent urine culture positive for ESBL E. coli however it is very hard to get any history from this patient as far as urinary symptoms and did not have any elevated white count 2-patient did have a cephalexin allergy that would limit the number of antibiotics safe to use 3- patient repeat urine culture now growing VRE for which the patient advised short course of oral Zyvox on discharge this was discussed with E [employer] ANALYST for admitting team Dictation was produced using [employer] dictation software. please excuse any grammatical, word or spelling errors. Time with Patient: Less than 30
--- NOTE | 2024-07-04 15:55 | P.PN ---
Subjective Progress Note Date: 07/03/24 Principal diagnosis: Reason for follow-up is ESBL E. coli UTI Patient is a 83-year-old female with a past medical history significant for Atrial Fibrillation, Coronary Artery Disease (CAD), Cancer, Diabetes Mellitus, Hyperlipidemia, Hypertension, Musculoskeletal Disorder, Neurologic Disorder, Osteoarthritis (OA), Pneumonia, Renal Disease, Rheumatoid Arthritis (RA), Skin Disorder, Thyroid Disorder, patient has been brought to the hospital for evaluation of mental status changes and failure to thrive she did have a positive UA concerning for UTI with recent urine culture positive for ESBL prompted this consultation On today's evaluation that is 07/03/2024, the patient continues to be afebrile, the patient is on room air and breathing comfortably, the Pt denies having any chest pain or cough, the patient denies having any abdominal pain no vomiting or any diarrhea has been reported by the nursing staff Urine is done growing VRE Objective - Vital Signs Vital signs: Vital Signs Temp 98.1 F 07/03/24 07:25 Pulse 98 07/03/24 09:00 Resp 19 07/03/24 09:00 BP 116/57 07/03/24 00:00 Pulse Ox 99 07/03/24 07:25 FiO2 Intake & Output 07/02/24 07/03/24 07/03/24 18:59 06:59 18:59 Weight 97 kg 97 kg Other: Voiding Method Toilet Toilet # Voids 1 1 - Exam GENERAL DESCRIPTION: An elderly female lying in bed in no distress RESPIRATORY SYSTEM: Unlabored breathing , decreased breath sounds at bases HEART: S1 S2 regular rate and rhythm , ABDOMEN: Soft , no tenderness EXTREMITIES: No edema feet - Labs CBC & Chem 7: 06/29/24 07:12 07/04/24 06:19 Labs: Abnormal Lab Results - Last 24 Hours (Table) 07/02/24 07/02/24 Range/Units 16:14 20:22 POC Glucose (mg/dL) 241 H 320 H (70-110) mg/dL Microbiology - Last 24 Hours (Table) 06/30/24 20:37 Urine Culture - Final Urine,Voided Enterococcus faecium VRE Assessment and Plan (1) UTI due to extended-spectrum beta lactamase (ESBL) producing Escherichia coli Status: Acute Code(s): N39.0 - URINARY TRACT INFECTION, SITE NOT SPECIFIED; B96.29 - OTH ESCHERICHIA COLI THE CAUSE OF DISEASES CLASSD ELSWHR; Z16.12 - EXTENDED SPECTRUM BETA LACTAMASE (ESBL) RESISTANCE SNOMED Code(s): 922239858 (2) Allergy to cephalosporin Status: Acute Code(s): Z88.1 - ALLERGY STATUS TO OTHER ANTIBIOTIC AGENTS SNOMED Code(s): 732672720 Plan: 1patient presented to hospital with mental status changes hallucination failure to thrive in this patient noted to have significantly positive UA with a recent urine culture positive for ESBL E. coli however it is very hard to get any history from this patient as far as urinary symptoms and did not have any elevated white count 2-patient did have a cephalexin allergy that would limit the number of antibiotics safe to use 3- patient repeat urine culture now growing VRE vancomycin Invanz has been discontinued patient started on oral Zyvox Dictation was produced using [employer] software. please excuse any grammatical, word or spelling errors. Time with Patient: Less than 30
== END 2024-07-04 15:40 | DRG 689 ==
LOC: EC 18:22 → SUPCPDRO 18:22 → 3SCARD 23:03 → 4SSUR 06-30 14:52
PROVIDERS: ADMIT Hospitalist; ATTEND Hospitalist
DX: N39.0 Urinary tract infection, site not specified (principal); G93.41 Metabolic encephalopathy; I11.0 Hypertensive heart disease with heart failure; F05 Delirium due to known physiological condition; I27.20 Pulmonary hypertension, unspecified; F03.918 Unspecified dementia, unspecified severity, with other behavioral disturbance; E11.65 Type 2 diabetes mellitus with hyperglycemia; B95.2 Enterococcus as the cause of diseases classified elsewhere; B96.20 Unspecified Escherichia coli [E. coli] as the cause of diseases classified elsewhere; E66.01 Morbid (severe) obesity due to excess calories; M35.00 Sjogren syndrome, unspecified; E03.9 Hypothyroidism, unspecified; I08.3 Combined rheumatic disorders of mitral, aortic and tricuspid valves; I42.8 Other cardiomyopathies; I48.21 Permanent atrial fibrillation; I50.32 Chronic diastolic (congestive) heart failure; Z16.12 Extended spectrum beta lactamase (ESBL) resistance; R45.851 Suicidal ideations; Z16.21 Resistance to vancomycin; K62.5 Hemorrhage of anus and rectum; M06.9 Rheumatoid arthritis, unspecified; Z79.4 Long term (current) use of insulin; R62.7 Adult failure to thrive; M19.90 Unspecified osteoarthritis, unspecified site; B96.4 Proteus (mirabilis) (morganii) as the cause of diseases classified elsewhere; Z79.890 Hormone replacement therapy; E78.5 Hyperlipidemia, unspecified; Z68.36 Body mass index [BMI] 36.0-36.9, adult; I25.10 Atherosclerotic heart disease of native coronary artery without angina pectoris; Z79.01 Long term (current) use of anticoagulants; Z79.84 Long term (current) use of oral hypoglycemic drugs; Z79.899 Other long term (current) drug therapy; Z85.828 Personal history of other malignant neoplasm of skin; Z98.42 Cataract extraction status, left eye; Z98.41 Cataract extraction status, right eye; Z86.19 Personal history of other infectious and parasitic diseases; Z87.440 Personal history of urinary (tract) infections; Z85.820 Personal history of malignant melanoma of skin; Z88.1 Allergy status to other antibiotic agents; Z91.148 Patient's other noncompliance with medication regimen for other reason; Z96.1 Presence of intraocular lens; Z87.891 Personal history of nicotine dependence; Z87.01 Personal history of pneumonia (recurrent); Z88.8 Allergy status to other drugs, medicaments and biological substances; Z96.643 Presence of artificial hip joint, bilateral; Z91.81 History of falling
CPT/HCPCS: 36415; 71045; 76770; 80048; 80053; 80162; 80202; 80320; 81001; 82565; 83036; 83735; 83880; 84484; 85025; 85610; 85730; 87040; 87077; 87086; 87186; 93005; 93306; 96361; 96365; 96366; 96367; 96372; 96375; 99285